=== PATIENT | male | born 1980 | race Caucasian/White ===

== ENCOUNTER 2022-11-13 21:36 | Emergency (ER) | payer MEDICARE, MEDICAID, SELFPAY ==
[2022-11-13 21:42] VITALS: BP 158/98; PULSE 115; RESP 18; TEMP 36.9; O2SAT 90; BMI 44.0
--- NOTE | 2022-11-13 21:42 | ED_ITS ---
HPI - General Adult General: Chief complaint: General Medical Stated complaint: BS 405, light headed Time Seen by Provider: 11/13/22 21:42 History of Present Illness: Mr. Nassar is a 42-year-old gentleman with history of diabetes presenting to the emergency department due to high blood sugar. Reports being at his baseline health though few weeks ago did have medication adjustment including decreasing insulin and discontinuing Eliquis. He reports blood sugars typically in the 100s range however this evening he noticed his blood sugar to be high. He notes associated generalized malaise, some nausea, lightheadedness. He is requiring oxygen and does not typically as well as he is currently tachycardic which is reportedly abnormal for him. Intensity symptoms is mild to moderate. Course has persisted. No other specific changes in health, exacerbating, or alleviating factors identified. Onset (ago): hour(s) Severity: moderate Relieving factors: none Exacerbating factors: none Associated symptoms: Reports malaise, nausea and other Review of Systems General: Reports: 10 or more systems reviewed and unremarkable except in HPI and below Const: Reports: malaise GI: Reports: nausea PFSH ED PFSH: Medical History Psychiatric care Social History Substance/Drug Use: never Physical Exam Const: COMMON NORMALS: patient oriented x3 and alert GENERAL APPEARANCE: cooperative and well developed HENMT: COMMON NORMALS: normocephalic and atraumatic HEAD & SCALP: normocephalic and atraumatic Eye: COMMON NORMALS: conjunctivae normal CONJUNCTIVA: Yes conjunctivae normal SCLERA: sclerae normal Neck/C-Spine: COMMON NORMALS: supple GENERAL: Yes trachea midline Resp: COMMON NORMALS: clear to auscultation bilaterally EFFORT & INSPECTION: Yes able to speak in complete sentences AUSCULTATION: clear to auscultation bilaterally Cardio: COMMON NORMALS: regular rhythm RATE: tachycardic RHYTHM: regular rhythm GI: COMMON NORMALS: Soft to palpation PALPATION: Yes Soft to palpation and No Tenderness to palpation present (GI) PERCUSSION: normal to percussion Extremity: GENERAL: Yes normal exam except as noted and No edema Neuro: COMMON NORMALS: patient oriented x3, CN's II-XII intact bilaterally, moves all extremities, no focal motor deficits and no sensory deficits noted SENSORIUM/ORIENTATION: Yes alert and No Orientation impaired Psych: COMMON NORMALS: mental status grossly normal and Normal thought process present THOUGHT PROCESS: Normal thought process present Course Vital Signs: Vital signs: Vital Signs Temperature 98.4 F 11/13/22 21:42 Pulse Rate 105 H 11/14/22 00:32 Respiratory Rate 18 11/13/22 21:42 Blood Pressure 163/84 11/14/22 00:30 Pulse Oximetry 89 L 11/14/22 00:32 Oxygen Delivery Me thod 11/14/22 00:32 Oxygen Flow Rate 2 11/14/22 00:32 MDM - General Adult Medical Decision Making 42-year-old gentleman presenting with asymptomatic high blood glucose. Exam as above. Patient is nontoxic appearance. Patient's room air oxygen saturation is on the low side of normal, he reports longstanding history of similar and perhaps has been prescribed oxygen in the past though he reports essentially had extensive evaluation without clear etiology identified in previous hospitalizations. ?Pickwickian etiology. No respiratory distress noted on exam. EKG notable for sinus tachycardia with nonspecific ST segment abnormalities, no STEMI. Labs with no leukocytosis, mildly elevated hemoglobin. Metabolic panel with mild spurious hyponatremia. Glucose is elevated with normal anion gap and bicarb, additional urine and serum ketones are negative. No evidence of UTI. Chest x-ray with basilar infiltrate. Patient for significant improved with insulin, fluids, RT treatments. He expresses a strong desire for discharge, he adamantly declines admission. Most likely etiology of patient symptoms is likely multifactorial, possible pneumonia and hyperglycemia. I will plan to add sliding scale acting insulin as well as treatment antibiotics. The results of ED evaluation were discussed with the patient including prescriptions and/or symptomatic cares (if applicable) including appropriate and responsible use, followup plan, and return precautions. The patient verbalized understanding and felt safe for discharge. Medical Records I reviewed the patient's medical records. Lab Data I reviewed the patient's lab results. 11/13/22 22:22 11/14/22 00:14 Radiology Impressions Chest X-Ray 11/13/22 21:58 IMPRESSION: 1. Mild bibasilar opacities may represent edema, inflammation, or infection. 2. No pneumothorax. No large pleural effusion. Laboratory Results WBC 5.3 10^3/uL (4.0-10.0) 11/13/22 22:22 RBC 5.97 10^6/uL (4.1-5.3) H 11/13/22 22:22 Hgb 16.9 g/dL (11.7-16.6) H 11/13/22 22:22 Hct 50.4 % (42.0-52.0) 11/13/22 22:22 MCV 84.4 fl (80-94) 11/13/22 22:22 MCH 28.3 pg (28.0-34.0) 11/13/22 22:22 MCHC 33.5 g/dL (30.0-36.0) 11/13/22 22: RDW 13.2 % (12.1-15.1) 11/13/22 22: Plt Count 204 10^3/cmm (130-400) 11/13/22 22:22 MPV 11.3 fL (7.4-10.4) H 11/13/22 22:22 Neut % (Auto) 48.3 % 11/13/22 22:22 Lymph % (Auto) 39.9 % 11/13/22 22:22 [place] % (Auto) 8.9 % 11/13/22 22:22 Eos % (Auto) 1.3 % 11/13/22 22: Baso % (Auto) 0.8 % 11/13/22 22:22 Neut # (Auto) 2.54 10^3/uL (1.8-7.7) 11/13/22 22:22 Lymph # (Auto) 2.1 10^3/uL (0.8-4.8) 11/13/22 22:22 [place] # (Auto) 0.5 10^3/uL (0.2-0.9) 11/13/22 22:22 Eos # (Auto) 0.1 10^3/uL (0.0-0.8) 11/13/22 22: Baso # (Auto) 0.0 10^3/uL (0.0-0.1) 11/13/22 22:22 Nucleated RBC % (auto) 0 % 11/13/22 22:22 Nucleated RBCs # 0.0 /100WBC 11/13/22 22:22 Specimen Type Venous 01/09/23 22:45 Sample Site Not specified 11/13/22 22:45 Misael Test N/a 11/13/22 22:45 VBG pH 7.43 (7.32-7.42) H 11/13/22 22:45 VBG pCO2 50.4 mmHg (41-51) 11/13/22 22:45 VBG pO2 30.1 mmHg (25-40) 11/13/22 22:45 VBG HCO3 33.2 mmol/L (24-28) H 11/13/22 22:45 VBG Base Excess 7.0 mmol/L (-3.0-3.0) H 11/13/22 22:45 VBG Hematocrit 51.4 % (42-52) 11/13/22 22:45 O2 Delivery Device 11/13/22 22:45 Information Systems Security Analyst ID Droch 11/13/22 22:45 Sodium 136 mmol/L (136-145) 11/14/22 00:14 Potassium 5.1 mmol/L (3.5-5.1) 11/14/22 00:14 Chloride 97 mmol/L (98-107) L 11/14/22 00:14 Carbon Dioxide 27 mmol/L (22-29) 11/14/22 00:14 Anion Gap 17.1 (5-19) 11/14/22 00:14 BUN 9 mg/dL (6-20) 11/14/22 00:14 Creatinine 0.8 mg/dL (0.7-1.2) 11/14/22 00:14 GFR Calculation 105.5 mL/min (90-130) 11/14/22 00:14 Glucose 325 mg/dL (65-115) H 11/14/22 00:14 POC Glucose 194 mg/dL (70-110) H 11/14/22 00:57 Calculated Osmolality 293 mOsm/kg (285-295) 11/14/22 00:14 Calcium 8.3 mg/dL (8.5-10.5) L 11/14/22 00:14 Total Bilirubin 0.2 mg/dL (0.15-1.2) 11/14/22 00:14 AST 11 U/L (0-40) 11/14/22 00:14 ALT 14 U/L (0-41) 11/14/22 00:14 Alkaline Phosphatase 84 U/L (40-130) 11/14/22 00:14 C-Reactive Protein 3.0 mg/L (0.0-4.9) 11/13/22 22:22 NT-Pro-B Natriuret Pep 5 pg/mL (0-125) 11/13/22 22:22 Total Protein 6.1 g/dL (6.6-8.7) L 11/14/22 00:14 Albumin 4.0 g/dL (3.5-5.2) 11/14/22 00:14 Globulin 2.1 g/dL (1.3-4.6) 11/14/22 00:14 Procalcitonin 0.05 ng/mL (0-0.5) 11/13/22 22:22 TSH 4.22 uIU/mL (0.27-4.20) H 11/13/22 22:22 Free T4 1.09 ng/dL (0.82-1.77) 11/13/22 22:22 Urine Color Colorless (Yellow) 11/13/22 23:00 Urine Appearance Clear (CLEAR) 11/13/22 23:00 Urine pH 8 (5-7) H 11/13/22 23:00 Ur Specific [place] 1.015 (1.005-1.030) 11/13/22 23:00 Urine Protein Neg (Negative) 11/13/22 23:00 Urine Glucose (UA) 4+ (Normal) H 11/13/22 23:00 Urine Ketones Negative (Negative) 11/13/22 23:00 Urine Blood Neg (Negative) 11/13/22 23:00 Urine Nitrate Negative (Negative) 11/13/22 23:00 Urine Bilirubin Neg (Negative) 11/13/22 23:00 Prot Sulfosalicylic Acd Negative (Negative) 11/13/22 23:00 Urine Urobilinogen Norm mg/dL (Negative) 11/13/22 23:00 Ur Leukocyte Esterase Negative (Negative) 11/13/22 23:00 Serum Ketones Negative (Negative) 11/13/22 22:22 Influenza Type A Ag negative (Negative) 11/13/22 22:15 Influenza Type B Ag negative (Negative) 11/13/22 22:15 SARS-CoV-2 Ag (Rapid) negative (Negative) 11/13/22 22:15 Discharge Plan Discharge Patient Disposition: Home Clinical Impression: Hyperglycemia, Pneumonia Condition: Stable Prescriptions: New insulin aspart U-100 100 unit/mL (3 mL) insulin pen See Rx Instructions .ROUTE .COMPLEX Qty: 15 0RF Rx Instructions: BG 150-199: 1 unit bolus, 200-249: 3 units bolus, 250-299: 5 units bolus, 300-349: 7 units bolus, BG Over 350: 8 units bolus Insulin amoxicillin-pot clavulanate 875-125 mg tablet 1 tab PO BID Qty: 20 0RF albuterol sulfate 90 mcg/actuation HFA aerosol inhaler 2 inh inhalation Q4H PRN (Reason: shortness of breath or wheezing) Qty: 8.5 0RF No Action Humulin 70/30 U-100 Insulin 100 unit/mL (70-30) suspension 10 unit SUBCUT DAILY clonazepam 1 mg tablet,disintegrating 1 mg PO DAILY haloperidol 2 mg tablet 2 mg PO BID sertraline 100 mg tablet 100 mg PO DAILY gabapentin 300 mg capsule 300 mg PO BID divalproex 500 mg tablet extended release 24 hr 500 mg PO DAILY prazosin 1 mg capsule 1 mg PO BID atorvastatin 40 mg tablet 40 mg PO DAILY metformin 500 mg tablet extended release 24hr 500 mg PO BID aspirin 81 mg tablet,delayed release (DR/EC) 81 mg PO DAILY trazodone 50 mg tablet 50 mg PO DAILY Jardiance 25 mg tablet 25 mg PO DAILY hydroxyzine HCl 50 mg tablet 50 mg PO QID PRN acetaminophen 500 mg capsule 500 mg PO QID PRN Antacid (calcium carbonate) 215 mg calcium (500 mg) tablet,chewable 215 mg PO BID Discharge Orders: Discharge ED (Routine); Ordered 11/14/22 Ordered By: Ra Boyd Discharge Diet: Diabetic Discharge Activity: Increase activity as tolerated Patient Instructions: Pneumonia (ED), Diabetic Hyperglycemia (ED) Activity Restrictions/Additional Instructions: Thank you for visiting the emergency department. You were seen and evaluated for high blood sugar. Exact cause of this is unclear though may be related to pneumonia or recent medication changes. I recommend reinitiation of insulin. Please check your blood sugar before meals and use the sliding scale as appropriate based on the results. Watch for signs of low blood sugar. * BG 150-199: 1 unit bolus Insulin * BG 200-249: 3 units bolus Insulin * BG 250-299: 5 units bolus Insulin * BG 300-349: 7 units bolus Insulin * BG Over 350: 8 units bolus Insulin Please follow-up with your primary care provider. Return to the emergency department for worsening symptoms or anything else that you are concerned about a feel needs emergency department evaluation. Coding Level of Care Code ED [employer]
--- NOTE | 2022-11-13 21:58 | XRR_ITS ---
PROCEDURE INFORMATION: Exam: XR Chest Exam date and time: 11/13/2022 10:04 PM Age: 42 years old Clinical indication: Pain; Other: Tachycardia; Additional info: Tachycardia, vomit, cough TECHNIQUE: Imaging protocol: Radiologic exam of the chest. Views: 1 view. COMPARISON: No relevant prior studies available. FINDINGS: Lungs: Opacities may represent edema, inflammation, or infection suspected linear opacity in the lateral right lung may represent atelectasis.. No consolidation. Pleural spaces: Unremarkable. No pleural effusion. No pneumothorax. Heart/Mediastinum: Suspected prominence of the cardiac silhouette on portable view.. Bones/joints: There are degenerative changes of the spine.. XR/XR chest 1V portable [id number] IMPRESSION: 1. Mild bibasilar opacities may represent edema, inflammation, or infection. 2. No pneumothorax. No large pleural effusion.
--- NOTE | 2022-11-13 22:09 | ECG_ITS ---
[facility] Test Date: 2022-11-13 Pat Name: Zaire Nassar Department: Room: Gender: Male Contract Writer: : 1980 Requested By: Ra Boyd Order Number: [id number] Drew MD: Skinny Talbert M.D. Measurements Intervals [place] Rate: 110 P: 46 TX: 181 QRS: 70 QRSD: 105 T: 30 QT: 322 QTc: 436 Interpretive Statements SINUS TACHYCARDIA LOW QRS VOLTAGE IN PRECORDIAL LEADS [QRS DEFLECTION < 1.0 mV IN CHEST LEADS] ANTEROSEPTAL MYOCARDIAL INFARCTION , OF INDETERMINATE AGE [40+ ms Q WAVE IN V1-V4] No previous ECG available for comparison Electronically Signed On 11-14-2022 11:57:49 BIOMASS BOILER OPERATOR by Skinny Talbert M.D. [id number]
[2022-11-13] MEDS: sodium chloride 0.9% 1,000 ML 999 ML IV (22:19)
[2022-11-13 22:28] LABS: Basophils % 0.8 %; Eosinophils # 0.1 10^3/uL (0.0-0.8); Eosinophils % 1.3 %; Hematocrit 50.4 % (42.0-52.0); Hemoglobin 16.9 g/dL (11.7-16.6); Lymphocytes # 2.1 10^3/uL (0.8-4.8); Lymphocytes % 39.9 %; Mean Corpuscular HGB Conc 33.5 g/dL (30.0-36.0); Mean Corpuscular Hemoglobin 28.3 pg (28.0-34.0); Mean Corpuscular Volume 84.4 fl (80-94); Mean Platelet Volume 11.3 fL (7.4-10.4); Monocytes # 0.5 10^3/uL (0.2-0.9); Monocytes % 8.9 %; Neutrophils # 2.54 10^3/uL (1.8-7.7); Neutrophils % 48.3 %; Nucleated Red Blood Cells % 0 %; Platelet Count 204 10^3/cmm (130-400); Red Blood Count 5.97 10^6/uL (4.1-5.3); Red Cell Distribution Width 13.2 % (12.1-15.1); White Blood Count 5.3 10^3/uL (4.0-10.0)
[2022-11-13 22:39] LABS: Influenza A by IFA negative (Negative); Influenza B by IFA negative (Negative)
[2022-11-13 22:40] LABS: SARS Covid-2 Antigen negative (Negative)
[2022-11-13 22:48] LABS: Ketone (Acetest) Serum Negative (Negative)
[2022-11-13 22:56] LABS: Blood Gas Sample Type Venous; HCO3 VBG 33.2 mmol/L (24-28); PCO2 VBG 50.4 mmHg (41-51); PO2 VBG 30.1 mmHg (25-40); Venous Blood Gas Hematocrit 51.4 % (42-52); pH VBG 7.43 (7.32-7.42)
[2022-11-13 23:04] LABS: Add Urine Microscopic? NO; Charge for UA Resulting for Rev
[2022-11-13 23:15] LABS: Bilirubin Urine Neg (Negative); Blood Urine Neg (Negative); Ketones Urine Negative (Negative); Nitrate Urine Negative (Negative); Protein Urine Neg (Negative); Specific Gravity, Urine 1.015 (1.005-1.030); Urine Appearance Clear (CLEAR); Urine Color Colorless (Yellow); pH Urine 8 (5-7)
[2022-11-13 23:16] LABS: Glucose Urine UA 4+ (Normal); Leukocyte Esterase Urine Negative (Negative); Sulfosalicylic Acid Urine Negative (Negative); Urobilinogen Urine Norm (Negative)
[2022-11-13 23:24] LABS: NT Pro B Type Natriuretic Pept 5 pg/mL (0-125); Procalcitonin 0.05 ng/mL (0-0.5); Thyroid Stimulating Hormone 4.22 uIU/mL (0.27-4.20)
[2022-11-14 00:14] LABS: Glucose Point of Care 340 mg/dL (70-110)
[2022-11-14] MEDS: ondansetron 2 mg/ML SDV 2 mL 4 MG IVP (00:15)
[2022-11-14] MEDS: insulin regular-human 100 units/1 mL 10 UNIT IVP (00:15)
[2022-11-14 00:30] VITALS: BP 163/84; PULSE 110; O2SAT 87
[2022-11-14] MEDS: ipratropium-albuterol 3 mL Neb INHALATION (00:31)
[2022-11-14 00:32] VITALS: PULSE 105; O2SAT 89
[2022-11-14 00:51] LABS: Alkaline Phosphatase 84 U/L (40-130); Blood Urea Nitrogen 9 mg/dL (6-20); Calcium 8.3 mg/dL (8.5-10.5); Carbon Dioxide 27 mmol/L (22-29); Chloride 97 mmol/L (98-107); Globulin 2.1 g/dL (1.3-4.6); Glomerular Filtration Rate 105.5 mL/min (90-130); Glucose 325 mg/dL (65-115); Osmolality Calculated 293 mOsm/kg (285-295); Sodium 136 mmol/L (136-145); Total Bilirubin 0.2 mg/dL (0.15-1.2); Total Protein 6.1 g/dL (6.6-8.7)
[2022-11-14 00:59] LABS: Free T4 Free Thyroxine 1.09 ng/dL (0.82-1.77)
[2022-11-14 01:01] LABS: Glucose Point of Care 194 mg/dL (70-110)
[2022-11-14 01:03] LABS: Anion Gap 17.1 (5-19); Potassium 5.1 mmol/L (3.5-5.1)
[2022-11-14] MEDS: amoxicillin-clav 875-125 mg Tablet 1 TAB PO (01:09)
[2022-11-14 01:47] LABS: Alanine Aminotransferase 14 U/L (0-41); Aspartate Amino Transferase 11 U/L (0-40)
[2022-11-14 16:30] LABS: Blood Gas Sample Site Not specified
== END 2022-11-14 01:09 | disposition home or self-care (01) ==
PROVIDERS: Emergency Provider Emergency Medicine
DX: R73.9 Hyperglycemia, unspecified (principal); J18.9 Pneumonia, unspecified organism; Z79.82 Long term (current) use of aspirin; Z79.4 Long term (current) use of insulin; Z79.84 Long term (current) use of oral hypoglycemic drugs; Z20.822 Contact with and (suspected) exposure to COVID-19
CPT/HCPCS: 36416; 71045; 80053; 81003; 82009; 82803; 82962; 83880; 84145; 84439; 84443; 85025; 86140; 87426; 87804; 93005; 94640; 96361; 96374; 96375; 99285; J1815; J2405; J7030

== ENCOUNTER 2022-11-20 21:13 | Emergency (ER) | payer MEDICARE, MEDICAID, SELFPAY ==
[2022-11-20 21:23] VITALS: BP 141/79; PULSE 123; RESP 20; TEMP 36.4; O2SAT 91
--- NOTE | 2022-11-20 21:34 | ECG_ITS ---
[facility] Test Date: 2022-11-20 Pat Name: Zaire Nassar Department: Room: Gender: Male Skills Trainer: : 1980 Requested By: Wale Vyas Order Number: [id number] Drew MD: Skinny Talbert M.D. Measurements Intervals [place] Rate: 125 P: 54 [place]: 170 QRS: -22 QRSD: 120 T: 34 QT: 314 QTc: 453 Interpretive Statements SINUS TACHYCARDIA INDETERMINATE AXIS ANTEROSEPTAL MYOCARDIAL INFARCTION , OF INDETERMINATE AGE [40+ ms Q WAVE IN V1-V4] Compared to ECG 11/13/2022 22:09:25 Indeterminate axis now present Myocardial infarct finding still present Electronically Signed On 11-21-2022 14:45:19 MANAGER OF DISASTER RECOVERY by Skinny Talbert M.D. [id number]
--- NOTE | 2022-11-20 21:41 | CTR_ITS ---
PROCEDURE INFORMATION: Exam: CT Head Without Contrast Exam date and time: 11/20/2022 10:12 PM Age: 42 years old Clinical indication: Syncope and collapse TECHNIQUE: Imaging protocol: Computed tomography of the head without contrast. Radiation optimization: All CT scans at this facility use at least one of these dose optimization techniques: automated exposure control; mA and/or kV adjustment per patient size (includes targeted exams where dose is matched to clinical indication); or iterative reconstruction. COMPARISON: No relevant prior studies available. RADIATION DOSE METRICS: Total DLP (mGy-cm): 1164.68 FINDINGS: Brain: No CT evidence for acute ischemia, mass or hemorrhage. No extra-axial fluid collection, midline shift hydrocephalus. Cerebral ventricles: See Brain finding. Paranasal sinuses: Visualized sinuses are unremarkable. No fluid levels. Mastoid air cells: Visualized mastoid air cells are well aerated. Bones/joints: Unremarkable. No acute fracture. Soft tissues: Unremarkable. CT/CT head wo con* [id number] IMPRESSION: No significant findings
--- NOTE | 2022-11-20 21:41 | XRR_ITS ---
PROCEDURE INFORMATION: Exam: XR Chest Exam date and time: 11/20/2022 9:50 PM Age: 42 years old Clinical indication: Shortness of breath; Additional info: Syncope TECHNIQUE: Imaging protocol: Radiologic exam of the chest. Views: 1 view. COMPARISON: CR (CHEST, ) 11/13/2022 10:04 PM FINDINGS: Lungs: Unremarkable. No consolidation. Pleural spaces: Unremarkable. No pleural effusion. No pneumothorax. Heart/Mediastinum: Unremarkable. No cardiomegaly. Bones/joints: Unremarkable. XR/XR chest 1V portable [id number] IMPRESSION: No significant findings.
--- NOTE | 2022-11-20 21:49 | CTR_ITS ---
PROCEDURE INFORMATION: Exam: CTA Chest With Contrast Exam date and time: 11/20/2022 10:17 PM Age: 42 years old Clinical indication: Shortness of breath and other: Syncope; Additional info: SOB TECHNIQUE: Imaging protocol: Computed tomographic angiography of the chest with contrast. 3D rendering (Not supervised by radiologist): MIP and/or 3D reconstructed images were created by the technologist. Radiation optimization: All CT scans at this facility use at least one of these dose optimization techniques: automated exposure control; mA and/or kV adjustment per patient size (includes targeted exams where dose is matched to clinical indication); or iterative reconstruction. Contrast material: OMNI 350; Contrast volume: 95 ml; Contrast route: INTRAVENOUS (IV); COMPARISON: CR (CHEST, ) 11/20/2022 9:50 PM RADIATION DOSE METRICS: Total DLP (mGy-cm): 485.31 FINDINGS: Pulmonary arteries: Overall exam quality is moderate to good for evaluating the pulmonary arteries although the peripheral vessels are somewhat blurred by motion. There are no convincing intraluminal filling defects to indicate pulmonary embolism. Aorta: Unremarkable. No aortic aneurysm. No aortic dissection. Lungs: Unremarkable. No consolidation. No masses. Pleural spaces: Unremarkable. No pneumothorax. No pleural effusion. Heart: Unremarkable. No cardiomegaly. No pericardial effusion. Coronary arteries: There is minimal calcified plaque in the coronary arteries. Lymph nodes: Unremarkable. No enlarged lymph nodes. Bones/joints: Unremarkable. No acute fracture. Soft tissues: Unremarkable. Other findings: Central mediastinal structures are somewhat blurred by respiratory motion artifact. CT/CT angio chest PE protcl [id number] IMPRESSION: 1. No pulmonary embolism or pneumonia. 2. No significant chest findings.
--- NOTE | 2022-11-20 21:57 | W.ED.SYNCOPE ---
HPI - Syncope General: Chief Complaint: Syncope Stated Complaint: collapsed, high BS, elevated vitals,pnuemonia Time Seen by Provider: 11/20/22 21:41 Source: patient Mode of arrival: ambulatory Limitations: no limitations History of Present Illness: 42-year-old male has a history of intellectual delay and diabetes states over last 2 weeks he been having cough congestion he is currently on antibiotics for a slight pneumonia caregiver states she was there tonight checking his blood pressure and had a syncopal event that lasted roughly 3 to 4 minutes. She states she discharged and went in and found him down he was difficult to arouse patient does not remember this he states that he feels slightly short of breath he denies any pain he is tachycardic here no vomiting or diarrhea. His blood sugar was in the 400s tonight. Associated symptoms: Deny abdominal pain, fever(s), headache(s) or nausea Review of Systems Const: Denies: fever(s), chills, body aches or change in appetite Eyes: Denies: blurry vision or eye discomfort ENMT: Denies: throat pain or dental pain Card: Reports: syncope Resp: Reports: dyspnea GI: Denies: abdominal pain, nausea, vomiting or diarrhea : Denies: dysuria Musc: Denies: neck pain or back pain Skin/Breast: Denies: rash Neuro: Denies: headache(s) Psych: Denies: depression Rayo/Lymph: Denies: easy bruising All/Imm: Denies: urticaria PFSH ED PFSH: Medical History Psychiatric care Social History (Updated 11/20/22 @ 21:59 by Wale Vyas MD) Substance/Drug Use: never Physical Exam Const: COMMON NORMALS: no acute distress, patient oriented x3 and healthy appearing HENMT: COMMON NORMALS: normocephalic and atraumatic HEAD & SCALP: normocephalic and atraumatic Eye: COMMON NORMALS: Equal, round and reactive pupils present and EOMs intact bilaterally PUPIL: Yes Equal, round and reactive pupils present Neck/C-Spine: COMMON NORMALS: full ROM and supple Chest: COMMONS NORMALS: normal inspection of the chest and normal palpation of entire chest wall Resp: COMMON NORMALS: normal respiratory effort, No retractions, No use of accessory muscles and clear to auscultation bilaterally AUSCULTATION: clear to auscultation bilaterally Cardio: COMMON NORMALS: regular rhythm and No murmurs present (Cardio) RATE: tachycardic RHYTHM: regular rhythm GI: COMMON NORMALS: Normal to inspection, nondistended, normoactive bowel sounds present, Soft to palpation, non-tender and no masses PALPATION: Yes Soft to palpation Extremity: COMMON NORMALS: normal to inspection and full ROM Neuro: COMMON NORMALS: patient oriented x3, moves all extremities and no focal motor deficits Psych: COMMON NORMALS: mental status grossly normal, Normal thought process present and cooperative THOUGHT PROCESS: Normal thought process present Skin: COMMON NORMALS: no rashes or lesions noted and no wounds GENERAL SKIN EXAM: no rashes or lesions noted Course Vital Signs: Vital signs: Vital Signs Temperature 97.5 F L 11/20/22 21:23 Pulse Rate 117 H 11/20/22 22:28 Respiratory Rate 20 H 11/20/22 22:28 Blood Pressure 144/90 11/20/22 22:28 Pulse Oximetry 89 L 11/20/22 22:28 Oxygen Delivery Me thod 11/20/22 22:28 MDM - Syncope Medical Decision Making Patient presents here with a syncopal event CT angio here is normal his blood work is all normal he feels improved here as well his glucose is improved he stable for discharge he is to follow-up with PCP and return if worsening he understands agrees to plan. Lab Data 11/20/22 22:00 11/20/22 22:00 Radiology Impressions Chest X-Ray 11/20/22 21:41 IMPRESSION: No significant findings. Head CT 11/20/22 21:41 IMPRESSION: No significant findings Chest CTA 11/20/22 21:49 IMPRESSION: 1. No pulmonary embolism or pneumonia. 2. No significant chest findings. Laboratory Results WBC 4.7 10^3/uL (4.0-10.0) 11/20/22 22:00 RBC 5.77 10^6/uL (4.1-5.3) H 11/20/22 22:00 Hgb 16.2 g/dL (11.7-16.6) 11/20/22 22:00 Hct 49.4 % (42.0-52.0) 11/20/22 22:00 MCV 85.6 fl (80-94) 11/20/22 22:00 MCH 28.1 pg (28.0-34.0) 11/20/22 22:00 MCHC 32.8 g/dL (30.0-36.0) 11/20/22 22:00 RDW 13.6 % (12.1-15.1) 11/20/22 22:00 Plt Count 162 10^3/cmm (130-400) 11/20/22 22:00 MPV 10.9 fL (7.4-10.4) H 11/20/22 22:00 Neut % (Auto) 50.4 % 11/20/22 22:00 Lymph % (Auto) 35.5 % 11/20/22 22:00 [place] % (Auto) 9.9 % 11/20/22 22:00 Eos % (Auto) 1.3 % 11/20/22 22:00 Baso % (Auto) 0.6 % 11/20/22 22:00 Neut # (Auto) 2.38 10^3/uL (1.8-7.7) 11/20/22 22:00 Lymph # (Auto) 1.7 10^3/uL (0.8-4.8) 11/20/22 22:00 [place] # (Auto) 0.5 10^3/uL (0.2-0.9) 11/20/22 22:00 Eos # (Auto) 0.1 10^3/uL (0.0-0.8) 11/20/22 22:00 Baso # (Auto) 0.0 10^3/uL (0.0-0.1) 11/20/22 22:00 Nucleated RBC % (auto) 0 % 11/20/22 22:00 Nucleated RBCs # 0.0 /100WBC 11/20/22 22:00 Specimen Type Arterial 11/20/22 21:41 Sample Site Radial, right 11/20/22 21:41 ABG pH 7.40 (7.35-7.45) 11/20/22 21:41 ABG pCO2 50.2 mmHg (35-45) H 11/20/22 21:41 ABG pO2 53.6 mmHg (80.0-100.0) L 11/20/22 21:41 ABG HCO3 31.0 mmol/L (22-26) H 11/20/22 21:41 ABG Base Excess 4.9 mmol/L (-2.0-2.0) H 11/20/22 21:41 Misael Test Pos 11/20/22 21:41 Hematocrit 48.4 % (42-52) 11/20/22 21:41 O2 Delivery Device Room air 11/20/22 21:41 Passenger Interline Clerk ID [email or web address] 11/20/22 21:41 Sodium 133 mmol/L (136-145) L 11/20/22 22:00 Potassium 4.2 mmol/L (3.5-5.1) 11/20/22 22:00 Chloride 92 mmol/L (98-107) L 11/20/22 22:00 Carbon Dioxide 29 mmol/L (22-29) 11/20/22 22:00 Anion Gap 16.2 (5-19) 11/20/22 22:00 BUN 12 mg/dL (6-20) 11/20/22 22:00 Creatinine 1.2 mg/dL (0.7-1.2) 11/20/22 22:00 GFR Calculation 66.1 mL/min (90-130) L 11/20/22 22:00 Glucose 403 mg/dL (65-115) H 11/20/22 22:00 POC Glucose 363 mg/dL (70-110) H 11/20/22 22:40 Calculated Osmolality 293 mOsm/kg (285-295) 11/20/22 22:00 Lactate 2.6 mmol/L (0.5-2.2) H 11/20/22 22:00 Calcium 9.3 mg/dL (8.5-10.5) 11/20/22 22:00 Total Bilirubin 0.2 mg/dL (0.15-1.2) 11/20/22 22:00 Alkaline Phosphatase 75 U/L (40-130) 11/20/22 22:00 Troponin T Baseline 9 ng/L (0-15) 11/20/22 22:00 NT-Pro-B Natriuret Pep 5 pg/mL (0-125) 11/20/22 22:00 Total Protein 7.0 g/dL (6.6-8.7) 11/20/22 22:00 Albumin 4.3 g/dL (3.5-5.2) 11/20/22 22:00 Globulin 2.7 g/dL (1.3-4.6) 11/20/22 22:00 Urine Color Light yellow (Yellow) 11/20/22 21: Urine Appearance Clear (CLEAR) 11/20/22 21:23 Urine pH 5 (5-7) 11/20/22 21:23 Ur Specific [place] 1.005 (1.005-1.030) 11/20/22 21:23 Urine Protein Neg (Negative) 11/20/22 21: Urine Glucose (UA) 4+ (Normal) H 11/20/22 21: Urine Ketones Negative (Negative) 11/20/22 21: Urine Blood Neg (Negative) 11/20/22: Urine Nitrate Negative (Negative) 11/20/22: Urine Bilirubin Neg (Negative) 11/20/22 21: Urine Urobilinogen Norm mg/dL (Negative) 11/20/22 21: Ur Leukocyte Esterase Negative (Negative) 11/20/22 21: Serum Ketones Negative (Negative) 11/20/22 22:00 EKG Data EKG 1: I personally reviewed and interpreted this EKG as follows: EKG interpretation date: 11/20/22 EKG interpretation time: 21:34 Interpretation: sinus tach hr [address] or t wave abnormalities qrs 120 qtc 388 Discharge Plan Discharge Patient Disposition: Home Clinical Impression: Syncope Condition: Stable Prescriptions: No Action Humulin 70/30 U-100 Insulin 100 unit/mL (70-30) suspension 10 unit SUBCUT DAILY clonazepam 1 mg tablet,disintegrating 1 mg PO DAILY haloperidol 2 mg tablet 2 mg PO BID sertraline 100 mg tablet 100 mg PO DAILY gabapentin 300 mg capsule 300 mg PO BID divalproex 500 mg tablet extended release 24 hr 500 mg PO DAILY prazosin 1 mg capsule 1 mg PO BID atorvastatin 40 mg tablet 40 mg PO DAILY metformin 500 mg tablet extended release 24hr 500 mg PO BID aspirin 81 mg tablet,delayed release (DR/EC) 81 mg PO DAILY trazodone 50 mg tablet 50 mg PO DAILY Jardiance 25 mg tablet 25 mg PO DAILY hydroxyzine HCl 50 mg tablet 50 mg PO QID PRN acetaminophen 500 mg capsule 500 mg PO QID PRN Antacid (calcium carbonate) 215 mg calcium (500 mg) tablet,chewable 215 mg PO BID insulin aspart U-100 100 unit/mL (3 mL) insulin pen See Rx Instructions .ROUTE .COMPLEX Qty: 15 0RF Rx Instructions: BG 150-199: 1 unit bolus, 200-249: 3 units bolus, 250-299: 5 units bolus, 300-349: 7 units bolus, BG Over 350: 8 units bolus Insulin amoxicillin-pot clavulanate 875-125 mg tablet 1 tab PO BID Qty: 20 0RF albuterol sulfate 90 mcg/actuation HFA aerosol inhaler 2 inh inhalation Q4H PRN (Reason: shortness of breath or wheezing) Qty: 8.5 0RF Discharge Orders: Discharge ED (Routine); Ordered 11/20/22 Ordered By: Wale Vyas Discharge Diet: Advance as tolerated Discharge Activity: Resume usual activity Patient Instructions: Syncope (ED) Coding Level of Care Code ED Nurse Case Management for Dasha Fwd Exam Comprehensive
[2022-11-20 22:03] LABS: Add Urine Microscopic? NO; Charge for UA Resulting for Rev
[2022-11-20] MEDS: sodium chloride 0.9% 1,000 ML 999 ML IV ×2 (22:08→22:45)
[2022-11-20 22:18] LABS: Bilirubin Urine Neg (Negative); Blood Urine Neg (Negative); Glucose Urine UA 4+ (Normal); Ketones Urine Negative (Negative); Leukocyte Esterase Urine Negative (Negative); Nitrate Urine Negative (Negative); Protein Urine Neg (Negative); Specific Gravity, Urine 1.005 (1.005-1.030); Urine Appearance Clear (CLEAR); Urine Color Light yellow (Yellow); Urobilinogen Urine Norm (Negative); pH Urine 5 (5-7)
[2022-11-20 22:23] LABS: Basophils % 0.6 %; Eosinophils # 0.1 10^3/uL (0.0-0.8); Eosinophils % 1.3 %; Hematocrit 49.4 % (42.0-52.0); Hemoglobin 16.2 g/dL (11.7-16.6); Lymphocytes # 1.7 10^3/uL (0.8-4.8); Lymphocytes % 35.5 %; Mean Corpuscular HGB Conc 32.8 g/dL (30.0-36.0); Mean Corpuscular Hemoglobin 28.1 pg (28.0-34.0); Mean Corpuscular Volume 85.6 fl (80-94); Mean Platelet Volume 10.9 fL (7.4-10.4); Monocytes # 0.5 10^3/uL (0.2-0.9); Monocytes % 9.9 %; Neutrophils # 2.38 10^3/uL (1.8-7.7); Neutrophils % 50.4 %; Nucleated Red Blood Cells % 0 %; Platelet Count 162 10^3/cmm (130-400); Red Blood Count 5.77 10^6/uL (4.1-5.3); Red Cell Distribution Width 13.6 % (12.1-15.1); White Blood Count 4.7 10^3/uL (4.0-10.0)
[2022-11-20] MEDS: iohexol 350 mg/mL 500 mL Btl (per mL) IV (22:23)
[2022-11-20 22:28] VITALS: BP 144/90; PULSE 117; RESP 20; O2SAT 89
[2022-11-20 22:29] LABS: ABG PCO2 50.2 mmHg (35-45); Arterial Blood Gas Hematocrit 48.4 % (42-52); Base Excess ABG 4.9 mmol/L (-2.0-2.0); Blood Gas Allen Test Pos; Blood Gas Sample Site Radial, right; Blood Gas Sample Type Arterial; Oxygen Device ROOM AIR; PO2 ABG 53.6 mmHg (80.0-100.0)
[2022-11-20 22:31] LABS: Lactate (Lactic Acid level) 2.6 mmol/L (0.5-2.2)
[2022-11-20 22:32] LABS: Troponin(5th) Baseline 9 ng/L (0-15)
[2022-11-20 22:36] LABS: Ketone (Acetest) Serum Negative (Negative)
[2022-11-20 22:37] LABS: Albumin Level 4.3 g/dL (3.5-5.2); Alkaline Phosphatase 75 U/L (40-130); Anion Gap 16.2 (5-19); Blood Urea Nitrogen 12 mg/dL (6-20); Calcium 9.3 mg/dL (8.5-10.5); Carbon Dioxide 29 mmol/L (22-29); Chloride 92 mmol/L (98-107); Globulin 2.7 g/dL (1.3-4.6); Glomerular Filtration Rate 66.1 mL/min (90-130); Glucose 403 mg/dL (65-115); NT Pro B Type Natriuretic Pept 5 pg/mL (0-125); Osmolality Calculated 293 mOsm/kg (285-295); Potassium 4.2 mmol/L (3.5-5.1); Sodium 133 mmol/L (136-145); Total Bilirubin 0.2 mg/dL (0.15-1.2)
[2022-11-20 22:43] LABS: Glucose Point of Care 363 mg/dL (70-110)
[2022-11-20] MEDS: insulin regular-human 100 units/1 mL 5 UNIT IVP (22:47)
[2022-11-20 23:32] LABS: Alanine Aminotransferase 25 U/L (0-41); Aspartate Amino Transferase 54 U/L (0-40)
== END 2022-11-20 23:28 | disposition home or self-care (01) ==
PROVIDERS: Emergency Provider Emergency Medicine
DX: R55 Syncope and collapse (principal); Z79.4 Long term (current) use of insulin; Z79.84 Long term (current) use of oral hypoglycemic drugs; Z79.82 Long term (current) use of aspirin
CPT/HCPCS: 36416; 36600; 70450; 71045; 71275; 80053; 81003; 82009; 82803; 82962; 83605; 83880; 84484; 85025; 93005; 96361; 96374; 99285; J1815; J7030; Q9967

== ENCOUNTER → 2022-11-24 11:56 | Outpatient (BNVA) | payer MEDICARE, MEDICAID, SELFPAY | PROVIDERS: PCP Family Medicine; Visit Provider Emergency Medicine | DX: M79.641 Pain in right hand (principal); S62.141A Displaced fracture of body of hamate [unciform] bone, right wrist, initial encounter for closed fracture; S62.111A Displaced fracture of triquetrum [cuneiform] bone, right wrist, initial encounter for closed fracture; W22.01XA Walked into wall, initial encounter | CPT/HCPCS: 73130 ==

== ENCOUNTER → 2022-12-07 11:52 | Outpatient (BNVA) | payer MEDICARE, MEDICAID, SELFPAY | PROVIDERS: PCP Family Medicine; Referring Provider Emergency Medicine; Visit Provider Student in an Organized Health Care Education/Training Program | DX: S52.501A Unspecified fracture of the lower end of right radius, initial encounter for closed fracture (principal); S62.141A Displaced fracture of body of hamate [unciform] bone, right wrist, initial encounter for closed fracture; S62.111A Displaced fracture of triquetrum [cuneiform] bone, right wrist, initial encounter for closed fracture; W22.09XA Striking against other stationary object, initial encounter | CPT/HCPCS: 73110 ==

== ENCOUNTER 2022-12-07 14:41 | Outpatient (CLI) | payer MEDICARE, MEDICAID, SELFPAY | END 2022-12-07 14:42 | disposition home or self-care (01) | LOC: SPT 14:42 | PROVIDERS: PCP Family Medicine; Visit Provider Student in an Organized Health Care Education/Training Program | DX: Z46.89 Encounter for fitting and adjustment of other specified devices (principal); S62.141D Displaced fracture of body of hamate [unciform] bone, right wrist, subsequent encounter for fracture with routine healing; X58.XXXD Exposure to other specified factors, subsequent encounter | CPT/HCPCS: 97760; 99204; L3984 ==

== ENCOUNTER 2022-12-19 18:51 | Emergency (ER) | payer MEDICARE, MEDICAID, SELFPAY ==
[2022-12-19 19:00] VITALS: BP 137/88; PULSE 122; TEMP 36.3; O2SAT 93; BMI 40.6
[2022-12-19 19:58] VITALS: BP 138/85; PULSE 106; RESP 16; O2SAT 95
[2022-12-19] MEDS: acetaminophen 325 mg Tablet 650 MG PO (20:23)
[2022-12-19 20:28] LABS: Add Urine Microscopic? NO; Charge for UA Resulting for Rev
--- NOTE | 2022-12-19 20:33 | ED_ITS ---
HPI - Male Genitourinary General: Chief complaint: Urogenital-Male Stated complaint: low back pain Time Seen by Provider: 12/19/22 19:10 History of Present Illness: Patient presents to the emergency department today accompanied by staff from his care center for evaluation and treatment of right- sided low back pain with slight radiation laterally to the flank. He reports his pain 8 out of 10 and very sharp. He states that it started just this evening and he had 2 episodes of vomiting. No diarrhea. He denies any active nausea or abdominal pains. He does have some headache. Patient states he has been tolerating p.o. intake and admits that he does not typically drink water-he prefers tea or soda. He has not noticed any blood in his urine. He has had both chills and sweats without any recorded fevers. Patient has a history of type 2 diabetes and reports a history of CKD as well. Associated symptoms: Reports vomiting (x2); Deny dysuria or hematuria Review of Systems General: Reports: 10 or more systems reviewed and unremarkable except in HPI and below GI: Reports: vomiting (x2); Denies: abdominal pain or diarrhea : Reports: flank pain; Denies: difficulty urinating, dysuria or hematuria Musc: Reports: back pain [facility] ED PFSH: Medical History [facility] Social History Smoking and tobacco status: current every day smoker e-cigarettes Alcohol intake: current Alcohol intake frequency: few times a month Marital status: Single Physical Exam Const: COMMON NORMALS: no acute distress, patient oriented x3 and alert HENMT: COMMON NORMALS: normocephalic, atraumatic, hearing grossly normal bilaterally and moist oral mucous membranes HEAD & SCALP: normocephalic and atraumatic Eye: COMMON NORMALS: Equal, round and reactive pupils present, EOMs intact bilaterally and conjunctivae normal CONJUNCTIVA: Yes conjunctivae normal PUPIL: Yes Equal, round and reactive pupils present Neck/C-Spine: COMMON NORMALS: full ROM and no JVD Lymph: LYMPHATIC: no lymphadenopathy noted Resp: COMMON NORMALS: normal respiratory effort, No retractions, No use of accessory muscles and clear to auscultation bilaterally AUSCULTATION: clear to auscultation bilaterally Cardio: COMMON NORMALS: no JVD, regular rate and regular rhythm RATE: regular rate RHYTHM: regular rhythm : COMMON NORMALS: Yes no CVA tenderness BLADDER/KIDNEY EXAM: Yes no CVA tenderness Back/Pelvis: COMMON NORMALS: no CVA tenderness and thoraco-lumbar ROM normal; negative for no thoracic nor lumbar tenderness LUMBAR SPINE/LOWER BACK: Yes normal to inspection, Yes lumbar ROM normal and Yes paraspinal muscle tenderness Extremity: COMMON NORMALS: normal to inspection, full ROM and capillary refill normal Neuro: COMMON NORMALS: patient oriented x3 SENSORIUM/ORIENTATION: Yes alert Psych: COMMON NORMALS: mental status grossly normal, Normal thought process present, cooperative, normal affect and activity/motor behavior normal MOOD & AFFECT: Yes anxious THOUGHT PROCESS: Normal thought process present Skin: COMMON NORMALS: no rashes or lesions noted and no wounds GENERAL SKIN EXAM: no rashes or lesions noted Course Vital Signs: Vital signs: Vital Signs Temperature 97.4 F L 12/19/22 19:00 Pulse Rate 100 12/20/22 00:03 Respiratory Rate 16 12/20/22 00:03 Blood Pressure 149/105 12/20/22 00:03 Pulse Oximetry 94 12/20/22 00:03 Oxygen Delivery Me thod 12/19/22 19:58 MDM - Male Medical Decision Making Patient presents to the emergency department today with various concerns of right lower back and flank pain associated with 2 random episodes of vomiting this evening. Patient states he has no abdominal pains and is not nauseated. He had no fevers or diarrhea with this. Patient does have a history of chronic kidney disease as well as type 2 diabetes and, given the location of his discomfort, was worried about his kidneys. Patient's lab work does show a slight decrease in his kidney function however, it is the exact same as it was a month or 2 ago. Creatinine was still within normal limits. Patient has 4+ glucose in his urine however, patient tends to have that much glucose in his urinalysis specimens per previous lab work review. Patient's blood sugar is 266. He shows no signs of acute infection. Patient does not drink clear fluids. He admits he drinks fruit punch, fruit juices and soda. We discussed the amount of sugar intake he currently is having and encouraged him to track his sugar intake and closely monitor his diet. Given that I do not have an exact reason why he is having discomfort in his low back and flank area, I did offer him CT examination to further evaluate for potential colitis, kidney stone, constipation? However, at this point patient declines. Patient indicated he was anxious to leave however, he was going to be receiving some fluids to help flush his kidneys and improve his GFR and also requested a food tray before leaving. Patient's paperwork had strict return precautions for change or worsening of symptoms including any new onset of abdominal pains, fever, return of vomiting, or bloody stools. Differential Diagnosis Likely urinary tract infection (kidney stone, colitis, back strain, constipation) Lab Data 12/19/22 20:35 12/19/22 20:35 Laboratory Results WBC 7.4 10^3/uL (4.0-10.0) 12/19/22 20:35 RBC 5.82 10^6/uL (4.1-5.3) H 12/19/22 20:35 Hgb 16.3 g/dL (11.7-16.6) 12/19/22 20:35 Hct 48.6 % (42.0-52.0) 12/19/22 20:35 MCV 83.5 fl (80-94) 12/19/22 20:35 MCH 28.0 pg (28.0-34.0) 12/19/22 20:35 MCHC 33.5 g/dL (30.0-36.0) 12/19/22 20:35 RDW 14.5 % (12.1-15.1) 12/19/22 20:35 Plt Count 182 10^3/cmm (130-400) 12/19/22 20:35 MPV 10.2 fL (7.4-10.4) 12/19/22 20:35 Neut % (Auto) 54.8 % 12/19/22 20:35 Lymph % (Auto) 35.9 % 12/19/22 20:35 [place] % (Auto) 7.2 % 12/19/22 20:35 Eos % (Auto) 0.8 % 12/19/22 20:35 Baso % (Auto) 0.5 % 12/19/22 20:35 Neut # (Auto) 4.06 10^3/uL (1.8-7.7) 12/19/22 20:35 Lymph # (Auto) 2.7 10^3/uL (0.8-4.8) 12/19/22 20:35 [place] # (Auto) 0.5 10^3/uL (0.2-0.9) 12/19/22 20:35 Eos # (Auto) 0.1 10^3/uL (0.0-0.8) 12/19/22 20:35 Baso # (Auto) 0.0 10^3/uL (0.0-0.1) 12/19/22 20:35 Nucleated RBC % (auto) 0 % 12/19/22 20:35 Nucleated RBCs # 0.0 /100WBC 12/19/22 20:35 Sodium 136 mmol/L (136-145) 12/19/22 20:35 Potassium 4.0 mmol/L (3.5-5.1) 12/19/22 20:35 Chloride 95 mmol/L (98-107) L 12/19/22 20:35 Carbon Dioxide 27 mmol/L (22-29) 12/19/22 20:35 Anion Gap 18.0 (5-19) 12/19/22 20:35 BUN 18 mg/dL (6-20) 12/19/22 20:35 Creatinine 1.2 mg/dL (0.7-1.2) 12/19/22 20:35 GFR Calculation 66.1 mL/min (90-130) L 12/19/22 20:35 Glucose 266 mg/dL (65-115) H 12/19/22 20:35 Calculated Osmolality 293 mOsm/kg (285-295) 12/19/22 20:35 Calcium 9.3 mg/dL (8.5-10.5) 12/19/22 20:35 Total Bilirubin 0.2 mg/dL (0.15-1.2) 12/19/22 20:35 AST 11 U/L (0-40) 12/19/22 20:35 ALT 15 U/L (0-41) 12/19/22 20:35 Alkaline Phosphatase 78 U/L (40-130) 12/19/22 20:35 Total Protein 6.9 g/dL (6.6-8.7) 12/19/22 20:35 Albumin 4.5 g/dL (3.5-5.2) 12/19/22 20:35 Globulin 2.4 g/dL (1.3-4.6) 12/19/22 20:35 Urine Color Colorless (Yellow) 12/19/22 19:49 Urine Appearance Clear (CLEAR) 12/19/22 19:49 Urine pH 6 (5-7) 12/19/22 19:49 Ur Specific [place] 1.005 (1.005-1.030) 12/19/22 19:49 Urine Protein Not Reportable 12/19/22 19:49 Urine Glucose (UA) 4+ (Normal) H 12/19/22 19:49 Urine Ketones 1+ (Negative) H 12/19/22 19:49 Urine Blood Not Reportable 12/19/22 19:49 Urine Nitrate Not Reportable 12/19/22 19:49 Urine Bilirubin Not Reportable 12/19/22 19:49 Urine Urobilinogen Not Reportable 12/19/22 19:49 Ur Leukocyte Esterase Not Reportable 12/19/22 19:49 Discharge Plan Discharge Patient Disposition: Home Clinical Impression: Decreased calculated GFR, Elevated blood sugar level, Right flank pain Condition: Stable Prescriptions: No Action Humulin 70/30 U-100 Insulin 100 unit/mL (70-30) suspension 10 unit SUBCUT DAILY clonazepam 1 mg tablet,disintegrating 1 mg PO DAILY haloperidol 2 mg tablet 2 mg PO BID sertraline 100 mg tablet 100 mg PO DAILY gabapentin 300 mg capsule 300 mg PO BID divalproex 500 mg tablet extended release 24 hr 500 mg PO DAILY prazosin 1 mg capsule 1 mg PO BID atorvastatin 40 mg tablet 40 mg PO DAILY metformin 500 mg tablet extended release 24hr 500 mg PO BID aspirin 81 mg tablet,delayed release (DR/EC) 81 mg PO DAILY trazodone 50 mg tablet 50 mg PO DAILY Jardiance 25 mg tablet 25 mg PO DAILY hydroxyzine HCl 50 mg tablet 50 mg PO QID PRN acetaminophen 500 mg capsule 500 mg PO QID PRN Antacid (calcium carbonate) 215 mg calcium (500 mg) tablet,chewable 215 mg PO BID (DME) fast form cock up splint See Rx Instructions .Route .MEDSUPPLY Qty: 1 0RF Rx Instructions: As directed insulin aspart U-100 100 unit/mL (3 mL) insulin pen See Rx Instructions .ROUTE .COMPLEX Qty: 15 0RF Rx Instructions: BG 150-199: 1 unit bolus, 200-249: 3 units bolus, 250-299: 5 units bolus, 300-349: 7 units bolus, BG Over 350: 8 units bolus Insulin albuterol sulfate 90 mcg/actuation HFA aerosol inhaler 2 inh inhalation Q4H PRN (Reason: shortness of breath or wheezing) Qty: 8.5 0RF Discharge Orders: Discharge ED (Routine); Ordered 12/19/22 Ordered By: Krissy Williamson Referrals: Blair Cheatham MD [Primary Care Provider] - Discharge Diet: Diabetic Discharge Activity: Increase activity as tolerated Patient Instructions: Diabetes and Diet, Chronic Kidney Disease Diet (DC) Activity Restrictions/Additional Instructions: Lab work today showed no signs of any acute concerns for infection either in your blood or in your urine. All of your lab work was otherwise unremarkable except you do have an elevated blood sugar this evening at 266 and a slightly decreased kidney function. We do encourage you to increase your clear fluid intake. You may wish to drink water with additives such as propel or sugar-free Gatorade if you need something with flavoring. We recommend sugar-free beverages and adhering to a diabetic diet to continue to keep your blood sugar levels in normal range and to prevent any further injury to your kidneys. Carefully monitor your blood sugars at home. If you have any acute worsening in your pain, develop any new fever, have return of vomiting you should be seen and reevaluated in the ER. Coding Level of Care Code ED School Laboratory Technician for Dasha Nix
[2022-12-19 20:46] LABS: Basophils % 0.5 %; Eosinophils # 0.1 10^3/uL (0.0-0.8); Eosinophils % 0.8 %; Hematocrit 48.6 % (42.0-52.0); Hemoglobin 16.3 g/dL (11.7-16.6); Lymphocytes # 2.7 10^3/uL (0.8-4.8); Lymphocytes % 35.9 %; Mean Corpuscular HGB Conc 33.5 g/dL (30.0-36.0); Mean Corpuscular Volume 83.5 fl (80-94); Mean Platelet Volume 10.2 fL (7.4-10.4); Monocytes # 0.5 10^3/uL (0.2-0.9); Monocytes % 7.2 %; Neutrophils # 4.06 10^3/uL (1.8-7.7); Neutrophils % 54.8 %; Nucleated Red Blood Cells % 0 %; Platelet Count 182 10^3/cmm (130-400); Red Blood Count 5.82 10^6/uL (4.1-5.3); Red Cell Distribution Width 14.5 % (12.1-15.1); White Blood Count 7.4 10^3/uL (4.0-10.0)
[2022-12-19 21:10] LABS: Glucose Urine UA 4+ (Normal); Ketones Urine 1+ (Negative); Specific Gravity, Urine 1.005 (1.005-1.030); Urine Appearance Clear (CLEAR); Urine Color Colorless (Yellow); pH Urine 6 (5-7)
[2022-12-19 21:24] LABS: Alanine Aminotransferase 15 U/L (0-41); Albumin Level 4.5 g/dL (3.5-5.2); Alkaline Phosphatase 78 U/L (40-130); Aspartate Amino Transferase 11 U/L (0-40); Blood Urea Nitrogen 18 mg/dL (6-20); Calcium 9.3 mg/dL (8.5-10.5); Carbon Dioxide 27 mmol/L (22-29); Chloride 95 mmol/L (98-107); Globulin 2.4 g/dL (1.3-4.6); Glomerular Filtration Rate 66.1 mL/min (90-130); Glucose 266 mg/dL (65-115); Osmolality Calculated 293 mOsm/kg (285-295); Sodium 136 mmol/L (136-145); Total Bilirubin 0.2 mg/dL (0.15-1.2); Total Protein 6.9 g/dL (6.6-8.7)
[2022-12-19] MEDS: sodium chloride 0.9% 1,000 ML 999 ML IV (23:00)
[2022-12-20 00:03] VITALS: BP 149/105; PULSE 100; RESP 16; O2SAT 94
== END 2022-12-20 00:04 | disposition home or self-care (01) ==
PROVIDERS: Emergency Provider Physician Assistant; PCP Family Medicine
DX: R94.4 Abnormal results of kidney function studies (principal); E11.65 Type 2 diabetes mellitus with hyperglycemia; R10.9 Unspecified abdominal pain; E11.22 Type 2 diabetes mellitus with diabetic chronic kidney disease; N18.9 Chronic kidney disease, unspecified; Z79.4 Long term (current) use of insulin; Z79.84 Long term (current) use of oral hypoglycemic drugs
CPT/HCPCS: 36415; 80053; 81003; 85025; 96360; 99284; J7030

== ENCOUNTER 2022-12-26 10:00 | Outpatient (CLI) | payer MEDICARE, MEDICAID, SELFPAY | END 2022-12-26 18:00 | disposition home or self-care (01) | LOC: LAB 01-10 12:45 | PROVIDERS: PCP Family Medicine; Visit Provider Psychiatry & Neurology Psychiatry | DX: Z79.899 Other long term (current) drug therapy (principal) | CPT/HCPCS: 80053; 80061; 80164; 83036; 83721; 84443; 85025 ==

== ENCOUNTER 2023-01-07 21:40 | Emergency (ER) | payer MEDICARE, MEDICAID, SELFPAY ==
[2023-01-07 21:44] VITALS: BP 174/100; PULSE 124; RESP 16; TEMP 36.9; O2SAT 94; BMI 42.7
--- NOTE | 2023-01-07 21:47 | CTR_ITS ---
PROCEDURE INFORMATION: Exam: CT Head Without Contrast Exam date and time: 01/07/2023 10:39 PM Age: 42 years old Clinical indication: Dizziness; Additional info: Syncope TECHNIQUE: Imaging protocol: Computed tomography of the head without contrast. Radiation optimization: All CT scans at this facility use at least one of these dose optimization techniques: automated exposure control; mA and/or kV adjustment per patient size (includes targeted exams where dose is matched to clinical indication); or iterative reconstruction. REPORTING DATA: Count of CT and Cardiac NM exams in prior 12 months: This patient has received 2 known CTs and 0 known cardiac nuclear medicine studies in the 12 months prior to the current study. COMPARISON: CT head wo con* [id number] 11/20/2022 10:12 PM RADIATION DOSE METRICS: Total DLP (mGy-cm): 1222.88 FINDINGS: Brain: No acute intracranial hemorrhage or mass effect. No definite acute infarct by CT. MRI could be more sensitive/specific for detection, as clinically directed. Cerebral ventricles: Ventricle size is normal for age. Paranasal sinuses: Included paranasal sinuses are essentially clear. Mastoid air cells: No significant acute finding. Bones/joints: No definite acute skull fracture. Soft tissues: No significant acute finding. CT/CT head wo con* [id number] IMPRESSION: 1. No acute intracranial hemorrhage or mass effect. 2. No definite acute infarct by CT, see above. 3. Other findings discussed above.
--- NOTE | 2023-01-07 21:47 | XRR_ITS ---
PROCEDURE INFORMATION: Exam: XR Chest Exam date and time: 01/07/2023 10:32 PM Age: 42 years old Clinical indication: Other: Syncope TECHNIQUE: Imaging protocol: Radiologic exam of the chest. Views: 1 view. COMPARISON: CR XR chest 1V portable [id number] 11/20/2022 9:50 PM FINDINGS: Lungs: No CHF/pulmonary edema. Visible lungs appear essentially clear. Pleural spaces: No visible pneumothorax. No definite pleural fluid. Heart/Mediastinum: Heart size is within normal limits. Bones/joints: No significant acute finding. XR/XR chest 1V portable [id number] IMPRESSION: 1. Essentially unremarkable single view chest. 2. Other findings discussed above.
--- NOTE | 2023-01-07 21:49 | ED_ITS ---
HPI - Recheck/Abnormal Lab/Rx General: Chief Complaint: Recheck/Abnormal Lab/Rx Stated Complaint: dizziness, elev. blood glucose Time Seen by Provider: 01/07/23 21:42 Source: patient, EMS and other (Caregiver from assisted) History of Present Illness: Patient is a 42-year-old male who presents after having a syncopal episode. The patient states he was feeling dizzy and lightheaded earlier. His sugar was over 600. He woke up on the floor after probably passing out. The event was not witnessed. He was not incontinent of bowel or bladder. He did not bite his tongue. He does complain of a headache which she had had earlier today. He denies fever. He has had some diarrhea for the past couple of days. No vomiting. He denies chest pain or shortness of breath. He states he has blurry vision but denies any weakness or numbness. Review of Systems Narrative: See HPI PFSH ED PFSH: Medical History Bipolar 1 disorder Fracture of triquetrum Other reactions to severe stress Psychiatric care Social History Smoking and tobacco status: current every day smoker e-cigarettes Alcohol intake: current Alcohol intake frequency: few times a month Marital status: Single Physical Exam Const: COMMON NORMALS: no acute distress, patient oriented x3 and alert HENMT: COMMON NORMALS: normocephalic, atraumatic, hearing grossly normal bilaterally and moist oral mucous membranes HEAD & SCALP: normocephalic and atraumatic Eye: COMMON NORMALS: Equal, round and reactive pupils present, EOMs intact bilaterally and conjunctivae normal CONJUNCTIVA: Yes conjunctivae normal PUPIL: Yes Equal, round and reactive pupils present Neck/C-Spine: COMMON NORMALS: full ROM and no JVD Lymph: LYMPHATIC: no lymphadenopathy noted Resp: COMMON NORMALS: normal respiratory effort, No retractions, No use of accessory muscles and clear to auscultation bilaterally AUSCULTATION: clear to auscultation bilaterally Cardio: COMMON NORMALS: no JVD and regular rhythm RHYTHM: regular rhythm OTHER: Tachycardic Back/Pelvis: OTHER: No tenderness to palpation Extremity: COMMON NORMALS: normal to inspection, full ROM and capillary refill normal Neuro: COMMON NORMALS: patient oriented x3 SENSORIUM/ORIENTATION: Yes alert Psych: COMMON NORMALS: mental status grossly normal, Normal thought process present, cooperative, normal affect and activity/motor behavior normal MOOD & AFFECT: Yes anxious THOUGHT PROCESS: Normal thought process present Skin: COMMON NORMALS: no rashes or lesions noted and no wounds GENERAL SKIN EXAM: no rashes or lesions noted Course Vital Signs: Vital signs: Vital Signs Temperature 98.4 F 01/07/23 21:44 Pulse Rate 124 H 01/07/23 21:44 Respiratory Rate 16 01/07/23 21:44 Blood Pressure 174/100 01/07/23 21:44 Pulse Oximetry 94 01/07/23 21:44 Oxygen Delivery Me thod 01/07/23 21:44 MDM - Recheck/Abnormal Lab/Rx Medical Decision Making 42-year-old male with a history of diabetes, bipolar who presents after having a syncopal episode. The patient was found on the floor. Blood sugar was over 600. Per EMS, his blood sugar was 389. Patient states he had been dizzy and lightheaded all day long. He also had blurry vision. He continues to feel the same symptoms. Patient is tachycardic. Suspect he is dehydrated. We will give him IV fluids. We will give him IV insulin 10 units. We will check labs, chest x-ray and CT head. Medical Records I reviewed the patient's medical records. Lab Data I reviewed the patient's lab results. 01/07/23 22:20 01/07/23 22:20 Laboratory Results WBC 5.9 10^3/uL (4.0-10.0) 01/07/23 22:20 RBC 5.96 10^6/uL (4.1-5.3) H 01/07/23 22:20 Hgb 16.8 g/dL (11.7-16.6) H 01/07/23 22:20 Hct 51.0 % (42.0-52.0) 01/07/23 22:20 MCV 85.6 fl (80-94) 01/07/23 22:20 MCH 28.2 pg (28.0-34.0) 01/07/23 22:20 MCHC 32.9 g/dL (30.0-36.0) 01/07/23 22:20 RDW 14.3 % (12.1-15.1) 01/07/23 22:20 Plt Count 210 10^3/cmm (130-400) 01/07/23 22:20 MPV 11.4 fL (7.4-10.4) H 01/07/23 22:20 Neut % (Auto) 49.4 % 01/07/23 22:20 Lymph % (Auto) 38.3 % 01/07/23 22:20 [place] % (Auto) 10.2 % 01/07/23 22:20 Eos % (Auto) 0.9 % 01/07/23 22:20 Baso % (Auto) 0.5 % 01/07/23 22:20 Neut # (Auto) 2.91 10^3/uL (1.8-7.7) 01/07/23 22:20 Lymph # (Auto) 2.3 10^3/uL (0.8-4.8) 01/07/23 22:20 [place] # (Auto) 0.6 10^3/uL (0.2-0.9) 01/07/23 22:20 Eos # (Auto) 0.1 10^3/uL (0.0-0.8) 01/07/23 22:20 Baso # (Auto) 0.0 10^3/uL (0.0-0.1) 01/07/23 22:20 Nucleated RBC % (auto) 0 % 01/07/23 22:20 Nucleated RBCs # 0.0 /100WBC 01/07/23 22:20 POC Glucose 485 mg/dL (70-110) H 01/07/23 21:51 Discharge Plan Discharge Condition: Stable Prescriptions: No Action Eliquis 5 mg tablet 5 mg PO BID Qty: 180 3RF Humulin 70/30 U-100 Insulin 100 unit/mL (70-30) suspension 10 unit SUBCUT DAILY gabapentin 300 mg capsule 300 mg PO BID atorvastatin 40 mg tablet 40 mg PO DAILY metformin 500 mg tablet extended release 24hr 500 mg PO BID aspirin 81 mg tablet,delayed release (DR/EC) 81 mg PO DAILY Jardiance 25 mg tablet 25 mg PO DAILY acetaminophen 500 mg capsule 500 mg PO QID PRN Antacid (calcium carbonate) 215 mg calcium (500 mg) tablet,chewable 215 mg PO BID (DME) fast form cock up splint See Rx Instructions .Route .MEDSUPPLY Qty: 1 0RF Rx Instructions: As directed haloperidol 5 mg tablet 5 mg PO BID 30 Days Qty: 60 3RF clonazepam 1 mg tablet,disintegrating 1 mg PO DAILY 30 Days Qty: 60 3RF divalproex 500 mg tablet extended release 24 hr 2,000 mg PO .qhs 30 Days Qty: 120 3RF hydroxyzine HCl 50 mg tablet 50 mg PO QID PRN (Reason: anxiety or sleep) 30 Days Qty: 120 3RF prazosin 1 mg capsule 1 mg PO .qhs 30 Days Qty: 30 3RF sertraline 100 mg tablet 200 mg PO DAILY 30 Days Qty: 60 3RF insulin aspart U-100 100 unit/mL (3 mL) insulin pen See Rx Instructions .ROUTE .COMPLEX Qty: 15 0RF Rx Instructions: BG 150-199: 1 unit bolus, 200-249: 3 units bolus, 250-299: 5 units bolus, 300-349: 7 units bolus, BG Over 350: 8 units bolus Insulin albuterol sulfate 90 mcg/actuation HFA aerosol inhaler 2 inh inhalation Q4H PRN (Reason: shortness of breath or wheezing) Qty: 8.5 0RF Referrals: Blair Cheatham MD [Primary Care Provider] - Coding Level of Care Code ED It Technical Architect for Dasha Nix
[2023-01-07 21:53] LABS: Glucose Point of Care 485 mg/dL (70-110)
[2023-01-07 22:30] VITALS: BP 148/105; PULSE 118; RESP 16; O2SAT 94
[2023-01-07 22:43] LABS: Basophils % 0.5 %; Eosinophils # 0.1 10^3/uL (0.0-0.8); Eosinophils % 0.9 %; Hemoglobin 16.8 g/dL (11.7-16.6); Lymphocytes # 2.3 10^3/uL (0.8-4.8); Lymphocytes % 38.3 %; Mean Corpuscular HGB Conc 32.9 g/dL (30.0-36.0); Mean Corpuscular Hemoglobin 28.2 pg (28.0-34.0); Mean Corpuscular Volume 85.6 fl (80-94); Mean Platelet Volume 11.4 fL (7.4-10.4); Monocytes # 0.6 10^3/uL (0.2-0.9); Monocytes % 10.2 %; Neutrophils # 2.91 10^3/uL (1.8-7.7); Neutrophils % 49.4 %; Nucleated Red Blood Cells % 0 %; Platelet Count 210 10^3/cmm (130-400); Red Blood Count 5.96 10^6/uL (4.1-5.3); Red Cell Distribution Width 14.3 % (12.1-15.1); White Blood Count 5.9 10^3/uL (4.0-10.0)
[2023-01-07 22:45] VITALS: BP 150/107; PULSE 126; RESP 19; O2SAT 90
[2023-01-07] MEDS: sodium chloride 0.9% 1,000 ML 999 ML IV (22:54)
[2023-01-07] MEDS: insulin regular-human 100 units/1 mL 10 UNIT IVP (22:55)
[2023-01-07 22:58] LABS: Ketone (Acetest) Serum Negative (Negative)
[2023-01-07 23:02] LABS: Lactate (Lactic Acid level) 2.9 mmol/L (0.5-2.2)
[2023-01-07 23:05] LABS: Valproic Acid Level 63.7 ug/mL (50-100)
[2023-01-07 23:08] LABS: Add Urine Microscopic? NO; Charge for UA Resulting for Rev
[2023-01-07 23:15] LABS: Alanine Aminotransferase 26 U/L (0-41); Albumin Level 4.2 g/dL (3.5-5.2); Alkaline Phosphatase 91 U/L (40-130); Blood Urea Nitrogen 16 mg/dL (6-20); Calcium 10.4 mg/dL (8.5-10.5); Carbon Dioxide 30 mmol/L (22-29); Chloride 86 mmol/L (98-107); Globulin 2.8 g/dL (1.3-4.6); Glomerular Filtration Rate 81.6 mL/min (90-130); Glucose 496 mg/dL (65-115); Magnesium 1.7 mg/dL (1.7-2.3); Osmolality Calculated 293 mOsm/kg (285-295); Sodium 130 mmol/L (136-145); Thyroid Stimulating Hormone 4.36 uIU/mL (0.27-4.20); Total Bilirubin 0.3 mg/dL (0.15-1.2)
[2023-01-07 23:16] LABS: ABG PCO2 51.8 mmHg (35-45); ABG PH Result 7.41 (7.35-7.45); Arterial Blood Gas Hematocrit 50.1 % (42-52); Blood Gas Allen Test Pos; Blood Gas Sample Site Radial, left; Blood Gas Sample Type Arterial; HCO3 ABG 32.5 mmol/L (22-26); Oxygen Device NC; PO2 ABG 76.2 mmHg (80.0-100.0)
[2023-01-07 23:19] LABS: Anion Gap 18.6 (5-19); Aspartate Amino Transferase 18 U/L (0-40); Potassium 4.6 mmol/L (3.5-5.1)
[2023-01-07 23:22] LABS: Protein Urine Neg (Negative); Urine Appearance Clear (CLEAR); Urine Color Colorless (Yellow); pH Urine 8 (5-7)
[2023-01-07 23:23] LABS: Bilirubin Urine Neg (Negative); Blood Urine Neg (Negative); Glucose Urine UA 4+ (Normal); Ketones Urine Negative (Negative); Leukocyte Esterase Urine Negative (Negative); Nitrate Urine Negative (Negative); Sulfosalicylic Acid Urine Negative (Negative); Urobilinogen Urine Neg (Negative)
[2023-01-08 00:14] LABS: Glucose Point of Care 280 mg/dL (70-110)
== END 2023-01-08 01:18 | disposition home or self-care (01) ==
PROVIDERS: Emergency Medicine; Physician Assistant; Emergency Provider Emergency Medicine; PCP Family Medicine
DX: E11.65 Type 2 diabetes mellitus with hyperglycemia (principal); Z79.01 Long term (current) use of anticoagulants; Z79.4 Long term (current) use of insulin; Z79.84 Long term (current) use of oral hypoglycemic drugs; Z79.82 Long term (current) use of aspirin; F17.290 Nicotine dependence, other tobacco product, uncomplicated
CPT/HCPCS: 36416; 36600; 70450; 71045; 80053; 80164; 81003; 82009; 82803; 82962; 83605; 83735; 84443; 85025; 87040; 96361; 96374; 99285; J1815; J7030

== ENCOUNTER 2023-01-09 07:23 | Outpatient (CLI) | payer MEDICARE, MEDICAID, SELFPAY ==
--- NOTE | 2023-01-09 07:43 | CT_ITS ---
WS: [id number] NONCONTRAST CT RIGHT WRIST TECHNIQUE: Noncontrast CT RIGHT wrist with coronal and sagittal reformatted images. CLINICAL INFORMATION: r/o dislocation COMPARISON: None. DLP: 107.[address] scans at [facility] use at least one of these dose optimization techniques: automated e xposure control; mA and/or kV adjustment per patient size (includes targeted exams where dose is matc hed to clinical indication); or iterative reconstruction. FINDINGS: Distal radius is normal in appearance. Normal ulna. Normal scaphoid and lunate. Normal scapholunate i nterval. Nondisplaced fracture involving the lateral aspect of the hamate. Nondisplaced triquetral fr acture along the dorsal triquetrum. No displaced triquetral fractures. No other visualized fractures. Base of the metacarpals normal. CT/CT wrist RT wo con* [id number] IMPRESSION: 1. Nondisplaced fracture involving the lateral aspect of the hamate with sligh t cortical irregularity 2. Tiny nondisplaced fracture involving the triquetrum along the dorsal bushra lateral triquetrum abutting the hamate fracture. No displaced triquetral fractu res visualized. 3. Normal scaphoid and lunate.
== END 2023-01-09 07:24 | disposition home or self-care (01) ==
PROVIDERS: PCP Family Medicine; Visit Provider Student in an Organized Health Care Education/Training Program
DX: S62.144A Nondisplaced fracture of body of hamate [unciform] bone, right wrist, initial encounter for closed fracture (principal); S62.114A Nondisplaced fracture of triquetrum [cuneiform] bone, right wrist, initial encounter for closed fracture; X58.XXXA Exposure to other specified factors, initial encounter
CPT/HCPCS: 73200

== ENCOUNTER 2023-01-09 21:46 | Emergency (ER) | payer MEDICARE, MEDICAID, SELFPAY ==
[2023-01-09 21:49] VITALS: BP 154/91; PULSE 127; RESP 18; TEMP 36.7; O2SAT 89; BMI 42.8
--- NOTE | 2023-01-09 21:51 | W.ED.GENADLT ---
HPI - General Adult General: Chief complaint: Dizziness Stated complaint: hyperglycemia Time Seen by Provider: 01/09/23 21:46 Source: patient and EMS Mode of arrival: EMS Limitations: no limitations History of Present Illness: 42-year-old male has a history of diabetes he lives at a [facility]-way with [facility] they are concerned his blood sugars reading over 500 he had taken some insulin at home his blood sugar now is in the 350s he has no medical complaints at this time no chest pain no vomiting no diarrhea. Associated symptoms: Deny chest pain, dyspnea, headache(s), nausea, rash or vomiting Review of Systems Const: Denies: fever(s), chills, body aches or change in appetite Eyes: Denies: blurry vision or eye discomfort ENMT: Denies: throat pain or dental pain Card: Denies: chest pain Resp: Denies: dyspnea GI: Denies: abdominal pain, nausea, vomiting or diarrhea : Denies: dysuria Musc: Denies: neck pain or back pain Skin/Breast: Denies: rash Neuro: Denies: headache(s) Psych: Denies: depression Rayo/Lymph: Denies: easy bruising All/Imm: Denies: urticaria PFSH ED PFSH: Medical History Bipolar 1 disorder Fracture of triquetrum Other reactions to severe stress Psychiatric care Social History Smoking and tobacco status: current every day smoker e-cigarettes Alcohol intake: current Alcohol intake frequency: few times a month Marital status: Single Physical Exam Const: COMMON NORMALS: no acute distress, patient oriented x3 and healthy appearing HENMT: COMMON NORMALS: normocephalic and atraumatic HEAD & SCALP: normocephalic and atraumatic Eye: COMMON NORMALS: Equal, round and reactive pupils present and EOMs intact bilaterally PUPIL: Yes Equal, round and reactive pupils present Neck/C-Spine: COMMON NORMALS: full ROM and supple Chest: COMMONS NORMALS: normal inspection of the chest and normal palpation of entire chest wall Resp: COMMON NORMALS: normal respiratory effort, No retractions, No use of accessory muscles and clear to auscultation bilaterally AUSCULTATION: clear to auscultation bilaterally Cardio: COMMON NORMALS: regular rate, regular rhythm and No murmurs present (Cardio) RATE: regular rate RHYTHM: regular rhythm GI: COMMON NORMALS: Normal to inspection, nondistended, normoactive bowel sounds present, Soft to palpation, non-tender and no masses PALPATION: Yes Soft to palpation Extremity: COMMON NORMALS: normal to inspection and full ROM Neuro: COMMON NORMALS: patient oriented x3, moves all extremities and no focal motor deficits Psych: COMMON NORMALS: mental status grossly normal, Normal thought process present and cooperative THOUGHT PROCESS: Normal thought process present Skin: COMMON NORMALS: no rashes or lesions noted and no wounds GENERAL SKIN EXAM: no rashes or lesions noted Course Vital Signs: Vital signs: Vital Signs Temperature 98.1 F 01/09/23 21:49 Pulse Rate 106 H 01/10/23 00:22 Respiratory Rate 18 01/10/23 00:22 Blood Pressure 151/108 01/10/23 00:22 Pulse Oximetry 94 01/10/23 00:22 Oxygen Delivery Me thod 01/09/23 23:40 Oxygen Flow Rate 2 01/09/23 23:40 MDM - General Adult Medical Decision Making Patient presents with hyperglycemia his blood sugars improved to 274 now he states his blurred vision dizziness has improved as well he is otherwise well-appearing he is hypertensive here but that is improved he does have chronic hypertension he is stable for discharge he is to follow-up with PCP and return if worsening he understand agree to plan Lab Data 01/09/23 22:00 01/09/23 22:00 Radiology Impressions Chest X-Ray 01/09/23 21:54 IMPRESSION: No acute findings. Laboratory Results WBC 5.7 10^3/uL (4.0-10.0) 01/09/23 22:00 RBC 5.63 10^6/uL (4.1-5.3) H 01/09/23 22:00 Hgb 16.0 g/dL (11.7-16.6) 01/09/23 22:00 Hct 48.6 % (42.0-52.0) 01/09/23 22:00 MCV 86.3 fl (80-94) 01/09/23 22:00 MCH 28.4 pg (28.0-34.0) 01/09/23 22:00 MCHC 32.9 g/dL (30.0-36.0) 01/09/23 22:00 RDW 14.0 % (12.1-15.1) 01/09/23 22:00 Plt Count 195 10^3/cmm (130-400) 01/09/23 22:00 MPV 10.6 fL (7.4-10.4) H 01/09/23 22:00 Neut % (Auto) 43.3 % 01/09/23 22:00 Lymph % (Auto) 45.7 % 01/09/23 22:00 [place] % (Auto) 8.6 % 01/09/23 22:00 Eos % (Auto) 1.2 % 01/09/23 22:00 Baso % (Auto) 0.5 % 01/09/23 22:00 Neut # (Auto) 2.47 10^3/uL (1.8-7.7) 01/09/23 22:00 Lymph # (Auto) 2.6 10^3/uL (0.8-4.8) 01/09/23 22:00 [place] # (Auto) 0.5 10^3/uL (0.2-0.9) 01/09/23 22:00 Eos # (Auto) 0.1 10^3/uL (0.0-0.8) 01/09/23 22:00 Baso # (Auto) 0.0 10^3/uL (0.0-0.1) 01/09/23 22:00 Nucleated RBC % (auto) 0 % 01/09/23 22:00 Nucleated RBCs # 0.0 /100WBC 01/09/23 22:00 Sodium 133 mmol/L (136-145) L 01/09/23 22:00 Potassium 4.5 mmol/L (3.5-5.1) 01/09/23 22:00 Chloride 91 mmol/L (98-107) L 01/09/23 22:00 Carbon Dioxide 28 mmol/L (22-29) 01/09/23 22:00 Anion Gap 18.5 (5-19) 01/09/23 22:00 BUN 20 mg/dL (6-20) 01/09/23 22:00 Creatinine 1.0 mg/dL (0.7-1.2) 01/09/23 22:00 GFR Calculation 81.6 mL/min (90-130) L 01/09/23 22:00 Glucose 414 mg/dL (65-115) H 01/09/23 22:00 POC Glucose 274 mg/dL (70-110) H 01/09/23 23:31 Calculated Osmolality 296 mOsm/kg (285-295) H 01/09/23 22:00 Calcium 9.9 mg/dL (8.5-10.5) 01/09/23 22:00 Total Bilirubin 0.2 mg/dL (0.15-1.2) 01/09/23 22:00 AST 12 U/L (0-40) 01/09/23 22:00 ALT 17 U/L (0-41) 01/09/23 22:00 Alkaline Phosphatase 69 U/L (40-130) 01/09/23 22:00 Total Protein 6.4 g/dL (6.6-8.7) L 01/09/23 22:00 Albumin 4.0 g/dL (3.5-5.2) 01/09/23 22:00 Globulin 2.4 g/dL (1.3-4.6) 01/09/23 22:00 Discharge Plan Discharge Patient Disposition: Home Clinical Impression: Hyperglycemia Condition: Stable Prescriptions: No Action Eliquis 5 mg tablet 5 mg PO BID Qty: 180 3RF Humulin 70/30 U-100 Insulin 100 unit/mL (70-30) suspension 10 unit SUBCUT DAILY gabapentin 300 mg capsule 300 mg PO BID atorvastatin 40 mg tablet 40 mg PO DAILY metformin 500 mg tablet extended release 24hr 500 mg PO BID aspirin 81 mg tablet,delayed release (DR/EC) 81 mg PO DAILY Jardiance 25 mg tablet 25 mg PO DAILY acetaminophen 500 mg capsule 500 mg PO QID PRN Antacid (calcium carbonate) 215 mg calcium (500 mg) tablet,chewable 215 mg PO BID (DME) fast form cock up splint See Rx Instructions .Route .MEDSUPPLY Qty: 1 0RF Rx Instructions: As directed haloperidol 5 mg tablet 5 mg PO BID 30 Days Qty: 60 3RF clonazepam 1 mg tablet,disintegrating 1 mg PO DAILY 30 Days Qty: 60 3RF divalproex 500 mg tablet extended release 24 hr 2,000 mg PO .qhs 30 Days Qty: 120 3RF hydroxyzine HCl 50 mg tablet 50 mg PO QID PRN (Reason: anxiety or sleep) 30 Days Qty: 120 3RF prazosin 1 mg capsule 1 mg PO .qhs 30 Days Qty: 30 3RF sertraline 100 mg tablet 200 mg PO DAILY 30 Days Qty: 60 3RF insulin aspart U-100 100 unit/mL (3 mL) insulin pen See Rx Instructions .ROUTE .COMPLEX Qty: 15 0RF Rx Instructions: BG 150-199: 1 unit bolus, 200-249: 3 units bolus, 250-299: 5 units bolus, 300-349: 7 units bolus, BG Over 350: 8 units bolus Insulin albuterol sulfate 90 mcg/actuation HFA aerosol inhaler 2 inh inhalation Q4H PRN (Reason: shortness of breath or wheezing) Qty: 8.5 0RF Discharge Orders: Discharge ED (Routine); Ordered 01/10/23 Ordered By: Wale Vyas Referrals: Blair Cheatham MD [Primary Care Provider] - 1-3 days Discharge Diet: Advance as tolerated Discharge Activity: Resume usual activity Patient Instructions: Hyperglycemia Coding Level of Care Code ED Editorial Intern for Chg Boyd
[2023-01-09 21:53] LABS: Glucose Point of Care 385 mg/dL (70-110)
--- NOTE | 2023-01-09 21:54 | ECG_ITS ---
[facility] Test Date: 2023-01-09 Pat Name: Zaire Nassar Department: Room: Gender: Male Department Clinician: : 1980 Requested By: Wale Vyas Order Number: [id number] Drew MD: Cheikh Navarrete M.D. Measurements Intervals [place] Rate: 109 P: 55 ME: 168 QRS: 50 QRSD: 102 T: 26 QT: 313 QTc: 422 Interpretive Statements SINUS TACHYCARDIA SEPTAL MYOCARDIAL INFARCTION , OF INDETERMINATE AGE [40+ ms Q WAVE IN V1/V2] Compared to ECG 11/20/2022 21:34:07 Indeterminate axis no longer present Myocardial infarct finding still present Electronically Signed On 01-10-2023 15:04:59 CLARIFIER by Cheikh Navarrete M.D. [id number]
--- NOTE | 2023-01-09 21:54 | XRR_ITS ---
PROCEDURE INFORMATION: Exam: XR Chest Exam date and time: 01/09/2023 9:57 PM Age: 42 years old Clinical indication: Shortness of breath; Additional info: SOB, hyperglycemia TECHNIQUE: Imaging protocol: Radiologic exam of the chest. Views: 1 view. COMPARISON: CR (CHEST, ) 01/07/2023 10:32 PM FINDINGS: Lungs: Negative for airspace infiltrate. Pleural spaces: Unremarkable. No pleural effusion. No pneumothorax. Heart/Mediastinum: Unremarkable. No cardiomegaly. Bones/joints: Unremarkable. XR/XR chest 1V portable [id number] IMPRESSION: No acute findings.
[2023-01-09] MEDS: sodium chloride 0.9% 1,000 ML 999 ML IV (21:59)
[2023-01-09] MEDS: insulin regular-human 100 units/1 mL 5 UNIT IVP (21:59)
[2023-01-09 22:07] LABS: Basophils % 0.5 %; Eosinophils # 0.1 10^3/uL (0.0-0.8); Eosinophils % 1.2 %; Hematocrit 48.6 % (42.0-52.0); Lymphocytes # 2.6 10^3/uL (0.8-4.8); Lymphocytes % 45.7 %; Mean Corpuscular HGB Conc 32.9 g/dL (30.0-36.0); Mean Corpuscular Hemoglobin 28.4 pg (28.0-34.0); Mean Corpuscular Volume 86.3 fl (80-94); Mean Platelet Volume 10.6 fL (7.4-10.4); Monocytes # 0.5 10^3/uL (0.2-0.9); Monocytes % 8.6 %; Neutrophils # 2.47 10^3/uL (1.8-7.7); Neutrophils % 43.3 %; Nucleated Red Blood Cells % 0 %; Platelet Count 195 10^3/cmm (130-400); Red Blood Count 5.63 10^6/uL (4.1-5.3); White Blood Count 5.7 10^3/uL (4.0-10.0)
--- NOTE | 2023-01-09 22:09 | ECG_ITS ---
[facility] Test Date: 2023-01-09 Pat Name: Zaire Nassar Department: Room: Gender: Male Phy Therapist: : 1980 Requested By: Wale Vyas Order Number: [id number] Drew MD: Cheikh Navarrete M.D. Measurements Intervals [place] Rate: 123 P: 40 CA: 179 QRS: 47 QRSD: 107 T: 24 QT: 312 QTc: 447 Interpretive Statements SINUS TACHYCARDIA ANTEROSEPTAL MYOCARDIAL INFARCTION , OF INDETERMINATE AGE [40+ ms Q WAVE IN V1-V4] Compared to ECG 11/20/2022 21:34:07 Indeterminate axis no longer present Myocardial infarct finding still present Electronically Signed On 01-10-2023 15:04:55 HAND CROWN POUNCER by Cheikh Navarrete M.D. [id number]
[2023-01-09 22:14] VITALS: BP 154/91; PULSE 121; RESP 18; O2SAT 91
[2023-01-09 22:28] LABS: Alanine Aminotransferase 17 U/L (0-41); Alkaline Phosphatase 69 U/L (40-130); Anion Gap 18.5 (5-19); Aspartate Amino Transferase 12 U/L (0-40); Blood Urea Nitrogen 20 mg/dL (6-20); Calcium 9.9 mg/dL (8.5-10.5); Carbon Dioxide 28 mmol/L (22-29); Chloride 91 mmol/L (98-107); Globulin 2.4 g/dL (1.3-4.6); Glomerular Filtration Rate 81.6 mL/min (90-130); Glucose 414 mg/dL (65-115); Osmolality Calculated 296 mOsm/kg (285-295); Potassium 4.5 mmol/L (3.5-5.1); Sodium 133 mmol/L (136-145); Total Bilirubin 0.2 mg/dL (0.15-1.2); Total Protein 6.4 g/dL (6.6-8.7)
[2023-01-09 22:30] VITALS: PULSE 115; RESP 20; O2SAT 93
[2023-01-09 22:58] LABS: Glucose Point of Care 409 mg/dL (70-110)
[2023-01-09] MEDS: insulin regular-human 100 units/1 mL 10 UNIT IVP (22:58)
[2023-01-09 23:04] VITALS: BP 145/77; PULSE 115; RESP 20; O2SAT 91
[2023-01-09 23:35] LABS: Glucose Point of Care 274 mg/dL (70-110)
[2023-01-09 23:40] VITALS: BP 195/118; PULSE 119; O2SAT 92
[2023-01-09] MEDS: labetalol 5 mg/mL SDV 20mL 10 MG IVP (23:48)
[2023-01-10 00:22] VITALS: BP 151/108; PULSE 106; RESP 18; O2SAT 94
== END 2023-01-10 00:23 | disposition home or self-care (01) ==
PROVIDERS: Emergency Provider Emergency Medicine; PCP Family Medicine
DX: E11.65 Type 2 diabetes mellitus with hyperglycemia (principal); Z79.01 Long term (current) use of anticoagulants; Z79.82 Long term (current) use of aspirin; Z79.84 Long term (current) use of oral hypoglycemic drugs; Z79.4 Long term (current) use of insulin; F17.290 Nicotine dependence, other tobacco product, uncomplicated
CPT/HCPCS: 36416; 71045; 80053; 82962; 85025; 93005; 96361; 96374; 96375; 96376; 99285; J1815; J3490; J7030

== ENCOUNTER → 2023-01-11 15:04 | Outpatient (BNVA) | payer MEDICARE, MEDICAID, SELFPAY | PROVIDERS: PCP Family Medicine; Visit Provider Student in an Organized Health Care Education/Training Program | DX: S62.141A Displaced fracture of body of hamate [unciform] bone, right wrist, initial encounter for closed fracture (principal); S62.111A Displaced fracture of triquetrum [cuneiform] bone, right wrist, initial encounter for closed fracture; X58.XXXA Exposure to other specified factors, initial encounter; Z09 Encounter for follow-up examination after completed treatment for conditions other than malignant neoplasm | CPT/HCPCS: 73110; 99213 ==

== ENCOUNTER 2023-01-12 21:09 | Inpatient (IN) | payer MEDICARE, MEDICAID, SELFPAY ==
[2023-01-12 21:11] VITALS: BP 145/100; PULSE 110; RESP 22; TEMP 36.8; O2SAT 93; BMI 43.5
--- NOTE | 2023-01-12 21:16 | ED.C_ITS ---
HPI - Psych General: Chief Complaint: Psychiatric Symptoms Stated Complaint: SI Time Seen by Provider: 01/12/23 21:10 Source: patient, EMS and police Mode of arrival: EMS Limitations: no limitations History of Present Illness: 42-year-old male who is here from [facility] he states that he has been extremely depressed today states he been missing his mother need I had thoughts of suicide per police he did step out in front of a car and states he wants to be ran over he also got a piece of glass and was going to cut himself he does admit to me that he has been extremely depressed and has been having suicidal plans. Associated symptoms: Reports depression and suicidal ideation Review of Systems Const: Denies: fever(s), chills, body aches or change in appetite Eyes: Denies: blurry vision or eye discomfort ENMT: Denies: throat pain or dental pain Card: Denies: chest pain Resp: Denies: dyspnea GI: Denies: abdominal pain, nausea, vomiting or diarrhea : Denies: dysuria Musc: Denies: neck pain or back pain Skin/Breast: Denies: rash Neuro: Denies: headache(s) Psych: Reports: depression and suicidal ideation Rayo/Lymph: Denies: easy bruising All/Imm: Denies: urticaria PFSH ED PFSH: Medical History Bipolar 1 disorder Fracture of triquetrum Other reactions to severe stress Psychiatric care Social History Smoking and tobacco status: current every day smoker e-cigarettes Alcohol intake: current Alcohol intake frequency: few times a month Marital status: Single Course Vital Signs: Vital signs: Vital Signs Temperature 98.2 F 01/12/23 21:11 Pulse Rate 110 H 01/12/23 21:11 Respiratory Rate 22 H 01/12/23 21:11 Blood Pressure 145/100 01/12/23 21:11 Pulse Oximetry 93 01/12/23 21:11 Oxygen Delivery Me thod 01/12/23 21:11 MDM - Psych Medical Decision Making Patient presents for suicidal ideations he is placed under 96-hour hold he is medically cleared I spoke to psychiatrist will admit. Lab Data 01/12/23 21:29 01/12/23 21:29 Laboratory Results WBC 5.1 10^3/uL (4.0-10.0) 01/12/23: RBC 5.82 10^6/uL (4.1-5.3) H 01/12/23: Hgb 16.4 g/dL (11.7-16.6) 01/12/23: Hct 50.3 % (42.0-52.0) 01/12/23: MCV 86.4 fl (80-94) 01/12/23: MCH 28.2 pg (28.0-34.0) 01/12/23: MCHC 32.6 g/dL (30.0-36.0) 01/12/23: RDW 14.0 % (12.1-15.1) 01/12/23: Plt Count 189 10^3/cmm (130-400) 01/12/23: MPV 10.7 fL (7.4-10.4) H 01/12/23: Neut % (Auto) 41.4 % 01/12/23: Lymph % (Auto) 48.1 % 01/12/23: [place] % (Auto) 7.9 % 01/12/23: Eos % (Auto) 1.2 % 01/12/23: Baso % (Auto) 0.6 % 01/12/23: Neut # (Auto) 2.11 10^3/uL (1.8-7.7) 01/12/23: Lymph # (Auto) 2.5 10^3/uL (0.8-4.8) 01/12/23: [place] # (Auto) 0.4 10^3/uL (0.2-0.9) 01/12/23: Eos # (Auto) 0.1 10^3/uL (0.0-0.8) 01/12/23: Baso # (Auto) 0.0 10^3/uL (0.0-0.1) 01/12/23: Nucleated RBC % (auto) 0 % 01/12/23 Nucleated RBCs # 0.0 /100WBC 01/12/23 21: Sodium 137 mmol/L (136-145) 01/12/23 21: Potassium 4.0 mmol/L (3.5-5.1) 01/12/23: Chloride 96 mmol/L (98-107) L 01/12/23: Carbon Dioxide 28 mmol/L (22-29) 01/12/23: Anion Gap 17.0 (5-19) 01/12/23: BUN 17 mg/dL (6-20) 01/12/23: Creatinine 0.9 mg/dL (0.7-1.2) 01/12/23: GFR Calculation 92.1 mL/min (90-130) 01/12/23: Glucose 186 mg/dL (65-115) H 01/12/23: Calculated Osmolality 290 mOsm/kg (285-295) 01/12/23: Calcium 9.5 mg/dL (8.5-10.5) 01/12/23: Total Bilirubin 0.3 mg/dL (0.15-1.2) 01/12/23: AST 13 U/L (0-40) 01/12/23: ALT 16 U/L (0-41) 01/12/23: Alkaline Phosphatase 71 U/L (40-130) 01/12/23: Total Protein 6.7 g/dL (6.6-8.7) 01/12/23: Albumin 4.4 g/dL (3.5-5.2) 01/12/23: Globulin 2.3 g/dL (1.3-4.6) 01/12/23: Salicylates < 0.3 mg/dL (3-10) L 01/12/23: Urine Opiates Screen Negative ng/mL (Negative) 01/12/23: Acetaminophen < 5.0 ug/mL (10-30) L 01/12/23: Ur Barbiturates Screen Negative ng/mL (Negative) 01/12/23 21:41 Valproic Acid 57.2 ug/mL (50-100) 01/12/23: Ur Phencyclidine Scrn Negative ng/mL (Negative) 01/12/23 21:41 Ur Amphetamines Screen Negative ng/mL (Negative) 01/12/23 21:41 U Benzodiazepines Scrn Negative ng/mL (Negative) 01/12/23 21:41 Urine Cocaine Screen Negative ng/mL (Negative) 01/12/23 21:41 U Marijuana (THC) Screen Negative ng/mL (Negative) 01/12/23 21:41 Ethyl Alcohol < 10 mg/dL (0-10) 01/12/23 21:29 Discharge Plan Discharge Patient Disposition: Admitted As Inpatient Clinical Impression: Suicidal ideation Condition: Stable Coding Level of Care Code ED Liquified [employer] Specialist for Dasha Nix
[2023-01-12 21:37] LABS: Basophils % 0.6 %; Eosinophils # 0.1 10^3/uL (0.0-0.8); Eosinophils % 1.2 %; Hematocrit 50.3 % (42.0-52.0); Hemoglobin 16.4 g/dL (11.7-16.6); Lymphocytes # 2.5 10^3/uL (0.8-4.8); Lymphocytes % 48.1 %; Mean Corpuscular HGB Conc 32.6 g/dL (30.0-36.0); Mean Corpuscular Hemoglobin 28.2 pg (28.0-34.0); Mean Corpuscular Volume 86.4 fl (80-94); Mean Platelet Volume 10.7 fL (7.4-10.4); Monocytes # 0.4 10^3/uL (0.2-0.9); Monocytes % 7.9 %; Neutrophils # 2.11 10^3/uL (1.8-7.7); Neutrophils % 41.4 %; Nucleated Red Blood Cells % 0 %; Platelet Count 189 10^3/cmm (130-400); Red Blood Count 5.82 10^6/uL (4.1-5.3); White Blood Count 5.1 10^3/uL (4.0-10.0)
[2023-01-12 21:56] LABS: Amphetamines Screen Urine Negative (Negative); Barbiturates Screen Urine Negative (Negative); Benzodiazepines Screen Urine Negative (Negative); Cocaine Screen Urine Negative (Negative); Opiate Screen Urine Negative (Negative); PCP Screen Urine Negative (Negative); THC Screen Urine Negative (Negative)
[2023-01-12 21:58] LABS: Alanine Aminotransferase 16 U/L (0-41); Albumin Level 4.4 g/dL (3.5-5.2); Alkaline Phosphatase 71 U/L (40-130); Aspartate Amino Transferase 13 U/L (0-40); Blood Urea Nitrogen 17 mg/dL (6-20); Calcium 9.5 mg/dL (8.5-10.5); Carbon Dioxide 28 mmol/L (22-29); Chloride 96 mmol/L (98-107); Globulin 2.3 g/dL (1.3-4.6); Glomerular Filtration Rate 92.1 mL/min (90-130); Glucose 186 mg/dL (65-115); Osmolality Calculated 290 mOsm/kg (285-295); Sodium 137 mmol/L (136-145); Total Bilirubin 0.3 mg/dL (0.15-1.2); Total Protein 6.7 g/dL (6.6-8.7)
--- NOTE | 2023-01-12 22:00 | PC.NURSE ---
96 hour hold rights have been read to patient and a copy of the same has been provided to him. All questions were answered to the satisfaction of the patient.
[2023-01-12 22:04] LABS: Acetaminophen < 5.0 ug/mL (10-30); Alcohol Level < 10 mg/dL (0-10); Salicylate < 0.3 mg/dL (3-10)
[2023-01-12 22:40] LABS: Valproic Acid Level 57.2 ug/mL (50-100)
[2023-01-12 23:12] VITALS: BP 142/98; PULSE 111; RESP 20; O2SAT 94
[2023-01-13 00:54] VITALS: BP 135/86; PULSE 123; RESP 18; TEMP 36.6; O2SAT 96
[2023-01-13 06:00] VITALS: BP 136/75; PULSE 104; RESP 20; TEMP 36.7; O2SAT 93
[2023-01-13 08:13] LABS: Glucose Point of Care 225 mg/dL (70-110)
[2023-01-13] MEDS: insulin lispro 100 unit/1 mL SUBCUT ×4 (08:27→21:37)
[2023-01-13] MEDS: sertraline 100 mg Tablet 200 MG PO (08:28)
[2023-01-13] MEDS: calcium carbonate 500 mg Chew Tablet 250 MG PO ×2 (08:28→17:35)
[2023-01-13] MEDS: CLONazepam 1 mg Tablet PO (08:28)
[2023-01-13] MEDS: apixaban 5 mg Tablet PO ×2 (08:28→17:34)
[2023-01-13] MEDS: gabapentin 300 mg Capsule PO ×2 (08:28→17:35)
[2023-01-13] MEDS: haloperidol 5 mg Tablet PO ×2 (08:29→17:34)
[2023-01-13] MEDS: atorvastatin 40 mg Tablet PO (08:29)
[2023-01-13] MEDS: aspirin 81 mg EC Tablet PO (08:29)
[2023-01-13] MEDS: metformin XR 500 MG Tablet PO ×2 (09:49→17:34)
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
[2023-01-13 12:12] LABS: Glucose Point of Care 216 mg/dL (70-110)
--- NOTE | 2023-01-13 13:10 | PC.NURSE ---
SPOKE WITH PHARMACIST AT THIS TIME REGARDING MORNING INSULIN, THAT WAS JUST RECEIVED. PHARMACIST JUANJOSE STATED TO REMOVE THE NOT GIVEN THAT WAS CHARTED AND GO AHEAD AND GIVE INSULIN THAT WAS SCHEDULED FOR THIS AM. DR. SHARMA IS AWARE.
[2023-01-13] MEDS: insulin aspart 70/30 100 units/1 mL 10 UNIT SUBCUT (13:15)
[2023-01-13 14:00] VITALS: BP 148/82; PULSE 82; RESP 18; TEMP 36.4; O2SAT 96
[2023-01-13] MEDS: hyDROXYzine 25 mg Capsule 50 MG PO (16:32)
[2023-01-13 17:23] LABS: Glucose Point of Care 252 mg/dL (70-110)
[2023-01-13 20:28] LABS: Glucose Point of Care 308 mg/dL (70-110)
[2023-01-13 20:40] VITALS: BP 142/87; PULSE 108; RESP 18; TEMP 36.8; O2SAT 95; BMI 40.5
[2023-01-13] MEDS: OLANZapine 5 mg ODT PO (21:36)
[2023-01-13] MEDS: divalproex ER 500 mg Tablet (24H) 2000 MG PO (21:36)
[2023-01-13] MEDS: prazosin 1 mg Capsule PO (21:36)
[2023-01-13] MEDS: trazodone 50 mg Tablet PO (21:37)
[2023-01-14 06:00] VITALS: BP 150/89; PULSE 72; RESP 20; TEMP 36.6; O2SAT 94
--- NOTE | 2023-01-14 07:08 | W.PM.NPUPNS ---
Subjective NPU Subjective: Patient presented today continuing to deny any new or pressing issues. He continues to report that this was an outlier and did not represent recent decompensation. Staff contacted and did not disagree with the assessment. We discussed the meeting Dr. Hall tomorrow with likely discharge plan and ISL reports ability to receive him back tomorrow. Mental Status Exam MSE Comments: This is an obese versus morbidly obese white male in hospital scrubs with adequate grooming and eye contact. No abnormal movements except for mild psychomotor retardation. Cooperative with exam in no acute distress. Speech was slightly decreased rate and volume for childlike. Mood described as better, affect congruent. Thought process organized. Thought content: Patient denied suicidal or homicidal ideations, there were no delusions reported or noted, he denied any auditory or visual hallucination. Attention concentration are intact and memory was mostly reliable but none were formally tested. He is alert and oriented x3. Insight and judgment are limited and impulse control is limited. Intellectual ability appears limited versus impaired. Vitals/I&O/Wt Last Vital Signs Temp 97.5 F L 01/14/23 22:00 Pulse 84 01/14/23 22:00 Resp 18 01/14/23 22:00 BP 136/75 01/14/23 22:00 Pulse Ox 91 01/14/23 22:00 O2 Del Method 01/14/23 22:00 Weight last 48 hrs Weight 139.31 kg Data NPU 01/12/23 21:29 01/12/23 21:29 A&P Assessment and plan (1) Suicidal ideation: (2) Bipolar 1 disorder: (3) Mild intellectual disability: (4) Intermittent explosive disorder in adult: Plan This is a 42-year-old white male with a long history of intellectual disability and impulse control issues presents from the ISL with a guardian after a reported outburst without current issues. 1. Continue current medication. 2. Continue every 15 minute checks for safety. 3. Encourage individual, group and milieu therapies. 4. Work with guardian/ISL to determine whether this represents a recent decompensation or an outburst consistent with his diagnosis. 5. Tentative plan for discharge tomorrow. Involuntary Hold Information 96 Hour Hold: 96 Hour Involuntary Admission: Yes 96 Hour Hold Ending Date: 01/18/23 96 Hour Hold Ending Time: 21:38 Attestations NPU Medical Necessity Statement*: Inpatient hospitalization is medically necessary and the clinically appropriate intervention at this time. We will monitor/initiate medications and make changes as indicated. Likely length of stay 1-3 days. Coding Level of Care Code Acute Code for Chg Fwd Diagnoses Suicidal ideation R45.851 Bipolar 1 disorder F31.9 Mild intellectual disability F70 Intermittent explosive disorder in adult F63.81
[2023-01-14 08:07] LABS: Glucose Point of Care 186 mg/dL (70-110)
[2023-01-14] MEDS: insulin lispro 100 unit/1 mL SUBCUT ×4 (08:29→21:51)
[2023-01-14] MEDS: aspirin 81 mg EC Tablet PO (08:30)
[2023-01-14] MEDS: atorvastatin 40 mg Tablet PO (08:30)
[2023-01-14] MEDS: apixaban 5 mg Tablet PO ×2 (08:30→17:26)
[2023-01-14] MEDS: sertraline 100 mg Tablet 200 MG PO (08:30)
[2023-01-14] MEDS: calcium carbonate 500 mg Chew Tablet 250 MG PO ×2 (08:30→17:26)
[2023-01-14] MEDS: insulin aspart 70/30 100 units/1 mL 10 UNIT SUBCUT (08:30)
[2023-01-14] MEDS: haloperidol 5 mg Tablet PO ×2 (08:31→17:25)
[2023-01-14] MEDS: gabapentin 300 mg Capsule PO ×2 (08:31→17:25)
[2023-01-14] MEDS: CLONazepam 1 mg Tablet PO (08:31)
[2023-01-14] MEDS: metformin XR 500 MG Tablet PO ×2 (08:31→17:25)
--- NOTE | 2023-01-14 10:45 | PC.NURSE ---
Per MD request staff attempted to contact pt's public vmware administrator and his facility to see if they are receptive to the pt discharging/returning. Left a message for the PA and at [facility] to return the call.
[2023-01-14 12:21] LABS: Glucose Point of Care 257 mg/dL (70-110)
--- NOTE | 2023-01-14 13:15 | PC.NURSE ---
Pt's PA returned staff's call at 1034. She stated she had no issues with the pt discharging as long as the facility was ready for the pt. She was going to contact the facility and have them call us. Abiola, the Director of [facility], called the unit and indicated it would be better for the patient to return to the facility tomorrow due to their weekend staffing; she wanted things to be good for when the pt returned. Lino Richter was notified. She said they could take him anytime after 0800. She's reachable at the following phone number: [phone]. Abiola said the person associated with the other contact number on the pt's list isn't available right now so we should call her.
[2023-01-14 14:00] VITALS: BP 127/80; PULSE 91; RESP 18; TEMP 36.6; O2SAT 92
[2023-01-14 17:17] LABS: Glucose Point of Care 421 mg/dL (70-110)
--- NOTE | 2023-01-14 17:32 | PC.NURSE ---
Pt's blood sugar was 421. Pt asked staff if she was mad at him. Staff told the pt no, and reminded the pt about the snacks he'd eaten earlier despite staff encouraging him not to. Also discussed possible long-term impact uncontrolled diabetes can have on the body, including impact to the eyes, nerves, and kidneys. Pt listened to the information. 8 u humalog given and pt went to eat his supper.
[2023-01-14 19:49] LABS: Glucose Point of Care 315 mg/dL (70-110)
[2023-01-14] MEDS: divalproex ER 500 mg Tablet (24H) 2000 MG PO (21:47)
[2023-01-14] MEDS: prazosin 1 mg Capsule PO (21:50)
[2023-01-14 22:00] VITALS: BP 136/75; PULSE 84; RESP 18; TEMP 36.4; O2SAT 91
[2023-01-15] VITALS (9 sets, daily range): BP systolic 142–166; BP diastolic 83–108; PULSE 77–114; RESP 16–18; TEMP 36.4–36.9; O2SAT 90–94
[2023-01-15] MEDS: calcium carbonate 500 mg Chew Tablet 250 MG PO ×2 (08:39→17:16)
[2023-01-15] MEDS: insulin aspart 70/30 100 units/1 mL 10 UNIT SUBCUT (08:39)
[2023-01-15] MEDS: apixaban 5 mg Tablet PO ×2 (08:39→17:16)
[2023-01-15] MEDS: insulin lispro 100 unit/1 mL SUBCUT ×4 (08:39→20:38)
[2023-01-15] MEDS: metformin XR 500 MG Tablet PO ×2 (08:39→17:16)
[2023-01-15] MEDS: aspirin 81 mg EC Tablet PO (08:39)
[2023-01-15] MEDS: atorvastatin 40 mg Tablet PO (08:40)
[2023-01-15] MEDS: gabapentin 300 mg Capsule PO ×2 (08:40→17:15)
[2023-01-15] MEDS: haloperidol 5 mg Tablet PO ×2 (08:40→17:15)
[2023-01-15] MEDS: CLONazepam 1 mg Tablet PO (08:40)
[2023-01-15] MEDS: sertraline 100 mg Tablet 200 MG PO (08:40)
--- NOTE | 2023-01-15 09:42 | PC.OT ---
OT EVALUATION ORDERS RECEIVED. PATIENT SLEEPING SOUNDLY ON BOTH OCCASIONS AND DOES NOT AWAKEN TO NAME. WILL ATTEMPT AGAIN AT A LATER TIME.
[2023-01-15 11:43] LABS: Glucose Point of Care 424 mg/dL (70-110)
--- NOTE | 2023-01-15 14:30 | W.PM.NPUPNS ---
Subjective NPU Subjective: Patient is a 42-year-old white male with a history of impulse control disorder and otherwise specified and intellectual disability currently residing in an independent living facility. He had been admitted with suicidal ideation stemming from a argument with 2 of his caretakers at [facility]. He reported that he was feeling better and stated that he was ready to reconsider returning home. He was compliant on the milieu and was redirectable. Patient reported adequate sleep and reported having had problems with maintaining his anger. He had reported that his conversation with his caretakers had been better since he came into the hospital. Mental Status Exam MSE Comments: This is an obese versus morbidly obese white male in hospital scrubs with adequate grooming and eye contact. No abnormal movements except for mild psychomotor retardation. Cooperative with exam in no acute distress. Speech was slightly decreased rate and volume for childlike. Mood described as good, his affect was somewhat restricted in range. Thought process was linear and organized. Thought content: Patient denied suicidal or homicidal ideations, there were no delusions reported or noted, he denied any auditory or visual hallucination. Attention and concentration are intact. His memory was mostly reliable but none were formally tested. He is alert and oriented x3. Insight and judgment are limited and impulse control is limited. Intellectual ability appears limited versus impaired. Vitals/I&O/Wt Last Vital Signs Temp 97.5 F L 01/14/23 22:00 Pulse 84 01/14/23 22:00 Resp 18 01/14/23 22:00 BP 136/75 01/14/23 22:00 Pulse Ox 91 01/14/23 22:00 O2 Del Method 01/14/23 22:00 Weight last 48 hrs Weight 139.31 kg Data NPU 01/12/23 21:29 01/12/23 21:29 A&P Assessment and plan (1) Suicidal ideation: (2) Bipolar 1 disorder: (3) Mild intellectual disability: (4) Intermittent explosive disorder in adult: Plan This is a 42-year-old white male with a long history of intellectual disability and impulse control issues presents from the ISL with a guardian after a reported outburst without current issues. 1. Continue current medications. 2. Continue every 15 minute checks for safety. 3. Encourage individual, group and milieu therapies. 4. Work with guardian/ISL to determine whether this represents a recent decompensation or an outburst consistent with his diagnosis. 5. Tentative plan for discharge tomorrow. Involuntary Hold Information 96 Hour Hold: 96 Hour Involuntary Admission: Yes 96 Hour Hold Ending Date: 01/18/23 96 Hour Hold Ending Time: 21:38 Attestations NPU Medical Necessity Statement*: Inpatient hospitalization is medically necessary and the clinically appropriate intervention at this time. We will monitor/initiate medications and make changes as indicated. Likely length of stay 1-3 days. Coding Level of Care Code Acute Code for Chg Fwd Diagnoses Suicidal ideation R45.851 Bipolar 1 disorder F31.9 Mild intellectual disability F70 Intermittent explosive disorder in adult F63.81
[2023-01-15] MEDS: nicotine 4 mg lozenge MUCOUS MEM (18:32)
[2023-01-15] MEDS: divalproex ER 500 mg Tablet (24H) 2000 MG PO (20:30)
[2023-01-15] MEDS: prazosin 1 mg Capsule PO (20:30)
[2023-01-15 20:35] LABS: Glucose Point of Care 509 mg/dL (70-110)
--- NOTE | 2023-01-15 20:59 | XRR_ITS ---
PROCEDURE INFORMATION: Exam: XR Chest Exam date and time: 01/15/2023 8:09 PM Age: 42 years old Clinical indication: Shortness of breath; Additional info: Low o2 saturation TECHNIQUE: Imaging protocol: Radiologic exam of the chest. Views: 1 view. COMPARISON: CR (CHEST, ) 01/09/2023 9:57 PM FINDINGS: Lungs: Unremarkable. No consolidation. Pleural spaces: Unremarkable. No pleural effusion. No pneumothorax. Heart/Mediastinum: Unremarkable. No cardiomegaly. Bones/joints: Unremarkable. XR/XR chest 1V portable [id number] IMPRESSION: No acute findings.
[2023-01-15 21:02] LABS: Basophils # 0.1 10^3/uL (0.0-0.1); Basophils % 0.7 %; Eosinophils # 0.1 10^3/uL (0.0-0.8); Eosinophils % 1.2 %; Hematocrit 47.4 % (42.0-52.0); Hemoglobin 15.5 g/dL (11.7-16.6); Lymphocytes # 3.4 10^3/uL (0.8-4.8); Lymphocytes % 49.5 %; Mean Corpuscular HGB Conc 32.7 g/dL (30.0-36.0); Mean Corpuscular Hemoglobin 28.4 pg (28.0-34.0); Mean Platelet Volume 10.8 fL (7.4-10.4); Monocytes # 0.6 10^3/uL (0.2-0.9); Monocytes % 8.5 %; Neutrophils # 2.65 10^3/uL (1.8-7.7); Neutrophils % 38.8 %; Nucleated Red Blood Cells % 0 %; Platelet Count 175 10^3/cmm (130-400); Red Blood Count 5.45 10^6/uL (4.1-5.3); Red Cell Distribution Width 14.2 % (12.1-15.1); White Blood Count 6.8 10^3/uL (4.0-10.0)
--- NOTE | 2023-01-15 21:18 | P.CONIM_ITS ---
Providers/Reason For Consult Consulting Physician/Specialty*: Dr Hall, psychiatry Reason for Consult*: Syncope/found down unresponsive Attending Physician: Nickolas Huynh MD Primary Care Provider: Blair Cheatham MD History of Present Illness History of Present Illness Patient was found unresponsive face down on the floor on neuro psychiatric unit, just earlier his blood glucose was found elevated at 509. His insulin was being prepared. As he was unresponsive CRISTIN MADRIGAL was called. At the time of my arrival he is now awake, alert, sitting up on the floor. Denies headache, nausea vomiting, no chest pain or pressure. He is not short of breath. States that he just got up to throw away his cup in the bathroom, last thing he remembers is waking up on the floor. Initially noted quite hypertensive, blood pressure 164/134. With rechecks blood pressure down to 144/94. Noted regular tachycardia 109. Oxygen saturation over 88-93% on room air. Has not been on oxygen. Denies dyspnea. Denies any recent shortness of breath, cough, chest pain or pressure. Does have history of PE, but states has not missed any of his doses of Eliquis. With reassessment oxygenation up to 92-93%. Ambulated on his own power to his bed. Instructed him and RN to stay in bed, get up only if absolutely necessary and only with assistance. Additional work-up requested with Blood work, troponin EKG series, CMP, CBC, lactic acid. Chest x-ray. With history of PE, discussed with him consideration of additional assessment with CT angiogram, although he reports history of CKD and is worried about his kidneys. We will assess CMP first. Discussed with psychiatry Dr Hall, requesting for a consultation. Review of Systems Const: Denies: fever(s), chills, body aches or malaise Eyes: Denies: change in vision, eye discomfort or eye redness ENMT: Denies: throat pain, oral sores or ear or mastoid pain Card: Denies: chest pain, edema, pre-syncope or dyspnea on exertion Resp: Denies: dyspnea, productive cough, change in phlegm color or hemoptysis GI: Denies: abdominal pain, nausea, vomiting, diarrhea, constipation, hematochezia or melena : Denies: flank pain, difficulty urinating, urinary frequency or hematuria Musc: Denies: back pain, joint swelling or joint redness Skin/Breast: Denies: rash or new lesions Neuro: Denies: headache(s), numbness in extremities, weakness in extremities, dizziness, confusion or seizure-like activity Endo: Denies: polyuria or polydipsia Rayo/Lymph: Denies: easy bleeding or tender lymph nodes All/Imm: Denies: urticaria or tongue swelling Medications/Allergies Home Medications Medication Instructions Recorded Confirmed Last Taken Type aspirin 81 mg tablet,delayed 81 mg PO DAILY 10/11/22 01/13/23 Unknown History release atorvastatin 40 mg tablet 40 mg PO DAILY 10/11/22 01/13/23 Unknown History calcium carbonate 215 mg calcium 215 mg PO BID 10/11/22 01/13/23 Unknown History (500 mg) chewable tablet (Antacid (calcium carbonate)) empagliflozin 25 mg tablet 25 mg PO DAILY 10/11/22 01/13/23 Unknown History (Jardiance) gabapentin 300 mg capsule 300 mg PO BID 10/11/22 01/13/23 Unknown History (Neurontin) insulin human U-100 NPH-regulr 10 unit SUBCUT DAILY 10/11/22 01/13/23 01/12/23 09:00 History 70-30 mix 100 unit/mL subcutaneous susp (Humulin 70/30 U-100 Insulin) metformin 500 mg tablet,extended 500 mg PO BID 10/11/22 01/13/23 Unknown History release 24hr albuterol sulfate 90 mcg/actuation 2 inh inhalation Q4H PRN shortness 11/14/22 01/12/23 Unknown Rx aerosol inhaler of breath or wheezing #8.5 grams insulin aspart U-100 100 unit/mL See Rx Instructions .Route 11/14/22 01/13/23 01/12/23 19:00 Rx (3 mL) subcutaneous pen .COMPLEX #15 mL haloperidol 5 mg tablet 5 mg PO BID 30 days #60 tabs 12/27/22 01/13/23 Unknown Rx clonazepam 1 mg disintegrating 1 mg PO DAILY 30 days #60 tabs 12/28/22 01/13/23 Unknown Rx tablet hydroxyzine HCl 50 mg tablet 50 mg PO QID PRN anxiety or sleep 12/28/22 01/13/23 Unknown Rx 30 days #120 tabs apixaban 5 mg tablet (Eliquis) 5 mg PO BID #180 tabs 01/04/23 01/13/23 Unknown Rx divalproex 500 mg tablet,extended 2,000 mg PO BEDTIME 01/13/23 01/13/23 Unknown History release 24 hr prazosin 1 mg capsule 1 mg PO BEDTIME 01/13/23 01/13/23 Unknown History sertraline 100 mg tablet (Zoloft) 200 mg PO DAILY 01/13/23 01/13/23 Unknown History Allergies Allergy/AdvReac Type Severity Reaction Status Date / Time No Known Allergies Allergy Verified 01/11/23 14:48 Current Medications Generic Name Dose Route Start Last Admin Trade Name Freq PRN Reason Stop Dose Admin Apixaban 5 mg 01/13/23 09:00 01/15/23 17:16 Apixaban 5 Mg Tablet PO 5 mg BID LASHAE Administration Aspirin 81 mg 01/13/23 09:00 01/15/23 08:39 Aspirin 81 Mg Ec Tablet PO 81 mg DAILY LASHAE Administration Atorvastatin Calcium 40 mg 01/13/23 09:00 01/15/23 08:40 Atorvastatin 40 Mg Tablet PO 40 mg DAILY LASHAE Administration Calcium Carbonate 250 mg 01/13/23 09:00 01/15/23 17:16 Calcium Carbonate 500 Mg Chew Tablet PO 250 mg BID LASHAE Administration Clonazepam 1 mg 01/13/23 09:00 01/15/23 08:40 Clonazepam 1 Mg Tablet PO 1 mg DAILY LASHAE Administration Divalproex Sodium 2,000 mg 01/13/23 21:00 01/15/23 20:30 Divalproex Er 500 Mg Tablet (24h) PO 2,000 mg BEDTIME LASHAE Administration Gabapentin 300 mg 01/13/23 09:00 01/15/23 17:15 Gabapentin 300 Mg Capsule PO 300 mg BID LASHAE Administration Haloperidol 5 mg 01/13/23 09:00 01/15/23 17:15 Haloperidol 5 Mg Tablet PO 5 mg BID LASHAE Administration Hydroxyzine Pamoate 50 mg 01/13/23 00:54 01/13/23 16:32 Hydroxyzine 25 Mg Capsule PO 50 mg Q6H PRN Administration ANXIETY Insulin Aspart 10 unit 01/13/23 09:00 01/15/23 08:39 Insulin Aspart 70/30 100 Units/1 Ml SUBCUT 10 unit DAILY LASHAE Administration Insulin Human Lispro 0 unit 01/14/23 08:00 01/15/23 20:38 Insulin Lispro 100 Unit/1 Ml SUBCUT 8 unit WM&BEDTIME LASHAE Administration Protocol Metformin HCl 500 mg 01/13/23 09:00 01/15/23 17:16 Metformin Xr 500 Mg Tablet PO 500 mg BID LASHAE Administration Nicotine Polacrilex 4 mg 01/15/23 18:24 01/15/23 18:32 Nicotine 4 Mg Lozenge MUCOUS MEM 4 mg Q2H PRN Administration NICOTINE CRAVINGS Olanzapine 5 mg 01/13/23 00:54 01/13/23 21:36 Olanzapine 5 Mg Odt PO 5 mg Q4H PRN Administration Agitation/Psychosis Prazosin HCl 1 mg 01/13/23 21:00 01/15/23 20:30 Prazosin 1 Mg Capsule PO 1 mg BEDTIME LASHAE Administration Sertraline HCl 200 mg 01/13/23 09:00 01/15/23 08:40 Sertraline 100 Mg Tablet PO 200 mg DAILY LASHAE Administration Trazodone HCl 50 mg 01/13/23 00:54 01/13/23 21:37 Trazodone 50 Mg Tablet PO 50 mg BEDTIME PRN Administration SLEEP PFSH Acute PFSH: Medical History Bipolar 1 disorder Fracture of triquetrum Other reactions to severe stress Psychiatric care Social History Smoking and tobacco status: current every day smoker e-cigarettes Alcohol intake: current Alcohol intake frequency: few times a month Marital status: Single Vitals/I&O/Wt Last Vital Signs Temp 97.6 F 01/15/23 14:00 Pulse 114 H 01/15/23 20:35 Resp 18 01/15/23 20:35 BP 153/108 01/15/23 20:35 Pulse Ox 93 01/15/23 20:35 O2 Del Method 01/14/23 22:00 Weight last 48 hrs Weight 139.31 kg Physical Exam Narrative: Sitting up on soft pad on the floor Const: COMMON NORMALS: patient oriented x3 and alert GENERAL APPEARANCE: cooperative NUTRITIONAL APPEARANCE: obese ORIENTATION/CONSCIOUSNESS: Yes awake HENMT: COMMON NORMALS: oropharynx normal Neck/C-Spine: COMMON NORMALS: no JVD Resp: COMMON NORMALS: normal respiratory effort and clear to auscultation bilaterally AUSCULTATION: clear to auscultation bilaterally Cardio: COMMON NORMALS: no JVD, regular rhythm, S1 normal heart sound present, S2 normal heart sound present and No murmurs present (Cardio) RHYTHM: regular rhythm HEART SOUNDS: S1 normal heart sound present and S2 normal heart sound present GI: COMMON NORMALS: Normal to inspection, nondistended, normoactive bowel sounds present, Soft to palpation and non-tender PALPATION: Yes Soft to palpation Extremity: COMMON NORMALS: no joint enlargement and no pedal edema Neuro: COMMON NORMALS: patient oriented x3 and moves all extremities SENSORIUM/ORIENTATION: Yes alert Skin: COMMON NORMALS: no rashes or lesions noted GENERAL SKIN EXAM: no rashes or lesions noted OTHER: Tattoos. Data 01/15/23 20:50 01/12/23 21:29 A&P Assessment and plan (1) Unresponsive episode: Unclear etiology of unresponsive episode. Hx obtained from RN as he could not remember anything from the episode. Reports prior history of syncopal episodes in the past. Review of systems is largely negative. Is noted to have some lower oxygen saturation, initially hypoxic, 88-90% on room air. Not normally on oxygen. Denies dyspnea, cough, chest pain or pressure. Does not appear to be in decompensated CHF. Has not missed any doses of Eliquis. Past history of bilateral PE. Additional assessment requested with troponin EKG series, chest x-ray, CBC, CMP, lactic acid. Discussed with him consideration additionally of CT angiogram, she is concerned regarding his kidney function, follow-up results of CMP first. Continue Eliquis. CT head due to unwitnessed syncope, possible fall. Discussed with psychiatry. Consider orthostatic blood pressures in the morning. (2) Hypoxia: As above if renal function is WNL, discussed with him consideration risk of CT angiogram chest for additional assessment of possible new PEs. We will additionally assess COVID PCR. On reassessment of vital signs, blood pressure 144/84, heart rate 84, oxygen saturation 90% on room air. (3) Sinus tachycardia: As above. (4) Hyperglycemia: Received 8 units short acting insulin, glucose trend reviewed, on the elevated side, I do not see any hypoglycemic values. Will increase sliding scale to moderate. Continue ADA diabetic diet. (5) Suicidal ideation: Continue psychiatric care. Consideration of escalation of care to medical surgical floor, depending on additional findings above. In that case would likely require one-to-one sitter. (6) Bipolar 1 disorder: (7) Mild intellectual disability: (8) Intermittent explosive disorder in adult: Consult Attestations Medical Necessity Statement: Continue admission for psychiatric assessment and care and work-up after unresponsive episode. Diagnoses Unresponsive episode R41.89 Hypoxia R09.02 Sinus tachycardia R00.0 Hyperglycemia R73.9 Suicidal ideation R45.851 Bipolar 1 disorder F31.9 Mild intellectual disability F70 Intermittent explosive disorder in adult F63.81
[2023-01-15 21:24] LABS: Troponin T (5th) Once 6 ng/L (0-15)
[2023-01-15 21:25] LABS: Lactic Sepsis W/Reflex 2.3 mmol/L (0.5-2.2)
[2023-01-15 21:35] LABS: Glucose Point of Care 455 mg/dL (70-110)
[2023-01-15] MEDS: acetaminophen 325 mg Tablet 650 MG PO (22:05)
[2023-01-15] MEDS: hyDROXYzine 25 mg Capsule 50 MG PO (22:06)
--- NOTE | 2023-01-15 22:06 | ECG_ITS ---
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 Measurements Intervals [place] Rate: 84 P: 3 CT: 206 QRS: 10 QRSD: 107 T: 37 QT: 350 QTc: 416 Interpretive Statements SINUS RHYTHM Poor R wave progression Compared to ECG 01/09/2023 22:56:37 Sinus tachycardia no longer present Myocardial infarct finding no longer present Electronically Signed On 01-16-2023 0:19:33 CDT by Yina Lugo M.D. [email or web address] [email or web address] Biotechnologiessumma health.Connotate/store/[id number]
--- NOTE | 2023-01-15 22:07 | ECG_ITS ---
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 Measurements Intervals [place] Rate: 88 P: 5 AR: 205 QRS: 7 QRSD: 108 T: 38 QT: 345 QTc: 418 Interpretive Statements SINUS RHYTHM Poor R wave progression Compared to ECG 01/15/2023 22:06:49 No significant changes Electronically Signed On 01-16-2023 0:20:31 CDT by Yina Lugo M.D. [email or web address] [facility] ur[facility] hospitalAxxess Pharma/store/OM/[id number]
[2023-01-15 22:27] LABS: Glucose Point of Care 443 mg/dL (70-110)
[2023-01-15 22:29] LABS: Albumin Level 4.2 g/dL (3.5-5.2); Alkaline Phosphatase 120 U/L (40-130); Blood Urea Nitrogen 21 mg/dL (6-20); Carbon Dioxide 24 mmol/L (22-29); Chloride 94 mmol/L (98-107); Globulin 2.1 g/dL (1.3-4.6); Glomerular Filtration Rate 92.1 mL/min (90-130); Glucose 485 mg/dL (65-115); Osmolality Calculated 300 mOsm/kg (285-295); Sodium 133 mmol/L (136-145); Total Bilirubin 0.3 mg/dL (0.15-1.2); Total Protein 6.3 g/dL (6.6-8.7)
--- NOTE | 2023-01-15 22:47 | CTR_ITS ---
PROCEDURE INFORMATION: Exam: CT Head Without Contrast Exam date and time: 01/15/2023 11:12 PM Age: 42 years old Clinical indication: Injury or trauma; Blunt trauma (contusions or hematomas); Patient HX: Unwitnessed fall TECHNIQUE: Imaging protocol: Computed tomography of the head without contrast. Radiation optimization: All CT scans at this facility use at least one of these dose optimization techniques: automated exposure control; mA and/or kV adjustment per patient size (includes targeted exams where dose is matched to clinical indication); or iterative reconstruction. REPORTING DATA: Count of CT and Cardiac NM exams in prior 12 months: This patient has received 5 known CTs and 0 known cardiac nuclear medicine studies in the 12 months prior to the current study. COMPARISON: CT head wo con* [id number] 01/07/2023 10:39 PM RADIATION DOSE METRICS: Total DLP (mGy-cm): 1140.98 FINDINGS: Brain: No acute intracranial hemorrhage or mass effect. No definite acute infarct by CT. Cerebral ventricles: Ventricle size is normal for age. Paranasal sinuses: Included paranasal sinuses are essentially clear. Mastoid air cells: No significant acute finding. Bones/joints: No definite acute skull fracture. Soft tissues: No significant acute finding. CT/CT head wo con* [id number] IMPRESSION: 1. No acute intracranial hemorrhage or mass effect. 2. Other findings discussed above.
--- NOTE | 2023-01-15 22:49 | CTR_ITS ---
PROCEDURE INFORMATION: Exam: CTA Chest With Contrast Exam date and time: 01/15/2023 11:16 PM Age: 42 years old Clinical indication: Shortness of breath; Patient HX: C/O SOB. Prior history of pe. ; Additional info: HX pe and SOB TECHNIQUE: Imaging protocol: Computed tomographic angiography of the chest with contrast. 3D rendering (Not supervised by radiologist): MIP and/or 3D reconstructed images were created by the technologist. Radiation optimization: All CT scans at this facility use at least one of these dose optimization techniques: automated exposure control; mA and/or kV adjustment per patient size (includes targeted exams where dose is matched to clinical indication); or iterative reconstruction. Contrast material: OMNI 350; Contrast volume: 85 ml; Contrast route: INTRAVENOUS (IV); REPORTING DATA: Count of CT and Cardiac NM exams in prior 12 months: This patient has received 5 known CTs and 0 known cardiac nuclear medicine studies in the 12 months prior to the current study. COMPARISON: CT angio chest [place] prot [id number] 11/20/2022 10:17 PM RADIATION DOSE METRICS: Total DLP (mGy-cm): 474.97 FINDINGS: Pulmonary arteries: No pulmonary embolus or aortic dissection. Aorta: See Pulmonary arteries finding. Lungs: Unremarkable. No consolidation. No masses. Pleural spaces: Unremarkable. No pneumothorax. No pleural effusion. Heart: Unremarkable. No cardiomegaly. No pericardial effusion. Coronary arteries: Moderate calcified coronary artery disease. Lymph nodes: Unremarkable. No enlarged lymph nodes. Bones/joints: Moderate thoracic spondylosis. Soft tissues: Unremarkable. CT/CT angio chest PE protcl [id number] IMPRESSION: 1. Moderate calcified coronary artery disease. 2. No pulmonary embolus or aortic dissection.
[2023-01-15 22:50] LABS: Anion Gap 19.7 (5-19); Potassium 4.7 mmol/L (3.5-5.1); Reflex Lactate Order REFLEX LACTIC ORDERD
[2023-01-15 22:54] LABS: Alanine Aminotransferase 25 U/L (0-41); Aspartate Amino Transferase 16 U/L (0-40)
[2023-01-15] MEDS: insulin lispro 100 unit/1 mL 10 UNIT SUBCUT (22:58)
--- NOTE | 2023-01-15 23:19 | PC.NURSE ---
at 2234 this RN received call from lab regarding troponin redraw. pt 1st draw was normal. Called Dr. Ruby (hospitalist)- reported BS 433, vitals 162/83, P 80, R 16, T 98.4, orders received- pt to have troponin redrawn in morning. pt initial BS at 2039 was 506 8 units given per protocol, current BS 433 - per MD give additional 10 units insulin x1 now. MD will review labs and order Head CT as necessary.
[2023-01-15] MEDS: iohexol 350 mg/mL 500 mL Btl (per mL) IV (23:20)
[2023-01-15 23:49] LABS: Glucose Point of Care 417 mg/dL (70-110)
[2023-01-15 23:57] LABS: Ketone (Acetest) Serum Negative (Negative)
[2023-01-16 00:02] LABS: Valproic Acid Level 52.5 ug/mL (50-100)
--- NOTE | 2023-01-16 01:57 | PC.NURSE ---
Hospitalist requested glucose check repeated & give insulin required per sliding scale. Glucose is now 336.
[2023-01-16 02:10] LABS: Glucose Point of Care 336 mg/dL (70-110)
[2023-01-16] MEDS: insulin lispro 100 unit/1 mL 12 UNIT SUBCUT (02:12)
--- NOTE | 2023-01-16 02:51 | PC.NURSE ---
Patient was cooperative with pm meds, glucose was 509. Patient complained of not feeling good & stated he would wait in his room for his insulin. After drawing 8 Units insulin (per sliding scale) & took it to him, this RN found him face down & unresponsive in the floor of his room @ 2039, after calling for 2nd RN, we were able to turn him supine, pulse was difficult to palpate so code blue was called, pulse found thready, patient did not respond to deep sternal rub, as response team arrived, patient woke & sat up confused. Dr Christensen came with team, assessed patient, ordered labs, chest xray, EKG. Vitals taken q15 minutes for 1 hour, then q30min for 1 hour, this RN reported patient was on Eliquis, patient initially reported no injuries & nothing noted. Patient came to RN desk @ 2229 complaining of headache & blurred vision, MD notified & CT chest w/out contrast & CT angio/chest PE protocol were ordered. This RN called Dr Hall @ 2056, 2104, & 2135, left voice mails each time, then called Dr Huynh @ 2139 to report the above situation. This RN spoke to his guardian @ 2150 & advised of situation. BS were taken as follows: 2031-BS 509, 2128-BS 455, 2218-BS 443, 2345-BS 417, 0155-BS 336, 0334-BS 318. Dr Christensen odered an additional 10 units of insulin given @ 2257, then additional 12 units given at 211. Patient has been in bed resting comfortably since 2344, no distress noted.
--- NOTE | 2023-01-16 03:03 | ECG_ITS ---
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1980 Requested By: Tao Christensen Order Number: [id number] Reading MD: YOVANA POOL Measurements Intervals [place] Rate: 74 P: 43 [place]: 180 QRS: -5 QRSD: 130 T: 29 QT: 396 QTc: 441 Interpretive Statements SINUS RHYTHM ANTERIOR MYOCARDIAL INFARCTION , PROBABLY indetermine age [40+ ms Q WAVE AND/OR ST/T ABNORMALITY IN V3/V4] Compared to ECG 01/15/2023 22:07:40 Myocardial infarct finding now present Poor R-wave progression no longer present Electronically Signed On 01-16-2023 17:44:04 CDT by YOVANA POOL [email or web address] [id number]
[2023-01-16 03:37] LABS: Glucose Point of Care 318 mg/dL (70-110)
[2023-01-16 06:00] VITALS: BP 146/90; PULSE 74; RESP 18; TEMP 36.5; O2SAT 90
[2023-01-16 07:27] LABS: Glucose Point of Care 270 mg/dL (70-110)
[2023-01-16 08:38] LABS: Basophils % 0.5 %; Eosinophils # 0.1 10^3/uL (0.0-0.8); Eosinophils % 2.3 %; Hemoglobin 14.7 g/dL (11.7-16.6); Lymphocytes # 3.2 10^3/uL (0.8-4.8); Lymphocytes % 52.6 %; Mean Corpuscular HGB Conc 33.4 g/dL (30.0-36.0); Mean Corpuscular Hemoglobin 29.1 pg (28.0-34.0); Mean Platelet Volume 10.9 fL (7.4-10.4); Monocytes # 0.6 10^3/uL (0.2-0.9); Monocytes % 9.4 %; Neutrophils # 2.05 10^3/uL (1.8-7.7); Neutrophils % 33.7 %; Nucleated Red Blood Cells % 0 %; Platelet Count 158 10^3/cmm (130-400); Red Blood Count 5.06 10^6/uL (4.1-5.3); Red Cell Distribution Width 14.3 % (12.1-15.1); White Blood Count 6.1 10^3/uL (4.0-10.0)
[2023-01-16] MEDS: atorvastatin 40 mg Tablet PO (08:42)
[2023-01-16] MEDS: insulin lispro 100 unit/1 mL SUBCUT ×4 (08:42→20:30)
[2023-01-16] MEDS: apixaban 5 mg Tablet PO ×2 (08:42→17:33)
[2023-01-16] MEDS: aspirin 81 mg EC Tablet PO (08:42)
[2023-01-16] MEDS: calcium carbonate 500 mg Chew Tablet 250 MG PO ×2 (08:42→17:33)
[2023-01-16] MEDS: sertraline 100 mg Tablet 200 MG PO (08:43)
[2023-01-16] MEDS: gabapentin 300 mg Capsule PO ×2 (08:43→17:33)
[2023-01-16] MEDS: insulin aspart 70/30 100 units/1 mL 10 UNIT SUBCUT (08:43)
[2023-01-16] MEDS: CLONazepam 1 mg Tablet PO (08:43)
[2023-01-16] MEDS: metformin XR 500 MG Tablet PO ×2 (08:43→17:33)
[2023-01-16] MEDS: haloperidol 5 mg Tablet PO ×3 (08:43→22:09)
--- NOTE | 2023-01-16 08:44 | ECG_ITS ---
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
[2023-01-16 08:51] LABS: Lactic Acid level (Lactate) 1.1 mmol/L (0.5-2.2)
[2023-01-16 09:00] LABS: Alanine Aminotransferase 24 U/L (0-41); Albumin Level 3.6 g/dL (3.5-5.2); Alkaline Phosphatase 82 U/L (40-130); Aspartate Amino Transferase 17 U/L (0-40); Blood Urea Nitrogen 16 mg/dL (6-20); Calcium 8.5 mg/dL (8.5-10.5); Carbon Dioxide 28 mmol/L (22-29); Chloride 100 mmol/L (98-107); Globulin 2.1 g/dL (1.3-4.6); Glucose 247 mg/dL (65-115); Osmolality Calculated 295 mOsm/kg (285-295); Sodium 138 mmol/L (136-145); Total Bilirubin 0.2 mg/dL (0.15-1.2); Total Protein 5.7 g/dL (6.6-8.7)
[2023-01-16 09:21] VITALS: PULSE 77; RESP 18; O2SAT 94
[2023-01-16 11:02] LABS: Add Urine Microscopic? NO; Charge for UA Resulting for Rev
--- NOTE | 2023-01-16 11:07 | USCV_ITS ---
Zaire Nassar Age: 42 Gender: M : 1980 Exam Date: 01/16/2023 18:17 Ordering Phys: Beth Morales MD Technologist: GATO [place] [facility] [place] Indication: found unconscious. No history of cardiac intervention per patient. BP: 150 / 99 HR: 92 Rhythm: Sinus Technical Quality: Adequate with [employer] MEASUREMENTS (Male / Female) Normal Values 2D ECHO LV Diastolic Diameter PLAX 4.1 cm 4.2 - 5.9 / 3.9 - 5.3 cm LV Systolic Diameter PLAX 2.6 cm IVS Diastolic Thickness 1.6 cm 0.6 - 1.0 / 0.6 - 0.9 cm IVS Systolic Thickness 2.1 cm LVPW Diastolic Thickness 1.7 cm 0.6 - 1.0 / 0.6 - 0.9 cm LVPW Systolic Thickness 1.8 cm LVOT Diameter 2.3 cm LV Ejection Fraction 2D Teich 64.9 % LV Ejection Fraction MOD 2C 58.9 % LV Ejection Fraction 2C AL 58.7 % LA Diameter 4.1 cm LA Width 3.6 cm LA Height 4.4 cm RA Width 2.8 cm RA Height 3.4 cm Aorta at Sinotubular Diameter 3.2 cm IVC Diameter 1.6 cm M-MODE Aortic Annulus Diameter 3.3 cm LA Ao Ratio MM 1.3 MV E Point Septal Separation 0.2 cm DOPPLER AV Peak Velocity 127.0 cm/s LVOT Peak Velocity 97.0 cm/s AV Area Cont Eq vti 2.4 cm squared AV Area Cont Eq pk 3.0 cm squared MV Area PHT 4.2 cm squared Mitral E to A Ratio 1.3 MV E' Velocity 45.5 cm/s Mitral E to MV E' Ratio 9.7 Mitral E to LV E' Lateral Ratio 10.1 Mitral E to LV E' Septal Ratio 9.2 TV Peak E Velocity 44.0 cm/s FINDINGS Left Ventricle Normal left ventricular size, systolic function and wall thickness, with no regional wall motion abnormalities. Left ventricular ejection fraction is estimated at 60 %. Grade I/IV diastolic dysfunction (abnormal relaxation filling pattern), normal to mildly elevated filling pressures. Right Ventricle The right ventricle is normal in size and function. Right Atrium The right atrium is normal in size. Left Atrium The left atrium is normal in size. Mitral Valve Structurally normal mitral valve without significant stenosis or prolapse. There is no mitral regurgitation. Aortic Valve Structurally normal aortic valve without significant sclerosis or stenosis. Trace aortic regurgitation. Tricuspid Valve Structurally normal tricuspid valve without significant stenosis but trace regurgitation. Pulmonary artery systolic pressure is normal. Pulmonic Valve Structurally normal pulmonic valve without significant stenosis. There is no pulmonic regurgitation. Pericardium Normal pericardium without effusion. Aorta Normal ascending aorta dimension. IVC The inferior vena cava appears normal. CONCLUSIONS 1-Normal left ventricular size, systolic function and wall thickness, with no regional wall motion abnormalities. Left ventricular ejection fraction is estimated at 60 %. Grade I/IV diastolic dysfunction (abnormal relaxation filling pattern), normal to mildly elevated filling pressures. 2-No significant valve abnormalities. 3-There is no pericardial effusion. 4-Right atrial pressure is around 5 mm of mercury. Belkys Martinez MD (Electronically Signed) Final Date: 17 January 2023 15:18 S
[2023-01-16 11:08] LABS: Urine Appearance Clear (CLEAR); Urine Color Yellow (Yellow)
[2023-01-16 11:09] LABS: Bilirubin Urine Neg (Negative); Blood Urine Neg (Negative); Glucose Urine UA 4+ (Normal); Ketones Urine 1+ (Negative); Leukocyte Esterase Urine Negative (Negative); Nitrate Urine Negative (Negative); Protein Urine Neg (Negative); Urobilinogen Urine Neg (Negative); pH Urine 6 (5-7)
[2023-01-16 11:13] LABS: Glucose Point of Care 294 mg/dL (70-110)
[2023-01-16 12:22] LABS: Adenovirus Not Detected (NOT DETECT); Chlamydia Pneumoniae Not Detected (NOT DETECT); Coronavirus 229E,HKU1,NL63,OC4 Not Detected (NOT DETECT); Human Metapneumovirus Not Detected (NOT DETECT); Human Rhinovirus/Enterovirus Not Detected (NOT DETECT); Influenza A Not Detected (NOT DETECT); Influenza A H1 Not Detected (NOT DETECT); Influenza A H1-2009 Not Detected (NOT DETECT); Influenza A H3 Not Detected (NOT DETECT); Influenza B Not Detected (NOT DETECT); Mycoplasma Pneumoniae Not Detected (NOT DETECT); Parainfluenza Virus Type 1 Not Detected (NOT DETECT); Parainfluenza Virus Type 2 Not Detected (NOT DETECT); Parainfluenza Virus Type 3 Not Detected (NOT DETECT); Parainfluenza Virus Type 4 Not Detected (NOT DETECT); Respiratory Syncytial Virus A Not Detected (NOT DETECT); Respiratory Syncytial Virus B Not Detected (NOT DETECT); SARS-COV-2 Not Detected (NOT DETECT)
--- NOTE | 2023-01-16 12:41 | P.PN_ITS ---
Subjective Subjective: seen this am pt states he does have syncopal episodes at home as well. he has no dizziness prior to him falling. he is also a poor historian has a caregiver denies chest pain, sob Vitals/I&O/Wt Last Vital Signs Temp 97.7 F 01/16/23 06:00 Pulse 77 01/16/23 09:21 Resp 18 01/16/23 09:21 BP 146/90 01/16/23 06:00 Pulse Ox 94 01/16/23 09:21 O2 Del Method 01/16/23 09:21 Physical Exam Narrative: Sitting up on soft pad on the floor Const: COMMON NORMALS: patient oriented x3 and alert GENERAL APPEARANCE: cooperative NUTRITIONAL APPEARANCE: obese ORIENTATION/CONSCIOUSNESS: Yes awake HENMT: COMMON NORMALS: oropharynx normal Neck/C-Spine: COMMON NORMALS: no JVD Resp: COMMON NORMALS: normal respiratory effort and clear to auscultation bilaterally AUSCULTATION: clear to auscultation bilaterally Cardio: COMMON NORMALS: no JVD, regular rhythm, S1 normal heart sound present, S2 normal heart sound present and No murmurs present (Cardio) RHYTHM: regular rhythm HEART SOUNDS: S1 normal heart sound present and S2 normal heart sound present GI: COMMON NORMALS: Normal to inspection, nondistended, normoactive bowel so unds present, Soft to palpation and non-tender PALPATION: Yes Soft to pal pation Extremity: COMMON NORMALS: no joint enlargement and no pedal edema Neuro: COMMON NORMALS: patient oriented x3 and moves all extremities SENSORIUM/ORIENTATION: Yes alert Skin: COMMON NORMALS: no rashes or lesions noted GENERAL SKIN EXAM: no rashes or lesions noted OTHER: Tattoos. Data 01/16/23 08:05 01/16/23 08:05 A&P Assessment and plan (1) Unresponsive episode: Unclear etiology of unresponsive episode. Hx obtained from RN as he could not remember anything from the episode. Reports prior history of syncopal episodes in the past. Review of systems is largely negative. Is noted to have some lower oxygen saturation, initially hypoxic, 88-90% on room air. Not normally on oxygen. Denies dyspnea, cough, chest pain or pressure. Does not appear to be in decompensated CHF. Has not missed any doses of Eliquis. Past history of bilateral PE. Trops negative CTA negative for PE Echo pending CT head shows no bleed Recommend holter monitor x14 days at discharge F/u with cardiology within a month of discharge for reviewing holter results Discussed with psychiatry. He is asymptomatic this AM. (2) Hypoxia: Saturating 94-96% on room air. (3) Sinus tachycardia: As above. (4) Hyperglycemia: Received 8 units short acting insulin, glucose trend reviewed, on the elevated side, I do not see any hypoglycemic values. Will increase sliding scale to moderate. Continue ADA diabetic diet. (5) Suicidal ideation: Continue psychiatric care. Consideration of escalation of care to medical surgical floor, depending on additional findings above. In that case would likely require one-to-one sitter. (6) Bipolar 1 disorder: (7) Mild intellectual disability: (8) Intermittent explosive disorder in adult: Attestations Medical Necessity Statement*: Defer to primary team Diagnoses Unresponsive episode R41.89 Hypoxia R09.02 Sinus tachycardia R00.0 Hyperglycemia R73.9 Suicidal ideation R45.851 Bipolar 1 disorder F31.9 Mild intellectual disability F70 Intermittent explosive disorder in adult F63.81
--- NOTE | 2023-01-16 13:02 | PC.NURSE ---
spoke with [facility] (radiology) for pt echo. waiting certified rehabilitation counselor back for time of us.
[2023-01-16 14:00] VITALS: BP 150/99; PULSE 103; RESP 17; TEMP 36.5; O2SAT 90
[2023-01-16 16:08] LABS: Glucose Point of Care 318 mg/dL (70-110)
--- NOTE | 2023-01-16 16:43 | P.NPUPN_ITS ---
Subjective NPU Subjective: Patient is a 42-year-old white male with a history of impulse control disorder and otherwise specified and intellectual disability currently residing in an independent living facility. Patient had an episode of being unresponsive and potentially hypoxic yesterday night. The patient stated that he was ready to return home as he was no longer having thoughts of hurting himself or anyone else. The patient was agreeable to having an echocardiogram to determine whether the patient had more significant problems and is scheduled for having an echo cardiogram later today. He had reported having episodes of syncope before in the past although his historical abilities leave much to be desired. He was redirectable on the milieu and made no threats on the unit to others. Mental Status Exam MSE Comments: This is an obese versus morbidly obese white male in hospital scrubs with adequate grooming and eye contact. No abnormal movements except for mild psychomotor retardation or psychomotor agitation. He was cooperative with exam and in no acute distress. Speech was slightly decreased rate and volume for childlike. Mood described as good. His affect was somewhat flat. His thought process was linear and organized. Thought content: Patient denied suicidal or homicidal ideations, there were no delusions reported or noted, he denied any auditory or visual hallucinations. Attention and concentration are intact. His memory was mostly reliable but none were formally tested. He is alert and oriented x3. Insight and judgment are limited and impulse control is limited. Intellectual ability appears limited versus impaired. Vitals/I&O/Wt Last Vital Signs Temp 97.7 F 01/16/23 14:00 Pulse 103 H 01/16/23 14:00 Resp 17 01/16/23 14:00 BP 150/99 01/16/23 14:00 Pulse Ox 90 01/16/23 14:00 O2 Del Method 01/16/23 09:21 Data NPU 01/16/23 08:05 01/16/23 08:05 A&P Assessment and plan (1) Suicidal ideation: (2) Bipolar 1 disorder: (3) Mild intellectual disability: (4) Intermittent explosive disorder in adult: Plan This is a 42-year-old white male with a long history of intellectual disability and impulse control issues [facility] from the [facility] with a guardian after a reported outburst without current issues. 1. Continue current medications. Awaiting results of echocardiogram and recommended placement of holter monitor with 1 month follow up with art historian. 2. Continue every 15 minute checks for safety. 3. Encourage individual, group and milieu therapies. 4. Work with guardian/[facility] to facilitate completion of medical workup with plan for discharge tomorrow. Involuntary Hold Information 96 Hour Hold: 96 Hour Involuntary Admission: Yes 96 Hour Hold Ending Date: 01/18/23 96 Hour Hold Ending Time: 21:38 Attestations NPU Medical Necessity Statement*: Inpatient hospitalization is medically necessary and the clinically appropriate intervention at this time. We will monitor/initiate medications and make changes as indicated with likely length of stay 1-2 days. Coding Level of Care Code Acute Code for Chg Fwd Diagnoses Suicidal ideation R45.851 Bipolar 1 disorder F31.9 Mild intellectual disability F70 Intermittent explosive disorder in adult F63.81
--- NOTE | 2023-01-16 18:37 | PC.NURSE ---
PATIENT OFF NPU VIA W/C ESCORTED BY STAFF TO RADIOLOGY FOR ECG. NO DISTRESS NOTED.
[2023-01-16] MEDS: prazosin 1 mg Capsule PO (21:09)
[2023-01-16] MEDS: divalproex ER 500 mg Tablet (24H) 2000 MG PO (21:09)
[2023-01-16 22:00] VITALS: BP 148/95; PULSE 109; RESP 16; TEMP 36.6; O2SAT 96
--- NOTE | 2023-01-16 22:10 | PC.NURSE ---
Patient became agitated regarding health issues and stated he did not know why he was on this unit and not on a medical unit. Explained to patient that his medical needs were being looked into. Patient continued to be upset and stated My blood sugars are terrible and nobody cares. Reassured patient that staff were monitoring his health issues. Patient continued to focus on the same subject and continued to be agitated. Patient then asked for something to help calm him down. PRN haldol given po. Spent several minutes with patient talking about his concerns.
[2023-01-16 22:53] LABS: Glucose Point of Care 367 mg/dL (70-110)
--- NOTE | 2023-01-17 04:54 | PC.NURSE ---
Patient has rested comfortably during night. No signs of distress. No further behaviors present after being given prn earlier in shift.
[2023-01-17 06:00] VITALS: BP 151/94; PULSE 74; TEMP 36.4; O2SAT 95
[2023-01-17] MEDS: perflutren protein-a microsphr 0.22 mg/mL SDV 3 mL IV (07:17)
[2023-01-17 07:53] LABS: Glucose Point of Care 345 mg/dL (70-110)
[2023-01-17] MEDS: haloperidol 5 mg Tablet PO (08:14)
[2023-01-17] MEDS: calcium carbonate 500 mg Chew Tablet 250 MG PO (08:15)
[2023-01-17] MEDS: metformin XR 500 MG Tablet PO (08:18)
[2023-01-17] MEDS: gabapentin 300 mg Capsule PO (08:18)
[2023-01-17] MEDS: atorvastatin 40 mg Tablet PO (08:18)
[2023-01-17] MEDS: apixaban 5 mg Tablet PO (08:19)
[2023-01-17] MEDS: aspirin 81 mg EC Tablet PO (08:19)
[2023-01-17] MEDS: CLONazepam 1 mg Tablet PO (08:19)
[2023-01-17] MEDS: insulin aspart 70/30 100 units/1 mL 10 UNIT SUBCUT (08:20)
[2023-01-17] MEDS: insulin lispro 100 unit/1 mL SUBCUT ×2 (08:26→13:09)
[2023-01-17] MEDS: sertraline 100 mg Tablet 200 MG PO (09:21)
--- NOTE | 2023-01-17 11:29 | PM.PN ---
Subjective Subjective: seen today no acute events overnight resting comfortably in bed Vitals/I&O/Wt Last Vital Signs Temp 97.6 F 01/17/23 06:00 Pulse 74 01/17/23 06:00 Resp 16 01/16/23 22:00 BP 151/94 01/17/23 06:00 Pulse Ox 95 01/17/23 06:00 O2 Del Method 01/17/23 06:00 Physical Exam Narrative: Sitting up on soft pad on the floor Const: COMMON NORMALS: patient oriented x3 and alert GENERAL APPEARANCE: cooperative NUTRITIONAL APPEARANCE: obese ORIENTATION/CONSCIOUSNESS: Yes awake HENMT: COMMON NORMALS: oropharynx normal Neck/C-Spine: COMMON NORMALS: no JVD Resp: COMMON NORMALS: normal respiratory effort and clear to auscultation bilaterally AUSCULTATION: clear to auscultation bilaterally Cardio: COMMON NORMALS: no JVD, regular rhythm, S1 normal heart sound present, S2 normal heart sound present and No murmurs present (Cardio) RHYTHM: regular rhythm HEART SOUNDS: S1 normal heart sound present and S2 normal heart sound present GI: COMMON NORMALS: Normal to inspection, nondistended, normoactive bowel sounds present, Soft to palpation and non-tender PALPATION: Yes Soft to palpation Extremity: COMMON NORMALS: no joint enlargement and no pedal edema Neuro: COMMON NORMALS: patient oriented x3 and moves all extremities SENSORIUM/ORIENTATION: Yes alert Skin: COMMON NORMALS: no rashes or lesions noted GENERAL SKIN EXAM: no rashes or lesions noted OTHER: Tattoos. Data 01/16/23 08:05 01/16/23 08:05 A&P Assessment and plan (1) Unresponsive episode: Unclear etiology of unresponsive episode. Hx obtained from RN as he could not remember anything from the episode. Reports prior history of syncopal episodes in the past. Review of systems is largely negative. Is noted to have some lower oxygen saturation, initially hypoxic, 88-90% on room air. Not normally on oxygen. Denies dyspnea, cough, chest pain or pressure. Does not appear to be in decompensated CHF. Has not missed any doses of Eliquis. Past history of bilateral PE. Trops negative CTA negative for PE Echo pending CT head shows no bleed Recommend holter monitor x14 days at discharge F/u with cardiology within a month of discharge for reviewing holter results Discussed with psychiatry. He is asymptomatic this AM. (2) Hypoxia: Saturating 94-96% on room air. (3) Sinus tachycardia: As above. (4) Hyperglycemia: Received 8 units short acting insulin, glucose trend reviewed, on the elevated side, I do not see any hypoglycemic values. Will increase sliding scale to moderate. Continue ADA diabetic diet. (5) Suicidal ideation: Continue psychiatric care. Consideration of escalation of care to medical surgical floor, depending on additional findings above. In that case would likely require one-to-one sitter. (6) Bipolar 1 disorder: (7) Mild intellectual disability: (8) Intermittent explosive disorder in adult: Attestations Medical Necessity Statement*: defer to primary team Diagnoses Unresponsive episode R41.89 Hypoxia R09.02 Sinus tachycardia R00.0 Hyperglycemia R73.9 Suicidal ideation R45.851 Bipolar 1 disorder F31.9 Mild intellectual disability F70 Intermittent explosive disorder in adult F63.81
[2023-01-17 12:40] LABS: Glucose Point of Care 326 mg/dL (70-110)
[2023-01-17 14:00] VITALS: BP 147/83; PULSE 89; RESP 18; TEMP 36.6; O2SAT 92
--- NOTE | 2023-01-17 14:07 | DCPLANNER ---
IMM completed 01/17/23 @ 2274 verbal with career and transition teacher
[2023-01-17] MEDS: OLANZapine 5 mg ODT PO (15:38)
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
[2023-01-17 16:15] VITALS: BP 147/83; PULSE 89; RESP 18; TEMP 36.6; O2SAT 92
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
== END 2023-01-17 16:55 | disposition home or self-care (01) | DRG 885 ==
LOC: ER 22:20 → NP 23:16
PROVIDERS: Internal Medicine; Student in an Organized Health Care Education/Training Program; Admitting Provider Psychiatry & Neurology Psychiatry; Emergency Provider Emergency Medicine; PCP Family Medicine; Visit Provider Psychiatry & Neurology Psychiatry
DX: F31.9 Bipolar disorder, unspecified (principal); R45.851 Suicidal ideations; E87.20 Acidosis, unspecified; F70 Mild intellectual disabilities; F63.81 Intermittent explosive disorder; E11.65 Type 2 diabetes mellitus with hyperglycemia; R55 Syncope and collapse; I10 Essential (primary) hypertension; H53.8 Other visual disturbances; R51.9 Headache, unspecified; R00.0 Tachycardia, unspecified; R09.02 Hypoxemia; Z62.810 Personal history of physical and sexual abuse in childhood; Z62.812 Personal history of neglect in childhood; Z79.4 Long term (current) use of insulin; Z79.01 Long term (current) use of anticoagulants; Z86.711 Personal history of pulmonary embolism
CPT/HCPCS: 36415; 36416; 70450; 71045; 71275; 73110; 80053; 80164; 80306; 80307; 81003; 82009; 82962; 83605; 84484; 85025; 87635; 93005; 93306; 96372; 97165; 99213; 99238; 99285; C8929; J1815; Q9956; Q9967

== ENCOUNTER 2023-01-19 08:13 | Outpatient (CLI) | payer MEDICARE, MEDICAID, SELFPAY | END 2023-01-19 08:14 | disposition home or self-care (01) | LOC: RAD 08:16 | PROVIDERS: PCP Family Medicine; Visit Provider Internal Medicine | DX: I10 Essential (primary) hypertension (principal); I26.99 Other pulmonary embolism without acute cor pulmonale; E78.5 Hyperlipidemia, unspecified; E11.9 Type 2 diabetes mellitus without complications | CPT/HCPCS: 99204 ==

== ENCOUNTER 2023-03-13 21:30 | Inpatient (IN) | payer MEDICARE, MEDICAID, SELFPAY ==
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
[2023-03-13 21:33] VITALS: BP 110/74; PULSE 113; RESP 18; TEMP 37.1; O2SAT 94; BMI 39.5
[2023-03-13 22:07] LABS: Amphetamines Screen Urine Negative (Negative); Barbiturates Screen Urine Negative (Negative); Benzodiazepines Screen Urine Negative (Negative); Cocaine Screen Urine Negative (Negative); Opiate Screen Urine Negative (Negative); PCP Screen Urine Negative (Negative); THC Screen Urine Negative (Negative)
[2023-03-13 22:14] LABS: Basophils % 0.2 %; Eosinophils # 0.1 10^3/uL (0.0-0.8); Hematocrit 53.7 % (42.0-52.0); Hemoglobin 17.5 g/dL (11.7-16.6); Lymphocytes # 2.6 10^3/uL (0.8-4.8); Lymphocytes % 31.7 %; Mean Corpuscular HGB Conc 32.6 g/dL (30.0-36.0); Mean Corpuscular Hemoglobin 28.8 pg (28.0-34.0); Mean Corpuscular Volume 88.3 fl (80-94); Mean Platelet Volume 10.3 fL (7.4-10.4); Monocytes # 0.7 10^3/uL (0.2-0.9); Monocytes % 7.9 %; Neutrophils # 4.83 10^3/uL (1.8-7.7); Neutrophils % 58.8 %; Nucleated Red Blood Cells % 0 %; Platelet Count 234 10^3/cmm (130-400); Red Blood Count 6.08 10^6/uL (4.1-5.3); Red Cell Distribution Width 14.2 % (12.1-15.1); White Blood Count 8.2 10^3/uL (4.0-10.0)
[2023-03-13 22:46] LABS: Alanine Aminotransferase 27 U/L (0-41); Albumin Level 4.4 g/dL (3.5-5.2); Alkaline Phosphatase 76 U/L (40-130); Anion Gap 16.3 (5-19); Aspartate Amino Transferase 16 U/L (0-40); Blood Urea Nitrogen 18 mg/dL (6-20); Calcium 9.9 mg/dL (8.5-10.5); Carbon Dioxide 27 mmol/L (22-29); Chloride 100 mmol/L (98-107); Globulin 2.8 g/dL (1.3-4.6); Glomerular Filtration Rate 92.1 mL/min (90-130); Glucose 205 mg/dL (65-115); Osmolality Calculated 296 mOsm/kg (285-295); Potassium 4.3 mmol/L (3.5-5.1); Sodium 139 mmol/L (136-145); Thyroid Stimulating Hormone 4.07 uIU/mL (0.27-4.20); Total Bilirubin 0.2 mg/dL (0.15-1.2); Total Protein 7.2 g/dL (6.6-8.7)
[2023-03-13 22:47] LABS: Acetaminophen < 5.0 ug/mL (10-30); Alcohol Level < 10 mg/dL (0-10); Salicylate < 0.3 mg/dL (3-10)
[2023-03-13 23:19] VITALS: BP 152/117; PULSE 104; RESP 18; O2SAT 96
[2023-03-14] MEDS: divalproex ER 500 mg Tablet (24H) 2000 MG PO ×2 (00:47→15:36)
[2023-03-14] MEDS: atorvastatin 40 mg Tablet PO ×2 (00:47→20:12)
[2023-03-14] MEDS: prazosin 1 mg Capsule PO ×2 (00:47→20:12)
--- NOTE | 2023-03-14 02:47 | PC.NURSE ---
2320-pt admitted to [facility] from ED voluntarily for increased depression and anxiety. arrived anxious but cooperative. body/safety search performed with no contraband or skin issues noted. pt reports living in an [facility] and being very upset with a staff member and how that staff member treats him so it has caused his depression and anxiety to worsen over the past few days. denies si hi avh. reports not taking his medications as he should for the last few days because he does not feel they are working. states he is also upset with his father because he told him he was no longer in his life and he did not want him calling anymore. pt tearful at times. reports diabetes, hyperlipidemia, HTN. no other issues voiced or noted.
[2023-03-14 06:00] VITALS: RESP 17
[2023-03-14 08:04] LABS: Glucose Point of Care 185 mg/dL (70-110)
[2023-03-14] MEDS: aspirin 81 mg EC Tablet PO (09:44)
[2023-03-14] MEDS: gabapentin 300 mg Capsule PO ×2 (09:44→17:56)
[2023-03-14] MEDS: sertraline 100 mg Tablet 200 MG PO (09:44)
[2023-03-14] MEDS: metformin XR 500 MG Tablet 1000 MG PO ×2 (09:44→17:56)
[2023-03-14] MEDS: apixaban 5 mg Tablet PO ×2 (09:44→17:56)
[2023-03-14] MEDS: OLANZapine 5 mg ODT PO (09:44)
[2023-03-14] MEDS: CLONazepam 1 mg Tablet PO ×2 (11:52→20:12)
[2023-03-14 12:50] LABS: Glucose Point of Care 222 mg/dL (70-110)
[2023-03-14] MEDS: insulin lispro 100 unit/1 mL SUBCUT ×3 (13:03→20:28)
[2023-03-14 14:00] VITALS: BP 157/91; PULSE 113; RESP 18; TEMP 36.3; O2SAT 94
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
[2023-03-14 17:40] LABS: Glucose Point of Care 192 mg/dL (70-110)
[2023-03-14 19:51] VITALS: BP 113/76; PULSE 89; RESP 16; TEMP 37.1; O2SAT 90
[2023-03-14 20:27] LABS: Glucose Point of Care 263 mg/dL (70-110)
[2023-03-15 06:00] VITALS: RESP 15
[2023-03-15 08:30] LABS: Glucose Point of Care 174 mg/dL (70-110)
[2023-03-15] MEDS: hyDROXYzine 25 mg Capsule 50 MG PO (09:44)
[2023-03-15] MEDS: ARIPiprazole 10 mg Tablet 5 MG PO (09:44)
[2023-03-15] MEDS: apixaban 5 mg Tablet PO ×2 (09:44→17:27)
[2023-03-15] MEDS: divalproex ER 500 mg Tablet (24H) 2000 MG PO (09:44)
[2023-03-15] MEDS: gabapentin 300 mg Capsule PO ×2 (09:44→17:27)
[2023-03-15] MEDS: metformin XR 500 MG Tablet 1000 MG PO ×2 (09:45→17:27)
[2023-03-15] MEDS: aspirin 81 mg EC Tablet PO (09:45)
[2023-03-15] MEDS: sertraline 100 mg Tablet 200 MG PO (09:45)
[2023-03-15 12:36] LABS: Glucose Point of Care 206 mg/dL (70-110)
[2023-03-15] MEDS: insulin lispro 100 unit/1 mL SUBCUT ×3 (12:54→20:46)
[2023-03-15 14:00] VITALS: BP 138/87; PULSE 94; RESP 18; TEMP 36.6; O2SAT 96
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
[2023-03-15 17:23] LABS: Glucose Point of Care 248 mg/dL (70-110)
[2023-03-15] MEDS: OLANZapine 5 mg ODT PO (17:39)
[2023-03-15 20:27] LABS: Glucose Point of Care 366 mg/dL (70-110)
[2023-03-15] MEDS: atorvastatin 40 mg Tablet PO (20:44)
[2023-03-15] MEDS: prazosin 1 mg Capsule PO (20:44)
[2023-03-15] MEDS: diazePAM 5 mg Tablet 10 MG PO (20:44)
--- NOTE | 2023-03-15 21:30 | PM.CONSULT ---
Providers/Reason For Consult Consulting Physician/Specialty*: Internal Medicine, Beth Carmen OCHOA Reason for Consult*: Rapid Response, Patient found unresponsive on floor Attending Physician: Nickolas Huynh MD Primary Care Provider: Blair Cheatham MD History of Present Illness History of Present Illness This note is to reflect consult note as well as rapid response note from today. Zaire Nassar is a 42 year old male well-known to me from previous admission has a past medical history of bipolar 1 disorder and is under psychiatric care at this time. There was a rapid response called today for a period of unresponsiveness. Patient was found on the floor facedown by his roommate. His blood sugar was found to be 360 earlier and he was given 14 units of insulin. Blood sugar was rechecked and it was 285. Patient did not lose pulse at all. Blood pressure 195/119 patient appearing diaphoretic on arrival to room. Saturating 91% on room air. Subsequently patient woke up and was placed in bed. He stated that he felt lightheaded. Earlier he had some diarrhea and the last thing he remembers is that he was on the toilet. On a previous admission in January patient had a similar episode when he was found unresponsive facedown in MPU. CODE BLUE was called however on arrival to bedside patient was awake alert sitting up in floor. CTA chest was done to rule out PE. Echo was done which did not show any wall motion abnormalities. EKG did not show any acute ischemic changes. EKG did show sinus tachycardia. At that visit patient was advised to wear a Holter monitor to rule out occult arrhythmia and was sent home. He states that he wore the Holter monitor and [facility]. He does not know the results of the study. There are no results available in the computer either. During rapid response CBC CMP troponin was drawn. EKG showed sinus tachycardia today. CT head without contrast was ordered. Unsure if patient hit his head or not. Orthostatic vitals were obtained. Patient experienced immediate lightheadedness upon sitting up and standing. He was unable to complete orthostatic vitals check as when he stood he felt really dizzy and had to sit down. Laying blood pressure 151/88, sitting 148/101. Standing unable to obtain. Heart rate however went from 118 laying down to 123 sitting up and 1 35-1 40 standing. Continue to complain of lightheadedness. Earlier today he was placed on Valium and got his first dose tonight. Patient is currently on moderate dose intensity sliding scale insulin. He does have a history of bilateral PE in the past and is currently on Eliquis. At the time of my assessment patient denies chest pain, shortness of breath. He states he feels like crap since I am lightheaded and slightly nauseous . Otherwise denies abdominal pain. Does not provide much history about the diarrhea either. Medications/Allergies Home Medications Medication Instructions Recorded Confirmed Last Taken Type aspirin 81 mg tablet,delayed 81 mg PO DAILY 10/11/22 03/13/23 03/13/23 08:00 History release atorvastatin 40 mg tablet 40 mg PO BEDTIME 10/11/22 03/14/23 03/12/23 20:00 History calcium carbonate 215 mg calcium 215 mg PO BID 10/11/22 03/14/23 Unknown History (500 mg) chewable tablet (Antacid (calcium carbonate)) empagliflozin 25 mg tablet 25 mg PO DAILY 10/11/22 03/14/23 03/13/23 08:00 History (Jardiance) gabapentin 300 mg capsule 300 mg PO BID 10/11/22 03/14/23 03/13/23 08:00 History (Neurontin) insulin human U-100 NPH-regulr 10 unit SUBCUT DAILY 10/11/22 03/01/23 01/12/23 09:00 History 70-30 mix 100 unit/mL subcutaneous susp (Humulin 70/30 U-100 Insulin) metformin 500 mg tablet,extended 1,000 mg PO BID 10/11/22 03/14/23 03/13/23 08:00 History release 24hr albuterol sulfate 90 mcg/actuation 2 inh inhalation Q4H PRN shortness 11/14/22 03/13/23 03/13/23 09:00 Rx aerosol inhaler of breath or wheezing #8.5 grams insulin aspart U-100 100 unit/mL See Rx Instructions .Route 11/14/22 03/01/23 01/12/23 19:00 Rx (3 mL) subcutaneous pen .COMPLEX #15 mL hydroxyzine HCl 50 mg tablet 50 mg PO QID PRN anxiety or sleep 12/28/22 03/14/23 Unknown Rx 30 days #120 tabs apixaban 5 mg tablet (Eliquis) 5 mg PO BID #180 tabs 01/04/23 03/13/23 03/13/23 09:00 Rx clonazepam 1 mg disintegrating 1 mg PO .qhs 30 days #30 tabs 03/01/23 03/14/23 03/12/23 20:00 Rx tablet divalproex 500 mg tablet,extended 2,000 mg PO BEDTIME 30 days #120 03/01/23 03/14/23 03/12/23 20:00 Rx release 24 hr tabs haloperidol 5 mg tablet 5 mg PO .qhs 30 days #30 tabs 03/01/23 03/14/23 03/12/23 20:00 Rx prazosin 1 mg capsule 1 mg PO BEDTIME 30 days #30 caps 03/01/23 03/14/23 03/12/23 20:00 Rx sertraline 100 mg tablet (Zoloft) 200 mg PO DAILY 30 days #60 tabs 03/01/23 03/14/23 03/13/23 08:00 Rx clonazepam 1 mg tablet 1 mg PO DAILY PRN Anxiety 03/14/23 03/14/23 Unknown History liraglutide 0.6 mg/0.1 mL (18 mg/3 1.8 mg SUBCUT DAILY 03/14/23 03/14/23 03/13/23 08:00 History mL) subcutaneous pen injector ([employer] 2-Philippe) promethazine-DM 03/14/23 Unknown History Allergies Allergy/AdvReac Type Severity Reaction Status Date / Time No Known Allergies Allergy Verified 03/01/23 11:16 Current Medications Generic Name Dose Route Start Last Admin Trade Name Freq PRN Reason Stop Dose Admin Apixaban 5 mg 03/14/23 09:00 03/15/23 17:27 Apixaban 5 Mg Tablet PO 5 mg BID LASHAE Administration Aripiprazole 5 mg 03/15/23 09:00 03/15/23 09:44 Aripiprazole 10 Mg Tablet PO 5 mg DAILY LASHAE Administration Aspirin 81 mg 03/14/23 09:00 03/15/23 09:45 Aspirin 81 Mg Ec Tablet PO 81 mg DAILY LASHAE Administration Atorvastatin Calcium 40 mg 03/14/23 00:15 03/15/23 20:44 Atorvastatin 40 Mg Tablet PO 40 mg BEDTIME LASHAE Administration Diazepam 10 mg 03/15/23 21:00 03/15/23 20:44 Diazepam 5 Mg Tablet PO 10 mg BID@0900,2100 LASHAE Administration Diphenhydramine HCl 50 mg 03/13/23 23:19 03/16/23 00:05 Diphenhydramine 50 Mg/Ml Sdv 1ml IM 50 mg Q4H PRN Administration Severe Aggression Divalproex Sodium 2,000 mg 03/15/23 08:00 03/15/23 09:44 Divalproex Er 500 Mg Tablet (24h) PO 2,000 mg BREAKFAST LASHAE Administration Gabapentin 300 mg 03/14/23 09:00 03/15/23 17:27 Gabapentin 300 Mg Capsule PO 300 mg BID LASHAE Administration Hydroxyzine Pamoate 50 mg 03/13/23 23:19 03/15/23 09:44 Hydroxyzine 25 Mg Capsule PO 50 mg Q6H PRN Administration ANXIETY Sodium Chloride 1,000 mls @ 125 mls/hr 03/15/23 22:00 03/15/23 23:18 Sodium Chloride 0.9% IV 125 mls/hr .Q8H LASHAE Administration Insulin Human Lispro 0 unit 03/14/23 08:00 03/15/23 20:46 Insulin Lispro 100 Unit/1 Ml SUBCUT 14 unit WM&BEDTIME LASHAE Administration Protocol Metformin HCl 1,000 mg 03/14/23 09:00 03/15/23 17:27 Metformin Xr 500 Mg Tablet PO 1,000 mg BID LASHAE Administration Non-Formulary Medication 215 mg 03/14/23 09:00 03/15/23 17:28 Calcium Carbonate [Antacid (Calcium Carbonate)] PO Not Given BID [facility] Non-Formulary Medication 25 mg 03/14/23 09:00 03/15/23 09:45 Empagliflozin [Jardiance] PO Not Given DAILY [facility] Non-Formulary Medication 1.8 mg 03/14/23 09:00 03/15/23 09:45 Liraglutide [Victoza 2-Philippe] SUBCUT Not Given DAILY [facility] Olanzapine 5 mg 03/13/23 23:19 03/15/23 17:39 Olanzapine 5 Mg Odt PO 5 mg Q4H PRN Administration Agitation/Psychosis Ondansetron HCl 4 mg 03/13/23 23:19 03/15/23 23:12 Ondansetron 4 Mg Tablet PO 4 mg Q6H PRN Administration NAUSEA AND VOMITING Prazosin HCl 1 mg 03/14/23 00:15 03/15/23 20:44 Prazosin 1 Mg Capsule PO 1 mg BEDTIME LASHAE Administration Sertraline HCl 200 mg 03/14/23 09:00 03/15/23 09:45 Sertraline 100 Mg Tablet PO 200 mg DAILY LASHAE Administration Trazodone HCl 50 mg 03/13/23 23:19 03/15/23 23:12 Trazodone 50 Mg Tablet PO 50 mg BEDTIME PRN Administration SLEEP PFSH Acute PFSH: Medical History Bipolar 1 disorder Fracture of triquetrum Other reactions to severe stress Psychiatric care Social History Smoking and tobacco status: current every day smoker e-cigarettes Alcohol intake: current Alcohol intake frequency: few times a month Substance/Drug Use: never Marital status: Single Vitals/I&O/Wt Last Vital Signs Temp 98.3 F 03/16/23 01:01 Pulse 89 03/16/23 01:00 Resp 15 03/16/23 01:00 BP 121/79 03/16/23 01:00 Pulse Ox 96 03/16/23 01:00 O2 Del Method Nasal Cannula 03/15/23 23:47 03/15/23 03/15/23 03/16/23 14:59 22:59 06:59 Intake Total 116.55 / 116.55 Balance 116.55 / 116.55 Weight last 48 hrs Weight 132.903 kg Physical Exam Narrative: General: Alert oriented x3, patient seen laying in bed in no acute distress at this time. Awake alert. Complains of being lightheaded. HEENT: Normocephalic, atraumatic, EOMI, Cardio: Regular rate rhythm, normal S1-S2 Respiratory: Good bilateral air entry, no wheezes no rhonchi appreciated GI: Abdomen soft, nontender, nondistended, bowel sounds + Behavior: Appropriate and cooperative Extremities: Pulses 2+, no edema, no cyanosis Data 03/15/23 21:58 03/15/23 21:58 A&P Assessment and plan (1) Depression: (2) Intermittent explosive disorder in adult: (3) Mild intellectual disability: (4) Diabetes: (5) Hyperlipidemia: (6) Hypertension: (7) Pulmonary embolism: Plan #Unresponsive episode. Possibly vasovagal versus occult arrhythmia? #History of bilateral PEs, currently on Eliquis #Diabetes mellitus complicated by hyperglycemia #Bipolar 1 disorder ? I will move patient to cardiac telemetry floor for telemetry monitoring overnight ? Orthostatics are positive. We will give 1 L normal saline bolus and placed on normal saline 125 cc/h after IV line is obtained ? EKG shows sinus tachycardia no acute ischemic changes. ? We will check troponins, CBC, CMP, magnesium, VBG ? Check CT head without contrast since patient had an unwitnessed fall/unresponsive episode and is currently on Eliquis. ? Patient did wear Holter monitor last time and return to the [facility]. ? Day team to reach out to [facility] in a.m. to obtain results of Holter study. ? Continue to monitor on telemetry ? Consider cardiology consult after reviewing Holter results ? Patient had an echo 2 months ago at previous admission after similar episode above. I would not repeat at this time. ? It is likely that patient had vasovagal syncope secondary to dehydration due to diarrhea? Versus polypharmacy. Valium was added today. Unsure why he may have had an event at the last admission as well. ? I would advised to hold Valium, Victoza, metformin at this time. Hold prazosin. ? Hold Jardiance ? Continue on sliding scale insulin moderate dose intensity ? Add Lantus 5 units at bedtime ? Continue to monitor blood pressure every 4 hours ? Monitor bowel movements and check for C. difficile if greater than 3 and 24-hour period ? Rest of management as per psychiatry ? Once medically cleared patient may move back to NPU. ?We will check divalproex level Full code SCDs, continue Eliquis Consult Attestations Medical Necessity Statement: Patient requires to be in the hospital for work-up of unresponsive episode. Once medically cleared defer to psychiatric team for discharge. Coding Level of Care Code G0425 (30 min) TH Encounter Time (min): 40 Patient seen via Telehealth in the acute care setting (hospital or ED location) by agreement and consent of patient or patient national account representative. Telehealth technology used during the visit includes video and audio. This patient encounter is appropriate and reasonable under the circumstances given the patient?s particular presentation at this time. The patient has been advised of the potential risks and limitations of this mode of treatment (including but not limited to the absence of in-person examination at this time) and has agreed to be treated by an off-site physician for this visit. If deemed clinically necessary from this telehealth visit, or if condition or consent for telehealth visit changes, an in-person visit will be arranged. For this encounter, total time for the origination of telehealth care on this date is as shown. Patient provided consent to be seen over audiovisual cart before proceeding with history taking and physical exam in presence of RN. Also he was seen during a rapid response situation. Other Coding Information The high probability of a clinically significant, sudden or life threatening deterioration of the patient's [cardiovascular] system(s) required my full and direct attention, intervention and personal management. The critical care time is as shown. This time is in addition to time spent performing any reported procedures but includes the following: [x] Data and vital sign review and interpretation [x] Patient assessment, examination and intervention [x] Documentation [x] Medication orders and management Critical Care Time (min): 40 Diagnoses Depression F32.A Intermittent explosive disorder in adult F63.81 Mild intellectual disability F70 Diabetes E11.9 Hyperlipidemia E78.5 Hypertension I10 Pulmonary embolism I26.99
[2023-03-15 21:52] VITALS: BP 148/101; BP 151/88; BP 156/90; PULSE 118; PULSE 123; PULSE 135
--- NOTE | 2023-03-15 21:52 | CTR_ITS ---
PROCEDURE INFORMATION: Exam: CT Head Without Contrast Exam date and time: 03/15/2023 10:01 PM Age: 42 years old Clinical indication: Injury or trauma; Fall; Blunt trauma (contusions or hematomas); With loss of consciousness; Loss of consciousness for 30 minutes or less; Additional info: Fall, unresponsive TECHNIQUE: Imaging protocol: Computed tomography of the head without contrast. Radiation optimization: All CT scans at this facility use at least one of these dose optimization techniques: automated exposure control; mA and/or kV adjustment per patient size (includes targeted exams where dose is matched to clinical indication); or iterative reconstruction. REPORTING DATA: Count of CT and Cardiac NM exams in prior 12 months: This patient has received 6 known CTs and 0 known cardiac nuclear medicine studies in the 12 months prior to the current study. COMPARISON: CT head wo con* [id number] 01/15/2023 11:12 PM RADIATION DOSE METRICS: Total DLP (mGy-cm): 1260.78 FINDINGS: Brain: Normal. No hemorrhage. Unremarkable white matter. No mass effect. Cerebral ventricles: No ventriculomegaly. Paranasal sinuses: Visualized sinuses are unremarkable. No fluid levels. Mastoid air cells: Visualized mastoid air cells are well aerated. Bones/joints: Unremarkable. No acute fracture. Soft tissues: Unremarkable. CT/CT head wo con* [id number] IMPRESSION: No acute intracranial abnormality.
--- NOTE | 2023-03-15 21:53 | ECG_ITS ---
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 Measurements Intervals [place] Rate: 104 P: 38 NH: 172 QRS: 121 QRSD: 106 T: 19 QT: 336 QTc: 443 Interpretive Statements SINUS TACHYCARDIA POSSIBLE RIGHT VENTRICULAR HYPERTROPHY [SOME/ALL OF: PROMINENT R IN V1, LATE TRANSITION, RAD, JUAN, SSS] ANTEROSEPTAL MYOCARDIAL INFARCTION , OF INDETERMINATE AGE [40+ ms Q WAVE IN V1-V4] Compared to ECG 01/16/2023 09:17:51 Myocardial infarct finding now present Sinus rhythm no longer present Electronically Signed On 03-16-2023 11:58:32 CDT by Skinny Talbert M.D. [id number]
[2023-03-15 22:03] LABS: Base Excess VBG 3.7 mmol/L (-3.0-3.0); Blood Gas Allen Test Pos; Blood Gas Sample Type Venous; HCO3 VBG 29.4 mmol/L (24-28); PCO2 VBG 46.4 mmHg (41-51); Venous Blood Gas Hematocrit 53.9 % (42-52); pH VBG 7.41 (7.32-7.42)
[2023-03-15 22:04] LABS: Basophils # 0.1 10^3/uL (0.0-0.1); Basophils % 0.6 %; Blood Gas Sample Site Not specified; Eosinophils # 0.2 10^3/uL (0.0-0.8); Hematocrit 52.5 % (42.0-52.0); Hemoglobin 16.9 g/dL (11.7-16.6); Lymphocytes # 3.9 10^3/uL (0.8-4.8); Lymphocytes % 49.2 %; Mean Corpuscular HGB Conc 32.2 g/dL (30.0-36.0); Mean Corpuscular Hemoglobin 28.5 pg (28.0-34.0); Mean Corpuscular Volume 88.7 fl (80-94); Mean Platelet Volume 10.2 fL (7.4-10.4); Monocytes # 0.5 10^3/uL (0.2-0.9); Monocytes % 6.3 %; Neutrophils % 41.6 %; Nucleated Red Blood Cells % 0 %; Platelet Count 230 10^3/cmm (130-400); Red Blood Count 5.92 10^6/uL (4.1-5.3); Red Cell Distribution Width 13.9 % (12.1-15.1); White Blood Count 7.9 10^3/uL (4.0-10.0)
[2023-03-15 22:08] LABS: Glucose Point of Care 285 mg/dL (70-110)
--- NOTE | 2023-03-15 22:10 | PC.NURSE ---
Rapid called on patient, found unresponsive facedown in his room. His roommate notified staff. Patient rolled onto his back, sternal rub no response, VS taken, 195/119, 122, RR 12 92% on RA. Patient became responsive after more sternal rubbing, was able to ambulate with assistance to his bed, very diaphoretic. Dr Morales on telehealth monitor, EKG done, orthostatics done. Patient transferred to CSU and transported with and Nneka RILEY to CT prior to going to room 101.
[2023-03-15 22:22] LABS: Troponin(5th) Baseline 6 ng/L (0-15)
[2023-03-15 23:08] LABS: Alanine Aminotransferase 41 U/L (0-41); Albumin Level 4.2 g/dL (3.5-5.2); Alkaline Phosphatase 89 U/L (40-130); Anion Gap 19.6 (5-19); Aspartate Amino Transferase 18 U/L (0-40); Blood Urea Nitrogen 21 mg/dL (6-20); Calcium 8.8 mg/dL (8.5-10.5); Carbon Dioxide 25 mmol/L (22-29); Chloride 101 mmol/L (98-107); Globulin 2.2 g/dL (1.3-4.6); Glomerular Filtration Rate 81.6 mL/min (90-130); Glucose 293 mg/dL (65-115); Magnesium 1.9 mg/dL (1.7-2.3); Osmolality Calculated 306 mOsm/kg (285-295); Potassium 4.6 mmol/L (3.5-5.1); Sodium 141 mmol/L (136-145); Total Bilirubin 0.2 mg/dL (0.15-1.2); Total Protein 6.4 g/dL (6.6-8.7)
[2023-03-15] MEDS: sodium chloride 0.9% 1,000 ML 999 ML IV (23:11)
[2023-03-15] MEDS: ondansetron 4 MG Tablet PO (23:12)
[2023-03-15] MEDS: trazodone 50 mg Tablet PO (23:12)
[2023-03-15 23:18] VITALS: BP 113/79; PULSE 103; RESP 18; O2SAT 92
[2023-03-15] MEDS: sodium chloride 0.9% 1,000 ML 125 ML IV (23:18)
[2023-03-15 23:30] VITALS: BP 115/77; PULSE 101; RESP 18; O2SAT 93
[2023-03-15 23:45] VITALS: BP 110/81; PULSE 93; RESP 21; O2SAT 93
[2023-03-15 23:47] VITALS: BMI 38.6
--- NOTE | 2023-03-15 23:53 | ECG_ITS ---
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 Measurements Intervals [place] Rate: 110 P: 61 NV: 192 QRS: 74 QRSD: 111 T: 46 QT: 321 QTc: 435 Interpretive Statements SINUS TACHYCARDIA SEPTAL MYOCARDIAL INFARCTION , PROBABLY OLD [40+ ms Q WAVE IN V1/V2] Compared to ECG 01/16/2023 09:17:51 Myocardial infarct finding now present Sinus rhythm no longer present Electronically Signed On 03-16-2023 12:01:38 CDT by Skinny Talbert M.D. [id number] f
[2023-03-16] VITALS (24 sets, daily range): BP systolic 119–174; BP diastolic 79–92; PULSE 66–106; RESP 10–22; TEMP 36.6–37.1; O2SAT 90–98
[2023-03-16] MEDS: diphenhydrAMINE 50 mg/mL SDV 1mL IM ×2 (00:05→13:54)
[2023-03-16 00:27] LABS: Troponin 5 2HR Delta 0 ABS# (0-10)
--- NOTE | 2023-03-16 01:27 | ECG_ITS ---
[facility] Test Date: 2023-03-16 Pat Name: Zaire Nassar Department: Room: 101 Gender: Male Formulator: : 1980 Requested By: Beth Morales Order Number: [id number] Drew MD: Skinny Talbert M.D. Measurements Intervals [place] Rate: 83 P: 44 ND: 205 QRS: 60 QRSD: 112 T: 40 QT: 369 QTc: 435 Interpretive Statements SINUS RHYTHM LOW QRS VOLTAGE IN PRECORDIAL LEADS [QRS DEFLECTION < 1.0 mV IN CHEST LEADS] ANTEROSEPTAL MYOCARDIAL INFARCTION , OF INDETERMINATE AGE [40+ ms Q WAVE IN V1-V4] Compared to ECG 03/15/2023 23:08:08 Low QRS voltage now present Sinus tachycardia no longer present Myocardial infarct finding still present Electronically Signed On 03-16-2023 12:01:32 CDT by Skinny Talbert M.D. [id number]
[2023-03-16 05:05] LABS: Troponin 5 6HR Delta 0 ng/L (0-12)
[2023-03-16 05:19] LABS: Valproic Acid Level 57.9 ug/mL (50-100)
[2023-03-16 06:23] LABS: Glucose Point of Care 253 mg/dL (70-110)
[2023-03-16] MEDS: sodium chloride 0.9% 1,000 ML 125 ML IV ×3 (07:49→23:02)
[2023-03-16] MEDS: insulin lispro 100 unit/1 mL SUBCUT ×4 (07:50→20:39)
[2023-03-16] MEDS: divalproex ER 500 mg Tablet (24H) 2000 MG PO (07:50)
[2023-03-16 08:00] LABS: Glucose Point of Care 282 mg/dL (70-110)
[2023-03-16] MEDS: ARIPiprazole 10 mg Tablet 5 MG PO (08:04)
[2023-03-16] MEDS: apixaban 5 mg Tablet PO ×2 (08:06→17:20)
[2023-03-16] MEDS: sertraline 100 mg Tablet 200 MG PO (08:06)
[2023-03-16] MEDS: gabapentin 300 mg Capsule PO ×2 (08:06→17:20)
[2023-03-16] MEDS: aspirin 81 mg EC Tablet PO (08:06)
[2023-03-16] MEDS: benztropine 1 mg Tablet PO (08:07)
[2023-03-16] MEDS: ondansetron 4 MG Tablet PO ×2 (08:27→17:20)
[2023-03-16 11:21] LABS: Glucose Point of Care 257 mg/dL (70-110)
[2023-03-16] MEDS: acetaminophen 325 mg Tablet 650 MG PO (13:53)
--- NOTE | 2023-03-16 14:33 | P.NPUPN_ITS ---
Subjective NPU Subjective: Patient is a 42-year-old white male with intellectual disability and intermittent explosive disorder admitted with worsening depression and suicidal ideation. The patient was admitted to the crisis stress unit as he had an episode of passing out with elevated blood glucose and concerns about decreasing O2 saturation. He had continue to require continuous oxygen when evaluated at the crisis stabilization unit as it room air he had a decrease in O2 saturation. He had continue to report feeling depressed. He had reported that he had continued to feel suicidal. He had stated that he had been very concerned about his medical problems and stated that he wanted to feel breath better physically before returning back to the psychiatric unit. He had reported continued past trauma leading to increased anger problems agitation and flashbacks regarding past trauma. He had reported frequent nightmares. He had reported difficulties with processing these things and endorsed some continued feelings of hopelessness. Mental Status Exam MSE Comments: This is an obese versus morbidly white male in hospital scrubs with adequate grooming and eye contact. No abnormal involuntary motor movements were appreciated. He was cooperative with exam and in moderate distress. Speech was slightly decreased rate and volume and childlike. Mood described as sad. His affect was flat and restricted in range. His thought process was linear and organized. Thought content: The patient endorsed suicidal thoughts with no active plan today. He denied any homicidal ideation. There were no delusions reported or noted, he denied any auditory or visual hallucinations. His attention span was fair. His memory was mostly reliable but none were formally tested. He is alert and oriented x3. Insight and judgment are poor. His impulse control is poor. Intellectual ability appears commensurate with mild cognitive impairment. Vitals/I&O/Wt Last Vital Signs Temp 98.8 F 03/16/23 09:00 Pulse 87 03/16/23 11:00 Resp 21 H 03/16/23 11:00 BP 142/87 03/16/23 12:00 Pulse Ox 92 03/16/23 11:00 O2 Del Method Nasal Cannula 03/16/23 10:05 O2 Flow Rate 2 03/16/23 10:05 03/15/23 03/16/23 03/16/23 22:59 06:59 14:59 Intake Total 356.55 / 356.55 1000 / 1000 Output Total 0 / 0 1850 / 1850 Balance 356.55 / 356.55 -850 / -850 Weight last 48 hrs Weight 132.903 kg Data NPU 05/11/23 21:58 03/15/23 21:58 A&P Assessment and plan (1) Intermittent explosive disorder in adult: (2) Suicidal ideation: (3) Bipolar 1 disorder: (4) Mild intellectual disability: Plan This is a 42-year-old white male with a long history of intellectual disability and impulse control issues presents from the [facility] with a guardian after a reported outburst without current issues. 1.? ? Engage? patient in individual ,milieu, and group therapy ?2. ? Tapering Zoloft (with plan for change in antidepressant), stop prazosin, Depakote 2000 mg daily,-Continue abilify 5mg to target depression. Holding Valium currently. ?3. ? TO-15 minute checks on the unit. ? 4. Attempt to gather collateral information performed chart review. Involuntary Hold Information 96 Hour Hold: 96 Hour Involuntary Admission: No 96 Hour Hold Ending Date: 01/18/23 96 Hour Hold Ending Time: 21:38 Attestations NPU Medical Necessity Statement*: The patient hospitalization is medically necessary and deemed to be the clinically appropriate intervention at this time. We will monitor and make medication changes as indicated he will be in the hospital with his likely length of stay being 5-7days. Coding Level of Care Code Acute Code for [facility] Fwd Diagnoses Intermittent explosive disorder in adult F63.81 Suicidal ideation R45.851 Bipolar 1 disorder F31.9 Mild intellectual disability F70
--- NOTE | 2023-03-16 14:42 | PC.SOCIAL ---
IMM update IMM update left for Tia. Initialled, dated, timed, and placed in chart.
[2023-03-16] MEDS: lidocaine 2% viscous 15 ML, aluminum-mag hydrox-simethicon 30 ML, sucralfate oral liq 1 GM PO (15:17)
--- NOTE | 2023-03-16 16:21 | PM.PN ---
Subjective Subjective: Patient reports he is feeling slightly better. He does continue have upset stomach and nausea. Denies fevers or chills. Sitter at bedside. He is eager to return to NPU when ready. Medications: Reviewed: Yes Vitals/I&O/Wt Last Vital Signs Temp 98.8 F 03/16/23 09:00 Pulse 87 03/16/23 11:00 Resp 21 H 03/16/23 11:00 BP 142/87 03/16/23 12:00 Pulse Ox 92 03/16/23 11:00 O2 Del Method Nasal Cannula 03/16/23 10:05 O2 Flow Rate 2 03/16/23 10:05 03/16/23 03/16/23 03/16/23 06:59 14:59 22:59 Intake Total 356.55 / 356.55 1000 / 1000 943.75 / 1943.75 Output Total 0 / 0 1850 / 1850 Balance 356.55 / 356.55 -850 / -850 943.75 / 93.75 Weight last 48 hrs Weight 132.903 kg Physical Exam Narrative: General: Patient is awake. Appears fatigued. Head: Normocephalic. Atraumatic. EOM intact. Neck: No JVD. Cardiovascular: RRR. No gallops. No murmurs. No peripheral edema. Lungs: Clear to auscultation, no use of accessory muscles, no crackles or wheezes. Skin: No jaundice. No rashes. Abdomen: Normal bowel sounds, abdomen soft and nontender. Genito Urinary: Genital exam not performed since complaints not related. Rectal: Rectal exam not performed since no symptoms indicated blood loss. Extremities: No cyanosis or clubbing. Musculoskeletal: No swollen or erythematous joints. Neurological: Moves all 4 extremities. No myoclonus. Data 03/15/23 21:58 03/15/23 21:58 A&P Assessment and plan (1) Unresponsive: Patient denies any further episodes of syncope or presyncope since last night Does endorse history of prior syncope which she relates to hypoglycemia Patient was not hypoglycemic last night with event Continue telemetry, reviewed no significant arrhythmias Head CT reviewed, negative for acute findings Still attempting to obtain Holter results Strongly suspect vasovagal syncope versus polypharmacy Continue normal saline Continue to monitor (2) Nausea: Antiemetics as needed, trial a GI cocktail (3) Pulmonary embolism: Continue apixaban (4) Hypertension: Blood pressure is uncontrolled Continue to monitor closely (5) Hyperlipidemia: Continue statin (6) Diabetes: Home oral medications on hold (7) Mild intellectual disability: Mentation likely at baseline (8) Depression: Psychiatry following, appreciate recommendations Plan DVT prophylaxis: Apixaban CODE STATUS: Full code Attestations Medical Necessity Statement*: Patient presents from psychiatry unit with episode of unresponsiveness of unclear etiology with persistent nausea this morning requiring ongoing hospitalization for IV antiemetics, IV fluids, telemetry monitoring, and supportive care. Coding Level of Care Code Acute Code for g Fwd Diagnoses Unresponsive R41.89 Nausea R11.0 Pulmonary embolism I26.99 Hypertension I10 Hyperlipidemia E78.5 Diabetes E11.9 Mild intellectual disability F70 Depression F32.A
[2023-03-16 17:18] LABS: Glucose Point of Care 221 mg/dL (70-110)
[2023-03-16] MEDS: sennosides-docusate Tablet 1 TAB PO (20:39)
[2023-03-16] MEDS: atorvastatin 40 mg Tablet PO (20:39)
[2023-03-16 20:50] LABS: Glucose Point of Care 281 mg/dL (70-110)
--- NOTE | 2023-03-16 22:24 | PC.NURSE ---
pt is complaining of vomiting, no vomit noted in trash can, pt is refusing all nausea medications stating They do not work. pt is requesting a clear liquid diet. Dr. Morales notified and gave orders for a Clear liquid diet. pt notified of new orders and states understanding.
[2023-03-16] MEDS: trazodone 50 mg Tablet PO (23:02)
[2023-03-17] VITALS (30 sets, daily range): BP systolic 122–208; BP diastolic 75–125; PULSE 65–101; RESP 5–27; TEMP 36.5–37; O2SAT 86–97
[2023-03-17] MEDS: sodium chloride 0.9% 1,000 ML 125 ML IV ×2 (06:19→14:09)
[2023-03-17 06:33] LABS: Glucose Point of Care 187 mg/dL (70-110)
[2023-03-17] MEDS: aspirin 81 mg EC Tablet PO (08:52)
[2023-03-17] MEDS: insulin lispro 100 unit/1 mL SUBCUT ×4 (08:52→21:29)
[2023-03-17] MEDS: sertraline 100 mg Tablet 150 MG PO (08:53)
[2023-03-17] MEDS: gabapentin 300 mg Capsule PO ×2 (08:53→17:07)
[2023-03-17] MEDS: apixaban 5 mg Tablet PO ×2 (08:53→17:07)
[2023-03-17] MEDS: ARIPiprazole 10 mg Tablet 5 MG PO (08:53)
[2023-03-17] MEDS: sennosides-docusate Tablet 1 TAB PO ×2 (08:53→17:07)
[2023-03-17] MEDS: divalproex ER 500 mg Tablet (24H) 2000 MG PO (08:54)
[2023-03-17 11:14] LABS: Glucose Point of Care 187 mg/dL (70-110)
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
[2023-03-17] MEDS: ondansetron 4 MG Tablet PO (14:01)
[2023-03-17] MEDS: OLANZapine 5 mg ODT PO (15:16)
[2023-03-17 16:30] LABS: Glucose Point of Care 241 mg/dL (70-110)
--- NOTE | 2023-03-17 18:17 | PM.PN ---
Subjective Subjective: Patient reports upset stomach but seems to be eating just fine. Denies other new complaints. Denies fevers, chills, nausea or emesis. Medications: Reviewed: Yes Vitals/I&O/Wt Last Vital Signs Temp 97.7 F 03/17/23 16:00 Pulse 76 03/17/23 16:00 Resp 18 03/17/23 16:00 BP 173/107 03/17/23 16:00 Pulse Ox 97 03/17/23 16:00 O2 Del Method Nasal Cannula 03/17/23 16:00 O2 Flow Rate 1 03/17/23 16:00 03/17/23 03/17/23 03/17/23 06:59 14:59 22:59 Intake Total 1868.750 / 4756.500 1099.167 / 1099.167 Output Total 1000 / 1000 850 / 1850 Balance 1868.750 / 2306.500 99.167 / 99.167 -850 / -750.833 Weight last 48 hrs Weight 132.903 kg Physical Exam Narrative: General: Patient is awake. Appears fatigued. Laying in bed. Head: Normocephalic. Atraumatic. EOM intact. Neck: No JVD. Cardiovascular: RRR. No gallops. No murmurs. No peripheral edema. Lungs: Clear to auscultation, no use of accessory muscles, no crackles or wheezes. Skin: No jaundice. No rashes. Abdomen: Normal bowel sounds, abdomen soft and nontender. Extremities: No cyanosis or clubbing. Musculoskeletal: No swollen or erythematous joints. Neurological: Moves all 4 extremities. No myoclonus. Data 03/15/23 21:58 03/15/23 21:58 A&P Assessment and plan (1) Unresponsive: Resolved Anticipate transfer to NPU in AM (2) Nausea: Antiemetics as needed (3) Pulmonary embolism: Continue apixaban (4) Hypertension: Continue to monitor closely (5) Hyperlipidemia: Continue statin (6) Diabetes: Home oral medications on hold (7) Mild intellectual disability: Mentation likely at baseline (8) Depression: Psychiatry following, appreciate recommendations Plan DVT prophylaxis: Apixaban CODE STATUS: Full code Attestations Medical Necessity Statement*: Patient requires ongoing hospitalization for sitter, telemetry and supportive care. Coding Level of Care Code Acute Code for Chg Fwd Diagnoses Unresponsive R41.89 Nausea R11.0 Pulmonary embolism I26.99 Hypertension I10 Hyperlipidemia E78.5 Diabetes E11.9 Mild intellectual disability F70 Depression F32.A
--- NOTE | 2023-03-17 20:28 | CTR_ITS ---
PROCEDURE INFORMATION: Exam: CTA Head With Contrast, Arteriography Exam date and time: 03/17/2023 8:49 PM Age: 42 years old Clinical indication: Dizziness and giddiness and drowsiness or somnolence; Patient HX: Unresponsive episodes with dizziness. ; Additional info: Dizziness, unresponsive TECHNIQUE: Imaging protocol: Computed tomographic angiography of the head with contrast. Exam focused on the arteries. 3D rendering (Not supervised by radiologist): MIP and/or 3D reconstructed images were created by the technologist. Radiation optimization: All CT scans at this facility use at least one of these dose optimization techniques: automated exposure control; mA and/or kV adjustment per patient size (includes targeted exams where dose is matched to clinical indication); or iterative reconstruction. Contrast material: OMNI 350; Contrast volume: 100 ml; Contrast route: INTRAVENOUS (IV); REPORTING DATA: Count of CT and Cardiac NM exams in prior 12 months: This patient has received 7 known CTs and 0 known cardiac nuclear medicine studies in the 12 months prior to the current study. COMPARISON: CT head wo con* [id number] 03/15/2023 10:01 PM RADIATION DOSE METRICS: Total DLP (mGy-cm): 1247.77 FINDINGS: ANTERIOR CIRCULATION: Right internal carotid artery: Calcified plaque in the right cavernous ICA without significant stenosis. Right middle cerebral artery: No occlusion or significant stenosis. No aneurysm. Right anterior cerebral artery: No occlusion or significant stenosis. No aneurysm. Anterior communicating artery: Patent anterior communicating artery. Left internal carotid artery: Calcified plaque in the left cavernous ICA without significant stenosis. Left middle cerebral artery: No occlusion or significant stenosis. No aneurysm. Left anterior cerebral artery: No occlusion or significant stenosis. No aneurysm. POSTERIOR CIRCULATION: Right vertebral artery: No occlusion or significant stenosis. No aneurysm. Left vertebral artery: No occlusion or significant stenosis. No aneurysm. Basilar artery: No occlusion or significant stenosis. No aneurysm. Right posterior cerebral artery: No occlusion or significant stenosis. No aneurysm. Left posterior cerebral artery: No occlusion or significant stenosis. No aneurysm. Brain: No definite mass, mass effect, or midline shift. Cerebral ventricles: No ventriculomegaly. Bones/joints: Unremarkable. No acute fracture. Soft tissues: Unremarkable. Other findings: Codominant vertebral arteries. PROCEDURE INFORMATION: Exam: CTA Neck With Contrast Exam date and time: 03/17/2023 8:49 PM Age: 42 years old Clinical indication: Dizziness and giddiness and drowsiness or somnolence; Patient HX: Unresponsive episodes with dizziness. ; Additional info: Dizziness, unresponsive TECHNIQUE: Imaging protocol: Computed tomographic angiography of the neck with contrast. 3D rendering (Not supervised by radiologist): MIP and/or 3D reconstructed images were created by the technologist. Radiation optimization: All CT scans at this facility use at least one of these dose optimization techniques: automated exposure control; mA and/or kV adjustment per patient size (includes targeted exams where dose is matched to clinical indication); or iterative reconstruction. Contrast material: OMNI 350; Contrast volume: 100 ml; Contrast route: INTRAVENOUS (IV); REPORTING DATA: Count of CT and Cardiac NM exams in prior 12 months: This patient has received 7 known CTs and 0 known cardiac nuclear medicine studies in the 12 months prior to the current study. COMPARISON: CT head wo con* [id number] 03/15/2023 10:01 PM RADIATION DOSE METRICS: Total DLP (mGy-cm): 1247.77 FINDINGS: Right common carotid artery: No stenosis. No dissection or occlusion. Right internal carotid artery: No stenosis of the extracranial segment. No dissection or occlusion. Right external carotid artery: No occlusion or stenosis of the origin. Left common carotid artery: No stenosis. No dissection or occlusion. Left internal carotid artery: Mild spiral tortuosity of the upper left cervical ICA. Left external carotid artery: No occlusion or stenosis of the origin. Right vertebral artery: No stenosis. No dissection or occlusion. Left vertebral artery: No stenosis. No dissection or occlusion. Dental: Examination is limited secondary to metallic artifact from dental fillings and/or dental hardware. Soft tissues: Normal. No significant soft tissue swelling. Bones/joints: Mild dextroscoliosis. Other findings: Examination is limited secondary to motion artifact. Codominant vertebral arteries. No ICA stenosis by NASCET/SRU criteria. CT/CT angio headneck* [id number] IMPRESSION: No large vessel occlusion. IMPRESSION: 1. Codominant vertebral arteries. 2. No ICA stenosis by NASCET/SRU criteria. REFERENCES: NASCET CRITERIA. The degree of stenosis in the cervical segment of the internal carotid artery is based on NASCET criteria. Normal is no stenosis. Mild is less than 50% stenosis. Moderate is 50-69% stenosis. Severe is 70% to 99% stenosis. Total occlusion is no detectable patent lumen.
[2023-03-17] MEDS: iohexol 350 mg/mL 500 mL Btl (per mL) IV (21:01)
[2023-03-17] MEDS: hyDROXYzine 25 mg Capsule 50 MG PO (21:25)
[2023-03-17] MEDS: trazodone 50 mg Tablet PO (21:25)
[2023-03-17] MEDS: atorvastatin 40 mg Tablet PO (21:25)
[2023-03-17 21:40] LABS: Glucose Point of Care 311 mg/dL (70-110)
[2023-03-18] VITALS (19 sets, daily range): BP systolic 135–183; BP diastolic 84–132; PULSE 67–100; RESP 12–24; TEMP 36.7; O2SAT 92–97
[2023-03-18] MEDS: hyDRALAzine 20 mg/mL INJ 1 mL 5 MG IVP (00:52)
--- NOTE | 2023-03-18 01:22 | PM.MISC ---
Miscellaneous Note Purpose of Documentation: Patient again became unresponsive today in the evening I was called by the RN around 8 PM. Patient laying flat in bed when he became unresponsive. Did not lose pulse. Respirations okay saturating okay 100% on room air. Blood pressure elevated 180 systolic. It took 40 seconds for patient to be awake and alert again. When patient wakes up he becomes very agitated and combative. No shaking or seizure activity noted. CTA head and neck done which was unremarkable. Shows codominant vertebral arteries no internal carotid artery stenosis present. This time patient was not standing and fell to the floor he was already laying in bed. He had 3 of these episodes this evening. Patient did complain of some blurry vision. After CT head and neck was done he was given 5 of IV hydralazine to bring down the blood pressure. At this point blood pressure is stable. I do suspect that there could be a psychogenic pseudoseizure component to these episodes as vitally patient remained stable. There is no bradycardia or arrhythmia noted on telemetry during this episode. Consider neurology consult. I believe patient would benefit from video EEG monitoring. I have a high clinical suspicion of psychogenic seizure at this point.
[2023-03-18] MEDS: sodium chloride 0.9% 1,000 ML 125 ML IV ×2 (03:03→12:48)
[2023-03-18 06:54] LABS: Glucose Point of Care 293 mg/dL (70-110)
[2023-03-18 07:46] LABS: Glucose Point of Care 273 mg/dL (70-110)
[2023-03-18] MEDS: insulin lispro 100 unit/1 mL SUBCUT ×4 (08:34→20:50)
[2023-03-18] MEDS: sennosides-docusate Tablet 1 TAB PO ×2 (08:35→17:53)
[2023-03-18] MEDS: gabapentin 300 mg Capsule PO ×2 (08:35→17:53)
[2023-03-18] MEDS: apixaban 5 mg Tablet PO ×2 (08:35→17:53)
[2023-03-18] MEDS: aspirin 81 mg EC Tablet PO (08:35)
[2023-03-18] MEDS: sertraline 100 mg Tablet PO (08:35)
[2023-03-18] MEDS: divalproex ER 500 mg Tablet (24H) 2000 MG PO (08:35)
--- NOTE | 2023-03-18 09:33 | PC.SOCIAL ---
IMM update CM attempted to contact Guardian June to update IMM, number available isn't a working number. CM called Janae and had to leave a VM. Provided call back number if she had any questions. Copy Pg 2 placed at bedside. Initialled, dated, timed, and placed in chart.
[2023-03-18] MEDS: ARIPiprazole 10 mg Tablet 5 MG PO (10:22)
[2023-03-18 12:14] LABS: Glucose Point of Care 263 mg/dL (70-110)
--- NOTE | 2023-03-18 13:23 | PM.PN ---
Subjective Subjective: Patient with additional episodes of unresponsiveness overnight. He reports upset stomach this morning. Discussed no acute findings to correlate on telemetry. He denies other new complaints. Denies fevers, chills, nausea or emesis. Medications: Reviewed: Yes Vitals/I&O/Wt Last Vital Signs Temp 97.7 F 03/17/23 16:00 Pulse 69 03/18/23 11:41 Resp 16 03/18/23 10:37 BP 145/100 03/18/23 11:41 Pulse Ox 96 03/18/23 11:41 O2 Del Method Nasal Cannula 03/18/23 11:41 O2 Flow Rate 2 03/18/23 11:41 03/17/23 03/18/23 03/18/23 22:59 06:59 14:59 Intake Total 1480 / 2579.167 1000 / 3579.167 1480 / 1480 Output Total 2200 / 3200 1400 / 4600 1600 / 1600 Balance -720 / -620.833 -400 / -1020.833 -120 / -120 Physical Exam Narrative: General: Patient is awake. Laying in bed. Appears chronically ill. Head: Normocephalic. Atraumatic. EOM intact. Neck: No JVD. Cardiovascular: RRR. No gallops. No murmurs. No peripheral edema. Lungs: Clear to auscultation, no use of accessory muscles, no crackles or wheezes. Skin: No jaundice. No rashes. Abdomen: Normal bowel sounds, abdomen soft and nontender. Extremities: No cyanosis or clubbing. Musculoskeletal: No swollen or erythematous joints. Neurological: Moves all 4 extremities. No myoclonus. Data 03/15/23 21:58 03/15/23 21:58 A&P Assessment and plan (1) Unresponsive: Telemetry reviewed, recurrent syncopal spells do not correlate to any telemetry finding, unlikely cardiac Additional head imaging overnight reviewed, largely unremarkable Presentation c/w psychogenic seizures, as such, there is a high probability these events will continue while inpatient No further medical work up warranted at this time If further work up is required, recommend neurology evaluation If additional episode, recommend NPO status until episodes resolve for at least 24-48 hours to ensure no aspiration (2) Depression: Psychiatry following, appreciate recommendations Transfer to NPU (3) Nausea: Antiemetics as needed (4) Pulmonary embolism: Continue apixaban (5) Hypertension: Continue to monitor closely (6) Hyperlipidemia: Continue statin (7) Diabetes: Home oral medications on hold (8) Mild intellectual disability: Mentation at baseline Plan DVT prophylaxis: Apixaban CODE STATUS: Full code Attestations Medical Necessity Statement*: Patient requires ongoing hospitalization for psychiatric care and supportive care. Coding Level of Care Code Acute Code for Chg Fwd Diagnoses Unresponsive R41.89 Depression F32.A Nausea R11.0 Pulmonary embolism I26.99 Hypertension I10 Hyperlipidemia E78.5 Diabetes E11.9 Mild intellectual disability F70
--- NOTE | 2023-03-18 14:19 | PC.NURSE ---
PATIENT ARRIVED ON FLOOR AT 1353
--- NOTE | 2023-03-18 16:19 | W.PM.NPUPNS ---
Subjective NPU Subjective: Patient is a 42-year-old white male with intellectual disability and intermittent explosive disorder admitted with worsening depression and suicidal ideation. Patient was transferred back to the NPU from the crisis unit once stabilized medically. He reported feeling better physically. He continued to endorse depressed mood and feeling anxious. The patient did appeared to struggle with sleep with likely potential for the patient requiring oxygen at night to help with his periods of likely apnea when sleeping. He continued to endorse chronic sadness and reported having few friends.. Mental Status Exam MSE Comments: This is an obese versus morbidly white male in hospital scrubs with adequate grooming and eye contact. No abnormal involuntary motor movements were appreciated. He was cooperative with exam and in mild to moderate distress. Speech was slightly decreased rate and volume and childlike. Mood remained depressed. His affect remained flat and restricted in range. His thought process was linear and organized. Thought content: The patient endorsed no suicidal thoughts with no active plan today. He denied any homicidal ideation. There were no delusions reported or noted, he denied any auditory or visual hallucinations. His attention span was fair. His memory was mostly reliable but none were formally tested. He is alert and oriented x3. Insight and judgment are poor. His impulse control is poor. Intellectual ability appears commensurate with mild cognitive impairment. Vitals/I&O/Wt Last Vital Signs Temp 97.7 F 03/17/23 16:00 Pulse 69 03/18/23 11:41 Resp 16 03/18/23 10:37 BP 145/100 03/18/23 11:41 Pulse Ox 96 03/18/23 11:41 O2 Del Method Nasal Cannula 03/18/23 11:41 O2 Flow Rate 2 03/18/23 11:41 03/18/23 03/18/23 03/18/23 06:59 14:59 22:59 Intake Total 1000 / 3579.167 1480 / 1480 Output Total 1400 / 4600 1600 / 1600 Balance -400 / -1020.833 -120 / -120 Data NPU 03/15/23 21:58 03/15/23 21:58 A&P Assessment and plan (1) Intermittent explosive disorder in adult: (2) Suicidal ideation: (3) Bipolar 1 disorder: (4) Mild intellectual disability: Plan This is a 42-year-old white male with a long history of intellectual disability and impulse control issues presents from the [facility] with a guardian after a reported outburst without current issues. 1.? ? Engage? patient in individual ,milieu, and group therapy ?2. ? Continue taper with reduction in Zoloft to 50 mg and initiate Effexor at 37.5 mg daily to target depression., Depakote 2000 mg daily,-Continue abilify 5mg to target depression. Restart Valium at 5 mg 3 times a day. ?3. ? TO-15 minute checks on the unit. ?4. Attempt to gather collateral information performed chart review. Involuntary Hold Information 96 Hour Hold: 96 Hour Involuntary Admission: No 96 Hour Hold Ending Date: 01/18/23 96 Hour Hold Ending Time: 21:38 Attestations NPU Medical Necessity Statement*: The patient hospitalization is medically necessary and deemed to be the clinically appropriate intervention at this time. We will monitor and make medication changes as indicated as he is likely to stay on the n.p.o. will be 5 to 7 days. Coding Level of Care Code Acute Code for [facility] Fwd Diagnoses Intermittent explosive disorder in adult F63.81 Suicidal ideation R45.851 Bipolar 1 disorder F31.9 Mild intellectual disability F70
[2023-03-18] MEDS: OLANZapine 5 mg ODT PO (17:53)
[2023-03-18 18:02] LABS: Glucose Point of Care 395 mg/dL (70-110)
--- NOTE | 2023-03-18 20:12 | ECG_ITS ---
[facility] Test Date: 2023-03-18 Pat Name: Zaire Nassar Department: Room: 151 Gender: Male Primary Clinician: : 1980 Requested By: Abdile Yap Order Number: [id number] Drew MD: Yina Lugo M.D. Measurements Intervals [place] Rate: 85 P: 51 [place]: 197 QRS: 15 QRSD: 105 T: 30 QT: 343 QTc: 409 Interpretive Statements SINUS RHYTHM ANTEROSEPTAL MYOCARDIAL INFARCTION , OF INDETERMINATE AGE [40+ ms Q WAVE IN V1-V4] Compared to ECG 03/16/2023 01:27:35 No significant changes Electronically Signed On 03-18-2023 21:16:42 CDT by Yina Lugo M.D. [id number]
[2023-03-18 20:15] LABS: Glucose Point of Care 353 mg/dL (70-110)
--- NOTE | 2023-03-18 20:19 | PM.EVENT ---
Event Note Event Note: Called to bedside via rapid response called overhead to the MPU. This patient had been up to the bathroom, and was carrying fruit punch back from the bathroom when he reportedly fell and/or passed out. On my arrival, the patient was supine in the floor with eyes shut. He was breathing, and had a pulse. Heart rate was 115. Saturations 95% on room air. Respirations were regular. Lung sounds were clear. Eyes were shut. He did not awaken with sternal rub initially. He resisted with forced eyelid opening. Hand fell to the side when picked up over his head. A few seconds later, the patient awoke suddenly, jumped up to his feet, and acted as if he did not know where he was for a total of about 20 seconds. He sat down on the bed. He did not complain of any pain. He was mildly confused. During the syncopal episode, there was no evidence of convulsion. He did not lose control of his bladder or bowel function. He did not bite his tongue. This is evidently happened a couple of times prior. EKG was performed and showed a sinus rhythm with a rate of 80, and a right anterior fascicular block. He did not complain of chest pain. Blood sugar was 353. Spoke with psychiatry. As there was no apparent injury, or ongoing problem, not felt necessary for further work-up or transfer to medical floor at this time. They will watch the patient closely, particularly with change in position and such.
[2023-03-18] MEDS: ibuprofen 600 mg Tablet PO (20:20)
[2023-03-18] MEDS: atorvastatin 40 mg Tablet PO (20:26)
--- NOTE | 2023-03-18 21:53 | PC.NURSE ---
Roommate notified staff patient had fallen against door. Found face down unresponsive. Rapid response called. Rolled pt to back. Sternal rub with response. Dr. Garcia in room. Pt breathing with pulse. He suddenly awoke and jumped to his feet. Vitals signs and EKG performed. Results in chart.
[2023-03-19 06:29] VITALS: RESP 20
--- NOTE | 2023-03-19 06:29 | PC.NURSE ---
resp 20 pt sleeping
[2023-03-19 07:53] LABS: Glucose Point of Care 216 mg/dL (70-110)
[2023-03-19] MEDS: divalproex ER 500 mg Tablet (24H) 2000 MG PO (08:08)
--- NOTE | 2023-03-19 08:14 | PC.NURSE ---
When doing morning assessment, patient stated that he had thoughts of suicide on occasion. The reason for the thoughts are because of his home situation and because of his father. Patient said that he would try to commit suicide after leaving here. This nurse had agree to verbal safety contract. Will notify doctor of patient's statements.
[2023-03-19] MEDS: insulin lispro 100 unit/1 mL SUBCUT ×4 (08:45→21:16)
[2023-03-19] MEDS: ARIPiprazole 10 mg Tablet 5 MG PO (08:57)
[2023-03-19] MEDS: sennosides-docusate Tablet 1 TAB PO ×2 (08:57→18:00)
[2023-03-19] MEDS: aspirin 81 mg EC Tablet PO (08:57)
[2023-03-19] MEDS: venlafaxine ER (24HR) 37.5 mg Capsule PO (08:57)
[2023-03-19] MEDS: apixaban 5 mg Tablet PO ×2 (08:57→18:00)
[2023-03-19] MEDS: sertraline 100 mg Tablet 50 MG PO (08:58)
[2023-03-19] MEDS: gabapentin 300 mg Capsule PO ×2 (08:58→18:00)
[2023-03-19 11:36] LABS: Glucose Point of Care 334 mg/dL (70-110)
[2023-03-19 13:37] VITALS: O2SAT 94; O2SAT 96
[2023-03-19 14:00] VITALS: BP 151/97; PULSE 118; RESP 18; TEMP 36.6; O2SAT 94
[2023-03-19] MEDS: hyDROXYzine 25 mg Capsule 50 MG PO (15:08)
--- NOTE | 2023-03-19 16:42 | W.PM.NPUPNS ---
Subjective NPU Subjective: Patient is a 42-year-old white male with intellectual disability and intermittent explosive disorder admitted with worsening depression and suicidal ideation. Patient appeared to have a pseudoseizure yesterday. He had been less cooperative and had refused to get his blood sugar checked later this afternoon. He had reported that he needed to receive therapy and stated that he had difficulty with speaking with his staff at [facility]. He had stated that he needed something stronger . He appeared to have limited interactions in group. He had reported having been appreciative over the respiratory evaluation as he stated that he did need oxygen at night to help him sleep. He did not endorse any side effects from his psychotropic medications at this time. Mental Status Exam MSE Comments: This is an obese versus morbidly white male in hospital scrubs with adequate grooming and eye contact. No abnormal involuntary motor movements were appreciated. He was cooperative with exam and in mild to moderate distress. Speech was slightly decreased rate and volume and childlike. Mood reported as depressed. His affect remained flat and mood congruent. His thought process was linear and organized. Thought content: The patient endorsed occasional suicidal thoughts with no active plan today. He denied any homicidal ideation. There were no delusions reported or noted, he denied any auditory or visual hallucinations. His attention span was fair. His memory was mostly reliable but none were formally tested. He is alert and oriented x3. Insight and judgment are poor. His impulse control remains poor.. Intellectual ability appears commensurate with mild cognitive impairment. Vitals/I&O/Wt Last Vital Signs Temp 97.8 F 03/19/23 14:00 Pulse 118 H 03/19/23 14:00 Resp 18 03/19/23 14:00 BP 151/97 03/19/23 14:00 Pulse Ox 94 03/19/23 14:00 O2 Del Method Room Air 03/18/23 19:55 O2 Flow Rate 2 03/18/23 11:41 Data NPU 03/15/23 21:58 03/15/23 21:58 A&P Assessment and plan (1) Intermittent explosive disorder in adult: (2) Suicidal ideation: (3) Bipolar 1 disorder: (4) Mild intellectual disability: (5) PTSD (post-traumatic stress disorder): Plan This is a 42-year-old white male with a long history of intellectual disability and impulse control issues presents from the [facility] with a guardian after a reported outburst without current issues. 1.? ? Engage? patient in individual ,milieu, and group therapy ?2. ? Discontinue Zoloft and increase Effexor to 75 mg daily., Continue Depakote 2000 mg daily,-increase Abilify to 10 mg to target depression. Continue Valium at 5 mg 3 times a day. ?3. ? TO-15 minute checks on the unit. ?4. Attempt to gather collateral information performed chart review. Involuntary Hold Information 96 Hour Hold: 96 Hour Involuntary Admission: No 96 Hour Hold Ending Date: 01/18/23 96 Hour Hold Ending Time: 21:38 Attestations NPU Medical Necessity Statement*: The patient hospitalization is medically necessary and deemed to be the clinically appropriate intervention at this time. We will monitor and make medication changes as indicated with likely length of stay of 5 to 7 days. Coding Level of Care Code Acute Code for [facility] Fwd Diagnoses Intermittent explosive disorder in adult F63.81 Suicidal ideation R45.851 Bipolar 1 disorder F31.9 Mild intellectual disability F70 PTSD (post-traumatic stress disorder) F43.10
[2023-03-19 17:34] LABS: Glucose Point of Care 370 mg/dL (70-110)
--- NOTE | 2023-03-19 20:07 | PC.NURSE ---
pt refused accu check and vitals
[2023-03-19 20:08] VITALS: RESP 20
[2023-03-19] MEDS: diazePAM 5 mg Tablet PO (20:43)
[2023-03-19] MEDS: atorvastatin 40 mg Tablet PO (20:43)
[2023-03-19 21:13] LABS: Glucose Point of Care 398 mg/dL (70-110)
[2023-03-20 06:00] VITALS: RESP 20
--- NOTE | 2023-03-20 06:26 | PC.NURSE ---
resp 20 pt sleeping
[2023-03-20 08:00] VITALS: PULSE 116; RESP 18; O2SAT 96
[2023-03-20 08:25] LABS: Glucose Point of Care 268 mg/dL (70-110)
[2023-03-20] MEDS: insulin lispro 100 unit/1 mL SUBCUT ×4 (10:06→21:14)
[2023-03-20] MEDS: divalproex ER 500 mg Tablet (24H) 2000 MG PO (10:07)
[2023-03-20] MEDS: gabapentin 300 mg Capsule PO ×2 (10:07→17:07)
[2023-03-20] MEDS: ARIPiprazole 10 mg Tablet PO (10:08)
[2023-03-20] MEDS: apixaban 5 mg Tablet PO ×2 (10:08→17:07)
[2023-03-20] MEDS: metformin XR 500 MG Tablet 1000 MG PO ×2 (10:08→17:07)
[2023-03-20] MEDS: aspirin 81 mg EC Tablet PO (10:08)
[2023-03-20] MEDS: sennosides-docusate Tablet 1 TAB PO ×2 (10:09→17:07)
[2023-03-20] MEDS: venlafaxine ER (24HR) 75 mg Capsule PO (10:09)
[2023-03-20] MEDS: diazePAM 5 mg Tablet PO ×3 (10:09→19:33)
[2023-03-20] MEDS: hyDROXYzine 25 mg Capsule 50 MG PO ×2 (11:50→21:14)
[2023-03-20 12:28] LABS: Glucose Point of Care 295 mg/dL (70-110)
[2023-03-20 14:00] VITALS: BP 150/93; PULSE 140; RESP 20; TEMP 36.3; O2SAT 96
[2023-03-20 14:27] VITALS: PULSE 124
--- NOTE | 2023-03-20 14:27 | ECG_ITS ---
[facility] Test Date: 2023-03-20 Pat Name: Zaire Nassar Department: Room: 151 Gender: Male Process Analyst: : 1980 Requested By: Mode aHll Order Number: [id number] Drew MD: Skinny Talbert M.D. Measurements Intervals Varney Rate: 124 P: 39 WV: 170 QRS: 268 QRSD: 96 T: 52 QT: 300 QTc: 432 Interpretive Statements SINUS TACHYCARDIA RIGHT AXIS DEVIATION [QRS AXIS > 100] POSSIBLE ANTERIOR MYOCARDIAL INFARCTION , OF INDETERMINATE AGE [30 ms Q WAVE IN V3/V4, OR R < 0.2 mV IN V4] Compared to ECG 03/18/2023 20:12:47 Right-axis deviation now present Sinus rhythm no longer present Myocardial infarct finding still present Electronically Signed On 03-20-2023 16:52:28 CDT by Skinny Talbert M.D. [id number]
--- NOTE | 2023-03-20 16:00 | P.NPUPN_ITS ---
Subjective NPU Subjective: Patient is a 42-year-old white male with intellectual disability and intermittent explosive disorder admitted with worsening depression and suicidal ideation. The patient had reported no side effects from his medication change. He continued to appear to engage in significant attention seeking behavior. He continued to state that he wanted to be better before he returned home. He had reported adequate sleep. He had continued to endorse having thoughts of killing himself although he had been less focal and less persistent about wanting to jump out in front of a train. Patient had tolerated the discontinuation of Zoloft without any events. He had reported that he was willing to continue to take the Effexor. He reported no side effects from the Abilify at this time. He had minimal involvement in groups today. Mental Status Exam MSE Comments: This is an obese versus morbidly white male in hospital scrubs with adequate grooming and eye contact. No abnormal involuntary motor movements were appreciated. He was cooperative with exam and in mild to moderate distress. Speech was slightly decreased rate and volume and childlike. Mood continued to be reported as depressed. His affect remained flat and mood congruent. His thought process was linear and organized. Thought content: The patient endorsed occasional suicidal thoughts with no active plan today. He denied any homicidal ideation. There were no delusions reported or noted, he denied any auditory or visual hallucinations. His attention span was fair. His memory was mostly reliable but none were formally tested. He is alert and oriented x3. Insight and judgment are poor. His impulse control remains poor.. Intellectual ability appears commensurate with mild cognitive impairment. Vitals/I&O/Wt Last Vital Signs Temp 97.3 F L 03/20/23 14:00 Pulse 124 H 03/20/23 14:27 Resp 20 H 03/20/23 14:00 BP 150/93 03/20/23 14:00 Pulse Ox 96 03/20/23 14:00 O2 Del Method Room Air 03/20/23 14:00 O2 Flow Rate 2 03/18/23 11:41 Data NPU 03/15/23 21:58 03/15/23 21:58 A&P Assessment and plan (1) Intermittent explosive disorder in adult: (2) Suicidal ideation: (3) Bipolar 1 disorder: (4) Mild intellectual disability: (5) PTSD (post-traumatic stress disorder): Plan This is a 42-year-old white male with a long history of intellectual disability and impulse control issues presents from the [facility] with a guardian after a reported outburst without current issues. 1.? ? Engage? patient in individual ,milieu, and group therapy ?2. ? Continue Effexor at75 mg daily., Continue Depakote 2000 mg daily,-Con tinue Abilify at 10 mg to target depression. Continue Valium at 5 mg 3 times a day to target anxiety. ?3. ? TO-15 minute checks on the unit. ?4. Attempt to gather collateral information performed chart review. Involuntary Hold Information 96 Hour Hold: 96 Hour Involuntary Admission: No 96 Hour Hold Ending Date: 01/18/23 96 Hour Hold Ending Time: 21:38 Attestations NPU Medical Necessity Statement*: The patient hospitalization is medically necessary and deemed to be the clinically appropriate intervention at this time. We will monitor and make medication changes as indicated with likely length of stay of 5 to 7 days. Coding Level of Care Code Acute Code for [facility] Fwd Diagnoses Intermittent explosive disorder in adult F63.81 Suicidal ideation R45.851 Bipolar 1 disorder F31.9 Mild intellectual disability F70 PTSD (post-traumatic stress disorder) F43.10
[2023-03-20 17:52] LABS: Glucose Point of Care 423 mg/dL (70-110)
[2023-03-20] MEDS: atorvastatin 40 mg Tablet PO (19:33)
[2023-03-20 19:54] LABS: Glucose Point of Care 459 mg/dL (70-110)
[2023-03-20 21:59] VITALS: BP 136/94; PULSE 102; RESP 18; TEMP 36.8; O2SAT 93
[2023-03-21 05:50] VITALS: RESP 18
[2023-03-21 08:23] LABS: Glucose Point of Care 266 mg/dL (70-110)
[2023-03-21] MEDS: insulin lispro 100 unit/1 mL SUBCUT ×3 (08:41→20:12)
[2023-03-21] MEDS: gabapentin 300 mg Capsule PO ×2 (08:41→18:14)
[2023-03-21] MEDS: sennosides-docusate Tablet 1 TAB PO (08:41)
[2023-03-21] MEDS: divalproex ER 500 mg Tablet (24H) 2000 MG PO (08:41)
[2023-03-21] MEDS: metformin XR 500 MG Tablet 1000 MG PO ×2 (08:41→18:14)
[2023-03-21] MEDS: ARIPiprazole 10 mg Tablet PO (08:41)
[2023-03-21] MEDS: apixaban 5 mg Tablet PO ×2 (08:41→18:14)
[2023-03-21] MEDS: aspirin 81 mg EC Tablet PO (08:42)
[2023-03-21] MEDS: venlafaxine ER (24HR) 75 mg Capsule PO (08:42)
[2023-03-21] MEDS: diazePAM 5 mg Tablet PO ×3 (08:42→20:13)
[2023-03-21 12:48] LABS: Glucose Point of Care 399 mg/dL (70-110)
[2023-03-21 14:00] VITALS: BP 153/97; PULSE 120; RESP 18; TEMP 36.6; O2SAT 92
--- NOTE | 2023-03-21 15:41 | PM.CONSULT ---
Providers/Reason For Consult Consulting Physician/Specialty*: Psychiatry Reason for Consult*: Hyperglycemia Attending Physician: Mode Hall MD Primary Care Provider: Blair Cheatham MD History of Present Illness History of Present Illness Zaire Nassar is a 42 year old male with a past medical history of intellectual disability, pulm embolism, depression, insulin-dependent type 2 diabetes mellitus, hypertension, admitted to [facility] hospice team was consulted due to elevated blood sugars, patient was seen, he tells me that he was diagnosed with diabetes many years ago, he is been on pills before, only recently been placed on insulin, denies any polyuria, no polydipsia, no polyphagia, nursing staff and [facility] tells me that he tends to snack, he at bedside has multiple empty bags of chips, and pop tarts, he denies any fevers, chills, no headache, blurry vision, no nausea, vomiting Review of Systems Const: Denies: fever(s) Card: Denies: chest pain Resp: Denies: dyspnea Medications/Allergies Home Medications Medication Instructions Recorded Confirmed Last Taken Type aspirin 81 mg tablet,delayed 81 mg PO DAILY 10/11/22 03/13/23 03/13/23 08:00 History release atorvastatin 40 mg tablet 40 mg PO BEDTIME 10/11/22 03/14/23 03/12/23 20:00 History calcium carbonate 215 mg calcium 215 mg PO BID 10/11/22 03/14/23 Unknown History (500 mg) chewable tablet (Antacid (calcium carbonate)) empagliflozin 25 mg tablet 25 mg PO DAILY 10/11/22 03/14/23 03/13/23 08:00 History (Jardiance) gabapentin 300 mg capsule 300 mg PO BID 10/11/22 03/14/23 03/13/23 08:00 History (Neurontin) metformin 500 mg tablet,extended 1,000 mg PO BID 10/11/22 03/14/23 03/13/23 08:00 History release 24hr albuterol sulfate 90 mcg/actuation 2 inh inhalation Q4H PRN shortness 11/14/22 03/13/23 03/13/23 09:00 Rx aerosol inhaler of breath or wheezing #8.5 grams hydroxyzine HCl 50 mg tablet 50 mg PO QID PRN anxiety or sleep 12/28/22 03/14/23 Unknown Rx 30 days #120 tabs apixaban 5 mg tablet (Eliquis) 5 mg PO BID #180 tabs 01/04/23 03/13/23 03/13/23 09:00 Rx clonazepam 1 mg disintegrating 1 mg PO .qhs 30 days #30 tabs 03/01/23 03/14/23 03/12/23 20:00 Rx tablet divalproex 500 mg tablet,extended 2,000 mg PO BEDTIME 30 days #120 03/01/23 03/14/23 03/12/23 20:00 Rx release 24 hr tabs haloperidol 5 mg tablet 5 mg PO .qhs 30 days #30 tabs 03/01/23 03/14/23 03/12/23 20:00 Rx prazosin 1 mg capsule 1 mg PO BEDTIME 30 days #30 caps 03/01/23 03/14/23 03/12/23 20:00 Rx sertraline 100 mg tablet (Zoloft) 200 mg PO DAILY 30 days #60 tabs 03/01/23 03/14/23 03/13/23 08:00 Rx clonazepam 1 mg tablet 1 mg PO DAILY PRN Anxiety 03/14/23 03/14/23 Unknown History liraglutide 0.6 mg/0.1 mL (18 mg/3 1.8 mg SUBCUT DAILY 03/14/23 03/14/23 03/13/23 08:00 History mL) subcutaneous pen injector (Victoza 2-Philippe) bismuth subsalicylate 262 mg/15 mL See Rx Instructions .Route .COMPLEX 03/16/23 03/16/23 Unknown History oral suspension (Stomach Relief) ferrous sulfate 325 mg (65 mg 325 mg PO DAILY 03/16/23 03/16/23 Unknown History iron) tablet (iron) insulin glargine 100 unit/mL (3 50 unit SUBCUT BEDTIME 03/16/23 03/16/23 Unknown History mL) subcutaneous pen (Lantus Solostar U-100 Insulin) insulin lispro 100 unit/mL See Rx Instructions .Route .COMPLEX 03/16/23 03/16/23 Unknown History subcutaneous pen (Humalog KwikPen (U-100) Insulin) irbesartan 150 mg tablet 150 mg PO DAILY 03/16/23 03/16/23 Unknown History promethazine-DM 6.25 mg-15 mg/5 mL 5 ml PO Q6H PRN Cough 03/16/23 03/16/23 Unknown History oral syrup Allergies Allergy/AdvReac Type Severity Reaction Status Date / Time No Known Allergies Allergy Verified 03/01/23 11:16 Current Medications Generic Name Dose Route Start Last Admin Trade Name Freq PRN Reason Stop Dose Admin Acetaminophen 650 mg 03/13/23 23:19 03/16/23 13:53 Acetaminophen 325 Mg Tablet PO 650 mg Q4H PRN Administration MILD PAIN Apixaban 5 mg 03/14/23 09:00 03/21/23 08:41 Apixaban 5 Mg Tablet PO 5 mg BID LASHAE Administration Aripiprazole 10 mg 03/20/23 09:00 03/21/23 08:41 Aripiprazole 10 Mg Tablet PO 10 mg DAILY LASHAE Administration Aspirin 81 mg 03/14/23 09:00 03/21/23 08:42 Aspirin 81 Mg Ec Tablet PO 81 mg DAILY LASHAE Administration Atorvastatin Calcium 40 mg 03/14/23 00:15 03/20/23 19:33 Atorvastatin 40 Mg Tablet PO 40 mg BEDTIME LASHAE Administration Benztropine Mesylate 1 mg 03/13/23 23:19 03/16/23 08:07 Benztropine 1 Mg Tablet PO 1 mg BID PRN Administration Mild Extrapyramidal symptoms Diazepam 5 mg 03/18/23 21:00 03/21/23 08:42 Diazepam 5 Mg Tablet PO 5 mg TID LASHAE Administration Diphenhydramine HCl 50 mg 03/13/23 23:19 03/16/23 13:54 Diphenhydramine 50 Mg/Ml Sdv 1ml IM 50 mg Q4H PRN Administration Severe Aggression Divalproex Sodium 2,000 mg 03/15/23 08:00 03/21/23 08:41 Divalproex Er 500 Mg Tablet (24h) PO 2,000 mg BREAKFAST LASHAE Administration Gabapentin 300 mg 03/14/23 09:00 03/21/23 08:41 Gabapentin 300 Mg Capsule PO 300 mg BID LASHAE Administration Hydroxyzine Pamoate 50 mg 03/13/23 23:19 03/20/23 21:14 Hydroxyzine 25 Mg Capsule PO 50 mg Q6H PRN Administration ANXIETY Hydroxyzine Pamoate 50 mg 03/14/23 00:19 03/20/23 11:50 Hydroxyzine 25 Mg Capsule PO 50 mg QID PRN Administration anxiety or sleep Ibuprofen 600 mg 03/13/23 23:19 03/18/23 20:20 Ibuprofen 600 Mg Tablet PO 600 mg Q6H PRN Administration MODERATE PAIN Insulin Human Lispro 0 unit 03/14/23 08:00 03/21/23 13:18 Insulin Lispro 100 Unit/1 Ml SUBCUT 14 unit WM&BEDTIME LASHAE Administration Protocol Metformin HCl 1,000 mg 03/14/23 09:00 03/21/23 08:41 Metformin Xr 500 Mg Tablet PO 1,000 mg BID LASHAE Administration Non-Formulary Medication 1.8 mg 03/14/23 09:00 03/15/23 09:45 Liraglutide [Victoza 2-Philippe] SUBCUT Not Given DAILY LASHAE Olanzapine 5 mg 03/13/23 23:19 03/18/23 17:53 Olanzapine 5 Mg Odt PO 5 mg Q4H PRN Administration Agitation/Psychosis Ondansetron HCl 4 mg 03/13/23 23:19 03/17/23 14:01 Ondansetron 4 Mg Tablet PO 4 mg Q6H PRN Administration NAUSEA AND VOMITING Senna/Docusate Sodium 1 tab 03/16/23 20:10 03/21/23 08:41 Sennosides-Docusate Tablet PO 1 tab BID LASHAE Administration Trazodone HCl 50 mg 03/13/23 23:19 03/17/23 21:25 Trazodone 50 Mg Tablet PO 50 mg BEDTIME PRN Administration SLEEP Venlafaxine HCl 75 mg 03/20/23 09:00 03/21/23 08:42 Venlafaxine Er (24hr) 75 Mg Capsule PO 75 mg DAILY LASHAE Administration PFSH Acute PFSH: Medical History Bipolar 1 disorder Fracture of triquetrum Other reactions to severe stress Psychiatric care Social History Smoking and tobacco status: current every day smoker e-cigarettes Alcohol intake: current Alcohol intake frequency: few times a month Substance/Drug Use: never Marital status: Single Vitals/I&O/Wt Last Vital Signs Temp 98 F 03/21/23 14:00 Pulse 120 H 03/21/23 14:00 Resp 18 03/21/23 14:00 BP 153/97 03/21/23 14:00 Pulse Ox 92 03/21/23 14:00 O2 Del Method Room Air 03/20/23 21:59 O2 Flow Rate 2 03/18/23 11:41 Physical Exam Const: COMMON NORMALS: no acute distress and patient oriented x3 HENMT: COMMON NORMALS: normocephalic HEAD & SCALP: normocephalic Neck/C-Spine: COMMON NORMALS: no JVD Resp: COMMON NORMALS: normal respiratory effort, No retractions, No use of accessory muscles and clear to auscultation bilaterally AUSCULTATION: clear to auscultation bilaterally Cardio: COMMON NORMALS: no JVD, regular rate, regular rhythm, S1 normal heart sound present and S2 normal heart sound present RATE: regular rate RHYTHM: regular rhythm HEART SOUNDS: S1 normal heart sound present and S2 normal heart sound present GI: COMMON NORMALS: Normal to inspection, nondistended, normoactive bowel sounds present, Soft to palpation and non-tender PALPATION: Yes Soft to palpation Extremity: COMMON NORMALS: no clubbing, cyanosis or edema and no pedal edema Neuro: COMMON NORMALS: patient oriented x3 Psych: COMMON NORMALS: mental status grossly normal Data 03/15/23 21:58 03/15/23 21:58 A&P Assessment and plan (1) Type 2 diabetes mellitus: (2) Hyperglycemia: Plan Hyperglycemia with type 2 diabetes mellitus -Start Lantus 10 units every 12 hours -Increase to high-dose sliding scale -Advised of compliance with diabetic diet -Accu-Cheks - Consult Attestations Medical Necessity Statement: Patient requires hospitalization for hyperglycemia, type 2 diabetes mellitus Diagnoses Type 2 diabetes mellitus E11.9 Hyperglycemia R73.9
[2023-03-21 17:56] LABS: Glucose Point of Care 307 mg/dL (70-110)
--- NOTE | 2023-03-21 19:00 | W.PM.NPUPNS ---
Subjective NPU Subjective: Patient is a 42-year-old white male with intellectual disability and intermittent explosive disorder admitted with worsening depression and suicidal ideation. Patient had reported improved mood. He had reported that he still needed to get some therapy. He had been redirectable on the milieu. He had been more compliant but continued to struggle with his management of his blood sugars. He reported no side effects from his medications at this time. He reported that he was feeling better about returning back to [facility]. He reported good sleep. Mental Status Exam MSE Comments: This is an obese versus morbidly white male in hospital scrubs with adequate grooming and eye contact. No abnormal involuntary motor movements were appreciated. He was cooperative with exam and appeared in less distress today. Speech was slightly decreased in rate but normal in volume today.. Mood reported his mood is better today. His affect was less restricted. His thought process was linear and organized. Thought content: The patient did not endorse any suicidal thoughts today. He denied any homicidal ideation. There were no delusions reported or noted, he denied any auditory or visual hallucinations. His attention span was fair. His memory was mostly reliable but none were formally tested. He is alert and oriented x3. Insight and judgment are poor. His impulse control was showing some improvement.. Intellectual ability appears commensurate with mild cognitive impairment. Vitals/I&O/Wt Last Vital Signs Temp 98 F 03/21/23 14:00 Pulse 120 H 03/21/23 14:00 Resp 18 03/21/23 14:00 BP 153/97 03/21/23 14:00 Pulse Ox 92 03/21/23 14:00 O2 Del Method Room Air 03/20/23 21:59 O2 Flow Rate 2 03/18/23 11:41 Data NPU 03/15/23 21:58 03/15/23 21:58 A&P Assessment and plan (1) Type 2 diabetes mellitus: (2) Hyperglycemia: Plan This is a 42-year-old white male with a long history of intellectual disability and impulse control issues presents [place] the [facility] with a guardian after a reported outburst without current issues. ??1.? ? Engage? patient in individual ,milieu, and group therapy ??2. ? Continue Effexor at 75 mg daily.,? Continue Depakote 2000 mg daily,-increase his Abilify to 15 mg to target depression.? Continue Valium at 5 mg 3 times a day to target anxiety. ??3. ? TO-15 minute checks on the unit. ??4.? Patient appears to be ready to return home in the next 1 to 2 days. Appreciate [facility] consultation for aid with the patient's diabetes. Involuntary Hold Information 96 Hour Hold: 96 Hour Involuntary Admission: No 96 Hour Hold Ending Date: 01/18/23 96 Hour Hold Ending Time: 21:38 Attestations NPU Medical Necessity Statement*: The patient hospitalization is medically necessary and deemed to be the clinically appropriate intervention at this time. We will monitor and make medication changes as indicated with likely length of stay of 2 to 3 days. Coding Level of Care Code Acute Code for [facility] Fwd Diagnoses Type 2 diabetes mellitus E11.9 Hyperglycemia R73.9
[2023-03-21 20:11] LABS: Glucose Point of Care 363 mg/dL (70-110)
[2023-03-21] MEDS: insulin glargine 100 units/1 mL 10 UNIT SUBCUT (20:12)
[2023-03-21] MEDS: atorvastatin 40 mg Tablet PO (20:13)
[2023-03-21 22:00] VITALS: BP 147/94; PULSE 111; RESP 18; TEMP 36.6; O2SAT 91
[2023-03-22 05:57] VITALS: RESP 18
[2023-03-22 08:26] LABS: Glucose Point of Care 319 mg/dL (70-110)
[2023-03-22] MEDS: divalproex ER 500 mg Tablet (24H) 2000 MG PO (08:34)
[2023-03-22] MEDS: venlafaxine ER (24HR) 37.5 mg Capsule PO (08:34)
[2023-03-22] MEDS: aspirin 81 mg EC Tablet PO (08:34)
[2023-03-22] MEDS: metformin XR 500 MG Tablet 1000 MG PO (08:34)
[2023-03-22] MEDS: venlafaxine ER (24HR) 75 mg Capsule PO (08:35)
[2023-03-22] MEDS: apixaban 5 mg Tablet PO (08:35)
[2023-03-22] MEDS: ARIPiprazole 30 mg Tablet 15 MG PO (08:35)
[2023-03-22] MEDS: insulin glargine 100 units/1 mL 10 UNIT SUBCUT (08:35)
[2023-03-22] MEDS: sennosides-docusate Tablet 1 TAB PO (08:35)
[2023-03-22] MEDS: diazePAM 5 mg Tablet PO ×2 (08:35→14:38)
[2023-03-22] MEDS: gabapentin 300 mg Capsule PO (08:35)
[2023-03-22] MEDS: insulin lispro 100 unit/1 mL SUBCUT ×2 (08:36→13:23)
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
--- NOTE | 2023-03-22 12:56 | DCPLANNER ---
IMM completed verbally with Janae on 03/22/23 @ 1069. A copy of rights will be given to Janae when she picks pt up.
[2023-03-22 12:59] VITALS: RESP 18
[2023-03-22 13:01] VITALS: BP 147/94; PULSE 111; RESP 18; TEMP 36.6; O2SAT 91
[2023-03-22 13:08] LABS: Glucose Point of Care 307 mg/dL (70-110)
[2023-03-22] MEDS: OLANZapine 5 mg ODT PO (14:34)
== END 2023-03-22 14:32 | disposition home or self-care (01) | DRG 883 ==
LOC: ER 22:39 → NP 23:01 → CSU 03-15 22:35 → NP 03-18 14:00
PROVIDERS: Internal Medicine; Admitting Provider Psychiatry & Neurology Psychiatry; Emergency Provider Emergency Medicine; PCP Family Medicine; Visit Provider Psychiatry & Neurology Psychiatry
DX: F63.81 Intermittent explosive disorder (principal); R45.851 Suicidal ideations; F31.9 Bipolar disorder, unspecified; F17.290 Nicotine dependence, other tobacco product, uncomplicated; E11.65 Type 2 diabetes mellitus with hyperglycemia; E78.00 Pure hypercholesterolemia, unspecified; I10 Essential (primary) hypertension; E66.01 Morbid (severe) obesity due to excess calories; Z68.38 Body mass index [BMI] 38.0-38.9, adult; Z86.711 Personal history of pulmonary embolism; Z79.01 Long term (current) use of anticoagulants; Z79.4 Long term (current) use of insulin; F43.10 Post-traumatic stress disorder, unspecified; E11.40 Type 2 diabetes mellitus with diabetic neuropathy, unspecified; R11.0 Nausea; Z62.812 Personal history of neglect in childhood; Z62.810 Personal history of physical and sexual abuse in childhood; Z91.51 Personal history of suicidal behavior
CPT/HCPCS: 36415; 36416; 70450; 70496; 70498; 80053; 80164; 80306; 80307; 82803; 82962; 83735; 84443; 84484; 85025; 93005; 94760; 96372; 97165; 99238; 99285; J0360; J1200; J1815; J7030; Q0162; Q9967

== ENCOUNTER 2023-03-30 01:54 | Emergency (ER) | payer MEDICARE, MEDICAID, SELFPAY ==
[2023-03-30 01:55] VITALS: BP 111/69; PULSE 132; RESP 18; TEMP 36.6; O2SAT 90; BMI 39.5
--- NOTE | 2023-03-30 01:56 | XRR_ITS ---
PROCEDURE INFORMATION: Exam: XR Chest Exam date and time: 03/30/2023 2:02 AM Age: 42 years old Clinical indication: Shortness of breath; Patient HX: SOB; Additional info: AMS TECHNIQUE: Imaging protocol: Radiologic exam of the chest. Views: 1 view. COMPARISON: CR (CHEST, ) 01/15/2023 8:09 PM FINDINGS: Lungs: No consolidation. Pleural spaces: No pleural effusion. No pneumothorax. Heart/Mediastinum: No cardiomegaly. Bones/joints: No acute fracture. Degenerative changes of the partially imaged spine with moderate to large endplate osteophytes are noted. XR/XR chest 1V portable [id number] IMPRESSION: No acute cardiopulmonary findings.
--- NOTE | 2023-03-30 01:57 | ECG_ITS ---
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 Measurements Intervals [place] Rate: 134 P: 47 NE: 152 QRS: 261 QRSD: 101 T: 21 QT: 302 QTc: 452 Interpretive Statements SINUS TACHYCARDIA POSSIBLE RIGHT VENTRICULAR HYPERTROPHY [SOME/ALL OF: PROMINENT R IN V1, LATE TRANSITION, RAD, JUAN, SSS] ANTEROSEPTAL MYOCARDIAL INFARCTION , OF INDETERMINATE AGE [40+ ms Q WAVE IN V1-V4] Compared to ECG 03/20/2023 14:45:25 Right-axis deviation no longer present Myocardial infarct finding still present Electronically Signed On 03-30-2023 9:15:39 CDT by Migdalia Chavez M.D. [id number]
--- NOTE | 2023-03-30 01:59 | W.ED.GENADLT ---
HPI - General Adult General: Chief complaint: Syncope Stated complaint: AMS/LOW SUGAR Time Seen by Provider: 03/30/23 01:55 Source: patient Mode of arrival: ambulatory Limitations: no limitations History of Present Illness: 42-year-old male history of diabetes states has had some diarrhea over the last 2 weeks states he got up this morning felt weak he lives at a assisted he checked his blood sugar Primus the first 1 that the assisted check was at 59 had an eating been passed out states 0 and he was 70 but now he is awake alert he is at his baseline he states he just feels slightly weak no cough or fever. Denies any headache. Associated symptoms: Deny chest pain, dyspnea, headache(s), nausea, rash or vomiting Review of Systems Const: Denies: fever(s) or chills Eyes: Denies: eye discomfort ENMT: Denies: throat pain or dental pain Card: Denies: chest pain Resp: Denies: dyspnea GI: Denies: abdominal pain, nausea, vomiting or diarrhea : Denies: dysuria Musc: Denies: neck pain or back pain Skin/Breast: Denies: rash Neuro: Denies: headache(s) PFSH ED PFSH: Medical History Bipolar 1 disorder Fracture of triquetrum Other reactions to severe stress Psychiatric care Pulmonary embolism Social History Smoking and tobacco status: current every day smoker e-cigarettes Alcohol intake: current Alcohol intake frequency: few times a month Substance/Drug Use: never Marital status: Single Physical Exam Const: COMMON NORMALS: no acute distress, patient oriented x3 and healthy appearing HENMT: COMMON NORMALS: normocephalic and atraumatic HEAD & SCALP: normocephalic and atraumatic Eye: COMMON NORMALS: Equal, round and reactive pupils present and EOMs intact bilaterally PUPIL: Yes Equal, round and reactive pupils present Neck/C-Spine: COMMON NORMALS: full ROM and supple Chest: COMMONS NORMALS: normal inspection of the chest and normal palpation of entire chest wall Resp: COMMON NORMALS: normal respiratory effort, No retractions, No use of accessory muscles and clear to auscultation bilaterally AUSCULTATION: clear to auscultation bilaterally Cardio: COMMON NORMALS: regular rate, regular rhythm and No murmurs present (Cardio) RATE: regular rate RHYTHM: regular rhythm GI: COMMON NORMALS: Normal to inspection, nondistended, normoactive bowel sounds present, Soft to palpation, non-tender and no masses PALPATION: Yes Soft to palpation Extremity: COMMON NORMALS: normal to inspection and full ROM Neuro: COMMON NORMALS: patient oriented x3, moves all extremities and no focal motor deficits Psych: COMMON NORMALS: mental status grossly normal, Normal thought process present and cooperative THOUGHT PROCESS: Normal thought process present Skin: COMMON NORMALS: no rashes or lesions noted and no wounds GENERAL SKIN EXAM: no rashes or lesions noted Course Vital Signs: Vital signs: Vital Signs Temperature 98 F 03/30/23 01:55 Pulse Rate 125 H 03/30/23 03:09 Respiratory Rate 16 03/30/23 03:09 Blood Pressure 146/86 03/30/23 03:09 Pulse Oximetry 93 03/30/23 03:09 Oxygen Delivery Me thod Room Air 03/30/23 02:06 [facility] - General Adult Medical Decision Making Sue presents here after a syncopal event likely from hypoglycemia. Feels much improved here after IV fluids he has a chronic tachycardia his heart rate improved here at discharge it was a 108 blood pressures been normal here no signs of infection. He is ambulated the halls here his pulse ox 95% on ambulation he stable for discharge follow-up with PCP and return if worsening. Medical Records I reviewed the patient's medical records. Lab Data I reviewed the patient's lab results. 03/30/23 01:57 03/30/23 01:57 Laboratory Results WBC 11.3 10^3/uL (4.0-10.0) H 03/30/23 01:57 RBC 6.07 10^6/uL (4.1-5.3) H 03/30/23 01:57 Hgb 17.5 g/dL (11.7-16.6) H 03/30/23 01:57 Hct 53.4 % (42.0-52.0) H 03/30/23 01:57 MCV 88.0 fl (80-94) 03/30/23 01:57 MCH 28.8 pg (28.0-34.0) 03/30/23 01:57 MCHC 32.8 g/dL (30.0-36.0) 03/30/23 01:57 RDW 13.6 % (12.1-15.1) 03/30/23 01:57 Plt Count 287 10^3/cmm (130-400) 03/30/23 01:57 MPV 10.5 fL (7.4-10.4) H 03/30/23 01:57 Neut % (Auto) 55.3 % 03/30/23 01:57 Lymph % (Auto) 31.4 % 03/30/23 01:57 [place] % (Auto) 10.1 % 03/30/23 01:57 Eos % (Auto) 2.2 % 03/30/23 01:57 Baso % (Auto) 0.4 % 03/30/23 01:57 Neut # (Auto) 6.24 10^3/uL (1.8-7.7) 03/30/23 01:57 Lymph # (Auto) 3.6 10^3/uL (0.8-4.8) 03/30/23 01:57 [place] # (Auto) 1.1 10^3/uL (0.2-0.9) H 03/30/23 01:57 Eos # (Auto) 0.3 10^3/uL (0.0-0.8) 03/30/23 01:57 Baso # (Auto) 0.0 10^3/uL (0.0-0.1) 03/30/23 01:57 Nucleated RBC % (auto) 0 % 03/30/23 01:57 Nucleated RBCs # 0.0 /100WBC 03/30/23 01:57 D-Dimer 0.44 ug/mIFEU (0-0.59) 03/30/23 01:57 Sodium 141 mmol/L (136-145) 03/30/23 01:57 Potassium 3.6 mmol/L (3.5-5.1) 03/30/23 01:57 Chloride 98 mmol/L (98-107) 03/30/23 01:57 Carbon Dioxide 26 mmol/L (22-29) 03/30/23 01:57 Anion Gap 20.6 (5-19) H 03/30/23 01:57 BUN 15 mg/dL (6-20) 03/30/23 01:57 Creatinine 0.9 mg/dL (0.7-1.2) 03/30/23 01:57 GFR Calculation 92.1 mL/min (90-130) 03/30/23 01:57 Glucose 77 mg/dL (65-115) 03/30/23 01:57 POC Glucose 98 mg/dL (70-110) 03/30/23 01:57 Calculated Osmolality 292 mOsm/kg (285-295) 03/30/23 01:57 Lactic Acid 3.5 mmol/L (0.5-2.2) H 03/30/23 02:50 Calcium 9.4 mg/dL (8.5-10.5) 03/30/23 01:57 Total Bilirubin 0.2 mg/dL (0.15-1.2) 03/30/23 01:57 AST 14 U/L (0-40) 03/30/23 01:57 ALT 21 U/L (0-41) 03/30/23 01:57 Alkaline Phosphatase 95 U/L (40-130) 03/30/23 01:57 NT-Pro-B Natriuret Pep 36 pg/mL (0-125) 03/30/23 01:57 Total Protein 6.5 g/dL (6.6-8.7) L 03/30/23 01:57 Albumin 4.4 g/dL (3.5-5.2) 03/30/23 01:57 Globulin 2.1 g/dL (1.3-4.6) 03/30/23 01:57 Lipase 19 U/L (13-60) 03/30/23 01:57 Urine Color Yellow (Yellow) 03/30/23 02:16 Urine Appearance Clear (CLEAR) 03/30/23 02:16 Urine pH 5 (5-7) 03/30/23 02:16 Ur Specific [place] 1.015 (1.005-1.030) 03/30/23 02:16 Urine Protein 1+ (Negative) H 03/30/23 02:16 Urine Glucose (UA) 4+ (Normal) H 03/30/23 02:16 Urine Ketones Negative (Negative) 03/30/23 02:16 Urine Blood Neg (Negative) 03/30/23 02:16 Urine Nitrate Negative (Negative) 03/30/23 02:16 Urine Bilirubin Neg (Negative) 03/30/23 02:16 Urine Urobilinogen Neg mg/dL (Negative) 03/30/23 02:16 Ur Leukocyte Esterase Negative (Negative) 03/30/23 02:16 Urine RBC None /hpf (0-2) 03/30/23 02:16 Urine WBC None /hpf (0-5) 03/30/23 02:16 Ur Squamous Epith Cells None /hpf (0-5) 03/30/23 02:16 Amorphous Sediment Not Reportable 03/30/23 02:16 Urine Bacteria Trace /hpf (NONE) 03/30/23 02:16 Urine Mucus 2+ /hpf 03/30/23 02:16 EKG Data EKG 1: I personally reviewed and interpreted this EKG as follows: EKG interpretation date: 03/30/23 EKG interpretation time: 02:11 Interpretation: sinus tach hr [address] or t wave abnormalities qrs 101 qtc 381 Discharge Plan Discharge Patient Disposition: Home Clinical Impression: Syncope Condition: Stable Prescriptions: No Action Eliquis 5 mg tablet 5 mg PO BID Qty: 180 3RF gabapentin [Neurontin] 300 mg capsule 300 mg PO BID atorvastatin 40 mg tablet 40 mg PO BEDTIME metformin 500 mg tablet extended release 24hr 1,000 mg PO BID aspirin 81 mg tablet,delayed release (DR/EC) 81 mg PO DAILY Jardiance 25 mg tablet 25 mg PO DAILY Antacid (calcium carbonate) 215 mg calcium (500 mg) tablet,chewable 215 mg PO BID aripiprazole 30 mg tablet 15 mg PO DAILY 30 Days Qty: 30 4RF diazepam 5 mg tablet 5 mg PO TID 30 Days Qty: 90 3RF divalproex 500 mg tablet extended release 24 hr 2,000 mg PO BEDTIME 30 Days Qty: 120 4RF haloperidol 5 mg tablet 5 mg PO .qhs 30 Days Qty: 30 3RF hydroxyzine HCl 50 mg tablet 50 mg PO QID PRN (Reason: anxiety or sleep) 30 Days Qty: 120 3RF venlafaxine 75 mg capsule,extended release 24hr 75 mg PO DAILY 30 Days Qty: 30 3RF Rx Instructions: take with 37.5mg cap for daily total of 112.5 mg venlafaxine 37.5 mg capsule,extended release 24hr 37.5 mg PO DAILY 30 Days Qty: 30 3RF Rx Instructions: take with 75mg cap for daily total of 112.5mg albuterol sulfate 90 mcg/actuation HFA aerosol inhaler 2 inh inhalation Q4H PRN (Reason: shortness of breath or wheezing) Qty: 8.5 0RF Victoza 2-Philippe 0.6 mg/0.1 mL (18 mg/3 mL) Pen Injector 1.8 mg SUBCUT DAILY promethazine-DM 6.25-15 mg/5 mL Syrup 5 ml PO Q6H PRN (Reason: Cough) iron 325 mg (65 mg iron) Tablet 325 mg PO DAILY Stomach Relief 262 mg/15 mL suspension See Rx Instructions .ROUTE .COMPLEX Rx Instructions: 1 mL PO NEEDED irbesartan 150 mg tablet 150 mg PO DAILY Humalog KwikPen Insulin 100 unit/mL insulin pen See Rx Instructions .ROUTE .COMPLEX Rx Instructions: 15 unit subcutaneously PER SLIDING SCALE THREE TIMES DAILY Lantus Solostar U-100 Insulin 100 unit/mL (3 mL) insulin pen 50 unit SUBCUT BEDTIME Discharge Orders: Discharge ED (Routine); Ordered 03/30/23 Ordered By: Wale Vyas Referrals: Blair Cheatham MD [Primary Care Provider] - Discharge Diet: Advance as tolerated Discharge Activity: Resume usual activity Patient Instructions: Syncope (ED) Coding Level of Care Code ED Stitching Machine Setter for Dasha Nix
[2023-03-30 02:01] LABS: Glucose Point of Care 98 mg/dL (70-110)
[2023-03-30 02:06] VITALS: BP 111/69; PULSE 136; RESP 16; O2SAT 90
[2023-03-30 02:06] LABS: Basophils % 0.4 %; Eosinophils # 0.3 10^3/uL (0.0-0.8); Eosinophils % 2.2 %; Hematocrit 53.4 % (42.0-52.0); Hemoglobin 17.5 g/dL (11.7-16.6); Lymphocytes # 3.6 10^3/uL (0.8-4.8); Lymphocytes % 31.4 %; Mean Corpuscular HGB Conc 32.8 g/dL (30.0-36.0); Mean Corpuscular Hemoglobin 28.8 pg (28.0-34.0); Mean Platelet Volume 10.5 fL (7.4-10.4); Monocytes # 1.1 10^3/uL (0.2-0.9); Monocytes % 10.1 %; Neutrophils # 6.24 10^3/uL (1.8-7.7); Neutrophils % 55.3 %; Nucleated Red Blood Cells % 0 %; Platelet Count 287 10^3/cmm (130-400); Red Blood Count 6.07 10^6/uL (4.1-5.3); Red Cell Distribution Width 13.6 % (12.1-15.1); White Blood Count 11.3 10^3/uL (4.0-10.0)
[2023-03-30] MEDS: sodium chloride 0.9% 1,000 ML 999 ML IV (02:15)
[2023-03-30 02:22] LABS: Glomerular Filtration Rate 92.1 mL/min (90-130)
[2023-03-30 02:37] LABS: Protein Urine 1+ (Negative); Specific Gravity, Urine 1.015 (1.005-1.030); Urine Appearance Clear (CLEAR); Urine Color Yellow (Yellow); pH Urine 5 (5-7)
[2023-03-30 02:38] LABS: Add Urine Culture? No; Add Urine Microscopic? YES; Bacteria Urine TRACE /hpf; Bilirubin Urine Neg (Negative); Blood Urine Neg (Negative); Glucose Urine UA 4+ (Normal); Ketones Urine Negative (Negative); Leukocyte Esterase Urine Negative (Negative); Mucus Urine 2+ /hpf; Nitrate Urine Negative (Negative); Urobilinogen Urine Neg (Negative)
[2023-03-30 02:41] LABS: D Dimer 0.44 ug/mIFEU (0-0.59)
[2023-03-30 02:57] LABS: Alanine Aminotransferase 21 U/L (0-41); Albumin Level 4.4 g/dL (3.5-5.2); Alkaline Phosphatase 95 U/L (40-130); Anion Gap 20.6 (5-19); Aspartate Amino Transferase 14 U/L (0-40); Calcium 9.4 mg/dL (8.5-10.5); Globulin 2.1 g/dL (1.3-4.6); Glucose 77 mg/dL (65-115); Lipase 19 U/L (13-60); Potassium 3.6 mmol/L (3.5-5.1); Total Bilirubin 0.2 mg/dL (0.15-1.2); Total Protein 6.5 g/dL (6.6-8.7)
[2023-03-30 03:00] LABS: Blood Urea Nitrogen 15 mg/dL (6-20); Osmolality Calculated 292 mOsm/kg (285-295)
[2023-03-30 03:01] LABS: Carbon Dioxide 26 mmol/L (22-29); Chloride 98 mmol/L (98-107)
[2023-03-30 03:02] LABS: Sodium 141 mmol/L (136-145)
[2023-03-30 03:03] LABS: NT Pro B Type Natriuretic Pept 36 pg/mL (0-125)
[2023-03-30 03:09] VITALS: BP 146/86; PULSE 125; RESP 16; O2SAT 93
[2023-03-30 03:13] LABS: Lactic Sepsis W/Reflex 3.5 mmol/L (0.5-2.2)
--- NOTE | 2023-04-05 10:39 | PC.SOCIAL ---
CM to see patient, they stated he was discharged yesterday afternoon.
== END 2023-03-30 03:13 | disposition home or self-care (01) ==
PROVIDERS: Emergency Provider Emergency Medicine; PCP Family Medicine
DX: R55 Syncope and collapse (principal); F17.290 Nicotine dependence, other tobacco product, uncomplicated
CPT/HCPCS: 36415; 36416; 71045; 80053; 81001; 82962; 83605; 83690; 83880; 85025; 85378; 93005; 96360; 96361; 99285; J7030

== ENCOUNTER 2023-04-04 03:42 | Inpatient (IN) | payer MEDICARE, MEDICAID, SELFPAY ==
[2023-04-04] VITALS (11 sets, daily range): BP systolic 108–175; BP diastolic 56–90; PULSE 78–125; RESP 16–18; TEMP 36.6; O2SAT 90–93; BMI 39.5
--- NOTE | 2023-04-04 03:44 | ED_ITS ---
Documented by User: Ra Boyd MD 04/16/23 13:44 HPI - General Adult General: Chief complaint: Recheck/Abnormal Lab/Rx Stated complaint: hypoglycemia Time Seen by Provider: 04/04/23 03:43 History of Present Illness: 42-year-old insulin-dependent diabetic presented to the emergency department due to concern of her hypoglycemic episode x2 today. He is unsure of exact circumstances. No changes in medications or diet. He is apparently found sleeping on the ground with blood sugar in the 50s twice. Denies any trauma related to this and thinks that he just laid down he could not quite make it to his bed. No other specific changes in health, exacerbating, or alleviating factors identified. Onset (ago): hour(s) Review of Systems General: Reports: 10 or more systems reviewed and unremarkable except in HPI and below PFSH ED PFSH: Medical History Bipolar 1 disorder Fracture of triquetrum Hyperlipidemia Hypertension Other reactions to severe stress Peripheral neuropathy Psychiatric care Pulmonary embolism Type 2 diabetes mellitus Surgical History History of appendectomy Social History Smoking and tobacco status: current every day smoker e-cigarettes Alcohol intake: current Alcohol intake frequency: few times a month Substance/Drug Use: never Marital status: Single Physical Exam Const: COMMON NORMALS: alert GENERAL APPEARANCE: cooperative and well developed HENMT: COMMON NORMALS: normocephalic and atraumatic HEAD & SCALP: normocephalic and atraumatic Eye: COMMON NORMALS: conjunctivae normal CONJUNCTIVA: Yes conjunctivae normal SCLERA: sclerae normal Neck/C-Spine: COMMON NORMALS: supple GENERAL: Yes trachea midline Resp: COMMON NORMALS: clear to auscultation bilaterally EFFORT & INSPECTION: Yes able to speak in complete sentences AUSCULTATION: clear to auscultation bilaterally Cardio: COMMON NORMALS: regular rhythm RATE: tachycardic RHYTHM: regular rhythm GI: COMMON NORMALS: Soft to palpation PALPATION: Yes Soft to palpation and No Tenderness to palpation present (GI) Extremity: GENERAL: Yes normal exam except as noted and No edema Neuro: COMMON NORMALS: moves all extremities SENSORIUM/ORIENTATION: Yes alert and No Orientation impaired Psych: COMMON NORMALS: mental status grossly normal and Normal thought process present THOUGHT PROCESS: Normal thought process present Course Vital Signs: Vital signs: Vital Signs Temperature 97.8 F 04/04/23 03:43 Pulse Rate 93 04/04/23 16:02 Respiratory Rate 18 04/04/23 07:00 Blood Pressure 118/78 04/04/23 16:02 Pulse Oximetry 93 04/04/23 16:02 Oxygen Delivery Me thod Room Air 04/04/23 14:00 MDM - General Adult Medical Decision Making 42-year-old gentleman presenting with recurrent episodes of hypoglycemia. Exam as above. EKG demonstrates atrial fibrillation, no STEMI. Labs with mild leukocytosis and hemoconcentration. Metabolic panel with mild hypokalemia. Patient had recurrent hypoglycemia despite eating. Handed off pending reassessment after additional p.o. intake. Patient presents to the ER during the weight shifter with complaints of hypoglycemia. Patient is on insulin. 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 Blood sugar stays low. Patient was placed on D10 at 100 mL/h then raised to 150 mL/h and blood sugar stayed low. Dr. Foster was consulted and agreed for inpatient admission to the ICU and hourly blood sugar checks while on D10. Medical Records I reviewed the patient's medical records. Lab Data I reviewed the patient's lab results. 04/04/23 03:59 04/04/23 03:59 Radiology Impressions Chest X-Ray 04/04/23 03:59 IMPRESSION: No acute findings. Laboratory Results WBC 12.1 10^3/uL (4.0-10.0) H 04/04/23 03:59 RBC 5.73 10^6/uL (4.1-5.3) H 04/04/23 03:59 Hgb 16.0 g/dL (11.7-16.6) 04/04/23 03:59 Hct 50.9 % (42.0-52.0) 04/04/23 03:59 MCV 88.8 fl (80-94) 04/04/23 03:59 MCH 27.9 pg (28.0-34.0) L 04/04/23 03:59 MCHC 31.4 g/dL (30.0-36.0) 04/04/23 03:59 RDW 13.8 % (12.1-15.1) 04/04/23 03:59 Plt Count 248 10^3/cmm (130-400) 04/04/23 03:59 MPV 10.1 fL (7.4-10.4) 04/04/23 03:59 Neut % (Auto) 64.7 % 04/04/23 03:59 Lymph % (Auto) 26.2 % 04/04/23 03:59 [place] % (Auto) 6.7 % 04/04/23 03:59 Eos % (Auto) 0.9 % 04/04/23 03:59 Baso % (Auto) 0.3 % 04/04/23 03:59 Neut # (Auto) 7.82 10^3/uL (1.8-7.7) H 04/04/23 03:59 Lymph # (Auto) 3.2 10^3/uL (0.8-4.8) 04/04/23 03:59 [place] # (Auto) 0.8 10^3/uL (0.2-0.9) 04/04/23 03:59 Eos # (Auto) 0.1 10^3/uL (0.0-0.8) 04/04/23 03:59 Baso # (Auto) 0.0 10^3/uL (0.0-0.1) 04/04/23 03:59 Nucleated RBC % (auto) 0.2 % 04/04/23 03:59 Nucleated RBCs # 0.0 /100WBC 04/04/23 03:59 Sodium 144 mmol/L (136-145) 04/04/23 03:59 Potassium 3.3 mmol/L (3.5-5.1) L 04/04/23 03:59 Chloride 103 mmol/L (98-107) 04/04/23 03:59 Carbon Dioxide 31 mmol/L (22-29) H 04/04/23 03:59 Anion Gap 13.3 (5-19) 04/04/23 03:59 BUN 17 mg/dL (6-20) 04/04/23 03:59 Creatinine 0.9 mg/dL (0.7-1.2) 04/04/23 03:59 GFR Calculation 92.1 mL/min (90-130) 04/04/23 03:59 Glucose 59 mg/dL (65-115) L 04/04/23 03:59 POC Glucose 140 mg/dL (70-110) H 04/04/23 14:27 Calculated Osmolality 297 mOsm/kg (285-295) H 04/04/23 03:59 Calcium 9.1 mg/dL (8.5-10.5) 04/04/23 03:59 Urine Color Yellow (Yellow) 04/04/23 04:44 Urine Appearance Clear (CLEAR) 04/04/23 04:44 Urine pH 5 (5-7) 04/04/23 04:44 Ur Specific [place] 1.020 (1.005-1.030) 04/04/23 04:44 Urine Protein Trace (Negative) 04/04/23 04:44 Urine Glucose (UA) 4+ (Normal) H 04/04/23 04:44 Urine Ketones 1+ (Negative) H 04/04/23 04:44 Urine Blood Neg (Negative) 04/04/23 04:44 Urine Nitrate Negative (Negative) 04/04/23 04:44 Urine Bilirubin Neg (Negative) 04/04/23 04:44 Urine Urobilinogen Neg mg/dL (Negative) 04/04/23 04:44 Ur Leukocyte Esterase Negative (Negative) 04/04/23 04:44 Urine RBC None /hpf (0-2) 04/04/23 04:44 Urine WBC None /hpf (0-5) 04/04/23 04:44 Ur Squamous Epith Cells None /hpf (0-5) 04/04/23 04:44 Amorphous Sediment Not Reportable 04/04/23 04:44 Urine Bacteria Trace /hpf (NONE) 04/04/23 04:44 Urine Mucus Trace /hpf 04/04/23 04:44 Discharge Plan Discharge Patient Disposition: Placed in Observation Admit Provider: Flip Foster Clinical Impression: Hypoglycemia due to insulin Discharge Diet: Diabetic Discharge Activity: Resume usual activity and Increase activity as tolerated Coding Level of Care Code ED Hazard Mitigation Officer for Chg Fwd Documented by User: Deep SwannDO 04/04/23 11:47 HPI - General Adult General: Chief complaint: Recheck/Abnormal Lab/Rx Stated complaint: hypoglycemia Time Seen by Provider: 04/04/23 03:43 PFSH ED PFSH: Medical History Bipolar 1 disorder Fracture of triquetrum Hyperlipidemia Hypertension Other reactions to severe stress Peripheral neuropathy Psychiatric care Pulmonary embolism Type 2 diabetes mellitus Surgical History History of appendectomy Social History Smoking and tobacco status: current every day smoker e-cigarettes Alcohol intake: current Alcohol intake frequency: few times a month Substance/Drug Use: never Marital status: Single Course Vital Signs: Vital signs: Vital Signs Temperature 97.8 F 04/04/23 03:43 Pulse Rate 93 04/04/23 16:02 Respiratory Rate 18 04/04/23 07:00 Blood Pressure 118/78 04/04/23 16:02 Pulse Oximetry 93 04/04/23 16:02 Oxygen Delivery Me thod Room Air 04/04/23 14:00 MDM - General Adult Medical Decision Making Patient presents to the ER during the weight shifter with complaints of hypoglycemia. Patient is on insulin. 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 Blood sugar stays low. Patient was placed on D10 at 100 mL/h then raised to 150 mL/h and blood sugar stayed low. Dr. Foster was consulted and agreed for inpatient admission to the ICU and hourly blood sugar checks while on D10. Differential Diagnosis Hyperglycemia Lab Data 04/04/23 03:59 04/04/23 03:59 Radiology Impressions Chest X-Ray 04/04/23 03:59 IMPRESSION: No acute findings. Laboratory Results WBC 12.1 10^3/uL (4.0-10.0) H 04/04/23 03:59 RBC 5.73 10^6/uL (4.1-5.3) H 04/04/23 03:59 Hgb 16.0 g/dL (11.7-16.6) 04/04/23 03:59 Hct 50.9 % (42.0-52.0) 04/04/23 03:59 MCV 88.8 fl (80-94) 04/04/23 03:59 MCH 27.9 pg (28.0-34.0) L 04/04/23 03:59 MCHC 31.4 g/dL (30.0-36.0) 04/04/23 03:59 RDW 13.8 % (12.1-15.1) 04/04/23 03:59 Plt Count 248 10^3/cmm (130-400) 04/04/23 03:59 MPV 10.1 fL (7.4-10.4) 04/04/23 03:59 Neut % (Auto) 64.7 % 04/04/23 03:59 Lymph % (Auto) 26.2 % 04/04/23 03:59 [place] % (Auto) 6.7 % 04/04/23 03:59 Eos % (Auto) 0.9 % 04/04/23 03:59 Baso % (Auto) 0.3 % 04/04/23 03:59 Neut # (Auto) 7.82 10^3/uL (1.8-7.7) H 04/04/23 03:59 Lymph # (Auto) 3.2 10^3/uL (0.8-4.8) 04/04/23 03:59 [place] # (Auto) 0.8 10^3/uL (0.2-0.9) 04/04/23 03:59 Eos # (Auto) 0.1 10^3/uL (0.0-0.8) 04/04/23 03:59 Baso # (Auto) 0.0 10^3/uL (0.0-0.1) 04/04/23 03:59 Nucleated RBC % (auto) 0.2 % 04/04/23 03:59 Nucleated RBCs # 0.0 /100WBC 04/04/23 03:59 Sodium 144 mmol/L (136-145) 04/04/23 03:59 Potassium 3.3 mmol/L (3.5-5.1) L 04/04/23 03:59 Chloride 103 mmol/L (98-107) 04/04/23 03:59 Carbon Dioxide 31 mmol/L (22-29) H 04/04/23 03:59 Anion Gap 13.3 (5-19) 04/04/23 03:59 BUN 17 mg/dL (6-20) 04/04/23 03:59 Creatinine 0.9 mg/dL (0.7-1.2) 04/04/23 03:59 GFR Calculation 92.1 mL/min (90-130) 04/04/23 03:59 Glucose 59 mg/dL (65-115) L 04/04/23 03:59 POC Glucose 140 mg/dL (70-110) H 04/04/23 14:27 Calculated Osmolality 297 mOsm/kg (285-295) H 04/04/23 03:59 Calcium 9.1 mg/dL (8.5-10.5) 04/04/23 03:59 Urine Color Yellow (Yellow) 04/04/23 04:44 Urine Appearance Clear (CLEAR) 04/04/23 04:44 Urine pH 5 (5-7) 04/04/23 04:44 Ur Specific [place] 1.020 (1.005-1.030) 04/04/23 04:44 Urine Protein Trace (Negative) 04/04/23 04:44 Urine Glucose (UA) 4+ (Normal) H 04/04/23 04:44 Urine Ketones 1+ (Negative) H 04/04/23 04:44 Urine Blood Neg (Negative) 04/04/23 04:44 Urine Nitrate Negative (Negative) 04/04/23 04:44 Urine Bilirubin Neg (Negative) 04/04/23 04:44 Urine Urobilinogen Neg mg/dL (Negative) 04/04/23 04:44 Ur Leukocyte Esterase Negative (Negative) 04/04/23 04:44 Urine RBC None /hpf (0-2) 04/04/23 04:44 Urine WBC None /hpf (0-5) 04/04/23 04:44 Ur Squamous Epith Cells None /hpf (0-5) 04/04/23 04:44 Amorphous Sediment Not Reportable 04/04/23 04:44 Urine Bacteria Trace /hpf (NONE) 04/04/23 04:44 Urine Mucus Trace /hpf 04/04/23 04:44 Discharge Plan Discharge Patient Disposition: Placed in Observation Admit Provider: [place],Flip C Clinical Impression: Hypoglycemia due to insulin Discharge Diet: Diabetic Discharge Activity: Resume usual activity and Increase activity as tolerated Coding Level of Care Code ED Hazard Mitigation Officer for Dasha Nix
--- NOTE | 2023-04-04 03:59 | XRR_ITS ---
PROCEDURE INFORMATION: Exam: XR Chest Exam date and time: 04/04/2023 4:04 AM Age: 42 years old Clinical indication: Other: Tachycardia; Additional info: Tachycardia, possible loc TECHNIQUE: Imaging protocol: Radiologic exam of the chest. Views: 1 view. COMPARISON: CR (CHEST, ) 03/30/2023 2:02 AM FINDINGS: Lungs: There is no consolidation. Pleural spaces: There is no pleural effusion or pneumothorax. Heart/Mediastinum: The cardiac silhouette is within normal limits of size given AP technique. Bones/joints: Bones are unremarkable. XR/XR chest 1V portable [id number] IMPRESSION: No acute findings.
--- NOTE | 2023-04-04 04:06 | ECG_ITS ---
[facility] Test Date: 2023-04-04 Pat Name: Zaire Nassar Department: Room: Gender: Male Hide Dropper: : 1980 Requested By: Ra Boyd Order Number: [id number] Russell MD: Migdalia Chavez M.D. Measurements Intervals [place] Rate: 123 P: 0 [place]: 0 QRS: -25 QRSD: 109 T: 32 QT: 316 QTc: 453 Interpretive Statements SINUS TACHYCARDIA POSSIBLE ANTERIOR MYOCARDIAL INFARCTION , OF INDETERMINATE AGE [30 ms Q WAVE IN V3/V4, OR R < 0.2 mV IN V4] Compared to ECG 03/30/2023 02:11:09 Atrial abnormality no longer present Myocardial infarct finding still present Electronically Signed On 04-04-2023 8:12:25 CDT by Migdalia Chavez M.D. [email or web address]
[2023-04-04 04:12] LABS: Basophils % 0.3 %; Eosinophils # 0.1 10^3/uL (0.0-0.8); Eosinophils % 0.9 %; Hematocrit 50.9 % (42.0-52.0); Lymphocytes # 3.2 10^3/uL (0.8-4.8); Lymphocytes % 26.2 %; Mean Corpuscular HGB Conc 31.4 g/dL (30.0-36.0); Mean Corpuscular Hemoglobin 27.9 pg (28.0-34.0); Mean Corpuscular Volume 88.8 fl (80-94); Mean Platelet Volume 10.1 fL (7.4-10.4); Monocytes # 0.8 10^3/uL (0.2-0.9); Monocytes % 6.7 %; Neutrophils # 7.82 10^3/uL (1.8-7.7); Neutrophils % 64.7 %; Nucleated Red Blood Cells % 0.2 %; Platelet Count 248 10^3/cmm (130-400); Red Blood Count 5.73 10^6/uL (4.1-5.3); Red Cell Distribution Width 13.8 % (12.1-15.1); White Blood Count 12.1 10^3/uL (4.0-10.0)
[2023-04-04] MEDS: sodium chloride 0.9% 1,000 ML 999 ML IV (04:19)
--- NOTE | 2023-04-04 04:23 | PC.NURSE ---
accu check 72
[2023-04-04 04:25] LABS: Anion Gap 13.3 (5-19); Blood Urea Nitrogen 17 mg/dL (6-20); Calcium 9.1 mg/dL (8.5-10.5); Carbon Dioxide 31 mmol/L (22-29); Chloride 103 mmol/L (98-107); Glomerular Filtration Rate 92.1 mL/min (90-130); Glucose 59 mg/dL (65-115); Osmolality Calculated 297 mOsm/kg (285-295); Potassium 3.3 mmol/L (3.5-5.1); Sodium 144 mmol/L (136-145)
[2023-04-04] MEDS: potassium chloride ER 20 mEq Tablet 40 MEQ PO (04:42)
[2023-04-04 05:12] LABS: Add Urine Microscopic? YES; Bacteria Urine TRACE /hpf; Bilirubin Urine Neg (Negative); Blood Urine Neg (Negative); Glucose Urine UA 4+ (Normal); Ketones Urine 1+ (Negative); Leukocyte Esterase Urine Negative (Negative); Mucus Urine TRACE /hpf; Nitrate Urine Negative (Negative); Protein Urine Trace (Negative); Urine Appearance Clear (CLEAR); Urine Color Yellow (Yellow); Urobilinogen Urine Neg (Negative); pH Urine 5 (5-7)
[2023-04-04 05:13] LABS: Add Urine Culture? No
--- NOTE | 2023-04-04 05:24 | PC.NURSE ---
bg 63
[2023-04-04 06:45] LABS: Glucose Point of Care 59 mg/dL (70-110)
[2023-04-04 07:03] LABS: Glucose Point of Care 58 mg/dL (70-110)
[2023-04-04] MEDS: dextrose 10% 1,000 ML 100 ML IV (07:08)
[2023-04-04 08:24] LABS: Glucose Point of Care 87 mg/dL (70-110)
[2023-04-04] MEDS: dextrose 10% 1,000 ML 150 ML IV (08:46)
[2023-04-04 10:41] LABS: Glucose Point of Care 106 mg/dL (70-110)
[2023-04-04 12:01] LABS: Glucose Point of Care 83 mg/dL (70-110)
--- NOTE | 2023-04-04 12:06 | PC.PHAR ---
PTS MAR FROM FACILITY DOES NOT SHOW PT TAKING ABILIFY 15MG DAILY- PTS CAREGIVER STS HE IS NOT TAKING THIS MED- EXT MED LIST SHOWS LAST FILLED 03/22/23 30 DS 15 MG DAILY
[2023-04-04] MEDS: diazePAM 5 mg Tablet PO (12:17)
--- NOTE | 2023-04-04 13:05 | P.HP_ITS ---
Providers/Chief Complaint Admitting Physician: Flip Foster MD Primary Care Provider: Blair Cheatham MD Chief Complaint: hypoglycemia History of Present Illness Zaire Nassar is a 42 year old male presenting to the emergency department with caregiver with concern of hypoglycemia. He has spent 7 hours in the ER, and is requiring D10 W. He last took his insulin last night, and did not take any medicines yet this morning. He reports he feels fine currently. It is related to me from his caregiver that his sugar has been quite low lately, but usually comes up with them increasing intake. No recent illnesses. Blood sugars have been in the 50s on arrival. According to history he was found sleeping on the ground at the home he stays at with blood sugar in the 50s. Patient is a poor historian. Correlating history obtained through caregiver. Review of Systems General: Reports: 10 or more systems reviewed and unremarkable except in HPI and below Const: Denies: fever(s), chills, fatigue or malaise Card: Denies: chest pain Resp: Denies: dyspnea Medications/Allergies Home Medications Medication Instructions Recorded Confirmed Last Taken Type aspirin 81 mg tablet,delayed 81 mg PO DAILY 10/11/22 04/04/23 04/03/23 History release atorvastatin 40 mg tablet 40 mg PO BEDTIME 10/11/22 04/04/23 04/03/23 History calcium carbonate 215 mg calcium 215 mg PO BID 10/11/22 04/04/23 Unknown History (500 mg) chewable tablet (Antacid (calcium carbonate)) empagliflozin 25 mg tablet 25 mg PO DAILY 10/11/22 04/04/23 04/03/23 History (Jardiance) gabapentin 300 mg capsule 300 mg PO BID 10/11/22 04/04/23 04/03/23 History (Neurontin) metformin 500 mg tablet,extended 1,000 mg PO BID 10/11/22 04/04/23 04/03/23 History release 24hr albuterol sulfate 90 mcg/actuation 2 inh inhalation Q4H PRN shortness 11/14/22 04/04/23 03/13/23 09:00 Rx aerosol inhaler of breath or wheezing #8.5 grams apixaban 5 mg tablet (Eliquis) 5 mg PO BID #180 tabs 01/04/23 04/04/23 04/03/23 Rx liraglutide 0.6 mg/0.1 mL (18 mg/3 1.8 mg SUBCUT DAILY 03/14/23 04/04/23 04/03/23 History mL) subcutaneous pen injector (Victoza 2-Philippe) bismuth subsalicylate 262 mg/15 mL See Rx Instructions .Route .COMPLEX 03/16/23 04/04/23 Unknown History oral suspension (Stomach Relief) ferrous sulfate 325 mg (65 mg 325 mg PO DAILY 03/16/23 04/04/23 04/03/23 History iron) tablet (iron) insulin glargine 100 unit/mL (3 50 unit SUBCUT BEDTIME 03/16/23 04/04/23 04/03/23 History mL) subcutaneous pen (Lantus Solostar U-100 Insulin) insulin lispro 100 unit/mL See Rx Instructions .Route .COMPLEX 03/16/23 04/04/23 04/03/23 History subcutaneous pen (Humalog KwikPen (U-100) Insulin) irbesartan 150 mg tablet 150 mg PO DAILY 03/16/23 04/04/23 04/03/23 History promethazine-DM 6.25 mg-15 mg/5 mL 5 ml PO Q6H PRN Cough 03/16/23 04/04/23 04/03/23 History oral syrup diazepam 5 mg tablet 5 mg PO TID 30 days #90 tabs 03/27/23 04/04/23 04/03/23 Rx divalproex 500 mg tablet,extended 2,000 mg PO BEDTIME 30 days #120 03/27/23 04/04/23 04/03/23 Rx release 24 hr tabs haloperidol 5 mg tablet 5 mg PO .qhs 30 days #30 tabs 03/27/23 04/04/23 04/03/23 Rx hydroxyzine HCl 50 mg tablet 50 mg PO QID PRN anxiety or sleep 03/27/23 04/04/23 Unknown Rx 30 days #120 tabs venlafaxine 37.5 mg 37.5 mg PO DAILY 30 days #30 caps 03/27/23 04/04/23 04/03/23 Rx capsule,extended release 24 hr venlafaxine 75 mg capsule,extended 75 mg PO DAILY 30 days #30 caps 03/27/23 04/04/23 04/03/23 Rx release 24 hr clonazepam 1 mg disintegrating 1 mg PO BEDTIME 04/04/23 04/04/23 04/03/23 History tablet prazosin 1 mg capsule 1 mg PO BEDTIME 04/04/23 04/04/23 04/03/23 History vit C 250 mg-vit E 90 mg-zinc 40 1 tab PO BID 04/04/23 04/04/23 04/03/23 History mg-copper 1 [id number] capsule (PreserVision AREDS-2) Allergies Allergy/AdvReac Type Severity Reaction Status Date / Time No Known Allergies Allergy Verified 04/04/23 03:50 PFSH Acute PFSH: Medical History (Updated 04/04/23 @ 13:11 by Flip Foster MD) Bipolar 1 disorder Fracture of triquetrum Hyperlipidemia Hypertension Other reactions to severe stress Peripheral neuropathy Psychiatric care Pulmonary embolism Type 2 diabetes mellitus Surgical History (Updated 04/04/23 @ 13:08 by Flip Foster MD) History of appendectomy Social History Smoking and tobacco status: current every day smoker e-cigarettes Alcohol intake: current Alcohol intake frequency: few times a month Substance/Drug Use: never Marital status: Single Vitals/I&O/Wt Last Vital Signs Temp 97.8 F 04/04/23 03:43 Pulse 112 H 04/04/23 12:11 Resp 18 04/04/23 07:00 BP 131/83 04/04/23 12:11 Pulse Ox 93 04/04/23 12:11 O2 Del Method Room Air 04/04/23 12:11 04/03/23 04/04/23 04/04/23 22:59 06:59 14:59 Intake Total 1050 / 1050 616.667 / 616.667 Balance 1050 / 1050 616.667 / 616.667 Weight last 48 hrs Weight 136.078 kg Physical Exam Narrative: General exam is white male, no distress, conversant HEENT: Atraumatic and normocephalic. Oropharynx clear Neck is supple no lymphadenopathy thyromegaly Cardiovascular regular rate and rhythm without murmur Lungs clear no wheezing or crackles Abdomen is soft nontender positive bowel sounds. No obvious organomegaly exams deferred Extremities no cyanosis clubbing edema, cap refill brisk Skin no rash Neuro no obvious focal deficits. Data 04/04/23 03:59 04/04/23 03:59 Other Labs: Calcium 9.1 Urinalysis unrevealing Chest x-ray by my read no acute findings EKG demonstrates sinus tachycardia, left axis deviation, poor R wave progression. Unchanged from previous EKGs. A&P Assessment and plan (1) Hypoglycemia due to insulin: Patient has significant hypoglycemia. This was symptomatic from my understan tavo prior to arrival. He is currently on D10W, at 150 cc an hour A diet was ordered, and the patient reports he did not eat much of it as it is not what he ordered, nor what he likes. Caregiver agrees. Hold all diabetic medication Wean D10W as tolerated Get a diet ordered currently, regular, with foods the patient may enjoy Possible discharge later today if hypoglycemia resolves off D10W When resuming home medications will l reduce medication significantly to prevent recurrent hypoglycemia Check blood sugars hourly. (2) Hypokalemia: Supplemented in the emergency department Repeat tomorrow if patient is still in the hospital. Plan Multiple other medical problems as outlined in past medical history Full code Low risk for DVT, no prophylaxis needed Attestations 2 Medical Necessity Statement*: Will need less than 2 midnight stay for evaluation and treatment of hypoglycemia. Diagnoses Hypoglycemia due to insulin E16.0; T38.3X5A Hypokalemia E87.6 Time Spent (min) 49
[2023-04-04 13:19] LABS: Glucose Point of Care 172 mg/dL (70-110)
[2023-04-04 14:31] LABS: Glucose Point of Care 140 mg/dL (70-110)
--- NOTE | 2023-04-04 15:11 | P.DS_ITS ---
Discharge Providers Date of Admission: 04/04/23 15:01 Date of Discharge: April 04, 2023 Attending Provider at Admission: Flip Foster MD Attending Provider at Discharge: Flip Foster MD Primary Care Provider: Blair Cheatham MD Diagnoses at Discharge Discharge Diagnosis (1) Hypoglycemia due to insulin: Status: Acute (2) Hypokalemia: Status: Acute Reason for Visit Reason for Visit: hypoglycemia Hospital Course Hospital Course Zaire is a 42-year-old white male who presented to the hospital with low blood sugar. They had some difficulty keeping it up in the emergency department and he ended up being on a D10 W drip at 150 cc an hour. He reports he was provided food, but he did not like it and did not eat very much. He has underlying mental health disorder, diabetes, hypertension, hyperlipidemia, past history of pulmonary embolism among other medical diagnoses. He is on multiple medicines for diabetes including Jardiance, Lantus, Humalog, Victoza, metformin. After my evaluation I provided him with food, which he enjoyed and taper down his glucose drip. After discontinuation of his glucose drip, his sugar remained stable without significant hypoglycemia so he was discharged home to have close follow- up with his primary care provider. He will hold his diabetes medication today. Tomorrow he will not take any Humalog, will take half his dose of Lantus at night, resume his metformin Victoza and Jardiance. He will call his primary care provider for any persistent elevations of sugar over 250, and any hypoglycemia. The patient, and his caregiver agreed with the plans. Physical Exam Narrative: General exam no distress Neck is supple Cardiovascular regular in rhythm Lungs clear Abdomen is soft positive bowel sounds Extremities no cyanosis clubbing edema Neuro no focal deficits Discharge Data Studies Completed and Pending Completed Studies During Hospitalization Category Date Time Status XR chest 1V portable [id number] Stat Exams 04/04/23 03:59 Completed Radiology Impressions Chest X-Ray 04/04/23 03:59 IMPRESSION: No acute findings. Laboratory Results WBC 12.1 10^3/uL (4.0-10.0) H 04/04/23 03:59 RBC 5.73 10^6/uL (4.1-5.3) H 04/04/23 03:59 Hgb 16.0 g/dL (11.7-16.6) 04/04/23 03:59 Hct 50.9 % (42.0-52.0) 04/04/23 03:59 MCV 88.8 fl (80-94) 04/04/23 03:59 MCH 27.9 pg (28.0-34.0) L 04/04/23 03:59 MCHC 31.4 g/dL (30.0-36.0) 04/04/23 03:59 RDW 13.8 % (12.1-15.1) 04/04/23 03:59 Plt Count 248 10^3/cmm (130-400) 04/04/23 03:59 MPV 10.1 fL (7.4-10.4) 04/04/23 03:59 Neut % (Auto) 64.7 % 04/04/23 03:59 Lymph % (Auto) 26.2 % 04/04/23 03:59 [place] % (Auto) 6.7 % 04/04/23 03:59 Eos % (Auto) 0.9 % 04/04/23 03:59 Baso % (Auto) 0.3 % 04/04/23 03:59 Neut # (Auto) 7.82 10^3/uL (1.8-7.7) H 04/04/23 03:59 Lymph # (Auto) 3.2 10^3/uL (0.8-4.8) 04/04/23 03:59 [place] # (Auto) 0.8 10^3/uL (0.2-0.9) 04/04/23 03:59 Eos # (Auto) 0.1 10^3/uL (0.0-0.8) 04/04/23 03:59 Baso # (Auto) 0.0 10^3/uL (0.0-0.1) 04/04/23 03:59 Nucleated RBC % (auto) 0.2 % 04/04/23 03:59 Nucleated RBCs # 0.0 /100WBC 04/04/23 03:59 Sodium 144 mmol/L (136-145) 04/04/23 03:59 Potassium 3.3 mmol/L (3.5-5.1) L 04/04/23 03:59 Chloride 103 mmol/L (98-107) 04/04/23 03:59 Carbon Dioxide 31 mmol/L (22-29) H 04/04/23 03:59 Anion Gap 13.3 (5-19) 04/04/23 03:59 BUN 17 mg/dL (6-20) 04/04/23 03:59 Creatinine 0.9 mg/dL (0.7-1.2) 04/04/23 03:59 GFR Calculation 92.1 mL/min (90-130) 04/04/23 03:59 Glucose 59 mg/dL (65-115) L 04/04/23 03:59 POC Glucose 140 mg/dL (70-110) H 04/04/23 14:27 Calculated Osmolality 297 mOsm/kg (285-295) H 04/04/23 03:59 Calcium 9.1 mg/dL (8.5-10.5) 04/04/23 03:59 Urine Color Yellow (Yellow) 04/04/23 04:44 Urine Appearance Clear (CLEAR) 04/04/23 04:44 Urine pH 5 (5-7) 04/04/23 04:44 Ur Specific [place] 1.020 (1.005-1.030) 04/04/23 04:44 Urine Protein Trace (Negative) 04/04/23 04:44 Urine Glucose (UA) 4+ (Normal) H 04/04/23 04:44 Urine Ketones 1+ (Negative) H 04/04/23 04:44 Urine Blood Neg (Negative) 04/04/23 04:44 Urine Nitrate Negative (Negative) 04/04/23 04:44 Urine Bilirubin Neg (Negative) 04/04/23 04:44 Urine Urobilinogen Neg mg/dL (Negative) 04/04/23 04:44 Ur Leukocyte Esterase Negative (Negative) 04/04/23 04:44 Urine RBC None /hpf (0-2) 04/04/23 04:44 Urine WBC None /hpf (0-5) 04/04/23 04:44 Ur Squamous Epith Cells None /hpf (0-5) 04/04/23 04:44 Amorphous Sediment Not Reportable 04/04/23 04:44 Urine Bacteria Trace /hpf (NONE) 04/04/23 04:44 Urine Mucus Trace /hpf 04/04/23 04:44 Vitals Last Vital Signs Temp 97.8 F 04/04/23 03:43 Pulse 110 H 04/04/23 14:00 Resp 18 04/04/23 07:00 BP 131/70 04/04/23 14:00 Pulse Ox 93 04/04/23 14:00 O2 Del Method Room Air 04/04/23 14:00 Discharge Plan Discharge Patient Disposition: Home Condition: Stable Prescriptions: Continued Eliquis 5 mg tablet 5 mg PO BID Qty: 180 3RF gabapentin [Neurontin] 300 mg capsule 300 mg PO BID atorvastatin 40 mg tablet 40 mg PO BEDTIME metformin 500 mg tablet extended release 24hr 1,000 mg PO BID aspirin 81 mg tablet,delayed release (DR/EC) 81 mg PO DAILY Jardiance 25 mg tablet 25 mg PO DAILY Antacid (calcium carbonate) 215 mg calcium (500 mg) tablet,chewable 215 mg PO BID diazepam 5 mg tablet 5 mg PO TID 30 Days Qty: 90 3RF divalproex 500 mg tablet extended release 24 hr 2,000 mg PO BEDTIME 30 Days Qty: 120 4RF haloperidol 5 mg tablet 5 mg PO .qhs 30 Days Qty: 30 3RF hydroxyzine HCl 50 mg tablet 50 mg PO QID PRN (Reason: anxiety or sleep) 30 Days Qty: 120 3RF venlafaxine 75 mg capsule,extended release 24hr 75 mg PO DAILY 30 Days Qty: 30 3RF Rx Instructions: take with 37.5mg cap for daily total of 112.5 mg venlafaxine 37.5 mg capsule,extended release 24hr 37.5 mg PO DAILY 30 Days Qty: 30 3RF Rx Instructions: take with 75mg cap for daily total of 112.5mg albuterol sulfate 90 mcg/actuation HFA aerosol inhaler 2 inh inhalation Q4H PRN (Reason: shortness of breath or wheezing) Qty: 8.5 0RF Victoza 2-Philippe 0.6 mg/0.1 mL (18 mg/3 mL) Pen Injector 1.8 mg SUBCUT DAILY promethazine-DM 6.25-15 mg/5 mL Syrup 5 ml PO Q6H PRN (Reason: Cough) ferrous sulfate [iron] 325 mg (65 mg iron) Tablet 325 mg PO DAILY bismuth subsalicylate [Stomach Relief] 262 mg/15 mL suspension See Rx Instructions .ROUTE .COMPLEX Rx Instructions: 1 mL PO NEEDED irbesartan 150 mg tablet 150 mg PO DAILY prazosin 1 mg capsule 1 mg PO BEDTIME clonazepam 1 mg tablet,disintegrating 1 mg PO BEDTIME PreserVision AREDS-2 250-90-40-1 mg Capsule 1 tab PO BID Changed insulin glargine [Lantus Solostar U-100 Insulin] 100 unit/mL (3 mL) insulin pen 25 unit SUBCUT BEDTIME Qty: 15 0RF Discontinued insulin lispro [Humalog KwikPen Insulin] 100 unit/mL insulin pen See Rx Instructions .ROUTE .COMPLEX Rx Instructions: 15 unit subcutaneously PER SLIDING SCALE THREE TIMES DAILY Discharge Orders: Discharge Order (Routine); Ordered 04/04/23 Ordered By: Flip Foster Referrals: Blair Cheatham MD [Primary Care Provider] - 4-7 days Discharge Diet: Diabetic Discharge Activity: Resume usual activity and Increase activity as tolerated Patient Instructions: Opioid Safety Activity Restrictions/Additional Instructions: Do not take Metformin, Victoza, Jardiance until 6/. Reduce Lantus to 25 units at night. Do not take until 04/05 Continue to check blood sugar QAC and HS. Do not skip any meals. Call physician if blood sugar consistently above 250, or recurrence of any low sugars. Patient's Health Concerns: Low blood sugar Assessment: Low blood sugar Plan of Treatment: Adjust home medication. Discharge Attestations Time Spent in Discharge Care*: greater than 30 min Quality Metrics Clinical Quality Measures [ No reported AMI, CVA or VTE this stay] Coding Level of Care Code Acute Code for Chg Fwd Diagnoses Hypoglycemia due to insulin E16.0; T38.3X5A Hypokalemia E87.6
[2023-04-04 15:37] LABS: Glucose Point of Care 145 mg/dL (70-110)
== END 2023-04-04 16:06 | disposition home or self-care (01) | DRG 639 ==
LOC: ER 11:47 → ER IP 15:02
PROVIDERS: Admitting Provider Internal Medicine; Emergency Provider Emergency Medicine; PCP Family Medicine; Visit Provider Internal Medicine
DX: E11.649 Type 2 diabetes mellitus with hypoglycemia without coma (principal); E11.42 Type 2 diabetes mellitus with diabetic polyneuropathy; I10 Essential (primary) hypertension; E78.5 Hyperlipidemia, unspecified; Z86.711 Personal history of pulmonary embolism; Z79.84 Long term (current) use of oral hypoglycemic drugs; Z79.4 Long term (current) use of insulin; Z79.01 Long term (current) use of anticoagulants; Z79.82 Long term (current) use of aspirin; Z79.51 Long term (current) use of inhaled steroids; F31.9 Bipolar disorder, unspecified; F17.290 Nicotine dependence, other tobacco product, uncomplicated; E87.6 Hypokalemia
CPT/HCPCS: 36416; 71045; 80048; 81001; 82962; 85025; 93005; 99285; J7030

== ENCOUNTER 2023-04-09 21:38 | Emergency (ER) | payer MEDICARE, MEDICAID, SELFPAY ==
[2023-04-09 21:41] VITALS: BMI 42.7
[2023-04-09 21:43] VITALS: BP 141/85; PULSE 138; RESP 16; TEMP 37.1; O2SAT 98
--- NOTE | 2023-04-09 21:50 | W.ED.PSYCHS ---
HPI - Psych General: Chief Complaint: Psychiatric Symptoms Stated Complaint: Stress Time Seen by Provider: 04/09/23 21:43 Source: patient and EMS Mode of arrival: EMS Limitations: no limitations History of Present Illness: 42-year-old male has a long history of depression states that he just found out today that his girlfriend was diagnosed with colon cancer 2 weeks ago he states that its caused him a lot of stress and increased depression he denies any suicidal or homicidal ideation he states that he is feeling very stressed out currently. Associated symptoms: Reports depression; Deny homicidal ideation or suicidal ideation Review of Systems Const: Denies: fever(s), chills, body aches or change in appetite ENMT: Denies: throat pain or dental pain Card: Denies: chest pain Resp: Denies: dyspnea GI: Denies: abdominal pain, nausea, vomiting or diarrhea Musc: Denies: neck pain or back pain Skin/Breast: Denies: rash Neuro: Denies: headache(s) Psych: Reports: depression; Denies: suicidal ideation or homicidal ideation PFS ED PFSH: Medical History Bipolar 1 disorder Fracture of triquetrum Hyperlipidemia Hypertension Other reactions to severe stress Peripheral neuropathy Psychiatric care Pulmonary embolism Type 2 diabetes mellitus Surgical History (Updated 04/04/23 @ 13:08 by Flip Foster MD) History of appendectomy Social History Smoking and tobacco status: current every day smoker e-cigarettes Alcohol intake: current Alcohol intake frequency: few times a month Substance/Drug Use: never Marital status: Single Physical Exam Const: COMMON NORMALS: no acute distress, patient oriented x3 and healthy appearing HENMT: COMMON NORMALS: normocephalic and atraumatic HEAD & SCALP: normocephalic and atraumatic Neck/C-Spine: COMMON NORMALS: full ROM and supple Chest: COMMONS NORMALS: normal inspection of the chest Resp: COMMON NORMALS: normal respiratory effort, No retractions, No use of accessory muscles and clear to auscultation bilaterally AUSCULTATION: clear to auscultation bilaterally Cardio: COMMON NORMALS: regular rate, regular rhythm and No murmurs present (Cardio) RATE: regular rate RHYTHM: regular rhythm GI: INSPECTION: Yes normal to inspection Extremity: COMMON NORMALS: normal to inspection and full ROM Neuro: COMMON NORMALS: patient oriented x3, moves all extremities and no focal motor deficits Psych: COMMON NORMALS: mental status grossly normal, Normal thought process present and cooperative THOUGHT PROCESS: Normal thought process present Skin: COMMON NORMALS: no rashes or lesions noted and no wounds GENERAL SKIN EXAM: no rashes or lesions noted Course Vital Signs: Vital signs: Vital Signs Temperature 98.8 F 04/09/23 21:43 Pulse Rate 138 H 04/09/23 21:43 Respiratory Rate 16 04/09/23 21:43 Blood Pressure 141/85 04/09/23 21:43 Pulse Oximetry 98 04/09/23 21:43 Oxygen Delivery Me thod Room Air 04/09/23 21:43 MDM - Psych Medical Decision Making Patient presents here with depression he is not suicidal or homicidal patient was evaluated by Dr. Huynh of psychiatry who agrees with me that he does not require inpatient admission he is not suicidal or homicidal not imminent threat to himself he is stable for discharge he is to follow-up and return if worsening he understands agrees to plan. Discharge Plan Discharge Patient Disposition: Home Clinical Impression: Depression Condition: Stable Prescriptions: No Action Eliquis 5 mg tablet 5 mg PO BID Qty: 180 3RF gabapentin [Neurontin] 300 mg capsule 300 mg PO BID atorvastatin 40 mg tablet 40 mg PO BEDTIME metformin 500 mg tablet extended release 24hr 1,000 mg PO BID aspirin 81 mg tablet,delayed release (DR/EC) 81 mg PO DAILY Jardiance 25 mg tablet 25 mg PO DAILY Antacid (calcium carbonate) 215 mg calcium (500 mg) tablet,chewable 215 mg PO BID diazepam 5 mg tablet 5 mg PO TID 30 Days Qty: 90 3RF divalproex 500 mg tablet extended release 24 hr 2,000 mg PO BEDTIME 30 Days Qty: 120 4RF haloperidol 5 mg tablet 5 mg PO .qhs 30 Days Qty: 30 3RF hydroxyzine HCl 50 mg tablet 50 mg PO QID PRN (Reason: anxiety or sleep) 30 Days Qty: 120 3RF venlafaxine 75 mg capsule,extended release 24hr 75 mg PO DAILY 30 Days Qty: 30 3RF Rx Instructions: take with 37.5mg cap for daily total of 112.5 mg venlafaxine 37.5 mg capsule,extended release 24hr 37.5 mg PO DAILY 30 Days Qty: 30 3RF Rx Instructions: take with 75mg cap for daily total of 112.5mg albuterol sulfate 90 mcg/actuation HFA aerosol inhaler 2 inh inhalation Q4H PRN (Reason: shortness of breath or wheezing) Qty: 8.5 0RF Victoza 2-Philippe 0.6 mg/0.1 mL (18 mg/3 mL) Pen Injector 1.8 mg SUBCUT DAILY promethazine-DM 6.25-15 mg/5 mL Syrup 5 ml PO Q6H PRN (Reason: Cough) ferrous sulfate [iron] 325 mg (65 mg iron) Tablet 325 mg PO DAILY bismuth subsalicylate [Stomach Relief] 262 mg/15 mL suspension See Rx Instructions .ROUTE .COMPLEX Rx Instructions: 1 mL PO NEEDED irbesartan 150 mg tablet 150 mg PO DAILY prazosin 1 mg capsule 1 mg PO BEDTIME clonazepam 1 mg tablet,disintegrating 1 mg PO BEDTIME PreserVision AREDS-2 250-90-40-1 mg Capsule 1 tab PO BID Lantus Solostar U-100 Insulin 100 unit/mL (3 mL) insulin pen 25 unit SUBCUT BEDTIME Qty: 15 0RF Discharge Orders: Discharge ED (Routine); Ordered 04/09/23 Ordered By: Wale Vyas Referrals: Blair Cheatham MD [Primary Care Provider] - 1-3 days Discharge Diet: Advance as tolerated Discharge Activity: Resume usual activity Patient Instructions: Depression (ED) Coding Level of Care Code ED Medicine Assistant for Dasha Nix
[2023-04-09 22:40] VITALS: BP 149/97; PULSE 128; RESP 18; O2SAT 93
== END 2023-04-09 22:41 | disposition home or self-care (01) ==
PROVIDERS: Emergency Provider Emergency Medicine; PCP Family Medicine
DX: F32.A Depression, unspecified (principal)
CPT/HCPCS: 99283

== ENCOUNTER 2023-04-11 02:41 | Inpatient (IN) | payer MEDICARE, MEDICAID, SELFPAY ==
[2023-04-11 02:45] VITALS: BMI 41.7
[2023-04-11 02:47] VITALS: BP 144/97; PULSE 119; RESP 16; TEMP 37.1; O2SAT 94
--- NOTE | 2023-04-11 02:56 | ED.C_ITS ---
HPI - Psych General: Chief Complaint: Psychiatric Symptoms Stated Complaint: SI Time Seen by Provider: 04/11/23 02:48 Source: patient Mode of arrival: ambulatory Limitations: no limitations History of Present Illness: 42-year-old male who is very well-known to the ER seen here yesterday for depression after he found out his girlfriend has cancer he was not suicidal at this time he was discharged he states that he is got much worse today he is now having suicidal thoughts he is having thoughts of cutting himself or laying in front of a train to kill himself and came back. Associated symptoms: Reports depression and suicidal ideation Review of Systems Const: Denies: fever(s), chills, body aches or change in appetite Eyes: Denies: blurry vision or eye discomfort ENMT: Denies: throat pain or dental pain Card: Denies: chest pain Resp: Denies: dyspnea GI: Denies: abdominal pain, nausea, vomiting or diarrhea : Denies: dysuria Musc: Denies: neck pain or back pain Skin/Breast: Denies: rash Neuro: Denies: headache(s) Psych: Reports: depression and suicidal ideation [facility] ED PFSH: Medical History Bipolar 1 disorder Fracture of triquetrum Hyperlipidemia Hypertension Other reactions to severe stress Peripheral neuropathy Psychiatric care Pulmonary embolism Type 2 diabetes mellitus Surgical History (Updated 04/04/23 @ 13:08 by Flip Foster MD) History of appendectomy Social History Smoking and tobacco status: current every day smoker e-cigarettes Alcohol intake: current Alcohol intake frequency: few times a month Substance/Drug Use: never Marital status: Single Physical Exam Const: COMMON NORMALS: no acute distress, patient oriented x3 and healthy appearing HENMT: COMMON NORMALS: normocephalic and atraumatic HEAD & SCALP: normocephalic and atraumatic Eye: COMMON NORMALS: Equal, round and reactive pupils present and EOMs intact bilaterally PUPIL: Yes Equal, round and reactive pupils present Neck/C-Spine: COMMON NORMALS: full ROM and supple Chest: COMMONS NORMALS: normal inspection of the chest and normal palpation of entire chest wall Resp: COMMON NORMALS: normal respiratory effort, No retractions, No use of accessory muscles and clear to auscultation bilaterally AUSCULTATION: clear to auscultation bilaterally Cardio: COMMON NORMALS: regular rate, regular rhythm and No murmurs present (Cardio) RATE: regular rate RHYTHM: regular rhythm GI: COMMON NORMALS: Normal to inspection, nondistended, normoactive bowel sounds present, Soft to palpation, non-tender and no masses PALPATION: Yes S oft to palpation Extremity: COMMON NORMALS: normal to inspection and full ROM Neuro: COMMON NORMALS: patient oriented x3, moves all extremities and no focal motor deficits Psych: COMMON NORMALS: mental status grossly normal, Normal thought process present and cooperative MOOD & AFFECT: Yes depressed mood THOUGHT PROCESS: Normal thought process present THOUGHT CONTENT: Yes Suicidality present Skin: COMMON NORMALS: no rashes or lesions noted and no wounds GENERAL SKIN EXAM: no rashes or lesions noted Course Vital Signs: Vital signs: Vital Signs Temperature 98.8 F 04/11/23 02:47 Pulse Rate 119 H 04/11/23 02:47 Respiratory Rate 16 04/11/23 02:47 Blood Pressure 144/97 04/11/23 02:47 Pulse Oximetry 94 04/11/23 02:47 Oxygen Delivery Me thod Room Air 04/11/23 02:47 MDM - Psych Medical Decision Making Patient presents for suicidal ideation spoke to Dr. Huynh will admit at this time he is medically cleared. Discharge Plan Discharge Condition: Stable Prescriptions: No Action Eliquis 5 mg tablet 5 mg PO BID Qty: 180 3RF gabapentin [Neurontin] 300 mg capsule 300 mg PO BID atorvastatin 40 mg tablet 40 mg PO BEDTIME metformin 500 mg tablet extended release 24hr 1,000 mg PO BID aspirin 81 mg tablet,delayed release (DR/EC) 81 mg PO DAILY Jardiance 25 mg tablet 25 mg PO DAILY Antacid (calcium carbonate) 215 mg calcium (500 mg) tablet,chewable 215 mg PO BID diazepam 5 mg tablet 5 mg PO TID 30 Days Qty: 90 3RF divalproex 500 mg tablet extended release 24 hr 2,000 mg PO BEDTIME 30 Days Qty: 120 4RF haloperidol 5 mg tablet 5 mg PO .qhs 30 Days Qty: 30 3RF hydroxyzine HCl 50 mg tablet 50 mg PO QID PRN (Reason: anxiety or sleep) 30 Days Qty: 120 3RF venlafaxine 75 mg capsule,extended release 24hr 75 mg PO DAILY 30 Days Qty: 30 3RF Rx Instructions: take with 37.5mg cap for daily total of 112.5 mg venlafaxine 37.5 mg capsule,extended release 24hr 37.5 mg PO DAILY 30 Days Qty: 30 3RF Rx Instructions: take with 75mg cap for daily total of 112.5mg albuterol sulfate 90 mcg/actuation HFA aerosol inhaler 2 inh inhalation Q4H PRN (Reason: shortness of breath or wheezing) Qty: 8.5 0RF Victoza 2-Philippe 0.6 mg/0.1 mL (18 mg/3 mL) Pen Injector 1.8 mg SUBCUT DAILY promethazine-DM 6.25-15 mg/5 mL Syrup 5 ml PO Q6H PRN (Reason: Cough) ferrous sulfate [iron] 325 mg (65 mg iron) Tablet 325 mg PO DAILY bismuth subsalicylate [Stomach Relief] 262 mg/15 mL suspension See Rx Instructions .ROUTE .COMPLEX Rx Instructions: 1 mL PO NEEDED irbesartan 150 mg tablet 150 mg PO DAILY prazosin 1 mg capsule 1 mg PO BEDTIME clonazepam 1 mg tablet,disintegrating 1 mg PO BEDTIME PreserVision AREDS-2 250-90-40-1 mg Capsule 1 tab PO BID Lantus Solostar U-100 Insulin 100 unit/mL (3 mL) insulin pen 25 unit SUBCUT BEDTIME Qty: 15 0RF Referrals: Blair Cheatham MD [Primary Care Provider] - Coding Level of Care Code ED [employer] Agent for Dasha Nix
[2023-04-11 03:02] LABS: Basophils % 0.5 %; Eosinophils # 0.2 10^3/uL (0.0-0.8); Eosinophils % 2.3 %; Hematocrit 52.9 % (42.0-52.0); Hemoglobin 16.9 g/dL (11.7-16.6); Lymphocytes # 3.8 10^3/uL (0.8-4.8); Lymphocytes % 48.1 %; Mean Corpuscular HGB Conc 31.9 g/dL (30.0-36.0); Mean Corpuscular Hemoglobin 28.1 pg (28.0-34.0); Mean Platelet Volume 10.2 fL (7.4-10.4); Monocytes # 0.5 10^3/uL (0.2-0.9); Monocytes % 6.6 %; Neutrophils # 3.37 10^3/uL (1.8-7.7); Neutrophils % 42.1 %; Nucleated Red Blood Cells % 0.3 %; Platelet Count 217 10^3/cmm (130-400); Red Blood Count 6.01 10^6/uL (4.1-5.3); Red Cell Distribution Width 14.5 % (12.1-15.1)
--- NOTE | 2023-04-11 03:12 | PC.NURSE ---
Pt served copy of 96 rights. Pt stated that he doesn't feel that 96 hours is long enough, I want to get help this time .
[2023-04-11 03:16] LABS: Alanine Aminotransferase 28 U/L (0-41); Albumin Level 4.1 g/dL (3.5-5.2); Alkaline Phosphatase 83 U/L (40-130); Anion Gap 16.2 (5-19); Aspartate Amino Transferase 11 U/L (0-40); Blood Urea Nitrogen 10 mg/dL (6-20); Calcium 9.2 mg/dL (8.5-10.5); Carbon Dioxide 28 mmol/L (22-29); Chloride 98 mmol/L (98-107); Globulin 2.6 g/dL (1.3-4.6); Glomerular Filtration Rate 81.6 mL/min (90-130); Glucose 200 mg/dL (65-115); Osmolality Calculated 291 mOsm/kg (285-295); Potassium 4.2 mmol/L (3.5-5.1); Sodium 138 mmol/L (136-145); Total Bilirubin 0.2 mg/dL (0.15-1.2); Total Protein 6.7 g/dL (6.6-8.7)
[2023-04-11 03:18] LABS: Acetaminophen < 5.0 ug/mL (10-30); Salicylate < 0.3 mg/dL (3-10)
[2023-04-11 03:19] LABS: Alcohol Level < 10 mg/dL (0-10)
[2023-04-11 03:35] VITALS: BP 134/86; PULSE 114; RESP 20; TEMP 36.7; O2SAT 93
--- NOTE | 2023-04-11 04:26 | PC.NURSE ---
Pt arrived to NPU with security and RN at side. Pt affect is guarded and flat. Admission assessment completed. Pt provided a drink, chips, and a sandwich per his request.
[2023-04-11 06:00] VITALS: BP 126/79; PULSE 96; RESP 20; TEMP 36.4; O2SAT 93
[2023-04-11 08:38] LABS: Glucose Point of Care 180 mg/dL (70-110)
[2023-04-11 10:02] VITALS: BP 126/79
[2023-04-11] MEDS: losartan 50 mg Tablet PO (10:02)
[2023-04-11] MEDS: ferrous sulfate EC 325 mg Tablet PO (10:02)
[2023-04-11] MEDS: venlafaxine ER (24HR) 75 mg Capsule PO (10:03)
[2023-04-11] MEDS: venlafaxine ER (24HR) 37.5 mg Capsule PO (10:03)
[2023-04-11] MEDS: metformin XR 500 MG Tablet 1000 MG PO (10:03)
[2023-04-11] MEDS: gabapentin 300 mg Capsule PO ×2 (10:04→17:59)
[2023-04-11] MEDS: diazePAM 5 mg Tablet PO ×3 (10:04→20:11)
[2023-04-11 12:11] LABS: Glucose Point of Care 212 mg/dL (70-110)
[2023-04-11 12:22] LABS: Amphetamines Screen Urine Negative (Negative); Barbiturates Screen Urine Negative (Negative); Benzodiazepines Screen Urine Positive (Negative); Cocaine Screen Urine Negative (Negative); Opiate Screen Urine Negative (Negative); PCP Screen Urine Negative (Negative); THC Screen Urine Negative (Negative)
[2023-04-11 14:00] VITALS: BP 150/89; PULSE 116; RESP 18; TEMP 36.7; O2SAT 93
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
[2023-04-11 17:39] LABS: Glucose Point of Care 169 mg/dL (70-110)
[2023-04-11 19:57] LABS: Glucose Point of Care 246 mg/dL (70-110)
[2023-04-11] MEDS: insulin glargine 100 units/1 mL 50 UNIT SUBCUT (20:11)
[2023-04-11] MEDS: divalproex ER 500 mg Tablet (24H) 2000 MG PO (20:11)
[2023-04-11] MEDS: haloperidol 5 mg Tablet PO (20:11)
[2023-04-11] MEDS: atorvastatin 40 mg Tablet PO (20:11)
[2023-04-11 21:01] VITALS: BP 125/85; PULSE 104; RESP 18; TEMP 36.5; O2SAT 94
[2023-04-12 06:00] VITALS: RESP 16
[2023-04-12] MEDS: gabapentin 300 mg Capsule PO (10:32)
[2023-04-12] MEDS: diazePAM 5 mg Tablet PO ×2 (10:32→14:18)
[2023-04-12] MEDS: venlafaxine ER (24HR) 150 mg Capsule PO (10:32)
[2023-04-12] MEDS: ferrous sulfate EC 325 mg Tablet PO (10:33)
[2023-04-12] MEDS: losartan 50 mg Tablet PO (10:33)
[2023-04-12] MEDS: metformin XR 500 MG Tablet 1000 MG PO (10:33)
--- NOTE | 2023-04-12 11:21 | DCPLANNER ---
IMM was printed and explained to pt and ISL and copy was placed in discharge packet and pts file.
[2023-04-12 14:00] VITALS: BP 136/99; PULSE 126; RESP 16; TEMP 36.6; O2SAT 94
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
[2023-04-12 14:45] VITALS: BP 136/99; PULSE 126; RESP 16; TEMP 36.6; O2SAT 94
--- NOTE | 2023-04-12 15:59 | PC.NURSE ---
writtten discharge instruction discussed and left with [facility] facility and patient. pt stated understanding and compliance. 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
[2023-04-12 19:50] LABS: Glucose Point of Care 361 mg/dL (70-110)
== END 2023-04-12 16:00 | disposition home or self-care (01) | DRG 881 ==
LOC: ER 03:14 → NP 03:17
PROVIDERS: Admitting Provider Psychiatry & Neurology Psychiatry; Emergency Provider Emergency Medicine; PCP Family Medicine; Visit Provider Psychiatry & Neurology Psychiatry
DX: F32.A Depression, unspecified (principal); R45.851 Suicidal ideations; E78.5 Hyperlipidemia, unspecified; I10 Essential (primary) hypertension; E11.42 Type 2 diabetes mellitus with diabetic polyneuropathy; Z79.84 Long term (current) use of oral hypoglycemic drugs; F17.290 Nicotine dependence, other tobacco product, uncomplicated; F63.81 Intermittent explosive disorder; Z79.82 Long term (current) use of aspirin; Z86.711 Personal history of pulmonary embolism; Z79.01 Long term (current) use of anticoagulants; F43.10 Post-traumatic stress disorder, unspecified; F70 Mild intellectual disabilities; Z91.51 Personal history of suicidal behavior; Z62.812 Personal history of neglect in childhood; Z62.810 Personal history of physical and sexual abuse in childhood
CPT/HCPCS: 36416; 80053; 80306; 80307; 82962; 85025; 96372; 97150; 97165; 99238; 99283; 99285; J1815

== ENCOUNTER 2023-04-14 22:57 | Emergency (ER) | payer MEDICARE, MEDICAID, SELFPAY ==
[2023-04-14 23:02] VITALS: BP 145/94; PULSE 122; RESP 14; TEMP 36.7; O2SAT 94
[2023-04-14 23:23] LABS: Glucose Point of Care 312 mg/dL (70-110)
[2023-04-14 23:38] VITALS: BP 147/103; PULSE 120; RESP 16; O2SAT 90
[2023-04-14 23:38] LABS: Basophils % 0.4 %; Eosinophils # 0.1 10^3/uL (0.0-0.8); Eosinophils % 1.5 %; Hematocrit 53.1 % (42.0-52.0); Hemoglobin 17.1 g/dL (11.7-16.6); Lymphocytes # 3.1 10^3/uL (0.8-4.8); Lymphocytes % 40.5 %; Mean Corpuscular HGB Conc 32.2 g/dL (30.0-36.0); Mean Corpuscular Hemoglobin 27.9 pg (28.0-34.0); Mean Corpuscular Volume 86.6 fl (80-94); Mean Platelet Volume 10.2 fL (7.4-10.4); Monocytes # 0.5 10^3/uL (0.2-0.9); Monocytes % 6.2 %; Neutrophils # 3.85 10^3/uL (1.8-7.7); Nucleated Red Blood Cells % 0 %; Platelet Count 196 10^3/cmm (130-400); Red Blood Count 6.13 10^6/uL (4.1-5.3); Red Cell Distribution Width 14.1 % (12.1-15.1); White Blood Count 7.6 10^3/uL (4.0-10.0)
[2023-04-14 23:47] LABS: Glucose Point of Care 284 mg/dL (70-110)
[2023-04-14 23:57] LABS: Alanine Aminotransferase 14 U/L (0-41); Albumin Level 4.4 g/dL (3.5-5.2); Alkaline Phosphatase 91 U/L (40-130); Anion Gap 17.1 (5-19); Aspartate Amino Transferase 10 U/L (0-40); Blood Urea Nitrogen 12 mg/dL (6-20); Calcium 9.7 mg/dL (8.5-10.5); Carbon Dioxide 28 mmol/L (22-29); Chloride 95 mmol/L (98-107); Globulin 2.6 g/dL (1.3-4.6); Glomerular Filtration Rate 92.1 mL/min (90-130); Glucose 308 mg/dL (65-115); Osmolality Calculated 293 mOsm/kg (285-295); Potassium 4.1 mmol/L (3.5-5.1); Sodium 136 mmol/L (136-145); Total Bilirubin 0.2 mg/dL (0.15-1.2)
[2023-04-15] MEDS: insulin regular-human 100 units/1 mL 5 UNIT IVP (00:01)
--- NOTE | 2023-04-15 00:03 | XRR_ITS ---
PROCEDURE INFORMATION: Exam: XR Chest Exam date and time: 04/15/2023 12:14 AM Age: 42 years old Clinical indication: Shortness of breath; Additional info: Spob TECHNIQUE: Imaging protocol: Radiologic exam of the chest. Views: 1 view. COMPARISON: CR (CHEST, ) 04/04/2023 4:04 AM FINDINGS: Lungs: The lungs are clear and free of effusion. Pleural spaces: Unremarkable. No pleural effusion. No pneumothorax. Heart/Mediastinum: The heart size is normal. Bones/joints: Incidental thoracic spurs. XR/XR chest 1V portable [id number] IMPRESSION: No change, lungs clear
--- NOTE | 2023-04-15 00:03 | ECG_ITS ---
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 Measurements Intervals [place] Rate: 119 P: 29 SC: 182 QRS: -16 QRSD: 101 T: 20 QT: 293 QTc: 413 Interpretive Statements SINUS TACHYCARDIA INDETERMINATE AXIS ANTEROSEPTAL MYOCARDIAL INFARCTION , OF INDETERMINATE AGE [40+ ms Q WAVE IN V1-V4] Compared to ECG 04/04/2023 04:06:33 Indeterminate axis now present Myocardial infarct finding still present Electronically Signed On 04-15-2023 5:26:12 CDT by Migdalia Chavez M.D. [id number]
[2023-04-15 00:33] LABS: D Dimer <= 0.27 ug/mIFEU (0-0.59); Troponin(5th) Baseline 9 ng/L (0-15)
--- NOTE | 2023-04-15 00:35 | W.ED.DIZZY ---
HPI - Dizziness General: Chief Complaint: Dizziness Stated Complaint: Blodd Pressure High,Sugar High Time Seen by Provider: 04/14/23 23:09 Source: patient Mode of arrival: ambulatory Limitations: no limitations History of Present Illness: HPI Narrative: 42-year-old male is here with hyperglycemia he is very well-known to the ER blood sugar was running in the 500s at his [facility] they did give him insulin before he came he also has had hypertension with a history of hypertension. He has had some mild chest pain he states he fell and hit his head yesterday but denies any loss of consciousness he denies any headache currently. He has a small abrasion to his forehead denies neck pain. Denies any vomiting or diarrhea. Associated symptoms: Denies chest pain, chills, headache(s), nausea or vomiting Review of Systems Const: Denies: fever(s), chills, body aches or change in appetite Eyes: Denies: blurry vision ENMT: Denies: throat pain or dental pain Card: Denies: chest pain Resp: Denies: dyspnea GI: Denies: abdominal pain, nausea or vomiting Musc: Denies: neck pain or back pain Skin/Breast: Denies: rash Neuro: Denies: headache(s) PFSH ED PFSH: Medical History Bipolar 1 disorder Fracture of triquetrum Hyperlipidemia Hypertension Other reactions to severe stress Peripheral neuropathy Psychiatric care Pulmonary embolism Type 2 diabetes mellitus Surgical History History of appendectomy Social History Smoking and tobacco status: current every day smoker e-cigarettes Alcohol intake: current Alcohol intake frequency: few times a month Substance/Drug Use: never Marital status: Single Physical Exam Const: COMMON NORMALS: no acute distress, patient oriented x3 and healthy appearing HENMT: COMMON NORMALS: normocephalic and atraumatic HEAD & SCALP: normocephalic and atraumatic OTHER: Small abrasion to forehead Eye: COMMON NORMALS: Equal, round and reactive pupils present and EOMs intact bilaterally PUPIL: Yes Equal, round and reactive pupils present Neck/C-Spine: COMMON NORMALS: full ROM and supple Chest: COMMONS NORMALS: normal inspection of the chest and normal palpation of entire chest wall Resp: COMMON NORMALS: normal respiratory effort, No retractions, No use of accessory muscles and clear to auscultation bilaterally AUSCULTATION: clear to auscultation bilaterally Cardio: COMMON NORMALS: regular rate, regular rhythm and No murmurs present (Cardio) RATE: regular rate RHYTHM: regular rhythm GI: COMMON NORMALS: Normal to inspection, nondistended, normoactive bowel sounds present, Soft to palpation, non-tender and no masses PALPATION: Yes Soft to palpation Extremity: COMMON NORMALS: normal to inspection and full ROM Neuro: COMMON NORMALS: patient oriented x3, moves all extremities and no focal motor deficits Psych: COMMON NORMALS: mental status grossly normal, Normal thought process present and cooperative THOUGHT PROCESS: Normal thought process present Skin: COMMON NORMALS: no rashes or lesions noted and no wounds GENERAL SKIN EXAM: no rashes or lesions noted Course Vital Signs: Vital signs: Vital Signs Temperature 98.0 F 04/14/23 23:02 Pulse Rate 120 H 04/14/23 23:38 Respiratory Rate 16 04/14/23 23:38 Blood Pressure 147/103 04/14/23 23:38 Pulse Oximetry 90 04/14/23 23:38 Oxygen Delivery Me thod Room Air 04/14/23 23:02 MDM - Dizziness Medical Decision Making Patient presents here with hyperglycemia that is improved his blood pressure is improved here as well he had complained of some dyspnea his D-dimer and troponin are negative chest x-ray is normal he did hit his head yesterday has no headache no loss of consciousness abrasion to the head he does not require head CT at this time he is stable for discharge he is to follow-up with PCP and return if worsening. Medical Records I reviewed the patient's medical records. Lab Data I reviewed the patient's lab results. 04/14/23 23:30 04/14/23 23:30 Radiology Impressions Chest X-Ray 04/15/23 00:03 IMPRESSION: No change, lungs clear Laboratory Results WBC 7.6 10^3/uL (4.0-10.0) 04/14/23 23:30 RBC 6.13 10^6/uL (4.1-5.3) H 04/14/23 23:30 Hgb 17.1 g/dL (11.7-16.6) H 04/14/23: Hct 53.1 % (42.0-52.0) H 04/14/23: MCV 86.6 fl (80-94) 04/14/23 MCH 27.9 pg (28.0-34.0) L 04/14/23: MCHC 32.2 g/dL (30.0-36.0) 04/14/23 RDW 14.1 % (12.1-15.1) 04/14/23 Plt Count 196 10^3/cmm (130-400) 04/14/23 MPV 10.2 fL (7.4-10.4) 04/14/23 Neut % (Auto) 51.0 % 04/14/23 Lymph % (Auto) 40.5 % 04/14/23 [place] % (Auto) 6.2 % 04/14/23: Eos % (Auto) 1.5 % 04/14/23 Baso % (Auto) 0.4 % 04/14/23 Neut # (Auto) 3.85 10^3/uL (1.8-7.7) 04/14/23 Lymph # (Auto) 3.1 10^3/uL (0.8-4.8) 04/14/23 [place] # (Auto) 0.5 10^3/uL (0.2-0.9) 04/14/23: Eos # (Auto) 0.1 10^3/uL (0.0-0.8) 04/14/23 Baso # (Auto) 0.0 10^3/uL (0.0-0.1) 04/14/23 Nucleated RBC % (auto) 0 % 04/14/23 Nucleated RBCs # 0.0 /100WBC 04/14/23 D-Dimer <= 0.27 ug/mIFEU (0-0.59) 04/14/23 Sodium 136 mmol/L (136-145) 04/14/23 Potassium 4.1 mmol/L (3.5-5.1) 04/14/23 23:30 Chloride 95 mmol/L (98-107) L 04/14/23 23:30 Carbon Dioxide 28 mmol/L (22-29) 04/14/23 23:30 Anion Gap 17.1 (5-19) 04/14/23 23:30 BUN 12 mg/dL (6-20) 04/14/23 23:30 Creatinine 0.9 mg/dL (0.7-1.2) 04/14/23 23:30 GFR Calculation 92.1 mL/min (90-130) 04/14/23 23:30 Glucose 308 mg/dL (65-115) H 04/14/23 23:30 POC Glucose 238 mg/dL (70-110) H 04/15/23 00:36 Calculated Osmolality 293 mOsm/kg (285-295) 04/14/23 23:30 Calcium 9.7 mg/dL (8.5-10.5) 04/14/23 23:30 Total Bilirubin 0.2 mg/dL (0.15-1.2) 04/14/23 23:30 AST 10 U/L (0-40) 04/14/23 23:30 ALT 14 U/L (0-41) 04/14/23 23:30 Alkaline Phosphatase 91 U/L (40-130) 04/14/23 23:30 Troponin T Baseline 9 ng/L (0-15) 04/14/23 23:30 Total Protein 7.0 g/dL (6.6-8.7) 04/14/23 23:30 Albumin 4.4 g/dL (3.5-5.2) 04/14/23 23:30 Globulin 2.6 g/dL (1.3-4.6) 04/14/23 23:30 EKG Data EKG 1: I personally reviewed and interpreted this EKG as follows: EKG interpretation date: 04/14/23 EKG interpretation time: 23:39 Interpretation: sinus tach hr [address] or t wave abnormalities qrs 101 qtc 364 Discharge Plan Discharge Patient Disposition: Home Clinical Impression: Hypertension, Hyperglycemia Condition: Stable Prescriptions: No Action gabapentin [Neurontin] 300 mg capsule 300 mg PO BID atorvastatin 40 mg tablet 40 mg PO BEDTIME metformin 500 mg tablet extended release 24hr 1,000 mg PO DAILY diazepam 5 mg tablet 5 mg PO TID 30 Days Qty: 90 3RF divalproex 500 mg tablet extended release 24 hr 2,000 mg PO BEDTIME 30 Days Qty: 120 4RF haloperidol 5 mg tablet 5 mg PO .qhs 30 Days Qty: 30 3RF hydroxyzine HCl 50 mg tablet 50 mg PO QID PRN (Reason: anxiety or sleep) 30 Days Qty: 120 3RF venlafaxine 37.5 mg capsule,extended release 24hr 37.5 mg PO DAILY 30 Days Qty: 30 3RF Rx Instructions: take with 75mg cap for daily total of 112.5mg Lantus Solostar U-100 Insulin 100 unit/mL (3 mL) insulin pen 50 unit SUBCUT BEDTIME venlafaxine 150 mg Capsule,Extended Release 24hr 150 mg PO DAILY 30 Days Qty: 30 1RF Victoza 2-Philippe 0.6 mg/0.1 mL (18 mg/3 mL) Pen Injector 1.8 mg SUBCUT DAILY ferrous sulfate [iron] 325 mg (65 mg iron) Tablet 325 mg PO DAILY bismuth subsalicylate [Stomach Relief] 262 mg/15 mL suspension See Rx Instructions .ROUTE .COMPLEX Rx Instructions: 1 mL PO NEEDED irbesartan 150 mg tablet 150 mg PO DAILY Discharge Orders: Discharge ED (Routine); Ordered 04/15/23 Ordered By: Wale Vyas Referrals: Blair Cheatham MD [Primary Care Provider] - 1-3 days Discharge Diet: Advance as tolerated Discharge Activity: Resume usual activity Patient Instructions: Hyperglycemia, Hypertension (ED) Coding Level of Care Code ED Sewage Reticulation Drafting Officer for Dasha Nix
[2023-04-15 00:39] LABS: Glucose Point of Care 238 mg/dL (70-110)
[2023-04-15 00:56] VITALS: BP 115/78; PULSE 119; RESP 12; O2SAT 91
== END 2023-04-15 00:57 | disposition home or self-care (01) ==
PROVIDERS: Emergency Provider Emergency Medicine; PCP Family Medicine
DX: E11.65 Type 2 diabetes mellitus with hyperglycemia (principal); I10 Essential (primary) hypertension; S00.81XA Abrasion of other part of head, initial encounter; W19.XXXA Unspecified fall, initial encounter; Y92.199 Unspecified place in other specified residential institution as the place of occurrence of the external cause; F17.290 Nicotine dependence, other tobacco product, uncomplicated; Z79.4 Long term (current) use of insulin
CPT/HCPCS: 36415; 36416; 71045; 80053; 82962; 84484; 85025; 85378; 93005; 96374; 99285; J1815

== ENCOUNTER → 2023-04-24 13:49 | Outpatient (BNVA) | payer MEDICARE, MEDICAID, SELFPAY | PROVIDERS: PCP Family Medicine; Referring Provider Family Medicine; Visit Provider Internal Medicine | DX: E11.9 Type 2 diabetes mellitus without complications (principal); I10 Essential (primary) hypertension; E78.5 Hyperlipidemia, unspecified; Z79.4 Long term (current) use of insulin; Z79.84 Long term (current) use of oral hypoglycemic drugs; F31.9 Bipolar disorder, unspecified | CPT/HCPCS: 99204 ==

== ENCOUNTER 2023-05-01 20:18 | Emergency (ER) | payer MEDICARE, MEDICAID, SELFPAY ==
[2023-05-01 20:20] VITALS: BP 145/92; PULSE 115; RESP 18; TEMP 36.3; O2SAT 94; BMI 42.3
[2023-05-01 20:25] VITALS: PULSE 116; RESP 20; O2SAT 89
--- NOTE | 2023-05-01 20:39 | ED_ITS ---
HPI - Recheck/Abnormal Lab/Rx General: Chief Complaint: Recheck/Abnormal Lab/Rx Stated Complaint: HYPERGLYCEMIA Time Seen by Provider: 05/01/23 20:20 Source: EMS Mode of arrival: EMS Limitations: no limitations History of Present Illness: 42-year-old male here with EMS for hyperglycemia states that earlier today he did tripped down the stairs did hit his head he has a small abrasion to his forehead he denies any loss of conscious to need to me denies any syncope denies headache or neck pain. He states that tonight his blood sugars been running higher he does have a long history of hyperglycemia he is very well-known to ER has been seen here multiple times for same he has no other medical complaints at this time no vomiting no pain Review of Systems Const: Denies: fever(s), chills, body aches or change in appetite Eyes: Denies: blurry vision ENMT: Denies: throat pain or dental pain Card: Denies: chest pain Resp: Denies: dyspnea GI: Denies: abdominal pain, nausea, vomiting or diarrhea : Denies: dysuria Musc: Denies: neck pain or back pain Skin/Breast: Denies: rash Neuro: Denies: headache(s) Psych: Denies: depression PFSH ED PFSH: Medical History Bipolar 1 disorder Fracture of triquetrum Hyperlipidemia Hypertension Other reactions to severe stress Peripheral neuropathy Psychiatric care Pulmonary embolism Type 2 diabetes mellitus Surgical History History of appendectomy Social History Smoking and tobacco status: current every day smoker e-cigarettes Alcohol intake: current Alcohol intake frequency: few times a month Substance/Drug Use: never Marital status: Single Physical Exam Const: COMMON NORMALS: no acute distress, patient oriented x3 and healthy appearing HENMT: COMMON NORMALS: normocephalic; head/scalp not atraumatic (small abrasion to forehead no hematoma) HEAD & SCALP: normocephalic; not atraumatic (small abrasion to forehead no hematoma) Eye: COMMON NORMALS: Equal, round and reactive pupils present and EOMs intact bilaterally PUPIL: Yes Equal, round and reactive pupils present Neck/C-Spine: COMMON NORMALS: full ROM and supple CERVICAL SPINE: Yes cervical ROM normal and No pain with cervical ROM Chest: COMMONS NORMALS: normal inspection of the chest Resp: COMMON NORMALS: normal respiratory effort Cardio: COMMON NORMALS: regular rate, regular rhythm and No murmurs present (Cardio) RATE: regular rate RHYTHM: regular rhythm GI: INSPECTION: Yes normal to inspection Extremity: COMMON NORMALS: normal to inspection and full ROM Neuro: COMMON NORMALS: patient oriented x3, moves all extremities and no focal motor deficits Psych: COMMON NORMALS: mental status grossly normal, Normal thought process present and cooperative THOUGHT PROCESS: Normal thought process present Skin: COMMON NORMALS: no rashes or lesions noted and no wounds GENERAL SKIN EXAM: no rashes or lesions noted Course Vital Signs: Vital signs: Vital Signs Temperature 97.4 F L 05/01/23 20:20 Pulse Rate 116 H 05/01/23 20:25 Respiratory Rate 20 H 05/01/23 20:25 Blood Pressure 145/92 05/01/23 20:20 Pulse Oximetry 89 L 05/01/23 20:25 Oxygen Delivery Me thod Room Air 05/01/23 20:25 MDM - Recheck/Abnormal Lab/Rx Medical Decision Making Patient presents here with hyperglycemia his blood sugars improved his blood work here is all normal he did hit his head earlier today he has no signs of any major injury denies any headache he denies loss conscious and he does not require head CT at this time he is stable for discharge he is to follow-up with PCP and return if worsening. Medical Records I reviewed the patient's medical records. Lab Data I reviewed the patient's lab results. 05/01/23 20:32 05/01/23 20:32 Laboratory Results WBC 5.0 10^3/uL (4.0-10.0) 05/01/23 20:32 RBC 5.69 10^6/uL (4.1-5.3) H 05/01/23 20:32 Hgb 16.0 g/dL (11.7-16.6) 05/01/23 20:32 Hct 49.4 % (42.0-52.0) 05/01/23 20:32 MCV 86.8 fl (80-94) 05/01/23 20:32 MCH 28.1 pg (28.0-34.0) 05/01/23 20: MCHC 32.4 g/dL (30.0-36.0) 05/01/23 20: RDW 13.9 % (12.1-15.1) 05/01/23 20:32 Plt Count 213 10^3/cmm (130-400) 05/01/23 20: MPV 10.9 fL (7.4-10.4) H 05/01/23 20: Neut % (Auto) 43.4 % 05/01/23 20: Lymph % (Auto) 45.9 % 05/01/23 20: [place] % (Auto) 7.3 % 05/01/23: Eos % (Auto) 2.2 % 05/01/23: Baso % (Auto) 0.4 % 05/01/23: Neut # (Auto) 2.15 10^3/uL (1.8-7.7) 05/01/23 20: Lymph # (Auto) 2.3 10^3/uL (0.8-4.8) 05/01/23 20: [place] # (Auto) 0.4 10^3/uL (0.2-0.9) 05/01/23 20: Eos # (Auto) 0.1 10^3/uL (0.0-0.8) 05/01/23 20: Baso # (Auto) 0.0 10^3/uL (0.0-0.1) 05/01/23: Nucleated RBC % (auto) 0 % 05/01/23: Nucleated RBCs # 0.0 /100WBC 05/01/23 20:32 Sodium 134 mmol/L (136-145) L 05/01/23 20:32 Potassium 3.6 mmol/L (3.5-5.1) 05/01/23 20: Chloride 95 mmol/L (98-107) L 05/01/23 20: Carbon Dioxide 26 mmol/L (22-29) 05/01/23 20:32 Anion Gap 16.6 (5-19) 05/01/23 20: BUN 9 mg/dL (6-20) 05/01/23 20: Creatinine 0.8 mg/dL (0.7-1.2) 05/01/23 20:32 GFR Calculation 105.5 mL/min (90-130) 05/01/23 20:32 Glucose 420 mg/dL (65-115) H 05/01/23 20:32 POC Glucose 293 mg/dL (70-110) H 05/01/23 22:02 Calculated Osmolality 295 mOsm/kg (285-295) 05/01/23 20:32 Calcium 8.9 mg/dL (8.5-10.5) 05/01/23 20:32 Total Bilirubin 0.2 mg/dL (0.15-1.2) 05/01/23 20:32 AST 10 U/L (0-40) 05/01/23 20:32 ALT 17 U/L (0-41) 05/01/23 20:32 Alkaline Phosphatase 79 U/L (40-130) 05/01/23 20:32 Total Protein 6.0 g/dL (6.6-8.7) L 05/01/23 20:32 Albumin 4.0 g/dL (3.5-5.2) 05/01/23 20:32 Globulin 2.0 g/dL (1.3-4.6) 05/01/23 20:32 Discharge Plan Discharge Patient Disposition: Home Clinical Impression: Hyperglycemia Condition: Stable Prescriptions: No Action gabapentin [Neurontin] 300 mg capsule 300 mg PO BID atorvastatin 40 mg tablet 40 mg PO BEDTIME metformin 500 mg tablet extended release 24hr 1,000 mg PO DAILY insulin lispro [Humalog KwikPen Insulin] 100 unit/mL insulin pen 4 unit SUBCUT Q6H PRN (Reason: diabetes) 30 Days Qty: 15 0RF Rx Instructions: 4 units prn every 6hrs for BG above 400 Mounjaro 2.5 mg/0.5 mL pen injector 2.5 mg SUBCUT Q7D 30 Days Qty: 2.5 0RF Rx Instructions: 2.5mg weekly for 1month; 5mg weekly for 1month; 7.5mg weekly and continue Mounjaro 5 mg/0.5 mL pen injector 5 mg SUBCUT Q7D 30 Days Qty: 2.5 0RF Rx Instructions: 5mg weekly for 1 month then 7.5mg weekly and continue Mounjaro 7.5 mg/0.5 mL pen injector 7.5 mg SUBCUT Q7D 30 Days Qty: 2.5 0RF diazepam 5 mg tablet 5 mg PO TID 30 Days Qty: 90 3RF divalproex 500 mg tablet extended release 24 hr 2,000 mg PO BEDTIME 30 Days Qty: 120 4RF haloperidol 5 mg tablet 5 mg PO .qhs 30 Days Qty: 30 3RF hydroxyzine HCl 50 mg tablet 50 mg PO QID PRN (Reason: anxiety or sleep) 30 Days Qty: 120 3RF venlafaxine 37.5 mg capsule,extended release 24hr 37.5 mg PO DAILY 30 Days Qty: 30 3RF Rx Instructions: take with 75mg cap for daily total of 112.5mg aripiprazole 30 mg tablet 15 mg PO DAILY 30 Days Qty: 30 0RF Lantus Solostar U-100 Insulin 100 unit/mL (3 mL) insulin pen 50 unit SUBCUT BEDTIME venlafaxine 150 mg Capsule,Extended Release 24hr 150 mg PO DAILY 30 Days Qty: 30 1RF ferrous sulfate [iron] 325 mg (65 mg iron) Tablet 325 mg PO DAILY bismuth subsalicylate [Stomach Relief] 262 mg/15 mL suspension See Rx Instructions .ROUTE .COMPLEX Rx Instructions: 1 mL PO NEEDED irbesartan 150 mg tablet 150 mg PO DAILY Discharge Orders: Discharge ED (Routine); Ordered 05/01/23 Ordered By: Wale Vyas Referrals: Blair Cheatham MD [Primary Care Provider] - 1-3 days Discharge Diet: Advance as tolerated Discharge Activity: Resume usual activity Patient Instructions: Diabetic Hyperglycemia (ED) Coding Level of Care Code ED Contact Agent for Dasha Nix
--- NOTE | 2023-05-01 20:39 | ECG_ITS ---
[facility] Test Date: 2023-05-01 Pat Name: Zaire Nassar Department: Room: Gender: Male Alarm Mechanism Adjuster: : 1980 Requested By: Wale Vyas Order Number: [id number] Drew MD: Yina Lugo M.D. Measurements Intervals [place] Rate: 119 P: 39 AK: 177 QRS: 17 QRSD: 108 T: 31 QT: 310 QTc: 436 Interpretive Statements SINUS TACHYCARDIA INDETERMINATE AXIS ANTEROSEPTAL MYOCARDIAL INFARCTION , OF INDETERMINATE AGE [40+ ms Q WAVE IN V1-V4] Compared to ECG 04/14/2023 23:39:38 No significant changes Electronically Signed On 05-03-2023 10:04:45 CDT by Yina Lugo M.D. [id number]
[2023-05-01] MEDS: insulin regular-human 100 units/1 mL 10 UNIT IVP (20:53)
[2023-05-01] MEDS: sodium chloride 0.9% 500 ML 999 ML IV (20:54)
[2023-05-01 21:08] LABS: Basophils % 0.4 %; Eosinophils # 0.1 10^3/uL (0.0-0.8); Eosinophils % 2.2 %; Hematocrit 49.4 % (42.0-52.0); Lymphocytes # 2.3 10^3/uL (0.8-4.8); Lymphocytes % 45.9 %; Mean Corpuscular HGB Conc 32.4 g/dL (30.0-36.0); Mean Corpuscular Hemoglobin 28.1 pg (28.0-34.0); Mean Corpuscular Volume 86.8 fl (80-94); Mean Platelet Volume 10.9 fL (7.4-10.4); Monocytes # 0.4 10^3/uL (0.2-0.9); Monocytes % 7.3 %; Neutrophils # 2.15 10^3/uL (1.8-7.7); Neutrophils % 43.4 %; Nucleated Red Blood Cells % 0 %; Platelet Count 213 10^3/cmm (130-400); Red Blood Count 5.69 10^6/uL (4.1-5.3); Red Cell Distribution Width 13.9 % (12.1-15.1)
[2023-05-01 21:19] LABS: Glucose Point of Care 399 mg/dL (70-110)
[2023-05-01 21:25] VITALS: BP 127/87; PULSE 123; O2SAT 88
[2023-05-01 21:28] LABS: Glucose Point of Care 293 mg/dL (70-110)
[2023-05-01 21:34] LABS: Alanine Aminotransferase 17 U/L (0-41); Alkaline Phosphatase 79 U/L (40-130); Anion Gap 16.6 (5-19); Aspartate Amino Transferase 10 U/L (0-40); Blood Urea Nitrogen 9 mg/dL (6-20); Calcium 8.9 mg/dL (8.5-10.5); Carbon Dioxide 26 mmol/L (22-29); Chloride 95 mmol/L (98-107); Glomerular Filtration Rate 105.5 mL/min (90-130); Glucose 420 mg/dL (65-115); Osmolality Calculated 295 mOsm/kg (285-295); Potassium 3.6 mmol/L (3.5-5.1); Sodium 134 mmol/L (136-145); Total Bilirubin 0.2 mg/dL (0.15-1.2)
[2023-05-01 21:55] VITALS: BP 152/83; PULSE 117; O2SAT 90
[2023-05-01 22:04] LABS: Glucose Point of Care 293 mg/dL (70-110)
[2023-05-01 22:54] VITALS: BP 164/82; PULSE 106; RESP 20; O2SAT 94
== END 2023-05-01 22:29 | disposition home or self-care (01) ==
PROVIDERS: Emergency Provider Emergency Medicine; PCP Family Medicine
DX: E11.65 Type 2 diabetes mellitus with hyperglycemia (principal); Z79.4 Long term (current) use of insulin; Z79.84 Long term (current) use of oral hypoglycemic drugs; E78.5 Hyperlipidemia, unspecified; I10 Essential (primary) hypertension; F17.290 Nicotine dependence, other tobacco product, uncomplicated
CPT/HCPCS: 36416; 80053; 82962; 85025; 93005; 96361; 96374; 99284; J1815; J7040

== ENCOUNTER 2023-05-13 01:15 | Emergency (ER) | payer MEDICARE, SELFPAY ==
--- NOTE | 2023-05-13 01:20 | ED_ITS ---
HPI - General Adult General: Chief complaint: Recheck/Abnormal Lab/Rx Stated complaint: Blood Sugar Time Seen by Provider: 05/13/23 01:19 History of Present Illness: 42-year-old male patient resides in a residential facility and has diabetes which is insulin controlled. Patient takes Lantus 30 units at night, Humalog for high blood sugar, and metformin daily. Patient appears nontoxic. Staff were concerned due to patient's variability in his blood sugar ranging between 270 and 400. Patient denies any severe distress or discomfort. Review of Systems General: Reports: 10 or more systems reviewed and unremarkable except in HPI and below Endo: Reports: other (Elevated blood sugar) PFS ED PFSH: Medical History Bipolar 1 disorder Fracture of triquetrum Hyperlipidemia Hypertension Other reactions to severe stress Peripheral neuropathy Psychiatric care Pulmonary embolism Type 2 diabetes mellitus Surgical History History of appendectomy Social History Smoking and tobacco status: current every day smoker e-cigarettes Alcohol intake: current Alcohol intake frequency: few times a month Substance/Drug Use: never Marital status: Single Physical Exam Const: COMMON NORMALS: alert HENMT: COMMON NORMALS: normocephalic HEAD & SCALP: normocephalic Neck/C-Spine: COMMON NORMALS: full ROM Resp: COMMON NORMALS: normal respiratory effort and clear to auscultation bilaterally AUSCULTATION: clear to auscultation bilaterally Cardio: RATE: tachycardic GI: COMMON NORMALS: Soft to palpation PALPATION: Yes Soft to palpation Extremity: COMMON NORMALS: normal to inspection Neuro: SENSORIUM/ORIENTATION: Yes alert Skin: COMMON NORMALS: turgor normal GENERAL SKIN EXAM: turgor normal Course Vital Signs: Vital signs: Vital Signs Temperature 97.7 F 05/13/23 01:25 Pulse Rate 118 H 05/13/23 01:25 Respiratory Rate 18 05/13/23 01:25 Blood Pressure 148/82 05/13/23 01:25 Pulse Oximetry 91 05/13/23 01:25 Oxygen Delivery Me thod Room Air 05/13/23 01:25 MDM - General Adult Medical Decision Making Patient was brought in by EMS for concerns of elevated blood glucose. Patient resides at a assisted living facility and he has been having blood sugars ranging between the upper 200s in the low 400s. Patient appears nontoxic. Patient reports no fever or chills or shortness of breath. Skin is warm and dry. Vital signs are normal except for some elevated blood pressure. Differential diagnosis includes but not limited to uncontrolled diabetes, worried well, electrolyte disturbance. CBC was unremarkable. CMP noted a sodium of 127, potassium 4.1, creatinine 1.4, glucose 426, anion gap of 16. Feel the patient might be a little bit dehydrated was given 1 L of IV fluids. The patient will be discharged home. Patient had received 4 units of insulin prior to arrival to the ER no further insulin was recommended at this time to avoid hypoglycemia event in the morning. Recommend follow-up with primary care in the morning to discuss increasing Lantus to 35 units or 40 units for better c ontrol of blood glucose. Caregiver staff reported understanding of care plan and need for follow-up or return to the ER. Lab Data 05/13/23 01:23 05/13/23 01: Laboratory Results WBC 6.0 10^3/uL (4.0-10.0) 05/13/23 01: RBC 6.02 10^6/uL (4.1-5.3) H 05/13/23: Hgb 17.1 g/dL (11.7-16.6) H 05/13/23: Hct 51.5 % (42.0-52.0) 05/13/23: MCV 85.5 fl (80-94) 05/13/23: MCH 28.4 pg (28.0-34.0) 05/13/23 01: MCHC 33.2 g/dL (30.0-36.0) 05/13/23: RDW 13.8 % (12.1-15.1) 05/13/23: Plt Count 203 10^3/cmm (130-400) 05/13/23: MPV 11.1 fL (7.4-10.4) H 05/13/23 01: Neut % (Auto) 47.2 % 05/13/23: Lymph % (Auto) 40.8 % 05/13/23 01:23 [place] % (Auto) 8.6 % 05/13/23 01: Eos % (Auto) 1.8 % 05/13/23 01: Baso % (Auto) 0.8 % 05/13/23 01: Neut # (Auto) 2.80 10^3/uL (1.8-7.7) 05/13/23 01: Lymph # (Auto) 2.4 10^3/uL (0.8-4.8) 05/13/23 01: [place] # (Auto) 0.5 10^3/uL (0.2-0.9) 05/13/23 01: Eos # (Auto) 0.1 10^3/uL (0.0-0.8) 05/13/23 01: Baso # (Auto) 0.1 10^3/uL (0.0-0.1) 05/13/23 01: Nucleated RBC % (auto) 0 % 05/13/23 01: Nucleated RBCs # 0.0 /100WBC 05/13/23 01:23 Sodium 127 mmol/L (136-145) L 05/13/23 01: Potassium 4.1 mmol/L (3.5-5.1) 05/13/23 01: Chloride 86 mmol/L (98-107) L 05/13/23 01: Carbon Dioxide 29 mmol/L (22-29) 05/13/23 01: Anion Gap 16.1 (5-19) 05/13/23 01: BUN 12 mg/dL (6-20) 05/13/23 01: Creatinine 1.4 mg/dL (0.7-1.2) H 05/13/23 01:23 GFR Calculation 55.3 mL/min (90-130) L 05/13/23 01:23 Glucose 426 mg/dL (65-115) H 05/13/23 01: POC Glucose 419 mg/dL (70-110) H 05/13/23:28 Calculated Osmolality 282 mOsm/kg (285-295) L 05/13/23 01: Calcium 9.5 mg/dL (8.5-10.5) 05/13/23 01:23 Total Bilirubin 0.2 mg/dL (0.15-1.2) 05/13/23 01:23 AST 9 U/L (0-40) 05/13/23 01:23 ALT 16 U/L (0-41) 05/13/23 01:23 Alkaline Phosphatase 106 U/L (40-130) 05/13/23 01:23 Total Protein 6.8 g/dL (6.6-8.7) 05/13/23 01:23 Albumin 4.2 g/dL (3.5-5.2) 05/13/23 01:23 Globulin 2.6 g/dL (1.3-4.6) 05/13/23 01:23 Discharge Plan Discharge Patient Disposition: Home Clinical Impression: Dehydration, Hyperglycemia Condition: Stable Prescriptions: No Action gabapentin [Neurontin] 300 mg capsule 300 mg PO BID atorvastatin 40 mg tablet 40 mg PO BEDTIME metformin 500 mg tablet extended release 24hr 1,000 mg PO DAILY insulin lispro [Humalog KwikPen Insulin] 100 unit/mL insulin pen 4 unit SUBCUT Q6H PRN (Reason: diabetes) 30 Days Qty: 15 0RF Rx Instructions: 4 units prn every 6hrs for BG above 400 Mounjaro 2.5 mg/0.5 mL pen injector 2.5 mg SUBCUT Q7D 30 Days Qty: 2.5 0RF Rx Instructions: 2.5mg weekly for 1month; 5mg weekly for 1month; 7.5mg weekly and continue Mounjaro 5 mg/0.5 mL pen injector 5 mg SUBCUT Q7D 30 Days Qty: 2.5 0RF Rx Instructions: 5mg weekly for 1 month then 7.5mg weekly and continue Mounjaro 7.5 mg/0.5 mL pen injector 7.5 mg SUBCUT Q7D 30 Days Qty: 2.5 0RF diazepam 5 mg tablet 5 mg PO TID 30 Days Qty: 90 3RF divalproex 500 mg tablet extended release 24 hr 2,000 mg PO BEDTIME 30 Days Qty: 120 4RF haloperidol 5 mg tablet 5 mg PO .qhs 30 Days Qty: 30 3RF hydroxyzine HCl 50 mg tablet 50 mg PO QID PRN (Reason: anxiety or sleep) 30 Days Qty: 120 3RF venlafaxine 37.5 mg capsule,extended release 24hr 37.5 mg PO DAILY 30 Days Qty: 30 3RF Rx Instructions: take with 75mg cap for daily total of 112.5mg aripiprazole 30 mg tablet 15 mg PO DAILY 30 Days Qty: 30 3RF Lantus Solostar U-100 Insulin 100 unit/mL (3 mL) insulin pen 50 unit SUBCUT BEDTIME venlafaxine 150 mg Capsule,Extended Release 24hr 150 mg PO DAILY 30 Days Qty: 30 1RF ferrous sulfate [iron] 325 mg (65 mg iron) Tablet 325 mg PO DAILY bismuth subsalicylate [Stomach Relief] 262 mg/15 mL suspension See Rx Instructions .ROUTE .COMPLEX Rx Instructions: 1 mL PO NEEDED irbesartan 150 mg tablet 150 mg PO DAILY Discharge Orders: Discharge ED (Routine); Ordered 05/13/23 Ordered By: Ho Wagner Referrals: Blair Cheatham MD [Primary Care Provider] - Discharge Diet: Usual diet Discharge Activity: Increase activity as tolerated Patient Instructions: Diabetic Hyperglycemia (ED) Activity Restrictions/Additional Instructions: Follow-up with primary care's office in the morning to discuss changes with his Lantus. The on-call provider should be able to make adjustments or discuss other options. Return to the ER for high fever greater than 100.4, unresponsiveness, nausea and vomiting, or new concerns. Coding Level of Care Code ED Optometry Assistant for Dasha Nix
[2023-05-13 01:25] VITALS: BP 148/82; PULSE 118; RESP 18; TEMP 36.5; O2SAT 91
[2023-05-13 01:29] LABS: Basophils # 0.1 10^3/uL (0.0-0.1); Basophils % 0.8 %; Eosinophils # 0.1 10^3/uL (0.0-0.8); Eosinophils % 1.8 %; Hematocrit 51.5 % (42.0-52.0); Hemoglobin 17.1 g/dL (11.7-16.6); Lymphocytes # 2.4 10^3/uL (0.8-4.8); Lymphocytes % 40.8 %; Mean Corpuscular HGB Conc 33.2 g/dL (30.0-36.0); Mean Corpuscular Hemoglobin 28.4 pg (28.0-34.0); Mean Corpuscular Volume 85.5 fl (80-94); Mean Platelet Volume 11.1 fL (7.4-10.4); Monocytes # 0.5 10^3/uL (0.2-0.9); Monocytes % 8.6 %; Neutrophils % 47.2 %; Nucleated Red Blood Cells % 0 %; Platelet Count 203 10^3/cmm (130-400); Red Blood Count 6.02 10^6/uL (4.1-5.3); Red Cell Distribution Width 13.8 % (12.1-15.1)
[2023-05-13 01:32] LABS: Glucose Point of Care 419 mg/dL (70-110)
[2023-05-13 01:49] LABS: Alanine Aminotransferase 16 U/L (0-41); Albumin Level 4.2 g/dL (3.5-5.2); Alkaline Phosphatase 106 U/L (40-130); Anion Gap 16.1 (5-19); Aspartate Amino Transferase 9 U/L (0-40); Blood Urea Nitrogen 12 mg/dL (6-20); Calcium 9.5 mg/dL (8.5-10.5); Carbon Dioxide 29 mmol/L (22-29); Chloride 86 mmol/L (98-107); Globulin 2.6 g/dL (1.3-4.6); Glomerular Filtration Rate 55.3 mL/min (90-130); Glucose 426 mg/dL (65-115); Osmolality Calculated 282 mOsm/kg (285-295); Potassium 4.1 mmol/L (3.5-5.1); Sodium 127 mmol/L (136-145); Total Bilirubin 0.2 mg/dL (0.15-1.2); Total Protein 6.8 g/dL (6.6-8.7)
[2023-05-13 02:00] VITALS: BP 131/79; PULSE 112; RESP 15; O2SAT 89
[2023-05-13] MEDS: sodium chloride 0.9% 1,000 ML 999 ML IV (02:00)
[2023-05-13 02:30] VITALS: BP 120/64; PULSE 103; O2SAT 91
[2023-05-13 02:53] LABS: Glucose Point of Care 367 mg/dL (70-110)
[2023-05-13 03:06] VITALS: BP 137/88; PULSE 106; RESP 18; O2SAT 93
== END 2023-05-13 03:09 | disposition home or self-care (01) ==
PROVIDERS: Emergency Provider Nurse Practitioner Family; PCP Family Medicine
DX: E11.65 Type 2 diabetes mellitus with hyperglycemia (principal); E86.0 Dehydration; E11.42 Type 2 diabetes mellitus with diabetic polyneuropathy; I10 Essential (primary) hypertension; E78.5 Hyperlipidemia, unspecified; F17.290 Nicotine dependence, other tobacco product, uncomplicated; Z79.4 Long term (current) use of insulin; Z79.84 Long term (current) use of oral hypoglycemic drugs; Z86.711 Personal history of pulmonary embolism
CPT/HCPCS: 36416; 80053; 82962; 85025; 99284; J7030

== ENCOUNTER 2023-05-13 19:16 | Emergency (ER) | payer MEDICARE, MEDICAID, SELFPAY ==
[2023-05-13 19:27] VITALS: BP 147/105; PULSE 121; RESP 26; TEMP 37.1; O2SAT 94; BMI 43.4
[2023-05-13 19:46] LABS: Glucose Point of Care 502 mg/dL (70-110)
[2023-05-13] MEDS: sodium chloride 0.9% 1,000 ML 999 ML IV ×3 (19:50→21:29)
[2023-05-13 19:56] LABS: Basophils % 0.8 %; Eosinophils # 0.1 10^3/uL (0.0-0.8); Eosinophils % 1.1 %; Hemoglobin 16.8 g/dL (11.7-16.6); Lymphocytes # 2.2 10^3/uL (0.8-4.8); Lymphocytes % 40.6 %; Mean Corpuscular HGB Conc 32.3 g/dL (30.0-36.0); Mean Corpuscular Volume 86.7 fl (80-94); Mean Platelet Volume 11.2 fL (7.4-10.4); Monocytes # 0.4 10^3/uL (0.2-0.9); Monocytes % 7.5 %; Neutrophils # 2.59 10^3/uL (1.8-7.7); Neutrophils % 48.9 %; Nucleated Red Blood Cells % 0 %; Platelet Count 194 10^3/cmm (130-400); Red Cell Distribution Width 14.1 % (12.1-15.1); White Blood Count 5.3 10^3/uL (4.0-10.0)
[2023-05-13 19:58] LABS: Add Urine Microscopic? NO; Charge for UA Resulting for Rev
[2023-05-13 20:01] VITALS: BP 134/90; PULSE 109; RESP 16; O2SAT 95
[2023-05-13 20:04] LABS: Base Excess VBG 5.8 mmol/L (-3.0-3.0); Blood Gas Sample Site Not specified; Blood Gas Sample Type Venous; HCO3 VBG 32.3 mmol/L (24-28); PCO2 VBG 51.5 mmHg (41-51); PO2 VBG 45.8 mmHg (25-40); Venous Blood Gas Hematocrit 53.7 % (42-52); pH VBG 7.41 (7.32-7.42)
--- NOTE | 2023-05-13 20:11 | ED_ITS ---
HPI - Recheck/Abnormal Lab/Rx General: Chief Complaint: Recheck/Abnormal Lab/Rx Stated Complaint: Bood Sugar issues Time Seen by Provider: 05/13/23 19:31 Source: patient and old records reviewed Mode of arrival: EMS Limitations: no limitations History of Present Illness: Patient presents today brought by EMS from his residential facility accompanied by his sponsor for evaluation and treatment of continued elevated blood sugars. Patient was brought in earlier this morning for concerns by the staff at his facility that his blood sugars were jumping between 250 and 400. Chart review shows that he typically takes 30 units of Lantus at night as well as daily metformin. He also has Humalog for acute elevated blood sugars. Patient was given 4 units of insulin prior to his evaluation in the emergency department this morning and after some fluids and lab checks, was discharged back to his residential facility with instructions to contact primary care Sunday to discuss increasing his Lantus dosing. However, after returning home today, he states he had 5 bottles of water, 1 Coke 0, and 1 glass of milk and only ate ham. His blood sugars have still been increasingly elevated with numbers over 500. The accompanying staff member stated that when he came to work at 4 this afternoon, patient was having vomiting and diarrhea. Patient reports multiple episodes of diarrhea throughout the day and is vomited approximately 4 times. He denies abdominal pains. Patient presents tachycardic and tachypneic from EMS. EMS provided 200 mL of LR in route. Review of Systems General: Reports: 10 or more systems reviewed and unremarkable except in HPI and below PFSH ED PFSH: Medical History Bipolar 1 disorder Fracture of triquetrum Hyperlipidemia Hypertension Other reactions to severe stress Peripheral neuropathy Psychiatric care Pulmonary embolism Type 2 diabetes mellitus Surgical History History of appendectomy Social History Smoking and tobacco status: current every day smoker e-cigarettes Alcohol intake: current Alcohol intake frequency: few times a month Substance/Drug Use: never Marital status: Single Physical Exam Const: COMMON NORMALS: no acute distress, patient oriented x3 and alert HENMT: COMMON NORMALS: normocephalic, atraumatic, hearing grossly normal bilaterally and moist oral mucous membranes HEAD & SCALP: normocephalic and atraumatic Eye: COMMON NORMALS: Equal, round and reactive pupils present, EOMs intact bilaterally and conjunctivae normal CONJUNCTIVA: Yes conjunctivae normal PUPIL: Yes Equal, round and reactive pupils present Neck/C-Spine: COMMON NORMALS: full ROM and no JVD Lymph: LYMPHATIC: no lymphadenopathy noted Resp: COMMON NORMALS: normal respiratory effort, No retractions, No use of accessory muscles and clear to auscultation bilaterally AUSCULTATION: clear to auscultation bilaterally Cardio: COMMON NORMALS: no JVD, regular rate and regular rhythm RATE: regular rate RHYTHM: regular rhythm GI: COMMON NORMALS: Normal to inspection, nondistended, normoactive bowel sounds present : COMMON NORMALS: Yes no CVA tenderness BLADDER/KIDNEY EXAM: Yes no CVA tenderness Back/Pelvis: COMMON NORMALS: no CVA tenderness, no thoracic nor lumbar tenderness and thoraco-lumbar ROM normal Extremity: COMMON NORMALS: normal to inspection, full ROM and capillary refill normal Neuro: COMMON NORMALS: patient oriented x3 SENSORIUM/ORIENTATION: Yes alert Psych: COMMON NORMALS: mental status grossly normal, Normal thought process present, cooperative, normal affect and activity/motor behavior normal THOUGHT PROCESS: Normal thought process present Skin: COMMON NORMALS: no rashes or lesions noted and no wounds GENERAL SKIN EXAM: no rashes or lesions noted Course Vital Signs: Vital signs: Vital Signs Temperature 98.7 F 05/13/23 19:27 Pulse Rate 109 H 05/13/23 20:01 Respiratory Rate 16 05/13/23 20:01 Blood Pressure 134/90 05/13/23 20:01 Pulse Oximetry 95 05/13/23 20:01 Oxygen Delivery Me thod Room Air 05/13/23 19:27 MDM - Recheck/Abnormal Lab/Rx Medical Decision Making I spent quite a bit of time in the patient's evaluation earlier today. Since he has been vomiting this afternoon and continued to have diarrhea we did recheck his lab work. It is generally unchanged from earlier today. However, with his vomiting and diarrhea I did reach out to our hospitalist services about inpatient management of his blood sugars. I was able to speak with Dr. Morales. After our discussion, we agreed to coordinate care between myself, hospitalist services, and Dr. Garcia to observe and treat the patient here in the emergency [facility]. It was recommended he be given 3 L of fluid in addition to the insulin bolus and drip originally ordered. He would have every 30 minute blood sugar checks until he got around 200 where he could then be discharged. Patient was given antinausea medication did not have vomiting while here in the emergency department. Vital signs improved. At this time, he can be discharged back to his residential facility with continued encouragement to reach out to his district medical examiner first thing in the morning to discuss changing his Lantus dosing. He will also be given antinausea medication for the next several days to help with any vomiting which may occur. He was still given return instruct ions for worsening blood sugar levels. He verbalized understanding and agreement to treatment plan. Differential Diagnosis Unlikely encounter for wound recheck (abnormal labs, DKA, dehydration, Hyperglycemia) Lab Data 05/13/23 19:05/13/23: Laboratory Results WBC 5.3 10^3/uL (4.0-10.0) 05/13/23: RBC 6.00 10^6/uL (4.1-5.3) H 05/13/23 19: Hgb 16.8 g/dL (11.7-16.6) H 05/13/23: Hct 52.0 % (42.0-52.0) 05/13/23: MCV 86.7 fl (80-94) 05/13/23: MCH 28.0 pg (28.0-34.0) 05/13/23: MCHC 32.3 g/dL (30.0-36.0) 05/13/23: RDW 14.1 % (12.1-15.1) 05/13/23: Plt Count 194 10^3/cmm (130-400) 05/13/23: MPV 11.2 fL (7.4-10.4) H 05/13/23: Neut % (Auto) 48.9 % 05/13/23: Lymph % (Auto) 40.6 % 05/13/23: [place] % (Auto) 7.5 % 05/13/23: Eos % (Auto) 1.1 % 07/09/23 19:29 Baso % (Auto) 0.8 % 05/13/23 19:29 Neut # (Auto) 2.59 10^3/uL (1.8-7.7) 05/13/23 19:29 Lymph # (Auto) 2.2 10^3/uL (0.8-4.8) 05/13/23 19:29 [place] # (Auto) 0.4 10^3/uL (0.2-0.9) 05/13/23 19:29 Eos # (Auto) 0.1 10^3/uL (0.0-0.8) 05/13/23 19:29 Baso # (Auto) 0.0 10^3/uL (0.0-0.1) 05/13/23 19:29 Nucleated RBC % (auto) 0 % 05/13/23 19: Nucleated RBCs # 0.0 /100WBC 05/13/23 19:29 Specimen Type Venous 05/13/23 19:58 Sample Site Not specified 05/13/23 19:58 Misael Test N/a 05/13/23 19:58 VBG pH 7.41 (7.32-7.42) 05/13/23 19:58 VBG pCO2 51.5 mmHg (41-51) H 05/13/23 19:58 VBG pO2 45.8 mmHg (25-40) H 05/13/23 19:58 VBG HCO3 32.3 mmol/L (24-28) H 05/13/23 19:58 VBG Base Excess 5.8 mmol/L (-3.0-3.0) H 05/13/23 19:58 VBG Hematocrit 53.7 % (42-52) H 05/13/23 19:58 O2 Delivery Device None 05/13/23 19:58 FiO2 21.0 % 05/13/23 19:58 Rum Processing Operator ID [id number] 05/13/23 19:58 Sodium 126 mmol/L (136-145) L 05/13/23 19:29 Potassium 4.6 mmol/L (3.5-5.1) 05/13/23 19:29 Chloride 87 mmol/L (98-107) L 05/13/23 19:29 Carbon Dioxide 28 mmol/L (22-29) 05/13/23 19:29 Anion Gap 15.6 (5-19) 05/13/23 19:29 BUN 12 mg/dL (6-20) 05/13/23 19: Creatinine 1.2 mg/dL (0.7-1.2) 05/13/23 19:29 GFR Calculation 66.1 mL/min (90-130) L 05/13/23 19:29 Glucose 481 mg/dL (65-115) H 05/13/23 19: POC Glucose 212 mg/dL (70-110) H 05/13/23 23:05 Calculated Osmolality 283 mOsm/kg (285-295) L 05/13/23 19: Calcium 9.1 mg/dL (8.5-10.5) 05/13/23 19: Total Bilirubin 0.2 mg/dL (0.15-1.2) 05/13/23 19: AST 5 U/L (0-40) 05/13/23: ALT < 5 U/L (0-41) 05/13/23 19: Alkaline Phosphatase 95 U/L (40-130) 05/13/23 19:29 Total Protein 6.6 g/dL (6.6-8.7) 05/13/23 19:29 Albumin 4.2 g/dL (3.5-5.2) 05/13/23 19: Globulin 2.4 g/dL (1.3-4.6) 05/13/23 19:29 Lipase 20 U/L (13-60) 05/13/23 19: Procalcitonin 0.09 ng/mL (0-0.5) 05/13/23 19:29 Urine Color Colorless (Yellow) 05/13/23 19: Urine Appearance Clear (CLEAR) 05/13/23 19: Urine pH 6.5 (5-7) 05/13/23 19: Ur Specific [place] 1.000 (1.005-1.030) L 05/13/23 19: Urine Protein Neg (Negative) 05/13/23 19: Urine Glucose (UA) 4+ (Normal) H 05/13/23 19:29 Urine Ketones Negative (Negative) 05/13/23 19: Urine Blood Neg (Negative) 05/13/23 19:29 Urine Nitrate Negative (Negative) 05/13/23 19:29 Urine Bilirubin Neg (Negative) 05/13/23 19:29 Urine Urobilinogen Norm mg/dL (Negative) 05/13/23 19:29 Ur Leukocyte Esterase Negative (Negative) 05/13/23 19:29 Serum Ketones Negative (Negative) 05/13/23 19:29 Discharge Plan Discharge Patient Disposition: Home Clinical Impression: Type 2 diabetes mellitus, Hyperglycemia due to type 2 diabetes mellitus Condition: Stable Prescriptions: New ondansetron 4 mg tablet,disintegrating 4 mg PO Q8H 3 Days Qty: 9 0RF No Action gabapentin [Neurontin] 300 mg capsule 300 mg PO BID atorvastatin 40 mg tablet 40 mg PO BEDTIME metformin 500 mg tablet extended release 24hr 1,000 mg PO DAILY insulin lispro [Humalog KwikPen Insulin] 100 unit/mL insulin pen 4 unit SUBCUT Q6H PRN (Reason: diabetes) 30 Days Qty: 15 0RF Rx Instructions: 4 units prn every 6hrs for BG above 400 Mounjaro 2.5 mg/0.5 mL pen injector 2.5 mg SUBCUT Q7D 30 Days Qty: 2.5 0RF Rx Instructions: 2.5mg weekly for 1month; 5mg weekly for 1month; 7.5mg weekly and continue Mounjaro 5 mg/0.5 mL pen injector 5 mg SUBCUT Q7D 30 Days Qty: 2.5 0RF Rx Instructions: 5mg weekly for 1 month then 7.5mg weekly and continue Mounjaro 7.5 mg/0.5 mL pen injector 7.5 mg SUBCUT Q7D 30 Days Qty: 2.5 0RF diazepam 5 mg tablet 5 mg PO TID 30 Days Qty: 90 3RF divalproex 500 mg tablet extended release 24 hr 2,000 mg PO BEDTIME 30 Days Qty: 120 4RF haloperidol 5 mg tablet 5 mg PO .qhs 30 Days Qty: 30 3RF hydroxyzine HCl 50 mg tablet 50 mg PO QID PRN (Reason: anxiety or sleep) 30 Days Qty: 120 3RF venlafaxine 37.5 mg capsule,extended release 24hr 37.5 mg PO DAILY 30 Days Qty: 30 3RF Rx Instructions: take with 75mg cap for daily total of 112.5mg aripiprazole 30 mg tablet 15 mg PO DAILY 30 Days Qty: 30 3RF Lantus Solostar U-100 Insulin 100 unit/mL (3 mL) insulin pen 50 unit SUBCUT BEDTIME venlafaxine 150 mg Capsule,Extended Release 24hr 150 mg PO DAILY 30 Days Qty: 30 1RF ferrous sulfate [iron] 325 mg (65 mg iron) Tablet 325 mg PO DAILY bismuth subsalicylate [Stomach Relief] 262 mg/15 mL suspension See Rx Instructions .ROUTE .COMPLEX Rx Instructions: 1 mL PO NEEDED irbesartan 150 mg tablet 150 mg PO DAILY Discharge Orders: Discharge ED (Routine); Ordered 05/13/23 Ordered By: Krissy Williamson Referrals: Blair Cheatham MD [Primary Care Provider] - Discharge Diet: Diabetic Discharge Activity: Increase activity as tolerated Patient Instructions: Hyperglycemia, Managing Diabetes During Sick Days (ED) Activity Restrictions/Additional Instructions: Comparison of your lab work tonight from your lab work this morning is generally unchanged. However, with your vomiting and diarrhea it does put you at a higher risk of sudden increase in blood sugars leading to a ketoacidotic state. You are not currently in diabetic ketoacidosis and, we were able to bring your blood sugars down considerably with fluid and insulin. I spoke with the hospitalist who, in conjunction with the emergency room physician here libby provided you the protocol here in the emergency department to treat your hyperglycemia without having to be admitted. We still recommend you reach out to your district medical examiner in the morning to make them aware of your elevated blood sugar readings as you may require adjustment to your medications as previously di shawna. However, if your blood sugar readings again spike in you are still having vomiting and diarrhea you need to return here to the ER. I have provided you a prescription of some antinausea medication to help you tolerate fluids. Be sure you are closely monitoring the food and drink you are consuming for carb and sugar counts. Be sure you are taking your medications as prescribed. Coding Level of Care Code ED Account Receivable Associate for Dasha Nix
[2023-05-13 20:12] LABS: Ketone (Acetest) Serum Negative (Negative); Urine Appearance Clear (CLEAR); Urine Color Colorless (Yellow); pH Urine 6.5 (5-7)
[2023-05-13 20:13] LABS: Bilirubin Urine Neg (Negative); Blood Urine Neg (Negative); Glucose Urine UA 4+ (Normal); Ketones Urine Negative (Negative); Leukocyte Esterase Urine Negative (Negative); Nitrate Urine Negative (Negative); Protein Urine Neg (Negative); Urobilinogen Urine Norm (Negative)
[2023-05-13 20:18] LABS: Alanine Aminotransferase < 5 U/L (0-41); Aspartate Amino Transferase 5 U/L (0-40); Total Bilirubin 0.2 mg/dL (0.15-1.2)
[2023-05-13 20:25] LABS: Procalcitonin 0.09 ng/mL (0-0.5)
[2023-05-13] MEDS: metoclopramide 5 mg/mL SDV 2 mL 10 MG IVP (20:37)
[2023-05-13] MEDS: insulin regular-human 100 units/1 mL 10 UNIT IVP (20:38)
[2023-05-13] MEDS: insulin regular-human 250 UNIT in sodium chloride 0.9% 250 ML 10.54 UNIT IV (20:41)
[2023-05-13 20:51] LABS: Glucose Point of Care 408 mg/dL (70-110)
[2023-05-13 20:54] LABS: Albumin Level 4.2 g/dL (3.5-5.2); Alkaline Phosphatase 95 U/L (40-130); Anion Gap 15.6 (5-19); Blood Urea Nitrogen 12 mg/dL (6-20); Calcium 9.1 mg/dL (8.5-10.5); Carbon Dioxide 28 mmol/L (22-29); Chloride 87 mmol/L (98-107); Globulin 2.4 g/dL (1.3-4.6); Glomerular Filtration Rate 66.1 mL/min (90-130); Glucose 481 mg/dL (65-115); Osmolality Calculated 283 mOsm/kg (285-295); Potassium 4.6 mmol/L (3.5-5.1); Sodium 126 mmol/L (136-145); Total Protein 6.6 g/dL (6.6-8.7)
[2023-05-13 20:55] LABS: Lipase 20 U/L (13-60)
[2023-05-13 21:31] LABS: Glucose Point of Care 316 mg/dL (70-110)
[2023-05-13 22:06] LABS: Glucose Point of Care 272 mg/dL (70-110)
[2023-05-13 22:40] LABS: Glucose Point of Care 249 mg/dL (70-110)
[2023-05-13 23:09] LABS: Glucose Point of Care 212 mg/dL (70-110)
[2023-05-13 23:30] VITALS: BP 164/91; PULSE 108; O2SAT 96
== END 2023-05-13 23:35 | disposition home or self-care (01) ==
PROVIDERS: Emergency Provider Physician Assistant; PCP Family Medicine
DX: E11.65 Type 2 diabetes mellitus with hyperglycemia (principal); E11.42 Type 2 diabetes mellitus with diabetic polyneuropathy; I10 Essential (primary) hypertension; E78.5 Hyperlipidemia, unspecified; F17.290 Nicotine dependence, other tobacco product, uncomplicated; Z79.4 Long term (current) use of insulin; Z79.84 Long term (current) use of oral hypoglycemic drugs
CPT/HCPCS: 36415; 36416; 80053; 81003; 82009; 82803; 82962; 83690; 84145; 85025; 96365; 96366; 96375; 99284; J1815; J2765; J7030; J7050

== ENCOUNTER 2023-06-04 21:29 | Emergency (ER) | payer MEDICARE, MEDICAID, SELFPAY ==
[2023-06-04 21:31] VITALS: BP 133/90; PULSE 120; RESP 20; TEMP 36.9; O2SAT 87; BMI 39.5
--- NOTE | 2023-06-04 21:36 | ECG_ITS ---
[facility] Test Date: 2023-06-04 Pat Name: Zaire Nassar Department: Room: Gender: Male Associate Director Of Nursing: : 1980 Requested By: Wale Vyas Order Number: [id number] Drew MD: Yina Lugo M.D. Measurements Intervals Kiel Rate: 123 P: 38 IN: 171 QRS: -38 QRSD: 114 T: 19 QT: 317 QTc: 455 Interpretive Statements SINUS TACHYCARDIA LEFT AXIS DEVIATION [QRS AXIS < -30] POSSIBLE ANTERIOR MYOCARDIAL INFARCTION , OF INDETERMINATE AGE [30 ms Q WAVE IN V3/V4, OR R < 0.2 mV IN V4] Compared to ECG 05/01/2023 20:52:59 Left-axis deviation now present Indeterminate axis no longer present Myocardial infarct finding still present Electronically Signed On 06-05-2023 20:21:43 CDT by Yina Lugo M.D. [email or web address]
--- NOTE | 2023-06-04 21:42 | XRR_ITS ---
PROCEDURE INFORMATION: Exam: XR Chest Exam date and time: 06/04/2023 9:49 PM Age: 42 years old Clinical indication: Other: Syncope TECHNIQUE: Imaging protocol: Radiologic exam of the chest. Views: 1 view. COMPARISON: CR XR chest 1V portable [id number] 04/15/2023 12:14 AM FINDINGS: Lungs: Unremarkable. No consolidation. Pleural spaces: Unremarkable. No pleural effusion. No pneumothorax. Heart/Mediastinum: Unremarkable. No cardiomegaly. Bones/joints: Unremarkable. XR/XR chest 1V portable [id number] IMPRESSION: No acute findings.
--- NOTE | 2023-06-04 21:49 | CTR_ITS ---
PROCEDURE INFORMATION: Exam: CT Head Without Contrast Exam date and time: 06/04/2023 9:56 PM Age: 42 years old Clinical indication: Injury or trauma; Injury details: Syncopal episode, fall, found in floor by EMS TECHNIQUE: Imaging protocol: Computed tomography of the head without contrast. Radiation optimization: All CT scans at this facility use at least one of these dose optimization techniques: automated exposure control; mA and/or kV adjustment per patient size (includes targeted exams where dose is matched to clinical indication); or iterative reconstruction. REPORTING DATA: Count of CT and Cardiac NM exams in prior 12 months: This patient has received 8 known CTs and 0 known cardiac nuclear medicine studies in the 12 months prior to the current study. COMPARISON: CT head wo con* [id number] 03/15/2023 10:01 PM RADIATION DOSE METRICS: Total DLP (mGy-cm): 1235.78 FINDINGS: Brain: No hemorrhage. No edema. Mild diffuse cerebral atrophy. No significant white matter disease. No mass effect. Cerebral ventricles: No ventriculomegaly. Paranasal sinuses: Visualized sinuses are unremarkable. No fluid levels. Mastoid air cells: Visualized mastoid air cells are well aerated. Bones/joints: Unremarkable. No acute fracture. Soft tissues: Unremarkable. CT/CT head wo con* [id number] IMPRESSION: No acute intracranial abnormality.
--- NOTE | 2023-06-04 21:49 | ED_ITS ---
HPI - Syncope General: Chief Complaint: Syncope Stated Complaint: syncope Time Seen by Provider: 06/04/23 21:36 Source: patient and EMS Mode of arrival: EMS Limitations: no limitations History of Present Illness: 42-year-old male who has a history of intellectual delay along with diabetes states his blood sugar dropped today so he drank some Dane-Aid and ate sweets he states that it teja up to the 400s he became lightheaded diaphoretic and had a syncopal event he did hit his head when he had a syncopal event states he feels much improved now. Is a mild headache denies any chest pain denies any s hortness of breath. Associated symptoms: Deny abdominal pain, chest pain, fever(s), headache(s) or nausea Review of Systems Const: Denies: fever(s), chills, body aches or change in appetite Eyes: Denies: blurry vision or eye discomfort ENMT: Denies: throat pain or dental pain Card: Reports: syncope; Denies: chest pain Resp: Denies: dyspnea GI: Denies: abdominal pain, nausea, vomiting or diarrhea : Denies: dysuria Musc: Denies: neck pain or back pain Skin/Breast: Denies: rash Neuro: Denies: headache(s) Psych: Denies: depression PFSH ED PFSH: Medical History Bipolar 1 disorder Fracture of triquetrum Hyperlipidemia Hypertension Other reactions to severe stress Peripheral neuropathy Psychiatric care Pulmonary embolism Type 2 diabetes mellitus Surgical History History of appendectomy Social History Smoking and tobacco status: current every day smoker e-cigarettes Alcohol intake: current Alcohol intake frequency: few times a month Substance/Drug Use: never Marital status: Single Physical Exam Const: COMMON NORMALS: no acute distress, patient oriented x3 and healthy appearing HENMT: COMMON NORMALS: normocephalic and atraumatic HEAD & SCALP: normocephalic and atraumatic Eye: COMMON NORMALS: Equal, round and reactive pupils present and EOMs intact bilaterally PUPIL: Yes Equal, round and reactive pupils present Neck/C-Spine: COMMON NORMALS: full ROM and supple Chest: COMMONS NORMALS: normal inspection of the chest and normal palpation of entire chest wall Resp: COMMON NORMALS: normal respiratory effort, No retractions, No use of accessory muscles and clear to auscultation bilaterally AUSCULTATION: clear to auscultation bilaterally Cardio: COMMON NORMALS: regular rate, regular rhythm and No murmurs present (Cardio) RATE: regular rate RHYTHM: regular rhythm GI: COMMON NORMALS: Normal to inspection, nondistended, normoactive bowel sounds present, Soft to palpation, non-tender and no masses PALPATION: Yes Soft to palpation Extremity: COMMON NORMALS: normal to inspection and full ROM Neuro: COMMON NORMALS: patient oriented x3, moves all extremities and no focal motor deficits Psych: COMMON NORMALS: mental status grossly normal, Normal thought process present and cooperative THOUGHT PROCESS: Normal thought process present Skin: COMMON NORMALS: no rashes or lesions noted and no wounds GENERAL SKIN EXAM: no rashes or lesions noted Course Vital Signs: Vital signs: Vital Signs Temperature 98.4 F 06/04/23 21:31 Pulse Rate 121 H 06/04/23 22:02 Respiratory Rate 25 H 06/04/23 22:02 Blood Pressure 130/91 06/04/23 22:02 Pulse Oximetry 88 L 06/04/23 22:02 Oxygen Delivery Me thod Room Air 06/04/23 22:02 MDM - Syncope Medical Decision Making Patient presents with syncopal event likely due to his diabetes he is well- appearing here his vital signs of improved here blood works normal his blood mcginnis gars improved he is stable for discharge she is to follow-up with PCP and return if worsening. Head CT is normal as well Medical Records I reviewed the patient's medical records. Lab Data I reviewed the patient's lab results. 06/04/23 21:20 06/04/23 21:20 Radiology Impressions Chest X-Ray 06/04/23 21:42 IMPRESSION: No acute findings. Head CT 06/04/23 21:49 IMPRESSION: No acute intracranial abnormality. Laboratory Results WBC 6.9 10^3/uL (4.0-10.0) 06/04/23 21:20 RBC 6.11 10^6/uL (4.1-5.3) H 06/04/23 21:20 Hgb 17.2 g/dL (11.7-16.6) H 06/04/23 21:20 Hct 52.6 % (42.0-52.0) H 06/04/23 21:20 MCV 86.1 fl (80-94) 06/04/23 21:20 MCH 28.2 pg (28.0-34.0) 06/04/23 21:20 MCHC 32.7 g/dL (30.0-36.0) 06/04/23 21:20 RDW 14.5 % (12.1-15.1) 06/04/23 21:20 Plt Count 208 10^3/cmm (130-400) 06/04/23 21:20 MPV 11.1 fL (7.4-10.4) H 06/04/23 21:20 Neut % (Auto) 37.9 % 06/04/23 21:20 Lymph % (Auto) 53.3 % 06/04/23 21:20 [place] % (Auto) 6.8 % 06/04/23 21:20 Eos % (Auto) 1.0 % 06/04/23 21:20 Baso % (Auto) 0.4 % 06/04/23 21:20 Neut # (Auto) 2.63 10^3/uL (1.8-7.7) 06/04/23 21:20 Lymph # (Auto) 3.7 10^3/uL (0.8-4.8) 06/04/23 21:20 [place] # (Auto) 0.5 10^3/uL (0.2-0.9) 06/04/23 21:20 Eos # (Auto) 0.1 10^3/uL (0.0-0.8) 06/04/23 21:20 Baso # (Auto) 0.0 10^3/uL (0.0-0.1) 06/04/23 21:20 Nucleated RBC % (auto) 0 % 06/04/23 21:20 Nucleated RBCs # 0.0 /100WBC 06/04/23 21:20 Sodium 130 mmol/L (136-145) L 06/04/23 21:20 Potassium 3.5 mmol/L (3.5-5.1) 06/04/23 21:20 Chloride 89 mmol/L (98-107) L 06/04/23 21:20 Carbon Dioxide 27 mmol/L (22-29) 06/04/23 21:20 Anion Gap 17.5 (5-19) 06/04/23 21:20 BUN 6 mg/dL (6-20) 06/04/23 21:20 Creatinine 1.0 mg/dL (0.7-1.2) 06/04/23 21:20 GFR Calculation 81.6 mL/min (90-130) L 06/04/23 21:20 Glucose 492 mg/dL (65-115) H 06/04/23 21:20 POC Glucose 304 mg/dL (70-110) H 06/04/23 22:58 Calculated Osmolality 289 mOsm/kg (285-295) 06/04/23 21:20 Calcium 9.5 mg/dL (8.5-10.5) 06/04/23 21:20 Total Bilirubin 0.3 mg/dL (0.15-1.2) 06/04/23 21:20 AST 11 U/L (0-40) 06/04/23 21:20 ALT 19 U/L (0-41) 06/04/23 21:20 Alkaline Phosphatase 117 U/L (40-130) 06/04/23 21:20 Total Protein 7.1 g/dL (6.6-8.7) 06/04/23 21:20 Albumin 4.3 g/dL (3.5-5.2) 06/04/23 21:20 Globulin 2.8 g/dL (1.3-4.6) 06/04/23 21:20 Valproic Acid 62.6 ug/mL (50-100) 06/04/23 21:20 EKG Data EKG 1: I personally reviewed and interpreted this EKG as follows: EKG interpretation date: 06/04/23 EKG interpretation time: 21:40 Interpretation: sinus tach hr [address] or t wave abnormalities qrs 114 qtc 390 Discharge Plan Discharge Patient Disposition: Home Clinical Impression: Syncope, Hyperglycemia Condition: Stable Prescriptions: No Action gabapentin [Neurontin] 300 mg capsule 300 mg PO BID atorvastatin 40 mg tablet 40 mg PO BEDTIME metformin 500 mg tablet extended release 24hr 1,000 mg PO DAILY insulin lispro [Humalog KwikPen Insulin] 100 unit/mL insulin pen 4 unit SUBCUT Q6H PRN (Reason: diabetes) 30 Days Qty: 15 0RF Rx Instructions: 4 units prn every 6hrs for BG above 400 Mounjaro 2.5 mg/0.5 mL pen injector 2.5 mg SUBCUT Q7D 30 Days Qty: 2.5 0RF Rx Instructions: 2.5mg weekly for 1month; 5mg weekly for 1month; 7.5mg weekly and continue Mounjaro 5 mg/0.5 mL pen injector 5 mg SUBCUT Q7D 30 Days Qty: 2.5 0RF Rx Instructions: 5mg weekly for 1 month then 7.5mg weekly and continue Mounjaro 7.5 mg/0.5 mL pen injector 7.5 mg SUBCUT Q7D 30 Days Qty: 2.5 0RF diazepam 5 mg tablet 5 mg PO TID 30 Days Qty: 90 3RF divalproex 500 mg tablet extended release 24 hr 2,000 mg PO BEDTIME 30 Days Qty: 120 4RF haloperidol 5 mg tablet 5 mg PO .qhs 30 Days Qty: 30 3RF hydroxyzine HCl 50 mg tablet 50 mg PO QID PRN (Reason: anxiety or sleep) 30 Days Qty: 120 3RF venlafaxine 37.5 mg capsule,extended release 24hr 37.5 mg PO DAILY 30 Days Qty: 30 3RF Rx Instructions: take with 75mg cap for daily total of 112.5mg aripiprazole 30 mg tablet 15 mg PO DAILY 30 Days Qty: 30 3RF Lantus Solostar U-100 Insulin 100 unit/mL (3 mL) insulin pen 50 unit SUBCUT BEDTIME venlafaxine 150 mg Capsule,Extended Release 24hr 150 mg PO DAILY 30 Days Qty: 30 1RF ferrous sulfate [iron] 325 mg (65 mg iron) Tablet 325 mg PO DAILY bismuth subsalicylate [Stomach Relief] 262 mg/15 mL suspension See Rx Instructions .ROUTE .COMPLEX Rx Instructions: 1 mL PO NEEDED irbesartan 150 mg tablet 150 mg PO DAILY Discharge Orders: Discharge ED (Routine); Ordered 06/04/23 Ordered By: Wale Vyas Referrals: Blair Cheatham MD [Primary Care Provider] - 1-3 days Discharge Diet: Advance as tolerated Discharge Activity: Resume usual activity Patient Instructions: Syncope (ED), Diabetic Hyperglycemia (ED) Coding Level of Care Code ED Ct Technician for Dasha Nix
[2023-06-04 21:51] LABS: Glucose Point of Care 433 mg/dL (70-110)
[2023-06-04 21:55] LABS: Basophils % 0.4 %; Eosinophils # 0.1 10^3/uL (0.0-0.8); Hematocrit 52.6 % (42.0-52.0); Hemoglobin 17.2 g/dL (11.7-16.6); Lymphocytes # 3.7 10^3/uL (0.8-4.8); Lymphocytes % 53.3 %; Mean Corpuscular HGB Conc 32.7 g/dL (30.0-36.0); Mean Corpuscular Hemoglobin 28.2 pg (28.0-34.0); Mean Corpuscular Volume 86.1 fl (80-94); Mean Platelet Volume 11.1 fL (7.4-10.4); Monocytes # 0.5 10^3/uL (0.2-0.9); Monocytes % 6.8 %; Neutrophils # 2.63 10^3/uL (1.8-7.7); Neutrophils % 37.9 %; Nucleated Red Blood Cells % 0 %; Platelet Count 208 10^3/cmm (130-400); Red Blood Count 6.11 10^6/uL (4.1-5.3); Red Cell Distribution Width 14.5 % (12.1-15.1); White Blood Count 6.9 10^3/uL (4.0-10.0)
[2023-06-04 22:02] VITALS: BP 130/91; PULSE 121; RESP 25; O2SAT 88
[2023-06-04 22:10] LABS: Alanine Aminotransferase 19 U/L (0-41); Albumin Level 4.3 g/dL (3.5-5.2); Alkaline Phosphatase 117 U/L (40-130); Anion Gap 17.5 (5-19); Aspartate Amino Transferase 11 U/L (0-40); Blood Urea Nitrogen 6 mg/dL (6-20); Calcium 9.5 mg/dL (8.5-10.5); Carbon Dioxide 27 mmol/L (22-29); Chloride 89 mmol/L (98-107); Globulin 2.8 g/dL (1.3-4.6); Glomerular Filtration Rate 81.6 mL/min (90-130); Glucose 492 mg/dL (65-115); Osmolality Calculated 289 mOsm/kg (285-295); Potassium 3.5 mmol/L (3.5-5.1); Sodium 130 mmol/L (136-145); Total Bilirubin 0.3 mg/dL (0.15-1.2); Total Protein 7.1 g/dL (6.6-8.7)
[2023-06-04] MEDS: insulin regular-human 100 units/1 mL 10 UNIT IVP (22:20)
[2023-06-04 22:22] LABS: Valproic Acid Level 62.6 ug/mL (50-100)
[2023-06-04] MEDS: sodium chloride 0.9% 1,000 ML 999 ML IV (22:23)
--- NOTE | 2023-06-04 22:23 | PC.NURSE ---
IV Insulin verified with Aden RILEY.
[2023-06-04 22:30] VITALS: BP 124/77; PULSE 110; RESP 21; O2SAT 93
[2023-06-04 22:34] LABS: Glucose Point of Care 378 mg/dL (70-110)
[2023-06-04 23:00] VITALS: BP 129/83; PULSE 101; RESP 17; O2SAT 90
[2023-06-04 23:02] LABS: Glucose Point of Care 304 mg/dL (70-110)
[2023-06-04 23:10] VITALS: BP 138/86; PULSE 108; RESP 18; O2SAT 98
== END 2023-06-04 23:15 | disposition home or self-care (01) ==
PROVIDERS: Emergency Provider Emergency Medicine; PCP Family Medicine
DX: R55 Syncope and collapse (principal); E11.65 Type 2 diabetes mellitus with hyperglycemia; E78.5 Hyperlipidemia, unspecified; I10 Essential (primary) hypertension; F17.290 Nicotine dependence, other tobacco product, uncomplicated; Z79.84 Long term (current) use of oral hypoglycemic drugs; Z79.4 Long term (current) use of insulin
CPT/HCPCS: 36415; 36416; 70450; 71045; 80053; 80164; 82962; 85025; 93005; 96374; 99285; J1815; J7030

== ENCOUNTER → 2023-06-27 13:00 | Outpatient (BNVA) | payer MEDICARE, MEDICAID, SELFPAY | PROVIDERS: PCP Family Medicine; Visit Provider Specialist | DX: R55 Syncope and collapse (principal); G47.33 Obstructive sleep apnea (adult) (pediatric); F70 Mild intellectual disabilities | CPT/HCPCS: 99205 ==

== ENCOUNTER 2023-07-11 03:20 | Emergency (ER) | payer MEDICARE, MEDICAID, SELFPAY ==
[2023-07-11 03:22] VITALS: BP 130/81; PULSE 110; RESP 20; TEMP 36.7; O2SAT 93; BMI 43.5
--- NOTE | 2023-07-11 03:28 | CTR_ITS ---
PROCEDURE INFORMATION: Exam: CT Head Without Contrast Exam date and time: 07/11/2023 3:45 AM Age: 43 years old Clinical indication: Injury or trauma; Fall; Blunt trauma (contusions or hematomas); Patient HX: Syncopal episode, patient has blood sugar issues and blood sugar was high. Patient has red estefanía on forehead but denies headache or any pain, unsure whether he hit his head. ; Additional info: Syncope TECHNIQUE: Imaging protocol: Computed tomography of the head without contrast. Radiation optimization: All CT scans at this facility use at least one of these dose optimization techniques: automated exposure control; mA and/or kV adjustment per patient size (includes targeted exams where dose is matched to clinical indication); or iterative reconstruction. REPORTING DATA: Count of CT and Cardiac NM exams in prior 12 months: This patient has received 9 known CTs and 0 known cardiac nuclear medicine studies in the 12 months prior to the current study. COMPARISON: CT head wo con* [id number] 06/04/2023 9:56 PM RADIATION DOSE METRICS: Total DLP (mGy-cm): 1235.48 FINDINGS: Brain: Normal. No hemorrhage. Unremarkable white matter. No mass effect. Cerebral ventricles: No ventriculomegaly. Paranasal sinuses: Visualized sinuses are unremarkable. No fluid levels. Mastoid air cells: Visualized mastoid air cells are well aerated. Bones/joints: Unremarkable. No acute fracture. Soft tissues: Unremarkable. CT/CT head wo con* [id number] IMPRESSION: No acute intracranial abnormality.
--- NOTE | 2023-07-11 03:34 | ECG_ITS ---
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 Measurements Intervals [place] Rate: 111 P: 40 [place]: 191 QRS: 69 QRSD: 109 T: 23 QT: 314 QTc: 428 Interpretive Statements SINUS TACHYCARDIA POSSIBLE ANTERIOR MYOCARDIAL INFARCTION , OF INDETERMINATE AGE [30 ms Q WAVE IN V3/V4, OR R < 0.2 mV IN V4] Compared to ECG 06/04/2023 21:40:25 Left-axis deviation no longer present Myocardial infarct finding still present Electronically Signed On 07-11-2023 15:45:05 CDT by Cheikh Navarrete M.D. [id number] f
--- NOTE | 2023-07-11 03:38 | ED_ITS ---
HPI - General Adult General: Chief complaint: General Medical Stated complaint: hyperglycemia Time Seen by Provider: 07/11/23 03:28 History of Present Illness: Patient presents to the ER by EMS with complaints of passing out today and falling and hitting his forehead. Patient's blood sugar was 520. Patient is an insulin-dependent diabetic on basal bolus therapy. Patient has a history of running high blood sugars. Caregiver said when he passed out she checked his pulse and he did not have a pulse so she initiated CPR. However patient was awake and alert and oriented when EMS arrived there. Review of Systems General: Reports: 10 or more systems reviewed and unremarkable except in HPI and below PFSH ED PFSH: Medical History Bipolar 1 disorder Fracture of triquetrum Hyperlipidemia Hypertension Other reactions to severe stress Peripheral neuropathy Psychiatric care Pulmonary embolism Type 2 diabetes mellitus Surgical History History of appendectomy Social History Smoking and tobacco status: current every day smoker e-cigarettes Alcohol intake: current Alcohol intake frequency: few times a month Substance/Drug Use: never Marital status: Single Physical Exam Const: COMMON NORMALS: no acute distress, average body habitus, patient oriented x3, no limitations, healthy appearing, alert and well nourished HENMT: COMMON NORMALS: normocephalic, external ears normal, EAC's normal and Normal nasal mucous membranes and turbinates present; head/scalp not atraumatic (Red spot on patient's forehead secondary to fall.) HEAD & SCALP: normocephalic; not atraumatic (Red spot on patient's forehead secondary to fall.) NOSE: Normal nasal mucous membranes and turbinates present EXTERNAL EAR: Yes external ears normal EXTERNAL AUDITORY CANAL: EAC's normal Eye: COMMON NORMALS: Equal, round and reactive pupils present, EOMs intact bilaterally, conjunctivae normal and no scleral icterus CONJUNCTIVA: Yes conjunctivae normal PUPIL: Yes Equal, round and reactive pupils present Neck/C-Spine: COMMON NORMALS: full ROM, no lymphadenopathy, supple, no meningeal signs, no JVD and Thyroid normal THYROID: Thyroid normal Chest: COMMONS NORMALS: normal inspection of the chest and normal palpation of entire chest wall Resp: COMMON NORMALS: normal respiratory effort, No retractions, No use of accessory muscles and clear to auscultation bilaterally AUSCULTATION: clear to auscultation bilaterally Cardio: COMMON NORMALS: no JVD, regular rate, regular rhythm, S1 normal heart sound present, S2 normal heart sound present, No gallops present (Cardio), No clicks present (Cardio), No murmurs present (Cardio) and No rub (Cardio) RATE: regular rate RHYTHM: regular rhythm HEART SOUNDS: S1 normal heart sound present and S2 normal heart sound present GI: COMMON NORMALS: Normal to inspection, nondistended, normoactive bowel sounds present, Soft to palpation, non-tender, No hepatosplenomegaly present and no masses PALPATION: Yes Soft to palpation and Yes No hepatosplenomegaly present : COMMON NORMALS: Yes no CVA tenderness BLADDER/KIDNEY EXAM: Yes no CVA tenderness Back/Pelvis: COMMON NORMALS: no CVA tenderness Neuro: COMMON NORMALS: patient oriented x3 SENSORIUM/ORIENTATION: Yes alert MENINGEAL SIGNS: Yes no meningeal signs Course 2 Vital Signs: Vital signs: Vital Signs Temperature 98.0 F 07/11/23 03:22 Pulse Rate 105 H 07/11/23 06:48 Respiratory Rate 18 07/11/23 06:48 Blood Pressure 114/73 07/11/23 06:48 Pulse Oximetry 95 07/11/23 06:48 Oxygen Delivery Me thod Room Air 07/11/23 03:58 MDM - General Adult Medical Decision Making Patient presents to the ER with high blood sugar. Patient lost consciousness fail. Is questionable whether or not patient lost his pulse and CPR was performed and needed. Lab work was obtained which revealed a sugar of 618. Patient was given 15 units of IV insulin and when sugar was rechecked it was substantially lower. Head CT was performed as well as EKG and serial troponins all of which were benign. Patient will be discharged home and is to follow-up with his PCP on an as-needed basis. Differential Diagnosis Syncope, hyperglycemia, Medical Records I reviewed the patient's medical records. Lab Data I reviewed the patient's lab results. 07/11/23 03:35 07/11/23 03:[address] 07/11/23 03:28 IMPRESSION: No acute intracranial abnormality. Laboratory Results WBC 7.82 10^3/uL (3.29-11.43) 07/11/23 03:35 RBC 5.81 10^6/uL (3.85-5.65) H 07/11/23 03:35 Hgb 16.90 g/dL (11.27-16.99) 07/11/23 03:35 Hct 50.7 % (37-53) 07/11/23 03:35 MCV 87.3 fl (82-101) 07/11/23 03:35 MCH 29.1 pg (27-33) 07/11/23 03:35 MCHC 33.3 g/dL (30-55) 07/11/23 03:35 RDW 14.7 % (12.1-15.1) 07/11/23 03:35 Plt Count 206 10^3/cmm (157-399) 07/11/23 03:35 MPV 10.6 fL (7.4-10.4) H 07/11/23 03:35 Neut % (Auto) 50.5 % 07/11/23 03:35 Lymph % (Auto) 39.3 % 07/11/23 03:35 [place] % (Auto) 8.3 % 07/11/23 03:35 Eos % (Auto) 0.9 % 07/11/23 03:35 Baso % (Auto) 0.4 % 07/11/23 03:35 Neut # (Auto) 3.95 10^3/uL (1.8-7.7) 07/11/23 03:35 Lymph # (Auto) 3.1 10^3/uL (0.8-4.8) 07/11/23 03:35 [place] # (Auto) 0.7 10^3/uL (0.2-0.9) 07/11/23 03:35 Eos # (Auto) 0.1 10^3/uL (0.0-0.8) 07/11/23 03:35 Baso # (Auto) 0.0 10^3/uL (0.0-0.1) 07/11/23 03:35 Nucleated RBC % (auto) 0 % 07/11/23 03:35 Nucleated RBCs # 0.0 /100WBC 07/11/23 03:35 Sodium 127 mmol/L (136-145) L 07/11/23 03:35 Potassium 4.9 mmol/L (3.5-5.1) 07/11/23 03:35 Chloride 87 mmol/L (98-107) L 07/11/23 03:35 Carbon Dioxide 28 mmol/L (22-29) 07/11/23 03:35 Anion Gap 16.9 (5-19) 07/11/23 03:35 BUN 13 mg/dL (6-20) 07/11/23 03:35 Creatinine 1.0 mg/dL (0.7-1.2) 07/11/23 03:35 GFR Calculation 81.2 mL/min (90-130) L 07/11/23 03:35 Glucose 618 mg/dL (65-115) H* 07/11/23 03:35 POC Glucose 565 mg/dL (70-110) H* 07/11/23 03:29 Calculated Osmolality 293 mOsm/kg (285-295) 07/11/23 03:35 Calcium 9.3 mg/dL (8.5-10.5) 07/11/23 03:35 Magnesium 1.9 mg/dL (1.7-2.3) 07/11/23 03:35 Total Bilirubin 0.2 mg/dL (0.15-1.2) 07/11/23 03:35 AST 10 U/L (0-40) 07/11/23 03:35 ALT 14 U/L (0-41) 07/11/23 03:35 Alkaline Phosphatase 101 U/L (40-130) 07/11/23 03:35 Troponin T Baseline 8 ng/L (0-15) 07/11/23 03:35 Troponin T 120 Minute 8.6 ng/L (0-15) 07/11/23 05:53 Delta Troponin T 0.6 ABS# (0-10) 07/11/23 05:53 Total Protein 6.7 g/dL (6.6-8.7) 07/11/23 03:35 Albumin 4.3 g/dL (3.5-5.2) 07/11/23 03:35 Globulin 2.4 g/dL (1.3-4.6) 07/11/23 03:35 Valproic Acid 84.9 ug/mL (50-100) 07/11/23 03:35 EKG Data EKG 1: I personally reviewed and interpreted this EKG as follows: EKG interpretation date: 07/11/23 EKG interpretation time: 03:34 Prior EKG tracings: not available for review Interpretation: EKG showed ventricular rate 111 beats minute, UT interval 191, QRS duration 109, QTc of 380, sinus tachycardia, Q waves in V3 and V4, no ST-T wave changes Computer generated interpretation: Head CT 07/11/23 03:28 IMPRESSION: No acute intracranial abnormality. EKG 2: I personally reviewed and interpreted this EKG as follows: EKG interpretation date: 07/11/23 EKG interpretation time: 04:14 Prior EKG tracings: available for review Interpretation: EKG showed ventricular rate 108 bpm, UT interval 195, QRS duration 112, QTc of 390, sinus tachycardia, Q waves in V3 and V4, Computer generated interpretation: Head CT 07/11/23 03:28 IMPRESSION: No acute intracranial abnormality. Discharge Plan Discharge Patient Disposition: Home Clinical Impression: Acute hyperglycemia Syncope Qualifiers: Syncope type: unspecified Qualified Code(s): R55 - Syncope and collapse Condition: Stable Prescriptions: No Action gabapentin [Neurontin] 300 mg capsule 300 mg PO BID atorvastatin 40 mg tablet 40 mg PO BEDTIME metformin 500 mg tablet extended release 24hr 1,000 mg PO DAILY insulin lispro [Humalog KwikPen Insulin] 100 unit/mL insulin pen 4 unit SUBCUT Q6H PRN (Reason: diabetes) 30 Days Qty: 15 0RF Rx Instructions: 4 units prn every 6hrs for BG above 400 Mounjaro 2.5 mg/0.5 mL pen injector 2.5 mg SUBCUT Q7D 30 Days Qty: 2.5 0RF Rx Instructions: 2.5mg weekly for 1month; 5mg weekly for 1month; 7.5mg weekly and continue Mounjaro 7.5 mg/0.5 mL pen injector 7.5 mg SUBCUT Q7D 30 Days Qty: 2.5 0RF venlafaxine 150 mg capsule,extended release 24hr 150 mg PO DAILY 30 Days Qty: 30 3RF hydroxyzine HCl 50 mg tablet 50 mg PO QID PRN (Reason: anxiety or sleep) 30 Days Qty: 120 3RF haloperidol 5 mg tablet 5 mg PO .qhs 30 Days Qty: 30 3RF divalproex 500 mg tablet extended release 24 hr 2,000 mg PO BEDTIME 30 Days Qty: 120 4RF aripiprazole 30 mg tablet 15 mg PO DAILY 30 Days Qty: 30 3RF Lantus Solostar U-100 Insulin 100 unit/mL (3 mL) insulin pen 50 unit SUBCUT BEDTIME ferrous sulfate [iron] 325 mg (65 mg iron) Tablet 325 mg PO DAILY bismuth subsalicylate [Stomach Relief] 262 mg/15 mL suspension See Rx Instructions .ROUTE .COMPLEX Rx Instructions: 1 mL PO NEEDED irbesartan 150 mg tablet 150 mg PO DAILY Discharge Orders: Discharge ED (Routine); Ordered 07/11/23 Ordered By: Deep Swann Referrals: Blair Cheatham MD [Primary Care Provider] - Patient Instructions: Diabetic Hyperglycemia (ED) Coding Level of Care Code ED Welder Manufacture for Dasha Nix
[2023-07-11 03:40] LABS: Basophils % 0.4 %; Eosinophils # 0.1 10^3/uL (0.0-0.8); Eosinophils % 0.9 %; Hematocrit 50.7 % (37-53); Lymphocytes # 3.1 10^3/uL (0.8-4.8); Lymphocytes % 39.3 %; Mean Corpuscular HGB Conc 33.3 g/dL (30-55); Mean Corpuscular Hemoglobin 29.1 pg (27-33); Mean Corpuscular Volume 87.3 fl (82-101); Mean Platelet Volume 10.6 fL (7.4-10.4); Monocytes # 0.7 10^3/uL (0.2-0.9); Monocytes % 8.3 %; Neutrophils # 3.95 10^3/uL (1.8-7.7); Neutrophils % 50.5 %; Nucleated Red Blood Cells % 0 %; Platelet Count 206 10^3/cmm (157-399); Red Blood Count 5.81 10^6/uL (3.85-5.65); Red Cell Distribution Width 14.7 % (12.1-15.1); White Blood Count 7.82 10^3/uL (3.29-11.43)
[2023-07-11 03:42] LABS: Glucose Point of Care 565 mg/dL (70-110)
[2023-07-11] MEDS: sodium chloride 0.9% 1,000 ML 999 ML IV (03:52)
[2023-07-11] MEDS: insulin regular-human 100 units/1 mL 15 UNIT IVP (03:52)
[2023-07-11 03:58] VITALS: BP 128/75; PULSE 110; O2SAT 92
[2023-07-11 04:00] LABS: Troponin(5th) Baseline 8 ng/L (0-15)
[2023-07-11 04:02] LABS: Alanine Aminotransferase 14 U/L (0-41); Albumin Level 4.3 g/dL (3.5-5.2); Alkaline Phosphatase 101 U/L (40-130); Anion Gap 16.9 (5-19); Aspartate Amino Transferase 10 U/L (0-40); Blood Urea Nitrogen 13 mg/dL (6-20); Calcium 9.3 mg/dL (8.5-10.5); Carbon Dioxide 28 mmol/L (22-29); Chloride 87 mmol/L (98-107); Globulin 2.4 g/dL (1.3-4.6); Glomerular Filtration Rate 81.2 mL/min (90-130); Magnesium 1.9 mg/dL (1.7-2.3); Osmolality Calculated 293 mOsm/kg (285-295); Potassium 4.9 mmol/L (3.5-5.1); Sodium 127 mmol/L (136-145); Total Bilirubin 0.2 mg/dL (0.15-1.2); Total Protein 6.7 g/dL (6.6-8.7); Valproic Acid Level 84.9 ug/mL (50-100)
[2023-07-11] MEDS: ondansetron 2 mg/ML SDV 2 mL 4 MG IVP (04:05)
[2023-07-11 04:12] LABS: Glucose 618 mg/dL (65-115)
--- NOTE | 2023-07-11 04:13 | PC.NURSE ---
Dr Swann notified of critical lab report of blood glucose.
--- NOTE | 2023-07-11 04:14 | ECG_ITS ---
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 Measurements Intervals [place] Rate: 108 P: 40 ND: 195 QRS: 32 QRSD: 112 T: 21 QT: 326 QTc: 439 Interpretive Statements SINUS TACHYCARDIA POSSIBLE ANTERIOR MYOCARDIAL INFARCTION , OF INDETERMINATE AGE [30 ms Q WAVE IN V3/V4, OR R < 0.2 mV IN V4] Compared to ECG 06/04/2023 21:40:25 Left-axis deviation no longer present Myocardial infarct finding still present Electronically Signed On 07-11-2023 15:45:14 CDT by Cheikh Navarrete M.D. [id number] susie
--- NOTE | 2023-07-11 04:53 | PC.NURSE ---
Pt's O2 levels on room air kept dropping into high 80s. Dr Swann notified. Pt was placed on 2L nasal cannula, saturations now in low to mid 90s.
--- NOTE | 2023-07-11 04:55 | PC.NURSE ---
Dr Swann notified that pt's blood glucose after fluids and insulin was 297. No further orders received at this time.
--- NOTE | 2023-07-11 05:49 | ECG_ITS ---
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 Measurements Intervals [place] Rate: 109 P: 28 [place]: 179 QRS: 86 QRSD: 108 T: 29 QT: 322 QTc: 435 Interpretive Statements SINUS TACHYCARDIA INDETERMINATE AXIS POSSIBLE ANTERIOR MYOCARDIAL INFARCTION , OF INDETERMINATE AGE [30 ms Q WAVE IN V3/V4, OR R < 0.2 mV IN V4] Compared to ECG 07/11/2023 04:14:23 Indeterminate axis now present Myocardial infarct finding still present Electronically Signed On 07-11-2023 15:47:23 CDT by Cheikh Navarrete M.D. [id number]
[2023-07-11 06:01] VITALS: BP 114/78; PULSE 102; O2SAT 19
[2023-07-11 06:25] LABS: Troponin 5 2HR 8.6 ng/L (0-15); Troponin 5 2HR Delta 0.6 ABS# (0-10)
[2023-07-11 06:48] VITALS: BP 114/73; PULSE 105; RESP 18; O2SAT 95
[2023-07-13 08:30] LABS: Glucose Point of Care 297 mg/dL (70-110)
== END 2023-07-11 06:54 | disposition home or self-care (01) ==
PROVIDERS: Emergency Provider Emergency Medicine; PCP Family Medicine
DX: E11.65 Type 2 diabetes mellitus with hyperglycemia (principal); R55 Syncope and collapse; Z79.4 Long term (current) use of insulin; Z79.84 Long term (current) use of oral hypoglycemic drugs; E78.5 Hyperlipidemia, unspecified; I10 Essential (primary) hypertension; F17.290 Nicotine dependence, other tobacco product, uncomplicated
CPT/HCPCS: 36416; 70450; 80053; 80164; 82962; 83735; 84484; 85025; 93005; 96361; 96374; 99285; J1815; J2405; J7030

== ENCOUNTER 2023-07-18 03:06 | Emergency (ER) | payer MEDICARE, MEDICAID, SELFPAY ==
[2023-07-18 03:07] VITALS: BP 154/111; PULSE 120; RESP 19; TEMP 36.5; O2SAT 94; BMI 43.4
--- NOTE | 2023-07-18 03:15 | ED.C_ITS ---
HPI - Psych General: Chief Complaint: General Medical Stated Complaint: behavioral evaluation Time Seen by Provider: 07/18/23 03:07 History of Present Illness: Patient presents to the ER by EMS with complaints of only sleeping 3 to 4 hours last 3-4 nights. Patient also complains of his mind is just not working right he is not thinking straight. He is more emotional jittery and nervous than normal. Patient used to be on sleeping medicine did help but the doctor took him off of it because it interacted with some of his other medicines. Patient denies suicidal or homicidal ideation at this time. Review of Systems General: Reports: 10 or more systems reviewed and unremarkable except in HPI a nd below PFSH ED PFSH: Medical History Bipolar 1 disorder Fracture of triquetrum Hyperlipidemia Hypertension Other reactions to severe stress Peripheral neuropathy Psychiatric care Pulmonary embolism Type 2 diabetes mellitus Surgical History History of appendectomy Social History Smoking and tobacco status: current every day smoker e-cigarettes Alcohol intake: current Alcohol intake frequency: few times a month Substance/Drug Use: never Marital status: Single Physical Exam Const: COMMON NORMALS: no acute distress, average body habitus, patient oriented x3, no limitations, healthy appearing, alert and well nourished HENMT: COMMON NORMALS: normocephalic, atraumatic, hearing grossly normal bilaterally, external ears normal, Normal external nose present and moist oral mucous membranes HEAD & SCALP: normocephalic and atraumatic NOSE: Normal external nose present EXTERNAL EAR: Yes external ears normal Eye: COMMON NORMALS: Equal, round and reactive pupils present, EOMs intact bilaterally, conjunctivae normal and no scleral icterus CONJUNCTIVA: Yes conjunctivae normal PUPIL: Yes Equal, round and reactive pupils present Neck/C-Spine: COMMON NORMALS: full ROM, no lymphadenopathy, supple, no meningeal signs, no JVD and Thyroid normal THYROID: Thyroid normal Chest: COMMONS NORMALS: normal inspection of the chest and normal palpation of entire chest wall Resp: COMMON NORMALS: normal respiratory effort, No retractions, No use of accessory muscles and clear to auscultation bilaterally AUSCULTATION: clear to auscultation bilaterally Cardio: COMMON NORMALS: no JVD, regular rate, regular rhythm, S1 normal heart sound present, S2 normal heart sound present, No gallops present (Cardio), No clicks present (Cardio), No murmurs present (Cardio) and No rub (Cardio) RATE: regular rate RHYTHM: regular rhythm HEART SOUNDS: S1 normal heart sound present and S2 normal heart sound present GI: COMMON NORMALS: Normal to inspection, nondistended, normoactive bowel sounds present, Soft to palpation, non-tender and No hepatosplenomegaly present PALPATION: Yes Soft to palpation and Yes No hepatosplenomegaly present : COMMON NORMALS: Yes no CVA tenderness BLADDER/KIDNEY EXAM: Yes no CVA tenderness Back/Pelvis: COMMON NORMALS: no CVA tenderness Neuro: COMMON NORMALS: patient oriented x3 SENSORIUM/ORIENTATION: Yes alert MENINGEAL SIGNS: Yes no meningeal signs Course Vital Signs: Vital signs: Vital Signs Temperature 97.7 F 07/18/23 03:07 Pulse Rate 130 H 07/18/23 04:14 Respiratory Rate 22 H 07/18/23 04:14 Blood Pressure 136/98 07/18/23 04:14 Pulse Oximetry 94 07/18/23 04:14 Oxygen Delivery Me thod Room Air 07/18/23 04:14 MDM - Psych Medical Decision Making Patient presented to the ER by EMS after not getting along with his people at his residence. Patient [place] suicidal homicidal ideation. Patient also states his blood sugars elevated. Patient is had lab work which showed his glucose was 273. As well as the rest of his lab work was essentially benign. Other than 4+ glucose in his urine and urine drug screen positive for benzodiazepines. During the patient's stay here in ER patient was calm and cooperative patient did get 10 mg of Haldol p.o. to help him calm down and sleep. Patient be discharged back to the facility. Differential Diagnosis Unlikely acute psychosis, chronic schizophrenia, suicidal ideation, bipolar disorder, depression, drug-induced psychotic disorder or acute anxiety Lab Data 07/18/23 03:40 07/18/23 03:40 Laboratory Results WBC 6.20 10^3/uL (3.29-11.43) 07/18/23 03:40 RBC 5.70 10^6/uL (3.85-5.65) H 07/18/23 03:40 Hgb 16.70 g/dL (11.27-16.99) 07/18/23 03:40 Hct 49.8 % (37-53) 07/18/23 03:40 MCV 87.4 fl (82-101) 07/18/23 03:40 MCH 29.3 pg (27-33) 07/18/23 03:40 MCHC 33.5 g/dL (30-55) 07/18/23 03:40 RDW 14.4 % (12.1-15.1) 07/18/23 03:40 Plt Count 181 10^3/cmm (157-399) 07/18/23 03:40 MPV 10.7 fL (7.4-10.4) H 07/18/23 03:40 Neut % (Auto) 44.1 % 07/18/23 03:40 Lymph % (Auto) 44.7 % 07/18/23 03:40 [place] % (Auto) 8.9 % 07/18/23 03:40 Eos % (Auto) 1.3 % 07/18/23 03:40 Baso % (Auto) 0.5 % 07/18/23 03:40 Neut # (Auto) 2.74 10^3/uL (1.8-7.7) 07/18/23 03:40 Lymph # (Auto) 2.8 10^3/uL (0.8-4.8) 07/18/23 03:40 [place] # (Auto) 0.6 10^3/uL (0.2-0.9) 07/18/23 03:40 Eos # (Auto) 0.1 10^3/uL (0.0-0.8) 07/18/23 03:40 Baso # (Auto) 0.0 10^3/uL (0.0-0.1) 07/18/23 03:40 Nucleated RBC % (auto) 0 % 07/18/23 03:40 Nucleated RBCs # 0.0 /100WBC 07/18/23 03:40 Sodium 136 mmol/L (136-145) 07/18/23 03:40 BUN 17 mg/dL (6-20) 07/18/23 03:40 Creatinine 1.0 mg/dL (0.7-1.2) 07/18/23 03:40 POC Glucose 273 mg/dL (70-110) H 07/18/23 04:14 Calculated Osmolality 295 mOsm/kg (285-295) 07/18/23 03:40 Calcium 9.3 mg/dL (8.5-10.5) 07/18/23 03:40 Total Bilirubin 0.2 mg/dL (0.15-1.2) 07/18/23 03:40 AST 5 U/L (0-40) 07/18/23 03:40 ALT < 5 U/L (0-41) 07/18/23 03:40 Alkaline Phosphatase 100 U/L (40-130) 07/18/23 03:40 Total Protein 6.8 g/dL (6.6-8.7) 07/18/23 03:40 Albumin 4.2 g/dL (3.5-5.2) 07/18/23 03:40 Globulin 2.6 g/dL (1.3-4.6) 07/18/23 03:40 Urine Color Yellow (Yellow) 07/18/23 04:13 Urine Appearance Clear (CLEAR) 07/18/23 04:13 Urine pH 6 (5-7) 07/18/23 04:13 Ur Specific [place] 1.010 (1.005-1.030) 07/18/23 04:13 Urine Protein Neg (Negative) 07/18/23 04:13 Urine Glucose (UA) 4+ (Normal) H 07/18/23 04:13 Urine Ketones 1+ (Negative) H 07/18/23 04:13 Urine Blood Neg (Negative) 07/18/23 04:13 Urine Nitrate Negative (Negative) 07/18/23 04:13 Urine Bilirubin Neg (Negative) 07/18/23 04:13 Urine Urobilinogen Neg mg/dL (Negative) 07/18/23 04:13 Ur Leukocyte Esterase Negative (Negative) 07/18/23 04:13 Urine Opiates Screen Negative ng/mL (Negative) 07/18/23 04:13 Ur Barbiturates Screen Negative ng/mL (Negative) 07/18/23 04:13 Valproic Acid 52.4 ug/mL (50-100) 07/18/23 03:40 Ur Phencyclidine Scrn Negative ng/mL (Negative) 07/18/23 04:13 Ur Amphetamines Screen Negative ng/mL (Negative) 07/18/23 04:13 U Benzodiazepines Scrn Positive ng/mL (Negative) H 07/18/23 04:13 Urine Cocaine Screen Negative ng/mL (Negative) 07/18/23 04:13 U Marijuana (THC) Screen Negative ng/mL (Negative) 07/18/23 04:13 EKG Data EKG 1: I personally reviewed and interpreted this EKG as follows: EKG interpretation date: 07/18/23 EKG interpretation time: 03:09 Prior EKG tracings: not available for review Interpretation: EKG shows ventricular rate 111 bpm, [place] interval 197, QRS duration 109, QTc of 389, sinus tachycardia, left axis deviation, Q waves in V3 V4 Discharge Plan Discharge Patient Disposition: Home Clinical Impression: Acute hyperglycemia Condition: Stable Prescriptions: No Action gabapentin [Neurontin] 300 mg capsule 300 mg PO BID atorvastatin 40 mg tablet 40 mg PO BEDTIME metformin 500 mg tablet extended release 24hr 1,000 mg PO DAILY insulin lispro [Humalog KwikPen Insulin] 100 unit/mL insulin pen 4 unit SUBCUT Q6H PRN (Reason: diabetes) 30 Days Qty: 15 0RF Rx Instructions: 4 units prn every 6hrs for BG above 400 Mounjaro 2.5 mg/0.5 mL pen injector 2.5 mg SUBCUT Q7D 30 Days Qty: 2.5 0RF Rx Instructions: 2.5mg weekly for 1month; 5mg weekly for 1month; 7.5mg weekly and continue Mounjaro 7.5 mg/0.5 mL pen injector 7.5 mg SUBCUT Q7D 30 Days Qty: 2.5 0RF venlafaxine 150 mg capsule,extended release 24hr 150 mg PO DAILY 30 Days Qty: 30 3RF hydroxyzine HCl 50 mg tablet 50 mg PO QID PRN (Reason: anxiety or sleep) 30 Days Qty: 120 3RF haloperidol 5 mg tablet 5 mg PO .qhs 30 Days Qty: 30 3RF divalproex 500 mg tablet extended release 24 hr 2,000 mg PO BEDTIME 30 Days Qty: 120 4RF aripiprazole 30 mg tablet 15 mg PO DAILY 30 Days Qty: 30 3RF Lantus Solostar U-100 Insulin 100 unit/mL (3 mL) insulin pen 50 unit SUBCUT BEDTIME ferrous sulfate [iron] 325 mg (65 mg iron) Tablet 325 mg PO DAILY bismuth subsalicylate [Stomach Relief] 262 mg/15 mL suspension See Rx Instructions .ROUTE .COMPLEX Rx Instructions: 1 mL PO NEEDED irbesartan 150 mg tablet 150 mg PO DAILY Discharge Orders: Discharge ED (Routine); Ordered 07/18/23 Ordered By: Deep Swann Referrals: Blair Cheatham MD [Primary Care Provider] - Patient Instructions: Diabetic Hyperglycemia (ED) Activity Restrictions/Additional Instructions: Please check your sugar as needed. Please use your insulin as directed. Please follow-up with your family practice physician within the next 7 days for further evaluation and treatment. Coding Level of Care Code ED Child Watch Attendant for Dasha Nix
[2023-07-18 03:17] VITALS: BP 154/111; PULSE 111; RESP 16; O2SAT 93
--- NOTE | 2023-07-18 03:18 | ECG_ITS ---
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 Measurements Intervals [place] Rate: 111 P: 44 MT: 197 QRS: -35 QRSD: 109 T: 46 QT: 323 QTc: 440 Interpretive Statements SINUS TACHYCARDIA LEFT AXIS DEVIATION [QRS AXIS < -30] POSSIBLE ANTERIOR MYOCARDIAL INFARCTION , OF INDETERMINATE AGE [30 ms Q WAVE IN V3/V4, OR R < 0.2 mV IN V4] Compared to ECG 07/11/2023 05:49:43 Left-axis deviation now present Indeterminate axis no longer present Myocardial infarct finding still present Electronically Signed On 07-18-2023 8:54:36 CDT by Migdalia Chavez M.D. [id number] f
--- NOTE | 2023-07-18 03:22 | PC.NURSE ---
glucose 241 via finger stick
[2023-07-18 03:24] LABS: Glucose Point of Care 281 mg/dL (70-110)
[2023-07-18] MEDS: haloperidol 5 mg Tablet 10 MG PO (03:27)
[2023-07-18 03:28] VITALS: BP 139/89
[2023-07-18 03:45] LABS: Basophils % 0.5 %; Eosinophils # 0.1 10^3/uL (0.0-0.8); Eosinophils % 1.3 %; Hematocrit 49.8 % (37-53); Lymphocytes # 2.8 10^3/uL (0.8-4.8); Lymphocytes % 44.7 %; Mean Corpuscular HGB Conc 33.5 g/dL (30-55); Mean Corpuscular Hemoglobin 29.3 pg (27-33); Mean Corpuscular Volume 87.4 fl (82-101); Mean Platelet Volume 10.7 fL (7.4-10.4); Monocytes # 0.6 10^3/uL (0.2-0.9); Monocytes % 8.9 %; Neutrophils # 2.74 10^3/uL (1.8-7.7); Neutrophils % 44.1 %; Nucleated Red Blood Cells % 0 %; Platelet Count 181 10^3/cmm (157-399); Red Cell Distribution Width 14.4 % (12.1-15.1)
[2023-07-18 04:07] LABS: Valproic Acid Level 52.4 ug/mL (50-100)
[2023-07-18 04:08] LABS: Albumin Level 4.2 g/dL (3.5-5.2); Alkaline Phosphatase 100 U/L (40-130); Blood Urea Nitrogen 17 mg/dL (6-20); Calcium 9.3 mg/dL (8.5-10.5); Carbon Dioxide 30 mmol/L (22-29); Chloride 95 mmol/L (98-107); Globulin 2.6 g/dL (1.3-4.6); Glomerular Filtration Rate 81.2 mL/min (90-130); Glucose 305 mg/dL (65-115); Osmolality Calculated 295 mOsm/kg (285-295); Sodium 136 mmol/L (136-145); Total Bilirubin 0.2 mg/dL (0.15-1.2); Total Protein 6.8 g/dL (6.6-8.7)
[2023-07-18 04:14] VITALS: BP 136/98; PULSE 130; RESP 22; O2SAT 94
[2023-07-18 04:17] LABS: Glucose Point of Care 273 mg/dL (70-110)
[2023-07-18 04:18] LABS: Add Urine Microscopic? NO; Charge for UA Resulting for Rev
[2023-07-18 04:19] LABS: Alanine Aminotransferase < 5 U/L (0-41); Aspartate Amino Transferase 5 U/L (0-40)
[2023-07-18 04:20] LABS: Bilirubin Urine Neg (Negative); Blood Urine Neg (Negative); Glucose Urine UA 4+ (Normal); Ketones Urine 1+ (Negative); Leukocyte Esterase Urine Negative (Negative); Nitrate Urine Negative (Negative); Protein Urine Neg (Negative); Urine Appearance Clear (CLEAR); Urine Color Yellow (Yellow); Urobilinogen Urine Neg (Negative); pH Urine 6 (5-7)
--- NOTE | 2023-07-18 04:21 | PC.NURSE ---
caregiver/staff from [facility] at bedside. 1:1 sitter outside room 9
[2023-07-18 04:29] LABS: Amphetamines Screen Urine Negative (Negative); Barbiturates Screen Urine Negative (Negative); Benzodiazepines Screen Urine Positive (Negative); Cocaine Screen Urine Negative (Negative); Opiate Screen Urine Negative (Negative); PCP Screen Urine Negative (Negative); THC Screen Urine Negative (Negative)
[2023-07-18 04:36] VITALS: BP 139/77; PULSE 113; RESP 17; O2SAT 91
[2023-07-18 04:46] LABS: Anion Gap 14.8 (5-19)
[2023-07-18 04:47] LABS: Potassium 3.8 mmol/L (3.5-5.1)
[2023-07-18] MEDS: acetaminophen 500 mg Tablet 1000 MG PO (05:01)
--- NOTE | 2023-07-18 05:02 | PC.NURSE ---
sent pt home with 10mg Ambien per Dr. Swann
== END 2023-07-18 05:08 | disposition home or self-care (01) ==
PROVIDERS: Emergency Provider Emergency Medicine; PCP Family Medicine
DX: E11.65 Type 2 diabetes mellitus with hyperglycemia (principal); Z79.4 Long term (current) use of insulin; Z79.84 Long term (current) use of oral hypoglycemic drugs; E78.5 Hyperlipidemia, unspecified; I10 Essential (primary) hypertension; F17.290 Nicotine dependence, other tobacco product, uncomplicated
CPT/HCPCS: 36415; 36416; 80053; 80164; 80306; 81003; 82962; 85025; 93005; 99284

== ENCOUNTER 2023-08-01 02:50 | Emergency (ER) | payer MEDICARE, MEDICAID, SELFPAY ==
[2023-08-01 02:53] VITALS: BP 142/105; PULSE 120; RESP 16; TEMP 36.1; O2SAT 93; BMI 43.4
--- NOTE | 2023-08-01 03:06 | ED.C_ITS ---
HPI - Psych General: Chief Complaint: Psychiatric Symptoms Stated Complaint: Depressed wants something to sleep Time Seen by Provider: 08/01/23 02:59 Source: patient Mode of arrival: ambulatory Limitations: no limitations History of Present Illness: 43-year-old male is very well-known to the ER states that over the last few days been having some increasing anxiety and depression he states that his ps ychiatric doctor at she has changed him his meds and he has had some increased anxiety and mood swings he is depressed he denies any suicidal or homicidal ideation he is calm I am talking to him. He denies any worsening proving factors at this time Associated symptoms: Reports depression Review of Systems Const: Denies: fever(s), chills, body aches or change in appetite Eyes: Denies: blurry vision or eye discomfort ENMT: Denies: throat pain or dental pain Card: Denies: chest pain Resp: Denies: dyspnea GI: Denies: abdominal pain, nausea, vomiting or diarrhea Musc: Denies: neck pain or back pain Skin/Breast: Denies: rash Neuro: Denies: headache(s) Psych: Reports: anxiety and depression PFSH ED PFSH: Medical History Bipolar 1 disorder Fracture of triquetrum Hyperlipidemia Hypertension Other reactions to severe stress Peripheral neuropathy Psychiatric care Pulmonary embolism Type 2 diabetes mellitus Surgical History History of appendectomy Social History Smoking and tobacco status: current every day smoker e-cigarettes Alcohol intake: current Alcohol intake frequency: few times a month Substance/Drug Use: never Marital status: Single Physical Exam Const: COMMON NORMALS: no acute distress, patient oriented x3 and healthy appearing HENMT: COMMON NORMALS: normocephalic and atraumatic HEAD & SCALP: normocephalic and atraumatic Eye: COMMON NORMALS: conjunctivae normal CONJUNCTIVA: Yes conjunctivae normal Neck/C-Spine: COMMON NORMALS: full ROM and supple Chest: COMMONS NORMALS: normal inspection of the chest Resp: COMMON NORMALS: normal respiratory effort Cardio: COMMON NORMALS: regular rate, regular rhythm and No murmurs present (Cardio) RATE: regular rate RHYTHM: regular rhythm GI: INSPECTION: Yes normal to inspection Extremity: COMMON NORMALS: normal to inspection and full ROM Neuro: COMMON NORMALS: patient oriented x3, moves all extremities and no focal motor deficits Psych: COMMON NORMALS: mental status grossly normal, Normal thought process present and cooperative THOUGHT PROCESS: Normal thought process present Skin: COMMON NORMALS: no rashes or lesions noted and no wounds GENERAL SKIN EXAM: no rashes or lesions noted Course Vital Signs: Vital signs: Vital Signs Temperature 96.9 F L 08/01/23 02:53 Pulse Rate 120 H 08/01/23 02:53 Respiratory Rate 16 08/01/23 02:53 Blood Pressure 142/105 08/01/23 02:53 Pulse Oximetry 93 08/01/23 02:53 Oxygen Delivery Me thod Room Air 08/01/23 02:53 MDM - Psych Medical Decision Making Patient presents with anxiety along with depression he is not suicidal or homicidal he has been seen here multiple times for the same is given Ativan here he is to follow-up with [facility] return if worsening he understands agrees to plan. No radiology studies performed this visit Discharge Plan Discharge Patient Disposition: Home Clinical Impression: Depression, Anxiety Condition: Stable Prescriptions: No Action gabapentin [Neurontin] 300 mg capsule 300 mg PO BID atorvastatin 40 mg tablet 40 mg PO BEDTIME metformin 500 mg tablet extended release 24hr 1,000 mg PO DAILY Mounjaro 2.5 mg/0.5 mL pen injector 2.5 mg SUBCUT Q7D 30 Days Qty: 2.5 0RF Rx Instructions: 2.5mg weekly for 1month; 5mg weekly for 1month; 7.5mg weekly and continue Mounjaro 7.5 mg/0.5 mL pen injector 7.5 mg SUBCUT Q7D 30 Days Qty: 2.5 0RF aripiprazole 30 mg tablet 15 mg PO BID 30 Days Qty: 30 3RF divalproex 500 mg tablet extended release 24 hr 2,000 mg PO BEDTIME 30 Days Qty: 120 4RF venlafaxine 75 mg capsule,extended release 24hr 225 mg PO DAILY 30 Days Qty: 90 3RF insulin lispro [Humalog KwikPen Insulin] 100 unit/mL insulin pen See Rx Instructions .ROUTE .COMPLEX Qty: 15 0RF Dose Instruction: INJECT FOUR UNITS SUBCUTANEOUSLY EVERY 6 HOURS NEEDED FOR BG ABOVE 400 Rx Instructions: INJECT FOUR UNITS SUBCUTANEOUSLY EVERY 6 HOURS NEEDED FOR BG ABOVE 400 Lantus Solostar U-100 Insulin 100 unit/mL (3 mL) insulin pen 50 unit SUBCUT BEDTIME ferrous sulfate [iron] 325 mg (65 mg iron) Tablet 325 mg PO DAILY bismuth subsalicylate [Stomach Relief] 262 mg/15 mL suspension See Rx Instructions .ROUTE .COMPLEX Rx Instructions: 1 mL PO NEEDED irbesartan 150 mg tablet 150 mg PO DAILY Discharge Orders: Discharge ED (Routine); Ordered 08/01/23 Ordered By: Wale Vyas Referrals: Blair Cheatham MD [Primary Care Provider] - 1-3 days Discharge Diet: Advance as tolerated Discharge Activity: Resume usual activity Patient Instructions: Anxiety (ED) Coding Level of Care Code ED [employer] for Dasha Nix
[2023-08-01] MEDS: LORazepam 1 mg Tablet PO (03:08)
--- NOTE | 2023-08-01 03:08 | PC.NURSE ---
pt is not having SI or HI
--- NOTE | 2023-08-01 08:07 | PC.SOCIAL ---
[facility] Referral Referral to [facility] sent at this time. Clinic to contact patient with appt information.
== END 2023-08-01 03:13 | disposition home or self-care (01) ==
PROVIDERS: Emergency Provider Emergency Medicine; PCP Family Medicine
DX: F41.8 Other specified anxiety disorders (principal); Z79.4 Long term (current) use of insulin; Z79.84 Long term (current) use of oral hypoglycemic drugs; E78.5 Hyperlipidemia, unspecified; I10 Essential (primary) hypertension; E11.9 Type 2 diabetes mellitus without complications; F17.290 Nicotine dependence, other tobacco product, uncomplicated
CPT/HCPCS: 99283

== ENCOUNTER → 2023-08-02 09:12 | Outpatient (BNVA) | payer MEDICARE, MEDICAID, SELFPAY | PROVIDERS: PCP Family Medicine; Visit Provider Nurse Practitioner Family | DX: Q24.5 Malformation of coronary vessels (principal) | CPT/HCPCS: 99213 ==

== ENCOUNTER 2023-08-24 02:34 | Emergency (ER) | payer MEDICARE, MEDICAID, SELFPAY ==
[2023-08-24 02:34] VITALS: BP 115/59; PULSE 117; RESP 20; TEMP 36.4; O2SAT 93; BMI 30.3
--- NOTE | 2023-08-24 02:38 | ED_ITS ---
HPI - General Adult General: Chief complaint: Recheck/Abnormal Lab/Rx Stated complaint: LOW BLOOD SUGAR Time Seen by Provider: 08/24/23 02:35 Source: patient and EMS Mode of arrival: EMS Limitations: no limitations History of Present Illness: 43-year-old male is very well-known to the ER states that he was hyperglycemic throughout the day and felt weak this evening with EMS his blood sugar was in the 80s he denies any other symptoms denies any vomiting or diarrhea. Associated symptoms: Deny chest pain, dyspnea, headache(s), nausea, rash or vomiting Review of Systems Const: Reports: fatigue; Denies: fever(s), chills, body aches or change in appetite ENMT: Denies: throat pain or dental pain Card: Denies: chest pain Resp: Denies: dyspnea GI: Denies: abdominal pain, nausea, vomiting or diarrhea : Denies: dysuria Musc: Denies: neck pain or back pain Skin/Breast: Denies: rash Neuro: Denies: headache(s) PFSH ED PFSH: Medical History Bipolar 1 disorder Coronary-myocardial bridge Fracture of triquetrum Hyperlipidemia Hypertension Other reactions to severe stress Peripheral neuropathy Psychiatric care Pulmonary embolism Type 2 diabetes mellitus Surgical History History of appendectomy Social History Smoking and tobacco/nicotine status: current every day tobacco/nicotine user e- cigarettes Alcohol intake: current Alcohol intake frequency: few times a month Substance/Drug Use: never Marital status: Single Physical Exam Const: COMMON NORMALS: no acute distress, patient oriented x3 and healthy appearing HENMT: COMMON NORMALS: normocephalic and atraumatic HEAD & SCALP: normocephalic and atraumatic Eye: COMMON NORMALS: Equal, round and reactive pupils present and EOMs intact bilaterally PUPIL: Yes Equal, round and reactive pupils present Neck/C-Spine: COMMON NORMALS: full ROM and supple Chest: COMMONS NORMALS: normal inspection of the chest and normal palpation of entire chest wall Resp: COMMON NORMALS: normal respiratory effort, No retractions, No use of accessory muscles and clear to auscultation bilaterally AUSCULTATION: clear to auscultation bilaterally Cardio: COMMON NORMALS: regular rhythm and No murmurs present (Cardio) RATE : tachycardic RHYTHM: regular rhythm GI: COMMON NORMALS: Normal to inspection, nondistended, normoactive bowel sounds present, Soft to palpation, non-tender and no masses PALPATION: Yes Soft to palpation Extremity: COMMON NORMALS: normal to inspection and full ROM Neuro: COMMON NORMALS: patient oriented x3, moves all extremities and no focal motor deficits Psych: COMMON NORMALS: mental status grossly normal, Normal thought process present and cooperative THOUGHT PROCESS: Normal thought process present Skin: COMMON NORMALS: no rashes or lesions noted and no wounds GENERAL SKIN EXAM: no rashes or lesions noted Course Vital Signs: Vital signs: Vital Signs Temperature 97.6 F 08/24/23 02:34 Pulse Rate 117 H 08/24/23 02:34 Respiratory Rate 20 H 08/24/23 02:34 Blood Pressure 115/59 08/24/23 02:50 Pulse Oximetry 89 L 08/24/23 02:50 Oxygen Delivery Me thod Room Air 08/24/23 02:50 Oxygen Flow Rate 2 08/24/23 02:34 MDM - General Adult Medical Decision Making Patient presents with hyperglycemia blood sugars here have been normal he is stable for discharge patient is to follow-up with PCP and return if worsening Medical Records I reviewed the patient's medical records. Lab Data I reviewed the patient's lab results. 08/24/23 02:44 08/24/23 02:44 Laboratory Results WBC 9.53 10^3/uL (3.29-11.43) 08/24/23 02:44 RBC 5.79 10^6/uL (3.85-5.65) H 08/24/23 02:44 Hgb 17.10 g/dL (11.27-16.99) H 08/24/23 02:44 Hct 51.7 % (37-53) 08/24/23 02:44 MCV 89.3 fl (82-101) 08/24/23 02:44 MCH 29.5 pg (27-33) 08/24/23 02:44 MCHC 33.1 g/dL (30-55) 08/24/23 02:44 RDW 14.1 % (12.1-15.1) 08/24/23 02:44 Plt Count 219 10^3/cmm (157-399) 08/24/23 02:44 MPV 10.7 fL (7.4-10.4) H 08/24/23 02:44 Neut % (Auto) 56.8 % 08/24/23 02:44 Lymph % (Auto) 31.9 % 08/24/23 02:44 [place] % (Auto) 8.9 % 08/24/23 02:44 Eos % (Auto) 0.8 % 08/24/23 02:44 Baso % (Auto) 0.4 % 08/24/23 02:44 Neut # (Auto) 5.41 10^3/uL (1.8-7.7) 08/24/23 02:44 Lymph # (Auto) 3.0 10^3/uL (0.8-4.8) 08/24/23 02:44 [place] # (Auto) 0.9 10^3/uL (0.2-0.9) 08/24/23 02:44 Eos # (Auto) 0.1 10^3/uL (0.0-0.8) 08/24/23 02:44 Baso # (Auto) 0.0 10^3/uL (0.0-0.1) 08/24/23 02:44 Nucleated RBC % (auto) 0 % 08/24/23 02:44 Nucleated RBCs # 0.0 /100WBC 08/24/23 02:44 Sodium 145 mmol/L (136-145) 08/24/23 02:44 Potassium 3.0 mmol/L (3.5-5.1) L 08/24/23 02:44 Chloride 100 mmol/L (98-107) 08/24/23 02:44 Carbon Dioxide 32 mmol/L (22-29) H 08/24/23 02:44 Anion Gap 16.0 (5-19) 08/24/23 02:44 BUN 9 mg/dL (6-20) 08/24/23 02:44 Creatinine 1.3 mg/dL (0.7-1.2) H 08/24/23 02:44 GFR Calculation 60.0 mL/min (90-130) L 08/24/23 02:44 Glucose 120 mg/dL (65-115) H 08/24/23 02:44 POC Glucose 95 mg/dL (70-110) 08/24/23 02:42 Calculated Osmolality 300 mOsm/kg (285-295) H 08/24/23 02:44 Calcium 10.1 mg/dL (8.5-10.5) 08/24/23 02:44 SARS-CoV-2 Ag (Rapid) negative (Negative) 08/24/23 02:44 XR interpretation done by ED provider, pending radiology final review ED provider radiology interpretation(s): cxr: no acute abnormality Discharge Plan Discharge Patient Disposition: Home Clinical Impression: Hypoglycemia Condition: Stable Prescriptions: No Action gabapentin [Neurontin] 300 mg capsule 300 mg PO BID atorvastatin 40 mg tablet 40 mg PO BEDTIME metformin 500 mg tablet extended release 24hr 1,000 mg PO DAILY Mounjaro 2.5 mg/0.5 mL pen injector 2.5 mg SUBCUT Q7D 30 Days Qty: 2.5 0RF Rx Instructions: 2.5mg weekly for 1month; 5mg weekly for 1month; 7.5mg weekly and continue aripiprazole 30 mg tablet 15 mg PO BID 30 Days Qty: 30 3RF divalproex 500 mg tablet extended release 24 hr 2,000 mg PO BEDTIME 30 Days Qty: 120 4RF venlafaxine 75 mg capsule,extended release 24hr 225 mg PO DAILY 30 Days Qty: 90 3RF metoprolol succinate 25 mg tablet extended release 24 hr 25 mg PO DAILY Qty: 90 0RF insulin lispro [Humalog KwikPen Insulin] 100 unit/mL insulin pen See Rx Instructions .ROUTE .COMPLEX Qty: 15 0RF Dose Instruction: INJECT FOUR UNITS SUBCUTANEOUSLY EVERY 6 HOURS NEEDED FOR BG ABOVE 400 Rx Instructions: INJECT FOUR UNITS SUBCUTANEOUSLY EVERY 6 HOURS NEEDED FOR BG ABOVE 400 Mounjaro 7.5 mg/0.5 mL pen injector 7.5 mg SUBCUT Q7D 30 Days Qty: 2.5 0RF Lantus Solostar U-100 Insulin 100 unit/mL (3 mL) insulin pen 50 unit SUBCUT BEDTIME ferrous sulfate [iron] 325 mg (65 mg iron) Tablet 325 mg PO DAILY bismuth subsalicylate [Stomach Relief] 262 mg/15 mL suspension See Rx Instructions .ROUTE .COMPLEX Rx Instructions: 1 mL PO NEEDED irbesartan 150 mg tablet 150 mg PO DAILY Discharge Orders: Discharge ED (Routine); Ordered 08/24/23 Ordered By: Wale Vyas Referrals: Blair Cheatham MD [Primary Care Provider] - 1-3 days Discharge Diet: Advance as tolerated Discharge Activity: Resume usual activity Patient Instructions: Hypoglycemia in a Person with Diabetes (ED) Coding Level of Care Code ED [employer] for Dasha Nix
--- NOTE | 2023-08-24 02:41 | XRR_ITS ---
PROCEDURE INFORMATION: Exam: XR Chest Exam date and time: 08/24/2023 2:53 AM Age: 43 years old Clinical indication: Shortness of breath; Patient HX: PT says he had some SOB when he was in the ambulance TECHNIQUE: Imaging protocol: Radiologic exam of the chest. Views: 1 view. COMPARISON: CR XR chest 1V portable [id number] 06/04/2023 9:49 PM FINDINGS: Lungs: Minimal areas of right mid to lower lung atelectasis or airspace disease. No consolidation. Pleural spaces: Unremarkable. No pleural effusion. No pneumothorax. Heart/Mediastinum: Unremarkable. No cardiomegaly. Bones/joints: Unremarkable. XR/XR chest 1V portable [id number] IMPRESSION: 1. Minimal areas of right mid to lower lung atelectasis or airspace disease. 2. No large consolidation.
[2023-08-24 02:49] LABS: Basophils % 0.4 %; Eosinophils # 0.1 10^3/uL (0.0-0.8); Eosinophils % 0.8 %; Hematocrit 51.7 % (37-53); Lymphocytes % 31.9 %; Mean Corpuscular HGB Conc 33.1 g/dL (30-55); Mean Corpuscular Hemoglobin 29.5 pg (27-33); Mean Corpuscular Volume 89.3 fl (82-101); Mean Platelet Volume 10.7 fL (7.4-10.4); Monocytes # 0.9 10^3/uL (0.2-0.9); Monocytes % 8.9 %; Neutrophils # 5.41 10^3/uL (1.8-7.7); Neutrophils % 56.8 %; Nucleated Red Blood Cells % 0 %; Platelet Count 219 10^3/cmm (157-399); Red Blood Count 5.79 10^6/uL (3.85-5.65); Red Cell Distribution Width 14.1 % (12.1-15.1); White Blood Count 9.53 10^3/uL (3.29-11.43)
[2023-08-24 02:49] LABS: Glucose Point of Care 95 mg/dL (70-110)
[2023-08-24 02:50] VITALS: BP 115/59; O2SAT 89
[2023-08-24 03:05] LABS: SARS Covid-2 Antigen negative (Negative)
[2023-08-24 03:09] LABS: Blood Urea Nitrogen 9 mg/dL (6-20); Calcium 10.1 mg/dL (8.5-10.5); Carbon Dioxide 32 mmol/L (22-29); Chloride 100 mmol/L (98-107); Glucose 120 mg/dL (65-115); Osmolality Calculated 300 mOsm/kg (285-295); Sodium 145 mmol/L (136-145)
[2023-08-24 03:30] LABS: Glucose Point of Care 99 mg/dL (70-110)
[2023-08-24 03:36] VITALS: O2SAT 92
== END 2023-08-24 03:35 | disposition home or self-care (01) ==
PROVIDERS: Emergency Provider Emergency Medicine; PCP Family Medicine
DX: E11.649 Type 2 diabetes mellitus with hypoglycemia without coma (principal); E78.5 Hyperlipidemia, unspecified; I10 Essential (primary) hypertension; E11.42 Type 2 diabetes mellitus with diabetic polyneuropathy; F17.290 Nicotine dependence, other tobacco product, uncomplicated; Z11.52 Encounter for screening for COVID-19; Z79.4 Long term (current) use of insulin; Z79.84 Long term (current) use of oral hypoglycemic drugs
CPT/HCPCS: 36416; 71045; 80048; 82962; 85025; 87426; 99284

== ENCOUNTER 2023-08-24 22:54 | Emergency (ER) | payer MEDICARE, MEDICAID, SELFPAY ==
[2023-08-24 23:00] VITALS: BP 132/76; RESP 20; TEMP 36.6; O2SAT 93
--- NOTE | 2023-08-24 23:02 | ECG_ITS ---
[facility] Test Date: 2023-08-24 Pat Name: Zaire Nassar Department: Room: Gender: Male [employer] Lead: : 1980 Requested By: Ho Leo Order Number: [id number] Russell MD: Migdalia Chavez M.D. Measurements Intervals [place] Rate: 120 P: 52 VA: 191 QRS: 45 QRSD: 116 T: 46 QT: 312 QTc: 441 Interpretive Statements SINUS TACHYCARDIA ANTEROSEPTAL MYOCARDIAL INFARCTION , OF INDETERMINATE AGE [40+ ms Q WAVE IN V1-V4] Compared to ECG 07/18/2023 03:09:06 Left-axis deviation no longer present Myocardial infarct finding still present Electronically Signed On 08-26-2023 10:59:16 CDT by Migdalia Chavez M.D. [id number]
--- NOTE | 2023-08-24 23:04 | CTR_ITS ---
PROCEDURE INFORMATION: Exam: CT Head Without Contrast Exam date and time: 08/24/2023 11:18 PM Age: 43 years old Clinical indication: Injury or trauma; Syncope and collapse; Patient HX: Syncope with fall. Abrasion to forehead. ; Additional info: Fall head injury TECHNIQUE: Imaging protocol: Computed tomography of the head without contrast. Radiation optimization: All CT scans at this facility use at least one of these dose optimization techniques: automated exposure control; mA and/or kV adjustment per patient size (includes targeted exams where dose is matched to clinical indication); or iterative reconstruction. REPORTING DATA: Count of CT and Cardiac NM exams in prior 12 months: This patient has received 10 known CTs and 0 known cardiac nuclear medicine studies in the 12 months prior to the current study. COMPARISON: CT head wo con* [id number] 07/11/2023 3:45 AM RADIATION DOSE METRICS: Total DLP (mGy-cm): 1162.19 FINDINGS: Brain: No focal hemorrhage or midline shift is identified. Cerebral ventricles: No ventriculomegaly or evidence of acute hydrocephalus. Paranasal sinuses: The partially assessed sinuses are grossly clear. Mastoid air cells: Visualized mastoid air cells are well aerated. Bones/joints: No displaced skull fracture is noted. Soft tissues: Unremarkable. CT/CT head wo con* [id number] IMPRESSION: No acute intracranial abnormality.
--- NOTE | 2023-08-24 23:07 | W.ED.SYNCOPE ---
HPI - Syncope General: Chief Complaint: Syncope Stated Complaint: FALL Time Seen by Provider: 08/24/23 23:01 History of Present Illness: 43-year-old male patient comes in today for complaints of syncopal episode. Patient states that he was outside on the porch and when he went to stand up to walk he passed out. Patient had struck his head on the porch and has an abrasion to his central forehead. Patient had a similar episode last evening and was evaluated at that time for head injury but no acute abnormalities were noted. Patient did have some elevation in his blood glucose. Associated symptoms: Deny chest pain, headache(s) or nausea Review of Systems General: Reports: 10 or more systems reviewed and unremarkable except in HPI and below ENMT: Denies: throat pain Card: Denies: chest pain Resp: Denies: dyspnea GI: Denies: nausea, vomiting, diarrhea or constipation : Denies: difficulty urinating Musc: Denies: neck pain or back pain Skin/Breast: Reports: new lesions Neuro: Denies: headache(s) Psych: Denies: anxiety or depression [facility] ED PFSH: Medical History Bipolar 1 disorder Coronary-myocardial bridge Fracture of triquetrum Hyperlipidemia Hypertension Other reactions to severe stress Peripheral neuropathy Psychiatric care Pulmonary embolism Type 2 diabetes mellitus Surgical History History of appendectomy Social History Smoking and tobacco/nicotine status: current every day tobacco/nicotine user e-cigarettes Alcohol intake: current Alcohol intake frequency: few times a month Substance/Drug Use: never Marital status: Single Physical Exam Const: COMMON NORMALS: alert HENMT: COMMON NORMALS: normocephalic HEAD & SCALP: normocephalic FACE & SINUS: other (Central forehead abrasion) Neck/C-Spine: COMMON NORMALS: full ROM CERVICAL SPINE: No Cervical spine tenderness Chest: COMMONS NORMALS: normal inspection of the chest and normal palpation of entire chest wall Resp: COMMON NORMALS: normal respiratory effort and clear to auscultation bilaterally AUSCULTATION: clear to auscultation bilaterally Cardio: COMMON NORMALS: regular rate and regular rhythm RATE: regular rate RHYTHM: regular rhythm GI: COMMON NORMALS: Soft to palpation and non-tender PALPATION: Yes Soft to palpation : COMMON NORMALS: Yes no CVA tenderness BLADDER/KIDNEY EXAM: Yes no CVA tenderness Back/Pelvis: COMMON NORMALS: no CVA tenderness Extremity: COMMON NORMALS: full ROM Neuro: SENSORIUM/ORIENTATION: Yes alert Skin: TRAUMA: abrasion (Forehead) Course Vital Signs: Vital signs: Vital Signs Temperature 98 F 08/24/23 23:00 Pulse Rate 86 08/25/23 00:38 Respiratory Rate 20 H 08/24/23 23:00 Blood Pressure 136/80 08/25/23 00:38 Pulse Oximetry 96 08/25/23 00:38 Oxygen Delivery Me thod Room Air 08/24/23 23:33 MDM - Syncope Medical Decision Making Patient comes in today with a syncopal episode. Patient reports that he was getting up from a chair and passed out hitting his head against the ground. Patient has similar event yesterday. On exam patient is alert and oriented. Patient appears nontoxic. Patient reports no significant pain or discomfort. Differential diagnosis includes vasovagal syncope, ACS, stroke syndrome, intracranial bleeding, pulmonary embolism, ACS. D-dimer is negative. Troponin showed no elevation. CBC and CMP were unremarkable except for some elevated glucose of 389. CT of the head was normal. At this time there is no sign of an acute coronary event or intracranial bleeding. Since patient's had 2 episodes of syncope I recommended follow-up further with cardiology for further evaluation and possible stress testing. I suspect patient is having a vasovagal episode. It may be related to some medications or cardiac condition. Patient reports understanding of care plan and need for follow-up or return to the ER. Lab Data 08/24/23 22:30 08/24/23 22:[address] 08/24/23 23:04 IMPRESSION: No acute intracranial abnormality. Laboratory Results WBC 6.98 10^3/uL (3.29-11.43) 08/24/23 22:30 RBC 5.67 10^6/uL (3.85-5.65) H 08/24/23 22:30 Hgb 16.50 g/dL (11.27-16.99) 08/24/23 22:30 Hct 50.7 % (37-53) 08/24/23 22:30 MCV 89.4 fl (82-101) 08/24/23 22: MCH 29.1 pg (27-33) 08/24/23: MCHC 32.5 g/dL (30-55) 08/24/23 22: RDW 14.3 % (12.1-15.1) 08/24/23 22: Plt Count 199 10^3/cmm (157-399) 08/24/23 22: MPV 10.5 fL (7.4-10.4) H 08/24/23 22:30 Neut % (Auto) 53.8 % 08/24/23 22: Lymph % (Auto) 37.5 % 08/24/23: [place] % (Auto) 6.9 % 08/24/23: Eos % (Auto) 0.7 % 08/24/23: Baso % (Auto) 0.4 % 08/24/23: Neut # (Auto) 3.75 10^3/uL (1.8-7.7) 08/24/23 22: Lymph # (Auto) 2.6 10^3/uL (0.8-4.8) 08/24/23 22: [place] # (Auto) 0.5 10^3/uL (0.2-0.9) 08/24/23 22: Eos # (Auto) 0.1 10^3/uL (0.0-0.8) 08/24/23: Baso # (Auto) 0.0 10^3/uL (0.0-0.1) 08/24/23: Nucleated RBC % (auto) 0 % 08/24/23: Nucleated RBCs # 0.0 /100WBC 08/24/23: D-Dimer 0.28 ug/mLFEU (0-0.59) 08/24/23 22:30 Sodium 139 mmol/L (136-145) 08/24/23 22:30 Potassium 3.6 mmol/L (3.5-5.1) 08/24/23 22:30 Chloride 97 mmol/L (98-107) L 08/24/23 22: Carbon Dioxide 31 mmol/L (22-29) H 08/24/23 22:30 Anion Gap 14.6 (5-19) 08/24/23 22:30 BUN 13 mg/dL (6-20) 08/24/23 22:30 Creatinine 1.0 mg/dL (0.7-1.2) 08/24/23 22:30 GFR Calculation 81.2 mL/min (90-130) L 08/24/23 22:30 Glucose 389 mg/dL (65-115) H 08/24/23 22:30 Calculated Osmolality 304 mOsm/kg (285-295) H 08/24/23 22:30 Calcium 9.6 mg/dL (8.5-10.5) 08/24/23 22:30 Total Bilirubin 0.2 mg/dL (0.15-1.2) 08/24/23 22:30 AST 18 U/L (0-40) 08/24/23 22:30 ALT 21 U/L (0-41) 08/24/23 22:30 Alkaline Phosphatase 90 U/L (40-130) 08/24/23 22:30 Troponin T Baseline 10 ng/L (0-15) 08/24/23 22:30 Total Protein 6.4 g/dL (6.6-8.7) L 08/24/23 22:30 Albumin 4.1 g/dL (3.5-5.2) 08/24/23 22:30 Globulin 2.3 g/dL (1.3-4.6) 08/24/23 22:30 All radiology interpretation(s) finalized by discharge Discharge Plan Discharge Patient Disposition: Home Clinical Impression: Vasovagal syncope Condition: Stable Prescriptions: No Action gabapentin [Neurontin] 300 mg capsule 300 mg PO BID atorvastatin 40 mg tablet 40 mg PO BEDTIME metformin 500 mg tablet extended release 24hr 1,000 mg PO DAILY Mounjaro 2.5 mg/0.5 mL pen injector 2.5 mg SUBCUT Q7D 30 Days Qty: 2.5 0RF Rx Instructions: 2.5mg weekly for 1month; 5mg weekly for 1month; 7.5mg weekly and continue aripiprazole 30 mg tablet 15 mg PO BID 30 Days Qty: 30 3RF divalproex 500 mg tablet extended release 24 hr 2,000 mg PO BEDTIME 30 Days Qty: 120 4RF venlafaxine 75 mg capsule,extended release 24hr 225 mg PO DAILY 30 Days Qty: 90 3RF metoprolol succinate 25 mg tablet extended release 24 hr 25 mg PO DAILY Qty: 90 0RF insulin lispro [Humalog KwikPen Insulin] 100 unit/mL insulin pen See Rx Instructions .ROUTE .COMPLEX Qty: 15 0RF Dose Instruction: INJECT FOUR UNITS SUBCUTANEOUSLY EVERY 6 HOURS NEEDED FOR BG ABOVE 400 Rx Instructions: INJECT FOUR UNITS SUBCUTANEOUSLY EVERY 6 HOURS NEEDED FOR BG ABOVE 400 Mounjaro 7.5 mg/0.5 mL pen injector 7.5 mg SUBCUT Q7D 30 Days Qty: 2.5 0RF Lantus Solostar U-100 Insulin 100 unit/mL (3 mL) insulin pen 50 unit SUBCUT BEDTIME ferrous sulfate [iron] 325 mg (65 mg iron) Tablet 325 mg PO DAILY bismuth subsalicylate [Stomach Relief] 262 mg/15 mL suspension See Rx Instructions .ROUTE .COMPLEX Rx Instructions: 1 mL PO NEEDED irbesartan 150 mg tablet 150 mg PO DAILY Discharge Orders: Discharge ED (Routine); Ordered 08/25/23 Ordered By: Ho Wagner Referrals: Blair Cheatham MD [Primary Care Provider] - Discharge Diet: Usual diet Discharge Activity: Increase activity as tolerated Patient Instructions: Syncope (ED) Activity Restrictions/Additional Instructions: Drink plenty of water and fluids. Avoid heavy lifting or straining. Continue with routine medications as directed. Change positions slowly. Follow-up with primary care for further instructions. Case management will contact you or your caregiver to assist with follow-up with cardiology. Return to ED for new concerns or worsening symptoms. Coding Level of Care Code ED [employer]st for Dasha Nix
[2023-08-24 23:12] LABS: Basophils % 0.4 %; Eosinophils # 0.1 10^3/uL (0.0-0.8); Eosinophils % 0.7 %; Hematocrit 50.7 % (37-53); Lymphocytes # 2.6 10^3/uL (0.8-4.8); Lymphocytes % 37.5 %; Mean Corpuscular HGB Conc 32.5 g/dL (30-55); Mean Corpuscular Hemoglobin 29.1 pg (27-33); Mean Corpuscular Volume 89.4 fl (82-101); Mean Platelet Volume 10.5 fL (7.4-10.4); Monocytes # 0.5 10^3/uL (0.2-0.9); Monocytes % 6.9 %; Neutrophils # 3.75 10^3/uL (1.8-7.7); Neutrophils % 53.8 %; Nucleated Red Blood Cells % 0 %; Platelet Count 199 10^3/cmm (157-399); Red Blood Count 5.67 10^6/uL (3.85-5.65); Red Cell Distribution Width 14.3 % (12.1-15.1); White Blood Count 6.98 10^3/uL (3.29-11.43)
[2023-08-24 23:29] LABS: Alanine Aminotransferase 21 U/L (0-41); Albumin Level 4.1 g/dL (3.5-5.2); Alkaline Phosphatase 90 U/L (40-130); Anion Gap 14.6 (5-19); Aspartate Amino Transferase 18 U/L (0-40); Blood Urea Nitrogen 13 mg/dL (6-20); Calcium 9.6 mg/dL (8.5-10.5); Carbon Dioxide 31 mmol/L (22-29); Chloride 97 mmol/L (98-107); Globulin 2.3 g/dL (1.3-4.6); Glomerular Filtration Rate 81.2 mL/min (90-130); Glucose 389 mg/dL (65-115); Osmolality Calculated 304 mOsm/kg (285-295); Potassium 3.6 mmol/L (3.5-5.1); Sodium 139 mmol/L (136-145); Total Bilirubin 0.2 mg/dL (0.15-1.2); Total Protein 6.4 g/dL (6.6-8.7)
[2023-08-24 23:31] VITALS: BP 156/100; BP 156/94; BP 159/80
[2023-08-24 23:33] VITALS: BP 131/72; PULSE 110; O2SAT 91
[2023-08-24] MEDS: sodium chloride 0.9% 1,000 ML 999 ML IV (23:41)
[2023-08-24 23:54] LABS: D Dimer 0.28 ug/mLFEU (0-0.59)
[2023-08-24 23:55] LABS: Troponin(5th) Baseline 10 ng/L (0-15)
[2023-08-25 00:38] VITALS: BP 136/80; PULSE 86; O2SAT 96
--- NOTE | 2023-08-25 00:38 | PC.NURSE ---
fsbg 2 fsbg done. one initial and one repeat.
[2023-08-25 01:54] LABS: Glucose Point of Care 370 mg/dL (70-110)
[2023-08-25 01:54] LABS: Glucose Point of Care 352 mg/dL (70-110)
--- NOTE | 2023-08-27 12:33 | DCPLANNER ---
Referral was sent to cardiology on 08/27 at 12:33
== END 2023-08-25 00:41 | disposition home or self-care (01) ==
PROVIDERS: Emergency Provider Nurse Practitioner Family; PCP Family Medicine
DX: R55 Syncope and collapse (principal); Z79.4 Long term (current) use of insulin; Z79.84 Long term (current) use of oral hypoglycemic drugs; E78.5 Hyperlipidemia, unspecified; I10 Essential (primary) hypertension; E11.42 Type 2 diabetes mellitus with diabetic polyneuropathy; F17.290 Nicotine dependence, other tobacco product, uncomplicated
CPT/HCPCS: 36416; 70450; 80053; 82962; 84484; 85025; 85378; 93005; 99285; J7030

== ENCOUNTER 2023-09-29 20:30 | Emergency (ER) | payer MEDICARE, MEDICAID, SELFPAY ==
[2023-09-29 20:38] VITALS: BP 110/70; PULSE 127; RESP 13; TEMP 36.6; O2SAT 96; BMI 39.5
--- NOTE | 2023-09-29 20:46 | W.ED.RECABL ---
HPI - Recheck/Abnormal Lab/Rx General: Chief Complaint: Recheck/Abnormal Lab/Rx Stated Complaint: HYPOGLYCEMIC Time Seen by Provider: 09/29/23 20:38 Source: patient and EMS Mode of arrival: EMS Limitations: no limitations History of Present Illness: 43-year-old male who is very well-known to the ER he has history of diabetes he states he is taken his insulin today states he has not felt very well so he is only eaten a bowl of cereal today for lunch denies found to be hypoglycemic. He denies any vomiting or diarrhea he has not passed out. Review of Systems Const: Denies: fever(s), chills, body aches or change in appetite Eyes: Denies: blurry vision or eye discomfort ENMT: Denies: throat pain or dental pain Card: Denies: chest pain Resp: Denies: dyspnea GI: Denies: abdominal pain, nausea, vomiting or diarrhea : Denies: dysuria Musc: Denies: neck pain or back pain Skin/Breast: Denies: rash Neuro: Denies: headache(s) Psych: Denies: depression Rayo/Lymph: Denies: easy bruising All/Imm: Denies: urticaria PFSH ED PFSH: Medical History Bipolar 1 disorder Coronary-myocardial bridge Fracture of triquetrum Hyperlipidemia Hypertension Other reactions to severe stress Peripheral neuropathy Psychiatric care Pulmonary embolism Type 2 diabetes mellitus Surgical History History of appendectomy Social History Smoking and tobacco/nicotine status: current every day tobacco/nicotine user e-cigarettes Alcohol intake: current Alcohol intake frequency: few times a month Substance/Drug Use: never Marital status: Single Physical Exam Const: COMMON NORMALS: no acute distress, patient oriented x3 and healthy appearing HENMT: COMMON NORMALS: normocephalic and atraumatic HEAD & SCALP: normocephalic and atraumatic Eye: COMMON NORMALS: Equal, round and reactive pupils present and EOMs intact bilaterally PUPIL: Yes Equal, round and reactive pupils present Neck/C-Spine: COMMON NORMALS: full ROM and supple Chest: COMMONS NORMALS: normal inspection of the chest and normal palpation of entire chest wall Resp: COMMON NORMALS: normal respiratory effort, No retractions, No use of accessory muscles and clear to auscultation bilaterally AUSCULTATION: clear to auscultation bilaterally Cardio: COMMON NORMALS: regular rate, regular rhythm and No murmurs present (Cardio) RATE: regular rate RHYTHM: regular rhythm GI: COMMON NORMALS: Normal to inspection, nondistended, normoactive bowel sounds present, Soft to palpation, non-tender and no masses PALPATION: Yes Soft to palpation Extremity: COMMON NORMALS: normal to inspection and full ROM Neuro: COMMON NORMALS: patient oriented x3, moves all extremities and no focal motor deficits Psych: COMMON NORMALS: mental status grossly normal, Normal thought process present and cooperative THOUGHT PROCESS: Normal thought process present Skin: COMMON NORMALS: no rashes or lesions noted and no wounds GENERAL SKIN EXAM: no rashes or lesions noted Course Vital Signs: Vital signs: Vital Signs Temperature 97.8 F 09/29/23 20:38 Pulse Rate 115 H 09/30/23 00:28 Respiratory Rate 18 09/30/23 00:28 Blood Pressure 93/68 09/30/23 00:28 Pulse Oximetry 90 09/30/23 00:28 MDM - Recheck/Abnormal Lab/Rx Medical Decision Making Patient presents with hyperglycemia his blood sugar here is stabilized he feels improved. He is stable for discharge he is to monitor his glucose return if worsening he understands agrees to plan Medical Records I reviewed the patient's medical records. Lab Data I reviewed the patient's lab results. 09/29/23 20:51 09/29/23 20:51 Laboratory Results WBC 10.46 10^3/uL (3.29-11.43) 09/29/23 20:51 RBC 5.92 10^6/uL (3.85-5.65) H 09/29/23 20:51 Hgb 17.30 g/dL (11.27-16.99) H 09/29/23 20:51 Hct 53.2 % (37-53) H 09/29/23 20:51 MCV 89.9 fl (82-101) 09/29/23 20:51 MCH 29.2 pg (27-33) 09/29/23 20:51 MCHC 32.5 g/dL (30-55) 09/29/23 20:51 RDW 13.7 % (12.1-15.1) 09/29/23 20:51 Plt Count 203 10^3/cmm (157-399) 09/29/23 20:51 MPV 10.4 fL (7.4-10.4) 09/29/23 20:51 Neut % (Auto) 73.8 % 09/29/23 20:51 Lymph % (Auto) 19.9 % 09/29/23 20:51 [place] % (Auto) 5.3 % 09/29/23 20:51 Eos % (Auto) 0.4 % 09/29/23 20:51 Baso % (Auto) 0.2 % 09/29/23 20:51 Neut # (Auto) 7.73 10^3/uL (1.8-7.7) H 09/29/23 20:51 Lymph # (Auto) 2.1 10^3/uL (0.8-4.8) 09/29/23 20:51 [place] # (Auto) 0.6 10^3/uL (0.2-0.9) 09/29/23 20:51 Eos # (Auto) 0.0 10^3/uL (0.0-0.8) 09/29/23 20:51 Baso # (Auto) 0.0 10^3/uL (0.0-0.1) 09/29/23 20:51 Nucleated RBC % (auto) 0 % 09/29/23 20:51 Nucleated RBCs # 0.0 /100WBC 09/29/23 20:51 Sodium 142 mmol/L (136-145) 09/29/23 20:51 Potassium 3.5 mmol/L (3.5-5.1) 09/29/23 20:51 Chloride 104 mmol/L (98-107) 09/29/23 20:51 Carbon Dioxide 25 mmol/L (22-29) 09/29/23 20:51 Anion Gap 16.5 (5-19) 09/29/23 20:51 BUN 9 mg/dL (6-20) 09/29/23 20:51 Creatinine 0.8 mg/dL (0.7-1.2) 09/29/23 20:51 GFR Calculation 105.0 mL/min (90-130) 09/29/23 20:51 Glucose 101 mg/dL (65-115) 09/29/23 20:51 POC Glucose 95 mg/dL (70-110) 09/30/23 00:17 Calculated Osmolality 293 mOsm/kg (285-295) 09/29/23 20:51 Calcium 9.9 mg/dL (8.5-10.5) 09/29/23 20:51 Total Bilirubin 0.3 mg/dL (0.15-1.2) 09/29/23 20:51 AST 15 U/L (0-40) 09/29/23 20:51 ALT 20 U/L (0-41) 09/29/23 20:51 Alkaline Phosphatase 84 U/L (40-130) 09/29/23 20:51 Total Protein 6.4 g/dL (6.6-8.7) L 09/29/23 20:51 Albumin 4.0 g/dL (3.5-5.2) 09/29/23 20:51 Globulin 2.4 g/dL (1.3-4.6) 09/29/23 20:51 SARS-CoV-2 Ag (Rapid) negative (Negative) 09/29/23 22:00 No radiology studies performed this visit Discharge Plan Discharge Patient Disposition: Home Clinical Impression: Hypoglycemia Condition: Stable Prescriptions: No Action gabapentin [Neurontin] 300 mg capsule 300 mg PO BID atorvastatin 40 mg tablet 40 mg PO BEDTIME metformin 500 mg tablet extended release 24hr 1,000 mg PO DAILY Mounjaro 2.5 mg/0.5 mL pen injector 2.5 mg SUBCUT Q7D 30 Days Qty: 2.5 0RF Rx Instructions: 2.5mg weekly for 1month; 5mg weekly for 1month; 7.5mg weekly and continue aripiprazole 30 mg tablet 15 mg PO BID 30 Days Qty: 30 3RF divalproex 500 mg tablet extended release 24 hr 2,000 mg PO BEDTIME 30 Days Qty: 120 4RF venlafaxine 75 mg capsule,extended release 24hr 225 mg PO DAILY 30 Days Qty: 90 3RF olanzapine 5 mg tablet,disintegrating 5 mg PO DAILY Qty: 30 0RF Rx Instructions: Take one tablet daily at 5 PM metoprolol succinate 25 mg tablet extended release 24 hr 25 mg PO DAILY Qty: 90 0RF cephalexin 500 mg capsule 500 mg PO BID Qty: 14 0RF insulin lispro [Humalog KwikPen Insulin] 100 unit/mL insulin pen See Rx Instructions .ROUTE .COMPLEX Qty: 15 0RF Dose Instruction: INJECT FOUR UNITS SUBCUTANEOUSLY EVERY 6 HOURS NEEDED FOR BG ABOVE 400 Rx Instructions: INJECT FOUR UNITS SUBCUTANEOUSLY EVERY 6 HOURS NEEDED FOR BG ABOVE 400 Mounjaro 7.5 mg/0.5 mL pen injector 7.5 mg SUBCUT Q7D 30 Days Qty: 2.5 0RF diazepam 5 mg tablet 5 mg PO .COMPLEX Qty: 60 0RF Rx Instructions: Take one tablet by mouth every morning, and one tablet daily at 1 PM, if needed Lantus Solostar U-100 Insulin 100 unit/mL (3 mL) insulin pen 50 unit SUBCUT BEDTIME ferrous sulfate [iron] 325 mg (65 mg iron) Tablet 325 mg PO DAILY bismuth subsalicylate [Stomach Relief] 262 mg/15 mL suspension See Rx Instructions .ROUTE .COMPLEX Rx Instructions: 1 mL PO NEEDED irbesartan 150 mg tablet 150 mg PO DAILY Discharge Orders: Discharge ED (Routine); Ordered 09/30/23 Ordered By: Wale Vyas Referrals: Blair Cheatham MD [Primary Care Provider] - 1-3 days Discharge Diet: Advance as tolerated Discharge Activity: Resume usual activity Patient Instructions: Hypoglycemia in a Person with Diabetes (ED) Coding Level of Care Code ED Consultants Intern for Dasha Nix
[2023-09-29 20:56] LABS: Basophils % 0.2 %; Eosinophils % 0.4 %; Hematocrit 53.2 % (37-53); Lymphocytes # 2.1 10^3/uL (0.8-4.8); Lymphocytes % 19.9 %; Mean Corpuscular HGB Conc 32.5 g/dL (30-55); Mean Corpuscular Hemoglobin 29.2 pg (27-33); Mean Corpuscular Volume 89.9 fl (82-101); Mean Platelet Volume 10.4 fL (7.4-10.4); Monocytes # 0.6 10^3/uL (0.2-0.9); Monocytes % 5.3 %; Neutrophils # 7.73 10^3/uL (1.8-7.7); Neutrophils % 73.8 %; Nucleated Red Blood Cells % 0 %; Platelet Count 203 10^3/cmm (157-399); Red Blood Count 5.92 10^6/uL (3.85-5.65); Red Cell Distribution Width 13.7 % (12.1-15.1); White Blood Count 10.46 10^3/uL (3.29-11.43)
[2023-09-29] MEDS: dextrose 50% syringe 50 mL IVP ×2 (21:09→22:12)
[2023-09-29 21:21] LABS: Glucose Point of Care 58 mg/dL (70-110)
[2023-09-29 21:21] LABS: Alanine Aminotransferase 20 U/L (0-41); Alkaline Phosphatase 84 U/L (40-130); Anion Gap 16.5 (5-19); Aspartate Amino Transferase 15 U/L (0-40); Blood Urea Nitrogen 9 mg/dL (6-20); Calcium 9.9 mg/dL (8.5-10.5); Carbon Dioxide 25 mmol/L (22-29); Chloride 104 mmol/L (98-107); Globulin 2.4 g/dL (1.3-4.6); Glucose 101 mg/dL (65-115); Osmolality Calculated 293 mOsm/kg (285-295); Potassium 3.5 mmol/L (3.5-5.1); Sodium 142 mmol/L (136-145); Total Bilirubin 0.3 mg/dL (0.15-1.2); Total Protein 6.4 g/dL (6.6-8.7)
[2023-09-29 21:47] LABS: Glucose Point of Care 85 mg/dL (70-110)
[2023-09-29 22:00] LABS: Glucose Point of Care 68 mg/dL (70-110)
[2023-09-29 22:37] LABS: Glucose Point of Care 223 mg/dL (70-110)
[2023-09-29 22:43] LABS: SARS Covid-2 Antigen negative (Negative)
[2023-09-29 23:08] LABS: Glucose Point of Care 143 mg/dL (70-110)
[2023-09-29 23:40] LABS: Glucose Point of Care 98 mg/dL (70-110)
[2023-09-30 00:20] LABS: Glucose Point of Care 95 mg/dL (70-110)
[2023-09-30 00:28] VITALS: BP 93/68; PULSE 115; RESP 18; O2SAT 90
== END 2023-09-30 00:26 | disposition home or self-care (01) ==
PROVIDERS: Emergency Provider Emergency Medicine; PCP Family Medicine
DX: E11.649 Type 2 diabetes mellitus with hypoglycemia without coma (principal); Z79.84 Long term (current) use of oral hypoglycemic drugs; Z79.4 Long term (current) use of insulin; Z11.52 Encounter for screening for COVID-19; F17.290 Nicotine dependence, other tobacco product, uncomplicated; E78.5 Hyperlipidemia, unspecified; I10 Essential (primary) hypertension; E11.42 Type 2 diabetes mellitus with diabetic polyneuropathy; E11.65 Type 2 diabetes mellitus with hyperglycemia
CPT/HCPCS: 36416; 80048; 80053; 82962; 85025; 87426; 96374; 96376; 99284; J1815; J7030

== ENCOUNTER 2023-09-30 23:17 | Emergency (ER) | payer MEDICARE, MEDICAID, SELFPAY ==
--- NOTE | 2023-09-30 23:24 | ED_ITS ---
HPI - General Adult General: Chief complaint: General Medical Stated complaint: HIGH BLOOD SUGAR Time Seen by Provider: 09/30/23 23:19 Source: patient and EMS Mode of arrival: EMS Limitations: no limitations History of Present Illness: 43-year-old male is very well-known to the ER he lives in a retirement he was seen here yesterday for hypoglycemia states that his staff but showed up late she never had his insulin today and called EMS because his blood glucose was running high on EMS his blood sugar was 305 he has no medical complaints at all here. Associated symptoms: Deny chest pain, dyspnea, headache(s), nausea, rash or vomiting Review of Systems Const: Denies: fever(s), chills, body aches or change in appetite ENMT: Denies: throat pain or dental pain Card: Denies: chest pain Resp: Denies: dyspnea GI: Denies: abdominal pain, nausea, vomiting or diarrhea Musc: Denies: neck pain or back pain Skin/Breast: Denies: rash Neuro: Denies: headache(s) PFSH ED PFSH: Medical History Bipolar 1 disorder Coronary-myocardial bridge Fracture of triquetrum Hyperlipidemia Hypertension Other reactions to severe stress Peripheral neuropathy Psychiatric care Pulmonary embolism Type 2 diabetes mellitus Surgical History History of appendectomy Social History Smoking and tobacco/nicotine status: current every day tobacco/nicotine user e- cigarettes Alcohol intake: current Alcohol intake frequency: few times a month Substance/Drug Use: never Marital status: Single Physical Exam Const: COMMON NORMALS: no acute distress, patient oriented x3 and healthy appearing HENMT: COMMON NORMALS: normocephalic and atraumatic HEAD & SCALP: normocephalic and atraumatic Neck/C-Spine: COMMON NORMALS: full ROM and supple Chest: COMMONS NORMALS: normal inspection of the chest Resp: COMMON NORMALS: normal respiratory effort Cardio: COMMON NORMALS: regular rate, regular rhythm and No murmurs present (Cardio) RATE: regular rate RHYTHM: regular rhythm Extremity: COMMON NORMALS: normal to inspection and full ROM Neuro: COMMON NORMALS: patient oriented x3, moves all extremities and no focal motor deficits Psych: COMMON NORMALS: mental status grossly normal, Normal thought process present and cooperative THOUGHT PROCESS: Normal thought process present Skin: COMMON NORMALS: no rashes or lesions noted and no wounds GENERAL SKIN EXAM: no rashes or lesions noted Course Vital Signs: Vital signs: Vital Signs Temperature 97.9 F 09/30/23 23:25 Pulse Rate 105 H 09/30/23 23:25 Respiratory Rate 16 09/30/23 23:25 Blood Pressure 155/100 09/30/23 23:25 Pulse Oximetry 94 09/30/23 23:25 Oxygen Delivery Me thod Room Air 09/30/23 23:25 MDM - General Adult Medical Decision Making Patient presents here with hyperglycemia due to not taking his insulin today his blood sugars improved here is not DKA he is stable for discharge. Medical Records I reviewed the patient's medical records. Lab Data I reviewed the patient's lab results. 09/30/23 23:05 09/30/23 23:05 Laboratory Results WBC 7.24 10^3/uL (3.29-11.43) 09/30/23 23:05 RBC 5.90 10^6/uL (3.85-5.65) H 09/30/23 23:05 Hgb 17.00 g/dL (11.27-16.99) H 09/30/23 23:05 Hct 52.3 % (37-53) 09/30/23 23:05 MCV 88.6 fl (82-101) 09/30/23 23:05 MCH 28.8 pg (27-33) 09/30/23 23:05 MCHC 32.5 g/dL (30-55) 09/30/23 23:05 RDW 13.9 % (12.1-15.1) 09/30/23 23:05 Plt Count 205 10^3/cmm (157-399) 09/30/23 23:05 MPV 11.0 fL (7.4-10.4) H 09/30/23 23:05 Neut % (Auto) 51.0 % 09/30/23 23:05 Lymph % (Auto) 41.6 % 09/30/23 23:05 [place] % (Auto) 5.5 % 09/30/23 23:05 Eos % (Auto) 1.2 % 09/30/23 23:05 Baso % (Auto) 0.4 % 09/30/23 23:05 Neut # (Auto) 3.69 10^3/uL (1.8-7.7) 09/30/23 23:05 Lymph # (Auto) 3.0 10^3/uL (0.8-4.8) 09/30/23 23:05 [place] # (Auto) 0.4 10^3/uL (0.2-0.9) 09/30/23 23:05 Eos # (Auto) 0.1 10^3/uL (0.0-0.8) 09/30/23 23:05 Baso # (Auto) 0.0 10^3/uL (0.0-0.1) 09/30/23 23:05 Nucleated RBC % (auto) 0 % 09/30/23 23:05 Nucleated RBCs # 0.0 /100WBC 09/30/23 23:05 Sodium 136 mmol/L (136-145) 09/30/23 23:05 Potassium 3.9 mmol/L (3.5-5.1) 09/30/23 23:05 Chloride 95 mmol/L (98-107) L 09/30/23 23:05 Carbon Dioxide 26 mmol/L (22-29) 09/30/23 23:05 Anion Gap 18.9 (5-19) 09/30/23 23:05 BUN 12 mg/dL (6-20) 09/30/23 23:05 Creatinine 1.0 mg/dL (0.7-1.2) 09/30/23 23:05 GFR Calculation 81.2 mL/min (90-130) L 09/30/23 23:05 Glucose 428 mg/dL (65-115) H 09/30/23 23:05 POC Glucose 359 mg/dL (70-110) H 10/01/23 01:05 Calculated Osmolality 300 mOsm/kg (285-295) H 09/30/23 23:05 Calcium 9.4 mg/dL (8.5-10.5) 09/30/23 23:05 No radiology studies performed this visit Discharge Plan Discharge Patient Disposition: Home Clinical Impression: Hyperglycemia Condition: Stable Prescriptions: No Action gabapentin [Neurontin] 300 mg capsule 300 mg PO BID atorvastatin 40 mg tablet 40 mg PO BEDTIME metformin 500 mg tablet extended release 24hr 1,000 mg PO DAILY Mounjaro 2.5 mg/0.5 mL pen injector 2.5 mg SUBCUT Q7D 30 Days Qty: 2.5 0RF Rx Instructions: 2.5mg weekly for 1month; 5mg weekly for 1month; 7.5mg weekly and continue aripiprazole 30 mg tablet 15 mg PO BID 30 Days Qty: 30 3RF divalproex 500 mg tablet extended release 24 hr 2,000 mg PO BEDTIME 30 Days Qty: 120 4RF venlafaxine 75 mg capsule,extended release 24hr 225 mg PO DAILY 30 Days Qty: 90 3RF olanzapine 5 mg tablet,disintegrating 5 mg PO DAILY Qty: 30 0RF Rx Instructions: Take one tablet daily at 5 PM metoprolol succinate 25 mg tablet extended release 24 hr 25 mg PO DAILY Qty: 90 0RF cephalexin 500 mg capsule 500 mg PO BID Qty: 14 0RF insulin lispro [Humalog KwikPen Insulin] 100 unit/mL insulin pen See Rx Instructions .ROUTE .COMPLEX Qty: 15 0RF Dose Instruction: INJECT FOUR UNITS SUBCUTANEOUSLY EVERY 6 HOURS NEEDED FOR BG ABOVE 400 Rx Instructions: INJECT FOUR UNITS SUBCUTANEOUSLY EVERY 6 HOURS NEEDED FOR BG ABOVE 400 Mounjaro 7.5 mg/0.5 mL pen injector 7.5 mg SUBCUT Q7D 30 Days Qty: 2.5 0RF diazepam 5 mg tablet 5 mg PO .COMPLEX Qty: 60 0RF Rx Instructions: Take one tablet by mouth every morning, and one tablet daily at 1 PM, if needed Lantus Solostar U-100 Insulin 100 unit/mL (3 mL) insulin pen 50 unit SUBCUT BEDTIME ferrous sulfate [iron] 325 mg (65 mg iron) Tablet 325 mg PO DAILY bismuth subsalicylate [Stomach Relief] 262 mg/15 mL suspension See Rx Instructions .ROUTE .COMPLEX Rx Instructions: 1 mL PO NEEDED irbesartan 150 mg tablet 150 mg PO DAILY Discharge Orders: Discharge ED (Routine); Ordered 10/01/23 Ordered By: Wale Vyas Referrals: Blair Cheatham MD [Primary Care Provider] - Discharge Diet: Advance as tolerated Discharge Activity: Resume usual activity Patient Instructions: Diabetic Hyperglycemia (ED) Coding Level of Care Code ED [employer] Manager for Chg Boyd
[2023-09-30 23:25] VITALS: BP 155/100; PULSE 105; RESP 16; TEMP 36.6; O2SAT 94; BMI 43.5
[2023-09-30 23:36] LABS: Basophils % 0.4 %; Eosinophils # 0.1 10^3/uL (0.0-0.8); Eosinophils % 1.2 %; Hematocrit 52.3 % (37-53); Lymphocytes % 41.6 %; Mean Corpuscular HGB Conc 32.5 g/dL (30-55); Mean Corpuscular Hemoglobin 28.8 pg (27-33); Mean Corpuscular Volume 88.6 fl (82-101); Monocytes # 0.4 10^3/uL (0.2-0.9); Monocytes % 5.5 %; Neutrophils # 3.69 10^3/uL (1.8-7.7); Nucleated Red Blood Cells % 0 %; Platelet Count 205 10^3/cmm (157-399); Red Cell Distribution Width 13.9 % (12.1-15.1); White Blood Count 7.24 10^3/uL (3.29-11.43)
[2023-09-30 23:42] LABS: Glucose Point of Care 405 mg/dL (70-110)
[2023-09-30] MEDS: sodium chloride 0.9% 1,000 ML 999 ML IV (23:43)
--- NOTE | 2023-09-30 23:47 | PC.NURSE ---
pt states he refused insulin today and is requesting Diet Coke. this nurse explained sugar was 405 and we could not give him diet coke at this time. Dr Asael watkins.
[2023-09-30 23:54] LABS: Anion Gap 18.9 (5-19); Blood Urea Nitrogen 12 mg/dL (6-20); Calcium 9.4 mg/dL (8.5-10.5); Carbon Dioxide 26 mmol/L (22-29); Chloride 95 mmol/L (98-107); Glomerular Filtration Rate 81.2 mL/min (90-130); Glucose 428 mg/dL (65-115); Osmolality Calculated 300 mOsm/kg (285-295); Potassium 3.9 mmol/L (3.5-5.1); Sodium 136 mmol/L (136-145)
[2023-10-01] MEDS: insulin regular-human 100 units/1 mL 10 UNIT IVP (00:25)
[2023-10-01 00:28] LABS: Glucose Point of Care 354 mg/dL (70-110)
[2023-10-01 01:09] LABS: Glucose Point of Care 359 mg/dL (70-110)
[2023-10-01 01:48] LABS: Glucose Point of Care 355 mg/dL (70-110)
[2023-10-01 01:59] VITALS: PULSE 105; RESP 16; TEMP 36.6; O2SAT 98
== END 2023-10-01 02:00 | disposition home or self-care (01) ==
PROVIDERS: Emergency Provider Emergency Medicine; PCP Family Medicine
DX: E11.65 Type 2 diabetes mellitus with hyperglycemia (principal); Z79.84 Long term (current) use of oral hypoglycemic drugs; Z79.4 Long term (current) use of insulin; E78.5 Hyperlipidemia, unspecified; I10 Essential (primary) hypertension; E11.42 Type 2 diabetes mellitus with diabetic polyneuropathy; F17.290 Nicotine dependence, other tobacco product, uncomplicated
CPT/HCPCS: 36416; 80048; 82962; 85025; 96374; 99284; J1815; J7030

== ENCOUNTER 2023-10-06 23:08 | Emergency (ER) | payer MEDICARE, MEDICAID, SELFPAY ==
[2023-10-06 23:09] VITALS: BP 126/72; PULSE 125; RESP 18; TEMP 36.6; O2SAT 90; BMI 36.9
--- NOTE | 2023-10-06 23:23 | ECG_ITS ---
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 Measurements Intervals [place] Rate: 118 P: 42 ID: [id number] QRS: 15 QRSD: 107 T: 41 QT: 308 QTc: 432 Interpretive Statements SINUS TACHYCARDIA INDETERMINATE AXIS ANTEROSEPTAL MYOCARDIAL INFARCTION , OF INDETERMINATE AGE [40+ ms Q WAVE IN V1-V4] Compared to ECG 08/24/2023 23:02:16 Indeterminate axis now present Myocardial infarct finding still present Electronically Signed On 10-07-2023 21:28:52 FEATHER MIXER by Migdalia Chavez M.D. [email or web address]
--- NOTE | 2023-10-06 23:23 | XRR_ITS ---
PROCEDURE INFORMATION: Exam: XR Chest Exam date and time: 10/06/2023 11:46 PM Age: 43 years old Clinical indication: Chest pressure; Patient HX: C/O chest pain; Additional info: Cp TECHNIQUE: Imaging protocol: Radiologic exam of the chest. Views: 1 view. COMPARISON: CR (CHEST, ) 08/24/2023 2:53 AM FINDINGS: Lungs: The lung bases are suboptimally assessed due to technique however the upper lungs are clear of focal consolidation. Pleural spaces: Unremarkable. No pleural effusion. No pneumothorax. Heart/Mediastinum: Cardiac silhouette appears normal in size. No obvious vascular congestion. Bones/joints: No acute osseous findings. Other findings: Single view was submitted. XR/XR chest 1V portable [id number] IMPRESSION: No obvious acute consolidation. Suboptimal lung base assessment. Followup including lateral view may be obtained if clinically indicated.
[2023-10-06 23:34] LABS: Basophils % 0.6 %; Eosinophils # 0.1 10^3/uL (0.0-0.8); Eosinophils % 1.9 %; Hematocrit 49.9 % (37-53); Lymphocytes # 2.8 10^3/uL (0.8-4.8); Lymphocytes % 54.7 %; Mean Corpuscular HGB Conc 33.3 g/dL (30-55); Mean Corpuscular Hemoglobin 29.2 pg (27-33); Mean Corpuscular Volume 87.7 fl (82-101); Mean Platelet Volume 10.9 fL (7.4-10.4); Monocytes # 0.3 10^3/uL (0.2-0.9); Monocytes % 6.6 %; Neutrophils # 1.84 10^3/uL (1.8-7.7); Neutrophils % 35.4 %; Nucleated Red Blood Cells % 0 %; Platelet Count 198 10^3/cmm (157-399); Red Blood Count 5.69 10^6/uL (3.85-5.65); Red Cell Distribution Width 13.5 % (12.1-15.1); White Blood Count 5.19 10^3/uL (3.29-11.43)
[2023-10-06] MEDS: ondansetron 2 mg/ML SDV 2 mL 4 MG IVP (23:44)
[2023-10-06] MEDS: sodium chloride 0.9% 1,000 ML 999 ML IV (23:44)
[2023-10-06] MEDS: morphine 4 mg/mL SDV 1 mL IVP (23:44)
[2023-10-07] LABS: Troponin(5th) Baseline 7 ng/L (0-15)
[2023-10-07 00:07] LABS: Alanine Aminotransferase 39 U/L (0-41); Albumin Level 4.3 g/dL (3.5-5.2); Alkaline Phosphatase 93 U/L (40-130); Anion Gap 16.2 (5-19); Aspartate Amino Transferase 16 U/L (0-40); Blood Urea Nitrogen 12 mg/dL (6-20); Calcium 9.4 mg/dL (8.5-10.5); Carbon Dioxide 29 mmol/L (22-29); Chloride 95 mmol/L (98-107); D Dimer 0.29 ug/mLFEU (0-0.59); Globulin 2.2 g/dL (1.3-4.6); Glucose 333 mg/dL (65-115); NT Pro B Type Natriuretic Pept < 36 pg/mL (0-125); Osmolality Calculated 295 mOsm/kg (285-295); Potassium 4.2 mmol/L (3.5-5.1); Sodium 136 mmol/L (136-145); Total Bilirubin 0.3 mg/dL (0.15-1.2); Total Protein 6.5 g/dL (6.6-8.7)
[2023-10-07 00:11] LABS: SARS Covid-2 Antigen negative (Negative)
[2023-10-07 00:19] VITALS: BP 142/92; PULSE 112; RESP 18; O2SAT 91
[2023-10-07 00:22] LABS: Ketone (Acetest) Serum Negative (Negative)
--- NOTE | 2023-10-07 01:20 | ED_ITS ---
HPI - Chest Pain 2 General: Chief Complaint: Chest Pain Stated Complaint: N/V, CP Time Seen by Provider: 10/06/23 23:10 History of Present Illness: [age]-year-old male with no prior histor y of coronary disease. He presents with chest discomfort, vomiting, cough and some diarrhea. Chest discomfort started this evening. He states that he vomited his cereal when eating. He is having some shortness of breath as well. Pain is worse with breathing. No fever. No leg swelling. The patient has a history of diabetes with insulin dependence. Associated symptoms: Deny abdominal pain, dyspnea, fever(s) or palpitations Review of Systems 2 Const: Denies: fever(s), chills or body aches Eyes: Denies: change in vision Card: Denies: palpitations Resp: Denies: dyspnea, productive cough or wheezing GI: Denies: abdominal pain or hematochezia Skin/Breast: Denies: rash Neuro: Denies: headache(s), weakness in extremities, dizziness or confusion PFSH ED 2 PFSH: Medical History Bipolar 1 disorder Coronary-myocardial bridge Fracture of [place] Hyperlipidemia Hypertension Other reactions to severe stress Peripheral neuropathy Psychiatric care Pulmonary embolism Type 2 diabetes mellitus Surgical History History of appendectomy Social History Smoking and tobacco/nicotine status: current every day tobacco/nicotine user e- cigarettes Alcohol intake: current Alcohol intake frequency: few times a month Substance/Drug Use: never Marital status: Single Physical Exam 2 Const: COMMON NORMALS: no acute distress GENERAL APPEARANCE: cooperative; not ill appearing and not frail appearing HENMT: COMMON NORMALS: normocephalic, atraumatic and Normal external nose present HEAD & SCALP: normocephalic and atraumatic FACE & SINUS: normal facial exam and face symmetric NOSE: Normal external nose present Eye: COMMON NORMALS: Equal, round and reactive pupils present and EOMs intact bilaterally PUPIL: Yes Equal, round and reactive pupils present Neck/C-Spine: GENERAL: Yes trachea midline Chest: CHEST: Yes Symmetrical chest wall rise Resp: COMMON NORMALS: normal respiratory effort, No retractions, No use of accessory muscles and clear to auscultation bilaterally AUSCULTATION: clear to auscultation bilaterally Cardio: COMMON NORMALS: regular rate and regular rhythm RATE: regular rate RHYTHM: regular rhythm GI: COMMON NORMALS: Normal to inspection, nondistended, normoactive bowel sounds present Extremity: COMMON NORMALS: no pedal edema Neuro: MALINDA COMA SCALE: document GCS findings Malinda coma scale eye opening: Spontaneous [place] coma scale verbal response: Orientated [place] coma scale motor response: Obey commands [place] coma scale total score: 15 S ENSORY EXAM: Yes extremities (intact) Psych: COMMON NORMALS: speech normal SPEECH: Yes normal speech Skin: COMMON NORMALS: no rashes or lesions noted GENERAL SKIN EXAM: no rashes or lesions noted Course 2 Vital Signs: Vital signs: Vital Signs Temperature 97.8 F 10/06/23 23:09 Pulse Rate 91 10/07/23 01:52 Respiratory Rate 18 10/07/23 01:52 Blood Pressure 137/87 10/07/23 01:52 Pulse Oximetry 92 10/07/23 01:52 Oxygen Delivery Me thod Nasal Cannula 10/07/23 00:19 Oxygen Flow Rate 2 10/07/23 00:19 MDM - Chest Pain Medical Decision Making Patient was originally on oxygen, now maintaining saturation with room air. CBC is normal. Sugar was 333. Bicarb level is normal. Chest x-ray is negative. COVID-19 antigen is negative. EKG shows sinus tachycardia with no acute ST wave changes. Troponin remains normal at 2 hours. D-dimer is normal. Vomiting has resolved. Chest pain is resolved. Lab Data 10/06/23 23:15 10/06/23 23:15 Radiology Impressions Chest X-Ray 10/06/23 23:23 IMPRESSION: No obvious acute consolidation. Suboptimal lung base assessment. Followup including lateral view may be obtained if clinically indicated. Laboratory Results WBC 5.19 10^3/uL (3.29-11.43) 10/06/23 23:15 RBC 5.69 10^6/uL (3.85-5.65) H 10/06/23 23:15 Hgb 16.60 g/dL (11.27-16.99) 10/06/23 23:15 Hct 49.9 % (37-53) 10/06/23 23:15 MCV 87.7 fl (82-101) 10/06/23 23:15 MCH 29.2 pg (27-33) 10/06/23 23:15 MCHC 33.3 g/dL (30-55) 10/06/23 23:15 RDW 13.5 % (12.1-15.1) 10/06/23 23:15 Plt Count 198 10^3/cmm (157-399) 10/06/23 23:15 MPV 10.9 fL (7.4-10.4) H 10/06/23 23:15 Neut % (Auto) 35.4 % 10/06/23 23:15 Lymph % (Auto) 54.7 % 10/06/23 23:15 [place] % (Auto) 6.6 % 10/06/23 23:15 Eos % (Auto) 1.9 % 10/06/23 23:15 Baso % (Auto) 0.6 % 10/06/23 23:15 Neut # (Auto) 1.84 10^3/uL (1.8-7.7) 10/06/23 23:15 Lymph # (Auto) 2.8 10^3/uL (0.8-4.8) 10/06/23 23:15 [place] # (Auto) 0.3 10^3/uL (0.2-0.9) 10/06/23 23:15 Eos # (Auto) 0.1 10^3/uL (0.0-0.8) 10/06/23 23:15 Baso # (Auto) 0.0 10^3/uL (0.0-0.1) 10/06/23 23:15 Nucleated RBC % (auto) 0 % 10/06/23 23:15 Nucleated RBCs # 0.0 /100WBC 10/06/23 23:15 D-Dimer 0.29 ug/mLFEU (0-0.59) 10/06/23 23:15 Sodium 136 mmol/L (136-145) 10/06/23 23:15 Potassium 4.2 mmol/L (3.5-5.1) 10/06/23 23:15 Chloride 95 mmol/L (98-107) L 10/06/23 23:15 Carbon Dioxide 29 mmol/L (22-29) 10/06/23 23:15 Anion Gap 16.2 (5-19) 10/06/23 23:15 BUN 12 mg/dL (6-20) 10/06/23 23:15 Creatinine 0.8 mg/dL (0.7-1.2) 10/06/23 23:15 GFR Calculation 105.0 mL/min (90-130) 10/06/23 23:15 Glucose 333 mg/dL (65-115) H 10/06/23 23:15 Calculated Osmolality 295 mOsm/kg (285-295) 10/06/23 23:15 Calcium 9.4 mg/dL (8.5-10.5) 10/06/23 23:15 Total Bilirubin 0.3 mg/dL (0.15-1.2) 10/06/23 23:15 AST 16 U/L (0-40) 10/06/23 23:15 ALT 39 U/L (0-41) 10/06/23 23:15 Alkaline Phosphatase 93 U/L (40-130) 10/06/23 23:15 Troponin T Baseline 7 ng/L (0-15) 10/06/23 23:15 Troponin T 120 Minute 6.70 ng/L (0-15) 10/07/23 01:04 Delta Troponin T -0.30 ABS# (0-10) L 10/07/23 01:04 NT-Pro-B Natriuret Pep < 36 pg/mL (0-125) 10/06/23 23:15 Total Protein 6.5 g/dL (6.6-8.7) L 10/06/23 23:15 Albumin 4.3 g/dL (3.5-5.2) 10/06/23 23:15 Globulin 2.2 g/dL (1.3-4.6) 10/06/23 23:15 Serum Ketones Negative (Negative) 10/06/23 23:15 SARS-CoV-2 Ag (Rapid) negative (Negative) 10/06/23 11:48 All radiology interpretation(s) finalized by discharge Discharge Plan Discharge Patient Disposition: Home Clinical Impression: Hyperglycemia, Vomiting in adult, Chest pain Condition: Stable Prescriptions: No Action gabapentin [Neurontin] 300 mg capsule 300 mg PO BID atorvastatin 40 mg tablet 40 mg PO BEDTIME metformin 500 mg tablet extended release 24hr 1,000 mg PO DAILY Mounjaro 2.5 mg/0.5 mL pen injector 2.5 mg SUBCUT Q7D 30 Days Qty: 2.5 0RF Rx Instructions: 2.5mg weekly for 1month; 5mg weekly for 1month; 7.5mg weekly and continue aripiprazole 30 mg tablet 15 mg PO BID 30 Days Qty: 30 3RF divalproex 500 mg tablet extended release 24 hr 2,000 mg PO BEDTIME 30 Days Qty: 120 4RF venlafaxine 75 mg capsule,extended release 24hr 225 mg PO DAILY 30 Days Qty: 90 3RF metoprolol succinate 25 mg tablet extended release 24 hr 25 mg PO DAILY Qty: 90 0RF olanzapine 5 mg tablet,disintegrating 5 mg PO DAILY Qty: 30 2RF Rx Instructions: Take one tablet daily at 5 PM diazepam 5 mg tablet 5 mg PO .COMPLEX Qty: 60 1RF Rx Instructions: Take one tablet by mouth every morning, and one tablet daily at 1 PM, if needed cephalexin 500 mg capsule 500 mg PO BID Qty: 14 0RF insulin lispro [Humalog KwikPen Insulin] 100 unit/mL insulin pen See Rx Instructions .ROUTE .COMPLEX Qty: 15 0RF Dose Instruction: INJECT FOUR UNITS SUBCUTANEOUSLY EVERY 6 HOURS NEEDED FOR BG ABOVE 400 Rx Instructions: INJECT FOUR UNITS SUBCUTANEOUSLY EVERY 6 HOURS NEEDED FOR BG ABOVE 400 Mounjaro 7.5 mg/0.5 mL pen injector 7.5 mg SUBCUT Q7D 30 Days Qty: 2.5 0RF Lantus Solostar U-100 Insulin 100 unit/mL (3 mL) insulin pen 50 unit SUBCUT BEDTIME ferrous sulfate [iron] 325 mg (65 mg iron) Tablet 325 mg PO DAILY bismuth subsalicylate [Stomach Relief] 262 mg/15 mL suspension See Rx Instructions .ROUTE .COMPLEX Rx Instructions: 1 mL PO NEEDED irbesartan 150 mg tablet 150 mg PO DAILY Discharge Orders: Discharge ED (Routine); Ordered 10/07/23 Ordered By: Abdiel Garcia Referrals: Blair Cheatham MD [Primary Care Provider] - 1-3 days Patient Instructions: Chest Pain (ED), Opioid Safety, Pain Management, Vomiting - Adult Coding Level of Care Code ED [employer] for Dasha Nix
--- NOTE | 2023-10-07 01:23 | ECG_ITS ---
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 Measurements Intervals [place] Rate: 118 P: 42 AR: 182 QRS: 15 QRSD: 107 T: 41 QT: 308 QTc: 432 Interpretive Statements SINUS TACHYCARDIA INDETERMINATE AXIS ANTEROSEPTAL MYOCARDIAL INFARCTION , OF INDETERMINATE AGE [40+ ms Q WAVE IN V1-V4] Compared to ECG 08/24/2023 23:02:16 Indeterminate axis now present Myocardial infarct finding still present Electronically Signed On 10-07-2023 21:34:52 STRAIN TECHNICIAN by Migdalia Chavez M.D. [id number]
[2023-10-07 01:52] VITALS: BP 137/87; PULSE 91; RESP 18; O2SAT 92
== END 2023-10-07 01:53 | disposition home or self-care (01) ==
PROVIDERS: Emergency Provider Emergency Medicine; PCP Family Medicine
DX: R07.9 Chest pain, unspecified (principal); R11.11 Vomiting without nausea; E11.65 Type 2 diabetes mellitus with hyperglycemia; Z79.84 Long term (current) use of oral hypoglycemic drugs; Z79.4 Long term (current) use of insulin; Z11.52 Encounter for screening for COVID-19; E78.5 Hyperlipidemia, unspecified; I10 Essential (primary) hypertension; E11.42 Type 2 diabetes mellitus with diabetic polyneuropathy; F17.290 Nicotine dependence, other tobacco product, uncomplicated
CPT/HCPCS: 71045; 80053; 82009; 83880; 84484; 85025; 85378; 87426; 93005; 96361; 96374; 96375; 99285; J2270; J2405; J7030

== ENCOUNTER 2023-10-09 00:04 | Emergency (ER) | payer MEDICARE, MEDICAID, SELFPAY ==
[2023-10-09 00:05] VITALS: BP 160/78; PULSE 139; RESP 18; TEMP 37.1; O2SAT 98; BMI 42.2
--- NOTE | 2023-10-09 02:18 | W.ED.PSYCHS ---
HPI - Psych General: Chief Complaint: Psychiatric Symptoms Stated Complaint: SI Time Seen by Provider: 10/09/23 00:19 History of Present Illness: 43-year-old male presents emergency department via EMS personnel at the request of local Police Department. EMS personnel state that they were contacted by local police to bring the patient to the emergency department to be evaluated for elevated mood and statements of self-harm. EMS states that the patient advised that he was going to go to the bridge and jump off. Patient states that he was upset at his caregiver as she had left him alone on several occasions and that he is unable to contact anyone to let them know that he is being left alone. He states he feels like he is not being heard when he voices his concerns. Patient states that he was not going to harm himself or anyone else. He has recently been involved in increased life difficulty secondary to interactions with law enforcement. At present the patient appears to be very cooperative and easily redirectable. Review of Systems General: Reports: 10 or more systems reviewed and unremarkable except in HPI and below Psych: Reports: irritability PFSH ED PFSH: Medical History Coronary-myocardial bridge Peripheral neuropathy Type 2 diabetes mellitus Hyperlipidemia Hypertension Pulmonary embolism Other reactions to severe stress Bipolar 1 disorder Most recent episode depressed [facility] Surgical History History of appendectomy Social History Smoking and tobacco/nicotine status: current every day tobacco/nicotine user e-cigarettes Alcohol intake: current Alcohol intake frequency: few times a month Substance/Drug Use: never Marital status: Single Physical Exam Narrative: EXAM NARRATIVE: Constitutional: the patient appears well nourished and of normal development. Vital signs as documented. No acute distress at present. Alert and oriented-to person, place, time and situation. Head, eyes, ears, nose, mouth, throat: Normocephalic, atraumatic. Pupils-equal, round, reactive to light. No scleral icterus. Normal-appearing external ears. Normal appearing nasal turbinates, no drainage. No obvious oral lesions, posterior oropharynx without erythema or exudates. Neck: Supple, trachea is midline, no lymphadenopathy, no jugular venous distension, thyromegaly, or carotid bruits. Carotid upstrokes are brisk bilaterally. Lungs: clear to auscultation to all lung perea. Symmetrical rise and fall of chest, no obvious signs of increased work of breathing at present. Cardiac: Regular rate and rhythm, positive S1, S2. No murmurs, rubs or gallops that I can appreciate Abdomen: Soft, non-tender to palpation, normal active bowel sounds to all quadrants. No palpable masses, no organomegaly and abdominal bruits. Extremities: 2+ pulses in the upper extremities that are equal bilaterally, 2+ pulses in the lower extremities that are equal bilaterally. Non-edematous. Moves all extremities well, sensation to all extremities are noted. Skin: Warm, dry, intact. There is a superficial abrasion to the middle of the patient's forehead. Psychiatric: Calm, cooperative, easily redirectable, no actual intent of suicidal ideation or homicidal ideation. No auditory visual hallucinations Course ED course: Patient's caregiver presented to the emergency department approximately 30 to 40 minutes after arrival of the patient. She did walk to the patient's room at which time he became very agitated and irritated. Patient continued to be very disrespectful to both myself and the nursing staff that was present. When I asked the patient's classifications officer cc/cm questions regarding the presentation of the patient she stated several times that her shift had ended approximately 38 minutes prior. I at that time inquired with the patient's caregiver, if her shift ended 38 minutes ago then who is the person that is supposed to be monitoring the patient while at his residence. The caregiver at that time stated several reasons as to why she was unavailable and not able to be there with the patient and then stated that the next person that was going to be taking care of the patient would not arrive to the emergency department until 2 AM. I continue to question the patient caregiver regarding the events surrounding the patient at which time she became very disrespectful and belligerent with elevated tone and mood while standing in the hallway of the emergency department. This was witnessed by our charge nurse Starla as well as several other ER nursing staff members. It was at this time that I requested that the patient's personal care provider leave the emergency department as she was being extremely disruptive and confrontational. I did ask for her to provide me the contact information of her employer or her immediate plastic tubing insulation supervisor. At that point she stated that she did not have to give me any information and continued to be belligerent as she was escorted out of the emergency department. I did obtain the patient's guardian contact phone number from the patient as well as the [facility] [employer] plastic tubing insulation supervisor Abiola from the patient. I did contact June the patient's guardian and advised her of my concerns regarding the patient's classifications officer cc/cm as well as the interaction of the patient's caregiver. June the patient's guardian and I discussed the patient's initial arrival time as well as the timeline of the preceding events prior to the patient arriving here in the emergency department. June the patient's guardian did advise that she would be contacting Abiola Marshall the supervising person at [facility]. June also requested that I contacted Abiola Marshall and advise her of the situation that had occurred with the patient's classifications officer cc/cm. I did contact Abiola and had an extensive discussion with her regarding the preceding and inciting events while in the emergency department of Her employee, Josi. Abiola the plastic tubing insulation supervisor did advise me that she was having a another employee and Mr. Matthew Crespo arrived to continue providing personal care to the patient. Vital Signs: Vital signs: Vital Signs Temperature 98.7 F 10/09/23 00:05 Pulse Rate 139 H 10/09/23 00:05 Respiratory Rate 18 10/09/23 00:05 Blood Pressure 160/78 10/09/23 00:05 Pulse Oximetry 98 10/09/23 00:05 Oxygen Delivery Me thod Room Air 10/09/23 00:05 MDM - Psych Medical Decision Making Physical exam completed and documented,I reviewed the patient's previous medical records and will plan on discharging home. Medical Records I reviewed the patient's medical records. No radiology studies performed this visit Discharge Plan Discharge Patient Disposition: Home Clinical Impression: Mood disorder Condition: Stable Prescriptions: No Action gabapentin [Neurontin] 300 mg capsule 300 mg PO BID atorvastatin 40 mg tablet 40 mg PO BEDTIME metformin 500 mg tablet extended release 24hr 1,000 mg PO DAILY Mounjaro 2.5 mg/0.5 mL pen injector 2.5 mg SUBCUT Q7D 30 Days Qty: 2.5 0RF Rx Instructions: 2.5mg weekly for 1month; 5mg weekly for 1month; 7.5mg weekly and continue aripiprazole 30 mg tablet 15 mg PO BID 30 Days Qty: 30 3RF divalproex 500 mg tablet extended release 24 hr 2,000 mg PO BEDTIME 30 Days Qty: 120 4RF venlafaxine 75 mg capsule,extended release 24hr 225 mg PO DAILY 30 Days Qty: 90 3RF metoprolol succinate 25 mg tablet extended release 24 hr 25 mg PO DAILY Qty: 90 0RF olanzapine 5 mg tablet,disintegrating 5 mg PO DAILY Qty: 30 2RF Rx Instructions: Take one tablet daily at 5 PM diazepam 5 mg tablet 5 mg PO .COMPLEX Qty: 60 1RF Rx Instructions: Take one tablet by mouth every morning, and one tablet daily at 1 PM, if needed cephalexin 500 mg capsule 500 mg PO BID Qty: 14 0RF insulin lispro [Humalog KwikPen Insulin] 100 unit/mL insulin pen See Rx Instructions .ROUTE .COMPLEX Qty: 15 0RF Dose Instruction: INJECT FOUR UNITS SUBCUTANEOUSLY EVERY 6 HOURS NEEDED FOR BG ABOVE 400 Rx Instructions: INJECT FOUR UNITS SUBCUTANEOUSLY EVERY 6 HOURS NEEDED FOR BG ABOVE 400 Mounjaro 7.5 mg/0.5 mL pen injector 7.5 mg SUBCUT Q7D 30 Days Qty: 2.5 0RF Lantus Solostar U-100 Insulin 100 unit/mL (3 mL) insulin pen 50 unit SUBCUT BEDTIME ferrous sulfate [iron] 325 mg (65 mg iron) Tablet 325 mg PO DAILY bismuth subsalicylate [Stomach Relief] 262 mg/15 mL suspension See Rx Instructions .ROUTE .COMPLEX Rx Instructions: 1 mL PO NEEDED irbesartan 150 mg tablet 150 mg PO DAILY Discharge Orders: Discharge ED (Routine); Ordered 10/09/23 Ordered By: Agapito Crain Referrals: Blair Cheatham MD [Primary Care Provider] - Discharge Diet: Advance as tolerated Discharge Activity: Resume usual activity Patient Instructions: Opioid Safety, Pain Management Coding Level of Care Code ED [employer] Service Technician for Dasha Nix
== END 2023-10-09 02:40 | disposition home or self-care (01) ==
PROVIDERS: Emergency Provider Internal Medicine; PCP Family Medicine
DX: F39 Unspecified mood [affective] disorder (principal); Z79.84 Long term (current) use of oral hypoglycemic drugs; Z79.4 Long term (current) use of insulin; E11.42 Type 2 diabetes mellitus with diabetic polyneuropathy; E78.5 Hyperlipidemia, unspecified; I10 Essential (primary) hypertension; F17.290 Nicotine dependence, other tobacco product, uncomplicated
CPT/HCPCS: 99283

== ENCOUNTER → 2023-10-11 09:54 | Outpatient (BNVA) | payer MEDICARE, MEDICAID, SELFPAY | PROVIDERS: PCP Family Medicine; Visit Provider Podiatrist Foot & Ankle Surgery | DX: E11.9 Type 2 diabetes mellitus without complications (principal); L60.3 Nail dystrophy; Z79.84 Long term (current) use of oral hypoglycemic drugs; Z79.4 Long term (current) use of insulin | CPT/HCPCS: 11721; 99203 ==

== ENCOUNTER 2023-10-14 19:29 | Emergency (ER) | payer MEDICARE, MEDICAID, SELFPAY ==
[2023-10-14 19:31] VITALS: BP 143/98; PULSE 127; RESP 16; TEMP 36.8; O2SAT 98; BMI 39.5
--- NOTE | 2023-10-14 19:36 | XRR_ITS ---
PROCEDURE INFORMATION: Exam: XR Abdomen Exam date and time: 10/14/2023 8:01 PM Age: 43 years old Clinical indication: Other: Fb; Patient HX: Foreign body ingestion TECHNIQUE: Imaging protocol: Radiologic exam of the abdomen. Views: Frontal supine view of the abdomen. 1 View. COMPARISON: CR (CHEST, ) 10/14/2023 8:00 PM FINDINGS: Tubes, catheters and devices: One of the two views demonstrates a 4 cm electronic device over the right abdomen, potentially external to the patient, please correlate clinically. Gastrointestinal tract: Normal. No bowel dilation. Bones/joints: Unremarkable. XR/XR KUB [id number] IMPRESSION: One of the two views demonstrates a 4 cm electronic device over the right abdomen, potentially external to the patient, please correlate clinically.
--- NOTE | 2023-10-14 19:36 | XRR_ITS ---
PROCEDURE INFORMATION: Exam: XR Chest Exam date and time: 10/14/2023 8:00 PM Age: 43 years old Clinical indication: Other: Fb; Patient HX: Foreign body ingestion TECHNIQUE: Imaging protocol: Radiologic exam of the chest. Views: 1 view. COMPARISON: CR (CHEST, ) 10/06/2023 11:46 PM FINDINGS: Lungs: Unremarkable. No consolidation. Pleural spaces: Unremarkable. No pleural effusion. No pneumothorax. Heart/Mediastinum: Unremarkable. No cardiomegaly. Bones/joints: Unremarkable. XR/XR chest 1V portable [id number] IMPRESSION: No acute findings.
--- NOTE | 2023-10-14 19:39 | W.ED.GENADLT ---
HPI - General Adult General: Chief complaint: General Medical Stated complaint: Swollowed a metal washer Time Seen by Provider: 10/14/23 19:36 History of Present Illness: 43-year-old male patient was brought in by caregiver staff for concerns of ingestion of a foreign object. Patient was supposedly ingested a metal washer. Patient appears in no pain. Respirations are even. Lungs clear to auscultation. Patient denies any shortness of breath or abdominal pain. Associated symptoms: Deny dyspnea Review of Systems General: Reports: 10 or more systems reviewed and unremarkable except in HPI and below Resp: Denies: dyspnea GI: Denies: abdominal pain PFS ED PFSH: Medical History Coronary-myocardial bridge Peripheral neuropathy Type 2 diabetes mellitus Hyperlipidemia Hypertension Pulmonary embolism Other reactions to severe stress Bipolar 1 disorder Most recent episode depressed Fracture of [facility] care Surgical History History of appendectomy Social History Smoking and tobacco/nicotine status: current every day tobacco/nicotine user e-cigarettes Alcohol intake: current Alcohol intake frequency: few times a month Substance/Drug Use: never Marital status: Single Physical Exam Const: COMMON NORMALS: alert HENMT: COMMON NORMALS: normocephalic HEAD & SCALP: normocephalic Neck/C-Spine: GENERAL: Yes normal visual inspection Resp: COMMON NORMALS: normal respiratory effort and clear to auscultation bilaterally AUSCULTATION: clear to auscultation bilaterally Cardio: COMMON NORMALS: regular rate and regular rhythm RATE: regular rate RHYTHM: regular rhythm GI: COMMON NORMALS: Normal to inspection, nondistended, normoactive bowel sounds present : COMMON NORMALS: Yes no CVA tenderness BLADDER/KIDNEY EXAM: Yes no CVA tenderness Back/Pelvis: COMMON NORMALS: no CVA tenderness Extremity: COMMON NORMALS: normal to inspection Neuro: SENSORIUM/ORIENTATION: Yes alert Skin: COMMON NORMALS: turgor normal GENERAL SKIN EXAM: turgor normal Course Vital Signs: Vital signs: Vital Signs Temperature 98.3 F 10/14/23 19:31 Pulse Rate 127 H 10/14/23 19:31 Respiratory Rate 16 10/14/23 19:31 Blood Pressure 143/98 10/14/23 19:31 Pulse Oximetry 98 10/14/23 19:31 Oxygen Delivery Me thod Room Air 10/14/23 19:31 MDM - General Adult Medical Decision Making 43-year-old male patient comes in today for concerns of ingestion of a metal washer. On exam patient appears nontoxic. Respirations are even lungs are clear to auscultation. Abdomen soft nontender. Vital signs are normal except for some mild elevation in pulse. Differential diagnosis includes but not limited to bowel obstruction, aspiration, ingestion of foreign body. No bowel obstruction, no visible radiopaque object, and no pneumonia is noted on chest x-ray and KUB. Reviewed exam with patient and caregivers with recommendations for follow-up or return to the ER. XR interpretation done by ED provider, pending radiology final review Discharge Plan Discharge Patient Disposition: Home Clinical Impression: Encounter for observation for suspected ingested foreign body ruled out Condition: Stable Prescriptions: No Action gabapentin [Neurontin] 300 mg capsule 300 mg PO BID atorvastatin 40 mg tablet 40 mg PO BEDTIME metformin 500 mg tablet extended release 24hr 1,000 mg PO DAILY Mounjaro 2.5 mg/0.5 mL pen injector 2.5 mg SUBCUT Q7D 30 Days Qty: 2.5 0RF Rx Instructions: 2.5mg weekly for 1month; 5mg weekly for 1month; 7.5mg weekly and continue aripiprazole 30 mg tablet 15 mg PO BID 30 Days Qty: 30 3RF divalproex 500 mg tablet extended release 24 hr 2,000 mg PO BEDTIME 30 Days Qty: 120 4RF venlafaxine 75 mg capsule,extended release 24hr 225 mg PO DAILY 30 Days Qty: 90 3RF ciclopirox 0.77 % cream 1 applic topical DAILY 28 Days Qty: 90 0RF metoprolol succinate 25 mg tablet extended release 24 hr 25 mg PO DAILY Qty: 90 0RF olanzapine 5 mg tablet,disintegrating 5 mg PO DAILY Qty: 30 2RF Rx Instructions: Take one tablet daily at 5 PM diazepam 5 mg tablet 5 mg PO .COMPLEX Qty: 60 1RF Rx Instructions: Take one tablet by mouth every morning, and one tablet daily at 1 PM, if needed cephalexin 500 mg capsule 500 mg PO BID Qty: 14 0RF insulin lispro [Humalog KwikPen Insulin] 100 unit/mL insulin pen See Rx Instructions .ROUTE .COMPLEX Qty: 15 0RF Dose Instruction: INJECT FOUR UNITS SUBCUTANEOUSLY EVERY 6 HOURS NEEDED FOR BG ABOVE 400 Rx Instructions: INJECT FOUR UNITS SUBCUTANEOUSLY EVERY 6 HOURS NEEDED FOR BG ABOVE 400 Mounjaro 7.5 mg/0.5 mL pen injector 7.5 mg SUBCUT Q7D 30 Days Qty: 2.5 0RF Lantus Solostar U-100 Insulin 100 unit/mL (3 mL) insulin pen 50 unit SUBCUT BEDTIME ferrous sulfate [iron] 325 mg (65 mg iron) Tablet 325 mg PO DAILY bismuth subsalicylate [Stomach Relief] 262 mg/15 mL suspension See Rx Instructions .ROUTE .COMPLEX Rx Instructions: 1 mL PO NEEDED irbesartan 150 mg tablet 150 mg PO DAILY Discharge Orders: Discharge ED (Routine); Ordered 10/14/23 Ordered By: Ho Wagner Referrals: Blair Cheatham MD [Primary Care Provider] - Discharge Diet: Usual diet Discharge Activity: Increase activity as tolerated Activity Restrictions/Additional Instructions: Activity as tolerated. Follow-up with primary care for further instructions. Return to ED for new concerns. No foreign body was noted at this time. Coding Level of Care Code ED [employer] for Dasha Nix
[2023-10-14 20:24] VITALS: PULSE 110; RESP 18; O2SAT 96
== END 2023-10-14 20:22 | disposition home or self-care (01) ==
PROVIDERS: Emergency Provider Nurse Practitioner Family; PCP Family Medicine
DX: Z03.89 Encounter for observation for other suspected diseases and conditions ruled out (principal); Z79.84 Long term (current) use of oral hypoglycemic drugs; Z79.4 Long term (current) use of insulin; E11.42 Type 2 diabetes mellitus with diabetic polyneuropathy; E78.5 Hyperlipidemia, unspecified; F17.290 Nicotine dependence, other tobacco product, uncomplicated
CPT/HCPCS: 71045; 74018; 99284

== ENCOUNTER 2023-10-23 21:54 | Observation (INO) | payer MEDICARE, MEDICAID, SELFPAY ==
[2023-10-23 21:56] VITALS: BP 113/75; PULSE 129; RESP 20; TEMP 36.6; O2SAT 94; BMI 43.4
[2023-10-23 22:03] LABS: Glucose Point of Care 106 mg/dL (70-110)
--- NOTE | 2023-10-23 22:07 | ED_ITS ---
HPI - Recheck/Abnormal Lab/Rx 2 General: Chief Complaint: Recheck/Abnormal Lab/Rx Stated Complaint: Blood Sugar\Below 60 Time Seen by Provider: 10/23/23 21:58 History of Present Illness: Patient is a 43-year-old male with a past medical history significant for type 2 diabetes mellitus, hypertension, hyperlipidemia, prior pulmonary embolisms, and bipolar 1 disorder who presents to the emergency department for evaluation of a syncopal episode and difficulties controlling his blood sugar. Patient reports that at approximately 1915 the patient had a syncopal episode lasting for approximately 5 minutes witnessed by the caregiver. The caregiver called EMS who checked his blood sugar which read 54. Patient ate peanut butter and orange juice which brought his sugars up. Patient did not present to the emergency department at that time. Patient has continued to have worsening lightheadedness, dizziness, and blurred vision so he decided present to the emergency department for further management/evaluation. Patient reports that he does take Eliquis for his known history of pulmonary embolisms. Caregiver reports that the patient hit his left forehead in the fall. Patient states that he normally takes metformin and Lantus for management of his type 2 diabetes mellitus, however, the patient has not taken this medication in the last several days due to low blood sugar. Patient denies headache, facial pain, neck pain, chest pain, shortness of breath, palpitations, numbness, tingling, extremity weakness, or any other associated symptoms. No other complaints at this time. Review of Systems 2 General: Reports: 10 or more systems reviewed and unremarkable except in HPI and below Const: Denies: fever(s) or chills Eyes: Reports: blurry vision; Denies: eye discharge or eye redness ENMT: Denies: throat pain, ear or mastoid pain, ear discharge, nasal discharge or nasal congestion Card: Reports: lightheadedness and syncope; Denies: chest pain or palpitations Resp: Denies: dyspnea, productive cough, non-productive cough or wheezing GI: Denies: abdominal pain, nausea, vomiting, diarrhea or constipation : Denies: dysuria or hematuria Musc: Denies: neck pain, back pain or extremity pain Skin/Breast: Denies: rash Neuro: Reports: dizziness; Denies: headache(s), numbness in extremities, weakness in extremities or confusion PFS ED 2 PFSH: Medical History Coronary-myocardial bridge Peripheral neuropathy Type 2 diabetes mellitus Hyperlipidemia Hypertension Pulmonary embolism Other reactions to severe stress Bipolar 1 disorder Most recent episode depressed Fracture of [facility] Surgical History History of appendectomy Social History Smoking and tobacco/nicotine status: current every day tobacco/nicotine user e- cigarettes Alcohol intake: current Alcohol intake frequency: few times a month Substance/Drug Use: never Marital status: Single Physical Exam 2 Const: COMMON NORMALS: no acute distress, patient oriented x3 and alert HENMT: COMMON NORMALS: normocephalic, atraumatic, TM's normal bilaterally, moist oral mucous membranes and oropharynx normal HEAD & SCALP: normocephalic and atraumatic TYMPANIC MEMBRANE: TM's normal bilaterally OTHER: No Sanabria sign or raccoon sign noted. No other evidence of head trauma appreciated anywhere on examination. Bilateral tympanic membranes pearly campbell without evidence of effusion or hemotympanums. Posterior oropharynx is patent without swelling, lesions, erythema, or exudates. Eye: COMMON NORMALS: Equal, round and reactive pupils present, EOMs intact bilaterally, conjunctivae normal and no scleral icterus CONJUNCTIVA: Yes conjunctivae normal PUPIL: Yes Equal, round and reactive pupils present Neck/C-Spine: COMMON NORMALS: full ROM, no lymphadenopathy, supple, no meningeal signs and no JVD Chest: COMMONS NORMALS: normal inspection of the chest Resp: COMMON NORMALS: normal respiratory effort, No retractions, No use of accessory muscles and clear to auscultation bilaterally AUSCULTATION: clear to auscultation bilaterally Cardio: COMMON NORMALS: no JVD, regular rhythm, S1 normal heart sound present, S2 normal heart sound present, No gallops present (Cardio), No clicks present (Cardio), No murmurs present (Cardio) and No rub (Cardio) RATE: tachycardic RHYTHM: regular rhythm HEART SOUNDS: S1 normal heart sound present and S2 normal heart sound present GI: COMMON NORMALS: Normal to inspection, nondistended, normoactive bowel sounds present, Soft to palpation and non-tender PALPATION: Yes Soft to palpation : COMMON NORMALS: Yes no CVA tenderness BLADDER/KIDNEY EXAM: Yes no CVA tenderness Back/Pelvis: COMMON NORMALS: no CVA tenderness, thoracic and lumbar spine normal to inspection and no thoracic nor lumbar tenderness Extremity: OTHER: Moving bilateral upper and lower extremities without weakness or deficit. Neuro: COMMON NORMALS: patient oriented x3 SENSORIUM/ORIENTATION: Yes alert MENINGEAL SIGNS: Yes no meningeal signs OTHER: Patient is alert and oriented x 4. No focal neurological deficits noted on examination. Sensation intact the bilateral upper and lower extremities. Cranial nerves II through XII grossly intact. Negative pronator drift. Skin: COMMON NORMALS: no rashes or lesions noted GENERAL SKIN EXAM: no rashes or lesions noted Course 2 Vital Signs: Vital signs: Vital Signs Temperature 97.9 F 10/23/23 21:56 Pulse Rate 126 H 10/23/23 23:07 Respiratory Rate 20 H 10/23/23 21:56 Blood Pressure 144/85 10/23/23 23:07 Pulse Oximetry 97 10/23/23 23:07 Oxygen Delivery Me thod Room Air 10/23/23 23:07 MDM - Recheck/Abnormal Lab/Rx Medical Decision Making Patient is a 43-year-old male with a past medical history significant for type 2 diabetes mellitus, hypertension, hyperlipidemia, prior pulmonary embolisms, and bipolar 1 disorder who presents to the emergency department for evaluation of a syncopal episode and difficulties controlling his blood sugar. On physical examination patient is nontoxic and in no acute distress. Patient did remain tachycardic throughout the ED course. EKG sinus tachycardia. Chest x-ray showed no acute cardiopulmonary pathology. CT of the head showed no acute intracranial abnormality. CBC, CMP, and initial troponin all grossly unremarkable. Urine drug screen positive for benzodiazepines. Patient was placed on D5 in the emergency department and sugars continuously decreased. I consulted the hospitalist who recommended placing the patient on D10 and admission to a medical floor. Patient stated understanding of all instructions and was agreeable to admission. At this point in time plan of care was passed over to my colleague Dr. Swann in the emergency department. Lab Data 10/23/23 22:58 10/23/23 22:58 Radiology Impressions Chest X-Ray 10/23/23 22:22 IMPRESSION: No acute infiltrate. Head CT 10/23/23 22:22 IMPRESSION: No acute intracranial abnormality. Laboratory Results WBC 10.10 10^3/uL (3.29-11.43) 10/23/23 22:58 RBC 5.93 10^6/uL (3.85-5.65) H 10/23/23 22:58 Hgb 17.80 g/dL (11.27-16.99) H 10/23/23 22:58 Hct 51.9 % (37-53) 10/23/23 22:58 MCV 87.5 fl (82-101) 10/23/23 22:58 MCH 30.0 pg (27-33) 10/23/23 22:58 MCHC 34.3 g/dL (30-55) 10/23/23 22:58 RDW 13.9 % (12.1-15.1) 10/23/23 22:58 Plt Count 247 10^3/cmm (157-399) 10/23/23 22:58 MPV 10.5 fL (7.4-10.4) H 10/23/23 22:58 Neut % (Auto) 67.5 % 10/23/23 22:58 Lymph % (Auto) 24.3 % 10/23/23 22:58 [place] % (Auto) 6.8 % 10/23/23 22:58 Eos % (Auto) 0.4 % 10/23/23 22:58 Baso % (Auto) 0.3 % 10/23/23 22:58 Neut # (Auto) 6.82 10^3/uL (1.8-7.7) 10/23/23 22:58 Lymph # (Auto) 2.5 10^3/uL (0.8-4.8) 10/23/23 22:58 [place] # (Auto) 0.7 10^3/uL (0.2-0.9) 10/23/23 22:58 Eos # (Auto) 0.0 10^3/uL (0.0-0.8) 10/23/23 22:58 Baso # (Auto) 0.0 10^3/uL (0.0-0.1) 10/23/23 22:58 Nucleated RBC % (auto) 0 % 10/23/23 22:58 Nucleated RBCs # 0.0 /100WBC 10/23/23 22:58 Sodium 137 mmol/L (136-145) 10/23/23 22:58 Potassium 4.0 mmol/L (3.5-5.1) 10/23/23 22:58 Chloride 98 mmol/L (98-107) 10/23/23 22:58 Carbon Dioxide 25 mmol/L (22-29) 10/23/23 22:58 Anion Gap 18.0 (5-19) 10/23/23 22:58 BUN 16 mg/dL (6-20) 10/23/23 22:58 Creatinine 0.8 mg/dL (0.7-1.2) 10/23/23 22:58 GFR Calculation 105.0 mL/min (90-130) 10/23/23 22:58 Glucose 96 mg/dL (65-115) 10/23/23 22:58 POC Glucose 78 mg/dL (70-110) 10/24/23 00:22 Calculated Osmolality 285 mOsm/kg (285-295) 10/23/23 22:58 Calcium 9.6 mg/dL (8.5-10.5) 10/23/23 22:58 Total Bilirubin 0.2 mg/dL (0.15-1.2) 10/23/23 22:58 AST 12 U/L (0-40) 10/23/23 22:58 ALT 24 U/L (0-41) 10/23/23 22:58 Alkaline Phosphatase 80 U/L (40-130) 10/23/23 22:58 Troponin T Baseline 8 ng/L (0-15) 10/23/23 22:58 Total Protein 6.8 g/dL (6.6-8.7) 10/23/23 22:58 Albumin 4.5 g/dL (3.5-5.2) 10/23/23 22:58 Globulin 2.3 g/dL (1.3-4.6) 10/23/23 22:58 Urine Color Yellow (Yellow) 10/23/23 23:10 Urine Appearance Clear (CLEAR) 10/23/23 23:10 Urine pH 6 (5-7) 10/23/23 23:10 Ur Specific [place] 1.010 (1.005-1.030) 10/23/23 23:10 Urine Protein 1+ (Negative) H 10/23/23 23:10 Urine Glucose (UA) 4+ (Normal) H 10/23/23 23:10 Urine Ketones 1+ (Negative) H 10/23/23 23:10 Urine Blood Neg (Negative) 10/23/23 23:10 Urine Nitrate Negative (Negative) 10/23/23 23:10 Urine Bilirubin 1+ (Negative) H 10/23/23 23:10 Urine Urobilinogen Neg mg/dL (Negative) 10/23/23 23:10 Ur Leukocyte Esterase Negative (Negative) 10/23/23 23:10 Urine RBC None /hpf (0-2) 10/23/23 23:10 Urine WBC None /hpf (0-5) 10/23/23 23:10 Ur Squamous Epith Cells None /hpf (0-5) 10/23/23 23:10 Amorphous Sediment Not Reportable 10/23/23 23:10 Urine Bacteria Trace /hpf (NONE) 10/23/23 23:10 Urine Opiates Screen Negative ng/mL (Negative) 10/23/23 23:10 Ur Barbiturates Screen Negative ng/mL (Negative) 10/23/23 23:10 Ur Phencyclidine Scrn Negative ng/mL (Negative) 10/23/23 23:10 Ur Amphetamines Screen Negative ng/mL (Negative) 10/23/23 23:10 U Benzodiazepines Scrn Positive ng/mL (Negative) H 10/23/23 23:10 Urine Cocaine Screen Negative ng/mL (Negative) 10/23/23 23:10 U Marijuana (THC) Screen Negative ng/mL (Negative) 10/23/23 23:10 All radiology interpretation(s) finalized by discharge Discharge Plan Discharge Patient Disposition: Admitted As Inpatient Clinical Impression: Hypoglycemia Condition: Stable Prescriptions: No Action gabapentin [Neurontin] 300 mg capsule 300 mg PO BID atorvastatin 40 mg tablet 40 mg PO BEDTIME metformin 500 mg tablet extended release 24hr 1,000 mg PO DAILY Mounjaro 2.5 mg/0.5 mL pen injector 2.5 mg SUBCUT Q7D 30 Days Qty: 2.5 0RF Rx Instructions: 2.5mg weekly for 1month; 5mg weekly for 1month; 7.5mg weekly and continue aripiprazole 30 mg tablet 15 mg PO BID 30 Days Qty: 30 3RF divalproex 500 mg tablet extended release 24 hr 2,000 mg PO BEDTIME 30 Days Qty: 120 4RF venlafaxine 75 mg capsule,extended release 24hr 225 mg PO DAILY 30 Days Qty: 90 3RF ciclopirox 0.77 % cream 1 applic topical DAILY 28 Days Qty: 90 0RF metoprolol succinate 25 mg tablet extended release 24 hr 25 mg PO DAILY Qty: 90 0RF olanzapine 5 mg tablet,disintegrating 5 mg PO DAILY Qty: 30 2RF Rx Instructions: Take one tablet daily at 5 PM diazepam 5 mg tablet 5 mg PO .COMPLEX Qty: 60 1RF Rx Instructions: Take one tablet by mouth every morning, and one tablet daily at 1 PM, if needed cephalexin 500 mg capsule 500 mg PO BID Qty: 14 0RF insulin lispro [Humalog KwikPen Insulin] 100 unit/mL insulin pen See Rx Instructions .ROUTE .COMPLEX Qty: 15 0RF Dose Instruction: INJECT FOUR UNITS SUBCUTANEOUSLY EVERY 6 HOURS NEEDED FOR BG ABOVE 400 Rx Instructions: INJECT FOUR UNITS SUBCUTANEOUSLY EVERY 6 HOURS NEEDED FOR BG ABOVE 400 Mounjaro 7.5 mg/0.5 mL pen injector 7.5 mg SUBCUT Q7D 30 Days Qty: 2.5 0RF Lantus Solostar U-100 Insulin 100 unit/mL (3 mL) insulin pen 50 unit SUBCUT BEDTIME ferrous sulfate [iron] 325 mg (65 mg iron) Tablet 325 mg PO DAILY bismuth subsalicylate [Stomach Relief] 262 mg/15 mL suspension See Rx Instructions .ROUTE .COMPLEX Rx Instructions: 1 mL PO NEEDED irbesartan 150 mg tablet 150 mg PO DAILY Referrals: Blair Cheatham MD [Primary Care Provider] - Coding Level of Care Code ED Weatherization Coordinator for Dasha Nix
--- NOTE | 2023-10-23 22:22 | CTR_ITS ---
PROCEDURE INFORMATION: Exam: CT Head Without Contrast Exam date and time: 10/23/2023 10:33 PM Age: 43 years old Clinical indication: Injury or trauma; Fall; Blunt trauma (contusions or hematomas); With loss of consciousness; Not specified; Patient HX: Syncope; Additional info: Fall with head injury and taking eliquis TECHNIQUE: Imaging protocol: Computed tomography of the head without contrast. Radiation optimization: All CT scans at this facility use at least one of these dose optimization techniques: automated exposure control; mA and/or kV adjustment per patient size (includes targeted exams where dose is matched to clinical indication); or iterative reconstruction. REPORTING DATA: Count of CT and Cardiac NM exams in prior 12 months: This patient has received 11 known CTs and 0 known cardiac nuclear medicine studies in the 12 months prior to the current study. COMPARISON: CT head wo con* [id number] 08/24/2023 11:18 PM RADIATION DOSE METRICS: Total DLP (mGy-cm): 1209.58 FINDINGS: Brain: Normal. No hemorrhage. Unremarkable white matter. No mass effect. Cerebral ventricles: No ventriculomegaly. Paranasal sinuses: Visualized sinuses are unremarkable. No fluid levels. Mastoid air cells: Visualized mastoid air cells are well aerated. Bones/joints: Unremarkable. No acute fracture. Soft tissues: Unremarkable. CT/CT head wo con* [id number] IMPRESSION: No acute intracranial abnormality.
--- NOTE | 2023-10-23 22:22 | ECG_ITS ---
[facility] Test Date: 2023-10-23 Pat Name: Zaire Nassar Department: Room: Gender: Male Health Physics Technician: : 1980 Requested By: Marc Connelly Order Number: [id number] Russell MD: Migdalia Chavez M.D. Measurements Intervals [place] Rate: 116 P: 38 [place]: 192 QRS: 62 QRSD: 105 T: 33 QT: 303 QTc: 422 Interpretive Statements SINUS TACHYCARDIA POSSIBLE ANTERIOR MYOCARDIAL INFARCTION , OF INDETERMINATE AGE [30 ms Q WAVE IN V3/V4, OR R < 0.2 mV IN V4] Compared to ECG 10/06/2023 23:13:14 Indeterminate axis no longer present Myocardial infarct finding still present Electronically Signed On 10-23-2023 23:55:50 COMMUNITY SERVICE OFFICER by Migdalia Chavez M.D. [id number]
--- NOTE | 2023-10-23 22:22 | XRR_ITS ---
PROCEDURE INFORMATION: Exam: XR Chest Exam date and time: 10/23/2023 10:30 PM Age: 43 years old Clinical indication: Other: Syncope TECHNIQUE: Imaging protocol: Radiologic exam of the chest. Views: 2 views. COMPARISON: CR (CHEST, ) 10/14/2023 8:00 PM FINDINGS: Lungs: Visualized portions of the lungs are clear. Pleural spaces: Unremarkable. No pleural effusion. No pneumothorax. Heart/Mediastinum: Heart is within normal limits of size. Bones/joints: There are degenerative changes in the thoracic spine. XR/XR chest 2V* [id number] IMPRESSION: No acute infiltrate.
[2023-10-23 22:44] LABS: Glucose Point of Care 84 mg/dL (70-110)
[2023-10-23] MEDS: sodium chloride 0.9% 1,000 ML 999 ML IV (23:04)
[2023-10-23 23:07] VITALS: BP 144/85; PULSE 126; O2SAT 97
[2023-10-23] MEDS: dextrose 5%-sod chloride 0.9% 1,000 ML 75 ML IV (23:17)
[2023-10-23 23:25] LABS: Glucose Point of Care 85 mg/dL (70-110)
[2023-10-23 23:30] LABS: Basophils % 0.3 %; Eosinophils % 0.4 %; Hematocrit 51.9 % (37-53); Lymphocytes # 2.5 10^3/uL (0.8-4.8); Lymphocytes % 24.3 %; Mean Corpuscular HGB Conc 34.3 g/dL (30-55); Mean Corpuscular Volume 87.5 fl (82-101); Mean Platelet Volume 10.5 fL (7.4-10.4); Monocytes # 0.7 10^3/uL (0.2-0.9); Monocytes % 6.8 %; Neutrophils # 6.82 10^3/uL (1.8-7.7); Neutrophils % 67.5 %; Nucleated Red Blood Cells % 0 %; Platelet Count 247 10^3/cmm (157-399); Red Blood Count 5.93 10^6/uL (3.85-5.65); Red Cell Distribution Width 13.9 % (12.1-15.1)
[2023-10-23 23:39] LABS: Troponin(5th) Baseline 8 ng/L (0-15)
[2023-10-23 23:41] LABS: Alanine Aminotransferase 24 U/L (0-41); Albumin Level 4.5 g/dL (3.5-5.2); Alkaline Phosphatase 80 U/L (40-130); Aspartate Amino Transferase 12 U/L (0-40); Blood Urea Nitrogen 16 mg/dL (6-20); Calcium 9.6 mg/dL (8.5-10.5); Carbon Dioxide 25 mmol/L (22-29); Chloride 98 mmol/L (98-107); Globulin 2.3 g/dL (1.3-4.6); Glucose 96 mg/dL (65-115); Osmolality Calculated 285 mOsm/kg (285-295); Sodium 137 mmol/L (136-145); Total Bilirubin 0.2 mg/dL (0.15-1.2); Total Protein 6.8 g/dL (6.6-8.7)
[2023-10-23 23:43] LABS: Amphetamines Screen Urine Negative (Negative); Barbiturates Screen Urine Negative (Negative); Benzodiazepines Screen Urine Positive (Negative); Cocaine Screen Urine Negative (Negative); Opiate Screen Urine Negative (Negative); PCP Screen Urine Negative (Negative); THC Screen Urine Negative (Negative)
[2023-10-23 23:44] LABS: Add Urine Microscopic? YES; Bacteria Urine TRACE /hpf; Bilirubin Urine 1+ (Negative); Blood Urine Neg (Negative); Glucose Urine UA 4+ (Normal); Ketones Urine 1+ (Negative); Leukocyte Esterase Urine Negative (Negative); Nitrate Urine Negative (Negative); Protein Urine 1+ (Negative); Urine Appearance Clear (CLEAR); Urine Color Yellow (Yellow); Urobilinogen Urine Neg (Negative); pH Urine 6 (5-7)
[2023-10-23 23:45] LABS: Add Urine Culture? No
[2023-10-24] VITALS (34 sets, daily range): BP systolic 99–140; BP diastolic 42–90; PULSE 81–115; RESP 16–20; TEMP 36.6–37; O2SAT 90–98; BMI 38.4
--- NOTE | 2023-10-24 00:22 | ECG_ITS ---
[facility] Test Date: 2023-10-24 Pat Name: Zaire Nassar Department: Room: Gender: Male Stitch Burnisher: : 1980 Requested By: Marc Connelly Order Number: [id number] Russell MD: Migdalia Chavez M.D. Measurements Intervals [place] Rate: 100 P: 39 [place]: 184 QRS: 24 QRSD: 112 T: 50 QT: 331 QTc: 428 Interpretive Statements SINUS TACHYCARDIA MODERATE INTRAVENTRICULAR CONDUCTION DELAY [110+ ms QRS DURATION] ABNORMAL RHYTHM ECG Compared to ECG 10/23/2023 23:04:01 Intraventricular conduction delay now present Myocardial infarct finding no longer present Electronically Signed On 10-24-2023 11:06:33 PSYCHIATRIC ATTENDANT by Migdalia Chavez M.D. [id number]
[2023-10-24 00:27] LABS: Glucose Point of Care 78 mg/dL (70-110)
--- NOTE | 2023-10-24 00:39 | PC.NURSE ---
Caregiver at bedside informed this nurse that patient was threatening to remove IV and leave. This nurse spoke with Diane at [employer], who informed this nurse that the guardian of the patient said that it was okay to admit patient if medically necessary. Patient instructed by this nurse and [facility] staff to keep IV in at this time.
--- NOTE | 2023-10-24 01:09 | P.HP_ITS ---
Providers/Chief Complaint 2 Primary Care Provider: Blair Cheatham MD Chief Complaint: Blood Sugar\Below 60 History of Present Illness Zaire Nassar is a 43 year old male with history of insulin-dependent diabetes history of hypoglycemia follows up with Dr. Roman, patient is on Mounjaro, insulin, metformin, presented today for syncopal event. Patient had a syncopal event at home, EMS was called his blood sugar was low he was given orange juice, peanut butter which improved his blood sugar, patient has syncopal event for about 5 minutes, after EMS left he had another episode of low blood sugar that prompted visit to the ER in the ER his blood sugar on arrival was normal however it is gradually trending down he was put on D5 without significant improvement I have requested ER to give him glucagon I will give him Decadron as well and switch to D10 at 100 mL/h Dr. Roman noticed were reviewed he has history of hypoglycemia Previously his Lantus dose was decreased from 50 units to 25 units he was asked to stop taking sliding scale At that time he was on Victoza currently he is on Mounjaro Patient endorsed suicidal thoughts patient is stating that for last few months he has had suicidal thoughts and made some plans, (we are not sure if this hypoglycemia is related to his underlying depression with suicidal thoughts with attempt to harm himself) Review of Systems 2 Const: Denies: fever(s) Eyes: Denies: change in vision ENMT: Denies: throat pain Card: Denies: chest pain or swelling of feet/ankles Resp: Denies: dyspnea GI: Denies: abdominal pain : Denies: flank pain Skin/Breast: Denies: rash Neuro: Denies: headache(s) Psych: Denies: anxiety Medications/Allergies Home Medications Medication Instructions Recorded Confirmed Last Taken Type atorvastatin 40 mg tablet 40 mg PO BEDTIME 10/11/22 10/11/23 04/03/23 History gabapentin 300 mg capsule 300 mg PO BID 10/11/22 10/11/23 04/03/23 History (Neurontin) metformin 500 mg tablet,extended 1,000 mg PO DAILY 10/11/22 10/11/23 04/03/23 History release 24hr (osmotic) bismuth subsalicylate 262 mg/15 mL See Rx Instructions .Route .COMPLEX 03/16/23 10/11/23 Unknown History oral suspension (Stomach Relief) ferrous sulfate 325 mg (65 mg 325 mg PO DAILY 03/16/23 10/11/23 04/03/23 History iron) tablet (iron) irbesartan 150 mg tablet 150 mg PO DAILY 03/16/23 10/11/23 04/03/23 History insulin glargine 100 unit/mL (3 50 unit SUBCUT BEDTIME 04/11/23 10/11/23 Unknown History mL) subcutaneous pen (Lantus Solostar U-100 Insulin) tirzepatide 2.5 mg/0.5 mL 2.5 mg (0.5 mL) SUBCUT Q7D 30 days 04/24/23 10/11/23 Unknown Rx subcutaneous pen injector #2.5 mL (Mounjaro) insulin lispro 100 unit/mL See Rx Instructions .Route 07/20/23 10/11/23 Unknown Rx subcutaneous pen (Humalog KwikPen .COMPLEX #15 mL (U-100) Insulin) aripiprazole 30 mg tablet 15 mg (1/2 x 30 mg) PO BID 30 days 07/31/23 10/11/23 Unknown Rx #30 tabs divalproex 500 mg tablet,extended 2,000 mg (4 x 500 mg) PO BEDTIME 07/31/23 10/11/23 Unknown Rx release 24 hr 30 days #120 tabs venlafaxine 75 mg capsule,extended 225 mg (3 x 75 mg) PO DAILY 30 07/31/23 10/11/23 Unknown Rx release 24 hr days #90 caps metoprolol succinate 25 mg 25 mg PO DAILY #90 tabs 08/02/23 10/11/23 Unknown Rx tablet,extended release 24 hr tirzepatide 7.5 mg/0.5 mL 7.5 mg (0.5 mL) SUBCUT Q7D 30 days 08/08/23 10/11/23 Unknown Rx subcutaneous pen injector #2.5 mL (Mounjaro) cephalexin 500 mg capsule 500 mg PO BID #14 caps 09/01/23 10/11/23 Unknown Rx olanzapine 5 mg disintegrating 5 mg PO DAILY #30 tabs 10/02/23 10/11/23 Unknown Rx tablet diazepam 5 mg tablet 5 mg PO .COMPLEX anxiety #60 tabs 10/03/23 10/11/23 Unknown Rx ciclopirox 0.77 % topical cream 1 applic topical DAILY 4 weeks #90 10/11/23 10/11/23 Unknown Rx grams Allergies Allergy/AdvReac Type Severity Reaction Status Date / Time No Known Allergies Allergy Verified 10/11/23 10:01 PFSH Acute 2 PFSH: Medical History Coronary-myocardial bridge Peripheral neuropathy Type 2 diabetes mellitus Hyperlipidemia Hypertension Pulmonary embolism Other reactions to severe stress Bipolar 1 disorder Most recent episode depressed Fracture of [facility] Surgical History History of appendectomy Social History Smoking and tobacco/nicotine status: current every day tobacco/nicotine user e- cigarettes Alcohol intake: current Alcohol intake frequency: few times a month Substance/Drug Use: never Marital status: Single Vitals/I&O/Wt Last Vital Signs Temp 97.9 F 10/23/23 21:56 Pulse 126 H 10/23/23 23:07 Resp 20 H 10/23/23 21:56 BP 144/85 10/23/23 23:07 Pulse Ox 97 10/23/23 23:07 O2 Del Method Room Air 10/23/23 23:07 10/23/23 10/23/23 10/24/23 14:59 22:59 06:59 Intake Total 1000 / 1000 Balance 1000 / 1000 Weight last 48 hrs Weight 149.232 kg Physical Exam 2 Narrative: Nonfocal neuroexam GCS 15 Cognitive impairment S1, S2 Abdomen soft Doing well on room air No audible stridor or wheezing Endorsing suicidal thoughts Data 10/23/23 22:58 10/23/23 22:58 A&P Assessment and plan (1) Depression: (2) Hypertension: (3) Type 2 diabetes mellitus: (4) Hypoglycemia: (5) Mild intellectual disability: (6) Syncope and collapse: (7) Suicidal thoughts: Plan Syncope related to hypoglycemia Stop insulin Stop Mounjaro (increase the risk of hypoglycemia when used with insulin) Will put him on D10, will give him Decadron, given glucagon Check A1c level History of thromboembolic phenomenon continue Eliquis Cardiac diet Previous records reviewed, history of hypoglycemia when Lantus was decreased from 50 to 25 Self interpretation EKG showing sinus tachycardia Requested D-dimer Previous echo showed grade 1 diastolic dysfunction with preserved ejection fraction Suicidal thoughts: Patient will need psychiatric evaluation Patient is on venlafaxine, olanzapine, Full code Cardiac diet DVT prophylaxis sufficed with Eliquis Blood sugar was checked multiple times overnight blood sugar 123 mg/dL at this moment Considering persistent hyperglycemia and suicidal thoughts patient will need inpatient admission Attestations 2 Medical Necessity Statement*: Will need more than 2 midnights for evaluation of suicidal thoughts, hypoglycemia, monitor in ICU Coding Level of Care Code Critical Care >/= 30 minutes Critical care time (in minutes): 65 The high probability of a clinically significant, sudden or life threatening deterioration, as referenced in this documentation, required my full and direct attention, intervention and personal management. The critical care time shown is in addition to time spent performing any reported separately billable procedures and includes the following: [x] Data and vital sign review and interpretation [x ] Patient assessment, examination and intervention [x] Medication orders and management [x] Patient/Family updates as able [x] Care Coordination and Documentation. Diagnoses Depression F32.A Hypertension I10 Type 2 diabetes mellitus E11.9 Hypoglycemia E16.2 Mild intellectual disability F70 Syncope and collapse R55 Suicidal thoughts R45.851
[2023-10-24 01:33] LABS: D Dimer <= 0.27 ug/mLFEU (0-0.59)
[2023-10-24] MEDS: dextrose 10% 1,000 ML 100 ML IV (01:34)
[2023-10-24] MEDS: dexamethasone 10 mg/mL INJ IVP (01:35)
[2023-10-24 01:41] LABS: Estmated Average Glucose 249; Hemoglobin A1C 10.3 % (4.0-6.0)
[2023-10-24 01:49] LABS: Cortisol Random 5.88 ug/dL (2.47-19.5)
[2023-10-24 02:38] LABS: Glucose Point of Care 115 mg/dL (70-110)
[2023-10-24] MEDS: diphenoxylate/atropine Tablet 1 TAB PO (03:03)
--- NOTE | 2023-10-24 04:10 | PC.NURSE ---
Patient saturating in high 80s. Placed on 2L NC at this time to maintain saturations above 90.
--- NOTE | 2023-10-24 04:31 | ECG_ITS ---
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 Measurements Intervals [place] Rate: 100 P: 29 [place]: 193 QRS: 22 QRSD: 116 T: 47 QT: 337 QTc: 436 Interpretive Statements SINUS TACHYCARDIA MODERATE INTRAVENTRICULAR CONDUCTION DELAY [110+ ms QRS DURATION] ABNORMAL RHYTHM ECG Compared to ECG 10/24/2023 00:20:18 No significant changes Electronically Signed On 10-24-2023 11:06:10 ARMORED CAR GUARD AND DRIVER by Migdalia Chavez M.D. [id number]
[2023-10-24 04:41] LABS: Glucose Point of Care 82 mg/dL (70-110)
[2023-10-24 06:00] LABS: Thyroid Stimulating Hormone 2.35 uIU/mL (0.27-4.20)
--- NOTE | 2023-10-24 06:05 | PC.NURSE ---
Pt arrived to ICU with staff member from [facility]. Staff member was unable to provide much info medically and stated that produce service team member from [facility] would be here around 8 AM.
[2023-10-24 06:07] LABS: Glucose Point of Care 103 mg/dL (70-110)
--- NOTE | 2023-10-24 07:56 | PC.NURSE ---
Heart rhythm converted to sinus rhythm at 0615.
[2023-10-24 07:57] LABS: Glucose Point of Care 133 mg/dL (70-110)
--- NOTE | 2023-10-24 08:15 | PC.PHAR ---
PT HERE FROM [facility] MEDICATIONS VERIFIED USING MAR FROM FACILITY
[2023-10-24] MEDS: apixaban 5 mg Tablet PO ×2 (09:29→18:05)
[2023-10-24] MEDS: ARIPiprazole 30 mg Tablet 15 MG PO ×2 (09:30→18:04)
[2023-10-24] MEDS: losartan 50 mg Tablet PO (09:30)
[2023-10-24] MEDS: metoprolol succinate ER (24 HR) 25 mg Tablet PO (09:30)
[2023-10-24 10:58] LABS: Glucose Point of Care 200 mg/dL (70-110)
--- NOTE | 2023-10-24 11:04 | PC.NURSE ---
Report called to [facility]. Report given to OSVALDO Fernandez
--- NOTE | 2023-10-24 11:45 | PC.NURSE ---
Pt transferred to room 251-1 with all of his personal belongings including his careplan book.
[2023-10-24 16:33] LABS: Glucose Point of Care 182 mg/dL (70-110)
--- NOTE | 2023-10-24 19:27 | P.MISC_ITS ---
Miscellaneous Note Note: repeat bg 200 . stop d10 transfer to [facility] adjust insulin at [place] plan to send pt home tomorrow if sugars stable pt is not suicidal and has no plans of hurting himself. he is looking forward to seeing his mom on sunday and sunday for aba.
[2023-10-24 20:03] LABS: Glucose Point of Care 286 mg/dL (70-110)
[2023-10-24 20:28] LABS: Glucose Point of Care 123 mg/dL (70-110)
[2023-10-24] MEDS: divalproex ER 500 mg Tablet (24H) 2000 MG PO (20:40)
[2023-10-24] MEDS: LORazepam 0.5 mg Tablet PO (20:40)
[2023-10-24 21:29] LABS: Thyroid Stimulating Hormone 0.69 uIU/mL (0.27-4.20)
[2023-10-24] MEDS: insulin lispro 100 unit/1 mL SUBCUT (21:36)
[2023-10-24 22:33] LABS: Glucose Point of Care 260 mg/dL (70-110)
[2023-10-24 23:58] LABS: Glucose Point of Care 228 mg/dL (70-110)
[2023-10-25 03:33] LABS: Glucose Point of Care 183 mg/dL (70-110)
[2023-10-25 04:30] VITALS: BP 124/78; PULSE 106; RESP 16; TEMP 36.4; O2SAT 91
[2023-10-25 05:20] LABS: Alanine Aminotransferase 23 U/L (0-41); Albumin Level 3.8 g/dL (3.5-5.2); Alkaline Phosphatase 74 U/L (40-130); Anion Gap 16.1 (5-19); Aspartate Amino Transferase 12 U/L (0-40); Blood Urea Nitrogen 16 mg/dL (6-20); Calcium 8.8 mg/dL (8.5-10.5); Carbon Dioxide 26 mmol/L (22-29); Chloride 102 mmol/L (98-107); Globulin 2.3 g/dL (1.3-4.6); Glucose 202 mg/dL (65-115); Osmolality Calculated 297 mOsm/kg (285-295); Potassium 4.1 mmol/L (3.5-5.1); Sodium 140 mmol/L (136-145); Total Bilirubin 0.2 mg/dL (0.15-1.2); Total Protein 6.1 g/dL (6.6-8.7)
[2023-10-25 05:36] LABS: Glucose Point of Care 186 mg/dL (70-110)
[2023-10-25 07:35] VITALS: BP 114/67; PULSE 106; RESP 16; TEMP 36.7; O2SAT 90
[2023-10-25] MEDS: venlafaxine ER (24HR) 75 mg Capsule 225 MG PO (08:54)
[2023-10-25] MEDS: metformin XR 500 MG Tablet 1000 MG PO (08:55)
[2023-10-25] MEDS: metoprolol succinate ER (24 HR) 25 mg Tablet PO (08:55)
[2023-10-25 08:56] VITALS: BP 114/67
[2023-10-25] MEDS: gabapentin 300 mg Capsule PO (08:56)
[2023-10-25] MEDS: aspirin 81 mg EC Tablet PO (08:56)
[2023-10-25] MEDS: apixaban 5 mg Tablet PO (08:56)
[2023-10-25] MEDS: losartan 50 mg Tablet PO (08:56)
[2023-10-25] MEDS: ARIPiprazole 30 mg Tablet 15 MG PO (08:56)
[2023-10-25 09:14] LABS: Glucose Point of Care 208 mg/dL (70-110)
--- NOTE | 2023-10-25 10:23 | PC.CHAP ---
Pastoral Care Encounter/Spiritual Assessment Type of Contact [] Declined gaming commissioner visit [] Patient/Family/Request visit [] Outpatient visit [] Follow-up visit [] Physician referral [] Code/Alert [x] Routine visit [] Staff referral [] Actively dying [] Patient sleeping [] Family support [] [] Out of room [] Palliative care [] [x] Receiving care in room [] Pre-surgical visit [] Trauma [] Long length of stay [] ICU visit [] Other: Relational/Emotional Strength [x] Patient feels connected with others/family/visitors/staff [] Distress [] Loneliness/isolation [] Abandonment Spirituality of Patient [x] Person of [place] [] Attends Episcopalian of their [place] [x] Believes in Prayer [] Reads Bible or Mu-Ism materials [] There are Spiritual issues to be addressed Manager Security Interventions [x] Prayer [x] Active listening [x] Non-anxious presence [x] Spiritual/emotional support [] Crisis/trauma care [x] Spiritual counseling [] Bereavement support [] Provided bereavement packet [] Provided Bible/devotional materials [] Provided toy/stuffed animal, coloring book to patient or family member [] Provided Communion [] Anointing/[place] [] Salvation [x] Completed spiritual assessment [] Other: Impact on Illness or Injury [] Angry [] Fearful [] Anxious [] Often cries [] Exhaustion [] Unable to work [] Unable to attend islam [] Unable to walk/stand [] Unable to read [] Unable to drive [] Unable to eat/drink [] Unable to sleep [] Unable to be with family [] Patient intubated [] Other: Summary low blood surger taking anta bodies has good attituse well go home Time spent with patient 10 mins
[2023-10-25 11:10] LABS: Glucose Point of Care 231 mg/dL (70-110)
[2023-10-25 11:45] VITALS: BP 115/76; PULSE 121; RESP 18; TEMP 36.3; O2SAT 91
--- NOTE | 2023-10-25 12:33 | P.DS_ITS ---
Discharge Providers Date of Admission: 10/24/23 01:38 Date of Discharge: October 25, 2023 Attending Provider at Admission: Belkys Lazo MD Attending Provider at Discharge: Beth Morales MD Primary Care Provider: Blair Cheatham MD Diagnoses at Discharge Discharge Diagnosis (1) Depression: Status: Acute (2) Hypertension: Status: Acute (3) Type 2 diabetes mellitus: Status: Acute (4) Hypoglycemia: Status: Resolved (5) Mild intellectual disability: Status: Acute (6) Syncope and collapse: Status: Resolved (7) Suicidal thoughts: Status: Resolved Reason for Visit Reason for Visit: Blood Sugar\Below 60 Hospital Course Hospital Course Presented with hypoglycemia. Remained on a D10 drip during hospital stay. Recent few months Mounjaro was added to. At discharge stopped his long-acting insulin and sent him home to follow-up with endocrinology as an outpatient. Discussed with his policy issue clerk over the phone prior to discharge and she agreed with the above plan. Patient will follow-up outpatient. He is not suicidal and looking forward to having [place] with his mom over the weekend. Physical Exam Narrative: Nonfocal neuroexam GCS 15 Cognitive impairment S1, S2 Abdomen soft Doing well on room air No audible stridor or wheezing Endorsing suicidal thoughts Discharge Data Studies Completed and Pending Completed Studies During Hospitalization Category Date Time Status CT head wo con* [id number] Stat Cat Scan 10/23/23 22:22 Completed XR chest 2V* [id number] Stat Exams 10/23/23 22:22 Completed Pending at discharge Category Date Time Status C-Peptide Stat Lab 10/25/23 12:28 Ordered GAD65 IA-2 Insulin AB Routine Lab 10/25/23 12:28 Ordered Radiology Impressions Chest X-Ray 10/23/23 22:22 IMPRESSION: No acute infiltrate. Head CT 10/23/23 22:22 IMPRESSION: No acute intracranial abnormality. Laboratory Results WBC 10.10 10^3/uL (3.29-11.43) 10/23/23 22:58 RBC 5.93 10^6/uL (3.85-5.65) H 10/23/23 22:58 Hgb 17.80 g/dL (11.27-16.99) H 10/23/23 22:58 Hct 51.9 % (37-53) 10/23/23 22:58 MCV 87.5 fl (82-101) 10/23/23 22:58 MCH 30.0 pg (27-33) 10/23/23 22:58 MCHC 34.3 g/dL (30-55) 10/23/23 22:58 RDW 13.9 % (12.1-15.1) 10/23/23 22:58 Plt Count 247 10^3/cmm (157-399) 10/23/23 22:58 MPV 10.5 fL (7.4-10.4) H 10/23/23 22:58 Neut % (Auto) 67.5 % 10/23/23 22:58 Lymph % (Auto) 24.3 % 10/23/23 22:58 [place] % (Auto) 6.8 % 10/23/23 22:58 Eos % (Auto) 0.4 % 10/23/23 22:58 Baso % (Auto) 0.3 % 10/23/23 22:58 Neut # (Auto) 6.82 10^3/uL (1.8-7.7) 10/23/23 22:58 Lymph # (Auto) 2.5 10^3/uL (0.8-4.8) 10/23/23 22:58 [place] # (Auto) 0.7 10^3/uL (0.2-0.9) 10/23/23 22:58 Eos # (Auto) 0.0 10^3/uL (0.0-0.8) 10/23/23 22:58 Baso # (Auto) 0.0 10^3/uL (0.0-0.1) 10/23/23 22:58 Nucleated RBC % (auto) 0 % 10/23/23 22:58 Nucleated RBCs # 0.0 /100WBC 10/23/23 22:58 D-Dimer <= 0.27 ug/mLFEU (0-0.59) 10/23/23 23:58 Sodium 140 mmol/L (136-145) 10/25/23 04:28 Potassium 4.1 mmol/L (3.5-5.1) 10/25/23 04:28 Chloride 102 mmol/L (98-107) 10/25/23 04:28 Carbon Dioxide 26 mmol/L (22-29) 10/25/23 04:28 Anion Gap 16.1 (5-19) 10/25/23 04:28 BUN 16 mg/dL (6-20) 10/25/23 04:28 Creatinine 0.8 mg/dL (0.7-1.2) 10/25/23 04:28 GFR Calculation 105.0 mL/min (90-130) 10/25/23 04:28 Glucose 202 mg/dL (65-115) H 10/25/23 04:28 POC Glucose 231 mg/dL (70-110) H 10/25/23 11:01 Estimat Average Glucose 249 10/23/23 23:58 Hemoglobin A1c 10.3 % (4.0-6.0) H 10/23/23 23:58 Calculated Osmolality 297 mOsm/kg (285-295) H 10/25/23 04:28 Calcium 8.8 mg/dL (8.5-10.5) 10/25/23 04:28 Magnesium 2.0 mg/dL (1.7-2.3) 10/25/23 04:28 Total Bilirubin 0.2 mg/dL (0.15-1.2) 10/25/23 04:28 AST 12 U/L (0-40) 10/25/23 04:28 ALT 23 U/L (0-41) 10/25/23 04:28 Alkaline Phosphatase 74 U/L (40-130) 10/25/23 04:28 Troponin T Baseline 8 ng/L (0-15) 10/23/23 22:58 Troponin T 120 Minute 6.60 ng/L (0-15) 10/24/23 00:53 Delta Troponin T -1.40 ABS# (0-10) L 10/24/23 00:53 Total Protein 6.1 g/dL (6.6-8.7) L 10/25/23 04:28 Albumin 3.8 g/dL (3.5-5.2) 10/25/23 04:28 Globulin 2.3 g/dL (1.3-4.6) 10/25/23 04:28 TSH 0.69 uIU/mL (0.27-4.20) 10/24/23 20:28 Random Cortisol 5.88 ug/dL (2.47-19.5) 10/23/23 23:58 Urine Color Yellow (Yellow) 10/23/23 23:10 Urine Appearance Clear (CLEAR) 10/23/23 23:10 Urine pH 6 (5-7) 10/23/23 23:10 Ur Specific [place] 1.010 (1.005-1.030) 10/23/23 23:10 Urine Protein 1+ (Negative) H 10/23/23 23:10 Urine Glucose (UA) 4+ (Normal) H 10/23/23 23:10 Urine Ketones 1+ (Negative) H 10/23/23 23:10 Urine Blood Neg (Negative) 10/23/23 23:10 Urine Nitrate Negative (Negative) 10/23/23 23:10 Urine Bilirubin 1+ (Negative) H 10/23/23 23:10 Urine Urobilinogen Neg mg/dL (Negative) 10/23/23 23:10 Ur Leukocyte Esterase Negative (Negative) 10/23/23 23:10 Urine RBC None /hpf (0-2) 10/23/23 23:10 Urine WBC None /hpf (0-5) 10/23/23 23:10 Ur Squamous Epith Cells None /hpf (0-5) 10/23/23 23:10 Amorphous Sediment Not Reportable 10/23/23 23:10 Urine Bacteria Trace /hpf (NONE) 10/23/23 23:10 Urine Opiates Screen Negative ng/mL (Negative) 10/23/23 23:10 Ur Barbiturates Screen Negative ng/mL (Negative) 10/23/23 23:10 Ur Phencyclidine Scrn Negative ng/mL (Negative) 10/23/23 23:10 Ur Amphetamines Screen Negative ng/mL (Negative) 10/23/23 23:10 U Benzodiazepines Scrn Positive ng/mL (Negative) H 10/23/23 23:10 Urine Cocaine Screen Negative ng/mL (Negative) 10/23/23 23:10 U Marijuana (THC) Screen Negative ng/mL (Negative) 10/23/23 23:10 Vitals Last Vital Signs Temp 97.4 F L 10/25/23 11:45 Pulse 121 H 10/25/23 11:45 Resp 18 10/25/23 11:45 BP 115/76 10/25/23 11:45 Pulse Ox 91 10/25/23 11:45 O2 Del Method Room Air 10/25/23 11:45 O2 Flow Rate 2 10/24/23 04:05 Discharge Plan Discharge Patient Disposition: Home Condition: Stable Prescriptions: Continued gabapentin [Neurontin] 300 mg capsule 300 mg PO BID atorvastatin 40 mg tablet 40 mg PO BEDTIME metformin 500 mg tablet extended release 24hr 1,000 mg PO DAILY aripiprazole 30 mg tablet 15 mg PO BID 30 Days Qty: 30 3RF divalproex 500 mg tablet extended release 24 hr 2,000 mg PO BEDTIME 30 Days Qty: 120 4RF venlafaxine 75 mg capsule,extended release 24hr 225 mg PO DAILY 30 Days Qty: 90 3RF ciclopirox 0.77 % cream 1 applic topical DAILY 28 Days Qty: 90 0RF olanzapine 5 mg tablet,disintegrating 5 mg PO DAILY Qty: 30 2RF Rx Instructions: Take one tablet daily at 5 PM diazepam 5 mg tablet 5 mg PO .COMPLEX Qty: 60 1RF Rx Instructions: Take one tablet by mouth every morning, and one tablet daily at 1 PM, if needed promethazine-DM 6.25-15 mg/5 mL syrup 5 ml PO Q6H PRN (Reason: Cough) aspirin 81 mg tablet,delayed release (DR/EC) 81 mg PO DAILY Pain Reliever (acetaminophen) 500 mg tablet 1,000 mg PO Q6H PRN (Reason: Pain) albuterol sulfate 90 mcg/actuation HFA aerosol inhaler 2 puff INHALATION Q4H PRN (Reason: Shortness Of Breath Or Wheezing) cetirizine 10 mg Capsule 10 mg PO BEDTIME PRN (Reason: Allergy Symptoms) Eliquis 5 mg tablet 5 mg PO BID Jardiance 25 mg tablet 25 mg PO DAILY bismuth subsalicylate [Stomach Relief] 262 mg/15 mL suspension 262 mg PO Q4H PRN (Reason: Indigestion) irbesartan 150 mg tablet 150 mg PO DAILY Discontinued insulin glargine [Lantus Solostar U-100 Insulin] 100 unit/mL (3 mL) insulin pen 30 unit SUBCUT BEDTIME No Action Mounjaro 7.5 mg/0.5 mL pen injector See Rx Instructions .ROUTE .COMPLEX Qty: 2.5 0RF Dose Instruction: INJECT 7.5MG SUBCUTANEOUSLY EVERY 7 DAYS Rx Instructions: INJECT 7.5MG SUBCUTANEOUSLY EVERY 7 DAYS insulin lispro [Humalog KwikPen Insulin] 100 unit/mL insulin pen See Rx Instructions .ROUTE .COMPLEX Qty: 15 0RF Dose Instruction: INJECT FOUR UNITS SUBCUTANEOUSLY EVERY 6 HOURS NEEDED FOR BG ABOVE 400 Rx Instructions: INJECT FOUR UNITS SUBCUTANEOUSLY EVERY 6 HOURS NEEDED FOR BG ABOVE 400 metoprolol succinate 25 mg tablet extended release 24 hr 25 mg PO DAILY Qty: 90 0RF Discharge Orders: Discharge Order (Routine); Ordered 10/25/23 Ordered By: Beth Morales Referrals: Franci Roman MD [Physician] - 1 week (doc said to book him We have notified your physician's clinic of the need for a follow-up appointment to be scheduled. If you have not heard from them within the next 2 business days, please call them directly. ) Ramesh Vizcarra MD [Physician] - 10/31/23 8:30 am Discharge Diet: Cardiac and Diabetic Discharge Activity: Resume usual activity Patient Instructions: Hypoglycemia in a Person with Diabetes (DC), Hypoglycemia in a Person with Diabetes (GEN), What to Do if Your Blood Sugar is Low (DC), What to Do if Your Blood Sugar is Low (GEN), How to Check your Blood Sugar (DC), How to Check your Blood Sugar (GEN), Opioid Safety Discharge Attestations Time Spent in Discharge Care*: greater than 30 min Quality Metrics Clinical Quality Measures [ No reported AMI, CVA or VTE this stay] Coding Level of Care Code Acute Code for Chg Fwd Diagnoses Depression F32.A Hypertension I10 Type 2 diabetes mellitus E11.9 Hypoglycemia E16.2 Mild intellectual disability F70 Syncope and collapse R55 Suicidal thoughts R45.851
[2023-10-25 14:37] VITALS: BP 115/76; PULSE 121; RESP 18; TEMP 36.3; O2SAT 91
[2023-10-26 07:30] LABS: C-Peptide 3.73 ng/mL (0.80-3.85)
[2023-11-08 20:40] LABS: GAD 65 IA-2 Antibody <5.4 U/mL (<5.4); GAD Insulin Autoantibody <0.4 U/mL (<0.4); Glutamic Acid Decarboxylase 65 <5 IU/mL (<5)
== END 2023-10-25 13:35 | disposition home or self-care (01) | DRG 638 ==
LOC: ER 10-24 01:03 → ER IP 10-24 01:54 → ICU 10-24 09:50 → MEDSURG 10-25 10:31 → ICU 11-16 13:32 → MEDSURG 11-16 13:32
PROVIDERS: Admitting Provider Internal Medicine; Emergency Provider Physician Assistant; PCP Family Medicine; Visit Provider Internal Medicine
DX: E11.649 Type 2 diabetes mellitus with hypoglycemia without coma (principal); R45.851 Suicidal ideations; E11.42 Type 2 diabetes mellitus with diabetic polyneuropathy; E78.5 Hyperlipidemia, unspecified; I10 Essential (primary) hypertension; F31.9 Bipolar disorder, unspecified; F17.290 Nicotine dependence, other tobacco product, uncomplicated; F70 Mild intellectual disabilities; Z86.711 Personal history of pulmonary embolism; Z79.85 Long-term (current) use of injectable non-insulin antidiabetic drugs; Z79.84 Long term (current) use of oral hypoglycemic drugs; Z79.82 Long term (current) use of aspirin; Z79.01 Long term (current) use of anticoagulants; Z79.4 Long term (current) use of insulin
CPT/HCPCS: 36415; 36416; 70450; 71046; 80053; 80306; 81001; 82533; 82962; 83036; 83735; 84443; 84484; 84681; 85025; 85378; 86337; 86341; 93005; 96360; 96361; 96372; 99285; G0378; J1100; J1815; J7030; J7042

== ENCOUNTER 2023-10-27 04:04 | Emergency (ER) | payer MEDICARE, MEDICAID, SELFPAY ==
[2023-10-27 04:09] VITALS: BP 152/105; PULSE 107; RESP 16; TEMP 36.8; O2SAT 95
[2023-10-27 04:20] LABS: Glucose Point of Care 411 mg/dL (70-110)
[2023-10-27 04:25] LABS: Basophils % 0.5 %; Eosinophils # 0.1 10^3/uL (0.0-0.8); Eosinophils % 0.9 %; Hematocrit 48.8 % (37-53); Lymphocytes % 45.2 %; Mean Corpuscular HGB Conc 33.8 g/dL (30-55); Mean Corpuscular Hemoglobin 29.6 pg (27-33); Mean Corpuscular Volume 87.6 fl (82-101); Mean Platelet Volume 10.1 fL (7.4-10.4); Monocytes # 0.6 10^3/uL (0.2-0.9); Monocytes % 8.3 %; Neutrophils # 2.96 10^3/uL (1.8-7.7); Neutrophils % 44.6 %; Nucleated Red Blood Cells % 0 %; Platelet Count 189 10^3/cmm (157-399); Red Blood Count 5.57 10^6/uL (3.85-5.65); Red Cell Distribution Width 13.5 % (12.1-15.1); White Blood Count 6.62 10^3/uL (3.29-11.43)
--- NOTE | 2023-10-27 04:28 | W.ED.GENADLT ---
HPI - General Adult General: Chief complaint: General Medical Stated complaint: hyperglycemia Time Seen by Provider: 10/27/23 04:09 History of Present Illness: 43-year-old male well-known to the emergency department service. He presents with hyperglycemia. He was admitted to the hospital earlier in the week with hypoglycemic episodes. He was taken off his long-acting insulin during that hospitalization. He was noted to have a blood sugar in the 400s earlier in the evening. 15 units of his normal acting insulin were given at home with no improvement in his blood sugar. EMS was called. The patient has had diarrhea, several bouts yesterday. No vomiting. No blood in the stool. No fever. No belly pain. Associated symptoms: Deny chest pain, dyspnea, nausea, palpitations or vomiting Review of Systems Const: Denies: fever(s) ENMT: Denies: throat pain Card: Denies: chest pain or palpitations Resp: Denies: dyspnea, productive cough or non-productive cough GI: Reports: diarrhea; Denies: abdominal pain, nausea or vomiting PFS ED PFSH: Medical History Coronary-myocardial bridge Peripheral neuropathy Type 2 diabetes mellitus Hyperlipidemia Hypertension Pulmonary embolism Other reactions to severe stress Bipolar 1 disorder Most recent episode depressed Fracture of [facility] Psychiatric care Surgical History History of appendectomy Social History Smoking and tobacco/nicotine status: current every day tobacco/nicotine user e-cigarettes Alcohol intake: current Alcohol intake frequency: few times a month Substance/Drug Use: never Marital status: Single Physical Exam Const: COMMON NORMALS: no acute distress GENERAL APPEARANCE: cooperative; not ill appearing and not frail appearing HENMT: COMMON NORMALS: normocephalic, atraumatic and Normal external nose present HEAD & SCALP: normocephalic and atraumatic FACE & SINUS: normal facial exam and face symmetric NOSE: Normal external nose present Eye: COMMON NORMALS: Equal, round and reactive pupils present and EOMs intact bilaterally PUPIL: Yes Equal, round and reactive pupils present Neck/C-Spine: GENERAL: Yes trachea midline Chest: CHEST: Yes Symmetrical chest wall rise Resp: COMMON NORMALS: normal respiratory effort, No retractions, No use of accessory muscles and clear to auscultation bilaterally AUSCULTATION: clear to auscultation bilaterally Cardio: COMMON NORMALS: regular rate and regular rhythm RATE: regular rate RHYTHM: regular rhythm GI: COMMON NORMALS: Normal to inspection, nondistended, normoactive bowel sounds present Extremity: COMMON NORMALS: no pedal edema Neuro: MALINDA COMA SCALE: document GCS findings [place] coma scale eye opening: Spontaneous [place] coma scale verbal response: Orientated [place] coma scale motor response: Obey commands [place] coma scale total score: 15 SENSORY EXAM: Yes extremities (intact) Psych: COMMON NORMALS: speech normal SPEECH: Yes normal speech Skin: COMMON NORMALS: no rashes or lesions noted GENERAL SKIN EXAM: no rashes or lesions noted Course Vital Signs: Vital signs: Vital Signs Temperature 98.2 F 10/27/23 04:09 Pulse Rate 109 H 10/27/23 04:43 Respiratory Rate 18 10/27/23 05:35 Blood Pressure 152/105 10/27/23 04:09 Pulse Oximetry 93 10/27/23 05:35 Oxygen Delivery Me thod Room Air 10/27/23 04:43 [facility] - General Adult Medical Decision Making High blood sugar in a patient with fragile diabetes. He has had some diarrhea, no other symptoms. His vitals are otherwise stable. CBC is normal. Blood sugar is 433 serum. His bicarbonate is actually high. Sodium is 131. Blood sugar down to 204 after 13 units of IV insulin. His belly exam is benign, nontender. Will allow him discharge to follow-up as an outpatient. This is a patient he may benefit from constant blood sugar monitoring. Lab Data 10/27/23 04:17 10/27/23 04:17 Laboratory Results WBC 6.62 10^3/uL (3.29-11.43) 10/27/23 04:17 RBC 5.57 10^6/uL (3.85-5.65) 10/27/23 04:17 Hgb 16.50 g/dL (11.27-16.99) 10/27/23 04:17 Hct 48.8 % (37-53) 10/27/23 04:17 MCV 87.6 fl (82-101) 10/27/23 04:17 MCH 29.6 pg (27-33) 10/27/23 04:17 MCHC 33.8 g/dL (30-55) 10/27/23 04:17 RDW 13.5 % (12.1-15.1) 10/27/23 04:17 Plt Count 189 10^3/cmm (157-399) 10/27/23 04:17 MPV 10.1 fL (7.4-10.4) 10/27/23 04:17 Neut % (Auto) 44.6 % 10/27/23 04:17 Lymph % (Auto) 45.2 % 10/27/23 04:17 [place] % (Auto) 8.3 % 10/27/23 04:17 Eos % (Auto) 0.9 % 10/27/23 04:17 Baso % (Auto) 0.5 % 10/27/23 04:17 Neut # (Auto) 2.96 10^3/uL (1.8-7.7) 10/27/23 04:17 Lymph # (Auto) 3.0 10^3/uL (0.8-4.8) 10/27/23 04:17 [place] # (Auto) 0.6 10^3/uL (0.2-0.9) 10/27/23 04:17 Eos # (Auto) 0.1 10^3/uL (0.0-0.8) 10/27/23 04:17 Baso # (Auto) 0.0 10^3/uL (0.0-0.1) 10/27/23 04:17 Nucleated RBC % (auto) 0 % 10/27/23 04:17 Nucleated RBCs # 0.0 /100WBC 10/27/23 04:17 Sodium 131 mmol/L (136-145) L 10/27/23 04:17 Potassium 4.8 mmol/L (3.5-5.1) 10/27/23 04:17 Chloride 92 mmol/L (98-107) L 10/27/23 04:17 Carbon Dioxide 30 mmol/L (22-29) H 10/27/23 04:17 Anion Gap 13.8 (5-19) 10/27/23 04:17 BUN 21 mg/dL (6-20) H 10/27/23 04:17 Creatinine 0.9 mg/dL (0.7-1.2) 10/27/23 04:17 GFR Calculation 91.7 mL/min (90-130) 10/27/23 04:17 Glucose 433 mg/dL (65-115) H 10/27/23 04:17 POC Glucose 204 mg/dL (70-110) H 10/27/23 05:15 Calculated Osmolality 294 mOsm/kg (285-295) 10/27/23 04:17 Calcium 10.8 mg/dL (8.5-10.5) H 10/27/23 04:17 Magnesium 1.8 mg/dL (1.7-2.3) 10/27/23 04:17 Total Bilirubin 0.3 mg/dL (0.15-1.2) 10/27/23 04:17 AST 15 U/L (0-40) 10/27/23 04:17 ALT 26 U/L (0-41) 10/27/23 04:17 Alkaline Phosphatase 99 U/L (40-130) 10/27/23 04:17 Total Protein 6.8 g/dL (6.6-8.7) 10/27/23 04:17 Albumin 4.4 g/dL (3.5-5.2) 10/27/23 04:17 Globulin 2.4 g/dL (1.3-4.6) 10/27/23 04:17 Lipase 54 U/L (13-60) 10/27/23 04:17 Urine Color Light yellow (Yellow) 10/27/23 04:40 Urine Appearance Clear (CLEAR) 10/27/23 04:40 Urine pH 8 (5-7) H 10/27/23 04:40 Ur Specific [place] 1.010 (1.005-1.030) 10/27/23 04:40 Urine Protein Neg (Negative) 10/27/23 04:40 Urine Glucose (UA) 4+ (Normal) H 10/27/23 04:40 Urine Ketones Negative (Negative) 10/27/23 04:40 Urine Blood Neg (Negative) 10/27/23 04:40 Urine Nitrate Negative (Negative) 10/27/23 04:40 Urine Bilirubin Neg (Negative) 10/27/23 04:40 Prot Sulfosalicylic Acd Negative (Negative) 10/27/23 04:40 Urine Urobilinogen Neg mg/dL (Negative) 10/27/23 04:40 Ur Leukocyte Esterase Negative (Negative) 10/27/23 04:40 No radiology studies performed this visit Discharge Plan Discharge Patient Disposition: Home Clinical Impression: Type 2 diabetes mellitus, Acute hyperglycemia Condition: Stable Prescriptions: No Action gabapentin [Neurontin] 300 mg capsule 300 mg PO BID atorvastatin 40 mg tablet 40 mg PO BEDTIME metformin 500 mg tablet extended release 24hr 1,000 mg PO DAILY aripiprazole 30 mg tablet 15 mg PO BID 30 Days Qty: 30 3RF divalproex 500 mg tablet extended release 24 hr 2,000 mg PO BEDTIME 30 Days Qty: 120 4RF venlafaxine 75 mg capsule,extended release 24hr 225 mg PO DAILY 30 Days Qty: 90 3RF ciclopirox 0.77 % cream 1 applic topical DAILY 28 Days Qty: 90 0RF metoprolol succinate 25 mg tablet extended release 24 hr 25 mg PO DAILY Qty: 90 0RF olanzapine 5 mg tablet,disintegrating 5 mg PO DAILY Qty: 30 2RF Rx Instructions: Take one tablet daily at 5 PM diazepam 5 mg tablet 5 mg PO .COMPLEX Qty: 60 1RF Rx Instructions: Take one tablet by mouth every morning, and one tablet daily at 1 PM, if needed insulin lispro [Humalog KwikPen Insulin] 100 unit/mL insulin pen See Rx Instructions .ROUTE .COMPLEX Qty: 15 0RF Dose Instruction: INJECT FOUR UNITS SUBCUTANEOUSLY EVERY 6 HOURS NEEDED FOR BG ABOVE 400 Rx Instructions: INJECT FOUR UNITS SUBCUTANEOUSLY EVERY 6 HOURS NEEDED FOR BG ABOVE 400 Mounjaro 7.5 mg/0.5 mL pen injector 7.5 mg SUBCUT Q7D 30 Days Qty: 2.5 0RF Rx Instructions: ON SUNDAY promethazine-DM 6.25-15 mg/5 mL syrup 5 ml PO Q6H PRN (Reason: Cough) aspirin 81 mg tablet,delayed release (DR/EC) 81 mg PO DAILY Pain Reliever (acetaminophen) 500 mg tablet 1,000 mg PO Q6H PRN (Reason: Pain) albuterol sulfate 90 mcg/actuation HFA aerosol inhaler 2 puff INHALATION Q4H PRN (Reason: Shortness Of Breath Or Wheezing) cetirizine 10 mg Capsule 10 mg PO BEDTIME PRN (Reason: Allergy Symptoms) Eliquis 5 mg tablet 5 mg PO BID Jardiance 25 mg tablet 25 mg PO DAILY bismuth subsalicylate [Stomach Relief] 262 mg/15 mL suspension 262 mg PO Q4H PRN (Reason: Indigestion) irbesartan 150 mg tablet 150 mg PO DAILY Discharge Orders: Discharge ED (Routine); Ordered 10/27/23 Ordered By: Abdiel Garcia Referrals: Blair Cheatham MD [Primary Care Provider] - Patient Instructions: Diabetic Hyperglycemia (ED) Activity Restrictions/Additional Instructions: Check blood sugars often, particularly for the next 24 hours. Treat accordingly according to sliding scale with the lispro prescribed. Return for any continued problems. Coding Level of Care Code ED Blurb Writer for Dasha Nix
[2023-10-27] MEDS: insulin regular-human 100 units/1 mL 13 UNIT IVP (04:29)
[2023-10-27] MEDS: sodium chloride 0.9% 1,000 ML 999 ML IV (04:31)
[2023-10-27 04:43] VITALS: PULSE 109; RESP 20; O2SAT 93
[2023-10-27 04:44] LABS: Alanine Aminotransferase 26 U/L (0-41); Albumin Level 4.4 g/dL (3.5-5.2); Alkaline Phosphatase 99 U/L (40-130); Anion Gap 13.8 (5-19); Aspartate Amino Transferase 15 U/L (0-40); Blood Urea Nitrogen 21 mg/dL (6-20); Calcium 10.8 mg/dL (8.5-10.5); Carbon Dioxide 30 mmol/L (22-29); Chloride 92 mmol/L (98-107); Globulin 2.4 g/dL (1.3-4.6); Glomerular Filtration Rate 91.7 mL/min (90-130); Glucose 433 mg/dL (65-115); Lipase 54 U/L (13-60); Magnesium 1.8 mg/dL (1.7-2.3); Osmolality Calculated 294 mOsm/kg (285-295); Potassium 4.8 mmol/L (3.5-5.1); Sodium 131 mmol/L (136-145); Total Bilirubin 0.3 mg/dL (0.15-1.2); Total Protein 6.8 g/dL (6.6-8.7)
[2023-10-27 04:46] LABS: Add Urine Microscopic? NO; Charge for UA Resulting for Rev
[2023-10-27 04:48] LABS: Bilirubin Urine Neg (Negative); Blood Urine Neg (Negative); Glucose Urine UA 4+ (Normal); Ketones Urine Negative (Negative); Leukocyte Esterase Urine Negative (Negative); Nitrate Urine Negative (Negative); Protein Urine Neg (Negative); Sulfosalicylic Acid Urine Negative (Negative); Urine Appearance Clear (CLEAR); Urine Color Light yellow (Yellow); Urobilinogen Urine Neg (Negative); pH Urine 8 (5-7)
[2023-10-27 05:19] LABS: Glucose Point of Care 204 mg/dL (70-110)
[2023-10-27 05:35] VITALS: RESP 18; O2SAT 93
[2023-10-27 05:49] LABS: Glucose Point of Care 207 mg/dL (70-110)
== END 2023-10-27 05:46 | disposition home or self-care (01) ==
PROVIDERS: Emergency Provider Emergency Medicine; PCP Family Medicine
DX: E11.65 Type 2 diabetes mellitus with hyperglycemia (principal); Z79.84 Long term (current) use of oral hypoglycemic drugs; Z79.4 Long term (current) use of insulin; Z79.82 Long term (current) use of aspirin; Z79.01 Long term (current) use of anticoagulants; F17.290 Nicotine dependence, other tobacco product, uncomplicated; E11.42 Type 2 diabetes mellitus with diabetic polyneuropathy; E78.5 Hyperlipidemia, unspecified; I10 Essential (primary) hypertension
CPT/HCPCS: 36416; 80053; 81003; 82962; 83690; 83735; 85025; 96374; 99284; J1815; J7030

== ENCOUNTER 2023-10-29 02:22 | Emergency (ER) | payer MEDICARE, MEDICAID, SELFPAY ==
[2023-10-29 02:23] VITALS: BP 130/87; PULSE 112; RESP 20; TEMP 36.8; O2SAT 90
[2023-10-29 02:30] LABS: Glucose Point of Care 413 mg/dL (70-110)
[2023-10-29] MEDS: insulin regular-human 100 units/1 mL 13 UNIT IVP (02:55)
[2023-10-29] MEDS: sodium chloride 0.9% 1,000 ML 999 ML IV (02:55)
[2023-10-29 02:57] LABS: Basophils % 0.6 %; Eosinophils # 0.1 10^3/uL (0.0-0.8); Hematocrit 52.9 % (37-53); Lymphocytes # 3.2 10^3/uL (0.8-4.8); Lymphocytes % 46.9 %; Mean Corpuscular HGB Conc 34.2 g/dL (30-55); Mean Corpuscular Hemoglobin 29.4 pg (27-33); Mean Platelet Volume 10.7 fL (7.4-10.4); Monocytes # 0.5 10^3/uL (0.2-0.9); Monocytes % 7.1 %; Neutrophils # 2.96 10^3/uL (1.8-7.7); Neutrophils % 43.7 %; Nucleated Red Blood Cells % 0 %; Platelet Count 224 10^3/cmm (157-399); Red Blood Count 6.15 10^6/uL (3.85-5.65); Red Cell Distribution Width 13.5 % (12.1-15.1); White Blood Count 6.78 10^3/uL (3.29-11.43)
--- NOTE | 2023-10-29 03:05 | ED_ITS ---
HPI - Recheck/Abnormal Lab/Rx 2 General: Chief Complaint: Recheck/Abnormal Lab/Rx Stated Complaint: High Glucose Time Seen by Provider: 10/29/23 02:34 History of Present Illness: 43-year-old male patient who is an insul in-dependent diabetic. He has had problems of late with hypo and hyperglycemia. He was seen 2 nights ago with a significantly high blood sugar. Insulin had been given at his [facility], but without any improvement. He received IV insulin and fluid here with improvement. Tonight, his blood sugar was in the 400s, and 4 units of insulin was administered. This did not seem to improve his blood sugar, so EMS was called. [place] is experiencing some generalized weakness, tiredness. No vomiting. Review of Systems 2 Const: Denies: fever(s), chills or body aches Eyes: Denies: change in vision Card: Denies: chest pain or palpitations Resp: Denies: dyspnea, productive cough, non-productive cough or wheezing GI: Denies: abdominal pain, nausea, vomiting, diarrhea or hematochezia Skin/Breast: Denies: rash Neuro: Denies: headache(s), weakness in extremities, dizziness or confusion PFSH ED 2 PFSH: Medical History Coronary-myocardial bridge Peripheral neuropathy Type 2 diabetes mellitus Hyperlipidemia Hypertension Pulmonary embolism Other reactions to severe stress Bipolar 1 disorder Most recent episode depressed Fracture of [facility] Psychiatric care Surgical History History of appendectomy Social History Smoking and tobacco/nicotine status: current every day tobacco/nicotine user e- cigarettes Alcohol intake: current Alcohol intake frequency: few times a month Substance/Drug Use: never Marital status: Single Physical Exam 2 Const: COMMON NORMALS: no acute distress GENERAL APPEARANCE: cooperative; not ill appearing and not frail appearing HENMT: COMMON NORMALS: normocephalic, atraumatic and Normal external nose present HEAD & SCALP: normocephalic and atraumatic FACE & SINUS: normal facial exam and face symmetric NOSE: Normal external nose present Eye: COMMON NORMALS: Equal, round and reactive pupils present and EOMs intact bilaterally PUPIL: Yes Equal, round and reactive pupils present Neck/C-Spine: GENERAL: Yes trachea midline Chest: CHEST: Yes Symmetrical chest wall rise Resp: COMMON NORMALS: normal respiratory effort, No retractions, No use of accessory muscles and clear to auscultation bilaterally AUSCULTATION: clear to auscultation bilaterally Cardio: COMMON NORMALS: regular rate and regular rhythm RATE: regular rate RHYTHM: regular rhythm GI: COMMON NORMALS: Normal to inspection, nondistended, normoactive bowel sounds present Extremity: COMMON NORMALS: no pedal edema Neuro: MALINDA COMA SCALE: document GCS findings [place] coma scale eye opening: Spontaneous [place] coma scale verbal response: Orientated [place] coma scale motor response: Obey commands [place] coma scale total score: 15 S ENSORY EXAM: Yes extremities (intact) Psych: COMMON NORMALS: speech normal SPEECH: Yes normal speech Skin: COMMON NORMALS: no rashes or lesions noted GENERAL SKIN EXAM: no rashes or lesions noted Course 2 Vital Signs: Vital signs: Vital Signs Temperature 98.3 F 10/29/23 02:23 Pulse Rate 112 H 10/29/23 02:23 Respiratory Rate 20 H 10/29/23 02:23 Blood Pressure 130/87 10/29/23 02:23 Pulse Oximetry 90 10/29/23 02:23 Oxygen Delivery Me thod Room Air 10/29/23 02:23 MDM - Recheck/Abnormal Lab/Rx Medical Decision Making Patient found to have a blood sugar of 400s in the emergency department. He is not terribly symptomatic. Sodium is 132. Hemoglobin is 18. Other laboratory not terribly remarkable. Anion gap is 17. He is given 13 units of IV insulin with a liter bolus, and blood sugar has fallen to the 260s. He will be placed on a sliding scale with regular insulin as an outpatient. Instructions were gone over with the patient's research librarian who believes he can handle checking sugars at appropriate times and administrating appropriate doses of insulin. He will follow-up with his watch crystal molder as scheduled. Lab Data 10/29/23 02:51 10/29/23 02:51 Laboratory Results WBC 6.78 10^3/uL (3.29-11.43) 10/29/23 02:51 RBC 6.15 10^6/uL (3.85-5.65) H 10/29/23 02:51 Hgb 18.10 g/dL (11.27-16.99) H 10/29/23 02:51 Hct 52.9 % (37-53) 10/29/23 02:51 MCV 86.0 fl (82-101) 10/29/23 02:51 MCH 29.4 pg (27-33) 10/29/23 02:51 MCHC 34.2 g/dL (30-55) 10/29/23 02:51 RDW 13.5 % (12.1-15.1) 10/29/23 02:51 Plt Count 224 10^3/cmm (157-399) 10/29/23 02:51 MPV 10.7 fL (7.4-10.4) H 10/29/23 02:51 Neut % (Auto) 43.7 % 10/29/23 02:51 Lymph % (Auto) 46.9 % 10/29/23 02:51 [place] % (Auto) 7.1 % 10/29/23 02:51 Eos % (Auto) 1.0 % 10/29/23 02:51 Baso % (Auto) 0.6 % 10/29/23 02:51 Neut # (Auto) 2.96 10^3/uL (1.8-7.7) 10/29/23 02:51 Lymph # (Auto) 3.2 10^3/uL (0.8-4.8) 10/29/23 02:51 [place] # (Auto) 0.5 10^3/uL (0.2-0.9) 10/29/23 02:51 Eos # (Auto) 0.1 10^3/uL (0.0-0.8) 10/29/23 02:51 Baso # (Auto) 0.0 10^3/uL (0.0-0.1) 10/29/23 02:51 Nucleated RBC % (auto) 0 % 10/29/23 02:51 Nucleated RBCs # 0.0 /100WBC 10/29/23 02:51 Sodium 132 mmol/L (136-145) L 10/29/23 02:51 Potassium 4.7 mmol/L (3.5-5.1) 10/29/23 02:51 Chloride 92 mmol/L (98-107) L 10/29/23 02:51 Carbon Dioxide 28 mmol/L (22-29) 10/29/23 02:51 Anion Gap 16.7 (5-19) 10/29/23 02:51 BUN 20 mg/dL (6-20) 10/29/23 02:51 Creatinine 0.9 mg/dL (0.7-1.2) 10/29/23 02:51 GFR Calculation 91.7 mL/min (90-130) 10/29/23 02:51 Glucose 404 mg/dL (65-115) H 10/29/23 02:51 POC Glucose 262 mg/dL (70-110) H 10/29/23 03:42 Calculated Osmolality 294 mOsm/kg (285-295) 10/29/23 02:51 Calcium 10.9 mg/dL (8.5-10.5) H 10/29/23 02:51 Magnesium 1.8 mg/dL (1.7-2.3) 10/29/23 02:51 Total Bilirubin 0.3 mg/dL (0.15-1.2) 10/29/23 02:51 AST 12 U/L (0-40) 10/29/23 02:51 ALT 25 U/L (0-41) 10/29/23 02:51 Alkaline Phosphatase 98 U/L (40-130) 10/29/23 02:51 Total Protein 7.2 g/dL (6.6-8.7) 10/29/23 02:51 Albumin 4.5 g/dL (3.5-5.2) 10/29/23 02:51 Globulin 2.7 g/dL (1.3-4.6) 10/29/23 02:51 No radiology studies performed this visit Discharge Plan Discharge Patient Disposition: Home Clinical Impression: Acute hyperglycemia Condition: Stable Prescriptions: No Action gabapentin [Neurontin] 300 mg capsule 300 mg PO BID atorvastatin 40 mg tablet 40 mg PO BEDTIME metformin 500 mg tablet extended release 24hr 1,000 mg PO DAILY aripiprazole 30 mg tablet 15 mg PO BID 30 Days Qty: 30 3RF divalproex 500 mg tablet extended release 24 hr 2,000 mg PO BEDTIME 30 Days Qty: 120 4RF venlafaxine 75 mg capsule,extended release 24hr 225 mg PO DAILY 30 Days Qty: 90 3RF ciclopirox 0.77 % cream 1 applic topical DAILY 28 Days Qty: 90 0RF metoprolol succinate 25 mg tablet extended release 24 hr 25 mg PO DAILY Qty: 90 0RF olanzapine 5 mg tablet,disintegrating 5 mg PO DAILY Qty: 30 2RF Rx Instructions: Take one tablet daily at 5 PM diazepam 5 mg tablet 5 mg PO .COMPLEX Qty: 60 1RF Rx Instructions: Take one tablet by mouth every morning, and one tablet daily at 1 PM, if needed insulin lispro [Humalog KwikPen Insulin] 100 unit/mL insulin pen See Rx Instructions .ROUTE .COMPLEX Qty: 15 0RF Dose Instruction: INJECT FOUR UNITS SUBCUTANEOUSLY EVERY 6 HOURS NEEDED FOR BG ABOVE 400 Rx Instructions: INJECT FOUR UNITS SUBCUTANEOUSLY EVERY 6 HOURS NEEDED FOR BG ABOVE 400 Mounjaro 7.5 mg/0.5 mL pen injector 7.5 mg SUBCUT Q7D 30 Days Qty: 2.5 0RF Rx Instructions: ON SUNDAY promethazine-DM 6.25-15 mg/5 mL syrup 5 ml PO Q6H PRN (Reason: Cough) aspirin 81 mg tablet,delayed release (DR/EC) 81 mg PO DAILY Pain Reliever (acetaminophen) 500 mg tablet 1,000 mg PO Q6H PRN (Reason: Pain) albuterol sulfate 90 mcg/actuation HFA aerosol inhaler 2 puff INHALATION Q4H PRN (Reason: Shortness Of Breath Or Wheezing) cetirizine 10 mg Capsule 10 mg PO BEDTIME PRN (Reason: Allergy Symptoms) Eliquis 5 mg tablet 5 mg PO BID Jardiance 25 mg tablet 25 mg PO DAILY bismuth subsalicylate [Stomach Relief] 262 mg/15 mL suspension 262 mg PO Q4H PRN (Reason: Indigestion) irbesartan 150 mg tablet 150 mg PO DAILY Discharge Orders: Discharge ED (Routine); Ordered 10/29/23 Ordered By: Abdiel Garcia Referrals: Blair Cheatham MD [Primary Care Provider] - 4-7 days Patient Instructions: Diabetic Hyperglycemia (ED) Activity Restrictions/Additional Instructions: Use the sliding scale according to instructions on it provided to you this morning. Take blood sugars 30 minutes prior to each meal, and before bedtime. Use the sliding scale accordingly to provide appropriate insulin treatment. See your watch crystal molder as directed. Return for concerning symptoms. Coding Level of Care Code ED Internet Media Planner for Chg Boyd
[2023-10-29 03:17] LABS: Alanine Aminotransferase 25 U/L (0-41); Albumin Level 4.5 g/dL (3.5-5.2); Alkaline Phosphatase 98 U/L (40-130); Anion Gap 16.7 (5-19); Aspartate Amino Transferase 12 U/L (0-40); Blood Urea Nitrogen 20 mg/dL (6-20); Calcium 10.9 mg/dL (8.5-10.5); Carbon Dioxide 28 mmol/L (22-29); Chloride 92 mmol/L (98-107); Globulin 2.7 g/dL (1.3-4.6); Glomerular Filtration Rate 91.7 mL/min (90-130); Glucose 404 mg/dL (65-115); Magnesium 1.8 mg/dL (1.7-2.3); Osmolality Calculated 294 mOsm/kg (285-295); Potassium 4.7 mmol/L (3.5-5.1); Sodium 132 mmol/L (136-145); Total Bilirubin 0.3 mg/dL (0.15-1.2); Total Protein 7.2 g/dL (6.6-8.7)
[2023-10-29 03:45] LABS: Glucose Point of Care 262 mg/dL (70-110)
== END 2023-10-29 04:16 | disposition home or self-care (01) ==
PROVIDERS: Emergency Provider Emergency Medicine; PCP Family Medicine
DX: E11.65 Type 2 diabetes mellitus with hyperglycemia (principal); Z79.4 Long term (current) use of insulin; Z79.84 Long term (current) use of oral hypoglycemic drugs; Z79.82 Long term (current) use of aspirin; Z79.01 Long term (current) use of anticoagulants; F17.290 Nicotine dependence, other tobacco product, uncomplicated; E11.40 Type 2 diabetes mellitus with diabetic neuropathy, unspecified; E78.5 Hyperlipidemia, unspecified; I10 Essential (primary) hypertension
CPT/HCPCS: 36416; 80053; 82962; 83735; 85025; 96374; 99284; J1815; J7030

== ENCOUNTER 2023-11-03 01:22 | Emergency (ER) | payer MEDICARE, MEDICAID, SELFPAY ==
[2023-11-03 01:24] VITALS: BP 122/89; PULSE 115; RESP 20; TEMP 36.6; O2SAT 93; BMI 36.9
[2023-11-03 01:36] LABS: Basophils % 0.3 %; Eosinophils # 0.1 10^3/uL (0.0-0.8); Eosinophils % 0.8 %; Hematocrit 49.3 % (37-53); Lymphocytes # 2.9 10^3/uL (0.8-4.8); Lymphocytes % 45.3 %; Mean Corpuscular HGB Conc 34.1 g/dL (30-55); Mean Corpuscular Hemoglobin 29.6 pg (27-33); Mean Corpuscular Volume 86.9 fl (82-101); Mean Platelet Volume 11.1 fL (7.4-10.4); Monocytes # 0.5 10^3/uL (0.2-0.9); Monocytes % 7.4 %; Neutrophils # 2.85 10^3/uL (1.8-7.7); Neutrophils % 45.1 %; Nucleated Red Blood Cells % 0 %; Platelet Count 217 10^3/cmm (157-399); Red Blood Count 5.67 10^6/uL (3.85-5.65); Red Cell Distribution Width 13.3 % (12.1-15.1); White Blood Count 6.32 10^3/uL (3.29-11.43)
[2023-11-03] MEDS: insulin regular-human 100 units/1 mL 10 UNIT IVP (01:42)
[2023-11-03] MEDS: sodium chloride 0.9% 1,000 ML 999 ML IV ×2 (01:46→03:28)
[2023-11-03 01:55] LABS: Glomerular Filtration Rate 91.7 mL/min (90-130); Total Bilirubin 0.2 mg/dL (0.15-1.2)
[2023-11-03 02:28] LABS: Alanine Aminotransferase 28 U/L (0-41); Albumin Level 4.1 g/dL (3.5-5.2); Alkaline Phosphatase 107 U/L (40-130); Aspartate Amino Transferase 11 U/L (0-40); Blood Urea Nitrogen 26 mg/dL (6-20); Calcium 10.4 mg/dL (8.5-10.5); Carbon Dioxide 25 mmol/L (22-29); Globulin 2.7 g/dL (1.3-4.6); Total Protein 6.8 g/dL (6.6-8.7)
[2023-11-03 02:35] LABS: Anion Gap 20.4 (5-19); Chloride 88 mmol/L (98-107); Glucose 574 mg/dL (65-115); Osmolality Calculated 299 mOsm/kg (285-295); Potassium 4.4 mmol/L (3.5-5.1); Sodium 129 mmol/L (136-145)
[2023-11-03 02:42] LABS: Glucose Point of Care 370 mg/dL (70-110)
[2023-11-03] MEDS: ondansetron 2 mg/ML SDV 2 mL 4 MG IVP (03:34)
[2023-11-03 04:56] LABS: Glucose Point of Care 275 mg/dL (70-110)
--- NOTE | 2023-11-03 05:02 | W.ED.RECABL ---
HPI - Recheck/Abnormal Lab/Rx General: Chief Complaint: Recheck/Abnormal Lab/Rx Stated Complaint: hyperglycemia Time Seen by Provider: 11/03/23 01:30 History of Present Illness: 43-year-old male presents emergency room via EMS due to elevated blood sugar. Patient reveals that he is taking his medication as directed but noticed elevated blood sugar 400 at home. Patient with some nausea and vomiting but [place] any abdominal pain, fever, chills, dysuria, hematuria urine frequency. No sick contact or recent foreign travel. Review of Systems General: Reports: 10 or more systems reviewed and unremarkable except in HPI and below GI: Reports: nausea and vomiting PFSH ED PFSH: Medical History Coronary-myocardial bridge Peripheral neuropathy Type 2 diabetes mellitus Hyperlipidemia Hypertension Pulmonary embolism Other reactions to severe stress Bipolar 1 disorder Most recent episode depressed Fracture of [facility] Surgical History History of appendectomy Social History Smoking and tobacco/nicotine status: current every day tobacco/nicotine user e-cigarettes Alcohol intake: current Alcohol intake frequency: few times a month Substance/Drug Use: never Marital status: Single Physical Exam Const: COMMON NORMALS: no acute distress, average body habitus, patient oriented x3, no limitations, healthy appearing, alert and well nourished HENMT: COMMON NORMALS: normocephalic, atraumatic, hearing grossly normal bilaterally, external ears normal, EAC's normal, TM's normal bilaterally, Normal external nose present, Normal nasal mucous membranes and turbinates present, moist oral mucous membranes, oropharynx normal, dentition normal and gingiva normal HEAD & SCALP: normocephalic and atraumatic NOSE: Normal external nose present and Normal nasal mucous membranes and turbinates present EXTERNAL EAR: Yes external ears normal EXTERNAL AUDITORY CANAL: EAC's normal TYMPANIC MEMBRANE: TM's normal bilaterally Neck/C-Spine: COMMON NORMALS: full ROM, no lymphadenopathy, supple, no meningeal signs, no JVD, Thyroid normal and No carotid bruits THYROID: Thyroid normal Chest: COMMONS NORMALS: normal inspection of the chest, normal palpation of entire chest wall, normal inspection of the breasts and normal palpation of the breasts Breast/axilla inspection: Yes normal inspection of the breasts BREAST/AXILLA PALPATION: Yes normal palpation of the breasts Resp: COMMON NORMALS: normal respiratory effort, No retractions, No use of accessory muscles, clear to auscultation bilaterally and percussion normal AUSCULTATION: clear to auscultation bilaterally PERCUSSION: percussion normal Cardio: COMMON NORMALS: no JVD Extremity: COMMON NORMALS: normal to inspection, full ROM, capillary refill normal, no joint enlargement, no clubbing, cyanosis or edema, no calf tenderness and no pedal edema Neuro: COMMON NORMALS: patient oriented x3 SENSORIUM/ORIENTATION: Yes alert MENINGEAL SIGNS: Yes no meningeal signs Psych: COMMON NORMALS: mental status grossly normal, Normal thought process present, cooperative, normal affect, speech normal, activity/motor behavior normal, denies hallucinations, denies homicidal ideation and denies suicidal ideation SPEECH: Yes normal speech THOUGHT PROCESS: Normal thought process present Course Vital Signs: Vital signs: Vital Signs Temperature 98 F 11/03/23 01:24 Pulse Rate 115 H 11/03/23 01:24 Respiratory Rate 20 H 11/03/23 01:24 Blood Pressure 122/89 11/03/23 01:24 Pulse Oximetry 93 11/03/23 01:24 Oxygen Delivery Me thod Room Air 11/03/23 01:24 MDM - Recheck/Abnormal Lab/Rx Medical Decision Making Patient was made comfortable emergency room and had extensive workup including CBC, CMP, patient was given IV fluid x 2 patient was given IV insulin and upon recheck blood pressure did improve significantly. Patient is currently not in DKA. Patient be discharged back to her [place] [facility] with a caregiver. Differential Diagnosis Likely warfarin-induced coagulopathy (DKA,, hypoglycemia, electrolyte abnormality with infection) Lab Data 11/03/23 01:30 11/03/23 01:30 Laboratory Results WBC 6.32 10^3/uL (3.29-11.43) 11/03/23 01:30 RBC 5.67 10^6/uL (3.85-5.65) H 11/03/23 01:30 Hgb 16.80 g/dL (11.27-16.99) 11/03/23 01:30 Hct 49.3 % (37-53) 11/03/23 01:30 MCV 86.9 fl (82-101) 11/03/23 01:30 MCH 29.6 pg (27-33) 11/03/23 01:30 MCHC 34.1 g/dL (30-55) 11/03/23 01:30 RDW 13.3 % (12.1-15.1) 11/03/23 01:30 Plt Count 217 10^3/cmm (157-399) 11/03/23 01:30 MPV 11.1 fL (7.4-10.4) H 11/03/23 01:30 Neut % (Auto) 45.1 % 11/03/23 01:30 Lymph % (Auto) 45.3 % 11/03/23 01:30 [place] % (Auto) 7.4 % 11/03/23 01:30 Eos % (Auto) 0.8 % 11/03/23 01:30 Baso % (Auto) 0.3 % 11/03/23 01:30 Neut # (Auto) 2.85 10^3/uL (1.8-7.7) 11/03/23 01:30 Lymph # (Auto) 2.9 10^3/uL (0.8-4.8) 11/03/23 01:30 [place] # (Auto) 0.5 10^3/uL (0.2-0.9) 11/03/23 01:30 Eos # (Auto) 0.1 10^3/uL (0.0-0.8) 11/03/23 01:30 Baso # (Auto) 0.0 10^3/uL (0.0-0.1) 11/03/23 01:30 Nucleated RBC % (auto) 0 % 11/03/23 01:30 Nucleated RBCs # 0.0 /100WBC 11/03/23 01:30 Sodium 129 mmol/L (136-145) L 11/03/23 01:30 Potassium 4.4 mmol/L (3.5-5.1) 11/03/23 01:30 Chloride 88 mmol/L (98-107) L 11/03/23 01:30 Carbon Dioxide 25 mmol/L (22-29) 11/03/23 01:30 Anion Gap 20.4 (5-19) H 11/03/23 01:30 BUN 26 mg/dL (6-20) H 11/03/23 01:30 Creatinine 0.9 mg/dL (0.7-1.2) 11/03/23 01:30 GFR Calculation 91.7 mL/min (90-130) 11/03/23 01:30 Glucose 574 mg/dL (65-115) H* 11/03/23 01:30 POC Glucose 275 mg/dL (70-110) H 11/03/23 04:52 Calculated Osmolality 299 mOsm/kg (285-295) H 11/03/23 01:30 Calcium 10.4 mg/dL (8.5-10.5) 11/03/23 01:30 Total Bilirubin 0.2 mg/dL (0.15-1.2) 11/03/23 01:30 AST 11 U/L (0-40) 11/03/23 01:30 ALT 28 U/L (0-41) 11/03/23 01:30 Alkaline Phosphatase 107 U/L (40-130) 11/03/23 01:30 Total Protein 6.8 g/dL (6.6-8.7) 11/03/23 01:30 Albumin 4.1 g/dL (3.5-5.2) 11/03/23 01:30 Globulin 2.7 g/dL (1.3-4.6) 11/03/23 01:30 No radiology studies performed this visit Discharge Plan Discharge Patient Disposition: Home Clinical Impression: Acute hyperglycemia Type 2 diabetes mellitus Qualifiers: Diabetes mellitus long term acute care registered nurse insulin use: with long term acute care registered nurse use Diabetes mellitus complication status: without complication Qualified Code(s): E11.9 - Type 2 diabetes mellitus without complications Condition: Stable Prescriptions: No Action gabapentin [Neurontin] 300 mg capsule 300 mg PO BID atorvastatin 40 mg tablet 40 mg PO BEDTIME metformin 500 mg tablet extended release 24hr 1,000 mg PO DAILY aripiprazole 30 mg tablet 15 mg PO BID 30 Days Qty: 30 3RF divalproex 500 mg tablet extended release 24 hr 2,000 mg PO BEDTIME 30 Days Qty: 120 4RF venlafaxine 75 mg capsule,extended release 24hr 225 mg PO DAILY 30 Days Qty: 90 3RF ciclopirox 0.77 % cream 1 applic topical DAILY 28 Days Qty: 90 0RF olanzapine 5 mg tablet,disintegrating 5 mg PO DAILY Qty: 30 2RF Rx Instructions: Take one tablet daily at 5 PM diazepam 5 mg tablet 5 mg PO .COMPLEX Qty: 60 1RF Rx Instructions: Take one tablet by mouth every morning, and one tablet daily at 1 PM, if needed Mounjaro 7.5 mg/0.5 mL pen injector See Rx Instructions .ROUTE .COMPLEX Qty: 2.5 0RF Dose Instruction: INJECT 7.5MG SUBCUTANEOUSLY EVERY 7 DAYS Rx Instructions: INJECT 7.5MG SUBCUTANEOUSLY EVERY 7 DAYS insulin lispro [Humalog KwikPen Insulin] 100 unit/mL insulin pen See Rx Instructions .ROUTE .COMPLEX Qty: 15 0RF Dose Instruction: INJECT FOUR UNITS SUBCUTANEOUSLY EVERY 6 HOURS NEEDED FOR BG ABOVE 400 Rx Instructions: INJECT FOUR UNITS SUBCUTANEOUSLY EVERY 6 HOURS NEEDED FOR BG ABOVE 400 metoprolol succinate 25 mg tablet extended release 24 hr 25 mg PO DAILY Qty: 90 0RF promethazine-DM 6.25-15 mg/5 mL syrup 5 ml PO Q6H PRN (Reason: Cough) aspirin 81 mg tablet,delayed release (DR/EC) 81 mg PO DAILY Pain Reliever (acetaminophen) 500 mg tablet 1,000 mg PO Q6H PRN (Reason: Pain) albuterol sulfate 90 mcg/actuation HFA aerosol inhaler 2 puff INHALATION Q4H PRN (Reason: Shortness Of Breath Or Wheezing) cetirizine 10 mg Capsule 10 mg PO BEDTIME PRN (Reason: Allergy Symptoms) Eliquis 5 mg tablet 5 mg PO BID Jardiance 25 mg tablet 25 mg PO DAILY bismuth subsalicylate [Stomach Relief] 262 mg/15 mL suspension 262 mg PO Q4H PRN (Reason: Indigestion) irbesartan 150 mg tablet 150 mg PO DAILY Discharge Orders: Discharge ED (Routine); Ordered 11/03/23 Ordered By: Tanisha Menon Referrals: Blair Cheatham MD [Primary Care Provider] - Discharge Diet: Advance as tolerated Discharge Activity: Resume usual activity Patient Instructions: Opioid Safety, Pain Management Coding Level of Care Code ED Paint Mixer Hand for Dasha Nix
[2023-11-03 05:10] VITALS: BP 114/73; PULSE 95; RESP 16; O2SAT 95
== END 2023-11-03 05:12 | disposition home or self-care (01) ==
PROVIDERS: Emergency Provider Family Medicine; PCP Family Medicine
DX: E11.65 Type 2 diabetes mellitus with hyperglycemia (principal); Z79.84 Long term (current) use of oral hypoglycemic drugs; Z79.4 Long term (current) use of insulin; Z79.82 Long term (current) use of aspirin; Z79.01 Long term (current) use of anticoagulants; E11.42 Type 2 diabetes mellitus with diabetic polyneuropathy; E78.5 Hyperlipidemia, unspecified; I10 Essential (primary) hypertension; F17.290 Nicotine dependence, other tobacco product, uncomplicated
CPT/HCPCS: 36416; 80053; 82962; 85025; 96374; 96375; 99284; J1815; J2405; J7030

== ENCOUNTER → 2023-11-09 07:28 | Outpatient (BNVA) | payer MEDICARE, MEDICAID, SELFPAY | PROVIDERS: PCP Family Medicine; Visit Provider Internal Medicine | DX: E11.9 Type 2 diabetes mellitus without complications (principal); Z79.4 Long term (current) use of insulin; E78.5 Hyperlipidemia, unspecified; Z79.84 Long term (current) use of oral hypoglycemic drugs | CPT/HCPCS: 99214 ==

== ENCOUNTER 2023-11-12 18:06 | Emergency (ER) | payer MEDICARE, MEDICAID, SELFPAY ==
[2023-11-12] VITALS (7 sets, daily range): BP systolic 116–165; BP diastolic 64–114; PULSE 112–128; RESP 16–26; TEMP 36.8; O2SAT 91–96; BMI 33.0
--- NOTE | 2023-11-12 18:09 | XRR_ITS ---
PROCEDURE INFORMATION: Exam: XR Chest Exam date and time: 11/12/2023 6:41 PM Age: 43 years old Clinical indication: Pain; Chest pressure; Prior surgery; Surgery date: 6+ months; Surgery type: Coronary myocardial bridge; Additional info: Cp TECHNIQUE: Imaging protocol: Radiologic exam of the chest. Views: 1 view. COMPARISON: CR XR chest 2V* [id number] 10/23/2023 10:30 PM FINDINGS: Lungs: Minimal linear atelectasis laterally mid to upper right lung. No focal infiltrate or consolidation. Pleural spaces: No pleural effusion or pneumothorax. Heart/Mediastinum: Cardiac size is within normal limits. Bones/joints: Spondylotic change thoracic spine. Other findings: No significant change with prior exam. XR/XR chest 1V portable [id number] IMPRESSION: Minimal linear atelectasis laterally mid to upper right lung. No acute findings.
--- NOTE | 2023-11-12 18:14 | ECG_ITS ---
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 Measurements Intervals [place] Rate: 126 P: 44 FL: 168 QRS: 0 QRSD: 103 T: 42 QT: 302 QTc: 437 Interpretive Statements SINUS TACHYCARDIA INDETERMINATE AXIS POSSIBLE ANTERIOR MYOCARDIAL INFARCTION , OF INDETERMINATE AGE [30 ms Q WAVE IN V3/V4, OR R < 0.2 mV IN V4] Compared to ECG 10/24/2023 04:31:12 Indeterminate axis now present Myocardial infarct finding now present Intraventricular conduction delay no longer present Electronically Signed On 11-12-2023 21:01:39 SYSTEMS INTEGRATION MANAGER by Yina Lugo M.D. [id number]
--- NOTE | 2023-11-12 18:40 | ED_ITS ---
HPI - Chest Pain 2 General: Chief Complaint: Chest Pain Stated Complaint: chest pain Time Seen by Provider: 11/12/23 18:08 Source: patient Mode of arrival: ambulatory Limitations: no limitations History of Present Illness: 43-year-old male who is very well-known to ER states has been having chest pain over the last 2 hours. States the pain is sharp and has since resolved. He denies any shortness of breath denies any vomiting denies any cough or fever. Associated symptoms: Deny abdominal pain, dyspnea, fever(s), nausea or vomiting Review of Systems 2 Const: Denies: fever(s), chills, body aches or change in appetite ENMT: Denies: throat pain or dental pain Card: Reports: chest pain Resp: Denies: dyspnea GI: Denies: abdominal pain, nausea, vomiting or diarrhea : Denies: dysuria Musc: Denies: neck pain or back pain Skin/Breast: Denies: rash Neuro: Denies: headache(s) PFSH ED 2 PFSH: Medical History Coronary-myocardial bridge Peripheral neuropathy Type 2 diabetes mellitus Hyperlipidemia Hypertension Pulmonary embolism Other reactions to severe stress Bipolar 1 disorder Most recent episode depressed Fracture of [facility] Surgical History History of appendectomy Social History Smoking and tobacco/nicotine status: current every day tobacco/nicotine user e- cigarettes Alcohol intake: current Alcohol intake frequency: few times a month Substance/Drug Use: never Marital status: Single Physical Exam 2 Const: COMMON NORMALS: no acute distress, patient oriented x3 and healthy appearing HENMT: COMMON NORMALS: normocephalic and atraumatic HEAD & SCALP: n ormocephalic and atraumatic Eye: COMMON NORMALS: Equal, round and reactive pupils present and EOMs intact bilaterally PUPIL: Yes Equal, round and reactive pupils present Neck/C-Spine: COMMON NORMALS: full ROM and supple Chest: COMMONS NORMALS: normal inspection of the chest and normal palpation of entire chest wall Resp: COMMON NORMALS: normal respiratory effort, No retractions, No use of accessory muscles and clear to auscultation bilaterally AUSCULTATION: clear to auscultation bilaterally Cardio: COMMON NORMALS: regular rate, regular rhythm and No murmurs present (Cardio) RATE: regular rate RHYTHM: regular rhythm GI: COMMON NORMALS: Normal to inspection, nondistended, normoactive bowel sounds present, Soft to palpation, non-tender and no masses PALPATION: Yes Soft to palpation Extremity: COMMON NORMALS: normal to inspection and full ROM Neuro: COMMON NORMALS: patient oriented x3, moves all extremities and no focal motor deficits Psych: COMMON NORMALS: mental status grossly normal, Normal thought process present and cooperative THOUGHT PROCESS: Normal thought process present Skin: COMMON NORMALS: no rashes or lesions noted and no wounds GENERAL SKIN EXAM: no rashes or lesions noted Course 2 Vital Signs: Vital signs: Vital Signs Temperature 98.2 F 11/12/23 18:08 Pulse Rate 112 H 11/12/23 21:06 Respiratory Rate 18 11/12/23 21:06 Blood Pressure 141/64 11/12/23 21:06 Pulse Oximetry 93 11/12/23 21:06 Oxygen Delivery Me thod Nasal Cannula 11/12/23 20:59 Oxygen Flow Rate 2 11/12/23 20:59 MDM - Chest Pain Medical Decision Making Patient presents for chest pains atypical in nature initial repeat troponins here are normal EKGs x-ray normal as well no signs of acute coronary syndrome he has no signs of dissection or pulmonary embolism he is stable for discharge follow-up with PCP and return if worsening. Medical Records I reviewed the patient's medical records. Lab Data I reviewed the patient's lab results. 11/12/23 19:01 11/12/23 19:01 Radiology Impressions Chest X-Ray 11/12/23 18:09 IMPRESSION: Minimal linear atelectasis laterally mid to upper right lung. No acute findings. Laboratory Results WBC 5.47 10^3/uL (3.29-11.43) 11/12/23 19:01 RBC 5.85 10^6/uL (3.85-5.65) H 11/12/23 19:01 Hgb 17.30 g/dL (11.27-16.99) H 11/12/23 19:01 Hct 50.9 % (37-53) 11/12/23 19: MCV 87.0 fl (82-101) 11/12/23 19:01 MCH 29.6 pg (27-33) 11/12/23 19:01 MCHC 34.0 g/dL (30-55) 11/12/23 19:01 RDW 13.8 % (12.1-15.1) 11/12/23 19:01 Plt Count 243 10^3/cmm (157-399) 11/12/23 19:01 MPV 10.1 fL (7.4-10.4) 11/12/23 19:01 Neut % (Auto) 49.8 % 11/12/23 19:01 Lymph % (Auto) 39.5 % 11/12/23 19:01 [place] % (Auto) 8.8 % 11/12/23 19:01 Eos % (Auto) 0.7 % 11/12/23 19:01 Baso % (Auto) 0.5 % 11/12/23 19:01 Neut # (Auto) 2.72 10^3/uL (1.8-7.7) 11/12/23 19:01 Lymph # (Auto) 2.2 10^3/uL (0.8-4.8) 11/12/23 19:01 [place] # (Auto) 0.5 10^3/uL (0.2-0.9) 11/12/23 19:01 Eos # (Auto) 0.0 10^3/uL (0.0-0.8) 11/12/23 19:01 Baso # (Auto) 0.0 10^3/uL (0.0-0.1) 11/12/23 19:01 Nucleated RBC % (auto) 0 % 11/12/23 19:01 Nucleated RBCs # 0.0 /100WBC 11/12/23 19:01 Sodium 131 mmol/L (136-145) L 11/12/23 19:01 Potassium 4.3 mmol/L (3.5-5.1) 11/12/23 19:01 Chloride 93 mmol/L (98-107) L 11/12/23 19:01 Carbon Dioxide 22 mmol/L (22-29) 11/12/23 19:01 Anion Gap 20.3 (5-19) H 11/12/23 19:01 BUN 14 mg/dL (6-20) 11/12/23 19:01 Creatinine 0.8 mg/dL (0.7-1.2) 11/12/23 19:01 GFR Calculation 105.0 mL/min (90-130) 11/12/23 19:01 Glucose 266 mg/dL (65-115) H 11/12/23 19:01 POC Glucose 237 mg/dL (70-110) H 11/12/23 19:12 Calculated Osmolality 282 mOsm/kg (285-295) L 11/12/23 19:01 Calcium 9.6 mg/dL (8.5-10.5) 11/12/23 19:01 Total Bilirubin 0.4 mg/dL (0.15-1.2) 11/12/23 19:01 AST 13 U/L (0-40) 11/12/23 19:01 ALT 15 U/L (0-41) 11/12/23 19:01 Alkaline Phosphatase 74 U/L (40-130) 11/12/23 19:01 Troponin T Baseline 7 ng/L (0-15) 11/12/23 19:01 Troponin T 120 Minute 6.43 ng/L (0-15) 11/12/23 20:42 Delta Troponin T -0.57 ABS# (0-10) L 11/12/23 20:42 Total Protein 6.7 g/dL (6.6-8.7) 11/12/23 19:01 Albumin 4.3 g/dL (3.5-5.2) 11/12/23 19:01 Globulin 2.4 g/dL (1.3-4.6) 11/12/23 19:01 No radiology studies performed this visit EKG Data EKG 1: I personally reviewed and interpreted this EKG as follows: EKG interpretation date: 11/12/23 EKG interpretation time: 18:14 Interpretation: sinus tach hr [address] or t wave abnormalities qrs 103 qtc 376 Discharge Plan Discharge Patient Disposition: Home Clinical Impression: Chest pain Qualifiers: Chest pain type: unspecified Qualified Code(s): R07.9 - Chest pain, unspecified Condition: Stable Prescriptions: No Action gabapentin [Neurontin] 300 mg capsule 300 mg PO BID atorvastatin 40 mg tablet 40 mg PO BEDTIME aripiprazole 30 mg tablet 15 mg PO BID 30 Days Qty: 30 3RF divalproex 500 mg tablet extended release 24 hr 2,000 mg PO BEDTIME 30 Days Qty: 120 4RF venlafaxine 75 mg capsule,extended release 24hr 225 mg PO DAILY 30 Days Qty: 90 3RF ciclopirox 0.77 % cream 1 applic topical DAILY 28 Days Qty: 90 0RF olanzapine 5 mg tablet,disintegrating 5 mg PO DAILY Qty: 30 2RF Rx Instructions: Take one tablet daily at 5 PM diazepam 5 mg tablet 5 mg PO .COMPLEX Qty: 60 1RF Rx Instructions: Take one tablet by mouth every morning, and one tablet daily at 1 PM, if needed metformin 500 mg tablet extended release 24 hr 1,000 mg PO BID Mounjaro 10 mg/0.5 mL pen injector 10 mg SUBCUT Q7D 30 Days Qty: 2.5 0RF Rx Instructions: 10mg weekly x one month Mounjaro 12.5 mg/0.5 mL pen injector 12.5 mg SUBCUT Q7D 30 Days Qty: 2.5 0RF Rx Instructions: 12.5 weekly x one month Mounjaro 15 mg/0.5 mL pen injector 15 mg SUBCUT Q7D 90 Days Qty: 6.5 0RF Rx Instructions: 15mg weekly insulin lispro [Humalog KwikPen Insulin] 100 unit/mL insulin pen See Rx Instructions .ROUTE .COMPLEX Qty: 15 0RF Dose Instruction: INJECT FOUR UNITS SUBCUTANEOUSLY EVERY 6 HOURS NEEDED FOR BG ABOVE 400 Rx Instructions: INJECT FOUR UNITS SUBCUTANEOUSLY EVERY 6 HOURS NEEDED FOR BG ABOVE 400 metoprolol succinate 25 mg tablet extended release 24 hr 25 mg PO DAILY Qty: 90 0RF olanzapine 5 mg tablet,disintegrating 5 mg PO DAILY PRN (Reason: agitation) Qty: 30 0RF Rx Instructions: One tablet once daily, if needed for agitation promethazine-DM 6.25-15 mg/5 mL syrup 5 ml PO Q6H PRN (Reason: Cough) aspirin 81 mg tablet,delayed release (DR/EC) 81 mg PO DAILY Pain Reliever (acetaminophen) 500 mg tablet 1,000 mg PO Q6H PRN (Reason: Pain) albuterol sulfate 90 mcg/actuation HFA aerosol inhaler 2 puff INHALATION Q4H PRN (Reason: Shortness Of Breath Or Wheezing) cetirizine 10 mg Capsule 10 mg PO BEDTIME PRN (Reason: Allergy Symptoms) Eliquis 5 mg tablet 5 mg PO BID Jardiance 25 mg tablet 25 mg PO DAILY bismuth subsalicylate [Stomach Relief] 262 mg/15 mL suspension 262 mg PO Q4H PRN (Reason: Indigestion) irbesartan 150 mg tablet 150 mg PO DAILY Discharge Orders: Discharge ED (Routine); Ordered 11/12/23 Ordered By: Wale Vyas Referrals: Bautista Ruiz MD [Primary Care Provider] - 4-7 days Discharge Diet: Advance as tolerated Discharge Activity: Resume usual activity Patient Instructions: Chest Pain (ED) Coding Level of Care Code ED Accreditation Coordinator for Dasha Nix
[2023-11-12] MEDS: ondansetron 2 mg/ML SDV 2 mL 4 MG IVP (19:07)
[2023-11-12] MEDS: morphine 4 mg/mL SDV 1 mL IVP (19:08)
[2023-11-12 19:10] LABS: Basophils % 0.5 %; Eosinophils % 0.7 %; Hematocrit 50.9 % (37-53); Lymphocytes # 2.2 10^3/uL (0.8-4.8); Lymphocytes % 39.5 %; Mean Corpuscular Hemoglobin 29.6 pg (27-33); Mean Platelet Volume 10.1 fL (7.4-10.4); Monocytes # 0.5 10^3/uL (0.2-0.9); Monocytes % 8.8 %; Neutrophils # 2.72 10^3/uL (1.8-7.7); Neutrophils % 49.8 %; Nucleated Red Blood Cells % 0 %; Platelet Count 243 10^3/cmm (157-399); Red Blood Count 5.85 10^6/uL (3.85-5.65); Red Cell Distribution Width 13.8 % (12.1-15.1); White Blood Count 5.47 10^3/uL (3.29-11.43)
[2023-11-12 19:15] LABS: Glucose Point of Care 237 mg/dL (70-110)
[2023-11-12 19:28] LABS: Alanine Aminotransferase 15 U/L (0-41); Albumin Level 4.3 g/dL (3.5-5.2); Alkaline Phosphatase 74 U/L (40-130); Blood Urea Nitrogen 14 mg/dL (6-20); Calcium 9.6 mg/dL (8.5-10.5); Carbon Dioxide 22 mmol/L (22-29); Chloride 93 mmol/L (98-107); Globulin 2.4 g/dL (1.3-4.6); Glucose 266 mg/dL (65-115); Osmolality Calculated 282 mOsm/kg (285-295); Sodium 131 mmol/L (136-145); Total Bilirubin 0.4 mg/dL (0.15-1.2); Total Protein 6.7 g/dL (6.6-8.7)
[2023-11-12 19:36] LABS: Anion Gap 20.3 (5-19); Aspartate Amino Transferase 13 U/L (0-40); Potassium 4.3 mmol/L (3.5-5.1)
[2023-11-12 19:39] LABS: Troponin(5th) Baseline 7 ng/L (0-15)
--- NOTE | 2023-11-12 20:31 | ECG_ITS ---
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 Measurements Intervals [place] Rate: 111 P: 40 ME: 194 QRS: 7 QRSD: 107 T: 34 QT: 327 QTc: 445 Interpretive Statements SINUS TACHYCARDIA POSSIBLE ANTERIOR MYOCARDIAL INFARCTION , OF INDETERMINATE AGE [30 ms Q WAVE IN V3/V4, OR R < 0.2 mV IN V4] Compared to ECG 11/12/2023 18:14:45 Indeterminate axis no longer present Myocardial infarct finding still present Electronically Signed On 11-13-2023 4:24:51 WEB WEAVER by Skinny Talbert M.D. [email or web address] [email or web address] [email or web address]/store/[id number]
[2023-11-12 21:08] LABS: Troponin 5 2HR 6.43 ng/L (0-15)
[2023-11-12 21:10] LABS: Troponin 5 2HR Delta -0.57 ABS# (0-10)
== END 2023-11-12 21:40 | disposition home or self-care (01) ==
PROVIDERS: Emergency Provider Emergency Medicine; PCP Family Medicine
DX: R07.9 Chest pain, unspecified (principal); Z79.84 Long term (current) use of oral hypoglycemic drugs; Z79.4 Long term (current) use of insulin; Z79.82 Long term (current) use of aspirin; Z79.01 Long term (current) use of anticoagulants; E11.42 Type 2 diabetes mellitus with diabetic polyneuropathy; E78.5 Hyperlipidemia, unspecified; I10 Essential (primary) hypertension; Z86.711 Personal history of pulmonary embolism; F17.290 Nicotine dependence, other tobacco product, uncomplicated
CPT/HCPCS: 36416; 71045; 80053; 82962; 84484; 85025; 93005; 96374; 96375; 99285; J2270; J2405

== ENCOUNTER → 2023-11-13 15:39 | Outpatient (BNVA) | payer MEDICARE, MEDICAID, SELFPAY | PROVIDERS: PCP Family Medicine; Visit Provider Internal Medicine | DX: I26.99 Other pulmonary embolism without acute cor pulmonale (principal); I10 Essential (primary) hypertension; E78.5 Hyperlipidemia, unspecified; F17.290 Nicotine dependence, other tobacco product, uncomplicated; E11.42 Type 2 diabetes mellitus with diabetic polyneuropathy; Z79.84 Long term (current) use of oral hypoglycemic drugs | CPT/HCPCS: 99214 ==

== ENCOUNTER 2023-11-15 20:03 | Emergency (ER) | payer MEDICARE, MEDICAID, SELFPAY ==
[2023-11-15 20:15] VITALS: BP 132/87; PULSE 127; RESP 16; TEMP 36.9; O2SAT 94
[2023-11-15 20:26] LABS: Glucose Point of Care 409 mg/dL (70-110)
[2023-11-15 20:52] LABS: Basophils % 0.6 %; Eosinophils % 0.6 %; Hematocrit 48.1 % (37-53); Lymphocytes # 2.4 10^3/uL (0.8-4.8); Lymphocytes % 47.8 %; Mean Corpuscular HGB Conc 34.3 g/dL (30-55); Mean Corpuscular Hemoglobin 29.9 pg (27-33); Mean Corpuscular Volume 87.3 fl (82-101); Mean Platelet Volume 10.5 fL (7.4-10.4); Monocytes # 0.4 10^3/uL (0.2-0.9); Monocytes % 8.4 %; Neutrophils # 2.09 10^3/uL (1.8-7.7); Nucleated Red Blood Cells % 0 %; Platelet Count 245 10^3/cmm (157-399); Red Blood Count 5.51 10^6/uL (3.85-5.65); Red Cell Distribution Width 13.9 % (12.1-15.1); White Blood Count 4.98 10^3/uL (3.29-11.43)
[2023-11-15 21:18] LABS: Alanine Aminotransferase 12 U/L (0-41); Albumin Level 4.2 g/dL (3.5-5.2); Alkaline Phosphatase 87 U/L (40-130); Anion Gap 19.1 (5-19); Aspartate Amino Transferase 11 U/L (0-40); Blood Urea Nitrogen 18 mg/dL (6-20); Calcium 9.6 mg/dL (8.5-10.5); Carbon Dioxide 22 mmol/L (22-29); Chloride 97 mmol/L (98-107); Globulin 2.6 g/dL (1.3-4.6); Glomerular Filtration Rate 91.7 mL/min (90-130); Glucose 412 mg/dL (65-115); Osmolality Calculated 297 mOsm/kg (285-295); Potassium 4.1 mmol/L (3.5-5.1); Sodium 134 mmol/L (136-145); Total Bilirubin 0.2 mg/dL (0.15-1.2); Total Protein 6.8 g/dL (6.6-8.7)
--- NOTE | 2023-11-15 21:44 | ED_ITS ---
HPI - General Adult 2 General: Chief complaint: General Medical Stated complaint: Blood Sugar was 472 Time Seen by Provider: 11/15/23 21:31 History of Present Illness: Patient presents to the ER for with high blood sugar. Patient states it was 404 at home. Patient states that his doctor took him off insulin. On metformin 2000 mg approximately 4 to 5 days ago but this is controlled his blood sugar fairly well it has been in the 150s to 200s did up until today. Today he ate a bunch of Jordanian fries a hamburger and drink some chocolate milk and his blood sugar went up to the 400 patient also states while he was using the bathroom he decided to turn around and then he passed out. Patient does not complain of pain anywhere. Review of Systems 2 General: Reports: 10 or more systems reviewed and unremarkable except in HPI and below PFSH ED 2 PFSH: Medical History Coronary-myocardial bridge Peripheral neuropathy Type 2 diabetes mellitus Hyperlipidemia Hypertension Pulmonary embolism Other reactions to severe stress Bipolar 1 disorder Most recent episode depressed Fracture of [facility] Psychiatric care Surgical History History of appendectomy Social History Smoking and tobacco/nicotine status: current every day tobacco/nicotine user e- cigarettes Alcohol intake: current Alcohol intake frequency: few times a month Substance/Drug Use: never Marital status: Single Physical Exam 2 Const: COMMON NORMALS: no acute distress, average body habitus, patient oriented x3, no limitations, healthy appearing, alert and well nourished HENMT: COMMON NORMALS: normocephalic, hearing grossly normal bilaterally, external ears normal, Normal external nose present, moist oral mucous membranes and oropharynx normal HEAD & SCALP: normocephalic NOSE: Normal external nose present EXTERNAL EAR: Yes external ears normal Neck/C-Spine: COMMON NORMALS: full ROM, no lymphadenopathy, supple, no meningeal signs, no JVD and Thyroid normal THYROID: Thyroid normal Chest: COMMONS NORMALS: normal inspection of the chest and normal palpation of entire chest wall Resp: COMMON NORMALS: normal respiratory effort, No retractions, No use of accessory muscles and clear to auscultation bilaterally AUSCULTATION: clear to auscultation bilaterally Cardio: COMMON NORMALS: no JVD, regular rate, regular rhythm, S1 normal heart sound present, S2 normal heart sound present, No gallops present (Cardio), No clicks present (Cardio), No murmurs present (Cardio) and No rub (Cardio) R ATE: regular rate RHYTHM: regular rhythm HEART SOUNDS: S1 normal heart sound present and S2 normal heart sound present GI: COMMON NORMALS: Normal to inspection, nondistended, normoactive bowel sounds present, Soft to palpation, non-tender, No hepatosplenomegaly present and no masses PALPATION: Yes Soft to palpation and Yes No hepatosplenomegaly present Neuro: COMMON NORMALS: patient oriented x3 SENSORIUM/ORIENTATION: Yes alert MENINGEAL SIGNS: Yes no meningeal signs Course 2 Vital Signs: Vital signs: Vital Signs Temperature 98.5 F 11/15/23 20:15 Pulse Rate 99 11/15/23 22:42 Respiratory Rate 16 11/15/23 20:15 Blood Pressure 149/95 11/15/23 22:42 Pulse Oximetry 90 11/15/23 22:42 MDM - General Adult Medical Decision Making Patient presents to the ER with complaints of high blood sugar. Lab work was obtained which revealed a blood sugar of 412. Patient was given 10 units subcu of insulin. Patient's blood sugar anticipated will go down patient be discharged home. It was noted that patient was noncompliant with his diet and drink chocolate milk and ate [place]ian fries and a hamburger today. Differential Diagnosis Hyperglycemia secondary to diabetes Lab Data 11/15/23 20:27 11/15/23 20: Laboratory Results WBC 4.98 10^3/uL (3.29-11.43) 11/15/23 20: RBC 5.51 10^6/uL (3.85-5.65) 11/15/23 20: Hgb 16.50 g/dL (11.27-16.99) 11/15/23 20: Hct 48.1 % (37-53) 11/15/23 20: MCV 87.3 fl (82-101) 11/15/23 20: MCH 29.9 pg (27-33) 11/15/23 20: MCHC 34.3 g/dL (30-55) 11/15/23 20: RDW 13.9 % (12.1-15.1) 11/15/23 20: Plt Count 245 10^3/cmm (157-399) 11/15/23 20: MPV 10.5 fL (7.4-10.4) H 11/15/23 20: Neut % (Auto) 42.0 % 11/15/23 20: Lymph % (Auto) 47.8 % 11/15/23 20: Iron % (Auto) 8.4 % 11/15/23 20: Eos % (Auto) 0.6 % 11/15/23 20: Baso % (Auto) 0.6 % 11/15/23: Neut # (Auto) 2.09 10^3/uL (1.8-7.7) 11/15/23: Lymph # (Auto) 2.4 10^3/uL (0.8-4.8) 11/15/23: Iron # (Auto) 0.4 10^3/uL (0.2-0.9) 11/15/23 20: Eos # (Auto) 0.0 10^3/uL (0.0-0.8) 11/15/23: Baso # (Auto) 0.0 10^3/uL (0.0-0.1) 11/15/23: Nucleated RBC % (auto) 0 % 11/15/23: Nucleated RBCs # 0.0 /100WBC 11/15/23 20: Sodium 134 mmol/L (136-145) L 11/15/23 20: Potassium 4.1 mmol/L (3.5-5.1) 11/15/23 20: Chloride 97 mmol/L (98-107) L 11/15/23 20: Carbon Dioxide 22 mmol/L (22-29) 11/15/23 20: Anion Gap 19.1 (5-19) H 11/15/23 20: BUN 18 mg/dL (6-20) 11/15/23 20: Creatinine 0.9 mg/dL (0.7-1.2) 11/15/23 20: GFR Calculation 91.7 mL/min (90-130) 11/15/23 20:27 Glucose 412 mg/dL (65-115) H 11/15/23 20:27 POC Glucose 358 mg/dL (70-110) H 11/15/23 22:32 Calculated Osmolality 297 mOsm/kg (285-295) H 11/15/23 20:27 Calcium 9.6 mg/dL (8.5-10.5) 11/15/23 20:27 Total Bilirubin 0.2 mg/dL (0.15-1.2) 11/15/23 20: AST 11 U/L (0-40) 11/15/23 20: ALT 12 U/L (0-41) 11/15/23 20: Alkaline Phosphatase 87 U/L (40-130) 11/15/23 20: Total Protein 6.8 g/dL (6.6-8.7) 11/15/23 20: Albumin 4.2 g/dL (3.5-5.2) 11/15/23 20: Globulin 2.6 g/dL (1.3-4.6) 11/15/23 20:27 All radiology interpretation(s) finalized by discharge Discharge Plan Discharge Patient Disposition: Home Clinical Impression: Diabetes mellitus with hyperglycemia Qualifiers: Diabetes mellitus type: type 2 Diabetes mellitus retirement insulin use: u nspecified tray packer insulin use status Qualified Code(s): E11.65 - Type 2 diabetes mellitus with hyperglycemia Condition: Stable Prescriptions: No Action gabapentin [Neurontin] 300 mg capsule 300 mg PO BID atorvastatin 40 mg tablet 40 mg PO BEDTIME aripiprazole 30 mg tablet 15 mg PO BID 30 Days Qty: 30 3RF divalproex 500 mg tablet extended release 24 hr 2,000 mg PO BEDTIME 30 Days Qty: 120 4RF venlafaxine 75 mg capsule,extended release 24hr 225 mg PO DAILY 30 Days Qty: 90 3RF ciclopirox 0.77 % cream 1 applic topical DAILY 28 Days Qty: 90 0RF olanzapine 5 mg tablet,disintegrating 5 mg PO DAILY Qty: 30 2RF Rx Instructions: Take one tablet daily at 5 PM diazepam 5 mg tablet 5 mg PO .COMPLEX Qty: 60 1RF Rx Instructions: Take one tablet by mouth every morning, and one tablet daily at 1 PM, if needed Mounjaro 10 mg/0.5 mL pen injector 10 mg SUBCUT Q7D 30 Days Qty: 2.5 0RF Rx Instructions: 10mg weekly x one month Mounjaro 12.5 mg/0.5 mL pen injector 12.5 mg SUBCUT Q7D 30 Days Qty: 2.5 0RF Rx Instructions: 12.5 weekly x one month Mounjaro 15 mg/0.5 mL pen injector 15 mg SUBCUT Q7D 90 Days Qty: 6.5 0RF Rx Instructions: 15mg weekly insulin lispro [Humalog KwikPen Insulin] 100 unit/mL insulin pen See Rx Instructions .ROUTE .COMPLEX Qty: 15 0RF Dose Instruction: INJECT FOUR UNITS SUBCUTANEOUSLY EVERY 6 HOURS NEEDED FOR BG ABOVE 400 Rx Instructions: INJECT FOUR UNITS SUBCUTANEOUSLY EVERY 6 HOURS NEEDED FOR BG ABOVE 400 metoprolol succinate 25 mg tablet extended release 24 hr 25 mg PO DAILY Qty: 90 0RF olanzapine 5 mg tablet,disintegrating 5 mg PO DAILY PRN (Reason: agitation) Qty: 30 0RF Rx Instructions: One tablet once daily, if needed for agitation (DME) Dexcom G6 Planner Chief Misc See Rx Instructions .ROUTE .MEDSUPPLY Qty: 1 0RF Rx Instructions: as directed metformin 500 mg tablet extended release 24 hr 1,000 mg PO BID Qty: 360 0RF promethazine-DM 6.25-15 mg/5 mL syrup 5 ml PO Q6H PRN (Reason: Cough) aspirin 81 mg tablet,delayed release (DR/EC) 81 mg PO DAILY Pain Reliever (acetaminophen) 500 mg tablet 1,000 mg PO Q6H PRN (Reason: Pain) albuterol sulfate 90 mcg/actuation HFA aerosol inhaler 2 puff INHALATION Q4H PRN (Reason: Shortness Of Breath Or Wheezing) cetirizine 10 mg Capsule 10 mg PO BEDTIME PRN (Reason: Allergy Symptoms) Eliquis 5 mg tablet 5 mg PO BID Jardiance 25 mg tablet 25 mg PO DAILY bismuth subsalicylate [Stomach Relief] 262 mg/15 mL suspension 262 mg PO Q4H PRN (Reason: Indigestion) irbesartan 150 mg tablet 150 mg PO DAILY Discharge Orders: Discharge ED (Routine); Ordered 11/15/23 Ordered By: Deep Swann Referrals: Bautista Ruiz MD [Primary Care Provider] - 1 week Patient Instructions: Diabetic Hyperglycemia (ED) Activity Restrictions/Additional Instructions: Please keep an eye on your blood sugar. Please try to eat less sweets and carbohydrates as this will raise your blood sugar. Please follow-up with your family practice physician within the next 7 days for further evaluation and treatment. Coding Level of Care Code ED Ear Muff Assembler for Dasha Nix
[2023-11-15 22:04] LABS: Glucose Point of Care 369 mg/dL (70-110)
[2023-11-15] MEDS: insulin lispro 100 unit/1 mL 10 UNIT SUBCUT (22:17)
[2023-11-15 22:35] LABS: Glucose Point of Care 358 mg/dL (70-110)
[2023-11-15 22:42] VITALS: BP 149/95; PULSE 99; O2SAT 90
== END 2023-11-15 22:45 | disposition home or self-care (01) ==
PROVIDERS: Emergency Medicine; Emergency Provider Emergency Medicine; PCP Family Medicine
DX: E11.65 Type 2 diabetes mellitus with hyperglycemia (principal); E11.42 Type 2 diabetes mellitus with diabetic polyneuropathy; E78.5 Hyperlipidemia, unspecified; I10 Essential (primary) hypertension; Z72.0 Tobacco use; Z79.4 Long term (current) use of insulin; Z79.84 Long term (current) use of oral hypoglycemic drugs; Z79.82 Long term (current) use of aspirin; Z79.01 Long term (current) use of anticoagulants
CPT/HCPCS: 36415; 36416; 80053; 82962; 85025; 96372; 99284; J1815

== ENCOUNTER 2023-11-27 23:33 | Emergency (ER) | payer MEDICARE, MEDICAID, SELFPAY ==
[2023-11-27 23:34] VITALS: BP 170/98; PULSE 88; RESP 18; TEMP 36.7; O2SAT 97; BMI 31.6
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
[2023-11-27 23:44] LABS: Glucose Point of Care 393 mg/dL (70-110)
[2023-11-27 23:59] LABS: Basophils % 0.3 %; Eosinophils # 0.1 10^3/uL (0.0-0.8); Eosinophils % 0.9 %; Hematocrit 48.1 % (37-53); Lymphocytes # 2.7 10^3/uL (0.8-4.8); Lymphocytes % 45.9 %; Mean Corpuscular HGB Conc 33.9 g/dL (30-55); Mean Corpuscular Hemoglobin 29.6 pg (27-33); Mean Corpuscular Volume 87.5 fl (82-101); Mean Platelet Volume 10.9 fL (7.4-10.4); Monocytes # 0.4 10^3/uL (0.2-0.9); Monocytes % 6.9 %; Neutrophils # 2.64 10^3/uL (1.8-7.7); Neutrophils % 45.8 %; Nucleated Red Blood Cells % 0 %; Platelet Count 171 10^3/cmm (157-399); Red Cell Distribution Width 13.4 % (12.1-15.1); White Blood Count 5.77 10^3/uL (3.29-11.43)
[2023-11-28] MEDS: sodium chloride 0.9% 1,000 ML 999 ML IV (00:05)
[2023-11-28 00:19] LABS: Alanine Aminotransferase 16 U/L (0-41); Alkaline Phosphatase 80 U/L (40-130); Aspartate Amino Transferase 9 U/L (0-40); Blood Urea Nitrogen 25 mg/dL (6-20); Calcium 9.2 mg/dL (8.5-10.5); Carbon Dioxide 25 mmol/L (22-29); Chloride 96 mmol/L (98-107); Creatinine Clr Calc Pharmacy 152.4747; Globulin 2.6 g/dL (1.3-4.6); Glucose 382 mg/dL (65-115); Lipase 31 U/L (13-60); Osmolality Calculated 298 mOsm/kg (285-295); Sodium 134 mmol/L (136-145); Total Bilirubin 0.2 mg/dL (0.15-1.2); Total Protein 6.6 g/dL (6.6-8.7)
[2023-11-28 00:20] LABS: Ketone (Acetest) Serum Negative (Negative)
[2023-11-28] MEDS: insulin regular-human 100 units/1 mL 10 UNIT IVP (00:41)
[2023-11-28 01:10] LABS: Glucose Point of Care 284 mg/dL (70-110)
[2023-11-28 01:24] VITALS: BP 143/92; PULSE 99; RESP 18; O2SAT 100
== END 2023-11-28 01:26 | disposition home or self-care (01) ==
PROVIDERS: Emergency Provider Physician Assistant; PCP Family Medicine
DX: E11.65 Type 2 diabetes mellitus with hyperglycemia (principal); Z79.01 Long term (current) use of anticoagulants; Z79.82 Long term (current) use of aspirin; Z79.85 Long-term (current) use of injectable non-insulin antidiabetic drugs; Z79.84 Long term (current) use of oral hypoglycemic drugs; E11.42 Type 2 diabetes mellitus with diabetic polyneuropathy; E78.5 Hyperlipidemia, unspecified; I10 Essential (primary) hypertension; F17.290 Nicotine dependence, other tobacco product, uncomplicated; E11.9 Type 2 diabetes mellitus without complications; Z79.4 Long term (current) use of insulin
CPT/HCPCS: 36415; 36416; 80053; 82009; 82962; 83690; 85025; 96361; 96374; 99214; 99284; J1815; J7030

== ENCOUNTER → 2023-11-28 11:27 | Outpatient (BNVA) | payer MEDICARE, MEDICAID, SELFPAY | PROVIDERS: PCP Family Medicine; Visit Provider Internal Medicine | DX: E11.9 Type 2 diabetes mellitus without complications (principal); Z79.4 Long term (current) use of insulin; E78.5 Hyperlipidemia, unspecified; Z79.84 Long term (current) use of oral hypoglycemic drugs | CPT/HCPCS: 99214 ==

== ENCOUNTER 2023-12-10 01:14 | Emergency (ER) | payer MEDICARE, MEDICAID, SELFPAY ==
[2023-12-10 01:15] VITALS: BP 147/108; PULSE 123; RESP 16; TEMP 36.6; O2SAT 90; BMI 35.6
[2023-12-10 01:22] LABS: Glucose Point of Care 526 mg/dL (70-110)
[2023-12-10 01:37] VITALS: BP 147/108; PULSE 112; RESP 20; O2SAT 87
[2023-12-10 01:49] VITALS: BP 147/108; PULSE 110; RESP 16; O2SAT 90
[2023-12-10] MEDS: insulin regular-human 100 units/1 mL 12 UNIT IVP (01:55)
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
[2023-12-10 01:58] LABS: Basophils % 0.6 %; Eosinophils # 0.1 10^3/uL (0.0-0.8); Eosinophils % 0.9 %; Hematocrit 47.7 % (37-53); Lymphocytes # 2.6 10^3/uL (0.8-4.8); Lymphocytes % 48.8 %; Mean Corpuscular HGB Conc 34.2 g/dL (30-55); Mean Corpuscular Volume 87.8 fl (82-101); Mean Platelet Volume 10.8 fL (7.4-10.4); Monocytes # 0.5 10^3/uL (0.2-0.9); Monocytes % 8.6 %; Neutrophils # 2.19 10^3/uL (1.8-7.7); Neutrophils % 40.7 %; Nucleated Red Blood Cells % 0 %; Platelet Count 240 10^3/cmm (157-399); Red Blood Count 5.43 10^6/uL (3.85-5.65); Red Cell Distribution Width 13.5 % (12.1-15.1); White Blood Count 5.37 10^3/uL (3.29-11.43)
[2023-12-10] MEDS: sodium chloride 0.9% 1,000 ML 999 ML IV (01:59)
[2023-12-10 02:02] LABS: Ketone (Acetest) Serum Negative (Negative)
--- NOTE | 2023-12-10 02:04 | W.ED.SYNCOPE ---
HPI - Syncope General: Chief Complaint: Syncope Stated Complaint: FALL Time Seen by Provider: 12/10/23 01:29 History of Present Illness: 43-year-old male with poorly controlled diabetes. He presents with elevated blood sugar this morning. Evidently, he fell sometime after 10 PM, striking his forehead. He is anticoagulated. He complains of a mild headache. He was not knocked unconscious. He did not seize. He complains of some ongoing epigastric discomfort as well of note, his blood sugar was 526. Associated symptoms: Reports abdominal pain, headache(s) and nausea; Deny chest pain or fever(s) Review of Systems Const: Denies: fever(s) Eyes: Denies: change in vision Card: Denies: chest pain Resp: Denies: dyspnea GI: Reports: abdominal pain and nausea; Denies: vomiting Musc: Denies: neck pain Neuro: Reports: headache(s) and dizziness; Denies: numbness in extremities or weakness in extremities [facility] ED PFSH: Medical History Coronary-myocardial bridge Peripheral neuropathy Type 2 diabetes mellitus Hyperlipidemia Hypertension Pulmonary embolism Other reactions to severe stress Bipolar 1 disorder Most recent episode depressed Fracture of [facility] Surgical History History of appendectomy Social History Smoking and tobacco/nicotine status: current every day tobacco/nicotine user e-cigarettes Alcohol intake: current Alcohol intake frequency: few times a month Substance/Drug Use: never Marital status: Single Physical Exam Const: COMMON NORMALS: no acute distress GENERAL APPEARANCE: cooperative; not ill appearing HENMT: COMMON NORMALS: normocephalic and Normal external nose present HEAD & SCALP: normocephalic FACE & SINUS: abrasion, ecchymosis and edema (Central forehead) NOSE: Normal external nose present and Normal nares present Eye: COMMON NORMALS: Equal, round and reactive pupils present and EOMs intact bilaterally PUPIL: Yes Equal, round and reactive pupils present Neck/C-Spine: COMMON NORMALS: full ROM GENERAL: No anterior neck swelling Chest: CHEST: Yes Symmetrical chest wall rise Resp: COMMON NORMALS: clear to auscultation bilaterally EFFORT & INSPECTION: Yes symmetric chest movement AUSCULTATION: clear to auscultation bilaterally Cardio: COMMON NORMALS: regular rate and regular rhythm RATE: regular rate RHYTHM: regular rhythm GI: COMMON NORMALS: Normal to inspection, nondistended, normoactive bowel sounds present and Soft to palpation PALPATION: Yes Soft to palpation and Yes Tenderness to palpation present (GI) (Mild epigastric) Extremity: OTHER: Atraumatic Neuro: MALINDA COMA SCALE: document GCS findings [place] coma scale eye opening: Spontaneous [place] coma scale verbal response: Orientated [place] coma scale motor response: Obey commands [place] coma scale total score: 15 Psych: COMMON NORMALS: mental status grossly normal ATTITUDE: Yes calm Course Vital Signs: Vital signs: Vital Signs Temperature 97.8 F 12/10/23 01:15 Pulse Rate 110 H 12/10/23 01:49 Respiratory Rate 16 12/10/23 01:49 Blood Pressure 147/108 12/10/23 01:49 Pulse Oximetry 90 12/10/23 01:49 Oxygen Delivery Me thod Nasal Cannula 12/10/23 01:49 Oxygen Flow Rate 2 12/10/23 01:49 MDM - Syncope Medical Decision Making Blood sugar now 253 after IV insulin. He is receiving some fluid as well. CBC is normal. Blood sugar on glucose testing of serum is 414 prior to insulin. Head CT does not reveal traumatic bleeding or swelling. He will be allowed discharge. Lab Data 12/10/23 01:30 12/10/23 01:30 Laboratory Results WBC 5.37 10^3/uL (3.29-11.43) 12/10/23 01:30 RBC 5.43 10^6/uL (3.85-5.65) 12/10/23 01:30 Hgb 16.30 g/dL (11.27-16.99) 12/10/23 01:30 Hct 47.7 % (37-53) 12/10/23 01:30 MCV 87.8 fl (82-101) 12/10/23 01:30 MCH 30.0 pg (27-33) 12/10/23 01:30 MCHC 34.2 g/dL (30-55) 12/10/23 01:30 RDW 13.5 % (12.1-15.1) 12/10/23 01:30 Plt Count 240 10^3/cmm (157-399) 12/10/23 01:30 MPV 10.8 fL (7.4-10.4) H 12/10/23 01:30 Neut % (Auto) 40.7 % 12/10/23 01:30 Lymph % (Auto) 48.8 % 12/10/23 01:30 [place] % (Auto) 8.6 % 12/10/23 01:30 Eos % (Auto) 0.9 % 12/10/23 01:30 Baso % (Auto) 0.6 % 12/10/23 01:30 Neut # (Auto) 2.19 10^3/uL (1.8-7.7) 12/10/23 01:30 Lymph # (Auto) 2.6 10^3/uL (0.8-4.8) 12/10/23 01:30 [place] # (Auto) 0.5 10^3/uL (0.2-0.9) 12/10/23 01:30 Eos # (Auto) 0.1 10^3/uL (0.0-0.8) 12/10/23 01:30 Baso # (Auto) 0.0 10^3/uL (0.0-0.1) 12/10/23 01:30 Nucleated RBC % (auto) 0 % 12/10/23 01:30 Nucleated RBCs # 0.0 /100WBC 12/10/23 01:30 Sodium 134 mmol/L (136-145) L 12/10/23 01:30 Potassium 4.8 mmol/L (3.5-5.1) 12/10/23 01:30 Chloride 95 mmol/L (98-107) L 12/10/23 01:30 Carbon Dioxide 26 mmol/L (22-29) 12/10/23 01:30 Anion Gap 17.8 (5-19) 12/10/23 01:30 BUN 16 mg/dL (6-20) 12/10/23 01:30 Creatinine 0.7 mg/dL (0.7-1.2) 12/10/23 01:30 GFR Calculation 122.5 mL/min (90-130) 12/10/23 01:30 Glucose 414 mg/dL (65-115) H 12/10/23 01:30 POC Glucose 253 mg/dL (70-110) H 12/10/23 02:33 Calculated Osmolality 297 mOsm/kg (285-295) H 12/10/23 01:30 Calcium 9.6 mg/dL (8.5-10.5) 12/10/23 01:30 Phosphorus 3.3 mg/dL (2.5-4.5) 12/10/23 01:30 Magnesium 1.8 mg/dL (1.7-2.3) 12/10/23 01:30 Total Bilirubin 0.2 mg/dL (0.15-1.2) 12/10/23 01:30 AST 21 U/L (0-40) 12/10/23 01:30 ALT 23 U/L (0-41) 12/10/23 01:30 Alkaline Phosphatase 95 U/L (40-130) 12/10/23 01:30 Total Protein 6.7 g/dL (6.6-8.7) 12/10/23 01:30 Albumin 4.0 g/dL (3.5-5.2) 12/10/23 01:30 Globulin 2.7 g/dL (1.3-4.6) 12/10/23 01:30 Serum Ketones Negative (Negative) 12/10/23 01:30 All radiology interpretation(s) finalized by discharge Discharge Plan Discharge Patient Disposition: Home Clinical Impression: Diabetes mellitus with hyperglycemia, Concussion Condition: Stable Prescriptions: No Action gabapentin [Neurontin] 300 mg capsule 300 mg PO BID atorvastatin 40 mg tablet 40 mg PO BEDTIME Mounjaro 10 mg/0.5 mL pen injector 10 mg SUBCUT Q7D 30 Days Qty: 2.5 0RF Rx Instructions: 10mg weekly x one month pioglitazone 45 mg tablet 45 mg PO DAILY Qty: 30 0RF glucagon HCl [Glucagon (HCl) Emergency Kit] 1 mg recon soln 1 mg SUBCUT Q20M PRN (Reason: hypoglycemia) Qty: 1 0RF Rx Instructions: until target blood sugar attained insulin lispro [Humalog KwikPen Insulin] 100 unit/mL insulin pen 10 unit SUBCUT TID PRN (Reason: as needed for sugars above 400) Qty: 27 0RF Rx Instructions: 10 PRN for sugars above 400 venlafaxine 75 mg capsule,extended release 24hr 225 mg PO DAILY 30 Days Qty: 90 1RF Rx Instructions: Take three capsules by mouth every morning divalproex 500 mg tablet extended release 24 hr 2,000 mg PO BEDTIME 30 Days Qty: 120 1RF Rx Instructions: Take four tablets daily at bedtime aripiprazole 30 mg tablet 15 mg PO BID 30 Days Qty: 30 1RF Rx Instructions: Take one-half tablet by mouth every morning and at bedtime olanzapine 5 mg tablet,disintegrating 5 mg PO DAILY PRN (Reason: agitation/anxiety) Qty: 30 1RF Rx Instructions: Take 1 tablet daily in evening(after 5 PM up until bedtime),if needed diazepam 5 mg tablet 5 mg PO BID Qty: 60 1RF Rx Instructions: Take one tablet by mouth every morning and every afternoon at 1 PM Mounjaro 12.5 mg/0.5 mL pen injector 12.5 mg SUBCUT Q7D 30 Days Qty: 2.5 0RF Rx Instructions: 12.5 weekly x one month Mounjaro 15 mg/0.5 mL pen injector 15 mg SUBCUT Q7D 90 Days Qty: 6.5 0RF Rx Instructions: 15mg weekly metoprolol succinate 25 mg tablet extended release 24 hr 25 mg PO DAILY Qty: 90 0RF (DME) Dexcom G6 [employer] Misc See Rx Instructions .ROUTE .MEDSUPPLY Qty: 1 0RF Rx Instructions: as directed metformin 500 mg tablet extended release 24 hr 1,000 mg PO BID Qty: 360 0RF promethazine-DM 6.25-15 mg/5 mL syrup 5 ml PO Q6H PRN (Reason: Cough) aspirin 81 mg tablet,delayed release (DR/EC) 81 mg PO DAILY Pain Reliever (acetaminophen) 500 mg tablet 1,000 mg PO Q6H PRN (Reason: Pain) albuterol sulfate 90 mcg/actuation HFA aerosol inhaler 2 puff INHALATION Q4H PRN (Reason: Shortness Of Breath Or Wheezing) cetirizine 10 mg Capsule 10 mg PO BEDTIME PRN (Reason: Allergy Symptoms) Eliquis 5 mg tablet 5 mg PO BID Jardiance 25 mg tablet 25 mg PO DAILY bismuth subsalicylate [Stomach Relief] 262 mg/15 mL suspension 262 mg PO Q4H PRN (Reason: Indigestion) irbesartan 150 mg tablet 150 mg PO DAILY Discharge Orders: Discharge ED (Routine); Ordered 12/10/23 Ordered By: Abdiel Garcia Referrals: Bautista Ruiz MD [Primary Care Provider] - 4-7 days Patient Instructions: Concussion (ED), Diabetic Hyperglycemia (ED), Opioid Safety, Pain Management Activity Restrictions/Additional Instructions: Watch your blood sugar closely. Return for any problems. Coding Level of Care Code ED Body Design Checker for Dasha Nix
[2023-12-10 02:07] LABS: Alkaline Phosphatase 95 U/L (40-130); Blood Urea Nitrogen 16 mg/dL (6-20); Calcium 9.6 mg/dL (8.5-10.5); Carbon Dioxide 26 mmol/L (22-29); Chloride 95 mmol/L (98-107); Globulin 2.7 g/dL (1.3-4.6); Glomerular Filtration Rate 122.5 mL/min (90-130); Glucose 414 mg/dL (65-115); Magnesium 1.8 mg/dL (1.7-2.3); Osmolality Calculated 297 mOsm/kg (285-295); Phosphorus 3.3 mg/dL (2.5-4.5); Sodium 134 mmol/L (136-145); Total Bilirubin 0.2 mg/dL (0.15-1.2); Total Protein 6.7 g/dL (6.6-8.7)
[2023-12-10 02:10] LABS: Alanine Aminotransferase 23 U/L (0-41); Anion Gap 17.8 (5-19); Aspartate Amino Transferase 21 U/L (0-40); Potassium 4.8 mmol/L (3.5-5.1)
[2023-12-10 02:37] LABS: Glucose Point of Care 253 mg/dL (70-110)
[2023-12-10] MEDS: ketorolac 30 mg/mL INJ IVP (03:03)
[2023-12-10 03:04] VITALS: RESP 18; O2SAT 87
[2023-12-10] MEDS: morphine 4 mg/mL SDV 1 mL IVP (03:04)
[2023-12-10 03:06] VITALS: BP 163/116; PULSE 111; RESP 18; O2SAT 92
[2023-12-10 03:17] VITALS: BP 128/74; PULSE 115; RESP 18; O2SAT 90
== END 2023-12-10 03:18 | disposition home or self-care (01) ==
PROVIDERS: Emergency Provider Emergency Medicine; PCP Family Medicine
DX: E11.65 Type 2 diabetes mellitus with hyperglycemia (principal); S06.0XAA Concussion with loss of consciousness status unknown, initial encounter; Z79.4 Long term (current) use of insulin; Z79.84 Long term (current) use of oral hypoglycemic drugs; Z79.82 Long term (current) use of aspirin; Z79.01 Long term (current) use of anticoagulants; F17.290 Nicotine dependence, other tobacco product, uncomplicated; E11.42 Type 2 diabetes mellitus with diabetic polyneuropathy; E78.5 Hyperlipidemia, unspecified; I10 Essential (primary) hypertension; W19.XXXA Unspecified fall, initial encounter
CPT/HCPCS: 36416; 70450; 80053; 82009; 82962; 83735; 84100; 85025; 96361; 96374; 96375; 99285; J1815; J1885; J2270; J7030

== ENCOUNTER → 2023-12-11 08:39 | Outpatient (BNVA) | payer MEDICARE, MEDICAID, SELFPAY | PROVIDERS: PCP Family Medicine; Visit Provider Podiatrist Foot & Ankle Surgery | DX: L60.3 Nail dystrophy (principal); E11.9 Type 2 diabetes mellitus without complications; Z79.4 Long term (current) use of insulin; Z79.84 Long term (current) use of oral hypoglycemic drugs | CPT/HCPCS: 99213 ==

== ENCOUNTER 2023-12-31 03:55 | Emergency (ER) | payer MEDICARE, MEDICAID, SELFPAY ==
[2023-12-31] VITALS (9 sets, daily range): BP systolic 93–132; BP diastolic 54–96; PULSE 97–119; RESP 16; TEMP 36.6; O2SAT 90–97; BMI 37.3
[2023-12-31 04:05] LABS: Glucose Point of Care 66 mg/dL (70-110)
[2023-12-31 04:54] LABS: Glucose Point of Care 80 mg/dL (70-110)
[2023-12-31 05:11] LABS: Glucose Point of Care 69 mg/dL (70-110)
[2023-12-31 05:50] LABS: Glucose Point of Care 59 mg/dL (70-110)
[2023-12-31] MEDS: dextrose 10% 250 ML 1000 ML IV ×2 (06:04→07:16)
[2023-12-31 06:06] LABS: Glucose Point of Care 62 mg/dL (70-110)
--- NOTE | 2023-12-31 06:12 | ED_ITS ---
HPI - Recheck/Abnormal Lab/Rx General: Chief Complaint: Recheck/Abnormal Lab/Rx Stated Complaint: LOW BG Time Seen by Provider: 12/31/23 05:01 History of Present Illness: 43-year-old male patient well-known to [facility] emergency department service. He presents with hypoglycemia which is a common chief complaint for this patient. The patient was given sugary products to eat at home which increased the sugar to some degree. He is feeling mildly nauseated. He reports having diarrhea the last few days. No fever, no vomiting. He has not had any insulin in several days. He continues his Jardiance and metformin. Review of Systems Const: Denies: fever(s) Card: Denies: chest pain Resp: Denies: dyspnea GI: Reports: nausea and diarrhea; Denies: abdominal pain or vomiting [facility] ED PFSH: Medical History Coronary-myocardial bridge Peripheral neuropathy Type 2 diabetes mellitus Hyperlipidemia Hypertension Pulmonary embolism Other reactions to severe stress Bipolar 1 disorder Most recent episode depressed [facility] Surgical History History of appendectomy Social History Smoking and tobacco/nicotine status: current every day tobacco/nicotine user e- cigarettes Alcohol intake: current Alcohol intake frequency: few times a month Substance/Drug Use: never Marital status: Single Physical Exam Const: COMMON NORMALS: no acute distress GENERAL APPEARANCE: cooperative; not ill appearing and not frail appearing HENMT: COMMON NORMALS: normocephalic, atraumatic and Normal external nose present HEAD & SCALP: normocephalic and atraumatic FACE & SINUS: normal facial exam and face symmetric NOSE: Normal external nose present Eye: COMMON NORMALS: Equal, round and reactive pupils present and EOMs intact bilaterally PUPIL: Yes Equal, round and reactive pupils present Neck/C-Spine: GENERAL: Yes trachea midline Chest: CHEST: Yes Symmetrical chest wall rise Resp: COMMON NORMALS: normal respiratory effort, No retractions, No use of accessory muscles and clear to auscultation bilaterally AUSCULTATION: clear to auscultation bilaterally Cardio: COMMON NORMALS: regular rate and regular rhythm RATE: regular rate RHYTHM: regular rhythm GI: COMMON NORMALS: Normal to inspection, nondistended, normoactive bowel sounds present Extremity: COMMON NORMALS: no pedal edema Neuro: MALINDA COMA SCALE: document GCS findings [place] coma scale eye opening: Spontaneous [place] coma scale verbal response: Orientated [place] coma scale motor response: Obey commands [place] coma scale total score: 15 SENSORY EXAM: Yes extremities (intact) Psych: COMMON NORMALS: speech normal SPEECH: Yes normal speech Skin: COMMON NORMALS: no rashes or lesions noted GENERAL SKIN EXAM: no rashes or lesions noted Course Vital Signs: Vital signs: Vital Signs Temperature 97.9 F 12/31/23 10:55 Pulse Rate 97 12/31/23 10:55 Respiratory Rate 16 12/31/23 10:55 Blood Pressure 132/96 12/31/23 10:55 Pulse Oximetry 95 12/31/23 10:55 Oxygen Delivery Me thod Room Air 12/31/23 09:54 MDM - Recheck/Abnormal Lab/Rx Medical Decision Making 43-year-old male with initial low blood sugar. His blood sugars been in the 60s since he has been here despite eating sugary products. He is infused with 250 mL of D10 with some improvement. He then sank a bit again. He was infused with another 250mL of D10 and given glucagon with signficant improvement. He is en couraged to check his sugar often today. Lab Data Laboratory Results POC Glucose 95 mg/dL (70-110) 12/31/23 10:43 No radiology studies performed this visit Discharge Plan Discharge Patient Disposition: Home Clinical Impression: Hypoglycemia Condition: Stable Prescriptions: No Action gabapentin [Neurontin] 300 mg capsule 300 mg PO BID diazepam 5 mg tablet 5 mg PO BID Qty: 60 1RF Rx Instructions: Take one tablet by mouth every morning and every afternoon at 1 PM aripiprazole 30 mg tablet 15 mg PO BID 30 Days Qty: 30 1RF divalproex 500 mg tablet extended release 24 hr 2,000 mg PO BEDTIME 30 Days Qty: 120 1RF olanzapine 5 mg tablet,disintegrating 5 mg PO DAILY PRN (Reason: agitation/anxiety) Qty: 30 1RF Rx Instructions: Take 1 tablet daily in evening(after 5 PM up until bedtime),if needed metoprolol succinate 25 mg tablet extended release 24 hr 25 mg PO DAILY Qty: 90 0RF (DME) Dexcom G6 Spanish Linguist Misc See Rx Instructions .ROUTE .MEDSUPPLY Qty: 1 0RF Rx Instructions: as directed metformin 500 mg tablet extended release 24 hr 1,000 mg PO BID Qty: 360 0RF glucagon HCl [Glucagon (HCl) Emergency Kit] 1 mg recon soln 1 mg SUBCUT Q20M PRN (Reason: hypoglycemia) Qty: 1 1RF Rx Instructions: until target blood sugar attained insulin lispro [Humalog KwikPen Insulin] 100 unit/mL insulin pen 10 unit SUBCUT TID PRN (Reason: as needed for sugars above 400) Qty: 27 0RF Rx Instructions: 10 PRN for sugars above 400 promethazine-DM 6.25-15 mg/5 mL syrup 5 ml PO Q6H PRN (Reason: Cough) aspirin 81 mg tablet,delayed release (DR/EC) 81 mg PO DAILY acetaminophen [Pain Reliever (acetaminophen)] 500 mg tablet 1,000 mg PO Q6H PRN (Reason: Pain) albuterol sulfate 90 mcg/actuation HFA aerosol inhaler 2 puff INHALATION Q4H PRN (Reason: Shortness Of Breath Or Wheezing) cetirizine 10 mg Capsule 10 mg PO BEDTIME PRN (Reason: Allergy Symptoms) Eliquis 5 mg tablet 5 mg PO BID Jardiance 25 mg tablet 25 mg PO DAILY bismuth subsalicylate [Stomach Relief] 262 mg/15 mL suspension 262 mg PO Q4H PRN (Reason: Indigestion) irbesartan 150 mg tablet 150 mg PO DAILY atorvastatin 80 mg tablet 80 mg PO BEDTIME venlafaxine 75 mg capsule,extended release 24hr 225 mg PO QAM pioglitazone 45 mg tablet 45 mg PO DAILY loperamide 2 mg capsule See Rx Instructions .ROUTE .COMPLEX Rx Instructions: TAKE 2 CAPSULES BY MOUTH FOR ONE DOSE THEN ONE AFTER each loose or watery stool. max of EIGHT capsules PER 24 hours promethazine 25 mg tablet 25 mg PO Q6H PRN (Reason: Nausea And Vomiting) glucose 4 gram Tablet,Chewable 16 g PO PRN PRN (Reason: LOW BLOOD SUGAR) Rx Instructions: for bs lower than 60 Tums 500 500 mg calcium (1,250 mg) Tablet,Chewable 500 mg PO PRN PRN (Reason: Acid Reflux) ibuprofen 600 mg tablet 600 mg PO TID PRN (Reason: Pain) Discharge Orders: Discharge ED (Routine); Ordered 12/31/23 Ordered By: Abdiel Garcia Referrals: Bautista Ruiz MD [Primary Care Provider] - 1-3 days Patient Instructions: Hypoglycemia in a Person with Diabetes (ED) Activity Restrictions/Additional Instructions: Check your blood sugar often today. Try to keep it above 100. Return for continued symptoms of low blood sugar with inability to keep blood sugar up. Call your doctor today. They may wish to make medication changes. Stop using all insulin until you follow-up with Dr. Roman. Coding Level of Care Code ED Rigging Up Worker for Dasha Nix
[2023-12-31 06:31] LABS: Glucose Point of Care 107 mg/dL (70-110)
[2023-12-31 07:14] LABS: Glucose Point of Care 64 mg/dL (70-110)
[2023-12-31] MEDS: glucagon 1 mg/mL KIT 1 mL IVP (07:16)
[2023-12-31 07:44] LABS: Glucose Point of Care 195 mg/dL (70-110)
[2023-12-31 08:50] LABS: Glucose Point of Care 82 mg/dL (70-110)
[2023-12-31 09:43] LABS: Glucose Point of Care 77 mg/dL (70-110)
[2023-12-31 10:03] LABS: Glucose Point of Care 104 mg/dL (70-110)
[2023-12-31 10:47] LABS: Glucose Point of Care 95 mg/dL (70-110)
== END 2023-12-31 10:57 | disposition home or self-care (01) ==
PROVIDERS: Emergency Provider Emergency Medicine; PCP Family Medicine
DX: E11.649 Type 2 diabetes mellitus with hypoglycemia without coma (principal); Z79.01 Long term (current) use of anticoagulants; Z79.82 Long term (current) use of aspirin; Z79.84 Long term (current) use of oral hypoglycemic drugs; Z79.4 Long term (current) use of insulin; E11.42 Type 2 diabetes mellitus with diabetic polyneuropathy; E78.5 Hyperlipidemia, unspecified; I10 Essential (primary) hypertension; F17.290 Nicotine dependence, other tobacco product, uncomplicated
CPT/HCPCS: 36416; 82962; 96374; 99214; 99284; J1610; J7799

== ENCOUNTER 2024-01-27 21:40 | Emergency (ER) | payer MEDICARE, MEDICAID, SELFPAY ==
[2024-01-27 21:52] VITALS: BP 130/82; PULSE 115; RESP 19; TEMP 36.5; O2SAT 94; BMI 38.2
[2024-01-27 21:59] LABS: Glucose Point of Care 456 mg/dL (70-110)
--- NOTE | 2024-01-27 22:29 | W.ED.GENADLT ---
HPI - General Adult General: Chief complaint: General Medical Stated complaint: High Blood Sugar\Pain Urology Time Seen by Provider: 01/27/24 22:29 History of Present Illness: 43-year-old male patient comes in today for complaints of dysuria and elevated blood glucose. Patient has had to use Humalog insulin several times this weekend due to blood sugars being above 600. Patient appears nontoxic. Patient appears no acute distress. Patient uses Humalog alone for his insulin. Patient also uses empagliflozin pioglitazone 40 diabetes. Patient appears nontoxic. Patient lives at an assisted living facility. Review of Systems General: Reports: 10 or more systems reviewed and unremarkable except in HPI and below PFS ED PFSH: Medical History Coronary-myocardial bridge Peripheral neuropathy Type 2 diabetes mellitus Hyperlipidemia Hypertension Pulmonary embolism Other reactions to severe stress Bipolar 1 disorder Most recent episode depressed Fracture of [facility] Psychiatric care Surgical History History of appendectomy Social History Smoking and tobacco/nicotine status: current every day tobacco/nicotine user e-cigarettes Alcohol intake: current Alcohol intake frequency: few times a month Substance/Drug Use: never Marital status: Single Physical Exam Const: COMMON NORMALS: alert HENMT: COMMON NORMALS: normocephalic HEAD & SCALP: normocephalic Neck/C-Spine: COMMON NORMALS: full ROM Chest: COMMONS NORMALS: normal inspection of the chest Resp: COMMON NORMALS: normal respiratory effort Cardio: COMMON NORMALS: regular rate RATE: regular rate GI: COMMON NORMALS: non-tender Extremity: COMMON NORMALS: no pedal edema Neuro: SENSORIUM/ORIENTATION: Yes alert Skin: COMMON NORMALS: turgor normal GENERAL SKIN EXAM: turgor normal Course Vital Signs: Vital signs: Vital Signs Temperature 97.7 F 01/27/24 21:52 Pulse Rate 89 01/27/24 23:56 Respiratory Rate 16 01/27/24 23:56 Blood Pressure 138/81 01/27/24 23:56 Pulse Oximetry 97 01/27/24 23:09 Oxygen Delivery Me thod Room Air 01/27/24 23:[address] [facility] - General Adult Medical Decision Making 43-year-old male patient comes in today with blood glucose that is been above 600 several times this weekend. Patient also reports some dysuria. Patient appears nontoxic. Patient appears in no acute distress. Abdomen soft nontender. No edema is noted in extremities. Differential diagnosis includes but not limited to diabetes mellitus uncontrolled, urinary tract infection, anxiety about health. Patient's CBC was unremarkable. CMP noted glucose of 436 and a sodium 133. Serum ketones was negative. Patient was treated with 10 units of regular insulin IV and 1 L of IV fluids. Blood glucose came down to 314 and patient was discharged to home with recommendations to follow-up with primary care for further evaluation and consideration of medication changes for diabetes. Patient reported understanding of plan and need for follow-up or return to the ER. Lab Data 01/27/24 23:01 01/27/24 23: Laboratory Results WBC 7.33 10^3/uL (3.29-11.43) 01/27/24 23:01 Corrected WBC Cancelled 01/27/24 22:36 RBC 5.58 10^6/uL (3.85-5.65) 01/27/24 23:01 Hgb 16.40 g/dL (11.27-16.99) 01/27/24 23:01 Hct 49.8 % (37-53) 01/27/24 23: MCV 89.2 fl (82-101) 01/27/24 23: MCH 29.4 pg (27-33) 01/27/24 23: MCHC 32.9 g/dL (30-55) 01/27/24 23: RDW 12.8 % (12.1-15.1) 01/27/24 23: Plt Count 200 10^3/cmm (157-399) 01/27/24 23:01 MPV 11.0 fL (7.4-10.4) H 01/27/24 23:01 Gran % Cancelled 01/27/24 22:36 Neut % (Auto) 51.5 % 01/27/24 23:01 Lymph % (Auto) 39.7 % 01/27/24 23:01 Mcclain % (Auto) 6.8 % 01/27/24 23: Eos % (Auto) 1.2 % 01/27/24 23: Baso % (Auto) 0.4 % 03/24/24 23:01 Neut # (Auto) 3.77 10^3/uL (1.8-7.7) 01/27/24 23:01 Lymph # (Auto) 2.9 10^3/uL (0.8-4.8) 01/27/24 23:01 Mcclain # (Auto) 0.5 10^3/uL (0.2-0.9) 01/27/24 23:01 Eos # (Auto) 0.1 10^3/uL (0.0-0.8) 01/27/24 23:01 Baso # (Auto) 0.0 10^3/uL (0.0-0.1) 01/27/24 23:01 Absolute Gran (auto) Cancelled 01/27/24 22:36 Nucleated RBC % (auto) 0 % 01/27/24 23:01 Nucleated RBCs # 0.0 /100WBC 01/27/24 23:01 Sodium 133 mmol/L (136-145) L 01/27/24 23:01 Potassium 4.2 mmol/L (3.5-5.1) 01/27/24 23:01 Chloride 93 mmol/L (98-107) L 01/27/24 23:01 Carbon Dioxide 28 mmol/L (22-29) 01/27/24 23:01 Anion Gap 16.2 (5-19) 01/27/24 23:01 BUN 25 mg/dL (6-20) H 01/27/24 23:01 Creatinine 0.9 mg/dL (0.7-1.2) 01/27/24 23:01 GFR Calculation 91.7 mL/min (90-130) 01/27/24 23:01 Glucose 436 mg/dL (65-115) H 01/27/24 23:01 POC Glucose 321 mg/dL (70-110) H 01/27/24 23:47 Calculated Osmolality 299 mOsm/kg (285-295) H 01/27/24 23:01 Calcium 9.3 mg/dL (8.5-10.5) 01/27/24 23:01 Total Bilirubin 0.3 mg/dL (0.15-1.2) 01/27/24 23:01 AST 11 U/L (0-40) 01/27/24 23:01 ALT 23 U/L (0-41) 01/27/24 23:01 Alkaline Phosphatase 106 U/L (40-130) 01/27/24 23:01 Total Protein 6.4 g/dL (6.6-8.7) L 01/27/24 23:01 Albumin 3.9 g/dL (3.5-5.2) 01/27/24 23:01 Globulin 2.5 g/dL (1.3-4.6) 01/27/24 23:01 Lipase 31 U/L (13-60) 01/27/24 23:01 Urine Color Colorless (Yellow) 01/27/24 23:04 Urine Appearance Clear (CLEAR) 01/27/24 23:04 Urine pH 7 (5-7) 01/27/24 23:04 Ur Specific Devens 1.000 (1.005-1.030) L 01/27/24 23:04 Urine Protein Neg (Negative) 01/27/24 23:04 Urine Glucose (UA) 4+ (Normal) H 01/27/24 23:04 Urine Ketones Negative (Negative) 01/27/24 23:04 Urine Blood Neg (Negative) 01/27/24 23:04 Urine Nitrate Negative (Negative) 01/27/24 23:04 Urine Bilirubin Neg (Negative) 01/27/24 23:04 Urine Urobilinogen Neg mg/dL (Negative) 01/27/24 23:04 Ur Leukocyte Esterase Negative (Negative) 01/27/24 23:04 Serum Ketones Negative (Negative) 01/27/24 23:01 No radiology studies performed this visit Discharge Plan Discharge Patient Disposition: Home Clinical Impression: Hyperglycemia due to type 2 diabetes mellitus Qualifiers: Diabetes mellitus chcf insulin use: unspecified chcf insulin use status Qualified Code(s): E11.65 - Type 2 diabetes mellitus with hyperglycemia Condition: Stable Prescriptions: No Action gabapentin [Neurontin] 300 mg capsule 300 mg PO BID aripiprazole 30 mg tablet 15 mg PO BID 30 Days Qty: 30 1RF divalproex 500 mg tablet extended release 24 hr 2,000 mg PO BEDTIME 30 Days Qty: 120 1RF olanzapine 5 mg tablet,disintegrating 5 mg PO DAILY PRN (Reason: agitation/anxiety) Qty: 30 1RF Rx Instructions: Take 1 tablet daily in evening(after 5 PM up until bedtime),if needed metoprolol succinate 25 mg tablet extended release 24 hr 25 mg PO DAILY Qty: 90 0RF (DME) Dexcom G6 Electronic Equipment Installer Misc See Rx Instructions .ROUTE .MEDSUPPLY Qty: 1 0RF Rx Instructions: as directed glucagon HCl [Glucagon (HCl) Emergency Kit] 1 mg recon soln 1 mg SUBCUT Q20M PRN (Reason: hypoglycemia) Qty: 1 1RF Rx Instructions: until target blood sugar attained insulin lispro [Humalog KwikPen Insulin] 100 unit/mL insulin pen 5 unit SUBCUT TID Qty: 15 1RF Rx Instructions: 5units every 4 hours as needed for blood sugars above 400 metformin 1,000 mg tablet 1,000 mg PO DAILY Qty: 90 0RF diazepam 5 mg tablet 5 mg PO BID Qty: 60 1RF Rx Instructions: Take one tablet by mouth every morning and every afternoon at 1 PM pioglitazone 45 mg tablet See Rx Instructions .ROUTE .COMPLEX Qty: 30 0RF Dose Instruction: TAKE 1 TABLET BY MOUTH EVERY DAY Rx Instructions: TAKE 1 TABLET BY MOUTH EVERY DAY Mounjaro 7.5 mg/0.5 mL pen injector See Rx Instructions .ROUTE .COMPLEX Qty: 2 3RF Dose Instruction: INJECT 7.5MG SUBCUTANEOUSLY EVERY 7 DAYS Rx Instructions: INJECT 7.5MG SUBCUTANEOUSLY EVERY 7 DAYS aspirin 81 mg tablet,delayed release (DR/EC) 81 mg PO DAILY acetaminophen [Pain Reliever (acetaminophen)] 500 mg tablet 1,000 mg PO Q6H PRN (Reason: Pain) albuterol sulfate 90 mcg/actuation HFA aerosol inhaler 2 puff INHALATION Q4H PRN (Reason: Shortness Of Breath Or Wheezing) cetirizine 10 mg Capsule 10 mg PO BEDTIME PRN (Reason: Allergy Symptoms) Eliquis 5 mg tablet 5 mg PO BID Jardiance 25 mg tablet 25 mg PO DAILY bismuth subsalicylate [Stomach Relief] 262 mg/15 mL suspension 262 mg PO Q4H PRN (Reason: Indigestion) irbesartan 150 mg tablet 150 mg PO DAILY atorvastatin 80 mg tablet 80 mg PO BEDTIME venlafaxine 75 mg capsule,extended release 24hr 225 mg PO QAM pioglitazone 45 mg tablet 45 mg PO DAILY loperamide 2 mg capsule See Rx Instructions .ROUTE .COMPLEX Rx Instructions: TAKE 2 CAPSULES BY MOUTH FOR ONE DOSE THEN ONE AFTER each loose or watery stool. max of EIGHT capsules PER 24 hours promethazine 25 mg tablet 25 mg PO Q6H PRN (Reason: Nausea And Vomiting) glucose 4 gram Tablet,Chewable 16 g PO PRN PRN (Reason: LOW BLOOD SUGAR) Rx Instructions: for bs lower than 60 Tums 500 500 mg calcium (1,250 mg) Tablet,Chewable 500 mg PO PRN PRN (Reason: Acid Reflux) ibuprofen 600 mg tablet 600 mg PO TID PRN (Reason: Pain) Discharge Orders: Discharge ED (Routine); Ordered 01/27/24 Ordered By: Ho Wagner Referrals: Bautista Ruiz MD [Primary Care Provider] - Discharge Diet: Usual diet Discharge Activity: Increase activity as tolerated Patient Instructions: Diabetic Hyperglycemia (ED) Activity Restrictions/Additional Instructions: Follow-up with primary care to discuss changes in medication for better control of blood sugar. Return to ER as needed. Coding Level of Care Code ED Sales Representative [employer]ing for Dasha Nix
[2024-01-27] MEDS: sodium chloride 0.9% 1,000 ML 999 ML IV (22:37)
[2024-01-27] MEDS: insulin regular-human 100 units/1 mL 10 UNIT IVP (22:38)
[2024-01-27 23:06] LABS: Basophils % 0.4 %; Eosinophils # 0.1 10^3/uL (0.0-0.8); Eosinophils % 1.2 %; Hematocrit 49.8 % (37-53); Lymphocytes # 2.9 10^3/uL (0.8-4.8); Lymphocytes % 39.7 %; Mean Corpuscular HGB Conc 32.9 g/dL (30-55); Mean Corpuscular Hemoglobin 29.4 pg (27-33); Mean Corpuscular Volume 89.2 fl (82-101); Monocytes # 0.5 10^3/uL (0.2-0.9); Monocytes % 6.8 %; Neutrophils # 3.77 10^3/uL (1.8-7.7); Neutrophils % 51.5 %; Nucleated Red Blood Cells % 0 %; Platelet Count 200 10^3/cmm (157-399); Red Blood Count 5.58 10^6/uL (3.85-5.65); Red Cell Distribution Width 12.8 % (12.1-15.1); White Blood Count 7.33 10^3/uL (3.29-11.43)
[2024-01-27 23:09] VITALS: RESP 18; O2SAT 97
[2024-01-27 23:23] LABS: Add Urine Microscopic? NO; Charge for UA Resulting for Rev
[2024-01-27 23:27] LABS: Bilirubin Urine Neg (Negative); Blood Urine Neg (Negative); Glucose Urine UA 4+ (Normal); Ketones Urine Negative (Negative); Leukocyte Esterase Urine Negative (Negative); Nitrate Urine Negative (Negative); Protein Urine Neg (Negative); Urine Appearance Clear (CLEAR); Urine Color Colorless (Yellow); Urobilinogen Urine Neg (Negative); pH Urine 7 (5-7)
[2024-01-27 23:28] LABS: Alanine Aminotransferase 23 U/L (0-41); Albumin Level 3.9 g/dL (3.5-5.2); Alkaline Phosphatase 106 U/L (40-130); Anion Gap 16.2 (5-19); Aspartate Amino Transferase 11 U/L (0-40); Blood Urea Nitrogen 25 mg/dL (6-20); Calcium 9.3 mg/dL (8.5-10.5); Carbon Dioxide 28 mmol/L (22-29); Chloride 93 mmol/L (98-107); Globulin 2.5 g/dL (1.3-4.6); Glomerular Filtration Rate 91.7 mL/min (90-130); Glucose 436 mg/dL (65-115); Lipase 31 U/L (13-60); Osmolality Calculated 299 mOsm/kg (285-295); Potassium 4.2 mmol/L (3.5-5.1); Sodium 133 mmol/L (136-145); Total Bilirubin 0.3 mg/dL (0.15-1.2); Total Protein 6.4 g/dL (6.6-8.7)
[2024-01-27 23:30] LABS: Ketone (Acetest) Serum Negative (Negative)
[2024-01-27 23:51] LABS: Glucose Point of Care 321 mg/dL (70-110)
[2024-01-27 23:56] VITALS: BP 138/81; PULSE 89; RESP 16
== END 2024-01-28 00:03 | disposition home or self-care (01) ==
PROVIDERS: Emergency Provider Nurse Practitioner Family; PCP Family Medicine
DX: E11.65 Type 2 diabetes mellitus with hyperglycemia (principal); Z79.82 Long term (current) use of aspirin; Z79.4 Long term (current) use of insulin; Z79.84 Long term (current) use of oral hypoglycemic drugs; Z79.01 Long term (current) use of anticoagulants; F17.290 Nicotine dependence, other tobacco product, uncomplicated; E11.42 Type 2 diabetes mellitus with diabetic polyneuropathy; E78.5 Hyperlipidemia, unspecified; I10 Essential (primary) hypertension
CPT/HCPCS: 36415; 36416; 80053; 81003; 82009; 82962; 83690; 85025; 96374; 99284; J1815; J7030

== ENCOUNTER → 2024-01-31 09:21 | Outpatient (BNVA) | payer MEDICARE, MEDICAID, SELFPAY | PROVIDERS: PCP Family Medicine; Visit Provider Internal Medicine | DX: E11.9 Type 2 diabetes mellitus without complications (principal); Z79.4 Long term (current) use of insulin; E78.5 Hyperlipidemia, unspecified; Z79.84 Long term (current) use of oral hypoglycemic drugs | CPT/HCPCS: 99214 ==

== ENCOUNTER → 2024-02-15 08:33 | Outpatient (BNVA) | payer MEDICARE, MEDICAID, SELFPAY | PROVIDERS: PCP Family Medicine; Visit Provider Podiatrist Foot & Ankle Surgery | DX: L60.0 Ingrowing nail (principal); E11.69 Type 2 diabetes mellitus with other specified complication; L60.3 Nail dystrophy; Z79.4 Long term (current) use of insulin; Z79.84 Long term (current) use of oral hypoglycemic drugs | CPT/HCPCS: 11750; A6219 ==

== ENCOUNTER → 2024-03-04 13:59 | Outpatient (BNVA) | payer MEDICARE, MEDICAID, SELFPAY | PROVIDERS: PCP Family Medicine; Visit Provider Podiatrist Foot & Ankle Surgery | DX: L60.3 Nail dystrophy (principal); Z79.4 Long term (current) use of insulin; E11.69 Type 2 diabetes mellitus with other specified complication; Z79.84 Long term (current) use of oral hypoglycemic drugs | CPT/HCPCS: 99213 ==

== ENCOUNTER 2024-05-11 13:51 | Emergency (ER) | payer MEDICARE, MEDICAID, SELFPAY ==
[2024-05-11 13:56] VITALS: BP 134/88; PULSE 124; RESP 18; TEMP 36.4; O2SAT 96
[2024-05-11 14:50] LABS: Basophils % 0.3 %; Eosinophils % 0.5 %; Lymphocytes # 2.2 10^3/uL (0.8-4.8); Lymphocytes % 29.4 %; Mean Corpuscular HGB Conc 32.5 g/dL (30-55); Mean Corpuscular Hemoglobin 28.6 pg (27-33); Mean Platelet Volume 10.5 fL (7.4-10.4); Monocytes # 0.5 10^3/uL (0.2-0.9); Monocytes % 6.4 %; Neutrophils # 4.64 10^3/uL (1.8-7.7); Neutrophils % 63.1 %; Nucleated Red Blood Cells % 0 %; Platelet Count 227 10^3/cmm (157-399); Red Blood Count 5.91 10^6/uL (3.85-5.65); Red Cell Distribution Width 14.2 % (12.1-15.1); White Blood Count 7.35 10^3/uL (3.29-11.43)
[2024-05-11 15:12] LABS: Alanine Aminotransferase 16 U/L (0-41); Albumin Level 4.5 g/dL (3.5-5.2); Alkaline Phosphatase 85 U/L (40-130); Anion Gap 14.3 (5-19); Aspartate Amino Transferase 11 U/L (0-40); Blood Urea Nitrogen 20 mg/dL (6-20); Calcium 9.4 mg/dL (8.5-10.5); Carbon Dioxide 30 mmol/L (22-29); Chloride 98 mmol/L (98-107); Globulin 2.2 g/dL (1.3-4.6); Glomerular Filtration Rate 91.7 mL/min (90-130); Glucose 307 mg/dL (65-115); Osmolality Calculated 300 mOsm/kg (285-295); Potassium 4.3 mmol/L (3.5-5.1); Sodium 138 mmol/L (136-145); Total Bilirubin 0.4 mg/dL (0.15-1.2); Total Protein 6.7 g/dL (6.6-8.7)
[2024-05-11 15:17] LABS: Acetaminophen < 5.0 ug/mL (10-30); Alcohol Level < 10 mg/dL (0-10); Salicylate < 0.3 mg/dL (3-10)
[2024-05-11 15:25] LABS: Glucose Point of Care 254 mg/dL (70-110)
--- NOTE | 2024-05-11 15:42 | ED.C_ITS ---
HPI - Psych 2 General: Chief Complaint: Psychiatric Symptoms Stated Complaint: depression/ anxiety Time Seen by Provider: 05/11/24 14:54 History of Present Illness: 43-year-old man with a history of diabet es peripheral neuropathy, hypertension, pulmonary embolism on Eliquis and history of psychiatric issues who presents the emergency room with worsening anxiety and depression. He says he feels like his medications are not working and has been trying to get in with a therapist but does not have an appointment with his psychiatrist for at least a month and the crisis center had been closed all weekend and he felt like he had run out of options. He says he is not homicidal and he is not suicidal. He also says he does not want to be admitted to the hospital he just wants to find someone to talk to. We discussed that the crisis center should be open tomorrow and then if he develops any suicidal or homicidal ideations return to the emergency room. Review of Systems 2 Narrative: Constitutional symptoms: Negative except as documented in HPI. Skin symptoms: Negative except as documented in HPI. Eye symptoms: Negative except as documented in HPI. ENMT symptoms: Negative except as documented in HPI. Respiratory symptoms: Negative except as documented in HPI. Cardiovascular symptoms: Negative except as documented in HPI. Gastrointestinal symptoms: Negative except as documented in HPI. Genitourinary symptoms: Negative except as documented in HPI. Musculoskeletal symptoms: Negative except as documented in HPI. Neurologic symptoms: Negative except as documented in HPI. Psychiatric symptoms: Negative except as documented in HPI. Endocrine symptoms: Negative except as documented in HPI. PFSH ED 2 PFSH: Medical History Coronary-myocardial bridge Peripheral neuropathy Type 2 diabetes mellitus Hyperlipidemia Hypertension Pulmonary embolism Other reactions to severe stress Bipolar 1 disorder Most recent episode depressed Fracture of [facility] Surgical History History of appendectomy Social History Smoking and tobacco/nicotine status: current every day tobacco/nicotine user e- cigarettes Alcohol intake: current Alcohol intake frequency: few times a month Substance/Drug Use: never Marital status: Single Physical Exam 2 Narrative: EXAM NARRATIVE: General: Alert, no acute distress. Skin: Warm, dry. Head: Normocephalic, atraumatic. Neck: Supple, trachea midline. Eye: Extraocular movements are intact. Ears, nose, mouth and throat: mucosa moist. Cardiovascular: Regular, Normal peripheral perfusion. Respiratory: Lungs are clear to auscultation, respirations are non-labored, breath sounds are equal, Symmetrical chest wall expansion. Gastrointestinal: Soft, Nontender, Non distended Musculoskeletal: Normal ROM, no deformity. Neurological: Alert and oriented, No focal neurological deficit observed. Psychiatric: Cooperative, patient does express some depression and anxiety but denies any homicidal or suicidal ideation Course 2 Vital Signs: Vital signs: Vital Signs Temperature 97.6 F 05/11/24 13:56 Pulse Rate 124 H 05/11/24 13:56 Respiratory Rate 18 05/11/24 13:56 Blood Pressure 134/88 05/11/24 13:56 Pulse Oximetry 96 05/11/24 13:56 [facility] - Psych Medical Decision Making Basic lab work was done and patient is somewhat hyperglycemic. Otherwise normal. No urine has been collected. Drug screen was negative. This was all ordered in triage with thoughts he might be admitted. Ultimately he is going to try to get help tomorrow at this crisis center. Assessment and plan: Depression Anxiety Hyperglycemia Dehydration ?Normal saline bolus ? Spoke with patient about outpatient therapy options - Discharged home - Discussed plan with patient. Answered any questions. - Evaluation and treatment of this problem were appropriate in the emergency setting. Lab Data 05/11/24 14:43 05/11/24 14:43 Laboratory Results WBC 7.35 10^3/uL (3.29-11.43) 05/11/24 14:43 RBC 5.91 10^6/uL (3.85-5.65) H 05/11/24 14:43 Hgb 16.90 g/dL (11.27-16.99) 05/11/24 14:43 Hct 52.0 % (37-53) 05/11/24 14:43 MCV 88.0 fl (82-101) 05/11/24 14:43 MCH 28.6 pg (27-33) 05/11/24 14:43 MCHC 32.5 g/dL (30-55) 05/11/24 14:43 RDW 14.2 % (12.1-15.1) 05/11/24 14:43 Plt Count 227 10^3/cmm (157-399) 05/11/24 14:43 MPV 10.5 fL (7.4-10.4) H 05/11/24 14:43 Neut % (Auto) 63.1 % 05/11/24 14:43 Lymph % (Auto) 29.4 % 05/11/24 14:43 Price % (Auto) 6.4 % 05/11/24 14:43 Eos % (Auto) 0.5 % 05/11/24 14:43 Baso % (Auto) 0.3 % 05/11/24 14:43 Neut # (Auto) 4.64 10^3/uL (1.8-7.7) 05/11/24 14:43 Lymph # (Auto) 2.2 10^3/uL (0.8-4.8) 05/11/24 14:43 Price # (Auto) 0.5 10^3/uL (0.2-0.9) 05/11/24 14:43 Eos # (Auto) 0.0 10^3/uL (0.0-0.8) 05/11/24 14:43 Baso # (Auto) 0.0 10^3/uL (0.0-0.1) 05/11/24 14:43 Nucleated RBC % (auto) 0 % 05/11/24 14:43 Nucleated RBCs # 0.0 /100WBC 05/11/24 14:43 Sodium 138 mmol/L (136-145) 05/11/24 14:43 Potassium 4.3 mmol/L (3.5-5.1) 05/11/24 14:43 Chloride 98 mmol/L (98-107) 05/11/24 14:43 Carbon Dioxide 30 mmol/L (22-29) H 05/11/24 14:43 Anion Gap 14.3 (5-19) 05/11/24 14:43 BUN 20 mg/dL (6-20) 05/11/24 14:43 Creatinine 0.9 mg/dL (0.7-1.2) 05/11/24 14:43 GFR Calculation 91.7 mL/min (90-130) 05/11/24 14:43 Glucose 307 mg/dL (65-115) H 05/11/24 14:43 POC Glucose 254 mg/dL (70-110) H 05/11/24 15:21 Calculated Osmolality 300 mOsm/kg (285-295) H 05/11/24 14:43 Calcium 9.4 mg/dL (8.5-10.5) 05/11/24 14:43 Total Bilirubin 0.4 mg/dL (0.15-1.2) 05/11/24 14:43 AST 11 U/L (0-40) 05/11/24 14:43 ALT 16 U/L (0-41) 05/11/24 14:43 Alkaline Phosphatase 85 U/L (40-130) 05/11/24 14:43 Total Protein 6.7 g/dL (6.6-8.7) 05/11/24 14:43 Albumin 4.5 g/dL (3.5-5.2) 05/11/24 14:43 Globulin 2.2 g/dL (1.3-4.6) 05/11/24 14:43 Salicylates < 0.3 mg/dL (3-10) L 05/11/24 14:43 Acetaminophen < 5.0 ug/mL (10-30) L 05/11/24 14:43 Ethyl Alcohol < 10 mg/dL (0-10) 05/11/24 14:43 No radiology studies performed this visit Discharge Plan Discharge Patient Disposition: Home Clinical Impression: Bipolar disorder, Depression, Anxiety, Hyperglycemia, Dehydration Condition: Stable Prescriptions: No Action gabapentin [Neurontin] 300 mg capsule 300 mg PO BID venlafaxine 75 mg capsule,extended release 24hr 225 mg PO QAM Qty: 90 1RF Rx Instructions: Take three capsules by mouth every morning divalproex 500 mg tablet extended release 24 hr 2,000 mg PO BEDTIME 30 Days Qty: 120 1RF olanzapine 5 mg tablet,disintegrating 5 mg PO DAILY PRN (Reason: agitation/anxiety) Qty: 30 1RF Rx Instructions: Take 1 tablet daily in evening(after 5 PM up until bedtime),if needed aripiprazole 30 mg tablet 15 mg PO BID 30 Days Qty: 30 1RF diazepam 5 mg tablet 5 mg PO BID Qty: 60 1RF omeprazole 40 mg capsule,delayed release(DR/EC) 40 mg PO DAILY Qty: 30 0RF ondansetron 4 mg tablet,disintegrating 4 mg PO Q8H PRN (Reason: nausea and vomiting) Qty: 20 0RF (DME) Dexcom G6 Sensor Device See Rx Instructions .Route Qty: 3 2RF Rx Instructions: As directed metoprolol succinate 25 mg tablet extended release 24 hr 25 mg PO DAILY Qty: 90 0RF (DME) Dexcom G6 Foot Caster Misc See Rx Instructions .ROUTE .MEDSUPPLY Qty: 1 0RF Rx Instructions: as directed glucagon HCl [Glucagon (HCl) Emergency Kit] 1 mg recon soln 1 mg SUBCUT Q20M PRN (Reason: hypoglycemia) Qty: 1 1RF Rx Instructions: until target blood sugar attained insulin lispro [Humalog KwikPen Insulin] 100 unit/mL insulin pen 5 unit SUBCUT TID Qty: 15 1RF Rx Instructions: 5units every 4 hours as needed for blood sugars above 400 Eliquis 5 mg tablet 5 mg PO BID Qty: 180 3RF Mounjaro 7.5 mg/0.5 mL pen injector See Rx Instructions .ROUTE .COMPLEX Qty: 2 3RF Dose Instruction: INJECT 7.5MG SUBCUTANEOUSLY EVERY 7 DAYS Rx Instructions: INJECT 7.5MG SUBCUTANEOUSLY EVERY 7 DAYS Mounjaro 10 mg/0.5 mL pen injector 10 mg SUBCUT Q7D Qty: 2 1RF (DME) Dexcom G6 Transmitter Device See Rx Instructions .Route Qty: 1 0RF Rx Instructions: As directed metformin 1,000 mg tablet See Rx Instructions .ROUTE .COMPLEX Qty: 90 0RF Dose Instruction: TAKE 1 TABLET BY MOUTH EVERY DAY Rx Instructions: TAKE 1 TABLET BY MOUTH EVERY DAY pioglitazone 45 mg tablet See Rx Instructions .ROUTE .COMPLEX Qty: 30 0RF Dose Instruction: TAKE 1 TABLET BY MOUTH EVERY DAY Rx Instructions: TAKE 1 TABLET BY MOUTH EVERY DAY aspirin 81 mg tablet,delayed release (DR/EC) 81 mg PO DAILY acetaminophen [Pain Reliever (acetaminophen)] 500 mg tablet 1,000 mg PO Q6H PRN (Reason: Pain) cetirizine 10 mg Capsule 10 mg PO BEDTIME PRN (Reason: Allergy Symptoms) Jardiance 25 mg tablet 25 mg PO DAILY bismuth subsalicylate [Stomach Relief] 262 mg/15 mL suspension 262 mg PO Q4H PRN (Reason: Indigestion) irbesartan 150 mg tablet 150 mg PO DAILY atorvastatin 80 mg tablet 80 mg PO BEDTIME promethazine 25 mg tablet 25 mg PO Q6H PRN (Reason: Nausea And Vomiting) glucose 4 gram Tablet,Chewable 16 g PO PRN PRN (Reason: LOW BLOOD SUGAR) Rx Instructions: for bs lower than 60 ibuprofen 600 mg tablet 600 mg PO TID PRN (Reason: Pain) Discharge Orders: Discharge ED (Routine); Ordered 05/11/24 Ordered By: Bety Yanez Referrals: Bautista Ruiz MD [Primary Care Provider] - Discharge Diet: Usual diet Discharge Activity: Increase activity as tolerated Patient Instructions: Opioid Safety, Pain Management Coding Level of Care Code ED Polymerization Helper for Dasha Nix
[2024-05-11 16:30] VITALS: BP 143/101; PULSE 95; O2SAT 95
[2024-05-11] MEDS: sodium chloride 0.9% 1,000 ML 999 ML IV (16:44)
[2024-05-11 17:55] VITALS: BP 125/106; PULSE 99; O2SAT 99
== END 2024-05-11 17:57 | disposition home or self-care (01) ==
PROVIDERS: Emergency Medicine; Emergency Provider Emergency Medicine; PCP Family Medicine
DX: F31.9 Bipolar disorder, unspecified (principal); F41.9 Anxiety disorder, unspecified; E86.0 Dehydration; E11.65 Type 2 diabetes mellitus with hyperglycemia; Z79.01 Long term (current) use of anticoagulants; Z79.4 Long term (current) use of insulin; Z79.84 Long term (current) use of oral hypoglycemic drugs; Z79.85 Long-term (current) use of injectable non-insulin antidiabetic drugs; Z79.82 Long term (current) use of aspirin; E78.5 Hyperlipidemia, unspecified; I10 Essential (primary) hypertension; E11.42 Type 2 diabetes mellitus with diabetic polyneuropathy; F17.290 Nicotine dependence, other tobacco product, uncomplicated
CPT/HCPCS: 36415; 36416; 80053; 80307; 82962; 85025; 99284; J7030

== ENCOUNTER → 2024-05-14 10:15 | Outpatient (BNVA) | payer MEDICARE, MEDICAID, SELFPAY | PROVIDERS: PCP Family Medicine; Visit Provider Internal Medicine | DX: E11.9 Type 2 diabetes mellitus without complications (principal); Z79.4 Long term (current) use of insulin; E78.5 Hyperlipidemia, unspecified; Z79.84 Long term (current) use of oral hypoglycemic drugs; Z79.85 Long-term (current) use of injectable non-insulin antidiabetic drugs | CPT/HCPCS: 99214 ==

== ENCOUNTER 2024-06-14 04:18 | Emergency (ER) | payer MEDICARE, MEDICAID, SELFPAY ==
[2024-06-14] VITALS (10 sets, daily range): BP systolic 120–143; BP diastolic 54–82; PULSE 95–111; RESP 16; TEMP 36.6; O2SAT 92–100; BMI 34.3
--- NOTE | 2024-06-14 04:37 | ED_ITS ---
HPI - Recheck/Abnormal Lab/Rx General: Chief Complaint: Recheck/Abnormal Lab/Rx Stated Complaint: Hypoglycemia Time Seen by Provider: 06/14/24 04:22 History of Present Illness: Patient presents to the ER with low blood sugar. Patient blood sugars were in the 40s all night long despite high sugar and carb intake. Patient called EMS for further treatment. Patient was given approximately 250 cc of D10 by EMS before arrival. Upon arrival patient's blood sugar is 119. Patient said he did not use his long-acting insulin but he did use his Mounjaro last night. Patient denies any other complaints at this time. Related Data Home Medications Medication Instructions Recorded Confirmed gabapentin 300 mg capsule 300 mg PO BID 10/11/22 05/27/24 (Neurontin) bismuth subsalicylate 262 mg/15 mL 262 mg PO Q4H PRN Indigestion 03/16/23 05/27/24 oral suspension (Stomach Relief) irbesartan 150 mg tablet 150 mg PO DAILY 03/16/23 05/27/24 acetaminophen 500 mg tablet (Pain 1,000 mg PO Q6H PRN Pain 10/24/23 05/27/24 Reliever (acetaminophen)) aspirin 81 mg tablet,delayed 81 mg PO DAILY 10/24/23 05/27/24 release cetirizine 10 mg capsule 10 mg PO BEDTIME PRN Allergy 10/24/23 05/27/24 Symptoms empagliflozin 25 mg tablet 25 mg PO DAILY 10/24/23 05/27/24 (Jardiance) atorvastatin 80 mg tablet 80 mg PO BEDTIME 12/31/23 05/27/24 glucose 4 gram chewable tablet 16 g PO PRN PRN LOW BLOOD SUGAR 12/31/23 05/27/24 ibuprofen 600 mg tablet 600 mg PO TID PRN Pain 12/31/23 05/27/24 promethazine 25 mg tablet 25 mg PO Q6H PRN Nausea And 12/31/23 05/27/24 Vomiting Previous Rx's Medication Instructions Recorded metoprolol succinate 25 mg 25 mg PO DAILY #90 tabs 11/01/23 tablet,extended release 24 hr glucagon HCl 1 mg solution for 1 mg SUBCUT Q20M PRN hypoglycemia 12/17/23 injection (Glucagon (HCl) #1 ea Emergency Kit) insulin lispro 100 unit/mL 5 unit (0.05 mL) SUBCUT TID #15 mL 01/02/24 subcutaneous pen (Humalog KwikPen (U-100) Insulin) apixaban 5 mg tablet (Eliquis) 5 mg PO BID #180 tabs 01/28/24 blood-glucose sensor (Dexcom G6 #3 ea 01/31/24 Sensor device) tirzepatide 7.5 mg/0.5 mL See Rx Instructions .Route 02/01/24 subcutaneous pen injector .COMPLEX #2 mL (Mounjaro) metformin 1,000 mg tablet See Rx Instructions .Route 03/27/24 .COMPLEX #90 tabs omeprazole 40 mg capsule,delayed 40 mg PO DAILY #30 caps 04/19/24 release ondansetron 4 mg disintegrating 4 mg PO Q8H PRN nausea and 04/19/24 tablet vomiting #20 tabs aripiprazole 30 mg tablet 15 mg (1/2 x 30 mg) PO BID 30 days 04/21/24 #30 tabs divalproex 500 mg tablet,extended 2,000 mg (4 x 500 mg) PO BEDTIME 04/21/24 release 24 hr 30 days #120 tabs olanzapine 5 mg disintegrating 5 mg PO DAILY PRN 04/21/24 tablet agitation/anxiety #30 tabs venlafaxine 75 mg capsule,extended 225 mg (3 x 75 mg) PO QAM #90 caps 04/21/24 release 24 hr diazepam 5 mg tablet 5 mg PO BID #60 tabs 04/22/24 tirzepatide 10 mg/0.5 mL See Rx Instructions .Route 05/12/24 subcutaneous pen injector .COMPLEX #2 mL (Mounjaro) blood-glucose meter,continuous #1 ea 05/14/24 (FreeStyle Stacey 3 [place]) blood-glucose sensor (FreeStyle #2 ea 05/14/24 Stacey 3 Sensor device) pioglitazone 45 mg tablet See Rx Instructions .Route 05/23/24 .COMPLEX #30 tabs blood-glucose transmitter (Dexcom #1 ea 06/12/24 G6 Transmitter device) blood-glucose meter,continuous #1 ea 06/13/24 (Dexcom G6 [employer]) Allergies Allergy/AdvReac Type Severity Reaction Status Date / Time No Known Allergies Allergy Verified 05/27/24 09:58 Review of Systems General: Reports: 10 or more systems reviewed and unremarkable except in HPI and below PFSH ED PFSH: Medical History Coronary-myocardial bridge Peripheral neuropathy Type 2 diabetes mellitus Hyperlipidemia Hypertension Pulmonary embolism Other reactions to severe stress Bipolar 1 disorder Most recent episode depressed Fracture of [facility] Surgical History History of appendectomy Social History Smoking and tobacco/nicotine status: never used tobacco/nicotine Alcohol intake: current Alcohol intake frequency: few times a month Substance/Drug Use: never Marital status: Single Physical Exam Const: COMMON NORMALS: no acute distress, average body habitus, patient oriented x3, no limitations, healthy appearing, alert and well nourished HENMT: COMMON NORMALS: normocephalic, atraumatic, hearing grossly normal bilaterally, external ears normal, Normal external nose present and moist oral mucous membranes HEAD & SCALP: normocephalic and atraumatic NOSE: Normal external nose present EXTERNAL EAR: Yes external ears normal Neck/C-Spine: COMMON NORMALS: no JVD Chest: COMMONS NORMALS: normal inspection of the chest and normal palpation of entire chest wall Resp: COMMON NORMALS: normal respiratory effort, No retractions, No use of accessory muscles and clear to auscultation bilaterally AUSCULTATION: clear to auscultation bilaterally Cardio: COMMON NORMALS: no JVD, regular rate, regular rhythm, S1 normal heart sound present, S2 normal heart sound present, No gallops present (Cardio), No cl icks present (Cardio), No murmurs present (Cardio) and No rub (Cardio) RATE: regular rate RHYTHM: regular rhythm HEART SOUNDS: S1 normal heart sound present and S2 normal heart sound present GI: COMMON NORMALS: Normal to inspection, nondistended, normoactive bowel sounds present, Soft to palpation, non-tender, No hepatosplenomegaly present and no masses PALPATION: Yes Soft to palpation and Yes No hepatosplenomegaly present Neuro: COMMON NORMALS: patient oriented x3 SENSORIUM/ORIENTATION: Yes alert Course Vital Signs: Vital signs: Vital Signs Temperature 97.9 F 06/14/24 04:20 Pulse Rate 111 H 06/14/24 04:20 Respiratory Rate 16 08/10/24 04:20 Blood Pressure 127/74 08/10/24 04:20 Pulse Oximetry 94 06/14/24 04:20 Oxygen Delivery Me thod Room Air 06/14/24 04:20 MDM - Recheck/Abnormal Lab/Rx Medical Decision Making Patient arrived with a blood sugar approximate 119 after doing 250 mL of D10 per EMS. We waited approximately an hour rechecked his blood sugar dropped to 70, we therefore gave him another D10 bolus and waited another hour and rechecked his blood sugar.. Once felt stable patient was discharged home. Medical Records I reviewed the patient's medical records. Lab Data I reviewed the patient's lab results. No radiology studies performed this visit Discharge Plan Discharge Patient Disposition: Home Clinical Impression: Hypoglycemia due to type 2 diabetes mellitus Condition: Stable Prescriptions: No Action gabapentin [Neurontin] 300 mg capsule 300 mg PO BID (DME) FreeStyle Stacey 3 [place] Misc See Rx Instructions .Route Qty: 1 0RF Rx Instructions: As directed (DME) FreeStyle Stacey 3 Sensor Device See Rx Instructions .Route Qty: 2 3RF Rx Instructions: As directed venlafaxine 75 mg capsule,extended release 24hr 225 mg PO QAM Qty: 90 1RF Rx Instructions: Take three capsules by mouth every morning divalproex 500 mg tablet extended release 24 hr 2,000 mg PO BEDTIME 30 Days Qty: 120 1RF olanzapine 5 mg tablet,disintegrating 5 mg PO DAILY PRN (Reason: agitation/anxiety) Qty: 30 1RF Rx Instructions: Take 1 tablet daily in evening(after 5 PM up until bedtime),if needed aripiprazole 30 mg tablet 15 mg PO BID 30 Days Qty: 30 1RF diazepam 5 mg tablet 5 mg PO BID Qty: 60 1RF omeprazole 40 mg capsule,delayed release(DR/EC) 40 mg PO DAILY Qty: 30 0RF ondansetron 4 mg tablet,disintegrating 4 mg PO Q8H PRN (Reason: nausea and vomiting) Qty: 20 0RF (DME) Dexcom G6 Sensor Device See Rx Instructions .Route Qty: 3 2RF Rx Instructions: As directed metoprolol succinate 25 mg tablet extended release 24 hr 25 mg PO DAILY Qty: 90 0RF glucagon HCl [Glucagon (HCl) Emergency Kit] 1 mg recon soln 1 mg SUBCUT Q20M PRN (Reason: hypoglycemia) Qty: 1 1RF Rx Instructions: until target blood sugar attained insulin lispro [Humalog KwikPen Insulin] 100 unit/mL insulin pen 5 unit SUBCUT TID Qty: 15 1RF Rx Instructions: 5units every 4 hours as needed for blood sugars above 400 Eliquis 5 mg tablet 5 mg PO BID Qty: 180 3RF Mounjaro 7.5 mg/0.5 mL pen injector See Rx Instructions .ROUTE .COMPLEX Qty: 2 3RF Dose Instruction: INJECT 7.5MG SUBCUTANEOUSLY EVERY 7 DAYS Rx Instructions: INJECT 7.5MG SUBCUTANEOUSLY EVERY 7 DAYS metformin 1,000 mg tablet See Rx Instructions .ROUTE .COMPLEX Qty: 90 0RF Dose Instruction: TAKE 1 TABLET BY MOUTH EVERY DAY Rx Instructions: TAKE 1 TABLET BY MOUTH EVERY DAY Mounjaro 10 mg/0.5 mL pen injector See Rx Instructions .ROUTE .COMPLEX Qty: 2 1RF Dose Instruction: inject 10mg (0.5ml) SUBCUTANEOUSLY EVERY 7 DAYS Rx Instructions: inject 10mg (0.5ml) SUBCUTANEOUSLY EVERY 7 DAYS pioglitazone 45 mg tablet See Rx Instructions .ROUTE .COMPLEX Qty: 30 0RF Dose Instruction: TAKE 1 TABLET BY MOUTH EVERY DAY Rx Instructions: TAKE 1 TABLET BY MOUTH EVERY DAY (DME) Dexcom G6 Transmitter Device See Rx Instructions .ROUTE .COMPLEX Qty: 1 0RF Dose Instruction: CHANGE transmitter every 90 DAYS Rx Instructions: CHANGE transmitter every 90 DAYS (DME) Dexcom G6 [employer] Misc See Rx Instructions .ROUTE .COMPLEX Qty: 1 0RF Dose Instruction: USE DIRECTED Rx Instructions: USE DIRECTED aspirin 81 mg tablet,delayed release (DR/EC) 81 mg PO DAILY acetaminophen [Pain Reliever (acetaminophen)] 500 mg tablet 1,000 mg PO Q6H PRN (Reason: Pain) cetirizine 10 mg Capsule 10 mg PO BEDTIME PRN (Reason: Allergy Symptoms) Jardiance 25 mg tablet 25 mg PO DAILY bismuth subsalicylate [Stomach Relief] 262 mg/15 mL suspension 262 mg PO Q4H PRN (Reason: Indigestion) irbesartan 150 mg tablet 150 mg PO DAILY atorvastatin 80 mg tablet 80 mg PO BEDTIME promethazine 25 mg tablet 25 mg PO Q6H PRN (Reason: Nausea And Vomiting) glucose 4 gram Tablet,Chewable 16 g PO PRN PRN (Reason: LOW BLOOD SUGAR) Rx Instructions: for bs lower than 60 ibuprofen 600 mg tablet 600 mg PO TID PRN (Reason: Pain) Discharge Orders: Discharge ED (Routine); Ordered 06/14/24 Ordered By: Deep Swann Referrals: Bautista Ruiz MD [Primary Care Provider] - 1 week Patient Instructions: Hypoglycemia in Adolescents with Diabetes (ED), What to Do if Your Blood Sugar is Low (ED) Activity Restrictions/Additional Instructions: Please check your blood sugar frequently, hold off on using the Mounjaro until seen by your family practice doctor. If your blood sugar becomes too low or you cannot keep it in the acceptable range please feel free to return to the ER. Coding Level of Care Code ED Beader for Dasha Nix
[2024-06-14] MEDS: dextrose 10% 250 ML 1000 ML IV ×3 (05:23→10:02)
[2024-06-14 06:02] LABS: Glucose Point of Care 102 mg/dL (70-110)
[2024-06-14 06:02] LABS: Glucose Point of Care 71 mg/dL (70-110)
[2024-06-14 06:27] LABS: Glucose Point of Care 142 mg/dL (70-110)
[2024-06-14 07:36] LABS: Glucose Point of Care 73 mg/dL (70-110)
[2024-06-14 09:51] LABS: Glucose Point of Care 66 mg/dL (70-110)
--- NOTE | 2024-06-14 10:09 | PC.NURSE ---
Pt FSB[facility] 65, notified. Pt gave verbal order for 250 of D10.
[2024-06-14 11:19] LABS: Glucose Point of Care 137 mg/dL (70-110)
--- NOTE | 2024-06-14 12:02 | W.ED.RECABL ---
HPI - Recheck/Abnormal Lab/Rx General: Chief Complaint: Recheck/Abnormal Lab/Rx Stated Complaint: Hypoglycemia Time Seen by Provider: 06/14/24 04:22 History of Present Illness: 43-year-old male presents emergency room seeing initially Dr. Swann had hypoglycemia see Dr. Swann's notes. He was given glucose and allowed to eat his blood sugar improved. Related Data Home Medications Medication Instructions Recorded Confirmed gabapentin 300 mg capsule 300 mg PO BID 10/11/22 05/27/24 (Neurontin) bismuth subsalicylate 262 mg/15 mL 262 mg PO Q4H PRN Indigestion 03/16/23 05/27/24 oral suspension (Stomach Relief) irbesartan 150 mg tablet 150 mg PO DAILY 03/16/23 05/27/24 acetaminophen 500 mg tablet (Pain 1,000 mg PO Q6H PRN Pain 10/24/23 05/27/24 Reliever (acetaminophen)) aspirin 81 mg tablet,delayed 81 mg PO DAILY 10/24/23 05/27/24 release cetirizine 10 mg capsule 10 mg PO BEDTIME PRN Allergy 10/24/23 05/27/24 Symptoms empagliflozin 25 mg tablet 25 mg PO DAILY 10/24/23 05/27/24 (Jardiance) atorvastatin 80 mg tablet 80 mg PO BEDTIME 12/31/23 05/27/24 glucose 4 gram chewable tablet 16 g PO PRN PRN LOW BLOOD SUGAR 12/31/23 05/27/24 ibuprofen 600 mg tablet 600 mg PO TID PRN Pain 12/31/23 05/27/24 promethazine 25 mg tablet 25 mg PO Q6H PRN Nausea And 12/31/23 05/27/24 Vomiting Previous Rx's Medication Instructions Recorded metoprolol succinate 25 mg 25 mg PO DAILY #90 tabs 11/01/23 tablet,extended release 24 hr glucagon HCl 1 mg solution for 1 mg SUBCUT Q20M PRN hypoglycemia 12/17/23 injection (Glucagon (HCl) #1 ea Emergency Kit) insulin lispro 100 unit/mL 5 unit (0.05 mL) SUBCUT TID #15 mL 01/02/24 subcutaneous pen (Humalog KwikPen (U-100) Insulin) apixaban 5 mg tablet (Eliquis) 5 mg PO BID #180 tabs 01/28/24 blood-glucose sensor (Dexcom G6 #3 ea 01/31/24 Sensor device) tirzepatide 7.5 mg/0.5 mL See Rx Instructions .Route 02/01/24 subcutaneous pen injector .COMPLEX #2 mL (Mounjaro) metformin 1,000 mg tablet See Rx Instructions .Route 03/27/24 .COMPLEX #90 tabs omeprazole 40 mg capsule,delayed 40 mg PO DAILY #30 caps 04/19/24 release ondansetron 4 mg disintegrating 4 mg PO Q8H PRN nausea and 04/19/24 tablet vomiting #20 tabs aripiprazole 30 mg tablet 15 mg (1/2 x 30 mg) PO BID 30 days 04/21/24 #30 tabs divalproex 500 mg tablet,extended 2,000 mg (4 x 500 mg) PO BEDTIME 04/21/24 release 24 hr 30 days #120 tabs olanzapine 5 mg disintegrating 5 mg PO DAILY PRN 04/21/24 tablet agitation/anxiety #30 tabs venlafaxine 75 mg capsule,extended 225 mg (3 x 75 mg) PO QAM #90 caps 04/21/24 release 24 hr diazepam 5 mg tablet 5 mg PO BID #60 tabs 04/22/24 tirzepatide 10 mg/0.5 mL See Rx Instructions .Route 05/12/24 subcutaneous pen injector .COMPLEX #2 mL (Mounjaro) blood-glucose meter,continuous #1 ea 05/14/24 (FreeStyle Stacey 3 [place]) blood-glucose sensor (FreeStyle #2 ea 05/14/24 Stacey 3 Sensor device) pioglitazone 45 mg tablet See Rx Instructions .Route 05/23/24 .COMPLEX #30 tabs blood-glucose transmitter (Dexcom #1 ea 06/12/24 G6 Transmitter device) blood-glucose meter,continuous #1 ea 06/13/24 (Dexcom G6 [employer]) Allergies Allergy/AdvReac Type Severity Reaction Status Date / Time No Known Allergies Allergy Verified 05/27/24 09:58 [facility] ED PFSH: Medical History Coronary-myocardial bridge Peripheral neuropathy Type 2 diabetes mellitus Hyperlipidemia Hypertension Pulmonary embolism Other reactions to severe stress Bipolar 1 disorder Most recent episode depressed Fracture of [facility] Surgical History History of appendectomy Social History Smoking and tobacco/nicotine status: never used tobacco/nicotine Alcohol intake: current Alcohol intake frequency: few times a month Substance/Drug Use: never Marital status: Single Course Vital Signs: Vital signs: Vital Signs Temperature 97.9 F 06/14/24 04:20 Pulse Rate 102 H 06/14/24 06:30 Respiratory Rate 16 06/14/24 04:20 Blood Pressure 120/54 06/14/24 06:30 Pulse Oximetry 94 06/14/24 06:30 Oxygen Delivery Me thod Room Air 06/14/24 05:54 MDM - Recheck/Abnormal Lab/Rx Medical Decision Making Care assumed at change of shift patient has been asymptomatic we been monitoring his blood sugars but hovering low but do respond he is anxious to go home explained to consistent now will discharge home return if he has further problems continue to monitor closely at home. Lab Data Laboratory Results POC Glucose 137 mg/dL (70-110) H 06/14/24 11:15 No radiology studies performed this visit Discharge Plan Discharge Patient Disposition: Home Clinical Impression: Hypoglycemia due to type 2 diabetes mellitus Condition: Stable Prescriptions: No Action gabapentin [Neurontin] 300 mg capsule 300 mg PO BID (DME) FreeStyle Stacey 3 [place] Misc See Rx Instructions .Route Qty: 1 0RF Rx Instructions: As directed (DME) FreeStyle Stacey 3 Sensor Device See Rx Instructions .Route Qty: 2 3RF Rx Instructions: As directed venlafaxine 75 mg capsule,extended release 24hr 225 mg PO QAM Qty: 90 1RF Rx Instructions: Take three capsules by mouth every morning divalproex 500 mg tablet extended release 24 hr 2,000 mg PO BEDTIME 30 Days Qty: 120 1RF olanzapine 5 mg tablet,disintegrating 5 mg PO DAILY PRN (Reason: agitation/anxiety) Qty: 30 1RF Rx Instructions: Take 1 tablet daily in evening(after 5 PM up until bedtime),if needed aripiprazole 30 mg tablet 15 mg PO BID 30 Days Qty: 30 1RF diazepam 5 mg tablet 5 mg PO BID Qty: 60 1RF omeprazole 40 mg capsule,delayed release(DR/EC) 40 mg PO DAILY Qty: 30 0RF ondansetron 4 mg tablet,disintegrating 4 mg PO Q8H PRN (Reason: nausea and vomiting) Qty: 20 0RF (DME) Dexcom G6 Sensor Device See Rx Instructions .Route Qty: 3 2RF Rx Instructions: As directed metoprolol succinate 25 mg tablet extended release 24 hr 25 mg PO DAILY Qty: 90 0RF glucagon HCl [Glucagon (HCl) Emergency Kit] 1 mg recon soln 1 mg SUBCUT Q20M PRN (Reason: hypoglycemia) Qty: 1 1RF Rx Instructions: until target blood sugar attained insulin lispro [Humalog KwikPen Insulin] 100 unit/mL insulin pen 5 unit SUBCUT TID Qty: 15 1RF Rx Instructions: 5units every 4 hours as needed for blood sugars above 400 Eliquis 5 mg tablet 5 mg PO BID Qty: 180 3RF Mounjaro 7.5 mg/0.5 mL pen injector See Rx Instructions .ROUTE .COMPLEX Qty: 2 3RF Dose Instruction: INJECT 7.5MG SUBCUTANEOUSLY EVERY 7 DAYS Rx Instructions: INJECT 7.5MG SUBCUTANEOUSLY EVERY 7 DAYS metformin 1,000 mg tablet See Rx Instructions .ROUTE .COMPLEX Qty: 90 0RF Dose Instruction: TAKE 1 TABLET BY MOUTH EVERY DAY Rx Instructions: TAKE 1 TABLET BY MOUTH EVERY DAY Mounjaro 10 mg/0.5 mL pen injector See Rx Instructions .ROUTE .COMPLEX Qty: 2 1RF Dose Instruction: inject 10mg (0.5ml) SUBCUTANEOUSLY EVERY 7 DAYS Rx Instructions: inject 10mg (0.5ml) SUBCUTANEOUSLY EVERY 7 DAYS pioglitazone 45 mg tablet See Rx Instructions .ROUTE .COMPLEX Qty: 30 0RF Dose Instruction: TAKE 1 TABLET BY MOUTH EVERY DAY Rx Instructions: TAKE 1 TABLET BY MOUTH EVERY DAY ([facility] [place]) Dexcom G6 Transmitter Device See Rx Instructions .ROUTE .COMPLEX Qty: 1 0RF Dose Instruction: CHANGE transmitter every 90 DAYS Rx Instructions: CHANGE transmitter every 90 DAYS ([facility] [place]) Dexcom G6 [employer] Misc See Rx Instructions .ROUTE .COMPLEX Qty: 1 0RF Dose Instruction: USE DIRECTED Rx Instructions: USE DIRECTED aspirin 81 mg tablet,delayed release (DR/EC) 81 mg PO DAILY acetaminophen [Pain Reliever (acetaminophen)] 500 mg tablet 1,000 mg PO Q6H PRN (Reason: Pain) cetirizine 10 mg Capsule 10 mg PO BEDTIME PRN (Reason: Allergy Symptoms) Jardiance 25 mg tablet 25 mg PO DAILY bismuth subsalicylate [Stomach Relief] 262 mg/15 mL suspension 262 mg PO Q4H PRN (Reason: Indigestion) irbesartan 150 mg tablet 150 mg PO DAILY atorvastatin 80 mg tablet 80 mg PO BEDTIME promethazine 25 mg tablet 25 mg PO Q6H PRN (Reason: Nausea And Vomiting) glucose 4 gram Tablet,Chewable 16 g PO PRN PRN (Reason: LOW BLOOD SUGAR) Rx Instructions: for bs lower than 60 ibuprofen 600 mg tablet 600 mg PO TID PRN (Reason: Pain) Discharge Orders: Discharge ED (Routine); Ordered 06/14/24 Ordered By: Deep Swann Referrals: Bautista Ruiz MD [Primary Care Provider] - 1 week Patient Instructions: What to Do if Your Blood Sugar is Low (ED), Hypoglycemia in Adolescents with Diabetes (ED) Activity Restrictions/Additional Instructions: Please check your blood sugar frequently, hold off on using the Mounjaro until seen by your family practice doctor. If your blood sugar becomes too low or you cannot keep it in the acceptable range please feel free to return to the ER. Coding Level of Care Code ED Cartoon Artist for Dasha Nix
[2024-06-14 12:04] LABS: Glucose Point of Care 109 mg/dL (70-110)
== END 2024-06-14 12:20 | disposition home or self-care (01) ==
PROVIDERS: Emergency Provider Emergency Medicine; PCP Family Medicine
DX: E11.649 Type 2 diabetes mellitus with hypoglycemia without coma (principal); Z79.4 Long term (current) use of insulin; Z79.01 Long term (current) use of anticoagulants; Z79.85 Long-term (current) use of injectable non-insulin antidiabetic drugs; Z79.84 Long term (current) use of oral hypoglycemic drugs; Z79.82 Long term (current) use of aspirin; E11.42 Type 2 diabetes mellitus with diabetic polyneuropathy; E78.5 Hyperlipidemia, unspecified; I10 Essential (primary) hypertension
CPT/HCPCS: 36416; 82962; 99284; J7799

== ENCOUNTER → 2024-06-24 11:31 | Outpatient (BNVA) | payer MEDICARE, MEDICAID, SELFPAY | PROVIDERS: PCP Family Medicine; Visit Provider Registered Nurse Neonatal Intensive Care | DX: S69.81XA Other specified injuries of right wrist, hand and finger(s), initial encounter (principal); W22.09XA Striking against other stationary object, initial encounter | CPT/HCPCS: 73130 ==

== ENCOUNTER 2024-06-28 02:20 | Emergency (ER) | payer MEDICARE, MEDICAID, SELFPAY ==
[2024-06-28 02:22] VITALS: BP 141/96; PULSE 90; RESP 18; TEMP 36.6; O2SAT 97; BMI 34.2
--- NOTE | 2024-06-28 02:30 | W.ED.ANXIETY ---
HPI - Anxiety General: Chief Complaint: Anxiety Stated Complaint: ANXIETY Time Seen by Provider: 06/28/24 02:26 History of Present Illness: Patient came in by EMS with complaints of anxiety. He said his staff is changing over there and every time he gets used to somebody they change this and messing up his routine really bad. They did not give him his medicine on time he did take his medicine approximate 30 minutes working here it sounds like he took a Zyprexa Zydis. He says it has not kicked and is not really working yet. Patient appears to be in no acute distress and nontoxic in appearance. Worker is with him at bedside. Related Data Home Medications Medication Instructions Recorded Confirmed gabapentin 300 mg capsule 300 mg PO BID 10/11/22 06/24/24 (Neurontin) bismuth subsalicylate 262 mg/15 mL 262 mg PO Q4H PRN Indigestion 03/16/23 06/24/24 oral suspension (Stomach Relief) irbesartan 150 mg tablet 150 mg PO DAILY 03/16/23 06/24/24 acetaminophen 500 mg tablet (Pain 1,000 mg PO Q6H PRN Pain 10/24/23 06/24/24 Reliever (acetaminophen)) aspirin 81 mg tablet,delayed 81 mg PO DAILY 10/24/23 06/24/24 release cetirizine 10 mg capsule 10 mg PO BEDTIME PRN Allergy 10/24/23 06/24/24 Symptoms empagliflozin 25 mg tablet 25 mg PO DAILY 10/24/23 06/24/24 (Jardiance) atorvastatin 80 mg tablet 80 mg PO BEDTIME 12/31/23 06/24/24 glucose 4 gram chewable tablet 16 g PO PRN PRN LOW BLOOD SUGAR 12/31/23 06/24/24 ibuprofen 600 mg tablet 600 mg PO TID PRN Pain 12/31/23 06/24/24 promethazine 25 mg tablet 25 mg PO Q6H PRN Nausea And 12/31/23 06/24/24 Vomiting Previous Rx's Medication Instructions Recorded metoprolol succinate 25 mg 25 mg PO DAILY #90 tabs 11/01/23 tablet,extended release 24 hr glucagon HCl 1 mg solution for 1 mg SUBCUT Q20M PRN hypoglycemia 12/17/23 injection (Glucagon (HCl) #1 ea Emergency Kit) insulin lispro 100 unit/mL 5 unit (0.05 mL) SUBCUT TID #15 mL 01/02/24 subcutaneous pen (Humalog KwikPen (U-100) Insulin) apixaban 5 mg tablet (Eliquis) 5 mg PO BID #180 tabs 01/28/24 blood-glucose sensor (Dexcom G6 #3 ea 01/31/24 Sensor device) tirzepatide 7.5 mg/0.5 mL See Rx Instructions .Route 02/01/24 subcutaneous pen injector .COMPLEX #2 mL (Mounjaro) omeprazole 40 mg capsule,delayed 40 mg PO DAILY #30 caps 04/19/24 release ondansetron 4 mg disintegrating 4 mg PO Q8H PRN nausea and 04/19/24 tablet vomiting #20 tabs aripiprazole 30 mg tablet 15 mg (1/2 x 30 mg) PO BID 30 days 04/21/24 #30 tabs divalproex 500 mg tablet,extended 2,000 mg (4 x 500 mg) PO BEDTIME 04/21/24 release 24 hr 30 days #120 tabs olanzapine 5 mg disintegrating 5 mg PO DAILY PRN 04/21/24 tablet agitation/anxiety #30 tabs venlafaxine 75 mg capsule,extended 225 mg (3 x 75 mg) PO QAM #90 caps 04/21/24 release 24 hr tirzepatide 10 mg/0.5 mL See Rx Instructions .Route 05/12/24 subcutaneous pen injector .COMPLEX #2 mL (Mounjaro) blood-glucose meter,continuous #1 ea 05/14/24 (FreeStyle Stacey 3 [place]) blood-glucose sensor (FreeStyle #2 ea 05/14/24 Stacey 3 Sensor device) blood-glucose transmitter (Dexcom #1 ea 06/12/24 G6 Transmitter device) blood-glucose meter,continuous #1 ea 06/13/24 (Dexcom G6 Encyclopedia Research Worker) pioglitazone 45 mg tablet See Rx Instructions .Route 06/20/24 .COMPLEX #30 tabs diazepam 5 mg tablet 5 mg PO BID #60 tabs 06/23/24 metformin 1,000 mg tablet See Rx Instructions .Route 06/23/24 .COMPLEX #90 tabs Allergies Allergy/AdvReac Type Severity Reaction Status Date / Time No Known Allergies Allergy Verified 06/24/24 11:21 Review of Systems General: Reports: 10 or more systems reviewed and unremarkable except in HPI and below PFSH ED PFSH: Medical History Coronary-myocardial bridge Peripheral neuropathy Type 2 diabetes mellitus Hyperlipidemia Hypertension Pulmonary embolism Other reactions to severe stress Bipolar 1 disorder Most recent episode depressed Fracture of [facility] Psychiatric care Surgical History History of appendectomy Social History Smoking and tobacco/nicotine status: never used tobacco/nicotine Alcohol intake: current Alcohol intake frequency: few times a month Substance/Drug Use: never Marital status: Single Physical Exam Const: COMMON NORMALS: no acute distress, average body habitus, patient oriented x3, no limitations, healthy appearing, alert and well nourished HENMT: COMMON NORMALS: normocephalic, atraumatic, hearing grossly normal bilaterally, external ears normal, Normal external nose present and moist oral mucous membranes HEAD & SCALP: normocephalic and atraumatic NOSE: Normal external nose present EXTERNAL EAR: Yes external ears normal Neck/C-Spine: COMMON NORMALS: no JVD Chest: COMMONS NORMALS: normal inspection of the chest and normal palpation of entire chest wall Resp: COMMON NORMALS: normal respiratory effort, No retractions, No use of accessory muscles and clear to auscultation bilaterally AUSCULTATION: clear to auscultation bilaterally Cardio: COMMON NORMALS: no JVD, regular rate, regular rhythm, S1 normal heart sound present, S2 normal heart sound present, No gallops present (Cardio), No clicks present (Cardio), No murmurs present (Cardio) and No rub (Cardio) RATE: regular rate RHYTHM: regular rhythm HEART SOUNDS: S1 normal heart sound present and S2 normal heart sound present GI: COMMON NORMALS: Normal to inspection, nondistended, normoactive bowel sounds present, Soft to palpation, non-tender, No hepatosplenomegaly present and no masses PALPATION: Yes Soft to palpation and Yes No hepatosplenomegaly present Neuro: COMMON NORMALS: patient oriented x3 SENSORIUM/ORIENTATION: Yes alert Course Vital Signs: Vital signs: Vital Signs Temperature 97.8 F 06/28/24 02:22 Pulse Rate 90 06/28/24 02:22 Respiratory Rate 18 06/28/24 02:22 Blood Pressure 141/96 06/28/24 02:22 Pulse Oximetry 97 06/28/24 02:22 MDM - Anxiety Medical Decision Making Patient was given additional Zyprexa 5 mg iDisk. Patient be discharged back to his facility. Medical Records I reviewed the patient's medical records. Lab Data I reviewed the patient's lab results. No radiology studies performed this visit Discharge Plan Discharge Patient Disposition: Home Clinical Impression: Acute anxiety Condition: Stable Prescriptions: No Action gabapentin [Neurontin] 300 mg capsule 300 mg PO BID (DME) FreeStyle Stacey 3 [place] Misc See Rx Instructions .Route Qty: 1 0RF Rx Instructions: As directed (DME) FreeStyle Stacey 3 Sensor Device See Rx Instructions .Route Qty: 2 3RF Rx Instructions: As directed venlafaxine 75 mg capsule,extended release 24hr 225 mg PO QAM Qty: 90 1RF Rx Instructions: Take three capsules by mouth every morning divalproex 500 mg tablet extended release 24 hr 2,000 mg PO BEDTIME 30 Days Qty: 120 1RF olanzapine 5 mg tablet,disintegrating 5 mg PO DAILY PRN (Reason: agitation/anxiety) Qty: 30 1RF Rx Instructions: Take 1 tablet daily in evening(after 5 PM up until bedtime),if needed aripiprazole 30 mg tablet 15 mg PO BID 30 Days Qty: 30 1RF omeprazole 40 mg capsule,delayed release(DR/EC) 40 mg PO DAILY Qty: 30 0RF ondansetron 4 mg tablet,disintegrating 4 mg PO Q8H PRN (Reason: nausea and vomiting) Qty: 20 0RF (DME) Dexcom G6 Sensor Device See Rx Instructions .Route Qty: 3 2RF Rx Instructions: As directed metoprolol succinate 25 mg tablet extended release 24 hr 25 mg PO DAILY Qty: 90 0RF glucagon HCl [Glucagon (HCl) Emergency Kit] 1 mg recon soln 1 mg SUBCUT Q20M PRN (Reason: hypoglycemia) Qty: 1 1RF Rx Instructions: until target blood sugar attained insulin lispro [Humalog KwikPen Insulin] 100 unit/mL insulin pen 5 unit SUBCUT TID Qty: 15 1RF Rx Instructions: 5units every 4 hours as needed for blood sugars above 400 Eliquis 5 mg tablet 5 mg PO BID Qty: 180 3RF Mounjaro 7.5 mg/0.5 mL pen injector See Rx Instructions .ROUTE .COMPLEX Qty: 2 3RF Dose Instruction: INJECT 7.5MG SUBCUTANEOUSLY EVERY 7 DAYS Rx Instructions: INJECT 7.5MG SUBCUTANEOUSLY EVERY 7 DAYS Mounjaro 10 mg/0.5 mL pen injector See Rx Instructions .ROUTE .COMPLEX Qty: 2 1RF Dose Instruction: inject 10mg (0.5ml) SUBCUTANEOUSLY EVERY 7 DAYS Rx Instructions: inject 10mg (0.5ml) SUBCUTANEOUSLY EVERY 7 DAYS (DME) Dexcom G6 Transmitter Device See Rx Instructions .ROUTE .COMPLEX Qty: 1 0RF Dose Instruction: CHANGE transmitter every 90 DAYS Rx Instructions: CHANGE transmitter every 90 DAYS (DME) Dexcom G6 Encyclopedia Research Worker Misc See Rx Instructions .ROUTE .COMPLEX Qty: 1 0RF Dose Instruction: USE DIRECTED Rx Instructions: USE DIRECTED pioglitazone 45 mg tablet See Rx Instructions .ROUTE .COMPLEX Qty: 30 0RF Dose Instruction: TAKE 1 TABLET BY MOUTH EVERY DAY Rx Instructions: TAKE 1 TABLET BY MOUTH EVERY DAY diazepam 5 mg tablet 5 mg PO BID Qty: 60 3RF metformin 1,000 mg tablet See Rx Instructions .ROUTE .COMPLEX Qty: 90 0RF Dose Instruction: TAKE 1 TABLET BY MOUTH EVERY DAY Rx Instructions: TAKE 1 TABLET BY MOUTH EVERY DAY aspirin 81 mg tablet,delayed release (DR/EC) 81 mg PO DAILY acetaminophen [Pain Reliever (acetaminophen)] 500 mg tablet 1,000 mg PO Q6H PRN (Reason: Pain) cetirizine 10 mg Capsule 10 mg PO BEDTIME PRN (Reason: Allergy Symptoms) Jardiance 25 mg tablet 25 mg PO DAILY bismuth subsalicylate [Stomach Relief] 262 mg/15 mL suspension 262 mg PO Q4H PRN (Reason: Indigestion) irbesartan 150 mg tablet 150 mg PO DAILY atorvastatin 80 mg tablet 80 mg PO BEDTIME promethazine 25 mg tablet 25 mg PO Q6H PRN (Reason: Nausea And Vomiting) glucose 4 gram Tablet,Chewable 16 g PO PRN PRN (Reason: LOW BLOOD SUGAR) Rx Instructions: for bs lower than 60 ibuprofen 600 mg tablet 600 mg PO TID PRN (Reason: Pain) Discharge Orders: Discharge ED (Routine); Ordered 06/28/24 Ordered By: Deep Swann Referrals: Bautista Ruiz MD [Primary Care Provider] - 1 week Patient Instructions: Anxiety (ED) Activity Restrictions/Additional Instructions: Thank you for choosing [facility] for your healthcare needs today. Please realize that you were seen in the emergency department and that we are providing you with an emergency medical screening exam and this may not be a complete and all exclusive of all testing and/or medical workup we may need to determine your element or severity of your illness. It is very important that you follow-up as instructed with your primary care provider or specialist for the additional evaluation and to discuss your medical treatment plan. You may return to the emergency department should you have concerns or if your condition changes or worsens in any way. Coding Level of Care Code ED Switch Foreman for Dasha Nix
[2024-06-28 02:31] VITALS: BP 141/96; PULSE 88; RESP 18; O2SAT 96
[2024-06-28] MEDS: OLANZapine 5 mg ODT PO (02:38)
[2024-06-28 02:43] VITALS: BP 141/96; PULSE 93; RESP 18; O2SAT 98
== END 2024-06-28 02:46 | disposition home or self-care (01) ==
PROVIDERS: Emergency Provider Emergency Medicine; PCP Family Medicine
DX: F41.9 Anxiety disorder, unspecified (principal); Z79.01 Long term (current) use of anticoagulants; Z79.4 Long term (current) use of insulin; Z79.85 Long-term (current) use of injectable non-insulin antidiabetic drugs; Z79.82 Long term (current) use of aspirin; E11.42 Type 2 diabetes mellitus with diabetic polyneuropathy; E78.5 Hyperlipidemia, unspecified
CPT/HCPCS: 99283

== ENCOUNTER 2024-06-28 16:38 | Emergency (ER) | payer MEDICARE, MEDICAID, SELFPAY ==
[2024-06-28 17:00] VITALS: BP 144/88; PULSE 105; RESP 18; TEMP 36.7; O2SAT 96
--- NOTE | 2024-06-28 17:18 | ED_ITS ---
HPI - Anxiety General: Chief Complaint: Anxiety Stated Complaint: high anxiety Time Seen by Provider: 06/28/24 17:12 History of Present Illness: Patient presents to the emergency room for the second time today with worsening anxiety with request that we increase my medications . He had received some additional Zyprexa on a visit earlier today. He has not utilized the crisis center. I discussed with him that I am not a psychiatrist and adjusting his psychiatric medications is not appropriate in the emergency room. I directed him to the crisis center where he is going immediately at discharge. Related Data Home Medications Medication Instructions Recorded Confirmed gabapentin 300 mg capsule 300 mg PO BID 10/11/22 06/24/24 (Neurontin) bismuth subsalicylate 262 mg/15 mL 262 mg PO Q4H PRN Indigestion 03/16/23 06/24/24 oral suspension (Stomach Relief) irbesartan 150 mg tablet 150 mg PO DAILY 03/16/23 06/24/24 acetaminophen 500 mg tablet (Pain 1,000 mg PO Q6H PRN Pain 10/24/23 06/24/24 Reliever (acetaminophen)) aspirin 81 mg tablet,delayed 81 mg PO DAILY 10/24/23 06/24/24 release cetirizine 10 mg capsule 10 mg PO BEDTIME PRN Allergy 10/24/23 06/24/24 Symptoms empagliflozin 25 mg tablet 25 mg PO DAILY 10/24/23 06/24/24 (Jardiance) atorvastatin 80 mg tablet 80 mg PO BEDTIME 12/31/23 06/24/24 glucose 4 gram chewable tablet 16 g PO PRN PRN LOW BLOOD SUGAR 12/31/23 06/24/24 ibuprofen 600 mg tablet 600 mg PO TID PRN Pain 12/31/23 06/24/24 promethazine 25 mg tablet 25 mg PO Q6H PRN Nausea And 12/31/23 06/24/24 Vomiting Previous Rx's Medication Instructions Recorded metoprolol succinate 25 mg 25 mg PO DAILY #90 tabs 11/01/23 tablet,extended release 24 hr glucagon HCl 1 mg solution for 1 mg SUBCUT Q20M PRN hypoglycemia 12/17/23 injection (Glucagon (HCl) #1 ea Emergency Kit) insulin lispro 100 unit/mL 5 unit (0.05 mL) SUBCUT TID #15 mL 01/02/24 subcutaneous pen (Humalog KwikPen (U-100) Insulin) apixaban 5 mg tablet (Eliquis) 5 mg PO BID #180 tabs 01/28/24 blood-glucose sensor (Dexcom G6 #3 ea 01/31/24 Sensor device) tirzepatide 7.5 mg/0.5 mL See Rx Instructions .Route 02/01/24 subcutaneous pen injector .COMPLEX #2 mL (Mounjaro) omeprazole 40 mg capsule,delayed 40 mg PO DAILY #30 caps 04/19/24 release ondansetron 4 mg disintegrating 4 mg PO Q8H PRN nausea and 04/19/24 tablet vomiting #20 tabs aripiprazole 30 mg tablet 15 mg (1/2 x 30 mg) PO BID 30 days 04/21/24 #30 tabs divalproex 500 mg tablet,extended 2,000 mg (4 x 500 mg) PO BEDTIME 04/21/24 release 24 hr 30 days #120 tabs olanzapine 5 mg disintegrating 5 mg PO DAILY PRN 04/21/24 tablet agitation/anxiety #30 tabs venlafaxine 75 mg capsule,extended 225 mg (3 x 75 mg) PO QAM #90 caps 04/21/24 release 24 hr tirzepatide 10 mg/0.5 mL See Rx Instructions .Route 05/12/24 subcutaneous pen injector .COMPLEX #2 mL (Mounjaro) blood-glucose meter,continuous #1 ea 05/14/24 (FreeStyle Stacey 3 [place]) blood-glucose sensor (FreeStyle #2 ea 05/14/24 Stacey 3 Sensor device) blood-glucose transmitter (Dexcom #1 ea 06/12/24 G6 Transmitter device) blood-glucose meter,continuous #1 ea 06/13/24 (Dexcom G6 Public Works Manager) pioglitazone 45 mg tablet See Rx Instructions .Route 06/20/24 .COMPLEX #30 tabs diazepam 5 mg tablet 5 mg PO BID #60 tabs 06/23/24 metformin 1,000 mg tablet See Rx Instructions .Route 06/23/24 .COMPLEX #90 tabs Allergies Allergy/AdvReac Type Severity Reaction Status Date / Time No Known Allergies Allergy Verified 06/28/24 17:05 Review of Systems Narrative: Constitutional symptoms: Negative except as documented in HPI. Skin symptoms: Negative except as documented in HPI. Eye symptoms: Negative except as documented in HPI. ENMT symptoms: Negative except as documented in HPI. Respiratory symptoms: Negative except as documented in HPI. Cardiovascular symptoms: Negative except as documented in HPI. Gastrointestinal symptoms: Negative except as documented in HPI. Genitourinary symptoms: Negative except as documented in HPI. Musculoskeletal symptoms: Negative except as documented in HPI. Neurologic symptoms: Negative except as documented in HPI. Psychiatric symptoms: Negative except as documented in HPI. Endocrine symptoms: Negative except as documented in HPI. [facility] ED PFSH: Medical History Coronary-myocardial bridge Peripheral neuropathy Type 2 diabetes mellitus Hyperlipidemia Hypertension Pulmonary embolism Other reactions to severe stress Bipolar 1 disorder Most recent episode depressed Fracture of [facility] Psychiatric care Surgical History History of appendectomy Social History Smoking and tobacco/nicotine status: never used tobacco/nicotine Alcohol intake: current Alcohol intake frequency: few times a month Substance/Drug Use: never Marital status: Single Physical Exam Narrative: EXAM NARRATIVE: General: Alert, no acute distress. Skin: warm and dry Head: Normocephalic Neck: Trachea midline Eye: Extraocular movements are intact. Ears, nose, mouth and throat: Oral mucosa moist Respiratory: Respirations are non-labored Musculoskeletal: Normal ROM Neurological: Alert and oriented, No focal neurological deficit observed. Psychiatric: Cooperative, flat affect Course Vital Signs: Vital signs: Vital Signs Temperature 98.0 F 06/28/24 17:00 Pulse Rate 105 H 06/28/24 17:00 Respiratory Rate 18 06/28/24 17:00 Blood Pressure 144/88 06/28/24 17:00 Pulse Oximetry 96 06/28/24 17:00 Oxygen Delivery Me thod Room Air 06/28/24 17:00 MDM - Anxiety Medical Decision Making Assessment and plan: Anxiety ? Patient discharged to follow-up with the crisis center. - Discharged home - Discussed plan with patient. Answered any questions. - Evaluation and treatment of this problem were appropriate in the emergency setting. No radiology studies performed this visit Discharge Plan Discharge Patient Disposition: Home Clinical Impression: Acute anxiety, PTSD (post-traumatic stress disorder) Condition: Stable Prescriptions: No Action gabapentin [Neurontin] 300 mg capsule 300 mg PO BID (DME) FreeStyle Stacey 3 [place] Misc See Rx Instructions .Route Qty: 1 0RF Rx Instructions: As directed (DME) FreeStyle Stacey 3 Sensor Device See Rx Instructions .Route Qty: 2 3RF Rx Instructions: As directed venlafaxine 75 mg capsule,extended release 24hr 225 mg PO QAM Qty: 90 1RF Rx Instructions: Take three capsules by mouth every morning divalproex 500 mg tablet extended release 24 hr 2,000 mg PO BEDTIME 30 Days Qty: 120 1RF olanzapine 5 mg tablet,disintegrating 5 mg PO DAILY PRN (Reason: agitation/anxiety) Qty: 30 1RF Rx Instructions: Take 1 tablet daily in evening(after 5 PM up until bedtime),if needed aripiprazole 30 mg tablet 15 mg PO BID 30 Days Qty: 30 1RF omeprazole 40 mg capsule,delayed release(DR/EC) 40 mg PO DAILY Qty: 30 0RF ondansetron 4 mg tablet,disintegrating 4 mg PO Q8H PRN (Reason: nausea and vomiting) Qty: 20 0RF (DME) Dexcom G6 Sensor Device See Rx Instructions .Route Qty: 3 2RF Rx Instructions: As directed metoprolol succinate 25 mg tablet extended release 24 hr 25 mg PO DAILY Qty: 90 0RF glucagon HCl [Glucagon (HCl) Emergency Kit] 1 mg recon soln 1 mg SUBCUT Q20M PRN (Reason: hypoglycemia) Qty: 1 1RF Rx Instructions: until target blood sugar attained insulin lispro [Humalog KwikPen Insulin] 100 unit/mL insulin pen 5 unit SUBCUT TID Qty: 15 1RF Rx Instructions: 5units every 4 hours as needed for blood sugars above 400 Eliquis 5 mg tablet 5 mg PO BID Qty: 180 3RF Mounjaro 7.5 mg/0.5 mL pen injector See Rx Instructions .ROUTE .COMPLEX Qty: 2 3RF Dose Instruction: INJECT 7.5MG SUBCUTANEOUSLY EVERY 7 DAYS Rx Instructions: INJECT 7.5MG SUBCUTANEOUSLY EVERY 7 DAYS Mounjaro 10 mg/0.5 mL pen injector See Rx Instructions .ROUTE .COMPLEX Qty: 2 1RF Dose Instruction: inject 10mg (0.5ml) SUBCUTANEOUSLY EVERY 7 DAYS Rx Instructions: inject 10mg (0.5ml) SUBCUTANEOUSLY EVERY 7 DAYS (DME) Dexcom G6 Transmitter Device See Rx Instructions .ROUTE .COMPLEX Qty: 1 0RF Dose Instruction: CHANGE transmitter every 90 DAYS Rx Instructions: CHANGE transmitter every 90 DAYS (DME) Dexcom G6 Public Works Manager Misc See Rx Instructions .ROUTE .COMPLEX Qty: 1 0RF Dose Instruction: USE DIRECTED Rx Instructions: USE DIRECTED pioglitazone 45 mg tablet See Rx Instructions .ROUTE .COMPLEX Qty: 30 0RF Dose Instruction: TAKE 1 TABLET BY MOUTH EVERY DAY Rx Instructions: TAKE 1 TABLET BY MOUTH EVERY DAY diazepam 5 mg tablet 5 mg PO BID Qty: 60 3RF metformin 1,000 mg tablet See Rx Instructions .ROUTE .COMPLEX Qty: 90 0RF Dose Instruction: TAKE 1 TABLET BY MOUTH EVERY DAY Rx Instructions: TAKE 1 TABLET BY MOUTH EVERY DAY aspirin 81 mg tablet,delayed release (DR/EC) 81 mg PO DAILY acetaminophen [Pain Reliever (acetaminophen)] 500 mg tablet 1,000 mg PO Q6H PRN (Reason: Pain) cetirizine 10 mg Capsule 10 mg PO BEDTIME PRN (Reason: Allergy Symptoms) Jardiance 25 mg tablet 25 mg PO DAILY bismuth subsalicylate [Stomach Relief] 262 mg/15 mL suspension 262 mg PO Q4H PRN (Reason: Indigestion) irbesartan 150 mg tablet 150 mg PO DAILY atorvastatin 80 mg tablet 80 mg PO BEDTIME promethazine 25 mg tablet 25 mg PO Q6H PRN (Reason: Nausea And Vomiting) glucose 4 gram Tablet,Chewable 16 g PO PRN PRN (Reason: LOW BLOOD SUGAR) Rx Instructions: for bs lower than 60 ibuprofen 600 mg tablet 600 mg PO TID PRN (Reason: Pain) Discharge Orders: Discharge ED (Routine); Ordered 06/28/24 Ordered By: Bety Yanez Referrals: Bautista Ruiz MD [Primary Care Provider] - Discharge Diet: Usual diet Discharge Activity: Increase activity as tolerated Patient Instructions: Anxiety (ED) Activity Restrictions/Additional Instructions: Please go directly to the crisis unit. If you develop suicidal thoughts, or thoughts of harming yourself, or thoughts of harming others please seek medical attention immediately. Thank you for choosing [facility] for your healthcare needs today. Please realize this is an emergency room and that we are providing you with a medical screening exam and this may not be complete and all inclusive of all the testing and or work up that you may need to determine your ailment or severity of your illness. You have been screened and evaluated and felt safe for discharge. Health conditions do change or evolve sometimes and as such it is important that you follow up with your Primary Doctor to be re checked, 3-5 days is a general good time frame for follow up. You are always welcome to return to the ED for re assessment if your symptoms are worsening or you have new concerns Coding Level of Care Code ED Quill Stripper for Dasha Nix
== END 2024-06-28 17:37 | disposition home or self-care (01) ==
PROVIDERS: Emergency Provider Emergency Medicine; PCP Family Medicine
DX: F41.9 Anxiety disorder, unspecified (principal); F43.10 Post-traumatic stress disorder, unspecified; Z79.4 Long term (current) use of insulin; Z79.01 Long term (current) use of anticoagulants; Z79.85 Long-term (current) use of injectable non-insulin antidiabetic drugs; Z79.84 Long term (current) use of oral hypoglycemic drugs; Z79.82 Long term (current) use of aspirin; E11.42 Type 2 diabetes mellitus with diabetic polyneuropathy; E78.5 Hyperlipidemia, unspecified; I10 Essential (primary) hypertension
CPT/HCPCS: 99281

== ENCOUNTER 2024-06-29 16:12 | Emergency (ER) | payer MEDICARE, MEDICAID, SELFPAY ==
[2024-06-29 16:22] VITALS: BP 161/95; PULSE 114; RESP 16; TEMP 36.7; O2SAT 95; BMI 33.3
[2024-06-29 16:30] VITALS: BP 133/89; PULSE 108; O2SAT 95
--- NOTE | 2024-06-29 16:32 | PC.NURSE ---
AFTER COMPLETING TRIAGE ASSESSMENT, PATIENT STATED HE DOES NOT FEEL SAFE WITH HIS CURRENT CAREGIVER. PT STATES HE FEELS LIKE CURRENT CAREGIVER TALKS DOWN ON HIM AND MAKES COMMENTS SUCH YOURE GOING TO [facility], AND RAISES HER VOICE. MD NOTIFIED.
--- NOTE | 2024-06-29 16:38 | PC.NURSE ---
AFTER TALKING WITH DR. BARROSO, CAREGIVER TO STAY IN WAITING ROOM UNTIL FURTHER EVALUATION OF COMMENTS REGARDING CAREGIVER.
[2024-06-29 16:53] LABS: Basophils % 0.3 %; Eosinophils % 0.6 %; Hematocrit 52.3 % (37-53); Lymphocytes # 2.5 10^3/uL (0.8-4.8); Lymphocytes % 36.2 %; Mean Corpuscular HGB Conc 33.3 g/dL (30-55); Mean Corpuscular Hemoglobin 29.6 pg (27-33); Mean Corpuscular Volume 88.9 fl (82-101); Mean Platelet Volume 10.9 fL (7.4-10.4); Monocytes # 0.6 10^3/uL (0.2-0.9); Monocytes % 8.2 %; Neutrophils # 3.72 10^3/uL (1.8-7.7); Neutrophils % 54.4 %; Nucleated Red Blood Cells % 0 %; Platelet Count 212 10^3/cmm (157-399); Red Blood Count 5.88 10^6/uL (3.85-5.65); Red Cell Distribution Width 14.1 % (12.1-15.1); White Blood Count 6.83 10^3/uL (3.29-11.43)
[2024-06-29 17:00] VITALS: BP 148/84; PULSE 96; O2SAT 95
--- NOTE | 2024-06-29 17:01 | W.ED.SEIZURE ---
HPI - Seizure General: Chief Complaint: Seizure Stated Complaint: seizure Time Seen by Provider: 06/29/24 16:23 History of Present Illness: HPI Narrative: 44-year-old male presents emergency room via EMS from a half-way. He states he had a possible seizure. He cannot recall exactly what happened he says he has a bit of a headache now. He also commented that he is upset with his caregiver. He had some conflict earlier today we did talk to the caregiver that she endorsed this but had slightly different perspective on it this is a recurring thing of had this issue with his particular patient in the past. At this point he is denying any chest or abdominal pain no shortness of breath. He does have a known history of seizure disorder and is not recently had any medication changes. Seizure History: No Associated symptoms: Deny chest pain, chills or fever(s) Related Data Home Medications Medication Instructions Recorded Confirmed gabapentin 300 mg capsule 300 mg PO BID 10/11/22 06/24/24 (Neurontin) bismuth subsalicylate 262 mg/15 mL 262 mg PO Q4H PRN Indigestion 03/16/23 06/24/24 oral suspension (Stomach Relief) irbesartan 150 mg tablet 150 mg PO DAILY 03/16/23 06/24/24 acetaminophen 500 mg tablet (Pain 1,000 mg PO Q6H PRN Pain 10/24/23 06/24/24 Reliever (acetaminophen)) aspirin 81 mg tablet,delayed 81 mg PO DAILY 10/24/23 06/24/24 release cetirizine 10 mg capsule 10 mg PO BEDTIME PRN Allergy 10/24/23 06/24/24 Symptoms empagliflozin 25 mg tablet 25 mg PO DAILY 10/24/23 06/24/24 (Jardiance) atorvastatin 80 mg tablet 80 mg PO BEDTIME 12/31/23 06/24/24 glucose 4 gram chewable tablet 16 g PO PRN PRN LOW BLOOD SUGAR 12/31/23 06/24/24 ibuprofen 600 mg tablet 600 mg PO TID PRN Pain 12/31/23 06/24/24 promethazine 25 mg tablet 25 mg PO Q6H PRN Nausea And 12/31/23 06/24/24 Vomiting Previous Rx's Medication Instructions Recorded metoprolol succinate 25 mg 25 mg PO DAILY #90 tabs 11/01/23 tablet,extended release 24 hr glucagon HCl 1 mg solution for 1 mg SUBCUT Q20M PRN hypoglycemia 12/17/23 injection (Glucagon (HCl) #1 ea Emergency Kit) insulin lispro 100 unit/mL 5 unit (0.05 mL) SUBCUT TID #15 mL 01/02/24 subcutaneous pen (Humalog KwikPen (U-100) Insulin) apixaban 5 mg tablet (Eliquis) 5 mg PO BID #180 tabs 01/28/24 blood-glucose sensor (Dexcom G6 #3 ea 01/31/24 Sensor device) tirzepatide 7.5 mg/0.5 mL See Rx Instructions .Route 02/01/24 subcutaneous pen injector .COMPLEX #2 mL (Mounjaro) omeprazole 40 mg capsule,delayed 40 mg PO DAILY #30 caps 04/19/24 release ondansetron 4 mg disintegrating 4 mg PO Q8H PRN nausea and 04/19/24 tablet vomiting #20 tabs aripiprazole 30 mg tablet 15 mg (1/2 x 30 mg) PO BID 30 days 04/21/24 #30 tabs divalproex 500 mg tablet,extended 2,000 mg (4 x 500 mg) PO BEDTIME 04/21/24 release 24 hr 30 days #120 tabs olanzapine 5 mg disintegrating 5 mg PO DAILY PRN 04/21/24 tablet agitation/anxiety #30 tabs venlafaxine 75 mg capsule,extended 225 mg (3 x 75 mg) PO QAM #90 caps 04/21/24 release 24 hr tirzepatide 10 mg/0.5 mL See Rx Instructions .Route 05/12/24 subcutaneous pen injector .COMPLEX #2 mL (Mounjaro) blood-glucose meter,continuous #1 ea 05/14/24 (FreeStyle Stacey 3 [place]) blood-glucose sensor (FreeStyle #2 ea 05/14/24 Stacey 3 Sensor device) blood-glucose transmitter (Dexcom #1 ea 06/12/24 G6 Transmitter device) blood-glucose meter,continuous #1 ea 06/13/24 (Dexcom G6 Heel Builder) pioglitazone 45 mg tablet See Rx Instructions .Route 06/20/24 .COMPLEX #30 tabs diazepam 5 mg tablet 5 mg PO BID #60 tabs 06/23/24 metformin 1,000 mg tablet See Rx Instructions .Route 06/23/24 .COMPLEX #90 tabs Allergies Allergy/AdvReac Type Severity Reaction Status Date / Time No Known Allergies Allergy Verified 06/28/24 17:05 Review of Systems Const: Denies: fever(s) or chills Card: Denies: chest pain Resp: Denies: dyspnea GI: Denies: abdominal pain : Denies: dysuria, urinary frequency or urinary urgency Musc: Denies: neck pain or back pain Skin/Breast: Denies: rash PFSH ED PFSH: Medical History Coronary-myocardial bridge Peripheral neuropathy Type 2 diabetes mellitus Hyperlipidemia Hypertension Pulmonary embolism Other reactions to severe stress Bipolar 1 disorder Most recent episode depressed Fracture of [facility] Surgical History History of appendectomy Social History Smoking and tobacco/nicotine status: never used tobacco/nicotine Alcohol intake: current Alcohol intake frequency: few times a month Substance/Drug Use: never Marital status: Single Physical Exam Const: COMMON NORMALS: no acute distress GENERAL APPEARANCE: cooperative and comfortable ORIENTATION/CONSCIOUSNESS: Yes awake HENMT: COMMON NORMALS: normocephalic, atraumatic and hearing grossly normal bilaterally HEAD & SCALP: normocephalic and atraumatic Resp: COMMON NORMALS: normal respiratory effort, No retractions, No use of accessory muscles and clear to auscultation bilaterally AUSCULTATION: clear to auscultation bilaterally Cardio: COMMON NORMALS: regular rate, regular rhythm and No murmurs present (Cardio) RATE: regular rate RHYTHM: regular rhythm GI: COMMON NORMALS: Soft to palpation and No hepatosplenomegaly present AUSCULTATION: Yes normoactive bowel sounds PALPATION: Yes Soft to palpation, No Tenderness to palpation present (GI), No Guarding due to palpation present (GI) and Yes No hepatosplenomegaly present Extremity: COMMON NORMALS: normal to inspection, capillary refill normal, no clubbing, cyanosis or edema, no calf tenderness and no pedal edema Skin: COMMON NORMALS: no rashes or lesions noted GENERAL SKIN EXAM: no rashes or lesions noted Course Vital Signs: Vital signs: Vital Signs Temperature 98.0 F 06/29/24 16:22 Pulse Rate 111 H 06/29/24 18:39 Respiratory Rate 17 06/29/24 18:39 Blood Pressure 123/73 06/29/24 18:39 Pulse Oximetry 100 06/29/24 18:39 Oxygen Delivery Me thod Room Air 06/29/24 17:30 MDM - Seizure MDM Narrative Medical decision making narrative: Laboratory studies unremarkable he did get a valproic acid level.. Patient's ammonia lactic and CPK are normal. No recent behavior issues associated with uncertain of he will he truly did have a seizure. Laboratory test did not look like it is not particularly as postictal. Given he has no history of seizure disorder I would not change his medications at this time recommend he follow-up with his neurologist review the valproic acid level and adjust medications as indicated. Lab Data 06/29/24 16:35 06/29/24 16:35 Labs: Laboratory Results WBC 6.83 10^3/uL (3.29-11.43) 06/29/24 16:35 RBC 5.88 10^6/uL (3.85-5.65) H 06/29/24 16:35 Hgb 17.40 g/dL (11.27-16.99) H 06/29/24 16:35 Hct 52.3 % (37-53) 06/29/24 16:35 MCV 88.9 fl (82-101) 06/29/24 16:35 MCH 29.6 pg (27-33) 06/29/24 16:35 MCHC 33.3 g/dL (30-55) 06/29/24 16:35 RDW 14.1 % (12.1-15.1) 06/29/24 16:35 Plt Count 212 10^3/cmm (157-399) 06/29/24 16:35 MPV 10.9 fL (7.4-10.4) H 06/29/24 16:35 Neut % (Auto) 54.4 % 06/29/24 16:35 Lymph % (Auto) 36.2 % 06/29/24 16:35 [place] % (Auto) 8.2 % 06/29/24 16:35 Eos % (Auto) 0.6 % 06/29/24 16:35 Baso % (Auto) 0.3 % 06/29/24 16:35 Neut # (Auto) 3.72 10^3/uL (1.8-7.7) 06/29/24 16:35 Lymph # (Auto) 2.5 10^3/uL (0.8-4.8) 06/29/24 16:35 [place] # (Auto) 0.6 10^3/uL (0.2-0.9) 06/29/24 16:35 Eos # (Auto) 0.0 10^3/uL (0.0-0.8) 06/29/24 16:35 Baso # (Auto) 0.0 10^3/uL (0.0-0.1) 06/29/24 16:35 Nucleated RBC % (auto) 0 % 06/29/24 16:35 Nucleated RBCs # 0.0 /100WBC 06/29/24 16:35 Sodium 142 mmol/L (136-145) 06/29/24 16:35 Potassium 3.7 mmol/L (3.5-5.1) 06/29/24 16:35 Chloride 101 mmol/L (98-107) 06/29/24 16:35 Carbon Dioxide 28 mmol/L (22-29) 06/29/24 16:35 Anion Gap 16.7 (5-19) 06/29/24 16:35 BUN 8 mg/dL (6-20) 06/29/24 16:35 Creatinine 0.8 mg/dL (0.7-1.2) 06/29/24 16:35 GFR Calculation 104.5 mL/min (90-130) 06/29/24 16:35 Glucose 206 mg/dL (65-115) H 06/29/24 16:35 Calculated Osmolality 298 mOsm/kg (285-295) H 06/29/24 16:35 Lactic Acid 1.6 mmol/L (0.5-2.2) 06/29/24 17:50 Calcium 9.5 mg/dL (8.5-10.5) 06/29/24 16:35 Magnesium 1.8 mg/dL (1.7-2.3) 06/29/24 16:35 Total Bilirubin 0.4 mg/dL (0.15-1.2) 06/29/24 16:35 AST 17 U/L (0-40) 06/29/24 16:35 ALT 19 U/L (0-41) 06/29/24 16:35 Alkaline Phosphatase 82 U/L (40-130) 06/29/24 16:35 Ammonia 60 umol/L (16-60) 06/29/24 17:50 Creatine Kinase 134 U/L (39-308) 06/29/24 16:35 Total Protein 7.0 g/dL (6.6-8.7) 06/29/24 16:35 Albumin 4.5 g/dL (3.5-5.2) 06/29/24 16:35 Globulin 2.5 g/dL (1.3-4.6) 06/29/24 16:35 Valproic Acid 60.6 ug/mL (50-100) 06/29/24 16:35 No radiology studies performed this visit Discharge Plan Discharge Patient Disposition: Home Clinical Impression: Generalized seizure Condition: Stable Prescriptions: No Action gabapentin [Neurontin] 300 mg capsule 300 mg PO BID (DME) FreeStyle Stacey 3 [place] Misc See Rx Instructions .Route Qty: 1 0RF Rx Instructions: As directed (DME) FreeStyle Stacey 3 Sensor Device See Rx Instructions .Route Qty: 2 3RF Rx Instructions: As directed venlafaxine 75 mg capsule,extended release 24hr 225 mg PO QAM Qty: 90 1RF Rx Instructions: Take three capsules by mouth every morning divalproex 500 mg tablet extended release 24 hr 2,000 mg PO BEDTIME 30 Days Qty: 120 1RF olanzapine 5 mg tablet,disintegrating 5 mg PO DAILY PRN (Reason: agitation/anxiety) Qty: 30 1RF Rx Instructions: Take 1 tablet daily in evening(after 5 PM up until bedtime),if needed aripiprazole 30 mg tablet 15 mg PO BID 30 Days Qty: 30 1RF omeprazole 40 mg capsule,delayed release(DR/EC) 40 mg PO DAILY Qty: 30 0RF ondansetron 4 mg tablet,disintegrating 4 mg PO Q8H PRN (Reason: nausea and vomiting) Qty: 20 0RF (DME) Dexcom G6 Sensor Device See Rx Instructions .Route Qty: 3 2RF Rx Instructions: As directed metoprolol succinate 25 mg tablet extended release 24 hr 25 mg PO DAILY Qty: 90 0RF glucagon HCl [Glucagon (HCl) Emergency Kit] 1 mg recon soln 1 mg SUBCUT Q20M PRN (Reason: hypoglycemia) Qty: 1 1RF Rx Instructions: until target blood sugar attained insulin lispro [Humalog KwikPen Insulin] 100 unit/mL insulin pen 5 unit SUBCUT TID Qty: 15 1RF Rx Instructions: 5units every 4 hours as needed for blood sugars above 400 Eliquis 5 mg tablet 5 mg PO BID Qty: 180 3RF Mounjaro 7.5 mg/0.5 mL pen injector See Rx Instructions .ROUTE .COMPLEX Qty: 2 3RF Dose Instruction: INJECT 7.5MG SUBCUTANEOUSLY EVERY 7 DAYS Rx Instructions: INJECT 7.5MG SUBCUTANEOUSLY EVERY 7 DAYS Mounjaro 10 mg/0.5 mL pen injector See Rx Instructions .ROUTE .COMPLEX Qty: 2 1RF Dose Instruction: inject 10mg (0.5ml) SUBCUTANEOUSLY EVERY 7 DAYS Rx Instructions: inject 10mg (0.5ml) SUBCUTANEOUSLY EVERY 7 DAYS ([facility] [place]) Dexcom G6 Transmitter Device See Rx Instructions .ROUTE .COMPLEX Qty: 1 0RF Dose Instruction: CHANGE transmitter every 90 DAYS Rx Instructions: CHANGE transmitter every 90 DAYS ([facility] [place]) Dexcom G6 Heel Builder Misc See Rx Instructions .ROUTE .COMPLEX Qty: 1 0RF Dose Instruction: USE DIRECTED Rx Instructions: USE DIRECTED pioglitazone 45 mg tablet See Rx Instructions .ROUTE .COMPLEX Qty: 30 0RF Dose Instruction: TAKE 1 TABLET BY MOUTH EVERY DAY Rx Instructions: TAKE 1 TABLET BY MOUTH EVERY DAY diazepam 5 mg tablet 5 mg PO BID Qty: 60 3RF metformin 1,000 mg tablet See Rx Instructions .ROUTE .COMPLEX Qty: 90 0RF Dose Instruction: TAKE 1 TABLET BY MOUTH EVERY DAY Rx Instructions: TAKE 1 TABLET BY MOUTH EVERY DAY aspirin 81 mg tablet,delayed release (DR/EC) 81 mg PO DAILY acetaminophen [Pain Reliever (acetaminophen)] 500 mg tablet 1,000 mg PO Q6H PRN (Reason: Pain) cetirizine 10 mg Capsule 10 mg PO BEDTIME PRN (Reason: Allergy Symptoms) Jardiance 25 mg tablet 25 mg PO DAILY bismuth subsalicylate [Stomach Relief] 262 mg/15 mL suspension 262 mg PO Q4H PRN (Reason: Indigestion) irbesartan 150 mg tablet 150 mg PO DAILY atorvastatin 80 mg tablet 80 mg PO BEDTIME promethazine 25 mg tablet 25 mg PO Q6H PRN (Reason: Nausea And Vomiting) glucose 4 gram Tablet,Chewable 16 g PO PRN PRN (Reason: LOW BLOOD SUGAR) Rx Instructions: for bs lower than 60 ibuprofen 600 mg tablet 600 mg PO TID PRN (Reason: Pain) Discharge Orders: Discharge ED (Routine); Ordered 06/29/24 Ordered By: Lencho Mayes Referrals: Bautista Ruiz MD [Primary Care Provider] - Patient Instructions: Opioid Safety, Pain Management Activity Restrictions/Additional Instructions: Thank you for choosing [facility] for your healthcare needs today. It is very important that you follow up as instructed or that you return to the Emergency Department should you have concerns or if your condition changes or worsens in any way. You were seen today after a seizure. Your laboratory tests were normal. Recommend continue current medications and follow-up with your neurologist. Coding Level of Care Code ED Brine Supervisor for Dasha Nix
[2024-06-29 17:08] LABS: Alanine Aminotransferase 19 U/L (0-41); Albumin Level 4.5 g/dL (3.5-5.2); Alkaline Phosphatase 82 U/L (40-130); Anion Gap 16.7 (5-19); Aspartate Amino Transferase 17 U/L (0-40); Blood Urea Nitrogen 8 mg/dL (6-20); Calcium 9.5 mg/dL (8.5-10.5); Carbon Dioxide 28 mmol/L (22-29); Chloride 101 mmol/L (98-107); Creatinine Clr Calc Pharmacy 154.7768; Globulin 2.5 g/dL (1.3-4.6); Glomerular Filtration Rate 104.5 mL/min (90-130); Glucose 206 mg/dL (65-115); Magnesium 1.8 mg/dL (1.7-2.3); Osmolality Calculated 298 mOsm/kg (285-295); Potassium 3.7 mmol/L (3.5-5.1); Sodium 142 mmol/L (136-145); Total Bilirubin 0.4 mg/dL (0.15-1.2)
[2024-06-29 17:30] VITALS: BP 149/88; PULSE 93; O2SAT 99
--- NOTE | 2024-06-29 17:31 | PC.NURSE ---
OKAY[employer] CAREGIVER COMING BACK AT THIS TIME.
[2024-06-29 17:36] LABS: Creatine Phosphokinase 134 U/L (39-308)
[2024-06-29 18:14] LABS: Ammonia 60 umol/L (16-60); Lactic Sepsis W/Reflex 1.6 mmol/L (0.5-2.2)
[2024-06-29 18:39] VITALS: BP 123/73; PULSE 111; RESP 17; O2SAT 100
[2024-06-29 20:32] LABS: Valproic Acid Level 60.6 ug/mL (50-100)
== END 2024-06-29 18:41 | disposition home or self-care (01) ==
PROVIDERS: Emergency Provider Family Medicine; PCP Family Medicine
DX: G40.89 Other seizures (principal); E11.42 Type 2 diabetes mellitus with diabetic polyneuropathy; E78.5 Hyperlipidemia, unspecified; I10 Essential (primary) hypertension; Z79.01 Long term (current) use of anticoagulants; Z79.4 Long term (current) use of insulin; Z79.85 Long-term (current) use of injectable non-insulin antidiabetic drugs; Z79.84 Long term (current) use of oral hypoglycemic drugs; Z79.82 Long term (current) use of aspirin
CPT/HCPCS: 36415; 80053; 80164; 82140; 82550; 83605; 83735; 85025; 99283

== ENCOUNTER → 2024-07-03 15:06 | Outpatient (BNVA) | payer MEDICARE, OTHER, SELFPAY | PROVIDERS: PCP Family Medicine; Visit Provider Podiatrist Foot & Ankle Surgery | DX: L60.3 Nail dystrophy (principal); E11.42 Type 2 diabetes mellitus with diabetic polyneuropathy; Z79.4 Long term (current) use of insulin; Z79.84 Long term (current) use of oral hypoglycemic drugs | CPT/HCPCS: 11721; 99213 ==

== ENCOUNTER 2024-07-05 21:47 | Emergency (ER) | payer MEDICARE, MEDICAID, SELFPAY ==
[2024-07-05 21:53] VITALS: BP 137/92; PULSE 112; RESP 17; TEMP 36.6; O2SAT 96; BMI 33.0
[2024-07-05 23:47] LABS: Basophils % 0.4 %; Eosinophils # 0.1 10^3/uL (0.0-0.8); Eosinophils % 1.4 %; Hematocrit 49.3 % (37-53); Lymphocytes # 2.8 10^3/uL (0.8-4.8); Lymphocytes % 50.3 %; Mean Corpuscular HGB Conc 32.5 g/dL (30-55); Mean Corpuscular Hemoglobin 29.8 pg (27-33); Mean Corpuscular Volume 91.8 fl (82-101); Mean Platelet Volume 10.9 fL (7.4-10.4); Monocytes # 0.4 10^3/uL (0.2-0.9); Monocytes % 7.7 %; Neutrophils # 2.21 10^3/uL (1.8-7.7); Neutrophils % 39.8 %; Nucleated Red Blood Cells % 0 %; Platelet Count 201 10^3/cmm (157-399); Red Blood Count 5.37 10^6/uL (3.85-5.65); Red Cell Distribution Width 14.2 % (12.1-15.1); White Blood Count 5.55 10^3/uL (3.29-11.43)
[2024-07-06 00:17] LABS: Alanine Aminotransferase 20 U/L (0-41); Albumin Level 4.1 g/dL (3.5-5.2); Alkaline Phosphatase 83 U/L (40-130); Anion Gap 18.2 (5-19); Aspartate Amino Transferase 17 U/L (0-40); Blood Urea Nitrogen 12 mg/dL (6-20); Calcium 9.2 mg/dL (8.5-10.5); Carbon Dioxide 25 mmol/L (22-29); Chloride 103 mmol/L (98-107); Creatinine Clr Calc Pharmacy 175.8616; Globulin 2.6 g/dL (1.3-4.6); Glucose 230 mg/dL (65-115); Osmolality Calculated 301 mOsm/kg (285-295); Potassium 4.2 mmol/L (3.5-5.1); Sodium 142 mmol/L (136-145); Total Bilirubin 0.3 mg/dL (0.15-1.2); Total Protein 6.7 g/dL (6.6-8.7)
[2024-07-06 02:08] LABS: C Reactive Protein 8.1 mg/L (0.0-4.9); Lipase 31 U/L (13-60)
[2024-07-06 03:37] VITALS: BP 151/96; PULSE 93; RESP 16; O2SAT 97
[2024-07-06 04:07] VITALS: BP 136/96; PULSE 93; RESP 18; O2SAT 97
--- NOTE | 2024-07-06 04:11 | XRR_ITS ---
PROCEDURE INFORMATION: Exam: XR Abdomen Exam date and time: 07/06/2024 4:15 AM Age: 44 years old Clinical indication: Abdominal pain; Generalized; Patient HX: C/O diffuse abd pain TECHNIQUE: Imaging protocol: Radiologic exam of the abdomen. Views: Frontal supine view of the abdomen. 1 View. COMPARISON: CR (ABDOMEN, ) 10/14/2023 8:01 PM FINDINGS: Gastrointestinal tract: No dilated loops of large or small bowel is appreciated. There is a moderate amount of stool within the colon. No pathologic calcifications are identified. Bones/joints: Unremarkable. XR/XR KUB portable 97820 IMPRESSION: 1. Fecal stasis.
[2024-07-06 04:33] LABS: Charge for UA Resulting for Rev
[2024-07-06 04:36] LABS: Bilirubin Urine Negative (Negative); Blood Urine Negative (Negative); Glucose Urine UA 3+ (Normal); Ketones Urine Trace (Negative); Leukocyte Esterase Urine Negative (Negative); Nitrate Urine Negative (Negative); Protein Urine Negative (Negative); Urine Appearance Clear (CLEAR); Urine Color Yellow (Yellow); pH Urine 6.5 (5-7)
[2024-07-06 04:37] VITALS: BP 133/91; PULSE 94; RESP 17; O2SAT 95
[2024-07-06 04:37] LABS: Specific Gravity, Urine 1.042 (1.005-1.030)
[2024-07-06 04:37] LABS: Glucose Point of Care 126 mg/dL (70-110)
[2024-07-06 04:39] LABS: Bacteria Urine None Seen /hpf; Hyaline Casts Urine 0-4 /lpf; RBC Urine 0-2 /hpf (0-2); Squamous Epithelial Cell Urine 0-5 /hpf (0-5); WBC Urine 0-5 /hpf (0-5)
[2024-07-06] MEDS: diphenoxylate/atropine Tablet 1 TAB PO (05:09)
--- NOTE | 2024-07-06 05:54 | W.ED.ABDPA2 ---
HPI - Abdominal Pain General: Chief Complaint: Abdominal Pain Stated Complaint: flank pain History of Present Illness: 44-year-old male well-known to the emergency department. He presents with right-sided flank pain, back pain, abdominal pain for the past several hours. He says pain is accompanied with loose stool. He said loose stool most of the day. It has been black he says. He denies Pepto-Bismol use. He vomited 1 time 3 days ago. No fever. Related Data Home Medications Medication Instructions Recorded Confirmed gabapentin 300 mg capsule 300 mg PO BID 10/11/22 07/03/24 (Neurontin) bismuth subsalicylate 262 mg/15 mL 262 mg PO Q4H PRN Indigestion 03/16/23 07/03/24 oral suspension (Stomach Relief) irbesartan 150 mg tablet 150 mg PO DAILY 03/16/23 07/03/24 acetaminophen 500 mg tablet (Pain 1,000 mg PO Q6H PRN Pain 10/24/23 07/03/24 Reliever (acetaminophen)) aspirin 81 mg tablet,delayed 81 mg PO DAILY 10/24/23 07/03/24 release cetirizine 10 mg capsule 10 mg PO BEDTIME PRN Allergy 10/24/23 07/03/24 Symptoms empagliflozin 25 mg tablet 25 mg PO DAILY 10/24/23 07/03/24 (Jardiance) atorvastatin 80 mg tablet 80 mg PO BEDTIME 12/31/23 07/03/24 glucose 4 gram chewable tablet 16 g PO PRN PRN LOW BLOOD SUGAR 12/31/23 07/03/24 ibuprofen 600 mg tablet 600 mg PO TID PRN Pain 12/31/23 07/03/24 promethazine 25 mg tablet 25 mg PO Q6H PRN Nausea And 12/31/23 07/03/24 Vomiting Previous Rx's Medication Instructions Recorded metoprolol succinate 25 mg 25 mg PO DAILY #90 tabs 11/01/23 tablet,extended release 24 hr glucagon HCl 1 mg solution for 1 mg SUBCUT Q20M PRN hypoglycemia 12/17/23 injection (Glucagon (HCl) #1 ea Emergency Kit) insulin lispro 100 unit/mL 5 unit (0.05 mL) SUBCUT TID #15 mL 01/02/24 subcutaneous pen (Humalog KwikPen (U-100) Insulin) apixaban 5 mg tablet (Eliquis) 5 mg PO BID #180 tabs 01/28/24 omeprazole 40 mg capsule,delayed 40 mg PO DAILY #30 caps 04/19/24 release tirzepatide 10 mg/0.5 mL See Rx Instructions .Route 05/12/24 subcutaneous pen injector .COMPLEX #2 mL (Mounjaro) blood-glucose meter,continuous #1 ea 05/14/24 (FreeStyle Stacey 3 [place]) blood-glucose sensor (FreeStyle #2 ea 05/14/24 Stacey 3 Sensor device) pioglitazone 45 mg tablet See Rx Instructions .Route 06/20/24 .COMPLEX #30 tabs metformin 1,000 mg tablet See Rx Instructions .Route 06/23/24 .COMPLEX #90 tabs aripiprazole 30 mg tablet 15 mg (1/2 x 30 mg) PO BID 30 days 07/01/24 #30 tabs divalproex 500 mg tablet,extended 2,000 mg (4 x 500 mg) PO BEDTIME 07/01/24 release 24 hr 30 days #120 tabs olanzapine 5 mg disintegrating 5 mg PO BID PRN agitation/anxiety 07/01/24 tablet #60 tabs venlafaxine 75 mg capsule,extended 225 mg (3 x 75 mg) PO QAM #90 caps 07/01/24 release 24 hr diazepam 5 mg tablet 5 mg PO TID #90 tabs 07/02/24 ondansetron 4 mg disintegrating 4 mg PO Q8H PRN nausea and 07/02/24 tablet vomiting #20 tabs mupirocin 2 % topical ointment 1 applic topical DAILY 2 weeks #22 07/03/24 grams psyllium husk (aspartame) 3.4 3 g PO BID #425 grams 07/06/24 gram/5.8 gram oral powder (Metamucil Sugar-Free (aspartame)) Allergies Allergy/AdvReac Type Severity Reaction Status Date / Time No Known Allergies Allergy Verified 07/05/24 21:57 [facility] PFS: Medical History Coronary-myocardial bridge Peripheral neuropathy Type 2 diabetes mellitus Hyperlipidemia Hypertension Pulmonary embolism Other reactions to severe stress Bipolar 1 disorder Most recent episode depressed Fracture of [facility] Surgical History History of appendectomy Social History Smoking and tobacco/nicotine status: never used tobacco/nicotine Alcohol intake: current Alcohol intake frequency: few times a month Substance/Drug Use: never Marital status: Single Physical Exam Const: COMMON NORMALS: no acute distress GENERAL APPEARANCE: cooperative; not ill appearing and not frail appearing HENMT: COMMON NORMALS: normocephalic, atraumatic and Normal external nose present HEAD & SCALP: normocephalic and atraumatic FACE & SINUS: normal facial exam and face symmetric NOSE: Normal external nose present Eye: COMMON NORMALS: Equal, round and reactive pupils present and EOMs intact bilaterally PUPIL: Yes Equal, round and reactive pupils present Neck/C-Spine: GENERAL: Yes trachea midline Chest: CHEST: Yes Symmetrical chest wall rise Resp: COMMON NORMALS: normal respiratory effort, No retractions, No use of accessory muscles and clear to auscultation bilaterally AUSCULTATION: clear to auscultation bilaterally Cardio: COMMON NORMALS: regular rate and regular rhythm RATE: regular rate RHYTHM: regular rhythm GI: COMMON NORMALS: Normal to inspection, nondistended, normoactive bowel sounds present and Soft to palpation PALPATION: Yes Soft to palpation and Yes Tenderness to palpation present (GI) (Minimal) Extremity: COMMON NORMALS: no pedal edema Neuro: MALINDA COMA SCALE: document GCS findings [place] coma scale eye opening: Spontaneous [place] coma scale verbal response: Orientated [place] coma scale motor response: Obey commands Malinda coma scale total score: 15 SENSORY EXAM: Yes extremities (intact) Psych: COMMON NORMALS: speech normal SPEECH: Yes normal speech Skin: COMMON NORMALS: no rashes or lesions noted GENERAL SKIN EXAM: no rashes or lesions noted Course Vital Signs: Vital signs: Vital Signs Temperature 98 F 07/05/24 21:53 Pulse Rate 94 07/06/24 04:37 Respiratory Rate 17 07/06/24 04:37 Blood Pressure 133/91 07/06/24 04:37 Pulse Oximetry 95 07/06/24 04:37 Oxygen Delivery Me thod Room Air 07/05/24 21:53 MDM - Abdominal Pain Medical Decision Making X-ray shows fecal stasis. Vitals are stable. He is afebrile. White blood cell count is 5.5, hemoglobin 16. Sugar is 230. Urinalysis is negative. CRP is only 8. Suspect liquid stool he is having is likely encopresis surrounding fecal stasis. Will add fiber to his diet to soften solid stool, and hopefully bulk up liquid stool. He will be discharged. He knows to return for worsening or new symptoms. Lab Data 07/05/24 23:33 07/05/24 23:33 Labs/Radiology: Radiology Impressions KUB X-Ray 07/06/24 04:11 IMPRESSION: 1. Fecal stasis. Laboratory Results WBC 5.55 10^3/uL (3.29-11.43) 07/05/24 23:33 RBC 5.37 10^6/uL (3.85-5.65) 07/05/24 23:33 Hgb 16.00 g/dL (11.27-16.99) 07/05/24 23:33 Hct 49.3 % (37-53) 07/05/24 23:33 MCV 91.8 fl (82-101) 07/05/24 23:33 MCH 29.8 pg (27-33) 07/05/24 23:33 MCHC 32.5 g/dL (30-55) 07/05/24 23:33 RDW 14.2 % (12.1-15.1) 07/05/24 23:33 Plt Count 201 10^3/cmm (157-399) 07/05/24 23:33 MPV 10.9 fL (7.4-10.4) H 07/05/24 23:33 Neut % (Auto) 39.8 % 07/05/24 23:33 Lymph % (Auto) 50.3 % 07/05/24 23:33 [place] % (Auto) 7.7 % 07/05/24 23:33 Eos % (Auto) 1.4 % 07/05/24 23:33 Baso % (Auto) 0.4 % 07/05/24 23:33 Neut # (Auto) 2.21 10^3/uL (1.8-7.7) 07/05/24 23:33 Lymph # (Auto) 2.8 10^3/uL (0.8-4.8) 07/05/24 23:33 [place] # (Auto) 0.4 10^3/uL (0.2-0.9) 07/05/24 23:33 Eos # (Auto) 0.1 10^3/uL (0.0-0.8) 07/05/24 23:33 Baso # (Auto) 0.0 10^3/uL (0.0-0.1) 07/05/24 23:33 Nucleated RBC % (auto) 0 % 07/05/24 23:33 Nucleated RBCs # 0.0 /100WBC 07/05/24 23:33 Sodium 142 mmol/L (136-145) 07/05/24 23:33 Potassium 4.2 mmol/L (3.5-5.1) 07/05/24 23:33 Chloride 103 mmol/L (98-107) 07/05/24 23:33 Carbon Dioxide 25 mmol/L (22-29) 07/05/24 23:33 Anion Gap 18.2 (5-19) 07/05/24 23:33 BUN 12 mg/dL (6-20) 07/05/24 23:33 Creatinine 0.7 mg/dL (0.7-1.2) 07/05/24 23:33 GFR Calculation 122.0 mL/min (90-130) 07/05/24 23:33 Glucose 230 mg/dL (65-115) H 07/05/24 23:33 POC Glucose 126 mg/dL (70-110) H 07/06/24 04:33 Calculated Osmolality 301 mOsm/kg (285-295) H 07/05/24 23:33 Calcium 9.2 mg/dL (8.5-10.5) 07/05/24 23:33 Total Bilirubin 0.3 mg/dL (0.15-1.2) 07/05/24 23:33 AST 17 U/L (0-40) 07/05/24 23:33 ALT 20 U/L (0-41) 07/05/24 23:33 Alkaline Phosphatase 83 U/L (40-130) 07/05/24 23:33 C-Reactive Protein 8.1 mg/L (0.0-4.9) H 07/04/24 23:33 Total Protein 6.7 g/dL (6.6-8.7) 07/05/24 23:33 Albumin 4.1 g/dL (3.5-5.2) 07/05/24 23:33 Globulin 2.6 g/dL (1.3-4.6) 07/05/24 23:33 Lipase 31 U/L (13-60) 07/04/24 23:33 Urine Color Yellow (Yellow) 07/06/24 04:30 Urine Appearance Clear (CLEAR) 07/06/24 04:30 Urine pH 6.5 (5-7) 07/06/24 04:30 Ur Specific Bruce 1.042 (1.005-1.030) H 07/06/24 04:30 Urine Protein Negative (Negative) 07/06/24 04:30 Urine Glucose (UA) 3+ (Normal) H 07/06/24 04:30 Urine Ketones Trace (Negative) 07/06/24 04:30 Urine Blood Negative (Negative) 07/06/24 04:30 Urine Nitrate Negative (Negative) 07/06/24 04:30 Urine Bilirubin Negative (Negative) 07/06/24 04:30 Urine Urobilinogen 1.0 mg/dL (Negative) 07/06/24 04:30 Ur Leukocyte Esterase Negative (Negative) 07/06/24 04:30 Urine RBC 0-2 /hpf (0-2) 07/06/24 04:30 Urine WBC 0-5 /hpf (0-5) 07/06/24 04:30 Ur Squamous Epith Cells 0-5 /hpf (0-5) 07/06/24 04:30 Amorphous Sediment Not Reportable 07/06/24 04:30 Urine Bacteria None seen /hpf (NONE) 07/06/24 04:30 Hyaline Casts 0-4 /lpf H 07/06/24 04:30 All radiology interpretation(s) finalized by discharge Discharge Plan Discharge Patient Disposition: Home Clinical Impression: Diarrhea Prescriptions: New Metamucil Sugar-Free (aspart) 3.4 gram/5.8 gram powder 3 g PO BID Qty: 425 0RF No Action gabapentin [Neurontin] 300 mg capsule 300 mg PO BID (DME) FreeStyle Stacey 3 [place] Misc See Rx Instructions .Route Qty: 1 0RF Rx Instructions: As directed (DME) FreeStyle Stacey 3 Sensor Device See Rx Instructions .Route Qty: 2 3RF Rx Instructions: As directed omeprazole 40 mg capsule,delayed release(DR/EC) 40 mg PO DAILY Qty: 30 0RF venlafaxine 75 mg capsule,extended release 24hr 225 mg PO QAM Qty: 90 1RF Rx Instructions: Take three capsules by mouth every morning olanzapine 5 mg tablet,disintegrating 5 mg PO BID PRN (Reason: agitation/anxiety) Qty: 60 1RF Rx Instructions: Take one tablet up to twice daily, if needed for agitation/anxiety aripiprazole 30 mg tablet 15 mg PO BID 30 Days Qty: 30 1RF divalproex 500 mg tablet extended release 24 hr 2,000 mg PO BEDTIME 30 Days Qty: 120 1RF diazepam 5 mg tablet 5 mg PO TID Qty: 90 1RF Rx Instructions: Take one tablet by mouth morning, afternoon, and evening, at least 4 hours apart mupirocin 2 % ointment 1 applic topical DAILY 14 Days Qty: 22 0RF metoprolol succinate 25 mg tablet extended release 24 hr 25 mg PO DAILY Qty: 90 0RF glucagon HCl [Glucagon (HCl) Emergency Kit] 1 mg recon soln 1 mg SUBCUT Q20M PRN (Reason: hypoglycemia) Qty: 1 1RF Rx Instructions: until target blood sugar attained insulin lispro [Humalog KwikPen Insulin] 100 unit/mL insulin pen 5 unit SUBCUT TID Qty: 15 1RF Rx Instructions: 5units every 4 hours as needed for blood sugars above 400 Eliquis 5 mg tablet 5 mg PO BID Qty: 180 3RF Mounjaro 10 mg/0.5 mL pen injector See Rx Instructions .ROUTE .COMPLEX Qty: 2 1RF Dose Instruction: inject 10mg (0.5ml) SUBCUTANEOUSLY EVERY 7 DAYS Rx Instructions: inject 10mg (0.5ml) SUBCUTANEOUSLY EVERY 7 DAYS pioglitazone 45 mg tablet See Rx Instructions .ROUTE .COMPLEX Qty: 30 0RF Dose Instruction: TAKE 1 TABLET BY MOUTH EVERY DAY Rx Instructions: TAKE 1 TABLET BY MOUTH EVERY DAY metformin 1,000 mg tablet See Rx Instructions .ROUTE .COMPLEX Qty: 90 0RF Dose Instruction: TAKE 1 TABLET BY MOUTH EVERY DAY Rx Instructions: TAKE 1 TABLET BY MOUTH EVERY DAY ondansetron 4 mg tablet,disintegrating 4 mg PO Q8H PRN (Reason: nausea and vomiting) Qty: 20 0RF aspirin 81 mg tablet,delayed release (DR/EC) 81 mg PO DAILY acetaminophen [Pain Reliever (acetaminophen)] 500 mg tablet 1,000 mg PO Q6H PRN (Reason: Pain) cetirizine 10 mg Capsule 10 mg PO BEDTIME PRN (Reason: Allergy Symptoms) Jardiance 25 mg tablet 25 mg PO DAILY bismuth subsalicylate [Stomach Relief] 262 mg/15 mL suspension 262 mg PO Q4H PRN (Reason: Indigestion) irbesartan 150 mg tablet 150 mg PO DAILY atorvastatin 80 mg tablet 80 mg PO BEDTIME promethazine 25 mg tablet 25 mg PO Q6H PRN (Reason: Nausea And Vomiting) glucose 4 gram Tablet,Chewable 16 g PO PRN PRN (Reason: LOW BLOOD SUGAR) Rx Instructions: for bs lower than 60 ibuprofen 600 mg tablet 600 mg PO TID PRN (Reason: Pain) Discharge Orders: Discharge ED (Routine); Ordered 07/06/24 Ordered By: Abdiel Garcia Referrals: Bautista Ruiz MD [Primary Care Provider] - Patient Instructions: Abdominal Pain (ED) Activity Restrictions/Additional Instructions: Your x-ray actually shows that despite your diarrhea, you have an increase in stool in your colon. Diarrhea can be helped in these situations by increasing dietary fiber intake by supplementation. You have been written a prescription for this. Return for fasting clots in the stool, fever, vomiting liquids, other concerning symptoms. Coding Level of Care Code ED Box Folding Machine Operator for Dasha Nix
== END 2024-07-06 05:25 | disposition home or self-care (01) ==
PROVIDERS: Emergency Provider Emergency Medicine; PCP Family Medicine
DX: R19.7 Diarrhea, unspecified (principal); Z79.01 Long term (current) use of anticoagulants; Z79.4 Long term (current) use of insulin; Z79.84 Long term (current) use of oral hypoglycemic drugs; Z79.82 Long term (current) use of aspirin; E11.42 Type 2 diabetes mellitus with diabetic polyneuropathy; E78.5 Hyperlipidemia, unspecified; I10 Essential (primary) hypertension
CPT/HCPCS: 36415; 36416; 74018; 80053; 81003; 81015; 82962; 83690; 85025; 86140; 99284

== ENCOUNTER 2024-07-15 21:17 | Emergency (ER) | payer MEDICARE, MEDICAID, SELFPAY ==
[2024-07-15 21:19] VITALS: BP 137/92; PULSE 112; RESP 16; TEMP 36.7; O2SAT 97; BMI 29.7
--- NOTE | 2024-07-15 21:19 | CTR_ITS ---
PROCEDURE INFORMATION: Exam: CT Head Without Contrast Exam date and time: 07/15/2024 9:26 PM Age: 44 years old Clinical indication: Injury or trauma; Additional info: Fall TECHNIQUE: Imaging protocol: Computed tomography of the head without contrast. Radiation optimization: All CT scans at this facility use at least one of these dose optimization techniques: automated exposure control; mA and/or kV adjustment per patient size (includes targeted exams where dose is matched to clinical indication); or iterative reconstruction. COMPARISON: CT head wo con* [id number] 12/10/2023 2:25 AM RADIATION DOSE METRICS: Total DLP (mGy-cm): 1173 FINDINGS: Brain: Normal. No hemorrhage. Unremarkable white matter. No mass effect. Cerebral ventricles: No ventriculomegaly. Paranasal sinuses: Visualized sinuses are unremarkable. No fluid levels. Mastoid air cells: Visualized mastoid air cells are well aerated. Bones: Unremarkable. No acute fracture. Soft tissues: Unremarkable. CT/CT head wo con* [id number] IMPRESSION: No acute intracranial abnormality.
--- NOTE | 2024-07-15 21:19 | CTR_ITS ---
PROCEDURE INFORMATION: Exam: CT Cervical Spine Without Contrast Exam date and time: 07/15/2024 9:26 PM Age: 44 years old Clinical indication: Injury or trauma; Additional info: Fall TECHNIQUE: Imaging protocol: Computed tomography of the cervical spine without contrast. Radiation optimization: All CT scans at this facility use at least one of these dose optimization techniques: automated exposure control; mA and/or kV adjustment per patient size (includes targeted exams where dose is matched to clinical indication); or iterative reconstruction. COMPARISON: CT angio headneck* [id number] 03/17/2023 8:49 PM RADIATION DOSE METRICS: Total DLP (mGy-cm): 868 FINDINGS: Bones: There are degenerative changes throughout the visualized spine including marginal osteophyte formations, endplate degenerative changes, and facet arthropathy. Multilevel disc space narrowing. No disc bulge or focal protrusions are seen. Lungs: Lung apices are normal. Soft tissues: There are benign-appearing soft tissue calcifications. CT/CT cervical spin wo con* [id number] IMPRESSION: There are degenerative changes as described above. No evidence for acute fracture.
--- NOTE | 2024-07-15 21:39 | ED_ITS ---
HPI - Fall General: Chief Complaint: Fall Stated Complaint: FALL Time Seen by Provider: 07/15/24 21:22 Source: patient and EMS Mode of arrival: EMS Limitations: no limitations History of Present Illness: 44-year-old male states he is taking tra sh out today and fell and hit his head on concrete just prior to arrival. He has a headache he denies any loss conscious does have an abrasion to his forehead hematoma. He denies any other injuries with his fall. Associated symptoms-after fall: Reports headache(s); Denies abdominal pain, chest pain or neck pain Related Data Home Medications Medication Instructions Recorded Confirmed gabapentin 300 mg capsule 300 mg PO BID 10/11/22 07/03/24 (Neurontin) bismuth subsalicylate 262 mg/15 mL 262 mg PO Q4H PRN Indigestion 03/16/23 07/03/24 oral suspension (Stomach Relief) irbesartan 150 mg tablet 150 mg PO DAILY 03/16/23 07/03/24 acetaminophen 500 mg tablet (Pain 1,000 mg PO Q6H PRN Pain 10/24/23 07/03/24 Reliever (acetaminophen)) aspirin 81 mg tablet,delayed 81 mg PO DAILY 10/24/23 07/03/24 release cetirizine 10 mg capsule 10 mg PO BEDTIME PRN Allergy 10/24/23 07/03/24 Symptoms empagliflozin 25 mg tablet 25 mg PO DAILY 10/24/23 07/03/24 (Jardiance) atorvastatin 80 mg tablet 80 mg PO BEDTIME 12/31/23 07/03/24 glucose 4 gram chewable tablet 16 g PO PRN PRN LOW BLOOD SUGAR 12/31/23 07/03/24 ibuprofen 600 mg tablet 600 mg PO TID PRN Pain 12/31/23 07/03/24 promethazine 25 mg tablet 25 mg PO Q6H PRN Nausea And 12/31/23 07/03/24 Vomiting Previous Rx's Medication Instructions Recorded metoprolol succinate 25 mg 25 mg PO DAILY #90 tabs 11/01/23 tablet,extended release 24 hr glucagon HCl 1 mg solution for 1 mg SUBCUT Q20M PRN hypoglycemia 12/17/23 injection (Glucagon (HCl) #1 ea Emergency Kit) insulin lispro 100 unit/mL 5 unit (0.05 mL) SUBCUT TID #15 mL 01/02/24 subcutaneous pen (Humalog KwikPen (U-100) Insulin) apixaban 5 mg tablet (Eliquis) 5 mg PO BID #180 tabs 01/28/24 omeprazole 40 mg capsule,delayed 40 mg PO DAILY #30 caps 04/19/24 release blood-glucose meter,continuous #1 ea 05/14/24 (FreeStyle Stacey 3 [place]) blood-glucose sensor (FreeStyle #2 ea 05/14/24 Stacey 3 Sensor device) metformin 1,000 mg tablet See Rx Instructions .Route 06/23/24 .COMPLEX #90 tabs aripiprazole 30 mg tablet 15 mg (1/2 x 30 mg) PO BID 30 days 07/01/24 #30 tabs divalproex 500 mg tablet,extended 2,000 mg (4 x 500 mg) PO BEDTIME 07/01/24 release 24 hr 30 days #120 tabs olanzapine 5 mg disintegrating 5 mg PO BID PRN agitation/anxiety 07/01/24 tablet #60 tabs venlafaxine 75 mg capsule,extended 225 mg (3 x 75 mg) PO QAM #90 caps 07/01/24 release 24 hr diazepam 5 mg tablet 5 mg PO TID #90 tabs 07/02/24 ondansetron 4 mg disintegrating 4 mg PO Q8H PRN nausea and 07/02/24 tablet vomiting #20 tabs mupirocin 2 % topical ointment 1 applic topical DAILY 2 weeks #22 07/03/24 grams psyllium husk (aspartame) 3.4 3 g PO BID #425 grams 07/06/24 gram/5.8 gram oral powder (Metamucil Sugar-Free (aspartame)) tirzepatide 10 mg/0.5 mL See Rx Instructions .Route 07/09/24 subcutaneous pen injector .COMPLEX #2 mL (Mounjaro) pioglitazone 45 mg tablet See Rx Instructions .Route 07/15/24 .COMPLEX #30 tabs Allergies Allergy/AdvReac Type Severity Reaction Status Date / Time No Known Allergies Allergy Verified 07/05/24 21:57 Review of Systems Const: Denies: fever(s), chills, body aches or change in appetite Eyes: Denies: blurry vision or eye discomfort ENMT: Denies: throat pain or dental pain Card: Denies: chest pain Resp: Denies: dyspnea GI: Denies: abdominal pain, nausea, vomiting or diarrhea Musc: Denies: neck pain or back pain Skin/Breast: Denies: rash Neuro: Reports: headache(s) PFSH ED PFSH: Medical History Coronary-myocardial bridge Peripheral neuropathy Type 2 diabetes mellitus Hyperlipidemia Hypertension Pulmonary embolism Other reactions to severe stress Bipolar 1 disorder Most recent episode depressed [facility]racture of [facility] Psychiatric care Surgical History History of appendectomy Social History Smoking and tobacco/nicotine status: never used tobacco/nicotine Alcohol intake: current Alcohol intake frequency: few times a month Substance/Drug Use: never Marital status: Single Physical Exam Const: COMMON NORMALS: no acute distress, patient oriented x3 and healthy appearing HENMT: OTHER: Abrasion hematoma noted to forehead Eye: COMMON NORMALS: Equal, round and reactive pupils present and EOMs intact bilaterally PUPIL: Yes Equal, round and reactive pupils present Neck/C-Spine: COMMON NORMALS: full ROM and supple Chest: COMMONS NORMALS: normal inspection of the chest Resp: COMMON NORMALS: normal respiratory effort Cardio: COMMON NORMALS: regular rate, regular rhythm and No murmurs present (Cardio) RATE: regular rate RHYTHM: regular rhythm Extremity: COMMON NORMALS: normal to inspection and full ROM Neuro: COMMON NORMALS: patient oriented x3, moves all extremities and no focal motor deficits Psych: COMMON NORMALS: mental status grossly normal, Normal thought process present and cooperative THOUGHT PROCESS: Normal thought process present Skin: COMMON NORMALS: no rashes or lesions noted and no wounds GENERAL SKIN EXAM: no rashes or lesions noted Course Vital Signs: Vital signs: Vital Signs Temperature 98.0 F 07/15/24 21:19 Pulse Rate 112 H 07/15/24 21:19 Respiratory Rate 16 07/15/24 21:19 Blood Pressure 137/92 07/15/24 21:19 Pulse Oximetry 97 07/15/24 21:19 Oxygen Delivery Me thod Room Air 07/15/24 21:19 MDM - Fall Medical Decision Making Patient presents here with a closed head injury from a fall he has no lacerations head CT neck CT is normal he is well-appearing here stable for discharge Medical Records I reviewed the patient's medical records. All radiology interpretation(s) finalized by discharge Discharge Plan Discharge Patient Disposition: Home Clinical Impression: Closed head injury, Fall Condition: Stable Prescriptions: No Action gabapentin [Neurontin] 300 mg capsule 300 mg PO BID (DME) FreeStyle Stacey 3 [place] Misc See Rx Instructions .Route Qty: 1 0RF Rx Instructions: As directed (DME) FreeStyle Stacey 3 Sensor Device See Rx Instructions .Route Qty: 2 3RF Rx Instructions: As directed omeprazole 40 mg capsule,delayed release(DR/EC) 40 mg PO DAILY Qty: 30 0RF venlafaxine 75 mg capsule,extended release 24hr 225 mg PO QAM Qty: 90 1RF Rx Instructions: Take three capsules by mouth every morning olanzapine 5 mg tablet,disintegrating 5 mg PO BID PRN (Reason: agitation/anxiety) Qty: 60 1RF Rx Instructions: Take one tablet up to twice daily, if needed for agitation/anxiety aripiprazole 30 mg tablet 15 mg PO BID 30 Days Qty: 30 1RF divalproex 500 mg tablet extended release 24 hr 2,000 mg PO BEDTIME 30 Days Qty: 120 1RF diazepam 5 mg tablet 5 mg PO TID Qty: 90 1RF Rx Instructions: Take one tablet by mouth morning, afternoon, and evening, at least 4 hours apart mupirocin 2 % ointment 1 applic topical DAILY 14 Days Qty: 22 0RF metoprolol succinate 25 mg tablet extended release 24 hr 25 mg PO DAILY Qty: 90 0RF glucagon HCl [Glucagon (HCl) Emergency Kit] 1 mg recon soln 1 mg SUBCUT Q20M PRN (Reason: hypoglycemia) Qty: 1 1RF Rx Instructions: until target blood sugar attained insulin lispro [Humalog KwikPen Insulin] 100 unit/mL insulin pen 5 unit SUBCUT TID Qty: 15 1RF Rx Instructions: 5units every 4 hours as needed for blood sugars above 400 Eliquis 5 mg tablet 5 mg PO BID Qty: 180 3RF metformin 1,000 mg tablet See Rx Instructions .ROUTE .COMPLEX Qty: 90 0RF Dose Instruction: TAKE 1 TABLET BY MOUTH EVERY DAY Rx Instructions: TAKE 1 TABLET BY MOUTH EVERY DAY ondansetron 4 mg tablet,disintegrating 4 mg PO Q8H PRN (Reason: nausea and vomiting) Qty: 20 0RF Mounjaro 10 mg/0.5 mL pen injector See Rx Instructions .ROUTE .COMPLEX Qty: 2 1RF Dose Instruction: inject 10mg (0.5ml) SUBCUTANEOUSLY EVERY 7 DAYS Rx Instructions: inject 10mg (0.5ml) SUBCUTANEOUSLY EVERY 7 DAYS pioglitazone 45 mg tablet See Rx Instructions .ROUTE .COMPLEX Qty: 30 0RF Dose Instruction: TAKE 1 TABLET BY MOUTH EVERY DAY Rx Instructions: TAKE 1 TABLET BY MOUTH EVERY DAY aspirin 81 mg tablet,delayed release (DR/EC) 81 mg PO DAILY acetaminophen [Pain Reliever (acetaminophen)] 500 mg tablet 1,000 mg PO Q6H PRN (Reason: Pain) cetirizine 10 mg Capsule 10 mg PO BEDTIME PRN (Reason: Allergy Symptoms) Jardiance 25 mg tablet 25 mg PO DAILY Metamucil Sugar-Free (aspart) 3.4 gram/5.8 gram powder 3 g PO BID Qty: 425 0RF bismuth subsalicylate [Stomach Relief] 262 mg/15 mL suspension 262 mg PO Q4H PRN (Reason: Indigestion) irbesartan 150 mg tablet 150 mg PO DAILY atorvastatin 80 mg tablet 80 mg PO BEDTIME promethazine 25 mg tablet 25 mg PO Q6H PRN (Reason: Nausea And Vomiting) glucose 4 gram Tablet,Chewable 16 g PO PRN PRN (Reason: LOW BLOOD SUGAR) Rx Instructions: for bs lower than 60 ibuprofen 600 mg tablet 600 mg PO TID PRN (Reason: Pain) Discharge Orders: Discharge ED (Routine); Ordered 07/15/24 Ordered By: Wale Vyas Referrals: Bautista Ruiz MD [Primary Care Provider] - Discharge Diet: Advance as tolerated Discharge Activity: Resume usual activity Patient Instructions: Head Injury (ED) Coding Level of Care Code ED Pharmaceutical Plant Operator for Dasha Nix
[2024-07-15 21:56] VITALS: BP 162/103; PULSE 112; RESP 18; O2SAT 92
[2024-07-15 22:04] VITALS: BP 154/106; PULSE 82; RESP 16; O2SAT 92
== END 2024-07-15 22:05 | disposition home or self-care (01) ==
PROVIDERS: Emergency Provider Emergency Medicine; PCP Family Medicine
DX: S00.83XA Contusion of other part of head, initial encounter (principal); Z79.01 Long term (current) use of anticoagulants; Z79.4 Long term (current) use of insulin; Z79.85 Long-term (current) use of injectable non-insulin antidiabetic drugs; Z79.84 Long term (current) use of oral hypoglycemic drugs; Z79.82 Long term (current) use of aspirin; E11.42 Type 2 diabetes mellitus with diabetic polyneuropathy; E78.5 Hyperlipidemia, unspecified; I10 Essential (primary) hypertension; W19.XXXA Unspecified fall, initial encounter
CPT/HCPCS: 70450; 72125; 99284

== ENCOUNTER 2024-07-25 19:28 | Emergency (ER) | payer MEDICARE, MEDICAID, SELFPAY ==
[2024-07-25 19:29] VITALS: BP 133/86; PULSE 108; RESP 16; TEMP 36.8; O2SAT 94; BMI 29.0
--- NOTE | 2024-07-25 19:33 | ED.C_ITS ---
HPI - Psych General: Chief Complaint: Anxiety Stated Complaint: ANXIETY Time Seen by Provider: 07/25/24 19:29 Source: patient and EMS Mode of arrival: EMS Limitations: no limitations History of Present Illness: 44-year-old male is very well-known to [facility] he states that he got upset today and his caregiver because he supposed to have an emotional support pet may have not gotten appointment yet. He states he became angry and made some statements about hurting himself. He states that he is just upset he denies being suicidal or homicidal denies any worse improving factors. He is calm and cooperative here Associated symptoms: Reports depression Related Data Home Medications Medication Instructions Recorded Confirmed gabapentin 300 mg capsule 300 mg PO BID 10/11/22 07/03/24 (Neurontin) bismuth subsalicylate 262 mg/15 mL 262 mg PO Q4H PRN Indigestion 03/16/23 07/03/24 oral suspension (Stomach Relief) irbesartan 150 mg tablet 150 mg PO DAILY 03/16/23 07/03/24 acetaminophen 500 mg tablet (Pain 1,000 mg PO Q6H PRN Pain 10/24/23 07/03/24 Reliever (acetaminophen)) aspirin 81 mg tablet,delayed 81 mg PO DAILY 10/24/23 07/03/24 release cetirizine 10 mg capsule 10 mg PO BEDTIME PRN Allergy 10/24/23 07/03/24 Symptoms empagliflozin 25 mg tablet 25 mg PO DAILY 10/24/23 07/03/24 (Jardiance) atorvastatin 80 mg tablet 80 mg PO BEDTIME 12/31/23 07/03/24 glucose 4 gram chewable tablet 16 g PO PRN PRN LOW BLOOD SUGAR 12/31/23 07/03/24 ibuprofen 600 mg tablet 600 mg PO TID PRN Pain 12/31/23 07/03/24 promethazine 25 mg tablet 25 mg PO Q6H PRN Nausea And 12/31/23 07/03/24 Vomiting Previous Rx's Medication Instructions Recorded metoprolol succinate 25 mg 25 mg PO DAILY #90 tabs 11/01/23 tablet,extended release 24 hr glucagon HCl 1 mg solution for 1 mg SUBCUT Q20M PRN hypoglycemia 12/17/23 injection (Glucagon (HCl) #1 ea Emergency Kit) insulin lispro 100 unit/mL 5 unit (0.05 mL) SUBCUT TID #15 mL 01/02/24 subcutaneous pen (Humalog KwikPen (U-100) Insulin) apixaban 5 mg tablet (Eliquis) 5 mg PO BID #180 tabs 01/28/24 omeprazole 40 mg capsule,delayed 40 mg PO DAILY #30 caps 04/19/24 release blood-glucose meter,continuous #1 ea 05/14/24 (FreeStyle Stacey 3 [place]) blood-glucose sensor (FreeStyle #2 ea 05/14/24 Stacey 3 Sensor device) metformin 1,000 mg tablet See Rx Instructions .Route 06/23/24 .COMPLEX #90 tabs aripiprazole 30 mg tablet 15 mg (1/2 x 30 mg) PO BID 30 days 07/01/24 #30 tabs divalproex 500 mg tablet,extended 2,000 mg (4 x 500 mg) PO BEDTIME 07/01/24 release 24 hr 30 days #120 tabs olanzapine 5 mg disintegrating 5 mg PO BID PRN agitation/anxiety 07/01/24 tablet #60 tabs venlafaxine 75 mg capsule,extended 225 mg (3 x 75 mg) PO QAM #90 caps 07/01/24 release 24 hr diazepam 5 mg tablet 5 mg PO TID #90 tabs 07/02/24 ondansetron 4 mg disintegrating 4 mg PO Q8H PRN nausea and 07/02/24 tablet vomiting #20 tabs mupirocin 2 % topical ointment 1 applic topical DAILY 2 weeks #22 07/03/24 grams psyllium husk (aspartame) 3.4 3 g PO BID #425 grams 07/06/24 gram/5.8 gram oral powder (Metamucil Sugar-Free (aspartame)) tirzepatide 10 mg/0.5 mL See Rx Instructions .Route 07/09/24 subcutaneous pen injector .COMPLEX #2 mL (Mounjaro) pioglitazone 45 mg tablet See Rx Instructions .Route 07/15/24 .COMPLEX #30 tabs Allergies Allergy/AdvReac Type Severity Reaction Status Date / Time No Known Allergies Allergy Verified 07/05/24 21:57 Review of Systems Const: Denies: fever(s), chills, body aches or change in appetite ENMT: Denies: throat pain or dental pain Card: Denies: chest pain Resp: Denies: dyspnea GI: Denies: abdominal pain, nausea, vomiting or diarrhea Musc: Denies: neck pain or back pain Skin/Breast: Denies: rash Neuro: Denies: headache(s) Psych: Reports: depression and mood swings [facility] ED PFSH: Medical History Coronary-myocardial bridge Peripheral neuropathy Type 2 diabetes mellitus Hyperlipidemia Hypertension Pulmonary embolism Other reactions to severe stress Bipolar 1 disorder Most recent episode depressed Fracture of [facility] Surgical History History of appendectomy Social History Smoking and tobacco/nicotine status: never used tobacco/nicotine Alcohol intake: current Alcohol intake frequency: few times a month Substance/Drug Use: never Marital status: Single Physical Exam Const: COMMON NORMALS: no acute distress, patient oriented x3 and healthy appearing HENMT: COMMON NORMALS: normocephalic and atraumatic HEAD & SCALP: normocephalic and atraumatic Neck/C-Spine: COMMON NORMALS: full ROM and supple Chest: COMMONS NORMALS: normal inspection of the chest Resp: COMMON NORMALS: normal respiratory effort Cardio: COMMON NORMALS: regular rate, regular rhythm and No murmurs present (Cardio) RATE: regular rate RHYTHM: regular rhythm Extremity: COMMON NORMALS: normal to inspection and full ROM Neuro: COMMON NORMALS: patient oriented x3, moves all extremities and no focal motor deficits Psych: COMMON NORMALS: mental status grossly normal, Normal thought process present and cooperative THOUGHT PROCESS: Normal thought process present Skin: COMMON NORMALS: no rashes or lesions noted and no wounds GENERAL SKIN EXAM: no rashes or lesions noted Course Vital Signs: Vital signs: Vital Signs Temperature 98.2 F 07/25/24 19:29 Pulse Rate 106 H 07/25/24 20:15 Respiratory Rate 16 07/25/24 19:29 Blood Pressure 130/86 07/25/24 20:15 Pulse Oximetry 95 07/25/24 20:15 MDM - Psych Medical Decision Making Patient presents with anxiety he is calm down here is not SI or HI he stable for discharge back to [facility] Medical Records I reviewed the patient's medical records. No radiology studies performed this visit Discharge Plan Discharge Patient Disposition: Home Clinical Impression: Acute anxiety Prescriptions: No Action gabapentin [Neurontin] 300 mg capsule 300 mg PO BID (DME) FreeStyle Stacey 3 [place] Misc See Rx Instructions .Route Qty: 1 0RF Rx Instructions: As directed (DME) FreeStyle Stacey 3 Sensor Device See Rx Instructions .Route Qty: 2 3RF Rx Instructions: As directed omeprazole 40 mg capsule,delayed release(DR/EC) 40 mg PO DAILY Qty: 30 0RF venlafaxine 75 mg capsule,extended release 24hr 225 mg PO QAM Qty: 90 1RF Rx Instructions: Take three capsules by mouth every morning olanzapine 5 mg tablet,disintegrating 5 mg PO BID PRN (Reason: agitation/anxiety) Qty: 60 1RF Rx Instructions: Take one tablet up to twice daily, if needed for agitation/anxiety aripiprazole 30 mg tablet 15 mg PO BID 30 Days Qty: 30 1RF divalproex 500 mg tablet extended release 24 hr 2,000 mg PO BEDTIME 30 Days Qty: 120 1RF diazepam 5 mg tablet 5 mg PO TID Qty: 90 1RF Rx Instructions: Take one tablet by mouth morning, afternoon, and evening, at least 4 hours apart mupirocin 2 % ointment 1 applic topical DAILY 14 Days Qty: 22 0RF metoprolol succinate 25 mg tablet extended release 24 hr 25 mg PO DAILY Qty: 90 0RF glucagon HCl [Glucagon (HCl) Emergency Kit] 1 mg recon soln 1 mg SUBCUT Q20M PRN (Reason: hypoglycemia) Qty: 1 1RF Rx Instructions: until target blood sugar attained insulin lispro [Humalog KwikPen Insulin] 100 unit/mL insulin pen 5 unit SUBCUT TID Qty: 15 1RF Rx Instructions: 5units every 4 hours as needed for blood sugars above 400 Eliquis 5 mg tablet 5 mg PO BID Qty: 180 3RF metformin 1,000 mg tablet See Rx Instructions .ROUTE .COMPLEX Qty: 90 0RF Dose Instruction: TAKE 1 TABLET BY MOUTH EVERY DAY Rx Instructions: TAKE 1 TABLET BY MOUTH EVERY DAY ondansetron 4 mg tablet,disintegrating 4 mg PO Q8H PRN (Reason: nausea and vomiting) Qty: 20 0RF Mounjaro 10 mg/0.5 mL pen injector See Rx Instructions .ROUTE .COMPLEX Qty: 2 1RF Dose Instruction: inject 10mg (0.5ml) SUBCUTANEOUSLY EVERY 7 DAYS Rx Instructions: inject 10mg (0.5ml) SUBCUTANEOUSLY EVERY 7 DAYS pioglitazone 45 mg tablet See Rx Instructions .ROUTE .COMPLEX Qty: 30 0RF Dose Instruction: TAKE 1 TABLET BY MOUTH EVERY DAY Rx Instructions: TAKE 1 TABLET BY MOUTH EVERY DAY aspirin 81 mg tablet,delayed release (DR/EC) 81 mg PO DAILY acetaminophen [Pain Reliever (acetaminophen)] 500 mg tablet 1,000 mg PO Q6H PRN (Reason: Pain) cetirizine 10 mg Capsule 10 mg PO BEDTIME PRN (Reason: Allergy Symptoms) Jardiance 25 mg tablet 25 mg PO DAILY Metamucil Sugar-Free (aspart) 3.4 gram/5.8 gram powder 3 g PO BID Qty: 425 0RF bismuth subsalicylate [Stomach Relief] 262 mg/15 mL suspension 262 mg PO Q4H PRN (Reason: Indigestion) irbesartan 150 mg tablet 150 mg PO DAILY atorvastatin 80 mg tablet 80 mg PO BEDTIME promethazine 25 mg tablet 25 mg PO Q6H PRN (Reason: Nausea And Vomiting) glucose 4 gram Tablet,Chewable 16 g PO PRN PRN (Reason: LOW BLOOD SUGAR) Rx Instructions: for bs lower than 60 ibuprofen 600 mg tablet 600 mg PO TID PRN (Reason: Pain) Discharge Orders: Discharge ED (Routine); Ordered 07/25/24 Ordered By: Wale Vyas Referrals: Bautista Ruiz MD [Primary Care Provider] - 4-7 days Discharge Diet: Advance as tolerated Discharge Activity: Resume usual activity Patient Instructions: Anxiety (ED) Coding Level of Care Code ED 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
[2024-07-25] MEDS: LORazepam 1 mg Tablet PO (20:05)
[2024-07-25 20:15] VITALS: BP 130/86; PULSE 106; O2SAT 95
== END 2024-07-25 20:01 | disposition home or self-care (01) ==
PROVIDERS: Emergency Provider Emergency Medicine; PCP Family Medicine
DX: F41.9 Anxiety disorder, unspecified (principal); Z79.01 Long term (current) use of anticoagulants; Z79.4 Long term (current) use of insulin; Z79.84 Long term (current) use of oral hypoglycemic drugs; Z79.85 Long-term (current) use of injectable non-insulin antidiabetic drugs; Z79.82 Long term (current) use of aspirin; E11.42 Type 2 diabetes mellitus with diabetic polyneuropathy; E78.5 Hyperlipidemia, unspecified; I10 Essential (primary) hypertension
CPT/HCPCS: 99283

== ENCOUNTER 2024-08-13 20:01 | Emergency (ER) | payer MEDICARE, MEDICAID, SELFPAY ==
[2024-08-13 20:03] VITALS: BP 124/88; PULSE 108; RESP 18; TEMP 36.4; O2SAT 99
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
[2024-08-13 21:12] VITALS: BP 131/87; PULSE 106; RESP 18; O2SAT 97
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
[2024-08-13 21:32] VITALS: BP 139/82; PULSE 104; O2SAT 94
== END 2024-08-13 21:33 | disposition home or self-care (01) ==
PROVIDERS: Emergency Provider Physician Assistant; PCP Family Medicine
DX: S70.11XA Contusion of right thigh, initial encounter (principal); S20.219A Contusion of unspecified front wall of thorax, initial encounter; S80.11XA Contusion of right lower leg, initial encounter; Z79.01 Long term (current) use of anticoagulants; Z79.84 Long term (current) use of oral hypoglycemic drugs; Z79.4 Long term (current) use of insulin; Z79.85 Long-term (current) use of injectable non-insulin antidiabetic drugs; Z79.82 Long term (current) use of aspirin; E11.9 Type 2 diabetes mellitus without complications; E78.5 Hyperlipidemia, unspecified; I10 Essential (primary) hypertension; V89.2XXA Person injured in unspecified motor-vehicle accident, traffic, initial encounter
CPT/HCPCS: 71045; 99283

== ENCOUNTER 2024-08-14 21:29 | Emergency (ER) | payer MEDICARE, MEDICAID, SELFPAY ==
[2024-08-14 21:36] VITALS: BP 132/78; PULSE 104; RESP 16; TEMP 36.6; O2SAT 95
== END 2024-08-14 22:48 | disposition left against medical advice (07) ==
LOC: ER 21:37
PROVIDERS: Emergency Provider Family Medicine; PCP Family Medicine
DX: Z53.21 Procedure and treatment not carried out due to patient leaving prior to being seen by health care provider (principal)

== ENCOUNTER 2024-08-16 21:04 | Emergency (ER) | payer MEDICARE, MEDICAID, SELFPAY ==
[2024-08-16 21:52] VITALS: BP 115/75; PULSE 104; RESP 17; TEMP 36.5; O2SAT 100; BMI 31.4
[2024-08-17 02:38] VITALS: BP 135/86; RESP 16; O2SAT 98
--- NOTE | 2024-08-17 04:35 | W.ED.WOUNDLC ---
HPI - Wound/Laceration General: Chief Complaint: Wound/Laceration Stated Complaint: right eyebrow lac Time Seen by Provider: 08/17/24 03:42 History of Present Illness: 44-year-old male patient who tripped at home, striking his right eyebrow on concrete. He was not knocked unconscious. No vomiting. No significant headache. He sustained a small laceration to his right eyebrow. Related Data Home Medications Medication Instructions Recorded Confirmed gabapentin 300 mg capsule 300 mg PO BID 10/11/22 08/13/24 (Neurontin) bismuth subsalicylate 262 mg/15 mL 262 mg PO Q4H PRN Indigestion 03/16/23 08/13/24 oral suspension (Stomach Relief) irbesartan 150 mg tablet 150 mg PO DAILY 03/16/23 08/13/24 acetaminophen 500 mg tablet (Pain 1,000 mg PO Q6H PRN Pain 10/24/23 08/13/24 Reliever (acetaminophen)) aspirin 81 mg tablet,delayed 81 mg PO DAILY 10/24/23 08/13/24 release cetirizine 10 mg capsule 10 mg PO BEDTIME PRN Allergy 10/24/23 08/13/24 Symptoms empagliflozin 25 mg tablet 25 mg PO DAILY 10/24/23 08/13/24 (Jardiance) atorvastatin 80 mg tablet 80 mg PO BEDTIME 12/31/23 08/13/24 glucose 4 gram chewable tablet 16 g PO PRN PRN LOW BLOOD SUGAR 12/31/23 08/13/24 ibuprofen 600 mg tablet 600 mg PO TID PRN Pain 12/31/23 08/13/24 promethazine 25 mg tablet 25 mg PO Q6H PRN Nausea And 12/31/23 08/13/24 Vomiting albuterol sulfate 90 mcg/actuation 2 puff inhalation .q 4 hours PRN 08/05/24 08/13/24 aerosol inhaler icosapent ethyl 1 gram capsule 2 g PO BID 08/05/24 08/13/24 (Vascepa) loperamide 2 mg capsule 2 mg PO Q6H PRN 08/05/24 08/13/24 (Anti-Diarrheal (loperamide)) vitamins A,C,S-yuyz-icpwlh 4,296 1 cap PO BID 08/05/24 08/13/24 mcg-226 mg-90 mg capsule (PreserVision AREDS) Previous Rx's Medication Instructions Recorded metoprolol succinate 25 mg 25 mg PO DAILY #90 tabs 11/01/23 tablet,extended release 24 hr glucagon HCl 1 mg solution for 1 mg SUBCUT Q20M PRN hypoglycemia 12/17/23 injection (Glucagon (HCl) #1 ea Emergency Kit) insulin lispro 100 unit/mL 5 unit (0.05 mL) SUBCUT TID #15 mL 01/02/24 subcutaneous pen (Humalog KwikPen (U-100) Insulin) apixaban 5 mg tablet (Eliquis) 5 mg PO BID #180 tabs 01/28/24 omeprazole 40 mg capsule,delayed 40 mg PO DAILY #30 caps 04/19/24 release blood-glucose meter,continuous #1 ea 05/14/24 (FreeStyle Stacey 3 [place]) blood-glucose sensor (FreeStyle #2 ea 05/14/24 Stacey 3 Sensor device) metformin 1,000 mg tablet See Rx Instructions .Route 06/23/24 .COMPLEX #90 tabs diazepam 5 mg tablet 5 mg PO TID #90 tabs 07/02/24 ondansetron 4 mg disintegrating 4 mg PO Q8H PRN nausea and 07/02/24 tablet vomiting #20 tabs tirzepatide 10 mg/0.5 mL See Rx Instructions .Route 07/09/24 subcutaneous pen injector .COMPLEX #2 mL (Mounjaro) pioglitazone 45 mg tablet See Rx Instructions .Route 07/15/24 .COMPLEX #30 tabs aripiprazole 30 mg tablet 15 mg (1/2 x 30 mg) PO BID 30 days 08/05/24 #30 tabs divalproex 500 mg tablet,extended 2,000 mg (4 x 500 mg) PO BEDTIME 08/05/24 release 24 hr 30 days #120 tabs olanzapine 5 mg disintegrating 5 mg PO BID PRN agitation/anxiety 08/05/24 tablet #60 tabs venlafaxine 150 mg 300 mg (2 x 150 mg) PO QAM 30 days 08/05/24 capsule,extended release 24 hr #60 caps blood-glucose meter,continuous #1 ea 08/13/24 (Dexcom G7 Chemical Engineering Teacher) blood-glucose sensor (Dexcom G7 #3 ea 08/13/24 Sensor device) Allergies Allergy/AdvReac Type Severity Reaction Status Date / Time No Known Allergies Allergy Verified 08/16/24 21:55 PFSH ED PFSH: Medical History Coronary-myocardial bridge Peripheral neuropathy Type 2 diabetes mellitus Hyperlipidemia Hypertension Pulmonary embolism Other reactions to severe stress Bipolar 1 disorder Most recent episode depressed Fracture of triquetrum Psychiatric care Surgical History History of appendectomy Social History Smoking and tobacco/nicotine status: never used tobacco/nicotine Alcohol intake: current Alcohol intake frequency: few times a month Substance/Drug Use: never Marital status: Single Physical Exam Const: COMMON NORMALS: no acute distress GENERAL APPEARANCE: cooperative ORIENTATION/CONSCIOUSNESS: Yes awake HENMT: COMMON NORMALS: normocephalic and Normal external nose present HEAD & SCALP: normocephalic FACE & SINUS: edema (right periorbital) and Facial tenderness on exam of face and sinuses (right lateral eyebrow) NOSE: Normal external nose present and Normal nares present Eye: COMMON NORMALS: Equal, round and reactive pupils present and EOMs intact bilaterally PUPIL: Yes Equal, round and reactive pupils present Neuro: MALINDA COMA SCALE: document GCS findings Malinda coma scale eye opening: Spontaneous Malinda coma scale verbal response: Orientated [place] coma scale motor response: Obey commands [place] coma scale total score: 15 OTHER: 1cm laceration to right lateral eyebrow Procedures Laceration Laceration 1: Site: face Side (If applicable): right Size (cm): 1 Description: irregular Depth: simple, single layer Pre-repair: wound explored, irrigated extensively and deep structures intact Skin layer closed with: other (prolene) Size (cm): 5-0 Number of sutures: 1 Technique: simple, interrupted Course Vital Signs: Vital signs: Vital Signs Temperature 97.7 F 08/16/24 21:52 Pulse Rate 83 08/17/24 04:45 Respiratory Rate 16 08/17/24 04:45 Blood Pressure 141/87 08/17/24 04:45 Pulse Oximetry 93 08/17/24 04:45 Oxygen Delivery Me thod Room Air 08/17/24 02:38 MDM - Wound/Laceration Medical Decision Making No sign of closed head injury. Laceration repaired with one 5-0 Prolene suture. He tolerated well. Stable for discharge. No other injury. No radiology studies performed this visit Discharge Plan Discharge Patient Disposition: Home Clinical Impression: Eyebrow laceration Condition: Stable Prescriptions: No Action gabapentin [Neurontin] 300 mg capsule 300 mg PO BID (DME) FreeStyle Stacey 3 [place] Misc See Rx Instructions .Route Qty: 1 0RF Rx Instructions: As directed (DME) FreeStyle Stacey 3 Sensor Device See Rx Instructions .Route Qty: 2 3RF Rx Instructions: As directed omeprazole 40 mg capsule,delayed release(DR/EC) 40 mg PO DAILY Qty: 30 0RF diazepam 5 mg tablet 5 mg PO TID Qty: 90 1RF Rx Instructions: Take one tablet by mouth morning, afternoon, and evening, at least 4 hours apart loperamide [Anti-Diarrheal (loperamide)] 2 mg capsule 2 mg PO Q6H PRN albuterol sulfate 90 mcg/actuation HFA aerosol inhaler 2 puff inhalation .q 4 hours PRN icosapent ethyl [Vascepa] 1 gram capsule 2 g PO BID PreserVision AREDS 4,296 mcg-226 mg-90 mg capsule 1 cap PO BID aripiprazole 30 mg tablet 15 mg PO BID 30 Days Qty: 30 3RF Rx Instructions: Take one-half tablet twice a day, morning and night time divalproex 500 mg tablet extended release 24 hr 2,000 mg PO BEDTIME 30 Days Qty: 120 3RF Rx Instructions: Take 4 tablets daily at bedtime olanzapine 5 mg tablet,disintegrating 5 mg PO BID PRN (Reason: agitation/anxiety) Qty: 60 3RF Rx Instructions: Take one tablet up to twice daily, if needed for agitation/anxiety venlafaxine 150 mg capsule,extended release 24hr 300 mg PO QAM 30 Days Qty: 60 3RF Rx Instructions: Take two capsules by mouth every morning; stop other doses of this medication (DME) Dexcom G7 Chemical Engineering Teacher Misc See Rx Instructions .Route Qty: 1 0RF Rx Instructions: As directed (DME) Dexcom G7 Sensor Device See Rx Instructions .Route Qty: 3 3RF Rx Instructions: As directed metoprolol succinate 25 mg tablet extended release 24 hr 25 mg PO DAILY Qty: 90 0RF glucagon HCl [Glucagon (HCl) Emergency Kit] 1 mg recon soln 1 mg SUBCUT Q20M PRN (Reason: hypoglycemia) Qty: 1 1RF Rx Instructions: until target blood sugar attained insulin lispro [Humalog KwikPen Insulin] 100 unit/mL insulin pen 5 unit SUBCUT TID Qty: 15 1RF Rx Instructions: 5units every 4 hours as needed for blood sugars above 400 Eliquis 5 mg tablet 5 mg PO BID Qty: 180 3RF metformin 1,000 mg tablet See Rx Instructions .ROUTE .COMPLEX Qty: 90 0RF Dose Instruction: TAKE 1 TABLET BY MOUTH EVERY DAY Rx Instructions: TAKE 1 TABLET BY MOUTH EVERY DAY ondansetron 4 mg tablet,disintegrating 4 mg PO Q8H PRN (Reason: nausea and vomiting) Qty: 20 0RF Mounjaro 10 mg/0.5 mL pen injector See Rx Instructions .ROUTE .COMPLEX Qty: 2 1RF Dose Instruction: inject 10mg (0.5ml) SUBCUTANEOUSLY EVERY 7 DAYS Rx Instructions: inject 10mg (0.5ml) SUBCUTANEOUSLY EVERY 7 DAYS pioglitazone 45 mg tablet See Rx Instructions .ROUTE .COMPLEX Qty: 30 0RF Dose Instruction: TAKE 1 TABLET BY MOUTH EVERY DAY Rx Instructions: TAKE 1 TABLET BY MOUTH EVERY DAY aspirin 81 mg tablet,delayed release (DR/EC) 81 mg PO DAILY acetaminophen [Pain Reliever (acetaminophen)] 500 mg tablet 1,000 mg PO Q6H PRN (Reason: Pain) cetirizine 10 mg Capsule 10 mg PO BEDTIME PRN (Reason: Allergy Symptoms) Jardiance 25 mg tablet 25 mg PO DAILY bismuth subsalicylate [Stomach Relief] 262 mg/15 mL suspension 262 mg PO Q4H PRN (Reason: Indigestion) irbesartan 150 mg tablet 150 mg PO DAILY atorvastatin 80 mg tablet 80 mg PO BEDTIME promethazine 25 mg tablet 25 mg PO Q6H PRN (Reason: Nausea And Vomiting) glucose 4 gram Tablet,Chewable 16 g PO PRN PRN (Reason: LOW BLOOD SUGAR) Rx Instructions: for bs lower than 60 ibuprofen 600 mg tablet 600 mg PO TID PRN (Reason: Pain) Discharge Orders: Discharge ED (Routine); Ordered 08/17/24 Ordered By: Abdiel Garcia Referrals: Bautista Ruiz MD [Primary Care Provider] - Patient Instructions: Facial Laceration (ED), Opioid Safety, Pain Management Activity Restrictions/Additional Instructions: You may wash with soap and running water. Do not soak. Return for bleeding, swelling, redness, worsening headache., Change in your vision, pain with eye movement, any other concerning symptoms. Sutures should come out in 5-8 days. See your doctor for this. Coding Level of Care Code ED Distilling Department Supervisor for Dasha Nix
[2024-08-17 04:45] VITALS: BP 141/87; PULSE 83; RESP 16; O2SAT 93
== END 2024-08-17 04:47 | disposition home or self-care (01) ==
PROVIDERS: Emergency Provider Emergency Medicine; PCP Family Medicine
DX: S01.111A Laceration without foreign body of right eyelid and periocular area, initial encounter (principal); Z79.01 Long term (current) use of anticoagulants; Z79.4 Long term (current) use of insulin; Z79.84 Long term (current) use of oral hypoglycemic drugs; Z79.85 Long-term (current) use of injectable non-insulin antidiabetic drugs; Z79.82 Long term (current) use of aspirin; E11.42 Type 2 diabetes mellitus with diabetic polyneuropathy; E78.5 Hyperlipidemia, unspecified; I10 Essential (primary) hypertension; W01.198A Fall on same level from slipping, tripping and stumbling with subsequent striking against other object, initial encounter
CPT/HCPCS: 12011; 99282

== ENCOUNTER 2024-08-25 23:10 | Emergency (ER) | payer MEDICARE, MEDICAID, SELFPAY ==
[2024-08-25 23:11] VITALS: BP 132/82; PULSE 108; RESP 18; TEMP 36.4; O2SAT 98; BMI 33.0
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
[2024-08-26] MEDS: HYDROcodone-acetaminophen 5-325 mg Tablet 1 TAB PO (02:57)
[2024-08-26 03:04] VITALS: BP 113/66; PULSE 87; RESP 18; O2SAT 94
== END 2024-08-26 03:05 | disposition home or self-care (01) ==
PROVIDERS: Emergency Provider Physician Assistant; PCP Family Medicine
DX: R07.89 Other chest pain (principal)
CPT/HCPCS: 71045; 99283

== ENCOUNTER 2024-09-03 22:45 | Emergency (ER) | payer MEDICARE, MEDICAID, SELFPAY ==
[2024-09-03 22:46] VITALS: BP 137/85; PULSE 102; RESP 16; TEMP 36.8; O2SAT 95; BMI 32.5
--- NOTE | 2024-09-03 22:47 | ECG_ITS ---
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 Measurements Intervals [place] Rate: 103 P: 46 NE: 224 QRS: -24 QRSD: 108 T: 34 QT: 325 QTc: 426 Interpretive Statements SINUS TACHYCARDIA WITH FIRST DEGREE AV BLOCK ANTEROSEPTAL MYOCARDIAL INFARCTION , OF INDETERMINATE AGE Compared to ECG 11/12/2023 20:31:39 First degree AV block now present Myocardial infarct finding still present Electronically Signed On 09-04-2024 12:10:51 CDT by Caleb Banegas M.D. [email or web address]
--- NOTE | 2024-09-03 22:50 | W.ED.CHESTPA ---
HPI - Chest Pain General: Chief Complaint: Chest Pain Stated Complaint: Chest Pain Time Seen by Provider: 09/03/24 22:47 History of Present Illness: 44-year-old male patient comes in today for persistent chest wall pain after injury from approximately 4 weeks ago. Patient denies any shortness of breath. Patient reports tenderness on palpation of anterior chest wall. Patient reports no nausea or vomiting. Patient reports no fever. Related Data Home Medications Medication Instructions Recorded Confirmed gabapentin 300 mg capsule 300 mg PO BID 10/11/22 08/13/24 (Neurontin) bismuth subsalicylate 262 mg/15 mL 262 mg PO Q4H PRN Indigestion 03/16/23 08/13/24 oral suspension (Stomach Relief) irbesartan 150 mg tablet 150 mg PO DAILY 03/16/23 08/13/24 acetaminophen 500 mg tablet (Pain 1,000 mg PO Q6H PRN Pain 10/24/23 08/13/24 Reliever (acetaminophen)) aspirin 81 mg tablet,delayed 81 mg PO DAILY 10/24/23 08/13/24 release cetirizine 10 mg capsule 10 mg PO BEDTIME PRN Allergy 10/24/23 08/13/24 Symptoms empagliflozin 25 mg tablet 25 mg PO DAILY 10/24/23 08/13/24 (Jardiance) atorvastatin 80 mg tablet 80 mg PO BEDTIME 12/31/23 08/13/24 glucose 4 gram chewable tablet 16 g PO PRN PRN LOW BLOOD SUGAR 12/31/23 08/13/24 ibuprofen 600 mg tablet 600 mg PO TID PRN Pain 12/31/23 08/13/24 promethazine 25 mg tablet 25 mg PO Q6H PRN Nausea And 12/31/23 08/13/24 Vomiting albuterol sulfate 90 mcg/actuation 2 puff inhalation .q 4 hours PRN 08/05/24 08/13/24 aerosol inhaler icosapent ethyl 1 gram capsule 2 g PO BID 08/05/24 08/13/24 (Vascepa) loperamide 2 mg capsule 2 mg PO Q6H PRN 08/05/24 08/13/24 (Anti-Diarrheal (loperamide)) vitamins A,C,C-bwhq-vaivkd 4,296 1 cap PO BID 08/05/24 08/13/24 mcg-226 mg-90 mg capsule (PreserVision AREDS) Previous Rx's Medication Instructions Recorded metoprolol succinate 25 mg 25 mg PO DAILY #90 tabs 11/01/23 tablet,extended release 24 hr glucagon HCl 1 mg solution for 1 mg SUBCUT Q20M PRN hypoglycemia 12/17/23 injection (Glucagon (HCl) #1 ea Emergency Kit) insulin lispro 100 unit/mL 5 unit (0.05 mL) SUBCUT TID #15 mL 01/02/24 subcutaneous pen (Humalog KwikPen (U-100) Insulin) apixaban 5 mg tablet (Eliquis) 5 mg PO BID #180 tabs 01/28/24 omeprazole 40 mg capsule,delayed 40 mg PO DAILY #30 caps 04/19/24 release blood-glucose meter,continuous #1 ea 05/14/24 (FreeStyle Stacey 3 [place]) blood-glucose sensor (FreeStyle #2 ea 05/14/24 Stacey 3 Sensor device) metformin 1,000 mg tablet See Rx Instructions .Route 06/23/24 .COMPLEX #90 tabs diazepam 5 mg tablet 5 mg PO TID #90 tabs 07/02/24 ondansetron 4 mg disintegrating 4 mg PO Q8H PRN nausea and 07/02/24 tablet vomiting #20 tabs aripiprazole 30 mg tablet 15 mg (1/2 x 30 mg) PO BID 30 days 08/05/24 #30 tabs divalproex 500 mg tablet,extended 2,000 mg (4 x 500 mg) PO BEDTIME 08/05/24 release 24 hr 30 days #120 tabs olanzapine 5 mg disintegrating 5 mg PO BID PRN agitation/anxiety 08/05/24 tablet #60 tabs venlafaxine 150 mg 300 mg (2 x 150 mg) PO QAM 30 days 08/05/24 capsule,extended release 24 hr #60 caps blood-glucose meter,continuous #1 ea 08/13/24 (Dexcom G7 Veneer Repairer Machine) blood-glucose sensor (Dexcom G7 #3 ea 08/13/24 Sensor device) pioglitazone 45 mg tablet See Rx Instructions .Route 08/27/24 .COMPLEX #30 tabs tirzepatide 10 mg/0.5 mL See Rx Instructions .Route 09/01/24 subcutaneous pen injector .COMPLEX #2 mL (Elizabeth) menthol 10 % topical cream 1 applic topical TID PRN muscle 10/30/24 (Biofreeze (menthol)) pain #85 grams Allergies Allergy/AdvReac Type Severity Reaction Status Date / Time No Known Allergies Allergy Verified 08/16/24 21:55 Review of Systems General: Reports: 10 or more systems reviewed and unremarkable except in HPI and below Musc: Reports: other (Chest wall pain) PFSH ED PFSH: Medical History Coronary-myocardial bridge Peripheral neuropathy Type 2 diabetes mellitus Hyperlipidemia Hypertension Pulmonary embolism Other reactions to severe stress Bipolar 1 disorder Most recent episode depressed Fracture of [facility] Surgical History History of appendectomy Social History Smoking and tobacco/nicotine status: never used tobacco/nicotine Alcohol intake: current Alcohol intake frequency: few times a month Substance/Drug Use: never Marital status: Single Physical Exam Const: COMMON NORMALS: alert HENMT: COMMON NORMALS: normocephalic HEAD & SCALP: normocephalic Neck/C-Spine: COMMON NORMALS: full ROM Chest: CHEST: Yes tenderness (Left anterior chest wall, sternal costal margin) Resp: COMMON NORMALS: normal respiratory effort Cardio: COMMON NORMALS: regular rate RATE: regular rate GI: COMMON NORMALS: non-tender Extremity: COMMON NORMALS: normal to inspection Neuro: SENSORIUM/ORIENTATION: Yes alert Skin: COMMON NORMALS: turgor normal GENERAL SKIN EXAM: turgor normal Course Vital Signs: Vital signs: Vital Signs Temperature 98.2 F 09/03/24 22:46 Pulse Rate 102 H 09/03/24 22:46 Respiratory Rate 16 09/03/24 22:46 Blood Pressure 137/85 09/03/24 22:46 Pulse Oximetry 95 09/03/24 22:46 Oxygen Delivery Me thod Room Air 09/03/24 22:46 MDM - Chest Pain Medical Decision Making Patient comes in tonight for complaints of chest wall pain. Patient has tenderness of the left sternal costal margin of the anterior chest. Respirations are even. Lungs are clear to auscultation. Skin is warm and dry. Vital signs are normal. Differential diagnosis includes contusion of the chest wall, costochondritis, anxiety about health. Pain was reproducible with palpation and movement. EKG showed no acute abnormalities. Chest x-ray noted no acute abnormalities. Believe patient most likely has some costochondritis secondary to his acute injury. Recommended menthol rub to help with the pain. Recommended continuing acetaminophen and icing he otherwise. Patient and caregivers were reported understanding. Lab Data Radiology Impressions Chest X-Ray 09/03/24 22:52 IMPRESSION: No acute cardiopulmonary disease. All radiology interpretation(s) finalized by discharge EKG Data EKG 1: I personally reviewed and interpreted this EKG as follows: EKG interpretation date: 09/03/24 EKG interpretation time: 22:58 Prior EKG tracings: not available for review Interpretation: EKG shows a sinus rhythm with with a regular rate at [address] elevation is noted. No ectopy is noted. Mild artifact is present. Computer generated interpretation: Sinus tachycardia with first grade AV block. Anteroseptal myocardial infarction of indeterminate age. Abnormal EKG. Unconfirmed report. Discharge Plan Discharge Patient Disposition: Home Clinical Impression: Costalchondritis Condition: Stable Prescriptions: New Biofreeze (menthol) 10 % cream 1 applic topical TID PRN (Reason: muscle pain) Qty: 85 0RF No Action gabapentin [Neurontin] 300 mg capsule 300 mg PO BID (DME) FreeStyle Stacey 3 [place] Misc See Rx Instructions .Route Qty: 1 0RF Rx Instructions: As directed (DME) FreeStyle Stacey 3 Sensor Device See Rx Instructions .Route Qty: 2 3RF Rx Instructions: As directed omeprazole 40 mg capsule,delayed release(DR/EC) 40 mg PO DAILY Qty: 30 0RF diazepam 5 mg tablet 5 mg PO TID Qty: 90 1RF Rx Instructions: Take one tablet by mouth morning, afternoon, and evening, at least 4 hours apart loperamide [Anti-Diarrheal (loperamide)] 2 mg capsule 2 mg PO Q6H PRN albuterol sulfate 90 mcg/actuation HFA aerosol inhaler 2 puff inhalation .q 4 hours PRN icosapent ethyl [Vascepa] 1 gram capsule 2 g PO BID PreserVision AREDS 4,296 mcg-226 mg-90 mg capsule 1 cap PO BID aripiprazole 30 mg tablet 15 mg PO BID 30 Days Qty: 30 3RF Rx Instructions: Take one-half tablet twice a day, morning and night time divalproex 500 mg tablet extended release 24 hr 2,000 mg PO BEDTIME 30 Days Qty: 120 3RF Rx Instructions: Take 4 tablets daily at bedtime olanzapine 5 mg tablet,disintegrating 5 mg PO BID PRN (Reason: agitation/anxiety) Qty: 60 3RF Rx Instructions: Take one tablet up to twice daily, if needed for agitation/anxiety venlafaxine 150 mg capsule,extended release 24hr 300 mg PO QAM 30 Days Qty: 60 3RF Rx Instructions: Take two capsules by mouth every morning; stop other doses of this medication (DME) Dexcom G7 Veneer Repairer Machine Misc See Rx Instructions .Route Qty: 1 0RF Rx Instructions: As directed (DME) Dexcom G7 Sensor Device See Rx Instructions .Route Qty: 3 3RF Rx Instructions: As directed metoprolol succinate 25 mg tablet extended release 24 hr 25 mg PO DAILY Qty: 90 0RF glucagon HCl [Glucagon (HCl) Emergency Kit] 1 mg recon soln 1 mg SUBCUT Q20M PRN (Reason: hypoglycemia) Qty: 1 1RF Rx Instructions: until target blood sugar attained insulin lispro [Humalog KwikPen Insulin] 100 unit/mL insulin pen 5 unit SUBCUT TID Qty: 15 1RF Rx Instructions: 5units every 4 hours as needed for blood sugars above 400 Eliquis 5 mg tablet 5 mg PO BID Qty: 180 3RF metformin 1,000 mg tablet See Rx Instructions .ROUTE .COMPLEX Qty: 90 0RF Dose Instruction: TAKE 1 TABLET BY MOUTH EVERY DAY Rx Instructions: TAKE 1 TABLET BY MOUTH EVERY DAY ondansetron 4 mg tablet,disintegrating 4 mg PO Q8H PRN (Reason: nausea and vomiting) Qty: 20 0RF pioglitazone 45 mg tablet See Rx Instructions .ROUTE .COMPLEX Qty: 30 2RF Dose Instruction: TAKE 1 TABLET BY MOUTH EVERY DAY Rx Instructions: TAKE 1 TABLET BY MOUTH EVERY DAY Mounjaro 10 mg/0.5 mL pen injector See Rx Instructions .ROUTE .COMPLEX Qty: 2 1RF Dose Instruction: inject 10mg (0.5ml) SUBCUTANEOUSLY EVERY 7 DAYS Rx Instructions: inject 10mg (0.5ml) SUBCUTANEOUSLY EVERY 7 DAYS aspirin 81 mg tablet,delayed release (DR/EC) 81 mg PO DAILY acetaminophen [Pain Reliever (acetaminophen)] 500 mg tablet 1,000 mg PO Q6H PRN (Reason: Pain) cetirizine 10 mg Capsule 10 mg PO BEDTIME PRN (Reason: Allergy Symptoms) Jardiance 25 mg tablet 25 mg PO DAILY bismuth subsalicylate [Stomach Relief] 262 mg/15 mL suspension 262 mg PO Q4H PRN (Reason: Indigestion) irbesartan 150 mg tablet 150 mg PO DAILY atorvastatin 80 mg tablet 80 mg PO BEDTIME promethazine 25 mg tablet 25 mg PO Q6H PRN (Reason: Nausea And Vomiting) glucose 4 gram Tablet,Chewable 16 g PO PRN PRN (Reason: LOW BLOOD SUGAR) Rx Instructions: for bs lower than 60 ibuprofen 600 mg tablet 600 mg PO TID PRN (Reason: Pain) Discharge Orders: Discharge ED (Routine); Ordered 09/03/24 Ordered By: Ho Wagner Referrals: Bautista Ruiz MD [Primary Care Provider] - Discharge Diet: Usual diet Discharge Activity: Increase activity as tolerated Patient Instructions: Costochondritis (ED) Activity Restrictions/Additional Instructions: Drink plenty of water and fluids. Continue with acetaminophen as needed for pain. Use menthol muscle rub to help with pain to the chest wall 3 times a day as needed. You may use ice or heat for further pain relief. Follow-up with primary care for further instructions. Return to ED for new concerns. Coding Level of Care Code ED Client Customer Manager for Dasha Nix
--- NOTE | 2024-09-03 22:52 | XRR_ITS ---
PROCEDURE INFORMATION: Exam: XR Chest Exam date and time: 09/03/2024 11:07 PM Age: 44 years old Clinical indication: Pain; Chest pressure; Additional info: Chest pain TECHNIQUE: Imaging protocol: Radiologic exam of the chest. Views: 1 view. COMPARISON: CR (CHEST, ) 08/25/2024 11:51 PM FINDINGS: Limitations: Patient rotation. Lungs: The lungs are clear. No pulmonary consolidation. Pleural spaces: No pleural effusion or pneumothorax. Heart/Mediastinum: The cardiomediastinal silhouette is within normal limits. Bones/joints: No acute osseous abnormalities are seen. XR/XR chest 1V portable [id number] IMPRESSION: No acute cardiopulmonary disease.
[2024-09-03] MEDS: ketorolac 30 mg/mL INJ IM (23:17)
[2024-09-03] MEDS: HYDROcodone-acetaminophen 5-325 mg Tablet 1 TAB PO (23:18)
[2024-09-03 23:53] VITALS: BP 131/88; PULSE 93; RESP 16; O2SAT 90
== END 2024-09-03 23:54 | disposition home or self-care (01) ==
PROVIDERS: Emergency Provider Nurse Practitioner Family; PCP Family Medicine
DX: M94.0 Chondrocostal junction syndrome [Tietze] (principal); Z79.4 Long term (current) use of insulin; Z79.01 Long term (current) use of anticoagulants; Z79.84 Long term (current) use of oral hypoglycemic drugs; Z79.82 Long term (current) use of aspirin; E11.42 Type 2 diabetes mellitus with diabetic polyneuropathy; I10 Essential (primary) hypertension
CPT/HCPCS: 71045; 93005; 96372; 99284; J1885

== ENCOUNTER 2024-09-25 00:05 | Emergency (ER) | payer MEDICARE, MEDICAID, SELFPAY ==
[2024-09-25 00:06] VITALS: BP 136/83; PULSE 107; RESP 16; TEMP 36.8; O2SAT 96; BMI 32.3
--- NOTE | 2024-09-25 00:08 | W.ED.GENADLT ---
HPI - General Adult General: Chief complaint: Anxiety Stated complaint: SI Time Seen by Provider: 09/25/24 00:06 History of Present Illness: Patient presents to the ER with anxiety. Patient said he drank a beer earlier this morning and his staff members would not give him a anxiety medicine this afternoon. Patient has no complaints at this time other than that. Patient denies suicidal homicidal ideation. Related Data Home Medications Medication Instructions Recorded Confirmed gabapentin 300 mg capsule 300 mg PO BID 10/11/22 08/13/24 (Neurontin) bismuth subsalicylate 262 mg/15 mL 262 mg PO Q4H PRN Indigestion 03/16/23 08/13/24 oral suspension (Stomach Relief) irbesartan 150 mg tablet 150 mg PO DAILY 03/16/23 08/13/24 acetaminophen 500 mg tablet (Pain 1,000 mg PO Q6H PRN Pain 10/24/23 08/13/24 Reliever (acetaminophen)) aspirin 81 mg tablet,delayed 81 mg PO DAILY 10/24/23 08/13/24 release cetirizine 10 mg capsule 10 mg PO BEDTIME PRN Allergy 10/24/23 08/13/24 Symptoms empagliflozin 25 mg tablet 25 mg PO DAILY 10/24/23 08/13/24 (Jardiance) atorvastatin 80 mg tablet 80 mg PO BEDTIME 12/31/23 08/13/24 glucose 4 gram chewable tablet 16 g PO PRN PRN LOW BLOOD SUGAR 12/31/23 08/13/24 ibuprofen 600 mg tablet 600 mg PO TID PRN Pain 12/31/23 08/13/24 promethazine 25 mg tablet 25 mg PO Q6H PRN Nausea And 12/31/23 08/13/24 Vomiting albuterol sulfate 90 mcg/actuation 2 puff inhalation .q 4 hours PRN 08/05/24 08/13/24 aerosol inhaler icosapent ethyl 1 gram capsule 2 g PO BID 08/05/24 08/13/24 (Vascepa) loperamide 2 mg capsule 2 mg PO Q6H PRN 08/05/24 08/13/24 (Anti-Diarrheal (loperamide)) vitamins A,C,O-ixtk-qgsoha 4,296 1 cap PO BID 08/05/24 08/13/24 mcg-226 mg-90 mg capsule (PreserVision AREDS) Previous Rx's Medication Instructions Recorded metoprolol succinate 25 mg 25 mg PO DAILY #90 tabs 11/01/23 tablet,extended release 24 hr glucagon HCl 1 mg solution for 1 mg SUBCUT Q20M PRN hypoglycemia 12/17/23 injection (Glucagon (HCl) #1 ea Emergency Kit) insulin lispro 100 unit/mL 5 unit (0.05 mL) SUBCUT TID #15 mL 01/02/24 subcutaneous pen (Humalog KwikPen (U-100) Insulin) apixaban 5 mg tablet (Eliquis) 5 mg PO BID #180 tabs 01/28/24 omeprazole 40 mg capsule,delayed 40 mg PO DAILY #30 caps 04/19/24 release blood-glucose meter,continuous #1 ea 05/14/24 (FreeStyle Stacey 3 [place]) blood-glucose sensor (FreeStyle #2 ea 05/14/24 Stacey 3 Sensor device) ondansetron 4 mg disintegrating 4 mg PO Q8H PRN nausea and 07/02/24 tablet vomiting #20 tabs aripiprazole 30 mg tablet 15 mg (1/2 x 30 mg) PO BID 30 days 08/05/24 #30 tabs divalproex 500 mg tablet,extended 2,000 mg (4 x 500 mg) PO BEDTIME 08/05/24 release 24 hr 30 days #120 tabs olanzapine 5 mg disintegrating 5 mg PO BID PRN agitation/anxiety 08/05/24 tablet #60 tabs venlafaxine 150 mg 300 mg (2 x 150 mg) PO QAM 30 days 08/05/24 capsule,extended release 24 hr #60 caps blood-glucose meter,continuous #1 ea 08/13/24 (Dexcom G7 Assistant Offset Press Operator) blood-glucose sensor (Dexcom G7 #3 ea 08/13/24 Sensor device) pioglitazone 45 mg tablet See Rx Instructions .Route 08/27/24 .COMPLEX #30 tabs tirzepatide 10 mg/0.5 mL See Rx Instructions .Route 09/01/24 subcutaneous pen injector .COMPLEX #2 mL (Mounjaro) menthol 10 % topical cream 1 applic topical TID PRN muscle 09/03/24 (Biofreeze (menthol)) pain #85 grams diazepam 5 mg tablet 5 mg PO TID #90 tabs 11/14/24 metformin 1,000 mg tablet See Rx Instructions .Route 09/23/24 .COMPLEX #90 tabs Allergies Allergy/AdvReac Type Severity Reaction Status Date / Time No Known Allergies Allergy Verified 08/16/24 21:55 Review of Systems General: Reports: 10 or more systems reviewed and unremarkable except in HPI and below PFSH ED PFSH: Medical History Coronary-myocardial bridge Peripheral neuropathy Type 2 diabetes mellitus Hyperlipidemia Hypertension Pulmonary embolism Other reactions to severe stress Bipolar 1 disorder Most recent episode depressed Fracture of [facility] Surgical History History of appendectomy Social History Smoking and tobacco/nicotine status: never used tobacco/nicotine Alcohol intake: current Alcohol intake frequency: few times a month Substance/Drug Use: never Marital status: Single Physical Exam Const: COMMON NORMALS: no acute distress, average body habitus, patient oriented x3, no limitations, healthy appearing, alert and well nourished HENMT: COMMON NORMALS: normocephalic, atraumatic, hearing grossly normal bilaterally, external ears normal, Normal external nose present and moist oral mucous membranes HEAD & SCALP: normocephalic and atraumatic NOSE: Normal external nose present EXTERNAL EAR: Yes external ears normal Neck/C-Spine: COMMON NORMALS: no JVD Chest: COMMONS NORMALS: normal inspection of the chest and normal palpation of entire chest wall Resp: COMMON NORMALS: normal respiratory effort, No retractions, No use of accessory muscles and clear to auscultation bilaterally AUSCULTATION: clear to auscultation bilaterally Cardio: COMMON NORMALS: no JVD, regular rate, regular rhythm, S1 normal heart sound present, S2 normal heart sound present, No gallops present (Cardio), No clicks present (Cardio), No murmurs present (Cardio) and No rub (Cardio) RATE: regular rate RHYTHM: regular rhythm HEART SOUNDS: S1 normal heart sound present and S2 normal heart sound present GI: COMMON NORMALS: Normal to inspection, nondistended, normoactive bowel sounds present, Soft to palpation, non-tender, No hepatosplenomegaly present and no masses PALPATION: Yes Soft to palpation and Yes No hepatosplenomegaly present Neuro: COMMON NORMALS: patient oriented x3 SENSORIUM/ORIENTATION: Yes alert Course Vital Signs: Vital signs: Vital Signs Temperature 98.2 F 09/25/24 00:06 Pulse Rate 107 H 09/25/24 00:06 Respiratory Rate 16 09/25/24 00:06 Blood Pressure 136/83 09/25/24 00:06 Pulse Oximetry 96 09/25/24 00:06 MDM - General Adult Medical Decision Making Patient given 5 mg Valium and he said made him feel better. Patient be discharged back to the facility. Medical Records I reviewed the patient's medical records. Lab Data I reviewed the patient's lab results. No radiology studies performed this visit Discharge Plan Discharge Patient Disposition: Home Clinical Impression: Acute anxiety Condition: Stable Prescriptions: No Action gabapentin [Neurontin] 300 mg capsule 300 mg PO BID (DME) FreeStyle Stacey 3 [place] Misc See Rx Instructions .Route Qty: 1 0RF Rx Instructions: As directed (DME) FreeStyle Stacey 3 Sensor Device See Rx Instructions .Route Qty: 2 3RF Rx Instructions: As directed omeprazole 40 mg capsule,delayed release(DR/EC) 40 mg PO DAILY Qty: 30 0RF loperamide [Anti-Diarrheal (loperamide)] 2 mg capsule 2 mg PO Q6H PRN albuterol sulfate 90 mcg/actuation HFA aerosol inhaler 2 puff inhalation .q 4 hours PRN icosapent ethyl [Vascepa] 1 gram capsule 2 g PO BID PreserVision AREDS 4,296 mcg-226 mg-90 mg capsule 1 cap PO BID aripiprazole 30 mg tablet 15 mg PO BID 30 Days Qty: 30 3RF Rx Instructions: Take one-half tablet twice a day, morning and night time divalproex 500 mg tablet extended release 24 hr 2,000 mg PO BEDTIME 30 Days Qty: 120 3RF Rx Instructions: Take 4 tablets daily at bedtime olanzapine 5 mg tablet,disintegrating 5 mg PO BID PRN (Reason: agitation/anxiety) Qty: 60 3RF Rx Instructions: Take one tablet up to twice daily, if needed for agitation/anxiety venlafaxine 150 mg capsule,extended release 24hr 300 mg PO QAM 30 Days Qty: 60 3RF Rx Instructions: Take two capsules by mouth every morning; stop other doses of this medication (DME) Dexcom G7 Assistant Offset Press Operator Misc See Rx Instructions .Route Qty: 1 0RF Rx Instructions: As directed (DME) Dexcom G7 Sensor Device See Rx Instructions .Route Qty: 3 3RF Rx Instructions: As directed metoprolol succinate 25 mg tablet extended release 24 hr 25 mg PO DAILY Qty: 90 0RF glucagon HCl [Glucagon (HCl) Emergency Kit] 1 mg recon soln 1 mg SUBCUT Q20M PRN (Reason: hypoglycemia) Qty: 1 1RF Rx Instructions: until target blood sugar attained insulin lispro [Humalog KwikPen Insulin] 100 unit/mL insulin pen 5 unit SUBCUT TID Qty: 15 1RF Rx Instructions: 5units every 4 hours as needed for blood sugars above 400 Eliquis 5 mg tablet 5 mg PO BID Qty: 180 3RF ondansetron 4 mg tablet,disintegrating 4 mg PO Q8H PRN (Reason: nausea and vomiting) Qty: 20 0RF pioglitazone 45 mg tablet See Rx Instructions .ROUTE .COMPLEX Qty: 30 2RF Dose Instruction: TAKE 1 TABLET BY MOUTH EVERY DAY Rx Instructions: TAKE 1 TABLET BY MOUTH EVERY DAY Mounjaro 10 mg/0.5 mL pen injector See Rx Instructions .ROUTE .COMPLEX Qty: 2 1RF Dose Instruction: inject 10mg (0.5ml) SUBCUTANEOUSLY EVERY 7 DAYS Rx Instructions: inject 10mg (0.5ml) SUBCUTANEOUSLY EVERY 7 DAYS diazepam 5 mg tablet 5 mg PO TID Qty: 90 1RF Rx Instructions: Take one tablet by mouth morning, afternoon, and evening, at least 4 hours apart metformin 1,000 mg tablet See Rx Instructions .ROUTE .COMPLEX Qty: 90 0RF Dose Instruction: TAKE 1 TABLET BY MOUTH EVERY DAY Rx Instructions: TAKE 1 TABLET BY MOUTH EVERY DAY aspirin 81 mg tablet,delayed release (DR/EC) 81 mg PO DAILY acetaminophen [Pain Reliever (acetaminophen)] 500 mg tablet 1,000 mg PO Q6H PRN (Reason: Pain) cetirizine 10 mg Capsule 10 mg PO BEDTIME PRN (Reason: Allergy Symptoms) Jardiance 25 mg tablet 25 mg PO DAILY Biofreeze (menthol) 10 % cream 1 applic topical TID PRN (Reason: muscle pain) Qty: 85 0RF bismuth subsalicylate [Stomach Relief] 262 mg/15 mL suspension 262 mg PO Q4H PRN (Reason: Indigestion) irbesartan 150 mg tablet 150 mg PO DAILY atorvastatin 80 mg tablet 80 mg PO BEDTIME promethazine 25 mg tablet 25 mg PO Q6H PRN (Reason: Nausea And Vomiting) glucose 4 gram Tablet,Chewable 16 g PO PRN PRN (Reason: LOW BLOOD SUGAR) Rx Instructions: for bs lower than 60 ibuprofen 600 mg tablet 600 mg PO TID PRN (Reason: Pain) Discharge Orders: Discharge ED (Routine); Ordered 09/25/24 Ordered By: Deep Swann Referrals: Bautista Ruiz MD [Primary Care Provider] - 1 week Patient Instructions: Anxiety (ED) Activity Restrictions/Additional Instructions: Thank you for choosing [facility] for your healthcare needs today. Please realize that you were seen in the emergency department and that we are providing you with an emergency medical screening exam and this may not be a complete and all exclusive of all testing and/or medical workup we may need to determine your element or severity of your illness. It is very important that you follow-up as instructed with your primary care provider or specialist for the additional evaluation and to discuss your medical treatment plan. You may return to the emergency department should you have concerns or if your condition changes or worsens in any way. Coding Level of Care Code ED Epic Manager for Dasha Nix
[2024-09-25] MEDS: diazePAM 5 mg Tablet PO (00:15)
[2024-09-25 01:08] VITALS: BP 126/75; PULSE 106; RESP 16; O2SAT 96
== END 2024-09-25 01:11 | disposition home or self-care (01) ==
PROVIDERS: Emergency Provider Emergency Medicine; PCP Family Medicine
DX: F41.8 Other specified anxiety disorders (principal); Z79.4 Long term (current) use of insulin; Z79.01 Long term (current) use of anticoagulants; Z79.84 Long term (current) use of oral hypoglycemic drugs; E11.42 Type 2 diabetes mellitus with diabetic polyneuropathy; E78.5 Hyperlipidemia, unspecified
CPT/HCPCS: 99283

== ENCOUNTER → 2024-10-01 08:13 | Outpatient (BNVA) | payer MEDICARE, OTHER, SELFPAY | PROVIDERS: PCP Family Medicine; Visit Provider Podiatrist Foot & Ankle Surgery | DX: E11.42 Type 2 diabetes mellitus with diabetic polyneuropathy (principal); L60.3 Nail dystrophy; Z79.4 Long term (current) use of insulin; Z79.84 Long term (current) use of oral hypoglycemic drugs | CPT/HCPCS: 11721 ==

== ENCOUNTER 2024-10-22 14:07 | Outpatient (CLI) | payer MEDICARE, MEDICAID, SELFPAY ==
--- NOTE | 2024-10-22 14:30 | CT_ITS ---
WS: [id number] CT scan of the head, 10/22/2024 Clinical Data: Fall at home head laceration patient on Eliquis Comparison: CT head, 07/15/2024 DLP: 1123.[address] scans at [facility] use at least one of these dose optimization techniques: automated e xposure control; mA and/or kV adjustment per patient size (includes targeted exams where dose is matc hed to clinical indication); or iterative reconstruction. Findings: The ventricular system is normal without shift. No recent infarct or hemorrhage is seen. There are no abnormal intracerebral masses. The cerebellum and brainstem are not remarkable. Bony windows of the skull and skull base show no fractures or erosions. The mastoid air cells, transportation logistics internship al auditory canals, sella turcica, intraorbital contents, and paranasal sinuses are unremarkable. CT/CT head wo con* [id number] Impression: Negative CT scan of the head
== END 2024-10-22 14:08 | disposition home or self-care (01) ==
LOC: RAD 14:09
PROVIDERS: PCP Family Medicine; Visit Provider Nurse Practitioner Family
DX: S09.90XA Unspecified injury of head, initial encounter (principal); W19.XXXA Unspecified fall, initial encounter; Y92.009 Unspecified place in unspecified non-institutional (private) residence as the place of occurrence of the external cause; Z79.01 Long term (current) use of anticoagulants
CPT/HCPCS: 70450

== ENCOUNTER 2024-10-22 20:58 | Inpatient (IN) | payer MEDICARE, MEDICAID, SELFPAY ==
[2024-10-22 21:00] VITALS: BP 121/77; PULSE 126; RESP 18; TEMP 37.7; O2SAT 90; BMI 31.6
--- NOTE | 2024-10-22 21:05 | XRR_ITS ---
PROCEDURE INFORMATION: Exam: XR Chest Exam date and time: 10/22/2024 9:18 PM Age: 44 years old Clinical indication: Shortness of breath TECHNIQUE: Imaging protocol: Radiologic exam of the chest. Views: 1 view. COMPARISON: CR XR chest 1V portable [id number] 09/03/2024 11:07 PM FINDINGS: Lungs: Unremarkable. No consolidation. Pleural spaces: Unremarkable. No pleural effusion. No pneumothorax. Heart/Mediastinum: Unremarkable. No cardiomegaly. Bones/joints: Unremarkable. XR/XR chest 1V portable [id number] IMPRESSION: No acute plain radiographic cardiopulmonary abnormality.
[2024-10-22 21:08] VITALS: BP 121/77; PULSE 106; RESP 20; O2SAT 92
--- NOTE | 2024-10-22 21:16 | PC.NURSE ---
Pt o2 saturation maintaining 87-88% on room air, pt placed on 2L NC
[2024-10-22] MEDS: sodium chloride 0.9% 1,000 ML 999 ML IV ×2 (21:19→23:41)
[2024-10-22 21:21] LABS: Basophils % 0.2 %; Eosinophils % 0.2 %; Hematocrit 43.1 % (37-53); Lymphocytes % 18.8 %; Mean Corpuscular HGB Conc 32.3 g/dL (30-55); Mean Corpuscular Hemoglobin 28.8 pg (27-33); Mean Corpuscular Volume 89.4 fl (82-101); Mean Platelet Volume 10.3 fL (7.4-10.4); Monocytes # 0.5 10^3/uL (0.2-0.9); Monocytes % 8.3 %; Neutrophils # 3.93 10^3/uL (1.8-7.7); Neutrophils % 72.1 %; Nucleated Red Blood Cells % 0 %; Platelet Count 195 10^3/cmm (157-399); Red Blood Count 4.82 10^6/uL (3.85-5.65); Red Cell Distribution Width 13.9 % (12.1-15.1); White Blood Count 5.44 10^3/uL (3.29-11.43)
[2024-10-22 21:23] LABS: Glucose Point of Care 376 mg/dL (70-110)
--- NOTE | 2024-10-22 21:27 | ECG_ITS ---
[facility]: 2024-10-22 Pat Name: Zaire Nassar Department: Room: Gender: Male Accounts Administrator: : 1980 Requested By: Bety Mancera Order Number: [id number] Drew MD: Yina Lugo M.D. Measurements Intervals [place] Rate: 120 P: 68 IA: 170 QRS: 32 QRSD: 106 T: 56 QT: 282 QTc: 399 Interpretive Statements SINUS TACHYCARDIA MARKED ST ELEVATION, CONSIDER INFERIOR INJURY [MARKED ST ELEVATION W/O NORMALLY INFLECTED T-WAVE IN II/aVF] ACUTE MT Compared to ECG 09/03/2024 22:47:28 ST (T wave) deviation now present First degree AV block no longer present Myocardial infarct finding still present Electronically Signed On 10-22-2024 21:36:31 MORTGAGE SPECIALIST by Yina Lugo M.D. [id number]
[2024-10-22 21:35] LABS: Ketone (Acetest) Serum Negative (Negative)
[2024-10-22 21:36] LABS: Alanine Aminotransferase 173 U/L (0-41); Albumin Level 3.5 g/dL (3.5-5.2); Alkaline Phosphatase 198 U/L (40-130); Anion Gap 17.3 (5-19); Aspartate Amino Transferase 133 U/L (0-40); Blood Urea Nitrogen 8 mg/dL (6-20); Calcium 9.2 mg/dL (8.5-10.5); Carbon Dioxide 29 mmol/L (22-29); Chloride 93 mmol/L (98-107); Creatinine Clr Calc Pharmacy 120.7091; Globulin 3.2 g/dL (1.3-4.6); Glomerular Filtration Rate 80.8 mL/min (90-130); Glucose 392 mg/dL (65-115); Lactic Sepsis W/Reflex 2.5 mmol/L (0.5-2.2); Osmolality Calculated 295 mOsm/kg (285-295); Potassium 4.3 mmol/L (3.5-5.1); Sodium 135 mmol/L (136-145); Total Bilirubin 0.3 mg/dL (0.15-1.2); Total Protein 6.7 g/dL (6.6-8.7)
[2024-10-22 21:38] VITALS: BP 115/69; PULSE 120; RESP 16; O2SAT 90
[2024-10-22 22:01] LABS: Bilirubin Urine Negative (Negative); Blood Urine Negative (Negative); Glucose Urine UA 3+ (Normal); Ketones Urine Negative (Negative); Leukocyte Esterase Urine Negative (Negative); Nitrate Urine Negative (Negative); Protein Urine Negative (Negative); Urine Appearance Clear (CLEAR); Urine Color Yellow (Yellow); pH Urine 6.5 (5-7)
[2024-10-22 22:08] VITALS: BP 113/81; PULSE 106; RESP 19; O2SAT 90
--- NOTE | 2024-10-22 22:08 | W.ED.SOB ---
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 Apparently at the [facility] and tested it was over 400. There is no one there who is able to give him insulin, but he does have it. He says he has had a cold and has been coughing. Has been slightly short of breath. On presentation his heart rate 126. His temp is 99.8. And his sats are in the upper 80s on room air. He does have a history of PE but says he has been taking his Eliquis and does not have any new lower extremity swelling. No chest pain. The only medicine has been taking is a cough medicine. Related Data Home Medications Medication Instructions Recorded Confirmed gabapentin 300 mg capsule 300 mg PO BID 10/11/22 10/13/24 (Neurontin) bismuth subsalicylate 262 mg/15 mL 262 mg PO Q4H PRN Indigestion 03/16/23 10/13/24 oral suspension (Stomach Relief) irbesartan 150 mg tablet 150 mg PO DAILY 03/16/23 10/13/24 acetaminophen 500 mg tablet (Pain 1,000 mg PO Q6H PRN Pain 10/24/23 10/13/24 Reliever (acetaminophen)) aspirin 81 mg tablet,delayed 81 mg PO DAILY 10/24/23 10/13/24 release cetirizine 10 mg capsule 10 mg PO BEDTIME PRN Allergy 10/24/23 10/13/24 Symptoms empagliflozin 25 mg tablet 25 mg PO DAILY 10/24/23 10/13/24 (Jardiance) atorvastatin 80 mg tablet 80 mg PO BEDTIME 12/31/23 10/13/24 glucose 4 gram chewable tablet 16 g PO PRN PRN LOW BLOOD SUGAR 12/31/23 10/13/24 ibuprofen 600 mg tablet 600 mg PO TID PRN Pain 12/31/23 10/13/24 promethazine 25 mg tablet 25 mg PO Q6H PRN Nausea And 12/31/23 10/13/24 Vomiting albuterol sulfate 90 mcg/actuation 2 puff inhalation .q 4 hours PRN 08/05/24 10/13/24 aerosol inhaler icosapent ethyl 1 gram capsule 2 g PO BID 08/05/24 10/13/24 (Vascepa) loperamide 2 mg capsule 2 mg PO Q6H PRN 08/05/24 10/13/24 (Anti-Diarrheal (loperamide)) vitamins A,C,D-ofne-ncqclq 4,296 1 cap PO BID 08/05/24 10/13/24 mcg-226 mg-90 mg capsule (PreserVision AREDS) Previous Rx's Medication Instructions Recorded metoprolol succinate 25 mg 25 mg PO DAILY #90 tabs 11/01/23 tablet,extended release 24 hr glucagon HCl 1 mg solution for 1 mg SUBCUT Q20M PRN hypoglycemia 12/17/23 injection (Glucagon (HCl) #1 ea Emergency Kit) insulin lispro 100 unit/mL 5 unit (0.05 mL) SUBCUT TID #15 mL 01/02/24 subcutaneous pen (Humalog KwikPen (U-100) Insulin) apixaban 5 mg tablet (Eliquis) 5 mg PO BID #180 tabs 01/28/24 omeprazole 40 mg capsule,delayed 40 mg PO DAILY #30 caps 04/19/24 release blood-glucose meter,continuous #1 ea 05/14/24 (FreeStyle Stacey 3 [place]) blood-glucose sensor (FreeStyle #2 ea 05/14/24 Stacey 3 Sensor device) ondansetron 4 mg disintegrating 4 mg PO Q8H PRN nausea and 07/02/24 tablet vomiting #20 tabs aripiprazole 30 mg tablet 15 mg (1/2 x 30 mg) PO BID 30 days 08/05/24 #30 tabs divalproex 500 mg tablet,extended 2,000 mg (4 x 500 mg) PO BEDTIME 08/05/24 release 24 hr 30 days #120 tabs olanzapine 5 mg disintegrating 5 mg PO BID PRN agitation/anxiety 08/05/24 tablet #60 tabs venlafaxine 150 mg 300 mg (2 x 150 mg) PO QAM 30 days 08/05/24 capsule,extended release 24 hr #60 caps blood-glucose meter,continuous #1 ea 08/13/24 (Dexcom G7 Demo Specialist) blood-glucose sensor (Dexcom G7 #3 ea 08/13/24 Sensor device) pioglitazone 45 mg tablet See Rx Instructions .Route 08/27/24 .COMPLEX #30 tabs tirzepatide 10 mg/0.5 mL See Rx Instructions .Route 09/01/24 subcutaneous pen injector .COMPLEX #2 mL (Mounjaro) menthol 10 % topical cream 1 applic topical TID PRN muscle 09/03/24 (Biofreeze (menthol)) pain #85 grams diazepam 5 mg tablet 5 mg PO TID #90 tabs 09/18/24 metformin 1,000 mg tablet See Rx Instructions .Route 09/23/24 .COMPLEX #90 tabs Allergies Allergy/AdvReac Type Severity Reaction Status Date / Time No Known Allergies Allergy Verified 10/13/24 11:30 [facility] ED PFSH: Medical History Coronary-myocardial bridge Peripheral neuropathy Type 2 diabetes mellitus Hyperlipidemia Hypertension Pulmonary embolism Other reactions to severe stress Bipolar 1 disorder Most recent episode depressed Fracture of [email or web address]] Surgical History History of appendectomy Social History Smoking and tobacco/nicotine status: current some day tobacco/nicotine user (some vaping) e-cigarettes Alcohol intake: current Alcohol intake frequency: few times a month Substance/Drug Use: never Marital status: Single Physical Exam Narrative: EXAM NARRATIVE: General: Alert, no acute distress. Skin: Warm, dry. Head: Normocephalic, atraumatic. Neck: Supple, trachea midline. Eye: Extraocular movements are intact. Ears, nose, mouth and throat: Tacky oral mucosa Cardiovascular: Regular, tachycardic, normal peripheral perfusion. Respiratory: Lungs are clear to auscultation, respirations are non-labored, breath sounds are equal, Symmetrical chest wall expansion. Gastrointestinal: Soft, Nontender, Non distended Musculoskeletal: Normal ROM, no deformity. Neurological: Alert and oriented, No focal neurological deficit observed. Psychiatric: Cooperative, appropriate mood & affect. Course Vital Signs: Vital signs: Vital Signs Temperature 99.8 F H 10/22/24 21:00 Pulse Rate 106 H 10/22/24 22:08 Respiratory Rate 19 H 10/22/24 22:08 Blood Pressure 113/81 10/22/24 22:08 Pulse Oximetry 90 10/22/24 22:08 Oxygen Delivery Me thod Nasal Cannula 10/22/24 22:08 Oxygen Flow Rate 2 10/22/24 22:08 MDM - SOB/Dyspnea Medical Decision Making Medical decision making: Differential diagnosis for the patient with hyperglycemia would include but not be limited to and would be based on the above HPI review of systems and physical exam: DKA. Dehydration. Renal failure. Concern for electrolyte abnormalities. Concern for underlying infection that might result in hyperglycemia. Medical non-compliance Orders placed to evaluate differential diagnosis of the patient with hyperglycemia are based on the above differential, HPI and physical exam. AB.4 with an O2 sat of 86% at on 3 L nasal cannula. Lab Review: Laboratory results were reviewed and interpreted by myself the emergency room physician. No leukocytosis. No anemia. No renal failure. Glucose is 392 on BMP. Chest x-ray: No acute process. No infiltrate. No pneumothorax. This was reviewed and interpreted by myself the emergency room physician. I also reviewed the radiology report. CT of the chest without contrast: This was ordered because of his hypoxemia. This does reveal a fairly extensive retrocardiac pneumonia on the left side. I reviewed the patient's medical record. Reexamination: Patient is stable on 2 to 3 L nasal cannula. He is resting comfortably. No increased work of breathing at this time. Heart rate has improved some. Consultation: I spoke with Dr. Archibald who agrees to admission to the hospital. Assessment and plan: Pneumonia Hypoxemia Dehydration Hyperglycemia ?Possible sepsis versus dehydration and pneumonia. Patient was tachycardic but his urine is quite concentrated. He is on Eliquis so I do not think this is new pulmonary embolism particular given that he has a pneumonia on the CT scan. No leukocytosis and no lactic acidosis but I am giving septic fluids anyway. -2.5 L normal saline bolus. Fluid volumes based on ideal body weight. -Broad-spectrum antibiotics were administered. Rocephin and doxycycline were given. -Sepsis quality measures. -Lactic acid with a reflex was ordered. -Blood cultures were ordered. ?Patient is stable on 2 to 3 L nasal cannula. He is resting comfortably. No increased work of breathing at this time. Heart rate has improved some. ?Blood glucose is improving with fluids. - Discharged home - Discussed plan with patient. Answered any questions. - Evaluation and treatment of this problem were appropriate in the emergency setting. Critical care -I spent a total of >35 minutes of critical care time managing the patient, independent of any other practitioner. -The time involved in the performance of separately reportable procedures was not counted towards critical care time. Lab Data 10/22/24 21:14 10/22/24 21:14 Labs/Radiology: Radiology Impressions Chest X-Ray 10/22/24 21:05 IMPRESSION: No acute plain radiographic cardiopulmonary abnormality. ADDENDUM: 10/22/24 [id number] Upon further review, vague retrocardiac patchy opacity compatible with pneumonia is newly visualized. Chest CT 10/22/24 22:10 IMPRESSION: 1. Extensive left lower lobe pneumonic consolidation. Aspiration may be considered. Radiographic follow-up to resolution recommended. 2. Nondisplaced subacute oblique sternal fracture with callus formation. Laboratory Results WBC 5.44 10^3/uL (3.29-11.43) 10/22/24 21:14 RBC 4.82 10^6/uL (3.85-5.65) 10/22/24 21:14 Hgb 13.90 g/dL (11.27-16.99) 10/22/24 21:14 Hct 43.1 % (37-53) 10/22/24 21:14 MCV 89.4 fl (82-101) 10/22/24 21:14 MCH 28.8 pg (27-33) 10/22/24 21:14 MCHC 32.3 g/dL (30-55) 10/22/24 21:14 RDW 13.9 % (12.1-15.1) 10/22/24 21:14 Plt Count 195 10^3/cmm (157-399) 10/22/24 21:14 MPV 10.3 fL (7.4-10.4) 10/22/24 21:14 Neut % (Auto) 72.1 % 10/22/24 21:14 Lymph % (Auto) 18.8 % 10/22/24 21:14 [place] % (Auto) 8.3 % 10/22/24 21:14 Eos % (Auto) 0.2 % 10/22/24 21:14 Baso % (Auto) 0.2 % 10/22/24 21:14 Neut # (Auto) 3.93 10^3/uL (1.8-7.7) 10/22/24 21:14 Lymph # (Auto) 1.0 10^3/uL (0.8-4.8) 10/22/24 21:14 [place] # (Auto) 0.5 10^3/uL (0.2-0.9) 10/22/24 21:14 Eos # (Auto) 0.0 10^3/uL (0.0-0.8) 10/22/24 21:14 Baso # (Auto) 0.0 10^3/uL (0.0-0.1) 10/22/24 21:14 Nucleated RBC % (auto) 0 % 10/22/24 21:14 Nucleated RBCs # 0.0 /100WBC 10/22/24 21:14 Sodium 135 mmol/L (136-145) L 10/22/24 21:14 Potassium 4.3 mmol/L (3.5-5.1) 10/22/24 21:14 Chloride 93 mmol/L (98-107) L 10/22/24 21:14 Carbon Dioxide 29 mmol/L (22-29) 10/22/24 21:14 Anion Gap 17.3 (5-19) 10/22/24 21:14 BUN 8 mg/dL (6-20) 10/22/24 21:14 Creatinine 1.0 mg/dL (0.7-1.2) 10/22/24 21:14 GFR Calculation 80.8 mL/min (90-130) L 10/22/24 21:14 Glucose 392 mg/dL (65-115) H 10/22/24 21:14 POC Glucose 376 mg/dL (70-110) H 10/22/24 21:06 Calculated Osmolality 295 mOsm/kg (285-295) 10/22/24 21:14 Lactic Acid 2.5 mmol/L (0.5-2.2) H 10/22/24 21:14 Calcium 9.2 mg/dL (8.5-10.5) 10/22/24 21:14 Total Bilirubin 0.3 mg/dL (0.15-1.2) 10/22/24 21:14 AST 133 U/L (0-40) H 10/22/24 21:14 ALT 173 U/L (0-41) H 10/22/24 21:14 Alkaline Phosphatase 198 U/L (40-130) H 10/22/24 21:14 Total Protein 6.7 g/dL (6.6-8.7) 10/22/24 21:14 Albumin 3.5 g/dL (3.5-5.2) 10/22/24 21:14 Globulin 3.2 g/dL (1.3-4.6) 10/22/24 21:14 Urine Color Yellow (Yellow) 10/22/24 21:55 Urine Appearance Clear (CLEAR) 10/22/24 21:55 Urine pH 6.5 (5-7) 10/22/24 21:55 Ur Specific Tensed 1.040 (1.005-1.030) H 10/22/24 21:55 Urine Protein Negative (Negative) 10/22/24 21:55 Urine Glucose (UA) 3+ (Normal) H 10/22/24 21:55 Urine Ketones Negative (Negative) 10/22/24 21:55 Urine Blood Negative (Negative) 10/22/24 21:55 Urine Nitrate Negative (Negative) 10/22/24 21:55 Urine Bilirubin Negative (Negative) 10/22/24 21:55 Urine Urobilinogen 1.0 mg/dL (Negative) 10/22/24 21:55 Ur Leukocyte Esterase Negative (Negative) 10/22/24 21:55 Urine RBC 0-2 /hpf (0-2) 10/22/24 21:55 Urine WBC 0-5 /hpf (0-5) 10/22/24 21:55 Ur Squamous Epith Cells 0-5 /hpf (0-5) 10/22/24 21:55 Amorphous Sediment Not Reportable 10/22/24 21:55 Urine Bacteria None seen /hpf (NONE) 10/22/24 21:55 Hyaline Casts 0-4 /lpf H 10/22/24 21:55 Serum Ketones Negative (Negative) 10/22/24 21:14 Coronavirus (PCR) Negative (Negative) 10/22/24 21:14 Influenza A (PCR) Negative (Negative) 10/22/24 21:14 Influenza Type B (PCR) Negative (Negative) 10/22/24 21:14 RSV (PCR) Negative (Negative) 10/22/24 21:14 All radiology interpretation(s) finalized by discharge Discharge Plan Discharge Patient Disposition: Admitted As Inpatient Clinical Impression: Pneumonia, Hypoxemia, Hyperglycemia, Dehydration Condition: Stable Coding Level of Care Code ED [employer] for [facility]
[2024-10-22 22:09] LABS: Covid PCR NEGATIVE (Negative); Influenza A NEGATIVE (Negative); Influenza B NEGATIVE (Negative); Respiratory Syncytial Virus Ce NEGATIVE (Negative)
--- NOTE | 2024-10-22 22:10 | CTR_ITS ---
PROCEDURE INFORMATION: Exam: CT Chest Without Contrast; Diagnostic Exam date and time: 10/22/2024 10:26 PM Age: 44 years old Clinical indication: Other: Hypoxemia TECHNIQUE: Imaging protocol: Diagnostic computed tomography of the chest without contrast. Radiation optimization: All CT scans at this facility use at least one of these dose optimization techniques: automated exposure control; mA and/or kV adjustment per patient size (includes targeted exams where dose is matched to clinical indication); or iterative reconstruction. COMPARISON: CT angio chest PE protcl [id number] 01/15/2023 11:16 PM RADIATION DOSE METRICS: Total DLP (mGy-cm): 663.11 FINDINGS: Lungs: Moderate pneumonic consolidation in the left lower lobe. Pleural spaces: Trace left pleural effusion. Mild patchy peribronchial opacities also noted in the left upper lobe. Heart: Unremarkable. No cardiomegaly. No pericardial effusion. Coronary arteries: Mild coronary calcification. Lymph nodes: Unremarkable. No enlarged lymph nodes. Vasculature: Unremarkable. No aortic aneurysm. Bones/joints: Moderate multilevel degenerative thoracic endplate osteophytosis. Subacute morphology fracture of the sternal body with callus formation. No displacement. Soft tissues: See Bones/joints finding. CT/CT chest wo con [id number] IMPRESSION: 1. Extensive left lower lobe pneumonic consolidation. Aspiration may be considered. Radiographic follow-up to resolution recommended. 2. Nondisplaced subacute oblique sternal fracture with callus formation.
[2024-10-22 22:12] LABS: Bacteria Urine None Seen /hpf; Hyaline Casts Urine 0-4 /lpf; RBC Urine 0-2 /hpf (0-2); Squamous Epithelial Cell Urine 0-5 /hpf (0-5); WBC Urine 0-5 /hpf (0-5)
[2024-10-22 22:29] LABS: Reflex Lactate Order REFLEX LACTIC ORDERD
[2024-10-22] MEDS: doxycycline 100 MG in sodium chloride 0.9% (plus) 100 ML IV (23:14)
[2024-10-22] MEDS: cefTRIAXone 1,000 mg SDV 1000 MG IVP (23:14)
[2024-10-22] MEDS: sodium chloride 0.9% 500 ML 999 ML IV (23:41)
[2024-10-22 23:57] LABS: Glucose Point of Care 188 mg/dL (70-110)
[2024-10-23] VITALS (26 sets, daily range): BP systolic 108–135; BP diastolic 64–86; PULSE 85–119; RESP 10–31; TEMP 36.7–38; O2SAT 88–95; BMI 33.5
--- NOTE | 2024-10-23 | PM.HP ---
Providers/Chief Complaint Admitting Physician: Giuliano Archibald MD Primary Care Provider: Bautista Ruiz MD Chief Complaint: HIGH BLOOD SUGAR History of Present Illness Zaire Nassar is a 44 year old male with a past medical history of developmental delay, pulm embolism on Eliquis, type 2 diabetes mellitus, hyperlipidemia, hypertension, bipolar disorder, who presents to [facility] due to cough, subjective fevers, chills, fluctuating blood sugars, poor appetite, fatigue, malaise. Currently patient is alert to person, to place, not to time he follows all commands, reports a nonproductive cough, fatigue, malaise, subjective fevers, chills, poor appetite. Caregivers at bedside tell me that he has had fluctuating blood sugars, low blood sugars at times and now high blood sugars. No reported nausea or vomiting. Does report increased shortness of breath. No chest pain. Review of Systems Const: Reports: fever(s), chills, fatigue and malaise Card: Denies: chest pain Resp: Reports: dyspnea and non-productive cough GI: Denies: abdominal pain : Denies: flank pain Medications/Allergies Home Medications Medication Instructions Recorded Confirmed Last Taken Type gabapentin 300 mg capsule 300 mg PO BID 10/11/22 10/13/24 12/30/23 History (Neurontin) bismuth subsalicylate 262 mg/15 mL 262 mg PO Q4H PRN Indigestion 03/16/23 10/13/24 Unknown History oral suspension (Stomach Relief) irbesartan 150 mg tablet 150 mg PO DAILY 03/16/23 10/13/24 12/30/23 History acetaminophen 500 mg tablet (Pain 1,000 mg PO Q6H PRN Pain 10/24/23 10/13/24 Unknown History Reliever (acetaminophen)) aspirin 81 mg tablet,delayed 81 mg PO DAILY 10/24/23 10/13/24 12/30/23 History release cetirizine 10 mg capsule 10 mg PO BEDTIME PRN Allergy 10/24/23 10/13/24 Unknown History Symptoms empagliflozin 25 mg tablet 25 mg PO DAILY 10/24/23 10/13/24 12/30/23 History (Jardiance) metoprolol succinate 25 mg 25 mg PO DAILY #90 tabs 11/01/23 10/13/24 12/30/23 Rx tablet,extended release 24 hr glucagon HCl 1 mg solution for 1 mg SUBCUT Q20M PRN hypoglycemia 12/17/23 10/13/24 Unknown Rx injection (Glucagon (HCl) #1 ea Emergency Kit) atorvastatin 80 mg tablet 80 mg PO BEDTIME 12/31/23 10/13/24 12/30/23 History glucose 4 gram chewable tablet 16 g PO PRN PRN LOW BLOOD SUGAR 12/31/23 10/13/24 Unknown History ibuprofen 600 mg tablet 600 mg PO TID PRN Pain 12/31/23 10/13/24 Unknown History promethazine 25 mg tablet 25 mg PO Q6H PRN Nausea And 12/31/23 10/13/24 Unknown History Vomiting insulin lispro 100 unit/mL 5 unit (0.05 mL) SUBCUT TID #15 mL 01/02/24 10/13/24 Unknown Rx subcutaneous pen (Humalog KwikPen (U-100) Insulin) apixaban 5 mg tablet (Eliquis) 5 mg PO BID #180 tabs 01/28/24 10/13/24 Unknown Rx omeprazole 40 mg capsule,delayed 40 mg PO DAILY #30 caps 04/19/24 10/13/24 Unknown Rx release blood-glucose meter,continuous #1 ea 05/14/24 10/13/24 Unknown Rx (FreeStyle Stacey 3 [place]) blood-glucose sensor (FreeStyle #2 ea 05/14/24 10/13/24 Unknown Rx Stacey 3 Sensor device) ondansetron 4 mg disintegrating 4 mg PO Q8H PRN nausea and 07/02/24 10/13/24 Unknown Rx tablet vomiting #20 tabs albuterol sulfate 90 mcg/actuation 2 puff inhalation .q 4 hours PRN 08/05/24 10/13/24 Unknown History aerosol inhaler aripiprazole 30 mg tablet 15 mg (1/2 x 30 mg) PO BID 30 days 08/05/24 10/13/24 Unknown Rx #30 tabs divalproex 500 mg tablet,extended 2,000 mg (4 x 500 mg) PO BEDTIME 08/05/24 10/13/24 Unknown Rx release 24 hr 30 days #120 tabs icosapent ethyl 1 gram capsule 2 g PO BID 08/05/24 10/13/24 Unknown History (Vascepa) loperamide 2 mg capsule 2 mg PO Q6H PRN 08/05/24 10/13/24 Unknown History (Anti-Diarrheal (loperamide)) olanzapine 5 mg disintegrating 5 mg PO BID PRN agitation/anxiety 08/05/24 10/13/24 Unknown Rx tablet #60 tabs venlafaxine 150 mg 300 mg (2 x 150 mg) PO QAM 30 days 08/05/24 10/13/24 Unknown Rx capsule,extended release 24 hr #60 caps vitamins A,C,E-ewlg-hcsksu 4,296 1 cap PO BID 08/05/24 10/13/24 Unknown History mcg-226 mg-90 mg capsule (PreserVision AREDS) blood-glucose meter,continuous #1 ea 08/13/24 10/13/24 Unknown Rx (Dexcom G7 Cocoa Butter Filter Operator) blood-glucose sensor (Dexcom G7 #3 ea 08/13/24 10/13/24 Unknown Rx Sensor device) pioglitazone 45 mg tablet See Rx Instructions .Route 08/27/24 10/13/24 Unknown Rx .COMPLEX #30 tabs tirzepatide 10 mg/0.5 mL See Rx Instructions .Route 09/01/24 10/13/24 Unknown Rx subcutaneous pen injector .COMPLEX #2 mL (Mounjaro) menthol 10 % topical cream 1 applic topical TID PRN muscle 09/03/24 10/13/24 Unknown Rx (Biofreeze (menthol)) pain #85 grams diazepam 5 mg tablet 5 mg PO TID #90 tabs 09/18/24 10/13/24 Unknown Rx metformin 1,000 mg tablet See Rx Instructions .Route 09/23/24 10/13/24 Unknown Rx .COMPLEX #90 tabs Allergies Allergy/AdvReac Type Severity Reaction Status Date / Time No Known Allergies Allergy Verified 10/13/24 11:30 PFSH Acute PFSH: Medical History Coronary-myocardial bridge Peripheral neuropathy Type 2 diabetes mellitus Hyperlipidemia Hypertension Pulmonary embolism Other reactions to severe stress Bipolar 1 disorder Most recent episode depressed Fracture of [facility] Surgical History History of appendectomy Social History Smoking and tobacco/nicotine status: current some day tobacco/nicotine user (some vaping) e-cigarettes Alcohol intake: current Alcohol intake frequency: few times a month Substance/Drug Use: never Marital status: Single Vitals/I&O/Wt Last Vital Signs Temp 99.8 F H 10/22/24 21:00 Pulse 106 H 10/22/24 22:08 Resp 19 H 10/22/24 22:08 BP 113/81 10/22/24 22:08 Pulse Ox 90 10/22/24 22:08 O2 Del Method Nasal Cannula 10/22/24 22:08 O2 Flow Rate 2 10/22/24 22:08 10/22/24 10/22/24 10/23/24 14:59 22:59 06:59 Intake Total 0 / 0 Balance 0 / 0 Weight last 48 hrs Weight 108.862 kg Physical Exam Const: COMMON NORMALS: no acute distress ORIENTATION/CONSCIOUSNESS: Yes awake, Yes oriented to person and Yes oriented to place HENMT: COMMON NORMALS: normocephalic HEAD & SCALP: normocephalic Neck/C-Spine: COMMON NORMALS: no JVD Resp: COMMON NORMALS: normal respiratory effort, No retractions and No use of accessory muscles AUSCULTATION: wheezes Cardio: COMMON NORMALS: regular rate, regular rhythm, S1 normal heart sound present and S2 normal heart sound present RATE: regular rate RHYTHM: regular rhythm HEART SOUNDS: S1 normal heart sound present and S2 normal heart sound present GI: COMMON NORMALS: Normal to inspection, nondistended, normoactive bowel sounds present, Soft to palpation and non-tender Extremity: COMMON NORMALS: no calf tenderness and no pedal edema Neuro: COMMON NORMALS: CN's II-XII intact bilaterally, moves all extremities and no focal motor deficits Psych: COMMON NORMALS: mental status grossly normal Data 10/22/24 21:14 10/22/24 21:14 Micro: Microbiology 10/22/24 21:40 Blood Culture - Preliminary Blood SPECIMEN COLLECTED 10/22/24 21:43 Blood Culture - Preliminary Blood SPECIMEN COLLECTED A&P Assessment and plan (1) Acute respiratory failure with hypoxia: (2) Pneumonia: (3) Bipolar 1 disorder: (4) Hypertension: (5) Hyperlipidemia: (6) Chronic anticoagulation: (7) Type 2 diabetes mellitus: Qualifiers: Diabetes mellitus complication status: without complication Diabetes mellitus penitentiary insulin use: with penitentiary use Qualified Code(s): E11.9 - Type 2 diabetes mellitus without complications; Z79.4 - prison (current) use of insulin (8) Sepsis: (9) Mild intellectual disability: Plan Acute hypoxia secondary to pneumonia Plan -Continue Rocephin -Continue Zithromycin -Ordered CRP, Pro-Jorden -Sputum culture -Blood culture -DuoNeb -Budesonide -Monitor respiratory status closely -Full code -Eliquis for DVT prophylaxis Sepsis, sepsis features met given hypoxia of 2 L tachycardic heart rate 106, respiratory 19 temperature 99.8 Fluctuating blood sugars, now with hyperglycemia -Moderate dose sliding scale Transaminitis, ultrasound liver Type 2 diabetes mellitus, low-dose sliding scale History of pulmonary embolism, continue Eliquis Attestations Medical Necessity Statement*: Patient requires hospitalization, inpatient, greater than 2 midnights for acute hypoxia secondary to pneumonia, transaminitis Diagnoses Acute respiratory failure with hypoxia J96.01 Pneumonia J18.9 Bipolar 1 disorder F31.9 Hypertension I10 Hyperlipidemia E78.5 Chronic anticoagulation Z79.01 Type 2 diabetes mellitus E11.9; Z79.4 Diabetes mellitus complication status: without complication Diabetes mellitus salvage determiner insulin use: with penitentiary use Sepsis A41.9 Mild intellectual disability F70
[2024-10-23 00:18] LABS: Lactic Acid level (Lactate) 1.2 mmol/L (0.5-2.2)
[2024-10-23 01:07] LABS: NT Pro B Type Natriuretic Pept 69 pg/mL (0-125)
[2024-10-23 04:20] LABS: ABG PH Result 7.47 (7.35-7.45)
[2024-10-23 04:21] LABS: Base Excess ABG 6.3 mmol/L (-2.0-2.0); Blood Gas Allen Test Y; Blood Gas Operator Identificat BUSJA; HCO3 ABG 30.6 mmol/L (22-26); Oxygen Saturation ABG 87.1; PO2 ABG 41.7 mmHg (80.0-100.0); Potassium Level - ABG 4.1 mmol/L (3.5-5.0)
[2024-10-23 04:22] LABS: Blood Gas Drawn By BUSJA; Blood Gas Sample Site RADIAL RIGHT; Blood Gas Sample Type ART; Oxygen Device NC
[2024-10-23 04:23] LABS: Carboxyhemoglobin 1.3 %THgb (0.4-20.1); HGB O2 Sat 85.9 % (95-100); Ionized Calcium Level - ABG 1.1 mmol/L (1.1-1.4); Methemoglobin 0.1 % (0.4-1.5); Total Hemoglobin 13.2 g/dL (14-18)
--- NOTE | 2024-10-23 04:43 | PC.NURSE ---
Respiratory placed pt on bipap, ot was unable to maintain o2 sats on nc while sleeping.
--- NOTE | 2024-10-23 05:06 | US_ITS ---
WS: [id number] Complete ABDOMINAL ULTRASOUND HISTORY: ruq COMPARISON: None available. Liver: 18.7 cm in length. Mildly enlarged liver. No mass or duct dilatation. Portal Vein: Normal hepatopetal flow with monophasic waveform. Gallbladder: Normally distended gallbladder with no stones or wall thickening. CBD: 0.4 cm Pancreas: Obscured. Not well visualized. Right kidney: 11.9 cm x 7.5 x 7.6 cm. Cortex:1.6 cm. Normal size and echogenicity. No hydronephrosis or mass. Left kidney: 12.6 cm x 7.0 cm x 7.8 cm. Cortex: 1.5 cm. Normal size and echogenicity. No hydronephrosis or mass. Spleen: Not imaged. Aorta and IVC: Unremarkable abdominal aorta and IVC. US/US abdomen complete* [id number] Impression: 1. Normal gallbladder. 2. Normal kidneys. No obstruction. 3. Spleen was not imaged.
[2024-10-23 05:35] LABS: Procalcitonin 0.12 ng/mL (0-0.5); Thyroid Stimulating Hormone 2.39 uIU/mL (0.27-4.20)
[2024-10-23 05:47] LABS: C Reactive Protein 164.4 mg/L (0.0-4.9); Chol HDL Ratio 3.33 mg/dL (1.0-5.00); Cholesterol 120 mg/dL (0-200); HDL Cholesterol 36 mg/dL (60-100); LDL Cholesterol Calculated 50 mg/dL (50-129); LDL HDL Ratio 1.39 RATIO (0.00-3.22); Triglycerides 171 mg/dL (0-150)
[2024-10-23 05:57] LABS: Estmated Average Glucose 235; Hemoglobin A1C 9.8 % (4.0-6.0)
[2024-10-23] MEDS: venlafaxine ER (24HR) 150 mg Capsule 300 MG PO (06:04)
[2024-10-23] MEDS: pantoprazole 40 mg SDV IVP (06:04)
[2024-10-23] MEDS: ipratropium-albuterol 3 mL Neb INHALATION (07:30)
[2024-10-23] MEDS: budesonide 0.5 mg/2 mL Neb INHALATION ×2 (07:30→21:35)
--- NOTE | 2024-10-23 07:35 | PC.PHAR ---
Addendum entered by Malika Garcia 10/23/24 07:35: Guardian will have a med list. Original Note: [facility]
[2024-10-23 08:12] LABS: Glucose Point of Care 196 mg/dL (70-110)
--- NOTE | 2024-10-23 08:15 | PC.NURSE ---
pt refused breakfast tray, requested turkey sandwich
[2024-10-23] MEDS: aspirin 81 mg EC Tablet PO (08:26)
[2024-10-23] MEDS: apixaban 5 mg Tablet PO ×2 (08:26→18:18)
[2024-10-23] MEDS: gabapentin 300 mg Capsule PO ×2 (08:26→18:18)
[2024-10-23] MEDS: diazePAM 5 mg Tablet PO ×3 (08:26→20:23)
[2024-10-23] MEDS: losartan 50 mg Tablet PO (08:26)
[2024-10-23] MEDS: ARIPiprazole 10 mg Tablet 15 MG PO ×2 (08:27→18:18)
[2024-10-23] MEDS: metoprolol succinate ER (24 HR) 50 mg Tablet 25 MG PO (08:29)
--- NOTE | 2024-10-23 08:48 | PC.NURSE ---
pt refuses insulin, states only takes PRN Humalog if glucose >400. Dr. Ellis notified.
[2024-10-23 11:58] LABS: Glucose Point of Care 219 mg/dL (70-110)
--- NOTE | 2024-10-23 12:51 | PC.NURSE ---
Dr. Ellis ordered this nurse to give patient humalog but hold the lantus for now. Patients blood sugar is 219.
[2024-10-23] MEDS: insulin lispro 100 unit/1 mL SUBCUT ×3 (12:53→20:24)
[2024-10-23] MEDS: levalbuterol 0.63 mg/3 mL Neb INHALATION ×2 (13:10→21:36)
[2024-10-23] MEDS: ipratropium 0.5 mg/2.5 mL Neb INHALATION ×2 (13:10→21:36)
[2024-10-23 13:20] LABS: Iron 10 ug/dL (59-158)
--- NOTE | 2024-10-23 13:22 | P.EN_ITS ---
Event Note Event Note: Admitted overnight. H&P and labs appreciated. Seen on [facility] floor with nursing [facility] at bedside. Patient laying comfortably in bed. Continues to remain on 6 to 7 L of oxygen supplementation to maintain saturation over 90%. States feeling better. Imaging appreciated. Concerns for left-sided lower lobe pneumonia with concerns for aspiration pneumonitis. Patient denies any history of vomiting or aspiration recently. Plan: Continue with inhalation treatment with Pulmicort and ipratropium, Xopenex every 6 hours. Add Mucomyst. Aggressive pulmonary toilet with I-S and Acapella. Speech evaluation. For now continue with IV ceftriaxone and azithromycin to cover for community- acquired pneumonia. Check MRSA swab. If positive will add linezolid. Check sputum culture. A1c elevated to 9.8. Counseled patient to be consistent more with Humalog. He is agreeable now. Will be getting Sliding scale low-dose protocol. If the blood sugars continue to remain elevated can add 10 units of Lantus. Hold off on home dose of Mounjaro to be due on 10/24. Changed to carb consistent diet. Continue other chronic home medications. Event Notes Attestations Time Spent in Patient Care: Requires further hospitalization for management of hypoxic respiratory failure in setting of left lower lobe pneumonia with concerns for aspiration pneumonitis
[2024-10-23 13:35] LABS: Procalcitonin 0.11 ng/mL (0-0.5); Vitamin B12 315 pg/mL (232-1245)
[2024-10-23 14:04] LABS: Percent Saturation 5.4 % (20-50); Total Iron Binding Capacity 185 mcg/dl; Unsaturated Iron Binding 175 ug/dL (112-347)
[2024-10-23 15:07] LABS: MRSA PCR OZH (swab) NOT DETECTED (Negative)
[2024-10-23 16:55] LABS: Glucose Point of Care 194 mg/dL (70-110)
[2024-10-23 20:22] LABS: Glucose Point of Care 181 mg/dL (70-110)
[2024-10-23] MEDS: atorvastatin 40 mg Tablet PO (20:23)
[2024-10-23] MEDS: divalproex ER 500 mg Tablet (24H) 2000 MG PO (20:24)
[2024-10-23] MEDS: acetylcysteine 200 mg/mL SDV 4 mL 100 MG INHALATION (21:35)
[2024-10-23] MEDS: AZITHROMYCIN ADD-Vantage 500 MG in 0.9% NaCl ADD-Vantage 250 ML 250 MG IV (22:12)
[2024-10-23] MEDS: cefTRIAXone 1,000 mg SDV 1000 MG IVP (23:15)
[2024-10-24] VITALS (20 sets, daily range): BP systolic 101–119; BP diastolic 57–77; PULSE 96–117; RESP 16–36; TEMP 37.2–38.6; O2SAT 86–93
[2024-10-24] MEDS: acetaminophen 325 mg Tablet 650 MG PO ×2 (01:44→21:29)
[2024-10-24] MEDS: acetylcysteine 200 mg/mL SDV 4 mL 100 MG INHALATION ×4 (03:00→20:20)
[2024-10-24] MEDS: ipratropium 0.5 mg/2.5 mL Neb INHALATION ×4 (03:00→20:21)
[2024-10-24] MEDS: levalbuterol 0.63 mg/3 mL Neb INHALATION ×4 (03:00→20:21)
[2024-10-24] MEDS: venlafaxine ER (24HR) 150 mg Capsule 300 MG PO (05:45)
[2024-10-24] MEDS: pantoprazole 40 mg SDV IVP (05:45)
[2024-10-24 06:23] LABS: Glucose Point of Care 99 mg/dL (70-110)
[2024-10-24 06:33] LABS: Basophils % 0.1 %; Hematocrit 37.7 % (37-53); Lymphocytes # 1.7 10^3/uL (0.8-4.8); Lymphocytes % 23.4 %; Mean Corpuscular HGB Conc 35.5 g/dL (30-55); Mean Corpuscular Hemoglobin 34.8 pg (27-33); Mean Corpuscular Volume 97.9 fl (82-101); Mean Platelet Volume 10.8 fL (7.4-10.4); Monocytes # 0.4 10^3/uL (0.2-0.9); Monocytes % 6.1 %; Neutrophils # 4.93 10^3/uL (1.8-7.7); Neutrophils % 69.8 %; Nucleated Red Blood Cells % 0 %; Platelet Count 211 10^3/cmm (157-399); Red Blood Count 3.85 10^6/uL (3.85-5.65); Red Cell Distribution Width 15.8 % (12.1-15.1); White Blood Count 7.06 10^3/uL (3.29-11.43)
[2024-10-24 06:55] LABS: Alanine Aminotransferase 240 U/L (0-41); Albumin Level 2.9 g/dL (3.5-5.2); Alkaline Phosphatase 218 U/L (40-130); Anion Gap 16.2 (5-19); Aspartate Amino Transferase 187 U/L (0-40); Blood Urea Nitrogen 13 mg/dL (6-20); Calcium 9.3 mg/dL (8.5-10.5); Carbon Dioxide 28 mmol/L (22-29); Chloride 100 mmol/L (98-107); Creatinine Clr Calc Pharmacy 138.2977; Glomerular Filtration Rate 91.3 mL/min (90-130); Glucose 118 mg/dL (65-115); Osmolality Calculated 291 mOsm/kg (285-295); Potassium 4.2 mmol/L (3.5-5.1); Sodium 140 mmol/L (136-145); Total Bilirubin 0.4 mg/dL (0.15-1.2); Total Protein 6.9 g/dL (6.6-8.7)
[2024-10-24 07:47] LABS: Folate Level 19.1 ng/mL (4.5-32.2)
[2024-10-24] MEDS: budesonide 0.5 mg/2 mL Neb INHALATION ×2 (07:54→20:21)
[2024-10-24] MEDS: metoprolol succinate ER (24 HR) 50 mg Tablet 25 MG PO (09:15)
[2024-10-24] MEDS: losartan 50 mg Tablet PO (09:15)
[2024-10-24] MEDS: gabapentin 300 mg Capsule PO ×2 (09:16→17:51)
[2024-10-24] MEDS: diazePAM 5 mg Tablet PO ×3 (09:16→20:50)
[2024-10-24] MEDS: aspirin 81 mg EC Tablet PO (09:16)
[2024-10-24] MEDS: apixaban 5 mg Tablet PO ×2 (09:16→17:51)
[2024-10-24] MEDS: ARIPiprazole 10 mg Tablet 15 MG PO ×2 (09:16→17:51)
--- NOTE | 2024-10-24 10:20 | FL_ITS ---
WS: [id number] MODIFIED BARIUM SWALLOW HISTORY: Oropharyngeal dysphagia FLUOROSCOPY TIME: 2min [id number] # of spot films: [id number] Modified barium swallow was performed by the speech pathologist. Fluoroscopy was provided with the pa tient in a lateral projection. Multiple food consistencies were provided. Patient swallowed the food mixtures without difficulty. No aspiration or penetration was evident. Bar ium tablet was swallowed without difficulty. Small amount of the oral contrast was retained within th e mid esophagus. FL/FL barium swallow modifd [id number] IMPRESSION: No laryngeal penetration or aspiration. Please see speech therapist report also for recommendations.
--- NOTE | 2024-10-24 10:45 | PC.SOCIAL ---
IMM Update pg 2 of IMM updated and reviewed w/ patients guardian. Copy left @ bedside and copy dated, initialed and placed in chart.
[2024-10-24 10:59] LABS: Glucose Point of Care 236 mg/dL (70-110)
--- NOTE | 2024-10-24 11:34 | P.PN_ITS ---
Subjective 2 Medications: Medication Review Details: Overnight patient had shortness of breath after which was placed on BiPAP. Today morning on transition to nasal cannula saturations down to 86%. Currently on 12 L of nasal cannula as per patient's request saturating 88 to 90%. Plan to transition to heated high flow. Patient [place]ar[place] comfortably in bed. Vitals/I&O/Wt Last Vital Signs Temp 98.9 F 10/24/24 08:00 Pulse 104 H 10/24/24 08:06 Resp 18 10/24/24 08:00 BP 114/77 10/24/24 09:15 Pulse Ox 93 10/24/24 08:00 O2 Del Method BiPAP 10/24/24 08:00 O2 Flow Rate 10 10/23/24 21:36 FiO2 65 10/24/24 07:52 10/23/24 10/24/24 10/24/24 22:59 06:59 14:59 Intake Total 600 / 718 610 / 1328 340 / 340 Output Total 1400 / 1400 425 / 425 Balance -800 / -682 610 / -72 -85 / -85 Weight last 48 hrs Weight 115.984 kg Weight 115.326 kg Weight 108.862 kg Physical Exam 2 Narrative: General: No acute distress, AO 2-3, on nasal cannula, forgetful HEENT: PERRLA, pupils bilaterally equal and reactive Chest: Bilateral bronchial breath sounds all over lung perea, coarse crackles present in left lower zone with rhonchi CVS: S1-S2 regular, no murmurs, no tachycardia, no gallops, no rubs Abdomen: Soft, nontender, no organomegaly, bowel sounds present Neuro: No focal deficits, no facial deformity, AO x3, power 5/5 in all limbs Data 10/24/24 05:57 10/24/24 05:57 Micro: Microbiology 10/22/24 21:40 Blood Culture - Preliminary Blood NEGATIVE TO DATE 10/22/24 21:43 Blood Culture - Preliminary Blood NEGATIVE TO DATE 10/22/24 21:55 Bacterial Antigens - Final Urine Kidney A&P Assessment and plan (1) Sepsis: (2) Acute respiratory failure with hypoxia: (3) Pneumonia: Qualifiers: Pneumonia type: aspiration pneumonia Aspiration pneumonia type: u nspecified Laterality: left Lung location: lower lobe of lung Qualified Code(s): J69.0 - Pneumonitis due to inhalation of food and vomit (4) Bipolar 1 disorder: (5) Hypertension: (6) Hyperlipidemia: (7) Chronic anticoagulation: (8) Type 2 diabetes mellitus: Qualifiers: Diabetes mellitus complication status: without complication Diabetes mellitus medical terminologist insulin use: with medical terminologist use Qualified Code(s): E11.9 - Type 2 diabetes mellitus without complications; Z79.4 - terminal operations supervisor (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 Monitor blood pressures. Keep mean artery pressure 65 mmHg. Follow-up blood culture, urine culture. Negative MRSA swab, appreciate procalcitonin, urine Legionella, bacterial antigen. Switch from IV ceftriaxone to Zosyn. Continue with azithromycin to finish a 3- day course for atypical coverage. Acute hypoxic respiratory failure: Most likely in setting of left lower lobe pneumonia. High concerns for aspiration pneumonia. Keep n.p.o. for now. Speech evaluation and modified barium swallow. Advance diet accordingly. Aggressive pulmonary toilet with I-S, Acapella and chest vest. Nebulization with Pulmicort twice daily, ipratropium, Xopenex every 6 hour, Mucomyst every 6 hour. Oxygen supplementation keeping saturation over 8890%. Can transition to heated high flow if needed. BiPAP nightly. Transaminitis: Persistent. Hold off on statin. Appreciate liver ultrasound. Most likely in setting of sepsis. Type 2 diabetes mellitus: A1c more than 9.8. Insulin sliding scale before meals and at bedtime. Patient is agreeable. Hold off on home dose of Mounjaro. Depending on the insulin requirement in next 24 hours we will plan to add Lantus. History of pulmonary embolism: Continue with home dose of Eliquis. Continue other chronic home medications. Hypertension: Goal blood pressure less than 140/90 mmHg. Continue with home dose of losartan. Change metoprolol succinate to metoprolol tartrate 25 mg twice daily. Full code Protonix for PUD prophylaxis Eliquis will be sufficient for DVT prophylaxis Attestations 2 Medical Necessity Statement*: Continued admission required for sepsis and acute hypoxic respiratory failure in setting of left lower lobe pneumonia with concerns for aspiration pneumonitis Diagnoses Sepsis A41.9 Acute respiratory failure with hypoxia J96.01 Aspiration pneumonia of left lower lobe, unspecified aspiration pneumonia type J69.0 Pneumonia type: aspiration pneumonia Aspiration pneumonia type: unspecified Laterality: left Lung location: lower lobe of lung Bipolar 1 disorder F31.9 Hypertension I10 Hyperlipidemia E78.5 Chronic anticoagulation Z79.01 Type 2 diabetes mellitus E11.9; Z79.4 Diabetes mellitus complication status: without complication Diabetes mellitus half-way insulin use: with medical terminologist use Mild intellectual disability F70
[2024-10-24] MEDS: insulin lispro 100 unit/1 mL SUBCUT (12:03)
[2024-10-24 17:20] LABS: Glucose Point of Care 130 mg/dL (70-110)
--- NOTE | 2024-10-24 18:40 | PC.NURSE ---
Provider was notified when the barium swallow was finished and ordered to keep patient NPO except sips, chips, and meds. Provider was also told that patient is very upset that he is not allowed to eat now. Provider is keeping patient NPO due to oxygen requirements.
[2024-10-24 20:23] LABS: Glucose Point of Care 112 mg/dL (70-110)
[2024-10-24] MEDS: metoprolol tartrate 25 mg Tablet PO (20:50)
[2024-10-24] MEDS: divalproex ER 500 mg Tablet (24H) 2000 MG PO (20:50)
[2024-10-24] MEDS: AZITHROMYCIN ADD-Vantage 500 MG in 0.9% NaCl ADD-Vantage 250 ML 250 MG IV (22:54)
[2024-10-24] MEDS: cefTRIAXone 1,000 mg SDV 1000 MG IVP (22:56)
[2024-10-25] VITALS (23 sets, daily range): BP systolic 106–134; BP diastolic 62–88; PULSE 84–113; RESP 16–30; TEMP 36.7–36.9; O2SAT 88–96
[2024-10-25] MEDS: levalbuterol 0.63 mg/3 mL Neb INHALATION ×4 (02:55→21:01)
[2024-10-25] MEDS: ipratropium 0.5 mg/2.5 mL Neb INHALATION ×4 (02:55→21:01)
[2024-10-25] MEDS: acetylcysteine 200 mg/mL SDV 4 mL 100 MG INHALATION ×4 (02:55→21:00)
[2024-10-25] MEDS: pantoprazole 40 mg SDV IVP (05:18)
[2024-10-25] MEDS: venlafaxine ER (24HR) 150 mg Capsule 300 MG PO (05:19)
[2024-10-25] MEDS: acetaminophen 325 mg Tablet 650 MG PO (05:19)
[2024-10-25 06:25] LABS: Glucose Point of Care 128 mg/dL (70-110)
[2024-10-25] MEDS: ARIPiprazole 10 mg Tablet 15 MG PO ×2 (08:15→16:49)
[2024-10-25] MEDS: gabapentin 300 mg Capsule PO ×2 (08:15→16:49)
[2024-10-25] MEDS: diazePAM 5 mg Tablet PO ×3 (08:15→21:23)
[2024-10-25] MEDS: apixaban 5 mg Tablet PO ×2 (08:16→16:49)
[2024-10-25] MEDS: losartan 50 mg Tablet PO (08:16)
[2024-10-25] MEDS: metoprolol tartrate 25 mg Tablet PO ×2 (08:16→21:24)
[2024-10-25] MEDS: aspirin 81 mg EC Tablet PO (08:16)
[2024-10-25] MEDS: budesonide 0.5 mg/2 mL Neb INHALATION ×2 (08:26→21:01)
[2024-10-25 10:26] LABS: ABG PCO2 51.8 mmHg (35-45); ABG PH Result 7.43 (7.35-7.45); Alveolar-Arterial Oxygen Gradi 40.7 mmHg (5-10); Arterial Blood Gas Hematocrit 35.3 % (42-52); Base Excess ABG 8.9 mmol/L (-2.0-2.0); Blood Gas Allen Test Pos; Blood Gas Operator Identificat WALCI; Blood Gas Sample Site Radial, right; Blood Gas Sample Type Arterial; Carboxyhemoglobin 1.2 %THgb (0.4-20.1); HCO3 ABG 34.6 mmol/L (22-26); HGB O2 Sat 85.6 % (95-100); Ionized Calcium Level - ABG 1.2 mmol/L (1.1-1.4); Methemoglobin 0.3 % (0.4-1.5); Oxygen Device NC; PO2 FiO2 Ratio Arterial Blood 88; Potassium Level - ABG 3.9 mmol/L (3.5-5.0); Total Hemoglobin 11.5 g/dL (14-18)
[2024-10-25 10:40] LABS: Alanine Aminotransferase 151 U/L (0-41); Albumin Level 2.6 g/dL (3.5-5.2); Alkaline Phosphatase 170 U/L (40-130); Anion Gap 11.9 (5-19); Aspartate Amino Transferase 81 U/L (0-40); Blood Urea Nitrogen 17 mg/dL (6-20); Calcium 9.2 mg/dL (8.5-10.5); Carbon Dioxide 32 mmol/L (22-29); Chloride 98 mmol/L (98-107); Creatinine Clr Calc Pharmacy 180.4442; Globulin 3.6 g/dL (1.3-4.6); Glucose 123 mg/dL (65-115); Osmolality Calculated 289 mOsm/kg (285-295); Potassium 3.9 mmol/L (3.5-5.1); Sodium 138 mmol/L (136-145); Total Bilirubin 0.4 mg/dL (0.15-1.2); Total Protein 6.2 g/dL (6.6-8.7)
[2024-10-25 10:52] LABS: Glucose Point of Care 112 mg/dL (70-110)
[2024-10-25 11:16] LABS: Basophils % 0.5 %; Eosinophils % 0.3 %; Hematocrit 35.1 % (37-53); Lymphocytes # 1.2 10^3/uL (0.8-4.8); Lymphocytes % 16.8 %; Mean Corpuscular Hemoglobin 30.7 pg (27-33); Mean Corpuscular Volume 93.9 fl (82-101); Mean Platelet Volume 10.6 fL (7.4-10.4); Monocytes # 0.5 10^3/uL (0.2-0.9); Monocytes % 6.5 %; Neutrophils # 5.48 10^3/uL (1.8-7.7); Neutrophils % 74.3 %; Nucleated Red Blood Cells % 0 %; Platelet Count 282 10^3/cmm (157-399); Red Blood Count 3.74 10^6/uL (3.85-5.65); Red Cell Distribution Width 14.7 % (12.1-15.1); White Blood Count 7.38 10^3/uL (3.29-11.43)
[2024-10-25 11:19] LABS: Mean Corpuscular HGB Conc 32.8 g/dL (30-55)
--- NOTE | 2024-10-25 15:56 | P.PN_ITS ---
Subjective 2 Subjective: Currently on heated high flow with FiO2 of 60%, at 40 L/min. Modified barium swallow was negative for any laryngeal penetration or aspiration. Cleared to start regular diet since then with small bites and sips. Has intermittent bleeding from the left nostril Medications: Reviewed: Yes Medication Review Details: Overnight patient had shortness of breath after which was placed on BiPAP. Today morning on transition to nasal cannula saturations down to 86%. Currently on 12 L of nasal cannula as per patient's request saturating 88 to 90%. Plan to transition to heated high flow. Patient [place]arling comfortably in bed. Vitals/I&O/Wt Last Vital Signs Temp 98.5 F 10/25/24 12:00 Pulse 92 10/25/24 15:23 Resp 16 10/25/24 13:23 BP 114/75 10/25/24 12:00 Pulse Ox 93 10/25/24 15:23 O2 Del Method Heated High Flow 10/25/24 13:23 O2 Flow Rate 40 10/25/24 15:23 FiO2 60 10/25/24 15:23 10/25/24 10/25/24 10/25/24 06:59 14:59 22:59 Intake Total 250 / 590 120 / 120 Output Total 500 / 1875 Balance -250 / -1285 120 / 120 Weight last 48 hrs Weight 119.476 kg Weight 115.984 kg Physical Exam 2 Narrative: General: No acute distress, AO x3, heated high flow nasal cannula in place HEENT: PERRLA, pupils bilaterally equal and reactive, pallors not present Chest: Normal vesicular breath sounds, no added sounds, equal good air entry bilaterally CVS: S1-S2 regular, no murmurs, no tachycardia, no gallops, no rubs Abdomen: Soft, nontender, no organomegaly, bowel sounds present Neuro: No focal deficits, no facial deformity, AO x3, power 5/5 in all limbs Data 10/25/24 09:55 10/25/24 09:55 A&P Assessment and plan (1) Sepsis: (2) Acute respiratory failure with hypoxia: (3) Pneumonia: Qualifiers: Aspiration pneumonia type: unspecified Laterality: left Lung location: lower lobe of lung Pneumonia type: aspiration pneumonia Qualified Code(s): J 69.0 - Pneumonitis due to inhalation of food and vomit (4) Bipolar 1 disorder: (5) Hypertension: (6) Hyperlipidemia: (7) Chronic anticoagulation: (8) Type 2 diabetes mellitus: Qualifiers: Diabetes mellitus complication status: without complication Diabetes mellitus technician terminal and repeater insulin use: with retirement use Qualified Code(s): E11.9 - Type 2 diabetes mellitus without complications; Z79.4 - extermination inspector (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 Monitor blood pressures. Keep mean artery pressure 65 mmHg. Follow-up blood culture, urine culture. Negative MRSA swab, appreciate procalcitonin, urine Legionella, bacterial antigen. Switch from IV ceftriaxone to Zosyn. Continue with azithromycin to finish a 3- day course for atypical coverage. Acute hypoxic respiratory failure: Most likely in setting of left lower lobe pneumonia. High concerns for aspiration pneumonia. Keep n.p.o. for now. Speech evaluation and modified barium swallow. Advance diet accordingly. Aggressive pulmonary toilet with I-S, Acapella and chest vest. Nebulization with Pulmicort twice daily, ipratropium, Xopenex every 6 hour, Mucomyst every 6 hour. Oxygen supplementation keeping saturation over 8890%. Can transition to heated high flow if needed. BiPAP nightly. Transaminitis: Persistent. Hold off on statin. Appreciate liver ultrasound. Most likely in setting of sepsis. Type 2 diabetes mellitus: A1c more than 9.8. Insulin sliding scale before meals and at bedtime. Patient is agreeable. Hold off on home dose of Mounjaro. Depending on the insulin requirement in next 24 hours we will plan to add Lantus. History of pulmonary embolism: Continue with home dose of Eliquis. Continue other chronic home medications. Hypertension: Goal blood pressure less than 140/90 mmHg. Continue with home dose of losartan. Change metoprolol succinate to metoprolol tartrate 25 mg twice daily. Full code Protonix for PUD prophylaxis Eliquis will be sufficient for DVT prophylaxis Plan for today 10/25/2024. Continue IV antibiotics. Continues to be on heated high flow. Attempts to weaning oxygen continued. Modified barium swallow obtained, no tuan laryngeal penetration noted. He has been recommended to continue with regular diet and regular liquids. Recommended to alternate liquids and solids with small bites and sips, extra swallows. He is instructed to only eat in an upright position and stay upright for 20 to 30 minutes after meals. He is noted to have nosebleeding, likely from trauma from the high flow nasal cannula. Start [place] nasal spray every 6 hours. Additionally added as needed cough Nasal bleeding. Continue Eliquis for now, would need to reconsider if major bleeding develops. Attestations 2 Medical Necessity Statement*: Continue IV antibiotics, advance meals, monitor for any recurrent episodes of aspiration, nasal bleeding. Coding Level of Care Code Acute Code for Chg Fwd Moderate MDM includes number and complexity of problems actively addressed during encounter, amount and/or complexity of data reviewed/ordered and described risk of complication, morbidity or mortality of management as documented Diagnoses Sepsis A41.9 Acute respiratory failure with hypoxia J96.01 Aspiration pneumonia of left lower lobe, unspecified aspiration pneumonia type J69.0 Aspiration pneumonia type: unspecified Laterality: left Lung location: lower lobe of lung Pneumonia type: aspiration pneumonia Bipolar 1 disorder F31.9 Hypertension I10 Hyperlipidemia E78.5 Chronic anticoagulation Z79.01 Type 2 diabetes mellitus E11.9; Z79.4 Diabetes mellitus complication status: without complication Diabetes mellitus technician terminal and repeater insulin use: with technician terminal and repeater use Mild intellectual disability F70
[2024-10-25] MEDS: saline nasal spray 44mL Btl 1 SPRAY NASAL ×2 (16:48→22:34)
[2024-10-25 17:02] LABS: Glucose Point of Care 217 mg/dL (70-110)
[2024-10-25] MEDS: insulin lispro 100 unit/1 mL SUBCUT ×2 (17:21→21:28)
[2024-10-25 21:01] LABS: Glucose Point of Care 198 mg/dL (70-110)
[2024-10-25] MEDS: divalproex ER 500 mg Tablet (24H) 2000 MG PO (21:22)
[2024-10-25] MEDS: AZITHROMYCIN ADD-Vantage 500 MG in 0.9% NaCl ADD-Vantage 250 ML 250 MG IV (22:34)
[2024-10-25] MEDS: cefTRIAXone 1,000 mg SDV 1000 MG IVP (22:35)
[2024-10-26] VITALS (20 sets, daily range): BP systolic 93–147; BP diastolic 59–94; PULSE 72–108; RESP 10–22; TEMP 36.3–37.2; O2SAT 89–97
[2024-10-26] MEDS: levalbuterol 0.63 mg/3 mL Neb INHALATION ×4 (02:53→21:58)
[2024-10-26] MEDS: ipratropium 0.5 mg/2.5 mL Neb INHALATION ×4 (02:53→21:58)
[2024-10-26] MEDS: acetylcysteine 200 mg/mL SDV 4 mL 100 MG INHALATION ×4 (02:53→21:57)
[2024-10-26] MEDS: saline nasal spray 44mL Btl 1 SPRAY NASAL ×4 (04:32→22:24)
[2024-10-26] MEDS: pantoprazole 40 mg SDV IVP (05:15)
[2024-10-26] MEDS: venlafaxine ER (24HR) 150 mg Capsule 300 MG PO (05:16)
[2024-10-26 06:33] LABS: Glucose Point of Care 178 mg/dL (70-110)
[2024-10-26 07:07] LABS: Alanine Aminotransferase 211 U/L (0-41); Albumin Level 2.6 g/dL (3.5-5.2); Alkaline Phosphatase 219 U/L (40-130); Anion Gap 10.1 (5-19); Aspartate Amino Transferase 185 U/L (0-40); Blood Urea Nitrogen 12 mg/dL (6-20); Carbon Dioxide 35 mmol/L (22-29); Chloride 98 mmol/L (98-107); Globulin 3.3 g/dL (1.3-4.6); Glomerular Filtration Rate 145.7 mL/min (90-130); Glucose 173 mg/dL (65-115); Osmolality Calculated 292 mOsm/kg (285-295); Potassium 4.1 mmol/L (3.5-5.1); Sodium 139 mmol/L (136-145); Total Bilirubin 0.3 mg/dL (0.15-1.2); Total Protein 5.9 g/dL (6.6-8.7)
[2024-10-26 07:18] LABS: Creatinine Clr Calc Pharmacy 209.3615
[2024-10-26 07:21] LABS: Magnesium 2.1 mg/dL (1.7-2.3)
[2024-10-26 07:36] LABS: Basophils % 0.2 %; Eosinophils # 0.1 10^3/uL (0.0-0.8); Eosinophils % 1.5 %; Hematocrit 34.4 % (37-53); Lymphocytes # 1.5 10^3/uL (0.8-4.8); Lymphocytes % 24.4 %; Mean Corpuscular HGB Conc 31.7 g/dL (30-55); Mean Corpuscular Volume 94.8 fl (82-101); Mean Platelet Volume 10.3 fL (7.4-10.4); Monocytes # 0.6 10^3/uL (0.2-0.9); Monocytes % 9.1 %; Neutrophils # 3.93 10^3/uL (1.8-7.7); Neutrophils % 63.7 %; Nucleated Red Blood Cells % 0 %; Platelet Count 316 10^3/cmm (157-399); Red Blood Count 3.63 10^6/uL (3.85-5.65); Red Cell Distribution Width 14.6 % (12.1-15.1); White Blood Count 6.16 10^3/uL (3.29-11.43)
[2024-10-26] MEDS: budesonide 0.5 mg/2 mL Neb INHALATION ×2 (07:51→21:58)
[2024-10-26] MEDS: metoprolol tartrate 25 mg Tablet PO ×2 (08:36→20:19)
[2024-10-26] MEDS: insulin lispro 100 unit/1 mL SUBCUT ×3 (08:36→17:41)
[2024-10-26] MEDS: losartan 50 mg Tablet PO (08:37)
[2024-10-26] MEDS: gabapentin 300 mg Capsule PO ×2 (08:37→17:42)
[2024-10-26] MEDS: ARIPiprazole 10 mg Tablet 15 MG PO ×2 (08:37→17:42)
[2024-10-26] MEDS: apixaban 5 mg Tablet PO ×2 (08:37→17:42)
[2024-10-26] MEDS: diazePAM 5 mg Tablet PO ×3 (08:37→20:20)
[2024-10-26] MEDS: aspirin 81 mg EC Tablet PO (08:38)
[2024-10-26 10:52] LABS: Glucose Point of Care 233 mg/dL (70-110)
[2024-10-26] MEDS: FUROsemide 40 mg Tablet PO (11:35)
--- NOTE | 2024-10-26 14:30 | P.PN_ITS ---
Subjective 2 Subjective: No acute events overnight. Patient denies any nausea, vomiting, headache. Down to 6 to 7 L of oxygen supplementation with high flow nasal cannula to maintain saturation over 90%. States he is feeling better. Asking if he can be discharged before Julio. Medications: Reviewed: Yes Medication Review Details: Overnight patient had shortness of breath after which was placed on BiPAP. Today morning on transition to nasal cannula saturations down to 86%. Currently on 12 L of nasal cannula as per patient's request saturating 88 to 90%. Plan to transition to heated high flow. Patient [place]ar[place] comfortably in bed. Vitals/I&O/Wt Last Vital Signs Temp 98.2 F 10/26/24 12:00 Pulse 87 10/26/24 14:01 Resp 16 10/26/24 14:01 BP 125/79 10/26/24 12:00 Pulse Ox 94 10/26/24 14:01 O2 Del Method High Flow Nasal Cannula 10/26/24 14:01 O2 Flow Rate 7 10/26/24 14:01 FiO2 45 10/26/24 02:56 10/25/24 10/26/24 10/26/24 22:59 06:59 14:59 Intake Total 240 / 360 250 / 610 360 / 360 Output Total 500 / 500 Balance 240 / 360 -250 / 110 360 / 360 Weight last 48 hrs Weight 118.161 kg Weight 119.476 kg Physical Exam 2 Narrative: General: No acute distress, AO 3, on nasal cannula, forgetful HEENT: PERRLA, pupils bilaterally equal and reactive Chest: Bilateral bronchial breath sounds all over lung perea, coarse crackles present in left lower zone with rhonchi CVS: S1-S2 regular, no murmurs, no tachycardia, no gallops, no rubs Abdomen: Soft, nontender, no organomegaly, bowel sounds present Neuro: No focal deficits, no facial deformity, AO x3, power 5/5 in all limbs Data 10/26/24 06:25 10/26/24 06:25 A&P Assessment and plan (1) Acute respiratory failure with hypoxia: (2) Sepsis: (3) Pneumonia: Qualifiers: Aspiration pneumonia type: unspecified Laterality: left Lung location: lower lobe of lung Pneumonia type: aspiration pneumonia Qualified Code(s): J 69.0 - Pneumonitis due to inhalation of food and vomit (4) Bipolar 1 disorder: (5) Hypertension: (6) Hyperlipidemia: (7) Chronic anticoagulation: (8) Type 2 diabetes mellitus: Qualifiers: Diabetes mellitus complication status: without complication Diabetes mellitus ferry terminal supervisor insulin use: with fci use Qualified Code(s): E11.9 - Type 2 diabetes mellitus without complications; Z79.4 - half-way (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 Monitor blood pressures. Keep mean artery pressure 65 mmHg. Follow-up blood culture, urine culture. Negative MRSA swab, appreciate procalcitonin, urine Legionella, bacterial antigen. Switch from IV ceftriaxone to Zosyn. Continue with azithromycin to finish a 3- day course for atypical coverage. Acute hypoxic respiratory failure: Most likely in setting of left lower lobe pneumonia. High concerns for aspiration pneumonia. Keep n.p.o. for now. Speech evaluation and modified barium swallow. Advance diet accordingly. Aggressive pulmonary toilet with I-S, Acapella and chest vest. Nebulization with Pulmicort twice daily, ipratropium, Xopenex every 6 hour, Mucomyst every 6 hour. Oxygen supplementation keeping saturation over 8890%. Can transition to heated high flow if needed. BiPAP nightly. Transaminitis: Persistent. Hold off on statin. Appreciate liver ultrasound. Most likely in setting of sepsis. Type 2 diabetes mellitus: A1c more than 9.8. Insulin sliding scale before meals and at bedtime. Patient is agreeable. Hold off on home dose of Mounjaro. Depending on the insulin requirement in next 24 hours we will plan to add Lantus. History of pulmonary embolism: Continue with home dose of Eliquis. Continue other chronic home medications. Hypertension: Goal blood pressure less than 140/90 mmHg. Continue with home dose of losartan. Change metoprolol succinate to metoprolol tartrate 25 mg twice daily. Full code Protonix for PUD prophylaxis Eliquis will be sufficient for DVT prophylaxis Plan for the day: Oxygen supplementation keeping saturation 90%. Wean accordingly. Appreciate modified barium swallow and speech evaluation. Continue with regular carb consistent diet. Patient still requiring high oxygen supplementation. Continue with aggressive pulmonary toilet with I-S, Acapella, chest vest. Nebulization treatment with Pulmicort twice daily, ipratropium, Xopenex every 6 hour along with Mucomyst. Repeat chest x-ray as patient is still requiring high oxygen supplementation. Follow-up blood culture. Sputum culture still not collected. Continue with treatment for community-acquired pneumonia with IV ceftriaxone. Stop azithromycin as patient has finished a 3-day course of atypical coverage. No leukocytosis. Last echocardiogram December 28 showed an EF of 60% and grade 1 diastolic dysfunction. Oral Lasix 40 mg one-time. Continue with full dose of Eliquis 5 mg twice daily for now. Takes possibly with concerns for PE in the past. Reviewed last CTA from 2022 negative for PE. Will confirm with the alf for reason of Eliquis for now. Goal blood pressure less than 140/90 mmHg. Continue with home dose of losartan. Continue with metoprolol 25 mg twice daily. Uptitrate as per goal blood pressure. Persistent transaminitis. Could be in setting of mild congestive hepatomegaly. Lasix as above. Ultrasound abdomen before negative for acute abnormality. Check hepatitis panel, HIV. Attestations 2 Medical Necessity Statement*: Requires further hospitalization for management of hypoxic respiratory failure as patient is requiring high oxygen supplementation in setting of left lower lobe pneumonia Diagnoses Acute respiratory failure with hypoxia J96.01 Sepsis A41.9 Aspiration pneumonia of left lower lobe, unspecified aspiration pneumonia type J69.0 Aspiration pneumonia type: unspecified Laterality: left Lung location: lower lobe of lung Pneumonia type: aspiration pneumonia Bipolar 1 disorder F31.9 Hypertension I10 Hyperlipidemia E78.5 Chronic anticoagulation Z79.01 Type 2 diabetes mellitus E11.9; Z79.4 Diabetes mellitus complication status: without complication Diabetes mellitus ferry terminal supervisor insulin use: with fci use Mild intellectual disability F70
--- NOTE | 2024-10-26 14:55 | XRR_ITS ---
PROCEDURE INFORMATION: Exam: XR Chest Exam date and time: 10/26/2024 5:15 PM Age: 44 years old Clinical indication: Other: Respiratory failure; Additional info: Resp failure TECHNIQUE: Imaging protocol: Radiologic exam of the chest. Views: 1 view. COMPARISON: 1. CT chest wo con [id number] 10/22/2024 10:26 PM 2. CR (CHEST, ) 10/22/2024 9:18 PM 3. CR XR chest 1V portable [id number] 09/03/2024 11:07 PM FINDINGS: Lungs: Bilateral perihilar airspace opacities which are greater left than right increased from comparison radiographic imaging on 10/22/2024. Pleural spaces: Unremarkable. No pleural effusion. No pneumothorax. Heart/Mediastinum: Mild cardiac enlargement. Bones/joints: Unremarkable. XR/XR chest 1V portable [id number] IMPRESSION: Increased airspace opacities in the lungs with central predominance. Pulmonary edema favored. Pneumonia not excluded.
[2024-10-26] MEDS: OLANZapine 5 mg ODT PO (16:09)
--- NOTE | 2024-10-26 16:13 | PC.NURSE ---
PRN Medication: Pt given PRN Zyprexa for c/o high anxiety.
[2024-10-26 16:40] LABS: HIV 1 & 2 Antibody Non-Reactive (Non-Reactiv); HIV 1 & 2 Antigen Non-Reactive (Non-Reactiv)
[2024-10-26 16:54] LABS: Hepatitis B Core AB, Total Non-Reactive (Nonreactive); Hepatitis B Surface AB 16.2 (11.5-1000); Hepatitis B Surface Antigen Non-Reactive (Nonreactive); Hepatitis C Virus Antibody Non-Reactive (Nonreactive)
[2024-10-26 17:27] LABS: Hepatitis A Antibody IgM Non-Reactive (Nonreactive)
[2024-10-26 17:29] LABS: Glucose Point of Care 279 mg/dL (70-110)
[2024-10-26] MEDS: divalproex ER 500 mg Tablet (24H) 2000 MG PO (20:19)
[2024-10-26 20:42] LABS: Glucose Point of Care 138 mg/dL (70-110)
[2024-10-26] MEDS: cefTRIAXone 1,000 mg SDV 1000 MG IVP (22:24)
[2024-10-27] VITALS (13 sets, daily range): BP systolic 107–149; BP diastolic 64–97; PULSE 86–105; RESP 14–22; TEMP 36.6–36.7; O2SAT 86–98
[2024-10-27] MEDS: acetylcysteine 200 mg/mL SDV 4 mL 100 MG INHALATION ×3 (02:31→22:37)
[2024-10-27] MEDS: ipratropium 0.5 mg/2.5 mL Neb INHALATION ×4 (02:31→22:36)
[2024-10-27] MEDS: levalbuterol 0.63 mg/3 mL Neb INHALATION ×4 (02:31→22:37)
--- NOTE | 2024-10-27 02:54 | PC.NURSE ---
IV access: Pt pulled out IV around 2330. This nurse and another nurse attempted x4 to start a new IV, but were not successful due to poor peripheral access. Dr. Archibald notified and stated it was okay to switch pt's Protonix to PO instead of IVP.
[2024-10-27] MEDS: saline nasal spray 44mL Btl 1 SPRAY NASAL ×4 (05:05→22:03)
[2024-10-27] MEDS: pantoprazole DR 40 mg Tablet PO (05:05)
[2024-10-27] MEDS: venlafaxine ER (24HR) 150 mg Capsule 300 MG PO (05:05)
[2024-10-27 05:54] LABS: Alanine Aminotransferase 244 U/L (0-41); Albumin Level 2.6 g/dL (3.5-5.2); Alkaline Phosphatase 274 U/L (40-130); Aspartate Amino Transferase 198 U/L (0-40); Blood Urea Nitrogen 8 mg/dL (6-20); Calcium 8.7 mg/dL (8.5-10.5); Carbon Dioxide 33 mmol/L (22-29); Chloride 100 mmol/L (98-107); Creatinine Clr Calc Pharmacy 249.5101; Globulin 3.3 g/dL (1.3-4.6); Glomerular Filtration Rate 179.8 mL/min (90-130); Glucose 169 mg/dL (65-115); Magnesium 1.8 mg/dL (1.7-2.3); Osmolality Calculated 298 mOsm/kg (285-295); Sodium 143 mmol/L (136-145); Total Bilirubin 0.3 mg/dL (0.15-1.2); Total Protein 5.9 g/dL (6.6-8.7)
[2024-10-27 06:48] LABS: Glucose Point of Care 209 mg/dL (70-110)
[2024-10-27 07:18] LABS: Basophils % 0.3 %; Eosinophils # 0.1 10^3/uL (0.0-0.8); Eosinophils % 1.5 %; Hematocrit 35.9 % (37-53); Lymphocytes # 1.5 10^3/uL (0.8-4.8); Lymphocytes % 23.1 %; Mean Corpuscular HGB Conc 32.9 g/dL (30-55); Mean Corpuscular Hemoglobin 31.5 pg (27-33); Mean Corpuscular Volume 95.7 fl (82-101); Mean Platelet Volume 11.3 fL (7.4-10.4); Monocytes # 0.6 10^3/uL (0.2-0.9); Monocytes % 8.9 %; Neutrophils # 4.24 10^3/uL (1.8-7.7); Neutrophils % 64.7 %; Nucleated Red Blood Cells % 0 %; Platelet Count 392 10^3/cmm (157-399); Red Blood Count 3.75 10^6/uL (3.85-5.65); White Blood Count 6.55 10^3/uL (3.29-11.43)
[2024-10-27] MEDS: budesonide 0.5 mg/2 mL Neb INHALATION ×2 (07:42→22:37)
[2024-10-27] MEDS: apixaban 5 mg Tablet PO ×2 (08:25→18:21)
[2024-10-27] MEDS: ARIPiprazole 10 mg Tablet 15 MG PO ×2 (08:25→18:22)
[2024-10-27] MEDS: gabapentin 300 mg Capsule PO ×2 (08:25→18:22)
[2024-10-27] MEDS: insulin lispro 100 unit/1 mL SUBCUT ×4 (08:25→20:30)
[2024-10-27] MEDS: diazePAM 5 mg Tablet PO ×3 (08:25→20:31)
[2024-10-27] MEDS: metoprolol tartrate 25 mg Tablet PO ×2 (08:26→20:31)
[2024-10-27] MEDS: aspirin 81 mg EC Tablet PO (08:26)
[2024-10-27] MEDS: FUROsemide 10 mg/mL SDV 4mL 40 MG IVP (11:04)
[2024-10-27 11:14] LABS: Glucose Point of Care 282 mg/dL (70-110)
--- NOTE | 2024-10-27 15:52 | PM.PN ---
Subjective Subjective: No acute events overnight. Today morning patient seen sitting up in bed. States he is been working with I-S and Acapella every 15?20 minutes. Oxygen supplementation down to 5 to 6 L. Saturating around 88%. States he is feeling better otherwise. Medications: Reviewed: Yes Vitals/I&O/Wt Last Vital Signs Temp 98.1 F 10/27/24 11:51 Pulse 101 H 10/27/24 15:36 Resp 17 10/27/24 15:36 BP 130/83 10/27/24 15:36 Pulse Ox 88 L 10/27/24 15:36 O2 Del Method Nasal Cannula 10/27/24 15:36 O2 Flow Rate 4 10/27/24 14:00 FiO2 45 10/26/24 22:18 10/27/24 10/27/24 10/27/24 06:59 14:59 22:59 Intake Total 220 / 2080 480 / 480 Output Total 550 / 1850 3000 / 3000 Balance -330 / 230 -2520 / -2520 Weight last 48 hrs Weight 116.528 kg Weight 118.161 kg Physical Exam Narrative: General: No acute distress, AO 3, on nasal cannula, forgetful HEENT: PERRLA, pupils bilaterally equal and reactive Chest: Bilateral bronchial breath sounds all over lung perea, coarse crackles present in left lower zone with rhonchi CVS: S1-S2 regular, no murmurs, no tachycardia, no gallops, no rubs Abdomen: Soft, nontender, no organomegaly, bowel sounds present Neuro: No focal deficits, no facial deformity, AO x3, power 5/5 in all limbs Data 10/27/24 05:02 10/27/24 05:02 A&P Assessment and plan (1) Acute respiratory failure with hypoxia: (2) Sepsis: (3) Pneumonia: Qualifiers: Aspiration pneumonia type: unspecified Laterality: left Lung location: lower lobe of lung Pneumonia type: aspiration pneumonia Qualified Code(s): J69.0 - Pneumonitis due to inhalation of food and vomit (4) Bipolar 1 disorder: (5) Hypertension: (6) Hyperlipidemia: (7) Chronic anticoagulation: (8) Type 2 diabetes mellitus: Qualifiers: Diabetes mellitus complication status: without complication Diabetes mellitus emt intermediate insulin use: with alf use Qualified Code(s): E11.9 - Type 2 diabetes mellitus without complications; Z79.4 - emt intermediate (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 Monitor blood pressures. Keep mean artery pressure 65 mmHg. Follow-up blood culture, urine culture. Negative MRSA swab, appreciate procalcitonin, urine Legionella, bacterial antigen. Continue with IV ceftriaxone. Continue with azithromycin to finish a 3-day course for atypical coverage. Acute hypoxic respiratory failure: Most likely in setting of left lower lobe pneumonia. High concerns for aspiration pneumonia. Patient usually drinking a soda while laying in bed mostly on left lateral position Diet advance as per speech evaluation. Speech evaluation and modified barium swallow. Advance diet accordingly. Aggressive pulmonary toilet with I-S, Acapella and chest vest. Nebulization with Pulmicort twice daily, ipratropium, Xopenex every 6 hour, Mucomyst every 6 hour. Oxygen supplementation keeping saturation over 8890%. Can transition to heated high flow if needed. BiPAP nightly. Transaminitis: Persistent. Hold off on statin. Appreciate liver ultrasound. Most likely in setting of sepsis. Type 2 diabetes mellitus: A1c more than 9.8. Insulin sliding scale before meals and at bedtime. Patient is agreeable. Hold off on home dose of Mounjaro. Depending on the insulin requirement in next 24 hours we will plan to add Lantus. History of pulmonary embolism: Continue with home dose of Eliquis. Continue other chronic home medications. Hypertension: Goal blood pressure less than 140/90 mmHg. Continue with home dose of losartan. Change metoprolol succinate to metoprolol tartrate 25 mg twice daily. Full code Protonix for PUD prophylaxis Eliquis will be sufficient for DVT prophylaxis Plan for the day: Appreciate repeat chest x-ray from today morning. Concern for mild fluid overload. IV Lasix 40 mg one-time. Wean off oxygen supplementation keeping saturation over 88%. Continue with aggressive pulmonary toilet. Continue with IV ceftriaxone to finish a 5-day course. Last dose on 10/27. Continue with nebulization treatment along with Mucomyst every 6 hour. Discussed again in detail with the patient about aspiration precautions specially when he is eating or drinking while laying down in bed. Attestations Medical Necessity Statement*: Requires further hospitalization for management of acute hypoxic respiratory failure in setting of left lower lobe pneumonia with concerns for aspiration as oxygen supplementation are weaned down. Diagnoses Acute respiratory failure with hypoxia J96.01 Sepsis A41.9 Aspiration pneumonia of left lower lobe, unspecified aspiration pneumonia type J69.0 Aspiration pneumonia type: unspecified Laterality: left Lung location: lower lobe of lung Pneumonia type: aspiration pneumonia Bipolar 1 disorder F31.9 Hypertension I10 Hyperlipidemia E78.5 Chronic anticoagulation Z79.01 Type 2 diabetes mellitus E11.9; Z79.4 Diabetes mellitus complication status: without complication Diabetes mellitus emt intermediate insulin use: with emt intermediate use Mild intellectual disability F70
[2024-10-27 16:38] LABS: Glucose Point of Care 225 mg/dL (70-110)
[2024-10-27 20:27] LABS: Glucose Point of Care 217 mg/dL (70-110)
[2024-10-27] MEDS: divalproex ER 500 mg Tablet (24H) 2000 MG PO (20:31)
[2024-10-27] MEDS: cefTRIAXone 1,000 mg SDV 1000 MG IVP (22:03)
[2024-10-28] VITALS (11 sets, daily range): BP systolic 124–135; BP diastolic 77–84; PULSE 94–112; RESP 14–18; TEMP 36.3–36.8; O2SAT 89–98
[2024-10-28] MEDS: ipratropium 0.5 mg/2.5 mL Neb INHALATION ×2 (03:09→09:04)
[2024-10-28] MEDS: levalbuterol 0.63 mg/3 mL Neb INHALATION ×2 (03:09→09:05)
[2024-10-28] MEDS: acetylcysteine 200 mg/mL SDV 4 mL 100 MG INHALATION ×2 (03:09→09:05)
[2024-10-28] MEDS: saline nasal spray 44mL Btl 1 SPRAY NASAL ×2 (05:05→10:58)
[2024-10-28] MEDS: venlafaxine ER (24HR) 150 mg Capsule 300 MG PO (05:05)
[2024-10-28] MEDS: acetaminophen 325 mg Tablet 650 MG PO (05:06)
[2024-10-28] MEDS: pantoprazole DR 40 mg Tablet PO (05:06)
[2024-10-28 05:31] LABS: Alanine Aminotransferase 184 U/L (0-41); Albumin Level 2.7 g/dL (3.5-5.2); Alkaline Phosphatase 245 U/L (40-130); Aspartate Amino Transferase 82 U/L (0-40); Blood Urea Nitrogen 11 mg/dL (6-20); Calcium 8.9 mg/dL (8.5-10.5); Carbon Dioxide 35 mmol/L (22-29); Chloride 96 mmol/L (98-107); Creatinine Clr Calc Pharmacy 205.9301; Globulin 3.2 g/dL (1.3-4.6); Glomerular Filtration Rate 145.7 mL/min (90-130); Glucose 200 mg/dL (65-115); Osmolality Calculated 297 mOsm/kg (285-295); Sodium 141 mmol/L (136-145); Total Bilirubin 0.3 mg/dL (0.15-1.2); Total Protein 5.9 g/dL (6.6-8.7)
[2024-10-28 05:36] LABS: Magnesium 1.7 mg/dL (1.7-2.3)
[2024-10-28 05:39] LABS: Basophils % 0.6 %; Eosinophils # 0.1 10^3/uL (0.0-0.8); Eosinophils % 1.8 %; Hematocrit 32.6 % (37-53); Lymphocytes # 1.8 10^3/uL (0.8-4.8); Lymphocytes % 26.3 %; Mean Corpuscular HGB Conc 36.5 g/dL (30-55); Mean Corpuscular Hemoglobin 36.1 pg (27-33); Mean Corpuscular Volume 98.8 fl (82-101); Mean Platelet Volume 10.1 fL (7.4-10.4); Monocytes # 0.7 10^3/uL (0.2-0.9); Monocytes % 10.7 %; Neutrophils # 3.89 10^3/uL (1.8-7.7); Neutrophils % 58.1 %; Nucleated Red Blood Cells % 0.3 %; Platelet Count 399 10^3/cmm (157-399); Red Cell Distribution Width 19.3 % (12.1-15.1)
[2024-10-28 06:22] LABS: Glucose Point of Care 235 mg/dL (70-110)
[2024-10-28] MEDS: apixaban 5 mg Tablet PO (08:10)
[2024-10-28] MEDS: diazePAM 5 mg Tablet PO (08:11)
[2024-10-28] MEDS: losartan 50 mg Tablet PO (08:11)
[2024-10-28] MEDS: ARIPiprazole 10 mg Tablet 15 MG PO (08:11)
[2024-10-28] MEDS: insulin lispro 100 unit/1 mL SUBCUT ×2 (08:12→11:40)
[2024-10-28] MEDS: aspirin 81 mg EC Tablet PO (08:13)
[2024-10-28] MEDS: gabapentin 300 mg Capsule PO (08:16)
[2024-10-28] MEDS: metoprolol tartrate 25 mg Tablet PO (08:21)
[2024-10-28] MEDS: budesonide 0.5 mg/2 mL Neb INHALATION (09:05)
[2024-10-28 11:19] LABS: Glucose Point of Care 316 mg/dL (70-110)
--- NOTE | 2024-10-28 12:05 | P.DS_ITS ---
Discharge Providers Date of Admission: 10/22/24 23:14 Date of Discharge: October 28, 2024 Attending Provider at Admission: Giuliano Archibald MD Attending Provider at Discharge: Brenden Ellis MD Primary Care Provider: Bautista Ruiz MD Diagnoses at Discharge Discharge Diagnosis (1) Acute respiratory failure with hypoxia: Status: Acute (2) Sepsis: Status: Acute (3) Pneumonia: Status: Acute Qualifiers: Aspiration pneumonia type: unspecified Laterality: left Lung location: lower lobe of lung Pneumonia type: aspiration pneumonia Qualified Code(s): J69.0 - Pneumonitis due to inhalation of food and vomit (4) Bipolar 1 disorder: Status: Inactive Permanent problem details: Most recent episode depressed (5) Hypertension: Status: Acute (6) Hyperlipidemia: Status: Acute (7) Chronic anticoagulation: Status: Acute (8) Type 2 diabetes mellitus: Status: Acute Qualifiers: Diabetes mellitus complication status: without complication Diabetes mellitus extermination supervisor insulin use: with extermination supervisor use Qualified Code(s): E11.9 - Type 2 diabetes mellitus without complications; Z79.4 - senior living (current) use of insulin (9) Mild intellectual disability: Status: Acute Reason for Visit Reason for Visit: HIGH BLOOD SUGAR Brief History: History as per HPI: Zaire Nassar is a 44 year old male with a past medical history of developmental delay, pulm embolism on Eliquis, type 2 diabetes mellitus, hyperlipidemia, hypertension, bipolar disorder, who presents to [facility] due to cough, subjective fevers, chills, fluctuating blood sugars, poor appetite, fatigue, malaise. Currently patient is alert to person, to place, not to time he follows all commands, reports a nonproductive cough, fatigue, malaise, subjective fevers, chills, poor appetite. Caregivers at bedside tell me that he has had fluctuating blood sugars, low blood sugars at times and now high blood sugars. No reported nausea or vomiting. Does report increased shortness of breath. No chest pain Hospital Course Hospital Course Patient was admitted to the hospital evaluation and management of hypoxic respiratory failure in setting of left lower lobe pneumonia. He was started on broad-spectrum antibiotics along with aggressive pulmonary toilet given concerns for aspiration pneumonia. He underwent modified barium swallow which was found to be normal. He symptoms are most likely in setting of aspiration as patient usually drinks his soda and water while laying down in left lateral position. Patient was educated in detail about aspiration precautions and to be sitting up and walking around for at least 35 to 40 minutes during and after his meals. By today he is down to room air and is able to maintain saturation both at rest and on ambulation. Home O2 relation with him prior to discharge. He has been discharged in medically stable condition with advise to continue with aggressive pulm toilet and incentive spirometry for next 2 weeks. Physical Exam Narrative: General: No acute distress, AO 3, forgetful HEENT: PERRLA, pupils bilaterally equal and reactive Chest: Bilateral bronchial breath sounds all over lung perea, coarse crackles present in left lower zone with rhonchi CVS: S1-S2 regular, no murmurs, no tachycardia, no gallops, no rubs Abdomen: Soft, nontender, no organomegaly, bowel sounds present Neuro: No focal deficits, no facial deformity, AO x3, power 5/5 in all limbs Discharge Data Studies Completed and Pending Completed Studies During Hospitalization Category Date Time Status CT chest wo con [id number] Stat Cat Scan 10/22/24 22:10 Completed Modified barium swallow [FL barium swallow modifd [id number] Exams 10/24/24 10:20 Completed ] Routine XR chest 1V portable [id number] Routine Exams 10/26/24 14:55 Completed XR chest 1V portable [id number] Stat Exams 10/22/24 21:05 Completed US abdomen complete* [id number] Routine Ultrasound 10/23/24 05:06 Completed Pending at discharge Category Date Time Status MAG [Magnesium] AM LABS Lab 10/29/24 04:00 Ordered Sputum Culture and Gram Stain Stat Lab 10/27/24 15:08 Results Radiology Impressions Chest CT 10/22/24 22:10 IMPRESSION: 1. Extensive left lower lobe pneumonic consolidation. Aspiration may be considered. Radiographic follow-up to resolution recommended. 2. Nondisplaced subacute oblique sternal fracture with callus formation. Abdomen Ultrasound 10/23/24 05:06 Impression: 1. Normal gallbladder. 2. Normal kidneys. No obstruction. 3. Spleen was not imaged. Modified Barium Swallow 10/24/24 10:20 IMPRESSION: No laryngeal penetration or aspiration. Please see speech therapist report also for recommendations. Chest X-Ray 10/26/24 14:55 IMPRESSION: Increased airspace opacities in the lungs with central predominance. Pulmonary edema favored. Pneumonia not excluded. Microbiology 10/27/24 15:08 Sputum - Expectorated Sputum Sputum Culture - Preliminary 10/22/24 21:40 Blood Blood Culture - Final NO GROWTH AFTER 5 DAYS 10/22/24 21:43 Blood Blood Culture - Final NO GROWTH AFTER 5 DAYS 10/22/24 21:55 Urine Kidney Bacterial Antigens - Final Laboratory Results WBC 6.70 10^3/uL (3.29-11.43) 10/28/24 04:47 RBC 3.30 10^6/uL (3.85-5.65) L 10/28/24 04:47 Hgb 11.90 g/dL (11.27-16.99) 10/28/24 04:47 Hct 32.6 % (37-53) L 10/28/24 04:47 MCV 98.8 fl (82-101) 10/28/24 04:47 MCH 36.1 pg (27-33) H D 10/28/24 04:47 MCHC 36.5 g/dL (30-55) D 10/28/24 04:47 RDW 19.3 % (12.1-15.1) H 10/28/24 04:47 Plt Count 399 10^3/cmm (157-399) 10/28/24 04:47 MPV 10.1 fL (7.4-10.4) 10/28/24 04:47 Neut % (Auto) 58.1 % 10/28/24 04:47 Lymph % (Auto) 26.3 % 10/28/24 04:47 Park % (Auto) 10.7 % 10/28/24 04:47 Eos % (Auto) 1.8 % 10/28/24 04:47 Baso % (Auto) 0.6 % 10/28/24 04:47 Neut # (Auto) 3.89 10^3/uL (1.8-7.7) 10/28/24 04:47 Lymph # (Auto) 1.8 10^3/uL (0.8-4.8) 10/28/24 04:47 Park # (Auto) 0.7 10^3/uL (0.2-0.9) 10/28/24 04:47 Eos # (Auto) 0.1 10^3/uL (0.0-0.8) 10/28/24 04:47 Baso # (Auto) 0.0 10^3/uL (0.0-0.1) 10/28/24 04:47 Nucleated RBC % (auto) 0.3 % 10/28/24 04:47 Nucleated RBCs # 0.0 /100WBC 10/28/24 04:47 Specimen Type Arterial 10/25/24 10:14 Sample Site Radial, right 10/25/24 10:14 ABG pH 7.43 (7.35-7.45) 10/25/24 10:14 ABG pCO2 51.8 mmHg (35-45) H 10/25/24 10:14 ABG pO2 52.0 mmHg (80.0-100.0) L 10/25/24 10:14 ABG PO2/FiO2 Ratio 88 10/25/24 10:14 ABG HCO3 34.6 mmol/L (22-26) H 10/25/24 10:14 ABG O2 Saturation 87.0 10/25/24 10:14 ABG Base Excess 8.9 mmol/L (-2.0-2.0) H 10/25/24 10:14 Misael Test Pos 10/25/24 10:14 A-a O2 Gradient 40.7 mmHg (5-10) H 10/25/24 10:14 Hematocrit 35.3 % (42-52) L 10/25/24 10:14 Hgb O2 Saturation 85.6 % (95-100) L 10/25/24 10:14 Carboxyhemoglobin 1.2 %THgb (0.4-20.1) 10/25/24 10:14 Methemoglobin 0.3 % (0.4-1.5) L 10/25/24 10:14 Total Hemoglobin 11.5 g/dL (14-18) L 10/25/24 10:14 Sodium 140.0 mmol/L (131-143) 10/25/24 10:14 Potassium 3.9 mmol/L (3.5-5.0) 10/25/24 10:14 Glucose 115.0 mg/dL (70-115) 10/25/24 10:14 Ionized Calcium 1.2 mmol/L (1.1-1.4) 10/25/24 10:14 O2 Delivery Device Nc 10/25/24 10:14 O2 Liters/Min 40.0 % 10/25/24 10:14 FiO2 59.0 % 10/25/24 10:14 Specimen Drawn By Satish 10/22/24 21:05 Hand Spray Operator YOKO Muse 10/25/24 10:14 Sodium 141 mmol/L (136-145) 10/28/24 04:47 Potassium 4.0 mmol/L (3.5-5.1) 10/28/24 04:47 Chloride 96 mmol/L (98-107) L 10/28/24 04:47 Carbon Dioxide 35 mmol/L (22-29) H 10/28/24 04:47 Anion Gap 14.0 (5-19) 10/28/24 04:47 BUN 11 mg/dL (6-20) 10/28/24 04:47 Creatinine 0.6 mg/dL (0.7-1.2) L 10/28/24 04:47 GFR Calculation 145.7 mL/min (90-130) H 10/28/24 04:47 Glucose 200 mg/dL (65-115) H 10/28/24 04:47 POC Glucose 316 mg/dL (70-110) H 10/28/24 10:52 Estimat Average Glucose 235 10/22/24 21:14 Hemoglobin A1c 9.8 % (4.0-6.0) H 10/22/24 21:14 Calculated Osmolality 297 mOsm/kg (285-295) H 10/28/24 04:47 Lactic Acid 2.5 mmol/L (0.5-2.2) H 10/22/24 21:14 Lactic Acid (Sepsis) 1.2 mmol/L (0.5-2.2) 10/22/24 23:53 Calcium 8.9 mg/dL (8.5-10.5) 10/28/24 04:47 Magnesium 1.7 mg/dL (1.7-2.3) 10/28/24 04:47 Iron 10 ug/dL (59-158) L 10/23/24 12:53 TIBC 185 mcg/dl 10/23/24 12:53 % Saturation 5.4 % (20-50) L 10/23/24 12:53 Unsat Iron Binding 175 ug/dL (112-347) 10/23/24 12:53 Total Bilirubin 0.3 mg/dL (0.15-1.2) 10/28/24 04:47 AST 82 U/L (0-40) H 10/28/24 04:47 ALT 184 U/L (0-41) H 10/28/24 04:47 Alkaline Phosphatase 245 U/L (40-130) H 10/28/24 04:47 C-Reactive Protein 164.4 mg/L (0.0-4.9) H 10/22/24 21:14 NT-Pro-B Natriuret Pep 69 pg/mL (0-125) 10/22/24 21:14 Total Protein 5.9 g/dL (6.6-8.7) L 10/28/24 04:47 Albumin 2.7 g/dL (3.5-5.2) L 10/28/24 04:47 Globulin 3.2 g/dL (1.3-4.6) 10/28/24 04:47 Triglycerides 171 mg/dL (0-150) H 10/22/24 21:14 Cholesterol 120 mg/dL (0-200) 10/22/24 21:14 LDL Cholesterol, Calc 50 mg/dL (50-129) 10/22/24 21:14 HDL Cholesterol 36 mg/dL (60-100) L 10/22/24 21:14 LDL/HDL Ratio 1.39 RATIO (0.00-3.22) 10/22/24 21:14 Cholesterol/HDL Ratio 3.33 mg/dL (1.0-5.00) 10/22/24 21:14 Vitamin B12 315 pg/mL (232-1245) 10/23/24 12:53 Folate 19.1 ng/mL (4.5-32.2) 10/24/24 05:57 Procalcitonin 0.11 ng/mL (0-0.5) 10/23/24 12:53 TSH 2.39 uIU/mL (0.27-4.20) 10/22/24 21:14 Urine Color Yellow (Yellow) 10/22/24 21:55 Urine Appearance Clear (CLEAR) 10/22/24 21:55 Urine pH 6.5 (5-7) 10/22/24 21:55 Ur Specific [place] 1.040 (1.005-1.030) H 10/22/24 21:55 Urine Protein Negative (Negative) 10/22/24 21:55 Urine Glucose (UA) 3+ (Normal) H 10/22/24 21:55 Urine Ketones Negative (Negative) 10/22/24 21:55 Urine Blood Negative (Negative) 10/22/24 21:55 Urine Nitrate Negative (Negative) 10/22/24 21:55 Urine Bilirubin Negative (Negative) 10/22/24 21:55 Urine Urobilinogen 1.0 mg/dL (Negative) 10/22/24 21:55 Ur Leukocyte Esterase Negative (Negative) 10/22/24 21:55 Urine RBC 0-2 /hpf (0-2) 10/22/24 21:55 Urine WBC 0-5 /hpf (0-5) 10/22/24 21:55 Ur Squamous Epith Cells 0-5 /hpf (0-5) 10/22/24 21:55 Amorphous Sediment Not Reportable 10/22/24 21:55 Urine Bacteria None seen /hpf (NONE) 10/22/24 21:55 Hyaline Casts 0-4 /lpf H 10/22/24 21:55 Nasal MRSA (PCR) Not detected (Negative) 10/23/24 13:25 Serum Ketones Negative (Negative) 10/22/24 21:14 Coronavirus (PCR) Negative (Negative) 10/22/24 21:14 Hepatitis A IgM Ab Non-reactive (Nonreactive) 10/25/24 09:55 Hep Bs Antigen Non-reactive (Nonreactive) 10/25/24 09:55 Hep Bs Antibody 16.2 (11.5-1000) 10/25/24 09:55 Hep B Core Total Ab Non-reactive (Nonreactive) 10/25/24 09:55 Hepatitis C Antibody Non-reactive (Nonreactive) 10/25/24 09:55 HIV 1&2 Ab & HIV 1 Ag Non-reactive (Non-Reactiv) 10/25/24 09:55 HIV 1&2 Antibody Non-reactive (Non-Reactiv) 10/25/24 09:55 Influenza A (PCR) Negative (Negative) 10/22/24 21:14 Influenza Type B (PCR) Negative (Negative) 10/22/24 21:14 RSV (PCR) Negative (Negative) 10/22/24 21:14 Vitals Last Vital Signs Temp 98.2 F 10/28/24 11:46 Pulse 98 10/28/24 11:46 Resp 18 10/28/24 11:46 BP 124/84 10/28/24 11:46 Pulse Ox 95 10/28/24 11:46 O2 Del Method Room Air 10/28/24 11:46 O2 Flow Rate 5 10/28/24 09:06 FiO2 45 10/26/24 22:18 Discharge Plan Discharge Patient Disposition: Home Condition: Stable Prescriptions: No Action gabapentin [Neurontin] 300 mg capsule 300 mg PO BID (DME) FreeStyle Stacey 3 [place] Misc See Rx Instructions .Route Qty: 1 0RF Rx Instructions: As directed (DME) FreeStyle Stacey 3 Sensor Device See Rx Instructions .Route Qty: 2 3RF Rx Instructions: As directed omeprazole 40 mg capsule,delayed release(DR/EC) 40 mg PO DAILY Qty: 30 0RF loperamide [Anti-Diarrheal (loperamide)] 2 mg capsule 2 mg PO Q6H PRN (Reason: Diarrhea) albuterol sulfate 90 mcg/actuation HFA aerosol inhaler 2 puff inhalation Q4H PRN (Reason: Shortness Of Breath) icosapent ethyl [Vascepa] 1 gram capsule 2 g PO BID PreserVision AREDS 4,296 mcg-226 mg-90 mg capsule 1 cap PO BID aripiprazole 30 mg tablet 15 mg PO BID 30 Days Qty: 30 3RF Rx Instructions: Take one-half tablet twice a day, morning and night time divalproex 500 mg tablet extended release 24 hr 2,000 mg PO BEDTIME 30 Days Qty: 120 3RF Rx Instructions: Take 4 tablets daily at bedtime olanzapine 5 mg tablet,disintegrating 5 mg PO BID PRN (Reason: agitation/anxiety) Qty: 60 3RF Rx Instructions: Take one tablet up to twice daily, if needed for agitation/anxiety venlafaxine 150 mg capsule,extended release 24hr 300 mg PO QAM 30 Days Qty: 60 3RF Rx Instructions: Take two capsules by mouth every morning; stop other doses of this medication (DME) Dexcom G7 Sample Checker Misc See Rx Instructions .Route Qty: 1 0RF Rx Instructions: As directed (DME) Dexcom G7 Sensor Device See Rx Instructions .Route Qty: 3 3RF Rx Instructions: As directed metoprolol succinate 25 mg tablet extended release 24 hr 25 mg PO DAILY Qty: 90 0RF glucagon HCl [Glucagon (HCl) Emergency Kit] 1 mg recon soln 1 mg SUBCUT Q20M PRN (Reason: hypoglycemia) Qty: 1 1RF Rx Instructions: until target blood sugar attained insulin lispro [Humalog KwikPen Insulin] 100 unit/mL insulin pen 5 unit SUBCUT TID Qty: 15 1RF Rx Instructions: 5units every 4 hours as needed for blood sugars above 400 Eliquis 5 mg tablet 5 mg PO BID Qty: 180 3RF ondansetron 4 mg tablet,disintegrating 4 mg PO Q8H PRN (Reason: nausea and vomiting) Qty: 20 0RF pioglitazone 45 mg tablet See Rx Instructions .ROUTE .COMPLEX Qty: 30 2RF Dose Instruction: TAKE 1 TABLET BY MOUTH EVERY DAY Rx Instructions: TAKE 1 TABLET BY MOUTH EVERY DAY diazepam 5 mg tablet 5 mg PO TID Qty: 90 1RF Rx Instructions: Take one tablet by mouth morning, afternoon, and evening, at least 4 hours apart metformin 1,000 mg tablet See Rx Instructions .ROUTE .COMPLEX Qty: 90 0RF Dose Instruction: TAKE 1 TABLET BY MOUTH EVERY DAY Rx Instructions: TAKE 1 TABLET BY MOUTH EVERY DAY Mounjaro 10 mg/0.5 mL pen injector See Rx Instructions .ROUTE .COMPLEX Qty: 2 1RF Dose Instruction: inject 10mg (0.5ml) SUBCUTANEOUSLY EVERY 7 DAYS Rx Instructions: inject 10mg (0.5ml) SUBCUTANEOUSLY EVERY 7 DAYS aspirin 81 mg tablet,delayed release (DR/EC) 81 mg PO DAILY acetaminophen [Pain Reliever (acetaminophen)] 500 mg tablet 1,000 mg PO Q6H PRN (Reason: Pain) Jardiance 25 mg tablet 25 mg PO DAILY Biofreeze (menthol) 10 % cream 1 applic topical TID PRN (Reason: muscle pain) Qty: 85 0RF bismuth subsalicylate [Stomach Relief] 262 mg/15 mL suspension 262 mg PO Q4H PRN (Reason: Indigestion) irbesartan 150 mg tablet 150 mg PO DAILY atorvastatin 80 mg tablet 80 mg PO BEDTIME promethazine 25 mg tablet 25 mg PO Q6H PRN (Reason: Nausea And Vomiting) glucose 4 gram Tablet,Chewable 16 g PO PRN PRN (Reason: LOW BLOOD SUGAR) Rx Instructions: for bs lower than 60 ibuprofen 600 mg tablet 600 mg PO TID PRN (Reason: Pain) cetirizine 10 mg Tablet 10 mg PO DAILY PRN (Reason: allergies) Discharge Orders: Discharge Order (Routine); Ordered 10/28/24 Ordered By: Brenden Ellis Referrals: Bautista Ruiz MD [Primary Care Provider] - (We have notified your physician's clinic of the need for a follow-up appointment to be scheduled. If you have not heard from them within the next 2 business days, please call them directly. SENT FAX FOR APPOINTMENT) Discharge Diet: Usual diet, Cardiac and Diabetic Discharge Activity: Resume usual activity and Increase activity as tolerated Patient Instructions: Hypoxia (GEN), Opioid Safety, Pain Management Activity Restrictions/Additional Instructions: Aspiration precaution Please make sure you are sitting up or walking around for at least 45 minutes after each meal. Please make sure you are sitting up while drinking water or soda. Continue with incentive spirometry 3-4 times a day, 10 times with each cycle for next 2 weeks. Discharge Attestations Time Spent in Discharge Care*: greater than 30 min Specific Discharge Activities: educating patient, discussing with pcp/other providers, discussing with rn case management/social workers/dc planners, documenting/other paperwork and evaluating patient/reviewing data Status at Discharge: Cognitive status at discharge: cognitively intact , Behavioral status at discharge: cooperative , Functional status at discharge: independent ambulation , Overall status at discharge: patient is back to baseline Quality Metrics Clinical Quality Measures [ No reported AMI, CVA or VTE this stay] Coding Level of Care Code 60478 Total time (in minutes) for Discharge: 60 Diagnoses Acute respiratory failure with hypoxia J96.01 Sepsis A41.9 Aspiration pneumonia of left lower lobe, unspecified aspiration pneumonia type J69.0 Aspiration pneumonia type: unspecified Laterality: left Lung location: lower lobe of lung Pneumonia type: aspiration pneumonia Bipolar 1 disorder F31.9 Hypertension I10 Hyperlipidemia E78.5 Chronic anticoagulation Z79.01 Type 2 diabetes mellitus E11.9; Z79.4 Diabetes mellitus complication status: without complication Diabetes mellitus extermination supervisor insulin use: with retirement use Mild intellectual disability F70
--- NOTE | 2024-10-28 13:22 | PC.NURSE ---
Discussed discharge with patient. Discussed all his continued medications. There were no new meds or changed medications. Went over follow up appointment and when patient needed to call to set that up if office does not notify patient. Discussed incentive spirometer and the importance of the use. Patient verbalized understanding.
--- NOTE | 2024-10-28 13:34 | PC.NURSE ---
Tried to call Next of Kin for patient twice to let them know patient was ready to go home. No answer either time. Unit secretar got a hold of someone and that person stated they would let Diane know. Patient is just now being picked up at 1337.
== END 2024-10-28 13:37 | disposition home or self-care (01) | DRG 871 ==
LOC: ER 23:24 → ER IP 23:31 → MEDSURG 10-23 10:28
PROVIDERS: Student in an Organized Health Care Education/Training Program; Admitting Provider Family Medicine; Emergency Provider Emergency Medicine; PCP Family Medicine; Visit Provider Student in an Organized Health Care Education/Training Program
DX: A41.9 Sepsis, unspecified organism (principal); J18.9 Pneumonia, unspecified organism; J69.0 Pneumonitis due to inhalation of food and vomit; J96.01 Acute respiratory failure with hypoxia; R65.20 Severe sepsis without septic shock; E11.65 Type 2 diabetes mellitus with hyperglycemia; R74.01 Elevation of levels of liver transaminase levels; E86.0 Dehydration; E11.42 Type 2 diabetes mellitus with diabetic polyneuropathy; E78.5 Hyperlipidemia, unspecified; I10 Essential (primary) hypertension; F70 Mild intellectual disabilities; Z72.0 Tobacco use; Z11.52 Encounter for screening for COVID-19; Z79.82 Long term (current) use of aspirin; Z79.84 Long term (current) use of oral hypoglycemic drugs; Z79.01 Long term (current) use of anticoagulants; Z79.4 Long term (current) use of insulin; Z86.711 Personal history of pulmonary embolism
CPT/HCPCS: 0241U; 36415; 36416; 36600; 70450; 71045; 71250; 74230; 76700; 80051; 80053; 80061; 81001; 82009; 82330; 82607; 82746; 82805; 82962; 83036; 83540; 83550; 83605; 83735; 83880; 84145; 84443; 85025; 86140; 86403; 86705; 86706; 86709; 86803; 87040; 87070; 87205; 87340; 87806; 92610; 92611; 93005; 94640; 94660; 94664; 94669; 94760; 96365; 96372; 96375; 99291; J0456; J0696; J1815; J1940; J2470; J3490; J7030; J7040; J7050; J7608; J7614; J7626; J7644

== ENCOUNTER → 2024-11-11 13:00 | Outpatient (BNVA) | payer MEDICARE, MEDICAID, SELFPAY | PROVIDERS: PCP Family Medicine; Visit Provider Internal Medicine | DX: I10 Essential (primary) hypertension (principal); E78.5 Hyperlipidemia, unspecified; E11.9 Type 2 diabetes mellitus without complications; Z86.711 Personal history of pulmonary embolism; Z79.01 Long term (current) use of anticoagulants; F17.290 Nicotine dependence, other tobacco product, uncomplicated; Z79.4 Long term (current) use of insulin | CPT/HCPCS: 99214 ==

== ENCOUNTER 2024-11-14 20:11 | Emergency (ER) | payer MEDICARE, MEDICAID, SELFPAY ==
[2024-11-14 20:17] VITALS: BP 147/88; PULSE 111; RESP 20; TEMP 36.6; O2SAT 93
--- NOTE | 2024-11-14 20:28 | ECG_ITS ---
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1980 Requested By: Lam Becerra Order Number: [id number] Drew MD: YOVANA POOL Measurements Intervals [place] Rate: 114 P: 41 MD: 189 QRS: -17 QRSD: 105 T: 31 QT: 316 QTc: 435 Interpretive Statements SINUS TACHYCARDIA ANTEROSEPTAL MYOCARDIAL INFARCTION , OF INDETERMINATE AGE [40+ ms Q WAVE IN V1-V4] Compared to ECG 10/22/2024 21:27:16 ST (T wave) deviation no longer present Myocardial infarct finding still present Electronically Signed On 11-15-2024 18:40:38 5TH GRADE TEACHER by YOVANA POOL [email or web address]
--- NOTE | 2024-11-14 20:28 | XRR_ITS ---
PROCEDURE INFORMATION: Exam: XR Chest Exam date and time: 11/14/2024 8:32 PM Age: 44 years old Clinical indication: Patient HX: Cough; Chest pain TECHNIQUE: Imaging protocol: Radiologic exam of the chest. Views: 1 view. COMPARISON: CR (CHEST, ) 10/26/2024 5:15 PM FINDINGS: Lungs: Unremarkable. No consolidation. Pleural spaces: Unremarkable. No pleural effusion. No pneumothorax. Heart/Mediastinum: Unremarkable. No cardiomegaly. Bones/joints: Unremarkable. XR/XR chest 1V portable [id number] IMPRESSION: No acute findings.
[2024-11-14 20:36] VITALS: BP 147/88; PULSE 103; RESP 12; O2SAT 93
[2024-11-14 20:45] LABS: Basophils % 0.8 %; Eosinophils % 0.6 %; Hematocrit 45.5 % (37-53); Lymphocytes # 2.5 10^3/uL (0.8-4.8); Mean Corpuscular HGB Conc 32.1 g/dL (30-55); Mean Corpuscular Hemoglobin 29.3 pg (27-33); Mean Corpuscular Volume 91.4 fl (82-101); Mean Platelet Volume 10.6 fL (7.4-10.4); Monocytes # 0.3 10^3/uL (0.2-0.9); Neutrophils # 2.47 10^3/uL (1.8-7.7); Neutrophils % 46.2 %; Nucleated Red Blood Cells % 0 %; Platelet Count 178 10^3/cmm (157-399); Red Blood Count 4.98 10^6/uL (3.85-5.65); Red Cell Distribution Width 14.8 % (12.1-15.1); White Blood Count 5.33 10^3/uL (3.29-11.43)
[2024-11-14 21:09] LABS: Troponin(5th) Baseline < 6 ng/L (0-15)
[2024-11-14 21:18] LABS: Blood Urea Nitrogen 8 mg/dL (6-20); Calcium 8.5 mg/dL (8.5-10.5); Carbon Dioxide 24 mmol/L (22-29); Chloride 100 mmol/L (98-107); Creatinine Clr Calc Pharmacy 173.1254; Glucose 319 mg/dL (65-115); NT Pro B Type Natriuretic Pept < 36 pg/mL (0-125); Osmolality Calculated 291 mOsm/kg (285-295); Sodium 135 mmol/L (136-145)
[2024-11-14 21:23] VITALS: PULSE 102; RESP 19; O2SAT 96
--- NOTE | 2024-11-14 22:08 | ED_ITS ---
HPI - Chest Pain 2 General: Chief Complaint: Chest Pain Stated Complaint: CP Time Seen by Provider: 11/14/24 20:19 History of Present Illness: This patient is a 44-year-old white male who lives in a [facility] who presents to the emergency department with caretakers complaining of a cough. Patient states he was hospitalized in October for pneumonia. States he has been doing well up until the last couple of days where he has developed a mild nonproductive cough. Patient does have some chest discomfort with cough only. He has had some diaphoresis and some dizziness. No fever. Patient has a history of diabetes, hypertension and seizure disorder. Associated symptoms: Reports diaphoresis Related Data Home Medications Medication Instructions Recorded Confirmed gabapentin 300 mg capsule 300 mg PO BID 10/11/22 11/11/24 (Neurontin) bismuth subsalicylate 262 mg/15 mL 262 mg PO Q4H PRN Indigestion 03/16/23 11/11/24 oral suspension (Stomach Relief) irbesartan 150 mg tablet 150 mg PO DAILY 03/16/23 11/11/24 acetaminophen 500 mg tablet (Pain 1,000 mg PO Q6H PRN Pain 10/24/23 11/11/24 Reliever (acetaminophen)) aspirin 81 mg tablet,delayed 81 mg PO DAILY 10/24/23 11/11/24 release empagliflozin 25 mg tablet 25 mg PO DAILY 10/24/23 11/11/24 (Jardiance) atorvastatin 80 mg tablet 80 mg PO BEDTIME 12/31/23 11/11/24 glucose 4 gram chewable tablet 16 g PO PRN PRN LOW BLOOD SUGAR 12/31/23 11/11/24 ibuprofen 600 mg tablet 600 mg PO TID PRN Pain 12/31/23 11/11/24 promethazine 25 mg tablet 25 mg PO Q6H PRN Nausea And 12/31/23 11/11/24 Vomiting albuterol sulfate 90 mcg/actuation 2 puff inhalation Q4H PRN 08/05/24 11/11/24 aerosol inhaler Shortness Of Breath icosapent ethyl 1 gram capsule 2 g PO BID 08/05/24 11/11/24 (Vascepa) loperamide 2 mg capsule 2 mg PO Q6H PRN Diarrhea 08/05/24 11/11/24 (Anti-Diarrheal (loperamide)) vitamins A,C,R-rkiq-lgivig 4,296 1 cap PO BID 08/05/24 11/11/24 mcg-226 mg-90 mg capsule (PreserVision AREDS) cetirizine 10 mg tablet 10 mg PO DAILY PRN allergies 10/23/24 11/11/24 insulin lispro 100 unit/mL 5 unit SUBCUT TID PRN 11/11/24 subcutaneous pen (Humalog KwikPen (U-100) Insulin) Previous Rx's Medication Instructions Recorded glucagon HCl 1 mg solution for 1 mg SUBCUT Q20M PRN hypoglycemia 12/17/23 injection (Glucagon (HCl) #1 ea Emergency Kit) apixaban 5 mg tablet (Eliquis) 5 mg PO BID #180 tabs 01/28/24 omeprazole 40 mg capsule,delayed 40 mg PO DAILY #30 caps 04/19/24 release blood-glucose meter,continuous #1 ea 05/14/24 (FreeStyle Stacey 3 [place]) blood-glucose sensor (FreeStyle #2 ea 05/14/24 Stacey 3 Sensor device) ondansetron 4 mg disintegrating 4 mg PO Q8H PRN nausea and 07/02/24 tablet vomiting #20 tabs aripiprazole 30 mg tablet 15 mg (1/2 x 30 mg) PO BID 30 days 08/05/24 #30 tabs divalproex 500 mg tablet,extended 2,000 mg (4 x 500 mg) PO BEDTIME 08/05/24 release 24 hr 30 days #120 tabs olanzapine 5 mg disintegrating 5 mg PO BID PRN agitation/anxiety 08/05/24 tablet #60 tabs venlafaxine 150 mg 300 mg (2 x 150 mg) PO QAM 30 days 08/05/24 capsule,extended release 24 hr #60 caps blood-glucose meter,continuous #1 ea 08/13/24 (Dexcom G7 Welder Apprentice Combination) blood-glucose sensor (Dexcom G7 #3 ea 08/13/24 Sensor device) pioglitazone 45 mg tablet See Rx Instructions .Route 08/27/24 .COMPLEX #30 tabs menthol 10 % topical cream 1 applic topical TID PRN muscle 09/03/24 (Biofreeze (menthol)) pain #85 grams diazepam 5 mg tablet 5 mg PO TID #90 tabs 09/18/24 metformin 1,000 mg tablet See Rx Instructions .Route 09/23/24 .COMPLEX #90 tabs tirzepatide 10 mg/0.5 mL See Rx Instructions .Route 10/23/24 subcutaneous pen injector .COMPLEX #2 mL (Mounjaro) metoprolol succinate 25 mg 25 mg PO DAILY #90 tabs 11/04/24 tablet,extended release 24 hr Allergies Allergy/AdvReac Type Severity Reaction Status Date / Time No Known Allergies Allergy Verified 11/11/24 13:21 Review of Systems 2 General: Reports: 10 or more systems reviewed and unremarkable except in HPI and below Const: Reports: diaphoresis Resp: Reports: non-productive cough Neuro: Reports: dizziness PFSH ED 2 PFSH: Medical History Coronary-myocardial bridge Peripheral neuropathy Type 2 diabetes mellitus Hyperlipidemia Hypertension Pulmonary embolism Other reactions to severe stress Bipolar 1 disorder Most recent episode depressed Fracture of [place] [facility] Surgical History History of appendectomy Social History Smoking and tobacco/nicotine status: current some day tobacco/nicotine user e- cigarettes Alcohol intake: current Alcohol intake frequency: few times a month Substance/Drug Use: never Marital status: Single Physical Exam 2 Const: COMMON NORMALS: no acute distress, patient oriented x3 and no limitations GENERAL APPEARANCE: cooperative and comfortable HENMT: COMMON NORMALS: normocephalic, atraumatic, Normal nasal mucous membranes and turbinates present, moist oral mucous membranes and oropharynx normal HEAD & SCALP: normal to inspection, normocephalic and atraumatic F LYLY & SINUS: normal facial exam NOSE: Normal nasal mucous membranes and turbinates present Eye: COMMON NORMALS: Equal, round and reactive pupils present, EOMs intact bilaterally and conjunctivae normal GENERAL EYE: appearance normal, both eyes and all related structures CONJUNCTIVA: Yes conjunctivae normal PUPIL: Yes Equal, round and reactive pupils present Neck/C-Spine: COMMON NORMALS: supple and no JVD Chest: COMMONS NORMALS: normal inspection of the chest Resp: COMMON NORMALS: normal respiratory effort and clear to auscultation bilaterally AUSCULTATION: clear to auscultation bilaterally Cardio: COMMON NORMALS: no JVD, regular rate, regular rhythm, No gallops present (Cardio), No murmurs present (Cardio) and No rub (Cardio) RATE: r egular rate RHYTHM: regular rhythm GI: COMMON NORMALS: Normal to inspection, nondistended, normoactive bowel sounds present, Soft to palpation and non-tender AUSCULTATION: Yes normoactive bowel sounds PALPATION: Yes Soft to palpation : COMMON NORMALS: Yes no CVA tenderness BLADDER/KIDNEY EXAM: Yes no CVA tenderness Back/Pelvis: COMMON NORMALS: no CVA tenderness and thoracic and lumbar spine normal to inspection Extremity: COMMON NORMALS: normal to inspection Neuro: COMMON NORMALS: patient oriented x3 and CN's II-XII intact bilaterally Psych: COMMON NORMALS: mental status grossly normal, Normal thought process present and cooperative THOUGHT PROCESS: Normal thought process present Skin: COMMON NORMALS: no rashes or lesions noted, turgor normal and no jaundice GENERAL SKIN EXAM: no rashes or lesions noted and turgor normal Course 2 Vital Signs: Vital signs: Vital Signs Temperature 97.9 F 11/14/24 20:17 Pulse Rate 103 H 11/14/24 20:36 Respiratory Rate 12 11/14/24 20:36 Blood Pressure 147/88 11/14/24 20:36 Pulse Oximetry 93 11/14/24 20:36 Oxygen Delivery Me thod Room Air 11/14/24 20:17 MDM - Chest Pain Medical Decision Making Patient was asymptomatic throughout the ER stay. His EKG revealed sinus rhythm with no ST segment abnormalities. Chest x-ray did not reveal any infiltrates, cardiomegaly or pleural effusions. CBC was normal. BMP revealed a blood sugar of 319. BNP was less than 36. Troponin less than 6. All the results were discussed with the patient and his caretakers. I recommended Robitussin DM [id number] for the cough. Follow-up with primary care physician next week for recheck if no improvement. He was discharged in stable condition. Lab Data 11/14/24 20:38 11/14/24 20:38 Radiology Impressions Chest X-Ray 11/14/24 20:28 IMPRESSION: No acute findings. Laboratory Results WBC 5.33 10^3/uL (3.29-11.43) 11/14/24 20:38 RBC 4.98 10^6/uL (3.85-5.65) 11/14/24 20: Hgb 14.60 g/dL (11.27-16.99) 11/14/24 20: Hct 45.5 % (37-53) 11/14/24 20: MCV 91.4 fl (82-101) 11/14/24 20: MCH 29.3 pg (27-33) 11/14/24: MCHC 32.1 g/dL (30-55) 11/14/24: RDW 14.8 % (12.1-15.1) 11/14/24: Plt Count 178 10^3/cmm (157-399) 11/14/24: MPV 10.6 fL (7.4-10.4) H 11/14/24 20: Neut % (Auto) 46.2 % 11/14/24: Lymph % (Auto) 46.0 % 11/14/24: [place] % (Auto) 6.0 % 11/14/24: Eos % (Auto) 0.6 % 11/14/24: Baso % (Auto) 0.8 % 11/14/24: Neut # (Auto) 2.47 10^3/uL (1.8-7.7) 11/14/24: Lymph # (Auto) 2.5 10^3/uL (0.8-4.8) 11/14/24 20: [place] # (Auto) 0.3 10^3/uL (0.2-0.9) 11/14/24: Eos # (Auto) 0.0 10^3/uL (0.0-0.8) 11/14/24: Baso # (Auto) 0.0 10^3/uL (0.0-0.1) 11/14/24: Nucleated RBC % (auto) 0 % 11/14/24: Nucleated RBCs # 0.0 /100WBC 11/14/24 20: Sodium 135 mmol/L (136-145) L 11/14/24: Potassium 4.0 mmol/L (3.5-5.1) 01/10/25 20:38 Chloride 100 mmol/L (98-107) 11/14/24 20:38 Carbon Dioxide 24 mmol/L (22-29) 11/14/24 20:38 Anion Gap 15.0 (5-19) 11/14/24 20:38 BUN 8 mg/dL (6-20) 11/14/24 20:38 Creatinine 0.7 mg/dL (0.7-1.2) 11/14/24 20:38 GFR Calculation 122.0 mL/min (90-130) 11/14/24 20:38 Glucose 319 mg/dL (65-115) H 11/14/24 20:38 Calculated Osmolality 291 mOsm/kg (285-295) 11/14/24 20:38 Calcium 8.5 mg/dL (8.5-10.5) 11/14/24 20:38 Troponin T Baseline < 6 ng/L (0-15) 11/14/24 20:38 NT-Pro-B Natriuret Pep < 36 pg/mL (0-125) 11/14/24 20:38 All radiology interpretation(s) finalized by discharge Discharge Plan Discharge Patient Disposition: Home Clinical Impression: Cough Qualifiers: Cough type: acute Qualified Code(s): R05.1 - Acute cough Condition: Stable Prescriptions: No Action gabapentin [Neurontin] 300 mg capsule 300 mg PO BID (DME) FreeStyle Stacey 3 [place] Misc See Rx Instructions .Route Qty: 1 0RF Rx Instructions: As directed (DME) FreeStyle Stacey 3 Sensor Device See Rx Instructions .Route Qty: 2 3RF Rx Instructions: As directed omeprazole 40 mg capsule,delayed release(DR/EC) 40 mg PO DAILY Qty: 30 0RF loperamide [Anti-Diarrheal (loperamide)] 2 mg capsule 2 mg PO Q6H PRN (Reason: Diarrhea) albuterol sulfate 90 mcg/actuation HFA aerosol inhaler 2 puff inhalation Q4H PRN (Reason: Shortness Of Breath) icosapent ethyl [Vascepa] 1 gram capsule 2 g PO BID PreserVision AREDS 4,296 mcg-226 mg-90 mg capsule 1 cap PO BID aripiprazole 30 mg tablet 15 mg PO BID 30 Days Qty: 30 3RF Rx Instructions: Take one-half tablet twice a day, morning and night time divalproex 500 mg tablet extended release 24 hr 2,000 mg PO BEDTIME 30 Days Qty: 120 3RF Rx Instructions: Take 4 tablets daily at bedtime olanzapine 5 mg tablet,disintegrating 5 mg PO BID PRN (Reason: agitation/anxiety) Qty: 60 3RF Rx Instructions: Take one tablet up to twice daily, if needed for agitation/anxiety venlafaxine 150 mg capsule,extended release 24hr 300 mg PO QAM 30 Days Qty: 60 3RF Rx Instructions: Take two capsules by mouth every morning; stop other doses of this medication insulin lispro [Humalog KwikPen Insulin] 100 unit/mL insulin pen 5 unit SUBCUT TID PRN Rx Instructions: 5units every 4 hours as needed for blood sugars above 400 (DME) Dexcom G7 Welder Apprentice Combination Misc See Rx Instructions .Route Qty: 1 0RF Rx Instructions: As directed (DME) Dexcom G7 Sensor Device See Rx Instructions .Route Qty: 3 3RF Rx Instructions: As directed glucagon HCl [Glucagon (HCl) Emergency Kit] 1 mg recon soln 1 mg SUBCUT Q20M PRN (Reason: hypoglycemia) Qty: 1 1RF Rx Instructions: until target blood sugar attained Eliquis 5 mg tablet 5 mg PO BID Qty: 180 3RF ondansetron 4 mg tablet,disintegrating 4 mg PO Q8H PRN (Reason: nausea and vomiting) Qty: 20 0RF pioglitazone 45 mg tablet See Rx Instructions .ROUTE .COMPLEX Qty: 30 2RF Dose Instruction: TAKE 1 TABLET BY MOUTH EVERY DAY Rx Instructions: TAKE 1 TABLET BY MOUTH EVERY DAY diazepam 5 mg tablet 5 mg PO TID Qty: 90 1RF Rx Instructions: Take one tablet by mouth morning, afternoon, and evening, at least 4 hours apart metformin 1,000 mg tablet See Rx Instructions .ROUTE .COMPLEX Qty: 90 0RF Dose Instruction: TAKE 1 TABLET BY MOUTH EVERY DAY Rx Instructions: TAKE 1 TABLET BY MOUTH EVERY DAY Mounjaro 10 mg/0.5 mL pen injector See Rx Instructions .ROUTE .COMPLEX Qty: 2 1RF Dose Instruction: inject 10mg (0.5ml) SUBCUTANEOUSLY EVERY 7 DAYS Rx Instructions: inject 10mg (0.5ml) SUBCUTANEOUSLY EVERY 7 DAYS metoprolol succinate 25 mg tablet extended release 24 hr 25 mg PO DAILY Qty: 90 3RF aspirin 81 mg tablet,delayed release (DR/EC) 81 mg PO DAILY acetaminophen [Pain Reliever (acetaminophen)] 500 mg tablet 1,000 mg PO Q6H PRN (Reason: Pain) Jardiance 25 mg tablet 25 mg PO DAILY Biofreeze (menthol) 10 % cream 1 applic topical TID PRN (Reason: muscle pain) Qty: 85 0RF bismuth subsalicylate [Stomach Relief] 262 mg/15 mL suspension 262 mg PO Q4H PRN (Reason: Indigestion) irbesartan 150 mg tablet 150 mg PO DAILY atorvastatin 80 mg tablet 80 mg PO BEDTIME promethazine 25 mg tablet 25 mg PO Q6H PRN (Reason: Nausea And Vomiting) glucose 4 gram Tablet,Chewable 16 g PO PRN PRN (Reason: LOW BLOOD SUGAR) Rx Instructions: for bs lower than 60 ibuprofen 600 mg tablet 600 mg PO TID PRN (Reason: Pain) cetirizine 10 mg Tablet 10 mg PO DAILY PRN (Reason: allergies) Discharge Orders: Discharge ED (Routine); Ordered 11/14/24 Ordered By: Lam Becerra Referrals: Bautista Ruiz MD [Primary Care Provider] - Patient Instructions: Acute Cough (ED) Activity Restrictions/Additional Instructions: Take Robitussin DM for cough. Follow-up with your primary care physician next week for recheck if no improvement. Coding Level of Care Code ED Mold Shop Supervisor for Dasha Nix
[2024-11-14 22:23] VITALS: BP 152/79; PULSE 97; RESP 16; O2SAT 94
[2024-11-14 22:38] VITALS: BP 152/79; PULSE 97; O2SAT 94
== END 2024-11-14 22:39 | disposition home or self-care (01) ==
PROVIDERS: Emergency Provider Emergency Medicine; PCP Family Medicine
DX: R05.1 Acute cough (principal); Z79.4 Long term (current) use of insulin; Z79.01 Long term (current) use of anticoagulants; Z79.84 Long term (current) use of oral hypoglycemic drugs; Z79.82 Long term (current) use of aspirin; F17.290 Nicotine dependence, other tobacco product, uncomplicated; E11.9 Type 2 diabetes mellitus without complications; E78.5 Hyperlipidemia, unspecified; I10 Essential (primary) hypertension
CPT/HCPCS: 36415; 71045; 80048; 83880; 84484; 85025; 93005; 99285

== ENCOUNTER 2024-11-20 20:28 | Emergency (ER) | payer MEDICARE, MEDICAID, SELFPAY ==
--- NOTE | 2024-11-20 20:00 | ECG_ITS ---
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
[2024-11-20 20:29] VITALS: BP 139/91; PULSE 119; RESP 18; TEMP 36.3; O2SAT 94; BMI 31.6
--- NOTE | 2024-11-20 20:46 | XRR_ITS ---
PROCEDURE INFORMATION: Exam: XR Chest Exam date and time: 11/20/2024 9:02 PM Age: 44 years old Clinical indication: Other: Syncope TECHNIQUE: Imaging protocol: Radiologic exam of the chest. Views: 1 view. COMPARISON: CR (CHEST, ) 11/14/2024 8:32 PM FINDINGS: Lungs: Unremarkable. No consolidation. Pleural spaces: Unremarkable. No pleural effusion. No pneumothorax. Heart/Mediastinum: Unremarkable. No cardiomegaly. Bones/joints: Unremarkable. XR/XR chest 1V portable [id number] IMPRESSION: No acute findings.
--- NOTE | 2024-11-20 20:46 | CTR_ITS ---
PROCEDURE INFORMATION: Exam: CT Head Without Contrast Exam date and time: 11/20/2024 9:03 PM Age: 44 years old Clinical indication: Injury or trauma; Fall; Concussion/head injury; Consciousness not specified; Additional info: Fall, syncope, on anticoagulant TECHNIQUE: Imaging protocol: Computed tomography of the head without contrast. Radiation optimization: All CT scans at this facility use at least one of these dose optimization techniques: automated exposure control; mA and/or kV adjustment per patient size (includes targeted exams where dose is matched to clinical indication); or iterative reconstruction. COMPARISON: CT head wo con* [id number] 10/22/2024 2:11 PM RADIATION DOSE METRICS: Total DLP (mGy-cm): 1381.98 FINDINGS: Brain: No acute intracranial abnormality. Cerebral ventricles: No ventriculomegaly. Paranasal sinuses: Visualized sinuses are unremarkable. No fluid levels. Mastoid air cells: Visualized mastoid air cells are well aerated. Bones: Soft tissue hematoma overlying the midline skull at the vertex with no underlying skull fracture. Soft tissues: See Bones finding. CT/CT head wo con* [id number] IMPRESSION: 1. No acute intracranial abnormality. 2. Soft tissue hematoma overlying the midline skull at the vertex with no underlying skull fracture.
[2024-11-20 20:52] LABS: Basophils % 0.3 %; Eosinophils # 0.1 10^3/uL (0.0-0.8); Eosinophils % 0.8 %; Hematocrit 46.7 % (37-53); Lymphocytes # 3.2 10^3/uL (0.8-4.8); Lymphocytes % 50.4 %; Mean Corpuscular Hemoglobin 29.4 pg (27-33); Mean Corpuscular Volume 89.3 fl (82-101); Mean Platelet Volume 10.5 fL (7.4-10.4); Monocytes # 0.5 10^3/uL (0.2-0.9); Monocytes % 7.8 %; Neutrophils % 40.4 %; Nucleated Red Blood Cells % 0 %; Platelet Count 159 10^3/cmm (157-399); Red Blood Count 5.23 10^6/uL (3.85-5.65); Red Cell Distribution Width 15.3 % (12.1-15.1); White Blood Count 6.43 10^3/uL (3.29-11.43)
[2024-11-20 21:04] LABS: Alanine Aminotransferase 14 U/L (0-41); Albumin Level 4.1 g/dL (3.5-5.2); Alkaline Phosphatase 163 U/L (40-130); Anion Gap 14.9 (5-19); Aspartate Amino Transferase 12 U/L (0-40); Blood Urea Nitrogen 7 mg/dL (6-20); Calcium 8.9 mg/dL (8.5-10.5); Carbon Dioxide 30 mmol/L (22-29); Chloride 97 mmol/L (98-107); Creatinine Clr Calc Pharmacy 150.7069; Globulin 3.1 g/dL (1.3-4.6); Glomerular Filtration Rate 104.5 mL/min (90-130); Glucose 319 mg/dL (65-115); Osmolality Calculated 296 mOsm/kg (285-295); Potassium 3.9 mmol/L (3.5-5.1); Sodium 138 mmol/L (136-145); Total Bilirubin 0.2 mg/dL (0.15-1.2); Total Protein 7.2 g/dL (6.6-8.7)
[2024-11-20 21:19] VITALS: BP 121/71; PULSE 103; RESP 18; O2SAT 94
--- NOTE | 2024-11-20 21:50 | ED_ITS ---
HPI - Fall 2 General: Chief Complaint: Fall Stated Complaint: PASSED OUT HIT HEAD Time Seen by Provider: 11/20/24 20:29 History of Present Illness: Patient presents to the ER after falling and hitting his head earlier today. He said that he got up to get something in the kitchen got dizzy All he remembered he was on the floor. Does not remember falling. Patient does take Eliquis and is a diabetic. Staff says blood pressures in the 190s when they took it with him on the floor. And his blood sugar was in the 300s which is normal for him. Related Data Home Medications Medication Instructions Recorded Confirmed gabapentin 300 mg capsule 300 mg PO BID 10/11/22 11/11/24 (Neurontin) bismuth subsalicylate 262 mg/15 mL 262 mg PO Q4H PRN Indigestion 03/16/23 11/11/24 oral suspension (Stomach Relief) irbesartan 150 mg tablet 150 mg PO DAILY 03/16/23 11/11/24 acetaminophen 500 mg tablet (Pain 1,000 mg PO Q6H PRN Pain 10/24/23 11/11/24 Reliever (acetaminophen)) aspirin 81 mg tablet,delayed 81 mg PO DAILY 10/24/23 11/11/24 release empagliflozin 25 mg tablet 25 mg PO DAILY 10/24/23 11/11/24 (Jardiance) atorvastatin 80 mg tablet 80 mg PO BEDTIME 12/31/23 11/11/24 glucose 4 gram chewable tablet 16 g PO PRN PRN LOW BLOOD SUGAR 12/31/23 11/11/24 ibuprofen 600 mg tablet 600 mg PO TID PRN Pain 12/31/23 11/11/24 promethazine 25 mg tablet 25 mg PO Q6H PRN Nausea And 12/31/23 11/11/24 Vomiting albuterol sulfate 90 mcg/actuation 2 puff inhalation Q4H PRN 08/05/24 11/11/24 aerosol inhaler Shortness Of Breath icosapent ethyl 1 gram capsule 2 g PO BID 08/05/24 11/11/24 (Vascepa) loperamide 2 mg capsule 2 mg PO Q6H PRN Diarrhea 08/05/24 11/11/24 (Anti-Diarrheal (loperamide)) vitamins A,C,V-keav-msdvdo 4,296 1 cap PO BID 08/05/24 11/11/24 mcg-226 mg-90 mg capsule (PreserVision AREDS) cetirizine 10 mg tablet 10 mg PO DAILY PRN allergies 10/23/24 11/11/24 insulin lispro 100 unit/mL 5 unit SUBCUT TID PRN 11/11/24 subcutaneous pen (Humalog KwikPen (U-100) Insulin) Previous Rx's Medication Instructions Recorded glucagon HCl 1 mg solution for 1 mg SUBCUT Q20M PRN hypoglycemia 12/17/23 injection (Glucagon (HCl) #1 ea Emergency Kit) apixaban 5 mg tablet (Eliquis) 5 mg PO BID #180 tabs 01/28/24 omeprazole 40 mg capsule,delayed 40 mg PO DAILY #30 caps 04/19/24 release blood-glucose meter,continuous #1 ea 05/14/24 (FreeStyle Stacey 3 Haugan) blood-glucose sensor (FreeStyle #2 ea 05/14/24 Stacey 3 Sensor device) ondansetron 4 mg disintegrating 4 mg PO Q8H PRN nausea and 07/02/24 tablet vomiting #20 tabs aripiprazole 30 mg tablet 15 mg (1/2 x 30 mg) PO BID 30 days 08/05/24 #30 tabs divalproex 500 mg tablet,extended 2,000 mg (4 x 500 mg) PO BEDTIME 08/05/24 release 24 hr 30 days #120 tabs olanzapine 5 mg disintegrating 5 mg PO BID PRN agitation/anxiety 08/05/24 tablet #60 tabs venlafaxine 150 mg 300 mg (2 x 150 mg) PO QAM 30 days 08/05/24 capsule,extended release 24 hr #60 caps blood-glucose meter,continuous #1 ea 08/13/24 (Dexcom G7 Component Lab Tech) blood-glucose sensor (Dexcom G7 #3 ea 08/13/24 Sensor device) menthol 10 % topical cream 1 applic topical TID PRN muscle 09/03/24 (Biofreeze (menthol)) pain #85 grams metformin 1,000 mg tablet See Rx Instructions .Route 09/23/24 .COMPLEX #90 tabs tirzepatide 10 mg/0.5 mL See Rx Instructions .Route 10/23/24 subcutaneous pen injector .COMPLEX #2 mL (Mounjaro) metoprolol succinate 25 mg 25 mg PO DAILY #90 tabs 11/04/24 tablet,extended release 24 hr pioglitazone 45 mg tablet See Rx Instructions .Route 11/17/24 .COMPLEX #30 tabs diazepam 5 mg tablet 5 mg PO TID #90 tabs 11/20/24 Allergies Allergy/AdvReac Type Severity Reaction Status Date / Time No Known Allergies Allergy Verified 11/20/24 20:34 Review of Systems 2 General: Reports: 10 or more systems reviewed and unremarkable except in HPI and below PFSH ED 2 PFSH: Medical History Coronary-myocardial bridge Peripheral neuropathy Type 2 diabetes mellitus Hyperlipidemia Hypertension Pulmonary embolism Other reactions to severe stress Bipolar 1 disorder Most recent episode depressed Fracture of [facility] Surgical History History of appendectomy Social History Smoking and tobacco/nicotine status: current some day tobacco/nicotine user e- cigarettes Alcohol intake: current Alcohol intake frequency: few times a month Substance/Drug Use: never Marital status: Single Physical Exam 2 Const: COMMON NORMALS: no acute distress, average body habitus, patient oriented x3, no limitations, healthy appearing, alert and well nourished HENMT: COMMON NORMALS: normocephalic, atraumatic, hearing grossly normal bilaterally, external ears normal, Normal external nose present and moist oral mucous membranes HEAD & SCALP: normocephalic and atraumatic NOSE: Normal external nose present EXTERNAL EAR: Yes external ears normal Eye: COMMON NORMALS: Equal, round and reactive pupils present, EOMs intact bilaterally, conjunctivae normal and no scleral icterus CONJUNCTIVA: Yes conjunctivae normal PUPIL: Yes Equal, round and reactive pupils present Neck/C-Spine: COMMON NORMALS: full ROM, no lymphadenopathy, supple, no meningeal signs, no JVD and Thyroid normal THYROID: Thyroid normal Chest: COMMONS NORMALS: normal inspection of the chest and normal palpation of entire chest wall Resp: COMMON NORMALS: normal respiratory effort, No retractions, No use of accessory muscles and clear to auscultation bilaterally AUSCULTATION: clear to auscultation bilaterally Cardio: COMMON NORMALS: no JVD, regular rate, regular rhythm, S1 normal heart sound present, S2 normal heart sound present, No gallops present (Cardio), No clicks present (Cardio), No murmurs present (Cardio) and No rub (Cardio) R ATE: regular rate RHYTHM: regular rhythm HEART SOUNDS: S1 normal heart sound present and S2 normal heart sound present GI: COMMON NORMALS: Normal to inspection, nondistended, normoactive bowel sounds present, Soft to palpation, non-tender, No hepatosplenomegaly present and no masses PALPATION: Yes Soft to palpation and Yes No hepatosplenomegaly present Neuro: COMMON NORMALS: patient oriented x3 SENSORIUM/ORIENTATION: Yes alert MENINGEAL SIGNS: Yes no meningeal signs Course 2 Vital Signs: Vital signs: Vital Signs Temperature 97.4 F L 11/20/24 20:29 Pulse Rate 103 H 11/20/24 21:19 Respiratory Rate 18 11/20/24 21:19 Blood Pressure 121/71 11/20/24 21:19 Pulse Oximetry 94 11/20/24 21:19 Oxygen Delivery Me thod Room Air 11/20/24 20:29 MDM - Fall Medical Decision Making Lab work unremarkable except for elevated blood sugar 319 which is common for [place], chest x-ray showed no acute findings, head CT showed soft tissue hematoma without skull fracture or acute intracranial abnormality. Patient be discharged home. Medical Records I reviewed the patient's medical records. Lab Data I reviewed the patient's lab results. 11/20/24 20:36 11/20/24 20:36 Radiology Impressions Chest X-Ray 11/20/24 20:46 IMPRESSION: No acute findings. Head CT 11/20/24 20:46 IMPRESSION: 1. No acute intracranial abnormality. 2. Soft tissue hematoma overlying the midline skull at the vertex with no underlying skull fracture. Laboratory Results WBC 6.43 10^3/uL (3.29-11.43) 11/20/24 20:36 RBC 5.23 10^6/uL (3.85-5.65) 11/20/24 20:36 Hgb 15.40 g/dL (11.27-16.99) 11/20/24 20:36 Hct 46.7 % (37-53) 11/20/24 20:36 MCV 89.3 fl (82-101) 11/20/24 20:36 MCH 29.4 pg (27-33) 11/20/24 20:36 MCHC 33.0 g/dL (30-55) 11/20/24 20:36 RDW 15.3 % (12.1-15.1) H 11/20/24 20:36 Plt Count 159 10^3/cmm (157-399) 11/20/24 20:36 MPV 10.5 fL (7.4-10.4) H 11/20/24 20:36 Neut % (Auto) 40.4 % 11/20/24 20:36 Lymph % (Auto) 50.4 % 11/20/24 20:36 [place] % (Auto) 7.8 % 11/20/24 20:36 Eos % (Auto) 0.8 % 11/20/24 20:36 Baso % (Auto) 0.3 % 11/20/24 20:36 Neut # (Auto) 2.60 10^3/uL (1.8-7.7) 11/20/24 20:36 Lymph # (Auto) 3.2 10^3/uL (0.8-4.8) 11/20/24 20:36 [place] # (Auto) 0.5 10^3/uL (0.2-0.9) 11/20/24 20:36 Eos # (Auto) 0.1 10^3/uL (0.0-0.8) 11/20/24 20:36 Baso # (Auto) 0.0 10^3/uL (0.0-0.1) 11/20/24 20:36 Nucleated RBC % (auto) 0 % 11/20/24:36 Nucleated RBCs # 0.0 /100WBC 11/20/24 20:36 Sodium 138 mmol/L (136-145) 11/20/24 20:36 Potassium 3.9 mmol/L (3.5-5.1) 11/20/24 20:36 Chloride 97 mmol/L (98-107) L 11/20/24 20:36 Carbon Dioxide 30 mmol/L (22-29) H 11/20/24 20:36 Anion Gap 14.9 (5-19) 11/20/24 20:36 BUN 7 mg/dL (6-20) 11/20/24 20:36 Creatinine 0.8 mg/dL (0.7-1.2) 01/16/25 20:36 GFR Calculation 104.5 mL/min (90-130) 11/20/24 20:36 Glucose 319 mg/dL (65-115) H 11/20/24 20:36 Calculated Osmolality 296 mOsm/kg (285-295) H 11/20/24 20:36 Calcium 8.9 mg/dL (8.5-10.5) 11/20/24 20:36 Total Bilirubin 0.2 mg/dL (0.15-1.2) 11/20/24 20:36 AST 12 U/L (0-40) 11/20/24 20:36 ALT 14 U/L (0-41) 11/20/24 20:36 Alkaline Phosphatase 163 U/L (40-130) H 11/20/24 20:36 Total Protein 7.2 g/dL (6.6-8.7) 11/20/24 20:36 Albumin 4.1 g/dL (3.5-5.2) 11/20/24 20:36 Globulin 3.1 g/dL (1.3-4.6) 11/20/24 20:36 All radiology interpretation(s) finalized by discharge Discharge Plan Discharge Patient Disposition: Home Clinical Impression: Fall, Syncope, Hematoma of scalp Condition: Stable Prescriptions: No Action gabapentin [Neurontin] 300 mg capsule 300 mg PO BID (DME) FreeStyle Stacey 3 Haugan Misc See Rx Instructions .Route Qty: 1 0RF Rx Instructions: As directed (DME) FreeStyle Stacey 3 Sensor Device See Rx Instructions .Route Qty: 2 3RF Rx Instructions: As directed omeprazole 40 mg capsule,delayed release(DR/EC) 40 mg PO DAILY Qty: 30 0RF loperamide [Anti-Diarrheal (loperamide)] 2 mg capsule 2 mg PO Q6H PRN (Reason: Diarrhea) albuterol sulfate 90 mcg/actuation HFA aerosol inhaler 2 puff inhalation Q4H PRN (Reason: Shortness Of Breath) icosapent ethyl [Vascepa] 1 gram capsule 2 g PO BID PreserVision AREDS 4,296 mcg-226 mg-90 mg capsule 1 cap PO BID aripiprazole 30 mg tablet 15 mg PO BID 30 Days Qty: 30 3RF Rx Instructions: Take one-half tablet twice a day, morning and night time divalproex 500 mg tablet extended release 24 hr 2,000 mg PO BEDTIME 30 Days Qty: 120 3RF Rx Instructions: Take 4 tablets daily at bedtime olanzapine 5 mg tablet,disintegrating 5 mg PO BID PRN (Reason: agitation/anxiety) Qty: 60 3RF Rx Instructions: Take one tablet up to twice daily, if needed for agitation/anxiety venlafaxine 150 mg capsule,extended release 24hr 300 mg PO QAM 30 Days Qty: 60 3RF Rx Instructions: Take two capsules by mouth every morning; stop other doses of this medication insulin lispro [Humalog KwikPen Insulin] 100 unit/mL insulin pen 5 unit SUBCUT TID PRN Rx Instructions: 5units every 4 hours as needed for blood sugars above 400 (DME) Dexcom G7 Component Lab Tech Misc See Rx Instructions .Route Qty: 1 0RF Rx Instructions: As directed (DME) Dexcom G7 Sensor Device See Rx Instructions .Route Qty: 3 3RF Rx Instructions: As directed glucagon HCl [Glucagon (HCl) Emergency Kit] 1 mg recon soln 1 mg SUBCUT Q20M PRN (Reason: hypoglycemia) Qty: 1 1RF Rx Instructions: until target blood sugar attained Eliquis 5 mg tablet 5 mg PO BID Qty: 180 3RF ondansetron 4 mg tablet,disintegrating 4 mg PO Q8H PRN (Reason: nausea and vomiting) Qty: 20 0RF metformin 1,000 mg tablet See Rx Instructions .ROUTE .COMPLEX Qty: 90 0RF Dose Instruction: TAKE 1 TABLET BY MOUTH EVERY DAY Rx Instructions: TAKE 1 TABLET BY MOUTH EVERY DAY Mounjaro 10 mg/0.5 mL pen injector See Rx Instructions .ROUTE .COMPLEX Qty: 2 1RF Dose Instruction: inject 10mg (0.5ml) SUBCUTANEOUSLY EVERY 7 DAYS Rx Instructions: inject 10mg (0.5ml) SUBCUTANEOUSLY EVERY 7 DAYS metoprolol succinate 25 mg tablet extended release 24 hr 25 mg PO DAILY Qty: 90 3RF pioglitazone 45 mg tablet See Rx Instructions .ROUTE .COMPLEX Qty: 30 2RF Dose Instruction: TAKE 1 TABLET BY MOUTH EVERY DAY Rx Instructions: TAKE 1 TABLET BY MOUTH EVERY DAY diazepam 5 mg tablet 5 mg PO TID Qty: 90 0RF Rx Instructions: Take one tablet by mouth morning, afternoon, and evening, at least 4 hours apart aspirin 81 mg tablet,delayed release (DR/EC) 81 mg PO DAILY acetaminophen [Pain Reliever (acetaminophen)] 500 mg tablet 1,000 mg PO Q6H PRN (Reason: Pain) Jardiance 25 mg tablet 25 mg PO DAILY Biofreeze (menthol) 10 % cream 1 applic topical TID PRN (Reason: muscle pain) Qty: 85 0RF bismuth subsalicylate [Stomach Relief] 262 mg/15 mL suspension 262 mg PO Q4H PRN (Reason: Indigestion) irbesartan 150 mg tablet 150 mg PO DAILY atorvastatin 80 mg tablet 80 mg PO BEDTIME promethazine 25 mg tablet 25 mg PO Q6H PRN (Reason: Nausea And Vomiting) glucose 4 gram Tablet,Chewable 16 g PO PRN PRN (Reason: LOW BLOOD SUGAR) Rx Instructions: for bs lower than 60 ibuprofen 600 mg tablet 600 mg PO TID PRN (Reason: Pain) cetirizine 10 mg Tablet 10 mg PO DAILY PRN (Reason: allergies) Discharge Orders: Discharge ED (Routine); Ordered 11/20/24 Ordered By: Deep Swann Referrals: Bautista Ruiz MD [Primary Care Provider] - 1 week Patient Instructions: Syncope, Hematoma (ED) Activity Restrictions/Additional Instructions: Thank you for choosing [facility] for your healthcare needs today. Please realize that you were seen in the emergency department and that we are providing you with an emergency medical screening exam and this may not be a complete and all exclusive of all testing and/or medical workup we may need to determine your element or severity of your illness. It is very important that you follow-up as instructed with your primary care provider or specialist for the additional evaluation and to discuss your medical treatment plan. You may return to the emergency department should you have concerns or if your condition changes or worsens in any way. Coding Level of Care Code ED Stull Hewer for Dasha Nix
[2024-11-20 22:07] VITALS: BP 126/82; PULSE 92; O2SAT 95
[2024-11-20] MEDS: acetaminophen 500 mg Tablet 1000 MG PO (22:13)
== END 2024-11-20 22:21 | disposition home or self-care (01) ==
PROVIDERS: Emergency Provider Emergency Medicine; PCP Family Medicine
DX: R55 Syncope and collapse (principal); S00.03XA Contusion of scalp, initial encounter; W19.XXXA Unspecified fall, initial encounter; Z79.01 Long term (current) use of anticoagulants; Z79.84 Long term (current) use of oral hypoglycemic drugs; Z79.82 Long term (current) use of aspirin; F17.290 Nicotine dependence, other tobacco product, uncomplicated; E11.42 Type 2 diabetes mellitus with diabetic polyneuropathy; E78.5 Hyperlipidemia, unspecified; I10 Essential (primary) hypertension
CPT/HCPCS: 70450; 71045; 80053; 85025; 93005; 99285

== ENCOUNTER 2024-11-23 22:42 | Emergency (ER) | payer MEDICARE, MEDICAID, SELFPAY ==
[2024-11-23 22:42] VITALS: BP 146/97; PULSE 109; RESP 18; TEMP 36.4; O2SAT 94; BMI 32.0
--- NOTE | 2024-11-23 23:05 | CTR_ITS ---
PROCEDURE INFORMATION: Exam: CT Head Without Contrast Exam date and time: 11/23/2024 11:15 PM Age: 44 years old Clinical indication: Injury or trauma; Fall; Blunt trauma (contusions or hematomas); With loss of consciousness; Loss of consciousness for 30 minutes or less; Injury date: ; Additional info: Fall, head injury, abrasion to forehead, on eliquis TECHNIQUE: Imaging protocol: Computed tomography of the head without contrast. Radiation optimization: All CT scans at this facility use at least one of these dose optimization techniques: automated exposure control; mA and/or kV adjustment per patient size (includes targeted exams where dose is matched to clinical indication); or iterative reconstruction. COMPARISON: CT head wo con* [id number] 11/20/2024 9:03 PM RADIATION DOSE METRICS: Total DLP (mGy-cm): 1163.99 FINDINGS: Brain: No acute intracranial hemorrhage. No abnormal extra-axial fluid collection. No midline shift or mass effect. No acute large territory infarct. Cerebral ventricles: No ventriculomegaly. Paranasal sinuses: Visualized paranasal sinuses are clear. Mastoid air cells: Visualized mastoid air cells are well-aerated. Bones: No acute fracture. Soft tissues: Unremarkable. CT/CT head wo con* [id number] IMPRESSION: No acute intracranial abnormality identified.
--- NOTE | 2024-11-23 23:05 | CTR_ITS ---
PROCEDURE INFORMATION: Exam: CT Cervical Spine Without Contrast Exam date and time: 11/23/2024 11:18 PM Age: 44 years old Clinical indication: Injury or trauma; Fall; Blunt trauma; Additional info: Fall from standing, hit forehead TECHNIQUE: Imaging protocol: Computed tomography of the cervical spine without contrast. Radiation optimization: All CT scans at this facility use at least one of these dose optimization techniques: automated exposure control; mA and/or kV adjustment per patient size (includes targeted exams where dose is matched to clinical indication); or iterative reconstruction. COMPARISON: CT cervical spin wo con* [id number] 07/15/2024 9:26 PM RADIATION DOSE METRICS: Total DLP (mGy-cm): 263.27 FINDINGS: Bones: No acute fracture or subluxation. Mild chronic degenerative changes without severe spinal stenosis. Lungs: Visualized lung apices are clear. Soft tissues: Mild nonspecific subcutaneous edema. Visualized paravertebral soft tissues otherwise unremarkable. CT/CT cervical spin wo con* [id number] IMPRESSION: No acute findings.
--- NOTE | 2024-11-23 23:06 | ED_ITS ---
HPI - Fall 2 General: Chief Complaint: Fall Stated Complaint: FALL Time Seen by Provider: 11/23/24 23:03 Source: patient, family and EMS Mode of arrival: EMS Limitations: no limitations History of Present Illness: 44-year-old male on Eliquis comes in for fall. Has no other complaints other than his forehead. He has an abrasion on his forehead that is mildly oozing blood. Patient reports no LOC. No neck tenderness. Possible alcohol intoxication concern from paramedics. Related Data Home Medications Medication Instructions Recorded Confirmed gabapentin 300 mg capsule 300 mg PO BID 10/11/22 11/11/24 (Neurontin) bismuth subsalicylate 262 mg/15 mL 262 mg PO Q4H PRN Indigestion 03/16/23 11/11/24 oral suspension (Stomach Relief) irbesartan 150 mg tablet 150 mg PO DAILY 03/16/23 11/11/24 acetaminophen 500 mg tablet (Pain 1,000 mg PO Q6H PRN Pain 10/24/23 11/11/24 Reliever (acetaminophen)) aspirin 81 mg tablet,delayed 81 mg PO DAILY 10/24/23 11/11/24 release empagliflozin 25 mg tablet 25 mg PO DAILY 10/24/23 11/11/24 (Jardiance) atorvastatin 80 mg tablet 80 mg PO BEDTIME 12/31/23 11/11/24 glucose 4 gram chewable tablet 16 g PO PRN PRN LOW BLOOD SUGAR 12/31/23 11/11/24 ibuprofen 600 mg tablet 600 mg PO TID PRN Pain 12/31/23 11/11/24 promethazine 25 mg tablet 25 mg PO Q6H PRN Nausea And 12/31/23 11/11/24 Vomiting albuterol sulfate 90 mcg/actuation 2 puff inhalation Q4H PRN 08/05/24 11/11/24 aerosol inhaler Shortness Of Breath icosapent ethyl 1 gram capsule 2 g PO BID 08/05/24 11/11/24 (Vascepa) loperamide 2 mg capsule 2 mg PO Q6H PRN Diarrhea 08/05/24 11/11/24 (Anti-Diarrheal (loperamide)) vitamins A,C,P-znoq-ppekdm 4,296 1 cap PO BID 08/05/24 11/11/24 mcg-226 mg-90 mg capsule (PreserVision AREDS) cetirizine 10 mg tablet 10 mg PO DAILY PRN allergies 10/23/24 11/11/24 insulin lispro 100 unit/mL 5 unit SUBCUT TID PRN 11/11/24 subcutaneous pen (Humalog KwikPen (U-100) Insulin) Previous Rx's Medication Instructions Recorded glucagon HCl 1 mg solution for 1 mg SUBCUT Q20M PRN hypoglycemia 12/17/23 injection (Glucagon (HCl) #1 ea Emergency Kit) apixaban 5 mg tablet (Eliquis) 5 mg PO BID #180 tabs 01/28/24 omeprazole 40 mg capsule,delayed 40 mg PO DAILY #30 caps 04/19/24 release blood-glucose meter,continuous #1 ea 05/14/24 (FreeStyle Stacey 3 Tarkio) blood-glucose sensor (FreeStyle #2 ea 05/14/24 Stacey 3 Sensor device) ondansetron 4 mg disintegrating 4 mg PO Q8H PRN nausea and 07/02/24 tablet vomiting #20 tabs aripiprazole 30 mg tablet 15 mg (1/2 x 30 mg) PO BID 30 days 08/05/24 #30 tabs divalproex 500 mg tablet,extended 2,000 mg (4 x 500 mg) PO BEDTIME 08/05/24 release 24 hr 30 days #120 tabs olanzapine 5 mg disintegrating 5 mg PO BID PRN agitation/anxiety 08/05/24 tablet #60 tabs venlafaxine 150 mg 300 mg (2 x 150 mg) PO QAM 30 days 08/05/24 capsule,extended release 24 hr #60 caps blood-glucose meter,continuous #1 ea 08/13/24 (Dexcom G7 Sieve Grader Tender) blood-glucose sensor (Dexcom G7 #3 ea 08/13/24 Sensor device) menthol 10 % topical cream 1 applic topical TID PRN muscle 09/03/24 (Biofreeze (menthol)) pain #85 grams metformin 1,000 mg tablet See Rx Instructions .Route 09/23/24 .COMPLEX #90 tabs tirzepatide 10 mg/0.5 mL See Rx Instructions .Route 10/23/24 subcutaneous pen injector .COMPLEX #2 mL (Mounjaro) metoprolol succinate 25 mg 25 mg PO DAILY #90 tabs 11/04/24 tablet,extended release 24 hr pioglitazone 45 mg tablet See Rx Instructions .Route 11/17/24 .COMPLEX #30 tabs diazepam 5 mg tablet 5 mg PO TID #90 tabs 11/20/24 Allergies Allergy/AdvReac Type Severity Reaction Status Date / Time No Known Allergies Allergy Verified 11/20/24 20:34 Review of Systems 2 General: Reports: 10 or more systems reviewed and unremarkable except in HPI and below PFSH ED 2 PFSH: Medical History Coronary-myocardial bridge Peripheral neuropathy Type 2 diabetes mellitus Hyperlipidemia Hypertension Pulmonary embolism Other reactions to severe stress Bipolar 1 disorder Most recent episode depressed Fracture of [facility] Surgical History History of appendectomy Social History Smoking and tobacco/nicotine status: current some day tobacco/nicotine user e- cigarettes Alcohol intake: current Alcohol intake frequency: few times a month Substance/Drug Use: never Marital status: Single Physical Exam 2 Const: COMMON NORMALS: no acute distress, average body habitus, patient oriented x3, healthy appearing, alert and well nourished GENERAL APPEARANCE: cooperative, comfortable, well kempt and well developed; not in distress, not anxious and not combative NUTRITIONAL APPEARANCE: obese HENMT: COMMON NORMALS: normocephalic, atraumatic, external ears normal and moist oral mucous membranes HEAD & SCALP: normocephalic and atraumatic HEAD IMAGES: 1. Abrasion to skin with mild bleeding EXTERNAL EAR: Yes external ears normal Eye: COMMON NORMALS: Equal, round and reactive pupils present, EOMs intact bilaterally and conjunctivae normal CONJUNCTIVA: Yes conjunctivae normal P UPIL: Yes Equal, round and reactive pupils present Neck/C-Spine: COMMON NORMALS: full ROM, no lymphadenopathy and supple Chest: CHEST: Yes Symmetrical chest wall rise and No Surgical scars present (Chest) Resp: COMMON NORMALS: normal respiratory effort, No retractions, No use of accessory muscles and clear to auscultation bilaterally AUSCULTATION: clear to auscultation bilaterally Cardio: COMMON NORMALS: regular rate, regular rhythm, S1 normal heart sound present, S2 normal heart sound present, No gallops present (Cardio), No clicks present (Cardio), No murmurs present (Cardio) and No rub (Cardio) RATE: r egular rate RHYTHM: regular rhythm HEART SOUNDS: S1 normal heart sound present, S2 normal heart sound present and no murmurs PERIPHERAL PULSES: o ther (Radial pulses 2+ and symmetric) GI: COMMON NORMALS: Soft to palpation, non-tender and no masses INSPECTION: No abdominal distension PALPATION: Yes Soft to palpation, No Guarding due to palpation present (GI) and No Rebound tenderness present : COMMON NORMALS: Yes no CVA tenderness BLADDER/KIDNEY EXAM: Yes no CVA tenderness Back/Pelvis: COMMON NORMALS: no CVA tenderness Extremity: COMMON NORMALS: normal to inspection, full ROM, capillary refill normal and no clubbing, cyanosis or edema Neuro: COMMON NORMALS: patient oriented x3 SENSORIUM/ORIENTATION: Yes alert Psych: APPEARANCE: Yes well kempt Skin: COMMON NORMALS: no rashes or lesions noted, no wounds, turgor normal and no jaundice GENERAL SKIN EXAM: no rashes or lesions noted and turgor normal Course 2 Vital Signs: Vital signs: Vital Signs Temperature 97.5 F L 11/23/24 22:42 Pulse Rate 97 11/23/24 23:33 Respiratory Rate 18 11/23/24 23:33 Blood Pressure 114/67 11/23/24 23:33 Pulse Oximetry 92 11/23/24 23:33 Oxygen Delivery Me thod Room Air 11/23/24 23:33 MDM - Fall Medical Decision Making CT scan of the head personally reviewed no significant [place], radiology read concurs as well as C-spine is clear. Patient will be discharged in the care of family. Forehead wound has been cleaned and bandaged. Follow-up with primary care. Thankfully no acute injuries. Differential Diagnosis Likely concussion with loss of consciousness and concussion without loss of consciousness Medical Records I reviewed the patient's medical records. Lab Data I reviewed the patient's lab results. Radiology Impressions Cervical Spine CT 11/23/24 23:05 IMPRESSION: No acute findings. Head CT 11/23/24 23:05 IMPRESSION: No acute intracranial abnormality identified. All radiology interpretation(s) finalized by discharge ED provider radiology interpretation(s): see [facility] Discharge Plan Discharge Patient Disposition: Home Clinical Impression: Fall Qualifiers: Encounter type: initial encounter Qualified Code(s): W19.XXXA - Unspecified fall, initial encounter Hematoma of scalp Qualifiers: Encounter type: initial encounter Qualified Code(s): S00.03XA - Contusion of scalp, initial encounter Abrasion of forehead Qualifiers: Encounter type: initial encounter Qualified Code(s): S00.81XA - Abrasion of other part of head, initial encounter Condition: Stable Prescriptions: No Action gabapentin [Neurontin] 300 mg capsule 300 mg PO BID (DME) FreeStyle Stacey 3 Tarkio Misc See Rx Instructions .Route Qty: 1 0RF Rx Instructions: As directed (DME) FreeStyle Stacey 3 Sensor Device See Rx Instructions .Route Qty: 2 3RF Rx Instructions: As directed omeprazole 40 mg capsule,delayed release(DR/EC) 40 mg PO DAILY Qty: 30 0RF loperamide [Anti-Diarrheal (loperamide)] 2 mg capsule 2 mg PO Q6H PRN (Reason: Diarrhea) albuterol sulfate 90 mcg/actuation HFA aerosol inhaler 2 puff inhalation Q4H PRN (Reason: Shortness Of Breath) icosapent ethyl [Vascepa] 1 gram capsule 2 g PO BID PreserVision AREDS 4,296 mcg-226 mg-90 mg capsule 1 cap PO BID aripiprazole 30 mg tablet 15 mg PO BID 30 Days Qty: 30 3RF Rx Instructions: Take one-half tablet twice a day, morning and night time divalproex 500 mg tablet extended release 24 hr 2,000 mg PO BEDTIME 30 Days Qty: 120 3RF Rx Instructions: Take 4 tablets daily at bedtime olanzapine 5 mg tablet,disintegrating 5 mg PO BID PRN (Reason: agitation/anxiety) Qty: 60 3RF Rx Instructions: Take one tablet up to twice daily, if needed for agitation/anxiety venlafaxine 150 mg capsule,extended release 24hr 300 mg PO QAM 30 Days Qty: 60 3RF Rx Instructions: Take two capsules by mouth every morning; stop other doses of this medication insulin lispro [Humalog KwikPen Insulin] 100 unit/mL insulin pen 5 unit SUBCUT TID PRN Rx Instructions: 5units every 4 hours as needed for blood sugars above 400 (DME) Dexcom G7 Sieve Grader Tender Misc See Rx Instructions .Route Qty: 1 0RF Rx Instructions: As directed (DME) Dexcom G7 Sensor Device See Rx Instructions .Route Qty: 3 3RF Rx Instructions: As directed glucagon HCl [Glucagon (HCl) Emergency Kit] 1 mg recon soln 1 mg SUBCUT Q20M PRN (Reason: hypoglycemia) Qty: 1 1RF Rx Instructions: until target blood sugar attained Eliquis 5 mg tablet 5 mg PO BID Qty: 180 3RF ondansetron 4 mg tablet,disintegrating 4 mg PO Q8H PRN (Reason: nausea and vomiting) Qty: 20 0RF metformin 1,000 mg tablet See Rx Instructions .ROUTE .COMPLEX Qty: 90 0RF Dose Instruction: TAKE 1 TABLET BY MOUTH EVERY DAY Rx Instructions: TAKE 1 TABLET BY MOUTH EVERY DAY Mounjaro 10 mg/0.5 mL pen injector See Rx Instructions .ROUTE .COMPLEX Qty: 2 1RF Dose Instruction: inject 10mg (0.5ml) SUBCUTANEOUSLY EVERY 7 DAYS Rx Instructions: inject 10mg (0.5ml) SUBCUTANEOUSLY EVERY 7 DAYS metoprolol succinate 25 mg tablet extended release 24 hr 25 mg PO DAILY Qty: 90 3RF pioglitazone 45 mg tablet See Rx Instructions .ROUTE .COMPLEX Qty: 30 2RF Dose Instruction: TAKE 1 TABLET BY MOUTH EVERY DAY Rx Instructions: TAKE 1 TABLET BY MOUTH EVERY DAY diazepam 5 mg tablet 5 mg PO TID Qty: 90 0RF Rx Instructions: Take one tablet by mouth morning, afternoon, and evening, at least 4 hours apart aspirin 81 mg tablet,delayed release (DR/EC) 81 mg PO DAILY acetaminophen [Pain Reliever (acetaminophen)] 500 mg tablet 1,000 mg PO Q6H PRN (Reason: Pain) Jardiance 25 mg tablet 25 mg PO DAILY Biofreeze (menthol) 10 % cream 1 applic topical TID PRN (Reason: muscle pain) Qty: 85 0RF bismuth subsalicylate [Stomach Relief] 262 mg/15 mL suspension 262 mg PO Q4H PRN (Reason: Indigestion) irbesartan 150 mg tablet 150 mg PO DAILY atorvastatin 80 mg tablet 80 mg PO BEDTIME promethazine 25 mg tablet 25 mg PO Q6H PRN (Reason: Nausea And Vomiting) glucose 4 gram Tablet,Chewable 16 g PO PRN PRN (Reason: LOW BLOOD SUGAR) Rx Instructions: for bs lower than 60 ibuprofen 600 mg tablet 600 mg PO TID PRN (Reason: Pain) cetirizine 10 mg Tablet 10 mg PO DAILY PRN (Reason: allergies) Discharge Orders: Discharge ED (Routine); Ordered 11/24/24 Ordered By: Alexey Beltrán Referrals: Bautista Ruiz MD [Primary Care Provider] - Discharge Diet: Usual diet Discharge Activity: Resume usual activity and Increase activity as tolerated Patient Instructions: Fall Prevention (ED) Coding Level of Care Code ED Hand Rug Cleaner for Dasha Nix
[2024-11-23 23:09] VITALS: BP 112/70; PULSE 96; RESP 16; O2SAT 95
--- NOTE | 2024-11-23 23:13 | PC.NURSE ---
NURSE WAS IN ROOM TO ASSESS PT. PT WOULD NOT COMMUNICATE VERBALLY BUT [facility] AT BEDSIDE DID ANSWER QUESTIONS FOR PT.
[2024-11-23 23:33] VITALS: BP 114/67; PULSE 97; RESP 18; O2SAT 92
[2024-11-24 00:14] VITALS: BP 121/78; PULSE 90; RESP 16; O2SAT 93
== END 2024-11-24 00:23 | disposition home or self-care (01) ==
PROVIDERS: Emergency Provider Emergency Medicine; PCP Family Medicine
DX: S00.81XA Abrasion of other part of head, initial encounter (principal); S00.03XA Contusion of scalp, initial encounter; W19.XXXA Unspecified fall, initial encounter; Z79.4 Long term (current) use of insulin; Z79.01 Long term (current) use of anticoagulants; Z79.84 Long term (current) use of oral hypoglycemic drugs; F17.290 Nicotine dependence, other tobacco product, uncomplicated; E11.42 Type 2 diabetes mellitus with diabetic polyneuropathy; I10 Essential (primary) hypertension; E78.5 Hyperlipidemia, unspecified
CPT/HCPCS: 70450; 72125; 99284

== ENCOUNTER → 2024-12-02 09:52 | Outpatient (BNVA) | payer MEDICARE, OTHER, SELFPAY | PROVIDERS: PCP Family Medicine; Visit Provider Podiatrist Foot & Ankle Surgery | DX: L60.3 Nail dystrophy (principal); E11.42 Type 2 diabetes mellitus with diabetic polyneuropathy; Z79.4 Long term (current) use of insulin; Z79.84 Long term (current) use of oral hypoglycemic drugs | CPT/HCPCS: 11721 ==

== ENCOUNTER 2024-12-04 21:48 | Emergency (ER) | payer MEDICARE, MEDICAID, SELFPAY ==
[2024-12-04 21:49] VITALS: BP 145/92; PULSE 117; RESP 16; TEMP 36.5; O2SAT 92
--- NOTE | 2024-12-04 21:53 | CTR_ITS ---
PROCEDURE INFORMATION: Exam: CT Cervical Spine Without Contrast Exam date and time: 12/04/2024 10:05 PM Age: 44 years old Clinical indication: Injury or trauma; Fall; Other: Passed out; Additional info: Fall neck pain, talked to Dr jackson at [id number], meant to put in cervical spine instead of soft TECHNIQUE: Imaging protocol: Computed tomography of the cervical spine without contrast. Radiation optimization: All CT scans at this facility use at least one of these dose optimization techniques: automated exposure control; mA and/or kV adjustment per patient size (includes targeted exams where dose is matched to clinical indication); or iterative reconstruction. COMPARISON: CT cervical spin wo con* [id number] 11/23/2024 11:18 PM RADIATION DOSE METRICS: Total DLP (mGy-cm): 221.47 FINDINGS: Bones: No acute fracture. Normal alignment. No significant disc bulge or herniation. No severe spinal canal stenosis. No significant neural foraminal narrowing. Lungs: Lung apices are normal. Soft tissues: Unremarkable. CT/CT cervical spin wo con* [id number] IMPRESSION: No acute fracture or traumatic malalignment of the cervical spine.
--- NOTE | 2024-12-04 21:53 | CTR_ITS ---
PROCEDURE INFORMATION: Exam: CT Head Without Contrast Exam date and time: 12/04/2024 10:02 PM Age: 44 years old Clinical indication: Injury or trauma; Fall; Other: Passed out; Additional info: Fall posterior head pain positive loc TECHNIQUE: Imaging protocol: Computed tomography of the head without contrast. Radiation optimization: All CT scans at this facility use at least one of these dose optimization techniques: automated exposure control; mA and/or kV adjustment per patient size (includes targeted exams where dose is matched to clinical indication); or iterative reconstruction. COMPARISON: CT head wo con* [id number] 11/23/2024 11:15 PM RADIATION DOSE METRICS: Total DLP (mGy-cm): 1177.29 FINDINGS: Brain: Normal. No hemorrhage. Unremarkable white matter. No mass effect. Cerebral ventricles: No ventriculomegaly. Paranasal sinuses: Visualized sinuses are unremarkable. No fluid levels. Mastoid air cells: Visualized mastoid air cells are well aerated. Bones: Unremarkable. No acute fracture. Soft tissues: Small area of vertex scalp swelling. CT/CT head wo con* [id number] IMPRESSION: No acute intracranial process. Vertex scalp swelling.
[2024-12-04 22:03] LABS: Basophils % 0.5 %; Eosinophils # 0.1 10^3/uL (0.0-0.8); Lymphocytes # 2.8 10^3/uL (0.8-4.8); Lymphocytes % 45.8 %; Mean Corpuscular HGB Conc 32.4 g/dL (30-55); Mean Corpuscular Hemoglobin 28.4 pg (27-33); Mean Corpuscular Volume 87.8 fl (82-101); Mean Platelet Volume 9.9 fL (7.4-10.4); Monocytes # 0.4 10^3/uL (0.2-0.9); Monocytes % 6.5 %; Neutrophils # 2.79 10^3/uL (1.8-7.7); Neutrophils % 45.5 %; Nucleated Red Blood Cells % 0 %; Platelet Count 320 10^3/cmm (157-399); Red Blood Count 5.24 10^6/uL (3.85-5.65); Red Cell Distribution Width 14.9 % (12.1-15.1); White Blood Count 6.12 10^3/uL (3.29-11.43)
[2024-12-04 22:17] LABS: Alanine Aminotransferase 16 U/L (0-41); Alkaline Phosphatase 124 U/L (40-130); Anion Gap 17.1 (5-19); Aspartate Amino Transferase 13 U/L (0-40); Blood Urea Nitrogen 17 mg/dL (6-20); Calcium 8.8 mg/dL (8.5-10.5); Carbon Dioxide 27 mmol/L (22-29); Chloride 94 mmol/L (98-107); Globulin 2.3 g/dL (1.3-4.6); Glomerular Filtration Rate 104.5 mL/min (90-130); Glucose 384 mg/dL (65-115); Osmolality Calculated 295 mOsm/kg (285-295); Potassium 4.1 mmol/L (3.5-5.1); Sodium 134 mmol/L (136-145); Total Bilirubin 0.2 mg/dL (0.15-1.2); Total Protein 6.3 g/dL (6.6-8.7)
--- NOTE | 2024-12-04 22:27 | ED_ITS ---
HPI - Syncope 2 General: Chief Complaint: Syncope Stated Complaint: fall Time Seen by Provider: 12/04/24 21:51 History of Present Illness: Patient arrives to the ER by EMS for syncopal episode and fall. Patient was standing or peeling a large and fell backwards onto his back and hit his head. Patient is complaining of posterior head pain and neck pain. Patient to the ER in c-collar. Staff report that they thought his blood sugar was in the 100s but is actually in the 400s. Patient may have an issue with his glucometer. Patient is known to the ER does have multiple falls. Related Data Home Medications Medication Instructions Recorded Confirmed gabapentin 300 mg capsule 300 mg PO BID 10/11/22 12/02/24 (Neurontin) bismuth subsalicylate 262 mg/15 mL 262 mg PO Q4H PRN Indigestion 03/16/23 12/02/24 oral suspension (Stomach Relief) irbesartan 150 mg tablet 150 mg PO DAILY 03/16/23 12/02/24 acetaminophen 500 mg tablet (Pain 1,000 mg PO Q6H PRN Pain 10/24/23 12/02/24 Reliever (acetaminophen)) aspirin 81 mg tablet,delayed 81 mg PO DAILY 10/24/23 12/02/24 release empagliflozin 25 mg tablet 25 mg PO DAILY 10/24/23 12/02/24 (Jardiance) atorvastatin 80 mg tablet 80 mg PO BEDTIME 12/31/23 12/02/24 glucose 4 gram chewable tablet 16 g PO PRN PRN LOW BLOOD SUGAR 12/31/23 12/02/24 ibuprofen 600 mg tablet 600 mg PO TID PRN Pain 12/31/23 12/02/24 promethazine 25 mg tablet 25 mg PO Q6H PRN Nausea And 12/31/23 12/02/24 Vomiting albuterol sulfate 90 mcg/actuation 2 puff inhalation Q4H PRN 08/05/24 12/02/24 aerosol inhaler Shortness Of Breath icosapent ethyl 1 gram capsule 2 g PO BID 08/05/24 12/02/24 (Vascepa) loperamide 2 mg capsule 2 mg PO Q6H PRN Diarrhea 08/05/24 12/02/24 (Anti-Diarrheal (loperamide)) vitamins A,C,S-hfza-pmnigy 4,296 1 cap PO BID 08/05/24 12/02/24 mcg-226 mg-90 mg capsule (PreserVision AREDS) cetirizine 10 mg tablet 10 mg PO DAILY PRN allergies 10/23/24 12/02/24 insulin lispro 100 unit/mL 5 unit SUBCUT TID PRN 11/11/24 12/02/24 subcutaneous pen (Humalog KwikPen (U-100) Insulin) neomycin-bacitracn Zn-polymyx 3.5 1 applic topical ONCE PRN 11/27/24 12/02/24 mg-400 unit-5,000 unit/gram top oint (Triple Antibiotic) Previous Rx's Medication Instructions Recorded apixaban 5 mg tablet (Eliquis) 5 mg PO BID #180 tabs 01/28/24 omeprazole 40 mg capsule,delayed 40 mg PO DAILY #30 caps 04/19/24 release blood-glucose meter,continuous #1 ea 05/14/24 (FreeStyle Stacey 3 Enterprise) blood-glucose sensor (FreeStyle #2 ea 05/14/24 Stacey 3 Sensor device) ondansetron 4 mg disintegrating 4 mg PO Q8H PRN nausea and 07/02/24 tablet vomiting #20 tabs olanzapine 5 mg disintegrating 5 mg PO BID PRN agitation/anxiety 08/05/24 tablet #60 tabs blood-glucose meter,continuous #1 ea 08/13/24 (Dexcom G7 Cherry Grower) blood-glucose sensor (Dexcom G7 #3 ea 08/13/24 Sensor device) menthol 10 % topical cream 1 applic topical TID PRN muscle 09/03/24 (Biofreeze (menthol)) pain #85 grams metformin 1,000 mg tablet See Rx Instructions .Route 09/23/24 .COMPLEX #90 tabs tirzepatide 10 mg/0.5 mL See Rx Instructions .Route 10/23/24 subcutaneous pen injector .COMPLEX #2 mL (Mounjaro) metoprolol succinate 25 mg 25 mg PO DAILY #90 tabs 11/04/24 tablet,extended release 24 hr pioglitazone 45 mg tablet See Rx Instructions .Route 11/17/24 .COMPLEX #30 tabs aripiprazole 30 mg tablet 15 mg (1/2 x 30 mg) PO BID 30 days 11/27/24 #30 tabs divalproex 500 mg tablet,extended 2,000 mg (4 x 500 mg) PO BEDTIME 11/27/24 release 24 hr 30 days #120 tabs venlafaxine 150 mg 300 mg (2 x 150 mg) PO QAM 30 days 11/27/24 capsule,extended release 24 hr #60 caps diazepam 5 mg tablet 5 mg PO TID #90 tabs 11/30/24 glucagon 1 mg solution for See Rx Instructions .Route 12/02/24 injection (Glucagon Emergency Kit) .COMPLEX #1 ea Allergies Allergy/AdvReac Type Severity Reaction Status Date / Time No Known Allergies Allergy Verified 12/02/24 09:56 Review of Systems 2 General: Reports: 10 or more systems reviewed and unremarkable except in HPI and below PFSH ED 2 PFSH: Medical History Coronary-myocardial bridge Peripheral neuropathy Type 2 diabetes mellitus Hyperlipidemia Hypertension Pulmonary embolism Other reactions to severe stress Bipolar 1 disorder Most recent episode depressed Fracture of [facility] Surgical History History of appendectomy Social History Smoking and tobacco/nicotine status: current some day tobacco/nicotine user (some vaping) e-cigarettes Alcohol intake: current Alcohol intake frequency: few times a month Substance/Drug Use: never Marital status: Single Physical Exam 2 Const: COMMON NORMALS: no acute distress, average body habitus, patient oriented x3, no limitations, healthy appearing, alert and well nourished HENMT: COMMON NORMALS: normocephalic, atraumatic, hearing grossly normal bilaterally, external ears normal, Normal external nose present and moist oral mucous membranes HEAD & SCALP: normocephalic and atraumatic NOSE: Normal external nose present EXTERNAL EAR: Yes external ears normal Neck/C-Spine: COMMON NORMALS: no JVD OTHER: In c-collar Chest: COMMONS NORMALS: normal inspection of the chest and normal palpation of entire chest wall Resp: COMMON NORMALS: normal respiratory effort, No retractions, No use of accessory muscles and clear to auscultation bilaterally AUSCULTATION: clear to auscultation bilaterally Cardio: COMMON NORMALS: no JVD, regular rate, regular rhythm, S1 normal heart sound present, S2 normal heart sound present, No gallops present (Cardio), No clicks present (Cardio), No murmurs present (Cardio) and No rub (Cardio) R ATE: regular rate RHYTHM: regular rhythm HEART SOUNDS: S1 normal heart sound present and S2 normal heart sound present GI: COMMON NORMALS: Normal to inspection, nondistended, normoactive bowel sounds present, Soft to palpation, non-tender, No hepatosplenomegaly present and no masses PALPATION: Yes Soft to palpation and Yes No hepatosplenomegaly present Neuro: COMMON NORMALS: patient oriented x3 SENSORIUM/ORIENTATION: Yes alert Course 2 Vital Signs: Vital signs: Vital Signs Temperature 97.7 F 12/04/24 21:49 Pulse Rate 117 H 12/04/24 21:49 Respiratory Rate 16 12/04/24 21:49 Blood Pressure 145/92 12/04/24 21:49 Pulse Oximetry 92 12/04/24 21:49 Oxygen Delivery Me thod Room Air 12/04/24 21:49 MDM - Syncope Medical Decision Making Patient lab work is unremarkable other than a glucose of 384, EKG showed sinus tach at 107, CT scan of cervical spine and head showed no acute processes. Patient will be discharged back to his facility. Medical Records I reviewed the patient's medical records. Lab Data I reviewed the patient's lab results. 12/04/24 21:36 12/04/24 21:36 Radiology Impressions Cervical Spine CT 12/04/24 21:53 IMPRESSION: No acute fracture or traumatic malalignment of the cervical spine. Head CT 12/04/24 21:53 IMPRESSION: No acute intracranial process. Vertex scalp swelling. Laboratory Results WBC 6.12 10^3/uL (3.29-11.43) 12/04/24 21:36 RBC 5.24 10^6/uL (3.85-5.65) 12/04/24 21:36 Hgb 14.90 g/dL (11.27-16.99) 12/04/24 21:36 Hct 46.0 % (37-53) 12/04/24 21:36 MCV 87.8 fl (82-101) 12/04/24 21:36 MCH 28.4 pg (27-33) 12/04/24 21:36 MCHC 32.4 g/dL (30-55) 12/04/24 21:36 RDW 14.9 % (12.1-15.1) 12/04/24 21:36 Plt Count 320 10^3/cmm (157-399) 12/04/24 21:36 MPV 9.9 fL (7.4-10.4) 12/04/24 21:36 Neut % (Auto) 45.5 % 12/04/24 21:36 Lymph % (Auto) 45.8 % 12/04/24 21:36 Swisher % (Auto) 6.5 % 12/04/24 21:36 Eos % (Auto) 1.0 % 12/04/24 21:36 Baso % (Auto) 0.5 % 12/04/24 21:36 Neut # (Auto) 2.79 10^3/uL (1.8-7.7) 12/04/24 21:36 Lymph # (Auto) 2.8 10^3/uL (0.8-4.8) 12/04/24 21:36 Swisher # (Auto) 0.4 10^3/uL (0.2-0.9) 12/04/24 21:36 Eos # (Auto) 0.1 10^3/uL (0.0-0.8) 12/04/24 21:36 Baso # (Auto) 0.0 10^3/uL (0.0-0.1) 12/04/24 21:36 Nucleated RBC % (auto) 0 % 12/04/24 21:36 Nucleated RBCs # 0.0 /100WBC 12/04/24 21:36 Sodium 134 mmol/L (136-145) L 12/04/24 21:36 Potassium 4.1 mmol/L (3.5-5.1) 12/04/24 21:36 Chloride 94 mmol/L (98-107) L 12/04/24 21:36 Carbon Dioxide 27 mmol/L (22-29) 12/04/24 21:36 Anion Gap 17.1 (5-19) 12/04/24 21:36 BUN 17 mg/dL (6-20) 12/04/24 21:36 Creatinine 0.8 mg/dL (0.7-1.2) 12/04/24 21:36 GFR Calculation 104.5 mL/min (90-130) 12/04/24 21:36 Glucose 384 mg/dL (65-115) H 12/04/24 21:36 Calculated Osmolality 295 mOsm/kg (285-295) 12/04/24 21:36 Calcium 8.8 mg/dL (8.5-10.5) 12/04/24 21:36 Total Bilirubin 0.2 mg/dL (0.15-1.2) 12/04/24 21:36 AST 13 U/L (0-40) 12/04/24 21:36 ALT 16 U/L (0-41) 12/04/24 21:36 Alkaline Phosphatase 124 U/L (40-130) 12/04/24 21:36 Total Protein 6.3 g/dL (6.6-8.7) L 12/04/24 21:36 Albumin 4.0 g/dL (3.5-5.2) 12/04/24 21:36 Globulin 2.3 g/dL (1.3-4.6) 12/04/24 21:36 All radiology interpretation(s) finalized by discharge Discharge Plan Discharge Patient Disposition: Home Clinical Impression: Syncope, Contusion of head, Acute neck pain Condition: Stable Prescriptions: No Action gabapentin [Neurontin] 300 mg capsule 300 mg PO BID (DME) FreeStyle Stacey 3 Enterprise Misc See Rx Instructions .Route Qty: 1 0RF Rx Instructions: As directed (DME) FreeStyle Stacey 3 Sensor Device See Rx Instructions .Route Qty: 2 3RF Rx Instructions: As directed omeprazole 40 mg capsule,delayed release(DR/EC) 40 mg PO DAILY Qty: 30 0RF loperamide [Anti-Diarrheal (loperamide)] 2 mg capsule 2 mg PO Q6H PRN (Reason: Diarrhea) albuterol sulfate 90 mcg/actuation HFA aerosol inhaler 2 puff inhalation Q4H PRN (Reason: Shortness Of Breath) icosapent ethyl [Vascepa] 1 gram capsule 2 g PO BID PreserVision AREDS 4,296 mcg-226 mg-90 mg capsule 1 cap PO BID olanzapine 5 mg tablet,disintegrating 5 mg PO BID PRN (Reason: agitation/anxiety) Qty: 60 3RF Rx Instructions: Take one tablet up to twice daily, if needed for agitation/anxiety Triple Antibiotic 3.5mg-400 unit- 5,000 unit/gram ointment 1 applic topical ONCE PRN venlafaxine 150 mg capsule,extended release 24hr 300 mg PO QAM 30 Days Qty: 60 3RF Rx Instructions: Take two capsules by mouth every morning aripiprazole 30 mg tablet 15 mg PO BID 30 Days Qty: 30 3RF Rx Instructions: Take one-half tablet twice a day, morning and night time divalproex 500 mg tablet extended release 24 hr 2,000 mg PO BEDTIME 30 Days Qty: 120 3RF Rx Instructions: Take 4 tablets daily at bedtime diazepam 5 mg tablet 5 mg PO TID Qty: 90 1RF Rx Instructions: Take one tablet by mouth morning, afternoon, and evening, at least 4 hours apart insulin lispro [Humalog KwikPen Insulin] 100 unit/mL insulin pen 5 unit SUBCUT TID PRN Rx Instructions: 5units every 4 hours as needed for blood sugars above 400 (DME) Dexcom G7 Cherry Grower Misc See Rx Instructions .Route Qty: 1 0RF Rx Instructions: As directed (DME) Dexcom G7 Sensor Device See Rx Instructions .Route Qty: 3 3RF Rx Instructions: As directed Eliquis 5 mg tablet 5 mg PO BID Qty: 180 3RF ondansetron 4 mg tablet,disintegrating 4 mg PO Q8H PRN (Reason: nausea and vomiting) Qty: 20 0RF metformin 1,000 mg tablet See Rx Instructions .ROUTE .COMPLEX Qty: 90 0RF Dose Instruction: TAKE 1 TABLET BY MOUTH EVERY DAY Rx Instructions: TAKE 1 TABLET BY MOUTH EVERY DAY Mounjaro 10 mg/0.5 mL pen injector See Rx Instructions .ROUTE .COMPLEX Qty: 2 1RF Dose Instruction: inject 10mg (0.5ml) SUBCUTANEOUSLY EVERY 7 DAYS Rx Instructions: inject 10mg (0.5ml) SUBCUTANEOUSLY EVERY 7 DAYS metoprolol succinate 25 mg tablet extended release 24 hr 25 mg PO DAILY Qty: 90 3RF pioglitazone 45 mg tablet See Rx Instructions .ROUTE .COMPLEX Qty: 30 2RF Dose Instruction: TAKE 1 TABLET BY MOUTH EVERY DAY Rx Instructions: TAKE 1 TABLET BY MOUTH EVERY DAY Glucagon Emergency Kit (human) 1 mg recon soln See Rx Instructions .ROUTE .COMPLEX Qty: 1 0RF Dose Instruction: inject 1mg SUBCUTANEOUSLY EVERY 20 MINUTES NEEDED FOR hypoglycemia UNTIL target blood sugar attained Rx Instructions: inject 1mg SUBCUTANEOUSLY EVERY 20 MINUTES NEEDED FOR hypoglycemia UNTIL target blood sugar attained aspirin 81 mg tablet,delayed release (DR/EC) 81 mg PO DAILY acetaminophen [Pain Reliever (acetaminophen)] 500 mg tablet 1,000 mg PO Q6H PRN (Reason: Pain) Jardiance 25 mg tablet 25 mg PO DAILY Biofreeze (menthol) 10 % cream 1 applic topical TID PRN (Reason: muscle pain) Qty: 85 0RF bismuth subsalicylate [Stomach Relief] 262 mg/15 mL suspension 262 mg PO Q4H PRN (Reason: Indigestion) irbesartan 150 mg tablet 150 mg PO DAILY atorvastatin 80 mg tablet 80 mg PO BEDTIME promethazine 25 mg tablet 25 mg PO Q6H PRN (Reason: Nausea And Vomiting) glucose 4 gram Tablet,Chewable 16 g PO PRN PRN (Reason: LOW BLOOD SUGAR) Rx Instructions: for bs lower than 60 ibuprofen 600 mg tablet 600 mg PO TID PRN (Reason: Pain) cetirizine 10 mg Tablet 10 mg PO DAILY PRN (Reason: allergies) Discharge Orders: Discharge ED (Routine); Ordered 12/04/24 Ordered By: Deep Swann Referrals: Bautsita Ruiz MD [Primary Care Provider] - 1 week Patient Instructions: Syncope, Scalp Contusion in Adults (ED) Activity Restrictions/Additional Instructions: Your lab work and CT scans in ER did not show any acute changes other than your glucose being 384. There were no fractures or no bleeds. Please follow-up with your family practice physician for further evaluation treatment as needed. Thank you for choosing [facility] for your healthcare needs today. Please realize that you were seen in the emergency department and that we are providing you with an emergency medical screening exam and this may not be a complete and all exclusive of all testing and/or medical workup we may need to determine your element or severity of your illness. It is very important that you follow-up as instructed with your primary care provider or specialist for the additional evaluation and to discuss your medical treatment plan. You may return to the emergency department should you have concerns or if your condition changes or worsens in any way. Coding Level of Care Code ED Lead Custodian for Dasha Nix
--- NOTE | 2024-12-04 22:34 | ECG_ITS ---
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 Measurements Intervals [place] Rate: 107 P: 52 IA: 193 QRS: 0 QRSD: 106 T: 32 QT: 323 QTc: 432 Interpretive Statements SINUS TACHYCARDIA ANTEROSEPTAL MYOCARDIAL INFARCTION , OF INDETERMINATE AGE [40+ ms Q WAVE IN V1-V4] Compared to ECG 11/20/2024 20:34:02 No significant changes Electronically Signed On 12-06-2024 13:21:26 PROP SETTER by Skinny Talbert M.D. [id number]
[2024-12-04 23:13] VITALS: BP 138/84; PULSE 110; RESP 16; O2SAT 92
== END 2024-12-04 23:15 | disposition home or self-care (01) ==
PROVIDERS: Emergency Provider Emergency Medicine; PCP Family Medicine
DX: R55 Syncope and collapse (principal); M54.2 Cervicalgia; S00.93XA Contusion of unspecified part of head, initial encounter; Z79.4 Long term (current) use of insulin; Z79.01 Long term (current) use of anticoagulants; Z79.84 Long term (current) use of oral hypoglycemic drugs; Z79.82 Long term (current) use of aspirin; F17.290 Nicotine dependence, other tobacco product, uncomplicated; I10 Essential (primary) hypertension; E78.5 Hyperlipidemia, unspecified; E11.42 Type 2 diabetes mellitus with diabetic polyneuropathy; W19.XXXA Unspecified fall, initial encounter
CPT/HCPCS: 70450; 72125; 80053; 85025; 93005; 99284

== ENCOUNTER → 2024-12-19 09:09 | Outpatient (BNVA) | payer MEDICARE, SELFPAY | PROVIDERS: PCP Family Medicine; Visit Provider Nurse Practitioner Psychiatric/Mental Health | DX: Z79.899 Other long term (current) drug therapy (principal); F63.81 Intermittent explosive disorder; Z51.81 Encounter for therapeutic drug level monitoring | CPT/HCPCS: 80053; 80061; 80164; 83036 ==

== ENCOUNTER → 2024-12-30 12:56 | Outpatient (BNVA) | payer MEDICARE, SELFPAY | PROVIDERS: PCP Family Medicine; Visit Provider Specialist | DX: S09.90XA Unspecified injury of head, initial encounter (principal); R29.6 Repeated falls; R26.9 Unspecified abnormalities of gait and mobility; E11.9 Type 2 diabetes mellitus without complications; Z79.4 Long term (current) use of insulin; X58.XXXA Exposure to other specified factors, initial encounter | CPT/HCPCS: 99215 ==

== ENCOUNTER 2025-01-09 22:16 | Emergency (ER) | payer MEDICARE, MEDICAID, SELFPAY ==
--- NOTE | 2025-01-09 22:13 | ECG_ITS ---
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 Measurements Intervals [place] Rate: 118 P: 11 MS: 175 QRS: 134 QRSD: 122 T: 29 QT: 310 QTc: 435 Interpretive Statements SINUS TACHYCARDIA POSSIBLE RIGHT VENTRICULAR HYPERTROPHY [SOME/ALL OF: PROMINENT R IN V1, LATE TRANSITION, RAD, JUAN, SSS] ANTEROSEPTAL MYOCARDIAL INFARCTION , OF INDETERMINATE AGE [40+ ms Q WAVE IN V1-V4] Compared to ECG 12/04/2024 22:34:01 No significant changes Electronically Signed On 01-10-2025 17:58:53 GAS APPLIANCE REPAIRER by Skinny Talbert M.D. [id number]
--- NOTE | 2025-01-09 22:20 | XRR_ITS ---
PROCEDURE INFORMATION: Exam: XR Chest Exam date and time: 01/10/2025 1:35 AM Age: 44 years old Clinical indication: Chest pressure; C/O chest pain; Additional info: Cp TECHNIQUE: Imaging protocol: Radiologic exam of the chest. Views: 1 view. COMPARISON: CR (CHEST, ) 11/20/2024 9:02 PM FINDINGS: Lungs: Unremarkable. No consolidation. Pleural spaces: Unremarkable. No pleural effusion. No pneumothorax. Heart/Mediastinum: Unremarkable. No cardiomegaly. Bones/joints: Unremarkable. XR/XR chest 1V portable [id number] IMPRESSION: No acute findings.
[2025-01-09 22:26] LABS: Basophils % 0.5 %; Eosinophils # 0.1 10^3/uL (0.0-0.8); Eosinophils % 0.8 %; Hematocrit 51.5 % (37-53); Lymphocytes # 3.1 10^3/uL (0.8-4.8); Lymphocytes % 49.6 %; Mean Corpuscular HGB Conc 32.6 g/dL (30-55); Mean Corpuscular Hemoglobin 28.7 pg (27-33); Mean Corpuscular Volume 87.9 fl (82-101); Mean Platelet Volume 10.2 fL (7.4-10.4); Monocytes # 0.4 10^3/uL (0.2-0.9); Monocytes % 5.7 %; Neutrophils # 2.69 10^3/uL (1.8-7.7); Neutrophils % 42.9 %; Nucleated Red Blood Cells % 0 %; Platelet Count 202 10^3/cmm (157-399); Red Blood Count 5.86 10^6/uL (3.85-5.65); White Blood Count 6.27 10^3/uL (3.29-11.43)
[2025-01-09 22:40] VITALS: BP 143/84; PULSE 112; RESP 18; TEMP 36.6; O2SAT 96
[2025-01-09 22:45] LABS: Troponin(5th) Baseline 7 ng/L (0-15)
[2025-01-09 22:58] LABS: Anion Gap 13.1 (5-19); Blood Urea Nitrogen 13 mg/dL (6-20); Calcium 9.3 mg/dL (8.5-10.5); Carbon Dioxide 32 mmol/L (22-29); Chloride 95 mmol/L (98-107); Glomerular Filtration Rate 104.5 mL/min (90-130); Glucose 426 mg/dL (65-115); Osmolality Calculated 300 mOsm/kg (285-295); Potassium 4.1 mmol/L (3.5-5.1); Sodium 136 mmol/L (136-145)
--- NOTE | 2025-01-10 00:23 | ECG_ITS ---
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 Measurements Intervals [place] Rate: 101 P: 26 PA: 168 QRS: 83 QRSD: 102 T: 27 QT: 320 QTc: 415 Interpretive Statements SINUS TACHYCARDIA ANTEROSEPTAL MYOCARDIAL INFARCTION , OF INDETERMINATE AGE [40+ ms Q WAVE IN V1-V4] Compared to ECG 01/09/2025 22:13:06 No significant changes Electronically Signed On 01-10-2025 19:27:58 UTILITIES SERVICE INVESTIGATOR by Skinny Talbert M.D. [email or web address]
[2025-01-10 01:06] LABS: Troponin 5 2HR 6.16 ng/L (0-15); Troponin 5 2HR Delta -0.84 ABS# (0-10)
[2025-01-10 02:09] VITALS: BP 108/60; PULSE 86; O2SAT 92
--- NOTE | 2025-01-10 02:09 | W.ED.CHESTPA ---
HPI - Chest Pain General: Chief Complaint: Chest Pain Stated Complaint: cp Time Seen by Provider: 01/10/25 02:04 History of Present Illness: Patient presents to the ER by EMS with complaints of substernal chest pain that is nonradiating started about an hour prior to arrival. Patient was given 324 mg aspirin 4 mg Zofran en route by the EMS. Patient denies any shortness of breath diaphoresis. Patient denies any coughs colds fevers chills. Patient is currently on Eliquis. Related Data Home Medications ?Medication ?Instructions ?Recorded ?Confirmed gabapentin 300 mg capsule 300 mg PO BID 10/11/22 01/01/25 (Neurontin) bismuth subsalicylate 262 mg/15 mL 262 mg PO Q4H PRN Indigestion 03/16/23 01/01/25 oral suspension (Stomach Relief) irbesartan 150 mg tablet 150 mg PO DAILY 03/16/23 01/01/25 acetaminophen 500 mg tablet (Pain 1,000 mg PO Q6H PRN Pain 10/24/23 01/01/25 Reliever (acetaminophen)) aspirin 81 mg tablet,delayed 81 mg PO DAILY 10/24/23 01/01/25 release empagliflozin 25 mg tablet 25 mg PO DAILY 10/24/23 01/01/25 (Jardiance) atorvastatin 80 mg tablet 80 mg PO BEDTIME 12/31/23 01/01/25 glucose 4 gram chewable tablet 16 g PO PRN PRN LOW BLOOD SUGAR 12/31/23 01/01/25 ibuprofen 600 mg tablet 600 mg PO TID PRN Pain 12/31/23 01/01/25 promethazine 25 mg tablet 25 mg PO Q6H PRN Nausea And 12/31/23 01/01/25 Vomiting albuterol sulfate 90 mcg/actuation 2 puff inhalation Q4H PRN 08/05/24 01/01/25 aerosol inhaler Shortness Of Breath icosapent ethyl 1 gram capsule 2 g PO BID 08/05/24 01/01/25 (Vascepa) loperamide 2 mg capsule 2 mg PO Q6H PRN Diarrhea 08/05/24 01/01/25 (Anti-Diarrheal (loperamide)) vitamins A,C,J-vfpp-ebsrut 4,296 1 cap PO BID 10/01/24 02/27/25 mcg-226 mg-90 mg capsule (PreserVision AREDS) cetirizine 10 mg tablet 10 mg PO DAILY PRN allergies 10/23/24 01/01/25 insulin lispro 100 unit/mL 5 unit SUBCUT TID PRN 11/11/24 01/01/25 subcutaneous pen (Humalog KwikPen (U-100) Insulin) neomycin-bacitracn Zn-polymyx 3.5 1 applic topical ONCE PRN 11/27/24 01/01/25 mg-400 unit-5,000 unit/gram top oint (Triple Antibiotic) Previous Rx's ?Medication ?Instructions ?Recorded apixaban 5 mg tablet (Eliquis) 5 mg PO BID #180 tabs 01/28/24 omeprazole 40 mg capsule,delayed 40 mg PO DAILY #30 caps 04/19/24 release blood-glucose meter,continuous #1 ea 05/14/24 (FreeStyle Stacey 3 [place]) blood-glucose sensor (FreeStyle #2 ea 05/14/24 Stacey 3 Sensor device) ondansetron 4 mg disintegrating 4 mg PO Q8H PRN nausea and 07/02/24 tablet vomiting #20 tabs olanzapine 5 mg disintegrating 5 mg PO BID PRN agitation/anxiety 08/05/24 tablet #60 tabs blood-glucose meter,continuous #1 ea 08/13/24 (Dexcom G7 Nurse Supervisor) blood-glucose sensor (Dexcom G7 #3 ea 08/13/24 Sensor device) menthol 10 % topical cream 1 applic topical TID PRN muscle 09/03/24 (Biofreeze (menthol)) pain #85 grams metoprolol succinate 25 mg 25 mg PO DAILY #90 tabs 11/04/24 tablet,extended release 24 hr pioglitazone 45 mg tablet See Rx Instructions .Route 11/17/24 .COMPLEX #30 tabs aripiprazole 30 mg tablet 15 mg (1/2 x 30 mg) PO BID 30 days 11/27/24 #30 tabs divalproex 500 mg tablet,extended 2,000 mg (4 x 500 mg) PO BEDTIME 11/27/24 release 24 hr 30 days #120 tabs venlafaxine 150 mg 300 mg (2 x 150 mg) PO QAM 30 days 11/27/24 capsule,extended release 24 hr #60 caps glucagon 1 mg solution for See Rx Instructions .Route 12/17/24 injection (Glucagon Emergency Kit) .COMPLEX #1 ea diazepam 5 mg tablet 5 mg PO TID #90 tabs 12/26/24 metformin 1,000 mg tablet See Rx Instructions .Route 12/26/24 .COMPLEX #90 tabs zonisamide 100 mg capsule 200 mg (2 x 100 mg) PO DAILY #180 12/30/24 caps tirzepatide 12.5 mg/0.5 mL 12.5 mg (0.5 mL) SUBCUT Q7D #2 mL 01/01/25 subcutaneous pen injector (Mounjaro) Allergies Allergy/AdvReac Type Severity Reaction Status Date / Time No Known Allergies Allergy Verified 01/09/25 22:47 Review of Systems General: Reports: 10 or more systems reviewed and unremarkable except in HPI and below PFS ED PFSH: Medical History Coronary-myocardial bridge Peripheral neuropathy Type 2 diabetes mellitus Hyperlipidemia Hypertension Pulmonary embolism Other reactions to severe stress Bipolar 1 disorder Most recent episode depressed Fracture of [facility] Surgical History History of appendectomy Social History Smoking and tobacco/nicotine status: current some day tobacco/nicotine user (some vaping) e-cigarettes Alcohol intake: current Alcohol intake frequency: few times a month Substance/Drug Use: never Marital status: Single Physical Exam Const: COMMON NORMALS: no acute distress, average body habitus, patient oriented x3, no limitations, healthy appearing, alert and well nourished OTHER: Upon me walking in the room patient was sleeping soundly with no acute distress. HENMT: COMMON NORMALS: normocephalic, atraumatic, hearing grossly normal bilaterally, external ears normal, Normal external nose present, moist oral mucous membranes and oropharynx normal HEAD & SCALP: normocephalic and atraumatic NOSE: Normal external nose present EXTERNAL EAR: Yes external ears normal Neck/C-Spine: COMMON NORMALS: no JVD Chest: COMMONS NORMALS: normal inspection of the chest and normal palpation of entire chest wall Resp: COMMON NORMALS: normal respiratory effort, No retractions, No use of accessory muscles and clear to auscultation bilaterally AUSCULTATION: clear to auscultation bilaterally Cardio: COMMON NORMALS: no JVD, regular rate, regular rhythm, S1 normal heart sound present, S2 normal heart sound present, No gallops present (Cardio), No clicks present (Cardio), No murmurs present (Cardio) and No rub (Cardio) RATE: regular rate RHYTHM: regular rhythm HEART SOUNDS: S1 normal heart sound present and S2 normal heart sound present GI: COMMON NORMALS: Normal to inspection, nondistended, normoactive bowel sounds present, Soft to palpation, non-tender, No hepatosplenomegaly present and no masses PALPATION: Yes Soft to palpation and Yes No hepatosplenomegaly present Neuro: COMMON NORMALS: patient oriented x3 SENSORIUM/ORIENTATION: Yes alert Course Vital Signs: Vital signs: Vital Signs Temperature 97.8 F 01/09/25 22:40 Pulse Rate 112 H 01/09/25 22:40 Respiratory Rate 18 01/09/25 22:40 Blood Pressure 143/84 01/09/25 22:40 Pulse Oximetry 96 01/09/25 22:40 MDM - Chest Pain Medical Decision Making Lab work was obtained as well as serial EKGs, initial troponin was 7, 2-hour troponin was 6.1, initial blood sugar was 426, patient was given 10 units of IV insulin. Patient be discharged home. Lab Data 01/09/25 21:49 01/09/25 21:49 Laboratory Results WBC 6.27 10^3/uL (3.29-11.43) 01/09/25 21:49 RBC 5.86 10^6/uL (3.85-5.65) H 01/09/25 21:49 Hgb 16.80 g/dL (11.27-16.99) 01/09/25 21:49 Hct 51.5 % (37-53) 01/09/25 21:49 MCV 87.9 fl (82-101) 01/09/25 21:49 MCH 28.7 pg (27-33) 01/09/25 21:49 MCHC 32.6 g/dL (30-55) 01/09/25 21:49 RDW 14.0 % (12.1-15.1) 01/09/25 21:49 Plt Count 202 10^3/cmm (157-399) 01/09/25 21:49 MPV 10.2 fL (7.4-10.4) 01/09/25 21:49 Neut % (Auto) 42.9 % 01/09/25 21:49 Lymph % (Auto) 49.6 % 01/09/25 21:49 Saunders % (Auto) 5.7 % 01/09/25 21:49 Eos % (Auto) 0.8 % 01/09/25 21:49 Baso % (Auto) 0.5 % 01/09/25 21:49 Neut # (Auto) 2.69 10^3/uL (1.8-7.7) 01/09/25 21:49 Lymph # (Auto) 3.1 10^3/uL (0.8-4.8) 01/09/25 21:49 Saunders # (Auto) 0.4 10^3/uL (0.2-0.9) 01/09/25 21:49 Eos # (Auto) 0.1 10^3/uL (0.0-0.8) 01/09/25 21:49 Baso # (Auto) 0.0 10^3/uL (0.0-0.1) 01/09/25 21:49 Nucleated RBC % (auto) 0 % 01/09/25 21:49 Nucleated RBCs # 0.0 /100WBC 01/09/25 21:49 Sodium 136 mmol/L (136-145) 01/09/25 21:49 Potassium 4.1 mmol/L (3.5-5.1) 01/09/25 21:49 Chloride 95 mmol/L (98-107) L 01/09/25 21:49 Carbon Dioxide 32 mmol/L (22-29) H 01/09/25 21:49 Anion Gap 13.1 (5-19) 01/09/25 21:49 BUN 13 mg/dL (6-20) 01/09/25 21:49 Creatinine 0.8 mg/dL (0.7-1.2) 01/09/25 21:49 GFR Calculation 104.5 mL/min (90-130) 01/09/25 21:49 Glucose 426 mg/dL (65-115) H 01/09/25 21:49 Calculated Osmolality 300 mOsm/kg (285-295) H 01/09/25 21:49 Calcium 9.3 mg/dL (8.5-10.5) 01/09/25 21:49 Troponin T Baseline 7 ng/L (0-15) 01/09/25 21:49 Troponin T 120 Minute 6.16 ng/L (0-15) 01/10/25 00:20 Delta Troponin T -0.84 ABS# (0-10) L 01/10/25 00:20 No radiology studies performed this visit Discharge Plan Discharge Patient Disposition: Home Clinical Impression: Chest pain, Hyperglycemia due to diabetes mellitus Condition: Stable Prescriptions: No Action gabapentin [Neurontin] 300 mg capsule 300 mg PO BID (DME) FreeStyle Stacey 3 [place] Misc See Rx Instructions .Route Qty: 1 0RF Rx Instructions: As directed (DME) FreeStyle Stacey 3 Sensor Device See Rx Instructions .Route Qty: 2 3RF Rx Instructions: As directed omeprazole 40 mg capsule,delayed release(DR/EC) 40 mg PO DAILY Qty: 30 0RF loperamide [Anti-Diarrheal (loperamide)] 2 mg capsule 2 mg PO Q6H PRN (Reason: Diarrhea) albuterol sulfate 90 mcg/actuation HFA aerosol inhaler 2 puff inhalation Q4H PRN (Reason: Shortness Of Breath) icosapent ethyl [Vascepa] 1 gram capsule 2 g PO BID PreserVision AREDS 4,296 mcg-226 mg-90 mg capsule 1 cap PO BID olanzapine 5 mg tablet,disintegrating 5 mg PO BID PRN (Reason: agitation/anxiety) Qty: 60 3RF Rx Instructions: Take one tablet up to twice daily, if needed for agitation/anxiety Triple Antibiotic 3.5mg-400 unit- 5,000 unit/gram ointment 1 applic topical ONCE PRN venlafaxine 150 mg capsule,extended release 24hr 300 mg PO QAM 30 Days Qty: 60 3RF Rx Instructions: Take two capsules by mouth every morning aripiprazole 30 mg tablet 15 mg PO BID 30 Days Qty: 30 3RF Rx Instructions: Take one-half tablet twice a day, morning and night time divalproex 500 mg tablet extended release 24 hr 2,000 mg PO BEDTIME 30 Days Qty: 120 3RF Rx Instructions: Take 4 tablets daily at bedtime insulin lispro [Humalog KwikPen Insulin] 100 unit/mL insulin pen 5 unit SUBCUT TID PRN Rx Instructions: 5units every 4 hours as needed for blood sugars above 400 (DME) Dexcom G7 Nurse Supervisor Misc See Rx Instructions .Route Qty: 1 0RF Rx Instructions: As directed (DME) Dexcom G7 Sensor Device See Rx Instructions .Route Qty: 3 3RF Rx Instructions: As directed Mounjaro 12.5 mg/0.5 mL pen injector 12.5 mg SUBCUT Q7D Qty: 2 3RF Eliquis 5 mg tablet 5 mg PO BID Qty: 180 3RF ondansetron 4 mg tablet,disintegrating 4 mg PO Q8H PRN (Reason: nausea and vomiting) Qty: 20 0RF metoprolol succinate 25 mg tablet extended release 24 hr 25 mg PO DAILY Qty: 90 3RF pioglitazone 45 mg tablet See Rx Instructions .ROUTE .COMPLEX Qty: 30 2RF Dose Instruction: TAKE 1 TABLET BY MOUTH EVERY DAY Rx Instructions: TAKE 1 TABLET BY MOUTH EVERY DAY Glucagon Emergency Kit (human) 1 mg recon soln See Rx Instructions .ROUTE .COMPLEX Qty: 1 0RF Dose Instruction: inject 1mg SUBCUTANEOUSLY EVERY 20 MINUTES NEEDED FOR hypoglycemia UNTIL target blood sugar attained Rx Instructions: inject 1mg SUBCUTANEOUSLY EVERY 20 MINUTES NEEDED FOR hypoglycemia UNTIL target blood sugar attained diazepam 5 mg tablet 5 mg PO TID Qty: 90 1RF Rx Instructions: Take one tablet by mouth morning, afternoon, and evening, at least 4 hours apart metformin 1,000 mg tablet See Rx Instructions .ROUTE .COMPLEX Qty: 90 0RF Dose Instruction: TAKE 1 TABLET BY MOUTH EVERY DAY Rx Instructions: TAKE 1 TABLET BY MOUTH EVERY DAY zonisamide 100 mg capsule 200 mg PO DAILY Qty: 180 0RF aspirin 81 mg tablet,delayed release (DR/EC) 81 mg PO DAILY acetaminophen [Pain Reliever (acetaminophen)] 500 mg tablet 1,000 mg PO Q6H PRN (Reason: Pain) Jardiance 25 mg tablet 25 mg PO DAILY Biofreeze (menthol) 10 % cream 1 applic topical TID PRN (Reason: muscle pain) Qty: 85 0RF bismuth subsalicylate [Stomach Relief] 262 mg/15 mL suspension 262 mg PO Q4H PRN (Reason: Indigestion) irbesartan 150 mg tablet 150 mg PO DAILY atorvastatin 80 mg tablet 80 mg PO BEDTIME promethazine 25 mg tablet 25 mg PO Q6H PRN (Reason: Nausea And Vomiting) glucose 4 gram Tablet,Chewable 16 g PO PRN PRN (Reason: LOW BLOOD SUGAR) Rx Instructions: for bs lower than 60 ibuprofen 600 mg tablet 600 mg PO TID PRN (Reason: Pain) cetirizine 10 mg Tablet 10 mg PO DAILY PRN (Reason: allergies) Discharge Orders: Discharge ED (Routine); Ordered 01/10/25 Ordered By: Deep Swann Referrals: Bautista Ruiz MD [Primary Care Provider] - 1 week Patient Instructions: Chest Pain (DC), Diabetic Hyperglycemia (ED) Activity Restrictions/Additional Instructions: Thank you for choosing [facility] for your healthcare needs today. Please realize that you were seen in the emergency department and that we are providing you with an emergency medical screening exam and this may not be a complete and all exclusive of all testing and/or medical workup we may need to determine your element or severity of your illness. It is very important that you follow-up as instructed with your primary care provider or specialist for the additional evaluation and to discuss your medical treatment plan. You may return to the emergency department should you have concerns or if your condition changes or worsens in any way. Print Language: Pashto Coding Level of Care Code ED Emergency Department Nurse for Dasha Nix
[2025-01-10] MEDS: insulin regular-human 100 units/1 mL 10 UNIT IVP (02:21)
[2025-01-10 02:33] VITALS: BP 109/67; PULSE 89; O2SAT 94
== END 2025-01-10 02:34 | disposition home or self-care (01) ==
PROVIDERS: Emergency Provider Emergency Medicine; PCP Family Medicine
DX: R07.9 Chest pain, unspecified (principal); E11.65 Type 2 diabetes mellitus with hyperglycemia; Z79.4 Long term (current) use of insulin; Z79.01 Long term (current) use of anticoagulants; Z79.84 Long term (current) use of oral hypoglycemic drugs; F17.290 Nicotine dependence, other tobacco product, uncomplicated; E78.5 Hyperlipidemia, unspecified; I10 Essential (primary) hypertension
CPT/HCPCS: 36415; 71045; 80048; 84484; 85025; 93005; 96374; 99285; J1815

== ENCOUNTER 2025-01-14 11:11 | Emergency (ER) | payer MEDICARE, MEDICAID, SELFPAY ==
[2025-01-14 11:21] VITALS: BP 140/88; PULSE 122; RESP 17; TEMP 36.5; O2SAT 92; BMI 31.8
--- NOTE | 2025-01-14 11:32 | W.ED.HEATRA ---
HPI - Head Injury General: Chief complaint: Head Injury Stated complaint: blow to head/rash Time Seen by Provider: 01/14/25 11:25 History of Present Illness: 44-year-old male presents emergency room with caregivers they report that he had supposedly himself in the center of the head with a hammer last night. There is no loss conscious no vomiting no neurologic deficits. He does take aspirin and apixaban. He has no bruising no swelling no laceration no other symptoms. Patient reports he is only done so playfully and did not hit himself with any degree of force. He denies loss consciousness nausea or vomiting. Associated symptoms: Deny neck pain Related Data Home Medications ?Medication ?Instructions ?Recorded ?Confirmed gabapentin 300 mg capsule 300 mg PO BID 10/11/22 01/01/25 (Neurontin) bismuth subsalicylate 262 mg/15 mL 262 mg PO Q4H PRN Indigestion 03/16/23 01/01/25 oral suspension (Stomach Relief) irbesartan 150 mg tablet 150 mg PO DAILY 03/16/23 01/01/25 acetaminophen 500 mg tablet (Pain 1,000 mg PO Q6H PRN Pain 10/24/23 01/01/25 Reliever (acetaminophen)) aspirin 81 mg tablet,delayed 81 mg PO DAILY 10/24/23 01/01/25 release empagliflozin 25 mg tablet 25 mg PO DAILY 10/24/23 01/01/25 (Jardiance) atorvastatin 80 mg tablet 80 mg PO BEDTIME 12/31/23 01/01/25 glucose 4 gram chewable tablet 16 g PO PRN PRN LOW BLOOD SUGAR 12/31/23 01/01/25 ibuprofen 600 mg tablet 600 mg PO TID PRN Pain 12/31/23 01/01/25 promethazine 25 mg tablet 25 mg PO Q6H PRN Nausea And 12/31/23 01/01/25 Vomiting albuterol sulfate 90 mcg/actuation 2 puff inhalation Q4H PRN 08/05/24 01/01/25 aerosol inhaler Shortness Of Breath icosapent ethyl 1 gram capsule 2 g PO BID 08/05/24 01/01/25 (Vascepa) loperamide 2 mg capsule 2 mg PO Q6H PRN Diarrhea 08/05/24 01/01/25 (Anti-Diarrheal (loperamide)) vitamins A,C,Y-avde-qjubre 4,296 1 cap PO BID 08/05/24 01/01/25 mcg-226 mg-90 mg capsule (PreserVision AREDS) cetirizine 10 mg tablet 10 mg PO DAILY PRN allergies 10/23/24 01/01/25 insulin lispro 100 unit/mL 5 unit SUBCUT TID PRN 11/11/24 01/01/25 subcutaneous pen (Humalog KwikPen (U-100) Insulin) neomycin-bacitracn Zn-polymyx 3.5 1 applic topical ONCE PRN 11/27/24 01/01/25 mg-400 unit-5,000 unit/gram top oint (Triple Antibiotic) Previous Rx's ?Medication ?Instructions ?Recorded apixaban 5 mg tablet (Eliquis) 5 mg PO BID #180 tabs 01/28/24 omeprazole 40 mg capsule,delayed 40 mg PO DAILY #30 caps 04/19/24 release blood-glucose meter,continuous #1 ea 05/14/24 (FreeStyle Stacey 3 [place]) blood-glucose sensor (FreeStyle #2 ea 05/14/24 Stacey 3 Sensor device) ondansetron 4 mg disintegrating 4 mg PO Q8H PRN nausea and 07/02/24 tablet vomiting #20 tabs olanzapine 5 mg disintegrating 5 mg PO BID PRN agitation/anxiety 08/05/24 tablet #60 tabs blood-glucose meter,continuous #1 ea 08/13/24 (Dexcom G7 Vp [employer]) blood-glucose sensor (Dexcom G7 #3 ea 08/13/24 Sensor device) menthol 10 % topical cream 1 applic topical TID PRN muscle 09/03/24 (Biofreeze (menthol)) pain #85 grams metoprolol succinate 25 mg 25 mg PO DAILY #90 tabs 11/04/24 tablet,extended release 24 hr pioglitazone 45 mg tablet See Rx Instructions .Route 11/17/24 .COMPLEX #30 tabs aripiprazole 30 mg tablet 15 mg (1/2 x 30 mg) PO BID 30 days 11/27/24 #30 tabs divalproex 500 mg tablet,extended 2,000 mg (4 x 500 mg) PO BEDTIME 11/27/24 release 24 hr 30 days #120 tabs venlafaxine 150 mg 300 mg (2 x 150 mg) PO QAM 30 days 11/27/24 capsule,extended release 24 hr #60 caps glucagon 1 mg solution for See Rx Instructions .Route 12/17/24 injection (Glucagon Emergency Kit) .COMPLEX #1 ea diazepam 5 mg tablet 5 mg PO TID #90 tabs 12/26/24 metformin 1,000 mg tablet See Rx Instructions .Route 12/26/24 .COMPLEX #90 tabs zonisamide 100 mg capsule 200 mg (2 x 100 mg) PO DAILY #180 12/30/24 caps tirzepatide 12.5 mg/0.5 mL 12.5 mg (0.5 mL) SUBCUT Q7D #2 mL 01/01/25 subcutaneous pen injector ([facility]) Allergies Allergy/AdvReac Type Severity Reaction Status Date / Time No Known Allergies Allergy Verified 01/09/25 22:47 Review of Systems Const: Denies: fever(s) or chills Card: Denies: chest pain Resp: Denies: dyspnea GI: Denies: abdominal pain : Denies: dysuria, urinary frequency or urinary urgency Musc: Denies: neck pain or back pain Skin/Breast: Denies: rash PFSH ED PFSH: Medical History Coronary-myocardial bridge Peripheral neuropathy Type 2 diabetes mellitus Hyperlipidemia Hypertension Pulmonary embolism Other reactions to severe stress Bipolar 1 disorder Most recent episode depressed Fracture of [facility] Surgical History History of appendectomy Social History Smoking and tobacco/nicotine status: current some day tobacco/nicotine user (some vaping) e-cigarettes Alcohol intake: current Alcohol intake frequency: few times a month Substance/Drug Use: never Marital status: Single Physical Exam Const: COMMON NORMALS: no acute distress GENERAL APPEARANCE: cooperative and comfortable ORIENTATION/CONSCIOUSNESS: Yes awake HENMT: COMMON NORMALS: normocephalic, atraumatic and hearing grossly normal bilaterally HEAD & SCALP: normocephalic and atraumatic OTHER: Pupils equal react light and accommodation, extraocular movements intact. Resp: COMMON NORMALS: normal respiratory effort, No retractions and No use of accessory muscles Extremity: COMMON NORMALS: normal to inspection, capillary refill normal, no clubbing, cyanosis or edema, no calf tenderness and no pedal edema Neuro: OTHER: Normal neurologic exam with no focal neurologic deficits noted. Skin: COMMON NORMALS: no rashes or lesions noted GENERAL SKIN EXAM: no rashes or lesions noted Course Vital Signs: Vital signs: Vital Signs Temperature 97.7 F 01/14/25 11:21 Pulse Rate 122 H 01/14/25 11:21 Respiratory Rate 17 01/14/25 11:21 Blood Pressure 140/88 01/14/25 11:21 Pulse Oximetry 92 01/14/25 11:21 Oxygen Delivery Me thod Room Air 01/14/25 11:21 MDM - Head Injury Medcial Decision Making Neurologic exam normal there is no sign of any trauma to the head at this point does not need any advanced imaging can be discharged home continue current medications follow-up with his primary care doctor as planned no emergent condition found at this point. No radiology studies performed this visit Discharge Plan Discharge Patient Disposition: Home Clinical Impression: Normal exam Condition: Stable Prescriptions: No Action gabapentin [Neurontin] 300 mg capsule 300 mg PO BID (DME) FreeStyle Stacey 3 [place] Misc See Rx Instructions .Route Qty: 1 0RF Rx Instructions: As directed (DME) FreeStyle Stacey 3 Sensor Device See Rx Instructions .Route Qty: 2 3RF Rx Instructions: As directed omeprazole 40 mg capsule,delayed release(DR/EC) 40 mg PO DAILY Qty: 30 0RF loperamide [Anti-Diarrheal (loperamide)] 2 mg capsule 2 mg PO Q6H PRN (Reason: Diarrhea) albuterol sulfate 90 mcg/actuation HFA aerosol inhaler 2 puff inhalation Q4H PRN (Reason: Shortness Of Breath) icosapent ethyl [Vascepa] 1 gram capsule 2 g PO BID PreserVision AREDS 4,296 mcg-226 mg-90 mg capsule 1 cap PO BID olanzapine 5 mg tablet,disintegrating 5 mg PO BID PRN (Reason: agitation/anxiety) Qty: 60 3RF Rx Instructions: Take one tablet up to twice daily, if needed for agitation/anxiety Triple Antibiotic 3.5mg-400 unit- 5,000 unit/gram ointment 1 applic topical ONCE PRN venlafaxine 150 mg capsule,extended release 24hr 300 mg PO QAM 30 Days Qty: 60 3RF Rx Instructions: Take two capsules by mouth every morning aripiprazole 30 mg tablet 15 mg PO BID 30 Days Qty: 30 3RF Rx Instructions: Take one-half tablet twice a day, morning and night time divalproex 500 mg tablet extended release 24 hr 2,000 mg PO BEDTIME 30 Days Qty: 120 3RF Rx Instructions: Take 4 tablets daily at bedtime insulin lispro [Humalog KwikPen Insulin] 100 unit/mL insulin pen 5 unit SUBCUT TID PRN Rx Instructions: 5units every 4 hours as needed for blood sugars above 400 (DME) Dexcom G7 Vp [employer] Misc See Rx Instructions .Route Qty: 1 0RF Rx Instructions: As directed (DME) Dexcom G7 Sensor Device See Rx Instructions .Route Qty: 3 3RF Rx Instructions: As directed Mounjaro 12.5 mg/0.5 mL pen injector 12.5 mg SUBCUT Q7D Qty: 2 3RF Eliquis 5 mg tablet 5 mg PO BID Qty: 180 3RF ondansetron 4 mg tablet,disintegrating 4 mg PO Q8H PRN (Reason: nausea and vomiting) Qty: 20 0RF metoprolol succinate 25 mg tablet extended release 24 hr 25 mg PO DAILY Qty: 90 3RF pioglitazone 45 mg tablet See Rx Instructions .ROUTE .COMPLEX Qty: 30 2RF Dose Instruction: TAKE 1 TABLET BY MOUTH EVERY DAY Rx Instructions: TAKE 1 TABLET BY MOUTH EVERY DAY Glucagon Emergency Kit (human) 1 mg recon soln See Rx Instructions .ROUTE .COMPLEX Qty: 1 0RF Dose Instruction: inject 1mg SUBCUTANEOUSLY EVERY 20 MINUTES NEEDED FOR hypoglycemia UNTIL target blood sugar attained Rx Instructions: inject 1mg SUBCUTANEOUSLY EVERY 20 MINUTES NEEDED FOR hypoglycemia UNTIL target blood sugar attained diazepam 5 mg tablet 5 mg PO TID Qty: 90 1RF Rx Instructions: Take one tablet by mouth morning, afternoon, and evening, at least 4 hours apart metformin 1,000 mg tablet See Rx Instructions .ROUTE .COMPLEX Qty: 90 0RF Dose Instruction: TAKE 1 TABLET BY MOUTH EVERY DAY Rx Instructions: TAKE 1 TABLET BY MOUTH EVERY DAY zonisamide 100 mg capsule 200 mg PO DAILY Qty: 180 0RF aspirin 81 mg tablet,delayed release (DR/EC) 81 mg PO DAILY acetaminophen [Pain Reliever (acetaminophen)] 500 mg tablet 1,000 mg PO Q6H PRN (Reason: Pain) Jardiance 25 mg tablet 25 mg PO DAILY Biofreeze (menthol) 10 % cream 1 applic topical TID PRN (Reason: muscle pain) Qty: 85 0RF bismuth subsalicylate [Stomach Relief] 262 mg/15 mL suspension 262 mg PO Q4H PRN (Reason: Indigestion) irbesartan 150 mg tablet 150 mg PO DAILY atorvastatin 80 mg tablet 80 mg PO BEDTIME promethazine 25 mg tablet 25 mg PO Q6H PRN (Reason: Nausea And Vomiting) glucose 4 gram Tablet,Chewable 16 g PO PRN PRN (Reason: LOW BLOOD SUGAR) Rx Instructions: for bs lower than 60 ibuprofen 600 mg tablet 600 mg PO TID PRN (Reason: Pain) cetirizine 10 mg Tablet 10 mg PO DAILY PRN (Reason: allergies) Discharge Orders: Discharge ED (Routine); Ordered 01/14/25 Ordered By: Lencho Mayes Referrals: Bautista Ruiz MD [Primary Care Provider] - Discharge Diet: Usual diet Discharge Activity: Resume usual activity Patient Instructions: Opioid Safety, Pain Management Activity Restrictions/Additional Instructions: Thank you for choosing [facility] for your healthcare needs today. It is very important that you follow up as instructed or that you return to the Emergency Department should you have concerns or if your condition changes or worsens in any way. You were seen in the emergency room was a report of having received a blow to her head. The area in which she referred to shows no sign of any soft tissue injury there is no bruising or laceration. The remainder of your neurologic exam was normal. At this point given the history and exam findings no further evaluation needs to be completed. There is no evidence of any emergent medical condition at this time. Return to the emergency room have any further problems. You do not need to do any follow-up for this particular issue, unless you have different symptoms. Print Language: Palauan Coding Level of Care Code ED Keno Attendant for Dasha Nix
[2025-01-14 12:06] VITALS: BP 124/74; PULSE 116; O2SAT 90
== END 2025-01-14 11:49 | disposition home or self-care (01) ==
PROVIDERS: Emergency Provider Family Medicine; PCP Family Medicine
DX: Z03.89 Encounter for observation for other suspected diseases and conditions ruled out (principal); Z00.00 Encounter for general adult medical examination without abnormal findings; Z79.01 Long term (current) use of anticoagulants; Z79.82 Long term (current) use of aspirin; Z79.84 Long term (current) use of oral hypoglycemic drugs; E11.9 Type 2 diabetes mellitus without complications; E78.5 Hyperlipidemia, unspecified; I10 Essential (primary) hypertension
CPT/HCPCS: 99281

== ENCOUNTER 2025-01-20 21:21 | Emergency (ER) | payer MEDICARE, MEDICAID, SELFPAY ==
[2025-01-20] VITALS (7 sets, daily range): BP systolic 111–132; BP diastolic 65–86; PULSE 102–130; RESP 11–18; TEMP 36.6; O2SAT 92–97; BMI 31.6
--- NOTE | 2025-01-20 21:28 | ECG_ITS ---
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 Measurements Intervals [place] Rate: 124 P: 72 MS: 179 QRS: 250 QRSD: 100 T: 56 QT: 284 QTc: 408 Interpretive Statements SINUS TACHYCARDIA POSSIBLE RIGHT VENTRICULAR HYPERTROPHY [SOME/ALL OF: PROMINENT R IN V1, LATE TRANSITION, RAD, JUAN, SSS] ANTEROSEPTAL MYOCARDIAL INFARCTION , OF INDETERMINATE AGE [40+ ms Q WAVE IN V1-V4] Compared to ECG 01/10/2025 00:23:14 No significant changes Electronically Signed On 01-21-2025 22:16:57 CDT by Yina Lugo M.D. [email or web address]
--- NOTE | 2025-01-20 21:59 | XRR_ITS ---
PROCEDURE INFORMATION: Exam: XR Chest Exam date and time: 01/20/2025 10:12 PM Age: 44 years old Clinical indication: Injury or trauma; Fall; Other: Syncopeal episode; Additional info: Syncope, SOB TECHNIQUE: Imaging protocol: Radiologic exam of the chest. Views: 1 view. COMPARISON: CR (CHEST, ) 01/10/2025 1:35 AM FINDINGS: Lungs: Unremarkable. No consolidation. Pleural spaces: Unremarkable. No pleural effusion. No pneumothorax. Heart/Mediastinum: Unremarkable. No cardiomegaly. Bones/joints: Unremarkable. XR/XR chest 1V portable [id number] IMPRESSION: No acute process.
--- NOTE | 2025-01-20 22:00 | CTR_ITS ---
PROCEDURE INFORMATION: Exam: CT Head Without Contrast Exam date and time: 01/20/2025 10:17 PM Age: 44 years old Clinical indication: Syncope and collapse; Additional info: Syncope, head injury TECHNIQUE: Imaging protocol: Computed tomography of the head without contrast. Radiation optimization: All CT scans at this facility use at least one of these dose optimization techniques: automated exposure control; mA and/or kV adjustment per patient size (includes targeted exams where dose is matched to clinical indication); or iterative reconstruction. COMPARISON: CT head wo con* [id number] 12/04/2024 10:02 PM RADIATION DOSE METRICS: Total DLP (mGy-cm): 1306.58 FINDINGS: Brain: Normal. No hemorrhage. Unremarkable white matter. No mass effect. Cerebral ventricles: No ventriculomegaly. Paranasal sinuses: Visualized sinuses are unremarkable. No fluid levels. Mastoid air cells: Visualized mastoid air cells are well aerated. Bones: Unremarkable. No acute fracture. Soft tissues: Vertex and posterior scalp swelling. CT/CT head wo con* [id number] IMPRESSION: No acute intracranial process. Vertex and posterior scalp swelling.
[2025-01-20 22:23] LABS: Basophils % 0.3 %; Eosinophils % 0.5 %; Hematocrit 48.9 % (37-53); Lymphocytes % 30.8 %; Mean Corpuscular HGB Conc 33.3 g/dL (30-55); Mean Platelet Volume 9.8 fL (7.4-10.4); Monocytes # 0.5 10^3/uL (0.2-0.9); Monocytes % 7.5 %; Neutrophils # 4.01 10^3/uL (1.8-7.7); Neutrophils % 60.4 %; Nucleated Red Blood Cells % 0 %; Platelet Count 187 10^3/cmm (157-399); Red Blood Count 5.62 10^6/uL (3.85-5.65); White Blood Count 6.63 10^3/uL (3.29-11.43)
[2025-01-20 22:28] LABS: Glucose Point of Care 236 mg/dL (70-110)
[2025-01-20 22:41] LABS: Troponin(5th) Baseline < 6 ng/L (0-15)
[2025-01-20 22:43] LABS: Lactic Sepsis W/Reflex 1.3 mmol/L (0.5-2.2)
--- NOTE | 2025-01-20 22:55 | ED_ITS ---
HPI - Syncope 2 General: Chief Complaint: Syncope Stated Complaint: fall head injury Time Seen by Provider: 01/20/25 21:34 Source: patient and other (staff) Mode of arrival: EMS Limitations: no limitations History of Present Illness: This small abrasion patient is a 44-year-old male with past medical history of diabetes and pulmonary embolus on Eliquis and who has multiple prior visits here to the ED who was brought in by ambulance due to a syncopal episode and fall that occurred just prior to arrival. He is from independent living facility and accompanied by staff, patient stating he got dizzy after standing up from the toilet too fast and this caused him to fall forward striking his forehead on the wall. Caregiver states that he was on the ground for about 4 to 5 minutes for the got to him. Patient currently states he is having some visual changes and still feels dizzy, also has a headache and abrasion to his forehead where he struck his head. Not reporting any chest pain or shortness of breath, or any other symptoms at this time. Tachycardic, reviewing his past vitals appears that he has been tachycardic in the past. He is on Eliquis as mentioned. No other injuries with the fall. States his blood sugars chronically run in the 200s. He does report a seizure history, there was no reported seizure-like activity. MD complaint: loss of consciousness Onset (ago): minute(s) -: minutes(s) Prodromal symptoms: other (Dizzy) Witnessed: Dickey by staff Context: standing up Injuries sustained associated with event: face and head Associated symptoms: Reports headache(s); Deny abdominal pain, chest pain, fever(s), lightheadedness or nausea History: seizure disorder Treatments prior to arrival: none Related Data Home Medications ?Medication ?Instructions ?Recorded ?Confirmed gabapentin 300 mg capsule 300 mg PO BID 10/11/2201/14 (Neurontin) bismuth subsalicylate 262 mg/15 mL 262 mg PO Q4H PRN I ndigestion 03/16/23 01/14/25 oral suspension (Stomach Relief) irbesartan 150 mg tablet 150 mg PO DAILY 03/16/2310/29 acetaminophen 500 mg tablet (Pain 1,000 mg PO Q6H PRN Pain 10/24/23 01/14/25 Reliever (acetaminophen)) aspirin 81 mg tablet,delayed 81 mg PO DAILY 10/24/23 0 01/14/25 release empagliflozin 25 mg tablet 25 mg PO DAILY 10/24/2310/29 (Jardiance) atorvastatin 80 mg tablet 80 mg PO BEDTIME 12/31/23 glucose 4 gram chewable tablet 16 g PO PRN PRN LOW BLO OD SUGAR 12/31/23 01/14/25 ibuprofen 600 mg tablet 600 mg PO TID PRN Pain 12/3101/14/25 promethazine 25 mg tablet 25 mg PO Q6H PRN Nausea And 12/31/23 01/14/25 Vomiting albuterol sulfate 90 mcg/actuation 2 puff inhalation Q 4H PRN 08/05/24 01/14/25 aerosol inhaler Shortness Of Breath icosapent ethyl 1 gram capsule 2 g PO BID 08/05/2410/29 (Vascepa) loperamide 2 mg capsule 2 mg PO Q6H PRN Diarrhea 11/2801/14/25 (Anti-Diarrheal (loperamide)) vitamins A,C,W-lesc-gonkvc 4,296 1 cap PO BID 08/05/24 01/14/25 mcg-226 mg-90 mg capsule (PreserVision AREDS) cetirizine 10 mg tablet 10 mg PO DAILY PRN allergies 10/23/24 01/14/25 insulin lispro 100 unit/mL See Rx Instructions .Route .COMPLEX 11/11/24 01/14/25 subcutaneous pen (Humalog KwikPen (U-100) Insulin) neomycin-bacitracn Zn-polymyx 3.5 1 applic topical ARIELLE LY PRN Skin 11/27/24 01/14/25 mg-400 unit-5,000 unit/gram top Irritation oint (Triple Antibiotic) metformin 1,000 mg tablet 1,000 mg PO DAILY 01/14/25 0 01/14/25 pioglitazone 45 mg tablet 45 mg PO DAILY 01/14/2501/03 Previous Rx's ?Medication ?Instructions ?Recorded apixaban 5 mg tablet (Eliquis) 5 mg PO BID #180 tabs 0 01/28/24 omeprazole 40 mg capsule,delayed 40 mg PO DAILY #30 ca ps 04/19/24 release blood-glucose meter,continuous #1 ea 05/14/24 (FreeStyle Stacey 3 Ronceverte) blood-glucose sensor (FreeStyle #2 ea 05/14/24 Stacey 3 Sensor device) ondansetron 4 mg disintegrating 4 mg PO Q8H PRN nausea and 07/02/24 tablet vomiting #20 tabs olanzapine 5 mg disintegrating 5 mg PO BID PRN agitati on/anxiety 08/05/24 tablet #60 tabs blood-glucose meter,continuous #1 ea 08/13/24 (Dexcom G7 Strategic [employer] Specialist) menthol 10 % topical cream 1 applic topical TID PRN mu scle 09/03/24 (Biofreeze (menthol)) pain #85 grams metoprolol succinate 25 mg 25 mg PO DAILY #90 tabs tablet,extended release 24 hr aripiprazole 30 mg tablet 15 mg (1/2 x 30 mg) PO BID 3 0 days 11/27/24 #30 tabs divalproex 500 mg tablet,extended 2,000 mg (4 x 500 mg ) PO BEDTIME 11/27/24 release 24 hr 30 days #120 tabs venlafaxine 150 mg 300 mg (2 x 150 mg) PO QAM 3 0 days 11/27/24 capsule,extended release 24 hr #60 caps glucagon 1 mg solution for See Rx Instructions .Route 12/17/24 injection (Glucagon Emergency Kit) .COMPLEX #1 ea diazepam 5 mg tablet 5 mg PO TID #90 tabs 5 zonisamide 100 mg capsule 200 mg (2 x 100 mg) PO DAILY #180 12/30/24 caps tirzepatide 12.5 mg/0.5 mL 12.5 mg (0.5 mL) SUBCUT Q7D #2 mL 01/01/25 subcutaneous pen injector (Edwinunfrancisco javierro) blood-glucose sensor (Dexcom G7 #3 ea 01/20/25 Sensor device) Allergies Allergy/AdvReac Type Severity Reaction Status Date / Time No Known Allergies Allergy Verified 01/09/25 22:47 Review of Systems 2 General: Reports: 10 or more systems reviewed and unremarkable except in HPI and below Const: Denies: fever(s), chills or fatigue Eyes: Reports: change in vision ENMT: Denies: throat pain, ear or mastoid pain or nasal discharge Card: Reports: syncope; Denies: chest pain, palpitations, swelling of feet/ankles or lightheadedness Resp: Denies: dyspnea, productive cough or wheezing GI: Denies: abdominal pain, nausea, vomiting, diarrhea or constipation : Denies: flank pain, difficulty urinating, dysuria or urinary frequency Musc: Denies: neck pain, back pain or joint pain Skin/Breast: Denies: rash Neuro: Reports: headache(s) and dizziness; Denies: numbness in extremities or weakness in extremities PFSH ED 2 PFSH: Medical History Coronary-myocardial bridge Peripheral neuropathy Type 2 diabetes mellitus Hyperlipidemia Hypertension Pulmonary embolism Other reactions to severe stress Bipolar 1 disorder Most recent episode depressed Fracture of [facility] Psychiatric care Surgical History History of appendectomy Social History Smoking and tobacco/nicotine status: current some day tobacco/nicotine user (some vaping) e-cigarettes Alcohol intake: current Alcohol intake frequency: few times a month Substance/Drug Use: never Marital status: Single Physical Exam 2 Const: COMMON NORMALS: no acute distress, patient oriented x3 and no limitations GENERAL APPEARANCE: cooperative, comfortable and well developed ORIENTATION/CONSCIOUSNESS: Yes awake, Yes oriented to person, Yes oriented to place and Yes oriented to time HENMT: COMMON NORMALS: normocephalic, atraumatic and hearing grossly normal bilaterally HEAD & SCALP: normocephalic and atraumatic; no Sanabria's sign and no raccoon eyes FACE & SINUS: face symmetric and abrasion (forehead) Eye: COMMON NORMALS: Equal, round and reactive pupils present, EOMs intact bilaterally and conjunctivae normal CONJUNCTIVA: Yes conjunctivae normal P UPIL: Yes Equal, round and reactive pupils present Neck/C-Spine: COMMON NORMALS: full ROM, supple and no JVD OTHER: No cervical spine tenderness Chest: COMMONS NORMALS: normal inspection of the chest and normal palpation of entire chest wall Resp: COMMON NORMALS: normal respiratory effort, No retractions, No use of accessory muscles and clear to auscultation bilaterally AUSCULTATION: clear to auscultation bilaterally Cardio: COMMON NORMALS: no JVD, regular rhythm, No clicks present (Cardio), No murmurs present (Cardio) and No rub (Cardio) RATE: tachycardic RHYTHM: r egular rhythm GI: COMMON NORMALS: Normal to inspection, nondistended, normoactive bowel sounds present, Soft to palpation and non-tender AUSCULTATION: Yes normoactive bowel sounds PALPATION: Yes Soft to palpation RECTAL EXAM: Yes deferred Extremity: COMMON NORMALS: normal to inspection, full ROM and capillary refill normal Neuro: COMMON NORMALS: patient oriented x3, CN's II-XII intact bilaterally, moves all extremities, no focal motor deficits and no sensory deficits noted SENSORIUM/ORIENTATION: Yes oriented to person, Yes oriented to place and Yes oriented to time Psych: COMMON NORMALS: mental status grossly normal and Normal thought process present THOUGHT PROCESS: Normal thought process present Skin: COMMON NORMALS: no rashes or lesions noted GENERAL SKIN EXAM: no rashes or lesions noted Course 2 Vital Signs: Vital signs: Vital Signs Temperature 97.8 F 01/20/25 21:22 Pulse Rate 103 H 01/21/25 00:00 Respiratory Rate 15 01/21/25 00:00 Blood Pressure 106/99 01/21/25 00:00 Pulse Oximetry 93 01/21/25 00:00 Oxygen Delivery Me thod Room Air 01/20/25 23:30 MDM - Syncope Medical Decision Making Patient presented by ambulance due to syncopal episode and closed head injury. Neurologically intact on exam, he reported to me he is having visual changes and dizziness, has since resolved upon second recheck. CT head was normal. Baseline troponin was normal, chest x-ray normal, EKG reviewed with physician did not show any significant change from previous or any signs of acute STEMI. His coags were normal. CBC and CMP unremarkable aside from the elevated glucose as he is diabetic. Has been tachycardic here in the ED, has been tachycardic in the past and I suspect dehydration, potentially even orthostatic hypotension secondary to history of standing up and getting dizzy, which ultimately caused him to fall. Reportedly there was no seizure-like activity so I do not suspect a seizure at this time. On recheck he is feeling a lot better and ready to go home. I think he is stable for discharge at this time and is to continue taking his medications and follow-up routinely with regular doctor. He agrees with this plan and verbalized understanding to return precautions. Lab Data 01/20/25 22:14 01/20/25 22:47 Radiology Impressions Chest X-Ray 01/20/25 21:59 IMPRESSION: No acute process. Head CT 01/20/25 22:00 IMPRESSION: No acute intracranial process. Vertex and posterior scalp swelling. Laboratory Results WBC 6.63 10^3/uL (3.29-11.43) 01/20/25 22:14 RBC 5.62 10^6/uL (3.85-5.65) 01/20/25 22:14 Hgb 16.30 g/dL (11.27-16.99) 01/20/25 22:14 Hct 48.9 % (37-53) 01/20/25 22:14 MCV 87.0 fl (82-101) 01/20/25 22:14 MCH 29.0 pg (27-33) 01/20/25 22:14 MCHC 33.3 g/dL (30-55) 01/20/25 22:14 RDW 14.0 % (12.1-15.1) 01/20/25 22:14 Plt Count 187 10^3/cmm (157-399) 01/20/25 22:14 MPV 9.8 fL (7.4-10.4) 01/20/25 22:14 Neut % (Auto) 60.4 % 01/20/25 22:14 Lymph % (Auto) 30.8 % 01/20/25 22:14 [place] % (Auto) 7.5 % 01/20/25 22:14 Eos % (Auto) 0.5 % 01/20/25 22:14 Baso % (Auto) 0.3 % 01/20/25 22:14 Neut # (Auto) 4.01 10^3/uL (1.8-7.7) 01/20/25 22:14 Lymph # (Auto) 2.0 10^3/uL (0.8-4.8) 01/20/25 22:14 [place] # (Auto) 0.5 10^3/uL (0.2-0.9) 01/20/25 22:14 Eos # (Auto) 0.0 10^3/uL (0.0-0.8) 01/20/25 22:14 Baso # (Auto) 0.0 10^3/uL (0.0-0.1) 01/20/25 22:14 Nucleated RBC % (auto) 0 % 01/20/25 22:14 Nucleated RBCs # 0.0 /100WBC 01/20/25 22:14 PT 13.70 SECONDS (12.1-14.9) 01/20/25 22:47 INR 0.99 (0.8-1.2) 01/20/25 22:47 APTT 27.9 SECONDS (23.9-36.7) 01/20/25 22:47 Sodium 139 mmol/L (136-145) 01/20/25 22:47 Potassium 3.8 mmol/L (3.5-5.1) 01/20/25 22:47 Chloride 100 mmol/L (98-107) 01/20/25 22:47 Carbon Dioxide 28 mmol/L (22-29) 01/20/25 22:47 Anion Gap 14.8 (5-19) 01/20/25 22:47 BUN 14 mg/dL (6-20) 01/20/25 22:47 Creatinine 0.8 mg/dL (0.7-1.2) 01/20/25 22:47 GFR Calculation 104.5 mL/min (90-130) 01/20/25 22:47 Glucose 226 mg/dL (65-115) H 01/20/25 22:47 POC Glucose 236 mg/dL (70-110) H 01/20/25 22:26 Calculated Osmolality 296 mOsm/kg (285-295) H 01/20/25 22:47 Lactic Acid 1.3 mmol/L (0.5-2.2) 01/20/25 22:14 Calcium 9.2 mg/dL (8.5-10.5) 01/20/25 22:47 Total Bilirubin 0.2 mg/dL (0.15-1.2) 01/20/25 22:47 AST 13 U/L (0-40) 01/20/25 22:47 ALT 17 U/L (0-41) 01/20/25 22:47 Alkaline Phosphatase 105 U/L (40-130) 01/20/25 22:47 Troponin T Baseline < 6 ng/L (0-15) 01/20/25 22:14 Total Protein 6.5 g/dL (6.6-8.7) L 01/20/25 22:47 Albumin 4.0 g/dL (3.5-5.2) 01/20/25 22:47 Globulin 2.5 g/dL (1.3-4.6) 01/20/25 22:47 Urine Color Yellow (Yellow) 01/20/25 23:23 Urine Appearance Clear (CLEAR) 01/20/25 23:23 Urine pH 8.0 (5-7) A 01/20/25 23:23 Ur Specific [place] 1.032 (1.005-1.030) H 01/20/25 23:23 Urine Protein Negative (Negative) 01/20/25 23:23 Urine Glucose (UA) 1+ (Normal) H 01/20/25 23:23 Urine Ketones Negative (Negative) 01/20/25 23:23 Urine Blood Negative (Negative) 01/20/25 23:23 Urine Nitrate Negative (Negative) 01/20/25 23:23 Urine Bilirubin Negative (Negative) 01/20/25 23:23 Urine Urobilinogen 1.0 mg/dL (Negative) 01/20/25 23:23 Ur Leukocyte Esterase Negative (Negative) 01/20/25 23:23 Urine RBC 0-2 /hpf (0-2) 01/20/25 23:23 Urine WBC 0-5 /hpf (0-5) 01/20/25 23:23 Ur Squamous Epith Cells 0-5 /hpf (0-5) 01/20/25 23:23 Amorphous Sediment Not Reportable 01/20/25 23:23 Urine Bacteria None seen /hpf (NONE) 01/20/25 23:23 Hyaline Casts 0-4 /lpf H 01/20/25 23:23 All radiology interpretation(s) finalized by discharge EKG Data EKG 1: I personally reviewed and interpreted this EKG as follows: EKG interpretation date: 01/21/25 EKG interpretation time: 21:28 Prior EKG tracings: available for review Interpretation: Reviewed with physician. Sinus tachycardia. Rate 124. No significant change from previous on 01/10/2025. No acute STEMI. Discharge Plan Discharge Condition: Stable Prescriptions: No Action gabapentin [Neurontin] 300 mg capsule 300 mg PO BID (DME) FreeStyle Stacey 3 Ronceverte Misc See Rx Instructions .Route Qty: 1 0RF Rx Instructions: As directed (DME) FreeStyle Stacey 3 Sensor Device See Rx Instructions .Route Qty: 2 3RF Rx Instructions: As directed omeprazole 40 mg capsule,delayed release(DR/EC) 40 mg PO DAILY Qty: 30 0RF loperamide [Anti-Diarrheal (loperamide)] 2 mg capsule 2 mg PO Q6H PRN (Reason: Diarrhea) albuterol sulfate 90 mcg/actuation HFA aerosol inhaler 2 puff inhalation Q4H PRN (Reason: Shortness Of Breath) icosapent ethyl [Vascepa] 1 gram capsule 2 g PO BID PreserVision AREDS 4,296 mcg-226 mg-90 mg capsule 1 cap PO BID olanzapine 5 mg tablet,disintegrating 5 mg PO BID PRN (Reason: agitation/anxiety) Qty: 60 3RF Triple Antibiotic 3.5mg-400 unit- 5,000 unit/gram ointment 1 applic topical DAILY PRN (Reason: Skin Irritation) venlafaxine 150 mg capsule,extended release 24hr 300 mg PO QAM 30 Days Qty: 60 3RF aripiprazole 30 mg tablet 15 mg PO BID 30 Days Qty: 30 3RF divalproex 500 mg tablet extended release 24 hr 2,000 mg PO BEDTIME 30 Days Qty: 120 3RF insulin lispro [Humalog KwikPen Insulin] 100 unit/mL insulin pen See Rx Instructions .ROUTE .COMPLEX Rx Instructions: Give 5 units subcutaneously every 4 hours as needed for blood sugars above 400. (DME) Dexcom G7 Strategic [employer] Specialist Misc See Rx Instructions .Route Qty: 1 0RF Rx Instructions: As directed Mounjaro 12.5 mg/0.5 mL pen injector 12.5 mg SUBCUT Q7D Qty: 2 3RF Eliquis 5 mg tablet 5 mg PO BID Qty: 180 3RF ondansetron 4 mg tablet,disintegrating 4 mg PO Q8H PRN (Reason: nausea and vomiting) Qty: 20 0RF metoprolol succinate 25 mg tablet extended release 24 hr 25 mg PO DAILY Qty: 90 3RF Glucagon Emergency Kit (human) 1 mg recon soln See Rx Instructions .ROUTE .COMPLEX Qty: 1 0RF Dose Instruction: inject 1mg SUBCUTANEOUSLY EVERY 20 MINUTES NEEDED FOR hypoglycemia UNTIL target blood sugar attained Rx Instructions: inject 1mg SUBCUTANEOUSLY EVERY 20 MINUTES NEEDED FOR hypoglycemia UNTIL target blood sugar attained diazepam 5 mg tablet 5 mg PO TID Qty: 90 1RF zonisamide 100 mg capsule 200 mg PO DAILY Qty: 180 0RF (DME) Dexcom G7 Sensor Device See Rx Instructions .ROUTE .COMPLEX Qty: 3 3RF Dose Instruction: USE DIRECTED Rx Instructions: USE DIRECTED aspirin 81 mg tablet,delayed release (DR/EC) 81 mg PO DAILY acetaminophen [Pain Reliever (acetaminophen)] 500 mg tablet 1,000 mg PO Q6H PRN (Reason: Pain) Jardiance 25 mg tablet 25 mg PO DAILY Biofreeze (menthol) 10 % cream 1 applic topical TID PRN (Reason: muscle pain) Qty: 85 0RF bismuth subsalicylate [Stomach Relief] 262 mg/15 mL suspension 262 mg PO Q4H PRN (Reason: Indigestion) irbesartan 150 mg tablet 150 mg PO DAILY atorvastatin 80 mg tablet 80 mg PO BEDTIME promethazine 25 mg tablet 25 mg PO Q6H PRN (Reason: Nausea And Vomiting) glucose 4 gram Tablet,Chewable 16 g PO PRN PRN (Reason: LOW BLOOD SUGAR) Rx Instructions: for bs lower than 60 ibuprofen 600 mg tablet 600 mg PO TID PRN (Reason: Pain) cetirizine 10 mg Tablet 10 mg PO DAILY PRN (Reason: allergies) pioglitazone 45 mg tablet 45 mg PO DAILY metformin 1,000 mg tablet 1,000 mg PO DAILY Referrals: Bautista Ruiz MD [Primary Care Provider] - Print Language: Turkish Coding Level of Care Code ED Gas Adjuster for Dasha Nix
[2025-01-20 23:33] LABS: Bilirubin Urine Negative (Negative); Blood Urine Negative (Negative); Glucose Urine UA 1+ (Normal); Ketones Urine Negative (Negative); Leukocyte Esterase Urine Negative (Negative); Nitrate Urine Negative (Negative); Protein Urine Negative (Negative); Urine Appearance Clear (CLEAR); Urine Color Yellow (Yellow)
[2025-01-20 23:38] LABS: Add Urine Microscopic? YES; Bacteria Urine None Seen /hpf; Hyaline Casts Urine 0-4 /lpf; RBC Urine 0-2 /hpf (0-2); Squamous Epithelial Cell Urine 0-5 /hpf (0-5); WBC Urine 0-5 /hpf (0-5)
[2025-01-20 23:39] LABS: Alanine Aminotransferase 17 U/L (0-41); Alkaline Phosphatase 105 U/L (40-130); Anion Gap 14.8 (5-19); Aspartate Amino Transferase 13 U/L (0-40); Blood Urea Nitrogen 14 mg/dL (6-20); Calcium 9.2 mg/dL (8.5-10.5); Carbon Dioxide 28 mmol/L (22-29); Chloride 100 mmol/L (98-107); Creatinine Clr Calc Pharmacy 150.8864; Globulin 2.5 g/dL (1.3-4.6); Glomerular Filtration Rate 104.5 mL/min (90-130); Glucose 226 mg/dL (65-115); Osmolality Calculated 296 mOsm/kg (285-295); Potassium 3.8 mmol/L (3.5-5.1); Sodium 139 mmol/L (136-145); Total Bilirubin 0.2 mg/dL (0.15-1.2); Total Protein 6.5 g/dL (6.6-8.7)
[2025-01-20 23:49] LABS: Specific Gravity, Urine 1.032 (1.005-1.030)
[2025-01-20 23:59] LABS: INR 0.99 (0.8-1.2)
[2025-01-21] VITALS: BP 106/99; PULSE 103; RESP 15; O2SAT 93
[2025-01-21] LABS: Partial Thromboplastin Time 27.9 SECONDS (23.9-36.7)
[2025-01-21 00:30] VITALS: BP 120/63; PULSE 103; RESP 92; O2SAT 16
[2025-01-21 00:39] VITALS: BP 120/63; PULSE 103; O2SAT 91
== END 2025-01-21 00:43 | disposition home or self-care (01) ==
PROVIDERS: Emergency Provider Physician Assistant; PCP Family Medicine
DX: R55 Syncope and collapse (principal); S09.8XXA Other specified injuries of head, initial encounter; Z79.4 Long term (current) use of insulin; Z79.01 Long term (current) use of anticoagulants; Z79.82 Long term (current) use of aspirin; Z79.84 Long term (current) use of oral hypoglycemic drugs; W19.XXXA Unspecified fall, initial encounter
CPT/HCPCS: 36415; 36416; 70450; 71045; 80053; 81001; 82962; 83605; 84484; 85025; 85610; 85730; 93005; 99285

== ENCOUNTER 2025-01-26 19:52 | Emergency (ER) | payer MEDICARE, MEDICAID, SELFPAY ==
--- NOTE | 2025-01-26 20:00 | XRR_ITS ---
PROCEDURE INFORMATION: Exam: XR Left Hand Exam date and time: 01/26/2025 8:45 PM Age: 44 years old Clinical indication: Injury or trauma; Other: Smashed lt hand; Crushing; Left; Additional info: Pain TECHNIQUE: Imaging protocol: Radiologic exam of the left hand. Views: 3 or more views. COMPARISON: No relevant prior studies available. FINDINGS: Bones/joints: Normal. Soft tissues: Normal. XR/XR hand LT min 3V* [id number] IMPRESSION: Negative for fracture or dislocation.
[2025-01-26 20:10] VITALS: BP 127/83; PULSE 110; TEMP 36.3; O2SAT 99
--- NOTE | 2025-01-26 20:51 | W.ED.EXTPRO ---
HPI - Extremity Problem General: Chief complaint: Extremity Injury, Upper Stated complaint: L hand pain Time Seen by Provider: 01/26/25 20:40 Source: patient Mode of arrival: ambulatory Limitations: no limitations History of Present Illness: 44-year-old male states that he got his hand smashed between a car door and a metal railing earlier today. He does have a hematoma to the middle of his hand he states he has pain at site he rates a 2 out of 10 he is able to make a fist denies any other injuries. Pain is worse with palpation Associated symptoms: Deny chest pain, fever(s) or rash Related Data Home Medications ?Medication ?Instructions ?Recorded ?Confirmed gabapentin 300 mg capsule 300 mg PO BID 10/11/22 01/14/25 (Neurontin) bismuth subsalicylate 262 mg/15 mL 262 mg PO Q4H PRN Indigestion 03/16/23 01/14/25 oral suspension (Stomach Relief) irbesartan 150 mg tablet 150 mg PO DAILY 03/16/23 01/14/25 acetaminophen 500 mg tablet (Pain 1,000 mg PO Q6H PRN Pain 10/24/23 01/14/25 Reliever (acetaminophen)) aspirin 81 mg tablet,delayed 81 mg PO DAILY 10/24/23 01/14/25 release empagliflozin 25 mg tablet 25 mg PO DAILY 10/24/23 01/14/25 (Jardiance) atorvastatin 80 mg tablet 80 mg PO BEDTIME 12/31/23 01/14/25 glucose 4 gram chewable tablet 16 g PO PRN PRN LOW BLOOD SUGAR 12/31/23 01/14/25 ibuprofen 600 mg tablet 600 mg PO TID PRN Pain 12/31/23 01/14/25 promethazine 25 mg tablet 25 mg PO Q6H PRN Nausea And 12/31/23 01/14/25 Vomiting albuterol sulfate 90 mcg/actuation 2 puff inhalation Q4H PRN 08/05/24 01/14/25 aerosol inhaler Shortness Of Breath icosapent ethyl 1 gram capsule 2 g PO BID 08/05/24 01/14/25 (Vascepa) loperamide 2 mg capsule 2 mg PO Q6H PRN Diarrhea 08/05/24 01/14/25 (Anti-Diarrheal (loperamide)) vitamins A,C,A-dbsm-lgeadn 4,296 1 cap PO BID 08/05/24 01/14/25 mcg-226 mg-90 mg capsule (PreserVision AREDS) cetirizine 10 mg tablet 10 mg PO DAILY PRN allergies 10/23/24 01/14/25 insulin lispro 100 unit/mL See Rx Instructions .Route .COMPLEX 11/11/24 01/14/25 subcutaneous pen (Humalog KwikPen (U-100) Insulin) neomycin-bacitracn Zn-polymyx 3.5 1 applic topical DAILY PRN Skin 11/27/24 01/14/25 mg-400 unit-5,000 unit/gram top Irritation oint (Triple Antibiotic) metformin 1,000 mg tablet 1,000 mg PO DAILY 01/14/25 01/14/25 pioglitazone 45 mg tablet 45 mg PO DAILY 01/14/25 01/14/25 Previous Rx's ?Medication ?Instructions ?Recorded omeprazole 40 mg capsule,delayed 40 mg PO DAILY #30 caps 04/19/24 release blood-glucose meter,continuous #1 ea 05/14/24 (FreeStyle Stacey 3 [place]) blood-glucose sensor (FreeStyle #2 ea 05/14/24 Stacey 3 Sensor device) ondansetron 4 mg disintegrating 4 mg PO Q8H PRN nausea and 07/02/24 tablet vomiting #20 tabs olanzapine 5 mg disintegrating 5 mg PO BID PRN agitation/anxiety 08/05/24 tablet #60 tabs blood-glucose meter,continuous #1 ea 08/13/24 ([employer] G7 Mobile Application Architect) menthol 10 % topical cream 1 applic topical TID PRN muscle 09/03/24 (Biofreeze (menthol)) pain #85 grams metoprolol succinate 25 mg 25 mg PO DAILY #90 tabs 11/04/24 tablet,extended release 24 hr aripiprazole 30 mg tablet 15 mg (1/2 x 30 mg) PO BID 30 days 11/27/24 #30 tabs divalproex 500 mg tablet,extended 2,000 mg (4 x 500 mg) PO BEDTIME 11/27/24 release 24 hr 30 days #120 tabs venlafaxine 150 mg 300 mg (2 x 150 mg) PO QAM 30 days 11/27/24 capsule,extended release 24 hr #60 caps glucagon 1 mg solution for See Rx Instructions .Route 12/17/24 injection (Glucagon Emergency Kit) .COMPLEX #1 ea diazepam 5 mg tablet 5 mg PO TID #90 tabs 12/26/24 zonisamide 100 mg capsule 200 mg (2 x 100 mg) PO DAILY #180 12/30/24 caps tirzepatide 12.5 mg/0.5 mL 12.5 mg (0.5 mL) SUBCUT Q7D #2 mL 01/01/25 subcutaneous pen injector (Mounjaro) blood-glucose sensor (Dexcom G7 #3 ea 01/20/25 Sensor device) apixaban 5 mg tablet (Eliquis) See Rx Instructions .Route 01/21/25 .COMPLEX #180 tabs Allergies Allergy/AdvReac Type Severity Reaction Status Date / Time No Known Allergies Allergy Verified 01/26/25 20:15 Review of Systems Const: Denies: fever(s), chills, body aches or change in appetite ENMT: Denies: throat pain or dental pain Card: Denies: chest pain Resp: Denies: dyspnea GI: Denies: abdominal pain, nausea, vomiting or diarrhea Musc: Reports: extremity pain; Denies: neck pain or back pain Skin/Breast: Denies: rash Neuro: Denies: headache(s) PFSH ED PFSH: Medical History Coronary-myocardial bridge Peripheral neuropathy Type 2 diabetes mellitus Hyperlipidemia Hypertension Pulmonary embolism Other reactions to severe stress Bipolar 1 disorder Most recent episode depressed Fracture of [facility] Psychiatric care Surgical History History of appendectomy Social History Smoking and tobacco/nicotine status: current some day tobacco/nicotine user (some vaping) e-cigarettes Alcohol intake: current Alcohol intake frequency: few times a month Substance/Drug Use: never Marital status: Single Physical Exam Const: COMMON NORMALS: no acute distress, patient oriented x3 and healthy appearing HENMT: COMMON NORMALS: normocephalic and atraumatic HEAD & SCALP: normocephalic and atraumatic Eye: COMMON NORMALS: conjunctivae normal CONJUNCTIVA: Yes conjunctivae normal Neck/C-Spine: COMMON NORMALS: full ROM and supple Chest: COMMONS NORMALS: normal inspection of the chest Resp: COMMON NORMALS: normal respiratory effort Cardio: COMMON NORMALS: regular rate RATE: regular rate Extremity: NARRATIVE EXTREMITY EXAM: Contusion noted in the middle of the left hand slight tenderness Neuro: COMMON NORMALS: patient oriented x3, moves all extremities and no focal motor deficits Psych: COMMON NORMALS: mental status grossly normal, Normal thought process present and cooperative THOUGHT PROCESS: Normal thought process present Skin: COMMON NORMALS: no rashes or lesions noted and no wounds GENERAL SKIN EXAM: no rashes or lesions noted Course Vital Signs: Vital signs: Vital Signs Temperature 97.4 F L 01/26/25 20:10 Pulse Rate 110 H 01/26/25 20:10 Blood Pressure 127/83 01/26/25 20:10 Pulse Oximetry 99 01/26/25 20:10 Oxygen Delivery Me thod Room Air 01/26/25 20:10 MDM - Extremity (Nontraumatic) Medical Decision Making Patient presents for left hand contusion x-rays here are negative patient stable for discharge follow-up PCP return if worsening. Medical Records I reviewed the patient's medical records. XR interpretation done by ED provider, pending radiology final review ED provider radiology interpretation(s): X-ray left hand no acute fracture Discharge Plan Discharge Patient Disposition: Home Clinical Impression: Contusion of left hand Qualifiers: Encounter type: initial encounter Qualified Code(s): S60.222A - Contusion of left hand, initial encounter Condition: Stable Prescriptions: No Action gabapentin [Neurontin] 300 mg capsule 300 mg PO BID (DME) FreeStyle Stacey 3 [place] Misc See Rx Instructions .Route Qty: 1 0RF Rx Instructions: As directed (DME) FreeStyle Stacey 3 Sensor Device See Rx Instructions .Route Qty: 2 3RF Rx Instructions: As directed omeprazole 40 mg capsule,delayed release(DR/EC) 40 mg PO DAILY Qty: 30 0RF loperamide [Anti-Diarrheal (loperamide)] 2 mg capsule 2 mg PO Q6H PRN (Reason: Diarrhea) albuterol sulfate 90 mcg/actuation HFA aerosol inhaler 2 puff inhalation Q4H PRN (Reason: Shortness Of Breath) icosapent ethyl [Vascepa] 1 gram capsule 2 g PO BID PreserVision AREDS 4,296 mcg-226 mg-90 mg capsule 1 cap PO BID olanzapine 5 mg tablet,disintegrating 5 mg PO BID PRN (Reason: agitation/anxiety) Qty: 60 3RF Triple Antibiotic 3.5mg-400 unit- 5,000 unit/gram ointment 1 applic topical DAILY PRN (Reason: Skin Irritation) venlafaxine 150 mg capsule,extended release 24hr 300 mg PO QAM 30 Days Qty: 60 3RF aripiprazole 30 mg tablet 15 mg PO BID 30 Days Qty: 30 3RF divalproex 500 mg tablet extended release 24 hr 2,000 mg PO BEDTIME 30 Days Qty: 120 3RF insulin lispro [Humalog KwikPen Insulin] 100 unit/mL insulin pen See Rx Instructions .ROUTE .COMPLEX Rx Instructions: Give 5 units subcutaneously every 4 hours as needed for blood sugars above 400. (DME) Dexcom G7 Mobile Application Architect Misc See Rx Instructions .Route Qty: 1 0RF Rx Instructions: As directed Mounjaro 12.5 mg/0.5 mL pen injector 12.5 mg SUBCUT Q7D Qty: 2 3RF ondansetron 4 mg tablet,disintegrating 4 mg PO Q8H PRN (Reason: nausea and vomiting) Qty: 20 0RF metoprolol succinate 25 mg tablet extended release 24 hr 25 mg PO DAILY Qty: 90 3RF Glucagon Emergency Kit (human) 1 mg recon soln See Rx Instructions .ROUTE .COMPLEX Qty: 1 0RF Dose Instruction: inject 1mg SUBCUTANEOUSLY EVERY 20 MINUTES NEEDED FOR hypoglycemia UNTIL target blood sugar attained Rx Instructions: inject 1mg SUBCUTANEOUSLY EVERY 20 MINUTES NEEDED FOR hypoglycemia UNTIL target blood sugar attained diazepam 5 mg tablet 5 mg PO TID Qty: 90 1RF zonisamide 100 mg capsule 200 mg PO DAILY Qty: 180 0RF (DME) Dexcom G7 Sensor Device See Rx Instructions .ROUTE .COMPLEX Qty: 3 3RF Dose Instruction: USE DIRECTED Rx Instructions: USE DIRECTED Eliquis 5 mg tablet See Rx Instructions .ROUTE .COMPLEX Qty: 180 3RF Dose Instruction: TAKE 1 TABLET BY MOUTH TWICE DAILY Rx Instructions: TAKE 1 TABLET BY MOUTH TWICE DAILY aspirin 81 mg tablet,delayed release (DR/EC) 81 mg PO DAILY acetaminophen [Pain Reliever (acetaminophen)] 500 mg tablet 1,000 mg PO Q6H PRN (Reason: Pain) Jardiance 25 mg tablet 25 mg PO DAILY Biofreeze (menthol) 10 % cream 1 applic topical TID PRN (Reason: muscle pain) Qty: 85 0RF bismuth subsalicylate [Stomach Relief] 262 mg/15 mL suspension 262 mg PO Q4H PRN (Reason: Indigestion) irbesartan 150 mg tablet 150 mg PO DAILY atorvastatin 80 mg tablet 80 mg PO BEDTIME promethazine 25 mg tablet 25 mg PO Q6H PRN (Reason: Nausea And Vomiting) glucose 4 gram Tablet,Chewable 16 g PO PRN PRN (Reason: LOW BLOOD SUGAR) Rx Instructions: for bs lower than 60 ibuprofen 600 mg tablet 600 mg PO TID PRN (Reason: Pain) cetirizine 10 mg Tablet 10 mg PO DAILY PRN (Reason: allergies) pioglitazone 45 mg tablet 45 mg PO DAILY metformin 1,000 mg tablet 1,000 mg PO DAILY Discharge Orders: Discharge ED (Routine); Ordered 01/26/25 Ordered By: Wale Vyas Referrals: Bautista Ruiz MD [Primary Care Provider] - Discharge Diet: Advance as tolerated Discharge Activity: Resume usual activity Patient Instructions: Contusion in Adults (ED) Print Language: Slovenian Coding Level of Care Code ED Internal Communications Writer for Dasha Nix
[2025-01-26 21:40] VITALS: BP 133/81; PULSE 98; O2SAT 98
== END 2025-01-26 21:41 | disposition home or self-care (01) ==
PROVIDERS: Emergency Provider Emergency Medicine; PCP Family Medicine
DX: S60.222A Contusion of left hand, initial encounter (principal); Z79.4 Long term (current) use of insulin; Z79.01 Long term (current) use of anticoagulants; Z79.82 Long term (current) use of aspirin; Z79.84 Long term (current) use of oral hypoglycemic drugs; F17.290 Nicotine dependence, other tobacco product, uncomplicated; E78.5 Hyperlipidemia, unspecified; I10 Essential (primary) hypertension; E11.42 Type 2 diabetes mellitus with diabetic polyneuropathy; W23.0XXA Caught, crushed, jammed, or pinched between moving objects, initial encounter
CPT/HCPCS: 73130; 99283

== ENCOUNTER 2025-01-30 00:31 | Emergency (ER) | payer MEDICARE, MEDICAID, SELFPAY ==
[2025-01-30 00:42] VITALS: BP 116/73; PULSE 109; RESP 18; TEMP 36.9; O2SAT 95; BMI 35.6
--- NOTE | 2025-01-30 00:48 | CTR_ITS ---
PROCEDURE INFORMATION: Exam: CT Head Without Contrast Exam date and time: 01/30/2025 1:06 AM Age: 44 years old Clinical indication: Injury or trauma; Fall; Blunt trauma (contusions or hematomas); Additional info: Syncope, fall, posterior head trauma TECHNIQUE: Imaging protocol: Computed tomography of the head without contrast. Radiation optimization: All CT scans at this facility use at least one of these dose optimization techniques: automated exposure control; mA and/or kV adjustment per patient size (includes targeted exams where dose is matched to clinical indication); or iterative reconstruction. COMPARISON: CT head wo con* [id number] 01/20/2025 10:17 PM RADIATION DOSE METRICS: Total DLP (mGy-cm): 1311.98 FINDINGS: Brain: No acute intracranial hemorrhage or mass effect. No definite acute infarct by CT. MRI would be more sensitive/specific for detection, as clinically directed. Cerebral ventricles: Ventricle size is normal for age. Paranasal sinuses: Included paranasal sinuses are essentially clear. Mastoid air cells: No significant acute finding. Bones: No definite acute skull fracture. Soft tissues: No significant acute finding. CT/CT head wo con* [id number] IMPRESSION: 1. No acute intracranial hemorrhage or mass effect. 2. No definite acute infarct by CT, see above. 3. Other findings discussed above.
--- NOTE | 2025-01-30 01:20 | W.ED.SYNCOPE ---
HPI - Syncope General: Chief Complaint: Syncope Stated Complaint: Syncopal episode Time Seen by Provider: 01/30/25 00:47 History of Present Illness: Patient brought in by EMS after syncopal episode in hitting his head. Patient was doing chores in the kitchen when he passed out fell and hit the back of his head. Patient is complaining of headache at this time. Patient is on Eliquis. Related Data Home Medications ?Medication ?Instructions ?Recorded ?Confirmed gabapentin 300 mg capsule 300 mg PO BID 10/11/22 01/14/25 (Neurontin) bismuth subsalicylate 262 mg/15 mL 262 mg PO Q4H PRN Indigestion 03/16/23 01/14/25 oral suspension (Stomach Relief) irbesartan 150 mg tablet 150 mg PO DAILY 03/16/23 01/14/25 acetaminophen 500 mg tablet (Pain 1,000 mg PO Q6H PRN Pain 10/24/23 01/14/25 Reliever (acetaminophen)) aspirin 81 mg tablet,delayed 81 mg PO DAILY 10/24/23 01/14/25 release empagliflozin 25 mg tablet 25 mg PO DAILY 10/24/23 01/14/25 (Jardiance) atorvastatin 80 mg tablet 80 mg PO BEDTIME 12/31/23 01/14/25 glucose 4 gram chewable tablet 16 g PO PRN PRN LOW BLOOD SUGAR 12/31/23 01/14/25 ibuprofen 600 mg tablet 600 mg PO TID PRN Pain 12/31/23 01/14/25 promethazine 25 mg tablet 25 mg PO Q6H PRN Nausea And 12/31/23 01/14/25 Vomiting albuterol sulfate 90 mcg/actuation 2 puff inhalation Q4H PRN 08/05/24 01/14/25 aerosol inhaler Shortness Of Breath icosapent ethyl 1 gram capsule 2 g PO BID 08/05/24 01/14/25 (Vascepa) loperamide 2 mg capsule 2 mg PO Q6H PRN Diarrhea 08/05/24 01/14/25 (Anti-Diarrheal (loperamide)) vitamins A,C,E-ymot-sctfij 4,296 1 cap PO BID 08/05/24 01/14/25 mcg-226 mg-90 mg capsule (PreserVision AREDS) cetirizine 10 mg tablet 10 mg PO DAILY PRN allergies 10/23/24 01/14/25 insulin lispro 100 unit/mL See Rx Instructions .Route .COMPLEX 11/11/24 01/14/25 subcutaneous pen (Humalog KwikPen (U-100) Insulin) neomycin-bacitracn Zn-polymyx 3.5 1 applic topical DAILY PRN Skin 11/27/24 01/14/25 mg-400 unit-5,000 unit/gram top Irritation oint (Triple Antibiotic) metformin 1,000 mg tablet 1,000 mg PO DAILY 01/14/25 01/14/25 pioglitazone 45 mg tablet 45 mg PO DAILY 01/14/25 01/14/25 Previous Rx's ?Medication ?Instructions ?Recorded omeprazole 40 mg capsule,delayed 40 mg PO DAILY #30 caps 04/19/24 release blood-glucose meter,continuous #1 ea 05/14/24 (FreeStyle Stacey 3 [place]) blood-glucose sensor (FreeStyle #2 ea 05/14/24 Stacey 3 Sensor device) ondansetron 4 mg disintegrating 4 mg PO Q8H PRN nausea and 07/02/24 tablet vomiting #20 tabs olanzapine 5 mg disintegrating 5 mg PO BID PRN agitation/anxiety 08/05/24 tablet #60 tabs blood-glucose meter,continuous #1 ea 08/13/24 ([employer] G7 [employer]) menthol 10 % topical cream 1 applic topical TID PRN muscle 09/03/24 (Biofreeze (menthol)) pain #85 grams metoprolol succinate 25 mg 25 mg PO DAILY #90 tabs 11/04/24 tablet,extended release 24 hr aripiprazole 30 mg tablet 15 mg (1/2 x 30 mg) PO BID 30 days 11/27/24 #30 tabs divalproex 500 mg tablet,extended 2,000 mg (4 x 500 mg) PO BEDTIME 11/27/24 release 24 hr 30 days #120 tabs venlafaxine 150 mg 300 mg (2 x 150 mg) PO QAM 30 days 11/27/24 capsule,extended release 24 hr #60 caps glucagon 1 mg solution for See Rx Instructions .Route 12/17/24 injection (Glucagon Emergency Kit) .COMPLEX #1 ea diazepam 5 mg tablet 5 mg PO TID #90 tabs 12/26/24 zonisamide 100 mg capsule 200 mg (2 x 100 mg) PO DAILY #180 12/30/24 caps tirzepatide 12.5 mg/0.5 mL 12.5 mg (0.5 mL) SUBCUT Q7D #2 mL 01/01/25 subcutaneous pen injector (Mounjaro) blood-glucose sensor (Dexcom G7 #3 ea 01/20/25 Sensor device) apixaban 5 mg tablet (Eliquis) See Rx Instructions .Route 01/21/25 .COMPLEX #180 tabs Allergies Allergy/AdvReac Type Severity Reaction Status Date / Time No Known Allergies Allergy Verified 01/26/25 20:15 Review of Systems General: Reports: 10 or more systems reviewed and unremarkable except in HPI and below PFSH ED PFSH: Medical History Coronary-myocardial bridge Peripheral neuropathy Type 2 diabetes mellitus Hyperlipidemia Hypertension Pulmonary embolism Other reactions to severe stress Bipolar 1 disorder Most recent episode depressed Fracture of [facility] Psychiatric care Surgical History History of appendectomy Social History Smoking and tobacco/nicotine status: current some day tobacco/nicotine user (some vaping) e-cigarettes Alcohol intake: current Alcohol intake frequency: few times a month Substance/Drug Use: never Marital status: Single Physical Exam Const: COMMON NORMALS: no acute distress, average body habitus, patient oriented x3, no limitations, healthy appearing, alert and well nourished HENMT: COMMON NORMALS: normocephalic, atraumatic, hearing grossly normal bilaterally, external ears normal, EAC's normal, TM's normal bilaterally, Normal external nose present, moist oral mucous membranes and oropharynx normal HEAD & SCALP: normocephalic and atraumatic NOSE: Normal external nose present EXTERNAL EAR: Yes external ears normal EXTERNAL AUDITORY CANAL: EAC's normal TYMPANIC MEMBRANE: TM's normal bilaterally Eye: COMMON NORMALS: Equal, round and reactive pupils present, EOMs intact bilaterally, conjunctivae normal and no scleral icterus CONJUNCTIVA: Yes conjunctivae normal PUPIL: Yes Equal, round and reactive pupils present Neck/C-Spine: COMMON NORMALS: full ROM, no lymphadenopathy, supple, no meningeal signs, no JVD and Thyroid normal THYROID: Thyroid normal Chest: COMMONS NORMALS: normal inspection of the chest and normal palpation of entire chest wall Resp: COMMON NORMALS: normal respiratory effort, No retractions, No use of accessory muscles and clear to auscultation bilaterally AUSCULTATION: clear to auscultation bilaterally Cardio: COMMON NORMALS: no JVD, regular rate, regular rhythm, S1 normal heart sound present, S2 normal heart sound present, No gallops present (Cardio), No clicks present (Cardio), No murmurs present (Cardio) and No rub (Cardio) RATE: regular rate RHYTHM: regular rhythm HEART SOUNDS: S1 normal heart sound present and S2 normal heart sound present GI: COMMON NORMALS: Normal to inspection, nondistended, normoactive bowel sounds present, Soft to palpation, non-tender, No hepatosplenomegaly present and no masses PALPATION: Yes Soft to palpation and Yes No hepatosplenomegaly present Neuro: COMMON NORMALS: patient oriented x3 SENSORIUM/ORIENTATION: Yes alert MENINGEAL SIGNS: Yes no meningeal signs Course Vital Signs: Vital signs: Vital Signs Temperature 98.4 F 01/30/25 00:42 Pulse Rate 109 H 01/30/25 00:42 Respiratory Rate 18 01/30/25 00:42 Blood Pressure 116/73 01/30/25 00:42 Pulse Oximetry 95 01/30/25 00:42 MDM - Syncope Medical Decision Making Patient's head CT was read off as negative for acute changes, patient be discharged back to his facility. Medical Records I reviewed the patient's medical records. Lab Data I reviewed the patient's lab results. Radiology Impressions Head CT 01/30/25 00:48 IMPRESSION: 1. No acute intracranial hemorrhage or mass effect. 2. No definite acute infarct by CT, see above. 3. Other findings discussed above. All radiology interpretation(s) finalized by discharge Discharge Plan Discharge Patient Disposition: Home Clinical Impression: Syncope, Fall Condition: Stable Prescriptions: No Action gabapentin [Neurontin] 300 mg capsule 300 mg PO BID (DME) FreeStyle Stacey 3 [place] Misc See Rx Instructions .Route Qty: 1 0RF Rx Instructions: As directed (DME) FreeStyle Stacey 3 Sensor Device See Rx Instructions .Route Qty: 2 3RF Rx Instructions: As directed omeprazole 40 mg capsule,delayed release(DR/EC) 40 mg PO DAILY Qty: 30 0RF loperamide [Anti-Diarrheal (loperamide)] 2 mg capsule 2 mg PO Q6H PRN (Reason: Diarrhea) albuterol sulfate 90 mcg/actuation HFA aerosol inhaler 2 puff inhalation Q4H PRN (Reason: Shortness Of Breath) icosapent ethyl [Vascepa] 1 gram capsule 2 g PO BID PreserVision AREDS 4,296 mcg-226 mg-90 mg capsule 1 cap PO BID olanzapine 5 mg tablet,disintegrating 5 mg PO BID PRN (Reason: agitation/anxiety) Qty: 60 3RF Triple Antibiotic 3.5mg-400 unit- 5,000 unit/gram ointment 1 applic topical DAILY PRN (Reason: Skin Irritation) venlafaxine 150 mg capsule,extended release 24hr 300 mg PO QAM 30 Days Qty: 60 3RF aripiprazole 30 mg tablet 15 mg PO BID 30 Days Qty: 30 3RF divalproex 500 mg tablet extended release 24 hr 2,000 mg PO BEDTIME 30 Days Qty: 120 3RF insulin lispro [Humalog KwikPen Insulin] 100 unit/mL insulin pen See Rx Instructions .ROUTE .COMPLEX Rx Instructions: Give 5 units subcutaneously every 4 hours as needed for blood sugars above 400. (DME) Dexcom G7 [employer] Misc See Rx Instructions .Route Qty: 1 0RF Rx Instructions: As directed Mounjaro 12.5 mg/0.5 mL pen injector 12.5 mg SUBCUT Q7D Qty: 2 3RF ondansetron 4 mg tablet,disintegrating 4 mg PO Q8H PRN (Reason: nausea and vomiting) Qty: 20 0RF metoprolol succinate 25 mg tablet extended release 24 hr 25 mg PO DAILY Qty: 90 3RF Glucagon Emergency Kit (human) 1 mg recon soln See Rx Instructions .ROUTE .COMPLEX Qty: 1 0RF Dose Instruction: inject 1mg SUBCUTANEOUSLY EVERY 20 MINUTES NEEDED FOR hypoglycemia UNTIL target blood sugar attained Rx Instructions: inject 1mg SUBCUTANEOUSLY EVERY 20 MINUTES NEEDED FOR hypoglycemia UNTIL target blood sugar attained diazepam 5 mg tablet 5 mg PO TID Qty: 90 1RF zonisamide 100 mg capsule 200 mg PO DAILY Qty: 180 0RF (DME) Dexcom G7 Sensor Device See Rx Instructions .ROUTE .COMPLEX Qty: 3 3RF Dose Instruction: USE DIRECTED Rx Instructions: USE DIRECTED Eliquis 5 mg tablet See Rx Instructions .ROUTE .COMPLEX Qty: 180 3RF Dose Instruction: TAKE 1 TABLET BY MOUTH TWICE DAILY Rx Instructions: TAKE 1 TABLET BY MOUTH TWICE DAILY aspirin 81 mg tablet,delayed release (DR/EC) 81 mg PO DAILY acetaminophen [Pain Reliever (acetaminophen)] 500 mg tablet 1,000 mg PO Q6H PRN (Reason: Pain) Jardiance 25 mg tablet 25 mg PO DAILY Biofreeze (menthol) 10 % cream 1 applic topical TID PRN (Reason: muscle pain) Qty: 85 0RF bismuth subsalicylate [Stomach Relief] 262 mg/15 mL suspension 262 mg PO Q4H PRN (Reason: Indigestion) irbesartan 150 mg tablet 150 mg PO DAILY atorvastatin 80 mg tablet 80 mg PO BEDTIME promethazine 25 mg tablet 25 mg PO Q6H PRN (Reason: Nausea And Vomiting) glucose 4 gram Tablet,Chewable 16 g PO PRN PRN (Reason: LOW BLOOD SUGAR) Rx Instructions: for bs lower than 60 ibuprofen 600 mg tablet 600 mg PO TID PRN (Reason: Pain) cetirizine 10 mg Tablet 10 mg PO DAILY PRN (Reason: allergies) pioglitazone 45 mg tablet 45 mg PO DAILY metformin 1,000 mg tablet 1,000 mg PO DAILY Discharge Orders: Discharge ED (Routine); Ordered 01/30/25 Ordered By: Deep Swann Referrals: Bautista Ruiz MD [Primary Care Provider] - 1 week Patient Instructions: Syncope (ED) Activity Restrictions/Additional Instructions: Thank you for choosing [facility] for your healthcare needs today. Please realize that you were seen in the emergency department and that we are providing you with an emergency medical screening exam and this may not be a complete and all exclusive of all testing and/or medical workup we may need to determine your element or severity of your illness. It is very important that you follow-up as instructed with your primary care provider or specialist for the additional evaluation and to discuss your medical treatment plan. You may return to the emergency department should you have concerns or if your condition changes or worsens in any way. Print Language: German Coding Level of Care Code ED Vending Machine Coin Collector for Dasha Nix
[2025-01-30] MEDS: acetaminophen 500 mg Tablet 1000 MG PO (01:29)
== END 2025-01-30 02:25 | disposition home or self-care (01) ==
PROVIDERS: Emergency Provider Emergency Medicine; PCP Family Medicine
DX: R55 Syncope and collapse (principal); W19.XXXA Unspecified fall, initial encounter; Z79.4 Long term (current) use of insulin; Z79.01 Long term (current) use of anticoagulants; Z79.82 Long term (current) use of aspirin; Z79.84 Long term (current) use of oral hypoglycemic drugs; F17.290 Nicotine dependence, other tobacco product, uncomplicated; E11.9 Type 2 diabetes mellitus without complications; E78.5 Hyperlipidemia, unspecified; I10 Essential (primary) hypertension
CPT/HCPCS: 70450; 99284; J9999

== ENCOUNTER → 2025-02-03 10:11 | Outpatient (BNVA) | payer MEDICARE, MEDICAID, SELFPAY | PROVIDERS: PCP Family Medicine; Visit Provider Podiatrist Foot & Ankle Surgery | DX: E11.42 Type 2 diabetes mellitus with diabetic polyneuropathy (principal); L60.3 Nail dystrophy; Z79.84 Long term (current) use of oral hypoglycemic drugs; Z79.4 Long term (current) use of insulin | CPT/HCPCS: 11721 ==

== ENCOUNTER 2025-02-05 20:50 | Emergency (ER) | payer MEDICARE, MEDICAID, SELFPAY ==
--- NOTE | 2025-02-05 20:56 | CTR_ITS ---
PROCEDURE INFORMATION: Exam: CT Head Without Contrast Exam date and time: 02/05/2025 9:35 PM Age: 44 years old Clinical indication: Injury or trauma; Fall; Blunt trauma (contusions or hematomas); Additional info: Fall, head injury TECHNIQUE: Imaging protocol: Computed tomography of the head without contrast. Radiation optimization: All CT scans at this facility use at least one of these dose optimization techniques: automated exposure control; mA and/or kV adjustment per patient size (includes targeted exams where dose is matched to clinical indication); or iterative reconstruction. COMPARISON: CT head wo con* [id number] 01/30/2025 1:06 AM RADIATION DOSE METRICS: Total DLP (mGy-cm): 1271.48 FINDINGS: Brain: Parenchymal structures of the brain demonstrate normal anatomy and attenuation. The midline is intact. Beam hardening artifact through the skull base is present slightly obscuring resolution. No hemorrhage. Unremarkable white matter. No mass effect. Cerebral ventricles: No ventriculomegaly. Paranasal sinuses: Visualized sinuses are unremarkable. No fluid levels. Mastoid air cells: Visualized mastoid air cells are well aerated. Bones: The calvarial vault appears to be intact. No acute fracture. Soft tissues: Suspected fibrotic like change along the posterior parietal vertex region of the scalp most similar to prior studies question remote trauma. CT/CT head wo con* [id number] IMPRESSION: 1. No acute intracranial head CT findings identified. 2. Incidentally noted is ceruminous plugging of the left external auditory canal/EAC.
[2025-02-05 21:02] VITALS: BP 121/80; PULSE 114; RESP 16; TEMP 36.3; O2SAT 97
[2025-02-05 21:48] LABS: Glucose Point of Care 315 mg/dL (70-110)
--- NOTE | 2025-02-05 22:35 | W.ED.FALL ---
HPI - Fall General: Chief Complaint: Fall Stated Complaint: Slipped-Hit head Time Seen by Provider: 02/05/25 22:33 History of Present Illness: Patient slipped and fell in the shower and hit his head. No loss of he lives at home and they brought him in for evaluation. Consciousness. No nausea or vomiting. No headache. No head pain. Related Data Home Medications ?Medication ?Instructions ?Recorded ?Confirmed gabapentin 300 mg capsule 300 mg PO BID 10/11/22 02/03/25 (Neurontin) bismuth subsalicylate 262 mg/15 mL 262 mg PO Q4H PRN Indigestion 03/16/23 02/03/25 oral suspension (Stomach Relief) irbesartan 150 mg tablet 150 mg PO DAILY 03/16/23 02/03/25 acetaminophen 500 mg tablet (Pain 1,000 mg PO Q6H PRN Pain 10/24/23 02/03/25 Reliever (acetaminophen)) aspirin 81 mg tablet,delayed 81 mg PO DAILY 10/24/23 02/03/25 release empagliflozin 25 mg tablet 25 mg PO DAILY 10/24/23 02/03/25 (Jardiance) atorvastatin 80 mg tablet 80 mg PO BEDTIME 12/31/23 02/03/25 glucose 4 gram chewable tablet 16 g PO PRN PRN LOW BLOOD SUGAR 12/31/23 02/03/25 ibuprofen 600 mg tablet 600 mg PO TID PRN Pain 12/31/23 02/03/25 promethazine 25 mg tablet 25 mg PO Q6H PRN Nausea And 12/31/23 02/03/25 Vomiting albuterol sulfate 90 mcg/actuation 2 puff inhalation Q4H PRN 08/05/24 02/03/25 aerosol inhaler Shortness Of Breath icosapent ethyl 1 gram capsule 2 g PO BID 08/05/24 02/03/25 (Vascepa) loperamide 2 mg capsule 2 mg PO Q6H PRN Diarrhea 08/05/24 02/03/25 (Anti-Diarrheal (loperamide)) vitamins A,C,U-glgl-rjlxit 4,296 1 cap PO BID 08/05/24 02/03/25 mcg-226 mg-90 mg capsule (PreserVision AREDS) cetirizine 10 mg tablet 10 mg PO DAILY PRN allergies 10/23/24 02/03/25 insulin lispro 100 unit/mL See Rx Instructions .Route .COMPLEX 11/11/24 02/03/25 subcutaneous pen (Humalog KwikPen (U-100) Insulin) neomycin-bacitracn Zn-polymyx 3.5 1 applic topical DAILY PRN Skin 11/27/24 02/03/25 mg-400 unit-5,000 unit/gram top Irritation oint (Triple Antibiotic) metformin 1,000 mg tablet 1,000 mg PO DAILY 01/14/25 02/03/25 pioglitazone 45 mg tablet 45 mg PO DAILY 01/14/25 02/03/25 Previous Rx's ?Medication ?Instructions ?Recorded omeprazole 40 mg capsule,delayed 40 mg PO DAILY #30 caps 04/19/24 release blood-glucose meter,continuous #1 ea 05/14/24 (FreeStyle Stacey 3 Justin) blood-glucose sensor (FreeStyle #2 ea 05/14/24 Stacey 3 Sensor device) ondansetron 4 mg disintegrating 4 mg PO Q8H PRN nausea and 07/02/24 tablet vomiting #20 tabs olanzapine 5 mg disintegrating 5 mg PO BID PRN agitation/anxiety 08/05/24 tablet #60 tabs blood-glucose meter,continuous #1 ea 08/13/24 (Happy [employer] G7 Registered Nurse Renal) menthol 10 % topical cream 1 applic topical TID PRN muscle 09/03/24 (Biofreeze (menthol)) pain #85 grams metoprolol succinate 25 mg 25 mg PO DAILY #90 tabs 11/04/24 tablet,extended release 24 hr aripiprazole 30 mg tablet 15 mg (1/2 x 30 mg) PO BID 30 days 11/27/24 #30 tabs divalproex 500 mg tablet,extended 2,000 mg (4 x 500 mg) PO BEDTIME 11/27/24 release 24 hr 30 days #120 tabs venlafaxine 150 mg 300 mg (2 x 150 mg) PO QAM 30 days 11/27/24 capsule,extended release 24 hr #60 caps glucagon 1 mg solution for See Rx Instructions .Route 12/17/24 injection (Glucagon Emergency Kit) .COMPLEX #1 ea diazepam 5 mg tablet 5 mg PO TID #90 tabs 12/26/24 zonisamide 100 mg capsule 200 mg (2 x 100 mg) PO DAILY #180 12/30/24 caps tirzepatide 12.5 mg/0.5 mL 12.5 mg (0.5 mL) SUBCUT Q7D #2 mL 01/01/25 subcutaneous pen injector (Mounjaro) blood-glucose sensor (Dexcom G7 #3 ea 01/20/25 Sensor device) apixaban 5 mg tablet (Eliquis) See Rx Instructions .Route 01/21/25 .COMPLEX #180 tabs Allergies Allergy/AdvReac Type Severity Reaction Status Date / Time No Known Allergies Allergy Verified 02/05/25 21:05 Review of Systems Narrative: Constitutional symptoms: Negative except as documented in HPI. Skin symptoms: Negative except as documented in HPI. Eye symptoms: Negative except as documented in HPI. ENMT symptoms: Negative except as documented in HPI. Respiratory symptoms: Negative except as documented in HPI. Cardiovascular symptoms: Negative except as documented in HPI. Gastrointestinal symptoms: Negative except as documented in HPI. Genitourinary symptoms: Negative except as documented in HPI. Musculoskeletal symptoms: Negative except as documented in HPI. Neurologic symptoms: Negative except as documented in HPI. Psychiatric symptoms: Negative except as documented in HPI. Endocrine symptoms: Negative except as documented in HPI. PFS ED PFSH: Medical History Coronary-myocardial bridge Peripheral neuropathy Type 2 diabetes mellitus Hyperlipidemia Hypertension Pulmonary embolism Other reactions to severe stress Bipolar 1 disorder Most recent episode depressed Fracture of [facility] Surgical History History of appendectomy Social History Smoking and tobacco/nicotine status: current some day tobacco/nicotine user (some vaping) e-cigarettes Alcohol intake: current Alcohol intake frequency: few times a month Substance/Drug Use: never Marital status: Single Physical Exam Narrative: EXAM NARRATIVE: General: Alert, no acute distress. Skin: Warm, dry. Head: Normocephalic, atraumatic. Neck: Supple, trachea midline. Eye: Extraocular movements are intact. Ears, nose, mouth and throat: mucosa moist. Cardiovascular: Regular, Normal peripheral perfusion. Respiratory: Lungs are clear to auscultation, respirations are non-labored, breath sounds are equal, Symmetrical chest wall expansion. Gastrointestinal: Soft, Nontender, Non distended Musculoskeletal: Normal ROM, no deformity. Neurological: Alert and oriented, No focal neurological deficit observed. Psychiatric: Cooperative, appropriate mood & affect. Course Vital Signs: Vital signs: Vital Signs Temperature 97.4 F L 02/05/25 21:02 Pulse Rate 114 H 02/05/25 21:02 Respiratory Rate 16 02/05/25 21:02 Blood Pressure 121/80 02/05/25 21:02 Pulse Oximetry 97 02/05/25 21:02 Oxygen Delivery Me thod Room Air 02/05/25 21:02 MDM - Fall Medical Decision Making CT head: No acute intracranial process. no intracranial hemorrhage, no evidence of infarct. no evidence of acute fracture.This was reviewed and interpreted by myself the ER physician. Assessment and plan: Head injury - Discharged home - Discussed plan with patient. Answered any questions. - Evaluation and treatment of this problem were appropriate in the emergency setting. Lab Data Radiology Impressions Head CT 02/05/25 20:56 IMPRESSION: 1. No acute intracranial head CT findings identified. 2. Incidentally noted is ceruminous plugging of the left external auditory canal/EAC. Laboratory Results POC Glucose 315 mg/dL (70-110) H 02/05/25 21:46 All radiology interpretation(s) finalized by discharge Discharge Plan Discharge Patient Disposition: Home Clinical Impression: Head injury Condition: Stable Prescriptions: No Action gabapentin [Neurontin] 300 mg capsule 300 mg PO BID (DME) FreeStyle Stacey 3 Justin Misc See Rx Instructions .Route Qty: 1 0RF Rx Instructions: As directed (DME) FreeStyle Stacey 3 Sensor Device See Rx Instructions .Route Qty: 2 3RF Rx Instructions: As directed omeprazole 40 mg capsule,delayed release(DR/EC) 40 mg PO DAILY Qty: 30 0RF loperamide [Anti-Diarrheal (loperamide)] 2 mg capsule 2 mg PO Q6H PRN (Reason: Diarrhea) albuterol sulfate 90 mcg/actuation HFA aerosol inhaler 2 puff inhalation Q4H PRN (Reason: Shortness Of Breath) icosapent ethyl [Vascepa] 1 gram capsule 2 g PO BID PreserVision AREDS 4,296 mcg-226 mg-90 mg capsule 1 cap PO BID olanzapine 5 mg tablet,disintegrating 5 mg PO BID PRN (Reason: agitation/anxiety) Qty: 60 3RF Triple Antibiotic 3.5mg-400 unit- 5,000 unit/gram ointment 1 applic topical DAILY PRN (Reason: Skin Irritation) venlafaxine 150 mg capsule,extended release 24hr 300 mg PO QAM 30 Days Qty: 60 3RF aripiprazole 30 mg tablet 15 mg PO BID 30 Days Qty: 30 3RF divalproex 500 mg tablet extended release 24 hr 2,000 mg PO BEDTIME 30 Days Qty: 120 3RF insulin lispro [Humalog KwikPen Insulin] 100 unit/mL insulin pen See Rx Instructions .ROUTE .COMPLEX Rx Instructions: Give 5 units subcutaneously every 4 hours as needed for blood sugars above 400. (DME) Dexcom G7 Registered Nurse Renal Misc See Rx Instructions .Route Qty: 1 0RF Rx Instructions: As directed Mounjaro 12.5 mg/0.5 mL pen injector 12.5 mg SUBCUT Q7D Qty: 2 3RF ondansetron 4 mg tablet,disintegrating 4 mg PO Q8H PRN (Reason: nausea and vomiting) Qty: 20 0RF metoprolol succinate 25 mg tablet extended release 24 hr 25 mg PO DAILY Qty: 90 3RF Glucagon Emergency Kit (human) 1 mg recon soln See Rx Instructions .ROUTE .COMPLEX Qty: 1 0RF Dose Instruction: inject 1mg SUBCUTANEOUSLY EVERY 20 MINUTES NEEDED FOR hypoglycemia UNTIL target blood sugar attained Rx Instructions: inject 1mg SUBCUTANEOUSLY EVERY 20 MINUTES NEEDED FOR hypoglycemia UNTIL target blood sugar attained diazepam 5 mg tablet 5 mg PO TID Qty: 90 1RF zonisamide 100 mg capsule 200 mg PO DAILY Qty: 180 0RF (DME) Dexcom G7 Sensor Device See Rx Instructions .ROUTE .COMPLEX Qty: 3 3RF Dose Instruction: USE DIRECTED Rx Instructions: USE DIRECTED Eliquis 5 mg tablet See Rx Instructions .ROUTE .COMPLEX Qty: 180 3RF Dose Instruction: TAKE 1 TABLET BY MOUTH TWICE DAILY Rx Instructions: TAKE 1 TABLET BY MOUTH TWICE DAILY aspirin 81 mg tablet,delayed release (DR/EC) 81 mg PO DAILY acetaminophen [Pain Reliever (acetaminophen)] 500 mg tablet 1,000 mg PO Q6H PRN (Reason: Pain) Jardiance 25 mg tablet 25 mg PO DAILY Biofreeze (menthol) 10 % cream 1 applic topical TID PRN (Reason: muscle pain) Qty: 85 0RF bismuth subsalicylate [Stomach Relief] 262 mg/15 mL suspension 262 mg PO Q4H PRN (Reason: Indigestion) irbesartan 150 mg tablet 150 mg PO DAILY atorvastatin 80 mg tablet 80 mg PO BEDTIME promethazine 25 mg tablet 25 mg PO Q6H PRN (Reason: Nausea And Vomiting) glucose 4 gram Tablet,Chewable 16 g PO PRN PRN (Reason: LOW BLOOD SUGAR) Rx Instructions: for bs lower than 60 ibuprofen 600 mg tablet 600 mg PO TID PRN (Reason: Pain) cetirizine 10 mg Tablet 10 mg PO DAILY PRN (Reason: allergies) pioglitazone 45 mg tablet 45 mg PO DAILY metformin 1,000 mg tablet 1,000 mg PO DAILY Discharge Orders: Discharge ED (Routine); Ordered 02/05/25 Ordered By: Bety Yanez Referrals: Bautista Ruiz MD [Primary Care Provider] - Discharge Diet: Usual diet Discharge Activity: Increase activity as tolerated Patient Instructions: Fall Prevention (ED), Opioid Safety, Pain Management Activity Restrictions/Additional Instructions: Thank you for choosing [facility] [place] for your healthcare needs today. Please realize this is an emergency room and that we are providing you with a medical screening exam and this may not be complete and all inclusive of all the testing and or work up that you may need to determine your ailment or severity of your illness. You have been screened and evaluated and felt safe for discharge. Health conditions do change or evolve sometimes and as such it is important that you follow up with your Primary Doctor to be re checked, 3-5 days is a general good time frame for follow up. You are always welcome to return to the ED for re assessment if your symptoms are worsening or you have new concerns Print Language: Icelandic Coding Level of Care Code ED [employer] Vel[employer] for Dasha Nix
[2025-02-05 23:35] VITALS: BP 116/78; PULSE 90; O2SAT 93
== END 2025-02-05 23:36 | disposition home or self-care (01) ==
PROVIDERS: Emergency Provider Emergency Medicine; PCP Family Medicine
DX: S09.90XA Unspecified injury of head, initial encounter (principal); Z79.4 Long term (current) use of insulin; Z79.01 Long term (current) use of anticoagulants; Z79.82 Long term (current) use of aspirin; Z79.84 Long term (current) use of oral hypoglycemic drugs; F17.290 Nicotine dependence, other tobacco product, uncomplicated; E11.42 Type 2 diabetes mellitus with diabetic polyneuropathy; E78.5 Hyperlipidemia, unspecified; I10 Essential (primary) hypertension; W18.2XXA Fall in (into) shower or empty bathtub, initial encounter
CPT/HCPCS: 36416; 70450; 82962; 99281

== ENCOUNTER → 2025-02-10 06:19 | Outpatient (BNVA) | payer MEDICARE, SELFPAY | PROVIDERS: PCP Family Medicine; Referring Provider Specialist; Visit Provider Specialist | DX: R55 Syncope and collapse (principal); S09.90XA Unspecified injury of head, initial encounter; R26.9 Unspecified abnormalities of gait and mobility; R29.6 Repeated falls; X58.XXXA Exposure to other specified factors, initial encounter | CPT/HCPCS: 95819 ==

== ENCOUNTER 2025-02-23 16:23 | Inpatient (IN) | payer MEDICARE, MEDICAID, SELFPAY ==
[2025-02-23 16:33] VITALS: BP 121/82; PULSE 130; TEMP 36.7; O2SAT 97; BMI 31.6
[2025-02-23 17:40] LABS: Basophils % 0.5 %; Eosinophils # 0.1 10^3/uL (0.0-0.8); Eosinophils % 0.8 %; Hematocrit 52.6 % (37-53); Lymphocytes # 2.4 10^3/uL (0.8-4.8); Lymphocytes % 37.5 %; Mean Corpuscular HGB Conc 32.1 g/dL (30-55); Mean Corpuscular Hemoglobin 28.7 pg (27-33); Mean Corpuscular Volume 89.5 fl (82-101); Mean Platelet Volume 9.9 fL (7.4-10.4); Monocytes # 0.5 10^3/uL (0.2-0.9); Monocytes % 7.1 %; Neutrophils # 3.39 10^3/uL (1.8-7.7); Neutrophils % 53.8 %; Nucleated Red Blood Cells % 0 %; Platelet Count 189 10^3/cmm (157-399); Red Blood Count 5.88 10^6/uL (3.85-5.65); Red Cell Distribution Width 13.5 % (12.1-15.1)
[2025-02-23 17:55] LABS: Acetaminophen < 5.0 ug/mL (10-30); Alanine Aminotransferase 18 U/L (0-41); Alcohol Level < 10 mg/dL (0-10); Alkaline Phosphatase 75 U/L (40-130); Anion Gap 15.4 (5-19); Aspartate Amino Transferase 10 U/L (0-40); Blood Urea Nitrogen 18 mg/dL (6-20); Calcium 9.2 mg/dL (8.5-10.5); Carbon Dioxide 27 mmol/L (22-29); Chloride 101 mmol/L (98-107); Creatinine Clr Calc Pharmacy 134.1212; Globulin 2.5 g/dL (1.3-4.6); Glomerular Filtration Rate 91.3 mL/min (90-130); Glucose 315 mg/dL (65-115); Osmolality Calculated 302 mOsm/kg (285-295); Potassium 4.4 mmol/L (3.5-5.1); Salicylate < 0.3 mg/dL (3-10); Sodium 139 mmol/L (136-145); Total Bilirubin 0.2 mg/dL (0.15-1.2); Total Protein 6.5 g/dL (6.6-8.7)
--- NOTE | 2025-02-23 19:08 | W.ED.ANXIETY ---
HPI - Anxiety General: Chief Complaint: Anxiety Stated Complaint: behaviors out of meds Time Seen by Provider: 02/23/25 16:54 History of Present Illness: 44-year-old male who lives in group alone and has some underlying behavioral issues and concerns with developmental delay. He is brought in by staff because he has been acting out and having behavioral issues. Patient denies any suicidal homicidal ideation to me however staff reports he has been making suicidal comments and filled out affidavits. They are requesting admission for his behavior and suicidal ideations. Associated symptoms: Deny chest pain, chills, fever(s), headache(s), nausea or vomiting Related Data Home Medications ?Medication ?Instructions ?Recorded ?Confirmed gabapentin 300 mg capsule 300 mg PO BID 10/11/22 02/19/25 (Neurontin) bismuth subsalicylate 262 mg/15 mL 262 mg PO Q4H PRN Indigestion 03/16/23 02/19/25 oral suspension (Stomach Relief) irbesartan 150 mg tablet 150 mg PO DAILY 03/16/23 02/19/25 acetaminophen 500 mg tablet (Pain 1,000 mg PO Q6H PRN Pain 10/24/23 02/19/25 Reliever (acetaminophen)) aspirin 81 mg tablet,delayed 81 mg PO DAILY 10/24/23 02/19/25 release empagliflozin 25 mg tablet 25 mg PO DAILY 10/24/23 02/19/25 (Jardiance) atorvastatin 80 mg tablet 80 mg PO BEDTIME 12/31/23 02/19/25 glucose 4 gram chewable tablet 16 g PO PRN PRN LOW BLOOD SUGAR 12/31/23 02/19/25 ibuprofen 600 mg tablet 600 mg PO TID PRN Pain 12/31/23 02/19/25 promethazine 25 mg tablet 25 mg PO Q6H PRN Nausea And 12/31/23 02/19/25 Vomiting albuterol sulfate 90 mcg/actuation 2 puff inhalation Q4H PRN 08/05/24 02/19/25 aerosol inhaler Shortness Of Breath icosapent ethyl 1 gram capsule 2 g PO BID 08/05/24 02/19/25 (Vascepa) loperamide 2 mg capsule 2 mg PO Q6H PRN Diarrhea 08/05/24 02/19/25 (Anti-Diarrheal (loperamide)) vitamins A,C,P-jbxv-bbsqtm 4,296 1 cap PO BID 08/05/24 02/19/25 mcg-226 mg-90 mg capsule (PreserVision AREDS) cetirizine 10 mg tablet 10 mg PO DAILY PRN allergies 10/23/24 02/19/25 insulin lispro 100 unit/mL See Rx Instructions .Route .COMPLEX 11/11/24 02/19/25 subcutaneous pen (Humalog KwikPen (U-100) Insulin) neomycin-bacitracn Zn-polymyx 3.5 1 applic topical DAILY PRN Skin 11/27/24 02/19/25 mg-400 unit-5,000 unit/gram top Irritation oint (Triple Antibiotic) metformin 1,000 mg tablet 1,000 mg PO DAILY 01/14/25 02/19/25 cholecalciferol (vitamin D3) 50 50 mcg PO DAILY 02/19/25 02/19/25 mcg (2,000 unit) tablet Previous Rx's ?Medication ?Instructions ?Recorded omeprazole 40 mg capsule,delayed 40 mg PO DAILY #30 caps 04/19/24 release blood-glucose meter,continuous #1 ea 05/14/24 (FreeStyle Stacey 3 [place]) blood-glucose sensor (FreeStyle #2 ea 05/14/24 Stacey 3 Sensor device) ondansetron 4 mg disintegrating 4 mg PO Q8H PRN nausea and 07/02/24 tablet vomiting #20 tabs blood-glucose meter,continuous #1 ea 08/13/24 (Dexcom G7 Railroad Car Inspector) menthol 10 % topical cream 1 applic topical TID PRN muscle 09/03/24 (Biofreeze (menthol)) pain #85 grams metoprolol succinate 25 mg 25 mg PO DAILY #90 tabs 11/04/24 tablet,extended release 24 hr glucagon 1 mg solution for See Rx Instructions .Route 12/17/24 injection (Glucagon Emergency Kit) .COMPLEX #1 ea zonisamide 100 mg capsule 200 mg (2 x 100 mg) PO DAILY #180 12/30/24 caps tirzepatide 12.5 mg/0.5 mL 12.5 mg (0.5 mL) SUBCUT Q7D #2 mL 01/01/25 subcutaneous pen injector (Elizabeth) blood-glucose sensor (Dexcom G7 #3 ea 01/20/25 Sensor device) apixaban 5 mg tablet (Eliquis) See Rx Instructions .Route 01/21/25 .COMPLEX #180 tabs aripiprazole 30 mg tablet 15 mg (1/2 x 30 mg) PO BID 30 days 02/19/25 #30 tabs buspirone 5 mg tablet 5 mg PO BID #60 tabs 02/19/25 divalproex 500 mg tablet,extended 2,000 mg (4 x 500 mg) PO BEDTIME 02/19/25 release 24 hr 30 days #120 tabs venlafaxine 150 mg 300 mg (2 x 150 mg) PO QAM 30 days 02/19/25 capsule,extended release 24 hr #60 caps diazepam 5 mg tablet 5 mg PO TID #90 tabs 02/23/25 pioglitazone 45 mg tablet See Rx Instructions .Route 02/23/25 .COMPLEX #30 tabs Allergies Allergy/AdvReac Type Severity Reaction Status Date / Time No Known Allergies Allergy Verified 02/23/25 16:37 Review of Systems Const: Denies: fever(s) or chills Card: Denies: chest pain Resp: Denies: dyspnea or wheezing GI: Denies: abdominal pain, nausea or vomiting Musc: Denies: neck pain Neuro: Denies: headache(s) Psych: Reports: other (Please see HPI) PFSH ED PFSH: Medical History Coronary-myocardial bridge Peripheral neuropathy Type 2 diabetes mellitus Hyperlipidemia Hypertension Pulmonary embolism Other reactions to severe stress Bipolar 1 disorder Most recent episode depressed Fracture of [facility] Surgical History History of appendectomy Social History Smoking and tobacco/nicotine status: current some day tobacco/nicotine user e-cigarettes Alcohol intake: current Alcohol intake frequency: few times a month Substance/Drug Use: never Marital status: Single Physical Exam Const: COMMON NORMALS: no acute distress, patient oriented x3 and alert Resp: COMMON NORMALS: normal respiratory effort and No use of accessory muscles Cardio: COMMON NORMALS: regular rate and regular rhythm RATE: regular rate RHYTHM: regular rhythm Neuro: COMMON NORMALS: patient oriented x3, no focal motor deficits and no sensory deficits noted SENSORIUM/ORIENTATION: Yes alert Psych: COMMON NORMALS: mental status grossly normal, Normal thought process present, speech normal, denies homicidal ideation and denies suicidal ideation SPEECH: Yes normal speech THOUGHT PROCESS: Normal thought process present Course Vital Signs: Vital signs: Vital Signs Temperature 98.0 F 02/23/25 16:33 Pulse Rate 130 H 02/23/25 16:33 Blood Pressure 121/82 02/23/25 16:33 Pulse Oximetry 97 02/23/25 16:33 Oxygen Delivery Me thod Room Air 02/23/25 16:33 MDM - Anxiety Medical Decision Making Patient was medically cleared. Discussed case with Dr. Huynh who will admit patient due to patient being 96 due to 3 staff members feeling affidavits with patient reporting suicidal ideations. Patient was stable upon admission to the the neuro behavioral health unit. Lab Data 02/23/25 17:33 02/23/25 17:33 Laboratory Results WBC 6.30 10^3/uL (3.29-11.43) 02/23/25 17: RBC 5.88 10^6/uL (3.85-5.65) H 02/23/25 17:33 Hgb 16.90 g/dL (11.27-16.99) 02/23/25 17:33 Hct 52.6 % (37-53) 02/23/25 17: MCV 89.5 fl (82-101) 02/23/25 17:33 MCH 28.7 pg (27-33) 02/23/25 17: MCHC 32.1 g/dL (30-55) 02/23/25 17: RDW 13.5 % (12.1-15.1) 02/23/25 17:33 Plt Count 189 10^3/cmm (157-399) 02/23/25 17: MPV 9.9 fL (7.4-10.4) 02/23/25 17: Neut % (Auto) 53.8 % 02/23/25 17:33 Lymph % (Auto) 37.5 % 02/23/25 17: [place] % (Auto) 7.1 % 02/23/25 17: Eos % (Auto) 0.8 % 02/23/25 17: Baso % (Auto) 0.5 % 02/23/25 17:33 Neut # (Auto) 3.39 10^3/uL (1.8-7.7) 02/23/25 17: Lymph # (Auto) 2.4 10^3/uL (0.8-4.8) 02/23/25 17: [place] # (Auto) 0.5 10^3/uL (0.2-0.9) 02/23/25 17: Eos # (Auto) 0.1 10^3/uL (0.0-0.8) 02/23/25 17: Baso # (Auto) 0.0 10^3/uL (0.0-0.1) 02/23/25 17: Nucleated RBC % (auto) 0 % 02/23/25: Nucleated RBCs # 0.0 /100WBC 02/23/25 17:33 Sodium 139 mmol/L (136-145) 02/23/25 17:33 Potassium 4.4 mmol/L (3.5-5.1) 02/23/25 17: Chloride 101 mmol/L (98-107) 02/23/25 17: Carbon Dioxide 27 mmol/L (22-29) 02/23/25 17:33 Anion Gap 15.4 (5-19) 02/23/25 17:33 BUN 18 mg/dL (6-20) 02/23/25 17:33 Creatinine 0.9 mg/dL (0.7-1.2) 02/23/25 17:33 GFR Calculation 91.3 mL/min (90-130) 02/23/25 17:33 Glucose 315 mg/dL (65-115) H 02/23/25 17:33 Calculated Osmolality 302 mOsm/kg (285-295) H 02/23/25 17:33 Calcium 9.2 mg/dL (8.5-10.5) 02/23/25 17:33 Total Bilirubin 0.2 mg/dL (0.15-1.2) 02/23/25 17:33 AST 10 U/L (0-40) 02/23/25 17:33 ALT 18 U/L (0-41) 02/23/25 17:33 Alkaline Phosphatase 75 U/L (40-130) 02/23/25 17:33 Total Protein 6.5 g/dL (6.6-8.7) L 02/23/25 17:33 Albumin 4.0 g/dL (3.5-5.2) 02/23/25 17:33 Globulin 2.5 g/dL (1.3-4.6) 02/23/25 17:33 Salicylates < 0.3 mg/dL (3-10) L 02/23/25 17:33 Acetaminophen < 5.0 ug/mL (10-30) L 02/23/25 17:33 Ethyl Alcohol < 10 mg/dL (0-10) 02/23/25 17:33 No radiology studies performed this visit Discharge Plan Discharge Condition: Stable Prescriptions: No Action gabapentin [Neurontin] 300 mg capsule 300 mg PO BID (DME) FreeStyle Stacey 3 [place] Misc See Rx Instructions .Route Qty: 1 0RF Rx Instructions: As directed (DME) FreeStyle Stacey 3 Sensor Device See Rx Instructions .Route Qty: 2 3RF Rx Instructions: As directed omeprazole 40 mg capsule,delayed release(DR/EC) 40 mg PO DAILY Qty: 30 0RF loperamide [Anti-Diarrheal (loperamide)] 2 mg capsule 2 mg PO Q6H PRN (Reason: Diarrhea) albuterol sulfate 90 mcg/actuation HFA aerosol inhaler 2 puff inhalation Q4H PRN (Reason: Shortness Of Breath) icosapent ethyl [Vascepa] 1 gram capsule 2 g PO BID PreserVision AREDS 4,296 mcg-226 mg-90 mg capsule 1 cap PO BID Triple Antibiotic 3.5mg-400 unit- 5,000 unit/gram ointment 1 applic topical DAILY PRN (Reason: Skin Irritation) cholecalciferol (vitamin D3) 50 mcg (2,000 unit) tablet 50 mcg PO DAILY venlafaxine 150 mg capsule,extended release 24hr 300 mg PO QAM 30 Days Qty: 60 1RF divalproex 500 mg tablet extended release 24 hr 2,000 mg PO BEDTIME 30 Days Qty: 120 1RF aripiprazole 30 mg tablet 15 mg PO BID 30 Days Qty: 30 1RF Rx Instructions: Take one-half tablet twice a day buspirone 5 mg tablet 5 mg PO BID Qty: 60 1RF Rx Instructions: For 3 days:Take one-half tablet twice a day at 10 AM and 5 PM, then increase to 1 tablet twice a day diazepam 5 mg tablet 5 mg PO TID Qty: 90 1RF insulin lispro [Humalog KwikPen Insulin] 100 unit/mL insulin pen See Rx Instructions .ROUTE .COMPLEX Rx Instructions: Give 5 units subcutaneously every 4 hours as needed for blood sugars above 400. (DME) Dexcom G7 Railroad Car Inspector Misc See Rx Instructions .Route Qty: 1 0RF Rx Instructions: As directed Mounjaro 12.5 mg/0.5 mL pen injector 12.5 mg SUBCUT Q7D Qty: 2 3RF ondansetron 4 mg tablet,disintegrating 4 mg PO Q8H PRN (Reason: nausea and vomiting) Qty: 20 0RF metoprolol succinate 25 mg tablet extended release 24 hr 25 mg PO DAILY Qty: 90 3RF Glucagon Emergency Kit (human) 1 mg recon soln See Rx Instructions .ROUTE .COMPLEX Qty: 1 0RF Dose Instruction: inject 1mg SUBCUTANEOUSLY EVERY 20 MINUTES NEEDED FOR hypoglycemia UNTIL target blood sugar attained Rx Instructions: inject 1mg SUBCUTANEOUSLY EVERY 20 MINUTES NEEDED FOR hypoglycemia UNTIL target blood sugar attained zonisamide 100 mg capsule 200 mg PO DAILY Qty: 180 0RF (DME) Dexcom G7 Sensor Device See Rx Instructions .ROUTE .COMPLEX Qty: 3 3RF Dose Instruction: USE DIRECTED Rx Instructions: USE DIRECTED Eliquis 5 mg tablet See Rx Instructions .ROUTE .COMPLEX Qty: 180 3RF Dose Instruction: TAKE 1 TABLET BY MOUTH TWICE DAILY Rx Instructions: TAKE 1 TABLET BY MOUTH TWICE DAILY pioglitazone 45 mg tablet See Rx Instructions .ROUTE .COMPLEX Qty: 30 3RF Dose Instruction: TAKE 1 TABLET BY MOUTH ONCE DAILY Rx Instructions: TAKE 1 TABLET BY MOUTH ONCE DAILY aspirin 81 mg tablet,delayed release (DR/EC) 81 mg PO DAILY acetaminophen [Pain Reliever (acetaminophen)] 500 mg tablet 1,000 mg PO Q6H PRN (Reason: Pain) Jardiance 25 mg tablet 25 mg PO DAILY Biofreeze (menthol) 10 % cream 1 applic topical TID PRN (Reason: muscle pain) Qty: 85 0RF bismuth subsalicylate [Stomach Relief] 262 mg/15 mL suspension 262 mg PO Q4H PRN (Reason: Indigestion) irbesartan 150 mg tablet 150 mg PO DAILY atorvastatin 80 mg tablet 80 mg PO BEDTIME promethazine 25 mg tablet 25 mg PO Q6H PRN (Reason: Nausea And Vomiting) glucose 4 gram Tablet,Chewable 16 g PO PRN PRN (Reason: LOW BLOOD SUGAR) Rx Instructions: for bs lower than 60 ibuprofen 600 mg tablet 600 mg PO TID PRN (Reason: Pain) cetirizine 10 mg Tablet 10 mg PO DAILY PRN (Reason: allergies) metformin 1,000 mg tablet 1,000 mg PO DAILY Referrals: Bautista Ruiz MD [Primary Care Provider] - Print Language: Korean Coding Level of Care Code ED [employer] Supervisor for Dasha Nix
[2025-02-23] MEDS: diazePAM 2 mg Tablet PO (19:16)
--- NOTE | 2025-02-23 20:17 | PC.NURSE ---
96 Hour Hold Pt served with copy of 96 HH by this RN and additional RN. Pt calm, alert and oriented. Pt asked appropriate questions regarding 96 HH.
[2025-02-23 21:43] VITALS: BP 108/78; PULSE 98; O2SAT 98
[2025-02-23 22:00] VITALS: BP 196/96; PULSE 98; RESP 20; TEMP 37.1; O2SAT 98
[2025-02-23 22:35] VITALS: BP 116/75; PULSE 98
[2025-02-24 06:00] VITALS: BP 121/74; PULSE 95; RESP 16; TEMP 36.6; O2SAT 93
--- NOTE | 2025-02-24 06:13 | PC.ADMIT ---
[address] Admission Note: The patient,Zaire Nassar,44 y/o, was given written information regarding hospital policies, unit procedures and contact persons. Patient's smoking status: current some day smoker. Vital Signs - 8 hr 02/23/25 22:35 Pulse Rate 98 Blood Pressure 116/75 Pt. brought in by police on a 96 hr hold. Pt. lives in a single fpc with [employer] as caregivers. Three staff members gave affidavits stating pt. was crossing bridges with water walking through homeless places looking for needles and threatening to blow himself up with his propane grill. Pt. has a guardian June Lezama. Pt. has DM 2
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
[2025-02-24] MEDS: ARIPiprazole 30 mg Tablet 15 MG PO ×2 (08:00→17:40)
[2025-02-24] MEDS: aspirin 81 mg EC Tablet PO (08:00)
[2025-02-24] MEDS: gabapentin 300 mg Capsule PO ×2 (08:00→17:40)
[2025-02-24] MEDS: diazePAM 5 mg Tablet PO ×3 (08:00→19:49)
[2025-02-24] MEDS: metoprolol succinate ER (24 HR) 25 mg Tablet PO (08:00)
[2025-02-24] MEDS: venlafaxine ER (24HR) 150 mg Capsule 300 MG PO (08:01)
[2025-02-24] MEDS: metformin 500 mg Tablet 1000 MG PO ×2 (08:01→17:40)
[2025-02-24 08:02] VITALS: BP 121/74
[2025-02-24] MEDS: cholecalciferol (vitamin D3) 1,000 unit Tablet 2000 UNIT PO (08:02)
[2025-02-24] MEDS: losartan 50 mg Tablet PO (08:02)
[2025-02-24] MEDS: zonisamide 100 MG Capsule 200 MG PO (11:38)
[2025-02-24] MEDS: pioglitazone 30 mg Tablet 45 MG PO (11:38)
[2025-02-24 14:00] VITALS: BP 149/74; PULSE 78; RESP 16; TEMP 37; O2SAT 98
[2025-02-24] MEDS: trazodone 50 mg Tablet PO (19:48)
[2025-02-24] MEDS: hyDROXYzine 25 mg Capsule 50 MG PO (19:48)
[2025-02-24] MEDS: divalproex ER 500 mg Tablet (24H) 2000 MG PO (19:48)
[2025-02-24] MEDS: atorvastatin 40 mg Tablet 80 MG PO (19:49)
[2025-02-24 19:51] VITALS: BP 137/93; PULSE 121; RESP 18; TEMP 36.3; O2SAT 96
[2025-02-25 06:00] VITALS: BP 117/73; PULSE 98; RESP 18; TEMP 36.9; O2SAT 96
[2025-02-25 09:18] VITALS: BP 117/73
[2025-02-25] MEDS: cholecalciferol (vitamin D3) 1,000 unit Tablet 2000 UNIT PO (09:18)
[2025-02-25] MEDS: losartan 50 mg Tablet PO (09:18)
[2025-02-25] MEDS: metoprolol succinate ER (24 HR) 25 mg Tablet PO (09:20)
[2025-02-25] MEDS: metformin 500 mg Tablet 1000 MG PO (09:20)
[2025-02-25] MEDS: venlafaxine ER (24HR) 150 mg Capsule 300 MG PO (09:20)
[2025-02-25] MEDS: gabapentin 300 mg Capsule PO (09:22)
[2025-02-25] MEDS: ARIPiprazole 30 mg Tablet 15 MG PO (09:22)
[2025-02-25] MEDS: aspirin 81 mg EC Tablet PO (09:22)
[2025-02-25] MEDS: diazePAM 5 mg Tablet PO ×2 (09:22→16:28)
[2025-02-25] MEDS: pioglitazone 30 mg Tablet 45 MG PO (09:44)
[2025-02-25] MEDS: zonisamide 100 MG Capsule 200 MG PO (09:44)
[2025-02-25 14:00] VITALS: BP 145/74; PULSE 78; RESP 16; TEMP 36.9; O2SAT 98
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
[2025-02-25 15:56] VITALS: BP 117/73; PULSE 98; RESP 18; TEMP 36.9; O2SAT 96
--- NOTE | 2025-02-25 16:00 | DCPLANNER ---
Pt informed and Imm was given to pt and rights explained. Copy placed in pts chart.
== END 2025-02-25 16:28 | disposition home or self-care (01) | DRG 883 ==
LOC: ER 20:09 → NP 20:43
PROVIDERS: Admitting Provider Psychiatry & Neurology Psychiatry; Emergency Provider Student in an Organized Health Care Education/Training Program; PCP Family Medicine; Visit Provider Psychiatry & Neurology Psychiatry
DX: F63.81 Intermittent explosive disorder (principal); R45.851 Suicidal ideations; F31.9 Bipolar disorder, unspecified; F41.9 Anxiety disorder, unspecified; T42.4X6A Underdosing of benzodiazepines, initial encounter; Z91.128 Patient's intentional underdosing of medication regimen for other reason; E66.9 Obesity, unspecified; Z68.31 Body mass index [BMI] 31.0-31.9, adult; F70 Mild intellectual disabilities; E11.42 Type 2 diabetes mellitus with diabetic polyneuropathy; I10 Essential (primary) hypertension; Z86.711 Personal history of pulmonary embolism; F17.290 Nicotine dependence, other tobacco product, uncomplicated; Z79.4 Long term (current) use of insulin; Z79.85 Long-term (current) use of injectable non-insulin antidiabetic drugs; Z79.82 Long term (current) use of aspirin
CPT/HCPCS: 36415; 80053; 80307; 85025; 97150; 97165; 99285; J9999

== ENCOUNTER → 2025-03-02 10:09 | Outpatient (BNVA) | payer MEDICARE, OTHER, SELFPAY | PROVIDERS: PCP Family Medicine; Visit Provider Nurse Practitioner Psychiatric/Mental Health | DX: Z51.81 Encounter for therapeutic drug level monitoring (principal) | CPT/HCPCS: 80164 ==

== ENCOUNTER 2025-03-04 23:12 | Emergency (ER) | payer OTHER, MEDICAID, SELFPAY ==
[2025-03-04 23:12] VITALS: BP 115/79; PULSE 113; RESP 18; TEMP 36.8; O2SAT 93; BMI 31.6
--- NOTE | 2025-03-04 23:15 | ECG_ITS ---
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 Measurements Intervals [place] Rate: 109 P: 67 MA: 182 QRS: 109 QRSD: 120 T: 50 QT: 318 QTc: 429 Interpretive Statements SINUS TACHYCARDIA RIGHT AXIS DEVIATION [QRS AXIS > 100] ANTEROSEPTAL MYOCARDIAL INFARCTION , OF INDETERMINATE AGE [40+ ms Q WAVE IN V1-V4] Compared to ECG 01/20/2025 21:28:40 Right-axis deviation now present Myocardial infarct finding still present Electronically Signed On 03-09-2025 09:30:30 CDT by Skinny Talbert M.D. [email or web address]
--- NOTE | 2025-03-04 23:18 | XRR_ITS ---
PROCEDURE INFORMATION: Exam: XR Chest Exam date and time: 03/04/2025 11:24 PM Age: 44 years old Clinical indication: Pain; Chest pressure; Additional info: Chest pain TECHNIQUE: Imaging protocol: Radiologic exam of the chest. Views: 1 view. COMPARISON: CR (CHEST, ) 01/20/2025 10:12 PM FINDINGS: Lungs: No consolidation. Pleural spaces: No pleural effusion. No pneumothorax. Heart/Mediastinum: No cardiomegaly. Bones/joints: No acute findings. XR/XR chest 1V portable [id number] IMPRESSION: No acute chest findings.
--- NOTE | 2025-03-04 23:20 | W.ED.CHESTPA ---
HPI - Chest Pain General: Chief Complaint: Chest Pain Stated Complaint: CP Time Seen by Provider: 03/04/25 23:17 History of Present Illness: 44-year-old man with a history of type 2 diabetes, hyperlipidemia, hypertension, pulmonary embolism, bipolar disorder and peripheral neuropathy presents emergency room with chest discomfort. He says this started about an hour ago. He had an episode of vomiting. He describes it as a pressure. No fevers. No cough. No lower extremity swelling. Related Data Home Medications ?Medication ?Instructions ?Recorded ?Confirmed gabapentin 300 mg capsule 300 mg PO BID 10/11/22 03/02/25 (Neurontin) bismuth subsalicylate 262 mg/15 mL 262 mg PO Q4H PRN Indigestion 03/16/23 03/02/25 oral suspension (Stomach Relief) irbesartan 150 mg tablet 150 mg PO DAILY 03/16/23 03/02/25 acetaminophen 500 mg tablet (Pain 1,000 mg PO Q6H PRN Pain 10/24/23 03/02/25 Reliever (acetaminophen)) aspirin 81 mg tablet,delayed 81 mg PO DAILY 10/24/23 03/02/25 release empagliflozin 25 mg tablet 25 mg PO DAILY 10/24/23 03/02/25 (Jardiance) atorvastatin 80 mg tablet 80 mg PO BEDTIME 12/31/23 03/02/25 glucose 4 gram chewable tablet 16 g PO PRN PRN LOW BLOOD SUGAR 12/31/23 03/02/25 ibuprofen 600 mg tablet 600 mg PO TID PRN Pain 12/31/23 03/02/25 promethazine 25 mg tablet 25 mg PO Q6H PRN Nausea And 12/31/23 03/02/25 Vomiting albuterol sulfate 90 mcg/actuation 2 puff inhalation Q4H PRN 08/05/24 03/02/25 aerosol inhaler Shortness Of Breath icosapent ethyl 1 gram capsule 2 g PO BID 08/05/24 03/02/25 (Vascepa) loperamide 2 mg capsule 2 mg PO Q6H PRN Diarrhea 08/05/24 03/02/25 (Anti-Diarrheal (loperamide)) vitamins A,C,O-fmhx-ldhzbt 4,296 1 cap PO BID 08/05/24 03/02/25 mcg-226 mg-90 mg capsule (PreserVision AREDS) cetirizine 10 mg tablet 10 mg PO DAILY PRN allergies 10/23/24 03/02/25 neomycin-bacitracn Zn-polymyx 3.5 1 applic topical DAILY PRN Skin 11/27/24 03/02/25 mg-400 unit-5,000 unit/gram top Irritation oint (Triple Antibiotic) cholecalciferol (vitamin D3) 50 50 mcg PO DAILY 02/19/25 03/02/25 mcg (2,000 unit) tablet Previous Rx's ?Medication ?Instructions ?Recorded omeprazole 40 mg capsule,delayed 40 mg PO DAILY #30 caps 04/19/24 release blood-glucose meter,continuous #1 ea 05/14/24 (FreeStyle Stacey 3 [place]) blood-glucose sensor (FreeStyle #2 ea 05/14/24 Stacey 3 Sensor device) ondansetron 4 mg disintegrating 4 mg PO Q8H PRN nausea and 07/02/24 tablet vomiting #20 tabs blood-glucose meter,continuous #1 ea 08/13/24 (Dexcom G7 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) menthol 10 % topical cream 1 applic topical TID PRN muscle 09/03/24 (Biofreeze (menthol)) pain #85 grams metoprolol succinate 25 mg 25 mg PO DAILY #90 tabs 11/04/24 tablet,extended release 24 hr glucagon 1 mg solution for See Rx Instructions .Route 12/17/24 injection (Glucagon Emergency Kit) .COMPLEX #1 ea tirzepatide 12.5 mg/0.5 mL 12.5 mg (0.5 mL) SUBCUT Q7D #2 mL 01/01/25 subcutaneous pen injector (Elizabeth) blood-glucose sensor (Dexcom G7 #3 ea 01/20/25 Sensor device) apixaban 5 mg tablet (Eliquis) See Rx Instructions .Route 01/21/25 .COMPLEX #180 tabs aripiprazole 30 mg tablet 15 mg (1/2 x 30 mg) PO BID 30 days 02/19/25 #30 tabs divalproex 500 mg tablet,extended 2,000 mg (4 x 500 mg) PO BEDTIME 02/19/25 release 24 hr 30 days #120 tabs venlafaxine 150 mg 300 mg (2 x 150 mg) PO QAM 30 days 02/19/25 capsule,extended release 24 hr #60 caps pioglitazone 45 mg tablet See Rx Instructions .Route 02/23/25 .COMPLEX #30 tabs diazepam 5 mg tablet 5 mg PO TID #90 tabs 02/24/25 insulin lispro 100 unit/mL See Rx Instructions .Route 02/27/25 subcutaneous pen (Humalog KwikPen .COMPLEX #15 mL (U-100) Insulin) metformin 1,000 mg tablet See Rx Instructions .Route 02/27/25 .COMPLEX #31 tabs buspirone 10 mg tablet 10 mg PO BID #60 tabs 03/02/25 zonisamide 100 mg capsule See Rx Instructions .Route 03/02/25 .COMPLEX #62 caps Allergies Allergy/AdvReac Type Severity Reaction Status Date / Time No Known Allergies Allergy Verified 03/02/25 09:20 Review of Systems Narrative: Constitutional symptoms: Negative except as documented in HPI. Skin symptoms: Negative except as documented in HPI. Eye symptoms: Negative except as documented in HPI. ENMT symptoms: Negative except as documented in HPI. Respiratory symptoms: Negative except as documented in HPI. Cardiovascular symptoms: Negative except as documented in HPI. Gastrointestinal symptoms: Negative except as documented in HPI. Genitourinary symptoms: Negative except as documented in HPI. Musculoskeletal symptoms: Negative except as documented in HPI. Neurologic symptoms: Negative except as documented in HPI. Psychiatric symptoms: Negative except as documented in HPI. Endocrine symptoms: Negative except as documented in HPI. PFSH ED PFSH: Medical History Coronary-myocardial bridge Peripheral neuropathy Type 2 diabetes mellitus Hyperlipidemia Hypertension Pulmonary embolism Other reactions to severe stress Bipolar 1 disorder Most recent episode depressed Fracture of [facility] Surgical History History of appendectomy Social History Smoking and tobacco/nicotine status: current some day tobacco/nicotine user e-cigarettes Alcohol intake: current Alcohol intake frequency: few times a month Substance/Drug Use: never Marital status: Single Physical Exam Narrative: EXAM NARRATIVE: General: Alert, no acute distress. Skin: Warm, dry. Head: Normocephalic, atraumatic. Neck: Supple, trachea midline. Eye: Extraocular movements are intact. Ears, nose, mouth and throat: mucosa moist. Cardiovascular: Regular, Normal peripheral perfusion. Respiratory: Lungs are clear to auscultation, respirations are non-labored, breath sounds are equal, Symmetrical chest wall expansion. Gastrointestinal: Soft, Nontender, Non distended Musculoskeletal: Normal ROM, no deformity. Neurological: Alert and oriented, No focal neurological deficit observed. Psychiatric: Cooperative, appropriate mood & affect. Course Vital Signs: Vital signs: Vital Signs Temperature 98.3 F 03/04/25 23:12 Pulse Rate 88 03/05/25 01:53 Respiratory Rate 18 03/04/25 23:12 Blood Pressure 132/78 03/05/25 01:23 Pulse Oximetry 97 03/05/25 01:53 Oxygen Delivery Me thod Room Air 03/04/25 23:23 MDM - Chest Pain Medical Decision Making Differential diagnosis for patient with chest pain includes but is not limited to and based on the above HPI, review of systems and physical exam: Pneumonia. unstable angina. angina. Acute coronary syndrome / [place]. Pulmonary embolism. Costochondritis / musculoskeletal. Pleurisy. Pericarditis. Esophageal spasm. Pancreatis. Cholecystitis. Orders placed to evaluate differential diagnosis based on the above differential, HPI and physical exam EKG: Time 2315. Rate 109. Sinus tachycardia, nonspecific ST changes, no ectopy, normal AK & QRS intervals, This was reviewed and interpreted by myself the ER physician at 2320. Chest x-ray: No acute process. No infiltrate. No pneumothorax. This was reviewed and interpreted by myself the emergency room physician. I also reviewed the radiology report. Lab Review: Laboratory results were reviewed and interpreted by myself the emergency room physician. No leukocytosis. No anemia. No renal failure. Serial troponins are negative. D-dimer is negative. I reviewed the patient's medical record. Reexamination: Patient remained stable. No increased work of breathing. No altered mental status. No focal motor deficits. Assessment and plan: Noncardiac chest pain - Discharged home - Discussed plan with patient. Answered any questions. - Evaluation and treatment of this problem were appropriate in the emergency setting. Lab Data 03/04/25 23:17 03/04/25 23:17 Radiology Impressions Chest X-Ray 03/04/25 23:18 IMPRESSION: No acute chest findings. Laboratory Results WBC 5.32 10^3/uL (3.29-11.43) 03/04/25 23:17 RBC 5.99 10^6/uL (3.85-5.65) H 03/04/25 23:17 Hgb 17.20 g/dL (11.27-16.99) H 03/04/25 23:17 Hct 52.3 % (37-53) 03/04/25 23:17 MCV 87.3 fl (82-101) 03/04/25 23:17 MCH 28.7 pg (27-33) 03/04/25 23:17 MCHC 32.9 g/dL (30-55) 03/04/25 23:17 RDW 13.6 % (12.1-15.1) 03/04/25 23:17 Plt Count 200 10^3/cmm (157-399) 03/04/25 23:17 MPV 10.7 fL (7.4-10.4) H 03/04/25 23:17 Neut % (Auto) 49.0 % 03/04/25 23:17 Lymph % (Auto) 42.3 % 03/04/25 23:17 Ellis % (Auto) 7.1 % 03/04/25 23:17 Eos % (Auto) 0.8 % 03/04/25 23:17 Baso % (Auto) 0.6 % 03/04/25 23:17 Neut # (Auto) 2.61 10^3/uL (1.8-7.7) 03/04/25 23:17 Lymph # (Auto) 2.3 10^3/uL (0.8-4.8) 03/04/25 23:17 Ellis # (Auto) 0.4 10^3/uL (0.2-0.9) 03/04/25 23:17 Eos # (Auto) 0.0 10^3/uL (0.0-0.8) 03/04/25 23:17 Baso # (Auto) 0.0 10^3/uL (0.0-0.1) 03/04/25 23:17 Nucleated RBC % (auto) 0 % 03/04/25 23:17 Nucleated RBCs # 0.0 /100WBC 03/04/25 23:17 D-Dimer <= 0.27 ug/mLFEU (0-0.59) 03/04/25 23:17 Sodium 140 mmol/L (136-145) 03/04/25 23:17 Potassium 4.1 mmol/L (3.5-5.1) 03/04/25 23:17 Chloride 99 mmol/L (98-107) 03/04/25 23:17 Carbon Dioxide 30 mmol/L (22-29) H 03/04/25 23:17 Anion Gap 15.1 (5-19) 03/04/25 23:17 BUN 13 mg/dL (6-20) 03/04/25 23:17 Creatinine 1.1 mg/dL (0.7-1.2) 03/04/25 23:17 GFR Calculation 72.4 mL/min (90-130) L 03/04/25 23:17 Glucose 254 mg/dL (65-115) H 03/04/25 23:17 Calculated Osmolality 299 mOsm/kg (285-295) H 03/04/25 23:17 Calcium 9.4 mg/dL (8.5-10.5) 03/04/25 23:17 Total Bilirubin 0.3 mg/dL (0.15-1.2) 03/04/25 23:17 AST 13 U/L (0-40) 03/04/25 23:17 ALT 18 U/L (0-41) 03/04/25 23:17 Alkaline Phosphatase 94 U/L (40-130) 03/04/25 23:17 Troponin T Baseline 9 ng/L (0-15) 03/04/25 23:17 Troponin T 120 Minute 6.64 ng/L (0-15) 03/05/25 01:15 Delta Troponin T -2.36 ABS# (0-10) L 03/05/25 01:15 Total Protein 6.9 g/dL (6.6-8.7) 03/04/25 23:17 Albumin 4.5 g/dL (3.5-5.2) 03/04/25 23:17 Globulin 2.4 g/dL (1.3-4.6) 03/04/25 23:17 Lipase 24 U/L (13-60) 03/04/25 23:17 All radiology interpretation(s) finalized by discharge Discharge Plan Discharge Patient Disposition: Home Clinical Impression: Non-cardiac chest pain Condition: Stable Prescriptions: No Action gabapentin [Neurontin] 300 mg capsule 300 mg PO BID (DME) FreeStyle Stacey 3 [place] Misc See Rx Instructions .Route Qty: 1 0RF Rx Instructions: As directed (DME) FreeStyle Stacey 3 Sensor Device See Rx Instructions .Route Qty: 2 3RF Rx Instructions: As directed omeprazole 40 mg capsule,delayed release(DR/EC) 40 mg PO DAILY Qty: 30 0RF loperamide [Anti-Diarrheal (loperamide)] 2 mg capsule 2 mg PO Q6H PRN (Reason: Diarrhea) albuterol sulfate 90 mcg/actuation HFA aerosol inhaler 2 puff inhalation Q4H PRN (Reason: Shortness Of Breath) icosapent ethyl [Vascepa] 1 gram capsule 2 g PO BID PreserVision AREDS 4,296 mcg-226 mg-90 mg capsule 1 cap PO BID Triple Antibiotic 3.5mg-400 unit- 5,000 unit/gram ointment 1 applic topical DAILY PRN (Reason: Skin Irritation) cholecalciferol (vitamin D3) 50 mcg (2,000 unit) tablet 50 mcg PO DAILY venlafaxine 150 mg capsule,extended release 24hr 300 mg PO QAM 30 Days Qty: 60 1RF divalproex 500 mg tablet extended release 24 hr 2,000 mg PO BEDTIME 30 Days Qty: 120 1RF aripiprazole 30 mg tablet 15 mg PO BID 30 Days Qty: 30 1RF Rx Instructions: Take one-half tablet twice a day diazepam 5 mg tablet 5 mg PO TID Qty: 90 1RF (DME) Dexcom G7 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 Misc See Rx Instructions .Route Qty: 1 0RF Rx Instructions: As directed Mounjaro 12.5 mg/0.5 mL pen injector 12.5 mg SUBCUT Q7D Qty: 2 3RF buspirone 10 mg tablet 10 mg PO BID Qty: 60 2RF Rx Instructions: Take one tablet twice a day, between doses of diazepam; stop 5 mg BID dose ondansetron 4 mg tablet,disintegrating 4 mg PO Q8H PRN (Reason: nausea and vomiting) Qty: 20 0RF metoprolol succinate 25 mg tablet extended release 24 hr 25 mg PO DAILY Qty: 90 3RF Glucagon Emergency Kit (human) 1 mg recon soln See Rx Instructions .ROUTE .COMPLEX Qty: 1 0RF Dose Instruction: inject 1mg SUBCUTANEOUSLY EVERY 20 MINUTES NEEDED FOR hypoglycemia UNTIL target blood sugar attained Rx Instructions: inject 1mg SUBCUTANEOUSLY EVERY 20 MINUTES NEEDED FOR hypoglycemia UNTIL target blood sugar attained (DME) Dexcom G7 Sensor Device See Rx Instructions .ROUTE .COMPLEX Qty: 3 3RF Dose Instruction: USE DIRECTED Rx Instructions: USE DIRECTED Eliquis 5 mg tablet See Rx Instructions .ROUTE .COMPLEX Qty: 180 3RF Dose Instruction: TAKE 1 TABLET BY MOUTH TWICE DAILY Rx Instructions: TAKE 1 TABLET BY MOUTH TWICE DAILY pioglitazone 45 mg tablet See Rx Instructions .ROUTE .COMPLEX Qty: 30 3RF Dose Instruction: TAKE 1 TABLET BY MOUTH ONCE DAILY Rx Instructions: TAKE 1 TABLET BY MOUTH ONCE DAILY insulin lispro [Humalog KwikPen Insulin] 100 unit/mL insulin pen See Rx Instructions .ROUTE .COMPLEX Qty: 15 2RF Dose Instruction: WAITING FOR SCRIPT FOR DIRECTIONS Rx Instructions: WAITING FOR SCRIPT FOR DIRECTIONS metformin 1,000 mg tablet See Rx Instructions .ROUTE .COMPLEX Qty: 31 2RF Dose Instruction: TAKE 1 TABLET BY MOUTH ONCE DAILY Rx Instructions: TAKE 1 TABLET BY MOUTH ONCE DAILY zonisamide 100 mg capsule See Rx Instructions .ROUTE .COMPLEX Qty: 62 2RF Dose Instruction: TAKE 2 CAPSULES (200MG) BY MOUTH ONCE DAILY Rx Instructions: TAKE 2 CAPSULES (200MG) BY MOUTH ONCE DAILY aspirin 81 mg tablet,delayed release (DR/EC) 81 mg PO DAILY acetaminophen [Pain Reliever (acetaminophen)] 500 mg tablet 1,000 mg PO Q6H PRN (Reason: Pain) Jardiance 25 mg tablet 25 mg PO DAILY Biofreeze (menthol) 10 % cream 1 applic topical TID PRN (Reason: muscle pain) Qty: 85 0RF bismuth subsalicylate [Stomach Relief] 262 mg/15 mL suspension 262 mg PO Q4H PRN (Reason: Indigestion) irbesartan 150 mg tablet 150 mg PO DAILY atorvastatin 80 mg tablet 80 mg PO BEDTIME promethazine 25 mg tablet 25 mg PO Q6H PRN (Reason: Nausea And Vomiting) glucose 4 gram Tablet,Chewable 16 g PO PRN PRN (Reason: LOW BLOOD SUGAR) Rx Instructions: for bs lower than 60 ibuprofen 600 mg tablet 600 mg PO TID PRN (Reason: Pain) cetirizine 10 mg Tablet 10 mg PO DAILY PRN (Reason: allergies) Discharge Orders: Discharge ED (Routine); Ordered 03/05/25 Ordered By: Bety Yanez Referrals: Bautista Ruiz MD [Primary Care Provider, Family Practice] Discharge Diet: Usual diet Discharge Activity: Increase activity as tolerated Patient Instructions: Noncardiac Chest Pain (ED), Opioid Safety, Pain Management Activity Restrictions/Additional Instructions: Thank you for choosing [facility] for your healthcare needs today. You have been screened and evaluated and felt safe for discharge. Health conditions do change or evolve sometimes and as such it is important that you follow up with your Primary Doctor to be re checked, 3-5 days is a general good time frame for follow up. 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
[2025-03-04 23:23] VITALS: PULSE 95; O2SAT 95
[2025-03-04 23:33] VITALS: BP 136/72; PULSE 104; O2SAT 95
[2025-03-04 23:36] LABS: Basophils % 0.6 %; Eosinophils % 0.8 %; Hematocrit 52.3 % (37-53); Lymphocytes # 2.3 10^3/uL (0.8-4.8); Lymphocytes % 42.3 %; Mean Corpuscular HGB Conc 32.9 g/dL (30-55); Mean Corpuscular Hemoglobin 28.7 pg (27-33); Mean Corpuscular Volume 87.3 fl (82-101); Mean Platelet Volume 10.7 fL (7.4-10.4); Monocytes # 0.4 10^3/uL (0.2-0.9); Monocytes % 7.1 %; Neutrophils # 2.61 10^3/uL (1.8-7.7); Nucleated Red Blood Cells % 0 %; Platelet Count 200 10^3/cmm (157-399); Red Blood Count 5.99 10^6/uL (3.85-5.65); Red Cell Distribution Width 13.6 % (12.1-15.1); White Blood Count 5.32 10^3/uL (3.29-11.43)
[2025-03-04 23:46] LABS: D Dimer <= 0.27 ug/mLFEU (0-0.59)
[2025-03-04 23:51] LABS: Alanine Aminotransferase 18 U/L (0-41); Albumin Level 4.5 g/dL (3.5-5.2); Alkaline Phosphatase 94 U/L (40-130); Aspartate Amino Transferase 13 U/L (0-40); Blood Urea Nitrogen 13 mg/dL (6-20); Calcium 9.4 mg/dL (8.5-10.5); Carbon Dioxide 30 mmol/L (22-29); Chloride 99 mmol/L (98-107); Creatinine Clr Calc Pharmacy 109.7356; Globulin 2.4 g/dL (1.3-4.6); Glomerular Filtration Rate 72.4 mL/min (90-130); Glucose 254 mg/dL (65-115); Lipase 24 U/L (13-60); Osmolality Calculated 299 mOsm/kg (285-295); Sodium 140 mmol/L (136-145); Total Bilirubin 0.3 mg/dL (0.15-1.2); Total Protein 6.9 g/dL (6.6-8.7)
[2025-03-04 23:52] LABS: Troponin(5th) Baseline 9 ng/L (0-15)
[2025-03-04 23:53] LABS: Anion Gap 15.1 (5-19); Potassium 4.1 mmol/L (3.5-5.1)
[2025-03-04 23:55] VITALS: BP 136/72; PULSE 101; O2SAT 94
[2025-03-05 00:33] VITALS: BP 134/80; PULSE 92; O2SAT 94
[2025-03-05 00:45] VITALS: PULSE 92; O2SAT 93
--- NOTE | 2025-03-05 01:18 | ECG_ITS ---
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 Measurements Intervals K[place] Rate: 88 P: 62 ME: 209 QRS: 68 QRSD: 115 T: 59 QT: 336 QTc: 408 Interpretive Statements SINUS RHYTHM LOW QRS VOLTAGE IN PRECORDIAL LEADS [QRS DEFLECTION < 1.0 mV IN CHEST LEADS] MODERATE INTRAVENTRICULAR CONDUCTION DELAY [110+ ms QRS DURATION] Compared to ECG 03/04/2025 23:15:03 Low QRS voltage now present Intraventricular conduction delay now present Sinus tachycardia no longer present Right-axis deviation no longer present Myocardial infarct finding no longer present Electronically Signed On 03-09-2025 10:38:29 CDT by Skinny Talbert M.D. [email or web address]
[2025-03-05 01:23] VITALS: BP 132/78; PULSE 92; O2SAT 94
[2025-03-05 01:49] LABS: Troponin 5 2HR 6.64 ng/L (0-15); Troponin 5 2HR Delta -2.36 ABS# (0-10)
[2025-03-05 01:53] VITALS: PULSE 88; O2SAT 97
[2025-03-05 02:04] VITALS: BP 113/74; PULSE 87; O2SAT 93
== END 2025-03-05 02:05 | disposition home or self-care (01) ==
PROVIDERS: Emergency Provider Emergency Medicine; PCP Family Medicine
DX: R07.89 Other chest pain (principal); Z79.01 Long term (current) use of anticoagulants; Z79.4 Long term (current) use of insulin; Z79.82 Long term (current) use of aspirin; Z79.84 Long term (current) use of oral hypoglycemic drugs; F17.290 Nicotine dependence, other tobacco product, uncomplicated; E11.42 Type 2 diabetes mellitus with diabetic polyneuropathy; E78.5 Hyperlipidemia, unspecified; I10 Essential (primary) hypertension
CPT/HCPCS: 36415; 71045; 80053; 83690; 84484; 85025; 85378; 93005; 99285

== ENCOUNTER 2025-03-15 21:50 | Emergency (ER) | payer OTHER, MEDICAID, SELFPAY ==
[2025-03-15 21:52] VITALS: BP 126/83; PULSE 110; TEMP 36.3; O2SAT 96; BMI 30.3
--- NOTE | 2025-03-15 22:21 | ED_ITS ---
HPI - Animal Bite General: Chief Complaint: Animal Bite Stated Complaint: Bite on Left Hand Time Seen by Provider: 03/15/25 22:15 Source: patient Mode of arrival: ambulatory Limitations: no limitations History of Present Illness: 44-year-old male who was bit by his pet rat this morning on his left middle finger he is on cefdinir they are concerned he has some slight redness at the site his pain he rates a 2 out of 10 no fever no drainage. Associated symptoms: Deny chills, fever(s) or headache(s) Related Data Home Medications ?Medication ?Instructions ?Recorded ?Confirmed gabapentin 300 mg capsule 300 mg PO BID 10/11/2203/15 (Neurontin) bismuth subsalicylate 262 mg/15 mL 262 mg PO Q4H PRN I ndigestion 03/16/23 03/15/25 oral suspension (Stomach Relief) irbesartan 150 mg tablet 150 mg PO DAILY 03/16/2309/29 acetaminophen 500 mg tablet (Pain 1,000 mg PO Q6H PRN Pain 10/24/23 03/15/25 Reliever (acetaminophen)) aspirin 81 mg tablet,delayed 81 mg PO DAILY 10/24/23 0 03/15/25 release empagliflozin 25 mg tablet 25 mg PO DAILY 10/24/2309/29 (Jardiance) atorvastatin 80 mg tablet 80 mg PO BEDTIME 12/31/23 glucose 4 gram chewable tablet 16 g PO PRN PRN LOW BLO OD SUGAR 12/31/23 03/15/25 ibuprofen 600 mg tablet 600 mg PO TID PRN Pain 12/3103/15/25 promethazine 25 mg tablet 25 mg PO Q6H PRN Nausea And 12/31/23 03/15/25 Vomiting albuterol sulfate 90 mcg/actuation 2 puff inhalation Q 4H PRN 08/05/24 03/15/25 aerosol inhaler Shortness Of Breath icosapent ethyl 1 gram capsule 2 g PO BID 08/05/2409/29 (Vascepa) loperamide 2 mg capsule 2 mg PO Q6H PRN Diarrhea 11/2803/15/25 (Anti-Diarrheal (loperamide)) vitamins A,C,K-ewel-fknrxi 4,296 1 cap PO BID 08/05/24 03/15/25 mcg-226 mg-90 mg capsule (PreserVision AREDS) cetirizine 10 mg tablet 10 mg PO DAILY PRN allergies 10/23/24 03/15/25 neomycin-bacitracn Zn-polymyx 3.5 1 applic topical ARIELLE LY PRN Skin 11/27/24 03/15/25 mg-400 unit-5,000 unit/gram top Irritation oint (Triple Antibiotic) cholecalciferol (vitamin D3) 50 50 mcg PO DAILY 03/15/25 mcg (2,000 unit) tablet Previous Rx's ?Medication ?Instructions ?Recorded omeprazole 40 mg capsule,delayed 40 mg PO DAILY #30 ca ps 04/19/24 release blood-glucose meter,continuous #1 ea 05/14/24 (FreeStyle Stacey 3 [place]) blood-glucose sensor (FreeStyle #2 ea 05/14/24 Stacey 3 Sensor device) ondansetron 4 mg disintegrating 4 mg PO Q8H PRN nausea and 07/02/24 tablet vomiting #20 tabs blood-glucose meter,continuous #1 ea 08/13/24 (Dexcom G7 Corporate Quality Manager) menthol 10 % topical cream 1 applic topical TID PRN mu scle 09/03/24 (Biofreeze (menthol)) pain #85 grams metoprolol succinate 25 mg 25 mg PO DAILY #90 tabs tablet,extended release 24 hr glucagon 1 mg solution for See Rx Instructions .Route 12/17/24 injection (Glucagon Emergency Kit) .COMPLEX #1 ea tirzepatide 12.5 mg/0.5 mL 12.5 mg (0.5 mL) SUBCUT Q7D #2 mL 01/01/25 subcutaneous pen injector (Elizabeth) blood-glucose sensor (Dexcom G7 #3 ea 01/20/25 Sensor device) apixaban 5 mg tablet (Eliquis) See Rx Instructions .Ro sherrie 01/21/25 .COMPLEX #180 tabs aripiprazole 30 mg tablet 15 mg (1/2 x 30 mg) PO BID 3 0 days 02/19/25 #30 tabs divalproex 500 mg tablet,extended 2,000 mg (4 x 500 mg ) PO BEDTIME 02/19/25 release 24 hr 30 days #120 tabs venlafaxine 150 mg 300 mg (2 x 150 mg) PO QAM 3 0 days 02/19/25 capsule,extended release 24 hr #60 caps pioglitazone 45 mg tablet See Rx Instructions .Route 0 02/23/25 .COMPLEX #30 tabs diazepam 5 mg tablet 5 mg PO TID #90 tabs 5 insulin lispro 100 unit/mL See Rx Instructions .Route 02/27/25 subcutaneous pen (Humalog KwikPen .COMPLEX #15 mL (U-100) Insulin) metformin 1,000 mg tablet See Rx Instructions .Route 0 02/27/25 .COMPLEX #31 tabs buspirone 10 mg tablet 10 mg PO BID #60 tabs zonisamide 100 mg capsule See Rx Instructions .Route 0 03/02/25 .COMPLEX #62 caps cefdinir 300 mg capsule 300 mg PO BID 10 days #20 ca ps 03/15/25 mupirocin 2 % topical ointment 1 applic topical BID #5 0 grams 03/15/25 [facility]) Allergies Allergy/AdvReac Type Severity Reaction Status Date / Time No Known Allergies Allergy Verified 03/15/25 22:00 Review of Systems Const: Denies: fever(s), chills, body aches or change in appetite ENMT: Denies: throat pain or dental pain Card: Denies: chest pain Resp: Denies: dyspnea GI: Denies: abdominal pain, nausea, vomiting or diarrhea Musc: Denies: neck pain or back pain Skin/Breast: Reports: erythema; Denies: rash Neuro: Denies: headache(s) PFSH ED PFSH: Medical History Coronary-myocardial bridge Peripheral neuropathy Type 2 diabetes mellitus Hyperlipidemia Hypertension Pulmonary embolism Other reactions to severe stress Bipolar 1 disorder Most recent episode depressed Fracture of [facility] Surgical History History of appendectomy Social History Smoking and tobacco/nicotine status: current some day tobacco/nicotine user (some vaping) e-cigarettes Alcohol intake: current Alcohol intake frequency: few times a month Substance/Drug Use: never Marital status: Single Physical Exam Const: COMMON NORMALS: no acute distress, patient oriented x3 and healthy appearing HENMT: COMMON NORMALS: normocephalic and atraumatic HEAD & SCALP: normocephalic and atraumatic Neck/C-Spine: COMMON NORMALS: supple Chest: COMMONS NORMALS: normal inspection of the chest Resp: COMMON NORMALS: normal respiratory effort Cardio: COMMON NORMALS: regular rate RATE: regular rate Extremity: NARRATIVE EXTREMITY EXAM: Bite estefanía to left middle finger very slight erythema no severe erythema he is a ble to move his finger no drainage Neuro: COMMON NORMALS: patient oriented x3, moves all extremities and no focal motor deficits Psych: COMMON NORMALS: mental status grossly normal, Normal thought process present and cooperative THOUGHT PROCESS: Normal thought process present Skin: COMMON NORMALS: no rashes or lesions noted GENERAL SKIN EXAM: no rashes or lesions noted Course Vital Signs: Vital signs: Vital Signs Temperature 97.4 F L 03/15/25 21:52 Pulse Rate 110 H 03/15/25 21:52 Blood Pressure 126/83 03/15/25 21:52 Pulse Oximetry 96 03/15/25 21:52 Oxygen Delivery Me thod Room Air 03/15/25 21:52 MDM - Animal Bite Medical Decision Making Patient presents here with bite estefanía to his left middle finger no signs of cellulitis no signs of joint infection he is to continue cefdinir stable for discharge. Medical Records I reviewed the patient's medical records. No radiology studies performed this visit Discharge Plan Discharge Patient Disposition: Home Clinical Impression: Bite by animal Clinical Impression: (Ruled Out): Hypoxemia Condition: Stable Prescriptions: No Action gabapentin [Neurontin] 300 mg capsule 300 mg PO BID (DME) FreeStyle Stacey 3 [place] Misc See Rx Instructions .Route Qty: 1 0RF Rx Instructions: As directed (DME) FreeStyle Stacey 3 Sensor Device See Rx Instructions .Route Qty: 2 3RF Rx Instructions: As directed omeprazole 40 mg capsule,delayed release(DR/EC) 40 mg PO DAILY Qty: 30 0RF loperamide [Anti-Diarrheal (loperamide)] 2 mg capsule 2 mg PO Q6H PRN (Reason: Diarrhea) albuterol sulfate 90 mcg/actuation HFA aerosol inhaler 2 puff inhalation Q4H PRN (Reason: Shortness Of Breath) icosapent ethyl [Vascepa] 1 gram capsule 2 g PO BID PreserVision AREDS 4,296 mcg-226 mg-90 mg capsule 1 cap PO BID Triple Antibiotic 3.5mg-400 unit- 5,000 unit/gram ointment 1 applic topical DAILY PRN (Reason: Skin Irritation) cholecalciferol (vitamin D3) 50 mcg (2,000 unit) tablet 50 mcg PO DAILY venlafaxine 150 mg capsule,extended release 24hr 300 mg PO QAM 30 Days Qty: 60 1RF divalproex 500 mg tablet extended release 24 hr 2,000 mg PO BEDTIME 30 Days Qty: 120 1RF aripiprazole 30 mg tablet 15 mg PO BID 30 Days Qty: 30 1RF Rx Instructions: Take one-half tablet twice a day diazepam 5 mg tablet 5 mg PO TID Qty: 90 1RF (DME) Dexcom G7 Corporate Quality Manager Misc See Rx Instructions .Route Qty: 1 0RF Rx Instructions: As directed Mounjaro 12.5 mg/0.5 mL pen injector 12.5 mg SUBCUT Q7D Qty: 2 3RF buspirone 10 mg tablet 10 mg PO BID Qty: 60 2RF Rx Instructions: Take one tablet twice a day, between doses of diazepam; stop 5 mg BID dose mupirocin [Centany] 2 % ointment 1 applic topical BID Qty: 50 0RF cefdinir 300 mg capsule 300 mg PO BID 10 Days Qty: 20 0RF ondansetron 4 mg tablet,disintegrating 4 mg PO Q8H PRN (Reason: nausea and vomiting) Qty: 20 0RF metoprolol succinate 25 mg tablet extended release 24 hr 25 mg PO DAILY Qty: 90 3RF Glucagon Emergency Kit (human) 1 mg recon soln See Rx Instructions .ROUTE .COMPLEX Qty: 1 0RF Dose Instruction: inject 1mg SUBCUTANEOUSLY EVERY 20 MINUTES NEEDED FOR hypoglycemia UNTIL target blood sugar attained Rx Instructions: inject 1mg SUBCUTANEOUSLY EVERY 20 MINUTES NEEDED FOR hypoglycemia UNTIL target blood sugar attained (DME) Dexcom G7 Sensor Device See Rx Instructions .ROUTE .COMPLEX Qty: 3 3RF Dose Instruction: USE DIRECTED Rx Instructions: USE DIRECTED Eliquis 5 mg tablet See Rx Instructions .ROUTE .COMPLEX Qty: 180 3RF Dose Instruction: TAKE 1 TABLET BY MOUTH TWICE DAILY Rx Instructions: TAKE 1 TABLET BY MOUTH TWICE DAILY pioglitazone 45 mg tablet See Rx Instructions .ROUTE .COMPLEX Qty: 30 3RF Dose Instruction: TAKE 1 TABLET BY MOUTH ONCE DAILY Rx Instructions: TAKE 1 TABLET BY MOUTH ONCE DAILY insulin lispro [Humalog KwikPen Insulin] 100 unit/mL insulin pen See Rx Instructions .ROUTE .COMPLEX Qty: 15 2RF Dose Instruction: WAITING FOR SCRIPT FOR DIRECTIONS Rx Instructions: WAITING FOR SCRIPT FOR DIRECTIONS metformin 1,000 mg tablet See Rx Instructions .ROUTE .COMPLEX Qty: 31 2RF Dose Instruction: TAKE 1 TABLET BY MOUTH ONCE DAILY Rx Instructions: TAKE 1 TABLET BY MOUTH ONCE DAILY zonisamide 100 mg capsule See Rx Instructions .ROUTE .COMPLEX Qty: 62 2RF Dose Instruction: TAKE 2 CAPSULES (200MG) BY MOUTH ONCE DAILY Rx Instructions: TAKE 2 CAPSULES (200MG) BY MOUTH ONCE DAILY aspirin 81 mg tablet,delayed release (DR/EC) 81 mg PO DAILY acetaminophen [Pain Reliever (acetaminophen)] 500 mg tablet 1,000 mg PO Q6H PRN (Reason: Pain) Jardiance 25 mg tablet 25 mg PO DAILY Biofreeze (menthol) 10 % cream 1 applic topical TID PRN (Reason: muscle pain) Qty: 85 0RF bismuth subsalicylate [Stomach Relief] 262 mg/15 mL suspension 262 mg PO Q4H PRN (Reason: Indigestion) irbesartan 150 mg tablet 150 mg PO DAILY atorvastatin 80 mg tablet 80 mg PO BEDTIME promethazine 25 mg tablet 25 mg PO Q6H PRN (Reason: Nausea And Vomiting) glucose 4 gram Tablet,Chewable 16 g PO PRN PRN (Reason: LOW BLOOD SUGAR) Rx Instructions: for bs lower than 60 ibuprofen 600 mg tablet 600 mg PO TID PRN (Reason: Pain) cetirizine 10 mg Tablet 10 mg PO DAILY PRN (Reason: allergies) Discharge Orders: Discharge ED (Routine); Ordered 03/15/25 Ordered By: Wale Vyas Referrals: Bautista Ruiz MD [Primary Care Provider, Family Practice] - 4-7 days Discharge Diet: Advance as tolerated Discharge Activity: Resume usual activity Patient Instructions: Animal Bite (ED) Print Language: Turkish Coding Level of Care Code ED Photography Colorist for Dasha Nix
[2025-03-15 22:32] VITALS: BP 128/88; PULSE 98; O2SAT 98
[2025-03-15 22:34] LABS: Glucose Point of Care 227 mg/dL (70-110)
== END 2025-03-15 22:35 | disposition home or self-care (01) ==
PROVIDERS: Emergency Provider Emergency Medicine; PCP Family Medicine
DX: S61.253A Open bite of left middle finger without damage to nail, initial encounter (principal); W53.11XA Bitten by rat, initial encounter; E78.5 Hyperlipidemia, unspecified; E11.9 Type 2 diabetes mellitus without complications; I10 Essential (primary) hypertension; F17.290 Nicotine dependence, other tobacco product, uncomplicated; Z79.82 Long term (current) use of aspirin; Z79.84 Long term (current) use of oral hypoglycemic drugs; Z79.4 Long term (current) use of insulin; Z79.01 Long term (current) use of anticoagulants
CPT/HCPCS: 36416; 82962; 99283

== ENCOUNTER 2025-03-27 22:26 | Emergency (ER) | payer MEDICARE, MEDICAID, SELFPAY ==
[2025-03-27 22:30] VITALS: BP 123/82; PULSE 103; RESP 18; TEMP 36.6; O2SAT 96; BMI 29.0
--- NOTE | 2025-03-27 22:40 | CTR_ITS ---
PROCEDURE INFORMATION: Exam: CT Cervical Spine Without Contrast Exam date and time: 03/27/2025 11:30 PM Age: 44 years old Clinical indication: EMS arrival for syncope with fall from standing. ; Additional info: Syncope w loc TECHNIQUE: Imaging protocol: Computed tomography of the cervical spine without contrast. Radiation optimization: All CT scans at this facility use at least one of these dose optimization techniques: automated exposure control; mA and/or kV adjustment per patient size (includes targeted exams where dose is matched to clinical indication); or iterative reconstruction. COMPARISON: CT cervical spin wo con* [id number] 12/04/2024 10:05 PM RADIATION DOSE METRICS: Total DLP (mGy-cm): 207.37 FINDINGS: Bones/joints: The cervical vertebral body heights are maintained. Normal alignment. C2-C3: Spinal canal is patent. Mild left neuroforaminal narrowing secondary to uncovertebral and facet hypertrophy. C3-C4: The spinal canal is patent. Mild right and moderate left neuroforaminal narrowing secondary to uncovertebral and facet hypertrophy. C4-C5: Spinal canal is patent. Moderate right and mild left neuroforaminal narrowing secondary to uncovertebral and facet hypertrophy. C5-C6: Broad-based disc osteophyte complex with mild central canal stenosis. Mild left neuroforaminal narrowing secondary to uncovertebral and facet hypertrophy. C6-C7: Broad-based disc osteophyte complex with mild central canal stenosis. No significant neuroforaminal narrowing. C7-T1: No significant disc bulge or herniation. No severe spinal canal stenosis. No significant neuroforaminal narrowing. CT/CT cervical spin wo con* [id number] IMPRESSION: No acute bony abnormality. Degenerative changes of the cervical spine. If symptoms persist, consider further evaluation with MRI, if there are no contraindications to obtaining a MRI scan.
--- NOTE | 2025-03-27 22:40 | CTR_ITS ---
PROCEDURE INFORMATION: Exam: CT Head Without Contrast Exam date and time: 03/27/2025 11:26 PM Age: 44 years old Clinical indication: Syncope and collapse; EMS arrival for syncope with fall from standing. TECHNIQUE: Imaging protocol: Computed tomography of the head without contrast. Radiation optimization: All CT scans at this facility use at least one of these dose optimization techniques: automated exposure control; mA and/or kV adjustment per patient size (includes targeted exams where dose is matched to clinical indication); or iterative reconstruction. COMPARISON: CT head wo con* [id number] 02/05/2025 9:35 PM RADIATION DOSE METRICS: Total DLP (mGy-cm): 1148.91 FINDINGS: Brain: No acute intracranial hemorrhage. No confluent lobar infarct. No mass effect. Cerebral ventricles: The ventricles and sulci are normal in size and shape for the patient's stated age. Paranasal sinuses: No fluid levels. Mastoid air cells: Visualized mastoid air cells are well aerated. Bones: No acute calvarial fracture. Soft tissues: Visualized soft tissues are unremarkable. CT/CT head wo con* [id number] IMPRESSION: No acute intracranial abnormality. If symptoms persist, consider further evaluation with MRI, if there are no contraindications to obtaining a MRI scan.
--- NOTE | 2025-03-27 22:44 | ED_ITS ---
HPI - Seizure 2 General: Chief Complaint: Seizure Stated Complaint: SEIZURE Time Seen by Provider: 03/27/25 22:33 History of Present Illness: HPI Narrative: Patient is a 44-year-old male with chronic history of seizure disorder, resides in residential care with POA,DM2, HTN, chronic anticoagulation that presented to the ED after full syncope with LOC a few seconds. Patient's caregiver at residential home heard a thud. Patient states the last thing he remembered was he was walking into his room to play with his pet snake. Caregiver/coworker reported to patient's bedside he was dazed, and approximately 1 minute later she saw shaking for about 30 seconds to 1 minute. Patient's caregiver immediately called 911 at 2145. EMS arrived at 2217, and patient was not postictal. Caregiver states that he was out of it. And believes that he was postictal. Patient remembers walking into his room, and then the EMS at his side. He is on anticoagulation as noted. He has not had a breakthrough seizure in some time with his medication regimen. He did take his nightly diazepam 5 mg. He has been compliant to all of his medications and they were given at 1999. He denies any recent fever, cold, chills. No chest pain, shortness of breath. Seizure History: No Associated symptoms: Deny chest pain, chills or fever(s) Related Data Home Medications ?Medication ?Instructions ?Recorded ?Confirmed gabapentin 300 mg capsule 300 mg PO BID 10/11/2203/15 (Neurontin) bismuth subsalicylate 262 mg/15 mL 262 mg PO Q4H PRN I ndigestion 03/16/23 03/15/25 oral suspension (Stomach Relief) irbesartan 150 mg tablet 150 mg PO DAILY 03/16/2309/29 acetaminophen 500 mg tablet (Pain 1,000 mg PO Q6H PRN Pain 10/24/23 03/15/25 Reliever (acetaminophen)) aspirin 81 mg tablet,delayed 81 mg PO DAILY 10/24/23 0 03/15/25 release empagliflozin 25 mg tablet 25 mg PO DAILY 10/24/2309/29 (Jardiance) atorvastatin 80 mg tablet 80 mg PO BEDTIME 12/31/23 glucose 4 gram chewable tablet 16 g PO PRN PRN LOW BLO OD SUGAR 12/31/23 03/15/25 ibuprofen 600 mg tablet 600 mg PO TID PRN Pain 12/3103/15/25 promethazine 25 mg tablet 25 mg PO Q6H PRN Nausea And 12/31/23 03/15/25 Vomiting albuterol sulfate 90 mcg/actuation 2 puff inhalation Q 4H PRN 08/05/24 03/15/25 aerosol inhaler Shortness Of Breath icosapent ethyl 1 gram capsule 2 g PO BID 08/05/2409/29 (Vascepa) loperamide 2 mg capsule 2 mg PO Q6H PRN Diarrhea 11/2803/15/25 (Anti-Diarrheal (loperamide)) vitamins A,C,J-xodq-ahspjw 4,296 1 cap PO BID 08/05/24 03/15/25 mcg-226 mg-90 mg capsule (PreserVision AREDS) cetirizine 10 mg tablet 10 mg PO DAILY PRN allergies 10/23/24 03/15/25 neomycin-bacitracn Zn-polymyx 3.5 1 applic topical ARIELLE LY PRN Skin 11/27/24 03/15/25 mg-400 unit-5,000 unit/gram top Irritation oint (Triple Antibiotic) cholecalciferol (vitamin D3) 50 50 mcg PO DAILY 03/15/25 mcg (2,000 unit) tablet Previous Rx's ?Medication ?Instructions ?Recorded omeprazole 40 mg capsule,delayed 40 mg PO DAILY #30 ca ps 04/19/24 release blood-glucose sensor (FreeStyle #2 ea 05/14/24 Stacey 3 Sensor device) blood-glucose,health communications specialist,cont #1 ea 05/14/24 (FreeStyle Stacey 3 [place]) ondansetron 4 mg disintegrating 4 mg PO Q8H PRN nausea and 07/02/24 tablet vomiting #20 tabs blood-glucose,health communications specialist,cont #1 ea 08/13/24 (Dexcom G7 Relationship Advisor) menthol 10 % topical cream 1 applic topical TID PRN mu scle 09/03/24 (Biofreeze (menthol)) pain #85 grams metoprolol succinate 25 mg 25 mg PO DAILY #90 tabs tablet,extended release 24 hr glucagon 1 mg solution for See Rx Instructions .Route 12/17/24 injection (Glucagon Emergency Kit) .COMPLEX #1 ea tirzepatide 12.5 mg/0.5 mL 12.5 mg (0.5 mL) SUBCUT Q7D #2 mL 01/01/25 subcutaneous pen injector (Edwinunfrancisco javierro) blood-glucose sensor (Dexcom G7 #3 ea 01/20/25 Sensor device) apixaban 5 mg tablet (Eliquis) See Rx Instructions .Ro chilkoot 01/21/25 .COMPLEX #180 tabs aripiprazole 30 mg tablet 15 mg (1/2 x 30 mg) PO BID 3 0 days 02/19/25 #30 tabs divalproex 500 mg tablet,extended 2,000 mg (4 x 500 mg ) PO BEDTIME 02/19/25 release 24 hr 30 days #120 tabs venlafaxine 150 mg 300 mg (2 x 150 mg) PO QAM 3 0 days 02/19/25 capsule,extended release 24 hr #60 caps pioglitazone 45 mg tablet See Rx Instructions .Route 0 02/23/25 .COMPLEX #30 tabs diazepam 5 mg tablet 5 mg PO TID #90 tabs 5 insulin lispro 100 unit/mL See Rx Instructions .Route 02/27/25 subcutaneous pen (Humalog KwikPen .COMPLEX #15 mL (U-100) Insulin) metformin 1,000 mg tablet See Rx Instructions .Route 0 02/27/25 .COMPLEX #31 tabs buspirone 10 mg tablet 10 mg PO BID #60 tabs zonisamide 100 mg capsule See Rx Instructions .Route 0 03/02/25 .COMPLEX #62 caps cefdinir 300 mg capsule 300 mg PO BID 10 days #20 ca ps 03/15/25 mupirocin 2 % topical ointment 1 applic topical BID #5 0 grams 03/15/25 (Centany) Allergies Allergy/AdvReac Type Severity Reaction Status Date / Time No Known Allergies Allergy Verified 03/15/25 22:00 Review of Systems 2 General: Reports: 10 or more systems reviewed and unremarkable except in HPI and below Const: Denies: fever(s) or chills ENMT: Denies: throat pain or odynophagia Card: Denies: chest pain or palpitations Resp: Denies: dyspnea or productive cough GI: Denies: abdominal pain, nausea or vomiting : Denies: flank pain or difficulty urinating Musc: Denies: neck pain, back pain or joint pain Neuro: Reports: Slurred speech present (chronic); Denies: headache(s), sensory changes, dizziness or behavioral changes Psych: Denies: anxiety or depression PFSH ED 2 PFSH: Medical History Coronary-myocardial bridge Peripheral neuropathy Type 2 diabetes mellitus Hyperlipidemia Hypertension Pulmonary embolism Other reactions to severe stress Bipolar 1 disorder Most recent episode depressed Fracture of [facility]iatric care Surgical History History of appendectomy Social History Smoking and tobacco/nicotine status: current some day tobacco/nicotine user (some vaping) e-cigarettes Alcohol intake: current Alcohol intake frequency: few times a month Substance/Drug Use: never Marital status: Single Physical Exam 2 Const: COMMON NORMALS: patient oriented x3 and alert O RIENTATION/CONSCIOUSNESS: Yes oriented to person, Yes oriented to place and Yes oriented to time Eye: COMMON NORMALS: Equal, round and reactive pupils present and EOMs intact bilaterally PUPIL: Yes Equal, round and reactive pupils present Neck/C-Spine: COMMON NORMALS: full ROM GENERAL: Yes normal visual inspection CERVICAL SPINE: Yes cervical ROM normal Lymph: LYMPHATIC: no lymphadenopathy noted Chest: COMMONS NORMALS: normal inspection of the chest Resp: COMMON NORMALS: normal respiratory effort and clear to auscultation bilaterally AUSCULTATION: clear to auscultation bilaterally Cardio: COMMON NORMALS: S1 normal heart sound present and S2 normal heart sound present HEART SOUNDS: S1 normal heart sound present and S2 normal heart sound present GI: COMMON NORMALS: Normal to inspection, nondistended, normoactive bowel sounds present, Soft to palpation and non-tender INSPECTION: Yes normal to inspection PALPATION: Yes Soft to palpation : COMMON NORMALS: Yes no CVA tenderness BLADDER/KIDNEY EXAM: Yes no CVA tenderness Back/Pelvis: COMMON NORMALS: no CVA tenderness Extremity: COMMON NORMALS: normal to inspection and full ROM Neuro: MALINDA COMA SCALE: document GCS findings [place] coma scale eye opening: Spontaneous Malinda coma scale verbal response: Orientated [place] coma scale motor response: Obey commands Malinda coma scale total score: 15 COMMON NORMALS: patient oriented x3 and no sensory deficits noted S ENSORIUM/ORIENTATION: Yes alert, Yes oriented to person, Yes oriented to place and Yes oriented to time COORDINATION/BALANCE: [id number] test normal SPEECH: expressive aphasia (chronic without change) GAIT: Yes Unable to assess gait SENSORY EXAM: No extremities MOTOR EXAM: 5/5 motor strength present throughout COORDINATION: [id number] test normal PUPIL EXAM: N ormal pupillary reactivity/response: bilateral Psych: COMMON NORMALS: mental status grossly normal and Normal thought process present ATTITUDE: Yes calm THOUGHT PROCESS: Normal thought process present Skin: COMMON NORMALS: no rashes or lesions noted and no wounds GENERAL SKIN EXAM: no rashes or lesions noted Course 2 Vital Signs: Vital signs: Vital Signs Temperature 98 F 03/27/25 22:30 Pulse Rate 94 03/28/25 00:02 Respiratory Rate 18 03/28/25 00:02 Blood Pressure 128/76 03/28/25 00:02 Pulse Oximetry 95 03/28/25 00:02 Oxygen Delivery Me thod Room Air 03/28/25 00:02 MDM - Seizure MDM Narrative Medical decision making narrative: Patient is a 44-year-old gentleman with chronic residential home and POA, longstanding seizure disorder, on multiple medications, compliant, including Depakote, Vascepa, Zonisamide, gabapentin, and scheduled Valium with full syncope with few seconds of LOC, found on his abdomen, on anticoagulation, both with what appeared to be a witnessed seizure by residential staff. Suspect seizure. No injury is noted on physical examination. Will rule out intracranial bleed, along with cervical fracture. Patient does not have any midline cervical tenderness or concerns. Since this was recent, not unwitnessed, however staff reported just as soon as hearing the thud, 911 was called immediately, and staff noted that patient was most likely postictal for that 30-minute., We will most likely treat for seizure breakthrough if testing is negative. Given the short amount of time, will check prolactin although seizure is suspected. Will check valproic acid level to ensure patient is therapeutic on Depakote. As well as consideration the differential diagnosis was patient was bit by a rat on 03/15 and seen in the ED. This was the mom of rat to the babies that his snake would eat. This rat has been observed for the last 2 weeks and there has not been any untoward behavior. Patient does not appear to have any association of encephalopathy/consideration of rabies. The current events appear to be associated with pseudoseizure, or stress disorder which patient has had in the past. Lab Data 03/27/25 22:50 03/27/25 22:50 Labs: Radiology Impressions Cervical Spine CT 03/27/25 22:40 IMPRESSION: No acute bony abnormality. Degenerative changes of the cervical spine. If symptoms persist, consider further evaluation with MRI, if there are no contraindications to obtaining a MRI scan. Head CT 03/27/25 22:40 IMPRESSION: No acute intracranial abnormality. If symptoms persist, consider further evaluation with MRI, if there are no contraindications to obtaining a MRI scan. Chest X-Ray 03/28/25 00:30 IMPRESSION: No focal lung consolidation. Laboratory Results WBC 5.47 10^3/uL (3.29-11.43) 03/27/25 22:50 RBC 5.32 10^6/uL (3.85-5.65) 03/27/25 22:50 Hgb 15.50 g/dL (11.27-16.99) 03/27/25 22:50 Hct 47.4 % (37-53) 03/27/25 22:50 MCV 89.1 fl (82-101) 03/27/25 22:50 MCH 29.1 pg (27-33) 03/27/25 22:50 MCHC 32.7 g/dL (30-55) 03/27/25 22:50 RDW 14.2 % (12.1-15.1) 03/27/25 22:50 Plt Count 200 10^3/cmm (157-399) 03/27/25 22:50 MPV 9.9 fL (7.4-10.4) 03/27/25 22:50 Neut % (Auto) 43.4 % 03/27/25 22:50 Lymph % (Auto) 48.1 % 03/27/25 22:50 [place] % (Auto) 6.8 % 03/27/25 22:50 Eos % (Auto) 1.1 % 03/27/25 22:50 Baso % (Auto) 0.4 % 03/27/25 22:50 Neut # (Auto) 2.38 10^3/uL (1.8-7.7) 03/27/25 22:50 Lymph # (Auto) 2.6 10^3/uL (0.8-4.8) 03/27/25 22:50 [place] # (Auto) 0.4 10^3/uL (0.2-0.9) 03/27/25 22:50 Eos # (Auto) 0.1 10^3/uL (0.0-0.8) 03/27/25 22:50 Baso # (Auto) 0.0 10^3/uL (0.0-0.1) 03/27/25 22:50 Nucleated RBC % (auto) 0 % 03/27/25 22:50 Nucleated RBCs # 0.0 /100WBC 03/27/25 22:50 Sodium 139 mmol/L (136-145) 03/27/25 22:50 Potassium 3.8 mmol/L (3.5-5.1) 03/27/25 22:50 Chloride 101 mmol/L (98-107) 03/27/25 22:50 Carbon Dioxide 25 mmol/L (22-29) 03/27/25 22:50 Anion Gap 16.8 (5-19) 03/27/25 22:50 BUN 18 mg/dL (6-20) 03/27/25 22:50 Creatinine 0.9 mg/dL (0.7-1.2) 03/27/25 22:50 GFR Calculation 91.3 mL/min (90-130) 03/27/25 22:50 Glucose 251 mg/dL (65-115) H 03/27/25 22:50 Calculated Osmolality 298 mOsm/kg (285-295) H 03/27/25 22:50 Calcium 9.1 mg/dL (8.5-10.5) 03/27/25 22:50 Total Bilirubin 0.4 mg/dL (0.15-1.2) 03/27/25 22:50 AST 12 U/L (0-40) 03/27/25 22:50 ALT 17 U/L (0-41) 03/27/25 22:50 Alkaline Phosphatase 73 U/L (40-130) 03/27/25 22:50 Total Protein 5.9 g/dL (6.6-8.7) L 03/27/25 22:50 Albumin 3.9 g/dL (3.5-5.2) 03/27/25 22:50 Globulin 2.0 g/dL (1.3-4.6) 03/27/25 22:50 Prolactin 2.46 ng/mL (4.0-15.2) L 03/27/25 22:50 Valproic Acid 58.7 ug/mL (50-100) 03/27/25 22:50 Influenza A (PCR) Negative (Negative) 03/27/25 23:05 Influenza Type B (PCR) Negative (Negative) 03/27/25 23:05 RSV (PCR) Negative (Negative) 03/27/25 23:05 SARS-CoV-2 (PCR) Negative (Negative) 03/27/25 23:05 All radiology interpretation(s) finalized by discharge ED provider radiology interpretation(s): no acute findings EKG Data EKG 1: Interpretation: Normal axis, sinus rhythm, no ST segment elevation, QTc 391 ms Discharge Plan Discharge Patient Disposition: Home Clinical Impression: Other reactions to severe stress Condition: Stable Prescriptions: No Action gabapentin [Neurontin] 300 mg capsule 300 mg PO BID (DME) FreeStyle Stacey 3 [place] Misc See Rx Instructions .Route Qty: 1 0RF Rx Instructions: As directed (DME) FreeStyle Stacey 3 Sensor Device See Rx Instructions .Route Qty: 2 3RF Rx Instructions: As directed omeprazole 40 mg capsule,delayed release(DR/EC) 40 mg PO DAILY Qty: 30 0RF loperamide [Anti-Diarrheal (loperamide)] 2 mg capsule 2 mg PO Q6H PRN (Reason: Diarrhea) albuterol sulfate 90 mcg/actuation HFA aerosol inhaler 2 puff inhalation Q4H PRN (Reason: Shortness Of Breath) icosapent ethyl [Vascepa] 1 gram capsule 2 g PO BID PreserVision AREDS 4,296 mcg-226 mg-90 mg capsule 1 cap PO BID Triple Antibiotic 3.5mg-400 unit- 5,000 unit/gram ointment 1 applic topical DAILY PRN (Reason: Skin Irritation) cholecalciferol (vitamin D3) 50 mcg (2,000 unit) tablet 50 mcg PO DAILY venlafaxine 150 mg capsule,extended release 24hr 300 mg PO QAM 30 Days Qty: 60 1RF divalproex 500 mg tablet extended release 24 hr 2,000 mg PO BEDTIME 30 Days Qty: 120 1RF aripiprazole 30 mg tablet 15 mg PO BID 30 Days Qty: 30 1RF Rx Instructions: Take one-half tablet twice a day diazepam 5 mg tablet 5 mg PO TID Qty: 90 1RF (DME) Dexcom G7 Relationship Advisor Misc See Rx Instructions .Route Qty: 1 0RF Rx Instructions: As directed Mounjaro 12.5 mg/0.5 mL pen injector 12.5 mg SUBCUT Q7D Qty: 2 3RF buspirone 10 mg tablet 10 mg PO BID Qty: 60 2RF Rx Instructions: Take one tablet twice a day, between doses of diazepam; stop 5 mg BID dose mupirocin [Centany] 2 % ointment 1 applic topical BID Qty: 50 0RF cefdinir 300 mg capsule 300 mg PO BID 10 Days Qty: 20 0RF ondansetron 4 mg tablet,disintegrating 4 mg PO Q8H PRN (Reason: nausea and vomiting) Qty: 20 0RF metoprolol succinate 25 mg tablet extended release 24 hr 25 mg PO DAILY Qty: 90 3RF Glucagon Emergency Kit (human) 1 mg recon soln See Rx Instructions .ROUTE .COMPLEX Qty: 1 0RF Dose Instruction: inject 1mg SUBCUTANEOUSLY EVERY 20 MINUTES NEEDED FOR hypoglycemia UNTIL target blood sugar attained Rx Instructions: inject 1mg SUBCUTANEOUSLY EVERY 20 MINUTES NEEDED FOR hypoglycemia UNTIL target blood sugar attained (DME) Dexcom G7 Sensor Device See Rx Instructions .ROUTE .COMPLEX Qty: 3 3RF Dose Instruction: USE DIRECTED Rx Instructions: USE DIRECTED Eliquis 5 mg tablet See Rx Instructions .ROUTE .COMPLEX Qty: 180 3RF Dose Instruction: TAKE 1 TABLET BY MOUTH TWICE DAILY Rx Instructions: TAKE 1 TABLET BY MOUTH TWICE DAILY pioglitazone 45 mg tablet See Rx Instructions .ROUTE .COMPLEX Qty: 30 3RF Dose Instruction: TAKE 1 TABLET BY MOUTH ONCE DAILY Rx Instructions: TAKE 1 TABLET BY MOUTH ONCE DAILY insulin lispro [Humalog KwikPen Insulin] 100 unit/mL insulin pen See Rx Instructions .ROUTE .COMPLEX Qty: 15 2RF Dose Instruction: WAITING FOR SCRIPT FOR DIRECTIONS Rx Instructions: WAITING FOR SCRIPT FOR DIRECTIONS metformin 1,000 mg tablet See Rx Instructions .ROUTE .COMPLEX Qty: 31 2RF Dose Instruction: TAKE 1 TABLET BY MOUTH ONCE DAILY Rx Instructions: TAKE 1 TABLET BY MOUTH ONCE DAILY zonisamide 100 mg capsule See Rx Instructions .ROUTE .COMPLEX Qty: 62 2RF Dose Instruction: TAKE 2 CAPSULES (200MG) BY MOUTH ONCE DAILY Rx Instructions: TAKE 2 CAPSULES (200MG) BY MOUTH ONCE DAILY aspirin 81 mg tablet,delayed release (DR/EC) 81 mg PO DAILY acetaminophen [Pain Reliever (acetaminophen)] 500 mg tablet 1,000 mg PO Q6H PRN (Reason: Pain) Jardiance 25 mg tablet 25 mg PO DAILY Biofreeze (menthol) 10 % cream 1 applic topical TID PRN (Reason: muscle pain) Qty: 85 0RF bismuth subsalicylate [Stomach Relief] 262 mg/15 mL suspension 262 mg PO Q4H PRN (Reason: Indigestion) irbesartan 150 mg tablet 150 mg PO DAILY atorvastatin 80 mg tablet 80 mg PO BEDTIME promethazine 25 mg tablet 25 mg PO Q6H PRN (Reason: Nausea And Vomiting) glucose 4 gram Tablet,Chewable 16 g PO PRN PRN (Reason: LOW BLOOD SUGAR) Rx Instructions: for bs lower than 60 ibuprofen 600 mg tablet 600 mg PO TID PRN (Reason: Pain) cetirizine 10 mg Tablet 10 mg PO DAILY PRN (Reason: allergies) Discharge Orders: Discharge ED (Routine); Ordered 03/28/25 Ordered By: Kalina Montes Referrals: Bautista Ruiz MD [Primary Care Provider, [facility]] Discharge Diet: Usual diet Discharge Activity: Resume usual activity Patient Instructions: Stress (ED) Activity Restrictions/Additional Instructions: No additional findings were noted to have concerned. Seizure is essentially ruled out. Continue your current medications as noted by your neurologist. No bleeding was noted by your head CAT scan, or your neck did not show any acute fracture. Precautions for contact sports would be given, and should be avoided x 1 month. Call your doctor and neurologist next week for appointment follow-up from ED. Print Language: Thai Coding Level of Care Code ED Maintenance Mechanic Technician for Dasha Nix
[2025-03-27 22:57] LABS: Basophils % 0.4 %; Eosinophils # 0.1 10^3/uL (0.0-0.8); Eosinophils % 1.1 %; Hematocrit 47.4 % (37-53); Lymphocytes # 2.6 10^3/uL (0.8-4.8); Lymphocytes % 48.1 %; Mean Corpuscular HGB Conc 32.7 g/dL (30-55); Mean Corpuscular Hemoglobin 29.1 pg (27-33); Mean Corpuscular Volume 89.1 fl (82-101); Mean Platelet Volume 9.9 fL (7.4-10.4); Monocytes # 0.4 10^3/uL (0.2-0.9); Monocytes % 6.8 %; Neutrophils # 2.38 10^3/uL (1.8-7.7); Neutrophils % 43.4 %; Nucleated Red Blood Cells % 0 %; Platelet Count 200 10^3/cmm (157-399); Red Blood Count 5.32 10^6/uL (3.85-5.65); Red Cell Distribution Width 14.2 % (12.1-15.1); White Blood Count 5.47 10^3/uL (3.29-11.43)
--- NOTE | 2025-03-27 23:09 | ECG_ITS ---
[employer] Test Date: 2025-03-27 Pat Name: Zaire Nassar Department: Room: Gender: Male Boardmarker: : 1980 Requested By: Kalina Montes Order Number: [id number] Drew MD: YOVANA POOL Measurements Intervals [place] Rate: 95 P: 48 [place]: 205 QRS: 4 QRSD: 110 T: 31 QT: 338 QTc: 426 Interpretive Statements SINUS RHYTHM SEPTAL MYOCARDIAL INFARCTION , OF INDETERMINATE AGE [40+ ms Q WAVE IN V1/V2] Compared to ECG 03/05/2025 01:12:42 Myocardial infarct finding now present Intraventricular conduction delay no longer present Electronically Signed On 03-30-2025 19:06:51 CDT by YOVANA POOL [id number]
[2025-03-27 23:10] VITALS: BP 115/73; RESP 18; O2SAT 98
[2025-03-27 23:17] LABS: Valproic Acid Level 58.7 ug/mL (50-100)
[2025-03-27 23:21] LABS: Alanine Aminotransferase 17 U/L (0-41); Albumin Level 3.9 g/dL (3.5-5.2); Alkaline Phosphatase 73 U/L (40-130); Anion Gap 16.8 (5-19); Aspartate Amino Transferase 12 U/L (0-40); Blood Urea Nitrogen 18 mg/dL (6-20); Calcium 9.1 mg/dL (8.5-10.5); Carbon Dioxide 25 mmol/L (22-29); Chloride 101 mmol/L (98-107); Creatinine Clr Calc Pharmacy 128.8012; Glomerular Filtration Rate 91.3 mL/min (90-130); Glucose 251 mg/dL (65-115); Osmolality Calculated 298 mOsm/kg (285-295); Potassium 3.8 mmol/L (3.5-5.1); Sodium 139 mmol/L (136-145); Total Bilirubin 0.4 mg/dL (0.15-1.2); Total Protein 5.9 g/dL (6.6-8.7)
[2025-03-27 23:49] LABS: Prolactin 2.46 ng/mL (4.0-15.2)
[2025-03-27 23:53] VITALS: BP 133/82; PULSE 97; RESP 18; O2SAT 94
[2025-03-28 00:02] VITALS: BP 128/76; PULSE 94; RESP 18; O2SAT 95
[2025-03-28] MEDS: pantoprazole 40 mg SDV 80 MG IVP (00:03)
[2025-03-28 00:28] LABS: Influenza A NEGATIVE (Negative); Influenza B NEGATIVE (Negative); Respiratory Syncytial Virus Ce NEGATIVE (Negative); SARS-CoV-2 PCR NEGATIVE (Negative)
--- NOTE | 2025-03-28 00:30 | XRR_ITS ---
PROCEDURE INFORMATION: Exam: XR Chest Exam date and time: 03/28/2025 12:39 AM Age: 44 years old Clinical indication: EMS arrival fro syncope TECHNIQUE: Imaging protocol: Radiologic exam of the chest. Views: 1 view. COMPARISON: CR (CHEST, ) 03/04/2025 11:24 PM FINDINGS: Lungs: No focal lung consolidation. Pleural spaces: No pleural effusion. No pneumothorax. Heart/Mediastinum: No cardiomegaly. Bones/joints: No acute bony abnormality. XR/XR chest 1V portable [id number] IMPRESSION: No focal lung consolidation.
[2025-03-28 01:33] VITALS: BP 117/82; PULSE 86; RESP 16; O2SAT 95
== END 2025-03-28 01:35 | disposition home or self-care (01) ==
PROVIDERS: Emergency Provider Physician Assistant; PCP Family Medicine
DX: F43.89 Other reactions to severe stress (principal); G40.909 Epilepsy, unspecified, not intractable, without status epilepticus; E11.9 Type 2 diabetes mellitus without complications; I10 Essential (primary) hypertension; Z79.01 Long term (current) use of anticoagulants; Z79.899 Other long term (current) drug therapy; Z79.84 Long term (current) use of oral hypoglycemic drugs
CPT/HCPCS: 36415; 70450; 71045; 72125; 80053; 80164; 84146; 85025; 87637; 93005; 96374; 99285; J2470

== ENCOUNTER → 2025-04-02 10:46 | Outpatient (BNVA) | payer MEDICARE, SELFPAY | PROVIDERS: PCP Family Medicine; Visit Provider Internal Medicine | DX: E11.9 Type 2 diabetes mellitus without complications (principal); Z79.4 Long term (current) use of insulin; E78.5 Hyperlipidemia, unspecified | CPT/HCPCS: 99214 ==

== ENCOUNTER → 2025-04-07 10:08 | Outpatient (BNVA) | payer MEDICARE, SELFPAY | PROVIDERS: PCP Family Medicine; Visit Provider Podiatrist Foot & Ankle Surgery | DX: E11.42 Type 2 diabetes mellitus with diabetic polyneuropathy (principal); L60.3 Nail dystrophy; Z79.84 Long term (current) use of oral hypoglycemic drugs; Z79.4 Long term (current) use of insulin | CPT/HCPCS: 11721 ==

== ENCOUNTER 2025-04-26 22:21 | Emergency (ER) | payer OTHER, MEDICAID, SELFPAY ==
[2025-04-26 22:22] VITALS: BP 102/52; PULSE 109; RESP 18; TEMP 36.6; O2SAT 92; BMI 30.3
--- NOTE | 2025-04-26 22:29 | ECG_ITS ---
[employer] Test Date: 2025-04-26 Pat Name: Zaire Nassar Department: Room: Gender: Male Customer Experience Associate: : 1980 Requested By: Abdiel Yap Order Number: [id number] Russell MD: Skinny Talbert M.D. Measurements Intervals [place] Rate: 107 P: 38 MI: 199 QRS: -13 QRSD: 100 T: 32 QT: 321 QTc: 429 Interpretive Statements SINUS TACHYCARDIA ANTEROSEPTAL MYOCARDIAL INFARCTION , OF INDETERMINATE AGE [40+ ms Q WAVE IN V1-V4] Compared to ECG 03/27/2025 23:09:16 Sinus rhythm no longer present Myocardial infarct finding still present Electronically Signed On 04-28-2025 17:29:16 CDT by Skinny Talbert M.D. [email or web address]
--- NOTE | 2025-04-26 22:29 | XRR_ITS ---
PROCEDURE INFORMATION: Exam: XR Chest Exam date and time: 04/26/2025 10:30 PM Age: 44 years old Clinical indication: Chest pressure; C/O chest pain; Additional info: Cp TECHNIQUE: Imaging protocol: Radiologic exam of the chest. Views: 1 view. COMPARISON: CR (CHEST, ) 03/28/2025 12:39 AM FINDINGS: Lungs: No pulmonary consolidation. Pleural spaces: No pleural effusion or pneumothorax. Heart/Mediastinum: Heart size is within normal limits. Bones/joints: No acute osseous abnormalities are seen. XR/XR chest 1V portable [id number] IMPRESSION: No acute cardiopulmonary disease.
[2025-04-26 22:42] LABS: Basophils % 0.5 %; Eosinophils # 0.1 10^3/uL (0.0-0.8); Eosinophils % 1.6 %; Hematocrit 51.3 % (37-53); Lymphocytes # 2.9 10^3/uL (0.8-4.8); Lymphocytes % 45.6 %; Mean Corpuscular HGB Conc 33.3 g/dL (30-55); Mean Corpuscular Hemoglobin 29.6 pg (27-33); Mean Corpuscular Volume 88.8 fl (82-101); Mean Platelet Volume 10.5 fL (7.4-10.4); Monocytes # 0.5 10^3/uL (0.2-0.9); Monocytes % 7.1 %; Neutrophils # 2.87 10^3/uL (1.8-7.7); Neutrophils % 44.9 %; Nucleated Red Blood Cells % 0 %; Platelet Count 236 10^3/cmm (157-399); Red Blood Count 5.78 10^6/uL (3.85-5.65); Red Cell Distribution Width 13.9 % (12.1-15.1); White Blood Count 6.38 10^3/uL (3.29-11.43)
[2025-04-26 22:46] VITALS: BP 102/52; PULSE 93; RESP 19; O2SAT 93
[2025-04-26 22:59] LABS: Troponin(5th) Baseline 8 ng/L (0-15)
[2025-04-26 23:01] VITALS: BP 97/62; PULSE 92; RESP 13; O2SAT 93
[2025-04-26 23:10] LABS: Alanine Aminotransferase 20 U/L (0-41); Albumin Level 4.6 g/dL (3.5-5.2); Alkaline Phosphatase 83 U/L (40-130); Aspartate Amino Transferase 14 U/L (0-40); Blood Urea Nitrogen 17 mg/dL (6-20); Calcium 9.9 mg/dL (8.5-10.5); Carbon Dioxide 27 mmol/L (22-29); Chloride 99 mmol/L (98-107); Creatinine Clr Calc Pharmacy 147.8939; Globulin 2.3 g/dL (1.3-4.6); Glomerular Filtration Rate 104.5 mL/min (90-130); Glucose 244 mg/dL (65-115); NT Pro B Type Natriuretic Pept < 36 pg/mL (0-125); Osmolality Calculated 302 mOsm/kg (285-295); Sodium 141 mmol/L (136-145); Total Bilirubin 0.4 mg/dL (0.15-1.2); Total Protein 6.9 g/dL (6.6-8.7)
[2025-04-26 23:11] LABS: Anion Gap 19.2 (5-19); Potassium 4.2 mmol/L (3.5-5.1)
[2025-04-26] MEDS: lidocaine 5% Patch 1 PATCH TOPICAL (23:15)
[2025-04-26 23:19] LABS: Creatine Phosphokinase 86 U/L (39-308); Lipase 22 U/L (13-60)
[2025-04-26 23:30] VITALS: BP 106/66; PULSE 98; RESP 14; O2SAT 96
--- NOTE | 2025-04-26 23:45 | W.ED.CHESTPA ---
HPI - Chest Pain General: Chief Complaint: Chest Pain Stated Complaint: CHEST PAIN Time Seen by Provider: 04/26/25 22:29 History of Present Illness: Patient started having chest pain today at 1300. He complains of it in the left center area of his chest associated with shortness of breath but no nausea or vomiting. He has previous LHC without coronary artery disease, followed up with cardiology, and myocardial bridging was noted. He is chronically on apixaban for previous pulmonary embolism and compliant. 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 No other symptoms. No fevers. No nausea. No abdominal pain. No dysuria, no flank pain, and no epigastric pain. Does not penetrate to the back. Associated symptoms: Deny abdominal pain, dyspnea, fever(s), nausea, palpitations or vomiting Related Data Home Medications ?Medication ?Instructions ?Recorded ?Confirmed gabapentin 300 mg capsule 300 mg PO BID 10/11/22 04/13/25 (Neurontin) bismuth subsalicylate 262 mg/15 mL 262 mg PO Q4H PRN Indigestion 03/16/23 04/13/25 oral suspension (Stomach Relief) irbesartan 150 mg tablet 150 mg PO DAILY 03/16/23 04/13/25 acetaminophen 500 mg tablet (Pain 1,000 mg PO Q6H PRN Pain 10/24/23 04/13/25 Reliever (acetaminophen)) aspirin 81 mg tablet,delayed 81 mg PO DAILY 10/24/23 04/13/25 release empagliflozin 25 mg tablet 25 mg PO DAILY 10/24/23 04/13/25 (Jardiance) atorvastatin 80 mg tablet 80 mg PO BEDTIME 12/31/23 04/13/25 glucose 4 gram chewable tablet 16 g PO PRN PRN LOW BLOOD SUGAR 12/31/23 04/13/25 ibuprofen 600 mg tablet 600 mg PO TID PRN Pain 12/31/23 04/13/25 promethazine 25 mg tablet 25 mg PO Q6H PRN Nausea And 12/31/23 04/13/25 Vomiting albuterol sulfate 90 mcg/actuation 2 puff inhalation Q4H PRN 08/05/24 04/13/25 aerosol inhaler Shortness Of Breath icosapent ethyl 1 gram capsule 2 g PO BID 08/05/24 04/13/25 (Vascepa) loperamide 2 mg capsule 2 mg PO Q6H PRN Diarrhea 08/05/24 04/13/25 (Anti-Diarrheal (loperamide)) vitamins A,C,J-qgvc-glmhgt 4,296 1 cap PO BID 08/05/24 04/13/25 mcg-226 mg-90 mg capsule (PreserVision AREDS) cetirizine 10 mg tablet 10 mg PO DAILY PRN allergies 10/23/24 04/13/25 neomycin-bacitracn Zn-polymyx 3.5 1 applic topical DAILY PRN Skin 11/27/24 04/13/25 mg-400 unit-5,000 unit/gram top Irritation oint (Triple Antibiotic) cholecalciferol (vitamin D3) 50 50 mcg PO DAILY 02/19/25 04/13/25 mcg (2,000 unit) tablet Previous Rx's ?Medication ?Instructions ?Recorded omeprazole 40 mg capsule,delayed 40 mg PO DAILY #30 caps 04/19/24 release ondansetron 4 mg disintegrating 4 mg PO Q8H PRN nausea and 07/02/24 tablet vomiting #20 tabs menthol 10 % topical cream 1 applic topical TID PRN muscle 09/03/24 (Biofreeze (menthol)) pain #85 grams metoprolol succinate 25 mg 25 mg PO DAILY #90 tabs 11/04/24 tablet,extended release 24 hr glucagon 1 mg solution for See Rx Instructions .Route 12/17/24 injection (Glucagon Emergency Kit) .COMPLEX #1 ea apixaban 5 mg tablet (Eliquis) See Rx Instructions .Route 01/21/25 .COMPLEX #180 tabs pioglitazone 45 mg tablet See Rx Instructions .Route 02/23/25 .COMPLEX #30 tabs insulin lispro 100 unit/mL See Rx Instructions .Route 02/27/25 subcutaneous pen (Humalog KwikPen .COMPLEX #15 mL (U-100) Insulin) metformin 1,000 mg tablet See Rx Instructions .Route 02/27/25 .COMPLEX #31 tabs zonisamide 100 mg capsule See Rx Instructions .Route 03/02/25 .COMPLEX #62 caps cefdinir 300 mg capsule 300 mg PO BID 10 days #20 caps 03/15/25 mupirocin 2 % topical ointment 1 applic topical BID #50 grams 03/15/25 (Centany) aripiprazole 30 mg tablet 15 mg (1/2 x 30 mg) PO BID 30 days 04/14/25 #30 tabs buspirone 10 mg tablet 10 mg PO BID #60 tabs 04/14/25 diazepam 5 mg tablet 5 mg PO TID #90 tabs 04/14/25 divalproex 500 mg tablet,extended 2,000 mg (4 x 500 mg) PO BEDTIME 04/14/25 release 24 hr 30 days #120 tabs venlafaxine 150 mg 300 mg (2 x 150 mg) PO QAM 30 days 04/14/25 capsule,extended release 24 hr #60 caps tirzepatide 12.5 mg/0.5 mL See Rx Instructions .Route 04/20/25 subcutaneous pen injector .COMPLEX #2 mL (Mounjaro) Allergies Allergy/AdvReac Type Severity Reaction Status Date / Time No Known Allergies Allergy Verified 04/13/25 14:49 Review of Systems General: Reports: 10 or more systems reviewed and unremarkable except in HPI and below Const: Denies: fever(s) or chills Eyes: Denies: change in vision or blurry vision ENMT: Denies: throat pain or mouth pain Card: Reports: chest pain; Denies: palpitations Resp: Denies: dyspnea or productive cough GI: Denies: abdominal pain, nausea or vomiting : Denies: flank pain or difficulty urinating Musc: Denies: neck pain or back pain Skin/Breast: Denies: rash or pruritus Neuro: Denies: headache(s) or numbness in extremities Psych: Denies: anxiety, depression, change in appetite or irritability Endo: Denies: polyuria or polydipsia All/Imm: Denies: urticaria or throat swelling PFSH ED PFSH: Medical History Coronary-myocardial bridge Peripheral neuropathy Type 2 diabetes mellitus Hyperlipidemia Hypertension Pulmonary embolism Other reactions to severe stress Bipolar 1 disorder Most recent episode depressed F[facility]ure of [facility] Psychiatric care Surgical History History of appendectomy Social History Smoking and tobacco/nicotine status: unknown if used tobacco/nicotine Alcohol intake: current Alcohol intake frequency: few times a month Substance/Drug Use: never Marital status: Single Physical Exam Const: COMMON NORMALS: no acute distress, average body habitus and patient oriented x3 HENMT: COMMON NORMALS: normocephalic and atraumatic HEAD & SCALP: normocephalic and atraumatic Eye: COMMON NORMALS: Equal, round and reactive pupils present and EOMs intact bilaterally PUPIL: Yes Equal, round and reactive pupils present Neck/C-Spine: COMMON NORMALS: full ROM and no lymphadenopathy Lymph: LYMPHATIC: no lymphadenopathy noted Resp: COMMON NORMALS: normal respiratory effort and clear to auscultation bilaterally AUSCULTATION: clear to auscultation bilaterally Cardio: COMMON NORMALS: regular rate and regular rhythm RATE: regular rate RHYTHM: regular rhythm GI: COMMON NORMALS: Normal to inspection, nondistended, normoactive bowel sounds present, Soft to palpation and non-tender PALPATION: Yes Soft to palpation : COMMON NORMALS: Yes no CVA tenderness BLADDER/KIDNEY EXAM: Yes no CVA tenderness Back/Pelvis: COMMON NORMALS: no CVA tenderness Extremity: COMMON NORMALS: normal to inspection, full ROM and capillary refill normal Neuro: COMMON NORMALS: patient oriented x3 Psych: COMMON NORMALS: mental status grossly normal and Normal thought process present THOUGHT PROCESS: Normal thought process present Skin: COMMON NORMALS: no rashes or lesions noted and no wounds GENERAL SKIN EXAM: no rashes or lesions noted Course Vital Signs: Vital signs: Vital Signs Temperature 97.8 F 04/26/25 22:22 Pulse Rate 92 04/27/25 01:11 Respiratory Rate 12 04/27/25 01:11 Blood Pressure 110/62 04/27/25 01:11 Pulse Oximetry 96 04/27/25 01:11 Oxygen Delivery Me thod Room Air 04/27/25 00:00 MDM - Chest Pain Medical Decision Making Patient is 44-year-old male with history of previous left heart catheterization without obstructive coronary artery disease with myocardial bridging that presented with chest pain after being in the [facility]. Workup is negative for acute coronary syndrome. Workup is consistent with costochondritis given the reproducible chest discomfort. Lidoderm patch was placed on his chest, patient was recommended to take ibuprofen and Tylenol. All of his questions were answered to his satisfaction. Lab Data I reviewed the patient's lab results. 04/26/25 22:10 04/26/25 22:10 Radiology Impressions Chest X-Ray 04/26/25 22:29 IMPRESSION: No acute cardiopulmonary disease. Laboratory Results WBC 6.38 10^3/uL (3.29-11.43) 04/26/25 22:10 RBC 5.78 10^6/uL (3.85-5.65) H 04/26/25 22:10 Hgb 17.10 g/dL (11.27-16.99) H 04/26/25 22:10 Hct 51.3 % (37-53) 04/26/25 22:10 MCV 88.8 fl (82-101) 04/26/25 22:10 MCH 29.6 pg (27-33) 04/26/25 22:10 MCHC 33.3 g/dL (30-55) 04/26/25 22:10 RDW 13.9 % (12.1-15.1) 04/26/25 22:10 Plt Count 236 10^3/cmm (157-399) 04/26/25 22:10 MPV 10.5 fL (7.4-10.4) H 04/26/25 22:10 Neut % (Auto) 44.9 % 04/26/25 22:10 Lymph % (Auto) 45.6 % 04/26/25 22:10 Miller % (Auto) 7.1 % 04/26/25 22:10 Eos % (Auto) 1.6 % 04/26/25 22:10 Baso % (Auto) 0.5 % 04/26/25 22:10 Neut # (Auto) 2.87 10^3/uL (1.8-7.7) 04/26/25 22:10 Lymph # (Auto) 2.9 10^3/uL (0.8-4.8) 04/26/25 22:10 Miller # (Auto) 0.5 10^3/uL (0.2-0.9) 04/26/25 22:10 Eos # (Auto) 0.1 10^3/uL (0.0-0.8) 04/26/25 22:10 Baso # (Auto) 0.0 10^3/uL (0.0-0.1) 04/26/25 22:10 Nucleated RBC % (auto) 0 % 04/26/25 22:10 Nucleated RBCs # 0.0 /100WBC 04/26/25 22:10 Sodium 141 mmol/L (136-145) 04/26/25 22:10 Potassium 4.2 mmol/L (3.5-5.1) 04/26/25 22:10 Chloride 99 mmol/L (98-107) 04/26/25 22:10 Carbon Dioxide 27 mmol/L (22-29) 04/26/25 22:10 Anion Gap 19.2 (5-19) H 04/26/25 22:10 BUN 17 mg/dL (6-20) 04/26/25 22:10 Creatinine 0.8 mg/dL (0.7-1.2) 04/26/25 22:10 GFR Calculation 104.5 mL/min (90-130) 04/26/25 22:10 Glucose 244 mg/dL (65-115) H 04/26/25 22:10 Calculated Osmolality 302 mOsm/kg (285-295) H 04/26/25 22:10 Calcium 9.9 mg/dL (8.5-10.5) 04/26/25 22:10 Total Bilirubin 0.4 mg/dL (0.15-1.2) 04/26/25 22:10 AST 14 U/L (0-40) 04/26/25 22:10 ALT 20 U/L (0-41) 04/26/25 22:10 Alkaline Phosphatase 83 U/L (40-130) 04/26/25 22:10 Creatine Kinase 86 U/L (39-308) 04/26/25 22:35 Troponin T Baseline 8 ng/L (0-15) 04/26/25 22:10 Troponin T 120 Minute 7.23 ng/L (0-15) 04/27/25 00:17 Delta Troponin T -0.77 ABS# (0-10) L 04/27/25 00:17 NT-Pro-B Natriuret Pep < 36 pg/mL (0-125) 04/26/25 22:10 Total Protein 6.9 g/dL (6.6-8.7) 04/26/25 22:10 Albumin 4.6 g/dL (3.5-5.2) 04/26/25 22:10 Globulin 2.3 g/dL (1.3-4.6) 04/26/25 22:10 Lipase 22 U/L (13-60) 04/26/25 22:35 All radiology interpretation(s) finalized by discharge EKG Data EKG 1: Interpretation: Normal sinus rhythm, no ST segment elevation Discharge Plan Discharge Patient Disposition: Home Clinical Impression: Costalchondritis Condition: Stable Prescriptions: No Action gabapentin [Neurontin] 300 mg capsule 300 mg PO BID omeprazole 40 mg capsule,delayed release(DR/EC) 40 mg PO DAILY Qty: 30 0RF loperamide [Anti-Diarrheal (loperamide)] 2 mg capsule 2 mg PO Q6H PRN (Reason: Diarrhea) albuterol sulfate 90 mcg/actuation HFA aerosol inhaler 2 puff inhalation Q4H PRN (Reason: Shortness Of Breath) icosapent ethyl [Vascepa] 1 gram capsule 2 g PO BID PreserVision AREDS 4,296 mcg-226 mg-90 mg capsule 1 cap PO BID Triple Antibiotic 3.5mg-400 unit- 5,000 unit/gram ointment 1 applic topical DAILY PRN (Reason: Skin Irritation) cholecalciferol (vitamin D3) 50 mcg (2,000 unit) tablet 50 mcg PO DAILY mupirocin [Centany] 2 % ointment 1 applic topical BID Qty: 50 0RF cefdinir 300 mg capsule 300 mg PO BID 10 Days Qty: 20 0RF aripiprazole 30 mg tablet 15 mg PO BID 30 Days Qty: 30 1RF Rx Instructions: Take one-half tablet twice a day buspirone 10 mg tablet 10 mg PO BID Qty: 60 1RF Rx Instructions: Take one tablet twice a day, between doses of diazepam divalproex 500 mg tablet extended release 24 hr 2,000 mg PO BEDTIME 30 Days Qty: 120 1RF venlafaxine 150 mg capsule,extended release 24hr 300 mg PO QAM 30 Days Qty: 60 1RF diazepam 5 mg tablet 5 mg PO TID Qty: 90 1RF ondansetron 4 mg tablet,disintegrating 4 mg PO Q8H PRN (Reason: nausea and vomiting) Qty: 20 0RF metoprolol succinate 25 mg tablet extended release 24 hr 25 mg PO DAILY Qty: 90 3RF Glucagon Emergency Kit (human) 1 mg recon soln See Rx Instructions .ROUTE .COMPLEX Qty: 1 0RF Dose Instruction: inject 1mg SUBCUTANEOUSLY EVERY 20 MINUTES NEEDED FOR hypoglycemia UNTIL target blood sugar attained Rx Instructions: inject 1mg SUBCUTANEOUSLY EVERY 20 MINUTES NEEDED FOR hypoglycemia UNTIL target blood sugar attained Eliquis 5 mg tablet See Rx Instructions .ROUTE .COMPLEX Qty: 180 3RF Dose Instruction: TAKE 1 TABLET BY MOUTH TWICE DAILY Rx Instructions: TAKE 1 TABLET BY MOUTH TWICE DAILY pioglitazone 45 mg tablet See Rx Instructions .ROUTE .COMPLEX Qty: 30 3RF Dose Instruction: TAKE 1 TABLET BY MOUTH ONCE DAILY Rx Instructions: TAKE 1 TABLET BY MOUTH ONCE DAILY insulin lispro [Humalog KwikPen Insulin] 100 unit/mL insulin pen See Rx Instructions .ROUTE .COMPLEX Qty: 15 2RF Dose Instruction: WAITING FOR SCRIPT FOR DIRECTIONS Rx Instructions: WAITING FOR SCRIPT FOR DIRECTIONS metformin 1,000 mg tablet See Rx Instructions .ROUTE .COMPLEX Qty: 31 2RF Dose Instruction: TAKE 1 TABLET BY MOUTH ONCE DAILY Rx Instructions: TAKE 1 TABLET BY MOUTH ONCE DAILY zonisamide 100 mg capsule See Rx Instructions .ROUTE .COMPLEX Qty: 62 2RF Dose Instruction: TAKE 2 CAPSULES (200MG) BY MOUTH ONCE DAILY Rx Instructions: TAKE 2 CAPSULES (200MG) BY MOUTH ONCE DAILY Mounjaro 12.5 mg/0.5 mL pen injector See Rx Instructions .ROUTE .COMPLEX Qty: 2 5RF Dose Instruction: INJECT 12.5MG SUBCUTANEOUSLY EVERY 7 DAYS ON SUNDAY Rx Instructions: INJECT 12.5MG SUBCUTANEOUSLY EVERY 7 DAYS ON SUNDAY aspirin 81 mg tablet,delayed release (DR/EC) 81 mg PO DAILY acetaminophen [Pain Reliever (acetaminophen)] 500 mg tablet 1,000 mg PO Q6H PRN (Reason: Pain) Jardiance 25 mg tablet 25 mg PO DAILY Biofreeze (menthol) 10 % cream 1 applic topical TID PRN (Reason: muscle pain) Qty: 85 0RF bismuth subsalicylate [Stomach Relief] 262 mg/15 mL suspension 262 mg PO Q4H PRN (Reason: Indigestion) irbesartan 150 mg tablet 150 mg PO DAILY atorvastatin 80 mg tablet 80 mg PO BEDTIME promethazine 25 mg tablet 25 mg PO Q6H PRN (Reason: Nausea And Vomiting) glucose 4 gram Tablet,Chewable 16 g PO PRN PRN (Reason: LOW BLOOD SUGAR) Rx Instructions: for bs lower than 60 ibuprofen 600 mg tablet 600 mg PO TID PRN (Reason: Pain) cetirizine 10 mg Tablet 10 mg PO DAILY PRN (Reason: allergies) Discharge Orders: Discharge ED (Routine); Ordered 04/27/25 Ordered By: Kalina Montes Referrals: Bautista Ruiz MD [Primary Care Provider, [facility]] Discharge Diet: Usual diet Discharge Activity: Resume usual activity Patient Instructions: Costochondritis (ED) Activity Restrictions/Additional Instructions: You have inflammation of your chest wall. Ibuprofen and Tylenol are the best way to relieve this as well as a topical patch such as lidocaine. Return to ED for acute issues. Follow-up with your primary care physician regarding this visit today. Print Language: Mozambican Coding Level of Care Code ED [employer] for Dasha Nix
[2025-04-27] VITALS: BP 108/56; PULSE 91; RESP 12; O2SAT 92
--- NOTE | 2025-04-27 00:29 | ECG_ITS ---
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 Measurements Intervals [place] Rate: 84 P: 15 MA: 211 QRS: -5 QRSD: 122 T: 28 QT: 354 QTc: 419 Interpretive Statements SINUS RHYTHM WITH SINUS ARRHYTHMIA WITH FIRST DEGREE AV BLOCK SEPTAL MYOCARDIAL INFARCTION , OF INDETERMINATE AGE [40+ ms Q WAVE IN V1/V2] Compared to ECG 04/26/2025 22:32:08 First degree AV block now present Sinus tachycardia no longer present Myocardial infarct finding still present Electronically Signed On 04-28-2025 17:51:43 CDT by Skinny Talbert M.D. [email or web address]
[2025-04-27 00:42] LABS: Troponin 5 2HR 7.23 ng/L (0-15)
[2025-04-27 00:44] LABS: Troponin 5 2HR Delta -0.77 ABS# (0-10)
[2025-04-27 01:11] VITALS: BP 110/62; PULSE 92; RESP 12; O2SAT 96
== END 2025-04-27 01:14 | disposition home or self-care (01) ==
PROVIDERS: Emergency Medicine; Emergency Provider Physician Assistant; PCP Family Medicine
DX: M94.0 Chondrocostal junction syndrome [Tietze] (principal); Z79.01 Long term (current) use of anticoagulants; Z79.4 Long term (current) use of insulin; Z79.84 Long term (current) use of oral hypoglycemic drugs; Z79.82 Long term (current) use of aspirin; E78.5 Hyperlipidemia, unspecified; I10 Essential (primary) hypertension; E11.42 Type 2 diabetes mellitus with diabetic polyneuropathy
CPT/HCPCS: 36415; 71045; 80048; 80053; 82550; 83690; 83880; 84484; 85025; 93005; 99283; J9999

== ENCOUNTER 2025-04-27 21:47 | Emergency (ER) | payer OTHER, MEDICAID, SELFPAY ==
--- NOTE | 2025-04-27 21:59 | XRR_ITS ---
PROCEDURE INFORMATION: Exam: XR Chest Exam date and time: 04/27/2025 10:05 PM Age: 44 years old Clinical indication: Pain; Chest pressure; Additional info: Shest pain TECHNIQUE: Imaging protocol: Radiologic exam of the chest. Views: 1 view. COMPARISON: CR (CHEST, ) 04/26/2025 10:30 PM FINDINGS: Lungs: Unremarkable. No consolidation. Pleural spaces: Unremarkable. No pleural effusion. No pneumothorax. Heart/Mediastinum: Unremarkable. No cardiomegaly. Bones/joints: Unremarkable. XR/XR chest 1V portable [id number] IMPRESSION: No acute findings.
--- NOTE | 2025-04-27 22:00 | ECG_ITS ---
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 Measurements Intervals [place] Rate: 110 P: 53 [place]: 196 QRS: -40 QRSD: 90 T: 29 QT: 293 QTc: 396 Interpretive Statements SINUS TACHYCARDIA WITH OCCASIONAL SUPRAVENTRICULAR PREMATURE COMPLEXES LEFT AXIS DEVIATION [QRS AXIS < -30] ANTEROSEPTAL MYOCARDIAL INFARCTION , OF INDETERMINATE AGE [40+ ms Q WAVE IN V1-V4] Compared to ECG 04/27/2025 00:34:18 Left-axis deviation now present Sinus rhythm no longer present Sinus arrhythmia no longer present First degree AV block no longer present Myocardial infarct finding still present Electronically Signed On 04-28-2025 17:12:16 CDT by Skinny Talbert M.D. [id number]
[2025-04-27 22:01] VITALS: BP 121/74; PULSE 102; RESP 20; TEMP 36.3; O2SAT 96
[2025-04-27 22:05] LABS: Basophils % 0.3 %; Eosinophils # 0.1 10^3/uL (0.0-0.8); Hematocrit 50.3 % (37-53); Lymphocytes # 2.5 10^3/uL (0.8-4.8); Lymphocytes % 41.5 %; Mean Corpuscular Hemoglobin 29.4 pg (27-33); Mean Corpuscular Volume 89.2 fl (82-101); Mean Platelet Volume 10.2 fL (7.4-10.4); Monocytes # 0.5 10^3/uL (0.2-0.9); Neutrophils # 2.96 10^3/uL (1.8-7.7); Neutrophils % 48.7 %; Nucleated Red Blood Cells % 0 %; Platelet Count 218 10^3/cmm (157-399); Red Blood Count 5.64 10^6/uL (3.85-5.65); Red Cell Distribution Width 13.9 % (12.1-15.1); White Blood Count 6.09 10^3/uL (3.29-11.43)
--- NOTE | 2025-04-27 22:12 | W.ED.CHESTPA ---
HPI - Chest Pain General: Chief Complaint: Chest Pain Stated Complaint: CHEST PAIN Time Seen by Provider: 04/27/25 21:51 History of Present Illness: Patient is 44-year-old gentleman returns to ED with central sternal chest pain and epigastric discomfort. He was diagnosed with costochondritis yesterday, however he refuses ibuprofen today according to home staff. Patient denies any nausea, vomiting, shortness of breath. He had a full cardiac workup yesterday. He has a history of LHC with myocardial bridging however no ischemic CAD Associated symptoms: Reports abdominal pain and nausea; Deny dyspnea, fever(s), palpitations or vomiting Related Data Home Medications ?Medication ?Instructions ?Recorded ?Confirmed gabapentin 300 mg capsule 300 mg PO BID 10/11/22 04/13/25 (Neurontin) bismuth subsalicylate 262 mg/15 mL 262 mg PO Q4H PRN Indigestion 03/16/23 04/13/25 oral suspension (Stomach Relief) irbesartan 150 mg tablet 150 mg PO DAILY 03/16/23 04/13/25 acetaminophen 500 mg tablet (Pain 1,000 mg PO Q6H PRN Pain 10/24/23 04/13/25 Reliever (acetaminophen)) aspirin 81 mg tablet,delayed 81 mg PO DAILY 10/24/23 04/13/25 release empagliflozin 25 mg tablet 25 mg PO DAILY 10/24/23 04/13/25 (Jardiance) atorvastatin 80 mg tablet 80 mg PO BEDTIME 12/31/23 04/13/25 glucose 4 gram chewable tablet 16 g PO PRN PRN LOW BLOOD SUGAR 12/31/23 04/13/25 ibuprofen 600 mg tablet 600 mg PO TID PRN Pain 12/31/23 04/13/25 promethazine 25 mg tablet 25 mg PO Q6H PRN Nausea And 12/31/23 04/13/25 Vomiting albuterol sulfate 90 mcg/actuation 2 puff inhalation Q4H PRN 08/05/24 04/13/25 aerosol inhaler Shortness Of Breath icosapent ethyl 1 gram capsule 2 g PO BID 08/05/24 04/13/25 (Vascepa) loperamide 2 mg capsule 2 mg PO Q6H PRN Diarrhea 08/05/24 04/13/25 (Anti-Diarrheal (loperamide)) vitamins A,C,S-gjpd-otuxlu 4,296 1 cap PO BID 08/05/24 04/13/25 mcg-226 mg-90 mg capsule (PreserVision AREDS) cetirizine 10 mg tablet 10 mg PO DAILY PRN allergies 10/23/24 04/13/25 neomycin-bacitracn Zn-polymyx 3.5 1 applic topical DAILY PRN Skin 11/27/24 04/13/25 mg-400 unit-5,000 unit/gram top Irritation oint (Triple Antibiotic) cholecalciferol (vitamin D3) 50 50 mcg PO DAILY 02/19/25 04/13/25 mcg (2,000 unit) tablet Previous Rx's ?Medication ?Instructions ?Recorded omeprazole 40 mg capsule,delayed 40 mg PO DAILY #30 caps 04/19/24 release ondansetron 4 mg disintegrating 4 mg PO Q8H PRN nausea and 07/02/24 tablet vomiting #20 tabs menthol 10 % topical cream 1 applic topical TID PRN muscle 09/03/24 (Biofreeze (menthol)) pain #85 grams metoprolol succinate 25 mg 25 mg PO DAILY #90 tabs 11/04/24 tablet,extended release 24 hr glucagon 1 mg solution for See Rx Instructions .Route 12/17/24 injection (Glucagon Emergency Kit) .COMPLEX #1 ea apixaban 5 mg tablet (Eliquis) See Rx Instructions .Route 01/21/25 .COMPLEX #180 tabs pioglitazone 45 mg tablet See Rx Instructions .Route 02/23/25 .COMPLEX #30 tabs insulin lispro 100 unit/mL See Rx Instructions .Route 02/27/25 subcutaneous pen (Humalog KwikPen .COMPLEX #15 mL (U-100) Insulin) metformin 1,000 mg tablet See Rx Instructions .Route 02/27/25 .COMPLEX #31 tabs zonisamide 100 mg capsule See Rx Instructions .Route 03/02/25 .COMPLEX #62 caps cefdinir 300 mg capsule 300 mg PO BID 10 days #20 caps 03/15/25 mupirocin 2 % topical ointment 1 applic topical BID #50 grams 03/15/25 (Centany) aripiprazole 30 mg tablet 15 mg (1/2 x 30 mg) PO BID 30 days 04/14/25 #30 tabs buspirone 10 mg tablet 10 mg PO BID #60 tabs 04/14/25 diazepam 5 mg tablet 5 mg PO TID #90 tabs 04/14/25 divalproex 500 mg tablet,extended 2,000 mg (4 x 500 mg) PO BEDTIME 04/14/25 release 24 hr 30 days #120 tabs venlafaxine 150 mg 300 mg (2 x 150 mg) PO QAM 30 days 04/14/25 capsule,extended release 24 hr #60 caps tirzepatide 12.5 mg/0.5 mL See Rx Instructions .Route 04/20/25 subcutaneous pen injector .COMPLEX #2 mL (Mounjaro) diclofenac sodium 50 mg 50 mg PO BID #15 tabs 04/27/25 tablet,delayed release Allergies Allergy/AdvReac Type Severity Reaction Status Date / Time No Known Allergies Allergy Verified 04/27/25 22:05 Review of Systems Const: Denies: fever(s) or chills Eyes: Denies: change in vision or blurry vision Card: Reports: chest pain; Denies: palpitations Resp: Denies: dyspnea or productive cough GI: Reports: abdominal pain and nausea; Denies: vomiting : Denies: flank pain or difficulty urinating Musc: Denies: neck pain or back pain Skin/Breast: Denies: rash or pruritus Neuro: Denies: headache(s) or numbness in extremities Psych: Denies: anxiety or depression Endo: Denies: polyuria or polydipsia PFS ED PFSH: Medical History Coronary-myocardial bridge Peripheral neuropathy Type 2 diabetes mellitus Hyperlipidemia Hypertension Pulmonary embolism Other reactions to severe stress Bipolar 1 disorder Most recent episode depressed Fracture of [facility] Surgical History History of appendectomy Social History Smoking and tobacco/nicotine status: unknown if used tobacco/nicotine Alcohol intake: current Alcohol intake frequency: few times a month Substance/Drug Use: never Marital status: Single Physical Exam Const: COMMON NORMALS: no acute distress, average body habitus and patient oriented x3 HENMT: COMMON NORMALS: normocephalic and atraumatic HEAD & SCALP: normocephalic and atraumatic Eye: COMMON NORMALS: Equal, round and reactive pupils present and EOMs intact bilaterally PUPIL: Yes Equal, round and reactive pupils present Lymph: LYMPHATIC: no lymphadenopathy noted Chest: COMMONS NORMALS: normal inspection of the chest and normal palpation of entire chest wall Resp: COMMON NORMALS: normal respiratory effort, No retractions and clear to auscultation bilaterally AUSCULTATION: clear to auscultation bilaterally Cardio: COMMON NORMALS: regular rate and regular rhythm RATE: regular rate RHYTHM: regular rhythm GI: COMMON NORMALS: Normal to inspection, nondistended, normoactive bowel sounds present, Soft to palpation and non-tender PALPATION: Yes Soft to palpation : COMMON NORMALS: Yes no CVA tenderness BLADDER/KIDNEY EXAM: Yes no CVA tenderness MALE GROIN/PERINEUM EXAM: No inguinal lymphadenopathy Back/Pelvis: COMMON NORMALS: no CVA tenderness Extremity: COMMON NORMALS: normal to inspection and full ROM Neuro: COMMON NORMALS: patient oriented x3 Psych: COMMON NORMALS: cooperative, normal affect and speech normal ATTITUDE: Yes calm ACTIVITY/MOTOR BEHAVIOR: Yes appropriate eye contact SPEECH: Yes normal speech Course Vital Signs: Vital signs: Vital Signs Temperature 97.3 F L 04/27/25 22:01 Pulse Rate 88 04/28/25 00:36 Respiratory Rate 14 04/27/25 22:38 Blood Pressure 143/87 04/28/25 00:36 Pulse Oximetry 98 04/28/25 00:36 Oxygen Delivery Me thod Room Air 04/27/25 22:38 MDM - Chest Pain Medical Decision Making Patient is 44-year-old gentleman that returns with chest pain. He would not partake in the treatment with ibuprofen. He now complains of abdominal discomfort to. On exam this is benign. Patient rates his pain as 7 although is nonverbal score 0. He is falling asleep when checked on for reevaluation. At this juncture I feel this is malingering. Patient has been ruled out x 2. Certainly, it would be difficult to discourage chest discomfort in a 44-year-old gentleman from coming to the hospital. He does have a history of myocardial bridging. It is fair for him to follow-up with his primary shoe laster, Dr. Shepard outpatient. Will advise patient. If he has further chest pain, acutely, he can come back to the ER at that juncture. Lab Data 04/27/25 21:38 04/27/25 21:38 Radiology Impressions Chest X-Ray 04/27/25 21:59 IMPRESSION: No acute findings. Laboratory Results WBC 6.09 10^3/uL (3.29-11.43) 04/27/25 21:38 RBC 5.64 10^6/uL (3.85-5.65) 04/27/25 21:38 Hgb 16.60 g/dL (11.27-16.99) 04/27/25 21:38 Hct 50.3 % (37-53) 04/27/25 21:38 MCV 89.2 fl (82-101) 04/27/25 21:38 MCH 29.4 pg (27-33) 04/27/25 21:38 MCHC 33.0 g/dL (30-55) 04/27/25 21:38 RDW 13.9 % (12.1-15.1) 04/27/25 21:38 Plt Count 218 10^3/cmm (157-399) 04/27/25 21:38 MPV 10.2 fL (7.4-10.4) 04/27/25 21:38 Neut % (Auto) 48.7 % 04/27/25 21:38 Lymph % (Auto) 41.5 % 04/27/25 21:38 [place] % (Auto) 8.0 % 04/27/25 21:38 Eos % (Auto) 1.0 % 04/27/25 21:38 Baso % (Auto) 0.3 % 04/27/25 21:38 Neut # (Auto) 2.96 10^3/uL (1.8-7.7) 04/27/25 21:38 Lymph # (Auto) 2.5 10^3/uL (0.8-4.8) 04/27/25 21:38 [place] # (Auto) 0.5 10^3/uL (0.2-0.9) 04/27/25 21:38 Eos # (Auto) 0.1 10^3/uL (0.0-0.8) 04/27/25 21:38 Baso # (Auto) 0.0 10^3/uL (0.0-0.1) 04/27/25 21:38 Nucleated RBC % (auto) 0 % 04/27/25 21:38 Nucleated RBCs # 0.0 /100WBC 04/27/25 21:38 Sodium 138 mmol/L (136-145) 04/27/25 21:38 Potassium 3.9 mmol/L (3.5-5.1) 04/27/25 21:38 Chloride 98 mmol/L (98-107) 04/27/25 21:38 Carbon Dioxide 28 mmol/L (22-29) 04/27/25 21:38 Anion Gap 15.9 (5-19) 04/27/25 21:38 BUN 21 mg/dL (6-20) H 04/27/25 21:38 Creatinine 0.9 mg/dL (0.7-1.2) 04/27/25 21:38 GFR Calculation 91.3 mL/min (90-130) 04/27/25 21:38 Glucose 179 mg/dL (65-115) H 04/27/25 21:38 Calculated Osmolality 293 mOsm/kg (285-295) 04/27/25 21:38 Calcium 9.7 mg/dL (8.5-10.5) 04/27/25 21:38 Total Bilirubin 0.3 mg/dL (0.15-1.2) 04/27/25 21:38 AST 14 U/L (0-40) 04/27/25 21:38 ALT 19 U/L (0-41) 04/27/25 21:38 Alkaline Phosphatase 88 U/L (40-130) 04/27/25 21:38 Troponin T Baseline 8 ng/L (0-15) 04/27/25 21:38 Troponin T 120 Minute 6.86 ng/L (0-15) 04/27/25 23:50 Delta Troponin T -1.14 ABS# (0-10) L 04/27/25 23:50 NT-Pro-B Natriuret Pep < 36 pg/mL (0-125) 04/27/25 21:38 Total Protein 6.6 g/dL (6.6-8.7) 04/27/25 21:38 Albumin 4.3 g/dL (3.5-5.2) 04/27/25 21:38 Globulin 2.3 g/dL (1.3-4.6) 04/27/25 21:38 Lipase 28 U/L (13-60) 04/27/25 21:38 XR interpretation done by ED provider, pending radiology final review ED provider radiology interpretation(s): no acute EKG Data EKG 1: I personally reviewed and interpreted this EKG as follows: Interpretation: sinus rhythm EKG 2: I personally reviewed and interpreted this EKG as follows: Interpretation: Sinus tachycardia with rate of 101, normal axis, no ST segment elevation, good R wave progression, QTc is 384 ms Discharge Plan Discharge Patient Disposition: Home Clinical Impression: Costalchondritis, Esophageal spasm, Malingering Condition: Stable Prescriptions: New diclofenac sodium 50 mg tablet,delayed release (DR/EC) 50 mg PO BID Qty: 15 0RF No Action gabapentin [Neurontin] 300 mg capsule 300 mg PO BID omeprazole 40 mg capsule,delayed release(DR/EC) 40 mg PO DAILY Qty: 30 0RF loperamide [Anti-Diarrheal (loperamide)] 2 mg capsule 2 mg PO Q6H PRN (Reason: Diarrhea) albuterol sulfate 90 mcg/actuation HFA aerosol inhaler 2 puff inhalation Q4H PRN (Reason: Shortness Of Breath) icosapent ethyl [Vascepa] 1 gram capsule 2 g PO BID PreserVision AREDS 4,296 mcg-226 mg-90 mg capsule 1 cap PO BID Triple Antibiotic 3.5mg-400 unit- 5,000 unit/gram ointment 1 applic topical DAILY PRN (Reason: Skin Irritation) cholecalciferol (vitamin D3) 50 mcg (2,000 unit) tablet 50 mcg PO DAILY mupirocin [Centany] 2 % ointment 1 applic topical BID Qty: 50 0RF cefdinir 300 mg capsule 300 mg PO BID 10 Days Qty: 20 0RF aripiprazole 30 mg tablet 15 mg PO BID 30 Days Qty: 30 1RF Rx Instructions: Take one-half tablet twice a day buspirone 10 mg tablet 10 mg PO BID Qty: 60 1RF Rx Instructions: Take one tablet twice a day, between doses of diazepam divalproex 500 mg tablet extended release 24 hr 2,000 mg PO BEDTIME 30 Days Qty: 120 1RF venlafaxine 150 mg capsule,extended release 24hr 300 mg PO QAM 30 Days Qty: 60 1RF diazepam 5 mg tablet 5 mg PO TID Qty: 90 1RF ondansetron 4 mg tablet,disintegrating 4 mg PO Q8H PRN (Reason: nausea and vomiting) Qty: 20 0RF metoprolol succinate 25 mg tablet extended release 24 hr 25 mg PO DAILY Qty: 90 3RF Glucagon Emergency Kit (human) 1 mg recon soln See Rx Instructions .ROUTE .COMPLEX Qty: 1 0RF Dose Instruction: inject 1mg SUBCUTANEOUSLY EVERY 20 MINUTES NEEDED FOR hypoglycemia UNTIL target blood sugar attained Rx Instructions: inject 1mg SUBCUTANEOUSLY EVERY 20 MINUTES NEEDED FOR hypoglycemia UNTIL target blood sugar attained Eliquis 5 mg tablet See Rx Instructions .ROUTE .COMPLEX Qty: 180 3RF Dose Instruction: TAKE 1 TABLET BY MOUTH TWICE DAILY Rx Instructions: TAKE 1 TABLET BY MOUTH TWICE DAILY pioglitazone 45 mg tablet See Rx Instructions .ROUTE .COMPLEX Qty: 30 3RF Dose Instruction: TAKE 1 TABLET BY MOUTH ONCE DAILY Rx Instructions: TAKE 1 TABLET BY MOUTH ONCE DAILY insulin lispro [Humalog KwikPen Insulin] 100 unit/mL insulin pen See Rx Instructions .ROUTE .COMPLEX Qty: 15 2RF Dose Instruction: WAITING FOR SCRIPT FOR DIRECTIONS Rx Instructions: WAITING FOR SCRIPT FOR DIRECTIONS metformin 1,000 mg tablet See Rx Instructions .ROUTE .COMPLEX Qty: 31 2RF Dose Instruction: TAKE 1 TABLET BY MOUTH ONCE DAILY Rx Instructions: TAKE 1 TABLET BY MOUTH ONCE DAILY zonisamide 100 mg capsule See Rx Instructions .ROUTE .COMPLEX Qty: 62 2RF Dose Instruction: TAKE 2 CAPSULES (200MG) BY MOUTH ONCE DAILY Rx Instructions: TAKE 2 CAPSULES (200MG) BY MOUTH ONCE DAILY Mounjaro 12.5 mg/0.5 mL pen injector See Rx Instructions .ROUTE .COMPLEX Qty: 2 5RF Dose Instruction: INJECT 12.5MG SUBCUTANEOUSLY EVERY 7 DAYS ON SUNDAY Rx Instructions: INJECT 12.5MG SUBCUTANEOUSLY EVERY 7 DAYS ON SUNDAY aspirin 81 mg tablet,delayed release (DR/EC) 81 mg PO DAILY acetaminophen [Pain Reliever (acetaminophen)] 500 mg tablet 1,000 mg PO Q6H PRN (Reason: Pain) Jardiance 25 mg tablet 25 mg PO DAILY Biofreeze (menthol) 10 % cream 1 applic topical TID PRN (Reason: muscle pain) Qty: 85 0RF bismuth subsalicylate [Stomach Relief] 262 mg/15 mL suspension 262 mg PO Q4H PRN (Reason: Indigestion) irbesartan 150 mg tablet 150 mg PO DAILY atorvastatin 80 mg tablet 80 mg PO BEDTIME promethazine 25 mg tablet 25 mg PO Q6H PRN (Reason: Nausea And Vomiting) glucose 4 gram Tablet,Chewable 16 g PO PRN PRN (Reason: LOW BLOOD SUGAR) Rx Instructions: for bs lower than 60 ibuprofen 600 mg tablet 600 mg PO TID PRN (Reason: Pain) cetirizine 10 mg Tablet 10 mg PO DAILY PRN (Reason: allergies) Discharge Orders: Discharge ED (Routine); Ordered 04/28/25 Ordered By: Kalina Montes Referrals: Bautista Ruiz MD [Primary Care Provider, Family Practice] Belkys Martienz MD [Physician, Cardiology] Discharge Diet: Low Salt Discharge Activity: Resume usual activity Patient Instructions: Chest Pain (ED) Activity Restrictions/Additional Instructions: Follow up with your shoe laster, Dr. Martinez I ordered prescription diclofenac instead of ibuprofen. This has been sent to your pharmacy. Print Language: Citizen Of [place] Coding Level of Care Code ED [employer] System Administrator for Dasha Nix
[2025-04-27 22:21] LABS: Troponin(5th) Baseline 8 ng/L (0-15)
[2025-04-27 22:35] VITALS: RESP 18
[2025-04-27] MEDS: morphine 4 mg/mL SDV 1 mL 2 MG IVP (22:35)
[2025-04-27] MEDS: lidocaine 2% viscous 15 ML, aluminum-mag hydrox-simethicon 30 ML, sucralfate oral liq 1 GM PO (22:36)
[2025-04-27 22:38] VITALS: BP 123/74; PULSE 112; RESP 14; O2SAT 97
[2025-04-27 22:41] LABS: Alanine Aminotransferase 19 U/L (0-41); Albumin Level 4.3 g/dL (3.5-5.2); Alkaline Phosphatase 88 U/L (40-130); Anion Gap 15.9 (5-19); Aspartate Amino Transferase 14 U/L (0-40); Blood Urea Nitrogen 21 mg/dL (6-20); Calcium 9.7 mg/dL (8.5-10.5); Carbon Dioxide 28 mmol/L (22-29); Chloride 98 mmol/L (98-107); Creatinine Clr Calc Pharmacy 132.7912; Globulin 2.3 g/dL (1.3-4.6); Glomerular Filtration Rate 91.3 mL/min (90-130); Glucose 179 mg/dL (65-115); Lipase 28 U/L (13-60); NT Pro B Type Natriuretic Pept < 36 pg/mL (0-125); Osmolality Calculated 293 mOsm/kg (285-295); Potassium 3.9 mmol/L (3.5-5.1); Sodium 138 mmol/L (136-145); Total Bilirubin 0.3 mg/dL (0.15-1.2); Total Protein 6.6 g/dL (6.6-8.7)
--- NOTE | 2025-04-28 | ECG_ITS ---
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 Measurements Intervals [place] Rate: 101 P: 61 MA: 193 QRS: 15 QRSD: 104 T: 43 QT: 326 QTc: 423 Interpretive Statements SINUS TACHYCARDIA SEPTAL MYOCARDIAL INFARCTION , OF INDETERMINATE AGE [40+ ms Q WAVE IN V1/V2] Compared to ECG 04/27/2025 21:50:50 Left-axis deviation no longer present Myocardial infarct finding still present Electronically Signed On 04-28-2025 17:45:39 CDT by Skinny Talbert M.D. [email or web address]
[2025-04-28 00:11] LABS: Troponin 5 2HR 6.86 ng/L (0-15)
[2025-04-28 00:12] LABS: Troponin 5 2HR Delta -1.14 ABS# (0-10)
[2025-04-28 00:36] VITALS: BP 143/87; PULSE 88; O2SAT 98
== END 2025-04-28 00:38 | disposition home or self-care (01) ==
PROVIDERS: Emergency Provider Physician Assistant; PCP Family Medicine
DX: M94.0 Chondrocostal junction syndrome [Tietze] (principal); K22.4 Dyskinesia of esophagus; Z76.5 Malingerer [conscious simulation]; Z79.01 Long term (current) use of anticoagulants; Z79.4 Long term (current) use of insulin; Z79.82 Long term (current) use of aspirin; E78.5 Hyperlipidemia, unspecified; I10 Essential (primary) hypertension; E11.40 Type 2 diabetes mellitus with diabetic neuropathy, unspecified
CPT/HCPCS: 71045; 80053; 83690; 83880; 84484; 85025; 93005; 96374; 99285; J2270; J9999

== ENCOUNTER → 2025-05-21 14:47 | Outpatient (BNVA) | payer OTHER, MEDICAID, SELFPAY | PROVIDERS: PCP Family Medicine; Visit Provider Nurse Practitioner Family | DX: R07.9 Chest pain, unspecified (principal); R00.0 Tachycardia, unspecified; Z09 Encounter for follow-up examination after completed treatment for conditions other than malignant neoplasm; I10 Essential (primary) hypertension; E11.69 Type 2 diabetes mellitus with other specified complication; Z79.84 Long term (current) use of oral hypoglycemic drugs; G62.9 Polyneuropathy, unspecified; E78.5 Hyperlipidemia, unspecified; Z79.01 Long term (current) use of anticoagulants; Z79.82 Long term (current) use of aspirin; F17.290 Nicotine dependence, other tobacco product, uncomplicated; Z86.711 Personal history of pulmonary embolism | CPT/HCPCS: 93005; 99214 ==

== ENCOUNTER → 2025-06-02 13:46 | Outpatient (BNVA) | payer MEDICARE, SELFPAY | PROVIDERS: PCP Family Medicine; Visit Provider Specialist | DX: R29.6 Repeated falls (principal); R26.9 Unspecified abnormalities of gait and mobility; E11.9 Type 2 diabetes mellitus without complications; Z79.4 Long term (current) use of insulin | CPT/HCPCS: 99214 ==

== ENCOUNTER 2025-06-04 07:16 | Outpatient (CLI) | payer OTHER, MEDICAID, SELFPAY ==
--- NOTE | 2025-06-04 | ECG_ITS ---
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 Interpretive Statements LEXISCAN SESTAMIBI STRESS TEST Procedure: At the baseline, the blood pressure was 130/72 mmHg with a heart rate of 81 bpm. The electrocardiogram showed normal sinus rhythm, normal axis with poor R wave progression and minor nonspecific ST-T wave abnormality. The Lexiscan was infused over a period of 20 seconds. A total of 0.4 mg of Lexiscan was infused. The stress phase was continued for a total of 5 minutes. Heart rate was at the end of stress phase was 85 bpm and a blood pressure of 133/71 mmHg. The EKG at the peak infusion revealed normal sinus rhythm with no significant ST-T wave changes. Sestamibi was injected 20 seconds after the Lexiscan infusion. Blood pressure at the end of recovery phase was 137/68 mmHg with a heart rate of 87 bpm. Conclusion: 1. Normal EKG response to Lexiscan infusion 2. No Lexiscan induced chest pain or cardiac arrhythmia. 3. Normal blood pressure and heart rate response. 4. Nuclear myocardial perfusion scan pending; see separate report. Electronically Signed On 06-07-2025 11:40:58 CDT by Hakan Jaimes M.D. [email or web address]
[2025-06-04 07:53] VITALS: BMI 29.0
--- NOTE | 2025-06-04 07:56 | NMCV_ITS ---
NM richard perf SPECT r/s* [id number] Zaire Nassar Age: 44 Gender: M : 1980 Exam Date: 06/04/2025 08:19 Ordering Phys: Iliana Crespo NP Technologist: GLORIA Andrade Exam Location: [facility] Indications: cp STRESS TEST Please see separate stress test report in [facility] for full findings IMAGE PROTOCOL Rest/Stress 1 Lexiscan Day Radiopharmaceutical Dose (mCi) Administration Site Administered by Rest: Tc-99m 10.6 IV GLORIA Rogel Sestamibi Stress:Tc-99m 33 IV GLORIA Andrade Sestamijoshua Rest: 04-Jun-2025 60 Discovery 630 Stress: 04-Jun-2025 30 Discovery 630 0.4mg Lexiscan. SPECT RESULTS Technical Quality: Good Raw Data Analysis: Normal Image Corrections: No attenuation or motion correction applied Summed Stress Score: 3 Summed Rest Score: 0 Summed Difference Score: 3 PERFUSION FINDINGS There is a small area of mildly reduced tracer counts in the mid anterior wall on the stress images which normalizes on the rest images consistent with a small area of mild inducible ischemia. FUNCTIONAL RESULTS (calculated via Gated SPECT) Stress Image LV EF (%): 69 Stress EDV (mL):131 TID: 1.08 Stress ESV (mL):41 FUNCTIONAL FINDINGS: Normal left ventricular systolic function, EF 69% Normal left ventricular size. IMPRESSIONS 1. Abnormal myocardial perfusion with evidence of a small area of mild inducible ischemia in the mid anterior wall segment 2. Normal LV size and systolic function, EF 69%. Hakan Jaimes MD, FACC (Electronically Signed) Final Date: 04 June 2025 10:13 S
[2025-06-04 09:35] VITALS: BP 109/69; PULSE 91
== END 2025-06-04 07:17 | disposition home or self-care (01) ==
PROVIDERS: PCP Family Medicine; Visit Provider Nurse Practitioner Family
DX: I10 Essential (primary) hypertension (principal); R93.1 Abnormal findings on diagnostic imaging of heart and coronary circulation
CPT/HCPCS: 36415; 78452; 93017; 96374; A9500; J2785

== ENCOUNTER 2025-06-06 21:16 | Emergency (ER) | payer OTHER, MEDICAID, SELFPAY ==
--- OUTSIDE RECORDS SUMMARY | 2021-07-05 04:51 | XMS_ITS | Continuity of Care Document ---
Author Organization [facility] Address [address] [place] [address] Phone Care Team Providers Care Jewel Bearing Polisher Name Role Phone Kain Sakina Unavailable Unavailable Allergies, Adverse Reactions, Alerts Substance Reaction Status Criticality No Known Allergies Active No Inform ation Medications Medication Instructions Dosage Effective Dates (start - stop) Status Comments Saline Nasal (aloe vera) gel Use as needed for dry/agitated nose - Active Saline Mist 0.65 % nasal spray aerosol Use as needed for dry/agitated nose - Active glimepiride 4 mg tablet take 1 tablet by oral route 2 times every day 4 MG - Active Eliquis 5 mg tablet take 1 tablet by oral route 2 times every day 5 MG - Active Pepto-Bismol 262 mg/15 mL oral suspension Take 15ml by mouth as needed for diarrhea, needs to be taken more than 1 hour before or after pts eliquis dose - Active Voltaren 1 % topical gel apply (2G) by topical every 6 hours to sternal area for chest wall pain as needed - Active Depakote ER 500 mg tablet,extended release take 4 tablet by oral route every day 2000 MG - Active Latuda 80 mg tablet take 1 tablet by oral route every day with food (at least 350 calories) 80 MG - Active FINAL REFILL , PT [place] SEE[place] JOH[place]ON [place] [facility] [place] acetaminophen 325 mg tablet take 2 tablet by oral route every 6 hours as needed 650 MG - Active Tums 200 mg calcium (500 mg) chewable tablet chew 2 tablets by oral route 3 times every day 2 tablets - Active Pen Needle 31 gauge x 5/16 Use as directed to inject Victoza once daily, lantus solostar once daily, and Humalog 3 times a day - Active Cough Drops 5 mg okay to take 1 p.o. q 4hrs prn as needed - Active Lantus U-100 Insulin 100 unit/mL subcutaneous solution inject 25 units by subcutaneous route at bedtime for diabetes - Active Humalog U-100 Insulin 100 unit/mL subcutaneous solution inject 12u at breakfast and lunch, and 14u at dinner - Active Colace 100 mg capsule take 2 capsule by oral route every day at bedtime as needed for constipation - Active Avapro 75 mg tablet take 1 tablet by oral route every day - Active guanfacine 1 mg tablet take 1 tablet by oral route 3 times every day 1 MG - Active atenolol 100 mg tablet take 1 tablet by oral route every day - Active amlodipine 10 mg tablet TAKE 1 TABLET BY MOUTH EVERY MORNING FOR BLOOD PRESSURE - Active Invega Trinza 819 mg/2.625 mL intramuscular syringe inject 2.63 milliliter by intramuscular route every 3 months 819 MG - Active haloperidol 2 mg tablet take 1 tablet by oral route 2 times every day at 8am and 12pm, may take a 3rd tab as needed - Active Triple Antibiotic 3.5 mg-400 unit-5,000 unit/gram topical ointment Apply by topical route to affected area twice daily as needed for cuts/scrapes/abrasi ons - Active atorvastatin 40 mg tablet take 1 tablet by oral route every day 40 MG - Active Alcohol Pads DIRECTED - Active ferrous sulfate 325 mg (65 mg iron) tablet take 1 tablet by oral route every day 325 MG - Active aspirin 81 mg tablet,delayed release TAKE 1 TABLET BY MOUTH DAILY FOR HEART - Active Blood Glucose Test strips Use to test blood sugar 3 times a day. - Active Sharps Container 2 gal; for used pen needles - Active OneTouch Delica Lancets 30 gauge may test blood sugar three times daily - Active Victoza 3-Philippe 0.6 mg/0.1 mL (18 mg/3 mL) subcutaneous pen injector inject 1.8 MG by subcutaneous route every day - Active metformin 850 mg tablet take 1 tablet by oral route 3 times every day with meals - Active Procedures Procedure Date OFFICE/OUTPATIENT VISIT EST TRANS CARE MGMT 14 DAY DISCH Prophylaxis - Adult Capillary Blood Draw ASSAY GLUCOSE BLOOD QUANT TRANS CARE MGMT 14 DAY DISCH TRANS CARE MGMT 14 DAY DISCH PSYTX PT&/FAMILY 30 MINUTES ASSAY GLUCOSE BLOOD QUANT TRANS CARE MGMT 14 DAY DISCH PSYTX PT&/FAMILY 30 MINUTES Resin - Based Composite - Three Surfaces , Posterior Treatment Completed Substitute For Face To Face PSYTX PT&/FAMILY 30 MINUTES OFFICE/OUTPATIENT VISIT EST Substitute For Face To Face Substitute For Face To Face TB INTRADERMAL TEST OFFICE/OUTPATIENT NURSE VISIT EST Periodic Oral Evaluation- Established Pa gisela Intraoral - Periapical First Radiographi c Image Intraoral - Periapical Each Additional R adiographic Image Prophylaxis - Adult Bitewings - Four Radiographic Images Aug TB INTRADERMAL TEST OFFICE/OUTPATIENT VISIT EST OFFICE/OUTPATIENT VISIT EST Diabetes Self-Management, Individual, Pe r 30 Minutes Diabetes Self-Management, Individual, Pe r 30 Minutes Substitute For Face To Face Substitute For Face To Face PSYCH DIAGNOSTIC EVALUATION TRANS CARE MGMT 14 DAY DISCH Admin hepatitis b vaccine HEP B VACC ADULT 3 DOSE IM OFFICE/OUTPATIENT NURSE VISIT EST OFFICE/OUTPATIENT VISIT EST Telehealth Error OFFICE/OUTPATIENT VISIT EST PSYTX PT&/FAMILY 30 MINUTES Substitute For Face To Face Substitute For Face To Face OFFICE/OUTPATIENT VISIT EST CARE COORDINATION CARE COORDINATION Substitute For Face To Face Substitute For Face To Face Substitute For Face To Face Substitute For Face To Face Substitute For Face To Face Substitute For Face To Face Substitute For Face To Face Substitute For Face To Face DRAINAGE OF SKIN ABSCESS OFFICE/OUTPATIENT VISIT EST OFFICE/OUTPATIENT VISIT EST Telehealth Error OFFICE/OUTPATIENT VISIT EST OFFICE/OUTPATIENT VISIT EST Telehealth OFFICE/OUTPATIENT VISIT EST OFFICE/OUTPATIENT VISIT EST TRANS CARE MGMT 14 DAY DISCH OFFICE/OUTPATIENT VISIT EST PSYTX PT&/FAMILY 30 MINUTES Routine Venipuncture NURSE ENCOUNTER, LICENSED OFFICE/OUTPATIENT VISIT EST PSYTX PT&/FAMILY 30 MINUTES TRANS CARE MGMT 14 DAY DISCH Diabetes Self-Management, Individual, Pe r 30 Minutes Admin hepatitis b vaccine HEP B VACC ADULT 3 DOSE IM OFFICE/OUTPATIENT NURSE VISIT EST OFFICE/OUTPATIENT VISIT EST Routine Venipuncture NURSE ENCOUNTER, LICENSED OFFICE/OUTPATIENT VISIT EST Routine Venipuncture NURSE ENCOUNTER, LICENSED PSYTX PT&/FAMILY 30 MINUTES Admin hepatitis b vaccine HEP B VACC ADULT 3 DOSE IM NURSE ENCOUNTER, LICENSED Diabetes Self-Management, Individual, Pe r 30 Minutes PSYTX PT&/FAMILY 30 MINUTES OFFICE/OUTPATIENT VISIT EST PSYTX PT&/FAMILY 30 MINUTES Resin - Based Composite - Three Surfaces , Posterior Treatment Completed PSYTX PT&/FAMILY 30 MINUTES Admin influenza virus vac Flucelvax Quad (syringe) >=4 yrs 2018 NURSE ENCOUNTER, LICENSED STREP SCREEN OFFICE/OUTPATIENT VISIT EST Diabetes Self-Management, Individual, Pe r 30 Minutes OFFICE/OUTPATIENT VISIT EST OFFICE/OUTPATIENT VISIT EST OFFICE/OUTPATIENT VISIT EST OFFICE/OUTPATIENT VISIT EST REMOVAL IMPACTED CERUMEN USING IRRIGATIO N/LAVAGE, UNILATERAL REMOVAL IMPACTED CERUMEN USING IRRIGATIO N/LAVAGE, UNILATERAL OFFICE/OUTPATIENT VISIT EST Routine Venipuncture TB INTRADERMAL TEST Routine Venipuncture NURSE ENCOUNTER, LICENSED OFFICE/OUTPATIENT VISIT EST Periodic Oral Evaluation- Established Pa gisela Intraoral - Periapical First Radiographi c Image Intraoral - Periapical Each Additional R adiographic Image Bitewings - Four Radiographic Images May Prophylaxis - Adult OFFICE/OUTPATIENT VISIT EST PSYTX PT&/FAMILY 30 MINUTES NURSE ENCOUNTER NON-LICENSED REMOVE IMPACTED EAR WAX UNI OFFICE/OUTPATIENT VISIT EST Routine Venipuncture REMOVE IMPACTED EAR WAX UNI OFFICE/OUTPATIENT VISIT EST PSYCH DIAGNOSTIC EVALUATION Routine Venipuncture OFFICE/OUTPATIENT VISIT EST Routine Venipuncture NURSE ENCOUNTER, LICENSED OFFICE/OUTPATIENT VISIT EST PSYCH DIAG EVAL W/MED SRVCS Routine Venipuncture NURSE ENCOUNTER, LICENSED OFFICE/OUTPATIENT VISIT EST ASSAY GLUCOSE BLOOD QUANT Capillary Blood Draw Flucelvax Quad (syringe) >=4 yrs 2017 NURSE ENCOUNTER, LICENSED Admin influenza virus vac NURSE ENCOUNTER, LICENSED OFFICE/OUTPATIENT VISIT EST PSYTX PT&/FAMILY 30 MINUTES OFFICE/OUTPATIENT VISIT EST NURSE ENCOUNTER, LICENSED OFFICE/OUTPATIENT VISIT EST PSYTX PT&/FAMILY 30 MINUTES Routine Venipuncture NURSE ENCOUNTER, LICENSED Interim Partial Denture ( Mandibular ) A Primary Impression OFFICE/OUTPATIENT VISIT EST Routine Venipuncture PSYTX PT&/FAMILY 30 MINUTES OFFICE/OUTPATIENT VISIT EST OFFICE/OUTPATIENT VISIT EST Routine Venipuncture PSYTX PT&/FAMILY 30 MINUTES Amalgam - Two Surfaces, Primary Or Perma nent Resin - Based Composite - Two Surfaces, Posterior PSYTX PT&/FAMILY 30 MINUTES OFFICE/OUTPATIENT VISIT EST Periodic Oral Evaluation- Established Pa tient Intraoral - Periapical First Radiographi c Image Intraoral - Periapical Each Additional R adiographic Image Bitewings - Four Radiographic Images Feb Prophylaxis - Adult OFFICE/OUTPATIENT VISIT EST ROUTINE VENIPUNCTURE MICROALBUMIN SEMIQUANT(In House) 2017 ASSAY OF URINE CREATININE (Inhouse) OFFICE/OUTPATIENT VISIT EST OFFICE/OUTPATIENT VISIT EST ROUTINE VENIPUNCTURE OFFICE/OUTPATIENT VISIT EST PSYCH DIAGNOSTIC EVALUATION NURSE ENCOUNTER LICENSED W/INJECTION Dec ROUTINE VENIPUNCTURE OFFICE/OUTPATIENT VISIT EST OFFICE/OUTPATIENT VISIT EST OFFICE/OUTPATIENT VISIT EST CAPILLARY BLOOD DRAW ASSAY GLUCOSE BLOOD QUANT STREP SCREEN OFFICE/OUTPATIENT VISIT EST Dexamethasone sodium phos THER/PROPH/DIAG INJ SC/IM Ceftriaxone sodium injection Ther/Proph/Diag Injection - SC/IM Methylprednisolone 40 MG inj OFFICE/OUTPATIENT VISIT EST STREP SCREEN OFFICE/OUTPATIENT VISIT EST NURSE ENCOUNTER, LICENSED PREV VISIT EST AGE 18-39 ROUTINE VENIPUNCTURE OFFICE/OUTPATIENT VISIT EST OFFICE/OUTPATIENT VISIT EST Advance Directives Directive Yes / No Effective Date File Name No Information Encounters Encounter Description Practice Location Reason(s) For Visit Diagnoses Date Provider Providers Copied on Encounter [facility], [address] [place] [address], [id number], [place] tel:[phone] [facility] No Information 1 Kain Presley. [address] [place], [address], [place]. tel:[phone] [facility], [address] [place] [address], [id number], tel:[phone] [facility] Schizoaffect alessandra Disorder, Bipolar typeIntermit tent Explosive DisorderMode rate intellectual disabilities Major depressive disorder, recurrent, moderate 1 Heather Hay. [address] [place] [address], [id number], [place]. tel:[phone] OFFICE/OUTPA TIENT VISIT EST [facility], [address] [place] [address] [place], [place], [id number], [place] tel:[phone] [facility] trilogy f/u (chief complaint)severo alfonso (chief complaint) Obstructive sleep apneaType 2 diabetes with hyperglycemi a 1 Ricci Metzger. [address] [place] [address], [id number], [place]. tel:[phone] Referring Provider: Domenica Wynne, [address] [place] [address], [id number]. tel:[phone] [facility], [address] [place] [address] [place], [place], [id number], [place] tel:[phone] [facility] Morbid (severe) obesity with alveolar hypoventilat ionChronic respiratory failure with hypercapnia 1 Ricci Metzger. [address] [place] [address], [id number], [place]. tel:[phone] TRANS CARE MGMT 14 DAY DISCH [facility], [address] [place] [address] [place], [place], [id number], [place] tel:[phone] [facility] Hospital F/U (chief complaint) Body mass index (BMI) 40.0-44.9, adultObstruc tive sleep apneaType 2 diabetes with hyperglycemi a 1 Ricci Metzger. [address] [place] [address], [id number], [place]. tel:[phone] Referring Provider: Domenica Wynne, [address] [place] [address], [id number]. tel:[phone] [facility], [address] [place] [address] [place], [place], [id number], [place] tel:[phone] [facility] Deposits [accretions] on teeth 1 Sj Rowe. [address] [place], [place], [id number], [place]. tel:[phone] Referring Provider: Jae Powell, [address] [place], [address]. tel:[phone] lting Provider: Chastity Mackenzie, [address] [place], [address]. tel:[phone] [facility], [facility] [facility] [place], [id number], [place] tel:[phone] [facility] No Information 1 Glen Braden. [address] [place] [address] , [place], [place], [id number], [place]. tel:[phone] TRANS CARE [facility] 14 DAY DISCH [facility], [address] [facility] [address] [place], [place], [id number], [place] tel:[phone] [facility] Hospital f/u (chief complaint) Personal history of pulmonary embolismType 2 diabetes with hyperglycemi a 1 Ricci Metzger. [address] [place] [address], [id number], [place]. tel:[phone] Referring Provider: Domenica Wynne, [address] [place] [address], [id number]. tel:[phone] TRANS CARE [facility] 14 DAY DISCH [facility], [address] [facility] [address] [place], [place], [id number], [place] tel:[phone] [facility] Follow Up of depression (chief complaint)Hos pital f/u (chief complaint) Type 2 diabetes with hyperglycemi aSchizoaffec tive Disorder, Bipolar type Mar-2 1 Ricci Metzger. [address] [place] [address], [id number], [place]. tel:[phone] Referring Provider: Domenica Wynne, [address] [place] [address], [id number]. tel:[phone] PSYTX PT&/FAMILY 30 MINUTES [facility], [address] [place] [address] [place], [place], [id number], [place] tel:[phone] [facility] Schizoaffect alessandra Disorder, Bipolar typeIntermit tent Explosive DisorderMode rate intellectual disabilities Major depressive disorder, recurrent, moderate Jan- 1 Heather Hay. [address] [place] [address], [id number], [place]. tel:[phone] Referring Provider: Bharti Leo, [address] [place] [address], [id number]. tel:[phone] TRANS CARE MGMT 14 DAY DISCH [facility], [address] [place] [address], [id number], [place] tel:[phone] [facility] Chest pain (chief complaint)severo betes (chief complaint)Dys pnea (chief complaint) Chest painType 2 diabetes mellitus with hyperglycemi aType 2 diabetes mellitus with hypoglycemia without coma Mar-1 0- 1 Ricci Metzger. [address] [place] [address], [id number], [place]. tel:[phone] Referring Provider: Domenica Wynne, [address] [place] [address], [id number]. tel:[phone] [facility], [address] [place] [address], [id number], tel:[phone] [facility] No Information Jan-0 8 1 Obdulio Benavides. [address] [place] [address], [id number], [place]. tel:[phone] [facility], [address] [place] [address], [id number], [place] tel:[phone] [facility] Schizoaffect alessandra Disorder, Bipolar typeIntermit tent Explosive DisorderMode rate intellectual disabilities Major depressive disorder, recurrent, moderate Mar-0 1-202 1 Obdulio Benavides. [address] [place] [address], [id number], [place]. tel:[phone] [facility], [address] [place] [address], [id number], [place] tel:[phone] [facility] No Information Dec- 1 Ricci Metzger. [address] [place] [address], [id number], [place]. tel:[phone] PSYTX PT&/FAMILY 30 MINUTES [facility], [address] [place] [address] [place], [place], [id number], [place] tel:[phone] [facility] Schizoaffect alessandra Disorder, Bipolar typeIntermit tent Explosive DisorderMode rate intellectual disabilities Major depressive disorder, recurrent, moderate 1 Heather Hay. [address] [place] [address], [id number], [place]. tel:[phone] Referring Provider: Bharti Leo, [address] [place] [address], [address]. tel:[phone] [facility], [address] [place] [address], [id number], [place] tel:[phone] [facility] No Information 1 Ricci Metzger. [address] [place] [address], [id number], . tel:[phone] [facility], [address] [place] [address], [id number], tel:[phone] [facility] Dental caries, unspecifiedE ncounter for dental exam and cleaning w/o abnormal findings 1 Sj Rowe. [address] [place] [address], [id number], [place]. tel:[phone] Referring Provider: Jae Powell, [address] [place] [address], [address]. tel:[phone] [facility], [address] [place] [address], [id number], tel:[phone] [facility] hospital f/u (chief complaint)hyp ertension (chief complaint)severo betes (chief complaint)dep ression (chief complaint) Other specified respiratory disordersHyp ertensionTyp e 2 diabetes mellitus with hypoglycemia without coma 1 Ricci Metzger. [address] [place] [address], [id number], . tel:[phone] Referring Provider: Domenica Wynne, [address] [place] [address], [id number]. tel:[phone] PSYTX PT&/FAMILY 30 MINUTES [facility], [address] [place] [address], [id number], [place] tel:[phone] [facility] Schizoaffect alessandra Disorder, Bipolar typeIntermit tent Explosive DisorderMode rate intellectual disabilities Major depressive disorder, recurrent, moderate 1 Heather Hay. [address] [place], [place], [id number], [place]. tel:[phone] Referring Provider: Bharti Leo, [address] [place], [address]. tel:[phone] [facility], [address] [place] [address] [place], [place], [id number], [place] tel:[phone] [facility] No Information 1 Ricci Metzger. [address] [place] [address], [id number], [place]. tel:[phone] OFFICE/OUTPA TIENT VISIT EST [facility], [address] [place] [address] [place], [place], [id number], [place] tel:[phone] [facility] Chest pain (chief complaint)Col d symptoms (chief complaint) Chest painUpper respiratory infection 0 0 Ricci Metzger. [address] [place] [address], [id number], [place]. tel:[phone] Referring Provider: Domenica Wynne, [address] [place] [address], [id number]. tel:[phone] [facility], [address] [facility] [place], [place], [id number], [place] tel:[phone] [facility] No Information 0 Nathalie Mcdermott. [address] [place] [address], [id number], [place]. tel:[phone] [facility], [address] [place] [address] [place], [place], [id number], [place] tel:[phone] [facility] Schizoaffect alessandra Disorder, Bipolar typeIntermit tent Explosive DisorderMode rate intellectual disabilities Major depressive disorder, recurrent, moderate 0 Michelle Yang. [address] [place], [place], [id number], [place]. tel:[phone] Referring Provider: Celia Briseno, [address] [place], [address]. tel:[phone] [facility], [address] [place], [place], [id number], [place] tel:[phone] [facility] Schizoaffect alessandra Disorder, Bipolar typeIntermit tent Explosive DisorderMode rate intellectual disabilities Major depressive disorder, recurrent, moderate Nov-2 0-202 0 Michelle Yang. [address] [place], [place], [id number], [place]. tel:[phone] [facility], [address] [place], [place], [id number], [place] tel:[phone] [facility] Schizoaffect alessandra Disorder, Bipolar typeIntermit tent Explosive DisorderMode rate intellectual disabilities Major depressive disorder, recurrent, moderate Oct-3 0-202 0 Michelle Yang. [address] [place] [address], [id number], [place]. tel:[phone] Referring Provider: Celia Briseno, [address] [place] [address], [address]. tel:[phone] OFFICE/OUTPA TIENT NURSE VISIT EST [facility], [address] [place], [place], [id number], [place] tel:[phone] [facility] [place]: TB Test (chief complaint) Encounter for screening for respiratory tuberculosis 0 5-202 0 Ricci Metzger. [address] [place], [place], [id number], [place]. tel:[phone] Referring Provider: Domenica Wynne, [address] [place] [address], [address]. tel:[phone] [facility], [address] [place], [place], [id number], [place] tel:[phone] [facility] Encounter for dental exam and cleaning w abnormal findingsDepo sits [accretions] on teeth Aug-0 2-202 0 Sj Rowe. [address] [place], [place], [id number], [place]. tel:[phone] Referring Provider: Alexey Hood, [address] [place] [address], [address]. tel:[phone] lting Provider: Chastity Mackenzie, [address] [place] [address], [address]. tel:[phone] [facility], [address] [place], [place], [id number], [place] tel:[phone] [facility] Schizoaffect alessandra Disorder, Bipolar typeIntermit tent Explosive DisorderMode rate intellectual disabilities Major depressive disorder, recurrent, moderate Sep-2 0 Michelle Yang. [address] [place] [address], [id number], [place]. tel:[phone] [facility], [address] [place], [place], [id number], [place] tel:[phone] [facility] Schizoaffect alessandra Disorder, Bipolar typeIntermit tent Explosive DisorderMode rate intellectual disabilities Major depressive disorder, recurrent, moderate Sep-1 0 Michelle Yang. [address] [place] [address], [id number], [place]. tel:[phone] OFFICE/OUTPA TIENT VISIT EST [facility], [address] [place], [place], [id number], tel:[phone] [facility] Physical (chief complaint)DRV S (chief complaint)severo betes (chief complaint)hyp erlipidemia (chief complaint)hyp ertension (chief complaint) Encounter for general adult medical exam w abnormal findingsType 2 diabetes mellitus with hypoglycemia without comaSchizoaf fective Disorder, Bipolar typeModerate intellectual disabilities Hypertension Disorder of the skin and subcutaneous tissue, unspecifiedE ncounter for screening for respiratory tuberculosis Sep-0 0 Ricci Metzger. [address] [place] [address], [id number], . tel:[phone] Referring Provider: Domenica Wynne, [address] [place] [address], [address]. tel:[phone] OFFICE/OUTPA TIENT VISIT EST [facility], [address] [place] [address] , [place], [place], [id number], tel:[phone] [facility] ER F/U (chief complaint)severo alfonso (chief complaint) Body mass index (BMI) 45.0-49.9, adultType 2 diabetes mellitus with hypoglycemia without coma Sep-0 8-202 0 Ricci Metzger. [address] [place] [address], [id number], [place]. tel:[phone] Referring Provider: Domenica Wynne, [address] [place] [address], [address]. tel:[phone] [facility], [facility] [facility] , [place], [place], [id number], tel:[phone] [facility] Type 2 diabetes with hyperglycemi aType 2 diabetes mellitus with hypoglycemia without coma Sep-0 1-202 0 Ping Waddell. [address] [place] [address] [place], [place], [id number], [place]. tel:[phone] Referring Provider: Domenica Wynne, [address] [place] [address], [id number]. tel:[phone] [facility], [facility] [facility] [place], [place], [id number], tel:[phone] [facility] Schizoaffect alessandra Disorder, Bipolar typeIntermit tent Explosive DisorderMode rate intellectual disabilities Major depressive disorder, recurrent, moderate Aug-2 6-202 0 Michelle Yang. [address] [place] [address], [id number], [place]. tel:[phone] Referring Provider: Celia Briseno, [address] [place] [address], [address]. tel:[phone] [facility], [address] [facility] [place], [place], [id number], tel:[phone] [facility] Schizoaffect alessandra Disorder, Bipolar typeIntermit tent Explosive DisorderMode rate intellectual disabilities Major depressive disorder, recurrent, moderate Aug-1 7-202 0 Michelle Yang. [address] [place], [place], [id number], [place]. tel:[phone] Referring Provider: Celia Briseno, [facility] [place], [address]. tel:[phone] PSYCH DIAGNOSTIC EVALUATION [facility], [address] [place] [address], [id number], [place] tel:[phone] [facility] Schizoaffect alessandra Disorder, Bipolar typeIntermit tent Explosive DisorderMode rate intellectual disabilities Major depressive disorder, recurrent, moderate 0 Heather Hay. [facility] [place], [place], [id number], [place]. tel:[phone] Referring Provider: Bharti Leo, [address] [place] [address], [address]. tel:[phone] [facility], [address] [place] [address] [place], [place], [id number], [place] tel:[phone] [facility] No Information 0 Glen Braden. [address] [place] [address], [id number], [place]. tel:[phone] TRANS CARE MGMT 14 DAY DISCH [facility], [address] [place], [place], [id number], [place] tel:[phone] [facility] Hospital F/U (chief complaint) Type 2 diabetes mellitus with hypoglycemia without coma 0 Ricci Metzger. [address] [place] [address], [id number], [place]. tel:[phone] Referring Provider: Domenica Wynne, [address] [place] [address], [address]. tel:[phone] OFFICE/OUTPA TIENT NURSE VISIT EST [facility], [address] [facility] [place], [place], [id number], [place] tel:[phone] [facility] Hep B vaccine (chief complaint) Encounter for immunization 0 Ricci Metzger. [address] [place] [address], [id number], [place]. tel:[phone] Referring Provider: Domenica Wynne, [address] [place] [address], [address]. tel:[phone] OFFICE/OUTPA TIENT VISIT [facility], [address] [place], [place], [id number], [place] tel:[phone] [facility] Eye problems (chief complaint) Unspecified conjunctivit is 0 Ricci Metzger. [address] [place], [place], [id number], [place]. tel:[phone] Referring Provider: Domenica Wynne, [address] [place] [address], [address]. tel:[phone] Telehealth Error OFFICE/OUTPA TIENT VISIT [facility], [address] [place], [place], [id number], [place] tel:[phone] [facility] Schizoaffect alessandra Disorder, Bipolar typeIntermit tent Explosive DisorderMode rate intellectual disabilities Major depressive disorder, recurrent, moderate 0 Michelle Yang. [address] [place] [address], [id number], [place]. tel:[phone] Referring Provider: Celia Briseno, [address] [place] [address], [address]. tel:[phone] PSYTX PT&/FAMILY 30 MINUTES [facility], [address] [place], [place], [id number], [place] tel:[phone] [facility] Schizoaffect alessandra Disorder, Bipolar typeIntermit tent Explosive DisorderMode rate intellectual disabilities Major depressive disorder, recurrent, moderate 0 Heather Hay. [address] [place] [address], [id number], [place]. tel:[phone] Referring Provider: Bharti Leo, [address] [place] [address], [address]. tel:[phone] [facility], [address] [place] [address], [id number], [place] tel:[phone] [facility] Follow Up of 6 Month (chief complaint)Fol low Up of Depression (chief complaint)Fol low Up of Knee Pain (chief complaint)Fol low Up of Diabetes (chief complaint)COV ID 19- Comments (chief complaint) Body mass index (BMI) 45.0-49.9, adultDiabete s due to underlying condition w hypoglycemia w/o comaMajor depressive disorder, recurrent, moderateHype rtensionObes ity Apr- 0 0 Ricci Metzger. [address] [place] [address], [id number], [place]. tel:[phone] Referring Provider: Domenica Wynne, [address] [place] [address], [address]. tel:[phone] [facility], [address] [place] [address] [place], [place], [id number], [place] tel:[phone] [facility] Schizoaffect alessandra Disorder, Bipolar typeIntermit tent Explosive DisorderMode rate intellectual disabilities Major depressive disorder, recurrent, moderate 0 Michelle Yang. [address] [place] [address], [id number], [place]. tel:[phone] Referring Provider: Celia Briseno, [address] [place] [address], [address]. tel:[phone] OFFICE/OUTPA TIENT VISIT EST [facility], [address] [place] [address] [place], [place], [id number], [place] tel:[phone] [facility] hospital fu (chief complaint)severo betes (chief complaint)obe sity (chief complaint)hyp ertension (chief complaint) ObesityDiabe trevin due to underlying condition w hypoglycemia w/o comaHyperten keila 0 Ricci Metzger. [address] [place] [address], [id number], [place]. tel:[phone] Referring Provider: Domenica Wynne, [address] [place] [address], [address]. tel:[phone] [facility], [address] [place] [address] [place], [place], [id number], tel:[phone] [facility] Schizoaffect alessandra Disorder, Bipolar typeIntermit tent Explosive DisorderMode rate intellectual disabilities Major depressive disorder, recurrent, moderate Campbell-1 5-202 0 Heather Hay. [address] [place] [address], [id number], [place]. tel:[phone] Referring Provider: Bharti Leo, [address] [place] [address], [address]. tel:[phone] [facility], [address] [facility] , [place], [place], [id number], tel:[phone] [facility] Schizoaffect alessandra Disorder, Bipolar typeIntermit tent Explosive DisorderMode rate intellectual disabilities Major depressive disorder, recurrent, moderate Campbell-0 - 0 Heather Hay. [address] [place] [address], [id number], [place]. tel:[phone] Referring Provider: Bharti Leo, [address] [place] [address], [address]. tel:[phone] [facility], [address] [facility] , [place], [place], [id number], tel:[phone] [facility] Schizoaffect alessandra Disorder, Bipolar typeIntermit tent Explosive DisorderMode rate intellectual disabilities Major depressive disorder, recurrent, moderate March-12 12- 0 Heather Hay. [address] [place] [address], [id number], [place]. tel:[phone] Referring Provider: Bharti Leo, [address] [place] [address], [address]. tel:[phone] [facility], [address] [facility] [place], [place], [id number], [place] tel:[phone] [facility] Follow Up of 2 Week (chief complaint)Fol low Up of Diabetes (chief complaint)COV ID 19- Comments (chief complaint)moo d disorder (chief complaint) Type 2 diabetes with hyperglycemi aMajor depressive disorder, recurrent, moderate May-2 7-202 0 Ricci Metzger. [facility] [place], [place], [id number], [place]. tel:[phone] Referring Provider: Domenica Wynne, [address] [place] [address], [address]. tel:[phone] [facility], [address] [place] [address], [id number], [place] tel:[phone] [facility] Schizoaffect alessandra disorder, bipolar typeIntermit tent explosive disorder 0 Michelle Yang. [address] [place], [place], [id number], [place]. tel:[phone] Referring Provider: Celia Briseno, [address] [place] [address], [address]. tel:[phone] [facility], [address] [place] [address], [id number], [place] tel:[phone] [facility] Follow Up of 2 Week (chief complaint)Fol low Up of Diabetes (chief complaint)COV ID 19- Comments (chief complaint) Type 2 diabetes with hyperglycemi a 0 Ricci Metzger. [address] [place] [address], [id number], [place]. tel:[phone] Referring Provider: Domenica Wynne, [address] [place] [address], [address]. tel:[phone] [facility], [address] [place] [address] [place], [place], [address], [place] tel:[phone] [facility] Schizoaffect alessandra disorder, bipolar typeIntermit tent explosive disorder March-0 0 Michelle Yang. [facility] [place], [place], [id number], [place]. tel:[phone] Referring Provider: Celia Briseno, [address] [place], [address]. tel:[phone] [facility], [address] [place] [address] [place], [place], [address], [place] tel:[phone] [facility] Diabetes due to underlying condition w hypoglycemia w/o comaType 2 diabetes with hyperglycemi aModerate intellectual disabilities March-0 0 Ricci Metzger. [address] [place], [place], [id number], [place]. tel:[phone] [facility], [address] [facility] [place], [place], [id number], tel:[phone] [facility] Schizoaffect alessandra disorder, bipolar typeIntermit tent explosive disorder March-0 - 0 Heather Hay. [address] [place] [address], [id number], [place]. tel:[phone] Referring Provider: Bharti Leo, [address] [place] [address], [address]. tel:[phone] [facility], [address] [place] [address] [place], [place], [address], tel:[phone] [facility] Follow Up of 1 Week (chief complaint)Fol low Up of Hernandez (chief complaint)Fol low Up of Diabetes (chief complaint)COV ID 19- Comments (chief complaint) 2nd degree burn of back of hand, initial encounterTyp e 2 diabetes mellitus with hypoglycemia without coma Apr-3 0- 0 Ricci Metzger. [facility] [place], [place], [id number], [place]. tel:[phone] Referring Provider: Domenica Wynne, [address] [place] [address], [address]. tel:[phone] [facility], [address] [facility] [place], [place], [address], [place] tel:[phone] [facility] Diabetes due to underlying condition w hypoglycemia w/o comaDietary counseling and surveillance Oth diabetes mellitus with hypoglycemia without coma Feb-2 0 Ping Waddell. [address] [place] [address] [place], [place], [id number], [place]. tel:[phone] OFFICE/OUTPA TIENT VISIT EST [facility], [address] [place] [address] [place], [place], [id number], [place] tel:[phone] [facility] acute (chief complaint)Bur ns (chief complaint)severo betes (chief complaint) 2nd degree burn of back of hand, initial encounterTyp e 2 diabetes mellitus with hypoglycemia without coma Apr-2 0 Ricci Metzger. [address] [place] [address], [id number], [place]. tel:[phone] Referring Provider: Domenica Wynne, [address] [place] [address], [address]. tel:[phone] OFFICE/OUTPA TIENT VISIT [facility], [address] [place] [address] [place], [place], [id number], [place] tel:[phone] [facility] Follow Up of Hospital (chief complaint)Fol low Up of Hypoglycemia (chief complaint)COV ID 19- Comments (chief complaint) Type 2 diabetes mellitus with hypoglycemia without coma Apr-2 0 Ricci Metzger. [address] [place] [address], [id number], [place]. tel:[phone] Referring Provider: Domenica Wynne, [address] [place] [address], [address]. tel:[phone] Telehealth Error OFFICE/OUTPA TIENT VISIT [facility], [address] [place] [address] [place], [place], [address], [place] tel:[phone] [facility] Follow Up of Hospital (chief complaint)COV ID 19- Comments (chief complaint)severo betes (chief complaint) Type 2 diabetes mellitus with hypoglycemia without coma Apr-1 0 Ricci Metzger. [address] [place] [address], [id number], [place]. tel:[phone] Referring Provider: Domenica Wynne, [address] [place] [address], [address]. tel:[phone] [facility], [address] [place] [address] [place], [place], [id number], [place] tel:[phone] [facility] No Information Apr-0 - 0 Ricci Metzger. [address] [place] [address], [id number], [place]. tel:[phone] OFFICE/OUTPA TIENT VISIT [facility], [address] [facility] , [place], [place], [id number], [place] tel:[phone] [facility] Leg Pain/Swelling (chief complaint) Pain in right legEdemaType 2 diabetes mellitus with hypoglycemia without coma Apr-0 3-202 0 Galileo Augustin. [address] [place] [address], [id number], [place]. tel:[phone] Referring Provider: Demetria Pastor, [address] [place] [address], [address]. tel:[phone] Telehealth OFFICE/OUTPA TIENT VISIT [facility], [address] [place], [place], [id number], [place] tel:[phone] [facility] ER f/up (chief complaint)severo betes (chief complaint) Diabetes due to underlying condition w hypoglycemia w/o coma Mar-3 0-202 0 Ricci Metzger. [address] [place] [address], [id number], [place]. tel:[phone] Referring Provider: Domenica Wynne, [address] [place] [address], [address]. tel:[phone] OFFICE/OUTPA TIENT VISIT [facility], [address] [place] [address], [id number], [place] tel:[phone] [facility] Schizoaffect alessandra disorder, bipolar typeIntermit tent explosive disorder Mar-3 0-202 0 Michelle Yang. [address] [place] [address], [id number], [place]. tel:[phone] Referring Provider: Celia Briseno, [address] [place], [address]. tel:[phone] [facility], [address] [facility] [place], [place], [id number], [place] tel:[phone] [facility] Schizoaffect alessandra disorder, bipolar typeIntermit tent explosive disorder Mar-2 4-202 0 Michelle Yang. [address] [place] [address], [id number], [place]. tel:[phone] TRANS CARE MGMT 14 DAY DISCH [facility], [address] [place] [address] [place], [place], [address], [place] tel:[phone] [facility] Follow Up (chief complaint)dep ression (chief complaint) Body mass index (BMI) 40.0-44.9, adultMajor depressive disorder, recurrent, moderateType 2 diabetes mellitus without complication sEncounter for general adult medical exam w abnormal findings Jan-2 0 Ricci Metzger. [address] [place] [address], [id number], [place]. tel:[phone] Referring Provider: Domenica Wynne, [address] [place] [address], [address]. tel:[phone] [facility], [address] [place] [address] [place], [place], [address], [place] tel:[phone] [facility] Schizoaffect alessandra disorder, bipolar typeIntermit tent explosive disorder 0 Michelle Yang. [address] [place] [address], [id number], [place]. tel:[phone] OFFICE/OUTPA TIENT VISIT EST [facility], [address] [place] [address] [place], [place], [id number], [place] tel:[phone] [facility] puncture (chief complaint) Encounter for immunization Jan- 0 Cooper June. [address] [place] [address], [id number], [place]. tel:[phone] Referring Provider: Shaylee Gamboa, [address] [place] [address], [address]. tel:[phone] PSYTX PT&/FAMILY 30 MINUTES [facility], [address] [place] [address] [place], [place], [address], [place] tel:[phone] [facility] Schizoaffect alessandra disorder, bipolar typeIntermit tent explosive disorder Jan- 0 Heather Hay. [address] [place], [place], [id number], [place]. tel:[phone] Referring Provider: Bharti Leo, [address] [place] [address], [address]. tel:[phone] NURSE ENCOUNTER, LICENSED [facility], [address] [facility] , [place], [place], [id number], [place] tel:[phone] [facility] Other terminal worker (current) drug therapy Jan-0 0 Michelle Yang. [address] [place] [address], [id number], [place]. tel:[phone] Referring Provider: Celia Briseno, [address] [place] [address], [address]. tel:[phone] OFFICE/OUTPA TIENT VISIT EST [facility], [address] [facility] , [place], [place], [id number], tel:[phone] [facility] Schizoaffect aelssandra disorder, bipolar typeIntermit tent explosive disorder 0 Michelle Yang. [address] [place] [address], [id number], [place]. tel:[phone] Referring Provider: Celia Briseno, [address] [place] [address], [address]. tel:[phone] [facility], [address] [facility] , [place], [place], [id number], tel:[phone] [facility] Schizoaffect alessandra disorder, bipolar typeIntermit tent explosive disorder 0 Tello Marie. . PSYTX PT&/FAMILY 30 MINUTES [facility], [address] [facility] [place], [place], [id number], [place] tel:[phone] [facility] Schizoaffect alessandra disorder, bipolar typeIntermit tent explosive disorder 0 Heather Hay. [address] [place] [address], [id number], [place]. tel:[phone] Referring Provider: Bharti Leo, [address] [place] [address], [address]. tel:[phone] TRANS CARE MGMT 14 DAY DISCH [facility], [address] [place] [address] [place], [place], [id number], tel:[phone] [facility] hospital f/u (chief complaint)severo betes (chief complaint)abd ominal pain (chief complaint) Diarrhea, unspecifiedG astroenterit isOther specified DM with hypoglycemia without coma 0 Ricci Metzger. [address] [place] [address], [id number], [place]. tel:[phone] Referring Provider: Domenica Wynne, [address] [place] [address], [address]. tel:[phone] [facility], [address] [place] [address] [place], [place], [id number], tel:[phone] [facility] Dietary counseling and surveillance Type 2 diabetes mellitus without complication sMixed hyperlipidem ia 0 Ping Waddell. [address] [place] [address] [place], [place], [address], [place]. tel:[phone] Referring Provider: Domenica Wynne, [address] [place] [address], [address]. tel:[phone] OFFICE/OUTPA TIENT NURSE VISIT [facility], [address] [place] [address], [id number], tel:[phone] [facility] Hepatitis B vaccine (chief complaint) Encounter for immunization 0 Ricci Metzger. [address] [place] [address], [id number], [place]. tel:[phone] Referring Provider: Domenica Wynne, [address] [place] [address], [address]. tel:[phone] OFFICE/OUTPA TIENT VISIT [facility], [address] [place] [address] [place], [place], [address], [place] tel:[phone] [facility] 3 month lab f/u (chief complaint)kne e pain (chief complaint)severo betes (chief complaint)dep ression (chief complaint) Type 2 diabetes mellitus without complication sEssential (primary) hypertension Schizoaffect alessandra disorder, bipolar typeHyperlip idemia 9 Ricci Metzger. [facility] [place], [place], [id number], [place]. tel:[phone] Referring Provider: Domenica Wynne, [address] [place] [address], [address]. tel:[phone] NURSE ENCOUNTER, LICENSED [facility], [address] [place] [address], [id number], [place] tel:[phone] [facility] Other chcf (current) drug therapy 9 Michelle Yang. [address] [place] [address], [id number], [place]. tel:[phone] Referring Provider: Celia Briseno, [address] [place] [address], [address]. tel:[phone] OFFICE/OUTPA TIENT VISIT EST [facility], [address] [place] [address], [id number], [place] tel:[phone] [facility] Schizoaffect alessandra disorder, bipolar typeIntermit tent explosive disorder 9 Michelle Yang. [facility] [place], [place], [id number], [place]. tel:[phone] Referring Provider: Celia Briseno, [address] [place] [address], [address]. tel:[phone] NURSE ENCOUNTER, LICENSED [facility], [address] [place] [address], [id number], [place] tel:[phone] [facility] Essential (primary) hypertension Type 2 diabetes mellitus with hypoglycemia without comaEncntr screen for infections w sexl mode of transmissEnc ounter for screening for other viral diseases 9 Ricci Metzger. [address] [place], [place], [id number], [place]. tel:[phone] Referring Provider: Domenica Wynne, [address] [place] [address], [address]. tel:[phone] PSYTX PT&/FAMILY 30 MINUTES [facility], [address] [facility] , [place], [place], [id number], [place] tel:[phone] [facility] Schizoaffect alessandra disorder, bipolar typeIntermit tent explosive disorder 9 Heather Hay. [address] [place], [place], [id number], [place]. tel:[phone] Referring Provider: Bharti Leo, [address] [place] [address], [address]. tel:[phone] NURSE ENCOUNTER, LICENSED [facility], [address] [place] [address] [place], [place], [id number], [place] tel:[phone] [facility] Hep B Vaccine (chief complaint) Encounter for immunization 9 Ricci Metzger. [address] [place] [address], [id number], [place]. tel:[phone] Referring Provider: Domenica Wynne, [address] [place] [address], [address]. tel:[phone] [facility], [address] [facility] [place], [place], [address], [place] tel:[phone] [facility] Type 2 diabetes with hyperglycemi a Ping Doverri. [address] [place] [address], [id number], [place]. tel:[phone] Referring Provider: Domenica Wynne, [address] [place] [address], [address]. tel:[phone] PSYTX PT&/FAMILY 30 MINUTES [facility], [address] [facility] [place], [place], [id number], [place] tel:[phone] [facility] Schizoaffect alessandra disorder, bipolar typeIntermit tent explosive disorder 9 Heather Hay. [address] [place], [place], [id number], [place]. tel:[phone] Referring Provider: Bharti Leo, [address] [place], [address]. tel:[phone] OFFICE/OUTPA TIENT VISIT EST [facility], [address] [facility] , [place], [place], [id number], [place] tel:[phone] [facility] Schizoaffect alessandra disorder, bipolar typeIntermit tent explosive disorder 9 Michelle Yang. [address] [place] [address], [id number], [place]. tel:[phone] Referring Provider: Celia Briseno, [address] [place] [address], [address]. tel:[phone] PSYTX PT&/FAMILY 30 MINUTES [facility], [address] [facility] [place], [place], [address], [place] tel:[phone] [facility] Major depressive disorder, recurrent, moderateInte rmittent explosive disorderMode rate intellectual disabilities 9 Heather Hay. [address] [place] [address], [id number], [place]. tel:[phone] Referring Provider: Bharti Leo, [address] [place] [address], [address]. tel:[phone] [facility], [address] [facility] [place], [place], [id number], tel:[phone] [facility] caries, unspecifiedE ncounter for dental exam and cleaning w/o abnormal findings 9 Sj Rowe. [facility] [place], [place], [id number], [place]. tel:[phone] PSYTX PT&/FAMILY 30 MINUTES [facility], [address] [facility] [place], [place], [address], [place] tel:[phone] [facility] Type 2 diabetes mellitus without complication sMajor depressive disorder, recurrent, moderateInte rmittent explosive disorderMode rate intellectual disabilities 9 Heather Hay. [address] [place] [address], [id number], [place]. tel:[phone] Referring Provider: Bharti Leo, [address] [place], [address]. tel:[phone] NURSE ENCOUNTER, LICENSED [facility], [address] [place] [address] [place], [place], [id number], [place] tel:[phone] [facility] flu vaccine (chief complaint) Encounter for immunization 9 Ricci Metzger. [address] [place] [address], [id number], [place]. tel:[phone] Referring Provider: Domenica Wynne, [address] [place] [address], [address]. tel:[phone] OFFICE/OUTPA TIENT VISIT EST [facility], [address] [place] [address] [place], [place], [address], [place] tel:[phone] [facility] sinusitis (chief complaint) Pharyngitis 9 Ricci Metzger. [address] [place] [address], [id number], [place]. tel:[phone] Referring Provider: Domenica Wynne, [address] [place] [address], [address]. tel:[phone] [facility], [address] [place] [address] [place], [place], [address], [place] tel:[phone] [facility] Type 2 diabetes mellitus without complication s 9 Ping Waddell. [address] [place] [address] [place], [place], [address], [place]. tel:[phone] Referring Provider: Domenica Wynne, [address] [place] [address], [address]. tel:[phone] OFFICE/OUTPA TIENT VISIT EST [facility], [address] [place] [address] [place], [place], [address], [place] tel:[phone] [facility] Schizoaffect alessandra disorder, bipolar typeAdjustme nt disorder with mixed anxiety and depressed moodIntermit tent Explosive DisorderType 2 diabetes with hyperglycemi a 9 Michelle Yang. [facility] [place], [place], [address], [place]. tel:[phone] Referring Provider: Celia Briseno, [facility] [place], [address]. tel:[phone] OFFICE/OUTPA TIENT VISIT [facility], [address] [facility] [place], [place], [address], tel:[phone] [facility] internal transfer (chief complaint)severo betes (chief complaint)hyp ertension (chief complaint)leilani ght gain (chief complaint)dep ression (chief complaint)dony ng (chief complaint) Type 2 diabetes mellitus without complication sEssential (primary) hypertension Mixed hyperlipidem iaSchizoaffe ctive disorder, bipolar typeBody mass index (BMI) 45.0-49.9, adult 9 Ricci Metzger. [address] [place] [address], [id number], . tel:[phone] Referring Provider: Domenica Wynne, [address] [place] [address], [address]. tel:[phone] OFFICE/OUTPA TIENT VISIT [facility], [address] [facility] [place], [place], [address], [place] tel:[phone] [facility] Schizoaffect alessandra disorder, bipolar typeAdjustme nt disorder with mixed anxiety and depressed moodIntermit tent Explosive DisorderType 2 diabetes with hyperglycemi a 9 Michelle Yang. [address] [place] [address], [id number], [place]. tel:[phone] Referring Provider: Celia Briseno, [address] [place], [address]. tel:[phone] OFFICE/OUTPA TIENT VISIT [facility], [address] [facility] [place], [place], [address], [place] tel:[phone] [facility] follow up (chief complaint)ear cleaning (chief complaint) Type 2 diabetes mellitus with hypoglycemia without comaBilatera l wax in ears 9 Jasmyne Marcial. [address], [place], [place], [address], [place]. tel:[phone] Referring Provider: Aggie Powell, [address], [place], [address]. tel:[phone] OFFICE/OUTPA TIENT VISIT EST [facility], [address] [facility] , [place], [place], [address], [place] tel:[phone] [facility] fci physical (chief complaint) Body mass index (BMI) 45.0-49.9, [facility]En[facility] for other general examinationO ther chcf (current) drug therapyEncou nter for screening for respiratory tuberculosis 9 Jasmyne Marcial. [address], [address], [place]. tel:[phone] Referring Provider: Aggie Powell, [address], [place], [address]. tel:[phone] NURSE ENCOUNTER, LICENSED [facility], [address] [facility] , [place], [place], [address], [place] tel:[phone] [facility] Other chcf (current) drug therapy 9 Michelle Yang. [address] [place], [place], [address], [place]. tel:[phone] Referring Provider: Celia Briseno, [address] [place], [address]. tel:[phone] OFFICE/OUTPA TIENT VISIT EST [facility], [address] [facility] , [place], [place], [address], [place] tel:[phone] [facility] Type 2 diabetes with hyperglycemi aAdjustment disorder with mixed anxiety and depressed moodIntermit tent Explosive DisorderSchi zoaffective disorder, bipolar type 9 Michelle Yang. [address] [place], [place], [address], [place]. tel:[phone] Referring Provider: Celia Briseno, [address] [place], [address]. tel:[phone] [facility], [address] [facility] , [place], [place], [address], [place] tel:[phone] [facility] for dental exam and cleaning w abnormal findingsDepo sits [accretions] on teeth 9 Sj Rowe. [address] [place], [place], [address], [place]. tel:[phone] Consulting Provider: Chastity Mackenzie, [address] [place] [address], [address]. tel:[phone] OFFICE/OUTPA TIENT VISIT EST [facility], [address] [facility] , [place], [place], [address], [place] tel:[phone] [facility] Type 2 diabetes with hyperglycemi aIntermitten t Explosive DisorderSchi zoaffective disorder, bipolar type 9 Michelle Yang. [address] [place] [address], [id number], [place]. tel:[phone] Referring Provider: Celia Briseno, [address] [place] [address], [address]. tel:[phone] PSYTX PT&/FAMILY 30 MINUTES [facility], [address] [facility] , [place], [place], [address], [place] tel:[phone] [facility] Moderate intellectual disabilities Intermittent Explosive DisorderMajo r depressive disorder, recurrent, moderate 9 Heather Hay. [address] [place] [address], [id number], [place]. tel:[phone] Referring Provider: Bharti Leo, [address] [place] [address], [address]. tel:[phone] [facility], [address] [facility] , [place], [place], [address], [place] tel:[phone] [facility] LAB and BP Check (chief complaint) Hyperlipidem iaHypertensi onOther specified abnormal findings of blood chemistry 9 Jasmyne Marcial. [address], [place], [place], [address], [place]. tel:[phone] Referring Provider: Aggei Powell, [address], [place], [address]. tel:[phone] OFFICE/OUTPA TIENT VISIT EST [facility], [address] [facility] , [place], [place], [address], [place] tel:[phone] [facility] diabetes (chief complaint)Hyp ertension (chief complaint)hyp erlipidemia (chief complaint) Type 2 diabetes with hyperglycemi aHypertensio nHyperlipide miaBilateral wax in ears March-2 0-201 9 Jasmyne Marcial. [address], [place], [place], [address], [place]. tel:[phone] Referring Provider: Aggie Powell, [address], [place], [address]. tel:[phone] OFFICE/OUTPA TIENT VISIT EST [facility], [address] [facility] , [place], [place], [address], [place] tel:[phone] [facility] Moderate intellectual disabilities Intermittent Explosive DisorderMajo r depressive disorder, recurrent, moderate May-0 1-201 9 Michelle Yang. [address] [place] [address], [id number], [place]. tel:[phone] Referring Provider: Celia Briseno, [address] [place] [address], [address]. tel:[phone] PSYCH DIAGNOSTIC EVALUATION [facility], [address] [facility] [place], [place], [address], [place] tel:[phone] [facility] Moderate intellectual disabilities Intermittent Explosive DisorderMajo r depressive disorder, recurrent, moderate Apr-0 8-201 9 Heather Bharti. [address] [place] [address], [id number], [place]. tel:[phone] OFFICE/OUTPA TIENT VISIT EST [facility], [address] [facility] [place], [place], [address], [place] tel:[phone] [facility] Schizoaffect alessandra disorder, bipolar typeModerate intellectual disabilityIn termittent Explosive Disorder Apr- 9 Michelle Yang. [address] [place], [place], [address], [place]. tel:[phone] NURSE ENCOUNTER, LICENSED [facility], [address] [facility] , [place], [place], [address], [place] tel:[phone] [facility] Other chcf (current) drug therapy Feb- 9 Michelle Yang. [address] [place], [place], [address], [place]. tel:[phone] OFFICE/OUTPA TIENT VISIT EST [facility], [address] [facility] , [place], [place], [address], [place] tel:[phone] [facility] congested (chief complaint)sor e throat (chief complaint) Upper respiratory infection 9 Jasmyne Marcial. [address], [place], [place], [address], [place]. tel:[phone] PSYCH DIAG EVAL W/MED SRVCS [facility], [address] [facility] , [place], [place], [address], [place] tel:[phone] [facility] Intermittent Explosive DisorderMode rate intellectual disabilitySc hizoaffectiv e disorder, bipolar typeAdjustme nt disorder with depressed mood 9 Michelle Yang. [address] [place], [place], [address], [place]. tel:[phone] [facility], [address] [facility] , [place], [place], [address], [place] tel:[phone] [facility] Intermittent Explosive DisorderMode rate intellectual disabilitySc hizoaffectiv e disorder, bipolar type 9 Michelle Zepedahnaz. [address] [place], [place], [address], [place]. tel:[phone] NURSE ENCOUNTER, LICENSED [facility], [address] [facility] [place], [place], [address], [place] tel:[phone] [facility] BP Check and labs (chief complaint) Hypertension Type 2 diabetes with hyperglycemi a 9 Jasmyne Marcial. [address], [place], [place], [address], [place]. tel:[phone] OFFICE/OUTPA TIENT VISIT EST [facility], [address] [facility] , [place], [place], [address], [place] tel:[phone] [facility] diabetes (chief complaint)ear wax in ears (chief complaint) Type 2 diabetes with hyperglycemi aModerate intellectual disabilityOt her chcf (current) drug therapyBilat eral wax in ears 9 Jasmyne Marcial. [address], [place], [place], [address], [place]. tel:[phone] NURSE ENCOUNTER, LICENSED [facility], [address] [facility] , [place], [place], [address], [place] tel:[phone] [facility] flu shot (chief complaint) Encounter for immunization 8 Jasmyne Marcial. [address], [address], [place]. tel:[phone] NURSE ENCOUNTER, LICENSED [facility], [address] [facility] , [place], [place], [address], [place] tel:[phone] [facility] Blood pressure check (chief complaint) Hypertension 8 Jasmyne Marcial. [address], [address], [place]. tel:[phone] OFFICE/OUTPA TIENT VISIT EST [facility], [address] [facility] , [place], [place], [address], [place] tel:[phone] [facility] Hypertension (chief complaint) Hypertension 2 8 Jasmyne Marcial. [address], [address], [place]. tel:[phone] PSYTX PT&/FAMILY 30 MINUTES [facility], [address] [facility] , [place], [place], [address], [place] tel:[phone] [facility] Intermittent Explosive DisorderMode rate intellectual disabilitySc hizoaffectiv e disorder, bipolar type 8 Heather Hay. [address] [place], [place], [address], [place]. tel:[phone] OFFICE/OUTPA TIENT VISIT EST [facility], [address] [facility] , [place], [place], [address], [place] tel:[phone] [facility] ER f/u (chief complaint)Ear lavage (chief complaint)leilani ght loss (chief complaint) FaintingType 2 diabetes with hyperglycemi aBilateral wax in ears Aug- 8 Nold Aggie. [address], [address], [place]. tel:[phone] [facility], [address] [facility] [place], [place], [address], [place] tel:[phone] [facility] No Information 8 Nold Aggie. [address], [address], [place]. tel:[phone] NURSE ENCOUNTER, LICENSED [facility], [address] [facility] [place], [place], [address], [place] tel:[phone] [facility] BP Check (chief complaint) Hypertension Jul-2 8 Nold Aggie. [address], [address], [place]. tel:[phone] OFFICE/OUTPA TIENT VISIT EST [facility], [address] [facility] [place], [place], [address], [place] tel:[phone] [facility] hypertension (chief complaint)Kno ts behind both ears (chief complaint)TB test (chief complaint) Hypertension Lymphadenopa thyEncounter for screening for respiratory TB Jul- 8 Nold Aggie. [address], [place], [place], [address], [place]. tel:[phone] PSYTX PT&/FAMILY 30 MINUTES [facility], [address] [facility] [place], [place], [address], [place] tel:[phone] [facility] Intermittent Explosive DisorderMode rate intellectual disabilitySc hizoaffectiv e disorder, bipolar type Sep- 8 Heather Hay. [address] [place], [place], [address], [place]. tel:[phone] NURSE ENCOUNTER, LICENSED [facility], [address] [facility] , [place], [place], [address], [place] tel:[phone] [facility] Other terminal worker (current) drug therapy Sep-0 8 No Information [facility], [address] [facility] [place], [place], [address], [place] tel:[phone] [facility] Partial loss of teeth, unspecified cause, class IV 8 Sj Rowe. [address] [place], [place], [address], [place]. tel:[phone] [facility], [address] [facility] [place], [place], [address], [place] tel:[phone] [facility] Encounter for dental exam and cleaning w abnormal findings 8 Sj Rowe. [address] [place] [address], [address], [place]. tel:[phone] OFFICE/OUTPA TIENT VISIT EST [facility], [address] [facility] , [place], [place], [address], [place] tel:[phone] [facility] Follow Up of HTN (chief complaint)PPD (chief complaint)severo betes (chief complaint) Hypertension Encounter for screening for respiratory TBType 2 diabetes with hyperglycemi a 8 Jasmyne Marcial. [address], [place], [place], [address], [place]. tel:[phone] PSYTX PT&/FAMILY 30 MINUTES [facility], [address] [facility] , [place], [place], [address], [place] tel:[phone] [facility] Intermittent Explosive DisorderMode rate intellectual disabilitySc hizoaffectiv e disorder, bipolar type 8 Heather Hay. [address] [place], [place], [address], [place]. tel:[phone] OFFICE/OUTPA TIENT VISIT EST [facility], [address] [facility] [place], [place], [address], [place] tel:[phone] [facility] Adjustment disorder with mixed anxiety and depressed moodADHDInte rmittent Explosive DisorderMode rate intellectual disabilitySc hizoaffectiv e disorder, bipolar type 8 No Information OFFICE/OUTPA TIENT VISIT EST [facility], [address] [facility] , [place], [place], [address], [place] tel:[phone] [facility] Er follow up (chief complaint)severo betic compression sock (chief complaint) Dehydration 0- 8 Jasmyne Marcial. [address], [place], [place], [address], [place]. tel:[phone] PSYTX PT&/FAMILY 30 MINUTES [facility], [address] [facility] , [place], [place], [address], [place] tel:[phone] [facility] Adjustment disorder with mixed anxiety and depressed moodADHDInte rmittent Explosive DisorderMode rate intellectual disabilitySc hizoaffectiv e disorder, bipolar type 8 Heather Hay. [address] [place] [address], [address], [place]. tel:[phone] [facility], [address] [facility] , [place], [place], [address], [place] tel:[phone] [facility] Adjustment disorder with mixed anxiety and depressed moodADHDInte rmittent Explosive DisorderMode rate intellectual disabilitySc hizoaffectiv e disorder, bipolar type 8 No Information [facility], [address] [facility] , [place], [place], [address], [place] tel:[phone] [facility] Dental caries, unspecified 8 Sj Rowe. [address] [place] [address], [address], [place]. tel:[phone] PSYTX PT&/FAMILY 30 MINUTES [facility], [address] [facility] , [place], [place], [address], [place] tel:[phone] [facility] Adjustment disorder with mixed anxiety and depressed moodADHDInte rmittent Explosive DisorderMode rate intellectual disabilitySc hizoaffectiv e disorder, bipolar type 0 8 Heather Bharti. [address] [place], [place], [address], [place]. tel:[phone] OFFICE/OUTPA TIENT VISIT [facility], [address] [facility] , [place], [place], [address], [place] tel:[phone] [facility] Adjustment disorder with mixed anxiety and depressed moodADHDInte rmittent Explosive DisorderMode rate intellectual disabilitySc hizoaffectiv e disorder, bipolar type Feb- 8 No Information [facility], [address] [facility] , [place], [place], [address], [place] tel:[phone] [facility] Encounter for dental exam and cleaning w abnormal findingsDepo sits [accretions] on teeth 8 [place] Jae. [address] [place], [place], [address], [place]. tel:[phone] OFFICE/OUTPA TIENT VISIT [facility], [address] [facility] , [place], [place], [address], [place] tel:[phone] [facility] diabetes (chief complaint)hyp erlipidemia (chief complaint) Type 2 diabetes with hyperglycemi aHypertensio nHyperlipide lamar 8 Jasmyne Marcial. [address], [place], [place], [address], [place]. tel:[phone] OFFICE/OUTPA TIENT VISIT [facility], [address] [facility] , [place], [place], [address], [place] tel:[phone] [facility] Needs hearing test (chief complaint)Isra vo annual paperwork for home completed (chief complaint) Hearing lossPartial loss of teeth, unspecified cause, class I 8 Jasmyne Marcial. [address], [address], [place]. tel:[phone] [facility], [address] [facility] [place], [place], [address], [place] tel:[phone] [facility] No Information Feb-0 8 Jasmyne Marcial. [address], [place], [address], [place]. tel:[phone] OFFICE/OUTPA TIENT VISIT EST [facility], [address] [facility] , [place], [place], [address], [place] tel:[phone] [facility] hypertension (chief complaint) Hyperlipidem iaHypertensi onOther chcf (current) drug therapy 8 Notracee Marcial. [address], [place], [place], [address], [place]. tel:[phone] OFFICE/OUTPA TIENT VISIT [facility], [address] [facility] , [place], [place], [address], [place] tel:[phone] [facility] Intermittent Explosive DisorderMode rate intellectual disabilitySc hizoaffectiv e disorder, bipolar type 8 No Information PSYCH DIAGNOSTIC EVALUATION [facility], [address] [facility] , [place], [place], [address], [place] tel:[phone] [facility] Major depressive disorder, recurrent, unspecified 8 Heatherwoo Hay. [address] [place] [address], [address], [place]. tel:[phone] NURSE ENCOUNTER LICENSED W/INJECTION [facility], [address] [facility] , [place], [place], [address], [place] tel:[phone] [facility] Schizoaffect alessandra disorder, bipolar type 8 No Information OFFICE/OUTPA TIENT VISIT [facility], [address] [facility] , [place], [place], [address], [place] tel:[phone] [facility] Schizoaffect alessandra disorder, bipolar typeIntermit tent Explosive DisorderADHD Adjustment disorder with mixed anxiety and depressed moodType 2 diabetes with hyperglycemi aOther terminal worker (current) drug therapy 8 No Information OFFICE/OUTPA TIENT VISIT [facility], [address] [facility] , [place], [place], [address], [place] tel:[phone] [facility] hosp f/u dehydration (chief complaint) Dehydration 8 Notracee Marcial. [address], [address], [place]. tel:[phone] OFFICE/OUTPA TIENT VISIT [facility], [address] [facility] , [place], [place], [address], [place] tel:[phone] [facility] Hospital follow up (chief complaint) DehydrationF aintingType 2 diabetes w/ hyperglycemi a 8 Notracee Marcial. [address], [place], [address], [place]. tel:[phone] OFFICE/OUTPA TIENT VISIT [facility], [address] [facility] , [place], [place], [address], [place] tel:[phone] [facility] sore throat (chief complaint) PharyngitisD ysphagia 7 Notracee Marcial. [address], [address], [place]. tel:[phone] OFFICE/OUTPA TIENT VISIT [facility], [address] [facility] , [place], [place], [address], [place] tel:[phone] [facility] sore throat (chief complaint) PharyngitisC ough 7 Notracee Marcial. [address], [place], [address], [place]. tel:[phone] [facility], [address] [facility] , [place], [place], [address], [place] tel:[phone] [facility] Schizoaffect alessandra disorder, bipolar typeIntermit tent Explosive DisorderADHD Adjustment disorder with mixed anxiety and depressed moodType 2 diabetes with hyperglycemi a 7 No Information [facility], [address] [facility] , [place], [place], [address], [place] tel:[phone] [facility] Schizoaffect alessandra disorder, bipolar typeADHDType 2 diabetes with hyperglycemi aIntermitten t Explosive DisorderAdju stment disorder with mixed anxiety and depressed mood 7 No Information OFFICE/OUTPA TIENT VISIT [facility], [address] [facility] , [place], [place], [address], [place] tel:[phone] [facility] bilat ear pain, dark drainage (chief complaint) Allergy due to pollen Jasmyne Marcial. [address], [address], [place]. tel:[phone] NURSE ENCOUNTER, LICENSED [facility], [address] [facility] , [place], [place], [address], [place] tel:[phone] [facility] PPD Read (chief complaint) Encounter for screening for respiratory TB Jasmyne Marcial. [address], [place], [place], [address], [place]. tel:[phone] PREV VISIT EST AGE 18-39 [facility], [address] [facility] , [place], [place], [address], [place] tel:[phone] [facility] Yearly physical (chief complaint)com fort of home would like labs and tb with a physical/ (chief complaint)Mil d intellectual disabiliti (chief complaint)hyp erlipidemia (chief complaint)severo betes (chief complaint) Type 2 diabetes with hyperglycemi aHyperlipide miaEncounter for screening for respiratory TBObesityEnc ounter for other general examination Jasmyne Marcial. [address], [place], [place], [address], [place]. tel:[phone] OFFICE/OUTPA TIENT VISIT EST [facility], [address] [facility] , [place], [place], [address], [place] tel:[phone] [facility] Adjustment disorder with mixed anxiety and depressed moodADHDMode rate intellectual disabilityIn termittent Explosive DisorderSchi zophrenia, unspecifiedS chizoaffecti ve disorder, bipolar type No Information OFFICE/OUTPA TIENT VISIT EST [facility], [address] [facility] , [place], [place], [address], [place] tel:[phone] [facility] edema BLE (chief complaint) EdemaChest pain Jasmyne Marcial. [address], [place], [place], [address], [place]. tel:[phone] [facility], [address], [place], [place], [address], [place] tel:[phone] [facility] No Information 0 8-201 7 Nold Aggie. [address], [place], [place], [address], [place]. tel:[phone] [facility], [address], [place], [place], [address], [place] tel:[phone] [facility] No Information [id number] 0 [address]. [address], [place], [place], [id number], [place]. tel:[phone] Family History Family Member Type Diagnosis Age At Onset No Information Immunizations Vaccine Date Status Comments Hep B (adult, 3 dose) administered Source : New Immunization Record Hep B (adult, 3 dose) administered Source : New Immunization Record Hep B (adult, 3 dose) administered Source : New Immunization Record Flucelvax Quad [PF] (syringe ) >=4 yrs administered Source: New Immuniza tion Record Flucelvax Quad [PF] (syringe ) >=4 yrs administered Source: New Immuniza tion Record Influenza administered Source: New Imm unization Record Influenza administered Source: New Imm unization Record Hep B administered Source: New Imm unization Record Payers Payer name Insurance type Covered alliance party ID Authoriza tion(s) National Govt Services MB [id number] [facility] [place] [id number] National Govt Services [id number] [facility] [place] [id number] [facility] Govt [facility] [id number] [facility] [place] [id number] National Govt [facility] [id number] [facility] [place] MC [id number] National Govt Services [id number] [facility] [place] MC [id number] [facility] Medicare [facility] [id number] Social History Type Description Quantity Date Captured Comments Alcohol Use Details Unknown Caffeine Use Details Unknown Tobacco Use Status No Information Smoking Status No Information Sex Male Sexual Orientation Straight or heterosexual Gender Identity Male Chief Complaint And Reason For Visit No Information Reason For Referral Reason For Referral No Information Plan Of Treatment Date Type Action Status Goal Foot exam. Due on due Goal GFR. Due on due Goal Hemoglobin A1C. Due on due Goal Tdap. Due on due Goal Td vaccine. Due on due Goal Dilated eye exam. Due on Jun due Goal Urine microalbumin. Due on A due Goal Dental exam. Due on due Goal Pneumococcal vac cine. Due on due Goal Lipid panel. Due on due Goal ECG. Due on due Goal Urinalysis. Due on due Goal Influenza vaccine. Due on due Goal Depression scree lauryn. Due on due Goal Tdap. Due on due Goal Foot exam. Due on due Goal Hemoglobin A1C. Due on due Goal Dental exam. Due on due Goal Td vaccine. Due on due Goal Urine microalbumin. Due on due Goal GFR. Due on due Goal Dilated eye exam. Due on Apr due Goal Urinalysis. Due on due Goal Influenza vaccine. Due on Oc due Goal Lipid panel. Due on due Goal ECG. Due on due Goal Pneumococcal vac cine. Due on due Goal Depression scree lauryn. Due on due Goal Depression scree lauryn. Due on due Goal ECG. Due on due Goal Lipid panel. Due on due Goal Influenza vaccine. Due on due Goal Urinalysis. Due on due Goal Pneumococcal vac cine. Due on due Goal Dilated eye exam. Due on Apr due Goal Hemoglobin A1C. Due on due Goal Dental exam. Due on due Goal Foot exam. Due on due Goal Urine microalbumin. Due on due Goal Tdap. Due on due Goal Td vaccine. Due on due Goal GFR. Due on due Goal GFR. Due on due Goal Hemoglobin A1C. Due on due Goal Dental exam. Due on due Goal Dilated eye exam. Due on March due Goal Foot exam. Due on due Goal Tdap. Due on due Goal Urine microalbumin. Due on due Goal Td vaccine. Due on due Goal Urinalysis. Due on due Goal Influenza vaccine. Due on Oc due Goal Pneumococcal vac cine. Due on due Goal ECG. Due on due Goal Lipid panel. Due on due Goal Depression scree lauryn. Due on due Goal GFR. Due on due Goal Hemoglobin A1C. Due on due Goal Foot exam. Due on due Goal Dental exam. Due on due Goal Dilated eye exam. Due on March due Goal Urine microalbumin. Due on due Goal Td vaccine. Due on due Goal ECG. Due on due Goal Pneumococcal vac cine. Due on due Goal Tdap. Due on due Goal Urinalysis. Due on due Goal Lipid panel. Due on due Goal Depression scree lauryn. Due on due Goal Influenza vaccine. Due on Oc due Goal Lifestyle education regardin g diet completed Goal Depression scree lauryn. Due on due Goal Hemoglobin A1C. Due on due Goal Dental exam. Due on due Goal Dilated eye exam. Due on Feb due Goal Lipid panel. Due on due Goal Foot exam. Due on due Goal Urine microalbumin. Due on A due Goal Pneumococcal vac cine. Due on due Goal GFR. Due on due Goal Tdap. Due on due Goal ECG. Due on due Goal Td vaccine. Due on due Goal Influenza vaccine. Due on due Goal Urinalysis. Due on due Goal Tdap. Due on due Goal GFR. Due on due Goal Dental exam. Due on due Goal Foot exam. Due on due Goal Dilated eye exam. Due on Feb due Goal Hemoglobin A1C. Due on due Goal Urine microalbumin. Due on A due Goal ECG. Due on due Goal Pneumococcal vac cine. Due on due Goal Urinalysis. Due on due Goal Influenza vaccine. Due on due Goal Depression scree lauryn. Due on due Goal Td vaccine. Due on due Goal Lipid panel. Due on due Goal Td vaccine. Due on due Goal Pneumococcal vac cine. Due on due Goal Lipid panel. Due on due Goal Hemoglobin A1C. Due on due Goal Urinalysis. Due on due Goal Tdap. Due on due Goal ECG. Due on due Goal Influenza vaccine. Due on due Goal Depression scree lauryn. Due on due Goal Urine microalbumin. Due on due Goal Dental exam. Due on due Goal GFR. Due on due Goal Foot exam. Due on due Goal Dilated eye exam. Due on Jan due Goal Dental exam. Due on due Goal Dilated eye exam. Due on Jan due Goal Foot exam. Due on due Goal Urinalysis. Due on due Goal Depression scree lauryn. Due on due Goal Urine microalbumin. Due on due Goal Influenza vaccine. Due on due Goal ECG. Due on due Goal Lipid panel. Due on due Goal Tdap. Due on due Goal GFR. Due on due Goal Td vaccine. Due on due Goal Hemoglobin A1C. Due on due Goal Foot exam. Due on due Goal Urine microalbumin. Due on M due Goal Tdap. Due on due Goal Dilated eye exam. Due on Jan due Goal Td vaccine. Due on due Goal Dental exam. Due on due Goal GFR. Due on due Goal Hemoglobin A1C. Due on due Goal ECG. Due on due Goal Urinalysis. Due on due Goal Lipid panel. Due on due Goal Influenza vaccine. Due on due Goal Pneumococcal vac cine. Due on due Goal Depression scree lauryn. Due on due Goal Influenza vaccine. Due on due Goal Tdap. Due on due Goal Td vaccine. Due on due Goal Depression scree lauryn. Due on due Goal ECG. Due on due Goal Lipid panel. Due on due Goal Urinalysis. Due on due Goal Hemoglobin A1C. Due on due Goal Foot exam. Due on due Goal Urine microalbumin. Due on M due Goal Dilated eye exam. Due on Jan due Goal Dental exam. Due on due Goal GFR. Due on due Goal Influenza vaccine. Due on due Goal Depression scree lauryn. Due on due Goal Dilated eye exam. Due on Dec due Goal Dental exam. Due on due Goal Hemoglobin A1C. Due on due Goal Urinalysis. Due on due Goal Lipid panel. Due on due Goal Urine microalbumin. Due on due Goal Foot exam. Due on due Goal Td vaccine. Due on due Goal GFR. Due on due Goal Tdap. Due on due Goal ECG. Due on due Goal Foot exam. Due on due Goal Hemoglobin A1C. Due on due Goal Dental exam. Due on due Goal Urine microalbumin. Due on due Goal GFR. Due on due Goal Influenza vaccine. Due on due Goal Tdap. Due on due Goal ECG. Due on due Goal Dilated eye exam. Due on Nov due Goal Depression scree lauryn. Due on due Goal Urinalysis. Due on due Goal Td vaccine. Due on due Goal Lipid panel. Due on due Goal Pneumococcal vac cine. Due on due Goal Foot exam. Due on due Goal Dilated eye exam. Due on Nov due Goal Urine microalbumin. Due on due Goal Dental exam. Due on due Goal Hemoglobin A1C. Due on due Goal ECG. Due on due Goal Tdap. Due on due Goal Influenza vaccine. Due on due Goal Depression scree lauryn. Due on due Goal Td vaccine. Due on due Goal Urinalysis. Due on due Goal GFR. Due on due Goal Lipid panel. Due on due Goal Urine microalbumin. Due on due Goal Dental exam. Due on due Goal Hemoglobin A1C. Due on due Goal GFR. Due on due Goal Foot exam. Due on due Goal Depression scree lauryn. Due on due Goal Pneumococcal vac cine. Due on due Goal Urinalysis. Due on due Goal ECG. Due on due Goal Lipid panel. Due on due Goal Influenza vaccine. Due on due Goal Td vaccine. Due on due Goal Tdap. Due on due Goal Dilated eye exam. Due on Nov due Goal Td vaccine. Due on due Goal Foot exam. Due on 0 due Goal Urine microalbumin. Due on due Goal Hemoglobin A1C. Due on due Goal GFR. Due on due Goal Dental exam. Due on due Goal Dilated eye exam. Due on Oct due Goal Urinalysis. Due on due Goal Depression scree lauryn. Due on due Goal Tdap. Due on due Goal Lipid panel. Due on due Goal Pneumococcal vac cine. Due on due Goal ECG. Due on due Goal Influenza vaccine. Due on due Goal Hemoglobin A1C. Due on due Goal Td vaccine. Due on due Goal GFR. Due on due Goal Urine microalbumin. Due on due Goal Foot exam. Due on 0 due Goal Dilated eye exam. Due on Oct due Goal Dental exam. Due on due Goal Depression scree lauryn. Due on due Goal Tdap. Due on due Goal Influenza vaccine. Due on Oc due Goal ECG. Due on due Goal Lipid panel. Due on due Goal Urinalysis. Due on due Goal Influenza vaccine. Due on Oc due Goal Pneumococcal vac cine. Due on due Goal Td vaccine. Due on due Goal Urinalysis. Due on due Goal GFR. Due on due Goal Depression scree lauryn. Due on due Goal Lipid panel. Due on due Goal Tdap. Due on due Goal Urine microalbumin. Due on due Goal Foot exam. Due on 0 due Goal Dilated eye exam. Due on Oct due Goal Dental exam. Due on due Goal Hemoglobin A1C. Due on due Goal ECG. Due on due Goal Lifestyle education regardin g diet completed Goal Dietary manageme nt education, guidance, and counseling completed Goal Lifestyle education regardin g diet completed Goal Dietary manageme nt education, guidance, and counseling completed Goal Lifestyle education regardin g diet completed Goal Foot exam. Due on 0 due Goal Urine microalbumin. Due on due Goal Dilated eye exam. Due on March due Goal GFR. Due on due Goal Tdap. Due on due Goal Pneumococcal vac cine. Due on due Goal Td vaccine. Due on due Goal Dental exam. Due on due Goal Depression scree lauryn. Due on due Goal Influenza vaccine. Due on due Goal ECG. Due on due Goal Urine microalbumin. Due on A due Goal Foot exam. Due on 0 due Goal Dental exam. Due on due Goal GFR. Due on due Goal Depression scree lauryn. Due on due Goal Tdap. Due on due Goal Dilated eye exam. Due on March due Goal Td vaccine. Due on due Goal Influenza vaccine. Due on due Goal Pneumococcal vac cine. Due on due Goal ECG. Due on due Goal GFR. Due on due Goal Pneumococcal vac cine. Due on due Goal Foot exam. Due on 0 due Goal Urine microalbumin. Due on A due Goal Dilated eye exam. Due on March due Goal Tdap. Due on due Goal Dental exam. Due on due Goal ECG. Due on due Goal Influenza vaccine. Due on due Goal Td vaccine. Due on due Goal Depression scree lauryn. Due on due Goal Urine microalbumin. Due on A due Goal Dental exam. Due on due Goal GFR. Due on due Goal Foot exam. Due on 0 due Goal Dilated eye exam. Due on March due Goal ECG. Due on due Goal Td vaccine. Due on due Goal Depression scree lauryn. Due on due Goal Tdap. Due on due Goal Pneumococcal vac cine. Due on due Goal Influenza vaccine. Due on due Goal Dilated eye exam. Due on March due Goal Foot exam. Due on 0 due Goal Tdap. Due on due Goal Td vaccine. Due on due Goal Influenza vaccine. Due on due Goal ECG. Due on due Goal Pneumococcal vac cine. Due on due Goal Depression scree lauryn. Due on due Goal Urine microalbumin. Due on due Goal GFR. Due on due Goal Dental exam. Due on due Goal GFR. Due on due Goal Urine microalbumin. Due on due Goal Dental exam. Due on due Goal ECG. Due on due Goal Depression scree lauryn. Due on due Goal Td vaccine. Due on due Goal Foot exam. Due on 0 due Goal Dilated eye exam. Due on March due Goal Influenza vaccine. Due on due Goal Tdap. Due on due Goal Pneumococcal vac cine. Due on due Goal Td vaccine. Due on due Goal Tdap. Due on due Goal Influenza vaccine. Due on due Goal ECG. Due on due Goal Foot exam. Due on 0 due Goal Urine microalbumin. Due on due Goal Dilated eye exam. Due on March due Goal GFR. Due on due Goal Dental exam. Due on due Goal Depression scree lauryn. Due on due Goal Pneumococcal vac cine. Due on due Goal Dilated eye exam. Due on March due Goal Influenza vaccine. Due on due Goal Td vaccine. Due on 19 due Goal Foot exam. Due on 0 due Goal Urine microalbumin. Due on due Goal Dental exam. Due on due Goal Tdap. Due on due Goal ECG. Due on due Goal GFR. Due on due Goal Depression scree lauryn. Due on due Goal Urine microalbumin. Due on due Goal ECG. Due on due Goal Foot exam. Due on 0 due Goal Tdap. Due on due Goal Dilated eye exam. Due on March due Goal Depression scree lauryn. Due on due Goal Pneumococcal vac cine. Due on due Goal Influenza vaccine. Due on due Goal Dental exam. Due on 019 due Goal GFR. Due on due Goal Td vaccine. Due on 19 due Goal Influenza vaccine. Due on due Goal Dental exam. Due on 018 due Goal Foot exam. Due on 9 due Goal Urine microalbumin. Due on due Goal Dilated eye exam. Due on March due Goal Pneumococcal vac cine. Due on due Goal Td vaccine. Due on 18 due Goal ECG. Due on due Goal Tdap. Due on due Goal Depression scree lauryn. Due on due Goal GFR. Due on due Goal Dental exam. Due on due Goal Foot exam. Due on 9 due Goal Urine microalbumin. Due on N due Goal Influenza vaccine. Due on due Goal Tdap. Due on due Goal ECG. Due on due Goal Dilated eye exam. Due on March due Goal Pneumococcal vac cine. Due on due Goal GFR. Due on due Goal Depression scree lauryn. Due on due Goal Td vaccine. Due on due Goal Td vaccine. Due on 18 due Goal Dilated eye exam. Due on March due Goal Pneumococcal vac cine. Due on due Goal GFR. Due on due Goal Depression scree lauryn. Due on due Goal Foot exam. Due on due Goal Influenza vaccine. Due on due Goal Urine microalbumin. Due on due Goal Tdap. Due on due Goal Dental exam. Due on due Goal ECG. Due on due Goal Urine microalbumin. Due on due Goal Influenza vaccine. Due on due Goal ECG. Due on due Goal Dental exam. Due on due Goal Dilated eye exam. Due on March due Goal Foot exam. Due on due Goal GFR. Due on due Goal Td vaccine. Due on 18 due Goal Tdap. Due on due Goal Depression scree lauryn. Due on due Goal Dilated eye exam. Due on March due Goal GFR. Due on due Goal Urine microalbumin. Due on O due Goal Foot exam. Due on due Goal Dental exam. Due on due Goal ECG. Due on due Goal Tdap. Due on due Goal Td vaccine. Due on 18 due Goal Depression scree lauryn. Due on due Goal Influenza vaccine. Due on Oc due Goal Pneumococcal vac cine. Due on due Goal Tdap. Due on due Goal Dilated eye exam. Due on March due Goal Depression scree lauryn. Due on due Goal Foot exam. Due on 9 due Goal Td vaccine. Due on 18 due Goal Influenza vaccine. Due on Oc due Goal GFR. Due on due Goal Dental exam. Due on due Goal Urine microalbumin. Due on O due Goal ECG. Due on due Goal GFR. Due on due Goal ECG. Due on due Goal Pneumococcal vac cine. Due on due Goal Urine microalbumin. Due on S due Goal Dilated eye exam. Due on March due Goal Dental exam. Due on due Goal Influenza vaccine. Due on Oc due Goal Foot exam. Due on 9 due Goal Depression scree lauryn. Due on due Goal Tdap. Due on due Goal Td vaccine. Due on due Goal Dental exam. Due on due Goal Dilated eye exam. Due on March due Goal Pneumococcal vac cine. Due on due Goal Td vaccine. Due on due Goal Foot exam. Due on 9 due Goal Influenza vaccine. Due on Oc due Goal Urine microalbumin. Due on S due Goal GFR. Due on due Goal Depression scree lauryn. Due on due Goal Tdap. Due on due Goal ECG. Due on due Goal Influenza vaccine. Due on Oc due Goal Dilated eye exam. Due on March due Goal Urine microalbumin. Due on due Goal Foot exam. Due on 9 due Goal Dental exam. Due on due Goal GFR. Due on due Goal Depression scree lauryn. Due on due Goal Tdap. Due on due Goal ECG. Due on due Goal Td vaccine. Due on due Goal Depression scree lauryn. Due on due Goal Foot exam. Due on 9 due Goal Td vaccine. Due on due Goal Tdap. Due on due Goal Dental exam. Due on due Goal GFR. Due on due Goal Dilated eye exam. Due on March due Goal Urine microalbumin. Due on S due Goal ECG. Due on due Goal Pneumococcal vac cine. Due on due Goal Influenza vaccine. Due on Oc due Goal Td vaccine. Due on 18 due Goal GFR. Due on due Goal Pneumococcal vac cine. Due on due Goal Tdap. Due on due Goal Dental exam. Due on due Goal Depression scree lauryn. Due on due Goal Urine microalbumin. Due on A due Goal Foot exam. Due on 9 due Goal Dilated eye exam. Due on March due Goal ECG. Due on due Goal Influenza vaccine. Due on Oc due Goal Influenza vaccine. Due on Oc due Goal Foot exam. Due on 9 due Goal Urine microalbumin. Due on A due Goal ECG. Due on due Goal Dilated eye exam. Due on March due Goal Depression scree lauryn. Due on due Goal Td vaccine. Due on 18 due Goal GFR. Due on due Goal Tdap. Due on due Goal Dental exam. Due on due Goal Depression scree lauryn. Due on due Goal ECG. Due on due Goal Tdap. Due on due Goal Urine microalbumin. Due on due Goal GFR. Due on due Goal Td vaccine. Due on 18 due Goal Pneumococcal vac cine. Due on due Goal Dental exam. Due on due Goal Dilated eye exam. Due on March due Goal Foot exam. Due on due Goal Influenza vaccine. Due on due Goal Tdap. Due on due Goal GFR. Due on due Goal Dilated eye exam. Due on March due Goal Urine microalbumin. Due on due Goal Foot exam. Due on due Goal Dental exam. Due on 018 due Goal Td vaccine. Due on 18 due Goal Pneumococcal vac cine. Due on due Goal Depression scree lauryn. Due on due Goal Influenza vaccine. Due on due Goal ECG. Due on due Goal Tdap. Due on due Goal Depression scree lauryn. Due on due Goal Dilated eye exam. Due on March due Goal Urine microalbumin. Due on due Goal Foot exam. Due on due Goal ECG. Due on due Goal Td vaccine. Due on 18 due Goal Dental exam. Due on due Goal Influenza vaccine. Due on Oc due Goal GFR. Due on due Goal Pneumococcal vac cine. Due on due Goal Influenza vaccine. Due on Oc due Goal Foot exam. Due on 9 due Goal Dilated eye exam. Due on March due Goal ECG. Due on due Goal Dental exam. Due on due Goal Td vaccine. Due on 18 due Goal Tdap. Due on due Goal GFR. Due on due Goal Depression scree lauryn. Due on due Goal Urine microalbumin. Due on due Goal Influenza vaccine. Due on Oc due Goal Td vaccine. Due on 18 due Goal Depression scree lauryn. Due on due Goal Pneumococcal vac cine. Due on due Goal Tdap. Due on due Goal Urine microalbumin. Due on due Goal Dilated eye exam. Due on March due Goal Dental exam. Due on due Goal GFR. Due on due Goal Foot exam. Due on 9 due Goal ECG. Due on due Goal Depression scree lauryn. Due on due Goal Foot exam. Due on 9 due Goal Urine microalbumin. Due on A due Goal GFR. Due on due Goal Dental exam. Due on due Goal Td vaccine. Due on 18 due Goal Pneumococcal vac cine. Due on due Goal Influenza vaccine. Due on Oc due Goal Tdap. Due on due Goal Dilated eye exam. Due on March due Goal ECG. Due on due Goal Influenza vaccine. Due on Oc due Goal Depression scree lauryn. Due on due Goal Tdap. Due on due Goal Foot exam. Due on 9 due Goal Dental exam. Due on due Goal Urine microalbumin. Due on A due Goal Pneumococcal vac cine. Due on due Goal Td vaccine. Due on 18 due Goal Dilated eye exam. Due on Feb due Goal ECG. Due on due Goal GFR. Due on due Goal Td vaccine. Due on 18 due Goal GFR. Due on due Goal Pneumococcal vac cine. Due on due Goal Depression scree lauryn. Due on due Goal Urine microalbumin. Due on A due Goal Dilated eye exam. Due on Feb due Goal Foot exam. Due on 8 due Goal Dental exam. Due on due Goal Influenza vaccine. Due on Oc due Goal ECG. Due on due Goal Tdap. Due on due Goal Urinalysis. Due on 18 due Goal ECG. Due on due Goal Hemoglobin A1C. Due on due Goal GFR. Due on due Goal Influenza vaccine. Due on Oc due Goal Pneumococcal vac cine. Due on due Goal Urine microalbumin. Due on due Goal Foot exam. Due on 8 due Goal Dental exam. Due on due Goal Dilated eye exam. Due on Jan due Goal Lipid panel. Due on 018 due Goal Td vaccine. Due on 18 due Goal Tdap. Due on due Goal Dilated eye exam. Due on March due Goal Urine microalbumin. Due on due Goal Influenza vaccine. Due on due Goal Tdap. Due on due Goal Dental exam. Due on due Goal GFR. Due on due Goal Foot exam. Due on 9 due Goal Depression scree lauryn. Due on due Goal Pneumococcal vac cine. Due on due Goal Td vaccine. Due on 18 due Goal Influenza vaccine. Due on Oc due Goal Td vaccine. Due on 18 due Goal Foot exam. Due on 8 due Goal Tdap. Due on due Goal Lipid panel. Due on due Goal Depression scree lauryn. Due on due Goal Pneumococcal vac cine. Due on due Goal Hemoglobin A1C. Due on due Goal Urine microalbumin. Due on due Goal GFR. Due on due Goal Dilated eye exam. Due on Dec due Goal Dental exam. Due on due Goal Dilated eye exam. Due on Dec due Goal Dental exam. Due on due Goal Foot exam. Due on 8 due Goal Hemoglobin A1C. Due on due Goal Td vaccine. Due on 18 due Goal GFR. Due on due Goal Influenza vaccine. Due on due Goal Urine microalbumin. Due on due Goal Tdap. Due on due Goal Pneumococcal vac cine. Due on due Goal Depression scree lauryn. Due on due Goal Lipid panel. Due on due Goal Pneumococcal vac cine. Due on due Goal Foot exam. Due on 9 due Goal Depression scree lauryn. Due on due Goal Influenza vaccine. Due on Oc due Goal Urine microalbumin. Due on due Goal Dental exam. Due on due Goal GFR. Due on due Goal Dilated eye exam. Due on Nov due Goal Td vaccine. Due on due Goal Tdap. Due on due Goal Lipid panel. Due on due Goal Tdap. Due on due Goal Td vaccine. Due on due Goal Foot exam. Due on due Goal Dilated eye exam. Due on Nov due Goal Urine microalbumin. Due on due Goal GFR. Due on due Goal Pneumococcal vac cine. Due on due Goal Hemoglobin A1C. Due on due Goal Influenza vaccine. Due on due Goal Dental exam. Due on due Goal Depression scree lauryn. Due on due Goal Lipid panel. Due on due Goal Urine microalbumin. Due on due Goal Dental exam. Due on due Goal GFR. Due on due Goal Pneumococcal vac cine. Due on due Goal Dilated eye exam. Due on Nov due Goal Hemoglobin A1C. Due on due Goal Tdap. Due on due Goal Depression scree lauryn. Due on due Goal Foot exam. Due on 8 due Goal Influenza vaccine. Due on Oc due Goal Td vaccine. Due on 18 due Goal Td vaccine. Due on 17 due Goal Dental exam. Due on 017 due Goal Dilated eye exam. Due on Oct due Goal Foot exam. Due on 7 due Goal Influenza vaccine. Due on Oc due Goal Depression scree lauryn. Due on due Goal Lipid panel. Due on due Goal Hemoglobin A1C. Due on due Goal Pneumococcal vac cine. Due on due Goal Urine microalbumin. Due on due Goal GFR. Due on due Goal Tdap. Due on due Goal Dilated eye exam. Due on Oct due Goal Dental exam. Due on due Goal Urine microalbumin. Due on due Goal Hemoglobin A1C. Due on due Goal Foot exam. Due on 7 due Goal Td vaccine. Due on 17 due Goal GFR. Due on due Goal Pneumococcal vac cine. Due on due Goal Tdap. Due on due Goal Depression scree lauryn. Due on due Goal Influenza vaccine. Due on due Goal Lipid panel. Due on due Goal Hemoglobin A1C. Due on due Goal GFR. Due on due Goal Urine microalbumin. Due on due Goal Lipid panel. Due on due Goal Tdap. Due on due Goal Td vaccine. Due on due Goal Dental exam. Due on due Goal Foot exam. Due on due Goal Dilated eye exam. Due on Sep due Goal Pneumococcal vac cine. Due on due Goal Depression scree lauryn. Due on due Goal Influenza vaccine. Due on due Goal Foot exam. Due on due Goal GFR. Due on due Goal Dilated eye exam. Due on Jul due Goal Hemoglobin A1C. Due on due Goal Depression scree lauryn. Due on due Goal Urine microalbumin. Due on due Goal Dental exam. Due on due Goal Influenza vaccine. Due on due Goal Pneumococcal vac cine. Due on due Goal Td vaccine. Due on due Goal Tdap. Due on due Goal Lipid panel. Due on due Goal Pneumococcal vac cine. Due on due Goal GFR. Due on due Goal Foot exam. Due on due Goal Hemoglobin A1C. Due on due Goal Dilated eye exam. Due on Jun due Goal Urine microalbumin. Due on due Goal Dental exam. Due on due Goal Depression scree lauryn. Due on due Goal Influenza vaccine. Due on due Goal Tdap. Due on due Goal Td vaccine. Due on due Goal Lipid panel. Due on due Goal Lipid panel. Due on due Goal Tdap. Due on due Goal Td vaccine. Due on due Goal Hemoglobin A1C. Due on due Goal Dental exam. Due on due Goal Pneumococcal vac cine. Due on due Goal Urine microalbumin. Due on due Goal GFR. Due on due Goal Dilated eye exam. Due on May due Goal Influenza vaccine. Due on due Goal Foot exam. Due on due Goal Depression scree lauryn. Due on due Goal Dental exam. Due on due Goal Urine microalbumin. Due on due Goal Influenza vaccine. Due on due Goal Hemoglobin A1C. Due on due Goal Foot exam. Due on due Goal GFR. Due on due Goal Dilated eye exam. Due on May due Goal Pneumococcal vac cine. Due on due Goal Lipid panel. Due on due Goal Tdap. Due on due Goal Td vaccine. Due on due Goal Depression scree lauryn. Due on due Goal Lifestyle education regardin g diet completed Goal Lipid panel. Due on due Goal Influenza vaccine. Due on due Goal Depression scree lauryn. Due on due Goal Td vaccine. Due on due Goal Tdap. Due on due Goal Lipid panel. Due on due Goal Td vaccine. Due on due Goal Tdap. Due on due Goal Influenza vaccine. Due on due Goal Depression scree lauryn. Due on due Goal Td vaccine. Due on due Goal Lipid panel. Due on due Goal Influenza vaccine. Due on due Goal Depression scree lauryn. Due on due Goal Tdap. Due on due Referral Referred To: [facility] 100 Ventilator Ordered: Referrals: [facility] 100 Ventilator ordered Referral Ordered: [facility] -Psychiatry (related to Schizoaffective disorder, bipolar type) ordered Referral Referred To: [facility] Ordered: Referrals: Psychiatry. [facility]. Evaluate and treat ordered Referral Ordered: Referrals: Bariatric Surgery. Evaluate and treat ordered Referral Ordered: Referrals: Endocrinology. Evaluate and treat ordered Referral Ordered: Referrals: Diabetes Self Mangement Education. Consult Appointment date/timeframe: 08/12/2019 ordered Referral Ordered: [employer] (related to Type 2 diabetes w/ hyperglycemia) ordered Referral Ordered: Referrals: [employer] Programmer. Consult ordered Future Order: Lab Order Microalb umin/Creatinine (MICROALBUMIN), Ordered on: Ordered Future Order: Lab Order UA Dipst ick (UA), Ordered on: Ordered History Of Present Illness Encounter Date Complaint History Of Prese nt Illness trilogy f/u PT states he use s it every night and is doing fine with it. No issues. Not sure it helps with his breathing. diabetes The problem is g etting worse. Risk factors include: obesity, over age [age] years old and sedentary lifestyle. Patient is compliant with using medication. Managing with: Diet, Oral medications, Insulin and Fingerstick blood sugars (). Comorbidity: CAD. Associated symptoms include: urinary frequency and increased fatigue. Pertinent negatives include blurred vision, burning of extremities, chest pain, diarrhea, dyspnea, foot ulcers, heartburn, hypoglycemic episodes, nocturia, polydipsia, weight gain and weight loss. Additional information: 261 this a.m. and 199 last night. No longer has a probe for the Dexcon G6. Hospital F/U Admitted to the hospital 03/14 ad d/c 03/16/2021 due to chest pains and ultimately determined he did not have any cardiac problems nor a recurrent PE but was hypoxic during sleep. He had previously been on it BiPAP machine but was referred removed due to noncompliance. The hospital set him up with [facility]. Hospital f/u Was admitted on 02/09/21 for bilateral pulmonary embolism. Was discharged on 02-10-21. Medications were unchanged with the exception of Eliquis 5 mg twice daily. He denies any coughing or shortness of breath now. There is some question as to whether or not he had a previous pulmonary emboli but previous testing that we could find indicated no previous findings. Follow Up of depression There is improvement of initial symptoms. The patient presents with anxious/fearful thoughts, compulsive thoughts, depressed mood, excessive worry and fatigue but denies difficulty concentrating. The Follow Up of depression is aggravated by thinking. The patient's relieving factors are talking to someone. Hospital f/u Hyperosmolar hyp erglycemic state. He had started refusing his insulin 3 to 4 days prior to that. He was admitted to [facility] with a blood sugar greater than 600 on 01/23/2021 and was discharged on 01/25/2021. He states he is not taking his medication and has no plans to decline in the future. Chest pain The patient pres ents with a complaint of Chest pain. The symptoms began 6 days ago. The patient denies chest pain. The Chest pain is associated with lightheadedness. The patient denies any headache. Additional information: HFU chest pain. Dyspnea Episodes occur i ntermittently. The patient notes chest pressure. Symptom is aggravated by stress. Additional information: Was hyposixc in ER diabetes Risk factors inc lude: obesity, over age [age] years old and sedentary lifestyle. Managing with: Diet, Oral medications, Insulin and Fingerstick blood sugars (). Comorbidity: CAD. Pertinent negatives include chest pain. Additional information: Pt has a fasting Glucose of 262 today. Pt states he is lightheaded and is sweating. Continues to follow with endo at [facility].. depression The patient does not present with fatigue. The depression is associated with urinary frequency. The patient denies any headache and weight gain. Additional information: working with psychiatry. diabetes The problem is g etting worse. Risk factors include: obesity, over age [age] years old and sedentary lifestyle. Patient is compliant with using medication. Managing with: Diet, Oral medications, Insulin and Fingerstick blood sugars (). Comorbidity: CAD. Associated symptoms include: urinary frequency and increased fatigue. Pertinent negatives include blurred vision, burning of extremities, chest pain, diarrhea, dyspnea, foot ulcers, heartburn, hypoglycemic episodes, nocturia, polydipsia, weight gain and weight loss. hypertension It is currently stable. Risk factors include age over age 60, family history HTN, gout or CAD, male gender and obesity. Pertinent negatives include chest pain, dyspnea, fatigue, headache and irregular heartbeat/palpitations. Additional information: Had f/u scheduled tomorrow and wanted to do f/u today hospital f/u was hospitalized for covid- no symptoms currently Chest pain The patient pres ents with a complaint of Chest pain. The symptoms began 8 days ago. The patient denies chest pain. Additional information: HFU for chest pain. Per pt he is not having chest pain now. Cold symptoms Onset: 3 days ag o. The patient describes the cough as non-productive. It occurs persistently. The problem has not changed. Associated symptoms include cough, nasal congestion, post-nasal drainage and sore throat. NV: TB Test diabetes The problem is g etting worse. Risk factors include: obesity, over age [age] years old and sedentary lifestyle. Patient is compliant with using medication. He Has been managed with diet, oral medications, insulin and fingerstick blood sugars (). Comorbidity: CAD. Associated symptoms include: urinary frequency and increased fatigue. Pertinent negatives include blurred vision, burning of extremities, chest pain, diarrhea, dyspnea, foot ulcers, heartburn, hypoglycemic episodes, nocturia, polydipsia, weight gain and weight loss. hyperlipidemia Risk factors inc lude age over 50, obesity, poor diet and sedentary life style. The patient is adhering to medication and diet for their hyperlipidemia. The patient is managing diabetes with diet. Positive comorbidity factors include coronary artery disease. Hyperlipidemia management includes statins. Associated symptoms include increased fatigue. Pertinent negatives include chest pain, constipation, diaphoresis, diarrhea, dyspnea, foot ulcer, heartburn, hypoglycemic episodes, joint pain, nausea, nocturia, palpitations, polydipsia, transient weakness, vision loss and vomiting. hypertension The symptoms beg an gradually. The severity has been described as being mild-moderate. It is currently stable. Risk factors include age over age 60, family history HTN, gout or CAD and male gender. The hypertension is exacerbated by anxiety. Associated symptoms include fatigue. Pertinent negatives include chest pain, diaphoresis, dyspnea, headache, irregular heartbeat/palpitations, nausea, transient weakness, tremor and vomiting. DRVS A1C, Flu and MAW V. Pt also needs a TB test administered today. Physical Men's preventive visit. Patient Health Questionnaire (PHQ-2) is negative. Patient is on a diabetic diet. He has weight loss. Marital status: single. Relevant history is negative for passive smoke exposure, passive vaping exposure, alcohol use. He is a former tobacco user. diabetes Risk factors inc lude: obesity, over age [age] years old and sedentary lifestyle. He Has been managed with diet, oral medications, insulin and fingerstick blood sugars (). Comorbidity: CAD. Additional information: Had syncopal event on July 06 after his evening meal and EMS was called. He was given dextrose infusion in route to the hospital because he was diaphoretic and stated that he was lightheaded.. ER F/U Hospital F/U Pt was admitted 05-26-20 for hypoglycemia. His blood sugar was over 300 after dinner and recieved 20 units of humalog and was brought to the ER after his blood sugar wad in the 50s. He was discharged on Lantus 25U qHS and lispro 5U TID with sliding scale on 05-27-20 and to follow up with endocrinology. Hep B vaccine Patient is here today for his third hep b vaccine of this series/ TB [facility] PAT[employer] Eye problems Onset: 3 Days. P ain scale: 4/10. Discomfort is described as dull pain, itchy and burning. Discharge is described as clear. Associated symptoms include bilateral eye pain, eye(s) crusted shut in AM, itching, red/purple color around eye and rubbing eye. Follow Up of Knee Pain It occurs intermittently and is resolved. Location: bilateral knee. Pertinent negatives include difficulty initiating sleep. Hand Dominance: right. Additional information: His knee pain is better. he reports. COVID 19- Comments Follow Up of 6 Month Pt's Pharma cy is up to date in his chart. Follow Up of Diabetes Risk facto rs include: obesity, over age [age] years old and sedentary lifestyle. He Has been managed with diet, oral medications and insulin. Comorbidity: CAD. Follow Up of Depression This is a follow up visit. There is continuation of initial symptoms and improvement of initial symptoms. The patient reports functioning as not difficult at all. The patient does not present with anxious/fearful thoughts, compulsive thoughts, depressed mood, difficulty falling asleep, difficulty staying asleep, fatigue, hallucinations, racing thoughts or thoughts of or suicide. The patient's risk factors include family history of anxiety and medication. The patient's risk factors exclude alcoholism, drug abuse and history of depression. The Follow Up of Depression is aggravated by lack of sleep and winter season. The patient's symptoms are not relieved by alcohol. The patient denies any headache, nausea and vomiting. COVID 19- Comments (comments) Du e to COVID-19 pandemic and requirements to social distance, the patient agrees to Telehealth visit. This was done by phone as no video option was available to patient. Patient is in their home, and provider is in the office at [facility]. The telehealth visit lasted 9 minutes obesity Risk factors inc lude family history of obesity and sedentary lifestyle. Aggravating factors include lack of exercise and snacking. Pertinent negatives include abdominal pain, acne, anxiety, constipation, depression, fatigue, generalized weakness or headache. hypertension The symptoms beg an gradually. The severity has been described as being mild-moderate. It is currently stable. Risk factors include age over age 60, family history HTN, gout or CAD and male gender. The hypertension is exacerbated by anxiety. Pertinent negatives include chest pain, dyspnea, fatigue, headache, irregular heartbeat/palpitations, nausea, tremor and vomiting. hospital fu Pt in the hospit al recently for hypoglycemia. Both insulins have been reduced. Staff changed in chart. diabetes The problem is i mproving. Risk factors include: obesity, over age [age] years old and sedentary lifestyle. Patient is compliant with using medication, and follow-up. He Has been managed with diet, oral medications and insulin. Comorbidity: CAD. Associated symptoms include: hypoglycemic episodes - shakiness. Pertinent negatives include chest pain, foot ulcers, urinary frequency, nocturia and slow healing wounds / sores. mood disorder The symptoms beg an 1 week ago. The symptoms are reported as being severe. The symptoms occur reolved now. The location is generalized. Was hospitalized for depression and threatening suicide. He sates trouble with family is what triggered his depressive episode Follow Up of Diabetes Risk facto rs include: obesity, over age [age] years old and sedentary lifestyle. He Has been managed with diet, oral medications, insulin and fingerstick blood sugars (). Home glucose readings: Min 160, Max 290 Comorbidity: CAD. Associated symptoms include: blurred vision, urinary frequency and polydipsia. Pertinent negatives include hypoglycemic episodes. COVID 19- Comments Due to Covid 19, the patients appointment was performed via Telephone. The patient verbally agrees to the TeleHealth conference visit. The provider is in the clinic and the patient is at home during the visit. Follow Up of 2 Week Pt's Joel peck stated that the pt was under a Mental Evaluation and had several medication changes from the ER also that need to be discussed. Pt's Pharmacy is up to date in his chart. Follow Up of Diabetes Risk facto rs include: obesity, over age [age] years old and sedentary lifestyle. Patient is compliant with using medication, and follow-up. Patient did not use education materials. He Has been managed with diet, oral medications, insulin and fingerstick blood sugars (). Home glucose readings: Min 123, Max 320, Avg 200. Comorbidity: CAD. Associated symptoms include: blurred vision and polydipsia. Pertinent negatives include hypoglycemic episodes. Additional information: Was seen in the ER on 03-11-20 for hyperglycemia and had to receive fluids and IV insulin to bring it down. This occurred after he drank a 2 L bottle of soda. He now has food restrictions.. COVID 19- Comments Patient seen by audio conference via phone due to COVID-19 Pandemic. Pt does not have access to internet/video conference. Patient verbally agrees to the Telehealth format. Provider located in clinic. Pt is located at home. Follow Up of 2 Week Pt's Pharmac y is up to date in his chart. Follow Up of Diabetes Risk facto rs include: obesity, over age [age] years old and sedentary lifestyle. He Has been managed with diet, oral medications and fingerstick blood sugars (). Home glucose readings: Min 112, Max 500 Comorbidity: CAD. Additional information: Been working with dietitian. Has been off insulin and have no explanation as to why his blood sugar ran 4 and 500 on various occasions as food record did not indicate a high carb meal prior.. Follow Up of Hernandez The patient d enies any aggravating factors. The patient had a response to cold compress and a response to elevation. The injury is associated with localized swelling. The patient denies any chills or fever. Additional information: 2nd degree burn was I & D'ed last week. States healing nicely--no longer draining. Follow Up of 1 Week Pt's Pharmac y is up to date in his chart. COVID 19- Comments Due to Covid 19, the patients appointment was performed via Telephone. The patient verbally agrees to the TeleHealth conference visit. The provider is in the clinic and the patient is at home during the visit. acute The symptoms are reported as being moderate. burn on top of right hand xs 1 week. Pt thinks infection since he says its draining Hernandez The injury occur red 1 week ago. Symptoms related to the hernandez remain unchanged. The patient denies any history of trauma. The injury was not work related. Mechanism of injury details: right hand-burned while cooking on stove. The injury is aggravated by heat. Interventions the patient has tried have not provided any relief. The patient denies any abdominal pain, change in appetite, fatigue or nausea. diabetes The problem is s table. Risk factors include: obesity, over age [age] years old and sedentary lifestyle. Patient is compliant with using medication. He Has been managed with diet, oral medications and fingerstick blood sugars (). Comorbidity: CAD. Associated symptoms include: urinary frequency and increased fatigue. Pertinent negatives include blurred vision, burning of extremities, chest pain, diarrhea, dyspnea, foot ulcers, heartburn, hypoglycemic episodes, nocturia, polydipsia, weight gain and weight loss. Additional information: Insulin recently dc/ed due to multiple ER visists for hypogylcemia. Sees Dr. Mathur for management. Follow Up of Hospital Pt stated that he is no longer taking his insulin. Pt's Pharmacy is up to date in his chart. COVID 19- Comments Patient was s een by Telephone phone call due to COVID-19 Pandemic. Patient verbally agrees to the TeleHealth format. Provider is in clinic and patient is at home during the visit. Follow Up of Hypoglycemia The se verity of the problem is severe. Symptoms are associated with at night was when they were low. Symptoms are not associated with alcohol ingestion. Presenting/Initial symptoms include confusion and sweating. Symptoms are not relieved by glucagon or snack. Associated symptoms include nausea and generalized weakness. Additional information: Glycemia has improved since he quit his insulin. Blood sugars are running normal except for fasting and postprandial evening meals are running in the 200s. COVID 19- Comments Due to Covid 19, the patient agrees to comply with social distancing recommendations. The appointment was performed via Telephone. Follow Up of Hospital Pt's Die Caster states that the pt was seen for low blood sugars. Pt's Pharmacy is up to date in his chart. diabetes The problem is g etting worse. Risk factors include: obesity, over age [age] years old and sedentary lifestyle. Patient is compliant with using medication. He Has been managed with diet, oral medications, insulin and fingerstick blood sugars (). Comorbidity: CAD. Associated symptoms include: urinary frequency, hypoglycemic episodes and increased fatigue. Pertinent negatives include blurred vision, burning of extremities, chest pain, diarrhea, dyspnea, foot ulcers, heartburn, nocturia, polydipsia, weight gain and weight loss. Additional information: To hospital on February 10 and was discharged on the due to hypoglycemic episodes. He was consulted by Dr. Mathur who restarted his mealtime insulin and decreased his Levemir to 50 units at bedti. Leg Pain/Swelling The discomfort started 2 days ago. Leg Pain/Swelling (comments) her e today with optics technical officer for 2 day hx of bilateral leg swelling, lives at [facility], told by kidney dr to come here or to ER to get evaluated, been walking more than normal, sharp shooting pains up right platt, no pain in calf no redness, some red bumps to right lower leg are new, no injury, doesn't feel left leg is that swollen at all, no cp no soa, blood glucose levels have been low 50-60's so Katia said to hold Humalog over the weekend, sugar was 99 this am, follows w/ Endo as well, doesn't have DM shoes, no N/T ER f/up Was seen in the ER after his blood sugar was in the 60's per EMS and had syncope and loose watery stool diabetes The problem is g etting worse. Risk factors include: obesity and sedentary lifestyle. He Has been managed with diet and fingerstick blood sugars (). Associated symptoms include: hypoglycemic episodes. Additional information: Was seen in ER on 326 for blood sugar in the 30s. Continues to run below 100 despite making adjustments and holding insulin.. depression This is a follow up visit. There is continuation of initial symptoms and improvement of initial symptoms. The patient reports functioning as not difficult at all. The patient presents with anxious/fearful thoughts, depressed mood, difficulty falling asleep, difficulty staying asleep, fatigue and racing thoughts but denies compulsive thoughts or hallucinations. The patient's risk factors include family history of anxiety and medication. The patient's risk factors exclude alcoholism, drug abuse and history of depression. The depression is aggravated by lack of sleep and winter season. The patient's symptoms are not relieved by alcohol. The patient denies any headache, nausea and vomiting. Additional information: Was hospitalized on 316 for suicidal ideations. Hospital Follow Up puncture diabetes Risk factors inc lude: obesity and sedentary lifestyle. Patient is compliant with using medication. He Has been managed with diet and fingerstick blood sugars ()., Avg 130. Pertinent negatives include blurred vision, diarrhea, dyspnea, foot ulcers and heartburn. abdominal pain The problem is i mproving. The location is midline. The patient denies aggravating factors. Associated symptoms include change in appetite. Pertinent negatives include diarrhea, dyspnea and heartburn. hospital f/u pt went to [facility] by ambulance low bs, vomiting and diarrhea On 12/09/19. Last episode of diarrhea was last night, but still has some abdominal discomfort persisiting. . Pt says he feels much better. Still has some abdominal discomfort. Hospital dc'd metformin and lowered lantus to 30 units. 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 Risk factors include: obesity and sedentary lifestyle. Patient is compliant with using medication, and follow-up. He Has been managed with diet, oral medications and fingerstick blood sugars ()., Avg 112. Associated symptoms include: increased fatigue. Pertinent negatives include blurred vision, burning of extremities, chest pain, diarrhea, foot ulcers, urinary frequency, hypoglycemic episodes and nocturia. 3 month lab f/u pt feel on 10-22 and hurt his left knee. Pt went to [facility]. Xray negative. Pt still hurting. knee pain Onset: 5 days ag o. Location: left knee. The pain is aching. Context: there is an injury. Trauma type: fall, occurred in the street, 5 Days ago. The pain is aggravated by walking. There are no relieving factors. Associated symptoms include joint tenderness and limping. Pertinent negatives include swelling. Hand Dominance: right. depression This is a follow up visit. The patient does not present with anxious/fearful thoughts, depressed mood, difficulty falling asleep, difficulty staying asleep, excessive worry or thoughts of or suicide. The depression is aggravated by conflict or stress. The patient's relieving factors are medication. Hep B Vaccine Patient is here today for his first Hep B vaccine. flu vaccine sinusitis The patient pres ents with symptoms that began 1 week ago. The sinus symptoms have not changed. Today the patient complains of nasal congestion, postnasal drainage, sinus pain and sinus pressure. Denies relieving factors. Associated symptoms include cough, fatigue, postnasal drainage and sinus pressure. Pertinent negatives include anosmia, bloody sinus discharge, fever and headache. internal transfer Previous Aggie Medley pt. Pt lives in a fci with 1 room mate. Pt staff is with him today Lizabeth. Lizabeth says the supervisor cook house was not happy with pt care and that is why they switched providers. Sees Dr Martinez for psychiatry. depression This is a follow up visit. The patient does not present with anxious/fearful thoughts, depressed mood, difficulty falling asleep, difficulty staying asleep, excessive worry or thoughts of or suicide. The depression is aggravated by conflict or stress. The patient's relieving factors are medication. The depression is associated with irritability. The patient denies any headache and trembling. weight gain The patient has gained 100lbs (45.45kgs) over a period of 4 year(s). The patient is still gaining weight. Pertinent negatives include constipation, decreased urine output, increased body fluid and shaking. diabetes Risk factors inc lude: obesity and sedentary lifestyle. He Has been managed with oral medications. Home glucose readings: Min 43, Max 300 Pertinent negatives include blurred vision, burning of extremities, foot ulcers, increased fatigue and nocturia. drkimmy flu, medicare we llness hypertension Risk factors inc lude male gender. Pertinent negatives include chest pain, claudication, headache, transient weakness and tremor. Hospital follow up Patient was s een in the ER 2 days for hypoglycemia. His blood sugar was in the 60s and his staff administered his lantus which dumped him down and EMS was called. Dr. Mathur His plastic injection mold maker consulted with him in the ER, he is to go to Lantus 60U at night , humalog 20 TID ac meals, EVENING meals if BS is less than 150 no units. Please see med list for further clarification. He presents to day in the office sitting happily on the exam table with his staff member by his side. HE reports he is feeling better. His bs has been running high however in the 300s. He has lost 9 pounds since his last office visit. ear cleaning ears feel full b ilaterally fci physical Patient repo rts he is feeling well today. He presents with a caregiver. He is excited because his mother is coming to town to have lunch with him today. No complaints about health today. He is an uncontrolled diabetic and sees Dr. Mathur at endocrinology. He also has history of hyperlipidemia, hypertension and takes medication daily for this. Blood pressure is controlled and he is due for lipid lab today. He is treated by a psychiatrist for schizophrenia. LAB and BP Check diabetes Risk factors inc lude: obesity and sedentary lifestyle. There are no associated symptoms. There are no pertinent negatives. Additional information: patient's last a1c this month at endocrinology and Dr Mathur was 6.9. He has had his humalog and lantus lowered a little to 30u TID and lantus 50 U. Hypertension Risk factors inc lude male gender. There are no associated symptoms. There are no pertinent negatives. Additional information: controlled with medication hyperlipidemia Risk factors inc lude obesity, poor diet and sedentary life style. Additional information: patients lipids were a bit elevated last draw, he is taking rosuvastatin daily. congested Started 2 days a go. Has dry productive cough. Hasn't tried anything otc. Stuffy nose. sore throat Additional infor mation: for the last 2 days. BP Check and labs diabetes Risk factors inc lude: obesity and sedentary lifestyle. There are no associated symptoms. There are no pertinent negatives. Additional information: pt states his BS where very high when he was in skilled nursing and but has been lowering since he returned home. His blood sugar has been running in the low 200s.. earwax in ears flu shot Blood pressure check Hypertension Risk factors inc lude male gender. There are no associated symptoms. There are no pertinent negatives. Additional information: pt states bp has been running either very high or very low, caregiver did not bring the values with her, his b/p is normal in the office today. Ear lavage Pt states he nee ds his ears cleaned. ER f/u Pt states he pas sed out yesterday after eating a peanut butter sandwich and was taken to the ER. Pt states he feels fine today. His blood sugar today was 197 this am. He is not light headed and his caregiver reports he has been drinking water instead of soda pop today. weight loss Additional infor mation: Dr. Mathur has started the patient on phentermine , he has lost 4 pounds. He was not aware that he needed to increase water while taking that med. BP Check hypertension Risk factors inc lude male gender. Additional information: BP check, b/p is slightly improved, still elevated. Knots behind both ears Pt states he has knots behind both ears, he isn't sure how long they have been there. Pt states they don't. manager practice would like them assessed. Patient reports he ''never noticed.'' TB test Pt is needing a TB test done today Follow Up of HTN blood pressure has been running high. diabetes Risk factors inc lude: obesity and sedentary lifestyle. Home glucose readings: Min 90, Max 250 There are no associated symptoms. There are no pertinent negatives. PPD Er follow up pt was seen for fainting, pt was dx with dehydration, was given fluids in er, no new medication. 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 He reports he is feeling much better. No med sheet today. diabetic compression sock he wou ld like compression socks. Will not wear compression stockings. diabetes Risk factors inc lude: obesity and sedentary lifestyle. Home glucose readings: Min 175, Max 200 There are no associated symptoms. There are no pertinent negatives. hyperlipidemia Risk factors inc lude obesity, poor diet and sedentary life style. Additional information: taking medication daily. Needing annual paper work for home completed Paper work to assess ability to chew and swallow without difficulty. Needs hearing test Has a slight speech impediment and the house leader would like his hearing checked by an broadcast program director. Patient denies difficulty hearing. hypertension Risk factors inc lude male gender. Additional information: Bp has been running high, wants to make sure its not new medication. 144/95, 157/105, and 140/100 hosp f/u dehydration Has been dr inking 3 bottles of water a day and is feeling better. No dizziness. Bs continue to fluctuate, as the patient does not eat 3 meals a day and sleeps until 1pm each day. Hospital follow up patient was s een in the ER for dehydration and syncope on the 31 of October. He has been feeling better and bs has been 70 to 210. He presents today with his caregiver. Just had a sausage egg and cheese biscuit and diet Mountain Dew. He reports he drinks coca cola and a lot of diet soda at home. sore throat Associated sympt oms include sinus pressure. Pertinent negatives include fever. Additional information: pt is still experiencing a sore throat, pt states medicine was for a kid and he's a grown up so it didnt help He was given amoxicillin 875 and only took 2 doses. Hurts to swallow. sore throat Additional infor paul: x2 days pt denies any other symptoms. Cough. bilat ear pain, dark drainage no pain just draining and tickling the last few days bilaterally. Has been using a q-tip to clean them. PPD Read 0mm induration. no redness noted. Yearly physical diabetes Risk factors inc lude: obesity and sedentary lifestyle. Patient is compliant with using medication, follow-up, and using education materials. Home glucose readings: Min 190, Max 210 Associated symptoms include: urinary frequency. Pertinent negatives include blurred vision, burning of extremities, chest pain, constant hunger, dental disease, diarrhea, dyspnea and heartburn. Additional information: Patient would like his alcohol intake increased to 2 drinks a week. He currently is allowed 2 a month. Due to his inability to keep his bs under control and risk of dehydration and I don't support this. Mild intellectual disabiliti int ermittent explosive disorder, chronic motor or vocal tic disorder. Sees outside psychiatry for these disorders. hyperlipidemia Risk factors inc lude obesity, poor diet and sedentary life style. The patient is adhering to medication, follow-up and diet for their hyperlipidemia. The patient is not adhering to exercise for their hyperlipidemia. The patient is adhering to medication and follow-up for their diabetes management. comfort of home woul d like labs and tb with a physical/ edema BLE Functional Status Date Functional Assessmen t No Information Instructions Date Instruction Additional Infor paul No longer has a Dex Com to do CGM. Is moving he reports 05/05/2021 so will have him establish with endo Related to Type 2 diabetes with hyperglycemia Admitted to the hosp ital 03/14 ad d/c 03/16/2021 due to chest pains and ultimately determined he did not have any cardiac problems nor a recurrent PE but was hypoxic during sleep. He had previously been on it BiPAP machine but was referred removed due to noncompliance. The hospital set him up with [facility]. States he is using at night and once during the day. Related to Obstructive sleep apnea States BS's are doin g much better 150-200's eating better . Related to Type 2 diabetes with hyperglycemia Admitted to the hosp ital 03/14 ad d/c 03/16/2021 due to chest pains and ultimately determined he did not have any cardiac problems nor a recurrent PE but was hypoxic during sleep. He had previously been on it BiPAP machine but was referred removed due to noncompliance. The hospital set him up with [facility]. Will return to clinic in 30 days to discuss compliance. He is already not been terribly compliant stating that he is worn it 4 times out of the last 7 days. Discussed the importance of compliance so that he can have it. Related to Obstructive sleep apnea Giving encouragement to exercise Related to Body mass index [BMI]40.0-44.9, adult Lifestyle education regarding di et Related to Body mass index [BMI]40.0-44.9, adult Complained about augustus ng diaphoretic and lightheaded in the office was concerned that he was hypoglycemic. Random blood sugar was between 250 and 315 on 2 different checks. Related to Type 2 diabetes with hyperglycemia Was admitted on for bilateral pulmonary embolism. Was discharged on 02-10-21. Medications were unchanged with the exception of Eliquis 5 mg twice daily. He denies any coughing or shortness of breath now. There is some question as to whether or not he had a previous pulmonary emboli but previous testing that we could find indicated no previous findings. Related to Personal history of pulmonary embolism Has difficulty with mood and then begins refusing medications. This time it was his insulin. States that he is doing better with his depression now, and agrees to take his medication in the future. Related to Schizoaffective Disorder, Bipolar type had started refusing his insulin 3 to 4 days prior to that. He was admitted to [facility] with a blood sugar greater than 600 on 01/23/2021 and was discharged on 01/25/2021. He states he is now taking his medication and has no plans to decline in the future. Sees Dr. Wilder at [facility] endocrinology for DM management Related to Type 2 diabetes with hyperglycemia Fasting blood sugar mildly elevated today. Had recent evaluation with plastic injection mold maker and no significant changes were made in his medication regime. Related to Type 2 diabetes mellitus with hyperglycemia Was seen in the ER a nd discharged due to complaints of chest discomfort. His D-dimer was a little high and he was hypoxic upon ER arrival but all of his cardiac testing turned out to be negative. He states he has some chest wall discomfort that seems to trigger his shortness of breath and that may be contributing to his feelings of chest pain and then anxiety results in his shortness of breath. Related to Chest pain Is working with endo crinology at [facility]. States his BS have been adequately controlled despite prednisone Related to Type 2 diabetes mellitus with hypoglycemia without coma Well-controlled on current meds. Related to Hypertension Was hosptialied with [facility] and received antiviral therapy and steroid. Denies he is having any current sx. Related to Other specified respiratory disorders Runny nose head jono estion and sore throat x3 days. As he lives in a fci he was strongly recommended to have a rapid Covid test done today. He indicates he will go to the [facility] to get a nurse visit rapid today. He is accompanied by fci staff that indicate they will take him to get tested. Related to Upper respiratory infection Reviewed ER notes fr om hospitalization for chest pain. Denies having any. His testing in troponin enzymes were all negative. He is now having some respiratory symptoms however. Related to Chest pain Working with Dr. Romel Shepard for treatment of mental health disorders. Related to Schizoaffective Disorder, Bipolar type Excoriated lesion to right groin. Will have him use some triple antibiotic ointment to affected area and use some warm moist packs. Related to Disorder of the skin and subcutaneous tissue, unspecified Well-controlled on current meds. Related to Hypertension 30-year-old male her e for physical for fci. He has no concerns except for a lesion in his right groin. He was seen in the emergency room in the past week due to hypoglycemia and is working with endocrinology to better control his diabetes and his hypoglycemic events. He has had no events in the last 24 hours. TB administered and six-month labs also obtained. Continue to work on obtaining healthy weight. Related to Encounter for general adult medical exam w abnormal findings Is being followed by Dr. Wilder at [facility] in regards to his diabetes. He is taking Humalog 8 units for breakfast and lunch and 10 units at supper. He developed a syncopal event on 07 06 and they felt it to be related to his blood sugar and was given glucose tablets and orange juice before he was picked up by EMS and then was given a dextrose solution in route to the hospital. His blood sugar at the hospital was 69. He was not admitted and was stabilized. We will let Dr. Wilder know of his ER visit and hypoglycemic event. I will not make any insulin adjustments but defer to his plastic injection mold maker. Related to Type 2 diabetes mellitus with hypoglycemia without coma Is being followed by Dr. Wilder at [facility] in regards to his diabetes. He is taking Humalog 8 units for breakfast and lunch and 10 units at supper. He developed a syncopal event on 07 06 and they felt it to be related to his blood sugar and was given glucose tablets and orange juice before he was picked up by EMS and then was given a dextrose solution in route to the hospital. His blood sugar at the hospital was 69. He was not admitted and was stabilized. We will let Dr. Wilder know of his ER visit and hypoglycemic event. I will not make any insulin adjustments but defer to his plastic injection mold maker. Related to Type 2 diabetes mellitus with hypoglycemia without coma Giving encouragement to exercise Related to Body mass index (BMI) 45.0-49.9, adult Lifestyle education regarding di et Related to Body mass index (BMI) 45.0-49.9, adult To ER for hypoglycem ia from 05/27/2020. ER had adjusted down his meal-time insulin to 5 units + SS and have not gotten low since then. See Dr. Devonte Olmos at [facility] and will send them ER report. --has appt. 06/2020 Related to Type 2 diabetes mellitus with hypoglycemia without coma I suspect that the s ymptoms may be more allergic, but states are worse today than yesterday and has been rubbing his eyes so we will treat for secondary infection with neomycin plus polymyxin/prednisolone. If recurs will need to put on Patanol or some type of anti-allergy eyedrop. Related to Unspecified conjunctivitis Is following with Ryan an--HX: Patient was admitted to the hospital on 03/18/2020 for complaints of suicidal ideations. Dr. Rousseau saw and consulted on patient. Medications were adjusted and justified. Pt. denies further suicidal thoughts/depressive or hallucinations currently. Staff state he is doing well. Related to Major depressive disorder, recurrent, moderate Has appt with Dr. Kj vang to evaluate for gastric by-pass to assist with obesity and DM Related to Obesity No further admission s since he Was admitted for hypoglycemia from 04/11/2020- 04/13/2020. will have him continue to follow with endocrinology instructions. See reported BS readings. Related to Diabetes due to underlying condition w hypoglycemia w/o coma Well-controlled on current meds. Related to Hypertension Giving encouragement to exercise Related to Body mass index (BMI) 45.0-49.9, adult Dietary management e ducation, guidance, and counseling Related to Body mass index (BMI) 45.0-49.9, adult He is interested in bariatric surgery, both for weight loss as well as improvement in his diabetes control. Referral to Dr. Mckenzie Related to Obesity Well-controlled on current meds. Related to Hypertension Was admitted again f or hypoglycemia from 04/11/2020- 04/13/2020. He has just come from his appointment with Dr. tobias where he has modified his insulin further and will have him continue to follow with endocrinology instructions. Related to Diabetes due to underlying condition w hypoglycemia w/o coma Patient was admitted to the hospital on 03/18/2020 for complaints of suicidal ideations. Dr. Rousseau saw and consulted on patient. Medications were adjusted and justified. Pt. denies further suicidal thoughts Related to Major depressive disorder, recurrent, moderate Further hospital adm issions since he was seen in the ER on 03-11-20 due to syncopal event and found to have blood sugars greater than 500. Was placed on fluids and insulin drip to bring his blood sugars down apparently he had drank a 2 L bottle of soda prior to that event and had previously not had any food restrictions placed on him. Since this event and previous events where he was hypoglycemic. They have gotten approval from his guardians to limit his food and not drink soda or junk food. He is currently on back on insulin with 50 units of Lantus at at bedtime 18 of Humalog at meals with sliding scale insulin of 1 81-2 30 equals 2 units 231 to 284 units to 81 to 326 units and greater than 320 and an additional 8 units. He has appointment to see [facility] endocrinology in May. Dr. Mathur did consult him in 6 restarted his insulin in the hospital. Related to Type 2 diabetes with hyperglycemia Was seen in the ER o n 03-11-20 due to syncopal event and found to have blood sugars greater than 500. Was placed on fluids and insulin drip to bring his blood sugars down apparently he had drank a 2 L bottle of soda prior to that event and had previously not had any food restrictions placed on him. Since this event and previous events where he was hypoglycemic. They have gotten approval from his guardians to limit his food and not drink soda or junk food. He is currently on back on insulin with 50 units of Lantus at at bedtime 18 of Humalog at meals with sliding scale insulin of 1 81-2 30 equals 2 units 231 to 284 units to 81 to 326 units and greater than 320 and an additional 8 units. He has appointment to see [facility] endocrinology in May. Dr. Mathur did consult him in 6 restarted his insulin in the hospital. Related to Type 2 diabetes with hyperglycemia States in general hi s blood sugars have been running 140s to lower 200s, but had to blood sugars 1 401 500 without any triggering meals or events that can be identified. His blood sugars following that were in the 100s. He has been off of all insulin since his last ER visit, and has no not had further hypoglycemic episodes. He has been unable to get the Januvia due to a prior Auth that is been required. Will try to see if there is another DPP 4 in that class that Medicaid does cover and would otherwise continue with metformin 800 3 times daily and for Cindy 10. HX: 2 more ER visits for hypoglycemia on 02-23-20 and prior to that for - 2 0 stopped all insulin and BS acceptable except after supper and fasting. Will increase FArxiga to 10 and add Januvia (GLP! caused N/V he said) Hx: Went To hospital on February 10 and was discharged on the due to hypoglycemic episodes. He was consulted by Dr. Mathur who restarted his mealtime insulin at 18 units and decreased his Levemir to 50 units at bedtime. He states he has not had any lows since discharge, but BS running in 200's. Related to Type 2 diabetes mellitus with hypoglycemia without coma States his hand seco nd degree burn has scabbed and is no longer draining. Related to 2nd degree burn of back of hand, initial encounter Very painful and wou ld liked drained. See procedure Related to 2nd degree burn of back of hand, initial encounter After 2 more ER visi ts for hypoglycemia on 02-23-20 and prior to that for 2 0 stopped all insulin and BS acceptable except after supper and fasting. Will increase FArxiga to 10 and add Januvia (GLP! caused N/V he said) Hx: Went To hospital on February 10 and was discharged on the due to hypoglycemic episodes. He was consulted by Dr. Mathur who restarted his mealtime insulin at 18 units and decreased his Levemir to 50 units at bedtime. He states he has not had any lows since discharge, but BS running in 200's. Related to Type 2 diabetes mellitus with hypoglycemia without coma After 2 more ER visi ts for hypoglycemia on 02-23-20 and prior to that for 2 0 stopped all insulin and BS acceptable except after supper and fasting. Will increase FArxiga to 10 and add Januvia (GLP! caused N/V he said) Hx: Went To hospital on February 10 and was discharged on the due to hypoglycemic episodes. He was consulted by Dr. Mathur who restarted his mealtime insulin at 18 units and decreased his Levemir to 50 units at bedtime. He states he has not had any lows since discharge, but BS running in 200's. Related to Type 2 diabetes mellitus with hypoglycemia without coma To hospital on February 10 and was discharged on the due to hypoglycemic episodes. He was consulted by Dr. Mathur who restarted his mealtime insulin at 18 units and decreased his Levemir to 50 units at bedtime. He states he has not had any lows since discharge, but BS running in 200's. We will ask his supervisor cook house to copy his blood sugar readings and fax them to us over the next week to make any adjustments if necessary or consult Dr. Mathur. Related to Type 2 diabetes mellitus with hypoglycemia without coma Continue to hold Hum alog and call office Sunday as instructed already to let PCP know how BG levels are off of SA-insulin Related to Type 2 diabetes mellitus with hypoglycemia without coma Minimal. No s/s of c ellulitis or DVT. No ER care needed. Given hx of renal disease and DM edema may come and go. Elevation discussed. Continue to monitor Related to Edema Filled out Comfort a t Home sheet and will have scanned to chart for office visit summary. Ice and elevation for pain and recommend DM shoes at some point. Rest as well no heavy exertion this take it easy. Discussed ER s/s and notify office if occurs when calls Sunday to let PCP know about sugars also let her know if still has symptoms Related to Pain in right leg Was hospitalized 01/03 for suicidal thoughts, but Dr. Mathur was consulted on his diabetes. He discontinued his metformin and his Bydureon and doubled his Lantus to 60 units twice daily. Had decreased his Lantus from 60 units twice daily to 30 units twice daily and will decrease it further to 20 units twice daily as he states that his fasting blood sugar this morning was less than 50. Will decrease his sliding scale insulin to 5 units with meals and continue his titration of 2 extra units for blood sugar of 1 51-200 for extra units for blood sugar of 201 to 256 extra units for a blood sugar of 2 51-308 extra units for a blood sugar greater than 3001 but less than 350. 12 extra units for blood sugar greater than 350. He was also given instructions to hold his basal and meal-time insulin if vomiting or not eating a meal, as he has had more difficulty with hypoglycemia as of late rather than hyperglycemia. Related to Diabetes due to underlying condition w hypoglycemia w/o coma Needed sports physic al to participate in [employer]. Completed please see form. Related to Encounter for general adult medical exam w abnormal findings Was hospitalized 316 for suicidal thoughts, but Dr. tobias was consulted on his diabetes. He discontinued his metformin and his Bydureon and doubled his Lantus to 60 units twice daily patient states he is a little hungrier since then and is eating more. Blood sugars were fairly well controlled in the hospital. Does have follow-up appoint with Dr. Mathur for diabetes monitoring. Related to Type 2 diabetes mellitus without complications Patient was admitted to the hospital on 01/19/2020 for complaints of suicidal ideations. It looks like Dr. Lopez was consulted and medications adjusted. He states that he is feeling better. Related to Major depressive disorder, recurrent, moderate Lifestyle education regarding di et Related to Body mass index (BMI) 40.0-44.9, adult Patient was hypoglyc emic secondary to gastroenteritis and had not been eating well. They had lowered his Lantus insulin to only 30 units at at bedtime. According to staff he had been taking his Lantus twice a day. Staff will continue checking his blood sugars nightly and report them. Related to Other specified DM with hypoglycemia without coma Continues to have so me stomach upset. We will have him use Carafate for just 1 week and then discontinue. Related to Gastroenteritis pt went to hospital by ambulance for low blood sugars secondary to vomiting and diarrhea On 12/09/19. Last episode of diarrhea was last night, but still has some abdominal discomfort persisting. . Pt says he feels much better. Still has some abdominal discomfort. Hospital dc'd metformin and lowered lantus to 30 units. Related to Diarrhea, unspecified DM and cholesterol h igh. Atorva 40 to pretect against CV disease. Related to Hyperlipidemia Sees Dr. Martinez-- work ing in coordination to help pt with weight loss. Will email his plan to ensure she is aware and assisting him with meds as much as possible that don't cause weight gain. Related to Schizoaffective disorder, bipolar type On multiple meds, bu t wanting to lose weight--BP controlled and continue wieght loss measures. Related to Essential (primary) hypertension Sees Dr. Mathur, Is on insulin and A1c's are in the 7's --unable to get ozumpic or victosa, but taking bydurian and helping Bs, but weight not decreasing. , Related to Type 2 diabetes mellitus without complications appears to be relate d to PND and congestion. Zyrtec 10mg liquid X 2 weeks. Related to Pharyngitis Sees Dr. Martinez--need to work in coordination to help pt with weight loss. Will email his plan to ensure she is aware and assistning him with meds as much as possible that don't cause weight gain. Related to Schizoaffective disorder, bipolar type Was on Niacin and Lo pid--d/c and continue Crestor 40 Related to Mixed hyperlipidemia On multiple meds, bu t wanting to lose weight. Related to Essential (primary) hypertension Sees Dr. Mathur, Is on insulin and A1c's are in the 7's and would like to consider Ozempic or victosa for weight loss and decrease insulin, but would need to Dr. Banks. Will call and see about coordination Related to Type 2 diabetes mellitus without complications Giving encouragement to exercise Related to Body mass index (BMI) 45.0-49.9, adult Dietary management e ducation, guidance, and counseling Related to Body mass index (BMI) 45.0-49.9, adult Lifestyle education regarding di et Related to Body mass index (BMI) 45.0-49.9, adult Giving encouragement to exercise Related to Body mass index (BMI) 45.0-49.9, adult Giving encouragement to exercise Related to Other Counseling Lifestyle education regarding di et Related to Dietary counseling Assessments Type Assessment Date No Information Goals Health Concern Goal Type Priority Status Date Type 2 diabetes mellitus without complications - E11.9 Walk 10 minutes a day. MLRD - 4/27/20: Pt reports he hasn't been walking @ all right now. MLRD07/06/20: Staff member reports she will work on this w/pt. Negotiated Goal Type 2 diabetes mellitus without complications - E11.9 Pt to not skip meals. Provider Goal Type 2 diabetes mellitus with hypoglycemia without coma - E11.649 Pt to keep carb intake consistent @ meals (60 g/meal) Negotiated Goal Patient Care Teams Name Effective Dates (start - stop) Status Members No Information
--- OUTSIDE RECORDS SUMMARY | 2025-06-06 21:21 | XMS_ITS | Patient Health Record ---
Author Organization [facility] Address [address] [place] [address] Care Team Providers Care Claims Examiner Name Role Phone MarlaBety theodore Primary Care Provider Allergies No Known Allergies Reason For Referral No Information Medications Medication SIG (Take, Route, Frequency, Duration) Notes Start Date End Date Status Divalproex Sodium ER 500 MG Tablet Extended Release 24 Hour @@ TAKE 4 TABLETS BY MOUTH EVERY DAY AT BEDTIME FOR MOOD STABILIZER Active Deep Sea Nasal [place] 0.65 % Solution 2 sprays in each nostril as needed Active Docusate Sodium 100 MG Capsule 2 tablets as needed Active Atorvastatin Calcium 40 MG Tablet 1 tablet Orally Once a day Active Calcium Carbonate 260 MG Tablet Chewable 2 tablets as needed Orally three times a day Active Acetaminophen 325 MG Tablet 2 tablets as needed Orally every 6 hrs Active Aspirin 81 81 MG Tablet Chewable 1 tablet Orally Once a day Active Triple Antibiotic 3.5-400-5000 Ointment as needed Active FeroSul 325 (65 Fe) MG Tablet 1 tablet Orally once a day; Duration: 90 days Active Lantus 100 UNIT/ML Solution 15 units Subcutaneous HS DC previous 10 unit order of lantus 06/26/2022 Active amLODIPine Besylate 10 MG Tablet 1 tablet Orally once a day Not-Taking Gabapentin 100 MG Capsule 1 capsule PO twice a day 2022 Active Latuda 80 MG Tablet 1 tablet Orally once a day Not-Taking Sertraline HCl 25 MG Tablet 1 tablet Orally Once a day Not-Taking Alcohol - Swab as directed topical, before insulin injections three times a day; Duration: 90 days 05/26/2022 Not-Taking Haloperidol 2 MG Tablet 1 tablet Orally twice a day Not-Taking Invega Trinza 819 MG/2.63ML Suspension Prefilled Syringe INJECT 2.63ML (819MG) INTRAMUSCULARLY EVERY 3 MONTHS Active hydrOXYzine HCl 50 MG Tablet 1 tablet Orally every 6 hrs Active Prazosin HCl 1 MG Capsule TAKE ONE CAPSULE BY MOUTH AT BEDTIME Active Sertraline HCl 100 MG Tablet 2 tablets Orally once a day Active clonazePAM 0.5 MG Tablet TAKE ONE TABLET BY MOUTH FOUR TIMES A DAY 06/05/2022 Active Stomach Relief 525 MG/30ML Suspension 15 ml as needed Orally four times a day Active Victoza 18 MG/3ML Solution Pen-injector 1.8mg Subcutaneous as directed Active traZODone HCl 50 MG Tablet TAKE ONE TABLET (50 MG TOTAL) AT BEDTIME Active Jardiance 25 MG Tablet 1 tablet Orally Once a day Active Irbesartan 150 MG Tablet 1 tablet Orally Once a day Not-Taking metFORMIN HCl ER 500 MG Tablet Extended Release 24 Hour 2 tablets Orally twice a day Active Vitamin D 50 MCG (1999 [place]) Capsule 1 capsule PO Once a day Active HumaLOG KwikPen 100 UNIT/ML Solution Pen-injector inject per scal before lunch and dinner Active Insta-Glucose 77.4 % Gel as directed Orally as needed Active Atenolol 100 MG Tablet 1 tablet Orally once a day Not-Taking [place] Cough Drops 1 lozenge every 4 hours as needed Active Social History Tobacco Use: Social History Observation Description Date Details (start date - stop date) Never Smoker NA - NA Sex Assigned At : Social History Observation Description Sex Assigned At Male Social History Tobacco Use (12+): Social Info Question Answer Notes Smoking: Are you a smoker? Never Communication: Social Info Question Answer Notes Communication Needs: Do you have specific communicatio n needs? No Sexual History (16+): Social Info Question Answer Notes Sexual History Had sex in the past 12 months? Yes Use protection? No Have you ever had a Sexually transmitted disease ? No Drugs/Alcohol (12+): Social Info Question Answer Notes Drugs Have you used drugs other than those for medical reasons in the past 12 months? Yes Marijuana? Yes Advance Directive (18+): Social Info Question Answer Notes Advance Directive: Do you have an Advance Directive? N o Advance Directive packet provided? No Reason packet not provided: Guardian not present/Pt unable to supply information Advance Directive notarized and scanned to chart? No Depression Screen Not Perfor med: Social Info Question Answer Notes Reason: Reason: Medical Reason Type of Medical Reason: Treatment not tolerated HIV Testing (15-65): Social Info Question Answer Notes Have you ever been tested for HIV? Have you been teste d for HIV? No Would you like to be tested? No Patient Refused testin PRAPARE Social Info Question Answer Notes PRAPARE Date Completed/Updated: 04/12/2022 What is your current housing situation? I have h ousing Are you worried about losing your housing? No What is the highest level of school that you have finished? 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 Check all that apply Food,Clothing,Utilities,Medicine or any health care (medical, dental, mental health or vision),Phone,I do not have problems meeting my needs Has lack of transportation k ept you from medical appointments, meetings, work or from getting things needed for daily living? No How often do you see or talk to people that you care about and feel close to? (For example: talking to friends on the phone, visiting friends or family, going to zoroastrian or club meetings) More than 5 times a week How stressed are you? Stress is when someone feels tense, nervous, anxious, or cant sleep at night because their mind is troubled A little bit In the past year have you sp ent more than 2 nights in a row in a skilled nursing, half-way, senior care center, or juvenile correctional facility? No Are you a refugee? No What country are you from? [place] Do you feel physically and e motionally safe where you currently live? Yes In the past year, have you b een afraid of your partner or ex-partner? No PRAPARE Score: 10 Brief Screen (13+)/AUDIT (18 +): Social Info Question Answer Notes SBIRT (2018 Edition) Patient refused/dec lined SBIRT screening at this time? No 1. How often do you have a drink containing alcohol? Monthly or less Reason: Medical Reason 2. How many drinks containing alcohol do you have on a typical day when you are drinking? 1 or 2 3. How often do you have five or more drinks on one occasion? Less than monthly SCORE 2 Interpretation Negative How many times in the past year have you used an illegal drug or used a prescription medication for non-medical reasons? 1 or more Total Count 1 Interpretation Positive Nutrition and Physical Activ ity: Social Info Question Answer Notes Adult Counseling (18 and older) Was physical activity counseling given? Yes Was nutrition counseling given? Yes Immunizations (6mo+): Social Info Question Answer Notes Influenza (6mo+) Have you had a Flu shot in the past y ear? Yes What facility? (See note) 2020 Problems Problem Type SNOMED Code ICD Code Onset Dates Problem Status W/U Status Risk Notes Problem Type II diabetes mellitus without complication (538171068) Type 2 diabetes mellitus without complications (E11.9) Active confirmed Problem Body mass index 40+ - severely obese (014742867) Body mass index (BMI) of 40.1 to 44.9 in adult (Z68.41) Active confirmed Problem Hyperlipidaemia (45714566) Hyperlipidemia, unspecified hyperlipidemia type (E78.5) Active confirmed Problem Vitamin D deficiency (42077719) Vitamin D deficiency (E55.9) Active confirmed Problem Intermittent explosive disorder (36687701) Intermittent explosive disorder in adult (F63.81) Active confirmed Problem Sleep apnea (99614968) Sleep apnea, unspecified type (G47.30) Active confirmed Problem History of pulmonary embolus (503988715) History of pulmonary embolism (Z86.711) Active confirmed Problem Polyneuropathy due to type 2 diabetes mellitus (696611778) Diabetic polyneuropathy associated with type 2 diabetes mellitus (E11.42) Active confirmed Problem Intellectual disability (380003122) Intellectual disability (F79) Active confirmed Problem Primary hypertension (79182161) Primary hypertension (I10) Active confirmed Problem Mixed anxiety and depressive disorder (673718701) Depression with anxiety (F41.8) Active confirmed Plan Of Treatment No Information Insurance Providers Payer Name Payer Address Payer Phone Subscriber Number Group Number Insured Name Patient Relationship to Insured Coverage Start Date Coverage End Date [facility] Dual Complete [address] [place] [address] [id number] Zaire Ceja Self - patient is the insured Medicaid [address] [place] [phone] [id number] Zaire Nassar Self - patient is the insured [facility] DUAL COMPLETE [address] [address] [place] [address] [phone] [id number] Zaire Nassar Self - patient is the insured Medicaid [address] [place] [phone] [id number] Zaire Nassar Self - patient is the insured Medical (General) History Medical History History ICD Code Type 2 diabetic hypertension hyperlipidemia constipation intermittent explosive disorder anticoagulant depression nightmares pulmonary embolism Surgical History Surgery Date(Month/Year) appendectomy Hospitalization History Reason Date(Month/Year) syncope 03/2022
[2025-06-06 21:35] VITALS: BP 136/82; PULSE 105; RESP 18; TEMP 36.6; O2SAT 99; BMI 30.7
--- NOTE | 2025-06-06 21:57 | W.ED.ANXIETY ---
HPI - Anxiety General: Chief Complaint: Anxiety Stated Complaint: high anxiety Time Seen by Provider: 06/06/25 21:39 History of Present Illness: HPI: Patient well-known to the emergency department for various medical problems. Has social services counselor that present with him to the department for his home health care for multiple behavioral health issues. Patient states he has been more stressed recently without multiple caregivers coming into his home. States that his home medications had not improved his anxiety symptoms. Denies suicidality or homicidality. Requests oral medications for improvement of his acute anxiety this evening. No other complaints. REVIEW OF SYSTEMS: 10 systems reviewed and otherwise unremarkable except for those noted in HPI. PHYSCIAL EXAM: Triage vital signs reviewed Gen: A&O NAD HEENT: NCAT, EOMI, not icteric. External ears normal. No rhinorrhea. Moist mucous membranes. Neck: Supple, full range of motion, no observable masses, No meningeal sign. Lungs: No Respiratory distress. CV: RRR, no edema. Abdomen: Soft, nondistended, No rebound tenderness. MSK: No joint swelling, no redness. Skin: No rashes, petechiae, lesions. Normal color per patient. Neuro: Normal Gait, Grossly intact. Psych: Mildly anxious in appearance. PROCEDURES: N/A Related Data Home Medications ?Medication ?Instructions ?Recorded ?Confirmed gabapentin 300 mg capsule 300 mg PO BID 10/11/22 06/02/25 (Neurontin) bismuth subsalicylate 262 mg/15 mL 262 mg PO Q4H PRN Indigestion 03/16/23 06/02/25 oral suspension (Stomach Relief) acetaminophen 500 mg tablet (Pain 1,000 mg PO Q6H PRN Pain 10/24/23 06/02/25 Reliever (acetaminophen)) aspirin 81 mg tablet,delayed 81 mg PO DAILY 10/24/23 06/02/25 release empagliflozin 25 mg tablet 25 mg PO DAILY 10/24/23 06/02/25 (Jardiance) atorvastatin 80 mg tablet 80 mg PO BEDTIME 12/31/23 06/02/25 glucose 4 gram chewable tablet 16 g PO PRN PRN LOW BLOOD SUGAR 12/31/23 06/02/25 ibuprofen 600 mg tablet 600 mg PO TID PRN Pain 12/31/23 06/02/25 promethazine 25 mg tablet 25 mg PO Q6H PRN Nausea And 12/31/23 06/02/25 Vomiting albuterol sulfate 90 mcg/actuation 2 puff inhalation Q4H PRN 08/05/24 06/02/25 aerosol inhaler Shortness Of Breath icosapent ethyl 1 gram capsule 2 g PO BID 08/05/24 06/02/25 (Vascepa) loperamide 2 mg capsule 2 mg PO Q6H PRN Diarrhea 08/05/24 06/02/25 (Anti-Diarrheal (loperamide)) vitamins A,C,Y-mjmy-hyzobv 4,296 1 cap PO BID 08/05/24 06/02/25 mcg-226 mg-90 mg capsule (PreserVision AREDS) cetirizine 10 mg tablet 10 mg PO DAILY PRN allergies 10/23/24 06/02/25 neomycin-bacitracn Zn-polymyx 3.5 1 applic topical DAILY PRN Skin 11/27/24 06/02/25 mg-400 unit-5,000 unit/gram top Irritation oint (Triple Antibiotic) cholecalciferol (vitamin D3) 50 50 mcg PO DAILY 02/19/25 06/02/25 mcg (2,000 unit) tablet nitroglycerin 0.4 mg sublingual 0.4 mg sublingual Q5M PRN 05/21/25 06/02/25 tablet Previous Rx's ?Medication ?Instructions ?Recorded omeprazole 40 mg capsule,delayed 40 mg PO DAILY #30 caps 04/19/24 release ondansetron 4 mg disintegrating 4 mg PO Q8H PRN nausea and 07/02/24 tablet vomiting #20 tabs menthol 10 % topical cream 1 applic topical TID PRN muscle 09/03/24 (Biofreeze (menthol)) pain #85 grams glucagon 1 mg solution for See Rx Instructions .Route 12/17/24 injection (Glucagon Emergency Kit) .COMPLEX #1 ea apixaban 5 mg tablet (Eliquis) See Rx Instructions .Route 01/21/25 .COMPLEX #180 tabs pioglitazone 45 mg tablet See Rx Instructions .Route 02/23/25 .COMPLEX #30 tabs insulin lispro 100 unit/mL See Rx Instructions .Route 02/27/25 subcutaneous pen (Humalog KwikPen .COMPLEX #15 mL (U-100) Insulin) metformin 1,000 mg tablet See Rx Instructions .Route 02/27/25 .COMPLEX #31 tabs zonisamide 100 mg capsule See Rx Instructions .Route 03/02/25 .COMPLEX #62 caps tirzepatide 12.5 mg/0.5 mL See Rx Instructions .Route 04/20/25 subcutaneous pen injector .COMPLEX #2 mL (Mounjaro) diazepam 5 mg tablet 5 mg PO TID anxiety #90 tabs 05/15/25 irbesartan 75 mg tablet 75 mg PO DAILY #90 tabs 05/21/25 metoprolol succinate 50 mg 50 mg PO DAILY #90 tabs 05/21/25 tablet,extended release 24 hr aripiprazole 30 mg tablet 15 mg (1/2 x 30 mg) PO BID 30 days 05/26/25 #30 tabs buspirone 10 mg tablet 10 mg PO BID #60 tabs 05/26/25 divalproex 500 mg tablet,extended 2,000 mg (4 x 500 mg) PO BEDTIME 05/26/25 release 24 hr 30 days #120 tabs venlafaxine 150 mg 300 mg (2 x 150 mg) PO QAM 30 days 05/26/25 capsule,extended release 24 hr #60 caps Allergies Allergy/AdvReac Type Severity Reaction Status Date / Time No Known Allergies Allergy Verified 06/02/25 14:14 [facility] ED PFSH: Medical History (Updated 06/06/25 @ 22:01 by Marc Moy MD) Coronary-myocardial bridge Peripheral neuropathy Type 2 diabetes mellitus Hyperlipidemia Hypertension Pulmonary embolism Other reactions to severe stress Bipolar 1 disorder Most recent episode depressed [facility] Surgical History History of appendectomy Social History Smoking and tobacco/nicotine status: current some day tobacco/nicotine user (some vaping) e-cigarettes Alcohol intake: current Alcohol intake frequency: few times a month Substance/Drug Use: never Marital status: Single Course Vital Signs: Vital signs: Vital Signs Temperature 97.9 F 06/06/25 21:35 Pulse Rate 105 H 06/06/25 21:35 Respiratory Rate 18 06/06/25 21:35 Blood Pressure 136/82 06/06/25 21:35 Pulse Oximetry 99 06/06/25 21:35 Oxygen Delivery Me thod Room Air 06/06/25 21:35 MDM - Anxiety Medical Decision Making MEDICAL DECISION MAKING: Differential diagnoses considered but not limited to: Acute anxiety, occult suicidality or homicidality, occult decompensated schizophrenia, organic medical process, life-threatening process. Vitals nonactionable. Given history, examination, and pretest risk factors, feel patient is experiencing acute anxiety without homicidality or suicidality. Patient has no other complaints at this time and caregivers in the room with him do not note any other concerns or discrepancies from patient story. Patient given 50 mg oral hydroxyzine with good effect in the department. Discharged home to outpatient follow-up with improved symptoms. DISPO: VENICE Moy MD Staff physician, [facility] emergency department [phone] No radiology studies performed this visit Discharge Plan Discharge Patient Disposition: Home Clinical Impression: Anxiety Condition: Stable Prescriptions: No Action gabapentin [Neurontin] 300 mg capsule 300 mg PO BID omeprazole 40 mg capsule,delayed release(DR/EC) 40 mg PO DAILY Qty: 30 0RF loperamide [Anti-Diarrheal (loperamide)] 2 mg capsule 2 mg PO Q6H PRN (Reason: Diarrhea) albuterol sulfate 90 mcg/actuation HFA aerosol inhaler 2 puff inhalation Q4H PRN (Reason: Shortness Of Breath) icosapent ethyl [Vascepa] 1 gram capsule 2 g PO BID PreserVision AREDS 4,296 mcg-226 mg-90 mg capsule 1 cap PO BID Triple Antibiotic 3.5mg-400 unit- 5,000 unit/gram ointment 1 applic topical DAILY PRN (Reason: Skin Irritation) cholecalciferol (vitamin D3) 50 mcg (2,000 unit) tablet 50 mcg PO DAILY aripiprazole 30 mg tablet 15 mg PO BID 30 Days Qty: 30 1RF Rx Instructions: Take one-half tablet twice a day divalproex 500 mg tablet extended release 24 hr 2,000 mg PO BEDTIME 30 Days Qty: 120 1RF venlafaxine 150 mg capsule,extended release 24hr 300 mg PO QAM 30 Days Qty: 60 1RF buspirone 10 mg tablet 10 mg PO BID Qty: 60 1RF Rx Instructions: Take one tablet twice a day, between doses of diazepam nitroglycerin 0.4 mg tablet, sublingual 0.4 mg sublingual Q5M PRN Rx Instructions: do not exceed 3 doses per episode irbesartan 75 mg tablet 75 mg PO DAILY Qty: 90 0RF metoprolol succinate 50 mg tablet extended release 24 hr 50 mg PO DAILY Qty: 90 3RF ondansetron 4 mg tablet,disintegrating 4 mg PO Q8H PRN (Reason: nausea and vomiting) Qty: 20 0RF Glucagon Emergency Kit (human) 1 mg recon soln See Rx Instructions .ROUTE .COMPLEX Qty: 1 0RF Dose Instruction: inject 1mg SUBCUTANEOUSLY EVERY 20 MINUTES NEEDED FOR hypoglycemia UNTIL target blood sugar attained Rx Instructions: inject 1mg SUBCUTANEOUSLY EVERY 20 MINUTES NEEDED FOR hypoglycemia UNTIL target blood sugar attained Eliquis 5 mg tablet See Rx Instructions .ROUTE .COMPLEX Qty: 180 3RF Dose Instruction: TAKE 1 TABLET BY MOUTH TWICE DAILY Rx Instructions: TAKE 1 TABLET BY MOUTH TWICE DAILY pioglitazone 45 mg tablet See Rx Instructions .ROUTE .COMPLEX Qty: 30 3RF Dose Instruction: TAKE 1 TABLET BY MOUTH ONCE DAILY Rx Instructions: TAKE 1 TABLET BY MOUTH ONCE DAILY insulin lispro [Humalog KwikPen Insulin] 100 unit/mL insulin pen See Rx Instructions .ROUTE .COMPLEX Qty: 15 2RF Dose Instruction: WAITING FOR SCRIPT FOR DIRECTIONS Rx Instructions: WAITING FOR SCRIPT FOR DIRECTIONS metformin 1,000 mg tablet See Rx Instructions .ROUTE .COMPLEX Qty: 31 2RF Dose Instruction: TAKE 1 TABLET BY MOUTH ONCE DAILY Rx Instructions: TAKE 1 TABLET BY MOUTH ONCE DAILY zonisamide 100 mg capsule See Rx Instructions .ROUTE .COMPLEX Qty: 62 2RF Dose Instruction: TAKE 2 CAPSULES (200MG) BY MOUTH ONCE DAILY Rx Instructions: TAKE 2 CAPSULES (200MG) BY MOUTH ONCE DAILY Mounjaro 12.5 mg/0.5 mL pen injector See Rx Instructions .ROUTE .COMPLEX Qty: 2 5RF Dose Instruction: INJECT 12.5MG SUBCUTANEOUSLY EVERY 7 DAYS ON SUNDAY Rx Instructions: INJECT 12.5MG SUBCUTANEOUSLY EVERY 7 DAYS ON SUNDAY diazepam 5 mg tablet 5 mg PO TID Qty: 90 2RF aspirin 81 mg tablet,delayed release (DR/EC) 81 mg PO DAILY acetaminophen [Pain Reliever (acetaminophen)] 500 mg tablet 1,000 mg PO Q6H PRN (Reason: Pain) Jardiance 25 mg tablet 25 mg PO DAILY Biofreeze (menthol) 10 % cream 1 applic topical TID PRN (Reason: muscle pain) Qty: 85 0RF bismuth subsalicylate [Stomach Relief] 262 mg/15 mL suspension 262 mg PO Q4H PRN (Reason: Indigestion) atorvastatin 80 mg tablet 80 mg PO BEDTIME promethazine 25 mg tablet 25 mg PO Q6H PRN (Reason: Nausea And Vomiting) glucose 4 gram Tablet,Chewable 16 g PO PRN PRN (Reason: LOW BLOOD SUGAR) Rx Instructions: for bs lower than 60 ibuprofen 600 mg tablet 600 mg PO TID PRN (Reason: Pain) cetirizine 10 mg Tablet 10 mg PO DAILY PRN (Reason: allergies) Discharge Orders: Discharge ED (Routine); Ordered 06/06/25 Ordered By: Marc Moy Referrals: Bautista Ruiz MD [Primary Care Provider, Family Practice] Discharge Diet: Advance as tolerated Discharge Activity: Resume usual activity Patient Instructions: Anxiety (ED), Opioid Safety, Pain Management, Patient Portal & Jyoti Instructions Activity Restrictions/Additional Instructions: It has been a pleasure caring for you in the emergency department. Please ensure that you follow-up with your primary care physician for review of all data obtained during this encounter including any incidental findings and laboratory values. Keep in mind that if your condition worsens in any way, I strongly recommend that you return to the emergency department for repeat evaluation immediately. Print Language: Chinese Coding Level of Care Code ED Dictating Machine Typist for Dasha Nix
== END 2025-06-06 22:38 | disposition home or self-care (01) ==
PROVIDERS: Emergency Provider General Practice; PCP Family Medicine
DX: F41.9 Anxiety disorder, unspecified (principal); Z79.01 Long term (current) use of anticoagulants; Z79.4 Long term (current) use of insulin; Z79.84 Long term (current) use of oral hypoglycemic drugs; Z79.82 Long term (current) use of aspirin; F17.290 Nicotine dependence, other tobacco product, uncomplicated; E78.5 Hyperlipidemia, unspecified; I10 Essential (primary) hypertension; E11.42 Type 2 diabetes mellitus with diabetic polyneuropathy
CPT/HCPCS: 99283; J9999

== ENCOUNTER → 2025-06-09 10:11 | Outpatient (BNVA) | payer OTHER, MEDICAID, SELFPAY | PROVIDERS: PCP Family Medicine; Visit Provider Podiatrist Foot & Ankle Surgery | DX: E11.42 Type 2 diabetes mellitus with diabetic polyneuropathy (principal); L60.3 Nail dystrophy; L03.90 Cellulitis, unspecified; Z79.84 Long term (current) use of oral hypoglycemic drugs; Z79.4 Long term (current) use of insulin; L03.116 Cellulitis of left lower limb | CPT/HCPCS: 11721 ==

== ENCOUNTER 2025-06-18 22:17 | Emergency (ER) | payer OTHER, MEDICAID, SELFPAY ==
--- OUTSIDE RECORDS SUMMARY | 2021-07-05 04:51 | XMS_ITS | Continuity of Care Document ---
Author Organization [facility] Address [address] [place] [address] Phone Care Team Providers Care Cash Management Coordinator Name Role Phone KainSeraSakina Unavailable Unavailable Allergies, Adverse Reactions, Alerts Substance Reaction Status Criticality No Known Allergies Active No Inform ation Medications Medication Instructions Dosage Effective Dates (start - stop) Status Comments Saline Mist 0.65 % nasal spray aerosol Use as needed for dry/agitated nose - Active Saline Nasal (aloe vera) gel Use as [...] , PT IS SEEING DR JOHNSON AT [facility] 03. Tums 200 mg calcium (500 mg) chewable tablet chew 2 tablets by oral route 3 times every day 2 tablets - Active acetaminophen 325 mg tablet take 2 tablet by oral route every 6 hours as needed 650 MG - Active Pen Needle 31 gauge x 16 Use as directed to inject Victoza once [...] bedtime as needed for constipation - Active amlodipine 10 mg tablet TAKE 1 TABLET BY MOUTH EVERY MORNING FOR BLOOD PRESSURE - Active atenolol 100 mg tablet take 1 tablet by oral route every day - Active Avapro 75 mg tablet take 1 tablet by oral route every day - Active guanfacine 1 mg tablet take 1 tablet by oral route 3 times every day 1 MG - Active haloperidol 2 mg tablet take 1 tablet by oral route 2 times every day at 8am and 12pm, may take a 3rd tab as needed - Active Invega Trinza 819 mg/2.625 mL intramuscular syringe inject 2.63 milliliter by intramuscular route every 3 months 819 MG - Active Triple Antibiotic 3.5 mg-400 unit-5,000 [...] Diagnoses Date Provider Providers Copied on Encounter [facility], [address] [place] [address], [id number], [place] tel:[phone] [facility] No Information 1 Kain Presley. [address] [place], [address], [place]. tel:[phone] [facility], [address] [place] [address], [id number], tel:[phone] [facility] Schizoaffect alessandra Disorder, Bipolar typeIntermit tent Explosive DisorderMode rate intellectual disabilities Major depressive disorder, recurrent, moderate 1 Heather Hay. [address] [place] [address], [id number], [place]. tel:[phone] OFFICE/OUTPA TIENT VISIT EST [facility], [address] [place] [address] [place], [place], [id number], [place] tel:[phone] [facility] trilogy f/u (chief complaint)severo alfonso (chief complaint) Obstructive sleep apneaType 2 diabetes with hyperglycemi a 1 Ricci Metzger. [address] [place] [address], [id number], [place]. tel:[phone] Referring Provider: Domenica Wynne, [address] [place] [address], [address]. tel:[phone] [facility], [address] [place] [address] [place], [place], [id number], [place] tel:[phone] [facility] Morbid (severe) obesity with alveolar hypoventilat ionChronic respiratory failure with hypercapnia 1 Ricci Metzger. [address] [place] [address], [id number], [place]. tel:[phone] TRANS CARE MGMT [address] [facility], [address] [place] [address] [place], [place], [id number], [place] tel:[phone] [facility] Hospital F/U (chief complaint) Body mass index (BMI) 40.0-44.9, adultObstruc tive sleep apneaType 2 diabetes with hyperglycemi a 1 Ricci Metzger. [address] [place] [address], [id number], [place]. tel:[phone] Referring Provider: Domenica Wynne, [address] [place] [address], [address]. tel:[phone] [facility], [address] [place] [address] [place], [place], [id number], [place] tel:[phone] [facility] Deposits [accretions] on teeth 1 Sj Rowe. [address] [place], [place], [id number], [place]. tel:[phone] Referring Provider: Jae Powell, [address] [place], [address]. tel:[phone] lting Provider: Chastity Mackenzie, [address] [place], [address]. tel:[phone] [facility], [facility] [facility] [place], [place], [id number], [place] tel:[phone] [facility] No Information 1 Glen Braden. [address] [place] [address] , [place], [place], [id number], [place]. tel:[phone] TRANS CARE [facility] [address] [facility], [address] [facility] [place], [place], [id number], [place] tel:[phone] [facility] Hospital f/u (chief complaint) Personal history of pulmonary embolismType 2 diabetes with hyperglycemi a 1 Ricci Metzger. [address] [place] [address], [id number], [place]. tel:[phone] Referring Provider: Domenica Wynne, [address] [place] [address], [address]. tel:[phone] TRANS CARE [facility] [address] [facility], [address] [facility] [place], [place], [id number], [place] tel:[phone] [facility] Follow Up of depression (chief complaint)Hos pital f/u (chief complaint) Type 2 diabetes with hyperglycemi aSchizoaffec tive Disorder, Bipolar type Mar-2 1 Ricci Metzger. [address] [place] [address], [id number], [place]. tel:[phone] Referring Provider: Domenica Wynne, [address] [place] [address], [address]. tel:[phone] PSYTX PT&/FAMILY [address] [facility], [address] [place] [address] [place], [place], [id number], [place] tel:[phone] [facility] Schizoaffect alessandra Disorder, Bipolar typeIntermit tent Explosive DisorderMode rate intellectual disabilities Major depressive disorder, recurrent, moderate Jan- 1 Heather Hay. [address] [place] [address], [id number], [place]. tel:[phone] Referring Provider: Bharti Leo, [address] [place] [address], [address]. tel:[phone] TRANS CARE MGMT [address] [facility], [address] [place] [address], [id number], [place] tel:[phone] [facility] Chest pain (chief complaint)severo betes (chief complaint)Dys pnea (chief complaint) Chest painType 2 diabetes mellitus with hyperglycemi aType 2 diabetes mellitus with hypoglycemia without coma Mar-1 0- 1 Ricci Metzger. [address] [place] [address], [id number], [place]. tel:[phone] Referring Provider: Domenica Wynne, [address] [place] [address], [address]. tel:[phone] [facility], [address] [place] [address], [id number], tel:[phone] [facility] No Information Jan-0 8 1 Obdulio Benavides. [address] [place] [address], [id number], [place]. tel:[phone] [facility], [address] [place] [address], [id number], [place] tel:[phone] [facility] Schizoaffect alessandra Disorder, Bipolar typeIntermit tent Explosive DisorderMode rate intellectual disabilities Major depressive disorder, recurrent, moderate Mar-0 1-202 1 Obdulio Benavides. [address] [place] [address], [id number], [place]. tel:[phone] [facility], [address] [place] [address], [id number], [place] tel:[phone] [facility] No Information Dec- 1 Ricci Metzger. [address] [place] [address], [id number], [place]. tel:[phone] PSYTX PT&/FAMILY [address] [facility], [address] [place] [address] [place], [place], [id number], [place] tel:[phone] [facility] Schizoaffect alessandra Disorder, Bipolar typeIntermit tent Explosive DisorderMode rate intellectual disabilities Major depressive disorder, recurrent, moderate 1 Heather Hay. [address] [place] [address], [id number], [place]. tel:[phone] Referring Provider: Bharti Leo, [address] [place] [address], [address]. tel:[phone] [facility], [address] [place] [address], [id number], [place] tel:[phone] [facility] No Information 1 Ricci Metzger. [address] [place] [address], [id number], . tel:[phone] [facility], [address] [place] [address], [id number], tel:[phone] [facility] Dental caries, unspecifiedE ncounter for dental exam and cleaning w/o abnormal findings 1 Sj Rowe. [address] [place] [address], [id number], [place]. tel:[phone] Referring Provider: Jae Powell, [address] [place] [address], [address]. tel:[phone] [facility], [address] [place] [address], [id number], tel:[phone] [facility] hospital f/u (chief complaint)hyp ertension (chief complaint)severo betes (chief complaint)dep ression (chief complaint) Other specified respiratory disordersHyp ertensionTyp e 2 diabetes mellitus with hypoglycemia without coma 1 Ricci Metzger. [address] [place] [address], [id number], . tel:[phone] Referring Provider: Domenica Wynne, [address] [place] [address], [address]. tel:[phone] PSYTX PT&/FAMILY [address] [facility], [address] [place] [address], [id number], [place] tel:[phone] [facility] Schizoaffect alessandra Disorder, Bipolar typeIntermit tent Explosive DisorderMode rate intellectual disabilities Major depressive disorder, recurrent, moderate 1 Heather Hay. [address] [place], [place], [id number], [place]. tel:[phone] Referring Provider: Bharti Leo, [address] [place], [address]. tel:[phone] [facility], [address] [place] [address] [place], [place], [id number], [place] tel:[phone] [facility] No Information 1 Ricci Metzger. [address] [place] [address], [id number], [place]. tel:[phone] OFFICE/OUTPA TIENT VISIT EST [facility], [address] [place] [address] [place], [place], [id number], [place] tel:[phone] [facility] Chest pain (chief complaint)Col d symptoms (chief complaint) Chest painUpper respiratory infection 0 0 Ricci Metzger. [address] [place] [address], [id number], [place]. tel:[phone] Referring Provider: Domenica Wynne, [address] [place] [address], [address]. tel:[phone] [facility], [address] [facility] [place], [place], [id number], [place] tel:[phone] [facility] No Information 0 Nathalie Mcdermott. [address] [place] [address], [id number], [place]. tel:[phone] [facility], [address] [place] [address] [place], [place], [id number], [place] tel:[phone] [facility] Schizoaffect alessandra Disorder, Bipolar typeIntermit tent Explosive DisorderMode rate intellectual disabilities Major depressive disorder, recurrent, moderate 0 Michelle Yang. [address] [place], [place], [id number], [place]. tel:[phone] Referring Provider: Celia Briseno, [address] [place], [address]. tel:[phone] [facility], [address] [place], [place], [id number], [place] tel:[phone] [facility] Schizoaffect alessandra Disorder, Bipolar typeIntermit tent Explosive DisorderMode rate intellectual disabilities Major depressive disorder, recurrent, moderate Nov-2 0-202 0 Michelle Yang. [address] [place], [place], [id number], [place]. tel:[phone] [facility], [address] [place], [place], [id number], [place] tel:[phone] [facility] Schizoaffect alessandra Disorder, Bipolar typeIntermit tent Explosive DisorderMode rate intellectual disabilities Major depressive disorder, recurrent, moderate Oct-3 0-202 0 Michelle Yang. [address] [place] [address], [id number], [place]. tel:[phone] Referring Provider: Celia Briseno, [address] [place] [address], [address]. tel:[phone] OFFICE/OUTPA TIENT NURSE VISIT EST [facility], [address] [place], [place], [id number], [place] tel:[phone] [facility] [place]: TB Test (chief complaint) Encounter for screening for respiratory tuberculosis 0 5-202 0 Ricci Metzger. [address] [place], [place], [id number], [place]. tel:[phone] Referring Provider: Domenica Wynne, [address] [place] [address], [address]. tel:[phone] [facility], [address] [place], [place], [id number], [place] tel:[phone] [facility] Encounter for dental exam and cleaning w abnormal findingsDepo sits [accretions] on teeth Aug-0 2-202 0 Sj Rowe. [address] [place], [place], [id number], [place]. tel:[phone] Referring Provider: Alexey Hood, [address] [place] [address], [address]. tel:[phone] lting Provider: Chastity Mackenzie, [address] [place] [address], [address]. tel:[phone] [facility], [address] [place], [place], [id number], [place] tel:[phone] [facility] Schizoaffect alessandra Disorder, Bipolar typeIntermit tent Explosive DisorderMode rate intellectual disabilities Major depressive disorder, recurrent, moderate Sep-2 0 Michlele Yang. [address] [place] [address], [id number], [place]. tel:[phone] [facility], [address] [place], [place], [id number], [place] tel:[phone] [facility] Schizoaffect alessandra Disorder, Bipolar typeIntermit tent Explosive DisorderMode rate intellectual disabilities Major depressive disorder, recurrent, moderate Sep-1 0 Michelle Yang. [address] [place] [address], [id number], [place]. tel:[phone] OFFICE/OUTPA TIENT VISIT EST [facility], [address] [place], [place], [id number], tel:[phone] [facility] Physical (chief complaint)DRV S (chief complaint)severo betes (chief complaint)hyp erlipidemia (chief complaint)hyp ertension (chief complaint) Encounter for general adult medical exam w abnormal findingsType 2 diabetes mellitus with hypoglycemia without comaSchizoaf fective Disorder, Bipolar typeModerate intellectual disabilities Hypertension Disorder of the skin and subcutaneous tissue, unspecifiedE ncounter for screening for respiratory tuberculosis Sep-0 0 Ricci Metzger. [address] [place] [address], [id number], . tel:[phone] Referring Provider: Domenica Wynne, [address] [place] [address], [address]. tel:[phone] OFFICE/OUTPA TIENT VISIT EST [facility], [address] [place] [address] , [place], [place], [id number], tel:[phone] [facility] ER F/U (chief complaint)severo alfonso (chief complaint) Body mass index (BMI) 45.0-49.9, adultType 2 diabetes mellitus with hypoglycemia without coma Sep-0 8-202 0 Ricci Metzger. [address] [place] [address], [id number], [place]. tel:[phone] Referring Provider: Domenica Wynne, [address] [place] [address], [address]. tel:[phone] [facility], [facility]3 [facility] , [place], [place], [id number], tel:[phone] [facility] Type 2 diabetes with hyperglycemi aType 2 diabetes mellitus with hypoglycemia without coma Sep-0 1-202 0 Ping Waddell. [address] [place] [address] [place], [place], [id number], [place]. tel:[phone] Referring Provider: Domenica Wynne, [address] [place] [address], [address]. tel:[phone] [facility], [facility]3 [facility] [place], [place], [id number], tel:[phone] [facility] Schizoaffect alessandra Disorder, Bipolar typeIntermit tent Explosive DisorderMode rate intellectual disabilities Major depressive disorder, recurrent, moderate Aug-2 6-202 0 Michelle Yang. [address] [place] [address], [id number], [place]. tel:[phone] Referring Provider: Celia Briseno, [address] [place] [address], [address]. tel:[phone] [facility], [address] [facility] [place], [place], [id number], tel:[phone] [facility] Schizoaffect alessandra Disorder, Bipolar typeIntermit tent Explosive DisorderMode rate intellectual disabilities Major depressive disorder, recurrent, moderate Aug-1 7-202 0 Michelle Yang. [address] [place], [place], [id number], [place]. tel:[phone] Referring Provider: Celia Briseno, [facility] [place], [address]. tel:[phone] PSYCH DIAGNOSTIC EVALUATION [facility], [address] [place] [address], [id number], [place] tel:[phone] [facility] Schizoaffect alessandra Disorder, Bipolar typeIntermit tent Explosive DisorderMode rate intellectual disabilities Major depressive disorder, recurrent, moderate 0 Heather Hay. [facility] [place], [place], [id number], [place]. tel:[phone] Referring Provider: Bharti Leo, [address] [place] [address], [address]. tel:[phone] [facility], [address] [place] [address] [place], [place], [id number], [place] tel:[phone] [facility] No Information 0 Glen Braden. [address] [place] [address], [id number], [place]. tel:[phone] TRANS CARE MGMT [address] [facility], [address] [place], [place], [id number], [place] tel:[phone] [facility] Hospital F/U (chief complaint) Type 2 diabetes mellitus with hypoglycemia without coma 0 Ricci Metzger. [address] [place] [address], [id number], [place]. tel:[phone] Referring Provider: Domenica Wynne, [address] [place] [address], [address]. tel:[phone] OFFICE/OUTPA TIENT NURSE VISIT EST [facility], [address] [facility] [place], [place], [id number], [place] tel:[phone] [facility] Hep B vaccine (chief complaint) Encounter for immunization 0 Ricci Metzger. [address] [place] [address], [id number], [place]. tel:[phone] Referring Provider: Domenica Wynne, [address] [place] [address], [address]. tel:[phone] OFFICE/OUTPA TIENT VISIT [facility], [address] [place], [place], [id number], [place] tel:[phone] [facility] Eye problems (chief complaint) Unspecified conjunctivit is 0 Ricci Metzger. [address] [place], [place], [id number], [place]. tel:[phone] Referring Provider: Domenica Wynne, [address] [place] [address], [address]. tel:[phone] Tele[facility] Error OFFICE/OUTPA TIENT VISIT [facility], [address] [place], [place], [id number], [place] tel:[phone] [facility] Schizoaffect alessandra Disorder, Bipolar typeIntermit tent Explosive DisorderMode rate intellectual disabilities Major depressive disorder, recurrent, moderate 0 Michelle Yang. [address] [place] [address], [id number], [place]. tel:[phone] Referring Provider: Celia Briseno, [address] [place] [address], [address]. tel:[phone] PSYTX PT&/FAMILY [address] [facility], [address] [place], [place], [id number], [place] tel:[phone] [facility] Schizoaffect alessandra Disorder, Bipolar typeIntermit tent Explosive DisorderMode rate intellectual disabilities Major depressive disorder, recurrent, moderate 0 Heather Hay. [address] [place] [address], [id number], [place]. tel:[phone] Referring Provider: Bharti Leo, [address] [place] [address], [address]. tel:[phone] [facility], [address] [place] [address], [id number], [place] tel:[phone] [facility] Follow Up of 6 Month (chief complaint)Fol low Up of Depression (chief complaint)Fol low Up of Knee Pain (chief complaint)Fol low Up of Diabetes (chief complaint)COV ID 19- Comments (chief complaint) Body mass index (BMI) 45.0-49.9, adultDiabete s due to underlying condition w hypoglycemia w/o comaMajor depressive disorder, recurrent, moderateHype rtensionObes ity Apr- 0 0 Ricci Metzger. [address] [place] [address], [id number], [place]. tel:[phone] Referring Provider: Domenica Wynne, [address] [place] [address], [address]. tel:[phone] [facility], [address] [place] [address] [place], [place], [id number], [place] tel:[phone] [facility] Schizoaffect alessandra Disorder, Bipolar typeIntermit tent Explosive DisorderMode rate intellectual disabilities Major depressive disorder, recurrent, moderate 0 Michelle Yang. [address] [place] [address], [id number], [place]. tel:[phone] Referring Provider: Celia Briseno, [address] [place] [address], [address]. tel:[phone] OFFICE/OUTPA TIENT VISIT EST [facility], [address] [place] [address] [place], [place], [id number], [place] tel:[phone] [facility] hospital fu (chief complaint)severo betes (chief complaint)obe sity (chief complaint)hyp ertension (chief complaint) ObesityDiabe trevin due to underlying condition w hypoglycemia w/o comaHyperten keila 0 Ricci Metzger. [address] [place] [address], [id number], [place]. tel:[phone] Referring Provider: Domenica Wynne, [address] [place] [address], [address]. tel:[phone] [facility], [address] [place] [address] [place], [place], [id number], tel:[phone] [facility] Schizoaffect alessandra Disorder, Bipolar typeIntermit tent Explosive DisorderMode rate intellectual disabilities Major depressive disorder, recurrent, moderate Campbell-1 5-202 0 Heather Hay. [address] [place] [address], [id number], [place]. tel:[phone] Referring Provider: Bharti Leo, [address] [place] [address], [address]. tel:[phone] [facility], [address] [facility] , [place], [place], [id number], tel:[phone] [facility] Schizoaffect alessandra Disorder, Bipolar typeIntermit tent Explosive DisorderMode rate intellectual disabilities Major depressive disorder, recurrent, moderate Campbell-0 - 0 Heather Hay. [address] [place] [address], [id number], [place]. tel:[phone] Referring Provider: Bharti Leo, [address] [place] [address], [address]. tel:[phone] [facility], [address] [facility] , [place], [place], [id number], tel:[phone] [facility] Schizoaffect alessandra Disorder, Bipolar typeIntermit tent Explosive DisorderMode rate intellectual disabilities Major depressive disorder, recurrent, moderate March-12 12- 0 Heather Hay. [address] [place] [address], [id number], [place]. tel:[phone] Referring Provider: Bharti Leo, [address] [place] [address], [address]. tel:[phone] [facility], [address] [facility] [place], [place], [id number], [place] tel:[phone] [facility] Follow Up of 2 Week (chief complaint)Fol low Up of Diabetes (chief complaint)COV ID 19- Comments (chief complaint)moo d disorder (chief complaint) Type 2 diabetes with hyperglycemi aMajor depressive disorder, recurrent, moderate May-2 7-202 0 Ricci Metzger. [facility]3 [place], [place], [id number], [place]. tel:[phone] Referring Provider: Domenica Wynne, [address] [place] [address], [address]. tel:[phone] [facility], [address] [place] [address], [id number], [place] tel:[phone] [facility] Schizoaffect alessandra disorder, bipolar typeIntermit tent explosive disorder 0 Michelle Yang. [address] [place], [place], [id number], [place]. tel:[phone] Referring Provider: Celia Briseno, [address] [place] [address], [address]. tel:[phone] [facility], [address] [place] [address], [id number], [place] tel:[phone] [facility] Follow Up of 2 Week (chief complaint)Fol low Up of Diabetes (chief complaint)COV ID 19- Comments (chief complaint) Type 2 diabetes with hyperglycemi a 0 Ricci Metzger. [address] [place] [address], [id number], [place]. tel:[phone] Referring Provider: Domenica Wynne, [address] [place] [address], [address]. tel:[phone] [facility], [address] [place] [address] [place], [place], [id number], [place] tel:[phone] [facility] Schizoaffect alessandra disorder, bipolar typeIntermit tent explosive disorder March-0 0 Michelle Yang. [facility] [place], [place], [id number], [place]. tel:[phone] Referring Provider: Celia Briseno, [address] [place], [address]. tel:[phone] [facility], [address] [place] [address] [place], [place], [id number], [place] tel:[phone] [facility] Diabetes due to underlying condition w hypoglycemia w/o comaType 2 diabetes with hyperglycemi aModerate intellectual disabilities March-0 0 Ricci Metzger. [address] [place], [place], [id number], [place]. tel:[phone] [facility], [address] [facility] [place], [place], [id number], tel:[phone] [facility] Schizoaffect alessandra disorder, bipolar typeIntermit tent explosive disorder March-0 - 0 Heather Hay. [address] [place] [address], [id number], [place]. tel:[phone] Referring Provider: Bharti Leo, [address] [place] [address], [address]. tel:[phone] [facility], [address] [place] [address] [place], [place], [id number], tel:[phone] [facility] Follow Up of 1 Week (chief complaint)Fol low Up of Hernandez (chief complaint)Fol low Up of Diabetes (chief complaint)COV ID 19- Comments (chief complaint) 2nd degree burn of back of hand, initial encounterTyp e 2 diabetes mellitus with hypoglycemia without coma Apr-3 0- 0 Ricci Metzger. [facility] [place], [place], [id number], [place]. tel:[phone] Referring Provider: Domenica Wynne, [address] [place] [address], [address]. tel:[phone] [facility], [address] [facility] [place], [place], [id number], [place] tel:[phone] [facility] Diabetes due to underlying condition w hypoglycemia w/o comaDietary counseling and surveillance Oth diabetes mellitus with hypoglycemia without coma Feb-2 0 Ping Waddell. [address] [place] [address] [place], [place], [id number], [place]. tel:[phone] OFFICE/OUTPA TIENT VISIT EST [facility], [address] [place] [address] [place], [place], [id number], [place] tel:[phone] [facility] acute (chief complaint)Bur ns (chief complaint)severo betes (chief complaint) 2nd degree burn of back of hand, initial encounterTyp e 2 diabetes mellitus with hypoglycemia without coma Apr-2 0 Ricci Metzger. [address] [place] [address], [id number], [place]. tel:[phone] Referring Provider: Domenica Wynne, [address] [place] [address], [address]. tel:[phone] OFFICE/OUTPA TIENT VISIT [facility], [address] [place] [address] [place], [place], [address], [place] tel:[phone] [facility] Follow Up of Hospital (chief complaint)Fol low Up of Hypoglycemia (chief complaint)COV ID 19- Comments (chief complaint) Type 2 diabetes mellitus with hypoglycemia without coma Apr-2 0 Ricci Metzger. [address] [place] [address], [id number], [place]. tel:[phone] Referring Provider: Domenica Wynne, [address] [place] [address], [address]. tel:[phone] Telehealth Error OFFICE/OUTPA TIENT VISIT [facility], [address] [place] [address] [place], [place], [id number], [place] tel:[phone] [facility] Follow Up of Hospital (chief complaint)COV ID 19- Comments (chief complaint)severo betes (chief complaint) Type 2 diabetes mellitus with hypoglycemia without coma Apr-1 0 Ricci Metzger. [address] [place] [address], [id number], [place]. tel:[phone] Referring Provider: Domenica Wynne, [address] [place] [address], [address]. tel:[phone] [facility], [address] [place] [address] [place], [place], [id number], [place] tel:[phone] [facility] No Information Apr-0 - 0 Ricci Metzger. [address] [place] [address], [id number], [place]. tel:[phone] OFFICE/OUTPA TIENT VISIT [facility], [address] [facility] , [place], [place], [id number], [place] tel:[phone] [facility] Leg Pain/Swelling (chief complaint) Pain in right legEdemaType 2 diabetes mellitus with hypoglycemia without coma Apr-0 3-202 0 Galileo Augustin. [address] [place] [address], [id number], [place]. tel:[phone] Referring Provider: Demetria Pastor, [address] [place] [address], [address]. tel:[phone] Telehealth OFFICE/OUTPA TIENT VISIT [facility], [address] [place], [place], [id number], [place] tel:[phone] [facility] ER f/up (chief complaint)severo betes (chief complaint) Diabetes due to underlying condition w hypoglycemia w/o coma Mar-3 0-202 0 Ricci Metzger. [address] [place] [address], [id number], [place]. tel:[phone] Referring Provider: Domenica Wynne, [address] [place] [address], [address]. tel:[phone] OFFICE/OUTPA TIENT VISIT [facility], [address] [place] [address], [id number], [place] tel:[phone] [facility] Schizoaffect alessandra disorder, bipolar typeIntermit tent explosive disorder Mar-3 0-202 0 Michelle Yang. [address] [place] [address], [id number], [place]. tel:[phone] Referring Provider: Celia Briseno, [address] [place], [address]. tel:[phone] [facility], [address] [facility] [place], [place], [id number], [place] tel:[phone] [facility] Schizoaffect alessandra disorder, bipolar typeIntermit tent explosive disorder Mar-2 4-202 0 Michelle Yang. [address] [place] [address], [id number], [place]. tel:[phone] TRANS CARE MGMT [address] [facility], [address] [place] [address] [place], [place], [id number], [place] tel:[phone] [facility] Follow Up (chief complaint)dep ression (chief complaint) Body mass index (BMI) 40.0-44.9, adultMajor depressive disorder, recurrent, moderateType 2 diabetes mellitus without complication sEncounter for general adult medical exam w abnormal findings Jan-2 0 Ricci Metzger. [address] [place] [address], [id number], [place]. tel:[phone] Referring Provider: Domenica Wynne, [address] [place] [address], [address]. tel:[phone] [facility], [address] [place] [address] [place], [place], [id number], [place] tel:[phone] [facility] Schizoaffect alessandra disorder, bipolar typeIntermit tent explosive disorder 0 Michelle Yang. [address] [place] [address], [id number], [place]. tel:[phone] OFFICE/OUTPA TIENT VISIT EST [facility], [address] [place] [address] [place], [place], [id number], [place] tel:[phone] [facility] puncture (chief complaint) Encounter for immunization Jan- 0 Cooper June. [address] [place] [address], [id number], [place]. tel:[phone] Referring Provider: Shaylee Gamboa, [address] [place] [address], [address]. tel:[phone] PSYTX PT&/FAMILY [address] [facility], [address] [place] [address] [place], [place], [id number], [place] tel:[phone] [facility] Schizoaffect alessandra disorder, bipolar typeIntermit tent explosive disorder Jan- 0 Heather Hay. [address] [place], [place], [id number], [place]. tel:[phone] Referring Provider: Bharti Leo, [address] [place] [address], [address]. tel:[phone] NURSE ENCOUNTER, LICENSED [facility], [address] [facility] , [place], [place], [address], [place] tel:[phone] [facility] Other mcfp (current) drug therapy Jan-0 0 Michelle Yang. [address] [place] [address], [id number], [place]. tel:[phone] Referring Provider: Celia Briseno, [address] [place] [address], [address]. tel:[phone] OFFICE/OUTPA TIENT VISIT EST [facility], [address] [facility] , [place], [place], [id number], tel:[phone] [facility] Schizoaffect alessandra disorder, bipolar typeIntermit tent explosive disorder 0 Michelle Yang. [address] [place] [address], [id number], [place]. tel:[phone] Referring Provider: Celia Briseno, [address] [place] [address], [address]. tel:[phone] [facility], [address] [facility] , [place], [place], [id number], tel:[phone] [facility] Schizoaffect alessandra disorder, bipolar typeIntermit tent explosive disorder 0 Tello Marie. . PSYTX PT&/FAMILY [address] [facility], [address] [facility] [place], [place], [id number], [place] tel:[phone] [facility] Schizoaffect alessandra disorder, bipolar typeIntermit tent explosive disorder 0 Heather Hay. [address] [place] [address], [id number], [place]. tel:[phone] Referring Provider: Bharti Leo, [address] [place] [address], [address]. tel:[phone] TRANS CARE MGMT [address] [facility], [address] [place] [address] [place], [place], [id number], tel:[phone] [facility] hospital f/u (chief complaint)severo betes (chief complaint)abd ominal pain (chief complaint) Diarrhea, unspecifiedG astroenterit isOther specified DM with hypoglycemia without coma 0 Ricci Metzger. [address] [place] [address], [id number], [place]. tel:[phone] Referring Provider: Domenica Wynne, [address] [place] [address], [address]. tel:[phone] [facility], [address] [place] [address] [place], [place], [id number], tel:[phone] [facility] Dietary counseling and surveillance Type 2 diabetes mellitus without complication sMixed hyperlipidem ia 0 Ping Waddell. [address] [place] [address] [place], [place], [id number], [place]. tel:[phone] Referring Provider: Domenica Wynne, [address] [place] [address], [address]. tel:[phone] OFFICE/OUTPA TIENT NURSE VISIT [facility], [address] [place] [address], [id number], tel:[phone] [facility] Hepatitis B vaccine (chief complaint) Encounter for immunization 0 Ricci Metzger. [address] [place] [address], [id number], [place]. tel:[phone] Referring Provider: Domenica Wynne, [address] [place] [address], [address]. tel:[phone] OFFICE/OUTPA TIENT VISIT [facility], [address] [place] [address] [place], [place], [id number], [place] tel:[phone] [facility] 3 month lab f/u (chief complaint)kne e pain (chief complaint)severo betes (chief complaint)dep ression (chief complaint) Type 2 diabetes mellitus without complication sEssential (primary) hypertension Schizoaffect alessandra disorder, bipolar typeHyperlip idemia 9 Ricci Meztger. [facility] [place], [place], [id number], [place]. tel:[phone] Referring Provider: Domenica Wynne, [address] [place] [address], [address]. tel:[phone] NURSE ENCOUNTER, LICENSED 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 [address] [place] [address], [id number], [place]. tel:[phone] Referring Provider: Celia Briseno, [address] [place] [address], [address]. tel:[phone] OFFICE/OUTPA TIENT VISIT EST [facility], [address] [place] [address], [id number], [place] tel:[phone] [facility] Schizoaffect alessandra disorder, bipolar typeIntermit tent explosive disorder 9 Michelle Yang. [facility] [place], [place], [address], [place]. tel:[phone] Referring Provider: Celia Briseno, [address] [place] [address], [address]. tel:[phone] NURSE ENCOUNTER, LICENSED [facility], [address] [place] [address], [id number], [place] tel:[phone] [facility] Essential (primary) hypertension Type 2 diabetes mellitus with hypoglycemia without comaEncntr screen for infections w sexl mode of transmissEnc ounter for screening for other viral diseases 9 Ricci Metzger. [address] [place], [place], [id number], [place]. tel:[phone] Referring Provider: Domenica Wynne, [address] [place] [address], [address]. tel:[phone] PSYTX PT&/FAMILY [address] [facility], [address] [facility] , [place], [place], [id number], [place] tel:[phone] [facility] Schizoaffect alessandra disorder, bipolar typeIntermit tent explosive disorder 9 Heather Hay. [address] [place], [place], [id number], [place]. tel:[phone] Referring Provider: Bharti Leo, [address] [place] [address], [address]. tel:[phone] NURSE ENCOUNTER, LICENSED [facility], [address] [place] [address] [place], [place], [id number], [place] tel:[phone] [facility] Hep B Vaccine (chief complaint) Encounter for immunization 9 Ricci Metzger. [address] [place] [address], [id number], [place]. tel:[phone] Referring Provider: Domenica Wynne, [address] [place] [address], [address]. tel:[phone] [facility], [address] [facility] [place], [place], [address], [place] tel:[phone] [facility] Type 2 diabetes with hyperglycemi a Ping Doverri. [address] [place] [address], [id number], [place]. tel:[phone] Referring Provider: Domenica Wynne, [address] [place] [address], [address]. tel:[phone] PSYTX PT&/FAMILY [address] [facility], [address] [facility] [place], [place], [address], [place] tel:[phone] [facility] Schizoaffect alessandra disorder, bipolar typeIntermit tent explosive disorder 9 Heather Hay. [address] [place], [place], [address], [place]. tel:[phone] Referring Provider: Bharti Leo, [address] [place], [address]. tel:[phone] OFFICE/OUTPA TIENT VISIT EST [facility], [address] [facility] , [place], [place], [id number], [place] tel:[phone] [facility] Schizoaffect alessandra disorder, bipolar typeIntermit tent explosive disorder 9 Michelle Yang. [address] [place] [address], [id number], [place]. tel:[phone] Referring Provider: Celia Briseno, [address] [place] [address], [address]. tel:[phone] PSYTX PT&/FAMILY [address] [facility], [address] [facility] [place], [place], [id number], [place] tel:[phone] [facility] Major depressive disorder, recurrent, moderateInte rmittent explosive disorderMode rate intellectual disabilities 9 Heather Hay. [address] [place] [address], [id number], [place]. tel:[phone] Referring Provider: Bharti Leo, [address] [place] [address], [address]. tel:[phone] [facility], [address] [facility] [place], [place], [id number], tel:[phone] [facility] Dental caries, unspecifiedE ncounter for dental exam and cleaning w/o abnormal findings 9 Sj Rowe. [facility]8 [place], [place], [address], [place]. tel:[phone] PSYTX PT&/FAMILY [address] [facility], [address] [facility] [place], [place], [id number], [place] tel:[phone] [facility] Type 2 diabetes mellitus without complication sMajor depressive disorder, recurrent, moderateInte rmittent explosive disorderMode rate intellectual disabilities 9 Heather Hay. [address] [place] [address], [id number], [place]. tel:[phone] Referring Provider: Bharti Leo, [address] [place], [address]. tel:[phone] NURSE ENCOUNTER, LICENSED [facility], [address] [place] [address] [place], [place], [address], [place] tel:[phone] [facility] flu vaccine (chief complaint) Encounter for immunization 9 Ricci Metzger. [address] [place] [address], [id number], [place]. tel:[phone] Referring Provider: Domenica Wynne, [address] [place] [address], [address]. tel:[phone] OFFICE/OUTPA TIENT VISIT EST [facility], [address] [place] [address] [place], [place], [id number], [place] tel:[phone] [facility] sinusitis (chief complaint) Pharyngitis 9 Ricci Metzger. [address] [place] [address], [id number], [place]. tel:[phone] Referring Provider: Domenica Wynne, [address] [place] [address], [address]. tel:[phone] [facility], [address] [place] [address] [place], [place], [address], [place] tel:[phone] [facility] Type 2 diabetes mellitus without complication s 9 Ping Waddell. [address] [place] [address] [place], [place], [address], [place]. tel:[phone] Referring Provider: Domenica Wynne, [address] [place] [address], [address]. tel:[phone] OFFICE/OUTPA TIENT VISIT EST [facility], [address] [place] [address] [place], [place], [id number], [place] tel:[phone] [facility] Schizoaffect alessandra disorder, bipolar typeAdjustme nt disorder with mixed anxiety and depressed moodIntermit tent Explosive DisorderType 2 diabetes with hyperglycemi a 9 Michelle Yang. [facility] [place], [place], [id number], [place]. tel:[phone] Referring Provider: Celia Briseno, [facility]8 [place], [address]. tel:[phone] OFFICE/OUTPA TIENT VISIT [facility], [address] [facility] [place], [place], [id number], tel:[phone] [facility] internal transfer (chief complaint)severo betes (chief complaint)hyp ertension (chief complaint)leilani ght gain (chief complaint)dep ression (chief complaint)dony ng (chief complaint) Type 2 diabetes mellitus without complication sEssential (primary) hypertension Mixed hyperlipidem iaSchizoaffe ctive disorder, bipolar typeBody mass index (BMI) 45.0-49.9, adult 9 Ricci Metzger. [address] [place] [address], [id number], . tel:[phone] Referring Provider: Domenica Wynne, [address] [place] [address], [address]. tel:[phone] OFFICE/OUTPA TIENT VISIT [facility], [address] [facility] [place], [place], [address], [place] tel:[phone] [facility] Schizoaffect alessandra disorder, bipolar typeAdjustme nt disorder with mixed anxiety and depressed moodIntermit tent Explosive DisorderType 2 diabetes with hyperglycemi a 9 Michelle Yang. [address] [place] [address], [id number], [place]. tel:[phone] Referring Provider: Celia Briseno, [address] [place], [address]. tel:[phone] OFFICE/OUTPA TIENT VISIT [facility], [address] [facility] [place], [place], [address], [place] tel:[phone] [facility] follow up (chief complaint)ear cleaning (chief complaint) Type 2 diabetes mellitus with hypoglycemia without comaBilatera l wax in ears 9 Jasmyne Marcial. [address], [place], [place], [address], [place]. tel:[phone] Referring Provider: Aggie Powell, [address], [place], [address]. tel:[phone] OFFICE/OUTPA TIENT VISIT EST [facility], [address] [facility] , [place], [place], [id number], [place] tel:[phone] [facility] shelter physical (chief complaint) Body mass index (BMI) 45.0-49.9, [facility]En[facility] for other general examinationO ther mcfp (current) drug therapyEncou nter for screening for respiratory tuberculosis 9 Jasmyne Marcial. [address], [address], [place]. tel:[phone] Referring Provider: Aggie Powell, [address], [place], [address]. tel:[phone] NURSE ENCOUNTER, LICENSED 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 [address] [place], [place], [address], [place]. tel:[phone] Referring Provider: Celia Briseno, [address] [place], [address]. tel:[phone] OFFICE/OUTPA TIENT VISIT EST [facility], [address] [facility] , [place], [place], [address], [place] tel:[phone] [facility] Type 2 diabetes with hyperglycemi aAdjustment disorder with mixed anxiety and depressed moodIntermit tent Explosive DisorderSchi zoaffective disorder, bipolar type 9 Michelle Yang. [address] [place], [place], [address], [place]. tel:[phone] Referring Provider: Celia Briseno, [address] [place], [address]. tel:[phone] [facility], [address] [facility] , [place], [place], [id number], [place] tel:[phone] [facility] Encounter for dental exam and cleaning w abnormal findingsDepo sits [accretions] on teeth 9 Sj Rowe. [address] [place], [place], [id number], [place]. tel:[phone] Consulting Provider: Chastity Mackenzie, [address] [place] [address], [address]. tel:[phone] OFFICE/OUTPA TIENT VISIT EST [facility], [address] [facility] , [place], [place], [address], [place] tel:[phone] [facility] Type 2 diabetes with hyperglycemi aIntermitten t Explosive DisorderSchi zoaffective disorder, bipolar type 9 Michelle Yang. [address] [place] [address], [id number], [place]. tel:[phone] Referring Provider: Celia Briseno, [address] [place] [address], [address]. tel:[phone] PSYTX PT&/FAMILY [address] [facility], [address] [facility] , [place], [place], [address], [place] tel:[phone] [facility] Moderate intellectual disabilities Intermittent Explosive DisorderMajo r depressive disorder, recurrent, moderate 9 Heather Hay. [address] [place] [address], [id number], [place]. tel:[phone] Referring Provider: Bharti Leo, [address] [place] [address], [address]. tel:[phone] [facility], [address] [facility] , [place], [place], [id number], [place] tel:[phone] [facility] LAB and BP Check (chief complaint) Hyperlipidem iaHypertensi onOther specified abnormal findings of blood chemistry 9 Jasmyne Marcial. [address], [place], [place], [id number], [place]. tel:[phone] Referring Provider: Aggie Powell, [address], [place], [address]. tel:[phone] OFFICE/OUTPA TIENT VISIT EST [facility], [address] [facility] , [place], [place], [id number], [place] tel:[phone] [facility] diabetes (chief complaint)Hyp ertension (chief complaint)hyp erlipidemia (chief complaint) Type 2 diabetes with hyperglycemi aHypertensio nHyperlipide miaBilateral wax in ears March-2 0-201 9 Jasmyne Marcial. [address], [place], [place], [address], [place]. tel:[phone] Referring Provider: Aggie Powell, [address], [place], [address]. tel:[phone] OFFICE/OUTPA TIENT VISIT EST [facility], [address] [facility] , [place], [place], [address], [place] tel:[phone] [facility] Moderate intellectual disabilities Intermittent Explosive DisorderMajo r depressive disorder, recurrent, moderate May-0 1-201 9 Michelle Yang. [address] [place] [address], [id number], [place]. tel:[phone] Referring Provider: Celia Briseno, [address] [place] [address], [address]. tel:[phone] PSYCH DIAGNOSTIC EVALUATION [facility], [address] [facility] [place], [place], [address], [place] tel:[phone] [facility] Moderate intellectual disabilities Intermittent Explosive DisorderMajo r depressive disorder, recurrent, moderate Apr-0 8-201 9 Heather Bharti. [address] [place] [address], [id number], [place]. tel:[phone] OFFICE/OUTPA TIENT VISIT EST [facility], [address] [facility] [place], [place], [address], [place] tel:[phone] [facility] Schizoaffect alessandra disorder, bipolar typeModerate intellectual disabilityIn termittent Explosive Disorder Apr- 9 Michelle Yang. [address] [place], [place], [address], [place]. tel:[phone] NURSE ENCOUNTER, LICENSED [facility], [address] [facility] , [place], [place], [address], [place] tel:[phone] [facility] Other mcfp (current) drug therapy Feb- 9 Michelle Yang. [address] [place], [place], [address], [place]. tel:[phone] OFFICE/OUTPA TIENT VISIT EST [facility], [address] [facility] , [place], [place], [address], [place] tel:[phone] [facility] congested (chief complaint)sor e throat (chief complaint) Upper respiratory infection 9 Jasmyne Marcial. [address], [place], [place], [address], [place]. tel:[phone] PSYCH DIAG EVAL W/MED SRVCS [facility], [address] [facility] , [place], [place], [address], [place] tel:[phone] [facility] Intermittent Explosive DisorderMode rate intellectual disabilitySc hizoaffectiv e disorder, bipolar typeAdjustme nt disorder with depressed mood 9 Michelle Yang. [address] [place], [place], [address], [place]. tel:[phone] [facility], [address] [facility] , [place], [place], [address], [place] tel:[phone] [facility] Intermittent Explosive DisorderMode rate intellectual disabilitySc hizoaffectiv e disorder, bipolar type 9 Michelle Zepedahnaz. [address] [place], [place], [address], [place]. tel:[phone] NURSE ENCOUNTER, LICENSED [facility], [address] [facility] [place], [place], [address], [place] tel:[phone] [facility] BP Check and labs (chief complaint) Hypertension Type 2 diabetes with hyperglycemi a 9 Jasmyne Marcial. [address], [place], [place], [address], [place]. tel:[phone] OFFICE/OUTPA TIENT VISIT EST [facility], [address] [facility] , [place], [place], [address], [place] tel:[phone] [facility] diabetes (chief complaint)ear wax in ears (chief complaint) Type 2 diabetes with hyperglycemi aModerate intellectual disabilityOt her termite exterminator helper (current) drug therapyBilat eral wax in ears 9 Jasmyne Marcial. [address], [place], [place], [address], [place]. tel:[phone] NURSE ENCOUNTER, LICENSED [facility], [address] [facility] , [place], [place], [address], [place] tel:[phone] [facility] flu shot (chief complaint) Encounter for immunization 8 Jasmyne Marcial. [address], [address], [place]. tel:[phone] NURSE ENCOUNTER, LICENSED [facility], [address] [facility] , [place], [place], [address], [place] tel:[phone] [facility] Blood pressure check (chief complaint) Hypertension 8 Jasmyne Marcial. [address] [address], [address], [place]. tel:[phone] OFFICE/OUTPA TIENT VISIT EST [facility], [address] [facility] , [place], [place], [address], [place] tel:[phone] [facility] Hypertension (chief complaint) Hypertension 2 8 Jasmyne Marcial. [address] [address], [address], [place]. tel:[phone] PSYTX PT&/FAMILY [address] [facility], [address] [facility] , [place], [place], [address], [place] tel:[phone] [facility] Intermittent Explosive DisorderMode rate intellectual disabilitySc hizoaffectiv e disorder, bipolar type 8 Heather Hay. [address] [place], [place], [address], [place]. tel:[phone] OFFICE/OUTPA TIENT VISIT EST [facility], [address] [facility] , [place], [place], [address], [place] tel:[phone] [facility] ER f/u (chief complaint)Ear lavage (chief complaint)leilani ght loss (chief complaint) FaintingType 2 diabetes with hyperglycemi aBilateral wax in ears Aug- 8 Nold Aggie. [address], [address], [place]. tel:[phone] [facility], [address] [facility] [place], [place], [address], [place] tel:[phone] [facility] No Information 8 Nold Aggie. [address], [address], [place]. tel:[phone] NURSE ENCOUNTER, LICENSED [facility], [address] [facility] [place], [place], [address], [place] tel:[phone] [facility] BP Check (chief complaint) Hypertension Jul-2 8 Nold Aggie. [address] [address], [address], [place]. tel:[phone] OFFICE/OUTPA TIENT VISIT EST [facility], [address] [facility] [place], [place], [address], [place] tel:[phone] [facility] hypertension (chief complaint)Kno ts behind both ears (chief complaint)TB test (chief complaint) Hypertension Lymphadenopa thyEncounter for screening for respiratory TB Jul- 8 Nold Aggie. [address], [place], [place], [address], [place]. tel:[phone] PSYTX PT&/FAMILY [address] [facility], [address] [facility] [place], [place], [address], [place] tel:[phone] [facility] Intermittent Explosive DisorderMode rate intellectual disabilitySc hizoaffectiv e disorder, bipolar type Sep- 8 Heather Hay. [address] [place], [place], [address], [place]. tel:[phone] NURSE ENCOUNTER, LICENSED 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, [address] [facility] [place], [place], [address], [place] tel:[phone] [facility] Partial loss of teeth, unspecified cause, class IV 8 Sj Rowe. [address] [place], [place], [address], [place]. tel:[phone] [facility], [address] [facility] [place], [place], [address], [place] tel:[phone] [facility] Encounter for dental exam and cleaning w abnormal findings 8 Sj Rowe. [address] [place] [address], [id number], [place]. tel:[phone] OFFICE/OUTPA TIENT VISIT EST [facility], [address] [facility] , [place], [place], [address], [place] tel:[phone] [facility] Follow Up of HTN (chief complaint)PPD (chief complaint)severo betes (chief complaint) Hypertension Encounter for screening for respiratory TBType 2 diabetes with hyperglycemi a 8 Jasmyne Marcial. [address], [place], [place], [address], [place]. tel:[phone] PSYTX PT&/FAMILY [address] [facility], [address] [facility] , [place], [place], [address], [place] tel:[phone] [facility] Intermittent Explosive DisorderMode rate intellectual disabilitySc hizoaffectiv e disorder, bipolar type 8 Heather Hay. [address] [place], [place], [address], [place]. tel:[phone] OFFICE/OUTPA TIENT VISIT EST [facility], [address] [facility] [place], [place], [address], [place] tel:[phone] [facility] Adjustment disorder with mixed anxiety and depressed moodADHDInte rmittent Explosive DisorderMode rate intellectual disabilitySc hizoaffectiv e disorder, bipolar type 8 No Information OFFICE/OUTPA TIENT VISIT EST [facility], [address] [facility] , [place], [place], [address], [place] tel:[phone] [facility] Er follow up (chief complaint)severo betic compression sock (chief complaint) Dehydration 0- 8 Jasmyne Marcial. [address], [place], [place], [address], [place]. tel:[phone] PSYTX PT&/FAMILY [address] [facility], [address] [facility] , [place], [place], [address], [place] tel:[phone] [facility] Adjustment disorder with mixed anxiety and depressed moodADHDInte rmittent Explosive DisorderMode rate intellectual disabilitySc hizoaffectiv e disorder, bipolar type 8 Heather Hay. [address] [place] [address], [address], [place]. tel:[phone] [facility], [address] [facility] , [place], [place], [address], [place] tel:[phone] [facility] Adjustment disorder with mixed anxiety and depressed moodADHDInte rmittent Explosive DisorderMode rate intellectual disabilitySc hizoaffectiv e disorder, bipolar type [address] [facility], [address] [facility] , [place], [place], [address], [place] tel:[phone] [facility] Dental caries, unspecified 8 Sj Rowe. [address] [place] [address], [address], [place]. tel:[phone] PSYTX PT&/FAMILY [address] [facility], [address] [facility] , [place], [place], [address], [place] tel:[phone] [facility] Adjustment disorder with mixed anxiety and depressed moodADHDInte rmittent Explosive DisorderMode rate intellectual disabilitySc hizoaffectiv e disorder, bipolar type 0 8 Heather Bharti. [address] [place], [place], [address], [place]. tel:[phone] OFFICE/OUTPA TIENT VISIT [facility], [address] [facility] , [place], [place], [address], [place] tel:[phone] [facility] Adjustment disorder with mixed anxiety and depressed moodADHDInte rmittent Explosive DisorderMode rate intellectual disabilitySc hizoaffectiv e disorder, bipolar type Feb- [address] [facility], [address] [facility] , [place], [place], [address], [place] tel:[phone] [facility] Encounter for dental exam and cleaning w abnormal findingsDepo sits [accretions] on teeth 8 Sj Jae. [address] [place], [place], [address], [place]. tel:[phone] OFFICE/OUTPA TIENT VISIT [facility], [address] [facility] , [place], [place], [address], [place] tel:[phone] [facility] diabetes (chief complaint)hyp erlipidemia (chief complaint) Type 2 diabetes with hyperglycemi aHypertensio nHyperlipide lamar 8 Jasmyne Marcial. [address], [place], [place], [address], [place]. tel:[phone] OFFICE/OUTPA TIENT VISIT [facility], [address] [facility] , [place], [place], [address], [place] tel:[phone] [facility] Needs hearing test (chief complaint)Isra vo annual paperwork for home completed (chief complaint) Hearing lossPartial loss of teeth, unspecified cause, class I 8 Jasmyne Marcial. [address], [address], [place]. tel:[phone] [facility], [address] [facility] [place], [place], [address], [place] tel:[phone] [facility] No Information Feb-0 8 Jasmyne Marcial. [address], [address], [place]. tel:[phone] OFFICE/OUTPA TIENT VISIT EST [facility], [address] [facility] , [place], [place], [address], [place] tel:[phone] 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 [address], [place], [place], [address], [place]. tel:[phone] OFFICE/OUTPA TIENT VISIT [facility], [address] [facility] , [place], [place], [address], [place] tel:[phone] [facility] Intermittent Explosive DisorderMode rate intellectual disabilitySc hizoaffectiv e disorder, bipolar type 8 No Information PSYCH DIAGNOSTIC EVALUATION [facility], [address] [facility] , [place], [place], [address], [place] tel:[phone] [facility] Major depressive disorder, recurrent, unspecified 8 Heatherwoo Hay. [address] [place] [address], [address], [place]. tel:[phone] NURSE ENCOUNTER LICENSED W/INJECTION [facility], [address] [facility] , [place], [place], [address], [place] tel:[phone] [facility] Schizoaffect alessandra disorder, bipolar type 8 No Information OFFICE/OUTPA TIENT VISIT [facility], [address] [facility] , [place], [place], [address], [place] tel:[phone] [facility] Schizoaffect alessandra disorder, bipolar typeIntermit tent Explosive DisorderADHD Adjustment disorder with mixed anxiety and depressed moodType 2 diabetes with hyperglycemi aOther mcfp (current) drug therapy 8 No Information OFFICE/OUTPA TIENT VISIT [facility], [address] [facility] , [place], [place], [address], [place] tel:[phone] [facility] hosp f/u dehydration (chief complaint) Dehydration 8 Notracee Marcial. [address] [address], [address], [place]. tel:[phone] OFFICE/OUTPA TIENT VISIT [facility], [address] [facility] , [place], [place], [address], [place] tel:[phone] [facility] Hospital follow up (chief complaint) DehydrationF aintingType 2 diabetes w/ hyperglycemi a 8 Notracee Marcial. [address] [address], [address], [place]. tel:[phone] OFFICE/OUTPA TIENT VISIT [facility], [address] [facility] , [place], [place], [address], [place] tel:[phone] [facility] sore throat (chief complaint) PharyngitisD ysphagia 7 Notracee Marcial. [address] [address], [address], [place]. tel:[phone] OFFICE/OUTPA TIENT VISIT [facility], [address] [facility] , [place], [place], [address], [place] tel:[phone] [facility] sore throat (chief complaint) PharyngitisC ough 7 Notracee Marcial. [address] [address], [address], [place]. tel:[phone] [facility], [address] [facility] , [place], [place], [address], [place] tel:[phone] [facility] Schizoaffect alessandra disorder, bipolar typeIntermit tent Explosive DisorderADHD Adjustment disorder with mixed anxiety and depressed moodType 2 diabetes with hyperglycemi a [address] [facility], [address] [facility] , [place], [place], [address], [place] tel:[phone] [facility] Schizoaffect alessandra disorder, bipolar typeADHDType 2 diabetes with hyperglycemi aIntermitten t Explosive DisorderAdju stment disorder with mixed anxiety and depressed mood 7 No Information OFFICE/OUTPA TIENT VISIT [facility], [address] [facility] , [place], [place], [address], [place] tel:[phone] [facility] bilat ear pain, dark drainage (chief complaint) Allergy due to pollen Jasmyne Marcial. [address] [address], [address], [place]. tel:[phone] NURSE ENCOUNTER, LICENSED [facility], [address] [facility] , [place], [place], [address], [place] tel:[phone] [facility] PPD Read (chief complaint) Encounter for screening for respiratory TB Jasmyne Marcial. [address], [place], [place], [address], [place]. tel:[phone] PREV VISIT EST AGE 17-[address] [facility], [address] [facility] , [place], [place], [address], [place] tel:[phone] [facility] Yearly physical (chief complaint)com fort of home would like labs and tb with a physical/ (chief complaint)Mil d intellectual disabiliti (chief complaint)hyp erlipidemia (chief complaint)severo betes (chief complaint) Type 2 diabetes with hyperglycemi aHyperlipide miaEncounter for screening for respiratory TBObesityEnc ounter for other general examination Jasmyne Marcial. [address], [place], [place], [address], [place]. tel:[phone] OFFICE/OUTPA TIENT VISIT EST [facility], [address] [facility] , [place], [place], [address], [place] tel:[phone] [facility] Adjustment disorder with mixed anxiety and depressed moodADHDMode rate intellectual disabilityIn termittent Explosive DisorderSchi zophrenia, unspecifiedS chizoaffecti ve disorder, bipolar type No Information OFFICE/OUTPA TIENT VISIT EST [facility], [address] [facility] , [place], [place], [address], [place] tel:[phone] [facility] edema BLE (chief complaint) EdemaChest pain Jasmyne Marcial. [address], [place], [place], [address], [place]. tel:[phone] [facility], [address], [place], [place], [address], [place] tel:[phone] [facility] No Information 0 8-201 7 Nold Aggie. [address], [place], [place], [address], [place]. tel:[phone] [facility], [address], [place], [place], [address], [place] tel:[phone] [facility] No Information 1-190 0 Nold Aggie. [address], [place], [place], [address], [place]. tel:[phone] Family History Family Member Type Diagnosis Age [...] Record Payers Payer name Insurance type Covered green party ID Authoriza tion(s) [employer] [place] [id number] [id number] [employer] [id number] [id number] [employer] [id number] [employer] [id number] [employer] [id number] [employer] [id number] [employer] [id number] [employer] [place] [id number] [facility] Medicare [facility] [phone] Social History Type Description Quantity Date Captured Comments Alcohol Use Details Unknown Caffeine Use Details Unknown Tobacco Use Status No Information Smoking Status No Information Sex Male Sexual Orientation Straight or heterosexual Gender Identity Male Chief Complaint And Reason For Visit No Information Reason For Referral Reason For Referral No Information Plan Of Treatment Date Type Action Status Goal Dilated eye exam. Due on Jun due Goal Tdap. Due on due Goal Td vaccine. Due on due Goal Foot exam. Due on due Goal GFR. Due on due Goal Hemoglobin A1C. Due on due Goal Urine microalbumin. Due on A due Goal Dental exam. Due on due Goal Urinalysis. Due [...] eye exam. Due on Apr due Goal Urine microalbumin. Due on due [...] due Goal Urinalysis. Due on due Goal Urine microalbumin. Due on A due Goal Tdap. Due on due Goal [...] Urine microalbumin. Due on M due Goal Influenza vaccine. Due on due Goal Depression scree lauryn. Due on due Goal ECG. Due on due Goal Urinalysis. Due on due Goal Influenza vaccine. Due on Oc due Goal Foot exam. Due on due [...] Goal Hemoglobin A1C. Due on due Goal Lipid panel. Due [...] eye exam. Due on Nov due Goal Foot exam. Due on due [...] Oct due Goal Foot exam. Due on 0 due Goal Urine microalbumin. Due on due Goal Hemoglobin A1C. Due on due Goal GFR. Due on due Goal Urinalysis. Due on due Goal Tdap. Due on due Goal Lipid panel. Due on due Goal Pneumococcal vac cine. Due on due Goal Depression scree lauryn. Due on due Goal ECG. Due on due Goal Influenza vaccine. Due on due Goal Influenza vaccine. [...] eye exam. Due on Oct due Goal GFR. Due on due Goal Td vaccine. Due on due Goal ECG. Due on due Goal Influenza vaccine. Due on due Goal Pneumococcal vac cine. Due on due Goal Urinalysis. Due on due Goal Depression scree lauryn. Due on due Goal Lipid panel. Due on due Goal Lifestyle education regardin g diet completed Goal Dietary manageme nt education, guidance, and counseling completed Goal Lifestyle education regardin g diet completed Goal Dietary manageme nt education, guidance, and counseling completed Goal Lifestyle education regardin g diet completed Goal Foot exam. Due on 0 due Goal GFR. Due on due Goal [...] Td vaccine. Due on 19 due Goal ECG. Due on due Goal [...] Dental exam. Due on 018 due Goal Urine microalbumin. Due on due [...] 9 due Goal Influenza vaccine. Due on due [...] March due Goal Foot exam. Due on 9 due Goal GFR. Due on due Goal [...] due Goal ECG. Due on due Goal ECG. Due on due Goal Urine microalbumin. Due on due Goal Dilated eye exam. Due on March due Goal Dental exam. Due on due Goal Influenza vaccine. Due on Oc due Goal Foot exam. Due on 9 due Goal GFR. Due on due Goal [...] Foot exam. Due on 9 due Goal Foot exam. Due on 9 [...] Dental exam. Due on 018 due Goal Depression scree lauryn. Due on due Goal Urine microalbumin. Due on A due Goal Foot exam. Due on 9 due Goal Dilated eye exam. Due on March due Goal ECG. Due on due Goal Influenza vaccine. Due on Oc due Goal Urine microalbumin. Due on A due Goal ECG. Due on due Goal Dilated eye exam. Due on March due Goal Depression scree lauryn. Due on due Goal Td vaccine. Due on 18 due Goal GFR. Due on due Goal Influenza vaccine. Due on Oc due Goal Foot exam. Due on 9 due Goal Tdap. Due on due Goal Dental exam. Due on 018 due Goal Depression scree lauryn. Due on [...] Goal Influenza vaccine. Due on due Goal GFR. Due [...] eye exam. Due on March due Goal Dilated eye exam. Due on [...] March due Goal Foot exam. Due on 9 [...] eye exam. Due on Feb due Goal Depression scree lauryn. Due on due Goal Urine microalbumin. Due on A due Goal Influenza vaccine. Due on Oc due Goal ECG. Due on due Goal Urinalysis. Due on 18 due Goal Hemoglobin A1C. Due on due Goal GFR. Due on due Goal Influenza vaccine. Due on Oc due Goal Pneumococcal vac cine. Due on due Goal Urine microalbumin. Due on due Goal Dilated eye exam. Due on Jan due Goal Foot exam. Due on 8 due Goal Dental exam. Due on due Goal Td vaccine. Due on 18 due Goal Lipid panel. Due on due [...] eye exam. Due on Dec due Goal GFR. Due on due Goal Td vaccine. Due on due Goal Influenza vaccine. Due on due Goal Urine microalbumin. Due on due Goal Tdap. Due on due Goal Pneumococcal vac cine. Due on due Goal Depression scree lauryn. Due on due Goal Dental exam. Due on due Goal Dilated eye exam. Due on Dec due Goal Foot exam. Due on 8 due Goal Hemoglobin A1C. Due on due Goal Lipid panel. Due on due Goal Dental exam. Due on due Goal GFR. Due on due Goal Dilated eye exam. Due on Nov due Goal Pneumococcal vac cine. Due on [...] Foot exam. Due on 8 due Goal Dilated eye exam. Due on Nov due Goal Urine microalbumin. Due on due Goal GFR. Due on due Goal Pneumococcal vac cine. Due on due Goal Tdap. Due on due Goal Depression scree lauryn. Due on due Goal Foot exam. Due on 8 due Goal Influenza vaccine. Due on due Goal Urine microalbumin. Due on due Goal Dental exam. Due on 018 due Goal GFR. Due on due Goal Pneumococcal vac cine. Due on due Goal Dilated eye exam. Due on Nov due Goal Hemoglobin A1C. Due on due Goal Td vaccine. Due on 18 due Goal Lipid panel. Due on 018 due Goal Urine microalbumin. Due on due Goal GFR. Due on due Goal Tdap. Due on due Goal Td vaccine. Due on 17 due Goal Influenza vaccine. Due on due Goal Foot exam. Due on 7 due Goal Depression scree lauryn. Due on due Goal Lipid panel. Due on due Goal Hemoglobin A1C. Due on due Goal Pneumococcal vac cine. Due on due Goal Dilated eye exam. Due on Oct due Goal Dental exam. Due on due Goal Influenza vaccine. Due on due Goal Lipid panel. Due on due Goal Dilated eye exam. [...] eye exam. Due on Sep due Goal GFR. Due on due Goal [...] Goal Foot exam. Due on due Goal Pneumococcal vac cine. Due on due Goal Depression scree lauryn. Due on due Goal Influenza vaccine. Due on due Goal GFR. Due [...] eye exam. Due on May due Goal Dental exam. Due on due [...] due Goal Tdap. Due on due Goal Tdap. Due on [...] Respironics Trilogy 100 Ventilator ordered Referral Ordered: [facility] -Psychiatry (related to Schizoaffective disorder, bipolar type) ordered Referral Referred To: [facility] Ordered: Referrals: Psychiatry. [facility]. Evaluate and treat ordered Referral Ordered: Referrals: Bariatric Surgery. Evaluate and treat ordered Referral Ordered: Referrals: Endocrinology. Evaluate and treat ordered Referral Ordered: Referrals: Diabetes Self Mangement Education. Consult Appointment date/timeframe: 08/12/2019 ordered Referral Ordered: Patrol Supervisor (related to Type 2 diabetes w/ hyperglycemia) ordered Referral Ordered: Referrals: Patrol Supervisor. Consult ordered Future Order: Lab Order Microalb [...] we could find indicated no previous findings. Hospital f/u Hyperosmolar hyp erglycemic state. He had started refusing his insulin 3 to 4 days prior to that. He was admitted to [facility] with a blood sugar greater than 600 on 01/23/2021 and was discharged on 01/25/2021. He states he is not taking his medication and has no plans to decline in the future. Follow Up of depression There is improvement of initial symptoms. The patient presents with anxious/fearful thoughts, compulsive thoughts, depressed mood, excessive worry and fatigue but denies difficulty concentrating. The Follow Up of depression is aggravated by thinking. The patient's relieving factors are talking to someone. Chest pain The patient pres ents with [...] sweating. Continues to follow with endo at [facility].. depression The patient does not present with fatigue. The depression is associated with urinary frequency. The patient denies any headache and weight gain. Additional information: working with psychiatry. hypertension It is currently stable. Risk factors include age over age 60, family history HTN, gout or CAD, male gender and obesity. Pertinent negatives include chest pain, dyspnea, fatigue, headache and irregular heartbeat/palpitations. Additional information: Had f/u scheduled tomorrow and wanted to do f/u today hospital f/u was hospitalized for covid- no symptoms currently diabetes The problem is g etting worse. [...] nocturia, polydipsia, weight gain and weight loss. Chest pain The patient pres ents with [...] drainage and sore throat. NV: TB Test hyperlipidemia Risk factors inc lude age over [...] heartbeat/palpitations, nausea, transient weakness, tremor and vomiting. diabetes The problem is g etting worse. [...] nocturia, polydipsia, weight gain and weight loss. Physical Men's preventive visit. Patient Health Questionnaire (PHQ-2) is negative. Patient is on a diabetic diet. He has weight loss. Marital status: single. Relevant history is negative for passive smoke exposure, passive vaping exposure, alcohol use. He is a former tobacco user. DRVS A1C, Flu and MAW V. Pt also needs a TB test administered today. diabetes Risk factors inc lude: obesity, over [...] hep b vaccine of this series/ TB HEALTH ANALYST Eye problems Onset: 3 Days. P ain [...] date in his chart. Follow Up of Depression This is a [...] and provider is in the office at [facility]. The telehealth visit lasted 9 minutes Follow Up of Diabetes Risk facto rs include: obesity, over age [age] years old and sedentary lifestyle. He Has been managed with diet, oral medications and insulin. Comorbidity: CAD. hospital fu Pt in the hospit al [...] nocturia and slow healing wounds / sores. obesity Risk factors inc lude family history [...] headache, irregular heartbeat/palpitations, nausea, tremor and vomiting. mood disorder The symptoms beg an 1 [...] and polydipsia. Pertinent negatives include hypoglycemic episodes. Follow Up of 2 Week Pt's House Sherry peck stated that the pt was under [...] home during the visit. Follow Up of Diabetes Risk facto rs [...] home during the visit. Follow Up of Diabetes Risk facto rs [...] is up to date in his chart. Hernandez The injury occur red 1 week [...] pain, change in appetite, fatigue or nausea. acute The symptoms are reported as being moderate. burn on top of right hand xs 1 week. Pt thinks infection since he says its draining diabetes The problem is s table. Risk [...] via Telephone. Follow Up of Hospital Pt's Technical Writing Lead/Mgr states that the pt was seen for [...] Leg Pain/Swelling (comments) her e today with credit risk officer for 2 day hx of bilateral [...] for suicidal ideations. Hospital Follow Up puncture hospital f/u pt went to [facility] by ambulance low bs, vomiting and diarrhea On 12/09/19. Last episode of diarrhea was last night, but still has some abdominal discomfort persisiting. . Pt says he feels much better. Still has some abdominal discomfort. Hospital dc'd metformin and lowered lantus to 30 units. diabetes Risk factors inc lude: obesity and [...] Pertinent negatives include diarrhea, dyspnea and heartburn. Hepatitis B vaccine Patient is i n clinic today for 2nd dose of hepatitis b vaccine/ tb tar heel diabetes The problem is s table. Risk [...] anosmia, bloody sinus discharge, fever and headache. joselito flu, medicare we llness internal transfer Previous Aggie Medley pt. Pt lives in a shelter with 1 room mate. Pt staff is with him today Lizabeth. Lizabeth says the kiln head house operator was not happy with pt care and [...] extremities, foot ulcers, increased fatigue and nocturia. hypertension Risk factors inc lude male gender. Pertinent negatives include chest pain, claudication, headache, transient weakness and tremor. Hospital follow up Patient was s een in the ER 2 days for hypoglycemia. His blood sugar was in the 60s and his staff administered his lantus which dumped him down and EMS was called. Dr. Mathur His life insurance underwriter consulted with him in the ER, he [...] ear cleaning ears feel full b ilaterally shelter physical Patient repo rts he is feeling [...] where very high when he was in senior living and but has been lowering since he [...] b/p is normal in the office today. ER f/u Pt states he pas sed out yesterday after eating a peanut butter sandwich and was taken to the ER. Pt states he feels fine today. His blood sugar today was 197 this am. He is not light headed and his caregiver reports he has been drinking water instead of soda pop today. Ear lavage Pt states he nee ds his ears cleaned. weight loss Additional infor mation: Dr. Mathur [...] been there. Pt states they don't. manager of information would like them assessed. Patient reports he [...] medication. 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 He [...] would like his hearing checked by an denier control operator. Patient denies difficulty hearing. hypertension Risk factors [...] Hurts to swallow. sore throat Additional infor sidion: x2 days pt denies any other symptoms. Cough. bilat ear pain, dark drainage no pain just draining and tickling the last few days bilaterally. Has been using a q-tip to clean them. PPD Read 0mm induration. no redness noted. Mild intellectual disabiliti int ermittent explosive disorder, [...] like labs and tb with a physical/ Yearly physical diabetes Risk factors inc lude: [...] of dehydration and I don't support this. edema BLE Functional Status Date Functional Assessmen [...] prior to that. He was admitted to [facility] with a blood sugar greater than 600 on 01/23/2021 and was discharged on 01/25/2021. He states he is now taking his medication and has no plans to decline in the future. Sees Dr. Wilder at [facility] endocrinology for DM management Related to Type 2 diabetes with hyperglycemia Fasting blood sugar mildly elevated today. Had recent evaluation with life insurance underwriter and no significant changes were made in [...] pain Is working with endo crinology at [facility]. States his BS have been adequately controlled [...] x3 days. As he lives in a shelter he was strongly recommended to have a rapid Covid test done today. He indicates he will go to the [place] [facility] to get a nurse visit rapid today. He is accompanied by shelter staff that indicate they will take him [...] 30-year-old male her e for physical for shelter. He has no concerns except for a [...] Is being followed by Dr. Wilder at [facility] in regards to his diabetes. He is [...] any insulin adjustments but defer to his life insurance underwriter. Related to Type 2 diabetes mellitus with hypoglycemia without coma Is being followed by Dr. Wilder at [facility] in regards to his diabetes. He is [...] any insulin adjustments but defer to his life insurance underwriter. Related to Type 2 diabetes mellitus with [...] since then. See Dr. Devonte Olmos at [facility] and will send them ER report. --has [...] to Body mass index (BMI) 45.0-49.9, adult Well-controlled on current meds. Related to Hypertension He is interested in bariatric surgery, both for weight loss as well as improvement in his diabetes control. Referral to Dr. Mckenzie Related to Obesity Was admitted again f or hypoglycemia from [...] units. He has appointment to see [facility] endocrinology in May. Dr. Mathur did consult [...] units. He has appointment to see [facility] endocrinology in May. Dr. Mathur did consult [...] running in 200's. 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 Related to Diarrhea, unspecified Sees Dr. Martinez-- work ing in coordination to help pt with weight loss. Will email his plan to ensure she is aware and assisting him with meds as much as possible that don't cause weight gain. Related to Schizoaffective disorder, bipolar type DM and cholesterol h igh. Atorva 40 to pretect against CV disease. Related to Hyperlipidemia On multiple meds, bu t wanting to [...] Priority Status Date Type 2 diabetes mellitus with hypoglycemia without coma - E11.649 Pt to keep carb intake consistent @ meals (60 g/meal) Negotiated Goal Type 2 diabetes mellitus without complications - E11.9 Pt to not skip meals. Provider Goal Type 2 diabetes mellitus without complications - E11.9 Walk 10 minutes a day. MLRD - 03/01/20: Pt reports he hasn't been walking @ all right now. MLRD07/06/20: Staff member reports she will work on this w/pt. Negotiated Goal Patient Care Teams Name Effective Dates (start - stop) Status Members No Information
[2025-06-18 22:25] VITALS: BP 132/80; PULSE 102; RESP 16; TEMP 36.4; O2SAT 98; BMI 29.0
[2025-06-18 22:30] VITALS: BP 118/83; PULSE 104; RESP 20; O2SAT 99
--- OUTSIDE RECORDS SUMMARY | 2025-06-18 22:31 | XMS_ITS | Patient Health Record ---
Author Organization [facility] Address [address] [place] [address] Care Team Providers Care Equipment Or Machinery Cleaner Name Role Phone MarlaBety theodore Primary Care Provider [phone] Allergies No Known Allergies Reason For Referral No Information Medications Medication SIG (Take, Route, Frequency, Duration) Notes Start Date End Date Status Divalproex Sodium ER 500 MG Tablet Extended Release 24 Hour @@ TAKE 4 TABLETS BY MOUTH EVERY DAY AT BEDTIME FOR MOOD STABILIZER Active Deep Sea Nasal [place] 0.65 % Solution 2 sprays in each [...] 1 tablet Orally once a day Not-Taking [place] Cough Drops 1 lozenge every 4 hours [...] GED 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 Stress is when someone feels tense, nervous, anxious, or cant sleep at night because their mind is troubled A little bit In the past year have you sp ent more than 2 nights in a row in a halfway, mcc, long term center, or juvenile correctional facility? No Are [...] Problem Type II diabetes mellitus without complication (494352215) Type 2 diabetes mellitus without complications (E11.9) Active confirmed Problem Body mass index 40+ - severely obese (627007277) Body mass index (BMI) of 40.1 to 44.9 in adult (Z68.41) Active confirmed Problem Hyperlipidaemia (55109477) Hyperlipidemia, unspecified hyperlipidemia type (E78.5) Active confirmed Problem Vitamin D deficiency (21965897) Vitamin D deficiency (E55.9) Active confirmed Problem Intermittent explosive disorder (84294411) Intermittent explosive disorder in adult (F63.81) Active confirmed Problem Sleep apnea (06305716) Sleep apnea, unspecified type (G47.30) Active confirmed Problem History of pulmonary embolus (118670019) History of pulmonary embolism (Z86.711) Active confirmed Problem Polyneuropathy due to type 2 diabetes mellitus (843749288) Diabetic polyneuropathy associated with type 2 diabetes mellitus (E11.42) Active confirmed Problem Intellectual disability (722829931) Intellectual disability (F79) Active confirmed Problem Primary hypertension (54738720) Primary hypertension (I10) Active confirmed Problem Mixed anxiety and depressive disorder (550900371) Depression with anxiety (F41.8) Active confirmed Plan Of Treatment No Information Insurance Providers Payer Name Payer Address Payer Phone Subscriber Number Group Number Insured Name Patient Relationship to Insured Coverage Start Date Coverage End Date [facility] Dual Complete [address] [place] [address] [id number] Zaire Ceja Self - patient is the insured Medicaid [address] [place] [phone] [id number] Zaire Nassar Self - patient is the insured [facility] DUAL COMPLETE [address] [address] [place] [address] [id number] Zaire Nassar Self - patient is the insured Medicaid [address] [place] [phone] [id number] Zaire Nassar Self - patient is the insured Medical (General) History Medical History History ICD Code Type 2 diabetic hypertension hyperlipidemia constipation intermittent explosive disorder anticoagulant depression nightmares pulmonary embolism Surgical History Surgery Date(Month/Year) appendectomy Hospitalization History Reason Date(Month/Year) syncope 03/2022
--- NOTE | 2025-06-18 22:36 | ECG_ITS ---
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
--- NOTE | 2025-06-18 22:37 | XRR_ITS ---
PROCEDURE INFORMATION: Exam: XR Chest Exam date and time: 06/18/2025 10:42 PM Age: 44 years old Clinical indication: Other: Syncope TECHNIQUE: Imaging protocol: Radiologic exam of the chest. Views: 1 view. COMPARISON: CR (CHEST, ) 04/27/2025 10:05 PM FINDINGS: Lungs: Unremarkable. No consolidation. Pleural spaces: Unremarkable. No pleural effusion. No pneumothorax. Heart/Mediastinum: Unremarkable. No cardiomegaly. Bones/joints: Unremarkable. XR/XR chest 1V portable [id number] IMPRESSION: No acute findings.
--- NOTE | 2025-06-18 22:37 | CTR_ITS ---
PROCEDURE INFORMATION: Exam: CT Head Without Contrast Exam date and time: 06/18/2025 10:47 PM Age: 44 years old Clinical indication: Injury or trauma; Fall; Concussion/head injury; Additional info: Syncope, fall, on thinners, passed out TECHNIQUE: Imaging protocol: Computed tomography of the head without contrast. Radiation optimization: All CT scans at this facility use at least one of these dose optimization techniques: automated exposure control; mA and/or kV adjustment per patient size (includes targeted exams where dose is matched to clinical indication); or iterative reconstruction. COMPARISON: CT head wo con* [id number] 03/27/2025 11:26 PM RADIATION DOSE METRICS: Total DLP (mGy-cm): 1142.41 FINDINGS: Brain: Normal. No hemorrhage. Unremarkable white matter. No mass effect. Cerebral ventricles: No ventriculomegaly. Paranasal sinuses: Visualized sinuses are unremarkable. No fluid levels. Mastoid air cells: Visualized mastoid air cells are well aerated. Bones: Unremarkable. No acute fracture. Soft tissues: Unremarkable. CT/CT head wo con* [id number] IMPRESSION: No acute intracranial abnormality.
[2025-06-18 23:53] VITALS: BP 129/76; PULSE 98; RESP 17; O2SAT 98
[2025-06-19] VITALS: BP 108/71; PULSE 96; RESP 18; O2SAT 97
[2025-06-19 00:10] LABS: Hematocrit 49.8 % (37-53); Hemoglobin 16.50 g/dL (11.27-16.99); Mean Corpuscular HGB Conc 33.1 g/dL (30-55); Mean Corpuscular Hemoglobin 29.6 pg (27-33); Mean Corpuscular Volume 89.4 fl (82-101); Nucleated Red Blood Cells % 0 %; Platelet Count 172 10^3/cmm (157-399); Red Blood Count 5.57 10^6/uL (3.85-5.65); White Blood Count 5.82 10^3/uL (3.29-11.43)
[2025-06-19 00:27] LABS: Troponin(5th) Baseline 8 ng/L (0-15)
[2025-06-19 00:30] VITALS: BP 132/63; PULSE 88; RESP 18; O2SAT 95
[2025-06-19 00:42] LABS: Alanine Aminotransferase 18 U/L (0-41); Albumin Level 4.2 g/dL (3.5-5.2); Alkaline Phosphatase 59 U/L (40-130); Anion Gap 16.0 (5-19); Aspartate Amino Transferase 15 U/L (0-40); Blood Urea Nitrogen 21 mg/dL (6-20); Calcium 9.7 mg/dL (8.5-10.5); Carbon Dioxide 30 mmol/L (22-29); Chloride 102 mmol/L (98-107); Creatinine Clr Calc Pharmacy 128.8012; Globulin 2.0 g/dL (1.3-4.6); Glucose 117 mg/dL (65-115); Osmolality Calculated 302 mOsm/kg (285-295); Potassium 4.0 mmol/L (3.5-5.1); Sodium 144 mmol/L (136-145); Total Protein 6.2 g/dL (6.6-8.7)
[2025-06-19 01:00] VITALS: BP 119/85; PULSE 93; RESP 17; O2SAT 94
[2025-06-19 01:31] VITALS: BP 126/82; PULSE 85; O2SAT 97
--- NOTE | 2025-06-19 06:38 | ED_ITS ---
HPI - Syncope 2 General: Chief Complaint: Syncope Stated Complaint: fall, ams Time Seen by Provider: 06/18/25 22:26 History of Present Illness: 44 year old male inmate with history of type 2 diabetes mellitus, chronic anxiety, cellulitis and recent frequent falls, currently on apixaban, was standing at a cell door when he became dizzy and collapsed at 12:35. Witnesses report ~10 minutes of unresponsiveness without shaking; aroused with ammonia inhalants. [facility] staff state vitals and finger-stick glucose were normal on scene. Patient recalls dizziness but not the fall, endorses significant situational anxiety related to upcoming court date and fdc placement. Denies chest pain, shortness of breath, focal weakness, or prgi-whzjlw-momnqcu symptoms aside from mild forehead pain. Related Data Home Medications ?Medication ?Instructions ?Recorded ?Confirmed gabapentin 300 mg capsule 300 mg PO BID 10/11/2206/09 (Neurontin) bismuth subsalicylate 262 mg/15 mL 262 mg PO Q4H PRN I ndigestion 03/16/23 06/09/25 oral suspension (Stomach Relief) acetaminophen 500 mg tablet (Pain 1,000 mg PO Q6H PRN Pain 10/24/23 06/09/25 Reliever (acetaminophen)) aspirin 81 mg tablet,delayed 81 mg PO DAILY 10/24/23 0 06/09/25 release empagliflozin 25 mg tablet 25 mg PO DAILY 10/24/2303/29 (Jardiance) atorvastatin 80 mg tablet 80 mg PO BEDTIME 12/31/23 glucose 4 gram chewable tablet 16 g PO PRN PRN LOW BLO OD SUGAR 12/31/23 06/09/25 ibuprofen 600 mg tablet 600 mg PO TID PRN Pain 12/3106/09/25 promethazine 25 mg tablet 25 mg PO Q6H PRN Nausea And 12/31/23 06/09/25 Vomiting albuterol sulfate 90 mcg/actuation 2 puff inhalation Q 4H PRN 08/05/24 06/09/25 aerosol inhaler Shortness Of Breath icosapent ethyl 1 gram capsule 2 g PO BID 08/05/2403/29 (Vascepa) loperamide 2 mg capsule 2 mg PO Q6H PRN Diarrhea 11/2806/09/25 (Anti-Diarrheal (loperamide)) vitamins A,C,A-rszm-zxqupi 4,296 1 cap PO BID 08/05/24 06/09/25 mcg-226 mg-90 mg capsule (PreserVision AREDS) cetirizine 10 mg tablet 10 mg PO DAILY PRN allergies 10/23/24 06/09/25 neomycin-bacitracn Zn-polymyx 3.5 1 applic topical ARIELLE LY PRN Skin 11/27/24 06/09/25 mg-400 unit-5,000 unit/gram top Irritation oint (Triple Antibiotic) cholecalciferol (vitamin D3) 50 50 mcg PO DAILY 06/09/25 mcg (2,000 unit) tablet nitroglycerin 0.4 mg sublingual 0.4 mg sublingual Q5M PRN 05/21/25 06/09/25 tablet Previous Rx's ?Medication ?Instructions ?Recorded omeprazole 40 mg capsule,delayed 40 mg PO DAILY #30 ca ps 04/19/24 release ondansetron 4 mg disintegrating 4 mg PO Q8H PRN nausea and 07/02/24 tablet vomiting #20 tabs menthol 10 % topical cream 1 applic topical TID PRN mu scle 09/03/24 (Biofreeze (menthol)) pain #85 grams glucagon 1 mg solution for See Rx Instructions .Route 12/17/24 injection (Glucagon Emergency Kit) .COMPLEX #1 ea apixaban 5 mg tablet (Eliquis) See Rx Instructions .Ro [place] 01/21/25 .COMPLEX #180 tabs pioglitazone 45 mg tablet See Rx Instructions .Route 0 02/23/25 .COMPLEX #30 tabs insulin lispro 100 unit/mL See Rx Instructions .Route 02/27/25 subcutaneous pen (Humalog KwikPen .COMPLEX #15 mL (U-100) Insulin) metformin 1,000 mg tablet See Rx Instructions .Route 0 02/27/25 .COMPLEX #31 tabs zonisamide 100 mg capsule See Rx Instructions .Route 0 03/02/25 .COMPLEX #62 caps tirzepatide 12.5 mg/0.5 mL See Rx Instructions .Route 04/20/25 subcutaneous pen injector .COMPLEX #2 mL (Mounjaro) diazepam 5 mg tablet 5 mg PO TID anxiety #90 tabs 05/15/25 irbesartan 75 mg tablet 75 mg PO DAILY #90 tabs 05/05 05/29 metoprolol succinate 50 mg 50 mg PO DAILY #90 tabs tablet,extended release 24 hr aripiprazole 30 mg tablet 15 mg (1/2 x 30 mg) PO BID 3 0 days 05/26/25 #30 tabs buspirone 10 mg tablet 10 mg PO BID #60 tabs divalproex 500 mg tablet,extended 2,000 mg (4 x 500 mg ) PO BEDTIME 05/26/25 release 24 hr 30 days #120 tabs venlafaxine 150 mg 300 mg (2 x 150 mg) PO QAM 3 0 days 05/26/25 capsule,extended release 24 hr #60 caps isosorbide mononitrate 30 mg 30 mg PO DAILY #30 tabs 0 06/10/25 tablet,extended release 24 hr Allergies Allergy/AdvReac Type Severity Reaction Status Date / Time No Known Allergies Allergy Verified 06/09/25 10:15 [facility] ED 2 [facility]: Medical History (Updated 06/19/25 @ 01:23 by Jose Eduardo Cortez MD) Coronary-myocardial bridge Peripheral neuropathy Type 2 diabetes mellitus Hyperlipidemia Hypertension Pulmonary embolism Other reactions to severe stress Bipolar 1 disorder Most recent episode depressed Fracture of [facility] Surgical History History of appendectomy Social History Smoking and tobacco/nicotine status: current some day tobacco/nicotine user (some vaping) e-cigarettes Alcohol intake: current Alcohol intake frequency: few times a month Substance/Drug Use: never Marital status: Single Physical Exam 2 Const: COMMON NORMALS: no acute distress, patient oriented x3 and alert HENMT: COMMON NORMALS: normocephalic and atraumatic HEAD & SCALP: n ormocephalic and atraumatic Eye: COMMON NORMALS: Equal, round and reactive pupils present, EOMs intact bilaterally and no scleral icterus PUPIL: Yes Equal, round and reactive pupils present Resp: COMMON NORMALS: normal respiratory effort and No retractions Cardio: COMMON NORMALS: regular rate, regular rhythm and No murmurs present (Cardio) RATE: regular rate RHYTHM: regular rhythm GI: COMMON NORMALS: Normal to inspection, nondistended, normoactive bowel sounds present, Soft to palpation and non-tender PALPATION: Yes Soft to palpation Neuro: COMMON NORMALS: patient oriented x3 SENSORIUM/ORIENTATION: Yes alert Skin: COMMON NORMALS: no rashes or lesions noted GENERAL SKIN EXAM: no rashes or lesions noted Course 2 Vital Signs: Vital signs: Vital Signs Temperature 97.6 F 06/18/25 22:25 Pulse Rate 85 06/19/25 01:31 Respiratory Rate 17 06/19/25 01:00 Blood Pressure 126/82 06/19/25 01:31 Pulse Oximetry 97 06/19/25 01:31 Oxygen Delivery Me thod Room Air 06/18/25 22:25 MDM - Syncope Medical Decision Making Patient remained hemodynamically stable throughout ED course. EKG is reassuring. CT brain shows no evidence of intracranial hemorrhage or skull fracture. I am uncertain of the etiology of his syncope but today I do not suspect ACS, PE, pneumonia, or any other emergent process warranting further workup at this time. He will be discharged back to fdc in stable and improved condition Lab Data 06/19/25 00:05 06/19/25 00:05 Radiology Impressions Chest X-Ray 06/18/25 22:37 IMPRESSION: No acute findings. Head CT 06/18/25 22:37 IMPRESSION: No acute intracranial abnormality. Laboratory Results WBC 5.82 10^3/uL (3.29-11.43) 06/19/25 00:05 RBC 5.57 10^6/uL (3.85-5.65) 06/19/25 00:05 Hgb 16.50 g/dL (11.27-16.99) 06/19/25 00:05 Hct 49.8 % (37-53) 06/19/25 00:05 MCV 89.4 fl (82-101) 06/19/25 00:05 MCH 29.6 pg (27-33) 06/19/25 00:05 MCHC 33.1 g/dL (30-55) 06/19/25 00:05 RDW 13.4 % (12.1-15.1) 06/19/25 00:05 Plt Count 172 10^3/cmm (157-399) 06/19/25 00:05 MPV 10.3 fL (7.4-10.4) 06/19/25 00:05 Neut % (Auto) 59.2 % 06/19/25 00:05 Lymph % (Auto) 31.4 % 06/19/25 00:05 [place] % (Auto) 7.7 % 06/19/25 00:05 Eos % (Auto) 1.0 % 06/19/25 00:05 Baso % (Auto) 0.5 % 06/19/25 00:05 Neut # (Auto) 3.44 10^3/uL (1.8-7.7) 06/19/25 00:05 Lymph # (Auto) 1.8 10^3/uL (0.8-4.8) 06/19/25 00:05 [place] # (Auto) 0.5 10^3/uL (0.2-0.9) 06/19/25 00:05 Eos # (Auto) 0.1 10^3/uL (0.0-0.8) 06/19/25 00:05 Baso # (Auto) 0.0 10^3/uL (0.0-0.1) 06/19/25 00:05 Nucleated RBC % (auto) 0 % 06/19/25 00:05 Nucleated RBCs # 0.0 /100WBC 06/19/25 00:05 Sodium 144 mmol/L (136-145) 06/19/25 00:05 Potassium 4.0 mmol/L (3.5-5.1) 06/19/25 00:05 Chloride 102 mmol/L (98-107) 06/19/25 00:05 Carbon Dioxide 30 mmol/L (22-29) H 06/19/25 00:05 Anion Gap 16.0 (5-19) 06/19/25 00:05 BUN 21 mg/dL (6-20) H 06/19/25 00:05 Creatinine 0.9 mg/dL (0.7-1.2) 06/19/25 00:05 GFR Calculation 91.3 mL/min (90-130) 06/19/25 00:05 Glucose 117 mg/dL (65-115) H 06/19/25 00:05 Calculated Osmolality 302 mOsm/kg (285-295) H 06/19/25 00:05 Calcium 9.7 mg/dL (8.5-10.5) 06/19/25 00:05 Total Bilirubin 0.4 mg/dL (0.15-1.2) 06/19/25 00:05 AST 15 U/L (0-40) 06/19/25 00:05 ALT 18 U/L (0-41) 06/19/25 00:05 Alkaline Phosphatase 59 U/L (40-130) 06/19/25 00:05 Troponin T Baseline 8 ng/L (0-15) 06/19/25 00:05 Total Protein 6.2 g/dL (6.6-8.7) L 06/19/25 00:05 Albumin 4.2 g/dL (3.5-5.2) 06/19/25 00:05 Globulin 2.0 g/dL (1.3-4.6) 06/19/25 00:05 All radiology interpretation(s) finalized by discharge EKG Data EKG 1: Interpretation: Time?6?sinus rhythm, rate of 94, no ST segment elevation or depression, no T wave inversions, QTc = 371 mild LVH. Discharge Plan Discharge Patient Disposition: Home Clinical Impression: Syncope and collapse Condition: Stable Prescriptions: No Action gabapentin [Neurontin] 300 mg capsule 300 mg PO BID omeprazole 40 mg capsule,delayed release(DR/EC) 40 mg PO DAILY Qty: 30 0RF loperamide [Anti-Diarrheal (loperamide)] 2 mg capsule 2 mg PO Q6H PRN (Reason: Diarrhea) albuterol sulfate 90 mcg/actuation HFA aerosol inhaler 2 puff inhalation Q4H PRN (Reason: Shortness Of Breath) icosapent ethyl [Vascepa] 1 gram capsule 2 g PO BID PreserVision AREDS 4,296 mcg-226 mg-90 mg capsule 1 cap PO BID Triple Antibiotic 3.5mg-400 unit- 5,000 unit/gram ointment 1 applic topical DAILY PRN (Reason: Skin Irritation) cholecalciferol (vitamin D3) 50 mcg (2,000 unit) tablet 50 mcg PO DAILY aripiprazole 30 mg tablet 15 mg PO BID 30 Days Qty: 30 1RF Rx Instructions: Take one-half tablet twice a day divalproex 500 mg tablet extended release 24 hr 2,000 mg PO BEDTIME 30 Days Qty: 120 1RF venlafaxine 150 mg capsule,extended release 24hr 300 mg PO QAM 30 Days Qty: 60 1RF buspirone 10 mg tablet 10 mg PO BID Qty: 60 1RF Rx Instructions: Take one tablet twice a day, between doses of diazepam nitroglycerin 0.4 mg tablet, sublingual 0.4 mg sublingual Q5M PRN Rx Instructions: do not exceed 3 doses per episode irbesartan 75 mg tablet 75 mg PO DAILY Qty: 90 0RF metoprolol succinate 50 mg tablet extended release 24 hr 50 mg PO DAILY Qty: 90 3RF ondansetron 4 mg tablet,disintegrating 4 mg PO Q8H PRN (Reason: nausea and vomiting) Qty: 20 0RF Glucagon Emergency Kit (human) 1 mg recon soln See Rx Instructions .ROUTE .COMPLEX Qty: 1 0RF Dose Instruction: inject 1mg SUBCUTANEOUSLY EVERY 20 MINUTES NEEDED FOR hypoglycemia UNTIL target blood sugar attained Rx Instructions: inject 1mg SUBCUTANEOUSLY EVERY 20 MINUTES NEEDED FOR hypoglycemia UNTIL target blood sugar attained Eliquis 5 mg tablet See Rx Instructions .ROUTE .COMPLEX Qty: 180 3RF Dose Instruction: TAKE 1 TABLET BY MOUTH TWICE DAILY Rx Instructions: TAKE 1 TABLET BY MOUTH TWICE DAILY pioglitazone 45 mg tablet See Rx Instructions .ROUTE .COMPLEX Qty: 30 3RF Dose Instruction: TAKE 1 TABLET BY MOUTH ONCE DAILY Rx Instructions: TAKE 1 TABLET BY MOUTH ONCE DAILY insulin lispro [Humalog KwikPen Insulin] 100 unit/mL insulin pen See Rx Instructions .ROUTE .COMPLEX Qty: 15 2RF Dose Instruction: WAITING FOR SCRIPT FOR DIRECTIONS Rx Instructions: WAITING FOR SCRIPT FOR DIRECTIONS metformin 1,000 mg tablet See Rx Instructions .ROUTE .COMPLEX Qty: 31 2RF Dose Instruction: TAKE 1 TABLET BY MOUTH ONCE DAILY Rx Instructions: TAKE 1 TABLET BY MOUTH ONCE DAILY zonisamide 100 mg capsule See Rx Instructions .ROUTE .COMPLEX Qty: 62 2RF Dose Instruction: TAKE 2 CAPSULES (200MG) BY MOUTH ONCE DAILY Rx Instructions: TAKE 2 CAPSULES (200MG) BY MOUTH ONCE DAILY Mounjaro 12.5 mg/0.5 mL pen injector See Rx Instructions .ROUTE .COMPLEX Qty: 2 5RF Dose Instruction: INJECT 12.5MG SUBCUTANEOUSLY EVERY 7 DAYS ON SUNDAY Rx Instructions: INJECT 12.5MG SUBCUTANEOUSLY EVERY 7 DAYS ON SUNDAY diazepam 5 mg tablet 5 mg PO TID Qty: 90 2RF isosorbide mononitrate 30 mg tablet extended release 24 hr 30 mg PO DAILY Qty: 30 0RF Rx Instructions: Watch for headache and cut in half if he develops this. Stop this if it gets worse or does not resolve aspirin 81 mg tablet,delayed release (DR/EC) 81 mg PO DAILY acetaminophen [Pain Reliever (acetaminophen)] 500 mg tablet 1,000 mg PO Q6H PRN (Reason: Pain) Jardiance 25 mg tablet 25 mg PO DAILY Biofreeze (menthol) 10 % cream 1 applic topical TID PRN (Reason: muscle pain) Qty: 85 0RF bismuth subsalicylate [Stomach Relief] 262 mg/15 mL suspension 262 mg PO Q4H PRN (Reason: Indigestion) atorvastatin 80 mg tablet 80 mg PO BEDTIME promethazine 25 mg tablet 25 mg PO Q6H PRN (Reason: Nausea And Vomiting) glucose 4 gram Tablet,Chewable 16 g PO PRN PRN (Reason: LOW BLOOD SUGAR) Rx Instructions: for bs lower than 60 ibuprofen 600 mg tablet 600 mg PO TID PRN (Reason: Pain) cetirizine 10 mg Tablet 10 mg PO DAILY PRN (Reason: allergies) Discharge Orders: Discharge ED (Routine); Ordered 06/19/25 Ordered By: Jose Eduardo Cortez Referrals: Bautista Ruiz MD [Primary Care Provider, Family Practice] Discharge Diet: Usual diet Discharge Activity: Increase activity as tolerated Patient Instructions: Syncope (ED), Patient Portal & Jyoti Instructions Activity Restrictions/Additional Instructions: CT of your head shows no acute injury or intracranial bleed or fracture. EKG and blood tests are reassuring. And safe resume your normal medications. If you start to feel lightheaded, please lay down to avoid harming yourself if you fall. Print Language: Chadian Coding Level of Care Code ED Central Supply Technician Supervisor for Dasha Nix
== END 2025-06-19 02:37 | disposition home or self-care (01) ==
PROVIDERS: Emergency Provider Student in an Organized Health Care Education/Training Program; PCP Family Medicine
DX: R55 Syncope and collapse (principal); Z79.01 Long term (current) use of anticoagulants; Z79.4 Long term (current) use of insulin; Z79.84 Long term (current) use of oral hypoglycemic drugs; Z79.82 Long term (current) use of aspirin; F17.290 Nicotine dependence, other tobacco product, uncomplicated; E78.5 Hyperlipidemia, unspecified; I10 Essential (primary) hypertension; E11.42 Type 2 diabetes mellitus with diabetic polyneuropathy
CPT/HCPCS: 36415; 70450; 71045; 80053; 84484; 85025; 93005; 99285; J7030; J9999